=== PATIENT | female | born 1935 | race Caucasian/White ===

== ENCOUNTER 2021-11-26 17:29 | Inpatient (IN) | payer MEDICARE, SELFPAY ==
--- NOTE | ~2021-11-26 | CT_ITS ---
EXAMINATION: CT ABDOMEN AND PELVIS WITH CONTRAST CLINICAL INFORMATION: Right upper quadrant and right lower quadrant tenderness. Fever. Biliary disease. Appy. COMPARISON: 01/22/2020 TECHNIQUE: Multidetector volumetric images were obtained from the superior aspect of the liver through the pubic symphysis following administration 85 mL of Omnipaque 350 intravenous contrast. Sagittal and coronal reformatted images were obtained on the technologist's workstation. Oral contrast: No This CT examination was performed using dose optimization techniques as appropriate, variously including the following: *Automated exposure control *Adjustment of mA and/or kV according to patient size (this includes techniques or standardized protocols for targeted exams where dose is matched to indication/reason for exam; i.e. extremities or head) *Use of iterative reconstruction technique DLP: 1050 mGy-cm FINDINGS: LUNG BASES: The visualized lung bases are unremarkable. LIVER, GALLBLADDER, AND BILIARY TREE: Irregular hepatic contour suggests cirrhosis. No focal lesion seen. Status post cholecystectomy. No biliary ductal dilatation. PANCREAS: Pancreatic atrophy. SPLEEN: Unremarkable. ADRENAL GLANDS: Diffuse thickening of the left adrenal gland. Normal right adrenal gland. KIDNEYS AND URETERS: Bilateral renal cysts; no imaging follow-up recommended. No hydronephrosis or calculi. No solid renal mass. BLADDER: Bladder is collapsed with irregular wall thickening likely due to underdistention. GASTROINTESTINAL TRACT: Moderate sized hiatal hernia. The majority of the stomach is in the chest. Small bowel is nondilated. The appendix is not seen but there are no right lower quadrant inflammatory changes to suggest appendicitis. Diffuse diverticulosis greatest in the sigmoid colon with a large diverticulum of the anterior aspect of the proximal sigmoid colon. There are areas of wall thickening suggesting muscular hypertrophy but no pericolonic fluid or fat stranding. ABDOMINAL WALL: Tiny fat-containing umbilical hernia. LYMPH NODES: Normal. VASCULAR: Normal caliber aorta. Moderate calcified atherosclerotic changes. PELVIC VISCERA: Uterus not seen, presumably surgically absent. No adnexal mass. OSSEOUS STRUCTURES: Multilevel degenerative changes. Hemangiomas in L1 and T11. CT/CT abdomen pelvis w con IMPRESSION: No acute CT findings. Status post cholecystectomy. No biliary ductal dilatation. The appendix is not seen but there are no right lower quadrant inflammatory changes to suggest appendicitis. Fleischner guidelines were followed.
--- NOTE | ~2021-11-26 | CT_ITS ---
EXAMINATION: CT ANGIOGRAM OF THE CHEST WITH AND WITHOUT CONTRAST (CT PULMONARY ANGIOGRAM FOR PE) CLINICAL INFORMATION: Shortness of breath, hypoxic. COMPARISON: Chest radiograph dated from 11/30/2021. TECHNIQUE: Prior to contrast administration, noncontrast localization images were obtained. Subsequently, multidetector volumetric imaging was performed from the thoracic inlet to below the diaphragms following the administration of 71 mL Omnipaque 350 intravenous contrast. No contrast reaction reported Sagittal, coronal, and MIP oblique sagittal reformatted images were obtained on the CT workstation, uploaded to PACS, and reviewed. This CT examination was performed using dose optimization techniques as appropriate, variously including the following: *Automated exposure control *Adjustment of mA and/or kV according to patient size (this includes techniques or standardized protocols for targeted exams where dose is matched to indication/reason for exam; i.e. extremities or head) *Use of iterative reconstruction technique Total exam dose-length product 341 mGy-cm FINDINGS: QUALITY OF STUDY/CONTRAST BOLUS: Suboptimal. PULMONARY ARTERIES: The attenuation achieved within the pulmonary arteries is decreased when compared to the attenuation of the aorta and its branches which makes essentially evaluation of segmental and subsegmental pulmonary emboli nondiagnostic. Similarly, evaluation of small central pulmonary emboli is limited. However, accounting for limitations, no gross central emboli are identified. THORACIC AORTA: Atherosclerotic disease. No aneurysm or dissection. LUNG: Large hiatal hernia with compressive atelectasis of the right greater than left lung bases. Low lung volumes with streaky opacities dependently and very mild mosaic attenuation bilaterally favoring to represent subsegmental atelectasis and some degree of minimal air trapping. Early paraseptal emphysematous changes with biapical pleural thickening/scarring, for instance measuring up to 1 cm on image 61 of series 7. Evaluation of pulmonary nodules is limited by motion. However, accounting for these limitations, several subcentimeter pulmonary nodules are identified. For instance (series 7): 0.2 cm right apical nodule, image 48. 0.3 cm right apical nodule, image 55. 0.3 cm anterior right upper lobe pulmonary nodule, image 110. 0.4 cm left upper lobe pulmonary nodule versus septal thickening, image 81. 0.2 cm left upper lobe pulmonary nodules, image 88. 0.5 cm pulmonary nodule posteriorly in the left upper lobe, image 100. The central airways are patent. PLEURA: No pleural effusion or pneumothorax. MEDIASTINUM: Normal heart size without pericardial effusion. Coronary calcifications. No pathologically enlarged mediastinal calcified lymph nodes. No evidence of septal bowing or right heart strain. Normal appearance of the thyroid gland. CHEST WALL/AXILLA: No axillary or internal mammary lymphadenopathy. OSSEOUS STRUCTURES: Thoracic spondylosis with multiple vertebral hemangiomas. No acute or suspicious osseous abnormalities. UPPER ABDOMEN: Nodular contour of the liver suggesting cirrhosis. Cholecystectomy. Partially visualized water density cysts in the right kidney. No reflux of contrast into the hepatic veins to suggest elevated right heart pressures. CT/CT angio chest PE protocol IMPRESSION: This examination is nondiagnostic for assessment of segmental and subsegmental pulmonary emboli as above. Similarly, evaluation of small central emboli is limited. No large central emboli are identified. If indicated, consider repeat examination. Large hiatal hernia. Emphysematous changes with multiple subcentimeter pulmonary nodules, the largest in the left upper lobe measuring up to 0.5 cm. If there is no known prior history of cancer, these could be follow-up following Fleischner's Society recommendations (see below). Cirrhotic liver morphology. VTE: indeterminate 2017 Fleischner Society Recommendations for Lung Nodule(s): Follow-Up based on size (average of long- and short-axis diameters). Use most suspicious nodule for followup. Multiple Solid lung nodules < 6 mm: Follow up management based on most suspicious nodule. In a low-risk patient, no routine follow-up imaging is recommended. In a high-risk patient, a non-contrast Chest CT at 12 months is optional. If performed and the nodule is stable at 12 months, no further follow-up is recommended. These guidelines do not apply to patients younger than 35 years, immunocompromised patients, and patients with cancer. F/u in patients with significant comorbidities as clinically warranted. For lung cancer screening, adhere to Lung-RADS guidelines. Reference: Radiology. 2017 [place]; 284(1):228-243
--- NOTE | ~2021-11-26 | CT_ITS ---
CT head/brain wo con CLINICAL INFORMATION: Reason for Exam fall in the ED COMPARISON: No prior CT scan available for comparison. TECHNIQUE: Department standard protocol. This CT examination was performed using dose optimization techniques as appropriate, variously including the following: *Automated exposure control *Adjustment of mA and/or kV according to patient size (this includes techniques or standardized protocols for targeted exams where dose is matched to indication/reason for exam; i.e. extremities or head) *Use of iterative reconstruction technique DLP: 1233 mGy-cm FINDINGS: CEREBRAL HEMISPHERES: There is no evidence of intra-axial or extra-axial mass, hemorrhage or acute infarct. BRAIN PARENCHYMA: Normal fuentes-white matter differentiation. SUBDURAL SPACE: No bleed. BASAL GANGLIA AND PINEAL GLAND: Unremarkable VENTRICLES: Symmetric and normal in size. CEREBELLUM AND BRAINSTEM: No space-occupying mass, hemorrhage or acute infarct. CEREBELLOPONTINE ANGLES: No lesion found. ORBITS: No intraorbital mass. VESSELS: Bilaterally dense MCA's, this is likely vascular, SKULL BASE: Unremarkable INCLUDED SINUSES AT SKULL BASE: Clear SKULL AND SKIN: No fracture or bone lesion found. CT/CT head/brain wo con IMPRESSION: No CT evidence of intracranial bleed. No skull fracture.
--- NOTE | ~2021-11-26 | XR_ITS ---
EXAMINATION: XR CHEST CLINICAL INFORMATION: Covid positive. Decreasing oxygen levels. COMPARISON: Previous chest x-ray most recent October 2021 TECHNIQUE: Frontal view of the chest was obtained. FINDINGS: The cardiac silhouette does not appear enlarged. There is a density that projects over the heart is stable and probably represents an esophageal hernia. Hilar and mediastinal contours are otherwise unremarkable. The lungs are clear. There is no pleural effusion or pneumothorax. Visualized bony structures are unremarkable. XR/XR chest 1V IMPRESSION: No evidence for acute disease in the chest.
--- NOTE | ~2021-11-26 | CT_ITS ---
EXAMINATION: CT CERVICAL SPINE WITHOUT CONTRAST CLINICAL INFORMATION: Fall COMPARISON: None TECHNIQUE: CT cervical spine Department's standard protocol noncontrast study. This CT examination was performed using dose optimization techniques as appropriate, variously including the following: *Automated exposure control *Adjustment of mA and/or kV according to patient size (this includes techniques or standardized protocols for targeted exams where dose is matched to indication/reason for exam; i.e. extremities or head) *Use of iterative reconstruction technique DLP: 484 mGy-cm FINDINGS: 7 cervical vertebrae identified maintaining a proper height and alignments. Visualized structures at skull base are intact. Linear density left lung apex probably a scar. Paravertebral soft tissues unremarkable. 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 Spinal levels: C2-C3: Bilateral mild facet joints arthropathy. No fracture. C3-C4: Bilateral facet joints arthropathy. No fracture. C4-C5: Degenerative disc disease, facet joints arthropathy, no fracture, no central or foraminal stenosis. C5-C6: Degenerative disc disease, mild facet joints arthropathy, no osseous a stenosis of central canal or neural foramen. No fracture. C6-C7: Degenerative disc disease and facet joints arthropathy, no osseous a stenosis of central canal or foramen. No fracture. C7-T1: Degenerative disc disease. No fracture. CT/CT cervical spine wo con IMPRESSION: No evidence of acute fracture. Degenerative disc disease and facet joints arthropathy at all levels. Early advanced arthritis left TMJ. Fleischner guidelines were followed.
--- NOTE | ~2021-11-26 | XR_ITS ---
EXAMINATION: XR CHEST CLINICAL INFORMATION: Fever, weakness, rule out pneumonia COMPARISON: 01/09/2019 TECHNIQUE: Frontal view of the chest was obtained. FINDINGS: Moderate-sized hiatal hernia. Calcified aortic arch. Normal heart size. There is coarse interstitial prominence, new/increased from prior studies. No focal consolidation or mass. No pleural effusion or pneumothorax. XR/XR chest 1V IMPRESSION: No focal consolidation to suggest pneumonia. Coarse interstitial prominence, new/increased from prior studies. This could reflect bronchitis or less likely interstitial pneumonitis. The appearance is not strongly suggestive of viral COVID pneumonitis.
--- NOTE | ~2021-11-26 | XR_ITS ---
EXAMINATION: XR HIP, BILATERAL , AP pelvis CLINICAL INFORMATION: Fall COMPARISON: None available at the time of this dictation. TECHNIQUE: Frontal and lateral views of the hip acquired. , AP pelvis FINDINGS: There is no evidence of acute fracture or dislocation. There are mild degenerative arthritic changes of the hip evident by sclerotic changes of the acetabular roof and narrowing of the joint space. Mild degenerative changes of the symphysis pubis. Mild degenerative changes of the SI joints. Adjacent pubic rami are intact. Surrounding soft tissues are unremarkable. XR/XR hip BI w PEL1V IMPRESSION: Mild degenerative arthritis. Note: Normal radiograph does not entirely exclude the possibility of hip fracture or bone contusions. If there is high clinical suspicion or if patient symptoms persist for longer period, then MRI might be utilized for further investigation.
[2021-11-26 17:54] VITALS: BP 126/90; BP 146/72; PULSE 81; PULSE 86; RESP 22; TEMP 38.8; O2SAT 94; O2SAT 96; BMI 31.3
--- NOTE | 2021-11-26 18:05 | ECG_ITS ---
Test Reason : WEAKNESS Blood Pressure : / mmHG Vent. Rate : 081 BPM Atrial Rate : 081 BPM P-R Int : 176 ms QRS Dur : 102 ms QT Int : 422 ms P-R-T Axes : 058 -02 069 degrees QTc Int : 490 ms Normal sinus rhythm Low voltage QRS Prolonged QT Abnormal ECG When compared with ECG of 16-JUL-2019 12:15, No significant change was found Referred By: Dave Arvizu Electronically Signed By:Surendra Sanches
--- NOTE | 2021-11-26 18:08 | ED.WEAKNESS ---
HPI - Weakness General Chief complaint: Weakness <Dave Arvizu MD - Last Filed: 11/26/21 18:55> Stated complaint: WEAKNESS <Dave Arvizu MD - Last Filed: 11/26/21 18:55> Time Seen by Provider: 11/26/21 17:44 <Dave Arvizu MD - Last Filed: 11/26/21 18:55> Source: family (Elena Hurtado, granddaughter, ) <Dave Arvizu MD - Last Filed: 11/26/21 18:55> Mode of arrival: EMS <Dave Arvizu MD - Last Filed: 11/26/21 18:55> Limitations: language barrier (Guyanese speaking, foundry worker general used) and altered mental status (Dementia) <Dave Arvizu MD - Last Filed: 11/26/21 18:55> History of Present Illness HPI Narrative: 86-year-old female who was sent to the emergency department for evaluation of weakness. Patient has dementia and information was obtained from her granddaughter, Elena. Elena's states that the patient had a normal day yesterday, she is able to walk any eat in interact normally. The patient lives with her son. Apparently, the patient woke up 2-3 times in the middle the night which was unusual for her. This morning the patient was very weak and was unable to get out of bed. The patient's granddaughter son had to help her get out of bed and older not been ordered to get her dressed which is unusual. The patient complained of dizziness. She had no appetite and did not want to eat or drink. The patient continued to be weak throughout the day and the granddaughter was concerned that the patient was getting dehydrated therefore she called an ambulance and had the patient brought to the emergency department for evaluation. On presentation the patient was found to have a fever 101.8? F. The patient received the Moderna COVID-19 vaccine x2 shots, she has not had her booster shot. <Dave Arvizu MD - Last Filed: 11/26/21 18:55> Related Data Home medications: Home Medications Medication Instructions Recorded Confirmed amlodipine 5 mg tablet 1 tab PO DAILY 11/27/21 11/27/21 ascorbic acid (vitamin C) 500 mg 1 tab PO BID 11/27/21 11/27/21 tablet (Vitamin C) aspirin 81 mg tablet,delayed 1 tab PO DAILY 11/27/21 11/27/21 release atorvastatin 20 mg tablet 1 tab PO DAILY 11/27/21 11/27/21 calcium carbonate 600 mg-vitamin 1 tab PO BID 11/27/21 11/27/21 D3 5 mcg (200 unit) tablet (Calcium 600 + D(3)) cetirizine 5 mg tablet 1 tab PO DAILY 11/27/21 11/27/21 donepezil 10 mg tablet 1 tab PO DAILY 11/27/21 11/27/21 ferrous sulfate 325 mg (65 mg 1 tab PO BID 11/27/21 11/27/21 iron) tablet,delayed release fluoxetine 40 mg capsule 1 cap PO BEDTIME 11/27/21 11/27/21 fluticasone propionate 50 1 spray INTRANASAL DAILY 11/27/21 11/27/21 mcg/actuation nasal spray,suspension furosemide 20 mg tablet 1 tab PO DAILY 11/27/21 11/27/21 haloperidol lactate 2 mg/mL oral 1 mg PO QPM 11/27/21 11/29/21 concentrate lisinopril 20 mg tablet 1 tab PO DAILY 11/27/21 11/27/21 memantine 10 mg tablet 1 tab PO BID 11/27/21 11/27/21 mirabegron 50 mg tablet,extended 1 tab PO DAILY 11/27/21 11/27/21 release 24 hr (Myrbetriq) mirtazapine 15 mg tablet 1 tab PO BEDTIME 11/27/21 11/27/21 montelukast 10 mg tablet 1 tab PO DAILY 11/27/21 11/27/21 omeprazole 40 mg capsule,delayed 1 cap PO DAILY 11/27/21 11/27/21 release trazodone 50 mg tablet 1 tab PO BEDTIME 11/27/21 11/27/21 <Dave Arvizu MD - Last Filed: 11/26/21 18:55> Allergies/Adverse reactions: Allergies Allergy/AdvReac Type Severity Reaction Status Date / Time ceftazidime [Ceftazidime] Allergy Mild UNKNOWN Unverified 08/13/20 15:10 benzocaine [Benzocaine] Allergy Unknown UNKNOWN Unverified 08/13/20 15:10 butamben [From Cetacaine] Allergy Unknown UNKNOWN Unverified 08/13/20 15:10 metoclopramide [From Reglan] Allergy Unknown UNKNOWN Unverified 08/13/20 15:10 morphine [Morphine] Allergy Unknown SWELLING Unverified 08/13/20 15:10 tetracaine [From Cetacaine] Allergy Unknown UNKNOWN Unverified 08/13/20 15:10 <Dave Arvizu MD - Last Filed: 11/26/21 18:55> Review of Systems Review of Systems: Yes Unobtainable due to mental status (Dementia) <Dave Arvizu MD - Last Filed: 11/26/21 18:55> [facility] Past Medical History [facility] Narrative: Past medical history: Hypertension, kidney disease, dementia, non alcoholic cirrhosis of the liver, stroke 10 years prior and TIAs. Surgical history hernia repair. Social history: The patient lives with her son. Patient is a former smoker and stop smoking 20 years prior. The patient does not drink alcohol. Patient does not use drugs. <Dave Arvizu MD - Last Filed: 11/26/21 18:55> Social History Social History: Social History Alcohol intake: unknown Patient Tobacco Use Status: Tobacco use Unknown Use of substances other than those prescribed or required for medical reasons: Unknown Advance Directives: No Advance Directives Information Provided: No <Dave Arvizu MD - Last Filed: 11/26/21 18:55> Physical Exam Vital Signs: Vital Signs: Last Vital Signs Temp 98.6 F 12/01/21 20:38 Pulse 69 12/02/21 00:07 Resp 16 12/02/21 00:07 BP 123/57 L 12/02/21 00:07 Pulse Ox 97 12/02/21 00:07 BMI result Body Mass Index 31.3 <Dave Arvizu MD - Last Filed: 11/26/21 18:55> Vital Signs: Last Vital Signs Temp 98.6 F 12/01/21 20:38 Pulse 69 12/02/21 00:07 Resp 16 12/02/21 00:07 BP 123/57 L 12/02/21 00:07 Pulse Ox 97 12/02/21 00:07 BMI result Body Mass Index 31.3 <Fly Cummins MD - Last Filed: 11/26/21 22:18> Vital Signs: Last Vital Signs Temp 98.6 F 12/01/21 20:38 Pulse 69 12/02/21 00:07 Resp 16 12/02/21 00:07 BP 123/57 L 12/02/21 00:07 Pulse Ox 97 12/02/21 00:07 BMI result Body Mass Index 31.3 <JOJO Alcazar - Last Filed: 11/27/21 09:44> Vital Signs: Last Vital Signs Temp 98.6 F 12/01/21 20:38 Pulse 69 12/02/21 00:07 Resp 12/02/21 00:07 BP 123/57 L 12/02/21 00:07 Pulse Ox 97 12/02/21 00:07 BMI result Body Mass Index 31.3 <Kamron Thrasher MD - Last Filed: 11/27/21 15:09> Vital Signs: Last Vital Signs Temp 98.6 F 12/01/21 20:38 Pulse 69 12/02/21 00:07 Resp 12/02/21 00:07 BP 123/57 L 12/02/21 00:07 Pulse Ox 97 12/02/21 00:07 BMI result Body Mass Index 31.3 <Yinka Weiss MD - Last Filed: 11/29/21 08:56> Vital Signs: Last Vital Signs Temp 98.6 F 12/01/21 20:38 Pulse 69 12/02/21 00:07 Resp 12/02/21 00:07 BP 123/57 L 12/02/21 00:07 Pulse Ox 97 12/02/21 00:07 BMI result Body Mass Index 31.3 <Linh Simpson DO - Last Filed: 11/30/21 14:37> Vital Signs: Last Vital Signs Temp 98.6 F 12/01/21 20:38 Pulse 69 12/02/21 00:07 Resp 16 12/02/21 00:07 BP 123/57 L 12/02/21 00:07 Pulse Ox 97 12/02/21 00:07 BMI result Body Mass Index 31.3 <JOJO Hester - Last Filed: 12/01/21 19:02> Vital Signs: Last Vital Signs Temp 98.6 F 12/01/21 20:38 Pulse 69 12/02/21 00:07 Resp 16 12/02/21 00:07 BP 123/57 L 12/02/21 00:07 Pulse Ox 97 12/02/21 00:07 BMI result Body Mass Index 31.3 <JOJO March - Last Filed: 12/02/21 00:44> Const: General: cooperative and no acute distress <Dave Arvizu MD - Last Filed: 11/26/21 18:55> Orientation/consciousness: oriented to person and oriented to place <Dave Arvizu MD - Last Filed: 11/26/21 18:55> Limitations: no limitations <Dave Arvizu MD - Last Filed: 11/26/21 18:55> HENMT: Head: Yes normal to inspection, Yes normocephalic and Yes atraumatic <Dave Arvizu MD - Last Filed: 11/26/21 18:55> Ears: external ears normal <Dave Arvizu MD - Last Filed: 11/26/21 18:55> General nose exam: Normal external nose present <Dave Arvizu MD - Last Filed: 11/26/21 18:55> Face and sinus: Yes normal facial exam <Dave Arvizu MD - Last Filed: 11/26/21 18:55> Mouth: Normal oral and palatal mucosa present <Dave Arvizu MD - Last Filed: 11/26/21 18:55> Throat: Yes posterior oropharynx normal <Dave Arvizu MD - Last Filed: 11/26/21 18:55> Eyes: General: appearance normal, both eyes and all related structures <Dave Arvizu MD - Last Filed: 11/26/21 18:55> Pupils: Equal, round and reactive pupils present <Dave Arvizu MD - Last Filed: 11/26/21 18:55> Neck: Neck: Yes normal visual inspection, Yes no lymphadenopathy, Yes trachea midline and Yes supple <Dave Arvizu MD - Last Filed: 11/26/21 18:55> Chest: Chest palpation & inspection: normal inspection of the chest and normal palpation of entire chest wall <Dave Arvizu MD - Last Filed: 11/26/21 18:55> Resp: Effort & Inspection: normal respiratory effort and able to speak in complete sentences <Dave Arvizu MD - Last Filed: 11/26/21 18:55> Auscultation: wheezes (At bases) <Dave Arvizu MD - Last Filed: 11/26/21 18:55> Cardio: Rate: regular rate <Dave Arvizu MD - Last Filed: 11/26/21 18:55> Rhythm: regular rhythm <MD Christie Gaytan Last Filed: 11/26/21 18:55> Heart sounds: S1 normal heart sound present, S2 normal heart sound present and no murmurs <MD Christie Gaytan Last Filed: 11/26/21 18:55> GI: Inspection: Yes normal to inspection <MD Christie Gaytan Last Filed: 11/26/21 18:55> Palpation (GI): Soft to palpation, Tenderness to palpation present (GI) in the RLQ (Moderate), in the RUQ (Moderate) and suprapubicly (Mild) and no guarding <Dave Arvizu MD - Last Filed: 11/26/21 18:55> Auscultation: normal bowel sounds <MD Christie Gaytan Last Filed: 11/26/21 18:55> : General: Yes no CVA tenderness <Dave Arvizu MD - Last Filed: 11/26/21 18:55> Back/Spine/Pelvis: Back: no CVA tenderness <MD Christie Gaytan Last Filed: 11/26/21 18:55> Skin: General skin exam: no rashes or lesions noted <MD Christie Gaytan Last Filed: 11/26/21 18:55> Neuro: General: oriented to person and oriented to place <MD Christie Gaytan Last Filed: 11/26/21 18:55> Cranial nerves: Yes CN's II-XII intact bilaterally and Yes Equal, round and reactive pupils present <Dave Arvizu MD - Last Filed: 11/26/21 18:55> Cognition (Neuro): normal cognition <Dave Arvizu MD - Last Filed: 11/26/21 18:55> Motor exam (neuro): 5/5 motor strength present throughout <Dave Arvizu MD - Last Filed: 11/26/21 18:55> Extrem: General: Yes normal to inspection <Dave Arvizu MD - Last Filed: 11/26/21 18:55> Psych: Appearance: grossly normal <Dave Arvizu MD - Last Filed: 11/26/21 18:55> Speech and movement: Normal speech and movement present <Dave Arvizu MD - Last Filed: 11/26/21 18:55> Affect: normal affect <Dave Arvizu MD - Last Filed: 11/26/21 18:55> Attitude: cooperative <Dave Arvizu MD - Last Filed: 11/26/21 18:55> Thought process: Normal thought process present <Dave Arvizu MD - Last Filed: 11/26/21 18:55> Thought content: Normal thought content present <Dave Arvizu MD - Last Filed: 11/26/21 18:55> Course Course Course Narrative: 86-year-old female sent to emergency department by her family for evaluation of weakness which is unusual for the patient. According to the family the patient got up multiple times during the night and this morning was unable to get out of bed secondary to weakness. This persisted throughout the day and the family was concerned about dehydration and sent the patient to the emergency department by ambulance. On presentation the patient did have a fever of 101.8 with an elevated respiratory rate of 22. Her examination did reveal right upper quadrant right lower quadrant and suprapubic tenderness. I ordered a laboratory evaluation includes CBC, CMP, lipase, lactate, blood cultures x2, PT/INR, PTT, urinalysis. Given her tenderness is CT scan of the abdomen pelvis with IV contrast was also ordered. I was concerned the patient may have an intra-abdominal infection therefore she was ordered to get Zosyn 3.375 mg IV. 0652: Laboratory evaluation: Platelet count was low 126,000, this is chronic. Bicarb was elevated at 30, BUN was elevated 19 with a creatinine of 1.37 with a creatinine clearance of 33.5. Glucose was elevated at 143. AST and ALT will elevated 137 and 108, troponin was elevated 30.3. Lipase was normal. Urinalysis revealed trace blood. Microscopic is pending. COVID-19/influenza/RSV is pending. The patient does have nonalcoholic cirrhosis of the liver with no recent LFTs in our record. However given her right upper quadrant tenderness I am concerned that she may have acute cholangitis verses biliary disease as the cause of severe abdominal pain. CT scan of the abdomen pelvis is pending. At the end of my shift, the patient's care was turned over to my colleague, Dr. Ray. <Dave Arvizu MD - Last Filed: 11/26/21 18:55> 86-year-old female sent to emergency department by her family for evaluation of weakness which is unusual for the patient. According to the family the patient got up multiple times during the night and this morning was unable to get out of bed secondary to weakness. This persisted throughout the day and the family was concerned about dehydration and sent the patient to the emergency department by ambulance. On presentation the patient did have a fever of 101.8 with an elevated respiratory rate of 22. Her examination did reveal right upper quadrant right lower quadrant and suprapubic tenderness. I ordered a laboratory evaluation includes CBC, CMP, lipase, lactate, blood cultures x2, PT/INR, PTT, urinalysis. Given her tenderness is CT scan of the abdomen pelvis with IV contrast was also ordered. I was concerned the patient may have an intra-abdominal infection therefore she was ordered to get Zosyn 3.375 mg IV. 0652: Laboratory evaluation: Platelet count was low 126,000, this is chronic. Bicarb was elevated at 30, BUN was elevated 19 with a creatinine of 1.37 with a creatinine clearance of 33.5. Glucose was elevated at 143. AST and ALT will elevated 137 and 108, troponin was elevated 30.3. Lipase was normal. Urinalysis revealed trace blood. Microscopic is pending. COVID-19/influenza/RSV is pending. The patient does have nonalcoholic cirrhosis of the liver with no recent LFTs in our record. However given her right upper quadrant tenderness I am concerned that she may have acute cholangitis verses biliary disease as the cause of severe abdominal pain. CT scan of the abdomen pelvis is pending. At the end of my shift, the patient's care was turned over to my colleague, Dr. Ray. 11/30/21 1259pm observation ended as the patient is being placed for COVID + but today she became more hypoxic 88% on RA, at this time states they cannot place her due to new O2 requirements, IV steroids ordered, from what I can gather she is vaccinted x 2, symptoms started 11/25 came here weak with fever 11/26 <Linh Simpson DO - Last Filed: 11/30/21 14:37> Reevaluation(s) Reevaluation #1: Physician observation continues. Patient is COVID positive. She lives alone and does not have any help from her family. She needs case management. Labs, urine, COVID test positive On exam, lungs clear to auscultation bilaterally, vital signs are stable, patient is not tachycardic or hypoxic. Patient, cooperative, awaiting Case Management for disposition, case management to re-evaluate this morning <JOJO Alcazar - Last Filed: 11/27/21 09:44> Time: 09:41 <JOJO Alcazar - Last Filed: 11/27/21 09:44> Reevaluation #2: I was called to room 12 were the patient fell of the bed because the patient was found face down on the floor unclear mechanism of fall, patient is complaining of pelvic pain, small laceration under right eye ball. Patient was GCS of 15. Will obtain CT head/C-spine/pelvic/bilateral hip x-ray. <Kamron Thrasher MD - Last Filed: 11/27/21 15:09> Time: 13:37 <Kamron Thrasher MD - Last Filed: 11/27/21 15:09> Time: 08:43 <Yinka Weiss MD - Last Filed: 11/29/21 08:56> Additional Reevaluation(s): Pt is currently stable was signed out by Dr nichole overnight ,the pt is waiting for placement to [place] for multiple falls <Yinka Weiss MD - Last Filed: 11/29/21 08:56> Consultations Consultation #1: Nov 29 2021,pt is under physician OBS status,remain stable clinically eating breakfast this am in no distress waiting for rn case mgr <Yinka Weiss MD - Last Filed: 11/29/21 08:56> Consultation #3: 86-year-old female who was sent to the emergency department by her family for evaluation of weakness which began today. According to the family the patient had a normal day yesterday, she is able to eat, drink and walk without any difficulty. She was awake several times during the pharmacy intake technician which is unusual for her when she woke up this morning she was too weak to get out of bed. The patient's symptoms did not improve and she remained weak throughout the day, the granddaughter was concerned that the patient was getting dehydrated and had the patient transported to the emergency department for evaluation. On presentation, the patient had an elevated respiratory rate of 22 and a elevated temperature of a 101.8? F. O2 saturation was 94% on room air. Physical examination did reveal right upper quadrant right lower quadrant tenderness as well as suprapubic tenderness. Concerned the patient may have an infectious process as the cause of her weakness, differential includes but is not limited to COVID-19 infection, biliary infection, appendicitis, urinary tract infection, pneumonia. I did order a CBC, CMP, lipase, PT/INR, PTT, urinalysis, chest x-ray, CT scan of the abdomen pelvis with IV contrast, normal saline x1 L. blood cultures x2 will be treated the patient will be given Zosyn 3.375 mg IV . 1820: At the end of my shift the patient's workup is pending, the patient's care was turned over to my colleague, Dr. Ray. <Dave Arvizu MD - Last Filed: 11/26/21 18:55> Additional Consultation(s): Nov. Dimer elevated CTA ordered, limited they recommend a repeat scan. Will hydrate patient and rescan in the AM to r/o PE/ other etiologies to explain previous hypoxia. Patient requiring 2L known covid + as of 11/26/2021. Comunicated this w/ brandon URIBE. <JOJO Hester - Last Filed: 12/01/21 19:02> Nov. Dimer elevated CTA ordered, limited they recommend a repeat scan. Will hydrate patient and rescan in the AM to r/o PE/ other etiologies to explain previous hypoxia. Patient requiring 2L known covid + as of 11/26/2021. Comunicated this w/ brandon URIBE. December 02 2021; case discussed with Dr. Abrams hospitalist who agrees patient should be admitted for COVID hypoxia. He does not recommend repeat Chest CTA. He will start patient on Lovenox. <JOJO March - Last Filed: 12/02/21 00:44> MDM - Weakness MDM Narrative Medical decision making narrative: Patient lives alone came here for increased weakness for last 2 days with fever no shortness of breath no nausea no vomiting patient not eating well and able to function because of weakness. Lab workup showed COVID-19 positive all the patient was vaccinated saturating 94% at room air. Case discussed with patient family unable to help her out because she lives alone. CT abdomen negative chest x-ray negative, Will get case management involved for placement <Fly Cummins MD - Last Filed: 11/26/21 22:18> Lab Data Attestation: I reviewed the patient's lab results. <Fly Cummins MD - Last Filed: 11/26/21 22:18> Result diagrams: : 12/01/21 11:39 12/01/21 11:39 <Dave Arvizu MD - Last Filed: 11/26/21 18:55> Labs: Lab Results 11/26/21 11/26/21 11/26/21 Range/Units 18:17 18:17 18:17 WBC 5.6 (4.8-10.8) X10*3/uL RBC 4.33 (4.20-5.50) X10*6/uL Hgb 12.8 (12.0-16.0) g/dl Hct 39.4 (37.0-47.0) % MCV 91.0 (80.0-98.0) fL MCH 29.6 (27.0-33.0) pg MCHC 32.5 (31.0-35.0) g/dl RDW 14.6 (11.0-16.0) % Plt Count 126 L (160-400) X10*3/uL MPV 10.9 (9.4-12.3) fL Immature Gran % (Auto) 0.5 H (0.0-0.4) % Neut % (Auto) 80.3 H (45-73) % Lymph % (Auto) 6.6 L (20-40) % Dick[place] % (Auto) 12.0 H (2-11) % Eos % (Auto) 0.4 (0-4) % Baso % (Auto) 0.2 (0-2) % Lymph # (Auto) 0.4 L (1.2-4.9) X10*3/uL [place]enson # (Auto) 0.7 (0.1-1.2) X10*3/uL Eos # (Auto) 0.0 (0.0-0.4) X10*3/uL Baso # (Auto) 0.0 (0.0-0.2) X10*3/uL Abs Immat Gran (auto) 0.03 (0.00-0.03) X10*3/uL Absolute Neuts (auto) 4.5 (2.0-8.3) x10*3/uL Absolute Nucleated RBC 0.000 (0.0-0.012) X10*3/uL Nucleated RBC % (auto) 0.0 (0.0-0.2) /100WBC PT (9.9-13.0) SEC INR (0.9-1.1) APTT (24.1-38.0) SEC D-Dimer High Sensitivty NG/ML Sodium 143 (135-145) mmol/L Potassium 3.7 (3.3-5.1) mmol/L Chloride 106 (96-108) mmol/L Carbon Dioxide 30 H (22-29) mmol/L Anion Gap 11 L (12-20) BUN 19 H (9-16) mg/dL Creatinine 1.37 (0.5-1.4) mg/dL Estim Creat Clear Calc 33.5 Estimated GFR 37 POC Glucose (60-115) mg/dL Random Glucose 143 H (60-115) mg/dL Lactic Acid (0.5-2.0) mmol/L Calcium 10.0 (8.4-10.2) mg/dL Ferritin (10-250) ng/mL Total Bilirubin 0.7 (0.0-1.0) mg/dL AST 137 H (5-31) U/L ALT 108 H (0-31) U/L Alkaline Phosphatase 121 H (39-117) U/L Lactate Dehydrogenase (122-220) U/L Troponin I High Sens (<3.5-17.0) ng/L B-Natriuretic Peptide Total Protein 7.6 (6.5-8.0) g/dL Albumin 4.1 (3.5-5.0) g/dL Lipase 38 (8-78) U/L Urine Color Urine Appearance Urine pH (5.0-8.0) Ur Specific [place] (1.005-1.025) Urine Protein (NEG-TRACE) MG/DL Urine Glucose (UA) (NEG) MG/DL Urine Ketones (NEG) MG/DL Urine Blood (NEG) Urine Nitrite (NEG) Ur Leukocyte Esterase (NEG) Urine RBC (0) /HPF Urine WBC (0-4) /HPF Ur Squamous Epith Cells /LPF Ur Renal Epithelial Cell /LPF Urine Bacteria /LPF Urine Mucus /LPF Influenza Type A (PCR) NEGATIVE (Negative) Influenza Type B (PCR) NEGATIVE (Negative) RSV RNA Qual (PCR) NEGATIVE (Negative) SARS-CoV-2 RNA (RT-PCR) POSITIVE A (Negative) 11/26/21 11/26/21 11/26/21 Range/Units 18:17 18:17 18:17 WBC (4.8-10.8) X10*3/uL RBC (4.20-5.50) X10*6/uL Hgb (12.0-16.0) g/dl Hct (37.0-47.0) % MCV (80.0-98.0) fL MCH (27.0-33.0) pg MCHC (31.0-35.0) g/dl RDW (11.0-16.0) % Plt Count (160-400) X10*3/uL MPV (9.4-12.3) fL Immature Gran % (Auto) (0.0-0.4) % Neut % (Auto) (45-73) % Lymph % (Auto) (20-40) % Dickenson % (Auto) (2-11) % Eos % (Auto) (0-4) % Baso % (Auto) (0-2) % Lymph # (Auto) (1.2-4.9) X10*3/uL [place] # (Auto) (0.1-1.2) X10*3/uL Eos # (Auto) (0.0-0.4) X10*3/uL Baso # (Auto) (0.0-0.2) X10*3/uL Abs Immat Gran (auto) (0.00-0.03) X10*3/uL Absolute Neuts (auto) (2.0-8.3) x10*3/uL Absolute Nucleated RBC (0.0-0.012) X10*3/uL Nucleated RBC % (auto) (0.0-0.2) /100WBC PT 11.9 (9.9-13.0) SEC INR 1.0 (0.9-1.1) APTT 30.3 (24.1-38.0) SEC D-Dimer High Sensitivty NG/ML Sodium (135-145) mmol/L Potassium (3.3-5.1) mmol/L Chloride (96-108) mmol/L Carbon Dioxide (22-29) mmol/L Anion Gap (12-20) BUN (9-16) mg/dL Creatinine (0.5-1.4) mg/dL Estim Creat Clear Calc Estimated GFR POC Glucose (60-115) mg/dL Random Glucose (60-115) mg/dL Lactic Acid (0.5-2.0) mmol/L Calcium (8.4-10.2) mg/dL Ferritin (10-250) ng/mL Total Bilirubin (0.0-1.0) mg/dL AST (5-31) U/L ALT (0-31) U/L Alkaline Phosphatase (39-117) U/L Lactate Dehydrogenase (122-220) U/L Troponin I High Sens 30.3 H (<3.5-17.0) ng/L B-Natriuretic Peptide Cancelled 69 Total Protein (6.5-8.0) g/dL Albumin (3.5-5.0) g/dL Lipase (8-78) U/L Urine Color Urine Appearance Urine pH (5.0-8.0) Ur Specific [place] (1.005-1.025) Urine Protein (NEG-TRACE) MG/DL Urine Glucose (UA) (NEG) MG/DL Urine Ketones (NEG) MG/DL Urine Blood (NEG) Urine Nitrite (NEG) Ur Leukocyte Esterase (NEG) Urine RBC (0) /HPF Urine WBC (0-4) /HPF Ur Squamous Epith Cells /LPF Ur Renal Epithelial Cell /LPF Urine Bacteria /LPF Urine Mucus /LPF Influenza Type A (PCR) (Negative) Influenza Type B (PCR) (Negative) RSV RNA Qual (PCR) (Negative) SARS-CoV-2 RNA (RT-PCR) (Negative) 11/26/21 11/26/21 11/27/21 Range/Units 18:18 18:43 13:36 WBC (4.8-10.8) X10*3/uL RBC (4.20-5.50) X10*6/uL Hgb (12.0-16.0) g/dl Hct (37.0-47.0) % MCV (80.0-98.0) fL MCH (27.0-33.0) pg MCHC (31.0-35.0) g/dl RDW (11.0-16.0) % Plt Count (160-400) X10*3/uL MPV (9.4-12.3) fL Immature Gran % (Auto) (0.0-0.4) % Neut % (Auto) (45-73) % Lymph % (Auto) (20-40) % Dickenson % (Auto) (2-11) % Eos % (Auto) (0-4) % Baso % (Auto) (0-2) % Lymph # (Auto) (1.2-4.9) X10*3/uL [place] # (Auto) (0.1-1.2) X10*3/uL Eos # (Auto) (0.0-0.4) X10*3/uL Baso # (Auto) (0.0-0.2) X10*3/uL Abs Immat Gran (auto) (0.00-0.03) X10*3/uL Absolute Neuts (auto) (2.0-8.3) x10*3/uL Absolute Nucleated RBC (0.0-0.012) X10*3/uL Nucleated RBC % (auto) (0.0-0.2) /100WBC PT (9.9-13.0) SEC INR (0.9-1.1) APTT (24.1-38.0) SEC D-Dimer High Sensitivty NG/ML Sodium (135-145) mmol/L Potassium (3.3-5.1) mmol/L Chloride (96-108) mmol/L Carbon Dioxide (22-29) mmol/L Anion Gap (12-20) BUN (9-16) mg/dL Creatinine (0.5-1.4) mg/dL Estim Creat Clear Calc Estimated GFR POC Glucose 134 H (60-115) mg/dL Random Glucose (60-115) mg/dL Lactic Acid 1.0 (0.5-2.0) mmol/L Calcium (8.4-10.2) mg/dL Ferritin (10-250) ng/mL Total Bilirubin (0.0-1.0) mg/dL AST (5-31) U/L ALT (0-31) U/L Alkaline Phosphatase (39-117) U/L Lactate Dehydrogenase (122-220) U/L Troponin I High Sens (<3.5-17.0) ng/L B-Natriuretic Peptide Total Protein (6.5-8.0) g/dL Albumin (3.5-5.0) g/dL Lipase (8-78) U/L Urine Color YELLOW Urine Appearance CLEAR Urine pH 6.0 (5.0-8.0) Ur Specific [place] 1.020 (1.005-1.025) Urine Protein NEG (NEG-TRACE) MG/DL Urine Glucose (UA) NEG (NEG) MG/DL Urine Ketones NEG (NEG) MG/DL Urine Blood TRACE (NEG) Urine Nitrite NEG (NEG) Ur Leukocyte Esterase NEG (NEG) Urine RBC 0-2 (0) /HPF Urine WBC 0 (0-4) /HPF Ur Squamous Epith Cells 2+ /LPF Ur Renal Epithelial Cell TRACE /LPF Urine Bacteria TRACE /LPF Urine Mucus 1+ /LPF Influenza Type A (PCR) (Negative) Influenza Type B (PCR) (Negative) RSV RNA Qual (PCR) (Negative) SARS-CoV-2 RNA (RT-PCR) (Negative) 11/30/21 11/30/21 12/01/21 Range/Units 13:37 13:37 11:39 WBC 4.6 L 5.5 (4.8-10.8) X10*3/uL RBC 4.52 4.43 (4.20-5.50) X10*6/uL Hgb 13.0 12.9 (12.0-16.0) g/dl Hct 40.7 40.6 (37.0-47.0) % MCV 90.0 91.6 (80.0-98.0) fL MCH 28.8 29.1 (27.0-33.0) pg MCHC 31.9 31.8 (31.0-35.0) g/dl RDW 14.5 14.3 (11.0-16.0) % Plt Count 139 L 137 L (160-400) X10*3/uL MPV 10.5 10.9 (9.4-12.3) fL Immature Gran % (Auto) 0.2 0.5 H (0.0-0.4) % Neut % (Auto) 61.8 78.5 H (45-73) % Lymph % (Auto) 22.4 13.7 L (20-40) % [place] % (Auto) 10.3 7.1 (2-11) % Eos % (Auto) 5.1 H 0.2 (0-4) % Baso % (Auto) 0.2 0.0 (0-2) % Lymph # (Auto) 1.0 L 0.8 L (1.2-4.9) X10*3/uL [place] # (Auto) 0.5 0.4 (0.1-1.2) X10*3/uL Eos # (Auto) 0.2 0.0 (0.0-0.4) X10*3/uL Baso # (Auto) 0.0 0.0 (0.0-0.2) X10*3/uL Abs Immat Gran (auto) 0.01 0.03 (0.00-0.03) X10*3/uL Absolute Neuts (auto) 2.8 4.3 (2.0-8.3) x10*3/uL Absolute Nucleated RBC 0.000 0.000 (0.0-0.012) X10*3/uL Nucleated RBC % (auto) 0.0 0.0 (0.0-0.2) /100WBC PT (9.9-13.0) SEC INR (0.9-1.1) APTT (24.1-38.0) SEC D-Dimer High Sensitivty NG/ML Sodium 142 (135-145) mmol/L Potassium 3.7 (3.3-5.1) mmol/L Chloride 108 (96-108) mmol/L Carbon Dioxide 28 (22-29) mmol/L Anion Gap 10 L (12-20) BUN 27 H (9-16) mg/dL Creatinine 1.18 (0.5-1.4) mg/dL Estim Creat Clear Calc 38.9 Estimated GFR 44 POC Glucose (60-115) mg/dL Random Glucose 116 H (60-115) mg/dL Lactic Acid (0.5-2.0) mmol/L Calcium 10.1 (8.4-10.2) mg/dL Ferritin 152 (10-250) ng/mL Total Bilirubin (0.0-1.0) mg/dL AST (5-31) U/L ALT (0-31) U/L Alkaline Phosphatase (39-117) U/L Lactate Dehydrogenase 199 (122-220) U/L Troponin I High Sens (<3.5-17.0) ng/L B-Natriuretic Peptide Total Protein (6.5-8.0) g/dL Albumin (3.5-5.0) g/dL Lipase (8-78) U/L Urine Color Urine Appearance Urine pH (5.0-8.0) Ur Specific [place] (1.005-1.025) Urine Protein (NEG-TRACE) MG/DL Urine Glucose (UA) (NEG) MG/DL Urine Ketones (NEG) MG/DL Urine Blood (NEG) Urine Nitrite (NEG) Ur Leukocyte Esterase (NEG) Urine RBC (0) /HPF Urine WBC (0-4) /HPF Ur Squamous Epith Cells /LPF Ur Renal Epithelial Cell /LPF Urine Bacteria /LPF Urine Mucus /LPF Influenza Type A (PCR) (Negative) Influenza Type B (PCR) (Negative) RSV RNA Qual (PCR) (Negative) SARS-CoV-2 RNA (RT-PCR) (Negative) 01/05/22 01/05/22 Range/Units 11:39 11:39 WBC (4.8-10.8) X10*3/uL RBC (4.20-5.50) X10*6/uL Hgb (12.0-16.0) g/dl Hct (37.0-47.0) % MCV (80.0-98.0) fL MCH (27.0-33.0) pg MCHC (31.0-35.0) g/dl RDW (11.0-16.0) % Plt Count (160-400) X10*3/uL MPV (9.4-12.3) fL Immature Gran % (Auto) (0.0-0.4) % Neut % (Auto) (45-73) % Lymph % (Auto) (20-40) % [place] % (Auto) (2-11) % Eos % (Auto) (0-4) % Baso % (Auto) (0-2) % Lymph # (Auto) (1.2-4.9) X10*3/uL [place] # (Auto) (0.1-1.2) X10*3/uL Eos # (Auto) (0.0-0.4) X10*3/uL Baso # (Auto) (0.0-0.2) X10*3/uL Abs Immat Gran (auto) (0.00-0.03) X10*3/uL Absolute Neuts (auto) (2.0-8.3) x10*3/uL Absolute Nucleated RBC (0.0-0.012) X10*3/uL Nucleated RBC % (auto) (0.0-0.2) /100WBC PT 11.4 (9.9-13.0) SEC INR 1.0 (0.9-1.1) APTT (24.1-38.0) SEC D-Dimer High Sensitivty 601 NG/ML Sodium 147 H (135-145) mmol/L Potassium 3.8 (3.3-5.1) mmol/L Chloride 108 (96-108) mmol/L Carbon Dioxide 31 H (22-29) mmol/L Anion Gap 12 (12-20) BUN 32 H (9-16) mg/dL Creatinine 1.19 (0.5-1.4) mg/dL Estim Creat Clear Calc 38.6 Estimated GFR 43 POC Glucose (60-115) mg/dL Random Glucose 133 H (60-115) mg/dL Lactic Acid (0.5-2.0) mmol/L Calcium 10.5 H (8.4-10.2) mg/dL Ferritin (10-250) ng/mL Total Bilirubin (0.0-1.0) mg/dL AST (5-31) U/L ALT (0-31) U/L Alkaline Phosphatase (39-117) U/L Lactate Dehydrogenase (122-220) U/L Troponin I High Sens (<3.5-17.0) ng/L B-Natriuretic Peptide Total Protein (6.5-8.0) g/dL Albumin (3.5-5.0) g/dL Lipase (8-78) U/L Urine Color Urine Appearance Urine pH (5.0-8.0) Ur Specific [place] (1.005-1.025) Urine Protein (NEG-TRACE) MG/DL Urine Glucose (UA) (NEG) MG/DL Urine Ketones (NEG) MG/DL Urine Blood (NEG) Urine Nitrite (NEG) Ur Leukocyte Esterase (NEG) Urine RBC (0) /HPF Urine WBC (0-4) /HPF Ur Squamous Epith Cells /LPF Ur Renal Epithelial Cell /LPF Urine Bacteria /LPF Urine Mucus /LPF Influenza Type A (PCR) (Negative) Influenza Type B (PCR) (Negative) RSV RNA Qual (PCR) (Negative) SARS-CoV-2 RNA (RT-PCR) (Negative) <Dave Arvizu MD - Last Filed: 11/26/21 18:55> Lab Results 11/26/21 11/26/21 11/26/21 Range/Units 18:17 18:17 18:17 WBC 5.6 (4.8-10.8) X10*3/uL RBC 4.33 (4.20-5.50) X10*6/uL Hgb 12.8 (12.0-16.0) g/dl Hct 39.4 (37.0-47.0) % MCV 91.0 (80.0-98.0) fL MCH 29.6 (27.0-33.0) pg MCHC 32.5 (31.0-35.0) g/dl RDW 14.6 (11.0-16.0) % Plt Count 126 L (160-400) X10*3/uL MPV 10.9 (9.4-12.3) fL Immature Gran % (Auto) 0.5 H (0.0-0.4) % Neut % (Auto) 80.3 H (45-73) % Lymph % (Auto) 6.6 L (20-40) % [place] % (Auto) 12.0 H (2-11) % Eos % (Auto) 0.4 (0-4) % Baso % (Auto) 0.2 (0-2) % Lymph # (Auto) 0.4 L (1.2-4.9) X10*3/uL [place] # (Auto) 0.7 (0.1-1.2) X10*3/uL Eos # (Auto) 0.0 (0.0-0.4) X10*3/uL Baso # (Auto) 0.0 (0.0-0.2) X10*3/uL Abs Immat Gran (auto) 0.03 (0.00-0.03) X10*3/uL Absolute Neuts (auto) 4.5 (2.0-8.3) x10*3/uL Absolute Nucleated RBC 0.000 (0.0-0.012) X10*3/uL Nucleated RBC % (auto) 0.0 (0.0-0.2) /100WBC PT (9.9-13.0) SEC INR (0.9-1.1) APTT (24.1-38.0) SEC D-Dimer High Sensitivty NG/ML Sodium 143 (135-145) mmol/L Potassium 3.7 (3.3-5.1) mmol/L Chloride 106 (96-108) mmol/L Carbon Dioxide 30 H (22-29) mmol/L Anion Gap 11 L (12-20) BUN 19 H (9-16) mg/dL Creatinine 1.37 (0.5-1.4) mg/dL Estim Creat Clear Calc 33.5 Estimated GFR 37 POC Glucose (60-115) mg/dL Random Glucose 143 H (60-115) mg/dL Lactic Acid (0.5-2.0) mmol/L Calcium 10.0 (8.4-10.2) mg/dL Ferritin (10-250) ng/mL Total Bilirubin 0.7 (0.0-1.0) mg/dL AST 137 H (5-31) U/L ALT 108 H (0-31) U/L Alkaline Phosphatase 121 H (39-117) U/L Lactate Dehydrogenase (122-220) U/L Troponin I High Sens (<3.5-17.0) ng/L B-Natriuretic Peptide Total Protein 7.6 (6.5-8.0) g/dL Albumin 4.1 (3.5-5.0) g/dL Lipase 38 (8-78) U/L Urine Color Urine Appearance Urine pH (5.0-8.0) Ur Specific [place] (1.005-1.025) Urine Protein (NEG-TRACE) MG/DL Urine Glucose (UA) (NEG) MG/DL Urine Ketones (NEG) MG/DL Urine Blood (NEG) Urine Nitrite (NEG) Ur Leukocyte Esterase (NEG) Urine RBC (0) /HPF Urine WBC (0-4) /HPF Ur Squamous Epith Cells /LPF Ur Renal Epithelial Cell /LPF Urine Bacteria /LPF Urine Mucus /LPF Influenza Type A (PCR) NEGATIVE (Negative) Influenza Type B (PCR) NEGATIVE (Negative) RSV RNA Qual (PCR) NEGATIVE (Negative) SARS-CoV-2 RNA (RT-PCR) POSITIVE A (Negative) 11/26/21 11/26/21 11/26/21 Range/Units 18:17 18:17 18:17 WBC (4.8-10.8) X10*3/uL RBC (4.20-5.50) X10*6/uL Hgb (12.0-16.0) g/dl Hct (37.0-47.0) % MCV (80.0-98.0) fL MCH (27.0-33.0) pg MCHC (31.0-35.0) g/dl RDW (11.0-16.0) % Plt Count (160-400) X10*3/uL MPV (9.4-12.3) fL Immature Gran % (Auto) (0.0-0.4) % Neut % (Auto) (45-73) % Lymph % (Auto) (20-40) % [place] % (Auto) (2-11) % Eos % (Auto) (0-4) % Baso % (Auto) (0-2) % Lymph # (Auto) (1.2-4.9) X10*3/uL [place] # (Auto) (0.1-1.2) X10*3/uL Eos # (Auto) (0.0-0.4) X10*3/uL Baso # (Auto) (0.0-0.2) X10*3/uL Abs Immat Gran (auto) (0.00-0.03) X10*3/uL Absolute Neuts (auto) (2.0-8.3) x10*3/uL Absolute Nucleated RBC (0.0-0.012) X10*3/uL Nucleated RBC % (auto) (0.0-0.2) /100WBC PT 11.9 (9.9-13.0) SEC INR 1.0 (0.9-1.1) APTT 30.3 (24.1-38.0) SEC D-Dimer High Sensitivty NG/ML Sodium (135-145) mmol/L Potassium (3.3-5.1) mmol/L Chloride (96-108) mmol/L Carbon Dioxide (22-29) mmol/L Anion Gap (12-20) BUN (9-16) mg/dL Creatinine (0.5-1.4) mg/dL Estim Creat Clear Calc Estimated GFR POC Glucose (60-115) mg/dL Random Glucose (60-115) mg/dL Lactic Acid (0.5-2.0) mmol/L Calcium (8.4-10.2) mg/dL Ferritin (10-250) ng/mL Total Bilirubin (0.0-1.0) mg/dL AST (5-31) U/L ALT (0-31) U/L Alkaline Phosphatase (39-117) U/L Lactate Dehydrogenase (122-220) U/L Troponin I High Sens 30.3 H (<3.5-17.0) ng/L B-Natriuretic Peptide Cancelled 69 Total Protein (6.5-8.0) g/dL Albumin (3.5-5.0) g/dL Lipase (8-78) U/L Urine Color Urine Appearance Urine pH (5.0-8.0) Ur Specific [place] (1.005-1.025) Urine Protein (NEG-TRACE) MG/DL Urine Glucose (UA) (NEG) MG/DL Urine Ketones (NEG) MG/DL Urine Blood (NEG) Urine Nitrite (NEG) Ur Leukocyte Esterase (NEG) Urine RBC (0) /HPF Urine WBC (0-4) /HPF Ur Squamous Epith Cells /LPF Ur Renal Epithelial Cell /LPF Urine Bacteria /LPF Urine Mucus /LPF Influenza Type A (PCR) (Negative) Influenza Type B (PCR) (Negative) RSV RNA Qual (PCR) (Negative) SARS-CoV-2 RNA (RT-PCR) (Negative) 11/26/21 11/26/21 11/27/21 Range/Units 18:18 18:43 13:36 WBC (4.8-10.8) X10*3/uL RBC (4.20-5.50) X10*6/uL Hgb (12.0-16.0) g/dl Hct (37.0-47.0) % MCV (80.0-98.0) fL MCH (27.0-33.0) pg MCHC (31.0-35.0) g/dl RDW (11.0-16.0) % Plt Count (160-400) X10*3/uL MPV (9.4-12.3) fL Immature Gran % (Auto) (0.0-0.4) % Neut % (Auto) (45-73) % Lymph % (Auto) (20-40) % [place] % (Auto) (2-11) % Eos % (Auto) (0-4) % Baso % (Auto) (0-2) % Lymph # (Auto) (1.2-4.9) X10*3/uL [place] # (Auto) (0.1-1.2) X10*3/uL Eos # (Auto) (0.0-0.4) X10*3/uL Baso # (Auto) (0.0-0.2) X10*3/uL Abs Immat Gran (auto) (0.00-0.03) X10*3/uL Absolute Neuts (auto) (2.0-8.3) x10*3/uL Absolute Nucleated RBC (0.0-0.012) X10*3/uL Nucleated RBC % (auto) (0.0-0.2) /100WBC PT (9.9-13.0) SEC INR (0.9-1.1) APTT (24.1-38.0) SEC D-Dimer High Sensitivty NG/ML Sodium (135-145) mmol/L Potassium (3.3-5.1) mmol/L Chloride (96-108) mmol/L Carbon Dioxide (22-29) mmol/L Anion Gap (12-20) BUN (9-16) mg/dL Creatinine (0.5-1.4) mg/dL Estim Creat Clear Calc Estimated GFR POC Glucose 134 H (60-115) mg/dL Random Glucose (60-115) mg/dL Lactic Acid 1.0 (0.5-2.0) mmol/L Calcium (8.4-10.2) mg/dL Ferritin (10-250) ng/mL Total Bilirubin (0.0-1.0) mg/dL AST (5-31) U/L ALT (0-31) U/L Alkaline Phosphatase (39-117) U/L Lactate Dehydrogenase (122-220) U/L Troponin I High Sens (<3.5-17.0) ng/L B-Natriuretic Peptide Total Protein (6.5-8.0) g/dL Albumin (3.5-5.0) g/dL Lipase (8-78) U/L Urine Color YELLOW Urine Appearance CLEAR Urine pH 6.0 (5.0-8.0) Ur Specific [place] 1.020 (1.005-1.025) Urine Protein NEG (NEG-TRACE) MG/DL Urine Glucose (UA) NEG (NEG) MG/DL Urine Ketones NEG (NEG) MG/DL Urine Blood TRACE (NEG) Urine Nitrite NEG (NEG) Ur Leukocyte Esterase NEG (NEG) Urine RBC 0-2 (0) /HPF Urine WBC 0 (0-4) /HPF Ur Squamous Epith Cells 2+ /LPF Ur Renal Epithelial Cell TRACE /LPF Urine Bacteria TRACE /LPF Urine Mucus 1+ /LPF Influenza Type A (PCR) (Negative) Influenza Type B (PCR) (Negative) RSV RNA Qual (PCR) (Negative) SARS-CoV-2 RNA (RT-PCR) (Negative) 11/30/21 11/30/21 12/01/21 Range/Units 13:37 13:37 11:39 WBC 4.6 L 5.5 (4.8-10.8) X10*3/uL RBC 4.52 4.43 (4.20-5.50) X10*6/uL Hgb 13.0 12.9 (12.0-16.0) g/dl Hct 40.7 40.6 (37.0-47.0) % MCV 90.0 91.6 (80.0-98.0) fL MCH 28.8 29.1 (27.0-33.0) pg MCHC 31.9 31.8 (31.0-35.0) g/dl RDW 14.5 14.3 (11.0-16.0) % Plt Count 139 L 137 L (160-400) X10*3/uL MPV 10.5 10.9 (9.4-12.3) fL Immature Gran % (Auto) 0.2 0.5 H (0.0-0.4) % Neut % (Auto) 61.8 78.5 H (45-73) % Lymph % (Auto) 22.4 13.7 L (20-40) % [place] % (Auto) 10.3 7.1 (2-11) % Eos % (Auto) 5.1 H 0.2 (0-4) % Baso % (Auto) 0.2 0.0 (0-2) % Lymph # (Auto) 1.0 L 0.8 L (1.2-4.9) X10*3/uL [place] # (Auto) 0.5 0.4 (0.1-1.2) X10*3/uL Eos # (Auto) 0.2 0.0 (0.0-0.4) X10*3/uL Baso # (Auto) 0.0 0.0 (0.0-0.2) X10*3/uL Abs Immat Gran (auto) 0.01 0.03 (0.00-0.03) X10*3/uL Absolute Neuts (auto) 2.8 4.3 (2.0-8.3) x10*3/uL Absolute Nucleated RBC 0.000 0.000 (0.0-0.012) X10*3/uL Nucleated RBC % (auto) 0.0 0.0 (0.0-0.2) /100WBC PT (9.9-13.0) SEC INR (0.9-1.1) APTT (24.1-38.0) SEC D-Dimer High Sensitivty NG/ML Sodium 142 (135-145) mmol/L Potassium 3.7 (3.3-5.1) mmol/L Chloride 108 (96-108) mmol/L Carbon Dioxide 28 (22-29) mmol/L Anion Gap 10 L (12-20) BUN 27 H (9-16) mg/dL Creatinine 1.18 (0.5-1.4) mg/dL Estim Creat Clear Calc 38.9 Estimated GFR 44 POC Glucose (60-115) mg/dL Random Glucose 116 H (60-115) mg/dL Lactic Acid (0.5-2.0) mmol/L Calcium 10.1 (8.4-10.2) mg/dL Ferritin 152 (10-250) ng/mL Total Bilirubin (0.0-1.0) mg/dL AST (5-31) U/L ALT (0-31) U/L Alkaline Phosphatase (39-117) U/L Lactate Dehydrogenase 199 (122-220) U/L Troponin I High Sens (<3.5-17.0) ng/L B-Natriuretic Peptide Total Protein (6.5-8.0) g/dL Albumin (3.5-5.0) g/dL Lipase (8-78) U/L Urine Color Urine Appearance Urine pH (5.0-8.0) Ur Specific [place] (1.005-1.025) Urine Protein (NEG-TRACE) MG/DL Urine Glucose (UA) (NEG) MG/DL Urine Ketones (NEG) MG/DL Urine Blood (NEG) Urine Nitrite (NEG) Ur Leukocyte Esterase (NEG) Urine RBC (0) /HPF Urine WBC (0-4) /HPF Ur Squamous Epith Cells /LPF Ur Renal Epithelial Cell /LPF Urine Bacteria /LPF Urine Mucus /LPF Influenza Type A (PCR) (Negative) Influenza Type B (PCR) (Negative) RSV RNA Qual (PCR) (Negative) SARS-CoV-2 RNA (RT-PCR) (Negative) 12/01/21 12/01/21 Range/Units 11:39 11:39 WBC (4.8-10.8) X10*3/uL RBC (4.20-5.50) X10*6/uL Hgb (12.0-16.0) g/dl Hct (37.0-47.0) % MCV (80.0-98.0) fL MCH (27.0-33.0) pg MCHC (31.0-35.0) g/dl RDW (11.0-16.0) % Plt Count (160-400) X10*3/uL MPV (9.4-12.3) fL Immature Gran % (Auto) (0.0-0.4) % Neut % (Auto) (45-73) % Lymph % (Auto) (20-40) % [place] % (Auto) (2-11) % Eos % (Auto) (0-4) % Baso % (Auto) (0-2) % Lymph # (Auto) (1.2-4.9) X10*3/uL [place] # (Auto) (0.1-1.2) X10*3/uL Eos # (Auto) (0.0-0.4) X10*3/uL Baso # (Auto) (0.0-0.2) X10*3/uL Abs Immat Gran (auto) (0.00-0.03) X10*3/uL Absolute Neuts (auto) (2.0-8.3) x10*3/uL Absolute Nucleated RBC (0.0-0.012) X10*3/uL Nucleated RBC % (auto) (0.0-0.2) /100WBC PT 11.4 (9.9-13.0) SEC INR 1.0 (0.9-1.1) APTT (24.1-38.0) SEC D-Dimer High Sensitivty 601 NG/ML Sodium 147 H (135-145) mmol/L Potassium 3.8 (3.3-5.1) mmol/L Chloride 108 (96-108) mmol/L Carbon Dioxide 31 H (22-29) mmol/L Anion Gap 12 (12-20) BUN 32 H (9-16) mg/dL Creatinine 1.19 (0.5-1.4) mg/dL Estim Creat Clear Calc 38.6 Estimated GFR 43 POC Glucose (60-115) mg/dL Random Glucose 133 H (60-115) mg/dL Lactic Acid (0.5-2.0) mmol/L Calcium 10.5 H (8.4-10.2) mg/dL Ferritin (10-250) ng/mL Total Bilirubin (0.0-1.0) mg/dL AST (5-31) U/L ALT (0-31) U/L Alkaline Phosphatase (39-117) U/L Lactate Dehydrogenase (122-220) U/L Troponin I High Sens (<3.5-17.0) ng/L B-Natriuretic Peptide Total Protein (6.5-8.0) g/dL Albumin (3.5-5.0) g/dL Lipase (8-78) U/L Urine Color Urine Appearance Urine pH (5.0-8.0) Ur Specific [place] (1.005-1.025) Urine Protein (NEG-TRACE) MG/DL Urine Glucose (UA) (NEG) MG/DL Urine Ketones (NEG) MG/DL Urine Blood (NEG) Urine Nitrite (NEG) Ur Leukocyte Esterase (NEG) Urine RBC (0) /HPF Urine WBC (0-4) /HPF Ur Squamous Epith Cells /LPF Ur Renal Epithelial Cell /LPF Urine Bacteria /LPF Urine Mucus /LPF Influenza Type A (PCR) (Negative) Influenza Type B (PCR) (Negative) RSV RNA Qual (PCR) (Negative) SARS-CoV-2 RNA (RT-PCR) (Negative) <Fly Cummins MD - Last Filed: 11/26/21 22:18> Lab Results 11/26/21 11/26/21 11/26/21 Range/Units 18:17 18:17 18:17 WBC 5.6 (4.8-10.8) X10*3/uL RBC 4.33 (4.20-5.50) X10*6/uL Hgb 12.8 (12.0-16.0) g/dl Hct 39.4 (37.0-47.0) % MCV 91.0 (80.0-98.0) fL MCH 29.6 (27.0-33.0) pg MCHC 32.5 (31.0-35.0) g/dl RDW 14.6 (11.0-16.0) % Plt Count 126 L (160-400) X10*3/uL MPV 10.9 (9.4-12.3) fL Immature Gran % (Auto) 0.5 H (0.0-0.4) % Neut % (Auto) 80.3 H (45-73) % Lymph % (Auto) 6.6 L (20-40) % [place] % (Auto) 12.0 H (2-11) % Eos % (Auto) 0.4 (0-4) % Baso % (Auto) 0.2 (0-2) % Lymph # (Auto) 0.4 L (1.2-4.9) X10*3/uL [place] # (Auto) 0.7 (0.1-1.2) X10*3/uL Eos # (Auto) 0.0 (0.0-0.4) X10*3/uL Baso # (Auto) 0.0 (0.0-0.2) X10*3/uL Abs Immat Gran (auto) 0.03 (0.00-0.03) X10*3/uL Absolute Neuts (auto) 4.5 (2.0-8.3) x10*3/uL Absolute Nucleated RBC 0.000 (0.0-0.012) X10*3/uL Nucleated RBC % (auto) 0.0 (0.0-0.2) /100WBC PT (9.9-13.0) SEC INR (0.9-1.1) APTT (24.1-38.0) SEC D-Dimer High Sensitivty NG/ML Sodium 143 (135-145) mmol/L Potassium 3.7 (3.3-5.1) mmol/L Chloride 106 (96-108) mmol/L Carbon Dioxide 30 H (22-29) mmol/L Anion Gap 11 L (12-20) BUN 19 H (9-16) mg/dL Creatinine 1.37 (0.5-1.4) mg/dL Estim Creat Clear Calc 33.5 Estimated GFR 37 POC Glucose (60-115) mg/dL Random Glucose 143 H (60-115) mg/dL Lactic Acid (0.5-2.0) mmol/L Calcium 10.0 (8.4-10.2) mg/dL Ferritin (10-250) ng/mL Total Bilirubin 0.7 (0.0-1.0) mg/dL AST 137 H (5-31) U/L ALT 108 H (0-31) U/L Alkaline Phosphatase 121 H (39-117) U/L Lactate Dehydrogenase (122-220) U/L Troponin I High Sens (<3.5-17.0) ng/L B-Natriuretic Peptide Total Protein 7.6 (6.5-8.0) g/dL Albumin 4.1 (3.5-5.0) g/dL Lipase 38 (8-78) U/L Urine Color Urine Appearance Urine pH (5.0-8.0) Ur Specific [place] (1.005-1.025) Urine Protein (NEG-TRACE) MG/DL Urine Glucose (UA) (NEG) MG/DL Urine Ketones (NEG) MG/DL Urine Blood (NEG) Urine Nitrite (NEG) Ur Leukocyte Esterase (NEG) Urine RBC (0) /HPF Urine WBC (0-4) /HPF Ur Squamous Epith Cells /LPF Ur Renal Epithelial Cell /LPF Urine Bacteria /LPF Urine Mucus /LPF Influenza Type A (PCR) NEGATIVE (Negative) Influenza Type B (PCR) NEGATIVE (Negative) RSV RNA Qual (PCR) NEGATIVE (Negative) SARS-CoV-2 RNA (RT-PCR) POSITIVE A (Negative) 11/26/21 11/26/21 11/26/21 Range/Units 18:17 18:17 18:17 WBC (4.8-10.8) X10*3/uL RBC (4.20-5.50) X10*6/uL Hgb (12.0-16.0) g/dl Hct (37.0-47.0) % MCV (80.0-98.0) fL MCH (27.0-33.0) pg MCHC (31.0-35.0) g/dl RDW (11.0-16.0) % Plt Count (160-400) X10*3/uL MPV (9.4-12.3) fL Immature Gran % (Auto) (0.0-0.4) % Neut % (Auto) (45-73) % Lymph % (Auto) (20-40) % [place] % (Auto) (2-11) % Eos % (Auto) (0-4) % Baso % (Auto) (0-2) % Lymph # (Auto) (1.2-4.9) X10*3/uL [place] # (Auto) (0.1-1.2) X10*3/uL Eos # (Auto) (0.0-0.4) X10*3/uL Baso # (Auto) (0.0-0.2) X10*3/uL Abs Immat Gran (auto) (0.00-0.03) X10*3/uL Absolute Neuts (auto) (2.0-8.3) x10*3/uL Absolute Nucleated RBC (0.0-0.012) X10*3/uL Nucleated RBC % (auto) (0.0-0.2) /100WBC PT 11.9 (9.9-13.0) SEC INR 1.0 (0.9-1.1) APTT 30.3 (24.1-38.0) SEC D-Dimer High Sensitivty NG/ML Sodium (135-145) mmol/L Potassium (3.3-5.1) mmol/L Chloride (96-108) mmol/L Carbon Dioxide (22-29) mmol/L Anion Gap (12-20) BUN (9-16) mg/dL Creatinine (0.5-1.4) mg/dL Estim Creat Clear Calc Estimated GFR POC Glucose (60-115) mg/dL Random Glucose (60-115) mg/dL Lactic Acid (0.5-2.0) mmol/L Calcium (8.4-10.2) mg/dL Ferritin (10-250) ng/mL Total Bilirubin (0.0-1.0) mg/dL AST (5-31) U/L ALT (0-31) U/L Alkaline Phosphatase (39-117) U/L Lactate Dehydrogenase (122-220) U/L Troponin I High Sens 30.3 H (<3.5-17.0) ng/L B-Natriuretic Peptide Cancelled 69 Total Protein (6.5-8.0) g/dL Albumin (3.5-5.0) g/dL Lipase (8-78) U/L Urine Color Urine Appearance Urine pH (5.0-8.0) Ur Specific [place] (1.005-1.025) Urine Protein (NEG-TRACE) MG/DL Urine Glucose (UA) (NEG) MG/DL Urine Ketones (NEG) MG/DL Urine Blood (NEG) Urine Nitrite (NEG) Ur Leukocyte Esterase (NEG) Urine RBC (0) /HPF Urine WBC (0-4) /HPF Ur Squamous Epith Cells /LPF Ur Renal Epithelial Cell /LPF Urine Bacteria /LPF Urine Mucus /LPF Influenza Type A (PCR) (Negative) Influenza Type B (PCR) (Negative) RSV RNA Qual (PCR) (Negative) SARS-CoV-2 RNA (RT-PCR) (Negative) 11/26/21 11/26/21 11/27/21 Range/Units 18:18 18:43 13:36 WBC (4.8-10.8) X10*3/uL RBC (4.20-5.50) X10*6/uL Hgb (12.0-16.0) g/dl Hct (37.0-47.0) % MCV (80.0-98.0) fL MCH (27.0-33.0) pg MCHC (31.0-35.0) g/dl RDW (11.0-16.0) % Plt Count (160-400) X10*3/uL MPV (9.4-12.3) fL Immature Gran % (Auto) (0.0-0.4) % Neut % (Auto) (45-73) % Lymph % (Auto) (20-40) % [place] % (Auto) (2-11) % Eos % (Auto) (0-4) % Baso % (Auto) (0-2) % Lymph # (Auto) (1.2-4.9) X10*3/uL [place] # (Auto) (0.1-1.2) X10*3/uL Eos # (Auto) (0.0-0.4) X10*3/uL Baso # (Auto) (0.0-0.2) X10*3/uL Abs Immat Gran (auto) (0.00-0.03) X10*3/uL Absolute Neuts (auto) (2.0-8.3) x10*3/uL Absolute Nucleated RBC (0.0-0.012) X10*3/uL Nucleated RBC % (auto) (0.0-0.2) /100WBC PT (9.9-13.0) SEC INR (0.9-1.1) APTT (24.1-38.0) SEC D-Dimer High Sensitivty NG/ML Sodium (135-145) mmol/L Potassium (3.3-5.1) mmol/L Chloride (96-108) mmol/L Carbon Dioxide (22-29) mmol/L Anion Gap (12-20) BUN (9-16) mg/dL Creatinine (0.5-1.4) mg/dL Estim Creat Clear Calc Estimated GFR POC Glucose 134 H (60-115) mg/dL Random Glucose (60-115) mg/dL Lactic Acid 1.0 (0.5-2.0) mmol/L Calcium (8.4-10.2) mg/dL Ferritin (10-250) ng/mL Total Bilirubin (0.0-1.0) mg/dL AST (5-31) U/L ALT (0-31) U/L Alkaline Phosphatase (39-117) U/L Lactate Dehydrogenase (122-220) U/L Troponin I High Sens (<3.5-17.0) ng/L B-Natriuretic Peptide Total Protein (6.5-8.0) g/dL Albumin (3.5-5.0) g/dL Lipase (8-78) U/L Urine Color YELLOW Urine Appearance CLEAR Urine pH 6.0 (5.0-8.0) Ur Specific [place] 1.020 (1.005-1.025) Urine Protein NEG (NEG-TRACE) MG/DL Urine Glucose (UA) NEG (NEG) MG/DL Urine Ketones NEG (NEG) MG/DL Urine Blood TRACE (NEG) Urine Nitrite NEG (NEG) Ur Leukocyte Esterase NEG (NEG) Urine RBC 0-2 (0) /HPF Urine WBC 0 (0-4) /HPF Ur Squamous Epith Cells 2+ /LPF Ur Renal Epithelial Cell TRACE /LPF Urine Bacteria TRACE /LPF Urine Mucus 1+ /LPF Influenza Type A (PCR) (Negative) Influenza Type B (PCR) (Negative) RSV RNA Qual (PCR) (Negative) SARS-CoV-2 RNA (RT-PCR) (Negative) 11/30/21 11/30/21 12/01/21 Range/Units 13:37 13:37 11:39 WBC 4.6 L 5.5 (4.8-10.8) X10*3/uL RBC 4.52 4.43 (4.20-5.50) X10*6/uL Hgb 13.0 12.9 (12.0-16.0) g/dl Hct 40.7 40.6 (37.0-47.0) % MCV 90.0 91.6 (80.0-98.0) fL MCH 28.8 29.1 (27.0-33.0) pg MCHC 31.9 31.8 (31.0-35.0) g/dl RDW 14.5 14.3 (11.0-16.0) % Plt Count 139 L 137 L (160-400) X10*3/uL MPV 10.5 10.9 (9.4-12.3) fL Immature Gran % (Auto) 0.2 0.5 H (0.0-0.4) % Neut % (Auto) 61.8 78.5 H (45-73) % Lymph % (Auto) 22.4 13.7 L (20-40) % [place] % (Auto) 10.3 7.1 (2-11) % Eos % (Auto) 5.1 H 0.2 (0-4) % Baso % (Auto) 0.2 0.0 (0-2) % Lymph # (Auto) 1.0 L 0.8 L (1.2-4.9) X10*3/uL [place] # (Auto) 0.5 0.4 (0.1-1.2) X10*3/uL Eos # (Auto) 0.2 0.0 (0.0-0.4) X10*3/uL Baso # (Auto) 0.0 0.0 (0.0-0.2) X10*3/uL Abs Immat Gran (auto) 0.01 0.03 (0.00-0.03) X10*3/uL Absolute Neuts (auto) 2.8 4.3 (2.0-8.3) x10*3/uL Absolute Nucleated RBC 0.000 0.000 (0.0-0.012) X10*3/uL Nucleated RBC % (auto) 0.0 0.0 (0.0-0.2) /100WBC PT (9.9-13.0) SEC INR (0.9-1.1) APTT (24.1-38.0) SEC D-Dimer High Sensitivty NG/ML Sodium 142 (135-145) mmol/L Potassium 3.7 (3.3-5.1) mmol/L Chloride 108 (96-108) mmol/L Carbon Dioxide 28 (22-29) mmol/L Anion Gap 10 L (12-20) BUN 27 H (9-16) mg/dL Creatinine 1.18 (0.5-1.4) mg/dL Estim Creat Clear Calc 38.9 Estimated GFR 44 POC Glucose (60-115) mg/dL Random Glucose 116 H (60-115) mg/dL Lactic Acid (0.5-2.0) mmol/L Calcium 10.1 (8.4-10.2) mg/dL Ferritin 152 (10-250) ng/mL Total Bilirubin (0.0-1.0) mg/dL AST (5-31) U/L ALT (0-31) U/L Alkaline Phosphatase (39-117) U/L Lactate Dehydrogenase 199 (122-220) U/L Troponin I High Sens (<3.5-17.0) ng/L B-Natriuretic Peptide Total Protein (6.5-8.0) g/dL Albumin (3.5-5.0) g/dL Lipase (8-78) U/L Urine Color Urine Appearance Urine pH (5.0-8.0) Ur Specific [place] (1.005-1.025) Urine Protein (NEG-TRACE) MG/DL Urine Glucose (UA) (NEG) MG/DL Urine Ketones (NEG) MG/DL Urine Blood (NEG) Urine Nitrite (NEG) Ur Leukocyte Esterase (NEG) Urine RBC (0) /HPF Urine WBC (0-4) /HPF Ur Squamous Epith Cells /LPF Ur Renal Epithelial Cell /LPF Urine Bacteria /LPF Urine Mucus /LPF Influenza Type A (PCR) (Negative) Influenza Type B (PCR) (Negative) RSV RNA Qual (PCR) (Negative) SARS-CoV-2 RNA (RT-PCR) (Negative) 12/01/21 12/01/21 Range/Units 11:39 11:39 WBC (4.8-10.8) X10*3/uL RBC (4.20-5.50) X10*6/uL Hgb (12.0-16.0) g/dl Hct (37.0-47.0) % MCV (80.0-98.0) fL MCH (27.0-33.0) pg MCHC (31.0-35.0) g/dl RDW (11.0-16.0) % Plt Count (160-400) X10*3/uL MPV (9.4-12.3) fL Immature Gran % (Auto) (0.0-0.4) % Neut % (Auto) (45-73) % Lymph % (Auto) (20-40) % [place]enson % (Auto) (2-11) % Eos % (Auto) (0-4) % Baso % (Auto) (0-2) % Lymph # (Auto) (1.2-4.9) X10*3/uL [place] # (Auto) (0.1-1.2) X10*3/uL Eos # (Auto) (0.0-0.4) X10*3/uL Baso # (Auto) (0.0-0.2) X10*3/uL Abs Immat Gran (auto) (0.00-0.03) X10*3/uL Absolute Neuts (auto) (2.0-8.3) x10*3/uL Absolute Nucleated RBC (0.0-0.012) X10*3/uL Nucleated RBC % (auto) (0.0-0.2) /100WBC PT 11.4 (9.9-13.0) SEC INR 1.0 (0.9-1.1) APTT (24.1-38.0) SEC D-Dimer High Sensitivty 601 NG/ML Sodium 147 H (135-145) mmol/L Potassium 3.8 (3.3-5.1) mmol/L Chloride 108 (96-108) mmol/L Carbon Dioxide 31 H (22-29) mmol/L Anion Gap 12 (12-20) BUN 32 H (9-16) mg/dL Creatinine 1.19 (0.5-1.4) mg/dL Estim Creat Clear Calc 38.6 Estimated GFR 43 POC Glucose (60-115) mg/dL Random Glucose 133 H (60-115) mg/dL Lactic Acid (0.5-2.0) mmol/L Calcium 10.5 H (8.4-10.2) mg/dL Ferritin (10-250) ng/mL Total Bilirubin (0.0-1.0) mg/dL AST (5-31) U/L ALT (0-31) U/L Alkaline Phosphatase (39-117) U/L Lactate Dehydrogenase (122-220) U/L Troponin I High Sens (<3.5-17.0) ng/L B-Natriuretic Peptide Total Protein (6.5-8.0) g/dL Albumin (3.5-5.0) g/dL Lipase (8-78) U/L Urine Color Urine Appearance Urine pH (5.0-8.0) Ur Specific [place] (1.005-1.025) Urine Protein (NEG-TRACE) MG/DL Urine Glucose (UA) (NEG) MG/DL Urine Ketones (NEG) MG/DL Urine Blood (NEG) Urine Nitrite (NEG) Ur Leukocyte Esterase (NEG) Urine RBC (0) /HPF Urine WBC (0-4) /HPF Ur Squamous Epith Cells /LPF Ur Renal Epithelial Cell /LPF Urine Bacteria /LPF Urine Mucus /LPF Influenza Type A (PCR) (Negative) Influenza Type B (PCR) (Negative) RSV RNA Qual (PCR) (Negative) SARS-CoV-2 RNA (RT-PCR) (Negative) <JOJO Alcazar - Last Filed: 11/27/21 09:44> Lab Results 11/26/21 11/26/21 11/26/21 Range/Units 18:17 18:17 18:17 WBC 5.6 (4.8-10.8) X10*3/uL RBC 4.33 (4.20-5.50) X10*6/uL Hgb 12.8 (12.0-16.0) g/dl Hct 39.4 (37.0-47.0) % MCV 91.0 (80.0-98.0) fL MCH 29.6 (27.0-33.0) pg MCHC 32.5 (31.0-35.0) g/dl RDW 14.6 (11.0-16.0) % Plt Count 126 L (160-400) X10*3/uL MPV 10.9 (9.4-12.3) fL Immature Gran % (Auto) 0.5 H (0.0-0.4) % Neut % (Auto) 80.3 H (45-73) % Lymph % (Auto) 6.6 L (20-40) % Dickenson % (Auto) 12.0 H (2-11) % Eos % (Auto) 0.4 (0-4) % Baso % (Auto) 0.2 (0-2) % Lymph # (Auto) 0.4 L (1.2-4.9) X10*3/uL [place] # (Auto) 0.7 (0.1-1.2) X10*3/uL Eos # (Auto) 0.0 (0.0-0.4) X10*3/uL Baso # (Auto) 0.0 (0.0-0.2) X10*3/uL Abs Immat Gran (auto) 0.03 (0.00-0.03) X10*3/uL Absolute Neuts (auto) 4.5 (2.0-8.3) x10*3/uL Absolute Nucleated RBC 0.000 (0.0-0.012) X10*3/uL Nucleated RBC % (auto) 0.0 (0.0-0.2) /100WBC PT (9.9-13.0) SEC INR (0.9-1.1) APTT (24.1-38.0) SEC D-Dimer High Sensitivty NG/ML Sodium 143 (135-145) mmol/L Potassium 3.7 (3.3-5.1) mmol/L Chloride 106 (96-108) mmol/L Carbon Dioxide 30 H (22-29) mmol/L Anion Gap 11 L (12-20) BUN 19 H (9-16) mg/dL Creatinine 1.37 (0.5-1.4) mg/dL Estim Creat Clear Calc 33.5 Estimated GFR 37 POC Glucose (60-115) mg/dL Random Glucose 143 H (60-115) mg/dL Lactic Acid (0.5-2.0) mmol/L Calcium 10.0 (8.4-10.2) mg/dL Ferritin (10-250) ng/mL Total Bilirubin 0.7 (0.0-1.0) mg/dL AST 137 H (5-31) U/L ALT 108 H (0-31) U/L Alkaline Phosphatase 121 H (39-117) U/L Lactate Dehydrogenase (122-220) U/L Troponin I High Sens (<3.5-17.0) ng/L B-Natriuretic Peptide Total Protein 7.6 (6.5-8.0) g/dL Albumin 4.1 (3.5-5.0) g/dL Lipase 38 (8-78) U/L Urine Color Urine Appearance Urine pH (5.0-8.0) Ur Specific [place] (1.005-1.025) Urine Protein (NEG-TRACE) MG/DL Urine Glucose (UA) (NEG) MG/DL Urine Ketones (NEG) MG/DL Urine Blood (NEG) Urine Nitrite (NEG) Ur Leukocyte Esterase (NEG) Urine RBC (0) /HPF Urine WBC (0-4) /HPF Ur Squamous Epith Cells /LPF Ur Renal Epithelial Cell /LPF Urine Bacteria /LPF Urine Mucus /LPF Influenza Type A (PCR) NEGATIVE (Negative) Influenza Type B (PCR) NEGATIVE (Negative) RSV RNA Qual (PCR) NEGATIVE (Negative) SARS-CoV-2 RNA (RT-PCR) POSITIVE A (Negative) 11/26/21 11/26/21 11/26/21 Range/Units 18:17 18:17 18:17 WBC (4.8-10.8) X10*3/uL RBC (4.20-5.50) X10*6/uL Hgb (12.0-16.0) g/dl Hct (37.0-47.0) % MCV (80.0-98.0) fL MCH (27.0-33.0) pg MCHC (31.0-35.0) g/dl RDW (11.0-16.0) % Plt Count (160-400) X10*3/uL MPV (9.4-12.3) fL Immature Gran % (Auto) (0.0-0.4) % Neut % (Auto) (45-73) % Lymph % (Auto) (20-40) % [place] % (Auto) (2-11) % Eos % (Auto) (0-4) % Baso % (Auto) (0-2) % Lymph # (Auto) (1.2-4.9) X10*3/uL [place] # (Auto) (0.1-1.2) X10*3/uL Eos # (Auto) (0.0-0.4) X10*3/uL Baso # (Auto) (0.0-0.2) X10*3/uL Abs Immat Gran (auto) (0.00-0.03) X10*3/uL Absolute Neuts (auto) (2.0-8.3) x10*3/uL Absolute Nucleated RBC (0.0-0.012) X10*3/uL Nucleated RBC % (auto) (0.0-0.2) /100WBC PT 11.9 (9.9-13.0) SEC INR 1.0 (0.9-1.1) APTT 30.3 (24.1-38.0) SEC D-Dimer High Sensitivty NG/ML Sodium (135-145) mmol/L Potassium (3.3-5.1) mmol/L Chloride (96-108) mmol/L Carbon Dioxide (22-29) mmol/L Anion Gap (12-20) BUN (9-16) mg/dL Creatinine (0.5-1.4) mg/dL Estim Creat Clear Calc Estimated GFR POC Glucose (60-115) mg/dL Random Glucose (60-115) mg/dL Lactic Acid (0.5-2.0) mmol/L Calcium (8.4-10.2) mg/dL Ferritin (10-250) ng/mL Total Bilirubin (0.0-1.0) mg/dL AST (5-31) U/L ALT (0-31) U/L Alkaline Phosphatase (39-117) U/L Lactate Dehydrogenase (122-220) U/L Troponin I High Sens 30.3 H (<3.5-17.0) ng/L B-Natriuretic Peptide Cancelled 69 Total Protein (6.5-8.0) g/dL Albumin (3.5-5.0) g/dL Lipase (8-78) U/L Urine Color Urine Appearance Urine pH (5.0-8.0) Ur Specific [place] (1.005-1.025) Urine Protein (NEG-TRACE) MG/DL Urine Glucose (UA) (NEG) MG/DL Urine Ketones (NEG) MG/DL Urine Blood (NEG) Urine Nitrite (NEG) Ur Leukocyte Esterase (NEG) Urine RBC (0) /HPF Urine WBC (0-4) /HPF Ur Squamous Epith Cells /LPF Ur Renal Epithelial Cell /LPF Urine Bacteria /LPF Urine Mucus /LPF Influenza Type A (PCR) (Negative) Influenza Type B (PCR) (Negative) RSV RNA Qual (PCR) (Negative) SARS-CoV-2 RNA (RT-PCR) (Negative) 11/26/21 11/26/21 11/27/21 Range/Units 18:18 18:43 13:36 WBC (4.8-10.8) X10*3/uL RBC (4.20-5.50) X10*6/uL Hgb (12.0-16.0) g/dl Hct (37.0-47.0) % MCV (80.0-98.0) fL MCH (27.0-33.0) pg MCHC (31.0-35.0) g/dl RDW (11.0-16.0) % Plt Count (160-400) X10*3/uL MPV (9.4-12.3) fL Immature Gran % (Auto) (0.0-0.4) % Neut % (Auto) (45-73) % Lymph % (Auto) (20-40) % [place] % (Auto) (2-11) % Eos % (Auto) (0-4) % Baso % (Auto) (0-2) % Lymph # (Auto) (1.2-4.9) X10*3/uL [place] # (Auto) (0.1-1.2) X10*3/uL Eos # (Auto) (0.0-0.4) X10*3/uL Baso # (Auto) (0.0-0.2) X10*3/uL Abs Immat Gran (auto) (0.00-0.03) X10*3/uL Absolute Neuts (auto) (2.0-8.3) x10*3/uL Absolute Nucleated RBC (0.0-0.012) X10*3/uL Nucleated RBC % (auto) (0.0-0.2) /100WBC PT (9.9-13.0) SEC INR (0.9-1.1) APTT (24.1-38.0) SEC D-Dimer High Sensitivty NG/ML Sodium (135-145) mmol/L Potassium (3.3-5.1) mmol/L Chloride (96-108) mmol/L Carbon Dioxide (22-29) mmol/L Anion Gap (12-20) BUN (9-16) mg/dL Creatinine (0.5-1.4) mg/dL Estim Creat Clear Calc Estimated GFR POC Glucose 134 H (60-115) mg/dL Random Glucose (60-115) mg/dL Lactic Acid 1.0 (0.5-2.0) mmol/L Calcium (8.4-10.2) mg/dL Ferritin (10-250) ng/mL Total Bilirubin (0.0-1.0) mg/dL AST (5-31) U/L ALT (0-31) U/L Alkaline Phosphatase (39-117) U/L Lactate Dehydrogenase (122-220) U/L Troponin I High Sens (<3.5-17.0) ng/L B-Natriuretic Peptide Total Protein (6.5-8.0) g/dL Albumin (3.5-5.0) g/dL Lipase (8-78) U/L Urine Color YELLOW Urine Appearance CLEAR Urine pH 6.0 (5.0-8.0) Ur Specific [place] 1.020 (1.005-1.025) Urine Protein NEG (NEG-TRACE) MG/DL Urine Glucose (UA) NEG (NEG) MG/DL Urine Ketones NEG (NEG) MG/DL Urine Blood TRACE (NEG) Urine Nitrite NEG (NEG) Ur Leukocyte Esterase NEG (NEG) Urine RBC 0-2 (0) /HPF Urine WBC 0 (0-4) /HPF Ur Squamous Epith Cells 2+ /LPF Ur Renal Epithelial Cell TRACE /LPF Urine Bacteria TRACE /LPF Urine Mucus 1+ /LPF Influenza Type A (PCR) (Negative) Influenza Type B (PCR) (Negative) RSV RNA Qual (PCR) (Negative) SARS-CoV-2 RNA (RT-PCR) (Negative) 11/30/21 11/30/21 12/01/21 Range/Units 13:37 13:37 11:39 WBC 4.6 L 5.5 (4.8-10.8) X10*3/uL RBC 4.52 4.43 (4.20-5.50) X10*6/uL Hgb 13.0 12.9 (12.0-16.0) g/dl Hct 40.7 40.6 (37.0-47.0) % MCV 90.0 91.6 (80.0-98.0) fL MCH 28.8 29.1 (27.0-33.0) pg MCHC 31.9 31.8 (31.0-35.0) g/dl RDW 14.5 14.3 (11.0-16.0) % Plt Count 139 L 137 L (160-400) X10*3/uL MPV 10.5 10.9 (9.4-12.3) fL Immature Gran % (Auto) 0.2 0.5 H (0.0-0.4) % Neut % (Auto) 61.8 78.5 H (45-73) % Lymph % (Auto) 22.4 13.7 L (20-40) % [place] % (Auto) 10.3 7.1 (2-11) % Eos % (Auto) 5.1 H 0.2 (0-4) % Baso % (Auto) 0.2 0.0 (0-2) % Lymph # (Auto) 1.0 L 0.8 L (1.2-4.9) X10*3/uL [place] # (Auto) 0.5 0.4 (0.1-1.2) X10*3/uL Eos # (Auto) 0.2 0.0 (0.0-0.4) X10*3/uL Baso # (Auto) 0.0 0.0 (0.0-0.2) X10*3/uL Abs Immat Gran (auto) 0.01 0.03 (0.00-0.03) X10*3/uL Absolute Neuts (auto) 2.8 4.3 (2.0-8.3) x10*3/uL Absolute Nucleated RBC 0.000 0.000 (0.0-0.012) X10*3/uL Nucleated RBC % (auto) 0.0 0.0 (0.0-0.2) /100WBC PT (9.9-13.0) SEC INR (0.9-1.1) APTT (24.1-38.0) SEC D-Dimer High Sensitivty NG/ML Sodium 142 (135-145) mmol/L Potassium 3.7 (3.3-5.1) mmol/L Chloride 108 (96-108) mmol/L Carbon Dioxide 28 (22-29) mmol/L Anion Gap 10 L (12-20) BUN 27 H (9-16) mg/dL Creatinine 1.18 (0.5-1.4) mg/dL Estim Creat Clear Calc 38.9 Estimated GFR 44 POC Glucose (60-115) mg/dL Random Glucose 116 H (60-115) mg/dL Lactic Acid (0.5-2.0) mmol/L Calcium 10.1 (8.4-10.2) mg/dL Ferritin 152 (10-250) ng/mL Total Bilirubin (0.0-1.0) mg/dL AST (5-31) U/L ALT (0-31) U/L Alkaline Phosphatase (39-117) U/L Lactate Dehydrogenase 199 (122-220) U/L Troponin I High Sens (<3.5-17.0) ng/L B-Natriuretic Peptide Total Protein (6.5-8.0) g/dL Albumin (3.5-5.0) g/dL Lipase (8-78) U/L Urine Color Urine Appearance Urine pH (5.0-8.0) Ur Specific [place] (1.005-1.025) Urine Protein (NEG-TRACE) MG/DL Urine Glucose (UA) (NEG) MG/DL Urine Ketones (NEG) MG/DL Urine Blood (NEG) Urine Nitrite (NEG) Ur Leukocyte Esterase (NEG) Urine RBC (0) /HPF Urine WBC (0-4) /HPF Ur Squamous Epith Cells /LPF Ur Renal Epithelial Cell /LPF Urine Bacteria /LPF Urine Mucus /LPF Influenza Type A (PCR) (Negative) Influenza Type B (PCR) (Negative) RSV RNA Qual (PCR) (Negative) SARS-CoV-2 RNA (RT-PCR) (Negative) 12/01/21 12/01/21 Range/Units 11:39 11:39 WBC (4.8-10.8) X10*3/uL RBC (4.20-5.50) X10*6/uL Hgb (12.0-16.0) g/dl Hct (37.0-47.0) % MCV (80.0-98.0) fL MCH (27.0-33.0) pg MCHC (31.0-35.0) g/dl RDW (11.0-16.0) % Plt Count (160-400) X10*3/uL MPV (9.4-12.3) fL Immature Gran % (Auto) (0.0-0.4) % Neut % (Auto) (45-73) % Lymph % (Auto) (20-40) % [place] % (Auto) (2-11) % Eos % (Auto) (0-4) % Baso % (Auto) (0-2) % Lymph # (Auto) (1.2-4.9) X10*3/uL [place] # (Auto) (0.1-1.2) X10*3/uL Eos # (Auto) (0.0-0.4) X10*3/uL Baso # (Auto) (0.0-0.2) X10*3/uL Abs Immat Gran (auto) (0.00-0.03) X10*3/uL Absolute Neuts (auto) (2.0-8.3) x10*3/uL Absolute Nucleated RBC (0.0-0.012) X10*3/uL Nucleated RBC % (auto) (0.0-0.2) /100WBC PT 11.4 (9.9-13.0) SEC INR 1.0 (0.9-1.1) APTT (24.1-38.0) SEC D-Dimer High Sensitivty 601 NG/ML Sodium 147 H (135-145) mmol/L Potassium 3.8 (3.3-5.1) mmol/L Chloride 108 (96-108) mmol/L Carbon Dioxide 31 H (22-29) mmol/L Anion Gap 12 (12-20) BUN 32 H (9-16) mg/dL Creatinine 1.19 (0.5-1.4) mg/dL Estim Creat Clear Calc 38.6 Estimated GFR 43 POC Glucose (60-115) mg/dL Random Glucose 133 H (60-115) mg/dL Lactic Acid (0.5-2.0) mmol/L Calcium 10.5 H (8.4-10.2) mg/dL Ferritin (10-250) ng/mL Total Bilirubin (0.0-1.0) mg/dL AST (5-31) U/L ALT (0-31) U/L Alkaline Phosphatase (39-117) U/L Lactate Dehydrogenase (122-220) U/L Troponin I High Sens (<3.5-17.0) ng/L B-Natriuretic Peptide Total Protein (6.5-8.0) g/dL Albumin (3.5-5.0) g/dL Lipase (8-78) U/L Urine Color Urine Appearance Urine pH (5.0-8.0) Ur Specific [place] (1.005-1.025) Urine Protein (NEG-TRACE) MG/DL Urine Glucose (UA) (NEG) MG/DL Urine Ketones (NEG) MG/DL Urine Blood (NEG) Urine Nitrite (NEG) Ur Leukocyte Esterase (NEG) Urine RBC (0) /HPF Urine WBC (0-4) /HPF Ur Squamous Epith Cells /LPF Ur Renal Epithelial Cell /LPF Urine Bacteria /LPF Urine Mucus /LPF Influenza Type A (PCR) (Negative) Influenza Type B (PCR) (Negative) RSV RNA Qual (PCR) (Negative) SARS-CoV-2 RNA (RT-PCR) (Negative) <Kamron Thrasher MD - Last Filed: 11/27/21 15:09> Lab Results 11/26/21 11/26/21 11/26/21 Range/Units 18:17 18:17 18:17 WBC 5.6 (4.8-10.8) X10*3/uL RBC 4.33 (4.20-5.50) X10*6/uL Hgb 12.8 (12.0-16.0) g/dl Hct 39.4 (37.0-47.0) % MCV 91.0 (80.0-98.0) fL MCH 29.6 (27.0-33.0) pg MCHC 32.5 (31.0-35.0) g/dl RDW 14.6 (11.0-16.0) % Plt Count 126 L (160-400) X10*3/uL MPV 10.9 (9.4-12.3) fL Immature Gran % (Auto) 0.5 H (0.0-0.4) % Neut % (Auto) 80.3 H (45-73) % Lymph % (Auto) 6.6 L (20-40) % [place] % (Auto) 12.0 H (2-11) % Eos % (Auto) 0.4 (0-4) % Baso % (Auto) 0.2 (0-2) % Lymph # (Auto) 0.4 L (1.2-4.9) X10*3/uL [place] # (Auto) 0.7 (0.1-1.2) X10*3/uL Eos # (Auto) 0.0 (0.0-0.4) X10*3/uL Baso # (Auto) 0.0 (0.0-0.2) X10*3/uL Abs Immat Gran (auto) 0.03 (0.00-0.03) X10*3/uL Absolute Neuts (auto) 4.5 (2.0-8.3) x10*3/uL Absolute Nucleated RBC 0.000 (0.0-0.012) X10*3/uL Nucleated RBC % (auto) 0.0 (0.0-0.2) /100WBC PT (9.9-13.0) SEC INR (0.9-1.1) APTT (24.1-38.0) SEC D-Dimer High Sensitivty NG/ML Sodium 143 (135-145) mmol/L Potassium 3.7 (3.3-5.1) mmol/L Chloride 106 (96-108) mmol/L Carbon Dioxide 30 H (22-29) mmol/L Anion Gap 11 L (12-20) BUN 19 H (9-16) mg/dL Creatinine 1.37 (0.5-1.4) mg/dL Estim Creat Clear Calc 33.5 Estimated GFR 37 POC Glucose (60-115) mg/dL Random Glucose 143 H (60-115) mg/dL Lactic Acid (0.5-2.0) mmol/L Calcium 10.0 (8.4-10.2) mg/dL Ferritin (10-250) ng/mL Total Bilirubin 0.7 (0.0-1.0) mg/dL AST 137 H (5-31) U/L ALT 108 H (0-31) U/L Alkaline Phosphatase 121 H (39-117) U/L Lactate Dehydrogenase (122-220) U/L Troponin I High Sens (<3.5-17.0) ng/L B-Natriuretic Peptide Total Protein 7.6 (6.5-8.0) g/dL Albumin 4.1 (3.5-5.0) g/dL Lipase 38 (8-78) U/L Urine Color Urine Appearance Urine pH (5.0-8.0) Ur Specific [place] (1.005-1.025) Urine Protein (NEG-TRACE) MG/DL Urine Glucose (UA) (NEG) MG/DL Urine Ketones (NEG) MG/DL Urine Blood (NEG) Urine Nitrite (NEG) Ur Leukocyte Esterase (NEG) Urine RBC (0) /HPF Urine WBC (0-4) /HPF Ur Squamous Epith Cells /LPF Ur Renal Epithelial Cell /LPF Urine Bacteria /LPF Urine Mucus /LPF Influenza Type A (PCR) NEGATIVE (Negative) Influenza Type B (PCR) NEGATIVE (Negative) RSV RNA Qual (PCR) NEGATIVE (Negative) SARS-CoV-2 RNA (RT-PCR) POSITIVE A (Negative) 11/26/21 11/26/21 11/26/21 Range/Units 18:17 18:17 18:17 WBC (4.8-10.8) X10*3/uL RBC (4.20-5.50) X10*6/uL Hgb (12.0-16.0) g/dl Hct (37.0-47.0) % MCV (80.0-98.0) fL MCH (27.0-33.0) pg MCHC (31.0-35.0) g/dl RDW (11.0-16.0) % Plt Count (160-400) X10*3/uL MPV (9.4-12.3) fL Immature Gran % (Auto) (0.0-0.4) % Neut % (Auto) (45-73) % Lymph % (Auto) (20-40) % [place] % (Auto) (2-11) % Eos % (Auto) (0-4) % Baso % (Auto) (0-2) % Lymph # (Auto) (1.2-4.9) X10*3/uL [place] # (Auto) (0.1-1.2) X10*3/uL Eos # (Auto) (0.0-0.4) X10*3/uL Baso # (Auto) (0.0-0.2) X10*3/uL Abs Immat Gran (auto) (0.00-0.03) X10*3/uL Absolute Neuts (auto) (2.0-8.3) x10*3/uL Absolute Nucleated RBC (0.0-0.012) X10*3/uL Nucleated RBC % (auto) (0.0-0.2) /100WBC PT 11.9 (9.9-13.0) SEC INR 1.0 (0.9-1.1) APTT 30.3 (24.1-38.0) SEC D-Dimer High Sensitivty NG/ML Sodium (135-145) mmol/L Potassium (3.3-5.1) mmol/L Chloride (96-108) mmol/L Carbon Dioxide (22-29) mmol/L Anion Gap (12-20) BUN (9-16) mg/dL Creatinine (0.5-1.4) mg/dL Estim Creat Clear Calc Estimated GFR POC Glucose (60-115) mg/dL Random Glucose (60-115) mg/dL Lactic Acid (0.5-2.0) mmol/L Calcium (8.4-10.2) mg/dL Ferritin (10-250) ng/mL Total Bilirubin (0.0-1.0) mg/dL AST (5-31) U/L ALT (0-31) U/L Alkaline Phosphatase (39-117) U/L Lactate Dehydrogenase (122-220) U/L Troponin I High Sens 30.3 H (<3.5-17.0) ng/L B-Natriuretic Peptide Cancelled 69 Total Protein (6.5-8.0) g/dL Albumin (3.5-5.0) g/dL Lipase (8-78) U/L Urine Color Urine Appearance Urine pH (5.0-8.0) Ur Specific [place] (1.005-1.025) Urine Protein (NEG-TRACE) MG/DL Urine Glucose (UA) (NEG) MG/DL Urine Ketones (NEG) MG/DL Urine Blood (NEG) Urine Nitrite (NEG) Ur Leukocyte Esterase (NEG) Urine RBC (0) /HPF Urine WBC (0-4) /HPF Ur Squamous Epith Cells /LPF Ur Renal Epithelial Cell /LPF Urine Bacteria /LPF Urine Mucus /LPF Influenza Type A (PCR) (Negative) Influenza Type B (PCR) (Negative) RSV RNA Qual (PCR) (Negative) SARS-CoV-2 RNA (RT-PCR) (Negative) 11/26/21 11/26/21 11/27/21 Range/Units 18:18 18:43 13:36 WBC (4.8-10.8) X10*3/uL RBC (4.20-5.50) X10*6/uL Hgb (12.0-16.0) g/dl Hct (37.0-47.0) % MCV (80.0-98.0) fL MCH (27.0-33.0) pg MCHC (31.0-35.0) g/dl RDW (11.0-16.0) % Plt Count (160-400) X10*3/uL MPV (9.4-12.3) fL Immature Gran % (Auto) (0.0-0.4) % Neut % (Auto) (45-73) % Lymph % (Auto) (20-40) % [place] % (Auto) (2-11) % Eos % (Auto) (0-4) % Baso % (Auto) (0-2) % Lymph # (Auto) (1.2-4.9) X10*3/uL [place] # (Auto) (0.1-1.2) X10*3/uL Eos # (Auto) (0.0-0.4) X10*3/uL Baso # (Auto) (0.0-0.2) X10*3/uL Abs Immat Gran (auto) (0.00-0.03) X10*3/uL Absolute Neuts (auto) (2.0-8.3) x10*3/uL Absolute Nucleated RBC (0.0-0.012) X10*3/uL Nucleated RBC % (auto) (0.0-0.2) /100WBC PT (9.9-13.0) SEC INR (0.9-1.1) APTT (24.1-38.0) SEC D-Dimer High Sensitivty NG/ML Sodium (135-145) mmol/L Potassium (3.3-5.1) mmol/L Chloride (96-108) mmol/L Carbon Dioxide (22-29) mmol/L Anion Gap (12-20) BUN (9-16) mg/dL Creatinine (0.5-1.4) mg/dL Estim Creat Clear Calc Estimated GFR POC Glucose 134 H (60-115) mg/dL Random Glucose (60-115) mg/dL Lactic Acid 1.0 (0.5-2.0) mmol/L Calcium (8.4-10.2) mg/dL Ferritin (10-250) ng/mL Total Bilirubin (0.0-1.0) mg/dL AST (5-31) U/L ALT (0-31) U/L Alkaline Phosphatase (39-117) U/L Lactate Dehydrogenase (122-220) U/L Troponin I High Sens (<3.5-17.0) ng/L B-Natriuretic Peptide Total Protein (6.5-8.0) g/dL Albumin (3.5-5.0) g/dL Lipase (8-78) U/L Urine Color YELLOW Urine Appearance CLEAR Urine pH 6.0 (5.0-8.0) Ur Specific [place] 1.020 (1.005-1.025) Urine Protein NEG (NEG-TRACE) MG/DL Urine Glucose (UA) NEG (NEG) MG/DL Urine Ketones NEG (NEG) MG/DL Urine Blood TRACE (NEG) Urine Nitrite NEG (NEG) Ur Leukocyte Esterase NEG (NEG) Urine RBC 0-2 (0) /HPF Urine WBC 0 (0-4) /HPF Ur Squamous Epith Cells 2+ /LPF Ur Renal Epithelial Cell TRACE /LPF Urine Bacteria TRACE /LPF Urine Mucus 1+ /LPF Influenza Type A (PCR) (Negative) Influenza Type B (PCR) (Negative) RSV RNA Qual (PCR) (Negative) SARS-CoV-2 RNA (RT-PCR) (Negative) 11/30/21 11/30/21 12/01/21 Range/Units 13:37 13:37 11:39 WBC 4.6 L 5.5 (4.8-10.8) X10*3/uL RBC 4.52 4.43 (4.20-5.50) X10*6/uL Hgb 13.0 12.9 (12.0-16.0) g/dl Hct 40.7 40.6 (37.0-47.0) % MCV 90.0 91.6 (80.0-98.0) fL MCH 28.8 29.1 (27.0-33.0) pg MCHC 31.9 31.8 (31.0-35.0) g/dl RDW 14.5 14.3 (11.0-16.0) % Plt Count 139 L 137 L (160-400) X10*3/uL MPV 10.5 10.9 (9.4-12.3) fL Immature Gran % (Auto) 0.2 0.5 H (0.0-0.4) % Neut % (Auto) 61.8 78.5 H (45-73) % Lymph % (Auto) 22.4 13.7 L (20-40) % [place] % (Auto) 10.3 7.1 (2-11) % Eos % (Auto) 5.1 H 0.2 (0-4) % Baso % (Auto) 0.2 0.0 (0-2) % Lymph # (Auto) 1.0 L 0.8 L (1.2-4.9) X10*3/uL [place] # (Auto) 0.5 0.4 (0.1-1.2) X10*3/uL Eos # (Auto) 0.2 0.0 (0.0-0.4) X10*3/uL Baso # (Auto) 0.0 0.0 (0.0-0.2) X10*3/uL Abs Immat Gran (auto) 0.01 0.03 (0.00-0.03) X10*3/uL Absolute Neuts (auto) 2.8 4.3 (2.0-8.3) x10*3/uL Absolute Nucleated RBC 0.000 0.000 (0.0-0.012) X10*3/uL Nucleated RBC % (auto) 0.0 0.0 (0.0-0.2) /100WBC PT (9.9-13.0) SEC INR (0.9-1.1) APTT (24.1-38.0) SEC D-Dimer High Sensitivty NG/ML Sodium 142 (135-145) mmol/L Potassium 3.7 (3.3-5.1) mmol/L Chloride 108 (96-108) mmol/L Carbon Dioxide 28 (22-29) mmol/L Anion Gap 10 L (12-20) BUN 27 H (9-16) mg/dL Creatinine 1.18 (0.5-1.4) mg/dL Estim Creat Clear Calc 38.9 Estimated GFR 44 POC Glucose (60-115) mg/dL Random Glucose 116 H (60-115) mg/dL Lactic Acid (0.5-2.0) mmol/L Calcium 10.1 (8.4-10.2) mg/dL Ferritin 152 (10-250) ng/mL Total Bilirubin (0.0-1.0) mg/dL AST (5-31) U/L ALT (0-31) U/L Alkaline Phosphatase (39-117) U/L Lactate Dehydrogenase 199 (122-220) U/L Troponin I High Sens (<3.5-17.0) ng/L B-Natriuretic Peptide Total Protein (6.5-8.0) g/dL Albumin (3.5-5.0) g/dL Lipase (8-78) U/L Urine Color Urine Appearance Urine pH (5.0-8.0) Ur Specific [place] (1.005-1.025) Urine Protein (NEG-TRACE) MG/DL Urine Glucose (UA) (NEG) MG/DL Urine Ketones (NEG) MG/DL Urine Blood (NEG) Urine Nitrite (NEG) Ur Leukocyte Esterase (NEG) Urine RBC (0) /HPF Urine WBC (0-4) /HPF Ur Squamous Epith Cells /LPF Ur Renal Epithelial Cell /LPF Urine Bacteria /LPF Urine Mucus /LPF Influenza Type A (PCR) (Negative) Influenza Type B (PCR) (Negative) RSV RNA Qual (PCR) (Negative) SARS-CoV-2 RNA (RT-PCR) (Negative) 12/01/21 12/01/21 Range/Units 11:39 11:39 WBC (4.8-10.8) X10*3/uL RBC (4.20-5.50) X10*6/uL Hgb (12.0-16.0) g/dl Hct (37.0-47.0) % MCV (80.0-98.0) fL MCH (27.0-33.0) pg MCHC (31.0-35.0) g/dl RDW (11.0-16.0) % Plt Count (160-400) X10*3/uL MPV (9.4-12.3) fL Immature Gran % (Auto) (0.0-0.4) % Neut % (Auto) (45-73) % Lymph % (Auto) (20-40) % [place] % (Auto) (2-11) % Eos % (Auto) (0-4) % Baso % (Auto) (0-2) % Lymph # (Auto) (1.2-4.9) X10*3/uL [place] # (Auto) (0.1-1.2) X10*3/uL Eos # (Auto) (0.0-0.4) X10*3/uL Baso # (Auto) (0.0-0.2) X10*3/uL Abs Immat Gran (auto) (0.00-0.03) X10*3/uL Absolute Neuts (auto) (2.0-8.3) x10*3/uL Absolute Nucleated RBC (0.0-0.012) X10*3/uL Nucleated RBC % (auto) (0.0-0.2) /100WBC PT 11.4 (9.9-13.0) SEC INR 1.0 (0.9-1.1) APTT (24.1-38.0) SEC D-Dimer High Sensitivty 601 NG/ML Sodium 147 H (135-145) mmol/L Potassium 3.8 (3.3-5.1) mmol/L Chloride 108 (96-108) mmol/L Carbon Dioxide 31 H (22-29) mmol/L Anion Gap 12 (12-20) BUN 32 H (9-16) mg/dL Creatinine 1.19 (0.5-1.4) mg/dL Estim Creat Clear Calc 38.6 Estimated GFR 43 POC Glucose (60-115) mg/dL Random Glucose 133 H (60-115) mg/dL Lactic Acid (0.5-2.0) mmol/L Calcium 10.5 H (8.4-10.2) mg/dL Ferritin (10-250) ng/mL Total Bilirubin (0.0-1.0) mg/dL AST (5-31) U/L ALT (0-31) U/L Alkaline Phosphatase (39-117) U/L Lactate Dehydrogenase (122-220) U/L Troponin I High Sens (<3.5-17.0) ng/L B-Natriuretic Peptide Total Protein (6.5-8.0) g/dL Albumin (3.5-5.0) g/dL Lipase (8-78) U/L Urine Color Urine Appearance Urine pH (5.0-8.0) Ur Specific [place] (1.005-1.025) Urine Protein (NEG-TRACE) MG/DL Urine Glucose (UA) (NEG) MG/DL Urine Ketones (NEG) MG/DL Urine Blood (NEG) Urine Nitrite (NEG) Ur Leukocyte Esterase (NEG) Urine RBC (0) /HPF Urine WBC (0-4) /HPF Ur Squamous Epith Cells /LPF Ur Renal Epithelial Cell /LPF Urine Bacteria /LPF Urine Mucus /LPF Influenza Type A (PCR) (Negative) Influenza Type B (PCR) (Negative) RSV RNA Qual (PCR) (Negative) SARS-CoV-2 RNA (RT-PCR) (Negative) <Yinka Weiss MD - Last Filed: 11/29/21 08:56> Lab Results 11/26/21 11/26/21 11/26/21 Range/Units 18:17 18:17 18:17 WBC 5.6 (4.8-10.8) X10*3/uL RBC 4.33 (4.20-5.50) X10*6/uL Hgb 12.8 (12.0-16.0) g/dl Hct 39.4 (37.0-47.0) % MCV 91.0 (80.0-98.0) fL MCH 29.6 (27.0-33.0) pg MCHC 32.5 (31.0-35.0) g/dl RDW 14.6 (11.0-16.0) % Plt Count 126 L (160-400) X10*3/uL MPV 10.9 (9.4-12.3) fL Immature Gran % (Auto) 0.5 H (0.0-0.4) % Neut % (Auto) 80.3 H (45-73) % Lymph % (Auto) 6.6 L (20-40) % [place] % (Auto) 12.0 H (2-11) % Eos % (Auto) 0.4 (0-4) % Baso % (Auto) 0.2 (0-2) % Lymph # (Auto) 0.4 L (1.2-4.9) X10*3/uL [place] # (Auto) 0.7 (0.1-1.2) X10*3/uL Eos # (Auto) 0.0 (0.0-0.4) X10*3/uL Baso # (Auto) 0.0 (0.0-0.2) X10*3/uL Abs Immat Gran (auto) 0.03 (0.00-0.03) X10*3/uL Absolute Neuts (auto) 4.5 (2.0-8.3) x10*3/uL Absolute Nucleated RBC 0.000 (0.0-0.012) X10*3/uL Nucleated RBC % (auto) 0.0 (0.0-0.2) /100WBC PT (9.9-13.0) SEC INR (0.9-1.1) APTT (24.1-38.0) SEC D-Dimer High Sensitivty NG/ML Sodium 143 (135-145) mmol/L Potassium 3.7 (3.3-5.1) mmol/L Chloride 106 (96-108) mmol/L Carbon Dioxide 30 H (22-29) mmol/L Anion Gap 11 L (12-20) BUN 19 H (9-16) mg/dL Creatinine 1.37 (0.5-1.4) mg/dL Estim Creat Clear Calc 33.5 Estimated GFR 37 POC Glucose (60-115) mg/dL Random Glucose 143 H (60-115) mg/dL Lactic Acid (0.5-2.0) mmol/L Calcium 10.0 (8.4-10.2) mg/dL Ferritin (10-250) ng/mL Total Bilirubin 0.7 (0.0-1.0) mg/dL AST 137 H (5-31) U/L ALT 108 H (0-31) U/L Alkaline Phosphatase 121 H (39-117) U/L Lactate Dehydrogenase (122-220) U/L Troponin I High Sens (<3.5-17.0) ng/L B-Natriuretic Peptide Total Protein 7.6 (6.5-8.0) g/dL Albumin 4.1 (3.5-5.0) g/dL Lipase 38 (8-78) U/L Urine Color Urine Appearance Urine pH (5.0-8.0) Ur Specific [place] (1.005-1.025) Urine Protein (NEG-TRACE) MG/DL Urine Glucose (UA) (NEG) MG/DL Urine Ketones (NEG) MG/DL Urine Blood (NEG) Urine Nitrite (NEG) Ur Leukocyte Esterase (NEG) Urine RBC (0) /HPF Urine WBC (0-4) /HPF Ur Squamous Epith Cells /LPF Ur Renal Epithelial Cell /LPF Urine Bacteria /LPF Urine Mucus /LPF Influenza Type A (PCR) NEGATIVE (Negative) Influenza Type B (PCR) NEGATIVE (Negative) RSV RNA Qual (PCR) NEGATIVE (Negative) SARS-CoV-2 RNA (RT-PCR) POSITIVE A (Negative) 11/26/21 11/26/21 11/26/21 Range/Units 18:17 18:17 18:17 WBC (4.8-10.8) X10*3/uL RBC (4.20-5.50) X10*6/uL Hgb (12.0-16.0) g/dl Hct (37.0-47.0) % MCV (80.0-98.0) fL MCH (27.0-33.0) pg MCHC (31.0-35.0) g/dl RDW (11.0-16.0) % Plt Count (160-400) X10*3/uL MPV (9.4-12.3) fL Immature Gran % (Auto) (0.0-0.4) % Neut % (Auto) (45-73) % Lymph % (Auto) (20-40) % Dickenson % (Auto) (2-11) % Eos % (Auto) (0-4) % Baso % (Auto) (0-2) % Lymph # (Auto) (1.2-4.9) X10*3/uL [place] # (Auto) (0.1-1.2) X10*3/uL Eos # (Auto) (0.0-0.4) X10*3/uL Baso # (Auto) (0.0-0.2) X10*3/uL Abs Immat Gran (auto) (0.00-0.03) X10*3/uL Absolute Neuts (auto) (2.0-8.3) x10*3/uL Absolute Nucleated RBC (0.0-0.012) X10*3/uL Nucleated RBC % (auto) (0.0-0.2) /100WBC PT 11.9 (9.9-13.0) SEC INR 1.0 (0.9-1.1) APTT 30.3 (24.1-38.0) SEC D-Dimer High Sensitivty NG/ML Sodium (135-145) mmol/L Potassium (3.3-5.1) mmol/L Chloride (96-108) mmol/L Carbon Dioxide (22-29) mmol/L Anion Gap (12-20) BUN (9-16) mg/dL Creatinine (0.5-1.4) mg/dL Estim Creat Clear Calc Estimated GFR POC Glucose (60-115) mg/dL Random Glucose (60-115) mg/dL Lactic Acid (0.5-2.0) mmol/L Calcium (8.4-10.2) mg/dL Ferritin (10-250) ng/mL Total Bilirubin (0.0-1.0) mg/dL AST (5-31) U/L ALT (0-31) U/L Alkaline Phosphatase (39-117) U/L Lactate Dehydrogenase (122-220) U/L Troponin I High Sens 30.3 H (<3.5-17.0) ng/L B-Natriuretic Peptide Cancelled 69 Total Protein (6.5-8.0) g/dL Albumin (3.5-5.0) g/dL Lipase (8-78) U/L Urine Color Urine Appearance Urine pH (5.0-8.0) Ur Specific [place] (1.005-1.025) Urine Protein (NEG-TRACE) MG/DL Urine Glucose (UA) (NEG) MG/DL Urine Ketones (NEG) MG/DL Urine Blood (NEG) Urine Nitrite (NEG) Ur Leukocyte Esterase (NEG) Urine RBC (0) /HPF Urine WBC (0-4) /HPF Ur Squamous Epith Cells /LPF Ur Renal Epithelial Cell /LPF Urine Bacteria /LPF Urine Mucus /LPF Influenza Type A (PCR) (Negative) Influenza Type B (PCR) (Negative) RSV RNA Qual (PCR) (Negative) SARS-CoV-2 RNA (RT-PCR) (Negative) 11/26/21 11/26/21 11/27/21 Range/Units 18:18 18:43 13:36 WBC (4.8-10.8) X10*3/uL RBC (4.20-5.50) X10*6/uL Hgb (12.0-16.0) g/dl Hct (37.0-47.0) % MCV (80.0-98.0) fL MCH (27.0-33.0) pg MCHC (31.0-35.0) g/dl RDW (11.0-16.0) % Plt Count (160-400) X10*3/uL MPV (9.4-12.3) fL Immature Gran % (Auto) (0.0-0.4) % Neut % (Auto) (45-73) % Lymph % (Auto) (20-40) % [place]enson % (Auto) (2-11) % Eos % (Auto) (0-4) % Baso % (Auto) (0-2) % Lymph # (Auto) (1.2-4.9) X10*3/uL [place] # (Auto) (0.1-1.2) X10*3/uL Eos # (Auto) (0.0-0.4) X10*3/uL Baso # (Auto) (0.0-0.2) X10*3/uL Abs Immat Gran (auto) (0.00-0.03) X10*3/uL Absolute Neuts (auto) (2.0-8.3) x10*3/uL Absolute Nucleated RBC (0.0-0.012) X10*3/uL Nucleated RBC % (auto) (0.0-0.2) /100WBC PT (9.9-13.0) SEC INR (0.9-1.1) APTT (24.1-38.0) SEC D-Dimer High Sensitivty NG/ML Sodium (135-145) mmol/L Potassium (3.3-5.1) mmol/L Chloride (96-108) mmol/L Carbon Dioxide (22-29) mmol/L Anion Gap (12-20) BUN (9-16) mg/dL Creatinine (0.5-1.4) mg/dL Estim Creat Clear Calc Estimated GFR POC Glucose 134 H (60-115) mg/dL Random Glucose (60-115) mg/dL Lactic Acid 1.0 (0.5-2.0) mmol/L Calcium (8.4-10.2) mg/dL Ferritin (10-250) ng/mL Total Bilirubin (0.0-1.0) mg/dL AST (5-31) U/L ALT (0-31) U/L Alkaline Phosphatase (39-117) U/L Lactate Dehydrogenase (122-220) U/L Troponin I High Sens (<3.5-17.0) ng/L B-Natriuretic Peptide Total Protein (6.5-8.0) g/dL Albumin (3.5-5.0) g/dL Lipase (8-78) U/L Urine Color YELLOW Urine Appearance CLEAR Urine pH 6.0 (5.0-8.0) Ur Specific [place] 1.020 (1.005-1.025) Urine Protein NEG (NEG-TRACE) MG/DL Urine Glucose (UA) NEG (NEG) MG/DL Urine Ketones NEG (NEG) MG/DL Urine Blood TRACE (NEG) Urine Nitrite NEG (NEG) Ur Leukocyte Esterase NEG (NEG) Urine RBC 0-2 (0) /HPF Urine WBC 0 (0-4) /HPF Ur Squamous Epith Cells 2+ /LPF Ur Renal Epithelial Cell TRACE /LPF Urine Bacteria TRACE /LPF Urine Mucus 1+ /LPF Influenza Type A (PCR) (Negative) Influenza Type B (PCR) (Negative) RSV RNA Qual (PCR) (Negative) SARS-CoV-2 RNA (RT-PCR) (Negative) 11/30/21 11/30/21 12/01/21 Range/Units 13:37 13:37 11:39 WBC 4.6 L 5.5 (4.8-10.8) X10*3/uL RBC 4.52 4.43 (4.20-5.50) X10*6/uL Hgb 13.0 12.9 (12.0-16.0) g/dl Hct 40.7 40.6 (37.0-47.0) % MCV 90.0 91.6 (80.0-98.0) fL MCH 28.8 29.1 (27.0-33.0) pg MCHC 31.9 31.8 (31.0-35.0) g/dl RDW 14.5 14.3 (11.0-16.0) % Plt Count 139 L 137 L (160-400) X10*3/uL MPV 10.5 10.9 (9.4-12.3) fL Immature Gran % (Auto) 0.2 0.5 H (0.0-0.4) % Neut % (Auto) 61.8 78.5 H (45-73) % Lymph % (Auto) 22.4 13.7 L (20-40) % [place] % (Auto) 10.3 7.1 (2-11) % Eos % (Auto) 5.1 H 0.2 (0-4) % Baso % (Auto) 0.2 0.0 (0-2) % Lymph # (Auto) 1.0 L 0.8 L (1.2-4.9) X10*3/uL [place] # (Auto) 0.5 0.4 (0.1-1.2) X10*3/uL Eos # (Auto) 0.2 0.0 (0.0-0.4) X10*3/uL Baso # (Auto) 0.0 0.0 (0.0-0.2) X10*3/uL Abs Immat Gran (auto) 0.01 0.03 (0.00-0.03) X10*3/uL Absolute Neuts (auto) 2.8 4.3 (2.0-8.3) x10*3/uL Absolute Nucleated RBC 0.000 0.000 (0.0-0.012) X10*3/uL Nucleated RBC % (auto) 0.0 0.0 (0.0-0.2) /100WBC PT (9.9-13.0) SEC INR (0.9-1.1) APTT (24.1-38.0) SEC D-Dimer High Sensitivty NG/ML Sodium 142 (135-145) mmol/L Potassium 3.7 (3.3-5.1) mmol/L Chloride 108 (96-108) mmol/L Carbon Dioxide 28 (22-29) mmol/L Anion Gap 10 L (12-20) BUN 27 H (9-16) mg/dL Creatinine 1.18 (0.5-1.4) mg/dL Estim Creat Clear Calc 38.9 Estimated GFR 44 POC Glucose (60-115) mg/dL Random Glucose 116 H (60-115) mg/dL Lactic Acid (0.5-2.0) mmol/L Calcium 10.1 (8.4-10.2) mg/dL Ferritin 152 (10-250) ng/mL Total Bilirubin (0.0-1.0) mg/dL AST (5-31) U/L ALT (0-31) U/L Alkaline Phosphatase (39-117) U/L Lactate Dehydrogenase 199 (122-220) U/L Troponin I High Sens (<3.5-17.0) ng/L B-Natriuretic Peptide Total Protein (6.5-8.0) g/dL Albumin (3.5-5.0) g/dL Lipase (8-78) U/L Urine Color Urine Appearance Urine pH (5.0-8.0) Ur Specific [place] (1.005-1.025) Urine Protein (NEG-TRACE) MG/DL Urine Glucose (UA) (NEG) MG/DL Urine Ketones (NEG) MG/DL Urine Blood (NEG) Urine Nitrite (NEG) Ur Leukocyte Esterase (NEG) Urine RBC (0) /HPF Urine WBC (0-4) /HPF Ur Squamous Epith Cells /LPF Ur Renal Epithelial Cell /LPF Urine Bacteria /LPF Urine Mucus /LPF Influenza Type A (PCR) (Negative) Influenza Type B (PCR) (Negative) RSV RNA Qual (PCR) (Negative) SARS-CoV-2 RNA (RT-PCR) (Negative) 12/01/21 12/01/21 Range/Units 11:39 11:39 WBC (4.8-10.8) X10*3/uL RBC (4.20-5.50) X10*6/uL Hgb (12.0-16.0) g/dl Hct (37.0-47.0) % MCV (80.0-98.0) fL MCH (27.0-33.0) pg MCHC (31.0-35.0) g/dl RDW (11.0-16.0) % Plt Count (160-400) X10*3/uL MPV (9.4-12.3) fL Immature Gran % (Auto) (0.0-0.4) % Neut % (Auto) (45-73) % Lymph % (Auto) (20-40) % [place] % (Auto) (2-11) % Eos % (Auto) (0-4) % Baso % (Auto) (0-2) % Lymph # (Auto) (1.2-4.9) X10*3/uL [place] # (Auto) (0.1-1.2) X10*3/uL Eos # (Auto) (0.0-0.4) X10*3/uL Baso # (Auto) (0.0-0.2) X10*3/uL Abs Immat Gran (auto) (0.00-0.03) X10*3/uL Absolute Neuts (auto) (2.0-8.3) x10*3/uL Absolute Nucleated RBC (0.0-0.012) X10*3/uL Nucleated RBC % (auto) (0.0-0.2) /100WBC PT 11.4 (9.9-13.0) SEC INR 1.0 (0.9-1.1) APTT (24.1-38.0) SEC D-Dimer High Sensitivty 601 NG/ML Sodium 147 H (135-145) mmol/L Potassium 3.8 (3.3-5.1) mmol/L Chloride 108 (96-108) mmol/L Carbon Dioxide 31 H (22-29) mmol/L Anion Gap 12 (12-20) BUN 32 H (9-16) mg/dL Creatinine 1.19 (0.5-1.4) mg/dL Estim Creat Clear Calc 38.6 Estimated GFR 43 POC Glucose (60-115) mg/dL Random Glucose 133 H (60-115) mg/dL Lactic Acid (0.5-2.0) mmol/L Calcium 10.5 H (8.4-10.2) mg/dL Ferritin (10-250) ng/mL Total Bilirubin (0.0-1.0) mg/dL AST (5-31) U/L ALT (0-31) U/L Alkaline Phosphatase (39-117) U/L Lactate Dehydrogenase (122-220) U/L Troponin I High Sens (<3.5-17.0) ng/L B-Natriuretic Peptide Total Protein (6.5-8.0) g/dL Albumin (3.5-5.0) g/dL Lipase (8-78) U/L Urine Color Urine Appearance Urine pH (5.0-8.0) Ur Specific [place] (1.005-1.025) Urine Protein (NEG-TRACE) MG/DL Urine Glucose (UA) (NEG) MG/DL Urine Ketones (NEG) MG/DL Urine Blood (NEG) Urine Nitrite (NEG) Ur Leukocyte Esterase (NEG) Urine RBC (0) /HPF Urine WBC (0-4) /HPF Ur Squamous Epith Cells /LPF Ur Renal Epithelial Cell /LPF Urine Bacteria /LPF Urine Mucus /LPF Influenza Type A (PCR) (Negative) Influenza Type B (PCR) (Negative) RSV RNA Qual (PCR) (Negative) SARS-CoV-2 RNA (RT-PCR) (Negative) <DO Christie Weber Filed: 11/30/21 14:37> Lab Results 11/26/21 11/26/21 11/26/21 Range/Units 18:17 18:17 18:17 WBC 5.6 (4.8-10.8) X10*3/uL RBC 4.33 (4.20-5.50) X10*6/uL Hgb 12.8 (12.0-16.0) g/dl Hct 39.4 (37.0-47.0) % MCV 91.0 (80.0-98.0) fL MCH 29.6 (27.0-33.0) pg MCHC 32.5 (31.0-35.0) g/dl RDW 14.6 (11.0-16.0) % Plt Count 126 L (160-400) X10*3/uL MPV 10.9 (9.4-12.3) fL Immature Gran % (Auto) 0.5 H (0.0-0.4) % Neut % (Auto) 80.3 H (45-73) % Lymph % (Auto) 6.6 L (20-40) % [place] % (Auto) 12.0 H (2-11) % Eos % (Auto) 0.4 (0-4) % Baso % (Auto) 0.2 (0-2) % Lymph # (Auto) 0.4 L (1.2-4.9) X10*3/uL [place] # (Auto) 0.7 (0.1-1.2) X10*3/uL Eos # (Auto) 0.0 (0.0-0.4) X10*3/uL Baso # (Auto) 0.0 (0.0-0.2) X10*3/uL Abs Immat Gran (auto) 0.03 (0.00-0.03) X10*3/uL Absolute Neuts (auto) 4.5 (2.0-8.3) x10*3/uL Absolute Nucleated RBC 0.000 (0.0-0.012) X10*3/uL Nucleated RBC % (auto) 0.0 (0.0-0.2) /100WBC PT (9.9-13.0) SEC INR (0.9-1.1) APTT (24.1-38.0) SEC D-Dimer High Sensitivty NG/ML Sodium 143 (135-145) mmol/L Potassium 3.7 (3.3-5.1) mmol/L Chloride 106 (96-108) mmol/L Carbon Dioxide 30 H (22-29) mmol/L Anion Gap 11 L (12-20) BUN 19 H (9-16) mg/dL Creatinine 1.37 (0.5-1.4) mg/dL Estim Creat Clear Calc 33.5 Estimated GFR 37 POC Glucose (60-115) mg/dL Random Glucose 143 H (60-115) mg/dL Lactic Acid (0.5-2.0) mmol/L Calcium 10.0 (8.4-10.2) mg/dL Ferritin (10-250) ng/mL Total Bilirubin 0.7 (0.0-1.0) mg/dL AST 137 H (5-31) U/L ALT 108 H (0-31) U/L Alkaline Phosphatase 121 H (39-117) U/L Lactate Dehydrogenase (122-220) U/L Troponin I High Sens (<3.5-17.0) ng/L B-Natriuretic Peptide Total Protein 7.6 (6.5-8.0) g/dL Albumin 4.1 (3.5-5.0) g/dL Lipase 38 (8-78) U/L Urine Color Urine Appearance Urine pH (5.0-8.0) Ur Specific [place] (1.005-1.025) Urine Protein (NEG-TRACE) MG/DL Urine Glucose (UA) (NEG) MG/DL Urine Ketones (NEG) MG/DL Urine Blood (NEG) Urine Nitrite (NEG) Ur Leukocyte Esterase (NEG) Urine RBC (0) /HPF Urine WBC (0-4) /HPF Ur Squamous Epith Cells /LPF Ur Renal Epithelial Cell /LPF Urine Bacteria /LPF Urine Mucus /LPF Influenza Type A (PCR) NEGATIVE (Negative) Influenza Type B (PCR) NEGATIVE (Negative) RSV RNA Qual (PCR) NEGATIVE (Negative) SARS-CoV-2 RNA (RT-PCR) POSITIVE A (Negative) 11/26/21 11/26/21 11/26/21 Range/Units 18:17 18:17 18:17 WBC (4.8-10.8) X10*3/uL RBC (4.20-5.50) X10*6/uL Hgb (12.0-16.0) g/dl Hct (37.0-47.0) % MCV (80.0-98.0) fL MCH (27.0-33.0) pg MCHC (31.0-35.0) g/dl RDW (11.0-16.0) % Plt Count (160-400) X10*3/uL MPV (9.4-12.3) fL Immature Gran % (Auto) (0.0-0.4) % Neut % (Auto) (45-73) % Lymph % (Auto) (20-40) % [place] % (Auto) (2-11) % Eos % (Auto) (0-4) % Baso % (Auto) (0-2) % Lymph # (Auto) (1.2-4.9) X10*3/uL [place] # (Auto) (0.1-1.2) X10*3/uL Eos # (Auto) (0.0-0.4) X10*3/uL Baso # (Auto) (0.0-0.2) X10*3/uL Abs Immat Gran (auto) (0.00-0.03) X10*3/uL Absolute Neuts (auto) (2.0-8.3) x10*3/uL Absolute Nucleated RBC (0.0-0.012) X10*3/uL Nucleated RBC % (auto) (0.0-0.2) /100WBC PT 11.9 (9.9-13.0) SEC INR 1.0 (0.9-1.1) APTT 30.3 (24.1-38.0) SEC D-Dimer High Sensitivty NG/ML Sodium (135-145) mmol/L Potassium (3.3-5.1) mmol/L Chloride (96-108) mmol/L Carbon Dioxide (22-29) mmol/L Anion Gap (12-20) BUN (9-16) mg/dL Creatinine (0.5-1.4) mg/dL Estim Creat Clear Calc Estimated GFR POC Glucose (60-115) mg/dL Random Glucose (60-115) mg/dL Lactic Acid (0.5-2.0) mmol/L Calcium (8.4-10.2) mg/dL Ferritin (10-250) ng/mL Total Bilirubin (0.0-1.0) mg/dL AST (5-31) U/L ALT (0-31) U/L Alkaline Phosphatase (39-117) U/L Lactate Dehydrogenase (122-220) U/L Troponin I High Sens 30.3 H (<3.5-17.0) ng/L B-Natriuretic Peptide Cancelled 69 Total Protein (6.5-8.0) g/dL Albumin (3.5-5.0) g/dL Lipase (8-78) U/L Urine Color Urine Appearance Urine pH (5.0-8.0) Ur Specific [place] (1.005-1.025) Urine Protein (NEG-TRACE) MG/DL Urine Glucose (UA) (NEG) MG/DL Urine Ketones (NEG) MG/DL Urine Blood (NEG) Urine Nitrite (NEG) Ur Leukocyte Esterase (NEG) Urine RBC (0) /HPF Urine WBC (0-4) /HPF Ur Squamous Epith Cells /LPF Ur Renal Epithelial Cell /LPF Urine Bacteria /LPF Urine Mucus /LPF Influenza Type A (PCR) (Negative) Influenza Type B (PCR) (Negative) RSV RNA Qual (PCR) (Negative) SARS-CoV-2 RNA (RT-PCR) (Negative) 11/26/21 11/26/21 11/27/21 Range/Units 18:18 18:43 13:36 WBC (4.8-10.8) X10*3/uL RBC (4.20-5.50) X10*6/uL Hgb (12.0-16.0) g/dl Hct (37.0-47.0) % MCV (80.0-98.0) fL MCH (27.0-33.0) pg MCHC (31.0-35.0) g/dl RDW (11.0-16.0) % Plt Count (160-400) X10*3/uL MPV (9.4-12.3) fL Immature Gran % (Auto) (0.0-0.4) % Neut % (Auto) (45-73) % Lymph % (Auto) (20-40) % [place] % (Auto) (2-11) % Eos % (Auto) (0-4) % Baso % (Auto) (0-2) % Lymph # (Auto) (1.2-4.9) X10*3/uL [place] # (Auto) (0.1-1.2) X10*3/uL Eos # (Auto) (0.0-0.4) X10*3/uL Baso # (Auto) (0.0-0.2) X10*3/uL Abs Immat Gran (auto) (0.00-0.03) X10*3/uL Absolute Neuts (auto) (2.0-8.3) x10*3/uL Absolute Nucleated RBC (0.0-0.012) X10*3/uL Nucleated RBC % (auto) (0.0-0.2) /100WBC PT (9.9-13.0) SEC INR (0.9-1.1) APTT (24.1-38.0) SEC D-Dimer High Sensitivty NG/ML Sodium (135-145) mmol/L Potassium (3.3-5.1) mmol/L Chloride (96-108) mmol/L Carbon Dioxide (22-29) mmol/L Anion Gap (12-20) BUN (9-16) mg/dL Creatinine (0.5-1.4) mg/dL Estim Creat Clear Calc Estimated GFR POC Glucose 134 H (60-115) mg/dL Random Glucose (60-115) mg/dL Lactic Acid 1.0 (0.5-2.0) mmol/L Calcium (8.4-10.2) mg/dL Ferritin (10-250) ng/mL Total Bilirubin (0.0-1.0) mg/dL AST (5-31) U/L ALT (0-31) U/L Alkaline Phosphatase (39-117) U/L Lactate Dehydrogenase (122-220) U/L Troponin I High Sens (<3.5-17.0) ng/L B-Natriuretic Peptide Total Protein (6.5-8.0) g/dL Albumin (3.5-5.0) g/dL Lipase (8-78) U/L Urine Color YELLOW Urine Appearance CLEAR Urine pH 6.0 (5.0-8.0) Ur Specific [place] 1.020 (1.005-1.025) Urine Protein NEG (NEG-TRACE) MG/DL Urine Glucose (UA) NEG (NEG) MG/DL Urine Ketones NEG (NEG) MG/DL Urine Blood TRACE (NEG) Urine Nitrite NEG (NEG) Ur Leukocyte Esterase NEG (NEG) Urine RBC 0-2 (0) /HPF Urine WBC 0 (0-4) /HPF Ur Squamous Epith Cells 2+ /LPF Ur Renal Epithelial Cell TRACE /LPF Urine Bacteria TRACE /LPF Urine Mucus 1+ /LPF Influenza Type A (PCR) (Negative) Influenza Type B (PCR) (Negative) RSV RNA Qual (PCR) (Negative) SARS-CoV-2 RNA (RT-PCR) (Negative) 11/30/21 11/30/21 12/01/21 Range/Units 13:37 13:37 11:39 WBC 4.6 L 5.5 (4.8-10.8) X10*3/uL RBC 4.52 4.43 (4.20-5.50) X10*6/uL Hgb 13.0 12.9 (12.0-16.0) g/dl Hct 40.7 40.6 (37.0-47.0) % MCV 90.0 91.6 (80.0-98.0) fL MCH 28.8 29.1 (27.0-33.0) pg MCHC 31.9 31.8 (31.0-35.0) g/dl RDW 14.5 14.3 (11.0-16.0) % Plt Count 139 L 137 L (160-400) X10*3/uL MPV 10.5 10.9 (9.4-12.3) fL Immature Gran % (Auto) 0.2 0.5 H (0.0-0.4) % Neut % (Auto) 61.8 78.5 H (45-73) % Lymph % (Auto) 22.4 13.7 L (20-40) % [place] % (Auto) 10.3 7.1 (2-11) % Eos % (Auto) 5.1 H 0.2 (0-4) % Baso % (Auto) 0.2 0.0 (0-2) % Lymph # (Auto) 1.0 L 0.8 L (1.2-4.9) X10*3/uL [place] # (Auto) 0.5 0.4 (0.1-1.2) X10*3/uL Eos # (Auto) 0.2 0.0 (0.0-0.4) X10*3/uL Baso # (Auto) 0.0 0.0 (0.0-0.2) X10*3/uL Abs Immat Gran (auto) 0.01 0.03 (0.00-0.03) X10*3/uL Absolute Neuts (auto) 2.8 4.3 (2.0-8.3) x10*3/uL Absolute Nucleated RBC 0.000 0.000 (0.0-0.012) X10*3/uL Nucleated RBC % (auto) 0.0 0.0 (0.0-0.2) /100WBC PT (9.9-13.0) SEC INR (0.9-1.1) APTT (24.1-38.0) SEC D-Dimer High Sensitivty NG/ML Sodium 142 (135-145) mmol/L Potassium 3.7 (3.3-5.1) mmol/L Chloride 108 (96-108) mmol/L Carbon Dioxide 28 (22-29) mmol/L Anion Gap 10 L (12-20) BUN 27 H (9-16) mg/dL Creatinine 1.18 (0.5-1.4) mg/dL Estim Creat Clear Calc 38.9 Estimated GFR 44 POC Glucose (60-115) mg/dL Random Glucose 116 H (60-115) mg/dL Lactic Acid (0.5-2.0) mmol/L Calcium 10.1 (8.4-10.2) mg/dL Ferritin 152 (10-250) ng/mL Total Bilirubin (0.0-1.0) mg/dL AST (5-31) U/L ALT (0-31) U/L Alkaline Phosphatase (39-117) U/L Lactate Dehydrogenase 199 (122-220) U/L Troponin I High Sens (<3.5-17.0) ng/L B-Natriuretic Peptide Total Protein (6.5-8.0) g/dL Albumin (3.5-5.0) g/dL Lipase (8-78) U/L Urine Color Urine Appearance Urine pH (5.0-8.0) Ur Specific [place] (1.005-1.025) Urine Protein (NEG-TRACE) MG/DL Urine Glucose (UA) (NEG) MG/DL Urine Ketones (NEG) MG/DL Urine Blood (NEG) Urine Nitrite (NEG) Ur Leukocyte Esterase (NEG) Urine RBC (0) /HPF Urine WBC (0-4) /HPF Ur Squamous Epith Cells /LPF Ur Renal Epithelial Cell /LPF Urine Bacteria /LPF Urine Mucus /LPF Influenza Type A (PCR) (Negative) Influenza Type B (PCR) (Negative) RSV RNA Qual (PCR) (Negative) SARS-CoV-2 RNA (RT-PCR) (Negative) 12/01/21 12/01/21 Range/Units 11:39 11:39 WBC (4.8-10.8) X10*3/uL RBC (4.20-5.50) X10*6/uL Hgb (12.0-16.0) g/dl Hct (37.0-47.0) % MCV (80.0-98.0) fL MCH (27.0-33.0) pg MCHC (31.0-35.0) g/dl RDW (11.0-16.0) % Plt Count (160-400) X10*3/uL MPV (9.4-12.3) fL Immature Gran % (Auto) (0.0-0.4) % Neut % (Auto) (45-73) % Lymph % (Auto) (20-40) % [place] % (Auto) (2-11) % Eos % (Auto) (0-4) % Baso % (Auto) (0-2) % Lymph # (Auto) (1.2-4.9) X10*3/uL [place] # (Auto) (0.1-1.2) X10*3/uL Eos # (Auto) (0.0-0.4) X10*3/uL Baso # (Auto) (0.0-0.2) X10*3/uL Abs Immat Gran (auto) (0.00-0.03) X10*3/uL Absolute Neuts (auto) (2.0-8.3) x10*3/uL Absolute Nucleated RBC (0.0-0.012) X10*3/uL Nucleated RBC % (auto) (0.0-0.2) /100WBC PT 11.4 (9.9-13.0) SEC INR 1.0 (0.9-1.1) APTT (24.1-38.0) SEC D-Dimer High Sensitivty 601 NG/ML Sodium 147 H (135-145) mmol/L Potassium 3.8 (3.3-5.1) mmol/L Chloride 108 (96-108) mmol/L Carbon Dioxide 31 H (22-29) mmol/L Anion Gap 12 (12-20) BUN 32 H (9-16) mg/dL Creatinine 1.19 (0.5-1.4) mg/dL Estim Creat Clear Calc 38.6 Estimated GFR 43 POC Glucose (60-115) mg/dL Random Glucose 133 H (60-115) mg/dL Lactic Acid (0.5-2.0) mmol/L Calcium 10.5 H (8.4-10.2) mg/dL Ferritin (10-250) ng/mL Total Bilirubin (0.0-1.0) mg/dL AST (5-31) U/L ALT (0-31) U/L Alkaline Phosphatase (39-117) U/L Lactate Dehydrogenase (122-220) U/L Troponin I High Sens (<3.5-17.0) ng/L B-Natriuretic Peptide Total Protein (6.5-8.0) g/dL Albumin (3.5-5.0) g/dL Lipase (8-78) U/L Urine Color Urine Appearance Urine pH (5.0-8.0) Ur Specific [place] (1.005-1.025) Urine Protein (NEG-TRACE) MG/DL Urine Glucose (UA) (NEG) MG/DL Urine Ketones (NEG) MG/DL Urine Blood (NEG) Urine Nitrite (NEG) Ur Leukocyte Esterase (NEG) Urine RBC (0) /HPF Urine WBC (0-4) /HPF Ur Squamous Epith Cells /LPF Ur Renal Epithelial Cell /LPF Urine Bacteria /LPF Urine Mucus /LPF Influenza Type A (PCR) (Negative) Influenza Type B (PCR) (Negative) RSV RNA Qual (PCR) (Negative) SARS-CoV-2 RNA (RT-PCR) (Negative) <JOJO Hester - Last Filed: 12/01/21 19:02> Lab Results 11/26/21 11/26/21 11/26/21 Range/Units 18:17 18:17 18:17 WBC 5.6 (4.8-10.8) X10*3/uL RBC 4.33 (4.20-5.50) X10*6/uL Hgb 12.8 (12.0-16.0) g/dl Hct 39.4 (37.0-47.0) % MCV 91.0 (80.0-98.0) fL MCH 29.6 (27.0-33.0) pg MCHC 32.5 (31.0-35.0) g/dl RDW 14.6 (11.0-16.0) % Plt Count 126 L (160-400) X10*3/uL MPV 10.9 (9.4-12.3) fL Immature Gran % (Auto) 0.5 H (0.0-0.4) % Neut % (Auto) 80.3 H (45-73) % Lymph % (Auto) 6.6 L (20-40) % [place] % (Auto) 12.0 H (2-11) % Eos % (Auto) 0.4 (0-4) % Baso % (Auto) 0.2 (0-2) % Lymph # (Auto) 0.4 L (1.2-4.9) X10*3/uL [place] # (Auto) 0.7 (0.1-1.2) X10*3/uL Eos # (Auto) 0.0 (0.0-0.4) X10*3/uL Baso # (Auto) 0.0 (0.0-0.2) X10*3/uL Abs Immat Gran (auto) 0.03 (0.00-0.03) X10*3/uL Absolute Neuts (auto) 4.5 (2.0-8.3) x10*3/uL Absolute Nucleated RBC 0.000 (0.0-0.012) X10*3/uL Nucleated RBC % (auto) 0.0 (0.0-0.2) /100WBC PT (9.9-13.0) SEC INR (0.9-1.1) APTT (24.1-38.0) SEC D-Dimer High Sensitivty NG/ML Sodium 143 (135-145) mmol/L Potassium 3.7 (3.3-5.1) mmol/L Chloride 106 (96-108) mmol/L Carbon Dioxide 30 H (22-29) mmol/L Anion Gap 11 L (12-20) BUN 19 H (9-16) mg/dL Creatinine 1.37 (0.5-1.4) mg/dL Estim Creat Clear Calc 33.5 Estimated GFR 37 POC Glucose (60-115) mg/dL Random Glucose 143 H (60-115) mg/dL Lactic Acid (0.5-2.0) mmol/L Calcium 10.0 (8.4-10.2) mg/dL Ferritin (10-250) ng/mL Total Bilirubin 0.7 (0.0-1.0) mg/dL AST 137 H (5-31) U/L ALT 108 H (0-31) U/L Alkaline Phosphatase 121 H (39-117) U/L Lactate Dehydrogenase (122-220) U/L Troponin I High Sens (<3.5-17.0) ng/L B-Natriuretic Peptide Total Protein 7.6 (6.5-8.0) g/dL Albumin 4.1 (3.5-5.0) g/dL Lipase 38 (8-78) U/L Urine Color Urine Appearance Urine pH (5.0-8.0) Ur Specific [place] (1.005-1.025) Urine Protein (NEG-TRACE) MG/DL Urine Glucose (UA) (NEG) MG/DL Urine Ketones (NEG) MG/DL Urine Blood (NEG) Urine Nitrite (NEG) Ur Leukocyte Esterase (NEG) Urine RBC (0) /HPF Urine WBC (0-4) /HPF Ur Squamous Epith Cells /LPF Ur Renal Epithelial Cell /LPF Urine Bacteria /LPF Urine Mucus /LPF Influenza Type A (PCR) NEGATIVE (Negative) Influenza Type B (PCR) NEGATIVE (Negative) RSV RNA Qual (PCR) NEGATIVE (Negative) SARS-CoV-2 RNA (RT-PCR) POSITIVE A (Negative) 11/26/21 11/26/21 11/26/21 Range/Units 18:17 18:17 18:17 WBC (4.8-10.8) X10*3/uL RBC (4.20-5.50) X10*6/uL Hgb (12.0-16.0) g/dl Hct (37.0-47.0) % MCV (80.0-98.0) fL MCH (27.0-33.0) pg MCHC (31.0-35.0) g/dl RDW (11.0-16.0) % Plt Count (160-400) X10*3/uL MPV (9.4-12.3) fL Immature Gran % (Auto) (0.0-0.4) % Neut % (Auto) (45-73) % Lymph % (Auto) (20-40) % [place] % (Auto) (2-11) % Eos % (Auto) (0-4) % Baso % (Auto) (0-2) % Lymph # (Auto) (1.2-4.9) X10*3/uL [place] # (Auto) (0.1-1.2) X10*3/uL Eos # (Auto) (0.0-0.4) X10*3/uL Baso # (Auto) (0.0-0.2) X10*3/uL Abs Immat Gran (auto) (0.00-0.03) X10*3/uL Absolute Neuts (auto) (2.0-8.3) x10*3/uL Absolute Nucleated RBC (0.0-0.012) X10*3/uL Nucleated RBC % (auto) (0.0-0.2) /100WBC PT 11.9 (9.9-13.0) SEC INR 1.0 (0.9-1.1) APTT 30.3 (24.1-38.0) SEC D-Dimer High Sensitivty NG/ML Sodium (135-145) mmol/L Potassium (3.3-5.1) mmol/L Chloride (96-108) mmol/L Carbon Dioxide (22-29) mmol/L Anion Gap (12-20) BUN (9-16) mg/dL Creatinine (0.5-1.4) mg/dL Estim Creat Clear Calc Estimated GFR POC Glucose (60-115) mg/dL Random Glucose (60-115) mg/dL Lactic Acid (0.5-2.0) mmol/L Calcium (8.4-10.2) mg/dL Ferritin (10-250) ng/mL Total Bilirubin (0.0-1.0) mg/dL AST (5-31) U/L ALT (0-31) U/L Alkaline Phosphatase (39-117) U/L Lactate Dehydrogenase (122-220) U/L Troponin I High Sens 30.3 H (<3.5-17.0) ng/L B-Natriuretic Peptide Cancelled 69 Total Protein (6.5-8.0) g/dL Albumin (3.5-5.0) g/dL Lipase (8-78) U/L Urine Color Urine Appearance Urine pH (5.0-8.0) Ur Specific [place] (1.005-1.025) Urine Protein (NEG-TRACE) MG/DL Urine Glucose (UA) (NEG) MG/DL Urine Ketones (NEG) MG/DL Urine Blood (NEG) Urine Nitrite (NEG) Ur Leukocyte Esterase (NEG) Urine RBC (0) /HPF Urine WBC (0-4) /HPF Ur Squamous Epith Cells /LPF Ur Renal Epithelial Cell /LPF Urine Bacteria /LPF Urine Mucus /LPF Influenza Type A (PCR) (Negative) Influenza Type B (PCR) (Negative) RSV RNA Qual (PCR) (Negative) SARS-CoV-2 RNA (RT-PCR) (Negative) 11/26/21 11/26/21 11/27/21 Range/Units 18:18 18:43 13:36 WBC (4.8-10.8) X10*3/uL RBC (4.20-5.50) X10*6/uL Hgb (12.0-16.0) g/dl Hct (37.0-47.0) % MCV (80.0-98.0) fL MCH (27.0-33.0) pg MCHC (31.0-35.0) g/dl RDW (11.0-16.0) % Plt Count (160-400) X10*3/uL MPV (9.4-12.3) fL Immature Gran % (Auto) (0.0-0.4) % Neut % (Auto) (45-73) % Lymph % (Auto) (20-40) % [place] % (Auto) (2-11) % Eos % (Auto) (0-4) % Baso % (Auto) (0-2) % Lymph # (Auto) (1.2-4.9) X10*3/uL [place] # (Auto) (0.1-1.2) X10*3/uL Eos # (Auto) (0.0-0.4) X10*3/uL Baso # (Auto) (0.0-0.2) X10*3/uL Abs Immat Gran (auto) (0.00-0.03) X10*3/uL Absolute Neuts (auto) (2.0-8.3) x10*3/uL Absolute Nucleated RBC (0.0-0.012) X10*3/uL Nucleated RBC % (auto) (0.0-0.2) /100WBC PT (9.9-13.0) SEC INR (0.9-1.1) APTT (24.1-38.0) SEC D-Dimer High Sensitivty NG/ML Sodium (135-145) mmol/L Potassium (3.3-5.1) mmol/L Chloride (96-108) mmol/L Carbon Dioxide (22-29) mmol/L Anion Gap (12-20) BUN (9-16) mg/dL Creatinine (0.5-1.4) mg/dL Estim Creat Clear Calc Estimated GFR POC Glucose 134 H (60-115) mg/dL Random Glucose (60-115) mg/dL Lactic Acid 1.0 (0.5-2.0) mmol/L Calcium (8.4-10.2) mg/dL Ferritin (10-250) ng/mL Total Bilirubin (0.0-1.0) mg/dL AST (5-31) U/L ALT (0-31) U/L Alkaline Phosphatase (39-117) U/L Lactate Dehydrogenase (122-220) U/L Troponin I High Sens (<3.5-17.0) ng/L B-Natriuretic Peptide Total Protein (6.5-8.0) g/dL Albumin (3.5-5.0) g/dL Lipase (8-78) U/L Urine Color YELLOW Urine Appearance CLEAR Urine pH 6.0 (5.0-8.0) Ur Specific [place] 1.020 (1.005-1.025) Urine Protein NEG (NEG-TRACE) MG/DL Urine Glucose (UA) NEG (NEG) MG/DL Urine Ketones NEG (NEG) MG/DL Urine Blood TRACE (NEG) Urine Nitrite NEG (NEG) Ur Leukocyte Esterase NEG (NEG) Urine RBC 0-2 (0) /HPF Urine WBC 0 (0-4) /HPF Ur Squamous Epith Cells 2+ /LPF Ur Renal Epithelial Cell TRACE /LPF Urine Bacteria TRACE /LPF Urine Mucus 1+ /LPF Influenza Type A (PCR) (Negative) Influenza Type B (PCR) (Negative) RSV RNA Qual (PCR) (Negative) SARS-CoV-2 RNA (RT-PCR) (Negative) 11/30/21 11/30/21 12/01/21 Range/Units 13:37 13:37 11:39 WBC 4.6 L 5.5 (4.8-10.8) X10*3/uL RBC 4.52 4.43 (4.20-5.50) X10*6/uL Hgb 13.0 12.9 (12.0-16.0) g/dl Hct 40.7 40.6 (37.0-47.0) % MCV 90.0 91.6 (80.0-98.0) fL MCH 28.8 29.1 (27.0-33.0) pg MCHC 31.9 31.8 (31.0-35.0) g/dl RDW 14.5 14.3 (11.0-16.0) % Plt Count 139 L 137 L (160-400) X10*3/uL MPV 10.5 10.9 (9.4-12.3) fL Immature Gran % (Auto) 0.2 0.5 H (0.0-0.4) % Neut % (Auto) 61.8 78.5 H (45-73) % Lymph % (Auto) 22.4 13.7 L (20-40) % Dickenson % (Auto) 10.3 7.1 (2-11) % Eos % (Auto) 5.1 H 0.2 (0-4) % Baso % (Auto) 0.2 0.0 (0-2) % Lymph # (Auto) 1.0 L 0.8 L (1.2-4.9) X10*3/uL Dickenson # (Auto) 0.5 0.4 (0.1-1.2) X10*3/uL Eos # (Auto) 0.2 0.0 (0.0-0.4) X10*3/uL Baso # (Auto) 0.0 0.0 (0.0-0.2) X10*3/uL Abs Immat Gran (auto) 0.01 0.03 (0.00-0.03) X10*3/uL Absolute Neuts (auto) 2.8 4.3 (2.0-8.3) x10*3/uL Absolute Nucleated RBC 0.000 0.000 (0.0-0.012) X10*3/uL Nucleated RBC % (auto) 0.0 0.0 (0.0-0.2) /100WBC PT (9.9-13.0) SEC INR (0.9-1.1) APTT (24.1-38.0) SEC D-Dimer High Sensitivty NG/ML Sodium 142 (135-145) mmol/L Potassium 3.7 (3.3-5.1) mmol/L Chloride 108 (96-108) mmol/L Carbon Dioxide 28 (22-29) mmol/L Anion Gap 10 L (12-20) BUN 27 H (9-16) mg/dL Creatinine 1.18 (0.5-1.4) mg/dL Estim Creat Clear Calc 38.9 Estimated GFR 44 POC Glucose (60-115) mg/dL Random Glucose 116 H (60-115) mg/dL Lactic Acid (0.5-2.0) mmol/L Calcium 10.1 (8.4-10.2) mg/dL Ferritin 152 (10-250) ng/mL Total Bilirubin (0.0-1.0) mg/dL AST (5-31) U/L ALT (0-31) U/L Alkaline Phosphatase (39-117) U/L Lactate Dehydrogenase 199 (122-220) U/L Troponin I High Sens (<3.5-17.0) ng/L B-Natriuretic Peptide Total Protein (6.5-8.0) g/dL Albumin (3.5-5.0) g/dL Lipase (8-78) U/L Urine Color Urine Appearance Urine pH (5.0-8.0) Ur Specific [place] (1.005-1.025) Urine Protein (NEG-TRACE) MG/DL Urine Glucose (UA) (NEG) MG/DL Urine Ketones (NEG) MG/DL Urine Blood (NEG) Urine Nitrite (NEG) Ur Leukocyte Esterase (NEG) Urine RBC (0) /HPF Urine WBC (0-4) /HPF Ur Squamous Epith Cells /LPF Ur Renal Epithelial Cell /LPF Urine Bacteria /LPF Urine Mucus /LPF Influenza Type A (PCR) (Negative) Influenza Type B (PCR) (Negative) RSV RNA Qual (PCR) (Negative) SARS-CoV-2 RNA (RT-PCR) (Negative) 12/01/21 12/01/21 Range/Units 11:39 11:39 WBC (4.8-10.8) X10*3/uL RBC (4.20-5.50) X10*6/uL Hgb (12.0-16.0) g/dl Hct (37.0-47.0) % MCV (80.0-98.0) fL MCH (27.0-33.0) pg MCHC (31.0-35.0) g/dl RDW (11.0-16.0) % Plt Count (160-400) X10*3/uL MPV (9.4-12.3) fL Immature Gran % (Auto) (0.0-0.4) % Neut % (Auto) (45-73) % Lymph % (Auto) (20-40) % Dickenson % (Auto) (2-11) % Eos % (Auto) (0-4) % Baso % (Auto) (0-2) % Lymph # (Auto) (1.2-4.9) X10*3/uL Dickenson # (Auto) (0.1-1.2) X10*3/uL Eos # (Auto) (0.0-0.4) X10*3/uL Baso # (Auto) (0.0-0.2) X10*3/uL Abs Immat Gran (auto) (0.00-0.03) X10*3/uL Absolute Neuts (auto) (2.0-8.3) x10*3/uL Absolute Nucleated RBC (0.0-0.012) X10*3/uL Nucleated RBC % (auto) (0.0-0.2) /100WBC PT 11.4 (9.9-13.0) SEC INR 1.0 (0.9-1.1) APTT (24.1-38.0) SEC D-Dimer High Sensitivty 601 NG/ML Sodium 147 H (135-145) mmol/L Potassium 3.8 (3.3-5.1) mmol/L Chloride 108 (96-108) mmol/L Carbon Dioxide 31 H (22-29) mmol/L Anion Gap 12 (12-20) BUN 32 H (9-16) mg/dL Creatinine 1.19 (0.5-1.4) mg/dL Estim Creat Clear Calc 38.6 Estimated GFR 43 POC Glucose (60-115) mg/dL Random Glucose 133 H (60-115) mg/dL Lactic Acid (0.5-2.0) mmol/L Calcium 10.5 H (8.4-10.2) mg/dL Ferritin (10-250) ng/mL Total Bilirubin (0.0-1.0) mg/dL AST (5-31) U/L ALT (0-31) U/L Alkaline Phosphatase (39-117) U/L Lactate Dehydrogenase (122-220) U/L Troponin I High Sens (<3.5-17.0) ng/L B-Natriuretic Peptide Total Protein (6.5-8.0) g/dL Albumin (3.5-5.0) g/dL Lipase (8-78) U/L Urine Color Urine Appearance Urine pH (5.0-8.0) Ur Specific [place] (1.005-1.025) Urine Protein (NEG-TRACE) MG/DL Urine Glucose (UA) (NEG) MG/DL Urine Ketones (NEG) MG/DL Urine Blood (NEG) Urine Nitrite (NEG) Ur Leukocyte Esterase (NEG) Urine RBC (0) /HPF Urine WBC (0-4) /HPF Ur Squamous Epith Cells /LPF Ur Renal Epithelial Cell /LPF Urine Bacteria /LPF Urine Mucus /LPF Influenza Type A (PCR) (Negative) Influenza Type B (PCR) (Negative) RSV RNA Qual (PCR) (Negative) SARS-CoV-2 RNA (RT-PCR) (Negative) <JOJO March - Last Filed: 12/02/21 00:44> Discharge Plan Discharge Clinical Impression: Weakness, COVID-19, Hypoxia <Dave Arvizu MD - Last Filed: 11/26/21 18:55> Patient Disposition: Admitted As Inpatient <Dave Arvizu MD - Last Filed: 11/26/21 18:55>
[2021-11-26 18:27] LABS: MANUAL DIFF FLAG NO
[2021-11-26] MEDS: 0.9 % Sodium Chloride 1,000 ML 999 ML IV (18:29)
[2021-11-26 18:30] LABS: Prothrombin Time 11.9 SEC (9.9-13.0)
[2021-11-26] MEDS: Acetaminophen 325 MG TABLET 975 MG PO (18:30)
[2021-11-26 18:31] LABS: Basophils Percent Auto 0.2 % (0-2); Eosinophils Percent Auto 0.4 % (0-4); Hematocrit 39.4 % (37.0-47.0); Hemoglobin 12.8 g/dl (12.0-16.0); Imm Gran Abs Auto 0.03 X10*3/uL (0.00-0.03); Imm Gran Pct Auto 0.5 % (0.0-0.4); Lymphocytes Absolute Auto 0.4 X10*3/uL (1.2-4.9); Lymphocytes Percent Auto 6.6 % (20-40); Mean Corpuscular HGB Conc 32.5 g/dl (31.0-35.0); Mean Corpuscular Hemoglobin 29.6 pg (27.0-33.0); Mean Platelet Volume 10.9 fL (9.4-12.3); Monocytes Absolute Auto 0.7 X10*3/uL (0.1-1.2); Neutrophils Absolute Auto 4.5 x10*3/uL (2.0-8.3); Neutrophils Percent Auto 80.3 % (45-73); Platelet Count 126 X10*3/uL (160-400); Red Blood Count 4.33 X10*6/uL (4.20-5.50); Red Cell Distribution Width 14.6 % (11.0-16.0); White Blood Count 5.6 X10*3/uL (4.8-10.8)
[2021-11-26 18:32] LABS: Partial Thromboplastin Time 30.3 SEC (24.1-38.0)
[2021-11-26] MEDS: Piperacillin Sodium/Tazobactam 3.375 GM in 0.9 % Sodium Chloride 50 ML IV (18:39)
[2021-11-26 18:42] LABS: Alanine Aminotransferase 108 U/L (0-31); Albumin Level 4.1 g/dL (3.5-5.0); Alkaline Phosphatase 121 U/L (39-117); Anion Gap 11 (12-20); Aspartate Amino Transferase 137 U/L (5-31); Bilirubin Total 0.7 mg/dL (0.0-1.0); Blood Urea Nitrogen 19 mg/dL (9-16); Carbon Dioxide 30 mmol/L (22-29); Chloride 106 mmol/L (96-108); Creatinine Clr Calc Pharmacy 33.5; Estimated Glomerular Filt Rate 37; Glucose Random 143 mg/dL (60-115); Lipase 38 U/L (8-78); Potassium 3.7 mmol/L (3.3-5.1); Sodium 143 mmol/L (135-145); Total Protein 7.6 g/dL (6.5-8.0)
[2021-11-26 18:45] LABS: B Type Natriuretic Peptide 69 pg/mL (<100); Troponin-I High Sensitivity 30.3 ng/L (<3.5-17.0)
[2021-11-26 18:49] LABS: Appearance Urine CLEAR; Color Urine YELLOW; Glucose Urine UA NEG (NEG); Leukocyte Esterase Urine NEG (NEG); Nitrite Urine NEG (NEG); UACC Culture Trigger NO; Urine Blood TRACE (NEG); Urine Ketones NEG (NEG); Urine Protein NEG (NEG-TRACE)
[2021-11-26 18:56] LABS: Bacteria Urine TRACE /LPF; Mucus Urine 1+ /LPF; RBC Urine 0-2 /HPF (0); Renal Epithelial Cells Urine TRACE /LPF; Squamous Epithelial Cell Urine 2+ /LPF; WBC Urine 0 /HPF (0-4)
[2021-11-26 19:02] LABS: Influenza A PCR NEGATIVE (Negative); Influenza B PCR NEGATIVE (Negative); Resp Syncy Virus RNA Qual PCR NEGATIVE (Negative); SARS COV2 PCR INHOUSE POSITIVE (Negative)
[2021-11-26] MEDS: iohexoL 350 MG/ML 100 ML INFUS..BTL IV (19:31)
--- NOTE | 2021-11-26 20:00 | PC.NURSE ---
ASSUMED CARE OF PT. PT RESTING IN STRETCHER, COVID + PT HAS MASK ON. PT AWAITING FOR PENDING ORDERS. PT ALERT, RESPIRATIONS EASY, N/L. SKIN W/D. WILL CONTINUE TO MONITOR PT.
[2021-11-26 23:40] VITALS: BP 161/58; PULSE 85; RESP 18; TEMP 37.7; O2SAT 92
[2021-11-27 03:31] VITALS: PULSE 76; RESP 16; O2SAT 96
--- NOTE | 2021-11-27 04:18 | PC.NURSE ---
no chg in pt's condition, pt sleeping, wakes to voice, VS obtained. pt awaiting for case mgt. will continue to monitor pt.
--- NOTE | 2021-11-27 05:32 | PC.NURSE ---
pt resting in stretcher, wakes to voice, respirations easy, n/l. skin w/d.
--- NOTE | 2021-11-27 09:37 | MHC.CM.PN ---
Addendum entered by Isabel Dennis 11/27/21 15:38: SNF referrals updated to 50 mile radius: barriers to placement will be pt's + COVID status, [facility] payor status, and dementia (but has HCP) Addendum entered by Isabel Dennis 11/27/21 11:05: Received copies of HCP, POA and MOLST: uploaded to [employer] and copies in chart. Will update STR referrals. Addendum entered by Isabel Dennis 11/27/21 10:29: Received callback from Elena who states she is the pt's HCP and POA. POA form found in EMR from previous visit but not the HCP. CM office fax number given to Elena so that she may send the HCP to assist with placement. Elena states pt resides alone, has 30+ hours/week of compensated [employer] care and is able to ambulate without assistive devices. Elena states that her uncle, pt's son, assists with pt care and transportation as well. PCP is Dr. Andrews. Discussed STR referrals based on payor, [facility] and COVID + facilities. Elena aware that pt may need to transfer out of geographical area d/t above. Elena states there is no one able to care for pt at home d/t her + findings. CM to wait for HCP fax and will extend STR search to 50 miles. Original Note: Received consult for assessment of d/c needs: pt with dementia and unable to participate in assessment. Call placed to pt's alecrElena at [phone]. This number has a pre recorded anti spam VM that does not allow a message to be left. Call placed to alternative number: a man answered who would not identify himself but stated he was not a relative of pt. He states Elena is at work and to call the [phone] number to which this CM states was done. Gentleman states there are no other numbers to reach Elena. Requested he contact her and have her call [facility] ED CM. Pt is COVID +, unknown HCP/guardian status and per EMR, pt will need placement. CM will initiate referrals within the [facility] network but with a + COVID status and ? unknown HCP, this may be a challenge. CM to await callback from Elena and/or attempt to contact her later today.
[2021-11-27 11:36] VITALS: BP 149/84; PULSE 105; RESP 20; TEMP 37.2; O2SAT 94
--- NOTE | 2021-11-27 12:39 | PHA.MEDREC ---
Pharmacy Consult ? Medication Reconciliation Rn completed med rec. pharmacy reviewed..
[2021-11-27] MEDS: Aspirin Enteric Coated 81 MG TABLET.DR PO (12:51)
[2021-11-27] MEDS: Furosemide 20 MG TABLET PO (12:51)
[2021-11-27] MEDS: Donepezil HCl 10 MG TABLET PO (12:51)
[2021-11-27] MEDS: amLODIPine Besylate 5 MG TABLET PO (12:51)
[2021-11-27] MEDS: Atorvastatin Calcium 20 MG TABLET PO (12:52)
[2021-11-27 13:35] VITALS: BP 172/67; PULSE 99; RESP 22; O2SAT 97
[2021-11-27 13:39] LABS: Glucose, Whole Blood 134 mg/dL (60-115)
--- NOTE | 2021-11-27 13:41 | PC.NURSE ---
Addendum entered by Wily Mondragon 11/27/21 13:43: holding other due po meds at this time while awaiting imaging. Original Note: per phlebotomy, pt calling for help. multiple staff responding to pt found face down on r side of stretcher, pt appears to have tried to get up and fell. denies loc. appears to have small lac below r eye, bleeding controlled. provider aware, pt being prepared for ct scan and xray att.
--- NOTE | 2021-11-27 13:59 | PC.NURSE ---
cleaned of incontinent bm and urine.
[2021-11-27] MEDS: Montelukast Sodium 10 MG TABLET PO (14:59)
[2021-11-27 15:00] VITALS: BP 172/69
[2021-11-27] MEDS: Omeprazole 40 MG CAPSULE.DR PO (15:00)
[2021-11-27] MEDS: Memantine HCl 10 MG TABLET PO (15:00)
[2021-11-27] MEDS: lisinopriL 20 MG TABLET PO (15:00)
--- NOTE | 2021-11-27 19:34 | PC.NURSE ---
pt awake, pt in NAD, respirations easy, n/l. skin w/d/p. pt awaiting for further orders.
[2021-11-27 20:56] VITALS: BP 167/82; PULSE 84; RESP 18; TEMP 37.1; O2SAT 91
[2021-11-28] VITALS (9 sets, daily range): BP systolic 106–148; BP diastolic 53–96; PULSE 73–95; RESP 16–18; TEMP 36.8–37.5; O2SAT 90–98
[2021-11-28] MEDS: Calcium + Vitamin D 250 MG TABLET 500 MG PO ×3 (00:05→21:06)
[2021-11-28] MEDS: Ascorbic Acid 500 MG TABLET PO ×3 (00:06→21:07)
[2021-11-28] MEDS: Mirtazapine 15 MG TABLET PO ×2 (00:06→21:07)
[2021-11-28] MEDS: FLUoxetine HCl 20 MG CAPSULE 40 MG PO ×2 (00:06→21:06)
[2021-11-28] MEDS: traZODone HCL 50 MG TABLET PO ×2 (00:06→21:06)
[2021-11-28] MEDS: Ferrous Sulfate 324 MG TABLET.DR PO ×3 (00:06→21:07)
[2021-11-28] MEDS: Memantine HCl 10 MG TABLET PO ×3 (00:06→21:07)
--- NOTE | 2021-11-28 03:37 | PC.NURSE ---
LAB CALLED AND INFORMED MD THAT BC THAT WHERE DRAWN ON 11/26 ARE +. BC X 2 REDRAWN TO LAB.
[2021-11-28] MEDS: Furosemide 20 MG TABLET PO (08:35)
[2021-11-28] MEDS: amLODIPine Besylate 5 MG TABLET PO (08:35)
[2021-11-28] MEDS: Donepezil HCl 10 MG TABLET PO (08:35)
[2021-11-28] MEDS: Loratadine 10 MG TABLET PO (08:36)
[2021-11-28] MEDS: Aspirin Enteric Coated 81 MG TABLET.DR PO (08:36)
[2021-11-28] MEDS: Montelukast Sodium 10 MG TABLET PO (08:36)
[2021-11-28] MEDS: Atorvastatin Calcium 20 MG TABLET PO (08:36)
[2021-11-28] MEDS: Omeprazole 40 MG CAPSULE.DR PO (08:36)
[2021-11-28] MEDS: lisinopriL 20 MG TABLET PO (08:36)
[2021-11-29] VITALS (8 sets, daily range): BP systolic 99–141; BP diastolic 50–85; PULSE 77–93; RESP 14–20; TEMP 36.6; O2SAT 95–97
[2021-11-29] MEDS: Loratadine 10 MG TABLET PO (08:23)
[2021-11-29] MEDS: Omeprazole 40 MG CAPSULE.DR PO (08:23)
[2021-11-29] MEDS: Ferrous Sulfate 324 MG TABLET.DR PO ×2 (08:23→21:29)
[2021-11-29] MEDS: Ascorbic Acid 500 MG TABLET PO ×2 (08:23→21:29)
[2021-11-29] MEDS: Montelukast Sodium 10 MG TABLET PO (08:23)
[2021-11-29] MEDS: Calcium + Vitamin D 250 MG TABLET 500 MG PO ×2 (08:23→21:28)
[2021-11-29] MEDS: Atorvastatin Calcium 20 MG TABLET PO (08:23)
[2021-11-29] MEDS: lisinopriL 20 MG TABLET PO (08:24)
[2021-11-29] MEDS: Furosemide 20 MG TABLET PO (08:24)
[2021-11-29] MEDS: Donepezil HCl 10 MG TABLET PO (08:24)
[2021-11-29] MEDS: Aspirin Enteric Coated 81 MG TABLET.DR PO (08:24)
[2021-11-29] MEDS: Memantine HCl 10 MG TABLET PO ×2 (08:24→21:29)
[2021-11-29] MEDS: amLODIPine Besylate 5 MG TABLET PO (08:24)
[2021-11-29] MEDS: Mirabegron 50 MG TAB.ER.24H PO (09:02)
--- NOTE | 2021-11-29 09:20 | MHC.CM.ED ---
Addendum entered by Elsie Ribera 11/29/21 09:56: Received telephone call from patient's granddaughter/HCP, Elena. Verbal updated provided regarding bedsearch. Elena would not want patient to be out in the [place] area because she would not be able to get there if there was an emergency. T/W verbalized understanding and encouraged Elena to see what bed offers can be made. Original Note: Patient remains in ER. PT eval ordered and pending. Patient positive for Covid on 11/26. Clinical updates sent via [employer] to all facilities still following patient: [facility], [facility], [place], [place], [facility], [facility], [facility], [facility], [place] and [facility]. Continue to monitor for d/c needs.
[2021-11-29] MEDS: FLUoxetine HCl 20 MG CAPSULE 40 MG PO (21:28)
[2021-11-29] MEDS: traZODone HCL 50 MG TABLET PO (21:28)
[2021-11-29] MEDS: Mirtazapine 15 MG TABLET PO (21:28)
--- NOTE | 2021-11-29 22:37 | PC.NURSE ---
cleaned patient up, put new purewick. gave warm blanket.
[2021-11-30] VITALS (9 sets, daily range): BP systolic 106–159; BP diastolic 54–136; PULSE 80–92; RESP 14–18; TEMP 36.1–37.6; O2SAT 88–97
[2021-11-30] MEDS: Loratadine 10 MG TABLET PO (09:17)
[2021-11-30] MEDS: lisinopriL 20 MG TABLET PO (09:17)
[2021-11-30] MEDS: Atorvastatin Calcium 20 MG TABLET PO (09:17)
[2021-11-30] MEDS: Donepezil HCl 10 MG TABLET PO (09:17)
[2021-11-30] MEDS: Calcium + Vitamin D 250 MG TABLET 500 MG PO ×2 (09:17→22:17)
[2021-11-30] MEDS: amLODIPine Besylate 5 MG TABLET PO (09:17)
[2021-11-30] MEDS: Ferrous Sulfate 324 MG TABLET.DR PO ×2 (09:17→22:17)
[2021-11-30] MEDS: Furosemide 20 MG TABLET PO (09:18)
[2021-11-30] MEDS: Ascorbic Acid 500 MG TABLET PO ×2 (09:18→22:17)
[2021-11-30] MEDS: Montelukast Sodium 10 MG TABLET PO (09:18)
[2021-11-30] MEDS: Omeprazole 40 MG CAPSULE.DR PO (09:18)
[2021-11-30] MEDS: Memantine HCl 10 MG TABLET PO ×2 (09:18→22:17)
[2021-11-30] MEDS: Aspirin Enteric Coated 81 MG TABLET.DR PO (09:18)
--- NOTE | 2021-11-30 09:59 | MHC.CM.ED ---
Patient remains in ER. Currently on oxygen. Patient is not on oxygen at baseline. FACUNDO Cope will attempt to check O2 sat on room air. Continue to monitor for d/c needs.
--- NOTE | 2021-11-30 11:25 | MHC.CM.ED ---
No bed offers available locally. [facility] does have positive Covid beds. Spoke with patient's granddaughter/HCP, Elizabeth via telephone at [phone]. Elizabeth's uncle is now positive for Covid and is unable to help care for patient. Patient and family agreeable to [facility]. Referral made via [employer]. Continue to monitor for d/c needs.
[2021-11-30] MEDS: Fluticasone Propionate Nasal 16 GM SPRAY 1 SPRAY NOSTRIL-B (11:28)
[2021-11-30] MEDS: Mirabegron 50 MG TAB.ER.24H PO (11:28)
--- NOTE | 2021-11-30 11:42 | PC.NURSE ---
patient medicated per order, pt turned/positioned, O2 remains off at this time, patients O2 sat 93% on room air, personal care performed, will continue to monitor.
--- NOTE | 2021-11-30 12:04 | PC.NURSE ---
after a period of time on room air, patients O2 sat decreased to 88% on room air, pt was in semi-fowlers position and O2 probe was placed properly. will notify provider
--- NOTE | 2021-11-30 12:37 | PC.NURSE ---
per provider request, pt was removed from O2, currently patient is 93 on room air.
--- NOTE | 2021-11-30 13:04 | MHC.CM.ED ---
Received notificaiton from Dr Simpson and FACUNDO Kitchen that patiaaron'ts O2 sat dropped to 88% on Room Air. Patient was placed on 2LNC. Patient will be admitted to the hospital. Patient's granddaughter/HCP, Elizabeth made aware via telephone at [phone]. Elizabeth requesting patient be bathed and have help brushing her teeth. T/W spoke with FACUNDO Kitchen. Patient was bathed and had oral care this morning by ROSEANN Joseph. Continue to monitor for d/c needs.
[2021-11-30] MEDS: dexAMETHasone sod phosphate 4 MG/ML VIAL 6 MG IVPUSH (13:09)
[2021-11-30 13:42] LABS: MANUAL DIFF FLAG NO
[2021-11-30 13:45] LABS: Basophils Percent Auto 0.2 % (0-2); Eosinophils Absolute Auto 0.2 X10*3/uL (0.0-0.4); Eosinophils Percent Auto 5.1 % (0-4); Hematocrit 40.7 % (37.0-47.0); Imm Gran Abs Auto 0.01 X10*3/uL (0.00-0.03); Imm Gran Pct Auto 0.2 % (0.0-0.4); Lymphocytes Percent Auto 22.4 % (20-40); Mean Corpuscular HGB Conc 31.9 g/dl (31.0-35.0); Mean Corpuscular Hemoglobin 28.8 pg (27.0-33.0); Mean Platelet Volume 10.5 fL (9.4-12.3); Monocytes Absolute Auto 0.5 X10*3/uL (0.1-1.2); Monocytes Percent Auto 10.3 % (2-11); Neutrophils Absolute Auto 2.8 x10*3/uL (2.0-8.3); Neutrophils Percent Auto 61.8 % (45-73); Platelet Count 139 X10*3/uL (160-400); Red Blood Count 4.52 X10*6/uL (4.20-5.50); Red Cell Distribution Width 14.5 % (11.0-16.0); White Blood Count 4.6 X10*3/uL (4.8-10.8)
[2021-11-30 14:02] LABS: Anion Gap 10 (12-20); Blood Urea Nitrogen 27 mg/dL (9-16); Calcium 10.1 mg/dL (8.4-10.2); Carbon Dioxide 28 mmol/L (22-29); Chloride 108 mmol/L (96-108); Creatinine Clr Calc Pharmacy 38.9; Estimated Glomerular Filt Rate 44; Glucose Random 116 mg/dL (60-115); Lactate Dehydrogenase 199 U/L (122-220); Potassium 3.7 mmol/L (3.3-5.1); Sodium 142 mmol/L (135-145)
[2021-11-30 14:23] LABS: Ferritin 152 ng/mL (10-250)
--- NOTE | 2021-11-30 14:43 | MHC.CM.ED ---
Received notification from Dr Albright that patient would be not admitted because she is only requiring 2LNC of oxygen. [facility] follow to see if they can offer a bed tomorrow, 11/30. Continue to monitor for d/c needs.
--- NOTE | 2021-11-30 17:31 | PC.NURSE ---
patient currently sleeping, no c/o pain or discomfort, will continue to monitor.
--- NOTE | 2021-11-30 18:33 | PC.NURSE ---
patient sleeping, woke to verbal stimulus, pt bed changed/katarina care performed, pt turned/position to comfort, call oliver within reach, will continue to monitor.
--- NOTE | 2021-11-30 21:27 | PC.NURSE ---
patient currently sleeping, pure wick intact, covid precautions in place, will continue to monitor
[2021-11-30] MEDS: Mirtazapine 15 MG TABLET PO (22:16)
[2021-11-30] MEDS: FLUoxetine HCl 20 MG CAPSULE 40 MG PO (22:16)
[2021-11-30] MEDS: traZODone HCL 50 MG TABLET PO (22:17)
[2021-12-01] VITALS (7 sets, daily range): BP systolic 105–129; BP diastolic 45–66; PULSE 68–84; RESP 13–18; TEMP 36.4–37; O2SAT 95–100
[2021-12-01] MEDS: Mirabegron 50 MG TAB.ER.24H PO (09:48)
[2021-12-01] MEDS: Calcium + Vitamin D 250 MG TABLET 500 MG PO ×2 (09:48→22:12)
[2021-12-01] MEDS: Loratadine 10 MG TABLET PO (09:48)
[2021-12-01] MEDS: Ferrous Sulfate 324 MG TABLET.DR PO ×2 (09:48→22:13)
[2021-12-01] MEDS: Aspirin Enteric Coated 81 MG TABLET.DR PO (09:49)
[2021-12-01] MEDS: Memantine HCl 10 MG TABLET PO ×2 (09:49→22:14)
[2021-12-01] MEDS: Ascorbic Acid 500 MG TABLET PO ×2 (09:49→22:12)
[2021-12-01] MEDS: dexAMETHasone 6 MG TABLET PO (09:49)
[2021-12-01] MEDS: Furosemide 20 MG TABLET PO (09:49)
[2021-12-01] MEDS: lisinopriL 20 MG TABLET PO (09:49)
[2021-12-01] MEDS: Donepezil HCl 10 MG TABLET PO (09:50)
[2021-12-01] MEDS: Omeprazole 40 MG CAPSULE.DR PO (09:50)
[2021-12-01] MEDS: Atorvastatin Calcium 20 MG TABLET PO (09:50)
[2021-12-01] MEDS: Montelukast Sodium 10 MG TABLET PO (09:50)
[2021-12-01] MEDS: amLODIPine Besylate 5 MG TABLET PO (09:50)
[2021-12-01] MEDS: Fluticasone Propionate Nasal 16 GM SPRAY 1 SPRAY NOSTRIL-B (09:59)
--- NOTE | 2021-12-01 10:07 | PC.NURSE ---
pt is currently resting in the stretcher with her eyes shut, respirations even and unlabored, skin appropriate for ethnicity, pt denies pain, periwick in place and draining well about 300ml of urine in the canister pt took all her morning mediations without any difficulties
[2021-12-01 11:49] LABS: MANUAL DIFF FLAG NO
[2021-12-01 11:58] LABS: Eosinophils Percent Auto 0.2 % (0-4); Hematocrit 40.6 % (37.0-47.0); Hemoglobin 12.9 g/dl (12.0-16.0); Imm Gran Abs Auto 0.03 X10*3/uL (0.00-0.03); Imm Gran Pct Auto 0.5 % (0.0-0.4); Lymphocytes Absolute Auto 0.8 X10*3/uL (1.2-4.9); Lymphocytes Percent Auto 13.7 % (20-40); Mean Corpuscular HGB Conc 31.8 g/dl (31.0-35.0); Mean Corpuscular Hemoglobin 29.1 pg (27.0-33.0); Mean Corpuscular Volume 91.6 fL (80.0-98.0); Mean Platelet Volume 10.9 fL (9.4-12.3); Monocytes Absolute Auto 0.4 X10*3/uL (0.1-1.2); Monocytes Percent Auto 7.1 % (2-11); Neutrophils Absolute Auto 4.3 x10*3/uL (2.0-8.3); Neutrophils Percent Auto 78.5 % (45-73); Platelet Count 137 X10*3/uL (160-400); Red Blood Count 4.43 X10*6/uL (4.20-5.50); Red Cell Distribution Width 14.3 % (11.0-16.0); White Blood Count 5.5 X10*3/uL (4.8-10.8)
[2021-12-01 11:59] LABS: D Dimer High Sensitivity 601 NG/ML
[2021-12-01 12:16] LABS: Anion Gap 12 (12-20); Blood Urea Nitrogen 32 mg/dL (9-16); Calcium 10.5 mg/dL (8.4-10.2); Carbon Dioxide 31 mmol/L (22-29); Chloride 108 mmol/L (96-108); Creatinine Clr Calc Pharmacy 38.6; Estimated Glomerular Filt Rate 43; Glucose Random 133 mg/dL (60-115); Potassium 3.8 mmol/L (3.3-5.1); Sodium 147 mmol/L (135-145)
--- NOTE | 2021-12-01 15:04 | MHC.CM.ED ---
Patient remains in ER. Labs ordered and drawn. D dimer elevated. Chest CT ordered and pending. Continue to monitor for d/c needs.
[2021-12-01] MEDS: iohexoL 350 MG/ML 100 ML INFUS..BTL IV (15:57)
[2021-12-01 20:38] LABS: Prothrombin Time 11.4 SEC (9.9-13.0)
--- NOTE | 2021-12-01 21:31 | PC.NURSE ---
[address] IV fluids not started due to pt not having IV Provider (JOJO March) notified
[2021-12-01] MEDS: FLUoxetine HCl 20 MG CAPSULE 40 MG PO (22:11)
[2021-12-01] MEDS: traZODone HCL 50 MG TABLET PO (22:14)
[2021-12-01] MEDS: Mirtazapine 15 MG TABLET PO (22:14)
--- NOTE | 2021-12-01 23:02 | PM.IMHP ---
History of Present Illness Date of Service: 12/01/21 Chief Complaint: generalized weakness 86-year-old female with a past medical history of hypertension, dementia, CKD, nonalcoholic liver cirrhosis, history of TIA/ CVA; presented to the hospital on 11/26/2021 with a chief complaint of generalized weakness/ fever at home. Patient initial workup was the noted to be positive for COVID-19 but not hypoxic; patient being placed in the ER and was pending placement with the case management in a rehab; On 11/30/2020 patient was noted to be hypoxic to 88% on room air; CT angio of the chest was done which showed no evidence of central pulmonary embolism; patient was placed on supplemental oxygen and decided to admit to the hospital for further evaluation. patient is presently lying in the bed; denies any complaints; I spoke to the patient's family Elena denies any chest pain palpitations lightheadedness or dizziness. Denies any GI symptoms. Review of all other systems is negative except mentioned above ER course: Per ER team patient was initially stable with COVID positive; plan to discharge to a rehab; and later noted to have hypoxic to 88% on room air; placed on supplemental oxygen; not in respiratory distress; CT angio showed no evidence of central pulmonary embolism; given Decadron. Admitted to the hospital for further management. PMFSH Pertinent family history: reviewed Social History Alcohol intake: unknown Patient Tobacco Use Status: Tobacco use Unknown Use of substances other than those prescribed or required for medical reasons: Unknown Advance Directives: No Advance Directives Information Provided: No Meds Allergies Allergy/AdvReac Type Severity Reaction Status Date / Time ceftazidime [Ceftazidime] Allergy Mild UNKNOWN Unverified 08/13/20 15:10 benzocaine [Benzocaine] Allergy Unknown UNKNOWN Unverified 08/13/20 15:10 butamben [From Cetacaine] Allergy Unknown UNKNOWN Unverified 08/13/20 15:10 metoclopramide [From Reglan] Allergy Unknown UNKNOWN Unverified 08/13/20 15:10 morphine [Morphine] Allergy Unknown SWELLING Unverified 08/13/20 15:10 tetracaine [From Cetacaine] Allergy Unknown UNKNOWN Unverified 08/13/20 15:10 Active Medications: Current Medications Amlodipine Besylate (Amlodipine Besylate 5 Mg Tablet) 5 mg PO DAILY [facility]; Protocol Last Admin: 12/01/21 09:50 Dose: 5 mg Documented by: Ascorbic Acid (Ascorbic Acid 500 Mg Tablet) 500 mg PO BID [facility] Last Admin: 12/01/21 22:12 Dose: 500 mg Documented by: Aspirin (Aspirin Enteric Coated 81 Mg Tablet.) 81 mg PO DAILY [facility] Last Admin: 12/01/21 09:49 Dose: 81 mg Documented by: Atorvastatin Calcium (Atorvastatin Calcium 20 Mg Tablet) 20 mg PO DAILY [facility] Last Admin: 12/01/21 09:50 Dose: 20 mg Documented by: Calcium Carbonate/Cholecalciferol (Calcium + Vitamin D 250 Mg Tablet) 500 mg PO BID [facility] Last Admin: 12/01/21 22:12 Dose: 500 mg Documented by: Dexamethasone (Dexamethasone 6 Mg Tablet) 6 mg PO DAILY [facility] Stop: 12/06/21 09:01 Last Admin: 12/01/21 09:49 Dose: 6 mg Documented by: Donepezil HCl (Donepezil Hcl 10 Mg Tablet) 10 mg PO DAILY [facility] Last Admin: 12/01/21 09:50 Dose: 10 mg Documented by: Ferrous Sulfate (Ferrous Sulfate 324 Mg Tablet.) 324 mg PO BID [facility] Last Admin: 12/01/21 22:13 Dose: 324 mg Documented by: Fluoxetine HCl (Fluoxetine Hcl 20 Mg Capsule) 40 mg PO BEDTIME [facility] Last Admin: 12/01/21 22:11 Dose: 40 mg Documented by: Fluticasone Propionate (Fluticasone Propionate Nasal 16 Gm [place]) 1 spray NOSTRIL-B DAILY [facility] Last Admin: 12/01/21 09:59 Dose: 1 spray Documented by: Furosemide (Furosemide 20 Mg Tablet) 20 mg PO DAILY [facility]; Protocol Last Admin: 12/01/21 09:49 Dose: 20 mg Documented by: Lisinopril (Lisinopril 20 Mg Tablet) 20 mg PO DAILY [facility]; Protocol Last Admin: 12/01/21 09:49 Dose: 20 mg Documented by: Loratadine (Loratadine 10 Mg Tablet) 10 mg PO DAILY [facility] Last Admin: 12/01/21 09:48 Dose: 10 mg Documented by: Memantine (Memantine Hcl 10 Mg Tablet) 10 mg PO BID [facility] Last Admin: 12/01/21 22:14 Dose: 10 mg Documented by: Mirabegron (Mirabegron 50 Mg Tab.Er.24h) 50 mg PO DAILY [facility] Last Admin: 12/01/21 09:48 Dose: 50 mg Documented by: Mirtazapine (Mirtazapine 15 Mg Tablet) 15 mg PO BEDTIME [facility] Last Admin: 12/01/21 22:14 Dose: 15 mg Documented by: Montelukast Sodium (Montelukast Sodium 10 Mg Tablet) 10 mg PO DAILY [facility] Last Admin: 12/01/21 09:50 Dose: 10 mg Documented by: Omeprazole (Omeprazole 40 Mg Capsule.Dr) 40 mg PO DAILY [facility] Last Admin: 12/01/21 09:50 Dose: 40 mg Documented by: Trazodone HCl (Trazodone Hcl 50 Mg Tablet) 50 mg PO BEDTIME [facility] Last Admin: 12/01/21 22:14 Dose: 50 mg Documented by: Home Medications Medication Instructions Recorded Confirmed Last Taken Type amlodipine 5 mg tablet 1 tab PO DAILY 11/27/21 11/27/21 Unknown History ascorbic acid (vitamin C) 500 mg 1 tab PO BID 11/27/21 11/27/21 Unknown History tablet (Vitamin C) aspirin 81 mg tablet,delayed 1 tab PO DAILY 11/27/21 11/27/21 Unknown History release atorvastatin 20 mg tablet 1 tab PO DAILY 11/27/21 11/27/21 Unknown History calcium carbonate 600 mg-vitamin 1 tab PO BID 11/27/21 11/27/21 Unknown History D3 5 mcg (200 unit) tablet (Calcium 600 + D(3)) cetirizine 5 mg tablet 1 tab PO DAILY 11/27/21 11/27/21 Unknown History donepezil 10 mg tablet 1 tab PO DAILY 11/27/21 11/27/21 Unknown History ferrous sulfate 325 mg (65 mg 1 tab PO BID 11/27/21 11/27/21 Unknown History iron) tablet,delayed release fluoxetine 40 mg capsule 1 cap PO BEDTIME 11/27/21 11/27/21 Unknown History fluticasone propionate 50 1 spray INTRANASAL DAILY 11/27/21 11/27/21 Unknown History mcg/actuation nasal spray,suspension furosemide 20 mg tablet 1 tab PO DAILY 11/27/21 11/27/21 Unknown History haloperidol lactate 2 mg/mL oral 1 mg PO QPM 11/27/21 11/29/21 Unknown History concentrate lisinopril 20 mg tablet 1 tab PO DAILY 11/27/21 11/27/21 Unknown History memantine 10 mg tablet 1 tab PO BID 11/27/21 11/27/21 Unknown History mirabegron 50 mg tablet,extended 1 tab PO DAILY 11/27/21 11/27/21 Unknown History release 24 hr (Myrbetriq) mirtazapine 15 mg tablet 1 tab PO BEDTIME 11/27/21 11/27/21 Unknown History montelukast 10 mg tablet 1 tab PO DAILY 11/27/21 11/27/21 Unknown History omeprazole 40 mg capsule,delayed 1 cap PO DAILY 11/27/21 11/27/21 Unknown History release trazodone 50 mg tablet 1 tab PO BEDTIME 11/27/21 11/27/21 Unknown History Physical Exam Vital Signs and Narrative: Vital Signs: Last Vital Signs Temp 98.6 F 12/01/21 20:38 Pulse 82 12/01/21 20:38 Resp 16 12/01/21 20:38 BP 128/57 L 12/01/21 20:38 Pulse Ox 96 12/01/21 20:38 BMI result Body Mass Index 31.3 Gen: Appears be in no acute distress . On supplemental oxygen. Speaks in full sentences. HEENT: NCAT, Moist mucosa. Pulmonary: coarse breath sounds, fair air entry CVS: Normal S1-S2 Abdomen: BS+, Soft, Nontender Extremities: Warm well perfused Neuro: Alert and awake. Results Labs CBC and Chem 7: 12/01/21 11:39 12/01/21 11:39 Labs: Laboratory Results - last 24 hr 12/01/21 12/01/21 12/01/21 11:39 11:39 11:39 MCV 91.6 MCH 29.1 MCHC 31.8 RDW 14.3 Plt Count 137 L MPV 10.9 Immature Gran % (Auto) 0.5 H Neut % (Auto) 78.5 H Lymph % (Auto) 13.7 L [place] % (Auto) 7.1 Eos % (Auto) 0.2 Baso % (Auto) 0.0 Lymph # (Auto) 0.8 L [place] # (Auto) 0.4 Eos # (Auto) 0.0 Baso # (Auto) 0.0 Abs Immat Gran (auto) 0.03 Absolute Neuts (auto) 4.3 Absolute Nucleated RBC 0.000 Nucleated RBC % (auto) 0.0 PT 11.4 INR 1.0 D-Dimer High Sensitivty 601 Anion Gap 12 Estim Creat Clear Calc 38.6 Estimated GFR 43 Random Glucose 133 H Calcium 10.5 H Imaging Radiologist's Impressions: Impressions Chest CTA 12/01/21 16:13 IMPRESSION: This examination is nondiagnostic for assessment of segmental and subsegmental pulmonary emboli as above. Similarly, evaluation of small central emboli is limited. No large central emboli are identified. If indicated, consider repeat examination. Large hiatal hernia. Emphysematous changes with multiple subcentimeter pulmonary nodules, the largest in the left upper lobe measuring up to 0.5 cm. If there is no known prior history of cancer, these could be follow-up following Fleischner's Society recommendations (see below). Cirrhotic liver morphology. VTE: indeterminate 2017 Fleischner Society Recommendations for Lung Nodule(s): Follow-Up based on size (average of long- and short-axis diameters). Use most suspicious nodule for followup. Multiple Solid lung nodules < 6 mm: Follow up management based on most suspicious nodule. In a low-risk patient, no routine follow-up imaging is recommended. In a high-risk patient, a non-contrast Chest CT at 12 months is optional. If performed and the nodule is stable at 12 months, no further follow-up is recommended. These guidelines do not apply to patients younger than 35 years, immunocompromised patients, and patients with cancer. F/u in patients with significant comorbidities as clinically warranted. For lung cancer screening, adhere to Lung-RADS guidelines. Reference: Radiology. 2017 May; 284(1):228-243 Assessment and Plan (1) COVID-19: Status: Acute (2) Weakness: Status: Acute 86-year-old female with a past medical history of hypertension, dementia, CKD, nonalcoholic liver cirrhosis, history of TIA/ CVA; presented to the hospital on 11/26/2021 with a chief complaint of generalized weakness/ fever Noted to have COVID-19 positive. Hypoxia: In the setting of COVID-19 infection. On supplemental oxygen. Currently not in distress. Will continue to monitor. COVID 19 infection: Will give the patient on Decadron 6 mg Id consult for further recommendations. Patient tested positive on 11/26/2021. Reportedly patient received 2 doses of motor nerve action in the past. hypertension: Continue home amlodipine, lisinopril hyperlipidemia: Continue home statin Dementia: Continue home memantine and donepezil for all other chronic conditions, continue home medications including Mirabegron, metatarsal pin, Floxin, trazodone DVT prophylaxis: Lovenox Code status: DNR/DNI Quality Stroke Does the patient have a stroke diagnosis?: No VTE Prior VTE?: No VTE Risk Level:: Medical - moderate - high VTE Device Contraindication: Treatment Not Indicated VTE Drug Contraindication: N/A - Med Ordered
--- NOTE | 2021-12-01 23:48 | PC.NURSE ---
provider at bedside to attempt US IV
[2021-12-02] VITALS (9 sets, daily range): BP systolic 120–141; BP diastolic 44–70; PULSE 62–89; RESP 14–20; TEMP 36–37.1; O2SAT 94–98
[2021-12-02] MEDS: 0.9 % Sodium Chloride 1,000 ML 999 ML IV (00:09)
[2021-12-02] MEDS: Enoxaparin Sodium 40 MG/0.4 ML SYRINGE SUBCUT ×2 (00:12→21:26)
--- NOTE | 2021-12-02 06:40 | PC.NURSE ---
IV infiltrated IV removed by this RN. provider called to bedside to assess infiltrated IV site. Per provider pt arm to be wrapped with warm compresses and elevated. warm wipes applied to pt arm and wrapped in warm blanket. elevated arm on pillows.
[2021-12-02] MEDS: 0.9 % Sodium Chloride Flush 3 ML SYRINGE IVFLUSH ×2 (07:27→21:26)
--- NOTE | 2021-12-02 07:27 | PC.NURSE ---
new IV placed by tania RN to left lower arm. patient tolerated well.
[2021-12-02 07:36] LABS: MANUAL DIFF FLAG NO
[2021-12-02 07:39] LABS: Hematocrit 39.2 % (37.0-47.0); Hemoglobin 12.5 g/dl (12.0-16.0); Imm Gran Abs Auto 0.03 X10*3/uL (0.00-0.03); Imm Gran Pct Auto 0.4 % (0.0-0.4); Lymphocytes Absolute Auto 0.8 X10*3/uL (1.2-4.9); Lymphocytes Percent Auto 9.7 % (20-40); Mean Corpuscular HGB Conc 31.9 g/dl (31.0-35.0); Mean Corpuscular Hemoglobin 28.9 pg (27.0-33.0); Mean Corpuscular Volume 90.7 fL (80.0-98.0); Mean Platelet Volume 11.1 fL (9.4-12.3); Monocytes Absolute Auto 0.5 X10*3/uL (0.1-1.2); Monocytes Percent Auto 6.6 % (2-11); Neutrophils Absolute Auto 6.6 x10*3/uL (2.0-8.3); Neutrophils Percent Auto 83.3 % (45-73); Platelet Count 142 X10*3/uL (160-400); Red Blood Count 4.32 X10*6/uL (4.20-5.50); Red Cell Distribution Width 14.4 % (11.0-16.0); White Blood Count 7.9 X10*3/uL (4.8-10.8)
[2021-12-02 07:50] LABS: Anion Gap 10 (12-20); Blood Urea Nitrogen 35 mg/dL (9-16); Calcium 10.2 mg/dL (8.4-10.2); Carbon Dioxide 27 mmol/L (22-29); Chloride 111 mmol/L (96-108); Creatinine Clr Calc Pharmacy 42.9; Estimated Glomerular Filt Rate 49; Glucose Random 138 mg/dL (60-115); Potassium 4.1 mmol/L (3.3-5.1); Sodium 144 mmol/L (135-145)
[2021-12-02] MEDS: Aspirin Enteric Coated 81 MG TABLET.DR PO (08:40)
[2021-12-02] MEDS: Furosemide 20 MG TABLET PO (08:40)
[2021-12-02] MEDS: Calcium + Vitamin D 250 MG TABLET 500 MG PO ×2 (08:40→21:25)
[2021-12-02] MEDS: lisinopriL 20 MG TABLET PO (08:40)
[2021-12-02] MEDS: Memantine HCl 10 MG TABLET PO ×2 (08:40→21:25)
[2021-12-02] MEDS: Ascorbic Acid 500 MG TABLET PO ×2 (08:40→21:25)
[2021-12-02] MEDS: Atorvastatin Calcium 20 MG TABLET PO (08:40)
[2021-12-02] MEDS: Mirabegron 50 MG TAB.ER.24H PO (08:40)
[2021-12-02] MEDS: Loratadine 10 MG TABLET PO (08:41)
[2021-12-02] MEDS: dexAMETHasone 6 MG TABLET PO (08:41)
[2021-12-02] MEDS: Montelukast Sodium 10 MG TABLET PO (08:41)
[2021-12-02] MEDS: amLODIPine Besylate 5 MG TABLET PO (08:41)
[2021-12-02] MEDS: Ferrous Sulfate 324 MG TABLET.DR PO ×2 (08:41→21:26)
[2021-12-02] MEDS: Donepezil HCl 10 MG TABLET PO (08:41)
[2021-12-02] MEDS: Omeprazole 40 MG CAPSULE.DR PO (08:41)
[2021-12-02] MEDS: Fluticasone Propionate Nasal 16 GM SPRAY 1 SPRAY NOSTRIL-B (08:42)
[2021-12-02 12:25] LABS: Alanine Aminotransferase 41 U/L (0-31); Aspartate Amino Transferase 28 U/L (5-31)
--- NOTE | 2021-12-02 13:49 | MHC.CM.PN ---
PT is recommending STR and multiple SNF referrals have been made and updated. CM will follow.
[2021-12-02] MEDS: Remdesivir 200 MG in 0.9 % Sodium Chloride 210 ML 105 MG IV (15:07)
--- NOTE | 2021-12-02 16:15 | P.PNIM_ITS ---
Subjective Subjective Date of Service: 12/02/21 Interval History: History obtained via practice lead patient admitted to [facility] due to COVID-19 infection and hypoxia, this a.m. patient feels tired and not feeling well, denies cough, no fevers no chills. Review of Systems Review of Systems: Yes all other systems are reviewed and are negative Physical Exam Vital Signs: Vital Signs: Last Vital Signs Temp 97.8 F 12/02/21 15:49 Pulse 69 12/02/21 15:49 Resp 18 12/02/21 15:49 BP 122/64 12/02/21 15:49 Pulse Ox 96 12/02/21 15:49 BMI result Body Mass Index 31.3 Gen: Awake alert, no acute distress,speaks in full sentences. HEENT:? Moist mucosa. Neck no JVD Pulmonary: ?No acute distress, clear to auscultation, diminished breath sounds, CVS:? Normal S1-S2 Abdomen: BS+, Soft, Nontender Extremities:?no edema Neuro:? Alert and awake. Psych appropriate affect ? Objective Data Active Medications Amlodipine Besylate (Amlodipine Besylate 5 Mg Tablet) 5 mg PO DAILY [facility]; Protocol Last Admin: 12/02/21 08:41 Dose: 5 mg Documented by: IZA Ascorbic Acid (Ascorbic Acid 500 Mg Tablet) 500 mg PO BID ON [facility] Last Admin: 12/02/21 08:40 Dose: 500 mg Documented by: IZA Aspirin (Aspirin Enteric Coated 81 Mg Tablet.) 81 mg PO DAILY ON [facility] Last Admin: 12/02/21 08:40 Dose: 81 mg Documented by: IZA Atorvastatin Calcium (Atorvastatin Calcium 20 Mg Tablet) 20 mg PO DAILY [facility] Last Admin: 12/02/21 08:40 Dose: 20 mg Documented by: IZA Calcium Carbonate/Cholecalciferol (Calcium + Vitamin D 250 Mg Tablet) 500 mg PO BID [facility] Last Admin: 12/02/21 08:40 Dose: 500 mg Documented by: IZA Dexamethasone (Dexamethasone 6 Mg Tablet) 6 mg PO DAILY [facility] Stop: 12/06/21 09:01 Last Admin: 12/02/21 08:41 Dose: 6 mg Documented by: IZA Dexamethasone (Dexamethasone 6 Mg Tablet) 6 mg PO DAILY [facility] Last Admin: 12/02/21 08:41 Dose: Not Given Documented by: IZA Non-Admin Reason: Previously Administered Donepezil HCl (Donepezil Hcl 10 Mg Tablet) 10 mg PO DAILY [facility] Last Admin: 12/02/21 08:41 Dose: 10 mg Documented by: IZA Enoxaparin Sodium (Enoxaparin Sodium 40 Mg/0.4 Ml Syringe) 40 mg SUBCUT Q24H ON [facility] Last Admin: 12/02/21 00:12 Dose: 40 mg Documented by: SCOTTY Ferrous Sulfate (Ferrous Sulfate 324 Mg Tablet.Dr) 324 mg PO BID [facility] Last Admin: 12/02/21 08:41 Dose: 324 mg Documented by: IZA Fluoxetine HCl (Fluoxetine Hcl 20 Mg Capsule) 40 mg PO BEDTIME [facility] Last Admin: 12/01/21 22:11 Dose: 40 mg Documented by: SCOTTY Fluticasone Propionate (Fluticasone Propionate Nasal 16 Gm [place]) 1 spray NOSTRIL-B DAILY [facility] Last Admin: 12/02/21 08:42 Dose: 1 spray Documented by: IZA Furosemide (Furosemide 20 Mg Tablet) 20 mg PO DAILY [facility]; Protocol Last Admin: 12/02/21 08:40 Dose: 20 mg Documented by: IZA Remdesivir 200 mg/ Sodium (Chloride) 210 mls @ 105 mls/hr IV ONCE ONE Stop: 12/02/21 16:59 Last Admin: 12/02/21 15:07 Dose: 105 mls/hr Documented by: GALDINO Remdesivir 100 mg/ Sodium (Chloride) 230 mls @ 115 mls/hr IV Q24H ON [facility] Stop: 12/06/21 16:59 Lisinopril (Lisinopril 20 Mg Tablet) 20 mg PO DAILY [facility]; Protocol Last Admin: 12/02/21 08:40 Dose: 20 mg Documented by: IZA Loratadine (Loratadine 10 Mg Tablet) 10 mg PO DAILY [facility] Last Admin: 12/02/21 08:41 Dose: 10 mg Documented by: IZA Melatonin (Melatonin 3 Mg Tablet) 6 mg PO BEDTIME PRN PRN Reason: Insomnia Memantine (Memantine Hcl 10 Mg Tablet) 10 mg PO BID [facility] Last Admin: 12/02/21 08:40 Dose: 10 mg Documented by: IZA Mirabegron (Mirabegron 50 Mg Tab.Er.24h) 50 mg PO DAILY [facility] Last Admin: 12/02/21 08:40 Dose: 50 mg Documented by: IZA Mirtazapine (Mirtazapine 15 Mg Tablet) 15 mg PO BEDTIME [facility] Last Admin: 12/01/21 22:14 Dose: 15 mg Documented by: SCOTTY Montelukast Sodium (Montelukast Sodium 10 Mg Tablet) 10 mg PO DAILY [facility] Last Admin: 12/02/21 08:41 Dose: 10 mg Documented by: IZA Omeprazole (Omeprazole 40 Mg Capsule.Dr) 40 mg PO DAILY [facility] Last Admin: 12/02/21 08:41 Dose: 40 mg Documented by: IZA Senna (Sennosides 8.6 Mg Tablet) 17.2 mg PO BEDTIME PRN PRN Reason: Constipation Sodium Chloride (0.9 % Sodium Chloride Flush 3 Ml Syringe) 3 ml IVFLUSH QSHIFT ON [facility] Last Admin: 12/02/21 15:14 Dose: Not Given Documented by: GALDINO Non-Admin Reason: IV Running Trazodone HCl (Trazodone Hcl 50 Mg Tablet) 50 mg PO BEDTIME ON [facility] Last Admin: 12/01/21 22:14 Dose: 50 mg Documented by: SCOTTY Labs CBC & Chem 7: 12/02/21 07:13 12/02/21 07:13 Labs: Laboratory Results - last 24 hr 12/01/21 12/02/21 12/02/21 11:39 07:13 07:13 MCV 90.7 MCH 28.9 MCHC 31.9 RDW 14.4 Plt Count 142 L MPV 11.1 Immature Gran % (Auto) 0.4 Neut % (Auto) 83.3 H Lymph % (Auto) 9.7 L [place] % (Auto) 6.6 Eos % (Auto) 0.0 Baso % (Auto) 0.0 Lymph # (Auto) 0.8 L [place] # (Auto) 0.5 Eos # (Auto) 0.0 Baso # (Auto) 0.0 Abs Immat Gran (auto) 0.03 Absolute Neuts (auto) 6.6 Absolute Nucleated RBC 0.000 Nucleated RBC % (auto) 0.0 PT 11.4 INR 1.0 Anion Gap 10 L Estim Creat Clear Calc 42.9 Estimated GFR 49 Random Glucose 138 H Calcium 10.2 AST 28 D ALT 41 H Microbiology Microbiology Results: Microbiology 12/01/21 11:47 Blood Culture - Preliminary Blood - Venous No growth after 24 hours. 12/01/21 11:39 Blood Culture - Preliminary Blood - Venous No growth after 24 hours. 11/26/21 18:43 Blood Culture - Final Blood - Venous No growth after 5 days. Assessment and Plan (1) Weakness: Status: Acute (2) COVID-19: Status: Acute Assessment and Plan: 86-year-old female with a past medical history of hypertension, dementia, CKD, nonalcoholic liver cirrhosis, history of TIA/ CVA; presented to the hospital on 11/26/2021 with a chief complaint of generalized weakness/ fever ? Noted to have COVID-19 positive.? Acute hypoxic respiratory failure In the setting of COVID-19 infection. Continue oxygen and wean as tolerated.? COVID 19 infection: Tested positive on 11/26/21, mild hypoxia, continue iv Decadron 6 mg day 01/06 D-dimer 601,ldh 199 CTA chest suboptimal study showed no PE CBC and electrolytes are stable Patient does not qualify for remdesivir await ID input Hypertension BP stable continue amlodipine and lisinopril Hyperlipidemia: Continue home statin Dementia: Continue home memantine and donepezil For all other chronic conditions, continue home medications including Mirabegron, metatarsal pin, Floxin, trazodone DVT prophylaxis:? Lovenox Code status:? DNR/DNI Disposition patient seen by Physical therapy and they recommend short-term rehab, patient has [employer] WORK[employer] service at home that is her son but he also has COVID so there is no one to take care of her at home Says neonatal social worker is looking for rehab bed Quality Stroke Does the patient have a stroke diagnosis?: No VTE Prior VTE?: No VTE Risk Level:: Medical - moderate - high VTE Device Contraindication: Treatment Not Indicated VTE Drug Contraindication: N/A - Med Ordered
[2021-12-02] MEDS: traZODone HCL 50 MG TABLET PO (21:25)
[2021-12-02] MEDS: FLUoxetine HCl 20 MG CAPSULE 40 MG PO (21:25)
[2021-12-02] MEDS: Mirtazapine 15 MG TABLET PO (21:25)
[2021-12-03 03:37] VITALS: BP 152/64; PULSE 66; RESP 17; TEMP 36.5; O2SAT 99
[2021-12-03 08:00] VITALS: BP 143/64; PULSE 68; RESP 16; TEMP 35.8; O2SAT 96
[2021-12-03] MEDS: Mirabegron 50 MG TAB.ER.24H PO (08:57)
[2021-12-03] MEDS: Aspirin Enteric Coated 81 MG TABLET.DR PO (08:57)
[2021-12-03] MEDS: Atorvastatin Calcium 20 MG TABLET PO (08:57)
[2021-12-03] MEDS: Memantine HCl 10 MG TABLET PO ×2 (08:57→21:07)
[2021-12-03] MEDS: 0.9 % Sodium Chloride Flush 3 ML SYRINGE IVFLUSH ×3 (08:57→21:07)
[2021-12-03] MEDS: Ascorbic Acid 500 MG TABLET PO ×2 (08:57→21:07)
[2021-12-03] MEDS: Furosemide 20 MG TABLET PO (08:57)
[2021-12-03] MEDS: Loratadine 10 MG TABLET PO (08:57)
[2021-12-03] MEDS: Calcium + Vitamin D 250 MG TABLET 500 MG PO ×2 (08:58→21:07)
[2021-12-03] MEDS: Omeprazole 40 MG CAPSULE.DR PO (08:58)
[2021-12-03] MEDS: dexAMETHasone 6 MG TABLET PO (08:58)
[2021-12-03] MEDS: Donepezil HCl 10 MG TABLET PO (08:58)
[2021-12-03] MEDS: Montelukast Sodium 10 MG TABLET PO (08:58)
[2021-12-03] MEDS: amLODIPine Besylate 5 MG TABLET PO (08:58)
[2021-12-03] MEDS: lisinopriL 20 MG TABLET PO (08:58)
[2021-12-03] MEDS: Ferrous Sulfate 324 MG TABLET.DR PO ×2 (08:58→21:07)
[2021-12-03 11:32] VITALS: BP 152/75; PULSE 63; RESP 20; TEMP 36.1; O2SAT 99
--- NOTE | 2021-12-03 13:19 | MHC.CM.PN ---
Broad SNF search is ongoing. All SNF referrals have been updated.Patient is Covid (+) which appears to be the barrier to dc. CM will follow.
--- NOTE | 2021-12-03 13:37 | HO.PM.IMPN ---
Subjective Subjective Date of Service: 12/03/21 Interval History: Georgian-speaking female, complaining of tiredness, denies shortness of breath denies chest pain, no nausea, no vomiting, tolerating diet taking medications. Review of Systems Review of Systems: Yes all other systems are reviewed and are negative Physical Exam Vital Signs: Vital Signs: Last Vital Signs Temp 97.0 F 12/03/21 11:32 Pulse 63 12/03/21 11:32 Resp 20 12/03/21 11:32 BP 152/75 H 12/03/21 11:32 Pulse Ox 99 12/03/21 11:32 BMI result Body Mass Index 31.3 Gen:? Awake, alert, no acute distress, resting comfortably. HEENT:? Moist mucosa. Neck no JVD Pulmonary: ?No acute distress, clear to auscultation, diminished breath sounds, CVS:? Normal S1-S2 Abdomen: BS+, Soft, Nontender Extremities:?no edema Neuro:? Alert and awake. Psych appropriate affect ? Objective Data Active Medications Amlodipine Besylate (Amlodipine Besylate 5 Mg Tablet) 5 mg PO DAILY [facility]; Protocol Last Admin: 12/03/21 08:58 Dose: 5 mg Documented by: MORGAN Ascorbic Acid (Ascorbic Acid 500 Mg Tablet) 500 mg PO BID [facility] Last Admin: 12/03/21 08:57 Dose: 500 mg Documented by: MORGAN Aspirin (Aspirin Enteric Coated 81 Mg Tablet.) 81 mg PO DAILY [facility] Last Admin: 12/03/21 08:57 Dose: 81 mg Documented by: MORGAN Atorvastatin Calcium (Atorvastatin Calcium 20 Mg Tablet) 20 mg PO DAILY [facility] Last Admin: 12/03/21 08:57 Dose: 20 mg Documented by: MORGAN Calcium Carbonate/Cholecalciferol (Calcium + Vitamin D 250 Mg Tablet) 500 mg PO BID [facility] Last Admin: 12/03/21 08:58 Dose: 500 mg Documented by: MORGAN Dexamethasone (Dexamethasone 6 Mg Tablet) 6 mg PO DAILY [facility] Stop: 12/06/21 09:01 Last Admin: 12/03/21 08:58 Dose: 6 mg Documented by: MORGAN Dexamethasone (Dexamethasone 6 Mg Tablet) 6 mg PO DAILY [facility] Last Admin: 12/03/21 10:24 Dose: Not Given Documented by: MORGAN Non-Admin Reason: duplicate order Donepezil HCl (Donepezil Hcl 10 Mg Tablet) 10 mg PO DAILY [facility] Last Admin: 12/03/21 08:58 Dose: 10 mg Documented by: MORGAN Enoxaparin Sodium (Enoxaparin Sodium 40 Mg/0.4 Ml Syringe) 40 mg SUBCUT Q24H [facility] Last Admin: 12/02/21 21:26 Dose: 40 mg Documented by: YARA Ferrous Sulfate (Ferrous Sulfate 324 Mg Tablet.Dr) 324 mg PO BID [facility] Last Admin: 12/03/21 08:58 Dose: 324 mg Documented by: MORGAN Fluoxetine HCl (Fluoxetine Hcl 20 Mg Capsule) 40 mg PO BEDTIME [facility] Last Admin: 12/02/21 21:25 Dose: 40 mg Documented by: YARA Fluticasone Propionate (Fluticasone Propionate Nasal 16 Gm [place]) 1 spray NOSTRIL-B DAILY [facility] Last Admin: 12/02/21 08:42 Dose: 1 spray Documented by: IZA Furosemide (Furosemide 20 Mg Tablet) 20 mg PO DAILY [facility]; Protocol Last Admin: 12/03/21 08:57 Dose: 20 mg Documented by: MORGAN Remdesivir 100 mg/ Sodium (Chloride) 230 mls @ 115 mls/hr IV Q24H [facility] Stop: 12/06/21 16:59 Lisinopril (Lisinopril 20 Mg Tablet) 20 mg PO DAILY [facility]; Protocol Last Admin: 12/03/21 08:58 Dose: 20 mg Documented by: MORGAN Loratadine (Loratadine 10 Mg Tablet) 10 mg PO DAILY [facility] Last Admin: 12/03/21 08:57 Dose: 10 mg Documented by: MORGAN Melatonin (Melatonin 3 Mg Tablet) 6 mg PO BEDTIME PRN PRN Reason: Insomnia Memantine (Memantine Hcl 10 Mg Tablet) 10 mg PO BID [facility] Last Admin: 12/03/21 08:57 Dose: 10 mg Documented by: MORGAN Mirabegron (Mirabegron 50 Mg Tab.Er.24h) 50 mg PO DAILY [facility] Last Admin: 12/03/21 08:57 Dose: 50 mg Documented by: MORGAN Mirtazapine (Mirtazapine 15 Mg Tablet) 15 mg PO BEDTIME [facility] Last Admin: 12/02/21 21:25 Dose: 15 mg Documented by: YARA Montelukast Sodium (Montelukast Sodium 10 Mg Tablet) 10 mg PO DAILY [facility] Last Admin: 12/03/21 08:58 Dose: 10 mg Documented by: MORGAN Omeprazole (Omeprazole 40 Mg Capsule.Dr) 40 mg PO DAILY [facility] Last Admin: 12/03/21 08:58 Dose: 40 mg Documented by: MORGAN Senna (Sennosides 8.6 Mg Tablet) 17.2 mg PO BEDTIME PRN PRN Reason: Constipation Sodium Chloride (0.9 % Sodium Chloride Flush 3 Ml Syringe) 3 ml IVFLUSH QSHIFT [facility] Last Admin: 12/03/21 08:57 Dose: 3 ml Documented by: MORGAN Trazodone HCl (Trazodone Hcl 50 Mg Tablet) 50 mg PO BEDTIME [facility] Last Admin: 12/02/21 21:25 Dose: 50 mg Documented by: YARA Labs CBC & Chem 7: 12/02/21 07:13 12/02/21 07:13 Microbiology Microbiology Results: Microbiology 11/28/21 03:33 Blood Culture - Final Blood - Venous No growth after 5 days. 11/28/21 03:33 Blood Culture - Final Blood - Venous No growth after 5 days. 12/01/21 11:47 Blood Culture - Preliminary Blood - Venous No growth after 24 hours. 12/01/21 11:39 Blood Culture - Preliminary Blood - Venous No growth after 24 hours. Assessment and Plan (1) Weakness: Status: Acute (2) COVID-19: Status: Acute (3) Acute respiratory failure with hypoxia: Status: Acute Assessment and Plan: 86-year-old female with a past medical history of hypertension, dementia, CKD, nonalcoholic liver cirrhosis, history of TIA/ CVA; presented to the hospital on 11/26/2021 with a chief complaint of generalized weakness/ fever ? Noted to have COVID-19 positive.? Acute hypoxic respiratory failure In the setting of COVID-19 infection. Continue oxygen and wean as tolerated.? COVID 19 infection: Clinically stable on 2 L nasal cannula finger oximetry 99% Tested positive on 11/26/21, mild hypoxia, continue? iv?Decadron 6 mg day 02/03 D-dimer 601,ldh 199 CTA chest suboptimal study showed no PE CBC and electrolytes are stable Seen by ID and she ordered Remdesivir Hypertension BP stable continue amlodipine and lisinopril Hyperlipidemia: Continue home statin Dementia: Continue home memantine and donepezil For all other chronic conditions, continue home medications including Mirabegron, metatarsal pin, Floxin, trazodone DVT prophylaxis:? Lovenox Code status:? DNR/DNI Disposition patient seen by Physical therapy and they recommend short-term rehab, patient has MECHANISM ASSEMBLER service at home that is her son but he also has COVID so there is no one to take care of her at home mental health social worker is looking for rehab bed Quality Stroke Does the patient have a stroke diagnosis?: No VTE Prior VTE?: No VTE Risk Level:: Medical - moderate - high VTE Device Contraindication: Treatment Not Indicated VTE Drug Contraindication: N/A - Med Ordered
[2021-12-03] MEDS: Remdesivir 100 MG in 0.9 % Sodium Chloride 230 ML 115 MG IV (14:44)
[2021-12-03 15:34] VITALS: BP 140/60; PULSE 66; RESP 15; TEMP 36.2; O2SAT 97
--- NOTE | 2021-12-03 15:36 | MHC.CM.PN ---
Per MD, Patient may be medically cleared for dc tomorrow(Started on IV Decadron). Patient has been accepted at [address], pending [facility] auth (humberto has requested that auth be initiated). HUMBERTO spoke with Granddaughter/HCP/Elena @ [phone], who is aware of and in agreement with this plan (she just asks that she be notified of the final dc details). CM will follow.
[2021-12-03 19:14] VITALS: BP 132/66; PULSE 70; RESP 18; TEMP 36.6; O2SAT 98
[2021-12-03] MEDS: FLUoxetine HCl 20 MG CAPSULE 40 MG PO (21:06)
[2021-12-03] MEDS: Mirtazapine 15 MG TABLET PO (21:07)
[2021-12-03] MEDS: traZODone HCL 50 MG TABLET PO (21:07)
[2021-12-03] MEDS: Enoxaparin Sodium 40 MG/0.4 ML SYRINGE SUBCUT (21:57)
[2021-12-03 23:31] VITALS: BP 131/69; PULSE 65; RESP 18; TEMP 35.8; O2SAT 95
[2021-12-04 03:40] VITALS: BP 157/95; PULSE 56; RESP 18; TEMP 36.9; O2SAT 95
[2021-12-04] MEDS: Ferrous Sulfate 324 MG TABLET.DR PO ×2 (07:55→20:42)
[2021-12-04] MEDS: dexAMETHasone 6 MG TABLET PO (07:56)
[2021-12-04] MEDS: Omeprazole 40 MG CAPSULE.DR PO (07:56)
[2021-12-04] MEDS: Atorvastatin Calcium 20 MG TABLET PO (07:56)
[2021-12-04] MEDS: Aspirin Enteric Coated 81 MG TABLET.DR PO (07:56)
[2021-12-04] MEDS: amLODIPine Besylate 5 MG TABLET PO (07:56)
[2021-12-04] MEDS: Mirabegron 50 MG TAB.ER.24H PO (07:56)
[2021-12-04] MEDS: Ascorbic Acid 500 MG TABLET PO ×2 (07:56→20:42)
[2021-12-04] MEDS: Memantine HCl 10 MG TABLET PO ×2 (07:57→20:42)
[2021-12-04] MEDS: Donepezil HCl 10 MG TABLET PO (07:57)
[2021-12-04] MEDS: lisinopriL 20 MG TABLET PO (07:57)
[2021-12-04] MEDS: Montelukast Sodium 10 MG TABLET PO (07:57)
[2021-12-04] MEDS: Furosemide 20 MG TABLET PO (07:57)
[2021-12-04] MEDS: Loratadine 10 MG TABLET PO (07:57)
[2021-12-04] MEDS: Calcium + Vitamin D 250 MG TABLET 500 MG PO ×2 (07:58→20:41)
[2021-12-04] MEDS: 0.9 % Sodium Chloride Flush 3 ML SYRINGE IVFLUSH ×3 (07:58→20:42)
[2021-12-04 08:00] VITALS: BP 148/69; PULSE 80; RESP 18; TEMP 36.5; O2SAT 98
[2021-12-04 11:37] VITALS: BP 132/61; PULSE 76; RESP 18; TEMP 36.6; O2SAT 98
--- NOTE | 2021-12-04 13:45 | MHC.CM.PN ---
Addendum entered by Jessica Bennett 12/04/21 15:30: CM RECEIVED A CALL FROM DEON, SNF LIAISON, WHO REPORTED THEY STILL DO NOT HAVE THE INSURANCE AUTHORIZATION. SHE ASSURED THIS VOLTAGE INSPECTOR THEY WOULD CALL ONCE IT WAS OBTAINED Original Note: PT IS CLEARED TO DC. PER NOTES, PT/FAMILY HAS ACCEPTED A BED AT [facility] PER NOTES, SNF WAS PLANNING TO SUBMIT FOR INSURANCE AUTH YESTERDAY WITH A PLAN TO DC TODAY CM ATTEMPTED TO REACH SNF LIAISON VIA [employer] HOWEVER THERE WAS NO RESPONSE. CM ATTEMPTED TO REACH THEM VIA THE NUMBER LISTED IN [employer] [phone] HOWEVER THIS CALL WENT TO A THAT OFFERED ANOTHER PHONE NUMBER [phone]. CM TRIED THIS NUMBER AND REACHED A LIAISON WHO REPORTED SHE WAS COVERING ALL OF THEIR FACILITIES IN [place] TODAY SO MAY BE A LITTLE BEHIND HOWEVER SHE DID NOT SEE THAT AUTH HAD COME THROUGH YET. SHE REPORTED SHE WOULD REACH OUT AGAIN AND CALL T/W BACK ONCE AUTH WAS OBTAINED.
--- NOTE | 2021-12-04 14:45 | P.PNIM_ITS ---
Subjective Subjective Date of Service: 12/04/21 Interval History: Indonesian-speaking female, feeling better this morning offers no acute complaints no issues overnight, tolerating diet and taking all medications. Review of Systems Review of Systems: Yes all other systems are reviewed and are negative Physical Exam Vital Signs: Vital Signs: Last Vital Signs Temp 97.8 F 12/04/21 11:37 Pulse 76 12/04/21 11:37 Resp 18 12/04/21 11:37 BP 132/61 12/04/21 11:37 Pulse Ox 98 12/04/21 11:37 BMI result Body Mass Index 31.3 Gen:? Awake, alert, no acute distress, resting comfortably. HEENT:? Moist mucosa. Neck no JVD Pulmonary: ?No acute distress, clear to auscultation, diminished breath sounds, CVS:? Normal S1-S2 Abdomen: BS+, Soft, Nontender Extremities:?no edema Neuro:? Alert and awake, clear speech Psych appropriate affect Objective Data Active Medications Amlodipine Besylate (Amlodipine Besylate 5 Mg Tablet) 5 mg PO DAILY [facility]; Protocol Last Admin: 12/04/21 07:56 Dose: 5 mg Documented by: MEL Ascorbic Acid (Ascorbic Acid 500 Mg Tablet) 500 mg PO BID [facility] Last Admin: 12/04/21 07:56 Dose: 500 mg Documented by: MEL Aspirin (Aspirin Enteric Coated 81 Mg Tablet.) 81 mg PO DAILY [facility] Last Admin: 12/04/21 07:56 Dose: 81 mg Documented by: MEL Atorvastatin Calcium (Atorvastatin Calcium 20 Mg Tablet) 20 mg PO DAILY [facility] Last Admin: 12/04/21 07:56 Dose: 20 mg Documented by: MEL Calcium Carbonate/Cholecalciferol (Calcium + Vitamin D 250 Mg Tablet) 500 mg PO BID [facility] Last Admin: 12/04/21 07:58 Dose: 500 mg Documented by: MEL Dexamethasone (Dexamethasone 6 Mg Tablet) 6 mg PO DAILY [facility] Stop: 12/06/21 09:01 Last Admin: 12/04/21 07:56 Dose: 6 mg Documented by: MEL Donepezil HCl (Donepezil Hcl 10 Mg Tablet) 10 mg PO DAILY [facility] Last Admin: 12/04/21 07:57 Dose: 10 mg Documented by: MEL Enoxaparin Sodium (Enoxaparin Sodium 40 Mg/0.4 Ml Syringe) 40 mg SUBCUT Q24H [facility] Last Admin: 12/03/21 21:57 Dose: 40 mg Documented by: GASTON Ferrous Sulfate (Ferrous Sulfate 324 Mg Tablet.Dr) 324 mg PO BID [facility] Last Admin: 12/04/21 07:55 Dose: 324 mg Documented by: MEL Fluoxetine HCl (Fluoxetine Hcl 20 Mg Capsule) 40 mg PO BEDTIME [facility] Last Admin: 12/03/21 21:06 Dose: 40 mg Documented by: GASTON Fluticasone Propionate (Fluticasone Propionate Nasal 16 Gm [place]) 1 spray NOSTRIL-B DAILY [facility] Last Admin: 12/04/21 10:32 Dose: Not Given Documented by: MEL Non-Admin Reason: N/A Furosemide (Furosemide 20 Mg Tablet) 20 mg PO DAILY [facility]; Protocol Last Admin: 12/04/21 07:57 Dose: 20 mg Documented by: MEL Remdesivir 100 mg/ Sodium (Chloride) 230 mls @ 115 mls/hr IV Q24H [facility] Stop: 12/06/21 16:59 Last Infusion: 12/03/21 17:22 Dose: 0 mls/hr Documented by: ALPA Lisinopril (Lisinopril 20 Mg Tablet) 20 mg PO DAILY [facility]; Protocol Last Admin: 12/04/21 07:57 Dose: 20 mg Documented by: MEL Loratadine (Loratadine 10 Mg Tablet) 10 mg PO DAILY [facility] Last Admin: 12/04/21 07:57 Dose: 10 mg Documented by: MEL Melatonin (Melatonin 3 Mg Tablet) 6 mg PO BEDTIME PRN PRN Reason: Insomnia Memantine (Memantine Hcl 10 Mg Tablet) 10 mg PO BID [facility] Last Admin: 12/04/21 07:57 Dose: 10 mg Documented by: MEL Mirabegron (Mirabegron 50 Mg Tab.Er.24h) 50 mg PO DAILY [facility] Last Admin: 12/04/21 07:56 Dose: 50 mg Documented by: MEL Mirtazapine (Mirtazapine 15 Mg Tablet) 15 mg PO BEDTIME [facility] Last Admin: 12/03/21 21:07 Dose: 15 mg Documented by: GASTON Montelukast Sodium (Montelukast Sodium 10 Mg Tablet) 10 mg PO DAILY [facility] Last Admin: 12/04/21 07:57 Dose: 10 mg Documented by: MEL Omeprazole (Omeprazole 40 Mg Capsule.Dr) 40 mg PO DAILY [facility] Last Admin: 12/04/21 07:56 Dose: 40 mg Documented by: MEL Senna (Sennosides 8.6 Mg Tablet) 17.2 mg PO BEDTIME PRN PRN Reason: Constipation Sodium Chloride (0.9 % Sodium Chloride Flush 3 Ml Syringe) 3 ml IVFLUSH QSHIFT [facility] Last Admin: 12/04/21 07:58 Dose: 3 ml Documented by: MEL Trazodone HCl (Trazodone Hcl 50 Mg Tablet) 50 mg PO BEDTIME [facility] Last Admin: 12/03/21 21:07 Dose: 50 mg Documented by: GASTON Labs CBC & Chem 7: 12/02/21 07:13 12/02/21 07:13 Microbiology Microbiology Results: Microbiology 12/01/21 11:47 Blood Culture - Preliminary Blood - Venous No growth after 48 hours. 12/01/21 11:39 Blood Culture - Preliminary Blood - Venous No growth after 48 hours. Assessment and Plan (1) Acute respiratory failure with hypoxia: Status: Acute (2) Weakness: Status: Acute (3) COVID-19: Status: Acute Assessment and Plan: 86-year-old female with a past medical history of hypertension, dementia, CKD, nonalcoholic liver cirrhosis, history of TIA/ CVA; presented to the hospital on 11/26/2021 with a chief complaint of generalized weakness/ fever Noted to have COVID-19 positive.? Acute hypoxic respiratory failure In the setting of COVID-19 infection. Continue oxygen remains on 2 L of oxygen with stable finger oximetry COVID 19 infection: Clinically stable on 2 L nasal cannula finger oximetry 99% Tested positive on 11/26/21, mild hypoxia, continue? iv?Decadron 6 mg day 03/06 D-dimer 601,ldh 199 CTA chest suboptimal study showed no PE CBC and electrolytes are stable Seen by ID and on Remdesivir day 2 Hypertension BP stable continue amlodipine and lisinopril Hyperlipidemia: Continue home statin Dementia: Continue home memantine and donepezil For all other chronic conditions, continue home medications including Mirabegron, metatarsal pin, Floxin, trazodone DVT prophylaxis:? Lovenox Code status:? DNR/DNI Disposition patient seen by Physical therapy and they recommend short-term rehab, patient has PRESCRIPTION BENEFIT SPECIALIST service at home that is her son but he also has COVID so there is no one to take care of her at home social work manager is looking for rehab bed Quality Stroke Does the patient have a stroke diagnosis?: No VTE Prior VTE?: No VTE Risk Level:: Medical - moderate - high VTE Device Contraindication: Treatment Not Indicated VTE Drug Contraindication: N/A - Med Ordered
[2021-12-04] MEDS: Remdesivir 100 MG in 0.9 % Sodium Chloride 230 ML 115 MG IV (15:05)
[2021-12-04 15:13] VITALS: BP 136/59; PULSE 80; RESP 20; TEMP 36.1; O2SAT 97
[2021-12-04 19:16] VITALS: BP 138/70; PULSE 66; RESP 20; TEMP 36.1; O2SAT 99
[2021-12-04] MEDS: FLUoxetine HCl 20 MG CAPSULE 40 MG PO (20:41)
[2021-12-04] MEDS: Mirtazapine 15 MG TABLET PO (20:42)
[2021-12-04] MEDS: traZODone HCL 50 MG TABLET PO (20:42)
[2021-12-04] MEDS: Enoxaparin Sodium 40 MG/0.4 ML SYRINGE SUBCUT (21:20)
[2021-12-04 23:42] VITALS: BP 120/60; PULSE 86; RESP 20; TEMP 36.7; O2SAT 97
[2021-12-05] VITALS (8 sets, daily range): BP systolic 131–164; BP diastolic 64–75; PULSE 61–76; RESP 16–20; TEMP 36.1–36.7; O2SAT 93–98
[2021-12-05] MEDS: Atorvastatin Calcium 20 MG TABLET PO (08:45)
[2021-12-05] MEDS: Calcium + Vitamin D 250 MG TABLET 500 MG PO ×2 (08:46→21:53)
[2021-12-05] MEDS: Loratadine 10 MG TABLET PO (08:46)
[2021-12-05] MEDS: amLODIPine Besylate 5 MG TABLET PO (08:46)
[2021-12-05] MEDS: Ferrous Sulfate 324 MG TABLET.DR PO ×2 (08:46→21:53)
[2021-12-05] MEDS: Ascorbic Acid 500 MG TABLET PO ×2 (08:46→21:53)
[2021-12-05] MEDS: Donepezil HCl 10 MG TABLET PO (08:46)
[2021-12-05] MEDS: Furosemide 20 MG TABLET PO (08:46)
[2021-12-05] MEDS: lisinopriL 20 MG TABLET PO (08:46)
[2021-12-05] MEDS: Memantine HCl 10 MG TABLET PO ×2 (08:46→21:53)
[2021-12-05] MEDS: Aspirin Enteric Coated 81 MG TABLET.DR PO (08:47)
[2021-12-05] MEDS: 0.9 % Sodium Chloride Flush 3 ML SYRINGE IVFLUSH ×2 (08:47→12:49)
[2021-12-05] MEDS: Omeprazole 40 MG CAPSULE.DR PO (08:47)
[2021-12-05] MEDS: Mirabegron 50 MG TAB.ER.24H PO (08:47)
[2021-12-05] MEDS: dexAMETHasone 6 MG TABLET PO (08:47)
[2021-12-05] MEDS: Montelukast Sodium 10 MG TABLET PO (08:47)
--- NOTE | 2021-12-05 11:53 | HO.PM.IMPN ---
Subjective Subjective Date of Service: 12/05/21 Interval History: Chinese-speaking 86-year-old female admitted due to hypoxia related to COVID-19 infection patient offers no acute complaints, tolerating diet, no nausea no vomiting oxygenation stable 97% on 1 L No overnight fevers noted. Review of Systems Review of Systems: Yes all other systems are reviewed and are negative Physical Exam Vital Signs: Vital Signs: Last Vital Signs Temp 97.8 F 12/05/21 11:26 Pulse 70 12/05/21 11:26 Resp 16 12/05/21 11:26 BP 131/73 12/05/21 11:26 Pulse Ox 97 12/05/21 11:26 BMI result Body Mass Index 31.3 Gen:? Awake, alert, no acute distress, resting comfortably. HEENT:? Moist mucosa. Neck no JVD Pulmonary: ?No acute distress, clear to auscultation, diminished breath sounds CVS:? Normal S1-S2 Abdomen: BS+, Soft, Nontender Extremities:?no edema Neuro:? Alert and awake, clear speech Psych appropriate affect Objective Data Active Medications Amlodipine Besylate (Amlodipine Besylate 5 Mg Tablet) 5 mg PO DAILY [facility]; Protocol Last Admin: 12/05/21 08:46 Dose: 5 mg Documented by: CHRISTELLE Ascorbic Acid (Ascorbic Acid 500 Mg Tablet) 500 mg PO BID [facility] Last Admin: 12/05/21 08:46 Dose: 500 mg Documented by: CHRISTELLE Aspirin (Aspirin Enteric Coated 81 Mg Tablet.) 81 mg PO DAILY [facility] Last Admin: 12/05/21 08:47 Dose: 81 mg Documented by: CHRISTELLE Atorvastatin Calcium (Atorvastatin Calcium 20 Mg Tablet) 20 mg PO DAILY [facility] Last Admin: 12/05/21 08:45 Dose: 20 mg Documented by: CHRISTELLE Calcium Carbonate/Cholecalciferol (Calcium + Vitamin D 250 Mg Tablet) 500 mg PO BID [facility] Last Admin: 12/05/21 08:46 Dose: 500 mg Documented by: CHRISTELLE Dexamethasone (Dexamethasone 6 Mg Tablet) 6 mg PO DAILY [facility] Stop: 12/06/21 09:01 Last Admin: 12/05/21 08:47 Dose: 6 mg Documented by: CHRISTELLE Donepezil HCl (Donepezil Hcl 10 Mg Tablet) 10 mg PO DAILY [facility] Last Admin: 12/05/21 08:46 Dose: 10 mg Documented by: CHRISTELLE Enoxaparin Sodium (Enoxaparin Sodium 40 Mg/0.4 Ml Syringe) 40 mg SUBCUT Q24H [facility] Last Admin: 12/04/21 21:20 Dose: 40 mg Documented by: GASTON Ferrous Sulfate (Ferrous Sulfate 324 Mg Tablet.) 324 mg PO BID [facility] Last Admin: 12/05/21 08:46 Dose: 324 mg Documented by: CHRISTELLE Fluoxetine HCl (Fluoxetine Hcl 20 Mg Capsule) 40 mg PO BEDTIME [facility] Last Admin: 12/04/21 20:41 Dose: 40 mg Documented by: GASTON Fluticasone Propionate (Fluticasone Propionate Nasal 16 Gm [place]) 1 spray NOSTRIL-B DAILY [facility] Last Admin: 12/05/21 08:48 Dose: Not Given Documented by: CHRISTELLE Non-Admin Reason: Med Not Available Furosemide (Furosemide 20 Mg Tablet) 20 mg PO DAILY [facility]; Protocol Last Admin: 12/05/21 08:46 Dose: 20 mg Documented by: CHRISTELLE Remdesivir 100 mg/ Sodium (Chloride) 230 mls @ 115 mls/hr IV Q24H [facility] Stop: 12/06/21 16:59 Last Infusion: 12/04/21 18:05 Dose: 0 mls/hr Documented by: MEL Lisinopril (Lisinopril 20 Mg Tablet) 20 mg PO DAILY [facility]; Protocol Last Admin: 12/05/21 08:46 Dose: 20 mg Documented by: CHRISTELLE Loratadine (Loratadine 10 Mg Tablet) 10 mg PO DAILY [facility] Last Admin: 12/05/21 08:46 Dose: 10 mg Documented by: CHRISTELLE Melatonin (Melatonin 3 Mg Tablet) 6 mg PO BEDTIME PRN PRN Reason: Insomnia Memantine (Memantine Hcl 10 Mg Tablet) 10 mg PO BID [facility] Last Admin: 12/05/21 08:46 Dose: 10 mg Documented by: CHRISTELLE Mirabegron (Mirabegron 50 Mg Tab.Er.24h) 50 mg PO DAILY [facility] Last Admin: 12/05/21 08:47 Dose: 50 mg Documented by: CHRISTELLE Mirtazapine (Mirtazapine 15 Mg Tablet) 15 mg PO BEDTIME [facility] Last Admin: 12/04/21 20:42 Dose: 15 mg Documented by: GASTON Montelukast Sodium (Montelukast Sodium 10 Mg Tablet) 10 mg PO DAILY [facility] Last Admin: 12/05/21 08:47 Dose: 10 mg Documented by: CHRISTELLE Omeprazole (Omeprazole 40 Mg Capsule.) 40 mg PO DAILY [facility] Last Admin: 12/05/21 08:47 Dose: 40 mg Documented by: CHRISTELLE Senna (Sennosides 8.6 Mg Tablet) 17.2 mg PO BEDTIME PRN PRN Reason: Constipation Sodium Chloride (0.9 % Sodium Chloride Flush 3 Ml Syringe) 3 ml IVFLUSH QSHIFT [facility] Last Admin: 12/05/21 08:47 Dose: 3 ml Documented by: CHRISTELLE Trazodone HCl (Trazodone Hcl 50 Mg Tablet) 50 mg PO BEDTIME [facility] Last Admin: 12/04/21 20:42 Dose: 50 mg Documented by: GASTON Labs CBC & Chem 7: 12/02/21 07:13 12/02/21 07:13 Assessment and Plan (1) Acute respiratory failure with hypoxia: Status: Acute (2) Weakness: Status: Acute (3) COVID-19: Status: Acute Assessment and Plan: 86-year-old female with a past medical history of hypertension, dementia, CKD, nonalcoholic liver cirrhosis, history of TIA/ CVA; presented to the hospital on 11/26/2021 with a chief complaint of generalized weakness/ fever Noted to have COVID-19 positive.? Acute hypoxic respiratory failure In the setting of COVID-19 infection. Continue oxygen, finger oximetry 97% on 1 L, wean oxygen as tolerated Tested positive on 11/26/21, continue? iv?Decadron 6 mg day 04/05, on remdesivir day 3 D-dimer 601,ldh 199 CTA chest suboptimal study showed no PE CBC and electrolytes 12/02 are stable Patient lives alone at home with 30+ hours of OYSTER FLOATER care by son, ambulate without assistive device. Encourage out of bed to chair and ambulation Hypertension BP stable continue amlodipine and lisinopril Hyperlipidemia: Continue home statin Dementia: Continue home memantine and donepezil For all other chronic conditions, continue home medications including Mirabegron, mirtazepine, Prozac, and trazodone DVT prophylaxis:? Lovenox Code status:? DNR/DNI Disposition patient seen by Physical therapy and they recommend short-term rehab, patient has OYSTER FLOATER service at home that is her son but he also has COVID so there is no one to take care of her at home director of social media marketing looking for rehab bed Quality Stroke Does the patient have a stroke diagnosis?: No VTE Prior VTE?: No VTE Risk Level:: Medical - moderate - high VTE Device Contraindication: Treatment Not Indicated VTE Drug Contraindication: N/A - Med Ordered
[2021-12-05] MEDS: Remdesivir 100 MG in 0.9 % Sodium Chloride 230 ML 115 MG IV (14:24)
--- NOTE | 2021-12-05 21:31 | P.CNID_ITS ---
History of Present Illness Data of Consult Service Date: 12/03/21 Requesting physician: Selene Albright Primary Care Provider: Unknown Physician HPI Reason for consult: COVID with hypoxia She presents from home with weakness She was hypoxic 11/26 to 88% She has dementia and cant voice complaints Review of Systems Verdana 4l Review of Systems: Yes Unobtainable due to mental status Verdana 4d PMFSH Family History Family history: reviewed and not pertinent Social History Social History Household Members: Children Housing: Apartment Do you presently have visiting nurse or other home services: No Alcohol intake: unknown Patient Tobacco Use Status: Tobacco use Unknown Meds Allergies Allergy/AdvReac Type Severity Reaction Status Date / Time ceftazidime [Ceftazidime] Allergy Mild UNKNOWN Verified 12/02/21 15:04 benzocaine [Benzocaine] Allergy Unknown UNKNOWN Verified 12/02/21 15:04 butamben [From Cetacaine] Allergy Unknown UNKNOWN Verified 12/02/21 15:04 metoclopramide [From Allergy Unknown UNKNOWN Verified 12/02/21 15:04 Reglan] morphine [Morphine] Allergy Unknown SWELLING Verified 12/02/21 15:04 tetracaine [From Allergy Unknown UNKNOWN Verified 12/02/21 15:04 Cetacaine] Active Medications: Current Medications Amlodipine Besylate (Amlodipine Besylate 5 Mg Tablet) 5 mg PO DAILY [facility]; Protocol Last Admin: 12/05/21 08:46 Dose: 5 mg Documented by: Ascorbic Acid (Ascorbic Acid 500 Mg Tablet) 500 mg PO BID [facility] Last Admin: 12/05/21 08:46 Dose: 500 mg Documented by: Aspirin (Aspirin Enteric Coated 81 Mg Tablet.) 81 mg PO DAILY [facility] Last Admin: 12/05/21 08:47 Dose: 81 mg Documented by: Atorvastatin Calcium (Atorvastatin Calcium 20 Mg Tablet) 20 mg PO DAILY [facility] Last Admin: 12/05/21 08:45 Dose: 20 mg Documented by: Calcium Carbonate/Cholecalciferol (Calcium + Vitamin D 250 Mg Tablet) 500 mg PO BID [facility] Last Admin: 12/05/21 08:46 Dose: 500 mg Documented by: Dexamethasone (Dexamethasone 6 Mg Tablet) 6 mg PO DAILY [facility] Stop: 12/06/21 09:01 Last Admin: 12/05/21 08:47 Dose: 6 mg Documented by: Donepezil HCl (Donepezil Hcl 10 Mg Tablet) 10 mg PO DAILY [facility] Last Admin: 12/05/21 08:46 Dose: 10 mg Documented by: Enoxaparin Sodium (Enoxaparin Sodium 40 Mg/0.4 Ml Syringe) 40 mg SUBCUT Q24H [facility] Last Admin: 12/04/21 21:20 Dose: 40 mg Documented by: Ferrous Sulfate (Ferrous Sulfate 324 Mg Tablet.Dr) 324 mg PO BID [facility] Last Admin: 12/05/21 08:46 Dose: 324 mg Documented by: Fluoxetine HCl (Fluoxetine Hcl 20 Mg Capsule) 40 mg PO BEDTIME [facility] Last Admin: 12/04/21 20:41 Dose: 40 mg Documented by: Fluticasone Propionate (Fluticasone Propionate Nasal 16 Gm [place]) 1 spray NOSTRIL-B DAILY [facility] Last Admin: 12/05/21 08:48 Dose: Not Given Documented by: Furosemide (Furosemide 20 Mg Tablet) 20 mg PO DAILY [facility]; Protocol Last Admin: 12/05/21 08:46 Dose: 20 mg Documented by: Remdesivir 100 mg/ Sodium (Chloride) 230 mls @ 115 mls/hr IV Q24H [facility] Stop: 12/06/21 16:59 Last Infusion: 12/05/21 16:35 Dose: Infused Documented by: Lisinopril (Lisinopril 20 Mg Tablet) 20 mg PO DAILY [facility]; Protocol Last Admin: 12/05/21 08:46 Dose: 20 mg Documented by: Loratadine (Loratadine 10 Mg Tablet) 10 mg PO DAILY [facility] Last Admin: 12/05/21 08:46 Dose: 10 mg Documented by: Melatonin (Melatonin 3 Mg Tablet) 6 mg PO BEDTIME PRN PRN Reason: Insomnia Memantine (Memantine Hcl 10 Mg Tablet) 10 mg PO BID [facility] Last Admin: 12/05/21 08:46 Dose: 10 mg Documented by: Mirabegron (Mirabegron 50 Mg Tab.Er.24h) 50 mg PO DAILY [facility] Last Admin: 12/05/21 08:47 Dose: 50 mg Documented by: Mirtazapine (Mirtazapine 15 Mg Tablet) 15 mg PO BEDTIME [facility] Last Admin: 12/04/21 20:42 Dose: 15 mg Documented by: Montelukast Sodium (Montelukast Sodium 10 Mg Tablet) 10 mg PO DAILY [facility] Last Admin: 12/05/21 08:47 Dose: 10 mg Documented by: Omeprazole (Omeprazole 40 Mg Capsule.) 40 mg PO DAILY [facility] Last Admin: 12/05/21 08:47 Dose: 40 mg Documented by: Senna (Sennosides 8.6 Mg Tablet) 17.2 mg PO BEDTIME PRN PRN Reason: Constipation Sodium Chloride (0.9 % Sodium Chloride Flush 3 Ml Syringe) 3 ml IVFLUSH QSHIFT [facility] Last Admin: 12/05/21 12:49 Dose: 3 ml Documented by: Trazodone HCl (Trazodone Hcl 50 Mg Tablet) 50 mg PO BEDTIME [facility] Last Admin: 12/04/21 20:42 Dose: 50 mg Documented by: Home Medications Medication Instructions Recorded Confirmed Last Taken Type amlodipine 5 mg 1 tab PO DAILY 11/27/21 11/27/21 Unknown History tablet ascorbic acid 1 tab PO BID 11/27/21 11/27/21 Unknown History (vitamin C) 500 mg tablet (Vitamin C) aspirin 81 mg 1 tab PO DAILY 11/27/21 11/27/21 Unknown History tablet,delayed release atorvastatin 20 1 tab PO DAILY 11/27/21 11/27/21 Unknown History mg tablet calcium carbonate 1 tab PO BID 11/27/21 11/27/21 Unknown History 600 mg-vitamin D3 5 mcg (200 unit) tablet (Calcium 600 + D(3)) cetirizine 5 mg 1 tab PO DAILY 11/27/21 11/27/21 Unknown History tablet donepezil 10 mg 1 tab PO DAILY 11/27/21 11/27/21 Unknown History tablet ferrous sulfate 1 tab PO BID 11/27/21 11/27/21 Unknown History 325 mg (65 mg iron) tablet,delayed release fluoxetine 40 mg 1 cap PO BEDTIME 11/27/21 11/27/21 Unknown History capsule fluticasone 1 spray 11/27/21 11/27/21 Unknown History propionate 50 INTRANASAL DAILY mcg/actuation nasal spray,suspension furosemide 20 mg 1 tab PO DAILY 11/27/21 11/27/21 Unknown History tablet lisinopril 20 mg 1 tab PO DAILY 11/27/21 11/27/21 Unknown History tablet memantine 10 mg 1 tab PO BID 11/27/21 11/27/21 Unknown History tablet mirabegron 50 mg 1 tab PO DAILY 11/27/21 11/27/21 Unknown History tablet,extended release 24 hr (Myrbetriq) mirtazapine 15 mg 1 tab PO BEDTIME 11/27/21 11/27/21 Unknown History tablet montelukast 10 mg 1 tab PO DAILY 11/27/21 11/27/21 Unknown History tablet omeprazole 40 mg 1 cap PO DAILY 11/27/21 11/27/21 Unknown History capsule,delayed release trazodone 50 mg 1 tab PO BEDTIME 11/27/21 11/27/21 Unknown History tablet Physical Exam Verdana 4l Vital Signs: Verdana 4d Verdana 4d Vital Signs: Verdana 4d Verdana 4Bd Last Vital Signs Verdana 4d Catcher Helper New 4d Catcher Helper New 4d Temp 98.0 F 12/05/21 19:19 Catcher Helper New 4d Pulse 75 12/05/21 19:19 Catcher Helper New 4d Resp 20 12/05/21 19:19 BP 164/75 H 12/05/21 19:19 Pulse Ox 95 12/05/21 19:19 BMI result Body Mass Index 31.3 Const: General: cooperative Eyes: Pupils: Equal, round and reactive pupils present Resp: Effort & Inspection: normal respiratory effort Cardio: Rate: regular rate Rhythm: regular rhythm GI: Palpation (GI): nontender Skin: General skin exam: no rashes or lesions noted Neuro: Cranial nerves: Yes Equal, round and reactive pupils present Results Labs CBC & Chem 7: 12/02/21 07:13 12/02/21 07:13 Microbiology Microbiology Results: Microbiology 12/01/21 11:47 Blood - Venous Blood Culture - Preliminary No growth after 48 hours. 12/01/21 11:39 Blood - Venous Blood Culture - Preliminary No growth after 48 hours. 11/28/21 03:33 Blood - Venous Blood Culture - Final No growth after 5 days. 11/28/21 03:33 Blood - Venous Blood Culture - Final No growth after 5 days. 11/26/21 18:43 Blood - Venous Blood Culture - Final No growth after 5 days. 11/26/21 18:43 Blood - Venous Blood Culture - Final Anaerococcus prevotii Assessment and Plan (1) Acute respiratory failure with hypoxia: Status: Resolved She has hypoxia and is recent infection within a week She has dementia and extreme of age (2) COVID-19: Status: Acute Plan Would give Remdesivir Steroids as needed Oxygen as needed
--- NOTE | 2021-12-05 21:31 | W.PM.IDCN ---
History of Present Illness Data of Consult Service Date: 12/03/21 Requesting physician: Selene Albright Primary Care Provider: Unknown Physician HPI Reason for consult: COVID with hypoxia She presents from home with weakness She was hypoxic 11/26 to 88% She has dementia and cant voice complaints Review of Systems Review of Systems: Yes Unobtainable due to mental status PMFSH Family History Family history: reviewed and not pertinent Social History Social History Household Members: Children Housing: Apartment Do you presently have visiting nurse or other home services: No Alcohol intake: unknown Patient Tobacco Use Status: Tobacco use Unknown Meds Allergies Allergy/AdvReac Type Severity Reaction Status Date / Time ceftazidime [Ceftazidime] Allergy Mild UNKNOWN Verified 12/02/21 15:04 benzocaine [Benzocaine] Allergy Unknown UNKNOWN Verified 12/02/21 15:04 butamben [From Cetacaine] Allergy Unknown UNKNOWN Verified 12/02/21 15:04 metoclopramide [From Reglan] Allergy Unknown UNKNOWN Verified 12/02/21 15:04 morphine [Morphine] Allergy Unknown SWELLING Verified 12/02/21 15:04 tetracaine [From Cetacaine] Allergy Unknown UNKNOWN Verified 12/02/21 15:04 Active Medications: Current Medications Amlodipine Besylate (Amlodipine Besylate 5 Mg Tablet) 5 mg PO DAILY [facility]; Protocol Last Admin: 12/05/21 08:46 Dose: 5 mg Documented by: Ascorbic Acid (Ascorbic Acid 500 Mg Tablet) 500 mg PO BID [facility] Last Admin: 12/05/21 08:46 Dose: 500 mg Documented by: Aspirin (Aspirin Enteric Coated 81 Mg Tablet.) 81 mg PO DAILY [facility] Last Admin: 12/05/21 08:47 Dose: 81 mg Documented by: Atorvastatin Calcium (Atorvastatin Calcium 20 Mg Tablet) 20 mg PO DAILY [facility] Last Admin: 12/05/21 08:45 Dose: 20 mg Documented by: Calcium Carbonate/Cholecalciferol (Calcium + Vitamin D 250 Mg Tablet) 500 mg PO BID [facility] Last Admin: 12/05/21 08:46 Dose: 500 mg Documented by: Dexamethasone (Dexamethasone 6 Mg Tablet) 6 mg PO DAILY [facility] Stop: 12/06/21 09:01 Last Admin: 12/05/21 08:47 Dose: 6 mg Documented by: Donepezil HCl (Donepezil Hcl 10 Mg Tablet) 10 mg PO DAILY [facility] Last Admin: 12/05/21 08:46 Dose: 10 mg Documented by: Enoxaparin Sodium (Enoxaparin Sodium 40 Mg/0.4 Ml Syringe) 40 mg SUBCUT Q24H [facility] Last Admin: 12/04/21 21:20 Dose: 40 mg Documented by: Ferrous Sulfate (Ferrous Sulfate 324 Mg Tablet.Dr) 324 mg PO BID [facility] Last Admin: 12/05/21 08:46 Dose: 324 mg Documented by: Fluoxetine HCl (Fluoxetine Hcl 20 Mg Capsule) 40 mg PO BEDTIME [facility] Last Admin: 12/04/21 20:41 Dose: 40 mg Documented by: Fluticasone Propionate (Fluticasone Propionate Nasal 16 Gm [place]) 1 spray NOSTRIL-B DAILY [facility] Last Admin: 12/05/21 08:48 Dose: Not Given Documented by: Furosemide (Furosemide 20 Mg Tablet) 20 mg PO DAILY [facility]; Protocol Last Admin: 12/05/21 08:46 Dose: 20 mg Documented by: Remdesivir 100 mg/ Sodium (Chloride) 230 mls @ 115 mls/hr IV Q24H [facility] Stop: 12/06/21 16:59 Last Infusion: 12/05/21 16:35 Dose: Infused Documented by: Lisinopril (Lisinopril 20 Mg Tablet) 20 mg PO DAILY [facility]; Protocol Last Admin: 12/05/21 08:46 Dose: 20 mg Documented by: Loratadine (Loratadine 10 Mg Tablet) 10 mg PO DAILY [facility] Last Admin: 12/05/21 08:46 Dose: 10 mg Documented by: Melatonin (Melatonin 3 Mg Tablet) 6 mg PO BEDTIME PRN PRN Reason: Insomnia Memantine (Memantine Hcl 10 Mg Tablet) 10 mg PO BID [facility] Last Admin: 12/05/21 08:46 Dose: 10 mg Documented by: Mirabegron (Mirabegron 50 Mg Tab.Er.24h) 50 mg PO DAILY [facility] Last Admin: 12/05/21 08:47 Dose: 50 mg Documented by: Mirtazapine (Mirtazapine 15 Mg Tablet) 15 mg PO BEDTIME [facility] Last Admin: 12/04/21 20:42 Dose: 15 mg Documented by: Montelukast Sodium (Montelukast Sodium 10 Mg Tablet) 10 mg PO DAILY [facility] Last Admin: 12/05/21 08:47 Dose: 10 mg Documented by: Omeprazole (Omeprazole 40 Mg Capsule.Dr) 40 mg PO DAILY [facility] Last Admin: 12/05/21 08:47 Dose: 40 mg Documented by: Senna (Sennosides 8.6 Mg Tablet) 17.2 mg PO BEDTIME PRN PRN Reason: Constipation Sodium Chloride (0.9 % Sodium Chloride Flush 3 Ml Syringe) 3 ml IVFLUSH QSHIFT [facility] Last Admin: 12/05/21 12:49 Dose: 3 ml Documented by: Trazodone HCl (Trazodone Hcl 50 Mg Tablet) 50 mg PO BEDTIME [facility] Last Admin: 12/04/21 20:42 Dose: 50 mg Documented by: Home Medications Medication Instructions Recorded Confirmed Last Taken Type amlodipine 5 mg tablet 1 tab PO DAILY 11/27/21 11/27/21 Unknown History ascorbic acid (vitamin C) 500 mg 1 tab PO BID 11/27/21 11/27/21 Unknown History tablet (Vitamin C) aspirin 81 mg tablet,delayed 1 tab PO DAILY 11/27/21 11/27/21 Unknown History release atorvastatin 20 mg tablet 1 tab PO DAILY 11/27/21 11/27/21 Unknown History calcium carbonate 600 mg-vitamin 1 tab PO BID 11/27/21 11/27/21 Unknown History D3 5 mcg (200 unit) tablet (Calcium 600 + D(3)) cetirizine 5 mg tablet 1 tab PO DAILY 11/27/21 11/27/21 Unknown History donepezil 10 mg tablet 1 tab PO DAILY 11/27/21 11/27/21 Unknown History ferrous sulfate 325 mg (65 mg 1 tab PO BID 11/27/21 11/27/21 Unknown History iron) tablet,delayed release fluoxetine 40 mg capsule 1 cap PO BEDTIME 11/27/21 11/27/21 Unknown History fluticasone propionate 50 1 spray INTRANASAL DAILY 11/27/21 11/27/21 Unknown History mcg/actuation nasal spray,suspension furosemide 20 mg tablet 1 tab PO DAILY 11/27/21 11/27/21 Unknown History lisinopril 20 mg tablet 1 tab PO DAILY 11/27/21 11/27/21 Unknown History memantine 10 mg tablet 1 tab PO BID 11/27/21 11/27/21 Unknown History mirabegron 50 mg tablet,extended 1 tab PO DAILY 11/27/21 11/27/21 Unknown History release 24 hr (Myrbetriq) mirtazapine 15 mg tablet 1 tab PO BEDTIME 11/27/21 11/27/21 Unknown History montelukast 10 mg tablet 1 tab PO DAILY 11/27/21 11/27/21 Unknown History omeprazole 40 mg capsule,delayed 1 cap PO DAILY 11/27/21 11/27/21 Unknown History release trazodone 50 mg tablet 1 tab PO BEDTIME 11/27/21 11/27/21 Unknown History Physical Exam Vital Signs: Vital Signs: Last Vital Signs Temp 98.0 F 12/05/21 19:19 Pulse 75 12/05/21 19:19 Resp 20 12/05/21 19:19 BP 164/75 H 12/05/21 19:19 Pulse Ox 95 12/05/21 19:19 BMI result Body Mass Index 31.3 Const: General: cooperative Eyes: Pupils: Equal, round and reactive pupils present Resp: Effort & Inspection: normal respiratory effort Cardio: Rate: regular rate Rhythm: regular rhythm GI: Palpation (GI): nontender Skin: General skin exam: no rashes or lesions noted Neuro: Cranial nerves: Yes Equal, round and reactive pupils present Results Labs CBC & Chem 7: 12/02/21 07:13 12/02/21 07:13 Microbiology Microbiology Results: Microbiology 12/01/21 11:47 Blood - Venous Blood Culture - Preliminary No growth after 48 hours. 12/01/21 11:39 Blood - Venous Blood Culture - Preliminary No growth after 48 hours. 11/28/21 03:33 Blood - Venous Blood Culture - Final No growth after 5 days. 11/28/21 03:33 Blood - Venous Blood Culture - Final No growth after 5 days. 11/26/21 18:43 Blood - Venous Blood Culture - Final No growth after 5 days. 11/26/21 18:43 Blood - Venous Blood Culture - Final Anaerococcus prevotii Assessment and Plan (1) Acute respiratory failure with hypoxia: Status: Resolved She has hypoxia and is recent infection within a week She has dementia and extreme of age (2) COVID-19: Status: Acute Plan Would give Remdesivir Steroids as needed Oxygen as needed
[2021-12-05] MEDS: Mirtazapine 15 MG TABLET PO (21:52)
[2021-12-05] MEDS: FLUoxetine HCl 20 MG CAPSULE 40 MG PO (21:52)
[2021-12-05] MEDS: traZODone HCL 50 MG TABLET PO (21:53)
[2021-12-05] MEDS: Enoxaparin Sodium 40 MG/0.4 ML SYRINGE SUBCUT (22:28)
[2021-12-06] MEDS: 0.9 % Sodium Chloride Flush 3 ML SYRINGE IVFLUSH ×2 (01:15→09:34)
[2021-12-06 04:00] VITALS: BP 135/67; PULSE 73; RESP 18; TEMP 36.6; O2SAT 95
[2021-12-06 07:58] VITALS: BP 140/68; PULSE 66; RESP 16; TEMP 36.1; O2SAT 96
[2021-12-06] MEDS: Memantine HCl 10 MG TABLET PO (09:34)
[2021-12-06] MEDS: Atorvastatin Calcium 20 MG TABLET PO (09:34)
[2021-12-06] MEDS: Montelukast Sodium 10 MG TABLET PO (09:34)
[2021-12-06] MEDS: Furosemide 20 MG TABLET PO (09:34)
[2021-12-06] MEDS: Aspirin Enteric Coated 81 MG TABLET.DR PO (09:34)
[2021-12-06] MEDS: Omeprazole 40 MG CAPSULE.DR PO (09:34)
[2021-12-06] MEDS: Ferrous Sulfate 324 MG TABLET.DR PO (09:34)
[2021-12-06] MEDS: Calcium + Vitamin D 250 MG TABLET 500 MG PO (09:34)
[2021-12-06] MEDS: dexAMETHasone 6 MG TABLET PO (09:34)
[2021-12-06] MEDS: Ascorbic Acid 500 MG TABLET PO (09:34)
[2021-12-06] MEDS: amLODIPine Besylate 5 MG TABLET PO (09:34)
[2021-12-06] MEDS: Loratadine 10 MG TABLET PO (09:34)
[2021-12-06] MEDS: Donepezil HCl 10 MG TABLET PO (09:34)
[2021-12-06] MEDS: Mirabegron 50 MG TAB.ER.24H PO (09:34)
[2021-12-06] MEDS: lisinopriL 20 MG TABLET PO (09:34)
--- NOTE | 2021-12-06 11:34 | MHC.CM.PN ---
Patient will be medically cleared for dc today to [facility]. Patient will dc to [facility] today at 1PM, via [facility]. Patient/Granddaughter/HCP/Elena @ [phone] are aware of and in agreement with the dc plan. Patient is Covid (+): CM addressed IMM with Elena and original will be mailed certified letter to her and a copy has been placed on the chart.
[2021-12-06 11:45] VITALS: BP 147/85; PULSE 70; RESP 20; TEMP 35.9; O2SAT 95
--- NOTE | 2021-12-06 11:48 | PM.DS ---
DS: Providers Provider Date of Service: 12/06/21 Date of admission: 12/01/21 23:00 Primary care physician: Unknown Physician Consults: 12/01/21 22:59 Consult to Infectious Diseases Routine Consulting Provider: Anita Tan Reason for consultation: COVID positive DS: Diagnosis Discharge Diagnosis (1) Acute respiratory failure with hypoxia: Status: Acute (2) COVID-19: Status: Acute DS: Summary Hospital Course Hospital Course: Chief Complaint:? generalized weakness ?86-year-old female with a past medical history of hypertension, dementia, CKD, nonalcoholic liver cirrhosis, history of TIA/ CVA; presented to the hospital on 11/26/2021 with a chief complaint of generalized weakness/ fever at home.? Patient initial workup was the noted to be positive for COVID-19 but not hypoxic; patient being placed in the ER and was pending placement with the case management in a rehab; On 11/30/2020 patient was noted to be hypoxic to 88% on room air; CT angio of the chest was done which showed no evidence of central pulmonary embolism; patient was placed on supplemental oxygen and decided to admit to the hospital for further evaluation.? ?patient is presently lying in the bed; denies any complaints; ?I spoke to the patient's family Elena ?denies any chest pain palpitations lightheadedness or dizziness.? Denies any GI symptoms.? Review of all other systems is negative except mentioned above ER course: Per ER team patient was initially stable with COVID positive; plan to discharge to a rehab; and later noted to have hypoxic to 88% on room air; placed on supplemental oxygen; not in respiratory distress; CT angio showed no evidence of central pulmonary embolism; given Decadron.? Admitted to the hospital for further management. Hospital course 86-year-old female with a past medical history of hypertension, dementia, CKD, nonalcoholic liver cirrhosis, history of TIA/ CVA; presented to the hospital on 11/26/2021 with a chief complaint of generalized weakness/ fever Noted to have COVID-19 positive, while in the ER waiting for rehab bed patient noted to have hypoxia and diagnosed to have Acute hypoxic respiratory failure In the setting of COVID-19 infection, patient admitted to isolation unit treated with IV Decadron and IV remdesivir patient finished course of remdesivir her oxygenation is improved currently finger oximetry 95% on room air, patient have low COVID markers, CTA chest was a suboptimal study but showed no PE her CBC and electrolytes are stable patient is now being discharged to rehab facility due to generalized weakness , patient lives at home with [employer] services Hypertension blood pressure remains stable continue home medication amlodipine and lisinopril. In regard to Dementia: Continue home medications memantine and donepezil In regard to all other chronic medical issues she has been continued on all home medication except patient did not receive Haldol at bedtime. Time Spent with Patient Time attestation: Total time spent providing and/or coordinating discharge services: Discharge coordination time: Greater than 30 minutes Quality: Stroke Does the patient have a stroke diagnosis?: No Physical Exam Vital Signs: Vital Signs: Last Vital Signs Temp 96.7 F L 12/06/21 11:45 Pulse 70 12/06/21 11:45 Resp 20 12/06/21 11:45 BP 147/85 H 12/06/21 11:45 Pulse Ox 95 12/06/21 11:45 BMI result Body Mass Index 31.3 Gen:? Awake, alert, no acute distress, resting comfortably. HEENT:? Moist mucosa. Neck no JVD Pulmonary: ?No acute distress, clear to auscultation, diminished breath sounds CVS:? Normal S1-S2 Abdomen: BS+, Soft, Nontender Extremities:?no edema Neuro:? Alert and awake, clear speech Psych appropriate affect DS: Data Data Completed and Pending Labs on day of discharge: Preliminary micro results at discharge 12/01/21 11:47 Blood Culture - Preliminary Blood - Venous No growth after 48 hours. 12/01/21 11:39 Blood Culture - Preliminary Blood - Venous No growth after 48 hours. Discharge Plan Discharge Patient Disposition: Xfer SNF Discharge Diagnosis: Acute hypoxic respiratory failure due to COVID-19 Referrals: [facility] [Other] - 1 Week Physician,Unknown J [Primary Care Provider] - 1 Week Discharge Medications: Continued fluoxetine 40 mg capsule 1 cap PO BEDTIME RF: 0 atorvastatin 20 mg tablet 1 tab PO DAILY RF: 0 trazodone 50 mg tablet 1 tab PO BEDTIME RF: 0 cetirizine 5 mg tablet 1 tab PO DAILY RF: 0 donepezil 10 mg tablet 1 tab PO DAILY RF: 0 lisinopril 20 mg tablet 1 tab PO DAILY RF: 0 amlodipine 5 mg tablet 1 tab PO DAILY RF: 0 calcium carbonate-vitamin D3 [Calcium 600 + D(3)] 600 mg-5 mcg (200 unit) tablet 1 tab PO BID RF: 0 omeprazole 40 mg capsule,delayed release(DR/EC) 1 cap PO DAILY RF: 0 aspirin 81 mg tablet,delayed release (DR/EC) 1 tab PO DAILY RF: 0 ascorbic acid (vitamin C) [Vitamin C] 500 mg tablet 1 tab PO BID RF: 0 montelukast 10 mg tablet 1 tab PO DAILY RF: 0 furosemide 20 mg tablet 1 tab PO DAILY RF: 0 mirtazapine 15 mg tablet 1 tab PO BEDTIME RF: 0 ferrous sulfate 325 mg (65 mg iron) tablet,delayed release (DR/EC) 1 tab PO BID RF: 0 fluticasone propionate 50 mcg/actuation spray,suspension 1 spray intranasal DAILY RF: 0 memantine 10 mg tablet 1 tab PO BID RF: 0 Myrbetriq 50 mg tablet extended release 24 hr 1 tab PO DAILY RF: 0 Discontinued haloperidol lactate 2 mg/mL concentrate 1 mg PO QPM RF: 0 Discharge Orders: Discharge Order (Routine); Ordered 12/06/21 Ordered By: Selene Albright Diet: low fat, low cholesterol Activity on Discharge: As tolerated Stand Alone Forms: Patient Portal Discharge page Care Plan Goals: COVID-19 infection with hypoxia patient received Decadron for 6 days as well as remdesivir, oxygenation is stable at room air Health Concerns: Dementia, hypertension, hyperlipidemia, mood disorder continue all home medications as before was on Haldol 1 mg at bedtime patient did not receive this medication while in hospital. Plan of Treatment: Outpatient follow-up with PCP in 7-10 days Assessment: See discharge summary
== END 2021-12-06 14:33 | disposition skilled nursing facility (03) | DRG 177 ==
LOC: HO.ED 11-30 13:00 → HO.EDOVER 12-01 23:35 → HO.IMC 12-02 08:46
PROVIDERS: Emergency Medicine; Emergency Medicine Emergency Medical Services; Internal Medicine; Physician Assistant; Admitting Provider Hospitalist; Emergency Provider Internal Medicine; PCP Family Medicine; Visit Provider Hospitalist
DX: U07.1 COVID-19 (principal); J96.01 Acute respiratory failure with hypoxia; I12.9 Hypertensive chronic kidney disease with stage 1 through stage 4 chronic kidney disease, or unspecified chronic kidney disease; F03.90 Unspecified dementia, unspecified severity, without behavioral disturbance, psychotic disturbance, mood disturbance, and anxiety; E78.5 Hyperlipidemia, unspecified; K74.69 Other cirrhosis of liver; N18.9 Chronic kidney disease, unspecified; Z86.73 Personal history of transient ischemic attack (TIA), and cerebral infarction without residual deficits; Z79.82 Long term (current) use of aspirin; Z79.51 Long term (current) use of inhaled steroids; Z79.899 Other long term (current) drug therapy; Z66 Do not resuscitate
CPT/HCPCS: 0241U; 36415; 70450; 71045; 71275; 72125; 73521; 74177; 80048; 80053; 81001; 82728; 82947; 83605; 83615; 83690; 83880; 84450; 84460; 84484; 85025; 85379; 85610; 85730; 87040; 87076; 87205; 93005; 96361; 96374; 96375; 97162; 97530; 99285; J1100; J1650; J2543; J3490; J8540; Q9967

== ENCOUNTER 2022-09-13 18:31 | Observation (INO) | payer OTHER, SELFPAY ==
[2022-09-13 18:45] VITALS: BP 134/77; BP 147/70; PULSE 70; PULSE 78; RESP 18; TEMP 37.2; O2SAT 96; O2SAT 97; BMI 34.8
--- NOTE | 2022-09-13 18:50 | ED.GENADULT ---
HPI - General Adult General Chief complaint: Allergic Reaction Stated complaint: allergic reaction Time Seen by Provider: 09/13/22 18:38 Source: patient, family and EMS Mode of arrival: EMS Limitations: no limitations History of Present Illness HPI narrative: Patient comes emergency room complaining of an allergic reaction to unknown substance. According to the patient her daughter, the patient has had recurrent hives in the face, head, neck, chest and forearms. Patient has been evaluated at the [facility], patient was prescribed hydrocortisone. Patient denies chest pain or shortness of breath, no oropharyngeal swelling. The hives have been present for approximately 1 month now, sometimes they get better sometimes they worsen. The reason they came today is because the patient is having periorbital edema. Related Data Home Medications Medication Instructions Recorded Confirmed amlodipine 5 mg tablet 1 tab PO DAILY 11/27/21 11/27/21 ascorbic acid (vitamin C) 500 mg 1 tab PO BID 11/27/21 11/27/21 tablet (Vitamin C) aspirin 81 mg tablet,delayed 1 tab PO DAILY 11/27/21 11/27/21 release atorvastatin 20 mg tablet 1 tab PO DAILY 11/27/21 11/27/21 calcium carbonate 600 mg-vitamin 1 tab PO BID 11/27/21 11/27/21 D3 5 mcg (200 unit) tablet (Calcium 600 + D(3)) cetirizine 5 mg tablet 1 tab PO DAILY 11/27/21 11/27/21 donepezil 10 mg tablet 1 tab PO DAILY 11/27/21 11/27/21 ferrous sulfate 325 mg (65 mg 1 tab PO BID 11/27/21 11/27/21 iron) tablet,delayed release fluoxetine 40 mg capsule 1 cap PO BEDTIME 11/27/21 11/27/21 fluticasone propionate 50 1 spray intranasal DAILY 11/27/21 11/27/21 mcg/actuation nasal spray,suspension furosemide 20 mg tablet 1 tab PO DAILY 11/27/21 11/27/21 lisinopril 20 mg tablet 1 tab PO DAILY 11/27/21 11/27/21 memantine 10 mg tablet 1 tab PO BID 11/27/21 11/27/21 mirabegron 50 mg tablet,extended 1 tab PO DAILY 11/27/21 11/27/21 release 24 hr (Myrbetriq) mirtazapine 15 mg tablet 1 tab PO BEDTIME 11/27/21 11/27/21 montelukast 10 mg tablet 1 tab PO DAILY 11/27/21 11/27/21 omeprazole 40 mg capsule,delayed 1 cap PO DAILY 11/27/21 11/27/21 release trazodone 50 mg tablet 1 tab PO BEDTIME 11/27/21 11/27/21 Allergies Allergy/AdvReac Type Severity Reaction Status Date / Time ceftazidime [Ceftazidime] Allergy Mild UNKNOWN Verified 12/02/21 15:04 benzocaine [Benzocaine] Allergy Unknown UNKNOWN Verified 12/02/21 15:04 butamben [From Cetacaine] Allergy Unknown UNKNOWN Verified 12/02/21 15:04 metoclopramide [From Reglan] Allergy Unknown UNKNOWN Verified 12/02/21 15:04 morphine [Morphine] Allergy Unknown SWELLING Verified 12/02/21 15:04 tetracaine [From Cetacaine] Allergy Unknown UNKNOWN Verified 12/02/21 15:04 Review of Systems Review of Systems: Constitutional : No Weight loss, No Fever, No Chills, No Night Sweats, No Fatigue, No Malaise ENT/Mouth : No Hearing loss, No Ear Pain, No Nasal Congestion, No Sinus Pain, No Hoarseness, No sore throat, No Rhinorrhea, No Swallowing Difficulty Eyes: No Eye Pain, No Swelling, No Redness, No Foreign Body, No Discharge, No Vision Changes Cardiovascular : No Chest Pain, No SOB, No Dyspnea on Exertion, No Orthopnea, No Edema, No Palpitations Respiratory : No Cough, No Sputum, No Wheezing, No Smoke Exposure, No Dyspnea Gastrointestinal : No Nausea, No Vomiting, No Diarrhea, No Constipation, No abdominal Pain, No Hematochezia, No Melena Genitourinary : no irregular bleeding, No Dysuria, No Urinary Frequency, No Hematuria, No Urinary Incontinence, No Urgency, No Flank Pain, No Urinary Flow Changes, No Hesitancy Musculoskeletal : No joint pain, No Myalgias, No Joint Swelling Skin : Complaining of hives in the chest forearms head back neck Neuro : No Weakness, No Numbness, No Paresthesias, No Loss of Consciousness, No Dizziness, No Headache Psych : No Anxiety/Panic, No Depression, No SI/HI/AH/VH, No Social Issues, Heme/Lymph: No Bruising, No Bleeding,No Lymphadenopathy Endocrine : No Polyuria, No Polydipsia, No Temperature Intolerance [facility] Past Medical History Medical History CKD (chronic kidney disease) CVA (cerebral vascular accident) Dementia Hypertension Non-alcoholic micronodular cirrhosis of liver Social History Social History Household Members: Children Housing: Apartment Do you presently have visiting nurse or other home services: No Alcohol intake: unknown Patient Tobacco Use Status: Tobacco use Unknown Smoked in Last 30 Days: No Use of substances other than those prescribed or required for medical reasons: No Advance Directives: No Physical Exam ED Vital Signs: Vital Signs - 24 hr 09/13/22 18:45 09/13/22 20:50 09/13/22 21:35 Temperature 98.9 F 98.4 F Pulse Rate 78 73 88 Respiratory Rate 18 17 20 Blood Pressure 147/70 H 132/64 Pulse Oximetry 96 93 Oxygen Delivery Method Room Air Room Air 09/13/22 22:10 Temperature Pulse Rate 85 Respiratory Rate 21 H Blood Pressure 129/63 Pulse Oximetry 92 Oxygen Delivery Method Room Air BMI result Body Mass Index 34.8 Const Other: Appearance: Alert. Oriented X3. No acute distress. Eyes: Pupils equal, round and reactive to light. Bilateral cataract ENT: Pharynx normal. Neck: Normal inspection. Neck supple. No lymph nodes noted. No crepitus CVS: Normal heart rate and rhythm. Pulses normal. Normal S1 and S2 Respiratory: No respiratory distress. Breath sounds normal. No Wheezing. No rales Abdomen: Soft and nontender. No rigidity. No distention. Skin: Skin warm and dry. Patient has hives in the forehead, periorbital edema, hives in the head, back of neck, forearms. Also on the chest be shaved matching the shirt outlined Extremities: No lower extremity edema. No Lacerations. No Rash Neuro: Oriented X 3. No motor deficit. No sensory deficit. Moving all extremities. No slurred speech. CN 2 through 12 grossly intact Psych: calm, cooperative, normal affect Course Course Course Narrative: I discussed with the patient's daughter who is at bedside that patient is likely allergic to something that is in the house. Patient has had this rash intermittently for approximately 1 month. Patient's rash is only in exposed areas, areas that are covered with clothes are not affected. Patient receiving IV Solu-Medrol, cortisone, Pepcid Patient received a 2nd dose of the above-mentioned medications since there was no significant improvement. However, patient started wheezing. Patient was given a albuterol treatment. Given that the patient has been treated for a month with topical steroids and the wheezing reaction that the patient had after getting the above-mentioned medications, I suspect that the patient has an allergic reaction to steroids. Patient is to wheezing, no airway compromise, oxygen saturation 99% on room air, breathing effortlessly, speaking in full sentences Patient being admitted Medical Decision Making Lab Data Result diagrams: 09/13/22 22:07 09/13/22 22:07 Labs: Lab Results 09/13/22 09/13/22 09/13/22 Range/Units 22:07 22:07 22:07 WBC 9.4 (4.8-10.8) X10*3/uL RBC 4.55 (4.20-5.50) X10*6/uL Hgb 13.7 (12.0-16.0) g/dl Hct 42.3 (37.0-47.0) % MCV 93.0 (80.0-98.0) fL MCH 30.1 (27.0-33.0) pg MCHC 32.4 (31.0-35.0) g/dl RDW 14.4 (11.0-16.0) % Plt Count 129 L (160-400) X10*3/uL MPV 10.9 (9.4-12.3) fL Immature Gran % (Auto) 0.3 (0.0-0.4) % Neut % (Auto) 80.5 H (45-73) % Lymph % (Auto) 9.2 L (20-40) % [place] % (Auto) 1.5 L (2-11) % Eos % (Auto) 8.1 H (0-4) % Baso % (Auto) 0.4 (0-2) % Lymph # (Auto) 0.9 L (1.2-4.9) X10*3/uL [place] # (Auto) 0.1 (0.1-1.2) X10*3/uL Eos # (Auto) 0.8 H (0.0-0.4) X10*3/uL Baso # (Auto) 0.0 (0.0-0.2) X10*3/uL Abs Immat Gran (auto) 0.03 (0.00-0.03) X10*3/uL Absolute Neuts (auto) 7.6 (2.0-8.3) x10*3/uL Absolute Nucleated RBC 0.000 (0.0-0.012) X10*3/uL Nucleated RBC % (auto) 0.0 (0.0-0.2) /100WBC Smear Tech's Comments VERIFIED Sodium 146 H (135-145) mmol/L Potassium 3.9 (3.3-5.1) mmol/L Chloride 109 H (96-108) mmol/L Carbon Dioxide 23 (22-29) mmol/L Anion Gap 18 (12-20) BUN 21 H (9-16) mg/dL Creatinine 1.39 (0.5-1.4) mg/dL Estim Creat Clear Calc 33.1 Estimated GFR 36 Random Glucose 183 H (60-115) mg/dL Calcium 9.5 D (8.4-10.2) mg/dL Total Bilirubin 0.6 (0.0-1.0) mg/dL Direct Bilirubin 0.2 (0.0-0.5) mg/dL AST 21 (5-31) U/L ALT 19 (0-31) U/L Alkaline Phosphatase 85 D (39-117) U/L Total Protein 7.0 (6.5-8.0) g/dL Albumin 4.0 (3.5-5.0) g/dL COVID-19 (SHEELA) Negative (Negative) COVID-19 Clin Com See Note Critical Care Time Critical Care Time Critical Care Time: Yes Total Critical Care Time: 30 Attestation: I have personally provided critical care time. Time includes review of lab data, radiology results, discussion with consultants, and monitoring for potential decompensation. Intervention performed as documented. Discharge Plan Discharge Clinical Impression: Allergic reaction Patient Disposition: Admitted As Inpatient Prescriptions: No Action fluoxetine 40 mg capsule 1 cap PO BEDTIME atorvastatin 20 mg tablet 1 tab PO DAILY trazodone 50 mg tablet 1 tab PO BEDTIME cetirizine 5 mg tablet 1 tab PO DAILY donepezil 10 mg tablet 1 tab PO DAILY lisinopril 20 mg tablet 1 tab PO DAILY amlodipine 5 mg tablet 1 tab PO DAILY calcium carbonate-vitamin D3 [Calcium 600 + D(3)] 600 mg-5 mcg (200 unit) tablet 1 tab PO BID omeprazole 40 mg capsule,delayed release(DR/EC) 1 cap PO DAILY aspirin 81 mg tablet,delayed release (DR/EC) 1 tab PO DAILY ascorbic acid (vitamin C) [Vitamin C] 500 mg tablet 1 tab PO BID montelukast 10 mg tablet 1 tab PO DAILY furosemide 20 mg tablet 1 tab PO DAILY mirtazapine 15 mg tablet 1 tab PO BEDTIME ferrous sulfate 325 mg (65 mg iron) tablet,delayed release (DR/EC) 1 tab PO BID fluticasone propionate 50 mcg/actuation spray,suspension 1 spray intranasal DAILY memantine 10 mg tablet 1 tab PO BID Myrbetriq 50 mg tablet extended release 24 hr 1 tab PO DAILY
[2022-09-13] MEDS: diphenhydrAMINE HCL 50 MG/ML VIAL IVPUSH (18:55)
[2022-09-13] MEDS: Famotidine/PF 20 MG/2 ML VIAL IVPUSH ×2 (18:55→21:04)
[2022-09-13] MEDS: methylPREDNISolone Sod Succ 125 MG/2 ML VIAL IVPUSH ×2 (18:55→21:04)
[2022-09-13 20:50] VITALS: BP 132/64; PULSE 73; RESP 17; TEMP 36.9; O2SAT 93
[2022-09-13] MEDS: diphenhydrAMINE HCL 50 MG/ML VIAL 25 MG IVPUSH (21:04)
[2022-09-13] MEDS: Albuterol Sulfate (0.083%) 2.5 MG/3 ML VIAL.NEB 5 MG INHALE (21:34)
[2022-09-13 21:35] VITALS: PULSE 88; RESP 20; O2SAT 94
[2022-09-13 22:10] VITALS: BP 129/63; PULSE 85; RESP 21; O2SAT 92
[2022-09-13 22:14] LABS: Hemoglobin 13.7 g/dl (12.0-16.0); Imm Gran Abs Auto 0.03 X10*3/uL (0.00-0.03); Imm Gran Pct Auto 0.3 % (0.0-0.4); MANUAL DIFF FLAG SCAN; PLT CLUMP 1; SCAN SMEAR FLAG 1
[2022-09-13 22:16] LABS: Basophils Percent Auto 0.4 % (0-2); Eosinophils Absolute Auto 0.8 X10*3/uL (0.0-0.4); Eosinophils Percent Auto 8.1 % (0-4); Hematocrit 42.3 % (37.0-47.0); Lymphocytes Absolute Auto 0.9 X10*3/uL (1.2-4.9); Lymphocytes Percent Auto 9.2 % (20-40); Mean Corpuscular HGB Conc 32.4 g/dl (31.0-35.0); Mean Corpuscular Hemoglobin 30.1 pg (27.0-33.0); Mean Platelet Volume 10.9 fL (9.4-12.3); Monocytes Absolute Auto 0.1 X10*3/uL (0.1-1.2); Monocytes Percent Auto 1.5 % (2-11); Neutrophils Absolute Auto 7.6 x10*3/uL (2.0-8.3); Neutrophils Percent Auto 80.5 % (45-73); Red Blood Count 4.55 X10*6/uL (4.20-5.50); Red Cell Distribution Width 14.4 % (11.0-16.0)
[2022-09-13 22:22] LABS: White Blood Count 9.4 X10*3/uL (4.8-10.8)
[2022-09-13 22:23] LABS: Platelet Count 129 X10*3/uL (160-400)
[2022-09-13 22:30] LABS: Alanine Aminotransferase 19 U/L (0-31); Alkaline Phosphatase 85 U/L (39-117); Anion Gap 18 (12-20); Aspartate Amino Transferase 21 U/L (5-31); Bilirubin Direct 0.2 mg/dL (0.0-0.5); Bilirubin Total 0.6 mg/dL (0.0-1.0); Blood Urea Nitrogen 21 mg/dL (9-16); Calcium 9.5 mg/dL (8.4-10.2); Carbon Dioxide 23 mmol/L (22-29); Chloride 109 mmol/L (96-108); Creatinine Clr Calc Pharmacy 33.1; Estimated Glomerular Filt Rate 36; Glucose Random 183 mg/dL (60-115); Potassium 3.9 mmol/L (3.3-5.1); Sodium 146 mmol/L (135-145)
[2022-09-13 22:45] LABS: SLIDE REVIEW VERIFIED
[2022-09-13 22:49] LABS: COVID-19 Test Negative (Negative)
[2022-09-14] VITALS (8 sets, daily range): BP systolic 121–148; BP diastolic 52–79; PULSE 69–105; RESP 16–21; TEMP 36.1–36.8; O2SAT 93–98
--- NOTE | 2022-09-14 00:51 | P.HPHOSP_ITS ---
History of Present Illness Date of Service: 09/14/22 Chief Complaint: hives 87-year-old female with past medical history of CKD, CVA, history of dementia, hypertension, cirrhosis of the liver, presents to the hospital brought in by her granddaughter who is her healthcare proxy for evaluation of hives, as well as s welling around her eyes. Granddaughter appears agitated, I had to bring in an supervisor fruit grading as patient does not speak [place] Irish, only Anguillan. History is obtained with the help of a metal control coordinator. It appears that for the past 3 weeks to 1 month patient has had hives and significant itchiness around her chest area scalp face as well as arms bilaterally. According to the granddaughter she had a trial of prednisone which improved her symptoms, once prednisone was stopped, she was given topical hydrocortisone which did not help, she then woke up with swelling around her eyes, itchiness in her face scalp and chest therefore brought into the hospital. While in the ED patient received a cocktail of Benadryl, Pepcid, as well as Solu-Medrol, and immediately after that she started complaining of shortness of breath and significant wheezing, patient was given breathing treatment which improved her breathing but she continued to have wheezing therefore was decided patient should be admitted for evaluation and monitoring overnight. On arrival to the ED patient hemodynamically stable with no significant abnormal vitals Labs overall unremarkable with no significant findings Review of Systems Review of Systems: Yes all other systems are reviewed and are negative [facility] Medical History (Updated 09/14/22 @ 06:14 by Radha Arzola MD) CKD (chronic kidney disease) CVA (cerebral vascular accident) Dementia Hypertension Non-alcoholic micronodular cirrhosis of liver Pertinent family history: Patient does not know Surgical History (Updated 09/14/22 @ 06:04 by Radha Arzola MD) No pertinent past surgical history Social History Household Members: Children Housing: Apartment Do you presently have visiting nurse or other home services: No Alcohol intake: unknown Patient Tobacco Use Status: Tobacco use Unknown Smoked in Last 30 Days: No Use of substances other than those prescribed or required for medical reasons: No Advance Directives: No Meds Allergies Allergy/AdvReac Type Severity Reaction Status Date / Time ceftazidime [Ceftazidime] Allergy Mild UNKNOWN Verified 12/02/21 15:04 benzocaine [Benzocaine] Allergy Unknown UNKNOWN Verified 12/02/21 15:04 butamben [From Cetacaine] Allergy Unknown UNKNOWN Verified 12/02/21 15:04 metoclopramide [From Reglan] Allergy Unknown UNKNOWN Verified 12/02/21 15:04 morphine [Morphine] Allergy Unknown SWELLING Verified 12/02/21 15:04 tetracaine [From Cetacaine] Allergy Unknown UNKNOWN Verified 12/02/21 15:04 Home Medications Medication Instructions Recorded Confirmed Last Taken Type amlodipine 5 mg tablet 1 tab PO DAILY 11/27/21 11/27/21 Unknown History ascorbic acid (vitamin C) 500 mg 1 tab PO BID 11/27/21 11/27/21 Unknown History tablet (Vitamin C) aspirin 81 mg tablet,delayed 1 tab PO DAILY 11/27/21 11/27/21 Unknown History release atorvastatin 20 mg tablet 1 tab PO DAILY 11/27/21 11/27/21 Unknown History calcium carbonate 600 mg-vitamin 1 tab PO BID 11/27/21 11/27/21 Unknown History D3 5 mcg (200 unit) tablet (Calcium 600 + D(3)) cetirizine 5 mg tablet 1 tab PO DAILY 11/27/21 11/27/21 Unknown History donepezil 10 mg tablet 1 tab PO DAILY 11/27/21 11/27/21 Unknown History ferrous sulfate 325 mg (65 mg 1 tab PO BID 11/27/21 11/27/21 Unknown History iron) tablet,delayed release fluoxetine 40 mg capsule 1 cap PO BEDTIME 11/27/21 11/27/21 Unknown History fluticasone propionate 50 1 spray intranasal DAILY 11/27/21 11/27/21 Unknown History mcg/actuation nasal spray,suspension furosemide 20 mg tablet 1 tab PO DAILY 11/27/21 11/27/21 Unknown History lisinopril 20 mg tablet 1 tab PO DAILY 11/27/21 11/27/21 Unknown History memantine 10 mg tablet 1 tab PO BID 11/27/21 11/27/21 Unknown History mirabegron 50 mg tablet,extended 1 tab PO DAILY 11/27/21 11/27/21 Unknown History release 24 hr (Myrbetriq) mirtazapine 15 mg tablet 1 tab PO BEDTIME 11/27/21 11/27/21 Unknown History montelukast 10 mg tablet 1 tab PO DAILY 11/27/21 11/27/21 Unknown History omeprazole 40 mg capsule,delayed 1 cap PO DAILY 11/27/21 11/27/21 Unknown History release trazodone 50 mg tablet 1 tab PO BEDTIME 11/27/21 11/27/21 Unknown History Physical Exam Vital Signs and Narrative: Vital Signs: Last Vital Signs Temp 98.4 F 09/13/22 20:50 Pulse 85 09/13/22 22:10 Resp 21 H 09/13/22 22:10 BP 129/63 09/13/22 22:10 Pulse Ox 92 09/13/22 22:10 O2 Del Method 09/13/22 22:10 BMI result Body Mass Index 34.8 Const: Other: Patient is awake, alert, oriented to self place but not time or situation General: cooperative and no acute distress Eyes: Other: Periorbital edema bilaterally Pupils: Equal, round and reactive pupils present Resp: Effort & Inspection: normal respiratory effort Auscultation: clear to auscultation bilaterally Cardio: Rate: regular rate Rhythm: regular rhythm GI: Palpation (GI): Soft to palpation Auscultation: normal bowel sounds Skin: Other: Hives on the chest, in the scalp, minimal on the arms General skin exam: no rashes or lesions noted Neuro: Cranial nerves: Yes Equal, round and reactive pupils present Cognition (Neuro): normal cognition Extrem: General: Yes normal to inspection and Yes no pedal edema Results Labs CBC and Chem 7: 09/13/22 22:07 09/13/22 22:07 Labs: Laboratory Results - last 24 hr 09/13/22 09/13/22 09/13/22 22:07 22:07 22:07 MCV 93.0 MCH 30.1 MCHC 32.4 RDW 14.4 Plt Count 129 L MPV 10.9 Immature Gran % (Auto) 0.3 Neut % (Auto) 80.5 H Lymph % (Auto) 9.2 L [place] % (Auto) 1.5 L Eos % (Auto) 8.1 H Baso % (Auto) 0.4 Lymph # (Auto) 0.9 L [place] # (Auto) 0.1 Eos # (Auto) 0.8 H Baso # (Auto) 0.0 Abs Immat Gran (auto) 0.03 Absolute Neuts (auto) 7.6 Absolute Nucleated RBC 0.000 Nucleated RBC % (auto) 0.0 Smear Tech's Comments VERIFIED Anion Gap 18 Estim Creat Clear Calc 33.1 Estimated GFR 36 Random Glucose 183 H Calcium 9.5 D Total Bilirubin 0.6 Direct Bilirubin 0.2 AST 21 ALT 19 Alkaline Phosphatase 85 D Total Protein 7.0 Albumin 4.0 COVID-19 ([facility]HEELA) Negative COVID-19 Clin Com See Note Assessment and Plan (1) Hives: Status: Acute (2) Allergic dermatitis: Status: Acute (3) Periorbital edema: Status: Acute Plan 87-year-old female who presents to the hospital with his acute on chronic cause for the past 3 weeks with per orbital edema # allergic dermatitis - continue Benadryl p.r.n., prednisone - patient appears to have had a bad reaction to IV Solu-Medrol with difficulty breathing and wheezing, avoid IV form of steroids - according to granddaughter responded well to prednisone and past - continue prednisone - monitor - I discussed with granddaughter the patient will need an allergy carbonizer tester for evaluation # dyspnea/wheezing - post IV Solu-Medrol- no difficulty breathing prior to this, no difficulty swallowing, no evidence of respiratory compromise - did not have same reaction to prednisone p.o. - p.r.n. DuoNeb - monitor # periorbital edema - appears to be associated with the hives - no change in vision, no visual compromise - p.r.n. Benadryl, prednisone - patient will require allergy immunology Outpatient DVT prophylaxis: Heparin subQ Quality Stroke Does the patient have a stroke diagnosis?: No VTE Prior VTE?: No VTE Risk Level:: Medical - moderate - high VTE Device Contraindication: Treatment Not Indicated VTE Drug Contraindication: N/A - Med Ordered
--- NOTE | 2022-09-14 01:23 | PC.NURSE ---
Notified provider pt was still having rash and wheezing after medication administration. Provider into assess pt. Breathing treatment given and pt did have some improvement. Granddaughter was at the bedside for most of the evening. Pt is sleeping at this time with no sign distress. Notified RN Maricruz who is assuming care.
--- NOTE | 2022-09-14 03:46 | PC.NURSE ---
Pt. with increasing periorbital swelling noted - Elo Arzola MD notified. When spoke to , she stated to give pt. PRN Rigol re: swelling. Will administer and continue to monitor pt.
[2022-09-14] MEDS: diphenhydrAMINE HCL 25 MG TABLET 12.5 MG PO (03:50)
--- NOTE | 2022-09-14 03:53 | PC.NURSE ---
also wrote for 40mg Prednisone PO. Per provider, give PRN Benadryl, then give the Prednisone appx. 15 minutes later
--- NOTE | 2022-09-14 03:54 | PC.NURSE ---
Pt. medicated with PRN Benadryl per [facility]
[2022-09-14] MEDS: predniSONE 20 MG TABLET 40 MG PO (04:33)
--- NOTE | 2022-09-14 05:21 | PC.NURSE ---
PT GIVEN PAVEL CARE AND PULL UP CHANGED. PT DOES NOT WANT PUREWICK REAPPLIED. WARM BLANKET GIVEN AND CALL [facility]ACED WITHING REACH
[2022-09-14 07:06] LABS: Basophils Percent Auto 0.1 % (0-2); Eosinophils Percent Auto 0.5 % (0-4); Hematocrit 38.6 % (37.0-47.0); Hemoglobin 12.4 g/dl (12.0-16.0); Imm Gran Abs Auto 0.03 X10*3/uL (0.00-0.03); Imm Gran Pct Auto 0.4 % (0.0-0.4); Lymphocytes Absolute Auto 0.5 X10*3/uL (1.2-4.9); Lymphocytes Percent Auto 5.9 % (20-40); MANUAL DIFF FLAG SCAN; Mean Corpuscular HGB Conc 32.1 g/dl (31.0-35.0); Mean Corpuscular Hemoglobin 29.5 pg (27.0-33.0); Mean Corpuscular Volume 91.9 fL (80.0-98.0); Mean Platelet Volume 11.3 fL (9.4-12.3); Monocytes Absolute Auto 0.1 X10*3/uL (0.1-1.2); Monocytes Percent Auto 0.8 % (2-11); Neutrophils Absolute Auto 7.3 x10*3/uL (2.0-8.3); Neutrophils Percent Auto 92.3 % (45-73); Platelet Count 113 X10*3/uL (160-400); Red Cell Distribution Width 14.3 % (11.0-16.0); SCAN SMEAR FLAG 1; White Blood Count 7.9 X10*3/uL (4.8-10.8)
[2022-09-14 07:44] LABS: Anion Gap 19 (12-20); Blood Urea Nitrogen 26 mg/dL (9-16); Calcium 8.8 mg/dL (8.4-10.2); Carbon Dioxide 20 mmol/L (22-29); Chloride 106 mmol/L (96-108); Creatinine Clr Calc Pharmacy 27.5; Estimated Glomerular Filt Rate 29; Glucose Random 472 mg/dL (60-115); Potassium 4.4 mmol/L (3.3-5.1); Sodium 141 mmol/L (135-145)
[2022-09-14 07:56] LABS: SLIDE REVIEW VERIFIED
[2022-09-14] MEDS: Heparin Sodium,Porcine 5,000 UNIT/ML VIAL 5000 UNIT SUBCUT ×2 (09:14→21:03)
[2022-09-14] MEDS: 0.9 % Sodium Chloride Flush 3 ML SYRINGE IVFLUSH ×3 (09:15→23:49)
[2022-09-14] MEDS: Albuterol/Iprat 2.5/0.5MG 3 ML AMPUL.NEB INHALE ×2 (09:26→14:16)
[2022-09-14] MEDS: predniSONE 20 MG TABLET PO (09:58)
--- NOTE | 2022-09-14 10:02 | PHA.MEDREC ---
Pharmacy Consult ? Medication Reconciliation Pharmacy has completed the medication reconciliation. Confirmed medications with patient's grand daughter Elena. Megan Pelaez, JavyD
[2022-09-14] MEDS: Omeprazole 40 MG CAPSULE.DR PO (11:30)
[2022-09-14] MEDS: lisinopriL 20 MG TABLET PO (11:30)
[2022-09-14] MEDS: Montelukast Sodium 10 MG TABLET PO (11:30)
[2022-09-14] MEDS: Mirabegron 50 MG TAB.ER.24H PO (11:30)
[2022-09-14] MEDS: amLODIPine Besylate 5 MG TABLET PO (11:30)
[2022-09-14 13:50] LABS: Anion Gap 17 (12-20); Blood Urea Nitrogen 27 mg/dL (9-16); Calcium 9.2 mg/dL (8.4-10.2); Carbon Dioxide 20 mmol/L (22-29); Chloride 106 mmol/L (96-108); Creatinine Clr Calc Pharmacy 29.8; Estimated Glomerular Filt Rate 32; Glucose Random 344 mg/dL (60-115); Potassium 4.1 mmol/L (3.3-5.1); Sodium 139 mmol/L (135-145)
--- NOTE | 2022-09-14 14:41 | PM.EVENT ---
Event Note Date of Service: 09/14/22 Event Note: Patient feeling better already this morning Continue prednisone and p.r.n. Benadryl DuoNeb nebulizer Monitor creatinine and glucose level as both were high To repeat blood work tomorrow morning
[2022-09-14] MEDS: Memantine HCl 10 MG TABLET PO (21:03)
[2022-09-14] MEDS: FLUoxetine HCl 20 MG CAPSULE 40 MG PO (21:03)
[2022-09-14] MEDS: traZODone HCL 50 MG TABLET PO (21:03)
[2022-09-14] MEDS: Mirtazapine 15 MG TABLET PO (21:03)
[2022-09-14] MEDS: Ascorbic Acid 500 MG TABLET PO (21:03)
[2022-09-15 01:16] VITALS: BP 137/50; PULSE 89; O2SAT 94
[2022-09-15] MEDS: diphenhydrAMINE HCL 25 MG TABLET 12.5 MG PO (02:00)
[2022-09-15] MEDS: Omeprazole 40 MG CAPSULE.DR PO (05:53)
[2022-09-15 06:25] LABS: Hematocrit 36.7 % (37.0-47.0); Mean Corpuscular HGB Conc 32.7 g/dl (31.0-35.0); Mean Corpuscular Hemoglobin 30.4 pg (27.0-33.0); Mean Corpuscular Volume 92.9 fL (80.0-98.0); Mean Platelet Volume 10.9 fL (9.4-12.3); Platelet Count 129 X10*3/uL (160-400); Red Blood Count 3.95 X10*6/uL (4.20-5.50); Red Cell Distribution Width 14.6 % (11.0-16.0)
[2022-09-15 06:40] LABS: Anion Gap 17 (12-20); Blood Urea Nitrogen 30 mg/dL (9-16); Calcium 9.4 mg/dL (8.4-10.2); Carbon Dioxide 22 mmol/L (22-29); Chloride 109 mmol/L (96-108); Creatinine Clr Calc Pharmacy 34.3; Estimated Glomerular Filt Rate 38; Glucose Random 263 mg/dL (60-115); Potassium 4.2 mmol/L (3.3-5.1); Sodium 144 mmol/L (135-145)
[2022-09-15 06:45] VITALS: BP 148/73; PULSE 91; RESP 16; TEMP 36.2; O2SAT 94
--- NOTE | 2022-09-15 07:18 | PC.NURSE ---
up to chair with assistance- chair alarm in place. pt set up for breakfast at this time no distress noted.
[2022-09-15] MEDS: Heparin Sodium,Porcine 5,000 UNIT/ML VIAL 5000 UNIT SUBCUT (08:26)
[2022-09-15] MEDS: Mirabegron 50 MG TAB.ER.24H PO (08:27)
[2022-09-15] MEDS: Ascorbic Acid 500 MG TABLET PO (08:27)
[2022-09-15] MEDS: amLODIPine Besylate 5 MG TABLET PO (08:27)
[2022-09-15] MEDS: Donepezil HCl 10 MG TABLET PO (08:27)
[2022-09-15] MEDS: Furosemide 20 MG TABLET PO (08:27)
[2022-09-15] MEDS: Atorvastatin Calcium 20 MG TABLET PO (08:27)
[2022-09-15] MEDS: predniSONE 20 MG TABLET PO (08:27)
[2022-09-15] MEDS: Montelukast Sodium 10 MG TABLET PO (08:27)
[2022-09-15] MEDS: lisinopriL 20 MG TABLET PO (08:27)
[2022-09-15] MEDS: Memantine HCl 10 MG TABLET PO (08:27)
[2022-09-15] MEDS: Aspirin Enteric Coated 81 MG TABLET.DR PO (08:27)
[2022-09-15] MEDS: 0.9 % Sodium Chloride Flush 3 ML SYRINGE IVFLUSH (08:28)
[2022-09-15 08:59] VITALS: BP 143/73; PULSE 73; RESP 12; TEMP 36.3; O2SAT 94
--- NOTE | 2022-09-15 11:24 | P.DS_ITS ---
DS: Providers Provider Date of Service: 09/15/22 Date of admission: 09/14/22 02:02 Primary care physician: Myah Singh MD DS: Diagnosis Discharge Diagnosis (1) Hives: Status: Acute (2) Allergic dermatitis: Status: Acute (3) Periorbital edema: Status: Acute DS: Summary Hospital Course Hospital Course: Admission note HPI 87-year-old female with past medical history of CKD, CVA, history of dementia, hypertension, cirrhosis of the liver, presents to the hospital brought in by her granddaughter who is her healthcare proxy for evaluation of hives, as well as swelling around her eyes.? Granddaughter appears agitated, I had to bring in an science interpreter as patient does not speak Australian, only Turkmen.? History is obtained with the help of a science interpreter. It appears that for the past 3 weeks to 1 month patient has had hives and significant itchiness around her chest area scalp face as well as arms bilaterally.? According to the granddaughter she had a trial of prednisone which improved her symptoms, once prednisone was stopped, she was given topical hydrocortisone which did not help, she then woke up with swelling around her eyes, itchiness in her face scalp and chest therefore brought into the hospital.? While in the ED patient received a cocktail of Benadryl, Pepcid, as well as Solu-Medrol, and immediately after that she started complaining of shortness of breath and significant wheezing, patient was given breathing treatment which improved her breathing but she continued to have wheezing therefore was decided patient should be admitted for evaluation and monitoring overnight. Hospital course The patient was admitted for evaluation of worsening skin rash, periorbital edema and wheezing with associated dyspnea. Believed all to be a part of allergic reaction/dermatitis. Treated with IV steroids, DuoNeb nebulizers and Benadryl with good response as a wheezes resolved and the patient was breathing comfortably on room. Periorbital edema improved. The rash subsided but did not go away completely as the patient still reporting some itchiness. There is a plan to follow-up with creative art director as outpatient arranged by her PCP. Developed hyperglycemia with usage of steroids with no reported history of diabetes. Kidney function noticed to be higher than her baseline. Improved during the hospital stay back to her baseline around 1.3. will need to be evaluated by a creative art director for further workup and treatment. Continue prednisone tapering dose as prescribed Start famotidine daily Albuterol inhaler as needed for wheezing Time Spent with Patient Time attestation: Total time spent providing and/or coordinating discharge services: Discharge coordination time: Less than 30 minutes Quality: Safe Use of Opioids Does Pt have an Active Cancer Diagnosis on the Problem List?: No Quality: Stroke Does the patient have a stroke diagnosis?: No Physical Exam Vital Signs: Vital Signs: Last Vital Signs Temp 97.3 F 09/15/22 08:59 Pulse 73 09/15/22 08:59 Resp 12 09/15/22 08:59 BP 143/73 H 09/15/22 08:59 Pulse Ox 94 09/15/22 08:59 O2 Del Method 09/15/22 08:59 O2 Flow Rate 2 09/15/22 06:45 BMI result Body Mass Index 34.8 Const: Other: Constitutional : Alert, oriented, not in distress Neck : Normal inspection, Supple Cardiovascular : RRR, no JVP, no lower extremity edema Respiratory : fair bilateral air entry, no crackles, wheezes or rhonchi Gastrointestinal: soft, lax, Normal bowel sounds, Non tender Skin : Warm, Dry, scattered hives, urticarial rash on upper chest wall, scalp and less prominent in upper extremities bilaterally with no scaling or drainage noted. Neurological : Alert & oriented to self and place, No focal deficit DS: Data Data Completed and Pending Completed studies during hospitalization [Text1]: Procedures Introduction of Remdesivir Anti-infective into Peripheral Vein, Percutaneous Approach, [employer] 5 (12/01/21) Labs on day of discharge: Laboratory Results - last 24 hr 09/14/22 09/15/22 09/15/22 12:52 06:17 06:17 WBC 11.0 H RBC 3.95 L Hgb 12.0 Hct 36.7 L MCV 92.9 MCH 30.4 MCHC 32.7 RDW 14.6 Plt Count 129 L MPV 10.9 Absolute Nucleated RBC 0.000 Nucleated RBC % (auto) 0.0 Sodium 139 144 Potassium 4.1 4.2 Chloride 106 109 H Carbon Dioxide 20 L 22 Anion Gap 17 17 BUN 27 H 30 H Creatinine 1.54 H 1.34 Estim Creat Clear Calc 29.8 34.3 Estimated GFR 32 38 Random Glucose 344 H 263 H Calcium 9.2 9.4 Discharge Plan Discharge Patient Disposition: Home, Self-Care Discharge Diagnosis: Allergic reaction, hives, wheezing Referrals: Myah Singh MD [Primary Care Provider] - 1 Week Discharge Medications: New albuterol sulfate 90 mcg/actuation HFA aerosol inhaler 2 puff inhalation Q6H PRN (Reason: shortness of breath or wheezing) Qty: 6.7 2RF prednisone 10 mg tablet See Taper PO DAILY Qty: 33 0RF Taper: Prednisone 30 mg daily for 5 Days and 0 Hour 20 mg daily for 5 Days and 0 Hour 10 mg daily for 5 Days and 0 Hour 5 mg daily for 5 Days and 0 Hour famotidine 40 mg tablet 40 mg PO DAILY Qty: 30 1RF Continued fluoxetine 40 mg capsule 1 cap PO BEDTIME atorvastatin 20 mg tablet 1 tab PO DAILY trazodone 50 mg tablet 1 tab PO BEDTIME cetirizine 5 mg tablet 1 tab PO DAILY donepezil 10 mg tablet 1 tab PO DAILY lisinopril 20 mg tablet 1 tab PO DAILY amlodipine 5 mg tablet 1 tab PO DAILY calcium carbonate-vitamin D3 [Calcium 600 + D(3)] 600 mg-5 mcg (200 unit) tablet 1 tab PO BID omeprazole 40 mg capsule,delayed release(DR/EC) 1 cap PO DAILY aspirin 81 mg tablet,delayed release (DR/EC) 1 tab PO DAILY ascorbic acid (vitamin C) [Vitamin C] 500 mg tablet 1 tab PO BID montelukast 10 mg tablet 1 tab PO DAILY furosemide 20 mg tablet 1 tab PO DAILY mirtazapine 15 mg tablet 1 tab PO BEDTIME ferrous sulfate 325 mg (65 mg iron) tablet,delayed release (DR/EC) 1 tab PO BID fluticasone propionate 50 mcg/actuation spray,suspension 1 spray intranasal DAILY PRN (Reason: Allergy Symptoms) memantine 10 mg tablet 1 tab PO BID Myrbetriq 50 mg tablet extended release 24 hr 1 tab PO DAILY hydrocortisone 1 % lotion 1 appl topical DAILY hydrocortisone 1 % cream 1 appl topical DAILY Discharge Orders: Discharge Order (Routine); Ordered 09/15/22 Ordered By: Wei Dennis Diet: Advance to usual diet Activity on Discharge: As tolerated Stand Alone Forms: Patient Portal Discharge page Care Plan Goals: Read below Health Concerns: Read below Plan of Treatment: Read below Assessment: You were admitted to the hospital for evaluation of difficulty breathing and skin rash. Treated as allergic reaction with IV steroids, nebulizer and Benadryl with fair response over the course of hospital stay as the itching and rash decreased. You will need to be evaluated by a creative art director for further workup and treatment. Continue prednisone tapering dose as prescribed Start famotidine daily Albuterol inhaler as needed for wheezing
== END 2022-09-15 12:16 | disposition home or self-care (01) ==
LOC: HO.ED 09-14 00:16 → HO.EDOVER 09-14 02:17
PROVIDERS: Admitting Provider Internal Medicine; Emergency Provider Emergency Medicine; PCP Family Medicine; Visit Provider Student in an Organized Health Care Education/Training Program
DX: L23.9 Allergic contact dermatitis, unspecified cause (principal); L50.9 Urticaria, unspecified; R60.0 Localized edema; R06.2 Wheezing; Z20.822 Contact with and (suspected) exposure to COVID-19; I12.9 Hypertensive chronic kidney disease with stage 1 through stage 4 chronic kidney disease, or unspecified chronic kidney disease; N18.9 Chronic kidney disease, unspecified; F03.90 Unspecified dementia, unspecified severity, without behavioral disturbance, psychotic disturbance, mood disturbance, and anxiety; Z79.82 Long term (current) use of aspirin; Z79.02 Long term (current) use of antithrombotics/antiplatelets; Z79.899 Other long term (current) drug therapy
CPT/HCPCS: 36415; 80048; 80076; 85025; 85027; 87635; 94640; 96372; 96374; 96375; 96376; 99218; 99285; J1200; J2930; Q0163

== ENCOUNTER → 2022-10-14 10:10 | Outpatient (REF) | payer OTHER, SELFPAY ==
--- NOTE | 2022-10-14 10:13 | CA_ITS ---
Transthoracic Echocardiogram Patient (Last, First, Middle): Sienna Mendez H Gender: Female Date of : 1935 Age: 87 Procedure Date: 10/14/2022 Procedure Type: Transthoracic Echocardiogram Location: OP Height: 160.02 cm Weight: 90.72 kg BSA: 1.93 m2 Heart Rate: bpm BP: 115 / 64 mmHg Manager Line: TO Referring MD: Myah Singh MD Medical Social Worker: Juan Carlos Melara MD Symptoms: R01.1 CA MURMUR Study Quality: Technically Difficult ECG Rhythm: Sinus Conclusions: - 1. Technically limited study as patient would not stay stable 2. On multiple different views LV systolic function appears to be normal with LVEF of 60 65% with impaired relaxation filling pattern 3. At least moderate aortic stenosis Findings Procedure Information The quality of the study was technically difficult. Left Ventricle Normal left ventricular size, thickness, and systolic function. The visually estimated ejection fraction is between 60-65%. Spectral Doppler is indicative of an impaired relaxation filling pattern. Right Ventricle The right ventricle was not well visualized. Atria The left atrium is normal in size. Interatrial shunt cannot be excluded. The right atrium was not well visualized. Aortic Valve The aortic valve was not well visualized. There is mild calcification of the aortic valve. There is moderate aortic valve stenosis. The peak aortic gradient is 33 mmHg.The mean gradient is 16 mmHg. There is mild aortic valve regurgitation. Mitral Valve The mitral valve was not well visualized. There is trace mitral valve regurgitation. There is no mitral valve stenosis. Pulmonic Valve The pulmonic valve was not well visualized. Tricuspid Valve The tricuspid valve was not well visualized. Great Vessels The aorta was not well visualized. The pulmonary artery was not well visualized. Venous The inferior vena cava is normal in size. Pericardium/Pleural The pericardium was not well visualized. Prior Study Comparison Changes noted compared to prior study dated: 12/21/2017. Aortic stenosis is noted on this study Measurements 2D Linear Measurements IVSd: 1.14 0.6-0.9/0.6-1.0 cm LVIDd: 3.71 3.9-5.3/4.2-5.9 cm LVIDd Index: 1.92 2.4-3.2/2.2-3.1 cm/m2 LVIDs: 2.49 2.0-3.6 cm LVPWd: 0.90 0.7-1.1 cm LV Mass: 144.50 67-162/88-224 g LV Mass Index: 74.87 43-95/49-115 g/m2 LVOT Diam: 2.00 3.0+(-)1.3 cm 2D Systolic Function EF 4C: 65.00 >55% EF 2C: 62.60 >55% EF BiP: 63.40 >55% Mitral Valve MV VTI: 0.33 MV Pk Antonio: 1.10 MV Mn Antonio: 0.60 MV Pk Grad: 5.00 MV Mn Grad: 2.00 MV Pk E: 0.81 MV PK A: 0.83 MV Decel Time: 260.00 E/A: 1.00 E'Lateral: 5.11 E'Medial: 3.48 E/E' Med: 23.10 E/E' Lat: 15.80 PHT: 76.00 MVA PHT: 2.89 MVA Continuity: 1.95 Decel [place]: 3.09 Aortic Valve AoV Pk Antonio: 2.89 AoV Mn Antonio: 1.83 AoV VTI: 0.53 AoV Pk Grad: 33.00 Aov Mn Grad: 16.00 MANASA Cont.VTI: 1.21 LVOT LVOT Pk Antonio: 0.95 LVOT Mn Antonio: 0.65 LVOT VTI: 0.20 LVOT Pk Grad: 4.00 LVOT Mn Grad: 2.00 LVOT Diam: 2.00 LVOT Area: 3.14 Diastolic Function MV Pk E: 0.81 MV Pk A: 0.83 E/A: 1.00 E'Medial: 3.48 E/E' Med: 23.10 E' Laterial: 5.11 E/E' Lat: 15.80 Right Ventricle TVS' Antonio: 10.30 Great Vessels Aorta Sinus of Valsalva: 3.54 2.0-3.5 cm Ao Asc: 2.70 2.1-3.4 cm Updated in Other Vendor System with Status of Final Juan Carlos Melara MD electronically signed on 10/15/2022 1:32:54 PM with status of Final
== END ==
LOC: HO.CARD 10:10
PROVIDERS: PCP Family Medicine; Visit Provider Family Medicine
DX: R01.1 Cardiac murmur, unspecified (principal)
CPT/HCPCS: 93306

== ENCOUNTER 2022-10-25 08:02 | Outpatient (REF) | payer OTHER, SELFPAY ==
--- NOTE | ~2022-10-25 | US_ITS ---
EXAMINATION: US ABDOMEN COMPLETE CLINICAL INFORMATION: Fatty liver. COMPARISON: CT abdomen pelvis 09/26/2021. TECHNIQUE: Real-time imaging of the abdominal viscera. FINDINGS: Limited examination secondary to patient body habitus and motion. PANCREAS: Normal. ABDOMINAL AORTA: The proximal, mid, and distal segments are normal in caliber. INFERIOR VENA CAVA: Visualized portions are normal. LIVER: Heterogeneous liver parenchyma with a nodular contour. No focal hepatic lesion. There is no intrahepatic biliary duct dilatation seen. GALLBLADDER: Surgically absent. COMMON BILE DUCT: Normal in caliber measuring 0.5 cm in diameter. RIGHT KIDNEY: Nonobstructive 2.7 cm upper pole calculus. No hydronephrosis or focal parenchymal lesions. The kidney measures 9.2 cm in maximum dimension. LEFT KIDNEY: Simple cysts for which no imaging follow-up is recommended largest measuring 4 cm in the lower pole. No hydronephrosis or renal calculi. The kidney measures 9.9 cm in maximum dimension. SPLEEN: Small splenule noted measuring 1 cm, also visualized on prior CT chest from 12/01/2021. The spleen measures 8.8 cm in maximum dimension. FREE FLUID: None. US/US abdomen complete IMPRESSION: 1. Limited examination secondary to patient body habitus and motion. 2. Heterogeneous liver parenchyma with a nodular contour suggesting cirrhosis. 3. Nonobstructive 2.7 cm calculus in the upper pole of the right kidney. 4. Simple left renal cysts for which no imaging follow-up is recommended.
== END 2022-10-25 08:03 | disposition home or self-care (01) ==
LOC: HO.US 08:02
PROVIDERS: Visit Provider Family Medicine
DX: K76.0 Fatty (change of) liver, not elsewhere classified (principal)
CPT/HCPCS: 76700

== ENCOUNTER → 2023-01-23 14:49 | Outpatient (BNVA) | payer OTHER, SELFPAY | PROVIDERS: PCP Family Medicine; Referring Provider Family Medicine; Visit Provider Internal Medicine | DX: I35.0 Nonrheumatic aortic (valve) stenosis (principal); F03.90 Unspecified dementia, unspecified severity, without behavioral disturbance, psychotic disturbance, mood disturbance, and anxiety | CPT/HCPCS: 99202 ==

== ENCOUNTER → 2023-05-24 14:30 | Outpatient (BNVA) | payer OTHER, SELFPAY | PROVIDERS: PCP Family Medicine; Visit Provider Nurse Practitioner Family | DX: G47.33 Obstructive sleep apnea (adult) (pediatric) (principal); G47.19 Other hypersomnia | CPT/HCPCS: 99202 ==

== ENCOUNTER → 2023-06-18 19:30 | Outpatient (REF) | payer OTHER, SELFPAY | LOC: HO.SL 19:30 | PROVIDERS: PCP Family Medicine; Visit Provider Nurse Practitioner Family | DX: F03.90 Unspecified dementia, unspecified severity, without behavioral disturbance, psychotic disturbance, mood disturbance, and anxiety (principal); G47.19 Other hypersomnia; G47.33 Obstructive sleep apnea (adult) (pediatric); I10 Essential (primary) hypertension; I35.0 Nonrheumatic aortic (valve) stenosis; Z86.73 Personal history of transient ischemic attack (TIA), and cerebral infarction without residual deficits | CPT/HCPCS: 95810 ==

== ENCOUNTER → 2023-06-18 23:38 | Outpatient (BNV) | payer OTHER, SELFPAY | PROVIDERS: PCP Family Medicine; Visit Provider Psychiatry & Neurology Neurology | DX: G47.33 Obstructive sleep apnea (adult) (pediatric) (principal) | CPT/HCPCS: 95810 ==

== ENCOUNTER → 2023-07-10 15:35 | Outpatient (REF) | payer OTHER, SELFPAY ==
--- NOTE | 2023-07-10 15:39 | CA_ITS ---
Transthoracic Echocardiogram Patient (Last, First, Middle): Sienna Mendez H Gender: Female Date of : 1935 Age: 88 Procedure Date: 07/10/2023 Procedure Type: Transthoracic Echocardiogram Location: OP Height: 157.48 cm Weight: 86.18 kg BSA: 1.87 m2 Heart Rate: bpm BP: 118 / 56 mmHg Online Marketing Manager: Referring MD: Richardson Garcia MD Supervisor Photoengraving: Juan Carlos Melara MD Symptoms: I35.0 - Nonrheumatic aortic (valve) stenosis Study Quality: Fair ECG Rhythm: Sinus Conclusions: - 1. Normal LV ejection fraction 55-60% with mild LVH with impaired relaxation filling pattern and elevated filling pressures 2. Mildly dilated left atrium 3. Moderate aortic stenosis 4. Normal RV systolic pressure 5. No pericardial effusion Findings Left Ventricle Normal left ventricular size and systolic function. There is mildly increased left ventricular wall thickness. The visually estimated ejection fraction is between 55-60%. Spectral Doppler is indicative of an impaired relaxation filling pattern. Elevated filling pressures. E/E prime ratio is >15, consistent with elevated filling pressures. Right Ventricle Normal right ventricular cavity size and systolic function. Atria The left atrium is mildly dilated. There is lipomatous hypertrophy of the interatrial septum. There is no evidence of interatrial shunt. The right atrium is normal in size. Aortic Valve The aortic valve was not well visualized. There is mild calcification of the aortic valve. There is moderate aortic valve stenosis. The peak aortic gradient is 31 mmHg.The mean gradient is 14 mmHg. The aortic valve area is 1.15 cm2. There is mild aortic valve regurgitation. Mitral Valve There is mild anterior mitral leaflet thickening. There is mild mitral annular calcification. There is trace mitral valve regurgitation. There is no mitral valve stenosis. Pulmonic Valve The pulmonic valve was not well visualized. Tricuspid Valve Likely normal tricuspid valve structure and function. There is trace tricuspid valve regurgitation. The right ventricular systolic pressure is normal. The right ventricular systolic pressure is 18 mmHg. Normal right atrial pressure. Great Vessels The pulmonary artery was not well visualized. There is no dilatation of the ascending aorta measuring 3.20 cm. Venous The inferior vena cava is normal in size and collapses greater than 50% with inspiration. Pericardium/Pleural There is no evidence of pericardial effusion. Measurements 2D Linear Measurements IVSd: 1.36 0.6-0.9/0.6-1.0 cm LVIDd: 3.82 3.9-5.3/4.2-5.9 cm LVIDd Index: 2.04 2.4-3.2/2.2-3.1 cm/m2 LVIDs: 2.83 2.0-3.6 cm LVPWd: 1.31 0.7-1.1 cm Ao Root: 3.30 2.1-3.5 cm LA Diam: 2.20 2.7-3.8/3.0-4.0 cm LAIDs Index: 1.18 1.5-2.3 cm/m2 LV Mass: 226.32 67-162/88-224 g LV Mass Index: 121.03 43-95/49-115 g/m2 LVOT Diam: 2.00 3.0+(-)1.3 cm Mitral Valve MV Pk E: 0.79 MV PK A: 0.90 MV Decel Time: 230.00 E/A: 0.90 E'Lateral: 4.35 E'Medial: 4.46 E/E' Med: 17.80 E/E' Lat: 18.20 PHT: 67.00 MVA PHT: 3.28 Decel [place]: 3.44 Aortic Valve AoV Pk Antonio: 2.77 AoV Mn Antonio: 1.71 AoV VTI: 0.63 AoV Pk Grad: 31.00 Aov Mn Grad: 14.00 MANASA Cont.VTI: 1.15 LVOT LVOT Pk Antonio: 0.90 LVOT Mn Antonio: 0.60 LVOT VTI: 0.23 LVOT Pk Grad: 3.00 LVOT Mn Grad: 2.00 LVOT Diam: 2.00 LVOT Area: 3.14 Diastolic Function MV Pk E: 0.79 MV Pk A: 0.90 E/A: 0.90 E'Medial: 4.46 E/E' Med: 17.80 E' Laterial: 4.35 E/E' Lat: 18.20 Right Ventricle TAPSE (mm): 17.00 TVS' Antonio: 9.00 Tricuspid Valve TR Pk Antonio: 1.96 TR Pk Grad: 15.00 RA Press: 3.00 RVSP: 18.00 Great Vessels Aorta Ao Root-2D: 3.30 2.0-3.7 cm Ao Asc: 3.20 2.1-3.4 cm Pulmonary Valve PV Pk Antonio: 0.94 Peak PV Grad: 4.00 Updated in Other Vendor System with Status of Final Juan Carlos Melara MD electronically signed on 07/11/2023 12:41:01 PM with status of Final
== END ==
LOC: HO.CARD 15:35
PROVIDERS: PCP Family Medicine; Visit Provider Internal Medicine
DX: I35.0 Nonrheumatic aortic (valve) stenosis (principal)
CPT/HCPCS: 93306

== ENCOUNTER → 2023-07-10 15:39 | Outpatient (BNV) | payer OTHER, SELFPAY | PROVIDERS: PCP Family Medicine; Visit Provider Internal Medicine Cardiovascular Disease | DX: I35.0 Nonrheumatic aortic (valve) stenosis (principal) | CPT/HCPCS: 93306 ==

== ENCOUNTER 2023-07-27 10:17 | Outpatient (AMB) | payer OTHER, SELFPAY ==
--- NOTE | 2023-07-27 10:19 | MHC.OFFVIS ---
Intake Vital Signs 07/27/23 10:21 Height 5 ft 3 in BMI Reason not done Patient refused/unable BP 116/56 L Blood Pressure Location Rt brachial Position Sitting Pulse 81 Intake Visit Reasons: 6 month f/u after echo Intake Note: 6 month follow up Research Biologist Required: No Accompanied by: granddaughter Allergies ceftazidime [Ceftazidime] Allergy (Mild, Verified 07/27/23 10:23) UNKNOWN benzocaine [Benzocaine] Allergy (Unknown, Verified 07/27/23 10:23) UNKNOWN butamben [From Cetacaine] Allergy (Unknown, Verified 07/27/23 10:23) UNKNOWN metoclopramide [From Reglan] Allergy (Unknown, Verified 07/27/23 10:23) UNKNOWN morphine [Morphine] Allergy (Unknown, Verified 07/27/23 10:23) SWELLING tetracaine [From Cetacaine] Allergy (Unknown, Verified 07/27/23 10:23) UNKNOWN Medication List - Last Reconciled 07/27/23 by Richardson Garcia MD albuterol sulfate 90 mcg/actuation 2 puffs inhalation Q6H PRN albuterol sulfate 90 mcg/actuation (Ventolin HFA) 2 puffs inhalation Q4-6H PRN amlodipine 5 mg PO DAILY ascorbic acid (vitamin C) (Vitamin C) 1 tab PO BID aspirin 81 mg PO DAILY atorvastatin 20 mg PO DAILY calcium carbonate-vitamin D3 600 mg-5 mcg (200 unit) (Calcium 600 + D(3)) 1 tab PO BID cetirizine 5 mg PO DAILY clotrimazole-betamethasone 1-0.05 % 1 appl topical BID docusate sodium 100 mg PO BID donepezil 10 mg PO DAILY empagliflozin (Jardiance) 10 mg PO DAILY ferrous sulfate 1 tab PO BID fluoxetine 40 mg PO BEDTIME fluticasone propionate 50 mcg/actuation 1 spray intranasal DAILY PRN furosemide 20 mg PO DAILY haloperidol lactate 1 mg PO DAILY hydrocortisone 1% 1 appl topical DAILY hydrocortisone 1% 1 appl topical DAILY lisinopril 20 mg PO DAILY memantine 10 mg PO BID mirabegron ER (Myrbetriq) 50 mg PO DAILY mirtazapine 1 tab PO BEDTIME montelukast 10 mg PO DAILY omeprazole 40 mg PO DAILY trazodone 50 mg PO BEDTIME HPI HPI Comments History of Present Illness Details Sienna returns for follow-up. In the past, she has been seen regarding aortic stenosis. Patient herself has no clear symptoms and does not say much. She also has dementia. Patient is accompanied by her PCP as well as granddaughter who is actually helping with translation. She signed the appropriate form. Multiple prior comorbidities including cirrhosis, chronic kidney disease, strokes among others. Not much of activity at baseline. She is sitting in a wheelchair. [facility] Medical History (Updated 05/24/23 @ 15:27 by Lux Lee CNP) Allergic dermatitis Cirrhosis of liver CKD (chronic kidney disease) CVA (cerebral vascular accident) Dementia Diabetes Hives Hypertension Non-alcoholic micronodular cirrhosis of liver DONAVAN (obstructive sleep apnea) Surgical History Hx of cholecystectomy No pertinent past surgical history Family History Father No problems noted. Mother No problems noted. Social History Household Members: Children Housing: Apartment Do you presently have visiting nurse or other home services: No Alcohol intake: current Alcohol intake frequency: does not drink Patient Tobacco Use Status: Former Tobacco user Review of Systems Const Denies weakness ENT Denies dizziness Card Denies chest pain, Denies chest pain with activity, Denies syncope, Denies rapid heart rate, Denies pedal edema, Denies edema, Denies leg edema, Denies lightheadedness, Denies palpitations, Denies dyspnea, Denies dyspnea on exertion and Denies orthopnea Resp Denies cough, Denies dyspnea and Denies dyspnea on exertion GI Denies hematochezia and Denies change in stool character Musc Denies abnormal gait, Denies muscle cramps, Denies muscle weakness, Denies numbness, Denies radiating pain into limb and Denies tingling Neuro Denies abnormal gait, Denies dizziness, Denies syncope, Denies numbness, Denies tingling and Denies weakness Endo Denies palpitations Physical Exam Vital Signs: Last Vital Signs Pulse 81 07/27/23 10:21 BP 116/56 L 07/27/23 10:21 Const General: comfortable and no acute distress Orientation/consciousness: patient oriented x3 HEENT Other: Unremarkable Head: Yes normal to inspection Neck Neck: Yes normal visual inspection Chest Chest palpation & inspection: normal inspection of the chest Resp Other: Few basal crackles Cardio Palpation: normal PMI Heart sounds: S1 normal heart sound present, S2 normal heart sound present, no gallops, Murmur heart sound present systolic III/ and at the right sternal border and no rubs GI Palpation (GI): Soft to palpation Back/Spine/Pelvis Other: unremarkable Skin General skin exam: no rashes or lesions noted Neuro General: patient oriented x3 Extrem General: Yes normal to inspection Psych Mental Status: mental status grossly normal Assessment & Plan Assessment & Plan (1) Non-rheumatic aortic stenosis: Code(s): I35.0 - Nonrheumatic aortic (valve) stenosis (2) Dementia: Code(s): F03.90 - Unspecified dementia, unspecified severity, without behavioral disturbance, psychotic disturbance, mood disturbance, and anxiety Plan In the most recent echocardiogram, peak gradient across aortic valve was 31 mm Hg with a mean of 14 mm Hg. Calculated valve area of 1.1 sq cm. There is mild aortic regurgitation. LVEF is preserved at 55-60%. Based on this, aortic stenosis does not appear hemodynamically significant at this time. Overall, she has significant comorbidities including dementia, cirrhosis among others. Hence, even if the aortic stenosis progressed to severe, she would not be a candidate for any invasive treatments. Discussed with granddaughter who came for appointment. DUMP TRUCK DRIVER was also present. We will recheck in a year. Otherwise, advised granddaughter to call us with ongoing concerns. Coding Level of Care Code Est Pt Level 4 (31654) Diagnoses Non-rheumatic aortic stenosis I35.0 Dementia F03.90
[2023-07-27 10:21] VITALS: BP 116/56; PULSE 81
== END 2023-07-27 10:39 | disposition home or self-care (01) ==
PROVIDERS: PCP Family Medicine; Referring Provider Family Medicine; Visit Provider Internal Medicine
DX: I35.0 Nonrheumatic aortic (valve) stenosis (principal); F03.90 Unspecified dementia, unspecified severity, without behavioral disturbance, psychotic disturbance, mood disturbance, and anxiety
CPT/HCPCS: 99214

== ENCOUNTER → 2023-07-27 10:17 | Outpatient (BNVA) | payer OTHER, SELFPAY | PROVIDERS: PCP Family Medicine; Referring Provider Family Medicine; Visit Provider Internal Medicine | DX: I35.0 Nonrheumatic aortic (valve) stenosis (principal); F03.90 Unspecified dementia, unspecified severity, without behavioral disturbance, psychotic disturbance, mood disturbance, and anxiety | CPT/HCPCS: 99212 ==

== ENCOUNTER 2023-09-27 14:58 | Outpatient (AMB) | payer OTHER, SELFPAY ==
--- NOTE | 2023-09-27 15:15 | A.OFFVIS_ITS ---
Intake Vital Signs 09/27/23 15:19 Height 5 ft 3 in Weight 182 lb BMI 32.2 BP 110/72 Blood Pressure Location Rt brachial Position Sitting Pulse 68 Pulse Source Pulse Oximeter Pulse Oximetry (%) 96 Oxygen Delivery Method Room Air Intake Visit Reasons: 4m f/up DONAVAN - conf with grand-dtr Intake Note: Patient presents for DONAVAN. Patient states she just got her cpap machine they gave her a nasal part does better with the full face. Allergies ceftazidime [Ceftazidime] Allergy (Mild, Verified 09/27/23 15:20) UNKNOWN benzocaine [Benzocaine] Allergy (Unknown, Verified 09/27/23 15:20) UNKNOWN butamben [From Cetacaine] Allergy (Unknown, Verified 09/27/23 15:20) UNKNOWN metoclopramide [From Reglan] Allergy (Unknown, Verified 09/27/23 15:20) UNKNOWN morphine [Morphine] Allergy (Unknown, Verified 09/27/23 15:20) SWELLING tetracaine [From Cetacaine] Allergy (Unknown, Verified 09/27/23 15:20) UNKNOWN HPI HPI Comments History of Present Illness Details 88 y/o female patient presents for follo w up of sleep study. Pt underwent for split night sleep study. The baseline portion of the study was significant for a severe degree of sleep apnea. AHI was 35/hr and oxygen don was 85%. REM sleep was not recorded at baseline which may underestimated the severity of her sleep apnea. Pt underwent titration study and her breathing and oxygenation was stablixed at CPAP [id number]. Pt started CPAP at [id number] about a week ago. The CPAP compliance and therapy response reviewed. The usage days 5 days and the average usage hours 2 hrs 20 min. The AHI was 15.6/hr, and the apnea index was central 0.1 and obstructive 10.8. Pt reports she does not sleep well with the mask, it is uncomfortable. [facility] Medical History (Updated 10/22/23 @ 17:46 by Lux Lee CNP) Cirrhosis of liver DONAVAN (obstructive sleep apnea) Diabetes Allergic dermatitis Hives CVA (cerebral vascular accident) Non-alcoholic micronodular cirrhosis of liver CKD (chronic kidney disease) Dementia Hypertension Surgical History Hx of cholecystectomy No pertinent past surgical history Family History Father No problems noted. Mother No problems noted. Household Members: Children Housing: Apartment Do you presently have visiting nurse or other home services: No Alcohol intake: current Alcohol intake frequency: does not drink Patient Tobacco Use Status: Former Tobacco user Review of Systems Const All systems reviewed & are unremarkable except as noted in HPI and below ENT Reports Normal hearing present Neuro Reports Normal hearing present Physical Exam Vital Signs: Last Vital Signs Pulse 68 09/27/23 15:19 BP 110/72 09/27/23 15:19 Pulse Ox 96 09/27/23 15:19 Oxygen Delivery Method Room Air 09/27/23 15:19 BMI result Body Mass Index 32.2 Const General: cooperative and tired appearing Nutritional Appearance: obese Orientation/consciousness: oriented to person Limitations: wheelchair Neck Neck: Yes full ROM and Yes supple Resp Effort & Inspection: normal respiratory effort and able to speak in complete sentences Neuro General: oriented to person and Unable to assess gait Cranial nerves: Yes Bilaterally intact EOM present, Yes Normal facial strength present, Yes Symmetric palate elevation present, Yes Normal hearing present, Yes Ability to bilaterally rotate head present and Yes Ability to bilaterally elevate shoulders present Cognition (Neuro): normal cognition Gait exam (Neuro): Unable to assess gait Motor exam (neuro): 5/5 motor strength present throughout, Pronator motor function not present and no tremor noted Psych Appearance: grossly normal Affect: normal affect Attitude: cooperative Assessment & Plan Assessment & Plan (1) DONAVAN on CPAP: Comment: Severe degree of sleep apnea. The AHI was 35/hr, oxygen don was 85%. REM was not recorded. Code(s): G47.33 - Obstructive sleep apnea (adult) (pediatric) Plan Advised patient to try to use CPAP while she is resting. Stressed compliance, use CPAP nightly and more than 4 hrs. Will consider to change the pressure at the next visit. Coding Level of Care Code Est Pt Level 3 (05371) Diagnoses DONAVAN on CPAP G47.33
[2023-09-27 15:19] VITALS: BP 110/72; PULSE 68; O2SAT 96; BMI 32.2
== END 2023-09-27 15:40 | disposition home or self-care (01) ==
PROVIDERS: PCP Family Medicine; Visit Provider Nurse Practitioner Family
DX: G47.33 Obstructive sleep apnea (adult) (pediatric) (principal)
CPT/HCPCS: 99213

== ENCOUNTER → 2023-09-27 14:58 | Outpatient (BNVA) | payer OTHER, SELFPAY | PROVIDERS: PCP Family Medicine; Visit Provider Nurse Practitioner Family | DX: G47.33 Obstructive sleep apnea (adult) (pediatric) (principal) | CPT/HCPCS: 99212 ==

== ENCOUNTER 2024-01-22 12:10 | Outpatient (REF) | payer OTHER, SELFPAY ==
[2024-01-22 13:17] LABS: MANUAL DIFF FLAG NO
[2024-01-22 13:21] LABS: Basophils Percent Auto 0.5 % (0-2); Eosinophils Absolute Auto 0.7 X10*3/uL (0.0-0.4); Eosinophils Percent Auto 8.2 % (0-4); Hematocrit 49.1 % (37.0-47.0); Hemoglobin 16.1 g/dl (12.0-16.0); Imm Gran Abs Auto 0.03 X10*3/uL (0.00-0.03); Imm Gran Pct Auto 0.4 % (0.0-0.4); Lymphocytes Absolute Auto 1.1 X10*3/uL (1.2-4.9); Lymphocytes Percent Auto 12.9 % (20-40); Mean Corpuscular HGB Conc 32.8 g/dl (31.0-35.0); Mean Corpuscular Volume 91.6 fL (80.0-98.0); Mean Platelet Volume 11.4 fL (9.4-12.3); Monocytes Absolute Auto 0.5 X10*3/uL (0.1-1.2); Monocytes Percent Auto 6.2 % (2-11); Neutrophils Absolute Auto 5.9 x10*3/uL (2.0-8.3); Neutrophils Percent Auto 71.8 % (45-73); Platelet Count 149 X10*3/uL (160-400); Red Blood Count 5.36 X10*6/uL (4.20-5.50); White Blood Count 8.2 X10*3/uL (4.8-10.8)
[2024-01-22 13:34] LABS: Prothrombin Time 11.7 SEC (11.1-13.3)
[2024-01-22 13:41] LABS: Alanine Aminotransferase 24 U/L (0-31); Albumin Level 3.8 g/dL (3.5-5.0); Alkaline Phosphatase 84 U/L (39-117); Anion Gap 13 (12-20); Aspartate Amino Transferase 24 U/L (5-31); Bilirubin Total 0.4 mg/dL (0.0-1.0); Blood Urea Nitrogen 22 mg/dL (9-16); Calcium 10.4 mg/dL (8.4-10.2); Carbon Dioxide 25 mmol/L (22-29); Chloride 110 mmol/L (96-108); Cholesterol 109 mg/dL (<200); Estimated Glomerular Filt Rate 44; Glucose Random 148 mg/dL (60-115); HDL Cholesterol 42 mg/dL (>40); LDL Cholesterol Calculated 41 mg/dL (<100); Potassium 3.3 mmol/L (3.3-5.1); Sodium 145 mmol/L (135-145); Total Protein 7.7 g/dL (6.5-8.0); Triglycerides 130 mg/dL (<150)
[2024-01-22 13:56] LABS: TSH reflex Free T4 1.16 uIU/mL (0.32-4.0)
[2024-01-22 14:02] LABS: Folate 10.6 ng/mL (> or = 4.0); Vitamin B12 314 pg/mL (200-900)
[2024-01-22 14:12] LABS: Reflex LDLD? No
[2024-01-23 08:11] LABS: Hepatitis A Antibody IgG REACTIVE (Nonreactive); ~Hepatitis A Antibody IgG 11.45 S/CO (0.00-0.99)
[2024-01-23 08:16] LABS: HBS Num1 87.33 mIU/mL (0-7.99); ~Hepatitis B Surface Antibody REACTIVE (Nonreactive)
== END 2024-01-22 12:11 | disposition home or self-care (01) ==
LOC: HO.HHCL 12:10
PROVIDERS: Visit Provider Family Medicine
DX: K74.60 Unspecified cirrhosis of liver (principal); I12.9 Hypertensive chronic kidney disease with stage 1 through stage 4 chronic kidney disease, or unspecified chronic kidney disease; E11.22 Type 2 diabetes mellitus with diabetic chronic kidney disease; N18.30 Chronic kidney disease, stage 3 unspecified; E78.5 Hyperlipidemia, unspecified
CPT/HCPCS: 36415; 80053; 80061; 82607; 82746; 84443; 85025; 85610; 86706; 86708

== ENCOUNTER 2024-01-24 11:03 | Outpatient (REF) | payer OTHER, SELFPAY ==
[2024-01-24 14:31] LABS: Creatinine Urine 182.06 mg/dL; Microalbum/Creatinine Ratio Ur 7.6 ug/mg cr (<30)
== END 2024-01-24 11:04 | disposition home or self-care (01) ==
LOC: HO.HHCL 11:03
PROVIDERS: Visit Provider Family Medicine
DX: E11.22 Type 2 diabetes mellitus with diabetic chronic kidney disease (principal); N18.30 Chronic kidney disease, stage 3 unspecified
CPT/HCPCS: 82043; 82570

== ENCOUNTER 2024-01-30 15:18 | Outpatient (AMB) | payer OTHER, SELFPAY ==
--- NOTE | 2024-01-30 15:34 | MHC.OFFVIS ---
Intake Vital Signs 01/30/24 15:47 Height 5 ft 3 in BP 112/70 Blood Pressure Location Rt brachial Position Sitting Pulse 80 Pulse Source Pulse Oximeter Pulse Oximetry (%) 94 Oxygen Delivery Method Room Air Intake Visit Reasons: Follow up - CONF w/address Intake Note: Patient presents for f/u. Mask is to big for her Allergies ceftazidime [Ceftazidime] Allergy (Mild, Verified 01/30/24 15:41) UNKNOWN benzocaine [Benzocaine] Allergy (Unknown, Verified 01/30/24 15:41) UNKNOWN butamben [From Cetacaine] Allergy (Unknown, Verified 01/30/24 15:41) UNKNOWN metoclopramide [From Reglan] Allergy (Unknown, Verified 01/30/24 15:41) UNKNOWN morphine [Morphine] Allergy (Unknown, Verified 01/30/24 15:41) SWELLING tetracaine [From Cetacaine] Allergy (Unknown, Verified 01/30/24 15:41) UNKNOWN HPI HPI Comments History of Present Illness Details 88 y/o female patient presents for follow up of DONAVAN on CPAP. Pt's daughter reports that patient tried new CPAP mask, full face mask, but it was off in the morning, and has difficulty put it back on. However, the compliance reports shows patient did not use it at all. Pt underwent for split night sleep study. The baseline portion of the study was significant for a severe degree of sleep apnea. AHI was 35/hr and oxygen don was 85%. REM sleep was not recorded at baseline which may underestimated the severity of her sleep apnea. Pt underwent titration study and her breathing and oxygenation was stablixed at CPAP [id number]. Pt started CPAP at [id number] about a week ago. The CPAP compliance and therapy response reviewed. The usage days 5 days and the average usage hours 2 hrs 20 min. The AHI was 15.6/hr, and the apnea index was central 0.1 and obstructive 10.8. [facility], [facility] Medical History (Updated 10/22/23 @ 17:46 by Lux Lee CNP) Cirrhosis of liver DONAVAN (obstructive sleep apnea) Diabetes Allergic dermatitis Hives CVA (cerebral vascular accident) Non-alcoholic micronodular cirrhosis of liver CKD (chronic kidney disease) Dementia Hypertension Surgical History Hx of cholecystectomy No pertinent past surgical history Family History Father No problems noted. Mother No problems noted. Social History Housing: Apartment Do you presently have visiting nurse or other home services: No Alcohol intake: current Alcohol intake frequency: does not drink Patient Tobacco Use Status: Former Tobacco user Review of Systems Const All systems reviewed & are unremarkable except as noted in HPI and below ENT Reports Normal hearing present Neuro Reports Normal hearing present Physical Exam Vital Signs: Last Vital Signs Pulse 80 01/30/24 15:47 BP 112/70 01/30/24 15:47 Pulse Ox 94 01/30/24 15:47 Oxygen Delivery Method Room Air 01/30/24 15:47 Const General: cooperative and tired appearing Nutritional Appearance: obese Orientation/consciousness: oriented to person Limitations: wheelchair Neck Neck: Yes full ROM and Yes supple Resp Effort & Inspection: normal respiratory effort and able to speak in complete sentences Neuro General: oriented to person and Unable to assess gait Cranial nerves: Yes Bilaterally intact EOM present, Yes Normal facial strength present, Yes Symmetric palate elevation present, Yes Normal hearing present, Yes Ability to bilaterally rotate head present and Yes Ability to bilaterally elevate shoulders present Cognition (Neuro): normal cognition Gait exam (Neuro): Unable to assess gait Motor exam (neuro): 5/5 motor strength present throughout, Pronator motor function not present and no tremor noted Psych Appearance: grossly normal Affect: normal affect Attitude: cooperative Assessment & Plan Assessment & Plan (1) DONAVAN on CPAP: Comment: Severe degree of sleep apnea. The AHI was 35/hr, oxygen don was 85%. REM was not recorded. Code(s): G47.33 - Obstructive sleep apnea (adult) (pediatric) Plan Advised patient to try CPAP while she is resting to get used to it. Practice how to use the mask. Stressed compliance, use CPAP nightly and mroe than 4hrs. Discussed regarding Inspire, and declined the further evaluation for Inspire at this time. Pt's daughter will ask patient's [employer] to put on CPAP at night and monitor. Coding Level of Care Code Est Pt Level 3 (31584) Diagnoses DONAVAN on CPAP G47.33
[2024-01-30 15:47] VITALS: BP 112/70; PULSE 80; O2SAT 94
== END 2024-01-30 16:07 | disposition home or self-care (01) ==
PROVIDERS: PCP Family Medicine; Visit Provider Nurse Practitioner Family
DX: G47.33 Obstructive sleep apnea (adult) (pediatric) (principal)
CPT/HCPCS: 99213

== ENCOUNTER → 2024-01-30 15:18 | Outpatient (BNVA) | payer OTHER, SELFPAY | PROVIDERS: PCP Family Medicine; Visit Provider Nurse Practitioner Family | DX: G47.33 Obstructive sleep apnea (adult) (pediatric) (principal) | CPT/HCPCS: 99212 ==

== ENCOUNTER 2024-07-09 16:39 | Observation (INO) | payer OTHER, SELFPAY ==
--- NOTE | ~2024-07-09 | CT_ITS ---
EXAMINATION: CT HEAD WITHOUT CONTRAST CT CERVICAL SPINE WITHOUT CONTRAST CLINICAL INFORMATION: Fall with head injury and neck injury COMPARISON: 11/27/2021 TECHNIQUE: Contiguous axial imaging was performed from the skull base to vertex without intravenous administration of contrast. In addition, helical noncontrast CT imaging was acquired through the cervical spine and source images were reviewed along with axial reconstructions and sagittal and coronal MPRs. All CT exams at this location are performed using dose optimization techniques as appropriate to a performed exam including at least one of the following: * Automated exposure control * Adjustment of the mA and/or kV according to patient size (this includes techniques or standardized protocols for targeted exams where dose is matched to indication / reason for exam; i/e/ extremities or head) * Use of iterative reconstructive technique DLP: 1233 mGy-cm FINDINGS: HEAD: No intracranial mass, hemorrhage, or midline shift is visualized. Periventricular and subcortical white matter changes seen consistent chronic microvascular ischemic disease. Generalized atrophy is seen. Ventricles are prominent in size due to underlying atrophy. No extra-axial collections are identified. The paranasal sinuses are well aerated. Osseous structures are intact. There is a metallic hyperdensity within the superficial soft tissues in the right supraorbital region. This is seen on the prior CT scan from 11/27/2021 CERVICAL SPINE: There is no evidence of acute cervical spine fracture. Vertebral body height and alignment is well maintained. No pre- or paravertebral soft tissue abnormality is identified. Chronic degenerative disc disease again seen at C3/C4, C6/C7 and C7/T1. Mild posterior facet joint arthropathy seen in the cervical spine bilaterally. Chronic fibrotic changes seen in the bilateral lung apices. CT/CT cervical spine wo IV con IMPRESSION: 1. No acute intracranial pathology. Chronic microvascular ischemic changes and atrophy. 2. No CT evidence of acute cervical spine fracture or traumatic subluxation. Chronic degenerative changes as described above.
--- NOTE | ~2024-07-09 | XR_ITS ---
EXAMINATION: XR CHEST CLINICAL INFORMATION: Weakness COMPARISON: 11/30/2021 and selected images from priors TECHNIQUE: AP C view of the chest was obtained. FINDINGS: A retrocardiac mass is increased in size from the prior study. A large gastric hernia is documented on 12/01/[address] On limited portable radiography suspect patchy consolidation at the left base. This could represent aspiration pneumonia. Lung volumes are otherwise preserved. No effusion or pneumothorax. Limited views of the upper abdomen with nonobstructive gas pattern. Degenerative changes in the shoulders and spine XR/XR chest 1V IMPRESSION: 1. A large gastric hernia has increased in size over the last 2 years. 2. Patchy consolidation at the left base suspicious for aspiration pneumonia.
--- NOTE | ~2024-07-09 | XR_ITS ---
EXAMINATION: XR HIP, LEFT CLINICAL INFORMATION: Fall, left hip pain COMPARISON: None available. TECHNIQUE: Two views of the left hip. FINDINGS: No fracture. Alignment is anatomic. Hip joint space is maintained. Soft tissues are unremarkable. XR/XR hip LT w [id number] IMPRESSION: No acute process
--- NOTE | ~2024-07-09 | CT_ITS ---
EXAMINATION: CT ABDOMEN AND PELVIS WITHOUT CONTRAST CLINICAL INFORMATION: Abdominal pain. COMPARISON: Abdominal ultrasound 10/25/2022 CT abdomen/pelvis 11/26/2021 TECHNIQUE: Multidetector volumetric imaging was performed from the superior aspect of the liver through the pubic symphysis. Sagittal and coronal reformatted images were obtained on the technologist's workstation. This CT examination was performed using dose optimization techniques as appropriate, variously including the following: *Automated exposure control *Adjustment of mA and/or kV according to patient size (this includes techniques or standardized protocols for targeted exams where dose is matched to indication/reason for exam; i.e. extremities or head) *Use of iterative reconstruction technique DLP: 591 mGy-cm FINDINGS: LUNG BASES: Large hiatal hernia. LIVER, GALLBLADDER, AND BILIARY TREE: The noncontrast liver is nodular in contour. No biliary ductal dilatation is present. The gallbladder is surgically absent. PANCREAS: Unremarkable. SPLEEN: Unremarkable. ADRENAL GLANDS: Unremarkable. KIDNEYS AND URETERS: The kidneys are symmetric in size. Bilateral renal cysts for which no further imaging follow-up is needed. Hyperdense medullary pyramids. No calculi seen. No hydronephrosis. No perinephric stranding. BLADDER: Unremarkable. 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 No small bowel obstruction. ABDOMINAL WALL: No significant hernia is appreciated. LYMPH NODES: No bulky lymphadenopathy. VASCULAR: Normal caliber abdominal aorta. PELVIC VISCERA: Uterus is surgically absent. OSSEOUS STRUCTURES: No destructive bone lesions. CT/CT abdomen pelvis wo IV con IMPRESSION: Nodular surface contour of the liver most likely representing chronic liver disease. Hyperdense medullary pyramids can be seen in the setting of medullary nephrocalcinosis/medullary sponge kidney.
--- NOTE | ~2024-07-09 | XR_ITS ---
EXAMINATION: XR FOREARM, LEFT CLINICAL INFORMATION: Fall, pain and swelling COMPARISON: None available. TECHNIQUE: AP and lateral views of the left forearm were obtained. FINDINGS: Focal soft tissue swelling consistent with hematoma seen over the lateral and dorsal aspect of the distal forearm extending to the wrist. Osseous structures are intact without acute fracture or dislocation. XR/XR forearm LT 2V IMPRESSION: Soft tissue swelling. No acute osseous process.
[2024-07-09 16:46] VITALS: BP 108/56; BP 154/71; PULSE 85; PULSE 88; RESP 20; TEMP 37.3; O2SAT 96; O2SAT 98; BMI 35.4
[2024-07-09 16:55] VITALS: BP 154/71; BP 157/71; PULSE 84; PULSE 86; RESP 20; TEMP 37.3; O2SAT 97
--- NOTE | 2024-07-09 17:20 | ECG_ITS ---
Test Reason : CP Blood Pressure : / mmHG Vent. Rate : 079 BPM Atrial Rate : 079 BPM P-R Int : 168 ms QRS Dur : 134 ms QT Int : 428 ms P-R-T Axes : 056 -16 020 degrees QTc Int : 490 ms Normal sinus rhythm Right bundle branch block Abnormal ECG When compared with ECG of 26-NOV-2021 19:14, Right bundle branch block is now Present Referred By: Srinath Abernathy Electronically Signed By:WARREN BUTCHER
--- NOTE | 2024-07-09 18:24 | ED.GENADULT ---
HPI - General Adult General Chief complaint: Fall Stated complaint: WEAKNESS, 2 FALLS TODAY Time Seen by Provider: 07/09/24 16:52 Source: patient, RN notes reviewed, old records reviewed and irrigator overhead Mode of arrival: EMS Limitations: language barrier and other (Poor historian) History of Present Illness ED Provider: Michela HPI narrative: 89-year-old female with past medical history significant for dementia, chronic kidney disease, history of CVA, hypertension presents for evaluation after a fall today. Patient reports that she had actually 2 falls today. She denies injuring herself in any way. Per EMS, the family stated that she has had increased urination and urinary incontinence which is new for her She denies any chest pain, shortness of breath Denies any fevers, chills, cough The patient is a fairly poor historian Related Data Home Medications ?Medication ?Instructions ?Recorded ?Confirmed ascorbic acid (vitamin C) 500 mg 1 tab PO BID 11/27/21 07/27/23 tablet (Vitamin C) calcium carbonate 600 mg-vitamin 1 tab PO BID 11/27/21 07/27/23 D3 5 mcg (200 unit) tablet (Calcium 600 + D(3)) ferrous sulfate 325 mg (65 mg 1 tab PO BID 11/27/21 07/27/23 iron) tablet,delayed release fluticasone propionate 50 1 spray intranasal DAILY PRN 11/27/21 07/27/23 mcg/actuation nasal Allergy Symptoms spray,suspension mirtazapine 15 mg tablet 1 tab PO BEDTIME 11/27/21 07/27/23 hydrocortisone 1 % lotion 1 appl topical DAILY APPLY TO SCALP 09/14/22 07/27/23 hydrocortisone 1 % topical cream 1 appl topical DAILY RASH ON NECK 09/14/22 07/27/23 albuterol sulfate 90 mcg/actuation 2 puff inhalation Q4-6H PRN 01/23/23 07/27/23 aerosol inhaler (Ventolin HFA) amlodipine 5 mg tablet 5 mg PO DAILY 01/23/23 07/27/23 aspirin 81 mg tablet,delayed 81 mg PO DAILY 01/23/23 07/27/23 release cetirizine 5 mg tablet 5 mg PO DAILY 01/23/23 07/27/23 clotrimazole-betamethasone 1 1 appl topical BID 01/23/23 07/27/23 %-0.05 % topical cream donepezil 10 mg tablet 10 mg PO DAILY 01/23/23 07/27/23 empagliflozin 10 mg tablet 10 mg PO DAILY 01/23/23 07/27/23 (Jardiance) fluoxetine 40 mg capsule 40 mg PO BEDTIME 01/23/23 07/27/23 furosemide 20 mg tablet 20 mg PO DAILY 01/23/23 07/27/23 haloperidol lactate 2 mg/mL oral 1 mg PO DAILY 01/23/23 07/27/23 concentrate lisinopril 20 mg tablet 20 mg PO DAILY 01/23/23 07/27/23 memantine 10 mg tablet 10 mg PO BID 01/23/23 07/27/23 mirabegron 50 mg tablet,extended 50 mg PO DAILY 01/23/23 07/27/23 release 24 hr (Myrbetriq) montelukast 10 mg tablet 10 mg PO DAILY 01/23/23 07/27/23 omeprazole 40 mg capsule,delayed 40 mg PO DAILY 01/23/23 07/27/23 release trazodone 50 mg tablet 50 mg PO BEDTIME 01/23/23 07/27/23 docusate sodium 100 mg capsule 100 mg PO BID 05/24/23 07/27/23 atorvastatin 20 mg tablet 20 mg PO DAILY 07/27/23 07/27/23 empagliflozin 10 mg tablet 10 mg PO DAILY 09/27/23 (Jardiance) mirabegron 50 mg tablet,extended 50 mg PO DAILY 07/10/24 07/10/24 release 24 hr (Myrbetriq) Previous Rx's ?Medication ?Instructions ?Recorded albuterol sulfate 90 mcg/actuation 2 puff inhalation Q6H PRN 09/15/22 aerosol inhaler shortness of breath or wheezing #6.7 grams Allergies Allergy/AdvReac Type Severity Reaction Status Date / Time ceftazidime [Ceftazidime] Allergy Mild UNKNOWN Verified 07/09/24 16:54 benzocaine [Benzocaine] Allergy Unknown UNKNOWN Verified 07/09/24 16:54 butamben [From Cetacaine] Allergy Unknown UNKNOWN Verified 07/09/24 16:54 metoclopramide [From Reglan] Allergy Unknown UNKNOWN Verified 07/09/24 16:54 morphine [Morphine] Allergy Unknown SWELLING Verified 07/09/24 16:54 tetracaine [From Cetacaine] Allergy Unknown UNKNOWN Verified 07/09/24 16:54 Review of Systems Constitutional: Constitutional: Denies body ache(s), Denies chills, Denies fever(s), Reports frequent falls and Denies headache(s) Eyes: Eyes: Denies blurry vision ENT: Denies headache(s) and Denies sore throat Cardiovascular: Cardiovascular: Denies chest pain and Denies dyspnea Respiratory: Respiratory: Denies cough and Denies dyspnea Gastrointestinal: Gastrointestinal: Denies abdominal pain, Denies nausea and Denies vomiting Genitourinary: Comments: urinary frequency Musculoskeletal: Musculoskeletal: Denies back pain Integumentary/Breasts: Skin/Breast: Denies rash Neurologic: Reports frequent falls and Denies headache(s) Psychiatric: Psychiatric: Denies anxiety [facility] Past Medical History Medical History (Updated 07/10/24 @ 08:05 by Lyndsey Simpson DO) Cirrhosis of liver DONAVAN (obstructive sleep apnea) Diabetes Allergic dermatitis Hives CVA (cerebral vascular accident) Non-alcoholic micronodular cirrhosis of liver CKD (chronic kidney disease) Dementia Hypertension Surgical History Hx of cholecystectomy No pertinent past surgical history Family History Family History Father No problems noted. Mother No problems noted. Social History Social History Housing: Apartment Do you presently have visiting nurse or other home services: No Alcohol intake: current Alcohol intake frequency: does not drink Patient Tobacco Use Status: Former Tobacco user Smoked in Last 30 Days: No Use of substances other than those prescribed or required for medical reasons: No Advance Directives: Yes Advance Directives on File: Yes Advance Directives Date on File: 12/07/21 Do you have a plan to hurt others: No Plan Physical Exam ED Vital Signs: Vital Signs - 24 hr 07/09/24 16:46 07/09/24 16:55 07/09/24 16:55 Temperature 99.1 F 99.1 F 99.1 F Pulse Rate 85 84 86 Respiratory Rate 20 20 20 Blood Pressure 154/71 H 154/71 H 157/71 H Pulse Oximetry 96 97 97 Oxygen Delivery Method Nasal Cannula Nasal Cannula Oxygen Flow Rate 2 07/09/24 19:42 07/09/24 22:00 07/10/24 04:40 Temperature 99.1 F 99.0 F 99.1 F Pulse Rate 81 82 82 Respiratory Rate 19 18 18 Blood Pressure 162/71 H 168/85 H 154/78 H Pulse Oximetry 93 92 94 Oxygen Delivery Method Room Air Room Air Room Air Oxygen Flow Rate 07/10/24 07:15 Temperature 100.5 F H Pulse Rate 92 Respiratory Rate 16 Blood Pressure 157/76 H Pulse Oximetry 92 Oxygen Delivery Method Room Air Oxygen Flow Rate BMI result Body Mass Index 35.4 Const General: comfortable, no acute distress, alert and awake Nutritional Appearance: well nourished Orientation/consciousness: patient oriented x3 HENMT Head: Yes normocephalic and Yes atraumatic Throat: Yes posterior oropharynx normal Eyes Eyelids: Yes eyelids normal Conjunctivae: conjunctivae normal Sclerae: sclerae normal Corneas: corneas normal Pupils: Equal, round and reactive pupils present EOM: EOMs intact bilaterally Neck Neck: Yes full ROM Resp Effort & Inspection: normal respiratory effort, able to speak in complete sentences, no audible wheezes and not labored Auscultation: clear to auscultation bilaterally Cardio Rate: regular rate Rhythm: regular rhythm GI Inspection: No distended Palpation (GI): Soft to palpation, not firm, nontender, no guarding and not rigid Skin General skin exam: elasticity normal Neuro General: patient oriented x3 Cranial nerves: Yes Equal, round and reactive pupils present and Yes Bilaterally intact EOM present Extrem Other: Patient is able to move all extremities quite well. She does have moderate edema with ecchymosis to the dorsal surface of the left forearm. This area is nontender to palpation. She is able to flex and extend at the left wrist, open and close all fingers of the left hand. Patient has some tenderness palpation of the left hip. There is no shortening of the left lower extremity or rotation. Course Reevaluation(s) Reevaluation #1: Patient's urinalysis is grossly infected in this was a straight catheter. Again, her clinical presentation is significant for UTI. Her chest x-ray does show concern for aspiration pneumonia. The patient is on room air is not hypoxic, she has no leukocytosis, she is not coughing or complaining of shortness of breath. I feel this is less likely, however she will require antibiotics for her UTI. She has an allergy to ceftazidime and therefore we will treat with Levaquin which will cover respiratory and urinary liza. Time: 21:22 Reevaluation #2: Discussed potential admission with for the patient due to acute delirium, increased weakness in the setting you have urinary tract infection. The patient is not septic, is able to climb p.o., so the hospitalist team did not feel the patient met admission criteria at this time. The patient is too weak to go home given the multiple falls today, patient will being physical therapy and case management consult for the morning. Physician observation starts now Time: 23:16 Reevaluation #3: 724am 07/10/24 + UTI + and aspiration pneumonia L side had fever this AM will obtain repeat labs, blood cultures, lactic acid and give tylenol start on empiric ceftriaxone/flagyl has unknown reaction to ceftaz - SANJEEV was given levofloxacin at midnight but still having fevers, no prior cultures, avoid levofloxacin in elderly given risk of delerium also levofloxacin will not cover aspiration at this time. at this time given age and recurrent fever in setting of infection and she has dual infection will admit for further work up and management - hospitalist to admit observation ended at 810am. SANJEEV Medications Administered Discontinued Medications Generic Name Dose Route Start Last Admin Trade Name Yannickq PRN Reason Stop Dose Admin Acetaminophen 975 mg 07/10/24 07:23 07/10/24 07:44 Acetaminophen 325 Mg Tablet PO 07/10/24 07:24 975 mg ONCE ONE Administration Haloperidol Lactate 1 mg 07/10/24 02:05 07/10/24 03:29 Haloperidol Lactate Oral Conc 10 Mg/5 Ml Oral.Conc PO 07/10/24 02:06 1 mg ONCE ONE Administration Levofloxacin 750 mg in 150 mls @ 100 mls/hr 07/09/24 21:21 07/10/24 00:40 Levaquin IV 07/09/24 22:50 Infused ONCE ONE Infusion Ceftriaxone Sodium 1 gm/ 50 mls @ 100 mls/hr 07/10/24 07:23 07/10/24 07:45 Sodium Chloride IV 07/10/24 07:52 100 mls/hr ONCE ONE Administration Medical Decision Making Medical Decision Making MDM Narrative: 89-year-old female presents for evaluation of apparently 2 falls today. She denies injuring herself in any way but appears to have a deformity of the left distal forearm in his tender to palpation of the left hip. She is able to move all of her extremities. Plan for medical workup including EKG, labs, urinalysis given the frequent urination and new incontinence. Plan for a CT scan of the brain and C-spine given the 2 falls today. Plan for x-rays of the chest, left forearm and left hip given exam findings. Patient's vital signs are currently stable Differential Diagnosis Differential Diagnoses: The differential diagnosis associated with the presentation includes Mechanical fall Syncope Weakness UTI Left wrist fracture Hip fracture Contusion Lab Data MDM Lab Attestation statement: I reviewed the patient's lab results. No leukocytosis. No significant anemia. Platelet count just below normal at 116 K. This is consistent with her baseline. Patient's chloride level is slightly elevated at 111, CO2 level of 20. BUN is elevated 26 which is consistent with her baseline. Creatinine within normal limits at 1.29. The patient is a known diabetic, her glucose is 140. She has a mild elevation of an AST and ALT unclear etiology at this time. Her troponin is elevated to 53, she denies chest pain, EKG is not acutely ischemic. She does have a history of elevated troponin, will repeat a 3 hour tiffani 07/10/24 07:38 07/10/24 07:38 Labs: Lab Results 07/09/24 07/09/24 07/09/24 Range/Units 18:07 19:23 19:39 WBC 9.5 (4.8-10.8) X10*3/uL RBC 4.44 (4.20-5.50) X10*6/uL Hgb 13.7 (12.0-16.0) g/dl Hct 41.2 (37.0-47.0) % MCV 92.8 (80.0-98.0) fL MCH 30.9 (27.0-33.0) pg MCHC 33.3 (31.0-35.0) g/dl RDW 14.2 (11.0-16.0) % Plt Count 116 L (160-400) X10*3/uL MPV 10.8 (9.4-12.3) fL Immature Gran % (Auto) 0.6 H (0.0-0.4) % Neut % (Auto) 81.8 H (45-73) % Lymph % (Auto) 8.0 L (20-40) % [place] % (Auto) 9.0 (2-11) % Eos % (Auto) 0.4 (0-4) % Baso % (Auto) 0.2 (0-2) % Lymph # (Auto) 0.8 L (1.2-4.9) X10*3/uL [place] # (Auto) 0.9 (0.1-1.2) X10*3/uL Eos # (Auto) 0.0 (0.0-0.4) X10*3/uL Baso # (Auto) 0.0 (0.0-0.2) X10*3/uL Abs Immat Gran (auto) 0.06 H (0.00-0.03) X10*3/uL Absolute Neuts (auto) 7.8 (2.0-8.3) x10*3/uL Absolute Nucleated RBC 0.000 (0.0-0.012) X10*3/uL Nucleated RBC % (auto) 0.0 (0.0-0.2) /100WBC PT 11.9 (11.1-13.3) SEC INR 1.0 (0.9-1.1) APTT 25.9 L (26.0-36.8) SEC Sodium 143 (135-145) mmol/L Potassium 3.8 (3.3-5.1) mmol/L Chloride 111 H (96-108) mmol/L Carbon Dioxide 20 L (22-29) mmol/L Anion Gap 16 (12-20) BUN 26 H (9-16) mg/dL Creatinine 1.29 (0.5-1.4) mg/dL Estim Creat Clear Calc 32.2 Estimated GFR 39 POC Glucose (60-115) mg/dL Random Glucose 140 H (60-115) mg/dL Lactic Acid (0.5-2.0) mmol/L Calcium 10.2 (8.4-10.2) mg/dL Magnesium 2.1 (1.6-2.6) mg/dL Total Bilirubin 0.6 (0.0-1.0) mg/dL AST 48 H (5-31) U/L ALT 36 H (0-31) U/L Alkaline Phosphatase 78 (39-117) U/L Troponin I High Sens 53.0 H* (<3.5-17.0) ng/L B-Natriuretic Peptide 71 (<100) pg/mL Total Protein 7.7 (6.5-8.0) g/dL Albumin 3.9 (3.5-5.0) g/dL Lipase 26 (8-78) U/L Urine Color Yellow Urine Appearance Cloudy Urine pH 5.5 (5.0-9.0) Ur Specific [place] >= 1.030 H (1.005-1.025) Urine Protein 30 (1+) H (Neg-Trace) mg/dL Urine Glucose (UA) >=1000 H (Negative) mg/dL Urine Ketones Trace (Negative) mg/dL Urine Blood Small (1+) H (Negative) Urine Nitrite Positive H (Negative) Ur Leukocyte Esterase Negative (Negative) Urine RBC 3-5 H (0-2) /HPF Urine WBC 11-20 H (0-5) /HPF Ur Squamous Epith Cells 6-10 (0-2) /HPF Urine Bacteria 4+ (None Seen) Hyaline Casts 0-2 (0-2) /LPF Influenza Type A (PCR) NEGATIVE (Negative) Influenza Type B (PCR) NEGATIVE (Negative) RSV RNA Qual (PCR) NEGATIVE (Negative) SARS-CoV-2 RNA (RT-PCR) NEGATIVE (Negative) 07/09/24 07/10/24 07/10/24 Range/Units 21:05 07:26 07:31 WBC (4.8-10.8) X10*3/uL RBC (4.20-5.50) X10*6/uL Hgb (12.0-16.0) g/dl Hct (37.0-47.0) % MCV (80.0-98.0) fL MCH (27.0-33.0) pg MCHC (31.0-35.0) g/dl RDW (11.0-16.0) % Plt Count (160-400) X10*3/uL MPV (9.4-12.3) fL Immature Gran % (Auto) (0.0-0.4) % Neut % (Auto) (45-73) % Lymph % (Auto) (20-40) % [place] % (Auto) (2-11) % Eos % (Auto) (0-4) % Baso % (Auto) (0-2) % Lymph # (Auto) (1.2-4.9) X10*3/uL [place] # (Auto) (0.1-1.2) X10*3/uL Eos # (Auto) (0.0-0.4) X10*3/uL Baso # (Auto) (0.0-0.2) X10*3/uL Abs Immat Gran (auto) (0.00-0.03) X10*3/uL Absolute Neuts (auto) (2.0-8.3) x10*3/uL Absolute Nucleated RBC (0.0-0.012) X10*3/uL Nucleated RBC % (auto) (0.0-0.2) /100WBC PT (11.1-13.3) SEC INR (0.9-1.1) APTT (26.0-36.8) SEC Sodium (135-145) mmol/L Potassium (3.3-5.1) mmol/L Chloride (96-108) mmol/L Carbon Dioxide (22-29) mmol/L Anion Gap (12-20) BUN (9-16) mg/dL Creatinine (0.5-1.4) mg/dL Estim Creat Clear Calc Estimated GFR POC Glucose 113 (60-115) mg/dL Random Glucose (60-115) mg/dL Lactic Acid 0.9 (0.5-2.0) mmol/L Calcium (8.4-10.2) mg/dL Magnesium (1.6-2.6) mg/dL Total Bilirubin (0.0-1.0) mg/dL AST (5-31) U/L ALT (0-31) U/L Alkaline Phosphatase (39-117) U/L Troponin I High Sens 63.0 H* (<3.5-17.0) ng/L B-Natriuretic Peptide (<100) pg/mL Total Protein (6.5-8.0) g/dL Albumin (3.5-5.0) g/dL Lipase (8-78) U/L Urine Color Urine Appearance Urine pH (5.0-9.0) Ur Specific [place] (1.005-1.025) Urine Protein (Neg-Trace) mg/dL Urine Glucose (UA) (Negative) mg/dL Urine Ketones (Negative) mg/dL Urine Blood (Negative) Urine Nitrite (Negative) Ur Leukocyte Esterase (Negative) Urine RBC (0-2) /HPF Urine WBC (0-5) /HPF Ur Squamous Epith Cells (0-2) /HPF Urine Bacteria (None Seen) Hyaline Casts (0-2) /LPF Influenza Type A (PCR) (Negative) Influenza Type B (PCR) (Negative) RSV RNA Qual (PCR) (Negative) SARS-CoV-2 RNA (RT-PCR) (Negative) 07/10/24 Range/Units 07:38 WBC 7.3 (4.8-10.8) X10*3/uL RBC 4.55 (4.20-5.50) X10*6/uL Hgb 13.8 (12.0-16.0) g/dl Hct 42.1 (37.0-47.0) % MCV 92.5 (80.0-98.0) fL MCH 30.3 (27.0-33.0) pg MCHC 32.8 (31.0-35.0) g/dl RDW 14.2 (11.0-16.0) % Plt Count 123 L (160-400) X10*3/uL MPV 10.5 (9.4-12.3) fL Immature Gran % (Auto) 0.5 H (0.0-0.4) % Neut % (Auto) 78.0 H (45-73) % Lymph % (Auto) 9.6 L (20-40) % [place] % (Auto) 9.9 (2-11) % Eos % (Auto) 1.6 (0-4) % Baso % (Auto) 0.4 (0-2) % Lymph # (Auto) 0.7 L (1.2-4.9) X10*3/uL [place] # (Auto) 0.7 (0.1-1.2) X10*3/uL Eos # (Auto) 0.1 (0.0-0.4) X10*3/uL Baso # (Auto) 0.0 (0.0-0.2) X10*3/uL Abs Immat Gran (auto) 0.04 H (0.00-0.03) X10*3/uL Absolute Neuts (auto) 5.7 (2.0-8.3) x10*3/uL Absolute Nucleated RBC 0.000 (0.0-0.012) X10*3/uL Nucleated RBC % (auto) 0.0 (0.0-0.2) /100WBC PT (11.1-13.3) SEC INR (0.9-1.1) APTT (26.0-36.8) SEC Sodium 143 (135-145) mmol/L Potassium 3.9 (3.3-5.1) mmol/L Chloride 110 H (96-108) mmol/L Carbon Dioxide 25 (22-29) mmol/L Anion Gap 12 (12-20) BUN 21 H (9-16) mg/dL Creatinine 1.23 (0.5-1.4) mg/dL Estim Creat Clear Calc 33.7 Estimated GFR 41 POC Glucose (60-115) mg/dL Random Glucose 121 H (60-115) mg/dL Lactic Acid (0.5-2.0) mmol/L Calcium 10.2 (8.4-10.2) mg/dL Magnesium (1.6-2.6) mg/dL Total Bilirubin (0.0-1.0) mg/dL AST (5-31) U/L ALT (0-31) U/L Alkaline Phosphatase (39-117) U/L Troponin I High Sens (<3.5-17.0) ng/L B-Natriuretic Peptide (<100) pg/mL Total Protein (6.5-8.0) g/dL Albumin (3.5-5.0) g/dL Lipase (8-78) U/L Urine Color Urine Appearance Urine pH (5.0-9.0) Ur Specific [place] (1.005-1.025) Urine Protein (Neg-Trace) mg/dL Urine Glucose (UA) (Negative) mg/dL Urine Ketones (Negative) mg/dL Urine Blood (Negative) Urine Nitrite (Negative) Ur Leukocyte Esterase (Negative) Urine RBC (0-2) /HPF Urine WBC (0-5) /HPF Ur Squamous Epith Cells (0-2) /HPF Urine Bacteria (None Seen) Hyaline Casts (0-2) /LPF Influenza Type A (PCR) (Negative) Influenza Type B (PCR) (Negative) RSV RNA Qual (PCR) (Negative) SARS-CoV-2 RNA (RT-PCR) (Negative) Discharge Plan Discharge Clinical Impression: Weakness, Falls frequently Urinary tract infection Qualifiers: Urinary tract infection type: acute cystitis Hematuria presence: without hematuria Qualified Code(s): N30.00 - Acute cystitis without hematuria Aspiration pneumonia Qualifiers: Aspiration pneumonia type: unspecified Laterality: left Lung location: lower lobe of lung Qualified Code(s): J69.0 - Pneumonitis due to inhalation of food and vomit Patient Disposition: Still a Patient Instructions: Urinary Tract Infection in Women (ED) Prescriptions: No Action calcium carbonate-vitamin D3 [Calcium 600 + D(3)] 600 mg-5 mcg (200 unit) tablet 1 tab PO BID ascorbic acid (vitamin C) [Vitamin C] 500 mg tablet 1 tab PO BID mirtazapine 15 mg tablet 1 tab PO BEDTIME ferrous sulfate 325 mg (65 mg iron) tablet,delayed release (DR/EC) 1 tab PO BID fluticasone propionate 50 mcg/actuation spray,suspension 1 spray intranasal DAILY PRN (Reason: Allergy Symptoms) furosemide 20 mg tablet 20 mg PO DAILY fluoxetine 40 mg capsule 40 mg PO BEDTIME donepezil 10 mg tablet 10 mg PO DAILY memantine 10 mg tablet 10 mg PO BID Myrbetriq 50 mg tablet extended release 24 hr 50 mg PO DAILY montelukast 10 mg tablet 10 mg PO DAILY trazodone 50 mg tablet 50 mg PO BEDTIME lisinopril 20 mg tablet 20 mg PO DAILY amlodipine 5 mg tablet 5 mg PO DAILY aspirin 81 mg tablet,delayed release (DR/EC) 81 mg PO DAILY cetirizine 5 mg tablet 5 mg PO DAILY omeprazole 40 mg capsule,delayed release(DR/EC) 40 mg PO DAILY hydrocortisone 1 % lotion 1 appl topical DAILY hydrocortisone 1 % cream 1 appl topical DAILY albuterol sulfate 90 mcg/actuation HFA aerosol inhaler 2 puff inhalation Q6H PRN (Reason: shortness of breath or wheezing) Qty: 6.7 2RF mirabegron [Myrbetriq] 50 mg tablet extended release 24 hr 50 mg PO DAILY docusate sodium 100 mg capsule 100 mg PO BID albuterol sulfate [Ventolin HFA] 90 mcg/actuation HFA aerosol inhaler 2 puff inhalation Q4-6H PRN Jardiance 10 mg tablet 10 mg PO DAILY clotrimazole-betamethasone 1-0.05 % cream 1 appl topical BID haloperidol lactate 2 mg/mL concentrate 1 mg PO DAILY atorvastatin 20 mg tablet 20 mg PO DAILY Jardiance 10 mg tablet 10 mg PO DAILY Print Language: Grenadian
[2024-07-09 18:42] LABS: Alanine Aminotransferase 36 U/L (0-31); Albumin Level 3.9 g/dL (3.5-5.0); Alkaline Phosphatase 78 U/L (39-117); Anion Gap 16 (12-20); Aspartate Amino Transferase 48 U/L (5-31); Bilirubin Total 0.6 mg/dL (0.0-1.0); Blood Urea Nitrogen 26 mg/dL (9-16); Calcium 10.2 mg/dL (8.4-10.2); Carbon Dioxide 20 mmol/L (22-29); Chloride 111 mmol/L (96-108); Creatinine Clr Calc Pharmacy 32.2; Estimated Glomerular Filt Rate 39; Glucose Random 140 mg/dL (60-115); Lipase 26 U/L (8-78); Magnesium 2.1 mg/dL (1.6-2.6); Potassium 3.8 mmol/L (3.3-5.1); Sodium 143 mmol/L (135-145); Total Protein 7.7 g/dL (6.5-8.0)
[2024-07-09 19:04] LABS: Influenza A PCR NEGATIVE (Negative); Influenza B PCR NEGATIVE (Negative); Resp Syncy Virus RNA Qual PCR NEGATIVE (Negative); SARS COV2 PCR INHOUSE NEGATIVE (Negative)
[2024-07-09 19:31] LABS: Appearance Urine Cloudy; Color Urine Yellow; Glucose Urine UA >=1000 mg/dL (Negative); Leukocyte Esterase Urine Negative (Negative); Nitrite Urine Positive (Negative); PH 5.5 (5.0-9.0); Specific Gravity - Urine >= 1.030 (1.005-1.025); UMIC TRIGGER UACC YES; Urine Blood Small (1+) (Negative); Urine Ketones Trace mg/dL (Negative); Urine Protein 30 (1+) mg/dL (Neg-Trace)
[2024-07-09 19:42] VITALS: BP 162/71; PULSE 81; RESP 19; TEMP 37.3; O2SAT 93
[2024-07-09 19:42] LABS: Bacteria Urine 4+ (None Seen); Hyaline Casts Urine 0-2 /LPF (0-2); UACC Culture Trigger YES
[2024-07-09 19:44] LABS: MANUAL DIFF FLAG NO
[2024-07-09 19:51] LABS: Prothrombin Time 11.9 SEC (11.1-13.3)
[2024-07-09 19:54] LABS: Partial Thromboplastin Time 25.9 SEC (26.0-36.8)
[2024-07-09 19:58] LABS: Basophils Percent Auto 0.2 % (0-2); Eosinophils Percent Auto 0.4 % (0-4); Hematocrit 41.2 % (37.0-47.0); Hemoglobin 13.7 g/dl (12.0-16.0); Imm Gran Abs Auto 0.06 X10*3/uL (0.00-0.03); Imm Gran Pct Auto 0.6 % (0.0-0.4); Lymphocytes Absolute Auto 0.8 X10*3/uL (1.2-4.9); Mean Corpuscular HGB Conc 33.3 g/dl (31.0-35.0); Mean Corpuscular Hemoglobin 30.9 pg (27.0-33.0); Mean Corpuscular Volume 92.8 fL (80.0-98.0); Mean Platelet Volume 10.8 fL (9.4-12.3); Monocytes Absolute Auto 0.9 X10*3/uL (0.1-1.2); Neutrophils Absolute Auto 7.8 x10*3/uL (2.0-8.3); Neutrophils Percent Auto 81.8 % (45-73); Platelet Count 116 X10*3/uL (160-400); Red Blood Count 4.44 X10*6/uL (4.20-5.50); Red Cell Distribution Width 14.2 % (11.0-16.0); White Blood Count 9.5 X10*3/uL (4.8-10.8)
[2024-07-09 20:14] LABS: B Type Natriuretic Peptide 71 pg/mL (<100)
[2024-07-09 22:00] VITALS: BP 168/85; PULSE 82; RESP 18; TEMP 37.2; O2SAT 92
[2024-07-09] MEDS: levoFLOXacin/D5W 750 MG/150 ML PIGGYBACK 100 MG IV (22:00)
[2024-07-10] MEDS: Haloperidol Lactate Oral Conc 10 MG/5 ML ORAL.CONC PO (03:29)
[2024-07-10 04:40] VITALS: BP 154/78; PULSE 82; RESP 18; TEMP 37.3; O2SAT 94
[2024-07-10 07:15] VITALS: BP 157/76; PULSE 92; RESP 16; TEMP 38.1; O2SAT 92
--- NOTE | 2024-07-10 07:19 | PC.NURSE ---
pt incontinent of urine. bedding/new pads placed. pt noted to be hot to the touch. rectal temp obtained/displaying 100.5. provider notified/aware.
[2024-07-10 07:44] LABS: MANUAL DIFF FLAG NO
[2024-07-10] MEDS: Acetaminophen 325 MG TABLET 975 MG PO (07:44)
[2024-07-10 07:45] LABS: Lactic Acid 0.9 mmol/L (0.5-2.0)
[2024-07-10] MEDS: cefTRIAXone sodium 1 GM in 0.9 % Sodium Chloride 50 ML IV (07:45)
--- NOTE | 2024-07-10 07:45 | PC.NURSE ---
labs obtained/sent to lab. medication administered per provider order. effectiveness pending.
[2024-07-10 07:46] LABS: Glucose, Whole Blood 113 mg/dL (60-115)
[2024-07-10 07:51] LABS: Basophils Percent Auto 0.4 % (0-2); Eosinophils Absolute Auto 0.1 X10*3/uL (0.0-0.4); Eosinophils Percent Auto 1.6 % (0-4); Hematocrit 42.1 % (37.0-47.0); Hemoglobin 13.8 g/dl (12.0-16.0); Imm Gran Abs Auto 0.04 X10*3/uL (0.00-0.03); Imm Gran Pct Auto 0.5 % (0.0-0.4); Lymphocytes Absolute Auto 0.7 X10*3/uL (1.2-4.9); Lymphocytes Percent Auto 9.6 % (20-40); Mean Corpuscular HGB Conc 32.8 g/dl (31.0-35.0); Mean Corpuscular Hemoglobin 30.3 pg (27.0-33.0); Mean Corpuscular Volume 92.5 fL (80.0-98.0); Mean Platelet Volume 10.5 fL (9.4-12.3); Monocytes Absolute Auto 0.7 X10*3/uL (0.1-1.2); Monocytes Percent Auto 9.9 % (2-11); Neutrophils Absolute Auto 5.7 x10*3/uL (2.0-8.3); Platelet Count 123 X10*3/uL (160-400); Red Blood Count 4.55 X10*6/uL (4.20-5.50); Red Cell Distribution Width 14.2 % (11.0-16.0); White Blood Count 7.3 X10*3/uL (4.8-10.8)
[2024-07-10 08:06] LABS: Anion Gap 12 (12-20); Blood Urea Nitrogen 21 mg/dL (9-16); Calcium 10.2 mg/dL (8.4-10.2); Carbon Dioxide 25 mmol/L (22-29); Chloride 110 mmol/L (96-108); Creatinine Clr Calc Pharmacy 33.7; Estimated Glomerular Filt Rate 41; Glucose Random 121 mg/dL (60-115); Potassium 3.9 mmol/L (3.3-5.1); Sodium 143 mmol/L (135-145)
[2024-07-10] MEDS: metroNIDAZOLE/NS 500 MG/100 ML PIGGYBACK 100 MG IV (08:33)
[2024-07-10 08:51] VITALS: BP 143/64; PULSE 81; RESP 16; TEMP 37.6; O2SAT 92
--- NOTE | 2024-07-10 09:25 | PM.IMHP ---
History of Present Illness Date of Service: 07/10/24 Chief Complaint: falls 89F PMH CKD III, history of CVA, vascular/alzheimers dementia, severe , cirrhosis, htn presented with fall. patient is poor historian, but aware she is in hospital and reports she fell today. reports she tripped, and was not lightheaded and did not pass out. denies trauma, but is reporting some abd pain. family reporting urinary incontinance and frequency. in ED cxr with possible aspiration. ua positive. no sepsis, but low grade rectal temp of 100.5. Review of Systems Review of Systems: Yes all other systems are reviewed and are negative [facility] Medical History Cirrhosis of liver DONAVAN (obstructive sleep apnea) Diabetes Allergic dermatitis Hives CVA (cerebral vascular accident) Non-alcoholic micronodular cirrhosis of liver CKD (chronic kidney disease) Dementia Hypertension Family History Father No problems noted. Mother No problems noted. Surgical History Hx of cholecystectomy No pertinent past surgical history Social History Housing: Apartment Do you presently have visiting nurse or other home services: No Alcohol intake: current Alcohol intake frequency: does not drink Patient Tobacco Use Status: Former Tobacco user Smoked in Last 30 Days: No Use of substances other than those prescribed or required for medical reasons: No Advance Directives: Yes Advance Directives on File: Yes Advance Directives Date on File: 12/07/21 Do you have a plan to hurt others: No Plan Nutrition Risks: No Nutritional Risk Meds Allergies Allergy/AdvReac Type Severity Reaction Status Date / Time ceftazidime [Ceftazidime] Allergy Mild UNKNOWN Verified 07/09/24 16:54 benzocaine [Benzocaine] Allergy Unknown UNKNOWN Verified 07/09/24 16:54 butamben [From Cetacaine] Allergy Unknown UNKNOWN Verified 07/09/24 16:54 metoclopramide [From Reglan] Allergy Unknown UNKNOWN Verified 07/09/24 16:54 morphine [Morphine] Allergy Unknown SWELLING Verified 07/09/24 16:54 tetracaine [From Cetacaine] Allergy Unknown UNKNOWN Verified 07/09/24 16:54 Home Medications ?Medication ?Instructions ?Recorded ?Confirmed ?Last Taken ?Type ascorbic acid (vitamin C) 500 mg 1 tab PO BID 11/27/21 07/10/24 Unknown History tablet (Vitamin C) calcium carbonate 600 mg-vitamin 1 tab PO BID 11/27/21 07/10/24 Unknown History D3 5 mcg (200 unit) tablet (Calcium 600 + D(3)) ferrous sulfate 325 mg (65 mg 1 tab PO BID 11/27/21 07/10/24 Unknown History iron) tablet,delayed release mirtazapine 15 mg tablet 1 tab PO BEDTIME 11/27/21 07/10/24 Unknown History amlodipine 5 mg tablet 5 mg PO DAILY 01/23/23 07/10/24 Unknown History aspirin 81 mg tablet,delayed 81 mg PO DAILY 01/23/23 07/10/24 Unknown History release cetirizine 5 mg tablet 5 mg PO DAILY 01/23/23 07/10/24 Unknown History donepezil 10 mg tablet 10 mg PO DAILY 01/23/23 07/10/24 Unknown History empagliflozin 10 mg tablet 10 mg PO DAILY 01/23/23 07/10/24 Unknown History (Jardiance) fluoxetine 40 mg capsule 40 mg PO BEDTIME 01/23/23 07/10/24 Unknown History lisinopril 20 mg tablet 20 mg PO DAILY 01/23/23 07/10/24 Unknown History memantine 10 mg tablet 10 mg PO BID 01/23/23 07/10/24 Unknown History montelukast 10 mg tablet 10 mg PO DAILY 01/23/23 07/10/24 Unknown History omeprazole 40 mg capsule,delayed 40 mg PO DAILY 01/23/23 07/10/24 Unknown History release docusate sodium 100 mg capsule 100 mg PO BID 05/24/23 07/10/24 Unknown History atorvastatin 20 mg tablet 20 mg PO DAILY 07/27/23 07/10/24 Unknown History mirabegron 50 mg tablet,extended 50 mg PO DAILY 07/10/24 07/10/24 Unknown History release 24 hr (Myrbetriq) Physical Exam Vital Signs and Narrative: Vital Signs: Last Vital Signs Temp 99.7 F 07/10/24 08:51 Pulse 81 07/10/24 08:51 Resp 16 07/10/24 08:51 BP 143/64 H 07/10/24 08:51 Pulse Ox 92 07/10/24 08:51 O2 Del Method Room Air 07/10/24 08:51 O2 Flow Rate 2 07/09/24 16:55 BMI result Body Mass Index 35.4 General: AO X 3, no acute distress, frail appearing Resp: CTA bilateral, no accessory muscles used CVS: S1,S2,RRR, murmur GI: soft, tender, non distended Neuro: motor grossly intact, alert Psych: appropriate affect, imapired insight Results Labs 07/10/24 07:38 07/10/24 07:38 Labs: Laboratory Results - last 24 hr 07/09/24 07/09/24 07/09/24 18:07 19:23 19:39 MCV 92.8 MCH 30.9 MCHC 33.3 RDW 14.2 Plt Count 116 L MPV 10.8 Immature Gran % (Auto) 0.6 H Neut % (Auto) 81.8 H Lymph % (Auto) 8.0 L Kershaw % (Auto) 9.0 Eos % (Auto) 0.4 Baso % (Auto) 0.2 Lymph # (Auto) 0.8 L [place] # (Auto) 0.9 Eos # (Auto) 0.0 Baso # (Auto) 0.0 Abs Immat Gran (auto) 0.06 H Absolute Neuts (auto) 7.8 Absolute Nucleated RBC 0.000 Nucleated RBC % (auto) 0.0 PT 11.9 INR 1.0 APTT 25.9 L Anion Gap 16 Estim Creat Clear Calc 32.2 Estimated GFR 39 POC Glucose Random Glucose 140 H Lactic Acid Calcium 10.2 Magnesium 2.1 Total Bilirubin 0.6 AST 48 H ALT 36 H Alkaline Phosphatase 78 Troponin I High Sens 53.0 H* B-Natriuretic Peptide 71 Total Protein 7.7 Albumin 3.9 Lipase 26 Urine Color Yellow Urine Appearance Cloudy Urine pH 5.5 Ur Specific [place] >= 1.030 H Urine Protein 30 (1+) H Urine Glucose (UA) >=1000 H Urine Ketones Trace Urine Blood Small (1+) H Urine Nitrite Positive H Ur Leukocyte Esterase Negative Urine RBC 3-5 H Urine WBC 11-20 H Ur Squamous Epith Cells 6-10 Urine Bacteria 4+ Hyaline Casts 0-2 Influenza Type A (PCR) NEGATIVE Influenza Type B (PCR) NEGATIVE RSV RNA Qual (PCR) NEGATIVE SARS-CoV-2 RNA (RT-PCR) NEGATIVE 07/09/24 07/10/24 07/10/24 21:05 07:26 07:31 MCV MCH MCHC RDW Plt Count MPV Immature Gran % (Auto) Neut % (Auto) Lymph % (Auto) K[place]haw % (Auto) Eos % (Auto) Baso % (Auto) Lymph # (Auto) [place]haw # (Auto) Eos # (Auto) Baso # (Auto) Abs Immat Gran (auto) Absolute Neuts (auto) Absolute Nucleated RBC Nucleated RBC % (auto) PT INR APTT Anion Gap Estim Creat Clear Calc Estimated GFR POC Glucose 113 Random Glucose Lactic Acid 0.9 Calcium Magnesium Total Bilirubin AST ALT Alkaline Phosphatase Troponin I High Sens 63.0 H* B-Natriuretic Peptide Total Protein Albumin Lipase Urine Color Urine Appearance Urine pH Ur Specific [place] Urine Protein Urine Glucose (UA) Urine Ketones Urine Blood Urine Nitrite Ur Leukocyte Esterase Urine RBC Urine WBC Ur Squamous Epith Cells Urine Bacteria Hyaline Casts Influenza Type A (PCR) Influenza Type B (PCR) RSV RNA Qual (PCR) SARS-CoV-2 RNA (RT-PCR) 07/10/24 07:38 MCV 92.5 MCH 30.3 MCHC 32.8 RDW 14.2 Plt Count 123 L MPV 10.5 Immature Gran % (Auto) 0.5 H Neut % (Auto) 78.0 H Lymph % (Auto) 9.6 L K[place] % (Auto) 9.9 Eos % (Auto) 1.6 Baso % (Auto) 0.4 Lymph # (Auto) 0.7 L [place] # (Auto) 0.7 Eos # (Auto) 0.1 Baso # (Auto) 0.0 Abs Immat Gran (auto) 0.04 H Absolute Neuts (auto) 5.7 Absolute Nucleated RBC 0.000 Nucleated RBC % (auto) 0.0 PT INR APTT Anion Gap 12 Estim Creat Clear Calc 33.7 Estimated GFR 41 POC Glucose Random Glucose 121 H Lactic Acid Calcium 10.2 Magnesium Total Bilirubin AST ALT Alkaline Phosphatase Troponin I High Sens B-Natriuretic Peptide Total Protein Albumin Lipase Urine Color Urine Appearance Urine pH Ur Specific [place] Urine Protein Urine Glucose (UA) Urine Ketones Urine Blood Urine Nitrite Ur Leukocyte Esterase Urine RBC Urine WBC Ur Squamous Epith Cells Urine Bacteria Hyaline Casts Influenza Type A (PCR) Influenza Type B (PCR) RSV RNA Qual (PCR) SARS-CoV-2 RNA (RT-PCR) Imaging Radiologist's Impressions: Impressions Chest X-Ray 07/09/24 17:30 IMPRESSION: 1. A large gastric hernia has increased in size over the last 2 years. 2. Patchy consolidation at the left base suspicious for aspiration pneumonia. Forearm X-Ray 07/09/24 17:30 IMPRESSION: Soft tissue swelling. No acute osseous process. Hip/Pelvis X-Ray 07/09/24 17:30 IMPRESSION: No acute process Cervical Spine CT 07/09/24 17:59 IMPRESSION: 1. No acute intracranial pathology. Chronic microvascular ischemic changes and atrophy. 2. No CT evidence of acute cervical spine fracture or traumatic subluxation. Chronic degenerative changes as described above. Head CT 07/09/24 17:59 IMPRESSION: 1. No acute intracranial pathology. Chronic microvascular ischemic changes and atrophy. 2. No CT evidence of acute cervical spine fracture or traumatic subluxation. Chronic degenerative changes as described above. 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
--- NOTE | 2024-07-10 09:54 | PC.NURSE ---
pt incontinent of urine. pericare performed. pt to CT at this time. pt waiting on bed assignment. plan of care ongoing.
[2024-07-10] MEDS: Heparin Sodium,Porcine 5,000 UNIT/ML VIAL 5000 UNIT SUBCUT ×2 (10:07→20:32)
--- NOTE | 2024-07-10 10:13 | PC.NURSE ---
pt being assessed by speech therapist. swallow evaluation being completed at this time.
--- NOTE | 2024-07-10 10:31 | PC.NURSE ---
swallow evaluation completed by speech therapist. per speech therapist, Recommend CHOPPED solids (NDD3)/NECTAR THICK liquids, pills CRUSHED in PUREE when possible, 1:1 supervision, assist with tray set up and throughout meal as needed. tech as well as oncoming nurse notified/aware.
--- NOTE | 2024-07-10 11:01 | MHC.SL.SWA ---
Speech Pathologist Impression: Risk of aspiration, oropharyngeal dysphagia Risk of Aspiration Due to: Neurological Condition History of Pneumonia Reduced Cognition Dysphasia Diet Status: Start NDD3/NTL Liquid Consistency and Strategies for Safe Swallow: Liquid Intake Recommendation: Goss Thick Liquid Intake Strategies: Small Sips No Straws Solid Food Consistency: Dietary Recommendations: Chopped/Advanced (NDD3) Additional Modifications to Solid Foods: Patient admitted for aspiration pneumonia and UTI, CXR w/ L-base patchy consolidation. Unknown whether patient has prior hx dysphagia or CLINICAL SUPPORT ASSOCIATE services. Patient denied having trouble swallowing when interviewed by CLINICAL SUPPORT ASSOCIATE. Bedside swallow exam in the ED revealed mild oropharyngeal dysphagia, marked by prolonged mastication, minimal pocketing, multiple swallow attempts, at times appearing effortful. Wet gurgly upper respiratory noise with intake of thin liquid followed by persistent throat clearing. Patient attempts to feed herself, but is very slow bringing utensils to her mouth. Recommend start on CHOPPED/ADVANCED solids (NDD3) and NECTAR THICK liquids, pills CRUSHED in PUREE when possible. Patient will need 1:1 supervision, assist with tray set up and throughout meal as needed. Oral Medication Intake: Crushed with Puree Please contact the pharmacy regarding appropriate crushable or liquid drug formulations that are available whenever modified delivery is recommended. Compensatory Strategies and Precautions to be Taken for Safe Swallow: Sitting Upright (90 deg) No Straw Small Bites and Sips Alternate Liquids/Solids Rate of Ingestion Change Oral Check Avoid Specific Foods Supervision While Eating and Drinking for Safe Swallow: Total Supervision (1:1) Foods to Avoid: Hard, tough to chew solids; sticky or chewy foods; mixed consistencies Swallowing Recommended Treatments: Compens. Strategy Educat. Recommendation for Speech: Inpatient Speech Therapy Comment: CLINICAL SUPPORT ASSOCIATE will continue to follow to monitor tolerance of modified diet, re-assess for potential upgrade/ needs for feeding Frequency/Duration: Date Range for Service Req: Timeline to reassess: Technology Sales Consultant Clinican/Clinical Fellow: No Supervisory Statement: I have reviewed and agree with the student/clinical fellow's documentation: N/A Speech Language Pathologist: Cristel Gaviria M.A., [facility]-CLINICAL SUPPORT ASSOCIATE
--- NOTE | 2024-07-10 11:03 | PHA.MEDREC ---
Addendum entered by Elliot Castrejon RPh 07/10/24 11:38: Med rec was reviewed by [facility]. Original Note: Pharmacy Consult ? Medication Reconciliation Pharmacy has completed the medication reconciliation. Completed Med Rec with list from [facility] and pharmacy claims. Got a list faxed over from [facility] only to realize it only had what pt was taking for medications but no directions at all. I compared what they had in pharmacy claims and the medications and dates all matched what was on the list provided.
[2024-07-10 11:44] VITALS: BP 144/73; PULSE 74; RESP 16; TEMP 37.1; O2SAT 92
[2024-07-10 13:47] LABS: Glucose, Whole Blood 104 mg/dL (60-115)
--- NOTE | 2024-07-10 13:49 | PC.NURSE ---
Patient to go to overflow, RN to RN phone report given to Maricruz, transport made aware, will bring over when available.
[2024-07-10 14:37] VITALS: BP 129/57; PULSE 79; RESP 22; TEMP 36.6; O2SAT 93
--- NOTE | 2024-07-10 14:43 | MHC.EDTECH ---
pt was washed up with complete bed change
[2024-07-10] MEDS: 0.9 % Sodium Chloride Flush 3 ML SYRINGE IVFLUSH (16:09)
[2024-07-10 16:56] LABS: Glucose, Whole Blood 88 mg/dL (60-115)
[2024-07-10] MEDS: Acetaminophen 325 MG TABLET 650 MG PO (17:18)
--- NOTE | 2024-07-10 18:46 | PC.NURSE ---
Patient medicated for pain as per JAN . No other complaints at this time.
[2024-07-10 20:15] LABS: Glucose, Whole Blood 88 mg/dL (60-115)
[2024-07-10] MEDS: Mirtazapine 15 MG TABLET PO (20:24)
[2024-07-10] MEDS: FLUoxetine HCl 20 MG CAPSULE 40 MG PO (20:25)
[2024-07-10] MEDS: Memantine HCl 10 MG TABLET PO (20:25)
[2024-07-10] MEDS: Ascorbic Acid 500 MG TABLET PO (20:25)
[2024-07-10 21:27] VITALS: BP 144/66; PULSE 77; RESP 18; TEMP 36.8; O2SAT 98
--- NOTE | 2024-07-11 02:39 | PC.NURSE ---
Patient resting comfortably, eyes closed, resp. even, no apparent distress. no complaints at this time.
[2024-07-11 06:00] VITALS: BP 145/71; PULSE 89; RESP 16; TEMP 36.7; O2SAT 91
[2024-07-11] MEDS: Omeprazole 40 MG CAPSULE.DR PO (06:08)
[2024-07-11 06:10] LABS: Hematocrit 41.8 % (37.0-47.0); Hemoglobin 13.8 g/dl (12.0-16.0); Mean Corpuscular Hemoglobin 30.3 pg (27.0-33.0); Mean Corpuscular Volume 91.7 fL (80.0-98.0); Mean Platelet Volume 10.4 fL (9.4-12.3); Platelet Count 133 X10*3/uL (160-400); Red Blood Count 4.56 X10*6/uL (4.20-5.50); Red Cell Distribution Width 14.2 % (11.0-16.0); White Blood Count 5.5 X10*3/uL (4.8-10.8)
[2024-07-11 06:23] LABS: Anion Gap 11 (12-20); Blood Urea Nitrogen 20 mg/dL (9-16); Calcium 9.3 mg/dL (8.4-10.2); Carbon Dioxide 23 mmol/L (22-29); Chloride 112 mmol/L (96-108); Creatinine Clr Calc Pharmacy 41.1; Estimated Glomerular Filt Rate 52; Glucose Fasting 100 mg/dL (60-99); Magnesium 1.9 mg/dL (1.6-2.6); Sodium 142 mmol/L (135-145)
[2024-07-11 07:42] LABS: Glucose, Whole Blood 91 mg/dL (60-115)
[2024-07-11] MEDS: cefTRIAXone sodium 1 GM in 0.9 % Sodium Chloride 50 ML IV (09:36)
[2024-07-11 09:37] VITALS: BP 121/72
[2024-07-11] MEDS: Empagliflozin 10 MG TABLET PO (09:37)
[2024-07-11] MEDS: Aspirin Enteric Coated 81 MG TABLET.DR PO (09:37)
[2024-07-11] MEDS: Mirabegron 50 MG TAB.ER.24H PO (09:37)
[2024-07-11] MEDS: Memantine HCl 10 MG TABLET PO ×2 (09:37→21:05)
[2024-07-11] MEDS: Ascorbic Acid 500 MG TABLET PO ×2 (09:37→21:04)
[2024-07-11] MEDS: Donepezil HCl 10 MG TABLET PO (09:37)
[2024-07-11] MEDS: Loratadine 10 MG TABLET PO (09:37)
[2024-07-11] MEDS: amLODIPine Besylate 5 MG TABLET PO (09:37)
[2024-07-11] MEDS: Heparin Sodium,Porcine 5,000 UNIT/ML VIAL 5000 UNIT SUBCUT ×2 (09:37→21:04)
[2024-07-11] MEDS: lisinopriL 20 MG TABLET PO (09:37)
[2024-07-11] MEDS: Atorvastatin Calcium 20 MG TABLET PO (09:37)
[2024-07-11] MEDS: 0.9 % Sodium Chloride Flush 3 ML SYRINGE IVFLUSH ×2 (09:37→16:39)
--- NOTE | 2024-07-11 10:41 | MHC.CM.PN ---
Patient has Dementia;CM spoke with HCP/Granddaughter/Elena @ [phone] and addressed MATSON with her (original will be mailed to Elena and a copy will be placed on the chart). Patient lives alone in an apartment, uses a walker and receives 6 hours/day of [employer] hours. PT is recommending STR and first choice is [facility]; CM has initiated and will follow for dc planning. PCP is Dr. Myah mccoy.
--- NOTE | 2024-07-11 11:14 | PC.NURSE ---
This RN resumed care of patient at 0700, she has worked with speech/ this morning has been able to take pills whole with no issues. Call oliver within reach at this time.
--- NOTE | 2024-07-11 11:46 | MHC.CM.PN ---
[facility] does not have any bed availability and Family does not want [facility]; hoping for bed offer from [facility] and CM will continue to follow.
[2024-07-11 11:52] LABS: Glucose, Whole Blood 146 mg/dL (60-115)
--- NOTE | 2024-07-11 11:52 | P.PNIM_ITS ---
Subjective Subjective Date of Service: 07/11/24 Interval History: feeling better Physical Exam 2 Vital Signs: Vital Signs: Last Vital Signs Temp 98.0 F 07/11/24 06:00 Pulse 89 07/11/24 06:00 Resp 16 07/11/24 06:00 BP 121/72 07/11/24 09:37 Pulse Ox 91 L 07/11/24 06:00 O2 Del Method Room Air 07/11/24 06:00 O2 Flow Rate 2 07/09/24 16:55 BMI result Body Mass Index 35.4 General: AO X 3, no acute distress Resp: CTA bilateral, no accessory muscles used CVS: S1,S2,RRR GI: soft, non tender, non distended Neuro: motor grossly intact, alert Psych: appropriate affect, appropriate insight Objective Data Active Medications Acetaminophen (Acetaminophen 325 Mg Tablet) 650 mg PO Q6H PRN PRN Reason: Pain, Mild (Pain Scale 1-3), fever or headache Last Admin: 07/10/24 17:18 Dose: 650 mg Documented By: AUTUMN Amlodipine Besylate (Amlodipine Besylate 5 Mg Tablet) 5 mg PO DAILY [facility]; Protocol Last Admin: 07/11/24 09:37 Dose: 5 mg Documented By: DINESH Ascorbic Acid (Ascorbic Acid 500 Mg Tablet) 500 mg PO BID [facility] Last Admin: 07/11/24 09:37 Dose: 500 mg Documented By: DINESH Aspirin (Aspirin Enteric Coated 81 Mg Tablet.) 81 mg PO DAILY [facility] Last Admin: 07/11/24 09:37 Dose: 81 mg Documented By: DINESH Atorvastatin Calcium (Atorvastatin Calcium 20 Mg Tablet) 20 mg PO DAILY [facility] Last Admin: 07/11/24 09:37 Dose: 20 mg Documented By: DINESH Calcium Carbonate (Calcium Carbonate 750 Mg Tab.Chew) 750 mg PO Q4H PRN PRN Reason: Heartburn Donepezil HCl (Donepezil Hcl 10 Mg Tablet) 10 mg PO DAILY [facility] Last Admin: 07/11/24 09:37 Dose: 10 mg Documented By: DINESH Empagliflozin (Empagliflozin 10 Mg Tablet) 10 mg PO DAILY [facility] Last Admin: 07/11/24 09:37 Dose: 10 mg Documented By: DINESH Fluoxetine HCl (Fluoxetine Hcl 20 Mg Capsule) 40 mg PO BEDTIME [facility] Last Admin: 07/10/24 20:25 Dose: 40 mg Documented By: MICHAEL Heparin Sodium (Porcine) (Heparin Sodium,Porcine 5,000 Unit/Ml Vial) 5,000 unit SUBCUT Q12H [facility] Last Admin: 07/11/24 09:37 Dose: 5,000 unit Documented By: DINESH Ceftriaxone Sodium 1 gm/ (Sodium Chloride) 50 mls @ 100 mls/hr IV Q24H [facility] Last Infusion: 07/11/24 10:28 Dose: Infused Documented By: DINESH Lisinopril (Lisinopril 20 Mg Tablet) 20 mg PO DAILY [facility]; Protocol Last Admin: 07/11/24 09:37 Dose: 20 mg Documented By: DINESH Loratadine (Loratadine 10 Mg Tablet) 10 mg PO DAILY [facility] Last Admin: 07/11/24 09:37 Dose: 10 mg Documented By: DINESH Magnesium Hydroxide (Milk Of Magnesia 30 Ml Oral.Susp) 30 ml PO DAILY PRN PRN Reason: Constipation Melatonin (Melatonin 3 Mg Tablet) 6 mg PO BEDTIME PRN PRN Reason: Insomnia Memantine (Memantine Hcl 10 Mg Tablet) 10 mg PO BID [facility] Last Admin: 07/11/24 09:37 Dose: 10 mg Documented By: DINESH Mirabegron (Mirabegron 50 Mg Tab.Er.24h) 50 mg PO DAILY [facility] Last Admin: 07/11/24 09:37 Dose: 50 mg Documented By: DINESH Mirtazapine (Mirtazapine 15 Mg Tablet) 15 mg PO BEDTIME [facility] Last Admin: 07/10/24 20:24 Dose: 15 mg Documented By: MICHAEL Montelukast Sodium (Montelukast Sodium 10 Mg Tablet) 10 mg PO BEDTIME [facility] Omeprazole (Omeprazole 40 Mg Capsule.Dr) 40 mg PO DAILY@0630 [facility] Last Admin: 07/11/24 06:08 Dose: 40 mg Documented By: OUMAR Sodium Chloride (0.9 % Sodium Chloride Flush 3 Ml Syringe) 3 ml IVFLUSH QSHIFT [facility] Last Admin: 07/11/24 09:37 Dose: 3 ml Documented By: DINESH Labs 07/11/24 05:59 07/11/24 05:59 Labs: Laboratory Results - last 24 hr 07/10/24 07/10/24 07/10/24 13:38 16:50 20:06 MCV MCH MCHC RDW Plt Count MPV Absolute Nucleated RBC Nucleated RBC % (auto) Anion Gap Estim Creat Clear Calc Estimated GFR POC Glucose 104 88 88 Fasting Glucose Calcium Magnesium 07/11/24 07/11/24 05:59 07:26 MCV 91.7 MCH 30.3 MCHC 33.0 RDW 14.2 Plt Count 133 L MPV 10.4 Absolute Nucleated RBC 0.000 Nucleated RBC % (auto) 0.0 Anion Gap 11 L Estim Creat Clear Calc 41.1 Estimated GFR 52 POC Glucose 91 Fasting Glucose 100 H Calcium 9.3 D Magnesium 1.9 Microbiology Microbiology Results: Microbiology 07/10/24 07:38 Blood Culture - Preliminary Blood - Venous No growth after 24 hours. 07/10/24 07:31 Blood Culture - Preliminary Blood - Venous No growth after 24 hours. 07/09/24 19:43 Urine Culture - Final Urine Catheterized - Chance Catheter Escherichia coli Assessment and Plan (1) Urinary tract infection: Status: Acute Plan 89F PMH CKD III, history of CVA, vascular/alzheimers dementia, severe , cirrhosis, htn presented with fall, found to have aspiration and uti falls likely due to weakness from UTI rocephin, culture with sensitive ecoli pt recomemdning str troponinemia flat, doubt acs, no chest pain, likely strain from above ?aspiratoin retail office manager appreciated ndd3, nectar thick abd pain resolved history of cva asa, statin htn amldopine cirrhosis appears compensated ckd 3 stable severe as stable alzheimers and vascular dementia stable dvt prophylaxis - hep sq dnr/dni - molst reviewed reason for continued hospitalization:safe dispo Quality Stroke Does the patient have a stroke diagnosis?: No VTE Prior VTE?: No VTE Risk Level:: Medical - moderate - high VTE Device Contraindication: Treatment Not Indicated VTE Drug Contraindication: N/A - Med Ordered
--- NOTE | 2024-07-11 12:25 | MHC.CM.PN ---
[facility] does not have a bed. Additional referrals have been made to [facility] and [facility]; CM awaits responses.
--- NOTE | 2024-07-11 12:31 | MHC.CM.PN ---
[facility] has no beds available.
--- NOTE | 2024-07-11 15:04 | MHC.CM.PN ---
[facility] has offered Patient a bed and patient/family has accepted it. SNF will initiate auth with [facility] today. CM will follow.
--- NOTE | 2024-07-11 15:23 | MHC.SL.SWA ---
Speech Pathologist Impression: Risk of Aspiration Due to: Neurological Condition History of Pneumonia Reduced Cognition Dysphasia Diet Status: Recommend UPGRADE liquids to Thin, continue on Chopped/Advanced (NDD3) pills whole in puree. Liquid Consistency and Strategies for Safe Swallow: Liquid Intake Recommendation: Thin Liquid Intake Strategies: Small Sips No Straws Solid Food Consistency: Dietary Recommendations: Chopped/Advanced (NDD3) Additional Modifications to Solid Foods: Patient requires assistance with setting up tray, orientation to foods and liquids and utensils on tray, as well as covering chest with towel to catch spills. Patient may require/benefit from full supervision during meals to be cues to take smaller bites, sips. Oral Medication Intake: Whole with Puree Please contact the pharmacy regarding appropriate crushable or liquid drug formulations that are available whenever modified delivery is recommended. Compensatory Strategies and Precautions to be Taken for Safe Swallow: Sitting Upright (90 deg) No Straw Liquids from Cup Alternate Liquids/Solids Rate of Ingestion Change Supervision While Eating and Drinking for Safe Swallow: Intermittent Supervision Foods to Avoid: Hard, tough to chew solids; sticky or chewy foods; mixed consistencies Swallowing Recommended Treatments: Compens. Strategy Educat. Recommendation for Speech: Inpatient Speech Therapy Comment: Patient seen at breakfast this morning in the ED Overflow area. RN reported that she had patient's breakfast tray, RN assisted [employer]TAIN [employer] with repositioning patient so that she was seated comfortably upright in bed for meal. [employer] then assisted patient with meal of chopped pancakes, scrambled eggs, sliced bananas. Patient with some general orientation and assistance was able to feed self, occasionally noted to take too large bites, but otherwise, producing timely phases of swallow with no clinical signs of aspiration on this chopped diet. No liquids came with the tray, patient asked for milk [employer] retrieved a milk and a nectar thick cup of cranberry juice for liquid trials. Patient given cup with milk, with patient taking appropriate small sips from cup, producing a timely swallow, no coughing change in vocal quality while consuming full cup of milk. Patient was offered NT cranberry juice, patient took a sip, the grimaced saying she did not like it. Patient noted to speak both Sinhala and Hungarian during this session, and was communicated with in both languages. Recommend UPGRADE liquids to Thin (by cup sip only, no straws), continue on Chopped/Advanced (NDD3) pills whole in puree. [employer] made diet adjustment in alfredo, RN aware. Frequency/Duration: Date Range for Service Req: Timeline to reassess: Lead Php Developer Clinican/Clinical Fellow: No Supervisory Statement: I have reviewed and agree with the student/clinical fellow's documentation: N/A Speech Language Pathologist: Cristel Gaviria M.A., CCC-[employer]
[2024-07-11 16:37] VITALS: BP 168/78; PULSE 86; RESP 18; TEMP 36.2; O2SAT 92
[2024-07-11 16:44] VITALS: BMI 35.4
[2024-07-11 16:45] LABS: Glucose, Whole Blood 101 mg/dL (60-115)
[2024-07-11 19:27] VITALS: BP 133/60; PULSE 88; RESP 20; TEMP 36.2; O2SAT 92
[2024-07-11 20:00] LABS: Glucose, Whole Blood 141 mg/dL (60-115)
[2024-07-11] MEDS: FLUoxetine HCl 20 MG CAPSULE 40 MG PO (21:04)
[2024-07-11] MEDS: Montelukast Sodium 10 MG TABLET PO (21:04)
[2024-07-11] MEDS: Mirtazapine 15 MG TABLET PO (21:04)
[2024-07-11 23:45] VITALS: BP 114/56; PULSE 84; RESP 16; TEMP 36.2; O2SAT 94
[2024-07-12] MEDS: 0.9 % Sodium Chloride Flush 3 ML SYRINGE IVFLUSH ×2 (01:44→08:37)
[2024-07-12 03:12] VITALS: BP 137/63; PULSE 76; RESP 16; TEMP 36.4; O2SAT 94
[2024-07-12] MEDS: Omeprazole 40 MG CAPSULE.DR PO (06:26)
--- NOTE | 2024-07-12 06:37 | PC.NURSE ---
This pattern chart writer assumed care of this patient at 23:00. Please see shift assessments and tasks for full details. Handoff report given.
[2024-07-12 07:10] VITALS: BP 140/63; PULSE 70; RESP 16; TEMP 36.1; O2SAT 96
[2024-07-12 07:23] LABS: Glucose, Whole Blood 108 mg/dL (60-115)
[2024-07-12] MEDS: Heparin Sodium,Porcine 5,000 UNIT/ML VIAL 5000 UNIT SUBCUT (08:31)
[2024-07-12 08:33] VITALS: BP 153/71
[2024-07-12] MEDS: lisinopriL 20 MG TABLET PO (08:33)
[2024-07-12] MEDS: Mirabegron 50 MG TAB.ER.24H PO (08:35)
[2024-07-12] MEDS: Memantine HCl 10 MG TABLET PO (08:35)
[2024-07-12] MEDS: Empagliflozin 10 MG TABLET PO (08:35)
[2024-07-12] MEDS: Atorvastatin Calcium 20 MG TABLET PO (08:36)
[2024-07-12] MEDS: Donepezil HCl 10 MG TABLET PO (08:36)
[2024-07-12] MEDS: Ascorbic Acid 500 MG TABLET PO (08:36)
[2024-07-12] MEDS: Loratadine 10 MG TABLET PO (08:36)
[2024-07-12] MEDS: Aspirin Enteric Coated 81 MG TABLET.DR PO (08:36)
[2024-07-12] MEDS: amLODIPine Besylate 5 MG TABLET PO (08:36)
[2024-07-12] MEDS: cefTRIAXone sodium 1 GM in 0.9 % Sodium Chloride 50 ML IV (08:42)
[2024-07-12 11:18] LABS: Glucose, Whole Blood 133 mg/dL (60-115)
--- NOTE | 2024-07-12 11:22 | P.PNIM_ITS ---
Subjective Subjective Date of Service: 07/12/24 Interval History: feeling better Physical Exam 2 Vital Signs: Vital Signs: Last Vital Signs Temp 96.9 F 07/12/24 07:10 Pulse 70 07/12/24 07:10 Resp 16 07/12/24 07:10 BP 153/71 H 07/12/24 08:33 Pulse Ox 96 07/12/24 07:10 O2 Del Method Room Air 07/12/24 07:10 O2 Flow Rate 2 07/09/24 16:55 BMI result Body Mass Index 35.4 General: AO X 3, no acute distress Resp: CTA bilateral, no accessory muscles used CVS: S1,S2,RRR GI: soft, non tender, non distended Neuro: motor grossly intact, alert Psych: appropriate affect, appropriate insight Objective Data Active Medications Acetaminophen (Acetaminophen 325 Mg Tablet) 650 mg PO Q6H PRN PRN Reason: Pain, Mild (Pain Scale 1-3), fever or headache Last Admin: 07/10/24 17:18 Dose: 650 mg Documented By: AUTUMN Amlodipine Besylate (Amlodipine Besylate 5 Mg Tablet) 5 mg PO DAILY [facility]; Protocol Last Admin: 07/12/24 08:36 Dose: 5 mg Documented By: ALPA Ascorbic Acid (Ascorbic Acid 500 Mg Tablet) 500 mg PO BID [facility] Last Admin: 07/12/24 08:36 Dose: 500 mg Documented By: ALPA Aspirin (Aspirin Enteric Coated 81 Mg Tablet.) 81 mg PO DAILY [facility] Last Admin: 07/12/24 08:36 Dose: 81 mg Documented By: ALPA Atorvastatin Calcium (Atorvastatin Calcium 20 Mg Tablet) 20 mg PO DAILY [facility] Last Admin: 07/12/24 08:36 Dose: 20 mg Documented By: ALPA Calcium Carbonate (Calcium Carbonate 750 Mg Tab.Chew) 750 mg PO Q4H PRN PRN Reason: Heartburn Donepezil HCl (Donepezil Hcl 10 Mg Tablet) 10 mg PO DAILY [facility] Last Admin: 07/12/24 08:36 Dose: 10 mg Documented By: ALPA Empagliflozin (Empagliflozin 10 Mg Tablet) 10 mg PO DAILY [facility] Last Admin: 07/12/24 08:35 Dose: 10 mg Documented By: ALPA Fluoxetine HCl (Fluoxetine Hcl 20 Mg Capsule) 40 mg PO BEDTIME [facility] Last Admin: 07/11/24 21:04 Dose: 40 mg Documented By: DAVE Heparin Sodium (Porcine) (Heparin Sodium,Porcine 5,000 Unit/Ml Vial) 5,000 unit SUBCUT Q12H [facility] Last Admin: 07/12/24 08:31 Dose: 5,000 unit Documented By: ALPA Ceftriaxone Sodium 1 gm/ (Sodium Chloride) 50 mls @ 100 mls/hr IV Q24H [facility] Last Infusion: 07/12/24 09:26 Dose: Infused Documented By: LAPA Lisinopril (Lisinopril 20 Mg Tablet) 20 mg PO DAILY [facility]; Protocol Last Admin: 07/12/24 08:33 Dose: 20 mg Documented By: ALPA Loratadine (Loratadine 10 Mg Tablet) 10 mg PO DAILY [facility] Last Admin: 07/12/24 08:36 Dose: 10 mg Documented By: ALPA Magnesium Hydroxide (Milk Of Magnesia 30 Ml Oral.Susp) 30 ml PO DAILY PRN PRN Reason: Constipation Melatonin (Melatonin 3 Mg Tablet) 6 mg PO BEDTIME PRN PRN Reason: Insomnia Memantine (Memantine Hcl 10 Mg Tablet) 10 mg PO BID [facility] Last Admin: 07/12/24 08:35 Dose: 10 mg Documented By: ALPA Mirabegron (Mirabegron 50 Mg Tab.Er.24h) 50 mg PO DAILY [facility] Last Admin: 07/12/24 08:35 Dose: 50 mg Documented By: ALPA Mirtazapine (Mirtazapine 15 Mg Tablet) 15 mg PO BEDTIME [facility] Last Admin: 07/11/24 21:04 Dose: 15 mg Documented By: DAVE Montelukast Sodium (Montelukast Sodium 10 Mg Tablet) 10 mg PO BEDTIME [facility] Last Admin: 07/11/24 21:04 Dose: 10 mg Documented By: DAVE Omeprazole (Omeprazole 40 Mg Capsule.Dr) 40 mg PO DAILY@0630 [facility] Last Admin: 07/12/24 06:26 Dose: 40 mg Documented By: AMIE Sodium Chloride (0.9 % Sodium Chloride Flush 3 Ml Syringe) 3 ml IVFLUSH QSHIFT [facility] Last Admin: 07/12/24 08:37 Dose: 3 ml Documented By: ALPA Labs 07/11/24 05:59 07/11/24 05:59 Labs: Laboratory Results - last 24 hr 07/11/24 07/11/24 07/11/24 11:39 16:41 19:56 POC Glucose 146 H 101 141 H 07/12/24 07/12/24 07:13 11:10 POC Glucose 108 133 H Microbiology Microbiology Results: Microbiology 07/10/24 07:38 Blood Culture - Preliminary Blood - Venous No growth after 48 hours. 07/10/24 07:31 Blood Culture - Preliminary Blood - Venous No growth after 48 hours. 07/09/24 19:43 Urine Culture - Final Urine Catheterized - Chance Catheter Escherichia coli Assessment and Plan (1) Urinary tract infection: Status: Acute Plan 89F PMH CKD III, history of CVA, vascular/alzheimers dementia, severe , cirrhosis, htn presented with fall, found to have aspiration and uti falls likely due to weakness from UTI rocephin, culture with sensitive ecoli pt recomemdning str troponinemia flat, doubt acs, no chest pain, likely strain from above ?aspiratoin group director experience appreciated ndd3, nectar thick abd pain resolved history of cva asa, statin htn amldopine cirrhosis appears compensated ckd 3 stable severe as stable alzheimers and vascular dementia stable dvt prophylaxis - hep sq dnr/dni - molst reviewed reason for continued hospitalization:safe dispo Quality Stroke Does the patient have a stroke diagnosis?: No VTE Prior VTE?: No VTE Risk Level:: Medical - moderate - high VTE Device Contraindication: Treatment Not Indicated VTE Drug Contraindication: N/A - Med Ordered
--- NOTE | 2024-07-12 11:25 | PM.DS ---
DS: Providers Provider Date of Service: 07/12/24 Date of admission: 07/10/24 09:22 Date of discharge: 07/12/24 Primary care physician: Myah Singh MD DS: Diagnosis Discharge Diagnosis (1) Urinary tract infection: Status: Acute DS: Summary Hospital Course Hospital Course: from initial hpi: 89F PMH CKD III, history of CVA, vascular/alzheimers dementia, severe , cirrhosis, htn presented with fall. patient is poor historian, but aware she is in hospital and reports she fell today. reports she tripped, and was not lightheaded and did not pass out. denies trauma, but is reporting some abd pain. family reporting urinary incontinance and frequency. in ED cxr with possible aspiration. ua positive. no sepsis, but low grade rectal temp of 100.5. hospital course: Patient was admitted for falls likely due to weakness from urinary tract infection. Urine culture grew sensitive E coli patient was treated with ceftriaxone and will be discharged on 5 more days of cefuroxime. Was seen by physical therapy recommended short-term rehab. On admission patient had some mildly elevated troponin, likely strain from urinary tract infection and falls, no evidence of Acs. Patient was seen by speech therapy for possible aspiration. They recommended ndd3 solids, and thin liquids. For history of CVA was continue aspirin statin. For hypertension was continued on amlodipine. Her liver cirrhosis appears compensated. For CKD 3 she remained stable. For severe aortic stenosis remained stable. For Alzheimer's and vascular dementia she remained stable. Patient will be discharged long-term facility. Time Attestation Discharge Coordination Time (in mins): 34 Quality: Safe Use of Opioids Does Pt have an Active Cancer Diagnosis on the Problem List?: No Quality: Stroke Does the patient have a stroke diagnosis?: No Physical Exam Vital Signs: Vital Signs: Last Vital Signs Temp 96.9 F 07/12/24 07:10 Pulse 70 07/12/24 07:10 Resp 16 07/12/24 07:10 BP 153/71 H 07/12/24 08:33 Pulse Ox 96 07/12/24 07:10 O2 Del Method Room Air 07/12/24 07:10 O2 Flow Rate 2 07/09/24 16:55 BMI result Body Mass Index 35.4 General: AO X 3, no acute distress Resp: CTA bilateral, no accessory muscles used CVS: S1,S2,RRR GI: soft, non tender, non distended Neuro: motor grossly intact, alert Psych: appropriate affect, appropriate insight DS: Data Data Completed and Pending Completed studies during hospitalization [Text1]: Procedures Introduction of Remdesivir Anti-infective into Peripheral Vein, Percutaneous Approach, [employer] 5 (12/01/21) Labs on day of discharge: Laboratory Results - last 24 hr 07/11/24 07/11/24 07/11/24 11:39 16:41 19:56 POC Glucose 146 H 101 141 H 07/12/24 07/12/24 07:13 11:10 POC Glucose 108 133 H Preliminary micro results at discharge 07/10/24 07:38 Blood Culture - Preliminary Blood - Venous No growth after 48 hours. 07/10/24 07:31 Blood Culture - Preliminary Blood - Venous No growth after 48 hours. Discharge Plan Discharge Anticipated Discharge Date/Time: 07/12/24 11:23 Patient Disposition: [facility] Discharge Diagnosis: uti Referrals: Myah Singh MD [Primary Care Provider] - 1 Week Discharge Medications: New cefuroxime axetil 500 mg tablet 500 mg PO BID Qty: 10 0RF Continued calcium carbonate-vitamin D3 [Calcium 600 + D(3)] 600 mg-5 mcg (200 unit) tablet 1 tab PO BID ascorbic acid (vitamin C) [Vitamin C] 500 mg tablet 1 tab PO BID mirtazapine 15 mg tablet 1 tab PO BEDTIME ferrous sulfate 325 mg (65 mg iron) tablet,delayed release (DR/EC) 1 tab PO BID fluoxetine 40 mg capsule 40 mg PO BEDTIME donepezil 10 mg tablet 10 mg PO DAILY memantine 10 mg tablet 10 mg PO BID montelukast 10 mg tablet 10 mg PO DAILY lisinopril 20 mg tablet 20 mg PO DAILY amlodipine 5 mg tablet 5 mg PO DAILY aspirin 81 mg tablet,delayed release (DR/EC) 81 mg PO DAILY cetirizine 5 mg tablet 5 mg PO DAILY omeprazole 40 mg capsule,delayed release(DR/EC) 40 mg PO DAILY mirabegron [Myrbetriq] 50 mg tablet extended release 24 hr 50 mg PO DAILY docusate sodium 100 mg capsule 100 mg PO BID Jardiance 10 mg tablet 10 mg PO DAILY atorvastatin 20 mg tablet 20 mg PO DAILY Discharge Orders: Discharge Order (Routine); Ordered 07/12/24 Ordered By: Kvng Jesin Diet: ndd3 solids, thin liquid Activity on Discharge: As tolerated Stand Alone Forms: Patient Portal Discharge page Print Language: Mohawk Care Plan Goals: recovery Health Concerns: uti, aspiraiton Plan of Treatment: 5 more days ceftin Assessment: see above Patient Instructions: Urinary Tract Infection in Women (ED)
[2024-07-12 11:32] VITALS: BP 142/61; PULSE 80; RESP 16; TEMP 36.3; O2SAT 92
[2024-07-12 11:58] LABS: Glucose, Whole Blood 111 mg/dL (60-115)
--- NOTE | 2024-07-12 12:03 | MHC.CM.PN ---
IMM 07/12/24 via phone to HCP. She agrees with discharge. She stated that she will bring the pts CPAP to the facility. Patient is discharged today. She will transfer to [facility] for STR. She will transport via BLS. Transport is scheduled for 5pm continuous pickling line pickler.
--- NOTE | 2024-07-12 14:40 | MHC.SL.SWA ---
Speech Pathologist Impression: Risk of aspiration, oral phase dysphagia Risk of Aspiration Due to: Neurological Condition History of Pneumonia Reduced Cognition Dysphasia Diet Status: No change Liquid Consistency and Strategies for Safe Swallow: Liquid Intake Recommendation: Thin Liquid Intake Strategies: Small Sips Solid Food Consistency: Dietary Recommendations: Chopped/Advanced (NDD3) Oral Medication Intake: Whole with Puree Please contact the pharmacy regarding appropriate crushable or liquid drug formulations that are available whenever modified delivery is recommended. Compensatory Strategies and Precautions to be Taken for Safe Swallow: Sitting Upright (90 deg) Small Bites and Sips Alternate Liquids/Solids Rate of Ingestion Change Avoid Specific Foods Supervision While Eating and Drinking for Safe Swallow: Total Supervision (1:1) Foods to Avoid: Hard, tough to chew solids; sticky or chewy foods; mixed consistencies Swallowing Recommended Treatments: Compens. Strategy Educat. Recommendation for Speech: Inpatient Speech Therapy Comment: LINE TENDER will continue to follow to monitor tolerance of modified diet, re-assess for potential upgrade/ needs for feeding Frequency/Duration: Date Range for Service Req: Timeline to reassess: Guest Services Associate Clinican/Clinical Fellow: No Supervisory Statement: I have reviewed and agree with the student/clinical fellow's documentation: N/A Speech Language Pathologist: Cristel Gaviria M.A., CCC-LINE TENDER
== END 2024-07-12 14:47 | disposition skilled nursing facility (03) ==
LOC: HO.ED 07-10 08:11 → HO.EDOVER 07-10 09:31 → HO.S3 07-11 15:19
PROVIDERS: Emergency Medicine; Physician Assistant; Admitting Provider Internal Medicine; Emergency Provider Emergency Medicine; PCP Family Medicine; Visit Provider Internal Medicine
DX: N30.00 Acute cystitis without hematuria (principal); S09.90XA Unspecified injury of head, initial encounter; W19.XXXA Unspecified fall, initial encounter; Y93.9 Activity, unspecified; Y92.9 Unspecified place or not applicable; Y99.9 Unspecified external cause status; K74.60 Unspecified cirrhosis of liver; I45.10 Unspecified right bundle-branch block; R53.1 Weakness; R50.9 Fever, unspecified; R60.0 Localized edema; M79.632 Pain in left forearm; M25.552 Pain in left hip; M54.2 Cervicalgia; I12.9 Hypertensive chronic kidney disease with stage 1 through stage 4 chronic kidney disease, or unspecified chronic kidney disease; N18.30 Chronic kidney disease, stage 3 unspecified; E78.5 Hyperlipidemia, unspecified; Z86.73 Personal history of transient ischemic attack (TIA), and cerebral infarction without residual deficits; Z79.899 Other long term (current) drug therapy
CPT/HCPCS: 0241U; 36415; 70450; 71045; 72125; 73090; 73502; 74176; 80048; 80053; 81001; 82947; 83605; 83690; 83735; 83880; 84484; 85025; 85027; 85610; 85730; 87040; 87086; 87088; 87186; 92526; 92610; 93005; 96365; 96366; 96375; 96376; 97162; 99221; 99285; J0696; J1644; J1836; J1956

== ENCOUNTER → 2024-07-09 17:20 | Outpatient (BNV) | payer OTHER, SELFPAY | PROVIDERS: Admitting Provider Internal Medicine; Emergency Provider Emergency Medicine; PCP Family Medicine; Visit Provider Internal Medicine | DX: R94.31 Abnormal electrocardiogram [ECG] [EKG] (principal) | CPT/HCPCS: 93010 ==

== ENCOUNTER → 2024-07-10 09:22 | Outpatient (BNV) | payer OTHER, SELFPAY | PROVIDERS: Admitting Provider Internal Medicine; Emergency Provider Emergency Medicine; PCP Family Medicine; Visit Provider Internal Medicine | DX: N30.00 Acute cystitis without hematuria (principal) | CPT/HCPCS: 99223; 99232; 99239 ==

== ENCOUNTER 2024-10-02 10:10 | Emergency (ER) | payer OTHER, SELFPAY ==
[2024-10-02 10:18] VITALS: BP 135/51; BP 146/70; PULSE 69; PULSE 75; RESP 18; TEMP 37.1; O2SAT 92; O2SAT 93; BMI 27.8
[2024-10-02 11:02] LABS: MANUAL DIFF FLAG NO
[2024-10-02 11:09] LABS: Basophils Percent Auto 0.6 % (0-2); Eosinophils Absolute Auto 0.4 X10*3/uL (0.0-0.4); Eosinophils Percent Auto 6.9 % (0-4); Hematocrit 42.9 % (37.0-47.0); Hemoglobin 13.8 g/dl (12.0-16.0); Imm Gran Abs Auto 0.01 X10*3/uL (0.00-0.03); Imm Gran Pct Auto 0.2 % (0.0-0.4); Lymphocytes Absolute Auto 0.8 X10*3/uL (1.2-4.9); Lymphocytes Percent Auto 14.7 % (20-40); Mean Corpuscular HGB Conc 32.2 g/dl (31.0-35.0); Mean Corpuscular Hemoglobin 29.2 pg (27.0-33.0); Mean Corpuscular Volume 90.9 fL (80.0-98.0); Mean Platelet Volume 10.8 fL (9.4-12.3); Monocytes Absolute Auto 0.3 X10*3/uL (0.1-1.2); Monocytes Percent Auto 5.9 % (2-11); Neutrophils Absolute Auto 3.7 x10*3/uL (2.0-8.3); Neutrophils Percent Auto 71.7 % (45-73); Platelet Count 141 X10*3/uL (160-400); Red Blood Count 4.72 X10*6/uL (4.20-5.50); Red Cell Distribution Width 14.7 % (11.0-16.0); White Blood Count 5.1 X10*3/uL (4.8-10.8)
[2024-10-02 11:18] LABS: Alanine Aminotransferase 22 U/L (0-31); Albumin Level 3.4 g/dL (3.5-5.0); Alkaline Phosphatase 82 U/L (39-117); Anion Gap 14 (12-20); Aspartate Amino Transferase 25 U/L (5-31); Bilirubin Total 0.4 mg/dL (0.0-1.0); Blood Urea Nitrogen 15 mg/dL (9-16); Calcium 10.2 mg/dL (8.4-10.2); Carbon Dioxide 26 mmol/L (22-29); Chloride 108 mmol/L (96-108); Creatinine Clr Calc Pharmacy 36.9; Estimated Glomerular Filt Rate 46; Glucose Random 145 mg/dL (60-115); Potassium 4.1 mmol/L (3.3-5.1); Sodium 144 mmol/L (135-145); Total Protein 6.7 g/dL (6.5-8.0)
[2024-10-02 11:40] LABS: Influenza A PCR NEGATIVE (Negative); Influenza B PCR NEGATIVE (Negative); Resp Syncy Virus RNA Qual PCR NEGATIVE (Negative); SARS COV2 PCR INHOUSE NEGATIVE (Negative)
--- NOTE | 2024-10-02 11:54 | PC.NURSE ---
Pt up oob to commode with steady gait.
[2024-10-02 11:57] VITALS: BP 162/59; PULSE 72; RESP 16; TEMP 36.7; O2SAT 95
[2024-10-02 14:13] VITALS: BP 101/45; PULSE 65; RESP 16; TEMP 36.8; O2SAT 93
--- NOTE | 2024-10-02 14:16 | MHC.EDTECH ---
pt cleaned, bed changed, and repositioned
[2024-10-02 14:38] LABS: Appearance Urine Clear; Color Urine Yellow; Glucose Urine UA Negative (Negative); Leukocyte Esterase Urine Trace (Negative); Nitrite Urine Positive (Negative); PH 6.5 (5.0-9.0); Specific Gravity - Urine 1.015 (1.005-1.025); UMIC TRIGGER UACC YES; Urine Blood Negative (Negative); Urine Ketones Negative (Negative); Urine Protein Negative (Neg-Trace)
[2024-10-02 14:41] LABS: Bacteria Urine 4+ (None Seen); Hyaline Casts Urine 0-2 /LPF (0-2); RBC Urine 0-2 /HPF (0-2); Squamous Epithelial Cell Urine 0-2 /HPF (0-2); UACC Culture Trigger YES; WBC Urine 0-5 /HPF (0-5)
--- NOTE | 2024-10-02 14:54 | ED_ITS ---
HPI - General Adult General Chief complaint: General Medical Stated complaint: WEAKNESS X 2 DAYS,?UTI,HX DEMENTIA PER EMS Time Seen by Provider: 10/02/24 14:53 Source: patient and family Mode of arrival: EMS Limitations: language barrier and other (Dementia) History of Present Illness HPI narrative: This is an 89-year-old woman with a past medical history of dementia, CKD, history of CVA, hypertension who presents for evaluation weakness and concern for urinary tract infection. 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 Patient reports that her whole body hurts. She states that this is always the case. She states no fevers or chills. She reports lower abdominal discomfort for the last few days. She states no vomiting. She states no chest pain or dyspnea. She states no trauma or falls. She states no dysuria or urinary frequency/urgency. She states no flank pain. Related Data Home Medications ?Medication ?Instructions ?Recorded ?Confirmed ascorbic acid (vitamin C) 500 mg 1 tab PO BID 11/27/21 07/10/24 tablet (Vitamin C) calcium carbonate 600 mg-vitamin 1 tab PO BID 11/27/21 07/10/24 D3 5 mcg (200 unit) tablet (Calcium 600 + D(3)) ferrous sulfate 325 mg (65 mg 1 tab PO BID 11/27/21 07/10/24 iron) tablet,delayed release mirtazapine 15 mg tablet 1 tab PO BEDTIME 11/27/21 07/10/24 amlodipine 5 mg tablet 5 mg PO DAILY 01/23/23 07/10/24 aspirin 81 mg tablet,delayed 81 mg PO DAILY 01/23/23 07/10/24 release cetirizine 5 mg tablet 5 mg PO DAILY 01/23/23 07/10/24 donepezil 10 mg tablet 10 mg PO DAILY 01/23/23 07/10/24 empagliflozin 10 mg tablet 10 mg PO DAILY 01/23/23 07/10/24 (Jardiance) fluoxetine 40 mg capsule 40 mg PO BEDTIME 01/23/23 07/10/24 lisinopril 20 mg tablet 20 mg PO DAILY 01/23/23 07/10/24 memantine 10 mg tablet 10 mg PO BID 01/23/23 07/10/24 montelukast 10 mg tablet 10 mg PO DAILY 01/23/23 07/10/24 omeprazole 40 mg capsule,delayed 40 mg PO DAILY 01/23/23 07/10/24 release docusate sodium 100 mg capsule 100 mg PO BID 05/24/23 07/10/24 atorvastatin 20 mg tablet 20 mg PO DAILY 07/27/23 07/10/24 mirabegron 50 mg tablet,extended 50 mg PO DAILY 07/10/24 07/10/24 release 24 hr (Myrbetriq) Previous Rx's ?Medication ?Instructions ?Recorded cefuroxime axetil 500 mg tablet 500 mg PO BID #10 tabs 07/12/24 nitrofurantoin 100 mg PO BID 5 days #10 caps 10/02/24 monohydrate/macrocrystals 100 mg capsule (Macrobid) Allergies Allergy/AdvReac Type Severity Reaction Status Date / Time ceftazidime [Ceftazidime] Allergy Mild UNKNOWN Verified 10/02/24 10:20 benzocaine [Benzocaine] Allergy Unknown UNKNOWN Verified 10/02/24 10:20 butamben [From Cetacaine] Allergy Unknown UNKNOWN Verified 10/02/24 10:20 metoclopramide [From Reglan] Allergy Unknown UNKNOWN Verified 10/02/24 10:20 morphine [Morphine] Allergy Unknown SWELLING Verified 10/02/24 10:20 tetracaine [From Cetacaine] Allergy Unknown UNKNOWN Verified 10/02/24 10:20 Review of Systems 2 Review of Systems: ROS as per HPI [facility] Past Medical History Medical History Cirrhosis of liver DONAVAN (obstructive sleep apnea) Diabetes Allergic dermatitis Hives CVA (cerebral vascular accident) Non-alcoholic micronodular cirrhosis of liver CKD (chronic kidney disease) Dementia Hypertension Surgical History Hx of cholecystectomy No pertinent past surgical history Family History Family History Father No problems noted. Mother No problems noted. Social History Social History Housing: Apartment Do you presently have visiting nurse or other home services: No Alcohol intake: current Alcohol intake frequency: does not drink Patient Tobacco Use Status: Former Tobacco user Smoked in Last 30 Days: No Second Hand Smoke Exposure: No Use of substances other than those prescribed or required for medical reasons: No Advance Directives: Yes Advance Directives on File: Yes Advance Directives Date on File: 12/07/21 Do you have a plan to hurt others: No Plan service: No Physical Exam ED Vital Signs: Vital Signs - 24 hr 10/02/24 10:18 10/02/24 11:57 10/02/24 14:13 Temperature 98.7 F 98.1 F 98.3 F Pulse Rate 69 72 65 Respiratory Rate 18 16 16 Blood Pressure 135/51 L 162/59 H 101/45 L Pulse Oximetry 92 95 93 Oxygen Delivery Method Room Air Room Air Room Air BMI result Body Mass Index 27.8 Gen: NAD, AOx3 HEENT: NCAT, EOMI, normal conjunctiva CV: RRR Pulm: CTAB, no increased work of breathing GI: Soft, ND, no rebound, guarding or rigidity, + mild suprapubic tenderness to palpation, no bilateral CVAT Neuro: Grossly non focal Medications Administered Discontinued Medications Generic Name Dose Route Start Last Admin Trade Name Freq PRN Reason Stop Dose Admin Nitrofurantoin Macrocrystals 100 mg 10/02/24 15:00 10/02/24 15:06 Nitrofurantoin Monohyd/M-Cryst 100 Mg Capsule PO 10/02/24 15:01 100 mg ONCE ONE Administration Medical Decision Making Medical Decision Making MDM Narrative: Differential diagnosis includes, but is not limited to urinary tract infection, acute kidney injury, electrolyte abnormality, viral syndrome. Patient is afebrile and hemodynamically stable on room air. Exam is notable for suprapubic tenderness to palpation. I reviewed urinalysis as below and given history and exam as above this is most consistent with cystitis. I reviewed urine cultures as below and for this reason patient is provided nitrofurantoin here in the emergency room. Given lack of systemic symptoms, flank pain or costovertebral angle tenderness to palpation have very low clinical suspicion for pyelonephritis and suspect this is appropriate antibiotic based on previous urine cultures. I discussed patient's case with the patient's permission with her granddaughter, Elena, why called at the listed preferred phone number [phone] who states that patient is still having physical therapy as an outpatient at her home and feels comfortable taking the patient home at this time to continue with oral antibiotics for treatment of her urinary tract infection. Elena stated that she would provide Sienna a ride home. She requests that the prescription be sent to the [facility] on [address] in [place], [place]. On re-examination, patient is well-appearing and in no acute distress. There is no indication for further emergent evaluation in this otherwise well-appearing patient as above. ?Patient is provided written and verbal instructions, educational materials, recommendations for outpatient follow-up, prescription for nitrofurantoin, strict return precautions and teach back is performed. ?Patient states understanding and agreement with plan of care. ?Patient is discharged home in stable and improved condition. Review of the medical record demonstrates urine cultures from July 09, 2024, which grew Escherichia coli sensitive to nitrofurantoin and for this reason nitrofurantoin is provided for treatment of urinary tract infection. Admission/Observation Consideration of admission/observation: Escalation of care including admission/observation considered Lab Data MDM Lab Attestation statement: I reviewed the patient's lab results. I reviewed and interpreted the patient's labs including CBC, metabolic panel, urinalysis and viral testing. CBC is notable for chronic thrombocytopenia with platelet count of 141 (previous 133, metabolic panel is unremarkable. Urinalysis with positive nitrite, trace leukocyte esterase, 0-2 squamous epithelial cells and 4+ bacteria (which is consistent with urinary tract infection). Patient tests negative for COVID-19, influenza and RSV. 10/02/24 10:58 10/02/24 10:58 Labs: Lab Results 10/02/24 10/02/24 Range/Units 10:58 14:31 WBC 5.1 (4.8-10.8) X10*3/uL RBC 4.72 (4.20-5.50) X10*6/uL Hgb 13.8 (12.0-16.0) g/dl Hct 42.9 (37.0-47.0) % MCV 90.9 (80.0-98.0) fL MCH 29.2 (27.0-33.0) pg MCHC 32.2 (31.0-35.0) g/dl RDW 14.7 (11.0-16.0) % Plt Count 141 L (160-400) X10*3/uL MPV 10.8 (9.4-12.3) fL Immature Gran % (Auto) 0.2 (0.0-0.4) % Neut % (Auto) 71.7 (45-73) % Lymph % (Auto) 14.7 L (20-40) % Granite % (Auto) 5.9 (2-11) % Eos % (Auto) 6.9 H (0-4) % Baso % (Auto) 0.6 (0-2) % Lymph # (Auto) 0.8 L (1.2-4.9) X10*3/uL Granite # (Auto) 0.3 (0.1-1.2) X10*3/uL Eos # (Auto) 0.4 (0.0-0.4) X10*3/uL Baso # (Auto) 0.0 (0.0-0.2) X10*3/uL Abs Immat Gran (auto) 0.01 (0.00-0.03) X10*3/uL Absolute Neuts (auto) 3.7 (2.0-8.3) x10*3/uL Absolute Nucleated RBC 0.000 (0.0-0.012) X10*3/uL Nucleated RBC % (auto) 0.0 (0.0-0.2) /100WBC Sodium 144 (135-145) mmol/L Potassium 4.1 (3.3-5.1) mmol/L Chloride 108 (96-108) mmol/L Carbon Dioxide 26 (22-29) mmol/L Anion Gap 14 (12-20) BUN 15 (9-16) mg/dL Creatinine 1.11 (0.5-1.4) mg/dL Estim Creat Clear Calc 36.9 Estimated GFR 46 Random Glucose 145 H (60-115) mg/dL Calcium 10.2 D (8.4-10.2) mg/dL Magnesium 2.0 (1.6-2.6) mg/dL Total Bilirubin 0.4 (0.0-1.0) mg/dL AST 25 (5-31) U/L ALT 22 (0-31) U/L Alkaline Phosphatase 82 (39-117) U/L Total Protein 6.7 (6.5-8.0) g/dL Albumin 3.4 L (3.5-5.0) g/dL Urine Color Yellow Urine Appearance Clear Urine pH 6.5 (5.0-9.0) Ur Specific [place] 1.015 (1.005-1.025) Urine Protein Negative (Neg-Trace) mg/dL Urine Glucose (UA) Negative (Negative) mg/dL Urine Ketones Negative (Negative) mg/dL Urine Blood Negative (Negative) Urine Nitrite Positive H (Negative) Ur Leukocyte Esterase Trace H (Negative) Urine RBC 0-2 (0-2) /HPF Urine WBC 0-5 (0-5) /HPF Ur Squamous Epith Cells 0-2 (0-2) /HPF Urine Bacteria 4+ (None Seen) Hyaline Casts 0-2 (0-2) /LPF Influenza Type A (PCR) NEGATIVE (Negative) Influenza Type B (PCR) NEGATIVE (Negative) RSV RNA Qual (PCR) NEGATIVE (Negative) SARS-CoV-2 RNA (RT-PCR) NEGATIVE (Negative) Independent Historian Clinical information obtained from an independent historian. History obtained from or confirmed by: Other (Elena provides additional history) Discharge Plan Discharge Clinical Impression: Urinary tract infection Patient Disposition: Home, Self-Care Instructions: Urinary Tract Infection in Women (DC) Additional Instructions: You were seen and evaluated in the emergency room. Your vital signs were normal and you did not have fever. You are found to have a urinary tract infection. I reviewed your urine cultures from June of 2024 to confirm the you are being prescribed the right medication based on your previous urine cultures sensitivities. You were given your 1st dose of antibiotics here in the emergency room. The prescription for additional antibiotics has been sent to the [facility] on [facility] in [place], [place]. Please take as directed and until completed. Please follow-up with your primary care doctor to review your current medications as they may be increasing her risk of developing urinary tract infections. Return to the emergency room with any new concerns or symptoms including, but not limited to fever, severe pain, nausea/vomiting or inability to eat/drink. Prescriptions: New nitrofurantoin monohyd/m-cryst [Macrobid] 100 mg capsule 100 mg PO BID 5 Days Qty: 10 0RF Rx Instructions: must administer with a meal/food No Action calcium carbonate-vitamin D3 [Calcium 600 + D(3)] 600 mg-5 mcg (200 unit) tablet 1 tab PO BID ascorbic acid (vitamin C) [Vitamin C] 500 mg tablet 1 tab PO BID mirtazapine 15 mg tablet 1 tab PO BEDTIME ferrous sulfate 325 mg (65 mg iron) tablet,delayed release (DR/EC) 1 tab PO BID fluoxetine 40 mg capsule 40 mg PO BEDTIME donepezil 10 mg tablet 10 mg PO DAILY memantine 10 mg tablet 10 mg PO BID montelukast 10 mg tablet 10 mg PO DAILY lisinopril 20 mg tablet 20 mg PO DAILY amlodipine 5 mg tablet 5 mg PO DAILY aspirin 81 mg tablet,delayed release (DR/EC) 81 mg PO DAILY cetirizine 5 mg tablet 5 mg PO DAILY omeprazole 40 mg capsule,delayed release(DR/EC) 40 mg PO DAILY mirabegron [Myrbetriq] 50 mg tablet extended release 24 hr 50 mg PO DAILY cefuroxime axetil 500 mg tablet 500 mg PO BID Qty: 10 0RF docusate sodium 100 mg capsule 100 mg PO BID Jardiance 10 mg tablet 10 mg PO DAILY atorvastatin 20 mg tablet 20 mg PO DAILY Print Language: Danish
[2024-10-02] MEDS: Nitrofurantoin Monohyd/M-Cryst 100 MG CAPSULE PO (15:06)
[2024-10-02 16:27] VITALS: BP 101/45; PULSE 65; RESP 18; TEMP 36.8; O2SAT 93
== END 2024-10-02 16:28 | disposition home or self-care (01) ==
PROVIDERS: Physician Assistant Medical; Emergency Provider Emergency Medicine; PCP Family Medicine
DX: N39.0 Urinary tract infection, site not specified (principal); R53.1 Weakness; Z03.818 Encounter for observation for suspected exposure to other biological agents ruled out; E11.9 Type 2 diabetes mellitus without complications; I10 Essential (primary) hypertension; Z86.73 Personal history of transient ischemic attack (TIA), and cerebral infarction without residual deficits; Z79.82 Long term (current) use of aspirin; Z79.899 Other long term (current) drug therapy; Z79.02 Long term (current) use of antithrombotics/antiplatelets; R29.6 Repeated falls
CPT/HCPCS: 0241U; 80053; 81001; 83735; 85025; 87086; 99283; 99284

== ENCOUNTER 2024-11-21 13:42 | Observation (INO) | payer OTHER, SELFPAY ==
--- NOTE | ~2024-11-21 | CT_ITS ---
EXAMINATION: CT ABDOMEN AND PELVIS WITH CONTRAST CLINICAL INFORMATION: Diffuse abdominal pain. COMPARISON: CT abdomen and pelvis 07/10/2024. TECHNIQUE: Multidetector volumetric images were obtained from the superior aspect of the liver through the pubic symphysis following administration 85 mL of Omnipaque 350 intravenous contrast. Sagittal and coronal reformatted images were obtained on the technologist's workstation. Oral contrast: No This CT examination was performed using dose optimization techniques as appropriate, variously including the following: *Automated exposure control *Adjustment of mA and/or kV according to patient size (this includes techniques or standardized protocols for targeted exams where dose is matched to indication/reason for exam; i.e. extremities or head) *Use of iterative reconstruction technique DLP: 1047 mGy-cm FINDINGS: LUNG BASES: There is mild emphysematous changes of lungs without acute process. There is moderate to large hiatal hernia. The heart size is normal. No pericardial or pleural effusion seen. LIVER, GALLBLADDER, AND BILIARY TREE: Right hepatic lobe is normal size with mild nodular contour but normal attenuation. The left lobe is mildly enlarged measuring 13 cm in craniocaudad length no focal lesion seen. No intrahepatic ductal dilatation. The gallbladder has been surgically removed. PANCREAS: Unremarkable. SPLEEN: Unremarkable. ADRENAL GLANDS: Unremarkable. KIDNEYS AND URETERS: The kidneys are normal in size, shape, and attenuation. No hydronephrosis, hydroureter, or calculi seen. No perinephric stranding. There are bilateral simple renal cysts. BLADDER: Unremarkable. GASTROINTESTINAL TRACT: There is moderate to large stool seen throughout the colon especially in the sigmoid region. Few scattered colonic diverticulosis most predominantly in the sigmoid region. No evidence of diverticulitis. No free air or free fluid. The small bowel loops are normal caliber. Appendix is not seen. Almost entire stomach is intrathoracic. ABDOMINAL WALL: No significant hernia is appreciated. LYMPH NODES: Normal. VASCULAR: Unremarkable. PELVIC VISCERA: Unremarkable. OSSEOUS STRUCTURES: No aggressive lytic or sclerotic process seen. CT/CT abdomen pelvis w IV con IMPRESSION: Diffuse colonic diverticulosis and moderate constipation. No evidence of diverticulitis or obstruction. Bilateral simple renal cysts. Mild left hepatomegaly measuring 13 cm. Fleischner guidelines were followed. Electronically signed by: Vidal Moreno MD 11/21/2024 08:45 PM [facility]
--- NOTE | ~2024-11-21 | XR_ITS ---
EXAMINATION: XR CHEST CLINICAL INFORMATION: Weakness COMPARISON: Chest radiograph 07/09/2024 CT abdomen pelvis 07/10/2024 TECHNIQUE: 2 views of the chest were obtained. FINDINGS: Large hiatal hernia is again noted. There is mild cardiac enlargement. No gross CHF. No infiltrates, effusions or lung masses. There is been some improvement in the previously seen patchy consolidation at the left lung base in June thought to represent aspiration pneumonia. XR/XR chest 2V IMPRESSION: No acute intrathoracic disease. Large hiatal hernia. Electronically signed by: Selvin Herrera MD 11/21/2024 03:23 PM [facility]
--- NOTE | 2024-11-21 13:44 | ED.GENADULT ---
HPI - General Adult General Chief complaint: General Medical Stated complaint: Weakness, Hx UTIs Time Seen by Provider: 11/21/24 13:44 Source: patient, EMS, RN notes reviewed and nurse midwife Mode of arrival: EMS Limitations: language barrier and altered mental status History of Present Illness ED Provider: Rosetta HPI narrative: Patient is an 89-year-old female with history of DM, CVA, HTN, dementia, CKD, cirrhosis, DONAVAN presenting to the emergency department with complaint of generalized body aches, recently too weak to ambulate. Patient unable to report history/symptoms due to dementia. Reports similar symptoms in the past with UTIs. MD complaint: weakness Onset (ago): unknown Related Data Home Medications ?Medication ?Instructions ?Recorded ?Confirmed ascorbic acid (vitamin C) 500 mg 1 tab PO BID 11/27/21 07/10/24 tablet (Vitamin C) calcium 600 mg (as 1 tab PO BID 11/27/21 07/10/24 carbonate)-vitamin D3 5 mcg (200 unit) tablet (Calcium 600 + D(3)) ferrous sulfate 325 mg (65 mg 1 tab PO BID 11/27/21 07/10/24 iron) tablet,delayed release mirtazapine 15 mg tablet 1 tab PO BEDTIME 11/27/21 07/10/24 amlodipine 5 mg tablet 5 mg PO DAILY 01/23/23 07/10/24 aspirin 81 mg tablet,delayed 81 mg PO DAILY 01/23/23 07/10/24 release cetirizine 5 mg tablet 5 mg PO DAILY 01/23/23 07/10/24 donepezil 10 mg tablet 10 mg PO DAILY 01/23/23 07/10/24 empagliflozin 10 mg tablet 10 mg PO DAILY 01/23/23 07/10/24 (Jardiance) fluoxetine 40 mg capsule 40 mg PO BEDTIME 01/23/23 07/10/24 lisinopril 20 mg tablet 20 mg PO DAILY 01/23/23 07/10/24 memantine 10 mg tablet 10 mg PO BID 01/23/23 07/10/24 montelukast 10 mg tablet 10 mg PO DAILY 01/23/23 07/10/24 omeprazole 40 mg capsule,delayed 40 mg PO DAILY 01/23/23 07/10/24 release docusate sodium 100 mg capsule 100 mg PO BID 05/24/23 07/10/24 atorvastatin 20 mg tablet 20 mg PO DAILY 07/27/23 07/10/24 mirabegron 50 mg tablet,extended 50 mg PO DAILY 07/10/24 07/10/24 release 24 hr (Myrbetriq) Previous Rx's ?Medication ?Instructions ?Recorded cefuroxime axetil 500 mg tablet 500 mg PO BID #10 tabs 07/12/24 nitrofurantoin 100 mg PO BID 5 days #10 caps 10/02/24 monohydrate/macrocrystals 100 mg capsule (Macrobid) Allergies Allergy/AdvReac Type Severity Reaction Status Date / Time ceftazidime [Ceftazidime] Allergy Mild UNKNOWN Verified 11/21/24 13:54 benzocaine [Benzocaine] Allergy Unknown UNKNOWN Verified 11/21/24 13:54 butamben [From Cetacaine] Allergy Unknown UNKNOWN Verified 11/21/24 13:54 metoclopramide [From Reglan] Allergy Unknown UNKNOWN Verified 11/21/24 13:54 morphine [Morphine] Allergy Unknown SWELLING Verified 11/21/24 13:54 tetracaine [From Cetacaine] Allergy Unknown UNKNOWN Verified 11/21/24 13:54 Review of Systems Review of Systems: As per HPI Yes all other systems are reviewed and are negative Constitutional: Constitutional: Reports as per HPI Neurologic: Reports confusion Psychiatric: Psychiatric: Reports confusion [facility] Past Medical History Medical History Cirrhosis of liver DONAVAN (obstructive sleep apnea) Diabetes Allergic dermatitis Hives CVA (cerebral vascular accident) Non-alcoholic micronodular cirrhosis of liver CKD (chronic kidney disease) Dementia Hypertension Surgical History Hx of cholecystectomy No pertinent past surgical history Family History Family History Father No problems noted. Mother No problems noted. Social History Social History Housing: Apartment Do you presently have visiting nurse or other home services: No Alcohol intake: current Alcohol intake frequency: does not drink Patient Tobacco Use Status: Former Tobacco user Smoked in Last 30 Days: No Second Hand Smoke Exposure: No Use of substances other than those prescribed or required for medical reasons: No Advance Directives: Yes Advance Directives on File: Yes Advance Directives Date on File: 12/07/21 Do you have a plan to hurt others: No Plan service: No Physical Exam ED Vital Signs: Vital Signs - 24 hr 11/21/24 13:52 11/21/24 15:58 11/21/24 18:13 Temperature 98.0 F 99.1 F 99.9 F Pulse Rate 80 76 78 Respiratory Rate 18 18 16 Blood Pressure 156/64 H 147/69 H 160/63 H Pulse Oximetry 98 92 92 Oxygen Delivery Method Room Air Room Air Nasal Cannula Oxygen Flow Rate 1 11/21/24 19:40 Temperature 101.5 F H Pulse Rate 81 Respiratory Rate 20 Blood Pressure 161/66 H Pulse Oximetry 97 Oxygen Delivery Method Nasal Cannula Oxygen Flow Rate 2 BMI result Body Mass Index 24.2 Vital signs have been reviewed and appear to be correct. Blood pressure elevated. Heart rate normal. Respiratory rate normal. Temperature normal. Oxygen saturation normal. Const General: cooperative, healthy appearing, no acute distress and confusion Orientation/consciousness: oriented to person, oriented to place, oriented to time, patient oriented x3 and confusion HENMT Head: Yes normocephalic and Yes atraumatic Ears: external ears normal General nose exam: Normal external nose present Face and sinus: Yes face symmetric Mouth: oropharynx normal and moist mucous membranes Throat: Yes uvula midline Eyes Pupils: Equal, round and reactive pupils present Neck Neck: Yes normal visual inspection and Yes supple Resp Effort & Inspection: normal respiratory effort and able to speak in complete sentences Auscultation: clear to auscultation bilaterally Cardio Rate: regular rate Rhythm: regular rhythm Heart sounds: S1 normal heart sound present and S2 normal heart sound present GI Inspection: Yes normal to inspection Palpation (GI): Soft to palpation and Tenderness to palpation present (GI) (diffuse tenderness) Auscultation: normoactive bowel sounds General: Yes no CVA tenderness Back/Spine/Pelvis Back: no CVA tenderness Skin General skin exam: elasticity normal and turgor normal Neuro General: oriented to person, oriented to place, oriented to time, patient oriented x3, moves all extremities, no focal motor deficits, CN's II-XI intact bilaterally and confusion Cranial nerves: Yes Equal, round and reactive pupils present Cognition (Neuro): normal cognition Extrem General: Yes full ROM, Yes no pedal edema and Yes no calf tenderness Psych Mental Status: mental status grossly normal Course Reevaluation(s) Reevaluation #1: Notified by nursing that patient now febrile, Tylenol ordered. Patient also noted to have low O2 sat, placed on O2. Now meeting sepsis criteria, Ceftriaxone ordered. Time: 19:42 Medications Administered Discontinued Medications Generic Name Dose Route Start Last Admin Trade Name Thai PRN Reason Stop Dose Admin Acetaminophen 650 mg 11/21/24 19:38 11/21/24 20:16 Acetaminophen 325 Mg Tablet PO 11/21/24 19:39 650 mg ONCE ONE Administration Ceftriaxone Sodium 1 gm 11/21/24 19:49 11/21/24 20:12 Ceftriaxone Sodium 1 Gm Vial IVPUSH 11/21/24 19:50 1 gm ONCE ONE Administration Iohexol 100 ml 11/21/24 18:38 11/21/24 18:39 Iohexol 350 Mg/Ml 100 Ml Infus..Btl IV 11/21/24 18:39 85 ml ONCE ONE Administration Medical Decision Making Medical Decision Making [facility] Narrative: Patient is an 89-year-old female with history of DM, CVA, HTN, dementia, CKD, cirrhosis, DONAVAN presenting to the emergency department with complaint of generalized body aches, recently too weak to ambulate. On exam patient is awake, A+Ox3, VS WNL, afebrile, normal neurological exam without focal deficits, physical exam findings as above. Given reported symptoms and physical exam findings, initial differential includes but is not limited to viral illness, UTI, OMERO, electrolyte abnormality. Labs notable for no leukocytosis, no significant electrolyte abnormalities. Viral serology negative. X-ray chest notable for no evidence of pneumonia. CT A/P notable for moderate constipation. My interpretation is in agreement with the radiologist's interpretation. Admission for sepsis accepted by Dr. Dennis. Differential Diagnosis Differential Diagnoses: The differential diagnosis associated with the presentation includes As per [facility] Admission/Observation Consideration of admission/observation: Escalation of care including admission/observation considered Consult Healthcare Provider Management of the patient was discussed with: Hospitalist Lab Data [facility] Lab Attestation statement: I reviewed the patient's lab results. As per [facility] 11/21/24 15:23 11/21/24 15:23 Labs: Lab Results 11/21/24 11/21/24 11/21/24 Range/Units 15:23 20:05 20:12 WBC 8.0 (4.8-10.8) X10*3/uL RBC 4.91 (4.20-5.50) X10*6/uL Hgb 14.3 (12.0-16.0) g/dl Hct 44.9 (37.0-47.0) % MCV 91.4 (80.0-98.0) fL MCH 29.1 (27.0-33.0) pg MCHC 31.8 (31.0-35.0) g/dl RDW 14.9 (11.0-16.0) % Plt Count 134 L (160-400) X10*3/uL MPV 10.6 (9.4-12.3) fL Immature Gran % (Auto) 0.3 (0.0-0.4) % Neut % (Auto) 82.3 H (45-73) % Lymph % (Auto) 5.3 L (20-40) % [place] % (Auto) 8.6 (2-11) % Eos % (Auto) 3.1 (0-4) % Baso % (Auto) 0.4 (0-2) % Lymph # (Auto) 0.4 L (1.2-4.9) X10*3/uL [place] # (Auto) 0.7 (0.1-1.2) X10*3/uL Eos # (Auto) 0.3 (0.0-0.4) X10*3/uL Baso # (Auto) 0.0 (0.0-0.2) X10*3/uL Abs Immat Gran (auto) 0.02 (0.00-0.03) X10*3/uL Absolute Neuts (auto) 6.6 (2.0-8.3) x10*3/uL Absolute Nucleated RBC 0.000 (0.0-0.012) X10*3/uL Nucleated RBC % (auto) 0.0 (0.0-0.2) /100WBC Hold Blue Top SEE NOTE Sodium 142 (135-145) mmol/L Potassium 4.2 (3.3-5.1) mmol/L Chloride 106 (96-108) mmol/L Carbon Dioxide 28 (22-29) mmol/L Anion Gap 12 (12-20) BUN 17 H (9-16) mg/dL Creatinine 1.14 (0.5-1.4) mg/dL Estim Creat Clear Calc 31.9 Estimated GFR 45 Random Glucose 96 (60-115) mg/dL Lactic Acid 1.3 (0.5-2.0) mmol/L Calcium 10.2 (8.4-10.2) mg/dL Magnesium 2.0 (1.6-2.6) mg/dL Total Bilirubin 0.5 (0.0-1.0) mg/dL AST 35 H (5-31) U/L ALT 20 (0-31) U/L Alkaline Phosphatase 92 (39-117) U/L Troponin I High Sens 30.4 H D (<3.5-17.0) ng/L Total Protein 7.6 (6.5-8.0) g/dL Albumin 3.9 (3.5-5.0) g/dL Influenza Type A (PCR) NEGATIVE (Negative) Influenza Type B (PCR) NEGATIVE (Negative) RSV RNA Qual (PCR) NEGATIVE (Negative) SARS-CoV-2 RNA (RT-PCR) NEGATIVE (Negative) Independent Interpretation I performed an independent interpretation of an: Plain X-Ray Interpretation: No evidence of pneumonia on chest x-ray. CT A/P notable for moderate constipation. Radiology Impression Discussion of test interpretation with radiology: I have reviewed the radiologist's reading. Radiologist Impression: XR/XR chest 2V IMPRESSION: No acute intrathoracic disease. Large hiatal hernia. CT/CT abdomen pelvis w IV con IMPRESSION: Diffuse colonic diverticulosis and moderate constipation. No evidence of diverticulitis or obstruction. Bilateral simple renal cysts. Mild left hepatomegaly measuring 13 cm. External Record Review External record reviewed: Inpatient record, Office record and Outpatient record Prescription Management I considered prescription management with: Antibiotic Discharge Plan Discharge Prescriptions: No Action calcium carbonate-vitamin D3 [Calcium 600 + D(3)] 600 mg-5 mcg (200 unit) tablet 1 tab PO BID ascorbic acid (vitamin C) [Vitamin C] 500 mg tablet 1 tab PO BID mirtazapine 15 mg tablet 1 tab PO BEDTIME ferrous sulfate 325 mg (65 mg iron) tablet,delayed release (DR/EC) 1 tab PO BID fluoxetine 40 mg capsule 40 mg PO BEDTIME donepezil 10 mg tablet 10 mg PO DAILY memantine 10 mg tablet 10 mg PO BID montelukast 10 mg tablet 10 mg PO DAILY lisinopril 20 mg tablet 20 mg PO DAILY amlodipine 5 mg tablet 5 mg PO DAILY aspirin 81 mg tablet,delayed release (DR/EC) 81 mg PO DAILY cetirizine 5 mg tablet 5 mg PO DAILY omeprazole 40 mg capsule,delayed release(DR/EC) 40 mg PO DAILY nitrofurantoin monohyd/m-cryst [Macrobid] 100 mg capsule 100 mg PO BID 5 Days Qty: 10 0RF Rx Instructions: must administer with a meal/food mirabegron [Myrbetriq] 50 mg tablet extended release 24 hr 50 mg PO DAILY cefuroxime axetil 500 mg tablet 500 mg PO BID Qty: 10 0RF docusate sodium 100 mg capsule 100 mg PO BID Jardiance 10 mg tablet 10 mg PO DAILY atorvastatin 20 mg tablet 20 mg PO DAILY Print Language: Panamanian
[2024-11-21 13:52] VITALS: BP 128/86; BP 156/64; PULSE 80; PULSE 83; RESP 18; TEMP 36.7; O2SAT 95; O2SAT 98; BMI 24.2
[2024-11-21 15:28] LABS: MANUAL DIFF FLAG NO
[2024-11-21 15:47] LABS: Basophils Percent Auto 0.4 % (0-2); Eosinophils Absolute Auto 0.3 X10*3/uL (0.0-0.4); Eosinophils Percent Auto 3.1 % (0-4); Hematocrit 44.9 % (37.0-47.0); Hemoglobin 14.3 g/dl (12.0-16.0); Imm Gran Abs Auto 0.02 X10*3/uL (0.00-0.03); Imm Gran Pct Auto 0.3 % (0.0-0.4); Lymphocytes Absolute Auto 0.4 X10*3/uL (1.2-4.9); Lymphocytes Percent Auto 5.3 % (20-40); Mean Corpuscular HGB Conc 31.8 g/dl (31.0-35.0); Mean Corpuscular Hemoglobin 29.1 pg (27.0-33.0); Mean Corpuscular Volume 91.4 fL (80.0-98.0); Mean Platelet Volume 10.6 fL (9.4-12.3); Monocytes Absolute Auto 0.7 X10*3/uL (0.1-1.2); Monocytes Percent Auto 8.6 % (2-11); Neutrophils Absolute Auto 6.6 x10*3/uL (2.0-8.3); Neutrophils Percent Auto 82.3 % (45-73); Platelet Count 134 X10*3/uL (160-400); Red Blood Count 4.91 X10*6/uL (4.20-5.50); Red Cell Distribution Width 14.9 % (11.0-16.0)
[2024-11-21 15:54] LABS: Alanine Aminotransferase 20 U/L (0-31); Albumin Level 3.9 g/dL (3.5-5.0); Anion Gap 12 (12-20); Aspartate Amino Transferase 35 U/L (5-31); Bilirubin Total 0.5 mg/dL (0.0-1.0); Blood Urea Nitrogen 17 mg/dL (9-16); Calcium 10.2 mg/dL (8.4-10.2); Carbon Dioxide 28 mmol/L (22-29); Chloride 106 mmol/L (96-108); Creatinine Clr Calc Pharmacy 31.9; Estimated Glomerular Filt Rate 45; Glucose Random 96 mg/dL (60-115); Potassium 4.2 mmol/L (3.3-5.1); Sodium 142 mmol/L (135-145); Total Protein 7.6 g/dL (6.5-8.0)
[2024-11-21 15:58] VITALS: BP 147/69; PULSE 76; RESP 18; TEMP 37.3; O2SAT 92
[2024-11-21 16:17] LABS: Alkaline Phosphatase 92 U/L (39-117)
[2024-11-21 16:26] LABS: Influenza A PCR NEGATIVE (Negative); Influenza B PCR NEGATIVE (Negative); Resp Syncy Virus RNA Qual PCR NEGATIVE (Negative); SARS COV2 PCR INHOUSE NEGATIVE (Negative)
[2024-11-21 18:13] VITALS: BP 160/63; PULSE 78; RESP 16; TEMP 37.7; O2SAT 92
[2024-11-21] MEDS: iohexoL 350 MG/ML 100 ML INFUS..BTL IV (18:39)
--- NOTE | 2024-11-21 19:33 | PC.NURSE ---
Pt desat while upright in bed to high 80s. SHAHZAD Rawls made aware, pt placed on 2L NC with good effect. O2 sat maintained 93-95%
[2024-11-21 19:40] VITALS: BP 161/66; PULSE 81; RESP 20; TEMP 38.6; O2SAT 97
--- NOTE | 2024-11-21 19:44 | PC.NURSE ---
assumed care of pt 1914. pt found to be 99.9F oral temp, agreeable for rectal temp. rectal temp 101.5F, vitals as documented. [facility] MAP EDITOR made aware. pt previously desat to 88% on RA, currently found to be 98% on 2L NC. per [facility] MAP EDITOR to check ambulatory o2. if pt unable to provide urine sample, to straight cath per MAP EDITOR.
--- NOTE | 2024-11-21 20:00 | PC.NURSE ---
pt is axox2 ?if baseline, per INSURANCE ADVISOR pt has hx dementia. reports 04/05 CP, INSURANCE ADVISOR made aware, trop/ekg ordered. 2nd iv established. pt medicated per jan. tolerated straight cath and sample sent to lab. pt appears comfortable, resp even and unlabored. skin wpd. call oliver within reach.
--- NOTE | 2024-11-21 20:07 | ECG_ITS ---
Test Reason : CHEST PAIN Blood Pressure : / mmHG Vent. Rate : 084 BPM Atrial Rate : 084 BPM P-R Int : 174 ms QRS Dur : 132 ms QT Int : 428 ms P-R-T Axes : 038 -31 012 degrees QTc Int : 505 ms Normal sinus rhythm Left axis deviation Right bundle branch block Abnormal ECG When compared with ECG of 09-JUL-2024 18:40, No significant change was found Referred By: [facility] Sargent Electronically Signed By:RENE LOMBARDO MD
[2024-11-21] MEDS: cefTRIAXone sodium 1 GM VIAL IVPUSH (20:12)
[2024-11-21] MEDS: Acetaminophen 325 MG TABLET 650 MG PO ×2 (20:16→23:08)
[2024-11-21 20:28] LABS: Lactic Acid 1.3 mmol/L (0.5-2.0)
[2024-11-21 20:48] LABS: Troponin-I High Sensitivity 30.4 ng/L (<3.5-17.0)
[2024-11-21 20:49] LABS: Appearance Urine Clear; Color Urine Yellow; Glucose Urine UA 100 mg/dL (Negative); Leukocyte Esterase Urine Negative (Negative); Nitrite Urine Negative (Negative); PH 6.5 (5.0-9.0); Specific Gravity - Urine >= 1.030 (1.005-1.025); UMIC TRIGGER UACC YES; Urine Blood Trace (Negative); Urine Ketones 15 mg/dL (Negative); Urine Protein Trace mg/dL (Neg-Trace)
[2024-11-21 21:14] LABS: Bacteria Urine 4+ (None Seen); Hyaline Casts Urine 0-2 /LPF (0-2); WBC Urine 0-5 /HPF (0-5)
--- NOTE | 2024-11-21 21:38 | P.HPHOSP_ITS ---
History of Present Illness Date of Service: 11/21/24 Attending physician on admission: Wei Dennis Chief Complaint: Genearlized weakness, uable to ambulate Pt is an 89-year-old Vietnamese-speaking female with a PMH significant for?HTN, hx of CVA, severe , cirrhosis, and vascular/Alzheimer's dementia who presents to the ED with generalized weakness, difficulty ambulating on her own, and overall generally feeling unwell. Patient is a poor historian and unable to provide many specifics about what brought her into the hospital today, or what she has been experiencing lately at home. Patient apparently lives by herself and it is unclear what help she receives. Vaguely reports feeling unbalanced but denies falling. Unclear when last fall at home was. Has also been experiencing lower abdominal pain, though time of onset unclear. Some nausea but no vomiting. No diarrhea. Denies shortness of breath, difficulty breathing, MACHADO, or cough. Chest pain/pressure, palpitations. ? In the ED pt was febrile up to 101.5 and hypertensive up to 161/66. Labs were grossly unremarkable and around baseline for patient. No leukocytosis. Stable H&H. No significant electrolyte abnormalities. Renal function baseline. Initial troponin 30.4 which is at baseline in lower than previous. Hepatic function baseline. UA negative for nitrites and leukocyte esterase, but showing 3-5 epithelial cells and 4+ bacteria. Likely colonized and/or contaminated. Tested negative for flu, COVID, RSV. Chest x-ray negative for acute intrathoracic disease. CT of abdomen/pelvis negative for acute abdomen. EKG demonstrated normal sinus rhythm with RBBB, similar to previous. Pt was treated with acetaminophen and ceftriaxone. Pt will be admitted to the hospital under observation for treatment and further evaluation of fever and hypoxia of unclear etiology. Review of Systems 2 Review of Systems: Negative except for that which is stated in the [facility] Medical History Cirrhosis of liver DONAVAN (obstructive sleep apnea) Diabetes Allergic dermatitis Hives CVA (cerebral vascular accident) Non-alcoholic micronodular cirrhosis of liver CKD (chronic kidney disease) Dementia Hypertension Family History Father No problems noted. Mother No problems noted. Surgical History Hx of cholecystectomy No pertinent past surgical history Social History Housing: Apartment Do you presently have visiting nurse or other home services: No Alcohol intake: current Alcohol intake frequency: does not drink Patient Tobacco Use Status: Former Tobacco user Smoked in Last 30 Days: No Second Hand Smoke Exposure: No Use of substances other than those prescribed or required for medical reasons: No Advance Directives: Yes Advance Directives on File: Yes Advance Directives Date on File: 12/07/21 Do you have a plan to hurt others: No Plan service: No Meds Allergies Allergy/AdvReac Type Severity Reaction Status Date / Time ceftazidime [Ceftazidime] Allergy Mild UNKNOWN Verified 11/21/24 13:54 benzocaine [Benzocaine] Allergy Unknown UNKNOWN Verified 11/21/24 13:54 butamben [From Cetacaine] Allergy Unknown UNKNOWN Verified 11/21/24 13:54 metoclopramide [From Reglan] Allergy Unknown UNKNOWN Verified 11/21/24 13:54 morphine [Morphine] Allergy Unknown SWELLING Verified 11/21/24 13:54 tetracaine [From Cetacaine] Allergy Unknown UNKNOWN Verified 11/21/24 13:54 Home Medications ?Medication ?Instructions ?Recorded ?Confirmed ?Last Taken ?Type ascorbic acid (vitamin C) 500 mg 1 tab PO BID 11/27/21 11/21/24 Unknown History tablet (Vitamin C) calcium 600 mg (as 1 tab PO BID 11/27/21 11/21/24 Unknown History carbonate)-vitamin D3 5 mcg (200 unit) tablet (Calcium 600 + D(3)) ferrous sulfate 325 mg (65 mg 1 tab PO BID 11/27/21 11/21/24 Unknown History iron) tablet,delayed release mirtazapine 15 mg tablet 1 tab PO BEDTIME 11/27/21 11/21/24 Unknown History amlodipine 5 mg tablet 5 mg PO DAILY 01/23/23 11/21/24 Unknown History aspirin 81 mg tablet,delayed 81 mg PO DAILY 01/23/23 11/21/24 Unknown History release cetirizine 5 mg tablet 5 mg PO DAILY 01/23/23 11/21/24 Unknown History donepezil 10 mg tablet 10 mg PO DAILY 01/23/23 11/21/24 Unknown History empagliflozin 10 mg tablet 10 mg PO DAILY 01/23/23 11/21/24 Unknown History (Jardiance) fluoxetine 40 mg capsule 40 mg PO BEDTIME 01/23/23 11/21/24 Unknown History lisinopril 20 mg tablet 20 mg PO DAILY 01/23/23 11/21/24 Unknown History memantine 10 mg tablet 10 mg PO BID 01/23/23 11/21/24 Unknown History montelukast 10 mg tablet 10 mg PO DAILY 01/23/23 11/21/24 Unknown History omeprazole 40 mg capsule,delayed 40 mg PO DAILY@0630 01/23/23 11/21/24 Unknown History release docusate sodium 100 mg capsule 100 mg PO BID 05/24/23 11/21/24 Unknown History atorvastatin 20 mg tablet 20 mg PO DAILY 07/27/23 11/21/24 Unknown History mirabegron 50 mg tablet,extended 50 mg PO DAILY 07/10/24 11/21/24 Unknown History release 24 hr (Myrbetriq) haloperidol lactate 2 mg/mL oral 0.5 mg PO DAILY 11/21/24 11/21/24 Unknown History concentrate trazodone 50 mg tablet 50 mg PO BEDTIME 11/21/24 11/21/24 Unknown History Physical Exam 2 Vital Signs and Narrative: Vital Signs: Last Vital Signs Temp 101.5 F H 11/21/24 19:40 Pulse 81 11/21/24 19:40 Resp 20 11/21/24 19:40 BP 161/66 H 11/21/24 19:40 Pulse Ox 97 11/21/24 19:40 O2 Del Method Nasal Cannula 11/21/24 19:40 O2 Flow Rate 2 11/21/24 19:40 BMI result Body Mass Index 24.2 General: AOx3, no acute distress Resp: CTA bilaterally CVS: S1, S2, RRR, +murmur radiating to neck GI: +BS, no distention, with left-sided tenderness Skin: Warm, dry Neuro: Cranial nerves II-XII grossly intact bilaterally. Motor grossly intact bilaterally. Generalized weakness Extremities: No edema Psych: Appropriate affect Results Labs 11/21/24 15:23 11/21/24 15:23 Labs: Laboratory Results - last 24 hr 11/21/24 11/21/24 11/21/24 15:23 20:05 20:12 MCV 91.4 MCH 29.1 MCHC 31.8 RDW 14.9 Plt Count 134 L MPV 10.6 Immature Gran % (Auto) 0.3 Neut % (Auto) 82.3 H Lymph % (Auto) 5.3 L [place] % (Auto) 8.6 Eos % (Auto) 3.1 Baso % (Auto) 0.4 Lymph # (Auto) 0.4 L [place] # (Auto) 0.7 Eos # (Auto) 0.3 Baso # (Auto) 0.0 Abs Immat Gran (auto) 0.02 Absolute Neuts (auto) 6.6 Absolute Nucleated RBC 0.000 Nucleated RBC % (auto) 0.0 Hold Blue Top SEE NOTE Anion Gap 12 Estim Creat Clear Calc 31.9 Estimated GFR 45 Random Glucose 96 Lactic Acid 1.3 Calcium 10.2 Magnesium 2.0 Total Bilirubin 0.5 AST 35 H ALT 20 Alkaline Phosphatase 92 Troponin I High Sens 30.4 H D Total Protein 7.6 Albumin 3.9 Urine Color Urine Appearance Urine pH Ur Specific [place] Urine Protein Urine Glucose (UA) Urine Ketones Urine Blood Urine Nitrite Ur Leukocyte Esterase Urine RBC Urine WBC Ur Squamous Epith Cells Urine Bacteria Hyaline Casts Influenza Type A (PCR) NEGATIVE Influenza Type B (PCR) NEGATIVE RSV RNA Qual (PCR) NEGATIVE SARS-CoV-2 RNA (RT-PCR) NEGATIVE 11/21/24 20:29 MCV MCH MCHC RDW Plt Count MPV Immature Gran % (Auto) Neut % (Auto) Lymph % (Auto) [place] % (Auto) Eos % (Auto) Baso % (Auto) Lymph # (Auto) [place] # (Auto) Eos # (Auto) Baso # (Auto) Abs Immat Gran (auto) Absolute Neuts (auto) Absolute Nucleated RBC Nucleated RBC % (auto) Hold Blue Top Anion Gap Estim Creat Clear Calc Estimated GFR Random Glucose Lactic Acid Calcium Magnesium Total Bilirubin AST ALT Alkaline Phosphatase Troponin I High Sens Total Protein Albumin Urine Color Yellow Urine Appearance Clear Urine pH 6.5 Ur Specific [place] >= 1.030 H Urine Protein Trace Urine Glucose (UA) 100 H Urine Ketones 15 Urine Blood Trace H Urine Nitrite Negative Ur Leukocyte Esterase Negative Urine RBC 3-5 H Urine WBC 0-5 Ur Squamous Epith Cells 3-5 Urine Bacteria 4+ Hyaline Casts 0-2 Influenza Type A (PCR) Influenza Type B (PCR) RSV RNA Qual (PCR) SARS-CoV-2 RNA (RT-PCR) Imaging Radiologist's Impressions: Impressions Chest X-Ray 11/21/24 13:44 IMPRESSION: No acute intrathoracic disease. Large hiatal hernia. Electronically signed by: Selvin Herrera MD 11/21/2024 03:23 PM EST RP Abdomen/Pelvis CT 11/21/24 18:34 IMPRESSION: Diffuse colonic diverticulosis and moderate constipation. No evidence of diverticulitis or obstruction. Bilateral simple renal cysts. Mild left hepatomegaly measuring 13 cm. Fleischner guidelines were followed. Electronically signed by: Vidal Moreno MD 11/21/2024 08:45 PM EST RP Assessment and Plan (1) Fever: Status: Acute (2) Generalized weakness: Status: Acute Plan Pt is an 89-year-old Vietnamese-speaking female with a PMH significant for?HTN, hx of CVA, severe , cirrhosis, and vascular/Alzheimer's dementia who presents to the ED with generalized weakness, difficulty ambulating on her own, and overall generally feeling unwell. Pt will be admitted to the hospital under observation for treatment and further evaluation of fever and hypoxia of unclear etiology. Hypoxia and fever of unclear etiology CXR negative, CT abdomen and pelvis negative for acute abdomen, UA showing bacteria but no nitrites or leukocyte esterase Does not meet SIRS criteria: Fever, but no tachycardia, tachypnea, or leukocytosis; lactic acid WNL at 1.3, no hypotension Patient empirically treated with ceftriaxone No clear infectious source, Will hold on additional antibiotics pending viral studies Check respiratory panel Follow urine culture Titrate supplemental O2 >92, wean as tolerated Generalized weakness PT evaluation Elevated troponin Troponin 30.4, reduced from previous of 63.0 on 07/09/2024 Patient with chronically elevated troponins EKG without significant ischemic changes, patient asymptomatic No indication for further treatment or workup at this time Abdominal pain Appears chronic, patient has complained multiple times about this in the past CT of abdomen negative for acute abdomen Symptomatic treatment Hx of CVA Continue aspirin, statin HTN Continue amlodipine Alzheimer's/vascular dementia Continue donepezil haloperidol, memantine DNR/DNI Attending:?Dr. Dennis DVT Prophylaxis: Lovenox Patient will be admitted to the hospital under observation for treatment and further evaluation of generalized weakness in the setting of fever hypoxia of unclear origin. Quality Stroke Does the patient have a stroke diagnosis?: No VTE Prior VTE?: No VTE Risk Level:: Medical - moderate - high VTE Device Contraindication: Treatment Not Indicated VTE Drug Contraindication: N/A - Med Ordered
--- NOTE | 2024-11-21 21:56 | PHA.MEDREC ---
Addendum entered by Elliot Castrejon RPh 11/22/24 09:56: Received med list (with directions) from [facility] ([phone]) and directions were double checked. Original Note: Pharmacy Consult ? Medication Reconciliation Pharmacy has completed the medication reconciliation. Med Rec complete via claim history. [facility] in the morning for directions.
[2024-11-21 22:10] VITALS: BP 132/61; PULSE 80; RESP 19; TEMP 38.4; O2SAT 96
[2024-11-21] MEDS: Lactated Ringers 1,000 ML 80 ML IVCONT (23:08)
[2024-11-21] MEDS: Enoxaparin Sodium 40 MG/0.4 ML SYRINGE SUBCUT (23:08)
--- NOTE | 2024-11-21 23:08 | PC.NURSE ---
pt remains febrile. given prn tylenol per MD Dennis, aware of last dose, ice packs placed on pt.
[2024-11-22] VITALS (8 sets, daily range): BP systolic 118–154; BP diastolic 56–68; PULSE 70–84; RESP 16–22; TEMP 36.2–37.8; O2SAT 92–97; BMI 27.9
[2024-11-22] MEDS: Memantine HCl 10 MG TABLET PO ×2 (10:27→22:05)
[2024-11-22] MEDS: Donepezil HCl 10 MG TABLET PO (10:27)
[2024-11-22] MEDS: Calcium + Vitamin D 250 MG TABLET 500 MG PO ×2 (10:27→22:04)
[2024-11-22] MEDS: Montelukast Sodium 10 MG TABLET PO (10:27)
[2024-11-22] MEDS: amLODIPine Besylate 5 MG TABLET PO (10:27)
[2024-11-22] MEDS: Loratadine 10 MG TABLET PO (10:27)
[2024-11-22] MEDS: Ascorbic Acid 500 MG TABLET PO ×2 (10:27→22:04)
[2024-11-22] MEDS: Docusate Sodium 100 MG CAPSULE PO ×2 (10:27→22:06)
[2024-11-22] MEDS: Ferrous Sulfate 324 MG TABLET.DR PO ×2 (10:27→22:04)
[2024-11-22] MEDS: Mirabegron 50 MG TAB.ER.24H PO (10:27)
[2024-11-22] MEDS: Aspirin Enteric Coated 81 MG TABLET.DR PO (10:27)
[2024-11-22] MEDS: Atorvastatin Calcium 20 MG TABLET PO (10:27)
[2024-11-22 11:37] LABS: Adenovirus PCR Not Detected (Not Detect.); Bordetella parapertussis PCR Not Detected (Not Detect.); Bordetella pertussis PCR Not Detected (Not Detect.); Chlamydia pneumoniae PCR Not Detected (Not Detect.); Coronavirus 229E PCR Not Detected (Not Detect.); Coronavirus HKU1 PCR Detected (Not Detect.); Coronavirus NL63 PCR Not Detected (Not Detect.); Coronavirus OC43 PCR Not Detected (Not Detect.); Human metapneumovirus PCR Not Detected (Not Detect.); Influenza A PCR Not Detected (Not Detect.); Influenza B PCR Not Detected (Not Detect.); Mycoplasma pneumoniae PCR Not Detected (Not Detect.); Parainfluenza 1 PCR Not Detected (Not Detect.); Parainfluenza 2 PCR Not Detected (Not Detect.); Parainfluenza 3 PCR Not Detected (Not Detect.); Parainfluenza 4 PCR Not Detected (Not Detect.); RSV PCR Not Detected (Not Detect.); Rhino/Enterovirus PCR Not Detected (Not Detect.)
[2024-11-22 11:46] LABS: SARS-CoV-2 PCR Not Detected (Not Detect.)
[2024-11-22] MEDS: Haloperidol Lactate Oral Conc 10 MG/5 ML ORAL.CONC PO (11:50)
--- NOTE | 2024-11-22 16:28 | HO.PM.IMPN ---
Subjective Subjective Date of Service: 11/23/24 Interval History: fevers doss HKU1 PCR positive Review of Systems seems no new c/o talks very limited talkin Physical Exam Vital Signs: Vital Signs: Last Vital Signs Temp 98.4 F 11/22/24 14:00 Pulse 84 11/22/24 14:00 Resp 16 11/22/24 14:00 BP 123/61 11/22/24 14:00 Pulse Ox 96 11/22/24 14:00 O2 Del Method Nasal Cannula 11/22/24 14:00 O2 Flow Rate 2 11/22/24 14:00 BMI result Body Mass Index 27.9 General: AOx3, no acute distress Resp: CTA bilaterally CVS: S1, S2, RRR, +murmur radiating to neck GI: +BS, no distention,nt,bs present. Skin: Warm, dry Neuro: Cranial nerves II-XII grossly intact bilaterally. Motor grossly intact bilaterally. Generalized weakness Extremities: No edema Psych: Appropriate affect Objective Data Active Medications Acetaminophen (Acetaminophen 325 Mg Tablet) 650 mg PO Q6H PRN PRN Reason: Pain, Mild 1-3,fever,headache Last Admin: 11/21/24 23:08 Dose: 650 mg Documented By: YOUSIF Amlodipine Besylate (Amlodipine Besylate 5 Mg Tablet) 5 mg PO DAILY [facility]; Protocol Last Admin: 11/22/24 10:27 Dose: 5 mg Documented By: AYE Ascorbic Acid (Ascorbic Acid 500 Mg Tablet) 500 mg PO BID [facility] Last Admin: 11/22/24 10:27 Dose: 500 mg Documented By: AYE Aspirin (Aspirin Enteric Coated 81 Mg Tablet.) 81 mg PO DAILY [facility] Last Admin: 11/22/24 10:27 Dose: 81 mg Documented By: AYE Atorvastatin Calcium (Atorvastatin Calcium 20 Mg Tablet) 20 mg PO DAILY [facility] Last Admin: 11/22/24 10:27 Dose: 20 mg Documented By: AYE Calcium Carbonate (Calcium Carbonate 750 Mg Tab.Chew) 750 mg PO Q4H PRN PRN Reason: Heartburn Calcium Carbonate/Cholecalciferol (Calcium + Vitamin D 250 Mg Tablet) 500 mg PO BID [facility] Last Admin: 11/22/24 10:27 Dose: 500 mg Documented By: AYE Docusate Sodium (Docusate Sodium 100 Mg Capsule) 100 mg PO BID [facility] Last Admin: 11/22/24 10:27 Dose: 100 mg Documented By: AYE Donepezil HCl (Donepezil Hcl 10 Mg Tablet) 10 mg PO DAILY [facility] Last Admin: 11/22/24 10:27 Dose: 10 mg Documented By: AYE Enoxaparin Sodium (Enoxaparin Sodium 40 Mg/0.4 Ml Syringe) 40 mg SUBCUT Q24H [facility] Last Admin: 11/21/24 23:08 Dose: 40 mg Documented By: YOUSIF Ferrous Sulfate (Ferrous Sulfate 324 Mg Tablet.) 324 mg PO BID [facility] Last Admin: 11/22/24 10: Dose: 324 mg Documented By: AYE Fluoxetine HCl (Fluoxetine Hcl 20 Mg Capsule) 40 mg PO BEDTIME [facility] Haloperidol Lactate (Haloperidol Lactate Oral Conc 10 Mg/5 Ml Oral.Conc) 1 mg PO DAILY [facility] Last Admin: 11/22/24 11:50 Dose: 1 mg Documented By: AYE Loratadine (Loratadine 10 Mg Tablet) 10 mg PO DAILY [facility] Last Admin: 11/22/24 10:27 Dose: 10 mg Documented By: AYE Magnesium Hydroxide (Milk Of Magnesia 30 Ml Oral.Susp) 30 ml PO DAILY PRN PRN Reason: Constipation Melatonin (Melatonin 3 Mg Tablet) 6 mg PO BEDTIME PRN PRN Reason: Insomnia Memantine (Memantine Hcl 10 Mg Tablet) 10 mg PO BID [facility] Last Admin: 11/22/24 10:27 Dose: 10 mg Documented By: AYE Mirabegron (Mirabegron 50 Mg Tab.Er.24h) 50 mg PO DAILY [facility] Last Admin: 11/22/24 10:27 Dose: 50 mg Documented By: AYE Mirtazapine (Mirtazapine 15 Mg Tablet) 15 mg PO BEDTIME [facility] Montelukast Sodium (Montelukast Sodium 10 Mg Tablet) 10 mg PO DAILY [facility] Last Admin: 11/22/24 10:27 Dose: 10 mg Documented By: AYE Omeprazole (Omeprazole 40 Mg Capsule.) 40 mg PO DAILY@0630 [facility] Ondansetron HCl (Ondansetron Hcl 4 Mg/2 Ml Vial) 4 mg IVPUSH Q8H PRN PRN Reason: Nausea and Vomiting Sodium Chloride (0.9 % Sodium Chloride Flush 3 Ml Syringe) 3 ml IVFLUSH QSHIFT [facility] Last Admin: 11/22/24 16:10 Dose: Not Given Documented By: AYE Non-Admin Reason: Previously Administered Trazodone HCl (Trazodone Hcl 50 Mg Tablet) 50 mg PO BEDTIME [facility] Labs 11/21/24 15:23 11/21/24 15:23 Labs: Laboratory Results - last 24 hr 11/21/24 11/21/24 11/21/24 20:05 20:12 20:29 Hold Blue Top SEE NOTE Lactic Acid 1.3 Troponin I High Sens 30.4 H D Urine Color Yellow Urine Appearance Clear Urine pH 6.5 Ur Specific [place] >= 1.030 H Urine Protein Trace Urine Glucose (UA) 100 H Urine Ketones 15 Urine Blood Trace H Urine Nitrite Negative Ur Leukocyte Esterase Negative Urine RBC 3-5 H Urine WBC 0-5 Ur Squamous Epith Cells 3-5 Urine Bacteria 4+ Hyaline Casts 0-2 Respiratory Panel Major Adenovirus (Rapid PCR) B.pert (TEM-PCR) B.parapertussis DNA PCR C. pneumoniae DNA (PCR) Coronavirus OC43 (PCR) Coronavirus HKU1 (PCR) Coronavirus 229E (PCR) Coronavirus NL63 (PCR) Human Metapneumovir PCR Influenza A (RT-PCR) Influenza B (RT-PCR) M. pneumoniae (PCR) Parainfluenza 1 (PCR) Parainfluenza 2 (PCR) Parainfluenza 3 (PCR) Parainfluenza 4 (PCR) RSV (PCR) Entero/Rhino (PCR) SARS-CoV-2 RNA (RT-PCR) 11/21/24 22:11 Hold Blue Top Lactic Acid Troponin I High Sens Urine Color Urine Appearance Urine pH Ur Specific [place] Urine Protein Urine Glucose (UA) Urine Ketones Urine Blood Urine Nitrite Ur Leukocyte Esterase Urine RBC Urine WBC Ur Squamous Epith Cells Urine Bacteria Hyaline Casts Respiratory Panel Major See Note Adenovirus (Rapid PCR) Not Detected B.pert (TEM-PCR) Not Detected B.parapertussis DNA PCR Not Detected C. pneumoniae DNA (PCR) Not Detected Coronavirus OC43 (PCR) Not Detected Coronavirus HKU1 (PCR) Detected A Coronavirus 229E (PCR) Not Detected Coronavirus NL63 (PCR) Not Detected Human Metapneumovir PCR Not Detected Influenza A (RT-PCR) Not Detected Influenza B (RT-PCR) Not Detected M. pneumoniae (PCR) Not Detected Parainfluenza 1 (PCR) Not Detected Parainfluenza 2 (PCR) Not Detected Parainfluenza 3 (PCR) Not Detected Parainfluenza 4 (PCR) Not Detected RSV (PCR) Not Detected Entero/Rhino (PCR) Not Detected SARS-CoV-2 RNA (RT-PCR) Not Detected Assessment and Plan (1) Generalized weakness: Status: Acute (2) Fever: Status: Acute Assessment and Plan: 89-year-old Occitan-speaking female with a PMH significant for?HTN, hx of CVA, severe , cirrhosis, and vascular/Alzheimer's dementia who presents to the ED with generalized weakness, difficulty ambulating on her own, and overall generally feeling unwell. Pt will be admitted to the hospital under observation for treatment and further evaluation of fever and hypoxia of unclear etiology. FUO: unclear ?hypoxia -vitals no reading below 90% CXR negative, CT abdomen and pelvis negative for acute abdomen, UA showing bacteria but no nitrites or leukocyte esterase Does not meet SIRS criteria: Fever, but no tachycardia, tachypnea, or leukocytosis; lactic acid WNL at 1.3. blood culture pending respiratory panel-positive for doss virus hku1. d/w staff -Titrate supplemental O2 >92, wean as tolerated Generalized weakness PT evaluation Elevated troponin Troponin 30.4, reduced from previous of 63.0 on 07/09/2024 Patient with chronically elevated troponins EKG without significant ischemic changes, patient asymptomatic Abdominal pain seems improving Appears chronic? CT of abdomen negative for acute abdomen Symptomatic treatment Hx of CVA Continue aspirin, statin HTN Continue amlodipine Alzheimer's/vascular dementia Continue donepezil haloperidol, memantine DNR/DNI DVT Prophylaxis: Lovenox ongoing admitted to the hospital under observation for treatment and further evaluation of generalized weakness in the setting of fevers /covid. Quality Stroke Does the patient have a stroke diagnosis?: No VTE Prior VTE?: No VTE Risk Level:: Medical - moderate - high VTE Device Contraindication: Treatment Not Indicated VTE Drug Contraindication: N/A - Med Ordered
[2024-11-22] MEDS: Acetaminophen 325 MG TABLET 650 MG PO (22:02)
[2024-11-22] MEDS: FLUoxetine HCl 20 MG CAPSULE 40 MG PO (22:03)
[2024-11-22] MEDS: traZODone HCL 50 MG TABLET PO (22:04)
[2024-11-22] MEDS: Enoxaparin Sodium 40 MG/0.4 ML SYRINGE SUBCUT (22:06)
[2024-11-22] MEDS: Mirtazapine 15 MG TABLET PO (22:06)
[2024-11-23] MEDS: 0.9 % Sodium Chloride Flush 3 ML SYRINGE IVFLUSH ×3 (01:34→14:13)
[2024-11-23 06:00] VITALS: BP 157/71; PULSE 68; RESP 18; TEMP 36.1; O2SAT 95
[2024-11-23] MEDS: Acetaminophen 325 MG TABLET 650 MG PO ×2 (06:26→20:19)
[2024-11-23] MEDS: Omeprazole 40 MG CAPSULE.DR PO (06:27)
[2024-11-23] MEDS: Docusate Sodium 100 MG CAPSULE PO ×2 (08:19→20:18)
[2024-11-23] MEDS: Donepezil HCl 10 MG TABLET PO (08:19)
[2024-11-23] MEDS: Loratadine 10 MG TABLET PO (08:19)
[2024-11-23] MEDS: Aspirin Enteric Coated 81 MG TABLET.DR PO (08:19)
[2024-11-23] MEDS: Ascorbic Acid 500 MG TABLET PO ×2 (08:19→20:17)
[2024-11-23] MEDS: Ferrous Sulfate 324 MG TABLET.DR PO ×2 (08:20→20:18)
[2024-11-23] MEDS: amLODIPine Besylate 5 MG TABLET PO (08:20)
[2024-11-23] MEDS: Mirabegron 50 MG TAB.ER.24H PO (08:20)
[2024-11-23] MEDS: Calcium + Vitamin D 250 MG TABLET 500 MG PO ×2 (08:20→20:17)
[2024-11-23] MEDS: Montelukast Sodium 10 MG TABLET PO (08:20)
[2024-11-23] MEDS: Atorvastatin Calcium 20 MG TABLET PO (08:20)
[2024-11-23] MEDS: Memantine HCl 10 MG TABLET PO ×2 (08:20→20:19)
[2024-11-23] MEDS: Haloperidol Lactate Oral Conc 10 MG/5 ML ORAL.CONC PO (08:21)
--- NOTE | 2024-11-23 12:19 | MHC.CM.PN ---
Addendum entered by Jessica Bennett 11/23/24 12:21: HCP/POA/MOLST ON FILE PCP: [facility] FIGUEREDO Original Note: CM SPOKE TO PTS GRAND DAUGHTER/HCP, ANA [phone] SHE REPORTS THE PT LIVES ALONE AND HER SON CHECKS ON HER REGULARLY PT HAS DAILY [employer] WELL PT USES A [employer] FOR DME PT AND FAMILY ARE AGREEABLE TO STR WHICH HAS BEEN RECOMMENDED THEY REPORT [place] WOULD BE PREFERABLE, HOWEVER THEY ARE ALSO AGREEABLE TO [facility] DCP PENDING BED OFFERS
--- NOTE | 2024-11-23 12:56 | P.DS_ITS ---
DS: Providers Provider Date of Service: 11/23/24 Date of admission: 11/21/24 22:05 Date of discharge: 11/23/24 Primary care physician: Myah Singh MD Consults: 11/23/24 00:29 Consult to Wound Care Routine Reason for consultation: redness to coccyx Attending physician on discharge: Lavinia Hauser Discharging clinician: Lavinia Hauser DS: Diagnosis Discharge Diagnosis (1) Generalized weakness: Status: Acute (2) Fever: Status: Acute DS: Summary Hospital Course Hospital Course: ACS-51-qgor-old Andorran-speaking female with a PMH significant for?HTN, hx of CVA, severe , cirrhosis, and vascular/Alzheimer's dementia who presents to the ED with generalized weakness, difficulty ambulating on her own, and overall generally feeling unwell. Patient is a poor historian and unable to provide many specifics about what brought her into the hospital today, or what she has been experiencing lately at home. Patient apparently lives by herself and it is unclear what help she receives. Vaguely reports feeling unbalanced but denies falling. Unclear when last fall at home was. Has also been experiencing lower abdominal pain, though time of onset unclear. Some nausea but no vomiting. No diarrhea. Denies shortness of breath, difficulty breathing, MACHADO, or cough. Chest pain/pressure, palpitations. ? In the ED pt was febrile up to 101.5 and hypertensive up to 161/66. Labs were grossly unremarkable and around baseline for patient. No leukocytosis. Stable H&H. No significant electrolyte abnormalities. Renal function baseline. Initial troponin 30.4 which is at baseline in lower than previous. Hepatic function baseline. UA negative for nitrites and leukocyte esterase, but showing 3-5 epithelial cells and 4+ bacteria. Likely colonized and/or contaminated. Tested negative for flu, COVID, RSV. Chest x-ray negative for acute intrathoracic disease. CT of abdomen/pelvis negative for acute abdomen. EKG demonstrated normal sinus rhythm with RBBB, similar to previous. Pt was treated with acetaminophen and ceftriaxone. Pt will be admitted to the hospital under observation for treatment and further evaluation of fever and hypoxia of unclear etiology. Hospital course: 89-year-old Andorran-speaking female with a PMH significant for?HTN, hx of CVA, severe , cirrhosis, and vascular/Alzheimer's dementia who presents to the ED with generalized weakness, difficulty ambulating on her own, and overall generally feeling unwell. Pt will be admitted to the hospital under observation for treatment and further evaluation of fever and questionable hypoxia : Patient workup CXR negative, CT abdomen and pelvis negative for acute abdomen, UA showing bacteria but no nitrites or leukocyte esterase. Respiratory viral panel-positive forcorona virus hku1. Blood culture negative at 24 hours. No new fever. Patient denies any urinary complaints or respiratory or abdominal pain currently. Discussed with the family she seems to be at her baseline, PT recommended rehab. plan: continue miralex 17 gm po daily. Above management discussed with the patient family in detail length they understand and in agreement with the above plan, time spent 40 minute. Time Attestation Total time managing care of this patient today: 40 mintues. Discharge Coordination Time (in mins): 40 min Quality: Safe Use of Opioids Does Pt have an Active Cancer Diagnosis on the Problem List?: No Quality: Stroke Does the patient have a stroke diagnosis?: No Physical Exam Vital Signs: Vital Signs: Last Vital Signs Temp 96.9 F 11/23/24 06:00 Pulse 68 11/23/24 06:00 Resp 18 11/23/24 06:00 BP 157/71 H 11/23/24 06:00 Pulse Ox 95 11/23/24 06:00 O2 Del Method Room Air 11/23/24 06:00 O2 Flow Rate 2 11/22/24 21:44 BMI result Body Mass Index 27.9 General: AOx3, no acute distress Resp: CTA bilaterally CVS: S1, S2, RRR, +murmur radiating to neck GI: +BS, no distention, with left-sided tenderness Skin: Warm, dry Neuro: Cranial nerves II-XII grossly intact bilaterally. Motor grossly intact bilaterally. Generalized weakness Extremities: No edema Psych: Appropriate affect DS: Data Data Completed and Pending Completed studies during hospitalization [Text1]: Procedures Introduction of Remdesivir Anti-infective into Peripheral Vein, Percutaneous Approach, [employer] 5 (12/01/21) Labs on day of discharge: Preliminary micro results at discharge 11/21/24 20:12 Blood Culture - Preliminary Blood - Venous No growth after 24 hours. 11/21/24 20:05 Blood Culture - Preliminary Blood - Venous No growth after 24 hours. Imaging Chest x-ray: Radiologist's impression: ITS Impressions Chest X-Ray 11/21/24 13:44 IMPRESSION: No acute intrathoracic disease. Large hiatal hernia. Electronically signed by: Selvin Herrera MD 11/21/2024 03:23 PM EST RP Abdomen/Pelvis CT 11/21/24 18:34 IMPRESSION: Diffuse colonic diverticulosis and moderate constipation. No evidence of diverticulitis or obstruction. Bilateral simple renal cysts. Mild left hepatomegaly measuring 13 cm. Fleischner guidelines were followed. Electronically signed by: Vidal Moreno MD 11/21/2024 08:45 PM EST RP Discharge Plan Discharge Anticipated Discharge Date/Time: 11/23/24 12:46 Patient Disposition: er [facility] Discharge Diagnosis: fever sec to viral sickness, constipation Referrals: Myah Singh MD [Primary Care Provider] - 1 Week Discharge Medications: New polyethylene glycol 3350 17 gram Powder In Packet 17 g PO DAILY Qty: 30 0RF Continued calcium carbonate-vitamin D3 [Calcium 600 + D(3)] 600 mg-5 mcg (200 unit) tablet 1 tab PO BID ascorbic acid (vitamin C) [Vitamin C] 500 mg tablet 1 tab PO BID mirtazapine 15 mg tablet 1 tab PO BEDTIME ferrous sulfate 325 mg (65 mg iron) tablet,delayed release (DR/EC) 1 tab PO BID fluoxetine 40 mg capsule 40 mg PO BEDTIME donepezil 10 mg tablet 10 mg PO DAILY memantine 10 mg tablet 10 mg PO BID montelukast 10 mg tablet 10 mg PO BEDTIME lisinopril 20 mg tablet 20 mg PO DAILY amlodipine 5 mg tablet 5 mg PO DAILY aspirin 81 mg tablet,delayed release (DR/EC) 81 mg PO DAILY cetirizine 5 mg tablet 5 mg PO DAILY omeprazole 40 mg capsule,delayed release(DR/EC) 40 mg PO DAILY@0630 mirabegron [Myrbetriq] 50 mg tablet extended release 24 hr 50 mg PO DAILY trazodone 50 mg tablet 50 mg PO BEDTIME haloperidol lactate 2 mg/mL concentrate 1 mg PO DAILY docusate sodium 100 mg capsule 100 mg PO BID Jardiance 10 mg tablet 10 mg PO DAILY atorvastatin 20 mg tablet 20 mg PO DAILY Discharge Orders: Discharge Order (Routine); Ordered 11/23/24 Ordered By: Lavinia Hauser Diet: Advance to usual diet Activity on Discharge: As tolerated Stand Alone Forms: Patient Portal Discharge page Print Language: Andorran Care Plan Goals: 89-year-old Andorran-speaking female with a PMH significant for?HTN, hx of CVA, severe , cirrhosis, and vascular/Alzheimer's dementia who presents to the ED with generalized weakness, difficulty ambulating on her own, and overall generally feeling unwell. Pt will be admitted to the hospital under observation for treatment and further evaluation of fever and questionable hypoxia : Patient workup CXR negative, CT abdomen and pelvis negative for acute abdomen, UA showing bacteria but no nitrites or leukocyte esterase. Respiratory viral panel-positive forcorona virus hku1. Blood culture negative at 24 hours. No new fever. Patient denies any urinary complaints or respiratory or abdominal pain currently. Discussed with the family she seems to be at her baseline, PT recommended rehab. Health Concerns: as above. Plan of Treatment: as above. Assessment: as above.
--- NOTE | 2024-11-23 13:54 | HO.PM.IMPN ---
Subjective Subjective Date of Service: 11/23/24 Interval History: constipation viral sickness Review of Systems no new fevers no cough no hypoxia Physical Exam Vital Signs: Vital Signs: Last Vital Signs Temp 96.9 F 11/23/24 06:00 Pulse 68 11/23/24 06:00 Resp 18 11/23/24 06:00 BP 157/71 H 11/23/24 06:00 Pulse Ox 95 11/23/24 06:00 O2 Del Method Room Air 11/23/24 06:00 O2 Flow Rate 2 11/22/24 21:44 BMI result Body Mass Index 27.9 General: AOx3, no acute distress Resp: CTA bilaterally CVS: S1, S2, rrr. GI: +BS, no distention, with left-sided tenderness Skin: Warm, dry Neuro: Generalized weakness, moves all ext Extremities: No edema Psych: Appropriate affect Objective Data Active Medications Acetaminophen (Acetaminophen 325 Mg Tablet) 650 mg PO Q6H PRN PRN Reason: Pain, Mild 1-3,fever,headache Last Admin: 11/23/24 06:26 Dose: 650 mg Documented By: MARY Amlodipine Besylate (Amlodipine Besylate 5 Mg Tablet) 5 mg PO DAILY [facility]; Protocol Last Admin: 11/23/24 08:20 Dose: 5 mg Documented By: SANGEETHA Ascorbic Acid (Ascorbic Acid 500 Mg Tablet) 500 mg PO BID [facility] Last Admin: 11/23/24 08:19 Dose: 500 mg Documented By: SANGEETHA Aspirin (Aspirin Enteric Coated 81 Mg Tablet.) 81 mg PO DAILY [facility] Last Admin: 11/23/24 08:19 Dose: 81 mg Documented By: SANGEETHA Atorvastatin Calcium (Atorvastatin Calcium 20 Mg Tablet) 20 mg PO DAILY [facility] Last Admin: 11/23/24 08:20 Dose: 20 mg Documented By: SANGEETHA Calcium Carbonate (Calcium Carbonate 750 Mg Tab.Chew) 750 mg PO Q4H PRN PRN Reason: Heartburn Calcium Carbonate/Cholecalciferol (Calcium + Vitamin D 250 Mg Tablet) 500 mg PO BID [facility] Last Admin: 11/23/24 08:20 Dose: 500 mg Documented By: SANGEETHA Docusate Sodium (Docusate Sodium 100 Mg Capsule) 100 mg PO BID [facility] Last Admin: 11/23/24 08:19 Dose: 100 mg Documented By: SANGEETHA Donepezil HCl (Donepezil Hcl 10 Mg Tablet) 10 mg PO DAILY [facility] Last Admin: 11/23/24 08:19 Dose: 10 mg Documented By: SANGEETHA Enoxaparin Sodium (Enoxaparin Sodium 40 Mg/0.4 Ml Syringe) 40 mg SUBCUT Q24H [facility] Last Admin: 11/22/24 22:06 Dose: 40 mg Documented By: MARY Ferrous Sulfate (Ferrous Sulfate 324 Mg Tablet.) 324 mg PO BID [facility] Last Admin: 11/23/24 08:20 Dose: 324 mg Documented By: SANGEETHA Fluoxetine HCl (Fluoxetine Hcl 20 Mg Capsule) 40 mg PO BEDTIME [facility] Last Admin: 11/22/24 22:03 Dose: 40 mg Documented By: MARY Haloperidol Lactate (Haloperidol Lactate Oral Conc 10 Mg/5 Ml Oral.Conc) 1 mg PO DAILY [facility] Last Admin: 11/23/24 08:21 Dose: 1 mg Documented By: SANGEETHA Loratadine (Loratadine 10 Mg Tablet) 10 mg PO DAILY [facility] Last Admin: 11/23/24 08:19 Dose: 10 mg Documented By: SANGEETHA Magnesium Hydroxide (Milk Of Magnesia 30 Ml Oral.Susp) 30 ml PO DAILY PRN PRN Reason: Constipation Melatonin (Melatonin 3 Mg Tablet) 6 mg PO BEDTIME PRN PRN Reason: Insomnia Memantine (Memantine Hcl 10 Mg Tablet) 10 mg PO BID [facility] Last Admin: 11/23/24 08:20 Dose: 10 mg Documented By: SANGEETHA Mirabegron (Mirabegron 50 Mg Tab.Er.24h) 50 mg PO DAILY [facility] Last Admin: 11/23/24 08:20 Dose: 50 mg Documented By: SANGEETHA Mirtazapine (Mirtazapine 15 Mg Tablet) 15 mg PO BEDTIME [facility] Last Admin: 11/22/24 22:06 Dose: 15 mg Documented By: MARY Montelukast Sodium (Montelukast Sodium 10 Mg Tablet) 10 mg PO DAILY [facility] Last Admin: 11/23/24 08:20 Dose: 10 mg Documented By: SANGEETHA Omeprazole (Omeprazole 40 Mg Capsule.) 40 mg PO DAILY@0630 [facility] Last Admin: 11/23/24 06:27 Dose: 40 mg Documented By: MARY Ondansetron HCl (Ondansetron Hcl 4 Mg/2 Ml Vial) 4 mg IVPUSH Q8H PRN PRN Reason: Nausea and Vomiting Polyethylene Glycol (Polyethylene Glycol 3350 17 Gm Powd.Pack) 17 gm PO DAILY [facility] Sodium Chloride (0.9 % Sodium Chloride Flush 3 Ml Syringe) 3 ml IVFLUSH QSHIFT [facility] Last Admin: 11/23/24 08:26 Dose: 3 ml Documented By: SANGEETHA Trazodone HCl (Trazodone Hcl 50 Mg Tablet) 50 mg PO BEDTIME [facility] Last Admin: 11/22/24 22:04 Dose: 50 mg Documented By: MARY Labs 11/21/24 15:23 11/21/24 15:23 Microbiology Microbiology Results: Microbiology 11/21/24 20:12 Blood Culture - Preliminary Blood - Venous No growth after 24 hours. 11/21/24 20:05 Blood Culture - Preliminary Blood - Venous No growth after 24 hours. Assessment and Plan (1) Generalized weakness: Status: Acute (2) Fever: Status: Acute Assessment and Plan: 89-year-old Tamaz[place]-speaking female with a PMH significant for?HTN, hx of CVA, severe , cirrhosis, and vascular/Alzheimer's dementia who presents to the ED with generalized weakness, difficulty ambulating on her own, and overall generally feeling unwell. Pt will be admitted to the hospital under observation for treatment and further evaluation of fever and hypoxia of unclear etiology. FUO: unclear ?hypoxia -vitals no reading below 90% CXR negative, CT abdomen and pelvis negative for acute abdomen, UA showing bacteria but no nitrites or leukocyte esterase Does not meet SIRS criteria: Fever, but no tachycardia, tachypnea, or leukocytosis; lactic acid WNL at 1.3. blood culture pending respiratory panel-positive for doss virus hku1. d/w staff -Titrate supplemental O2 >92, wean as tolerated Generalized weakness PT evaluation Elevated troponin Troponin 30.4, reduced from previous of 63.0 on 07/09/2024 Patient with chronically elevated troponins EKG without significant ischemic changes, patient asymptomatic Abdominal pain seems improving Appears chronic? CT of abdomen negative for acute abdomen Symptomatic treatment Hx of CVA Continue aspirin, statin HTN Continue amlodipine Alzheimer's/vascular dementia Continue donepezil haloperidol, memantine contipation - continue colace,added miralex DNR/DNI DVT Prophylaxis: Lovenox ongoing admitted to the hospital under observation for treatment and further evaluation of generalized weakness in the setting of fevers /covid. Quality Stroke Does the patient have a stroke diagnosis?: No VTE Prior VTE?: No VTE Risk Level:: Medical - moderate - high VTE Device Contraindication: Treatment Not Indicated VTE Drug Contraindication: N/A - Med Ordered
[2024-11-23 14:00] VITALS: BP 120/57; PULSE 78; RESP 16; TEMP 36.7; O2SAT 97
[2024-11-23] MEDS: polyethylene glycoL 3350 17 GM POWD.PACK PO (14:13)
[2024-11-23 15:21] VITALS: BP 122/60; PULSE 77; RESP 18; TEMP 36.6; O2SAT 94
[2024-11-23 19:59] VITALS: BP 144/66; PULSE 78; RESP 18; TEMP 36.4
[2024-11-23] MEDS: FLUoxetine HCl 20 MG CAPSULE 40 MG PO (20:17)
[2024-11-23] MEDS: Mirtazapine 15 MG TABLET PO (20:18)
[2024-11-23] MEDS: traZODone HCL 50 MG TABLET PO (20:18)
--- NOTE | 2024-11-23 22:18 | PC.NURSE ---
Addendum entered by Meenakshi José RN 11/24/24 04:57: New orders did not show any improvement in abd pain, Nicole at bedside to assess patient, new orders placed per JAN. Original Note: pt reporting 8/10 abdominal pain, with abd tender to palpation. Kathryn Noyola made aware, and placed new orders.
[2024-11-23] MEDS: traMADoL HCL 50 MG TABLET 25 MG PO (22:51)
[2024-11-23] MEDS: Enoxaparin Sodium 40 MG/0.4 ML SYRINGE SUBCUT (22:51)
[2024-11-24] MEDS: Dicyclomine HCl 10 MG CAPSULE PO (00:13)
[2024-11-24] MEDS: 0.9 % Sodium Chloride Flush 3 ML SYRINGE IVFLUSH ×4 (00:13→21:13)
[2024-11-24] MEDS: Melatonin 3 MG TABLET 6 MG PO (00:29)
--- NOTE | 2024-11-24 01:40 | PM.EVENT ---
Event Note Date of Service: 11/24/24 Event Note: pt unable to sleep due to abd pain, rating it an 8/10. reports it on the LUQ and LLQ. had 2+ BMs this afternoon after multiple constipation meds earlier today. PE: pt laying awake in bed, does not appear uncomfortable abd: soft, tender RUQ with light palpation, no reproducible pain when distracted. no pain on L side as she described and pointed to previously, BS active A/P: likely cramping from miralax and docusate given earlier. was given tramadol 25mg without effect. add 1 dose of dicyclomine 10mg for cramping. avoid opiates if possible due to constipation. Time Spent With Patient Time: Total time managing care of this patient today ____ minutes.
[2024-11-24 06:00] VITALS: BP 156/74; PULSE 87; RESP 18; TEMP 36.3; O2SAT 93
[2024-11-24] MEDS: Omeprazole 40 MG CAPSULE.DR PO (06:06)
[2024-11-24] MEDS: Montelukast Sodium 10 MG TABLET PO (08:51)
[2024-11-24] MEDS: Docusate Sodium 100 MG CAPSULE PO ×2 (08:51→21:09)
[2024-11-24] MEDS: Atorvastatin Calcium 20 MG TABLET PO (08:51)
[2024-11-24] MEDS: Memantine HCl 10 MG TABLET PO ×2 (08:51→21:09)
[2024-11-24] MEDS: Ascorbic Acid 500 MG TABLET PO ×2 (08:51→21:09)
[2024-11-24] MEDS: Calcium + Vitamin D 250 MG TABLET 500 MG PO ×2 (08:51→21:09)
[2024-11-24] MEDS: Ferrous Sulfate 324 MG TABLET.DR PO ×2 (08:51→21:09)
[2024-11-24] MEDS: Mirabegron 50 MG TAB.ER.24H PO (08:51)
[2024-11-24] MEDS: Donepezil HCl 10 MG TABLET PO (08:51)
[2024-11-24] MEDS: Loratadine 10 MG TABLET PO (08:51)
[2024-11-24] MEDS: Haloperidol Lactate Oral Conc 10 MG/5 ML ORAL.CONC PO (08:52)
[2024-11-24] MEDS: amLODIPine Besylate 5 MG TABLET PO (08:52)
[2024-11-24] MEDS: Aspirin Enteric Coated 81 MG TABLET.DR PO (08:52)
[2024-11-24] MEDS: polyethylene glycoL 3350 17 GM POWD.PACK PO (09:15)
[2024-11-24] MEDS: Acetaminophen 325 MG TABLET 650 MG PO (09:50)
--- NOTE | 2024-11-24 10:19 | MHC.CM.PN ---
PT AND GRANDDAUGHTER AGREEABLE TO STR REFERRALS SENT YESTERDAY [facility] WAS THE ONLY BED OFFER, HOWEVER PTS GRANDDAUGHTER DECLINED AND AGREED TO REFERRAL BEING EXPANDED SHE HAS NO ACCEPTED A BED OFFER FROM [facility] WILL SUBMIT FOR AUTH PT WILL DC TO [facility] TODAY VS TOMORROW PENDING [facility] AUTH BLS TRANSPORT
--- NOTE | 2024-11-24 12:19 | P.PNIM_ITS ---
Subjective Subjective Date of Service: 11/24/24 Interval History: says body pains -nonspecific. Review of Systems overnight events noted. no fevers Physical Exam 2 Vital Signs: Vital Signs: Last Vital Signs Temp 97.3 F 11/24/24 06:00 Pulse 87 11/24/24 06:00 Resp 18 11/24/24 06:00 BP 156/74 H 11/24/24 06:00 Pulse Ox 93 11/24/24 06:00 O2 Del Method Room Air 11/24/24 06:00 O2 Flow Rate 2 11/22/24 21:44 BMI result Body Mass Index 27.9 General: AOx3, no acute distress Resp: CTA bilaterally CVS: S1, S2, rrr. GI: +BS, no distention, with left-sided tenderness Skin: Warm, dry Neuro: Generalized weakness, moves all ext Extremities: No edema Psych: Appropriate affect Objective Data Active Medications Acetaminophen (Acetaminophen 325 Mg Tablet) 650 mg PO Q6H PRN PRN Reason: Pain, Mild 1-3,fever,headache Last Admin: 11/24/24 09:50 Dose: 650 mg Documented By: VESTA Amlodipine Besylate (Amlodipine Besylate 5 Mg Tablet) 5 mg PO DAILY [facility]; Protocol Last Admin: 11/24/24 08:52 Dose: 5 mg Documented By: VESTA Ascorbic Acid (Ascorbic Acid 500 Mg Tablet) 500 mg PO BID [facility] Last Admin: 11/24/24 08:51 Dose: 500 mg Documented By: VESTA Aspirin (Aspirin Enteric Coated 81 Mg Tablet.) 81 mg PO DAILY [facility] Last Admin: 11/24/24 08:52 Dose: 81 mg Documented By: VESTA Atorvastatin Calcium (Atorvastatin Calcium 20 Mg Tablet) 20 mg PO DAILY [facility] Last Admin: 11/24/24 08:51 Dose: 20 mg Documented By: VESTA Calcium Carbonate (Calcium Carbonate 750 Mg Tab.Chew) 750 mg PO Q4H PRN PRN Reason: Heartburn Calcium Carbonate/Cholecalciferol (Calcium + Vitamin D 250 Mg Tablet) 500 mg PO BID [facility] Last Admin: 11/24/24 08:51 Dose: 500 mg Documented By: VESTA Docusate Sodium (Docusate Sodium 100 Mg Capsule) 100 mg PO BID [facility] Last Admin: 11/24/24 08:51 Dose: 100 mg Documented By: VESTA Donepezil HCl (Donepezil Hcl 10 Mg Tablet) 10 mg PO DAILY [facility] Last Admin: 11/24/24 08:51 Dose: 10 mg Documented By: VESTA Enoxaparin Sodium (Enoxaparin Sodium 40 Mg/0.4 Ml Syringe) 40 mg SUBCUT Q24H [facility] Last Admin: 11/23/24 22:51 Dose: 40 mg Documented By: MARY Ferrous Sulfate (Ferrous Sulfate 324 Mg Tablet.) 324 mg PO BID [facility] Last Admin: 11/24/24 08:51 Dose: 324 mg Documented By: VESTA Fluoxetine HCl (Fluoxetine Hcl 20 Mg Capsule) 40 mg PO BEDTIME [facility] Last Admin: 11/23/24 20:17 Dose: 40 mg Documented By: MARY Haloperidol Lactate (Haloperidol Lactate Oral Conc 10 Mg/5 Ml Oral.Conc) 1 mg PO DAILY [facility] Last Admin: 11/24/24 08:52 Dose: 1 mg Documented By: VESTA Loratadine (Loratadine 10 Mg Tablet) 10 mg PO DAILY [facility] Last Admin: 11/24/24 08:51 Dose: 10 mg Documented By: VESTA Magnesium Hydroxide (Milk Of Magnesia 30 Ml Oral.Susp) 30 ml PO DAILY PRN PRN Reason: Constipation Melatonin (Melatonin 3 Mg Tablet) 6 mg PO BEDTIME PRN PRN Reason: Insomnia Last Admin: 11/24/24 00:29 Dose: 6 mg Documented By: MARY Memantine (Memantine Hcl 10 Mg Tablet) 10 mg PO BID [facility] Last Admin: 11/24/24 08:51 Dose: 10 mg Documented By: VESTA Mirabegron (Mirabegron 50 Mg Tab.Er.24h) 50 mg PO DAILY [facility] Last Admin: 11/24/24 08:51 Dose: 50 mg Documented By: VESTA Mirtazapine (Mirtazapine 15 Mg Tablet) 15 mg PO BEDTIME [facility] Last Admin: 11/23/24 20:18 Dose: 15 mg Documented By: MARY Montelukast Sodium (Montelukast Sodium 10 Mg Tablet) 10 mg PO DAILY [facility] Last Admin: 11/24/24 08:51 Dose: 10 mg Documented By: VESTA Omeprazole (Omeprazole 40 Mg Capsule.) 40 mg PO DAILY@0630 [facility] Last Admin: 12/29/24 06:06 Dose: 40 mg Documented By: MARY Ondansetron HCl (Ondansetron Hcl 4 Mg/2 Ml Vial) 4 mg IVPUSH Q8H PRN PRN Reason: Nausea and Vomiting Polyethylene Glycol (Polyethylene Glycol 3350 17 Gm Powd.Pack) 17 gm PO DAILY [facility] Last Admin: 11/24/24 09:15 Dose: 17 gm Documented By: VESTA Sodium Chloride (0.9 % Sodium Chloride Flush 3 Ml Syringe) 3 ml IVFLUSH QSHIFT [facility] Last Admin: 11/24/24 09:10 Dose: 3 ml Documented By: VESTA Trazodone HCl (Trazodone Hcl 50 Mg Tablet) 50 mg PO BEDTIME [facility] Last Admin: 11/23/24 20:18 Dose: 50 mg Documented By: MARY Labs 11/21/24 15:23 11/21/24 15:23 Microbiology Microbiology Results: Microbiology 11/21/24 20:12 Blood Culture - Preliminary Blood - Venous No growth after 48 hours. 11/21/24 20:05 Blood Culture - Preliminary Blood - Venous No growth after 48 hours. Assessment and Plan (1) Generalized weakness: Status: Acute (2) Fever: Status: Acute Assessment and Plan: 89-year-old Greenlandic-speaking female with a PMH significant for?HTN, hx of CVA, severe , cirrhosis, and vascular/Alzheimer's dementia who presents to the ED with generalized weakness, difficulty ambulating on her own, and overall generally feeling unwell. Pt will be admitted to the hospital under observation for treatment and further evaluation of fever and hypoxia of unclear etiology. FUO: no fevers no hypoxia CXR negative, CT abdomen and pelvis negative for acute abdomen, UA showing bacteria but no nitrites or leukocyte esterase Does not meet SIRS criteria: Fever, but no tachycardia, tachypnea, or leukocytosis; lactic acid WNL at 1.3. blood culture neg@48hrs respiratory panel-positive for doss virus hku1. d/w staff -Titrate supplemental O2 >92, wean as tolerated Generalized weakness PT evaluation Elevated troponin Troponin 30.4, reduced from previous of 63.0 on 07/09/2024 Patient with chronically elevated troponins EKG without significant ischemic changes, patient asymptomatic Abdominal pain seems improving Appears chronic? CT of abdomen negative for acute abdomen Symptomatic treatment Hx of CVA Continue aspirin, statin HTN Continue amlodipine Alzheimer's/vascular dementia Continue donepezil haloperidol, memantine contipation - continue colace,added miralex DNR/DNI DVT Prophylaxis: Lovenox ongoing admitted to the hospital under observation for treatment and further evaluation of generalized weakness in the setting of fevers /covid. Quality Stroke Does the patient have a stroke diagnosis?: No VTE Prior VTE?: No VTE Risk Level:: Medical - moderate - high VTE Device Contraindication: Treatment Not Indicated VTE Drug Contraindication: N/A - Med Ordered
[2024-11-24 14:00] VITALS: BP 105/58; PULSE 78; RESP 16; TEMP 36.1; O2SAT 91
[2024-11-24 19:37] VITALS: BP 117/59; PULSE 76; RESP 18; TEMP 36.5; O2SAT 90
[2024-11-24] MEDS: FLUoxetine HCl 20 MG CAPSULE 40 MG PO (21:09)
[2024-11-24] MEDS: traZODone HCL 50 MG TABLET PO (21:09)
[2024-11-24] MEDS: Mirtazapine 15 MG TABLET PO (21:09)
[2024-11-24] MEDS: Enoxaparin Sodium 40 MG/0.4 ML SYRINGE SUBCUT (21:24)
[2024-11-25 03:33] VITALS: BP 150/68; PULSE 66; RESP 16; TEMP 36.1; O2SAT 96
[2024-11-25] MEDS: Omeprazole 40 MG CAPSULE.DR PO (06:16)
[2024-11-25 07:50] VITALS: BP 170/71; PULSE 70; RESP 17; TEMP 36.2; O2SAT 97
[2024-11-25] MEDS: polyethylene glycoL 3350 17 GM POWD.PACK PO (08:01)
[2024-11-25] MEDS: Haloperidol Lactate Oral Conc 10 MG/5 ML ORAL.CONC PO (08:02)
[2024-11-25] MEDS: Memantine HCl 10 MG TABLET PO (08:03)
[2024-11-25] MEDS: Ferrous Sulfate 324 MG TABLET.DR PO (08:03)
[2024-11-25] MEDS: Aspirin Enteric Coated 81 MG TABLET.DR PO (08:03)
[2024-11-25] MEDS: Calcium + Vitamin D 250 MG TABLET 500 MG PO (08:03)
[2024-11-25] MEDS: Atorvastatin Calcium 20 MG TABLET PO (08:03)
[2024-11-25] MEDS: Mirabegron 50 MG TAB.ER.24H PO (08:03)
[2024-11-25] MEDS: Donepezil HCl 10 MG TABLET PO (08:03)
[2024-11-25] MEDS: Ascorbic Acid 500 MG TABLET PO (08:03)
[2024-11-25] MEDS: Docusate Sodium 100 MG CAPSULE PO (08:03)
[2024-11-25] MEDS: Loratadine 10 MG TABLET PO (08:03)
[2024-11-25] MEDS: amLODIPine Besylate 5 MG TABLET PO (08:03)
[2024-11-25] MEDS: Montelukast Sodium 10 MG TABLET PO (08:03)
[2024-11-25] MEDS: 0.9 % Sodium Chloride Flush 3 ML SYRINGE IVFLUSH (08:06)
--- NOTE | 2024-11-25 11:53 | P.PNIM_ITS ---
Subjective Subjective Date of Service: 11/25/24 Interval History: no new c/o Review of Systems comfortable resting in bed. Physical Exam 2 Vital Signs: Vital Signs: Last Vital Signs Temp 97.1 F 11/25/24 07:50 Pulse 70 11/25/24 07:50 Resp 17 11/25/24 07:50 BP 170/71 H 11/25/24 07:50 Pulse Ox 97 11/25/24 07:50 O2 Del Method Nasal Cannula 11/25/24 07:50 O2 Flow Rate 2 11/25/24 07:50 BMI result Body Mass Index 27.9 General: near her baseline , comfortable Resp: CTA bilaterally CVS: S1, S2, rrr. GI: +BS, no distention, with left-sided tenderness Skin: Warm, dry Neuro: Generalized weakness, moves all ext Extremities: No edema Psych: Appropriate affect Objective Data Active Medications Acetaminophen (Acetaminophen 325 Mg Tablet) 650 mg PO Q6H PRN PRN Reason: Pain, Mild 1-3,fever,headache Last Admin: 11/24/24 09:50 Dose: 650 mg Documented By: VESTA Amlodipine Besylate (Amlodipine Besylate 5 Mg Tablet) 5 mg PO DAILY [facility]; Protocol Last Admin: 11/25/24 08:03 Dose: 5 mg Documented By: JEANNETTE Ascorbic Acid (Ascorbic Acid 500 Mg Tablet) 500 mg PO BID [facility] Last Admin: 11/25/24 08:03 Dose: 500 mg Documented By: JEANNETTE Aspirin (Aspirin Enteric Coated 81 Mg Tablet.) 81 mg PO DAILY [facility] Last Admin: 11/25/24 08:03 Dose: 81 mg Documented By: JEANNETTE Atorvastatin Calcium (Atorvastatin Calcium 20 Mg Tablet) 20 mg PO DAILY [facility] Last Admin: 11/25/24 08:03 Dose: 20 mg Documented By: JEANNETTE Calcium Carbonate (Calcium Carbonate 750 Mg Tab.Chew) 750 mg PO Q4H PRN PRN Reason: Heartburn Calcium Carbonate/Cholecalciferol (Calcium + Vitamin D 250 Mg Tablet) 500 mg PO BID [facility] Last Admin: 11/25/24 08:03 Dose: 500 mg Documented By: JEANNETTE Docusate Sodium (Docusate Sodium 100 Mg Capsule) 100 mg PO BID [facility] Last Admin: 11/25/24 08:03 Dose: 100 mg Documented By: JEANNETTE Donepezil HCl (Donepezil Hcl 10 Mg Tablet) 10 mg PO DAILY [facility] Last Admin: 11/25/24 08:03 Dose: 10 mg Documented By: JEANNETTE Enoxaparin Sodium (Enoxaparin Sodium 40 Mg/0.4 Ml Syringe) 40 mg SUBCUT Q24H [facility] Last Admin: 11/24/24 21:24 Dose: 40 mg Documented By: KONSTANTIN Ferrous Sulfate (Ferrous Sulfate 324 Mg Tablet.) 324 mg PO BID [facility] Last Admin: 11/25/24 08:03 Dose: 324 mg Documented By: JEANNETTE Fluoxetine HCl (Fluoxetine Hcl 20 Mg Capsule) 40 mg PO BEDTIME [facility] Last Admin: 11/24/24 21:09 Dose: 40 mg Documented By: KONSTANTIN Haloperidol Lactate (Haloperidol Lactate Oral Conc 10 Mg/5 Ml Oral.Conc) 1 mg PO DAILY [facility] Last Admin: 11/25/24 08:02 Dose: 1 mg Documented By: JEANNETTE Loratadine (Loratadine 10 Mg Tablet) 10 mg PO DAILY [facility] Last Admin: 11/25/24 08:03 Dose: 10 mg Documented By: JEANNETTE Magnesium Hydroxide (Milk Of Magnesia 30 Ml Oral.Susp) 30 ml PO DAILY PRN PRN Reason: Constipation Melatonin (Melatonin 3 Mg Tablet) 6 mg PO BEDTIME PRN PRN Reason: Insomnia Last Admin: 11/24/24 00:29 Dose: 6 mg Documented By: MARY Memantine (Memantine Hcl 10 Mg Tablet) 10 mg PO BID [facility] Last Admin: 11/25/24 08:03 Dose: 10 mg Documented By: JEANNETTE Mirabegron (Mirabegron 50 Mg Tab.Er.24h) 50 mg PO DAILY [facility] Last Admin: 11/25/24 08:03 Dose: 50 mg Documented By: JEANNETTE Mirtazapine (Mirtazapine 15 Mg Tablet) 15 mg PO BEDTIME [facility] Last Admin: 11/24/24 21:09 Dose: 15 mg Documented By: KONSTANTIN Montelukast Sodium (Montelukast Sodium 10 Mg Tablet) 10 mg PO DAILY [facility] Last Admin: 11/25/24 08:03 Dose: 10 mg Documented By: JEANNETTE Omeprazole (Omeprazole 40 Mg Capsule.) 40 mg PO DAILY@0630 [facility] Last Admin: 11/25/24 06:16 Dose: 40 mg Documented By: KONSTANTIN Ondansetron HCl (Ondansetron Hcl 4 Mg/2 Ml Vial) 4 mg IVPUSH Q8H PRN PRN Reason: Nausea and Vomiting Polyethylene Glycol (Polyethylene Glycol 3350 17 Gm Powd.Pack) 17 gm PO DAILY [facility] Last Admin: 11/25/24 08:01 Dose: 17 gm Documented By: JEANNETTE Sodium Chloride (0.9 % Sodium Chloride Flush 3 Ml Syringe) 3 ml IVFLUSH QSHIFT [facility] Last Admin: 11/25/24 08:06 Dose: 3 ml Documented By: JEANNETTE Trazodone HCl (Trazodone Hcl 50 Mg Tablet) 50 mg PO BEDTIME [facility] Last Admin: 11/24/24 21:09 Dose: 50 mg Documented By: KONSTANTIN Labs 11/21/24 15:23 11/21/24 15:23 Assessment and Plan (1) Generalized weakness: Status: Acute (2) Fever: Status: Acute Assessment and Plan: 89-year-old [place] Citizen-speaking female with a PMH significant for?HTN, hx of CVA, severe , cirrhosis, and vascular/Alzheimer's dementia who presents to the ED with generalized weakness, difficulty ambulating on her own, and overall generally feeling unwell. Pt will be admitted to the hospital under observation for treatment and further evaluation of fever and hypoxia of unclear etiology. FUO: no fevers no hypoxia CXR negative, CT abdomen and pelvis negative for acute abdomen, UA showing bacteria but no nitrites or leukocyte esterase Does not meet SIRS criteria: Fever, but no tachycardia, tachypnea, or leukocytosis; lactic acid WNL at 1.3. blood culture neg@48hrs respiratory panel-positive for doss virus hku1. denies any abd or urinary c/o. d/w staff -Titrate supplemental O2 >92, wean as tolerated Generalized weakness PT -str. Elevated troponin Troponin 30.4, reduced from previous of 63.0 on 07/09/2024 Patient with chronically elevated troponins EKG without significant ischemic changes, patient asymptomatic Abdominal pain seems improving Appears chronic? CT of abdomen negative for acute abdomen Symptomatic treatment Hx of CVA Continue aspirin, statin HTN Continue amlodipine Alzheimer's/vascular dementia Continue donepezil haloperidol, memantine contipation - continue colace,added miralex DNR/DNI DVT Prophylaxis: Lovenox awaiting str. Quality Stroke Does the patient have a stroke diagnosis?: No VTE Prior VTE?: No VTE Risk Level:: Medical - moderate - high VTE Device Contraindication: Treatment Not Indicated VTE Drug Contraindication: N/A - Med Ordered
[2024-11-25 12:39] VITALS: BP 106/53; PULSE 78; RESP 17; TEMP 36.5; O2SAT 94
--- NOTE | 2024-11-25 12:48 | MHC.CM.PN ---
pt is hcp cassandra meyers notifoed of pts dc today to [facility]
--- NOTE | 2024-11-25 12:51 | MHC.CM.PN ---
[facility] thenevery[facility] day dry sterile dressing is not a skill so hey can not see pt .. made aware pt will be called
[2024-11-25 19:11] VITALS: BP 133/66; PULSE 78; RESP 18; TEMP 36.8; O2SAT 92
== END 2024-11-25 20:47 | disposition skilled nursing facility (03) ==
LOC: HO.ED 20:54 → HO.EDOVER 22:24 → HO.S3 23:41
PROVIDERS: Registered Nurse Emergency; Admitting Provider Student in an Organized Health Care Education/Training Program; Emergency Provider Emergency Medicine; PCP Family Medicine; Visit Provider Internal Medicine
DX: R50.9 Fever, unspecified (principal); R53.1 Weakness; I12.9 Hypertensive chronic kidney disease with stage 1 through stage 4 chronic kidney disease, or unspecified chronic kidney disease; E11.22 Type 2 diabetes mellitus with diabetic chronic kidney disease; N18.9 Chronic kidney disease, unspecified; N28.1 Cyst of kidney, acquired; R16.0 Hepatomegaly, not elsewhere classified; R07.9 Chest pain, unspecified; G30.9 Alzheimer's disease, unspecified; F02.80 Dementia in other diseases classified elsewhere, unspecified severity, without behavioral disturbance, psychotic disturbance, mood disturbance, and anxiety; F01.50 Vascular dementia, unspecified severity, without behavioral disturbance, psychotic disturbance, mood disturbance, and anxiety; R79.89 Other specified abnormal findings of blood chemistry; K59.00 Constipation, unspecified; R10.32 Left lower quadrant pain; R10.12 Left upper quadrant pain; Z79.84 Long term (current) use of oral hypoglycemic drugs; Z79.899 Other long term (current) drug therapy; Z86.73 Personal history of transient ischemic attack (TIA), and cerebral infarction without residual deficits; Z11.52 Encounter for screening for COVID-19; Z03.818 Encounter for observation for suspected exposure to other biological agents ruled out
CPT/HCPCS: 0241U; 36415; 71046; 74177; 80053; 81001; 81003; 83605; 83735; 84484; 85025; 87040; 87633; 93005; 96361; 96372; 96374; 97162; 99221; 99285; J0696; J1650; J7120; Q9967

== ENCOUNTER → 2024-11-21 14:51 | Outpatient (BNV) | payer OTHER, SELFPAY | PROVIDERS: Emergency Provider Emergency Medicine; Visit Provider Radiology Diagnostic Radiology | DX: R10.9 Unspecified abdominal pain (principal) | CPT/HCPCS: 74177 ==

== ENCOUNTER → 2024-11-21 20:07 | Outpatient (BNV) | payer OTHER, SELFPAY | PROVIDERS: Admitting Provider Student in an Organized Health Care Education/Training Program; Emergency Provider Emergency Medicine; Visit Provider Internal Medicine Cardiovascular Disease | DX: R94.31 Abnormal electrocardiogram [ECG] [EKG] (principal) | CPT/HCPCS: 93010 ==

== ENCOUNTER → 2024-11-21 22:05 | Outpatient (BNV) | payer OTHER, SELFPAY | PROVIDERS: Admitting Provider Student in an Organized Health Care Education/Training Program; Emergency Provider Emergency Medicine; Visit Provider Student in an Organized Health Care Education/Training Program | DX: R53.1 Weakness (principal); R50.9 Fever, unspecified | CPT/HCPCS: 99222; 99231; 99232; 99239; 99499 ==

== ENCOUNTER 2025-02-18 10:07 | Observation (INO) | payer OTHER, SELFPAY ==
--- NOTE | ~2025-02-18 | CT_ITS ---
CLINICAL HISTORY: abd pain CT abdomen and pelvis with contrast Comparison: CT/SR - CT ABDOMEN PELVIS W IV CON - 11/21/24 18:34 EST Findings: The visualized portions of the lungs are normal in appearance. Large hiatal hernia. The liver is normal in size without suspicious focal hepatic lesions. No intrahepatic or extrahepatic ductal dilatation is seen. The hepatic and portal veins are patent. Cholecystectomy. Pancreas, spleen and adrenals are normal in appearance. No suspicious focal lesion of the kidneys. There are bilateral renal cysts. No hydronephrosis or calculi. The abdominal aorta demonstrates no evidence of aneurysmal dilatation or dissection. Atherosclerosis calcification of the aorta. Colonic diverticulosis with bowel wall thickening of the sigmoid colon. There is moderate amount of fecal material within the colon. No evidence of bowel obstruction. Appendix is not visualized. Hysterectomy. No intraperitoneal free air or fluid is visualized. No pathologic lymphadenopathy is seen. There are no osseous or soft tissue abnormalities. IMPRESSION: Colonic diverticulosis with bowel wall thickening of the sigmoid colon concerning for acute diverticulitis. No evidence of bowel perforation or abscess. Correlation with colonoscopy findings as indicated. Additional findings as above. This document has been electronically signed by: Wilfredo Jordan MD on 02/18/2025 16:44:32
--- NOTE | ~2025-02-18 | XR_ITS ---
EXAMINATION: XR CHEST CLINICAL INFORMATION: cp COMPARISON: November 21, 2024. TECHNIQUE: Frontal view of the chest was obtained. FINDINGS: Pulmonary reticular pattern. No consolidation, pleural effusion or pneumothorax. Cardiomediastinal silhouette demonstrates a round masslike opacity overlapping the heart. Calcified plaque thoracic aorta. S-shaped curvature of the thoracic spine. Multilevel thoracic spondylosis no fully evaluated due to patient's body habitus. Degenerative changes in the shoulders. XR/XR chest 1V IMPRESSION: No acute airspace disease. Hiatal hernia, large volume. Electronically signed by: Esequiel Clark MD 02/18/2025 12:09 PM EDT
[2025-02-18 10:24] VITALS: BP 132/78; BP 147/66; PULSE 69; PULSE 74; RESP 20; TEMP 36.9; O2SAT 94; BMI 28.5
--- NOTE | 2025-02-18 11:34 | ECG_ITS ---
Test Reason : weakness Blood Pressure : */* mmHG Vent. Rate : 63 BPM Atrial Rate : 63 BPM P-R Int : 182 ms QRS Dur : 138 ms QT Int : 472 ms P-R-T Axes : 54 -17 16 degrees QTcB Int : 483 ms Normal sinus rhythm Right bundle branch block Abnormal ECG When compared with ECG of 21-Nov-2024 20:08, T wave inversion no longer evident in Anterior leads Referred By: Maribell Garcia Electronically Signed By: RENE LOMBARDO MD
--- NOTE | 2025-02-18 11:39 | ED_ITS ---
HPI - Weakness General Chief complaint: Weakness Stated complaint: INC WEAKNESS,?STROKE ALERT PER EMS Time Seen by Provider: 02/18/25 10:16 History of Present Illness HPI Narrative: 89-year-old [place]-speaking female with a PMH significant for?HTN, hx of CVA, severe , cirrhosis, and vascular/Alzheimer's dementia presents today with generalized malaise weakness. Nonspecific abdominal pain diffuse over the entire abdomen but worse on the right side. There is no chest pain is no diaphoresis. History of dementia. Patient is unable to give detailed history. She is from home. No fever detected. No coughing or congestion. Related Data Home Medications ?Medication ?Instructions ?Recorded ?Confirmed ascorbic acid (vitamin C) 500 mg 1 tab PO BID 11/27/21 11/21/24 tablet (Vitamin C) calcium 600 mg (as 1 tab PO BID 11/27/21 11/21/24 carbonate)-vitamin D3 5 mcg (200 unit) tablet (Calcium 600 + D(3)) ferrous sulfate 325 mg (65 mg 1 tab PO BID 11/27/21 11/21/24 iron) tablet,delayed release mirtazapine 15 mg tablet 1 tab PO BEDTIME 11/27/21 11/21/24 amlodipine 5 mg tablet 5 mg PO DAILY 01/23/23 11/21/24 aspirin 81 mg tablet,delayed 81 mg PO DAILY 01/23/23 11/21/24 release cetirizine 5 mg tablet 5 mg PO DAILY 01/23/23 11/21/24 donepezil 10 mg tablet 10 mg PO DAILY 01/23/23 11/21/24 empagliflozin 10 mg tablet 10 mg PO DAILY 01/23/23 11/21/24 (Jardiance) fluoxetine 40 mg capsule 40 mg PO BEDTIME 01/23/23 11/21/24 lisinopril 20 mg tablet 20 mg PO DAILY 01/23/23 11/21/24 memantine 10 mg tablet 10 mg PO BID 01/23/23 11/21/24 montelukast 10 mg tablet 10 mg PO BEDTIME 01/23/23 11/22/24 omeprazole 40 mg capsule,delayed 40 mg PO DAILY@0630 01/23/23 11/21/24 release docusate sodium 100 mg capsule 100 mg PO BID 05/24/23 11/21/24 atorvastatin 20 mg tablet 20 mg PO DAILY 07/27/23 11/21/24 mirabegron 50 mg tablet,extended 50 mg PO DAILY 07/10/24 11/21/24 release 24 hr (Myrbetriq) haloperidol lactate 2 mg/mL oral 1 mg PO DAILY 11/21/24 11/22/24 concentrate trazodone 50 mg tablet 50 mg PO BEDTIME 11/21/24 11/21/24 Previous Rx's ?Medication ?Instructions ?Recorded polyethylene glycol 3350 17 gram 17 g PO DAILY #30 ea 11/23/24 oral powder packet Allergies Allergy/AdvReac Type Severity Reaction Status Date / Time ceftazidime [Ceftazidime] Allergy Mild UNKNOWN Verified 02/18/25 10:30 benzocaine [Benzocaine] Allergy Unknown UNKNOWN Verified 02/18/25 10:30 butamben [From Cetacaine] Allergy Unknown UNKNOWN Verified 02/18/25 10:30 metoclopramide [From Reglan] Allergy Unknown UNKNOWN Verified 02/18/25 10:30 morphine [Morphine] Allergy Unknown SWELLING Verified 02/18/25 10:30 tetracaine [From Cetacaine] Allergy Unknown UNKNOWN Verified 02/18/25 10:30 Review of Systems 2 Review of Systems: Unable to answer detailed review of systems PMFSH Past Medical History Source: unable to obtain Medical History Sepsis Cirrhosis of liver DONAVAN (obstructive sleep apnea) Diabetes Allergic dermatitis Hives CVA (cerebral vascular accident) Non-alcoholic micronodular cirrhosis of liver CKD (chronic kidney disease) Dementia Hypertension Surgical History Hx of cholecystectomy No pertinent past surgical history Family History Family History Father No problems noted. Mother No problems noted. Social History Social History Housing: Apartment Do you presently have visiting nurse or other home services: No Alcohol intake: current Alcohol intake frequency: does not drink Patient Tobacco Use Status: Former Tobacco user Second Hand Smoke Exposure: No Advance Directives: Yes Advance Directives on File: Yes Advance Directives Date on File: 12/07/21 Do you have a plan to hurt others: No Plan service: No Physical Exam 2 Vital Signs: Vital Signs: Last Vital Signs Temp 98.6 F 02/18/25 15:15 Pulse 62 02/18/25 15:15 Resp 16 02/18/25 15:15 BP 161/73 H 02/18/25 15:15 Pulse Ox 93 02/18/25 15:15 O2 Del Method Room Air 02/18/25 15:15 BMI result Body Mass Index 28.5 Appearance: Alert. Oriented to self and place. No acute distress. Eyes: Pupils equal, round and reactive to light. ENT: Pharynx normal. Neck: Normal inspection. Neck supple. No lymph nodes noted. No crepitus CVS: Normal heart rate and rhythm. Pulses normal. Normal S1 and S2 Respiratory: No respiratory distress. Breath sounds normal. No Wheezing. No rales Abdomen: Soft mild right lower quadrant tenderness no rebound or guarding Skin: Skin warm and dry. Normal skin color. Normal skin turgor. Extremities: No lower extremity edema. Neurovascular intact to all extremities. No Lacerations. No Rash Neuro: Oriented to self and place. No motor deficit. No sensory deficit. Moving all extermities. No slurred speech Medications Administered Discontinued Medications Generic Name Dose Route Start Last Admin Trade Name Freq PRN Reason Stop Dose Admin Sodium Chloride 1,000 mls @ 999 mls/hr 02/18/25 11:45 02/18/25 15:31 Ns IV 02/18/25 12:45 Infused .Q1H1M ONEIL Infusion Medical Decision Making Medical Decision Making [facility] Narrative: Patient presented with generalized malaise weakness. Abdominal pain worse on the right side possibly. Will check patient's electrolytes and white count white count was 5.8 hemoglobin is 14.5 no signs of anemia patient's electrolytes showed some mild dehydration with BUN creatinine 20.97. IV fluids was given. LFTs are normal. Patient's urine showed a question UTI. There is 4+ bacteria but there is only 1+ leukocyte esterase. Previous culture reviewed given patient's slight change in mental status will treat presumptively with Macrobid. Nonspecific abdominal pain. CT scan of the abdomen was ordered. Patient's chest x-ray by my interpretation showed no acute infiltrate I reviewed radiology's reading. Patient's CT scan of the abdomen is still pending. There is a question UTI. Has a history of having bacteria in the urine. I reviewed patient's previous culture sensitive to Macrobid. If the CT scan is negative considered starting patient on Macrobid. Currently in stable condition. Differential Diagnosis Differential Diagnoses: The differential diagnosis associated with the presentation includes UTI, obstruction, diverticulitis, appendicitis Admission/Observation Consideration of admission/observation: Escalation of care including admission/observation considered Lab Data MDM Lab Attestation statement: I reviewed the patient's lab results. 02/18/25 11:47 02/18/25 14:20 Labs: Lab Results 02/18/25 02/18/25 02/18/25 Range/Units 11:47 14:20 15:27 WBC 5.8 (4.8-10.8) X10*3/uL RBC 4.86 (4.20-5.50) X10*6/uL Hgb 14.5 (12.0-16.0) g/dl Hct 44.0 (37.0-47.0) % MCV 90.5 (80.0-98.0) fL MCH 29.8 (27.0-33.0) pg MCHC 33.0 (31.0-35.0) g/dl RDW 14.6 (11.0-16.0) % Plt Count 135 L (160-400) X10*3/uL MPV 10.9 (9.4-12.3) fL Immature Gran % (Auto) 0.2 (0.0-0.4) % Neut % (Auto) 71.8 (45-73) % Lymph % (Auto) 15.6 L (20-40) % [place] % (Auto) 7.6 (2-11) % Eos % (Auto) 4.3 H (0-4) % Baso % (Auto) 0.5 (0-2) % Lymph # (Auto) 0.9 L (1.2-4.9) X10*3/uL [place] # (Auto) 0.4 (0.1-1.2) X10*3/uL Eos # (Auto) 0.3 (0.0-0.4) X10*3/uL Baso # (Auto) 0.0 (0.0-0.2) X10*3/uL Abs Immat Gran (auto) 0.01 (0.00-0.03) X10*3/uL Absolute Neuts (auto) 4.1 (2.0-8.3) x10*3/uL Absolute Nucleated RBC 0.000 (0.0-0.012) X10*3/uL Nucleated RBC % (auto) 0.0 (0.0-0.2) /100WBC Sodium 143 (135-145) mmol/L Potassium 4.2 (3.3-5.1) mmol/L Chloride 113 H (96-108) mmol/L Carbon Dioxide 28 (22-29) mmol/L Anion Gap 6 L (12-20) BUN 20 H (9-16) mg/dL Creatinine 0.97 (0.5-1.4) mg/dL Estim Creat Clear Calc 42.8 Estimated GFR 54 Random Glucose 90 (60-115) mg/dL Calcium 9.9 (8.4-10.2) mg/dL Total Bilirubin 0.3 (0.0-1.0) mg/dL Direct Bilirubin 0.1 (0.0-0.5) mg/dL AST 24 (5-31) U/L ALT 18 (0-31) U/L Alkaline Phosphatase 77 (39-117) U/L Total Protein 6.7 (6.5-8.0) g/dL Albumin 3.4 L (3.5-5.0) g/dL Lipase 31 (8-78) U/L Urine Color Yellow Urine Appearance Clear Urine pH 6.5 (5.0-9.0) Ur Specific [place] 1.020 (1.005-1.025) Urine Protein Negative (Neg-Trace) mg/dL Urine Glucose (UA) >=1000 H (Negative) mg/dL Urine Ketones Negative (Negative) mg/dL Urine Blood Negative (Negative) Urine Nitrite Negative (Negative) Ur Leukocyte Esterase Small (1+) H (Negative) Urine RBC 0-2 (0-2) /HPF Urine WBC 6-10 H (0-5) /HPF Ur Squamous Epith Cells 0-2 (0-2) /HPF Urine Bacteria 4+ (None Seen) Hyaline Casts 0-2 (0-2) /LPF Influenza Type A (PCR) NEGATIVE (Negative) Influenza Type B (PCR) NEGATIVE (Negative) RSV RNA Qual (PCR) NEGATIVE (Negative) SARS-CoV-2 RNA (RT-PCR) NEGATIVE (Negative) Independent Interpretation I performed an independent interpretation of an: EKG (Sinus heart rate of 70 [place] QRS QTC normal there is no change when compared to previous EKG there is T-wave inversion in V1) Radiology Impression Discussion of test interpretation with radiology: I have reviewed the radiologist's reading. (Chest x-ray was grossly negative) External Record Review External record reviewed: Inpatient record Chronic Conditions History of dementia, hypertension, diabetes, liver cirrhosis Social Determinants Patient?s care significantly limited by Social Determinants of Health including: Problems related to primary support group Discharge Plan Discharge Clinical Impression: Abdominal pain Prescriptions: No Action calcium carbonate-vitamin D3 [Calcium 600 + D(3)] 600 mg-5 mcg (200 unit) tablet 1 tab PO BID ascorbic acid (vitamin C) [Vitamin C] 500 mg tablet 1 tab PO BID mirtazapine 15 mg tablet 1 tab PO BEDTIME ferrous sulfate 325 mg (65 mg iron) tablet,delayed release (DR/EC) 1 tab PO BID fluoxetine 40 mg capsule 40 mg PO BEDTIME donepezil 10 mg tablet 10 mg PO DAILY memantine 10 mg tablet 10 mg PO BID montelukast 10 mg tablet 10 mg PO BEDTIME lisinopril 20 mg tablet 20 mg PO DAILY amlodipine 5 mg tablet 5 mg PO DAILY aspirin 81 mg tablet,delayed release (DR/EC) 81 mg PO DAILY cetirizine 5 mg tablet 5 mg PO DAILY omeprazole 40 mg capsule,delayed release(DR/EC) 40 mg PO DAILY@0630 mirabegron [Myrbetriq] 50 mg tablet extended release 24 hr 50 mg PO DAILY trazodone 50 mg tablet 50 mg PO BEDTIME haloperidol lactate 2 mg/mL concentrate 1 mg PO DAILY polyethylene glycol 3350 17 gram Powder In Packet 17 g PO DAILY Qty: 30 0RF docusate sodium 100 mg capsule 100 mg PO BID Jardiance 10 mg tablet 10 mg PO DAILY atorvastatin 20 mg tablet 20 mg PO DAILY Print Language: Kazakh
[2025-02-18] MEDS: 0.9 % Sodium Chloride 1,000 ML 999 ML IV (11:50)
[2025-02-18 11:57] LABS: MANUAL DIFF FLAG NO
[2025-02-18 12:02] LABS: Basophils Percent Auto 0.5 % (0-2); Eosinophils Absolute Auto 0.3 X10*3/uL (0.0-0.4); Eosinophils Percent Auto 4.3 % (0-4); Hemoglobin 14.5 g/dl (12.0-16.0); Imm Gran Abs Auto 0.01 X10*3/uL (0.00-0.03); Imm Gran Pct Auto 0.2 % (0.0-0.4); Lymphocytes Absolute Auto 0.9 X10*3/uL (1.2-4.9); Lymphocytes Percent Auto 15.6 % (20-40); Mean Corpuscular Hemoglobin 29.8 pg (27.0-33.0); Mean Corpuscular Volume 90.5 fL (80.0-98.0); Mean Platelet Volume 10.9 fL (9.4-12.3); Monocytes Absolute Auto 0.4 X10*3/uL (0.1-1.2); Monocytes Percent Auto 7.6 % (2-11); Neutrophils Absolute Auto 4.1 x10*3/uL (2.0-8.3); Neutrophils Percent Auto 71.8 % (45-73); Platelet Count 135 X10*3/uL (160-400); Red Blood Count 4.86 X10*6/uL (4.20-5.50); Red Cell Distribution Width 14.6 % (11.0-16.0); White Blood Count 5.8 X10*3/uL (4.8-10.8)
[2025-02-18 13:56] VITALS: BP 150/70; PULSE 63; RESP 16; TEMP 36.8; O2SAT 94
[2025-02-18 14:47] LABS: Alanine Aminotransferase 18 U/L (0-31); Albumin Level 3.4 g/dL (3.5-5.0); Alkaline Phosphatase 77 U/L (39-117); Anion Gap 6 (12-20); Aspartate Amino Transferase 24 U/L (5-31); Bilirubin Direct 0.1 mg/dL (0.0-0.5); Bilirubin Total 0.3 mg/dL (0.0-1.0); Blood Urea Nitrogen 20 mg/dL (9-16); Calcium 9.9 mg/dL (8.4-10.2); Carbon Dioxide 28 mmol/L (22-29); Chloride 113 mmol/L (96-108); Creatinine Clr Calc Pharmacy 42.8; Estimated Glomerular Filt Rate 54; Glucose Random 90 mg/dL (60-115); Lipase 31 U/L (8-78); Potassium 4.2 mmol/L (3.3-5.1); Sodium 143 mmol/L (135-145); Total Protein 6.7 g/dL (6.5-8.0)
[2025-02-18 15:12] LABS: Influenza A PCR NEGATIVE (Negative); Influenza B PCR NEGATIVE (Negative); Resp Syncy Virus RNA Qual PCR NEGATIVE (Negative); SARS COV2 PCR INHOUSE NEGATIVE (Negative)
[2025-02-18 15:15] VITALS: BP 161/73; PULSE 62; RESP 16; TEMP 37; O2SAT 93
[2025-02-18 15:37] LABS: Appearance Urine Clear; Color Urine Yellow; Glucose Urine UA >=1000 mg/dL (Negative); Leukocyte Esterase Urine Small (1+) (Negative); Nitrite Urine Negative (Negative); PH 6.5 (5.0-9.0); UMIC TRIGGER UACC YES; Urine Blood Negative (Negative); Urine Ketones Negative (Negative); Urine Protein Negative (Neg-Trace)
[2025-02-18 15:42] LABS: Bacteria Urine 4+ (None Seen); Hyaline Casts Urine 0-2 /LPF (0-2); RBC Urine 0-2 /HPF (0-2); Squamous Epithelial Cell Urine 0-2 /HPF (0-2); UACC Culture Trigger YES
--- NOTE | 2025-02-18 15:48 | PC.NURSE ---
Purewick placed for urine incontinence
[2025-02-18] MEDS: iohexoL 350 MG/ML 100 ML INFUS..BTL 85 ML IV (16:15)
--- NOTE | 2025-02-18 17:41 | PC.NURSE ---
This RN spoke to pts HCP, reported that pt is too weak at home, cannot get up and hasn't been eating. HCP thinks it would be best if pt stayed in hospital for further care. Per HCP, pt takes meds whole and eats regular diet.
[2025-02-18 17:54] VITALS: BP 177/59; PULSE 62; RESP 18; O2SAT 94
[2025-02-18] MEDS: Piperacillin Sodium/Tazobactam 3.375 GM in 0.9 % Sodium Chloride 50 ML IV (17:54)
[2025-02-18 18:11] LABS: Lactic Acid 0.9 mmol/L (0.5-2.0)
--- NOTE | 2025-02-18 19:03 | PC.NURSE ---
assumed care of patient at 1900. report received from Prisca LOREDO
[2025-02-18 19:05] VITALS: BP 169/65; PULSE 63; RESP 18; O2SAT 93
--- NOTE | 2025-02-18 19:40 | PC.NURSE ---
Pt given sandwich to eat by MD Mcgregor,. wants to po trial patient to see if she can tolerate po without nausea or vomiting.
--- NOTE | 2025-02-18 19:52 | PM.IMHP ---
History of Present Illness Date of Service: 02/18/25 Attending physician on admission: Contreras Mcgregor Chief Complaint: abd pain, weakness 89-year-old Nigerian-speaking female with a PMH significant for?HTN, hx of CVA, severe , cirrhosis, and vascular/Alzheimer's dementia who lives at home with her daughter/healthcare proxy presented to the ED earlier today accompanied by family due to reports of right lower quadrant abdominal pain radiating across the lower abdomen with associated generalized weakness and decreased appetite. Patient is seen at bedside with the assistance of aerial photograph interpreter. The patient is oriented to self and place but disoriented to time. She is able to localize pain to the right lower quadrant. Denies any nausea, vomiting, diarrhea. Per her daughter, patient has been incontinent of loose stool as well. No fevers, chills. No bad foods consumed, no one at home with similar symptoms. No recent travel. Last abx use 09/2024. In the ED, patient hypertensive, vital signs otherwise normal. There is no leukocytosis. Renal function electrolyte levels baseline, electrolyte levels normal except for chloride 113. Urinalysis significant for 1+ leukocytes, urinary sediment, 4+ bacteria and elevated glucose. Negative for COVID, flu, RSV. CXR negative for any acute cardiopulmonary abnormality but does show large hiatal hernia. CT abdomen/pelvis shows colonic diverticulosis with bowel wall thickening of the sigmoid colon concerning for acute diverticulitis but no evidence of bowel perforation or abscess. In the ED, given IV NS, zosyn. Review of Systems Review of Systems: Yes Unobtainable due to mental status [facility] Medical History Sepsis Cirrhosis of liver DONAVAN (obstructive sleep apnea) Diabetes Allergic dermatitis Hives CVA (cerebral vascular accident) Non-alcoholic micronodular cirrhosis of liver CKD (chronic kidney disease) Dementia Hypertension Family History Father No problems noted. Mother No problems noted. Surgical History Hx of cholecystectomy No pertinent past surgical history Social History Housing: Apartment Do you presently have visiting nurse or other home services: No Alcohol intake: current Alcohol intake frequency: does not drink Patient Tobacco Use Status: Former Tobacco user Second Hand Smoke Exposure: No Advance Directives: Yes Advance Directives on File: Yes Advance Directives Date on File: 12/07/21 Do you have a plan to hurt others: No Plan service: No Meds Allergies Allergy/AdvReac Type Severity Reaction Status Date / Time ceftazidime [Ceftazidime] Allergy Mild UNKNOWN Verified 02/18/25 10:30 benzocaine [Benzocaine] Allergy Unknown UNKNOWN Verified 02/18/25 10:30 butamben [From Cetacaine] Allergy Unknown UNKNOWN Verified 02/18/25 10:30 metoclopramide [From Reglan] Allergy Unknown UNKNOWN Verified 02/18/25 10:30 morphine [Morphine] Allergy Unknown SWELLING Verified 02/18/25 10:30 tetracaine [From Cetacaine] Allergy Unknown UNKNOWN Verified 02/18/25 10:30 Active Medications: Current Medications Acetaminophen (Acetaminophen 325 Mg Tablet) 650 mg PO Q6H PRN PRN Reason: Pain, Mild 1-3,fever,headache Calcium Carbonate (Calcium Carbonate 750 Mg Tab.Chew) 750 mg PO Q4H PRN PRN Reason: Heartburn Ceftriaxone Sodium (Ceftriaxone Sodium 1 Gm Vial) 1 gm IVPUSH Q24H ONEIL Enoxaparin Sodium (Enoxaparin Sodium 40 Mg/0.4 Ml Syringe) 40 mg SUBCUT Q24H ONEIL Metronidazole (Flagyl) 500 mg in 100 mls @ 100 mls/hr IV Q8H ONEIL Magnesium Hydroxide (Milk Of Magnesia 30 Ml Oral.Susp) 30 ml PO DAILY PRN PRN Reason: Constipation Melatonin (Melatonin 3 Mg Tablet) 6 mg PO BEDTIME PRN PRN Reason: Insomnia Sodium Chloride (0.9 % Sodium Chloride Flush 3 Ml Syringe) 3 ml IVFLUSH QSHIFT ONEIL Home Medications ?Medication ?Instructions ?Recorded ?Confirmed ?Last Taken ?Type ascorbic acid (vitamin C) 500 mg 1 tab PO BID 11/27/21 02/18/25 Unknown History tablet (Vitamin C) calcium 600 mg (as 1 tab PO BID 11/27/21 02/18/25 Unknown History carbonate)-vitamin D3 5 mcg (200 unit) tablet (Calcium 600 + D(3)) ferrous sulfate 325 mg (65 mg 1 tab PO Q OTHER DAY 11/27/21 02/18/25 02/17/25 History iron) tablet,delayed release mirtazapine 15 mg tablet 1 tab PO BEDTIME 11/27/21 02/18/25 Unknown History amlodipine 5 mg tablet 5 mg PO DAILY 01/23/23 02/18/25 Unknown History aspirin 81 mg tablet,delayed 81 mg PO DAILY 01/23/23 02/18/25 Unknown History release cetirizine 5 mg tablet 5 mg PO DAILY 01/23/23 02/18/25 Unknown History donepezil 10 mg tablet 10 mg PO DAILY 01/23/23 02/18/25 Unknown History empagliflozin 10 mg tablet 10 mg PO DAILY 01/23/23 02/18/25 Unknown History (Jardiance) fluoxetine 40 mg capsule 40 mg PO BEDTIME 01/23/23 02/18/25 Unknown History lisinopril 20 mg tablet 20 mg PO DAILY 01/23/23 02/18/25 Unknown History memantine 10 mg tablet 10 mg PO BID 01/23/23 02/18/25 Unknown History montelukast 10 mg tablet 10 mg PO BEDTIME 01/23/23 02/18/25 Unknown History omeprazole 40 mg capsule,delayed 40 mg PO DAILY@0630 01/23/23 02/18/25 Unknown History release docusate sodium 100 mg capsule 100 mg PO BID 05/24/23 02/18/25 Unknown History atorvastatin 20 mg tablet 20 mg PO DAILY 07/27/23 02/18/25 Unknown History mirabegron 50 mg tablet,extended 50 mg PO DAILY 07/10/24 02/18/25 Unknown History release 24 hr (Myrbetriq) haloperidol lactate 2 mg/mL oral 1 mg PO BEDTIME 11/21/24 02/18/25 02/17/25 History concentrate trazodone 50 mg tablet 50 mg PO BEDTIME 11/21/24 02/18/25 Unknown History erythromycin 5 mg/gram (0.5 %) eye 1 appl ophthalmic (eye) BEDTIME 02/18/25 02/18/25 Unknown History ointment ketotifen fumarate 0.025 % (0.035 1 drp ophthalmic (eye) DAILY 02/18/25 02/18/25 Unknown History %) eye drops polyethylene glycol 3350 17 gram 17 g PO DAILY PRN Constipation 02/18/25 02/18/25 Unknown History oral powder packet Physical Exam Vital Signs and Narrative: Vital Signs: Last Vital Signs Temp 98.6 F 02/18/25 15:15 Pulse 63 02/18/25 19:05 Resp 18 02/18/25 19:05 BP 169/65 H 02/18/25 19:05 Pulse Ox 93 02/18/25 19:05 O2 Del Method Room Air 02/18/25 19:05 BMI result Body Mass Index 28.5 Constitutional - Awake and Alert, No apparent distress Eyes - PERRLA, EOMI Cardiovascular - S1S2, RRR, No edema Respiratory - Normal lung expansion, Normal respiratory effort, No respiratory distress, CTA bilaterally Gastrointestinal - bilateral lower abd pain, greatest in RLQ with guarding but no rigidity. ND; +BS; No rebound Extremities - no calf tenderness bilaterally, no swelling Skin - Warm/Dry Neurological - Alert & oriented x3 Psychological - Appropriate affect Results Labs 02/18/25 11:47 02/18/25 14:20 Labs: Laboratory Results - last 24 hr 02/18/25 02/18/25 02/18/25 11:47 14:20 15:27 MCV 90.5 MCH 29.8 MCHC 33.0 RDW 14.6 Plt Count 135 L MPV 10.9 Immature Gran % (Auto) 0.2 Neut % (Auto) 71.8 Lymph % (Auto) 15.6 L [place] % (Auto) 7.6 Eos % (Auto) 4.3 H Baso % (Auto) 0.5 Lymph # (Auto) 0.9 L [place] # (Auto) 0.4 Eos # (Auto) 0.3 Baso # (Auto) 0.0 Abs Immat Gran (auto) 0.01 Absolute Neuts (auto) 4.1 Absolute Nucleated RBC 0.000 Nucleated RBC % (auto) 0.0 Anion Gap 6 L Estim Creat Clear Calc 42.8 Estimated GFR 54 Random Glucose 90 Lactic Acid Calcium 9.9 Total Bilirubin 0.3 Direct Bilirubin 0.1 AST 24 ALT 18 Alkaline Phosphatase 77 Total Protein 6.7 Albumin 3.4 L Lipase 31 Urine Color Yellow Urine Appearance Clear Urine pH 6.5 Ur Specific [place] 1.020 Urine Protein Negative Urine Glucose (UA) >=1000 H Urine Ketones Negative Urine Blood Negative Urine Nitrite Negative Ur Leukocyte Esterase Small (1+) H Urine RBC 0-2 Urine WBC 6-10 H Ur Squamous Epith Cells 0-2 Urine Bacteria 4+ Hyaline Casts 0-2 Influenza Type A (PCR) NEGATIVE Influenza Type B (PCR) NEGATIVE RSV RNA Qual (PCR) NEGATIVE SARS-CoV-2 RNA (RT-PCR) NEGATIVE 02/18/25 17:51 MCV MCH MCHC RDW Plt Count MPV Immature Gran % (Auto) Neut % (Auto) Lymph % (Auto) [place] % (Auto) Eos % (Auto) Baso % (Auto) Lymph # (Auto) [place] # (Auto) Eos # (Auto) Baso # (Auto) Abs Immat Gran (auto) Absolute Neuts (auto) Absolute Nucleated RBC Nucleated RBC % (auto) Anion Gap Estim Creat Clear Calc Estimated GFR Random Glucose Lactic Acid 0.9 Calcium Total Bilirubin Direct Bilirubin AST ALT Alkaline Phosphatase Total Protein Albumin Lipase Urine Color Urine Appearance Urine pH Ur Specific [place] Urine Protein Urine Glucose (UA) Urine Ketones Urine Blood Urine Nitrite Ur Leukocyte Esterase Urine RBC Urine WBC Ur Squamous Epith Cells Urine Bacteria Hyaline Casts Influenza Type A (PCR) Influenza Type B (PCR) RSV RNA Qual (PCR) SARS-CoV-2 RNA (RT-PCR) Imaging Radiologist's Impressions: Impressions Chest X-Ray 02/18/25 11:34 IMPRESSION: No acute airspace disease. Hiatal hernia, large volume. Electronically signed by: Esequiel Clark MD 02/18/2025 12:09 PM EDT RP Assessment and Plan (1) Acute diverticulitis: Status: Acute (2) Generalized weakness: Status: Acute Plan 89-year-old Nigerian-speaking female with a PMH significant for?HTN, hx of CVA, severe , cirrhosis, and vascular/Alzheimer's dementia who lives at home with her daughter/healthcare proxy to be observed for acute uncomplicated diverticulitis generalized weakness and decreased p.o. intake Acute uncomplicated diverticulitis CT abdomen pelvis shows colonic thickening of the sigmoid colon without any abscess or perforation No leukocytosis or fevers IV ceftriaxone and Flagyl (initiated 02/18) Clear liquid diet, advance as tolerated Check gi panel and cdiff pcr Weakness r/t above PT eval Asymptomatic bacteriuria UA with 1+ leukocytes, negative nitrites, urinary sediment, 4+ bacteria Ceftriaxone as above Follow cultures Unspecified dementia with behavioral disturbance Baseline mentation Continue home medications Hypertension Continue lisinopril, amlodipine History of CVA/HLD Continue ASA, statin Hepatic cirrhosis Compensated CKD stage 3 Renal function baseline DVT prophylaxis-Lovenox DNR/DNI HCP daughter, Elena [phone] Quality Stroke Does the patient have a stroke diagnosis?: No VTE Prior VTE?: No VTE Risk Level:: Medical - moderate - high VTE Device Contraindication: Treatment Not Indicated VTE Drug Contraindication: N/A - Med Ordered
--- NOTE | 2025-02-18 20:09 | PHA.MEDREC ---
Addendum entered by Carmen Vick [facility] 02/18/25 20:21: [facility] REVIEWED Original Note: Pharmacy Consult ? Medication Reconciliation Pharmacy has completed the medication reconciliation. Used claim history to confirm medications. Elena (granddaughter) confirmed she takes amlodipine and montelukast, ferrous sulfate is every other day last taken yesterday, haloperidol (0.5 mL) was taken at bedtime yesterday, ketotifen eye drops are both eyes in the morning and erythromycin ointment is in both eyes at bedtime. Elena said miralax was prn.
[2025-02-18] MEDS: metroNIDAZOLE/NS 500 MG/100 ML PIGGYBACK 100 MG IV (20:36)
[2025-02-18] MEDS: Enoxaparin Sodium 40 MG/0.4 ML SYRINGE SUBCUT (20:36)
[2025-02-18 20:38] VITALS: BP 163/66; PULSE 70; RESP 16; TEMP 36.4; O2SAT 94
--- NOTE | 2025-02-18 21:42 | PC.NURSE ---
pt PASS po trial without n/v however per family patient is too weak to go home and has had very poor appetite. will admit for obs per MD Mcgregor
[2025-02-18] MEDS: cefTRIAXone sodium 1 GM VIAL IVPUSH (22:17)
[2025-02-18] MEDS: Mirtazapine 15 MG TABLET PO (23:42)
[2025-02-18] MEDS: FLUoxetine HCl 20 MG CAPSULE 40 MG PO (23:42)
[2025-02-19] VITALS (10 sets, daily range): BP systolic 117–152; BP diastolic 61–70; PULSE 61–86; RESP 14–20; TEMP 36.3–37; O2SAT 92–94
[2025-02-19] MEDS: metroNIDAZOLE/NS 500 MG/100 ML PIGGYBACK 100 MG IV ×2 (05:04→12:01)
[2025-02-19] MEDS: Memantine HCl 10 MG TABLET PO ×2 (08:11→21:46)
[2025-02-19] MEDS: Omeprazole 40 MG CAPSULE.DR PO (08:11)
[2025-02-19] MEDS: Loratadine 10 MG TABLET PO (08:12)
[2025-02-19] MEDS: Aspirin Enteric Coated 81 MG TABLET.DR PO (08:12)
[2025-02-19] MEDS: Atorvastatin Calcium 20 MG TABLET PO (08:12)
[2025-02-19] MEDS: amLODIPine Besylate 5 MG TABLET PO (08:12)
[2025-02-19] MEDS: lisinopriL 20 MG TABLET PO (08:15)
[2025-02-19] MEDS: Docusate Sodium 100 MG CAPSULE PO ×2 (08:15→21:46)
[2025-02-19] MEDS: Donepezil HCl 10 MG TABLET PO (08:18)
--- NOTE | 2025-02-19 09:10 | MHC.CM.PN ---
Patient has Alzheimer's Dementia; CM spoke with Granddaughter/HCP/POA/Elena @ [phone] and addressed MATSON with her (Elena stated that she used to work here at [facility] [facility] [employer] and is aware of what OBSERVATION status means; she requested that MATSON NOT be mailed to her). Patient may benefit from a PT Eval to assist with disposition (home/resume 50 [employer] hours/week and a weekly Nurse visit VS STR); CM has initiated and will follow for dc planning. PCP is Dr. Myah Singh and Granddaughter will transport at dc if Patient is dc'd to home.
[2025-02-19] MEDS: Ketotifen Fumarate 0.025% Oph 5 ML DRPBTL 1 DROP EYE-BOTH (09:36)
[2025-02-19] MEDS: Mirabegron 50 MG TAB.ER.24H PO (09:36)
[2025-02-19] MEDS: Ascorbic Acid 500 MG TABLET PO ×2 (09:36→21:46)
[2025-02-19] MEDS: Calcium + Vitamin D 250 MG TABLET 500 MG PO ×2 (09:36→21:46)
[2025-02-19] MEDS: Ferrous Sulfate 324 MG TABLET.DR PO (09:36)
[2025-02-19] MEDS: 0.9 % Sodium Chloride Flush 3 ML SYRINGE IVFLUSH ×2 (09:36→16:23)
--- NOTE | 2025-02-19 10:20 | PC.NURSE ---
Pt OOB with PT and ambulating with walker to BR; pt had very large BM; pt ambulated steadily with walker; pt denies abdominal pain with palpation; admitting provider wants to let pt eat solid food at lunchtime and DC pt home if no complications
--- NOTE | 2025-02-19 13:30 | MHC.EDTECH ---
Pt refused lunch tray at this time. Pt agreed to keeping the tray at bedside incase she changes her mind. RN made aware.
--- NOTE | 2025-02-19 14:30 | MHC.CM.PN ---
Addendum entered by Thais Bradley 02/19/25 14:44: [facility] has accepted Patient and will initiate auth with [facility] today;CM spoke with Granddaughter/HCP/Elena @ listed # and she is in agreement with this plan.CM will follow. Original Note: PT is recommending STR; CM spoke with Granddaughter/HCP/Elena at listed # and she is in agreement with that plan. [facility] is first choice and [facility] is second choice; CM awaits response from them regarding a potential be offer (pending [employer] auth). CM will follow.
--- NOTE | 2025-02-19 14:35 | HO.PM.IMPN ---
Subjective Subjective Date of Service: 02/19/25 <JOJO Madrigal - Last Filed: 02/19/25 14:44> 02/20/25 <Ricardo Pena MD - Last Filed: 02/20/25 08:28> Interval History: Seen and examined this morning Interval history: Patient is seen with program developer at bedside. She is reporting improvement in lower abdominal pain but states it is still present. She had a large formed bowel movement yesterday. No ongoing diarrhea. No nausea or vomiting. Tolerating liquid diet. Has been afebrile, vitals stable. Patient unable to provide history/review of systems unless asked direct questions <JOJO Madrigal - Last Filed: 02/19/25 14:44> Physical Exam Vital Signs: Vital Signs: Last Vital Signs Temp 98.5 F 02/19/25 12:25 Pulse 86 02/19/25 12:25 Resp 16 02/19/25 12:25 BP 117/65 02/19/25 12:25 Pulse Ox 92 02/19/25 12:25 O2 Del Method Room Air 02/19/25 12:25 BMI result Body Mass Index 28.5 <JOJO Madrigal - Last Filed: 02/19/25 14:44> Constitutional - Awake and Alert, No apparent distress Cardiovascular - S1S2, RRR, No edema Respiratory - Normal lung expansion, Normal respiratory effort, No respiratory distress, CTA bilaterally Gastrointestinal - b/l lower quadrant abd pain without guarding or rebound. ND; +BS Extremities - no calf tenderness bilaterally, no swelling Skin - Warm/Dry Neurological - Alert, moving all extremities <JOJO Madrigal - Last Filed: 02/19/25 14:44> Objective Data Active Medications Acetaminophen (Acetaminophen 325 Mg Tablet) 650 mg PO Q6H PRN PRN Reason: Pain, Mild 1-3,fever,headache Amlodipine Besylate (Amlodipine Besylate 5 Mg Tablet) 5 mg PO DAILY [facility]; Protocol Last Admin: 02/19/25 08:12 Dose: 5 mg Documented By: DOMENICA Ascorbic Acid (Ascorbic Acid 500 Mg Tablet) 500 mg PO BID [facility] Last Admin: 02/19/25 09:36 Dose: 500 mg Documented By: DOMENICA Aspirin (Aspirin Enteric Coated 81 Mg Tablet.) 81 mg PO DAILY [facility] Last Admin: 02/19/25 08:12 Dose: 81 mg Documented By: DOMENICA Atorvastatin Calcium (Atorvastatin Calcium 20 Mg Tablet) 20 mg PO DAILY [facility] Last Admin: 02/19/25 08:12 Dose: 20 mg Documented By: DOMENICA Calcium Carbonate (Calcium Carbonate 750 Mg Tab.Chew) 750 mg PO Q4H PRN PRN Reason: Heartburn Calcium Carbonate/Cholecalciferol (Calcium + Vitamin D 250 Mg Tablet) 500 mg PO BID [facility] Last Admin: 02/19/25 09:36 Dose: 500 mg Documented By: DOMENICA Ceftriaxone Sodium (Ceftriaxone Sodium 1 Gm Vial) 1 gm IVPUSH Q24H [facility] Last Admin: 02/18/25 22:17 Dose: 1 gm Documented By: PARTHA Docusate Sodium (Docusate Sodium 100 Mg Capsule) 100 mg PO BID [facility] Last Admin: 02/19/25 08:15 Dose: 100 mg Documented By: DOMENICA Donepezil HCl (Donepezil Hcl 10 Mg Tablet) 10 mg PO DAILY [facility] Last Admin: 02/19/25 08:18 Dose: 10 mg Documented By: DOMENICA Enoxaparin Sodium (Enoxaparin Sodium 40 Mg/0.4 Ml Syringe) 40 mg SUBCUT Q24H [facility] Last Admin: 02/18/25 20:36 Dose: 40 mg Documented By: PARTHA Erythromycin (Erythromycin Base 0.5% Oph Oin 1 Gm Tube) 1 cm EYE-BOTH BEDTIME [facility] Ferrous Sulfate (Ferrous Sulfate 324 Mg Tablet.Dr) 1 mg PO Q2D [facility] Last Admin: 02/19/25 09:36 Dose: 1 mg Documented By: DOMENICA Fluoxetine HCl (Fluoxetine Hcl 20 Mg Capsule) 40 mg PO BEDTIME [facility] Last Admin: 02/18/25 23:42 Dose: 40 mg Documented By: PARTHA Haloperidol Lactate (Haloperidol Lactate Oral Conc 10 Mg/5 Ml Oral.Conc) 1 mg PO BEDTIME [facility] Last Admin: 02/18/25 23:42 Dose: Not Given Documented By: PARTHA Non-Admin Reason: Med Not Available Metronidazole (Flagyl) 500 mg in 100 mls @ 100 mls/hr IV Q8H [facility] Last Admin: 02/19/25 12:01 Dose: 100 mls/hr Documented By: MARI Ketotifen Fumarate (Ketotifen Fumarate 0.025% Oph 5 Ml Drpbtl) 1 drop EYE-BOTH DAILY [facility] Last Admin: 02/19/25 09:36 Dose: 1 drop Documented By: DOMENICA Lisinopril (Lisinopril 20 Mg Tablet) 20 mg PO DAILY [facility]; Protocol Last Admin: 02/19/25 08:15 Dose: 20 mg Documented By: DOMENICA Loratadine (Loratadine 10 Mg Tablet) 10 mg PO DAILY [facility] Last Admin: 02/19/25 08:12 Dose: 10 mg Documented By: DOMENICA Magnesium Hydroxide (Milk Of Magnesia 30 Ml Oral.Susp) 30 ml PO DAILY PRN PRN Reason: Constipation Melatonin (Melatonin 3 Mg Tablet) 6 mg PO BEDTIME PRN PRN Reason: Insomnia Memantine (Memantine Hcl 10 Mg Tablet) 10 mg PO BID [facility] Last Admin: 02/19/25 08:11 Dose: 10 mg Documented By: DOMENICA Mirabegron (Mirabegron 50 Mg Tab.Er.24h) 50 mg PO DAILY [facility] Last Admin: 02/19/25 09:36 Dose: 50 mg Documented By: DOMENICA Mirtazapine (Mirtazapine 15 Mg Tablet) 15 mg PO BEDTIME [facility] Last Admin: 02/18/25 23:42 Dose: 15 mg Documented By: PARTHA Montelukast Sodium (Montelukast Sodium 10 Mg Tablet) 10 mg PO BEDTIME [facility] Omeprazole (Omeprazole 40 Mg Capsule.Dr) 40 mg PO DAILY@0630 [facility] Last Admin: 02/19/25 08:11 Dose: 40 mg Documented By: DOMENICA Sodium Chloride (0.9 % Sodium Chloride Flush 3 Ml Syringe) 3 [facility] Last Admin: 02/19/25 09:36 Dose: 3 ml Documented By: DOMENICA Trazodone HCl (Trazodone Hcl 50 Mg Tablet) 50 mg PO BEDTIME [facility] <JOJO Madrigal - Last Filed: 02/19/25 14:44> Labs CBC & Chem 7: 02/18/25 11:47 02/18/25 14:20 <JOJO Madrigal - Last Filed: 02/19/25 14:44> Labs: Laboratory Results - last 24 hr 0302/18/25 02/18/25 14:20 15:27 17:51 Anion Gap 6 L Estim Creat Clear Calc 42.8 Estimated GFR 54 Random Glucose 90 Lactic Acid 0.9 Calcium 9.9 Total Bilirubin 0.3 Direct Bilirubin 0.1 AST 24 ALT 18 Alkaline Phosphatase 77 Total Protein 6.7 Albumin 3.4 L Lipase 31 Urine Color Yellow Urine Appearance Clear Urine pH 6.5 Ur Specific [place] 1.020 Urine Protein Negative Urine Glucose (UA) >=1000 H Urine Ketones Negative Urine Blood Negative Urine Nitrite Negative Ur Leukocyte Esterase Small (1+) H Urine RBC 0-2 Urine WBC 6-10 H Ur Squamous Epith Cells 0-2 Urine Bacteria 4+ Hyaline Casts 0-2 Influenza Type A (PCR) NEGATIVE Influenza Type B (PCR) NEGATIVE RSV RNA Qual (PCR) NEGATIVE SARS-CoV-2 RNA (RT-PCR) NEGATIVE <JOJO Madrigal - Last Filed: 02/19/25 14:44> Microbiology Microbiology Results: Microbiology 02/18/25 18:38 Urine Culture - Preliminary Urine clean catch - Clean Catch Midstream Gram negative telma <JOJO Madrigal - Last Filed: 02/19/25 14:44> Assessment and Plan (1) Acute diverticulitis: Status: Acute <JOJO Madrigal - Last Filed: 02/19/25 14:44> (2) Generalized weakness: Status: Acute <JOJO Madrigal - Last Filed: 02/19/25 14:44> Assessment and Plan: 89-year-old Greek-speaking female with a PMH significant for?HTN, hx of CVA, severe , cirrhosis, and vascular/Alzheimer's dementia who lives at home with her daughter/healthcare proxy to be observed for acute uncomplicated diverticulitis generalized weakness and decreased p.o. intake Acute uncomplicated diverticulitis CT abdomen pelvis shows colonic thickening of the sigmoid colon without any abscess or perforation No leukocytosis or fevers IV ceftriaxone and Flagyl (initiated 02/18). Change to Augmentin 875mg BID x 10d (02/19) Tolerated clears. Advance to low sodium diet (chopped per prior INVESTOR RELATIONS ANALYST eval) DC gi panel and cdiff pcr as stool now formed Weakness r/t above PT recommending STR Asymptomatic bacteriuria UA with 1+ leukocytes, negative nitrites, urinary sediment, 4+ bacteria UC with GNR Change to augmentin Unspecified dementia with behavioral disturbance Baseline mentation Continue home medications Hypertension Continue lisinopril, amlodipine History of CVA/HLD Continue ASA, statin Hepatic cirrhosis Compensated CKD stage 3 Renal function baseline DVT prophylaxis-Lovenox DNR/DNI HCP daughter, Elena [phone] PT recommending STR. Pending insurance authorization <JOJO Madrigal - Last Filed: 02/19/25 14:44> Quality Stroke Does the patient have a stroke diagnosis?: No <JOJO Madrigal - Last Filed: 02/19/25 14:44> VTE Prior VTE?: No <JOJO Madrigal - Last Filed: 02/19/25 14:44> VTE Risk Level:: Medical - moderate - high <JOJO Madrigal - Last Filed: 02/19/25 14:44> VTE Device Contraindication: Treatment Not Indicated <JOJO Madrigal - Last Filed: 02/19/25 14:44> VTE Drug Contraindication: N/A - Med Ordered <JOJO Madrigal - Last Filed: 02/19/25 14:44>
[2025-02-19] MEDS: Ondansetron ODT 4 MG TAB.RAPDIS TRANSLINGU (16:22)
[2025-02-19] MEDS: Amoxicillin/Potassium Clav 875 MG TABLET PO (18:53)
[2025-02-19] MEDS: Montelukast Sodium 10 MG TABLET PO (21:46)
[2025-02-19] MEDS: traZODone HCL 50 MG TABLET PO (21:46)
[2025-02-19] MEDS: FLUoxetine HCl 20 MG CAPSULE 40 MG PO (21:46)
[2025-02-19] MEDS: Erythromycin Base 0.5% Oph Oin 1 GM TUBE 1 CM EYE-BOTH (21:46)
[2025-02-19] MEDS: Mirtazapine 15 MG TABLET PO (21:46)
[2025-02-19] MEDS: Haloperidol Lactate Oral Conc 10 MG/5 ML ORAL.CONC PO (22:39)
[2025-02-19] MEDS: Enoxaparin Sodium 40 MG/0.4 ML SYRINGE SUBCUT (22:39)
[2025-02-20] VITALS (9 sets, daily range): BP systolic 102–130; BP diastolic 49–69; PULSE 72–97; RESP 14–18; TEMP 36.3–37.2; O2SAT 91–99
--- NOTE | 2025-02-20 01:29 | PC.NURSE ---
This Rn assumed care from FACUNDO Kumar at 23:00, this Rn took vitals, assessed pt pain level and repositioned pt for comfort.
--- NOTE | 2025-02-20 03:25 | PC.NURSE ---
pt is sleeping no sign of distress
[2025-02-20] MEDS: 0.9 % Sodium Chloride Flush 3 ML SYRINGE IVFLUSH ×4 (05:48→20:56)
[2025-02-20] MEDS: Amoxicillin/Potassium Clav 875 MG TABLET PO ×2 (05:48→18:19)
[2025-02-20] MEDS: Omeprazole 40 MG CAPSULE.DR PO (05:48)
[2025-02-20] MEDS: Memantine HCl 10 MG TABLET PO ×2 (09:04→20:54)
[2025-02-20] MEDS: Aspirin Enteric Coated 81 MG TABLET.DR PO (09:04)
[2025-02-20] MEDS: amLODIPine Besylate 5 MG TABLET PO (09:04)
[2025-02-20] MEDS: Donepezil HCl 10 MG TABLET PO (09:04)
[2025-02-20] MEDS: Loratadine 10 MG TABLET PO (09:05)
[2025-02-20] MEDS: Ascorbic Acid 500 MG TABLET PO ×2 (09:05→20:54)
[2025-02-20] MEDS: Mirabegron 50 MG TAB.ER.24H PO (09:05)
[2025-02-20] MEDS: lisinopriL 20 MG TABLET PO (09:05)
[2025-02-20] MEDS: Docusate Sodium 100 MG CAPSULE PO ×2 (09:05→20:55)
[2025-02-20] MEDS: Calcium + Vitamin D 250 MG TABLET 500 MG PO ×2 (09:05→20:54)
[2025-02-20] MEDS: Atorvastatin Calcium 20 MG TABLET PO (09:06)
[2025-02-20] MEDS: Ketotifen Fumarate 0.025% Oph 5 ML DRPBTL 1 DROP EYE-BOTH (09:09)
--- NOTE | 2025-02-20 15:12 | HO.PM.IMPN ---
Subjective Subjective Date of Service: 02/20/25 Interval History: seen and examined this morning, awake alert no overnight events Physical Exam Vital Signs: Vital Signs: Last Vital Signs Temp 98 F 02/20/25 08:00 Pulse 75 02/20/25 08:00 Resp 15 02/20/25 08:00 BP 122/68 02/20/25 09:04 Pulse Ox 91 L 02/20/25 11:40 O2 Del Method Nasal Cannula 02/20/25 11:40 O2 Flow Rate 1 02/20/25 11:40 BMI result Body Mass Index 28.5 Const: Other: Awake, alert in no acute distress Resp: Effort & Inspection: normal respiratory effort, able to speak in complete sentences, no respiratory distress and no use of accessory muscles GI: Inspection: No distended Palpation (GI): Soft to palpation Objective Data Active Medications Acetaminophen (Acetaminophen 325 Mg Tablet) 650 mg PO Q6H PRN PRN Reason: Pain, Mild 1-3,fever,headache Amlodipine Besylate (Amlodipine Besylate 5 Mg Tablet) 5 mg PO DAILY COUNT INCLUDES THE [facility]; Protocol Last Admin: 02/20/25 09:04 Dose: 5 mg Documented By: ALPA Amoxicillin/Clavulanate Potassium (Amoxicillin/Potassium Clav 875 Mg Tablet) 875 mg PO Q12H COUNT INCLUDES THE [facility] Stop: 02/24/25 06:01 Last Admin: 02/20/25 05:48 Dose: 875 mg Documented By: MARISOL Ascorbic Acid (Ascorbic Acid 500 Mg Tablet) 500 mg PO BID COUNT INCLUDES THE [facility] Last Admin: 02/20/25 09:05 Dose: 500 mg Documented By: ALPA Aspirin (Aspirin Enteric Coated 81 Mg Tablet.) 81 mg PO DAILY COUNT INCLUDES THE [facility] Last Admin: 02/20/25 09:04 Dose: 81 mg Documented By: ALPA Atorvastatin Calcium (Atorvastatin Calcium 20 Mg Tablet) 20 mg PO DAILY COUNT INCLUDES THE [facility] Last Admin: 02/20/25 09:06 Dose: 20 mg Documented By: ALPA Calcium Carbonate (Calcium Carbonate 750 Mg Tab.Chew) 750 mg PO Q4H PRN PRN Reason: Heartburn Calcium Carbonate/Cholecalciferol (Calcium + Vitamin D 250 Mg Tablet) 500 mg PO BID COUNT INCLUDES THE [facility] Last Admin: 02/20/25 09:05 Dose: 500 mg Documented By: ALPA Docusate Sodium (Docusate Sodium 100 Mg Capsule) 100 mg PO BID COUNT INCLUDES THE [facility] Last Admin: 02/20/25 09:05 Dose: 100 mg Documented By: ALPA Donepezil HCl (Donepezil Hcl 10 Mg Tablet) 10 mg PO DAILY COUNT INCLUDES THE [facility] Last Admin: 02/20/25 09:04 Dose: 10 mg Documented By: ALPA Enoxaparin Sodium (Enoxaparin Sodium 40 Mg/0.4 Ml Syringe) 40 mg SUBCUT Q24H COUNT INCLUDES THE [facility] Last Admin: 02/19/25 22:39 Dose: 40 mg Documented By: MARI Erythromycin (Erythromycin Base 0.5% Oph Oin 1 Gm Tube) 1 cm EYE-BOTH BEDTIME COUNT INCLUDES THE [facility] Last Admin: 02/19/25 21:46 Dose: 1 cm Documented By: MARI Ferrous Sulfate (Ferrous Sulfate 324 Mg Tablet.Dr) 1 mg PO Q2D COUNT INCLUDES THE [facility] Last Admin: 02/19/25 09:36 Dose: 1 mg Documented By: DOMENICA Fluoxetine HCl (Fluoxetine Hcl 20 Mg Capsule) 40 mg PO BEDTIME COUNT INCLUDES THE [facility] Last Admin: 02/19/25 21:46 Dose: 40 mg Documented By: MARI Haloperidol Lactate (Haloperidol Lactate Oral Conc 10 Mg/5 Ml Oral.Conc) 1 mg PO BEDTIME COUNT INCLUDES THE [facility] Last Admin: 02/19/25 22:39 Dose: 1 mg Documented By: MARI Ketotifen Fumarate (Ketotifen Fumarate 0.025% Oph 5 Ml Drpbtl) 1 drop EYE-BOTH DAILY COUNT INCLUDES THE [facility] Last Admin: 02/20/25 09:09 Dose: 1 drop Documented By: ALPA Lisinopril (Lisinopril 20 Mg Tablet) 20 mg PO DAILY COUNT INCLUDES THE [facility]; Protocol Last Admin: 02/20/25 09:05 Dose: 20 mg Documented By: ALPA Loratadine (Loratadine 10 Mg Tablet) 10 mg PO DAILY COUNT INCLUDES THE [facility] Last Admin: 02/20/25 09:05 Dose: 10 mg Documented By: ALPA Magnesium Hydroxide (Milk Of Magnesia 30 Ml Oral.Susp) 30 ml PO DAILY PRN PRN Reason: Constipation Melatonin (Melatonin 3 Mg Tablet) 6 mg PO BEDTIME PRN PRN Reason: Insomnia Memantine (Memantine Hcl 10 Mg Tablet) 10 mg PO BID COUNT INCLUDES THE [facility] Last Admin: 02/20/25 09:04 Dose: 10 mg Documented By: ALPA Mirabegron (Mirabegron 50 Mg Tab.Er.24h) 50 mg PO DAILY COUNT INCLUDES THE [facility] Last Admin: 02/20/25 09:05 Dose: 50 mg Documented By: ALPA Mirtazapine (Mirtazapine 15 Mg Tablet) 15 mg PO BEDTIME COUNT INCLUDES THE [facility] Last Admin: 02/19/25 21:46 Dose: 15 mg Documented By: MARI Montelukast Sodium (Montelukast Sodium 10 Mg Tablet) 10 mg PO BEDTIME COUNT INCLUDES THE [facility] Last Admin: 02/19/25 21:46 Dose: 10 mg Documented By: MARI Omeprazole (Omeprazole 40 Mg Capsule.Dr) 40 mg PO DAILY@0630 COUNT INCLUDES THE [facility] Last Admin: 02/20/25 05:48 Dose: 40 mg Documented By: MARISOL Ondansetron HCl (Ondansetron Odt 4 Mg Tab.Rapdis) 4 mg TRANSLINGU Q8H PRN PRN Reason: Nausea and Vomiting Last Admin: 02/19/25 16:22 Dose: 4 mg Documented By: MARI Sodium Chloride (0.9 % Sodium Chloride Flush 3 Ml Syringe) 3 ml IVFLUSH QSHIFT COUNT INCLUDES THE [facility] Last Admin: 02/20/25 09:06 Dose: 3 ml Documented By: ALPA Trazodone HCl (Trazodone Hcl 50 Mg Tablet) 50 mg PO BEDTIME COUNT INCLUDES THE [facility] Last Admin: 02/19/25 21:46 Dose: 50 mg Documented By: MARI Labs 02/18/25 11:47 02/18/25 14:20 Microbiology Microbiology Results: Microbiology 02/18/25 18:38 Urine Culture - Final Urine clean catch - Clean Catch Midstream Escherichia coli 02/18/25 17:51 Blood Culture - Preliminary Blood - Venous No growth after 24 hours. 02/18/25 17:51 Blood Culture - Preliminary Blood - Venous No growth after 24 hours. Assessment and Plan (1) Acute diverticulitis: Status: Acute Plan 89-year-old Iraqi-speaking female with a PMH significant for?HTN, hx of CVA, severe , cirrhosis, and vascular/Alzheimer's dementia who lives at home with her daughter/healthcare proxy to be observed for acute uncomplicated diverticulitis generalized weakness and decreased p.o. intake Acute uncomplicated diverticulitis CT abdomen pelvis shows colonic thickening of the sigmoid colon without any abscess or perforation No leukocytosis or fevers IV ceftriaxone and Flagyl (initiated 02/18). Change to Augmentin 875mg BID x 10d (02/19) Tolerated clears. Advance to low sodium diet (chopped per prior [employer] eval) DC gi panel and cdiff pcr as stool now formed Weakness r/t above PT recommending STR Asymptomatic bacteriuria UC with e.coli Changed to augmentin Unspecified dementia with behavioral disturbance Baseline mentation Continue home medications Hypertension Continue lisinopril, amlodipine History of CVA/HLD Continue ASA, statin Hepatic cirrhosis Compensated CKD stage 3 Renal function baseline DVT prophylaxis-Lovenox DNR/DNI HCP daughter, Elena [phone] PT recommending STR. Pending insurance authorization Quality Stroke Does the patient have a stroke diagnosis?: No VTE Prior VTE?: No VTE Risk Level:: Medical - moderate - high VTE Device Contraindication: Treatment Not Indicated VTE Drug Contraindication: N/A - Med Ordered
[2025-02-20] MEDS: Enoxaparin Sodium 40 MG/0.4 ML SYRINGE SUBCUT (20:53)
[2025-02-20] MEDS: FLUoxetine HCl 20 MG CAPSULE 40 MG PO (20:54)
[2025-02-20] MEDS: Mirtazapine 15 MG TABLET PO (20:55)
[2025-02-20] MEDS: Montelukast Sodium 10 MG TABLET PO (20:55)
[2025-02-20] MEDS: traZODone HCL 50 MG TABLET PO (20:55)
[2025-02-20] MEDS: Haloperidol Lactate Oral Conc 10 MG/5 ML ORAL.CONC PO (20:55)
[2025-02-20] MEDS: Erythromycin Base 0.5% Oph Oin 1 GM TUBE 1 CM EYE-BOTH (21:05)
[2025-02-21 03:30] VITALS: BP 126/58; PULSE 84; RESP 18; TEMP 36; O2SAT 93
[2025-02-21] MEDS: Omeprazole 40 MG CAPSULE.DR PO (06:09)
[2025-02-21] MEDS: Amoxicillin/Potassium Clav 875 MG TABLET PO (06:09)
[2025-02-21 07:08] VITALS: BP 144/67; PULSE 71; RESP 16; TEMP 36.3; O2SAT 95
[2025-02-21] MEDS: 0.9 % Sodium Chloride Flush 3 ML SYRINGE IVFLUSH (07:48)
[2025-02-21] MEDS: Docusate Sodium 100 MG CAPSULE PO (07:49)
[2025-02-21] MEDS: Ascorbic Acid 500 MG TABLET PO (07:49)
[2025-02-21] MEDS: Mirabegron 50 MG TAB.ER.24H PO (07:49)
[2025-02-21] MEDS: Donepezil HCl 10 MG TABLET PO (07:49)
[2025-02-21] MEDS: Aspirin Enteric Coated 81 MG TABLET.DR PO (07:49)
[2025-02-21] MEDS: Memantine HCl 10 MG TABLET PO (07:50)
[2025-02-21] MEDS: amLODIPine Besylate 5 MG TABLET PO (07:50)
[2025-02-21] MEDS: Loratadine 10 MG TABLET PO (07:50)
[2025-02-21] MEDS: Atorvastatin Calcium 20 MG TABLET PO (07:50)
[2025-02-21] MEDS: Calcium + Vitamin D 250 MG TABLET 500 MG PO (07:50)
[2025-02-21] MEDS: lisinopriL 20 MG TABLET PO (07:50)
[2025-02-21] MEDS: Ketotifen Fumarate 0.025% Oph 5 ML DRPBTL 1 DROP EYE-BOTH (08:22)
[2025-02-21] MEDS: Ferrous Sulfate 324 MG TABLET.DR PO (08:22)
[2025-02-21 09:50] VITALS: O2SAT 88
[2025-02-21 10:19] VITALS: O2SAT 95
--- NOTE | 2025-02-21 10:30 | PM.DS ---
DS: Providers Provider Date of Service: 02/21/25 Date of admission: 02/18/25 19:48 Date of discharge: 02/21/25 Primary care physician: Myah Singh MD Attending physician on discharge: Ricardo Pena Discharging clinician: Liliana Westfall DS: Diagnosis Discharge Diagnosis (1) Acute diverticulitis: Status: Acute DS: Summary Hospital Course Hospital Course: From H&P on the day of admission 89-year-old [place]-speaking female with a PMH significant for?HTN, hx of CVA, severe , cirrhosis, and vascular/Alzheimer's dementia who lives at home with her daughter/healthcare proxy presented to the ED earlier today accompanied by family due to reports of right lower quadrant abdominal pain radiating across the lower abdomen with associated generalized weakness and decreased appetite. Patient is seen at bedside with the assistance of vending machine filler. The patient is oriented to self and place but disoriented to time. She is able to localize pain to the right lower quadrant. Denies any nausea, vomiting, diarrhea. Per her daughter, patient has been incontinent of loose stool as well. No fevers, chills. No bad foods consumed, no one at home with similar symptoms. No recent travel. Last abx use 09/2024. In the ED, patient hypertensive, vital signs otherwise normal. There is no leukocytosis. Renal function electrolyte levels baseline, electrolyte levels normal except for chloride 113. Urinalysis significant for 1+ leukocytes, urinary sediment, 4+ bacteria and elevated glucose. Negative for COVID, flu, RSV. CXR negative for any acute cardiopulmonary abnormality but does show large hiatal hernia. CT abdomen/pelvis shows colonic diverticulosis with bowel wall thickening of the sigmoid colon concerning for acute diverticulitis but no evidence of bowel perforation or abscess. In the ED, given IV NS, zosyn. Acute uncomplicated diverticulitis CT abdomen pelvis shows colonic thickening of the sigmoid colon without any abscess or perforation. No leukocytosis or fevers. Initially treated with IV ceftriaxone and Flagyl (initiated 02/18). Changed to Augmentin 875mg BID x 10d (02/19). Had formed stool, tolerating diet (chopped per prior [employer] eval). For generalized weakness was evaluated by Physical therapy who recommended short-term rehab. She will be transferred to short-term rehab in stable condition. Continues to require 1 L supplemental oxygen, chest x-ray negative. Wean oxygen as tolerated. UTI, patient without symptoms, urine growing e.coli, on antibiotics for diverticulitis. Time Attestation Discharge Coordination Time (in mins): 36 Quality: Safe Use of Opioids Does Pt have an Active Cancer Diagnosis on the Problem List?: No Quality: Stroke Does the patient have a stroke diagnosis?: No Physical Exam Vital Signs: Vital Signs: Last Vital Signs Temp 97.4 F 02/21/25 07:08 Pulse 71 02/21/25 07:08 Resp 16 02/21/25 07:08 BP 144/67 H 02/21/25 07:08 Pulse Ox 95 02/21/25 10:19 O2 Del Method Nasal Cannula 02/21/25 10:19 O2 Flow Rate 1 02/21/25 10:19 BMI result Body Mass Index 28.5 Const: General: alert, awake and Physically active Nutritional Appearance: overweight Orientation/consciousness: oriented to person Resp: Effort & Inspection: normal respiratory effort, able to speak in complete sentences, no respiratory distress and no use of accessory muscles Cardio: Rate: regular rate GI: Inspection: No distended Palpation (GI): Soft to palpation Neuro: Other: grossly nonfocal General: oriented to person DS: Data Data Completed and Pending Completed studies during hospitalization [Text1]: Procedures Introduction of Remdesivir Anti-infective into Peripheral Vein, Percutaneous Approach, [employer] 5 (12/01/21) Labs on day of discharge: Preliminary micro results at discharge 02/18/25 17:51 Blood Culture - Preliminary Blood - Venous No growth after 48 hours. 02/18/25 17:51 Blood Culture - Preliminary Blood - Venous No growth after 48 hours. Discharge Plan Discharge Anticipated Discharge Date/Time: 02/21/25 10:35 Patient Disposition: Xfer SNF Discharge Diagnosis: Uncomplicated diverticulitis UTI Generalized weakness Referrals: Myah Singh MD [Primary Care Provider] - 1 Week Discharge Medications: New amoxicillin-pot clavulanate 875-125 mg Tablet 1 tab PO Q12H 7 Days Qty: 14 0RF Continued calcium carbonate-vitamin D3 [Calcium 600 + D(3)] 600 mg-5 mcg (200 unit) tablet 1 tab PO BID ascorbic acid (vitamin C) [Vitamin C] 500 mg tablet 1 tab PO BID mirtazapine 15 mg tablet 1 tab PO BEDTIME ferrous sulfate 325 mg (65 mg iron) tablet,delayed release (DR/EC) 1 tab PO Q OTHER DAY fluoxetine 40 mg capsule 40 mg PO BEDTIME donepezil 10 mg tablet 10 mg PO DAILY memantine 10 mg tablet 10 mg PO BID montelukast 10 mg tablet 10 mg PO BEDTIME lisinopril 20 mg tablet 20 mg PO DAILY amlodipine 5 mg tablet 5 mg PO DAILY aspirin 81 mg tablet,delayed release (DR/EC) 81 mg PO DAILY cetirizine 5 mg tablet 5 mg PO DAILY omeprazole 40 mg capsule,delayed release(DR/EC) 40 mg PO DAILY@0630 mirabegron [Myrbetriq] 50 mg tablet extended release 24 hr 50 mg PO DAILY trazodone 50 mg tablet 50 mg PO BEDTIME haloperidol lactate 2 mg/mL concentrate 1 mg PO BEDTIME ketotifen fumarate 0.025 % (0.035 %) drops 1 drp ophthalmic (eye) DAILY erythromycin 5 mg/gram (0.5 %) ointment 1 appl ophthalmic (eye) BEDTIME polyethylene glycol 3350 17 gram powder in packet 17 g PO DAILY PRN (Reason: Constipation) docusate sodium 100 mg capsule 100 mg PO BID Jardiance 10 mg tablet 10 mg PO DAILY atorvastatin 20 mg tablet 20 mg PO DAILY Discharge Orders: Discharge Order (Routine); Ordered 02/21/25 Ordered By: Liliana Westfall Activity on Discharge: As tolerated Stand Alone Forms: Patient Portal Discharge page Print Language: Moldovan Care Plan Goals: See below Health Concerns: Acute uncomplicated diverticulitis UTI Generalized weakness Plan of Treatment: Complete course of antibiotics as prescribed wean oxygen as tolerated Assessment: See discharge summary
--- NOTE | 2025-02-21 12:09 | MHC.CM.PN ---
Addendum entered by Sinai Nelson RN 02/21/25 12:12: Granddaughter/HCP Elena aware of dc. Original Note: Per MD rounds patient medically cleared for dc to STR @ [facility]. BLS transport scheduled for 1pm. Patient and RN aware.
[2025-02-21 13:07] VITALS: BP 142/69; PULSE 83; RESP 16; TEMP 36.9; O2SAT 94
== END 2025-02-21 13:53 | disposition skilled nursing facility (03) ==
LOC: HO.ED 18:54 → HO.EDOVER 19:54 → HO.IMC 02-19 08:45 → HO.EDOVER 02-19 09:43 → HO.S3 02-20 07:41
PROVIDERS: Internal Medicine; Admitting Provider Physician Assistant; Emergency Provider Emergency Medicine Emergency Medical Services; PCP Family Medicine; Visit Provider Physician Assistant Medical
DX: K57.32 Diverticulitis of large intestine without perforation or abscess without bleeding (principal); R53.1 Weakness; E11.22 Type 2 diabetes mellitus with diabetic chronic kidney disease; I12.9 Hypertensive chronic kidney disease with stage 1 through stage 4 chronic kidney disease, or unspecified chronic kidney disease; N18.30 Chronic kidney disease, stage 3 unspecified; F03.90 Unspecified dementia, unspecified severity, without behavioral disturbance, psychotic disturbance, mood disturbance, and anxiety; K74.60 Unspecified cirrhosis of liver; R29.6 Repeated falls; G47.33 Obstructive sleep apnea (adult) (pediatric); Z99.89 Dependence on other enabling machines and devices; Z86.73 Personal history of transient ischemic attack (TIA), and cerebral infarction without residual deficits; Z86.718 Personal history of other venous thrombosis and embolism; Z79.02 Long term (current) use of antithrombotics/antiplatelets; Z79.82 Long term (current) use of aspirin; Z79.899 Other long term (current) drug therapy; Z79.01 Long term (current) use of anticoagulants; Z03.818 Encounter for observation for suspected exposure to other biological agents ruled out
CPT/HCPCS: 0241U; 36415; 71045; 74177; 80048; 80076; 81001; 83605; 83690; 85025; 87040; 87086; 87088; 87186; 93005; 97162; 99221; 99285; J0696; J1650; J1836; J2543; Q9967

== ENCOUNTER → 2025-02-18 11:34 | Outpatient (BNV) | payer OTHER, SELFPAY | PROVIDERS: Emergency Provider Emergency Medicine Emergency Medical Services; Visit Provider Internal Medicine Cardiovascular Disease | DX: I45.10 Unspecified right bundle-branch block (principal) | CPT/HCPCS: 93010 ==

== ENCOUNTER → 2025-02-18 11:34 | Outpatient (BNV) | payer OTHER, SELFPAY | PROVIDERS: Emergency Provider Emergency Medicine Emergency Medical Services; Visit Provider Radiology Diagnostic Radiology | DX: K57.90 Diverticulosis of intestine, part unspecified, without perforation or abscess without bleeding (principal); R07.9 Chest pain, unspecified | CPT/HCPCS: 71045; 74177 ==

== ENCOUNTER → 2025-02-18 19:48 | Outpatient (BNV) | payer OTHER, SELFPAY | PROVIDERS: Admitting Provider Physician Assistant; Emergency Provider Emergency Medicine Emergency Medical Services; Visit Provider Physician Assistant | DX: K57.92 Diverticulitis of intestine, part unspecified, without perforation or abscess without bleeding (principal); R53.1 Weakness | CPT/HCPCS: 99223; 99232 ==

== ENCOUNTER 2025-03-25 08:32 | Emergency (ER) | payer OTHER, SELFPAY ==
--- NOTE | ~2025-03-25 | XR_ITS ---
EXAMINATION: XR HIP, RIGHT CLINICAL INFORMATION: pain, injury, fall COMPARISON: 11/27/2021. TECHNIQUE: AP pelvis, and Two views of the right hip. FINDINGS: Normal bone mineralization. No fracture or malalignment. Pelvis appears intact. Sacrum and sacral arches appear intact. SI joints appear intact. Hip joints appear intact. Proximal femurs appear intact. 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 No evidence of AVN. Soft tissues appear normal. XR/XR hip RT w [id number] IMPRESSION: No acute bony findings of the pelvis or right hip. Electronically signed by: J Carlos Walker MD 03/25/2025 09:48 AM EDT
--- NOTE | ~2025-03-25 | CT_ITS ---
EXAMINATION: CT CERVICAL SPINE WITHOUT CONTRAST CLINICAL INFORMATION: Fall, head strike. COMPARISON: None available. TECHNIQUE: 3 mm thin axial and reformatted 2 mm thin sagittal and coronal images of cervical spine were obtained. This CT examination was performed using dose optimization techniques as appropriate, variously including the following: *Automated exposure control *Adjustment of mA and/or kV according to patient size (this includes techniques or standardized protocols for targeted exams where dose is matched to indication/reason for exam; i.e. extremities or head) *Use of iterative reconstruction technique DLP: 1067 mGy/cm. FINDINGS: There is normal cervical lordosis. The vertebral heights, alignment and disc heights are normal. The craniovertebral junction and C1-C2 alignment is normal. No visible acute fracture, dislocation or subluxation seen. There is mild ventral spondylosis C7-T1 and C6/7 disc levels. There is no visible acute fracture, dislocation or subluxation seen. There is bilateral apical pleural thickening and parenchymal scarring. The airway is widely patent. Thyroid lobes are symmetrical and normal. CT/CT cervical spine wo IV con IMPRESSION: Mild DJD. No acute fracture, dislocation or subluxation in cervical spine. Fleischner guidelines were followed. Electronically signed by: Vidal Moreno MD 03/25/2025 09:59 AM EDT
--- NOTE | ~2025-03-25 | CT_ITS ---
EXAMINATION: CT HEAD WITHOUT CONTRAST CLINICAL INFORMATION: Fall, head strike. COMPARISON: None available. TECHNIQUE: Contiguous axial imaging was performed from the skull base to vertex without intravenous administration of contrast. This CT examination was performed using dose optimization techniques as appropriate, variously including the following: *Automated exposure control *Adjustment of mA and/or kV according to patient size (this includes techniques or standardized protocols for targeted exams where dose is matched to indication/reason for exam; i.e. extremities or head) *Use of iterative reconstruction technique Dose 1067 mGy/cm. FINDINGS: There is no acute intra-axial, extra-axial bleed, masses or midline shift. There is no acute infarction evolution. There is no edema. The parsons to white matter differentiation is maintained normal. The lateral ventricles are symmetrical in size and configuration but mildly enlarged. No abnormality seen in the posterior fossa. Bilateral optic globes and optic nerves are symmetrical. There is bilateral metallic breanna likely for tunnel detachment correction. Bone windows reveal no calvarial abnormality. There is no scalp soft tissue body. Bilateral paranasal sinuses and mastoid air cells are well-aerated. CT/CT head/brain wo IV con IMPRESSION: No acute intracranial process seen. Electronically signed by: Vidal Moreno MD 03/25/2025 09:54 AM EDT RP
--- NOTE | 2025-03-25 09:03 | ED_ITS ---
HPI - General Adult General Chief complaint: Fall Stated complaint: UNWIT FALL OOB PER STAFF,CUT TO BROW,+CCOLLAR,+ASA Time Seen by Provider: 03/25/25 09:01 Source: patient and EMS Mode of arrival: EMS Limitations: physical limitation (patient is demented at baseline) History of Present Illness ED Provider: Yudi Menezes PA-C HPI narrative: Patient is an 89 year old assigned female at with a history of diverticulitis, dementia, DONAVAN on CPAP, CVA, CKD, and HTN presenting to the emergency department today after an unwitnessed fall. [facility] staff states that the patient was found on the floor next to her bed. Patient is pleasantly confused - denies any complaints at this tme. Related Data Home Medications ?Medication ?Instructions ?Recorded ?Confirmed ascorbic acid (vitamin C) 500 mg 1 tab PO BID 11/27/21 02/18/25 tablet (Vitamin C) calcium 600 mg (as 1 tab PO BID 11/27/21 02/18/25 carbonate)-vitamin D3 5 mcg (200 unit) tablet (Calcium 600 + D(3)) ferrous sulfate 325 mg (65 mg 1 tab PO Q OTHER DAY 11/27/21 02/18/25 iron) tablet,delayed release mirtazapine 15 mg tablet 1 tab PO BEDTIME 11/27/21 02/18/25 amlodipine 5 mg tablet 5 mg PO DAILY 01/23/23 02/18/25 aspirin 81 mg tablet,delayed 81 mg PO DAILY 01/23/23 02/18/25 release cetirizine 5 mg tablet 5 mg PO DAILY 01/23/23 02/18/25 donepezil 10 mg tablet 10 mg PO DAILY 01/23/23 02/18/25 empagliflozin 10 mg tablet 10 mg PO DAILY 01/23/23 02/18/25 (Jardiance) fluoxetine 40 mg capsule 40 mg PO BEDTIME 01/23/23 02/18/25 lisinopril 20 mg tablet 20 mg PO DAILY 01/23/23 02/18/25 memantine 10 mg tablet 10 mg PO BID 01/23/23 02/18/25 montelukast 10 mg tablet 10 mg PO BEDTIME 01/23/23 02/18/25 omeprazole 40 mg capsule,delayed 40 mg PO DAILY@0630 01/23/23 02/18/25 release docusate sodium 100 mg capsule 100 mg PO BID 05/24/23 02/18/25 atorvastatin 20 mg tablet 20 mg PO DAILY 07/27/23 02/18/25 mirabegron 50 mg tablet,extended 50 mg PO DAILY 07/10/24 02/18/25 release 24 hr (Myrbetriq) haloperidol lactate 2 mg/mL oral 1 mg PO BEDTIME 11/21/24 02/18/25 concentrate trazodone 50 mg tablet 50 mg PO BEDTIME 11/21/24 02/18/25 erythromycin 5 mg/gram (0.5 %) eye 1 appl ophthalmic (eye) BEDTIME 02/18/25 02/18/25 ointment ketotifen fumarate 0.025 % (0.035 1 drp ophthalmic (eye) DAILY 02/18/25 02/18/25 %) eye drops polyethylene glycol 3350 17 gram 17 g PO DAILY PRN Constipation 02/18/25 02/18/25 oral powder packet Previous Rx's ?Medication ?Instructions ?Recorded amoxicillin 875 mg-potassium 1 tab PO Q12H 7 days #14 tabs 02/21/25 clavulanate 125 mg tablet Allergies Allergy/AdvReac Type Severity Reaction Status Date / Time ceftazidime [Ceftazidime] Allergy Mild UNKNOWN Verified 03/25/25 09:06 benzocaine [Benzocaine] Allergy Unknown UNKNOWN Verified 03/25/25 09:06 butamben [From Cetacaine] Allergy Unknown UNKNOWN Verified 03/25/25 09:06 metoclopramide [From Reglan] Allergy Unknown UNKNOWN Verified 03/25/25 09:06 morphine [Morphine] Allergy Unknown SWELLING Verified 03/25/25 09:06 tetracaine [From Cetacaine] Allergy Unknown UNKNOWN Verified 03/25/25 09:06 Review of Systems 2 Constitutional: Constitutional: Reports no additional constitutional complaints, Denies chills, Denies fever(s) and Denies night sweats Eyes: Eyes: Reports no additional eye complaints, Denies blurry vision, Denies change in vision, Denies diplopia, Denies eye discharge, Denies loss of vision and Denies eye pain ENT: Denies dizziness Cardiovascular: Cardiovascular: Reports no additional cardiovascular complaints, Denies chest pain, Denies lightheadedness, Denies Loss of Consciousness and Denies dyspnea Respiratory: Respiratory: Reports no additional respiratory complaints and Denies dyspnea Gastrointestinal: Gastrointestinal: Reports no additional gastrointestinal complaints, Denies abdominal pain, Denies melena, Denies hematochezia, Denies change in bowel habits and Denies change in stool character Genitourinary: Genitourinary: Denies hematuria, Denies urinary frequency, Denies dysuria, Denies urinary incontinence, Denies urinary hesitancy and Denies urinary urgency Musculoskeletal: Musculoskeletal: Reports no additional musculoskeletal complaints, Denies numbness and Denies tingling Neurologic: Reports confusion (per her baseline), Denies dizziness, Denies loss of vision, Denies numbness and Denies tingling Psychiatric: Psychiatric: Reports no additional psychiatric complaints and Reports confusion (per her baseline) Endocrine: Endocrine: Reports no additional endocrine complaints Hematologic/Lymphatic: Hematologic/Lymphatic: Reports no additional hematologic/lymphatic complaints Allergic/Immunologic: Allergic/Immunologic: Reports no additional allergic/immunologic complaints [facility] Past Medical History Attestation statement: The following information was validated with the patient. Source: old records reviewed and nursing notes reviewed Medical History Sepsis Cirrhosis of liver DONAVAN (obstructive sleep apnea) Diabetes Allergic dermatitis Hives CVA (cerebral vascular accident) Non-alcoholic micronodular cirrhosis of liver CKD (chronic kidney disease) Dementia Hypertension Surgical History Hx of cholecystectomy No pertinent past surgical history Family History Family History Father No problems noted. Mother No problems noted. Social History Social History Household Members: Unknown / Unable to assess Housing: Unknown / Unable to assess Do you presently have visiting nurse or other home services: No Alcohol intake: current Alcohol intake frequency: does not drink Patient Tobacco Use Status: Former Tobacco user Second Hand Smoke Exposure: No Advance Directives: Yes Advance Directives on File: Yes Advance Directives Date on File: 12/07/21 Do you have a plan to hurt others: No Plan service: No Physical Exam ED Vital Signs: Vital Signs - 24 hr 03/25/25 09:04 03/25/25 09:31 03/25/25 10:04 Temperature 98.1 F 98.1 F Pulse Rate 81 81 72 Respiratory Rate 16 16 16 Blood Pressure 125/65 125/65 149/64 H Pulse Oximetry 96 96 98 Oxygen Delivery Method Room Air Room Air BMI result Body Mass Index 30.5 Const General: confusion (per her baseline) Nutritional Appearance: well nourished Orientation/consciousness: oriented to person and confusion (per her baseline) HENMT Head: Yes normal to inspection and Yes atraumatic Ears: hearing grossly normal bilaterally and external ears normal General nose exam: Normal external nose present, no nasal discharge noted and no epistaxis Face and sinus: Yes normal facial exam, No abrasion and No laceration Mouth: Normal oral and palatal mucosa present, no drooling and no muffled voice Eyes Conjunctivae: conjunctivae normal Pupils: Equal, round and reactive pupils present EOM: EOMs intact bilaterally Eyes/upper lids images: 2 1. small abrasion - no active bleeding, no gaping. Neck Other: patient is in C-Collar Chest Chest palpation & inspection: normal inspection of the chest Resp Effort & Inspection: normal respiratory effort and able to speak in complete sentences GI Inspection: Yes normal to inspection Neuro General: oriented to person and confusion (per her baseline) Cranial nerves: Yes Equal, round and reactive pupils present Extrem Other: pain with palpation of the right hip General: Yes normal to inspection, Yes full ROM and Yes capillary refill normal Psych Appearance: grossly normal Mental Status: mental status grossly normal Affect: normal affect Attitude: cooperative Medical Decision Making Medical Decision Making MDM Narrative: Patient is an 89 year old assigned female at with a history of diverticulitis, dementia, DONAVAN on CPAP, CVA, CKD, and HTN presenting to the emergency department today after an unwitnessed fall. Patient's physical exam showed a pleasantly confused 89 year old with a small right lower eye lid abrasion and pain with palpation of the right hip. Patient's right hip and pelvis x-ray showed no acute process. Patient's CT head and c-spine showed no acute process. I explained my physical exam findings as well as all test results to the patient and the patient's HCP Elena. I answered all questions asked by the patient and the patient's HCP. Patient ambulated in the department without any issues / incident. I stressed the importance of the patient taking her medication as directed (either prescribed or as the over the counter packaging recommends). I stressed the importance of the patient following up with her primary care provider. I stressed the importance of the patient returning to the emergency department immediately if her symptoms were to worsen or if she were to develop any dizziness, shortness of breath, difficulty breathing, chest pain, blurry vision, loss of vision, nausea, vomiting, abdominal pain, fever, chills, back pain, or any other complaints. Patient and the patient's HCP verbalized agreement and understanding with this treatment plan and discharge. Differential Diagnosis Differential Diagnoses: The differential diagnosis associated with the presentation includes Fall Contusion Abrasion Admission/Observation Consideration of admission/observation: Escalation of care including admission/observation considered Patient would have been admitted to the hospital had her work up had any findings where hospital admission was appropriate and her clinical presentation warranted hospital admission. Independent Interpretation I performed an independent interpretation of an: Plain X-Ray and CT Scan Interpretation: My interpretation is in agreement with the radiologist's impression of these imaging studies. L EXAMINATION: XR HIP, RIGHT CLINICAL INFORMATION: pain, injury, fall COMPARISON: 11/27/2021. TECHNIQUE: AP pelvis, and Two views of the right hip. FINDINGS: Normal bone mineralization. No fracture or malalignment. Pelvis appears intact. Sacrum and sacral arches appear intact. SI joints appear intact. Hip joints appear intact. Proximal femurs appear intact. 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 No evidence of AVN. Soft tissues appear normal. XR/XR hip RT w [id number] IMPRESSION: No acute bony findings of the pelvis or right hip. Electronically signed by: J Carlos Walker MD 03/25/2025 09:48 AM EDT Dictated By: J Carlos Walker MD Signed By: Electronically signed by J Carlos Walker MD 03/25/25 0948 Report Number: [id number]: Total DLP = 374.00 mGy-cm EXAMINATION: CT CERVICAL SPINE WITHOUT CONTRAST CLINICAL INFORMATION: Fall, head strike. COMPARISON: None available. TECHNIQUE: 3 mm thin axial and reformatted 2 mm thin sagittal and coronal images of cervical spine were obtained. This CT examination was performed using dose optimization techniques as appropriate, variously including the following: *Automated exposure control *Adjustment of mA and/or kV according to patient size (this includes techniques or standardized protocols for targeted exams where dose is matched to indication/reason for exam; i.e. extremities or head) *Use of iterative reconstruction technique DLP: 1067 mGy/cm. FINDINGS: There is normal cervical lordosis. The vertebral heights, alignment and disc heights are normal. The craniovertebral junction and C1-C2 alignment is normal. No visible acute fracture, dislocation or subluxation seen. There is mild ventral spondylosis C7-T1 and C6/7 disc levels. There is no visible acute fracture, dislocation or subluxation seen. There is bilateral apical pleural thickening and parenchymal scarring. The airway is widely patent. Thyroid lobes are symmetrical and normal. CT/CT cervical spine wo IV con IMPRESSION: Mild DJD. No acute fracture, dislocation or subluxation in cervical spine. Fleischner guidelines were followed. Electronically signed by: Vidal Moreno MD 03/25/2025 09:59 AM EDT RP Dictated By: Vidal Moreno MD Signed By: Electronically signed by Vidal Moreno MD 03/25/25 0959 Report Number: [id number]: Total DLP = 692.00 mGy-cm EXAMINATION: CT HEAD WITHOUT CONTRAST CLINICAL INFORMATION: Fall, head strike. COMPARISON: None available. TECHNIQUE: Contiguous axial imaging was performed from the skull base to vertex without intravenous administration of contrast. This CT examination was performed using dose optimization techniques as appropriate, variously including the following: *Automated exposure control *Adjustment of mA and/or kV according to patient size (this includes techniques or standardized protocols for targeted exams where dose is matched to indication/reason for exam; i.e. extremities or head) *Use of iterative reconstruction technique Dose 1067 mGy/cm. FINDINGS: There is no acute intra-axial, extra-axial bleed, masses or midline shift. There is no acute infarction evolution. There is no edema. The parsons to white matter differentiation is maintained normal. The lateral ventricles are symmetrical in size and configuration but mildly enlarged. No abnormality seen in the posterior fossa. Bilateral optic globes and optic nerves are symmetrical. There is bilateral metallic breanna likely for tunnel detachment correction. Bone windows reveal no calvarial abnormality. There is no scalp soft tissue body. Bilateral paranasal sinuses and mastoid air cells are well-aerated. CT/CT head/brain wo IV con IMPRESSION: No acute intracranial process seen. Electronically signed by: Vidal Moreno MD 03/25/2025 09:54 AM EDT RP Dictated By: Vidal Moreno MD Signed By: Electronically signed by Vidal Moreno MD 03/25/25 0954 Radiology Impression Discussion of test interpretation with radiology: I have reviewed the radiologist's reading. Independent Historian Clinical information obtained from an independent historian. History obtained from or confirmed by: EMS (EMS provided additional history and confirmed the history provided by the patient.) Discharge Plan Discharge Clinical Impression: Fall, Abrasion of eyelid Patient Disposition: [facility] Transfer Details: Back to [facility] Instructions: Fall Prevention for Older Adults (ED), Abrasion (ED) Additional Instructions: Follow up with your primary care provider. Return to the emergency department immediately if your symptoms worsen or if you develop any dizziness, shortness of breath, difficulty breathing, chest pain, blurry vision, loss of vision, nausea, vomiting, abdominal pain, fever, chills, back pain, or any other complaints. Divya?seguimiento?con watt m?dico de atenci?n primaria. Acuda inmediatamente al servicio de urgencias si martita s?ntomas empeoran o si presenta falta de aliento, dificultad para respirar, dolor tor?cico, mareos, aturdimiento, dolor de espalda, dolor abdominal, fiebre, escalofr?os o cualquier otro s?ntoma. Prescriptions: No Action calcium carbonate-vitamin D3 [Calcium 600 + D(3)] 600 mg-5 mcg (200 unit) tablet 1 tab PO BID ascorbic acid (vitamin C) [Vitamin C] 500 mg tablet 1 tab PO BID mirtazapine 15 mg tablet 1 tab PO BEDTIME ferrous sulfate 325 mg (65 mg iron) tablet,delayed release (DR/EC) 1 tab PO Q OTHER DAY fluoxetine 40 mg capsule 40 mg PO BEDTIME donepezil 10 mg tablet 10 mg PO DAILY memantine 10 mg tablet 10 mg PO BID montelukast 10 mg tablet 10 mg PO BEDTIME lisinopril 20 mg tablet 20 mg PO DAILY amlodipine 5 mg tablet 5 mg PO DAILY aspirin 81 mg tablet,delayed release (DR/EC) 81 mg PO DAILY cetirizine 5 mg tablet 5 mg PO DAILY omeprazole 40 mg capsule,delayed release(DR/EC) 40 mg PO DAILY@0630 mirabegron [Myrbetriq] 50 mg tablet extended release 24 hr 50 mg PO DAILY trazodone 50 mg tablet 50 mg PO BEDTIME haloperidol lactate 2 mg/mL concentrate 1 mg PO BEDTIME ketotifen fumarate 0.025 % (0.035 %) drops 1 drp ophthalmic (eye) DAILY erythromycin 5 mg/gram (0.5 %) ointment 1 appl ophthalmic (eye) BEDTIME polyethylene glycol 3350 17 gram powder in packet 17 g PO DAILY PRN (Reason: Constipation) amoxicillin-pot clavulanate 875-125 mg Tablet 1 tab PO Q12H 7 Days Qty: 14 0RF docusate sodium 100 mg capsule 100 mg PO BID Jardiance 10 mg tablet 10 mg PO DAILY atorvastatin 20 mg tablet 20 mg PO DAILY Referrals: Venus Mayberry MD [Primary Care Provider] - Print Language: French
[2025-03-25 09:04] VITALS: BP 125/65; BP 138/82; PULSE 115; PULSE 81; RESP 16; TEMP 36.7; O2SAT 96; O2SAT 97; BMI 30.5
[2025-03-25 09:31] VITALS: BP 125/65; PULSE 81; RESP 16; TEMP 36.7; O2SAT 96
--- OUTSIDE RECORDS SUMMARY | 2025-03-25 09:56 | XMS_ITS | Encounter Summary ---
Author Organization [email or web address] Address [address] [place] [address] Care Team Providers Care Wire Threader Name Role Phone Tony Arreola MD Primary Care Provider [phone] Encounter Details Date Type Department Care Team (Late st Contact Info) Description 12/21/2024 Lab Requisition [facility] - Main Lab [address] [place] [address] Tony Arreola MD [address] [place] [address] [address] [place], [phone] Weakness; Unspecified dementia, unspecified severity, without behavioral disturbance, psychotic disturbance, mood disturbance, and anxiety (CMS/HCC V24, CMS/HCC V28) Social History Tobacco Use Types Packs/Day Years Used Date Smoking Tobacco: Never Assessed Comments Unknown Sex and Gender Information Value Date Recorded Sex Assigned at Not on file Legal Sex Female 4:33 AM EST Gender Identity Not on file Sexual Orientation Not on file documented as of this encounter Plan of Treatment Not on file documented as of this encounter Procedures Procedure Name Priority Date/Time Associated Diagnosis Comments COMPLETE BLOOD COUNT Routine 12/23/2024 6:50 AM EST Weakness Unspecified dementia, unspecified severity, without behavioral disturbance, psychotic disturbance, mood disturbance, and anxiety (CMS/HCC) BASIC METABOLIC PANEL Routine 12/23/2024 6:50 AM EST Weakness Unspecified dementia, unspecified severity, without behavioral disturbance, psychotic disturbance, mood disturbance, and anxiety (CMS/HCC) documented in this encounter Results * (ABNORMAL) Basic metabolic panel (12/23/2024 6:50 AM EST) Sodium 144 133 - 145 mmol/L LAB CHEMISTRY METHOD 12/23/2024 12:53 PM [facility] Potassium 4.2 3.5 - 5.5 mmol/L LAB CHEMISTRY METHOD 12/23/2024 12:53 PM [facility] Chloride 111(H) 96 - 110 mmol/L LAB CHEMISTRY METHOD 12/23/2024 12:53 PM [facility] CO2 28 21 - 32 mmol/L LAB CHEMISTRY METHOD 12/23/2024 12:53 PM [facility] Anion Gap 5 3 - 11 LAB CHEMISTRY METHOD 12/23/2024 12:53 PM [facility] Glucose 84 70 - 100 mg/dL LAB CHEMISTRY METHOD 12/23/2024 12:53 PM [facility] BUN 22 5 - 25 mg/dL LAB CHEMISTRY METHOD 12/23/2024 12:53 PM [facility] Creatinine 1.25(H) 0.50 - 1.10 mg/dL LAB CHEMISTRY METHOD 12/23/2024 12:53 PM [facility] eGFR 42(L) >=60 mL/min/1. 73m2 LAB CHEMISTRY METHOD 12/23/2024 12:53 PM [facility] Comment:Calculation based on the??Chronic Kidney Disease Epidemiology Collaboration (CKD-EPI) equation refit??without adjustment for race. BUN/Creatinine Ratio 17.6 LAB CHEMISTRY METHOD 12/23/2024 12:53 PM [facility] Calcium 9.3 8.5 - 10.5 mg/dL LAB CHEMISTRY METHOD 12/23/2024 12:53 PM [facility] Blood Venous blood specimen / Unknown Venipuncture / Unknown 12/23/2024 6:50 AM EST 12/23/2024 10:55 AM EST us Tony Arreola MD LAB BLOOD ORDERABLES Final Resul t [facility] [address] [place] [address], [place] [phone] * (ABNORMAL) Complete blood count (12/23/2024 6:50 AM EST) [facility] WBC 6.0 4.8 - 10.8 K/mcL LAB HEMETOLOGY METHOD 12/23/2024 12:49 PM [facility] RBC 4.70 3.80 - 4.80 M/mcL LAB HEMETOLOGY METHOD 12/23/2024 12:49 PM [facility] Hemoglobin 13.4 11.5 - 16.0 g/dL LAB HEMETOLOGY METHOD 12/23/2024 12:49 PM [facility] Hematocrit 43.6 35.0 - 47.0 % LAB HEMETOLOGY METHOD 12/23/2024 12:49 PM [facility] MCV 93.6 79.0 - 98.0 FL LAB HEMETOLOGY METHOD 12/23/2024 12:49 PM [facility] MCH 28.8 27.0 - 32.0 pcg LAB HEMETOLOGY METHOD 12/23/2024 12:49 PM [facility] MCHC 30.7(L) 32.0 - 37.0 g/dL LAB HEMETOLOGY METHOD 12/23/2024 12:49 PM [facility] RDW 14.8 11.0 - 15.0 % LAB HEMETOLOGY METHOD 12/23/2024 12:49 PM [facility] Platelets 142 130 - 400 K/mcL LAB HEMETOLOGY METHOD 12/23/2024 12:49 PM [facility] MPV 12.0(H) 7.0 - 11.0 FL LAB HEMETOLOGY METHOD 12/23/2024 12:49 PM [facility] NRBC 0.0 <1.0 % LAB HEMETOLOGY METHOD 12/23/2024 12:49 PM [facility] NRBC Absolute 0.00 <0.10 K/mcL LAB HEMETOLOGY METHOD 12/23/2024 12:49 PM EST [facility] Blood Venous blood specimen / Unknown Venipuncture / Unknown 12/23/2024 6:50 AM EST 12/23/2024 10:55 AM EST us Tony Arreola MD LAB BLOOD ORDERABLES Final Resul t [facility] [address] [place] [address], documented in this encounter Visit Diagnoses Diagnosis Weakness Other malaise and fatigue Unspecified dementia, unspecified severity, without behavioral disturbance, psychotic disturbance, mood disturbance, and anxiety (CMS/HCC V24, CMS/HCC V28) documented in this encounter Care Teams Wire Threader Relationship Specialty Start Date End Date Tony Arreola MD [address] [place] [address], [phone] PCP - General Family Medicine 12/14/24 documented as of this encounter
--- OUTSIDE RECORDS SUMMARY | 2025-03-25 09:56 | XMS_ITS | Encounter Summary ---
Author Organization [facility] Address [address] [place] [address] Phone Care Team Providers Care Professor Of Anthropology Name Role Phone Unavailable Primary Care Provider Unavailabl e Reason for Visit * Reason Comments Med Refill Encounter Details Date Type Department Care Team ([facility] st Contact Info) Description 12/10/2021 Refill [facility] [address] [place] [phone] Chino Martinez MD [address] [facility] [address] [place] [phone] Social History Tobacco Use Types Packs/Day Years Used Date Smoking Tobacco: Former Alcohol Use Standard Drinks/Week Comments No 0 (1 standard drink = 0.6 oz pur e alcohol) Comments Unknown Sex and Gender Information Value Date Recorded Sex Assigned at Not on file Legal Sex Female 5:01 PM EST Gender Identity Not on file Sexual Orientation Not on file documented as of this encounter Miscellaneous Notes * Telephone Encounter - Chino Martinez MD - 12/11/2021 7:54 AM EST Needs f/u in 5-6 weeks with me 1. tell them I sent rx but no refils 2. They must see me or have a telehealth visit with me before I can renew it again 3. when u call them be sure to make the f/u appt at the same time u inform them th rx was sent by me documented in this encounter Plan of Treatment Not on file documented as of this encounter Visit Diagnoses Not on filedocumented in this encounter
--- OUTSIDE RECORDS SUMMARY | 2025-03-25 09:56 | XMS_ITS | Encounter Summary ---
Author Organization [facility] Address [address] [place] [address] Care Team Providers Care Information Tech Name Role Phone Tony Arreola MD Primary Care Provider Encounter Details Date Type Department Care Team (Late st Contact Info) Description 11/29/2024 Lab Requisition [facility] Lab [address] [place] [address] Tony Arreola MD [address] [facility] [address] [place], [phone] Weakness; Unspecified dementia, unspecified severity, without [...] Associated Diagnosis Comments COMPLETE BLOOD COUNT Routine 12/02/2024 7:21 AM EST Weakness Unspecified dementia, unspecified severity, without behavioral disturbance, psychotic disturbance, mood disturbance, and anxiety (CMS/HCC) BASIC METABOLIC PANEL Routine 12/02/2024 7:21 AM EST Weakness Unspecified dementia, unspecified severity, without behavioral disturbance, psychotic disturbance, mood disturbance, and anxiety (CMS/HCC) documented in this encounter Results * (ABNORMAL) Basic metabolic panel (12/02/2024 7:21 AM EST) Sodium 144 133 - 145 mmol/L LAB CHEMISTRY METHOD 12/02/2024 11:[address] [facility] Potassium 4.0 3.5 - 5.5 mmol/L LAB CHEMISTRY METHOD 12/02/2024 11:[address] [facility] Chloride 112(H) 96 - 110 mmol/L LAB CHEMISTRY METHOD 12/02/2024 11:[address] [facility] CO2 27 21 - 32 mmol/L LAB CHEMISTRY METHOD 12/02/2024 11:[address] [facility] Anion Gap 5 3 - 11 LAB CHEMISTRY METHOD 12/02/2024 11:[address] [facility] Glucose 80 70 - 100 mg/dL LAB CHEMISTRY METHOD 12/02/2024 11:[address] [facility] BUN 28(H) 5 - 25 mg/dL LAB CHEMISTRY METHOD 12/02/2024 11:[address] [facility] Creatinine 1.19(H) 0.50 - 1.10 mg/dL LAB CHEMISTRY METHOD 12/02/2024 11:[address] [facility] eGFR 44(L) >=60 mL/min/1. 73m2 LAB CHEMISTRY METHOD 12/02/2024 11:[address] [facility] Comment:Calculation based on the??Chronic Kidney Disease Epidemiology Collaboration (CKD-EPI) equation refit??without adjustment for race. BUN/Creatinine Ratio 23.5 LAB CHEMISTRY METHOD 12/02/2024 11:[address] [facility] Calcium 9.3 8.5 - 10.5 mg/dL LAB CHEMISTRY METHOD 12/02/2024 11:[address] [facility] Blood Venous blood specimen / Unknown Venipuncture / Unknown 12/02/2024 7:21 AM EST 12/02/2024 10:33 AM EST us Tony Arreola MD LAB BLOOD ORDERABLES Final Resul t [facility] [address] [place] [address], * (ABNORMAL) Complete blood count (12/02/2024 7:21 AM EST) [facility] WBC 6.8 4.8 - 10.8 K/mcL LAB HEMETOLOGY METHOD 12/02/2024 10:[address] [facility] RBC 4.40 3.80 - 4.80 M/mcL LAB HEMETOLOGY METHOD 12/02/2024 10:[address] [facility] Hemoglobin 12.9 11.5 - 16.0 g/dL LAB HEMETOLOGY METHOD 12/02/2024 10:[address] [facility] Hematocrit 41.3 35.0 - 47.0 % LAB HEMETOLOGY METHOD 12/02/2024 10:[address] [facility] MCV 93.9 79.0 - 98.0 FL LAB HEMETOLOGY METHOD 12/02/2024 10:[address] [facility] MCH 29.3 27.0 - 32.0 pcg LAB HEMETOLOGY METHOD 12/02/2024 10:[address] [facility] MCHC 31.2(L) 32.0 - 37.0 g/dL LAB HEMETOLOGY METHOD 12/02/2024 10:[address] [facility] RDW 14.5 11.0 - 15.0 % LAB HEMETOLOGY METHOD 12/02/2024 10:[address] [facility] Platelets 155 130 - 400 K/mcL LAB HEMETOLOGY METHOD 12/02/2024 10:[address] [facility] MPV 11.6(H) 7.0 - 11.0 FL LAB HEMETOLOGY METHOD 12/02/2024 10:[address] [facility] NRBC 0.0 <1.0 % LAB HEMETOLOGY METHOD 12/02/2024 10:[address] [facility] NRBC Absolute 0.00 <0.10 K/mcL LAB HEMETOLOGY METHOD 12/02/2024 10:57 AM EST [facility] Blood Venous blood specimen / Unknown Venipuncture / Unknown 12/02/2024 7:21 AM EST 12/02/2024 10:33 AM EST us Tony Arreola MD LAB BLOOD ORDERABLES Final Resul t [facility] [address] [place] [address], documented in this encounter Visit Diagnoses Diagnosis Weakness Other malaise and fatigue Unspecified dementia, unspecified severity, without behavioral disturbance, psychotic disturbance, mood disturbance, and anxiety (CMS/HCC V24, CMS/HCC V28) documented in this encounter Care Teams Information Tech Relationship Specialty Start Date End Date Tony Arreola MD [address] [place] [address], [phone] PCP - General Family Medicine 12/14/24 documented as of this encounter
--- OUTSIDE RECORDS SUMMARY | 2025-03-25 09:56 | XMS_ITS | Data Portability ---
Author Organization [facility] Card [facility], Main Office Address [address] [facility], [address] [place] [address] Care Team Providers Care Skeiner Name Role Phone [facility] OTHER Assessment No assessment recorded. Plan of Treatment Reminders Order Date Submit Date Provider Last Modified By Organization Details Last Modified Time Details Appointments None record ed. Lab None record ed. Referral None record ed. Procedures None record ed. Surgeries None record ed. Imaging None record ed. Medication Orders None record ed. Patient TargetsNo targets recorded. Patient InstructionsNo instructions recorded. Reason for Referral None Reported. Problems Name Problem SNOMED Code Status Onset Date Resolution Date Notes Provider Name and Address Organization Details Recorded Time Chronic kidney disease stage 3A 314245318 Active 2024 Tony Arreola MD [address] [facility], [address], [place], [address] , [facility] [employer] 5 08:58:43 Cirrhosis of liver 74335838 Active 2024 Tony Arreola MD [address] [facility], [address], [place], [address] , [facility] [employer] 5 08:58:50 Aortic valve stenosis 84129121 Active 2024 Tony Arreola MD [address] [facility], [address], [place], [address] , [employer] 5 08:59:06 Diabetes mellitus 64663373 Active 2024 Tony Arreola MD [address] [facility], [address], [place], [address] , [facility] [employer] 5 08:59:17 Type 2 diabetes mellitus 43368447 Active 2023 Not Available [facility] [employer] [facility] 5 10:33:31 Muscle weakness 33544931 Active 2023 Not Available [facility] 5 10:33:31 Difficult y walking 071831923 Active 2023 Not Available [facility] 5 10:33:32 Dyspnea 003304849 Active 2023 Not Available [facility] 5 10:33:32 Anxiety disorder 195736165 Active 2023 Not Available [facility] 5 10:33:33 Insomnia 711868637 Active 2023 Not Available [facility] 5 10:33:34 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 85985839213 9100 Active 2023 Not Available [facility] 5 10:33:34 Cerebrova scular disease 17162854 Active 2023 Not Available [facility] 5 10:33:35 Fall Active 2023 Not Available [facility] 5 10:33:36 Allergic contact dermatiti s 908837483 Active 2023 Not Available [facility] 5 10:33:37 Diaphragm atic hernia 05320761 Active 2023 Not Available [facility] 5 10:33:38 Constipat ion 07174767 Active 2023 Not Available [facility] 5 10:33:38 Coronavir us infection 768439994 Active 2023 Not Available [facility] 5 10:33:39 Dementia associate d with another disease 351623856 Active 2023 Not Available [facility] 5 10:33:39 Chronic kidney disease stage 3 647587243 Active 2023 Not Available [facility] 5 10:33:39 Delusiona l disorder 28544751 Active 2024 Not Available [facility] 5 12:34:52 Asthma 125203329 Active 2017 ISABELLEANGELITA LEÓN [address] [place] [address], [address], [place], [address] , [employer] 8 15:12:32 Dementia 14808000 Active 2017 ANGELITA VANG [address] [place] [address], [address], [place], [address] , [employer] [facility] 8 15:12:53 Depressiv e disorder 89567550 Active 2017 ANGELITA VANG [address] [place] [address], [address], [place], [address] , [employer] 8 15:13:06 Coronary arteriosc lerosis 31240130 Active 2017 history of NSTEMI ANGELITA VANG [address] [place] [address], [address], [place], [address] , [employer] 8 15:13:24 Hyperlipi demia 19078818 Active 2017 ANGELITA VANG [address] [place] [address], [address], [place], [address] , [employer] 8 15:14:00 Essential hypertens ion 42724019 Active 2017 ANGELITA VANG [address] [place] [address], [address], [place], [address] , [employer] [facility] 8 15:14:57 History of cerebrova scular accident 147337253 Active 2017 right sided weakness ANGELITA VANG [address] [facility], [address], [place], [address] , [employer] 8 15:15:19 Influenza 4020002 Active 2017 ANGELITA VANG [address] [facility], [address], [place], [address] , [employer] [facility] 8 16:02:49 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 Active 2017 ISABELLE ANGELITA SHAH [address] , [address], [place], [address] , [facility] 8 16:05:54 Osteoporo sis 54353487 Active 2017 KHLOE VANGP [address], [address], [place], [address] , [employer] [facility] 8 16:06:06 Gastroeso phageal reflux disease 592302029 Active 2017 ISABELLE ANGELITA SHAH [address] , [address], [place], [address] , [employer] [facility] 8 16:08:23 Asthenia 26476763 Active 2017 Thais Rocha MD [address] [facility], [address], [place], [address] , [employer] [facility] 8 13:54:57 Acute kidney injury 52531084 Active 2017 Thais Rocha MD [address] [facility], [address], [place], [address] , [employer] [facility] 8 14:30:45 Problem Notes None recorded. Medical Equipment None Reported. Allergies Allergen ID Allergen Name Allergen Category Reaction Reaction Severity Criticality Documentation Date Start Date Code Code System Note Provider Name and Address Organization Details Recorded Time 80941 Reglan medicatio n Not available Not available Not available 12/19/20242023 9230 RxNorm Not Available Not Available Not Available 9455 tetracain e medicatio n Not available Not available Not available 01/03/20182023 40616 RxNorm Not Available Not Available Not Available 9456 benzocain e medicatio n Not available Not available Not available 01/03/20182023 1399 RxNorm Not Available Not Available Not Available 9457 butamben medicatio n Not available Not available Not available 01/03/20182023 79695 RxNorm Not Available Not Available Not Available 9458 morphine medicatio n Not available Not available Not available 01/03/20182023 7052 RxNorm Not Available Not Available Not Available 9459 metoclopr amide Not available Not available Not available Not available 01/03/2018 6915 RxNorm Not Available Not Available Not Available 9460 ceftazidi me anhydrous medicatio n Not available Not available Not available 01/03/20182023 62800 84 RxNorm Not Available Not Available Not Available Medications Name Sig Start Date Stop Date Status Note LastModified by Organization Details LastModified Time fluoxetine 40 mg capsule Give 1 capsule by mouth at bedtime for depressio n 2024 active Not Available Not Available Not Avai l[employer] Miralax 17 gram/dose oral powder Give 1 packet by mouth one time a day for constipat ion 2023 active Not Available Not Available Not Avai lable atorvastati n 20 mg tablet Give 1 tablet by mouth in the evening for cholester ol 2024 active Not Available Not Available Not Avai lable donepezil 10 mg tablet Give 10 mg by mouth at bedtime for dementia 2024 active Not Available Not Available Not Avai lable Children's Aspirin 81 mg chewable tablet Give 1 tablet by mouth one time a day for blood thinner Monitor for bleeding, bruising, and black tarry stools 2024 active Not Available Not Available Not Avai lable amlodipine 5 mg tablet Give 0.5 tablet by mouth one time a day for hypertens ion TD = 2.5 mg hold for systolic less than 120 2024 active Not Available Not Available Not Avai lable Desyrel 50 mg tablet Give 1 tablet by mouth at bedtime for insomnia 2024 active Not Available Not Available Not Avai lable mirtazapine 15 mg tablet Give 1 tablet by mouth at bedtime for insomnia 2024 active Not Available Not Available Not Avai lable Prinivil 20 mg tablet Give 1 tablet by mouth one time a day for hypertens ion hold for systolic bp of less than 120 2023 active Not Available Not Available Not Avai lable Laxative (sennosides ) 8.6 mg tablet Give 1 tablet by mouth every 24 hours as needed for Constipat ion 2023 active Not Available Not Available Not Avai lable Oyster Shell Calcium-Vit chaudhry D3 600 mg-5 mcg (200 unit) tablet Give 1 tablet by mouth two times a day for Supplemen t Take with food. Separate by 2 hours from iron.Do not give within 4 hours of Levothyro xine. 2023 active Not Available Not Available Not Avai lable memantine 10 mg tablet Give 1 tablet by mouth two times a day for dementia May cause drowsines s. Avoid alcohol. 2023 active Not Available Not Available Not Avai lable erythromyci n with ethanol 2 % topical solution Apply to right eye topically three times a day for conjuncti vitis for 7 Days 12/31 completed Not Available Not Available Not Available sodium phosphates 19 gram-7 gram/197 mL enema Insert 1 unit rectally every 24 hours as needed for Constipat ion Use only if Bisacodyl Supposito ry is ineffecti ve 2023 active Not Available Not Available Not Avai lable mirabegron ER 50 mg tablet,exte nded release 24 hr Give 1 tablet by mouth one time a day for maitenenc e 2023 active Not Available Not Available Not Avai lable Jardiance 10 mg tablet Give 1 tablet by mouth one time a day for diabetes 2023 active Not Available Not Available Not Avai lable Acid Super[facility] (omeprazole ) 20 mg capsule,del ayed release Give 2 capsule by mouth one time a day for gerd 2023 active Not Available Not Available Not Avai lable aspirin 81 mg capsule Give 81 mg by mouth one time a day for blood thinner 2023 active Not Available Not Available Not Avai lable OneLAX Bisacodyl 10 mg rectal suppository Insert 1 supposito ry rectally every 24 hours as needed for constipat ion Use if Senna is Ineffecti ve 2023 active Not Available Not Available Not Avai lable Vitals Date Recorded Heart rate Respiratory rate Body temperature Oxygen saturation Oxygen saturation in Arterial blood by Pulse oximetry Systolic blood pressure Diastolic blood pressure Provider Name and Address Organization Details Last Updated DateTime 5 67 /min 14 /min 97.9 [degF] 96 % 96 % 102 mm[Hg] 49 mm[Hg] HAKEEM JOHNSON NP [address] [facility], [address], [place], [address], [place] [facility] [employer] 5 14:47:00 Date Recorded Body height Body mass index (BMI) Body weight Heart rate Respiratory rate Body temperature Oxygen saturation Oxygen saturation in Arterial blood by Pulse oximetry Systolic blood pressure Diastolic blood pressure Provider Name and Address Organization Details Last Updated DateTime 5 152.4 cm 32.9 kg/m2 11220.9 6 g 72 /min 20 /min 97.3 [degF] 95 % 95 % 114 mm[Hg] 63 mm[Hg] Thais Rocha MD [address] [facility], [address], [place], [address], [employer] 5 18:57:01 Date Recorded Systolic blood pressure Diastolic blood pressure Provider Name and Address Organization Details Last Updated DateTime 12/02/2024 122 mm[Hg] 57 mm[Hg] Tony Arreola MD [address] [facility], [address], [place], [address], [employer] 12/02/2024 08:50:04 Social History Question Answer Notes LastModified by Organizat ion Details LastModified Time Tobacco Smoking Status Former Smoker Thais Rocha MD [address] [facility], [address], [place], [address], [employer] 01/04/2018 14:12:51 Do You Have An Advance Directive? Yes DNR/DNI/DNV, Ok To Hosp, No Dialysis, No Art. Nutrition, Ok For Short Term Hydration Information not available 01/04/2018 What Is Your Level Of Alcohol Consumption? None Information not available 01/04/2018 How Much Tobacco Do You Chew? None Information not available 01/04/2018 What Is Your Code Status? DNR/DNI [email or web address] Information not available 12/02/2024 How Many Days In The Past Year Have You Had A Heavy Drinking Consumption (4+ Female, 5+ Male)? 0 Information not available 01/04/2018 Do You Have A Medical Power Of Experience Designer? Yes Information not available 01/04/2018 What Was The Date Of Your Most Recent Tobacco Screening? 01/04/2018 Information not available 06/19/2019 Do You Use Any Illicit Or Recreational Drugs? No Information not available 12/19/2024 Has Tobacco Cessation Counseling Been Provided? No N/a As Pt No Longer Smokes Information not available 12/19/2024 Do You Or Have You Ever Used Any Other Forms Of Tobacco Or Nicotine? No Information not available 12/19/2024 Sex: Unknown Functional Status None recorded. Mental Status None recorded. Family History Nothing Reported Notes:N/C Medical History No medical history recorded. Gynecological HistoryNo gynecological history recorded. Obstetrics History GPAL:G 0 P 0 0 0 0 Past Encounters Encounter ID Performer Location Encounter Start Date Encounter Closed Date Diagnosis/Indication Diagnosis SNOMED-CT Code Diagnosis ICD10 Code Diagnosis Note [id number] [facility] [address] [place] [address] [place] [address] 01/03/2018 15:00:09 01/12/2018 16:14:28 Influenza 2037566 J10.89 Flu A + in hospitalTa miflu was completedm onitor Essential hypertension 01248004 I10 lisinopril 20 mg qdlasix 20 mg qdnorvasc 5 mg qdmonitor b/p and labs Hyperlipidemia 14269988 E78.2 atorvastat in 20 mg qdmonitor labs Depressive disorder 3548 9007 F32.0 prozac 40 mg qdremeron 15 mg qdtrazodon e 50 mg qdhaldol 1 mg qdneg consult prnmonitor mood Dementia 30761624 F02.80 namenda 10 mg bidaricept 10 mg qdmonitor mood Coronary arteriosclerosis 66696055 I25.10 ASA 81 mg qdmonitor Osteoporosis 49495107 M8 1.0 calcium carbonate/ vit. D3 600/vit d bidmonitor labs Bladder mu scle dysfunction - overactive 949325398 N32.81 myrbetriq 50 mg qdincontin ent of urinemonit or History of cerebrovascular accident 086738013 Z86.73 right sided weaknessmo nitor Asthma 882408682 J45.20 zyrtec 10 mg qdmonitor resp status Gastroesop hageal reflux disease 529660383 K21.9 omeprazole 40 mg qdmonitor Asthenia 92483254 R53.1 PT/[place] eval [place] [id number] MD MICAELA Engle [address] [place] [address] [place] [address] 01/04/2018 13:51:14 01/12/2018 16:19:02 Asthenia 60455398 R53.1 Guerrero david after acute illness, needs PT/OT for strengthen ing and gait training. At baseline ambulates with walker. Anticipate less than 30 day stay and return home. Influenza 8041614 J10.89 Positive for influenza A in hospital, completed course of Tamiflu.Mo nitor Essential hypertension 69093135 I10 Stable on lisinopril 20 mg qd, lasix 20 mg qd and norvasc 5 mg qd.monitor BP and labs Hyperlipidemia 34458323 E78.2 Continue atorvastat in 20 mg qdmonitor chol with PCP. Depressive disorder 3548 9007 F32.0 Continue prozac 40 mg qd, remeron 15 mg qd, trazodone 50 mg qd and haldol 1 mg qd. Monitor mood and consider NEG consult Dementia 07617206 F02.80 Continue namenda 10 mg bid and aricept 10 mg qd. Expect continued decline. Provide supportive care. Coronary arteriosclerosis 01318127 I25.10 Continue ASA 81 mg qd and statin. F/U with Cardio prn Osteoporosis 22865337 M8 1.0 Continue calcium carbonate/ vit. D3 600/vit d bid Bladder mu scle dysfunction - overactive 400409568 N32.81 Continue myrbetriq 50 mg qdmonitor History of cerebrovascular accident 171159112 Z86.73 Residual right sided weakness. PT/OT as above. Follow for recurrence . Asthma 225514007 J45.20 Continue zyrtec 10 mg qdmonitor resp status Gastroesop hageal reflux disease 656437143 K21.9 No current sxs, continue omeprazole 40 mg qdmonitor Acute kidney injury 1466 9001 N17.8 Improved in hospital, not 100% nl. Will recheck today. May have baseline mild CRF. [id number] ANGELITA VANG [address] [facility] [place] [address] 01/08/2018 13:49:05 01/12/2018 16:24:28 Cough 82573975 R05 bilateral lungs with wheezes and rhonchi throughout cough noted but non productive had flu in hospitalPP D was planted and is 30 mmchest x-ray orderedduo nebs ordered qid x3 days and prnmonitor for worsening symptoms [id number] ANGELITA VANG MICHELLE [address] [place] [address] 01/10/2018 13:57:28 01/12/2018 16:27:43 Cough 25607703 R05 continues with cough but now has yellow sputumstat es she feels betterbila teral lungs are clear nowcontinu e to monitor [id number] MD MICAELA Mayo MICHELLE [address] [place] [address] 01/15/2018 10:39:11 01/15/2018 13:20:57 Acute low back pain 884304448 M54.5 x ray L-S spineproba ble mild left sacroillii tisPT OT eval and treattylen ol for paincontin ue to monitorcon isder SI brace [id number] ANGELITA VANG MICHELLE [address] [place] [address] 01/24/2018 13:45:00 01/25/2018 11:35:41 Dementia 91986436 F02.80 namenda 10 mg bidaricept 10 mg qdfollow up with PCP Hyperlipidemia 04265875 E78.2 atorvastat in 20 mg qdfollow up with PCP Essential hypertension 17907366 I10 lisinopril 20 mg qdlasix 20 mg qdnorvasc 5 mg qdfollow up with PCP Gastroesop hageal reflux disease 164326416 K21.9 omeprazole 40 mg qdfollow up with PCP Osteoporosis 80189038 M8 1.0 calcium carbonate/ vit. D3 600/vit d bidtylenol prn pain follow up with PCP Depressive disorder 3548 9007 F32.0 prozac 40 mg qdremeron 15 mg qdtrazodon e 50 mg qdhaldol 1 mg qdfollow up with PCP Asthma 486773134 J45.20 zyrtec 10 mg qdfollow up with PCP Coronary arteriosclerosis 46415310 I25.10 ASA 81 mg qdfollow up with PCP Bladder mu scle dysfunction - overactive 654366303 N32.81 myrbetriq 50 mg qdfollow up with PCP History of cerebrovascular accident 287577939 Z86.73 right sided weaknessfo llow up with PCP [id number] [place] [address] 12/02/2024 08:34:30 12/03/2024 11:00:58 Asthenia 94853833 R53.1 PT OT Eval and treatmonit or fall risk and need for increased support in community Essential hypertension 48817204 I10 lisinopril 20 mg qdnorvasc 5 mg qdmonitor bp and need to titrate Hyperlipidemia 97356669 E78.2 lipitor 20 mg qdcontinue d Depressive disorder 3548 9007 F32.0 prozac 40 mg qdremeron 15 mg qdmonitor moodsee above Dementia 22339882 F02.80 baseline dementiain voke HCP - granddaugh tercontinu e supportive caremonito r for behaviorsp sych eval prnaricept 10 mg qdnamenda 10 mg bidof note currently on haldol qd - will await psych rec Coronary arteriosclerosis 27998426 I25.10 lipitor 20 mg qdasa 81 mg qdmonitor forupdate cards with concerns Gastroesop hageal reflux disease 051596664 K21.9 omeprazole 40 mg qdmonitor for sx relief COVID-19 293833283 U07.1 limited informatio n will request dc summary appears dx with covid now completed treatment Diabetes mellitus 062676 09 E11.9 carrying dx added to PMHjardian ce 10 mg qdmonitor blood glucose prn Aortic valve stenosis 60 484333 I35.0 limited informatio n availabler equest notes from PCP Cirrhosis of liver 007 K74.69 limited informatio n availabler equest notes from PCP Chronic ki dney disease stage 3A 518946423 N18.31 monitor renal functionav oid nephrotoxi c meds as ablenephro consult prn [id number] [place] [address] 12/09/2024 14:46:28 12/11/2024 08:32:16 Asthenia 13939475 R53.1 PT OT Eval and treatmonit or fall risk and need for increased support in community Dementia 74804294 F02.80 baseline dementiain voke HCP - granddaugh tercontinu e supportive caremonito r for behaviorsp sych eval prnaricept 10 mg qdnamenda 10 mg bidof note currently on haldol qd - will await psych rec COVID-19 229048003 U07.1 limited informatio n appears dx with covid now completed treatmentm onitor for sequelae Essential hypertension 20795778 I10 BP soft the past week or so.CBC today stable, chem pendingMai ntain fluidsCurr ently on:lisinop ril 20 mg qdnorvasc 5 mg qd - reduce to 2.5 mg qdmonitor bp and need to titrate Hyperlipidemia 42474431 E78.2 Continue lipitor 20 mg qdConsider stopping, ? benefit vs, risk in frail elder Depressive disorder 3548 9007 F32.0 prozac 40 mg qdremeron 15 mg qdmonitor moodsee above Coronary arteriosclerosis 07750119 I25.10 Continue:l ipitor 20 mg qdasa 81 mg qdmeds for BP controlmon itor VS, CP statusupda te cards with concerns Gastroesop hageal reflux disease 476586542 K21.9 Continue omeprazole 40 mg qdmonitor for sx relief Diabetes mellitus 158071 09 E11.9 carrying dx added to PMHjardian ce 10 mg qdmonitor blood glucose - bid x 7 days, then re-eval.ch yovany A1C prn Aortic valve stenosis 60 085716 I35.0 limited informatio n availabler equest notes from PCP Cirrhosis of liver 007 K74.69 limited informatio n availabler equest notes from PCP Chronic ki dney disease stage 3A 576132452 N18.31 monitor renal functionav oid nephrotoxi c meds as ablenephro consult prn [id number] Thais Rocha MD [facility] [address] [place], [place] [address] 12/19/2024 18:31:17 12/20/2024 16:13:52 Diabetes mellitus 16385635 E11.9 With low sugars since here.Will change fingerstic ks to fasting on Mon & th and prn (compromis e with granddaugh ter from my preference of M/W/F).Con tinue Jardiance 10 [place]. [id number] [place] [address] 12/24/2024 09:08:15 12/31/2024 08:39:05 Diabetes mellitus 68764787 E11.9 With low sugars since here.[place] nue Jardiance 10 mg qd.monitor with VNAconside r decrease in jardiance if BS remains < 100 given age of 89 Asthenia 58061552 R53.1 continue PT OTworking on doing stairsfami ly very supportive VNA services in place per Dementia 07863968 F02.80 baseline dementiain voke HCP - granddaugh teraricept 10 mg qdnamenda 10 mg bidhaldol once daily COVID-19 807619627 U07.1 resolved Essential hypertension 23831522 I10 improved with reduced dose of amlodipine lisinopril 20 mg qdnorvasc 2.5 mg qdmonitor bp and consider decrease outptpermi ssive BP goals for frail elderly of < 160/ 90 Hyperlipidemia 56784101 E78.2 Continue lipitor 20 mg qdlipids yearly outpt Depressive disorder 3548 9007 F32.0 prozac 40 mg qdremeron 15 mg qdmonitor mood outpt Coronary arteriosclerosis 36823430 I25.10 Continue:l ipitor 20 mg qdasa 81 mg qdmeds for BP control Gastroesop hageal reflux disease 745830713 K21.9 Continue omeprazole 40 mg qdmonitor for sx relief outpt Aortic valve stenosis 60 858344 I35.0 limited informatio n availablen o CP or sob here Cirrhosis of liver 007 K74.69 limited informatio n available Chronic ki dney disease stage 3A 132550344 N18.31 monitor renal function, stable 12/23 labsavoid nephrotoxi c meds as ablenephro consult prn Conjunctivitis 0919693 H 10.9 erythro ophthalmic qid x 7 daysmonito r for improvemen [place] [id number] [place] [address] 12/27/2024 09:21:35 12/31/2024 09:41:18 Diabetes mellitus 90017675 E11.9 With low sugars since here.[place] nue Jardiance 10 mg qd.monitor with VNAconside r decrease in jardiance if BS remains < 100 given age of 89f/up with pcp Asthenia 87783774 R53.1 completed STR stayable to do stairshas [employer] 6 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 at homefamily very supportive VNA services in place per SWf/up with pcp Dementia 34283977 F02.80 baseline dementiain voke [facility] tercontinu e supportive care with [facility] 6 hr per day at homearicep t 10 mg qdnamenda 10 mg bidhaldol once dailyf/up with pcp COVID-19 430184957 U07.1 resolvedf/ up with pcp Essential hypertension 67772022 I10 improved with reduced dose of amlodipine lisinopril 20 mg qdnorvasc 2.5 mg qdmonitor bp and consider decrease outptpermi ssive BP goals for frail elderly of < 160/ 89f/up with pcp Hyperlipidemia 64595145 E78.2 Continue lipitor 20 mg qdlipids yearly outptf/up with pcp Depressive disorder 3548 9007 F32.0 prozac 40 mg qdremeron 15 mg qdmonitor mood outptf/up with pcp Coronary arteriosclerosis 76996383 I25.10 Continue:l ipitor 20 mg qdasa 81 mg qdmeds for BP controlf/u p with pcp Gastroesop hageal reflux disease 316807109 K21.9 Continue omeprazole 40 mg qdmonitor for sx relief outptf/up with pcp Aortic valve stenosis 60 600713 I35.0 limited informatio n availablen o CP or sob heref/up with pcp Cirrhosis of liver 007 K74.69 limited informatio n availablef /up with pcp Chronic ki dney disease stage 3A 178410744 N18.31 monitor renal function, stable 12/23 labsavoid nephrotoxi c meds as ablenephro consult prnf/up with pcp Conjunctivitis [id number] H 10.9 erythro ophthalmic qid x 7 daysmonito r at homef/up with pcp Health Concerns Section Related Observation LastModified by Organization Detai ls LastModified Time None Recorded Concern Status LastModified by Organization Details LastModified Time None Recorded Advance Directives Directive Y: DNR/DNI/DNV, ok to hosp, no dialysis, no art. nutrition, ok for short term hydration Payers Encounter Date Sequence Insurance Name Policy Number Policy Gonzalez Covered Member ID Gonzalez Member ID Guarantor Name 12/02/2024 1 [employer] - DOS ON OR AFTER 2023 - [place]/ADV ANTAGE - PPO) Sienna Mendez [id number] Elena Hurtado 12/02/2024 2 [place] [facility] Sienna Mendez [id number] Elena Hurtado 12/09/2024 1 [employer] - DOS ON OR AFTER 2023 [place]V [place] - [place]PO) Sienna Mendez [id number] Elena Hurtado 12/09/2024 2 [place] [facility] Sienna Mendez [id number] Elena Hurtado 12/19/2024 1 [employer] - DOS ON OR AFTER 2023 [place]V [place] - [place]PO) Sienna Mendez [id number] Elena Hurtado 12/19/2024 2 [place] [facility] Sienna [facility] [id number] Elena Hurtado 12/24/2024 1 [employer] - DOS ON OR AFTER 2023 [place] - [place]PO) Sienna Mendez [id number] Elena Hurtado 12/24/2024 2 [place] [facility] Sienna Mendez [id number] Elena Hurtado 12/27/2024 1 [employer] - DOS ON OR AFTER 2023 - [place]V [place] - [place]PO) Sienna Mendez [id number] Elena Hurtado 12/27/2024 2 [place] [facility] Sienna Mendez [id number] Elena Hurtado Notes Date Note Type Note Provider Name and Address Organization Details Recorded Time 12/02/2024 text/html Patient is an 89 yo female admit from hospital after presenting with increased weakness and global decline. Initial work up concerning for UTI started on rocephin then d/c after further results available. It appears patient tested positive for covid. Improved with supportive care however not felt safe to return home at that time PMH significant fordementiacrf stage 3cirrhosisASdmhtncad gerdhlddepressionhx CVA admit to facility for continued support and therapy eval and treat Tony Arreola MD [address] [facility], [address], [place], [address], [facility] [employer] 12/02/2024 09:20:00 12/09/2024 text/html Sienna is seen t wayne for an acute visit. She is an 89 yo female admit from hospital after presenting with increased weakness and global decline. Initial work up concerning for UTI started on rocephin then d/c after further results available. It appears patient tested positive for covid. Improved with supportive care however not felt safe to return home at that time. Upon exam, Sienna is resting in bed, awake, quiet, NAD. She denies any complaints this am.No issues reported by nsg. Case discussed with [employer], who reports she did not eat as well today compared to other days. No other concerns. VSS, BP on the soft side the past week.Labs stable, chem pending today.No BS documented PMH: dementia , crf stage 3, cirrhosis, , dm, htn, cad, gerd, hld, depression, hx CVA HAKEEM JOHNSON NP [address] [facility], [address], [place], [address], [facility] [employer] 12/09/2024 15:01:58 12/19/2024 text/html I am asked to se e this 89 yo khmer speaking woman arceliaight because her granddaughter is concerned that her fingers are getting sore from frequent fingersticks. She says she doesn't really even have diabetes, she's just borderline and at home the says to just check once a week or so.Since she has been here sugars have all but one been <150 (and mostly <100), with one being 308.I explain to granddaughter that she does actually have DM, but sugars are good because she is on empagliflozin. And that we usually like to check more frequently the 1st week someone is here.But I agree she doesn't need daily fingersticks.She denies other c/o (granddaughter translates). Her PMH includes HTN, depression, hx of CVA, CAD s/p NSTEMI, cirrhosis, asthma, HLD, CKD stage 3B, GERD, depression, and dementia. Thais Rocha MD [address] [facility], [address], [place], [address], [facility] [employer] 12/19/2024 19:10:59 12/24/2024 text/html Patient is an 89 yo female being seen today for routine rounding visit. She was an admit from hospital after presenting with increased weakness and global decline. Initial work up concerning for UTI started on rocephin then d/c after further results available. It appears patient tested positive for covid. Improved with supportive care however not felt safe to return home at that time Pt continue her STR stay working with therapy. She is getting close to discharge and wants to go home. Labs from 12/23 are unremarkable. Blood sugars on the lower end. Bp is controlled. Her eye is pink and itchy. Her PMH includes HTN, depression, hx of CVA, CAD s/p NSTEMI, cirrhosis, asthma, HLD, CKD stage 3B, GERD, depression, and dementia. MICHAEL RAMOS [address] [facility], [address], [place], [address], [facility] [employer] 12/29/2024 16:21:25 12/27/2024 text/html Patient is an 89 yo female being seen today for discharge summary visit. She was an admit from hospital after presenting with increased weakness and global decline. Initial work up concerning for UTI started on rocephin then d/c after further results available. It appears patient tested positive for covid. Improved with supportive care however not felt safe to return home at that time Pt completed her STR stay with therapy and is now felt safe to return home. Labs from 12/23 are unremarkable. Blood sugars on the lower end. Bp is controlled. She started erythro eye gtts for suspect pink eye. Pt has two supportive children and received 6 hrs per day of [employer] [employer] care. Seen today and she is medically clear for dc home with meds and services. Her PMH includes HTN, depression, hx of CVA, CAD s/p NSTEMI, cirrhosis, asthma, HLD, CKD stage 3B, GERD, depression, and dementia. ATIF RAMOSC [address] [place] [address], [address], [place], [address], [facility] 12/27/2024 09:38:55 OBGyn Episode No OBEpisode recorded.
--- OUTSIDE RECORDS SUMMARY | 2025-03-25 09:56 | XMS_ITS | Data Portability ---
Author Organization [facility], [place] [facility] Address [address] [place] [id number] Care Team Providers Care Willow Analyst Name Role Phone [facility] Referring Provider [phone] Assessment Encounter Date Assessment Date Assessment LastModified by Organization Details LastModified Time 09/10/2022 09/10/2022 87y F with CKD 3, HTN, dementia presenting for r/o UTI iso behavior changes (getting naked and getting into bed) for past 1-2 weeks. Only other focal hx or exam finding is RUQ tenderness. UA without signs of infection or dehydration. CMP WNL except mildly elevated cr c/w known CKD diagnosis. UA sent for culture. Recommend that PCP's office attempt to reach out to patient's family or help her schedule f/u in the office in the next 1-2 weeks. In meantime, if symptoms worsen or if she develops fever, vomiting, diarrhea to call us back or present to ER. [email or web address] Not available 09/10/2022 17:39:51 Plan of Treatment Reminders Order Date Submit Date Provider Last Modified By Organization Details Last Modified Time Details Appointments None recorded. Lab cmp, whole blood + waqar [facility], [address] [place] [address], [id number] 10:38:51 culture, urine [facility] (Centralized Electronic Ordering - All Locations), Patient Can Go To The Location Of Their Choice, [id number] 05:01:48 Referral None recorded. Procedures None recorded. Surgeries None recorded. Imaging None recorded. Medication Orders None recorded. Patient TargetsNo targets recorded. Patient InstructionsNo instructions recorded. Reason for Referral None Reported. Results Created Date Observation Date Name Description Value Unit Range Abnormal Flag Note LastModifiedBy Organization Detail LastModifiedTime Result Notes None recorded. Medical Equipment None Reported. Medications Name Sig Start Date Stop Date Status Note LastModified by Organization Details LastModified Time fluoxetine 40 mg capsule TAKE 1 CAPSULE BY MOUTH ONCE A DAY active Not Available Not Available No t Available atorvastatin 20 mg tablet TAKE 1 TABLET BY ORAL ROUTE EVERY BEDTIME active Not Available Not Available No t Available Vitamin C 500 mg tablet TAKE 1 BY ORAL ROUTE 2 TIMES EVERY DAY active Not Available Not Available No t Available trazodone 50 mg tablet TAKE 1 TABLET BY MOUTH AT BEDTIME active Not Available Not Available No t Available cetirizine 5 mg tablet TAKE 1 TABLET BY ORAL ROUTE EVERY DAY active Not Available Not Available No t Available hydrocortiso ne 1 % lotion active Not Available Not Available Not Available donepezil 10 mg tablet TAKE 1 TABLET BY MOUTH EVERY DAY AFTER MEALS active Not Available Not Available No t Available lisinopril 20 mg tablet TAKE 1 TABLET BY ORAL ROUTE EVERY DAY active Not Available Not Available No t Available prednisone 20 mg tablet TAKE 3 TABLET BY ORAL ROUTE EVERY DAY FOR 4 DAYS, THEN 2 TABS DAILY X 4 DAYS THEN 1 TABLET DAILY X 2 DAYS active Not Available Not Available No t Available amlodipine 5 mg tablet TAKE 1 TABLET BY ORAL ROUTE EVERY DAY active Not Available Not Available No t Available omeprazole 40 mg capsule,ashley yed release TAKE 1 CAPSULE (40MG) BY ORAL ROUTE EVERY DAY BEFORE A MEAL active Not Available Not Available No t Available aspirin 81 mg tablet,delay ed release TAKE 1 TABLET BY ORAL ROUTE EVERY DAY active Not Available Not Available No t Available hydrocortiso ne 1 % topical cream active Not Available Not Available Not Available docusate sodium 100 mg capsule TAKE 1 TABLET BY ORAL ROUTE 2 TIMES EVERY DAY active Not Available Not Available No t Available montelukast 10 mg tablet TAKE 1 TABLET BY ORAL ROUTE EVERY DAY IN THE EVENING active Not Available Not Available No t Available furosemide 20 mg tablet TAKE 1 TABLET BY MOUTH EVERY DAY active Not Available Not Available No t Available mirtazapine 15 mg tablet TAKE 1 TABLET BY MOUTH AT BEDTIME active Not Available Not Available No t Available ferrous sulfate 325 mg (65 mg iron) tablet,delay ed release TAKE 1 TABLET BY ORAL ROUTE 2 TIMES EVERY DAY active Not Available Not Available No t Available cefdinir 300 mg capsule active Not Available Not Available N ot Available fluticasone propionate 50 mcg/actuatio n nasal spray,suspen becky SPRAY 1 SPRAY BY INTRANASAL ROUTE EVERY DAY IN EACH NOSTRIL active Not Available Not Available No t Available haloperidol lactate 2 mg/mL oral concentrate TAKE 1/2 ML BY MOUTH ONCE A DAY active Not Available Not Available N ot Available memantine 10 mg tablet TAKE 1 TABLET BY MOUTH TWICE DAILY active Not Available Not Available No t Available Calcium 600 + D(3) 600 mg-5 mcg (200 unit) tablet TAKE 1 TABLET BY MOUTH TWICE DAILY active Not Available Not Available No t Available Myrbetriq 50 mg tablet,exten ded release TAKE 1 TABLET BY MOUTH EVERY DAY active Not Available Not Available No t Available Vitals Date Recorded Respiratory rate Oxygen saturation Oxygen saturation in Arterial blood by Pulse oximetry Body temperature Heart rate Body temperature Oxygen saturation Oxygen saturation in Arterial blood by Pulse oximetry Respiratory rate Heart rate Systolic blood pressure Diastolic blood pressure Systolic blood pressure Diastolic blood pressure Provider Name and Address Organization Details Last Updated DateTime 2 20 /min 94 % 94 % 98 [degF] 84 /min 98 [degF] 94 % 94 % 20 /min 84 /min 101 mm[Hg] 63 mm[Hg] 101 mm[Hg] 63 mm[Hg] Not Available [facility] - production 2 17:29:05 Social History None recorded. Functional Status None recorded. Mental Status None recorded. Family History Nothing Reported. Medical History No medical history recorded. Gynecological HistoryNo gynecological history recorded. Obstetrics History GPAL:G 0 P 0 0 0 0 Past Encounters Encounter ID Performer Location Encounter Start Date Encounter Closed Date Diagnosis/Indication Diagnosis SNOMED-CT Code Diagnosis ICD10 Code Diagnosis Note [id number] Kenia Hernandez MD [facility] [address] [place] [phone] 09/10/2022 16:51:17 09/12/2022 13:08:31 Right upper quadrant pain 965403730 R10.11 Health Concerns Section Related Observation LastModified by Organization Detai ls LastModified Time None Recorded Concern Status LastModified by Organization Details LastModified Time None Recorded Advance Directives Directive None Recorded Payers Encounter Date Sequence Insurance Name Policy Number Policy Gonzalez Covered Member ID Gonzalez Member ID Guarantor Name 09/10/2022 1 [facility] - DOS PRIOR TO 2023 - DUAL ELIGIBLE (MEDICARE REPLACEMENT/ADV ANTAGE - HMO) Sienna Mendez [id number] Sienna Mendez Notes Date Note Type Note Provider Name and Address Organization Details Recorded Time 09/10/2022 text/html HPI: Allergies: Morphine and Atenolol. PCP Dr. Singh requested U/A and Urine Culture to rule out UTI, [facility] nurse attempted to collect sample/Straight cath, unable to collect. Member is 196 lbs, has well controlled psych hx, very polite and has the support from her granddaughter Elena Hurtado, Bilingual and assists coordinate all visitsher number is [phone], member uses this number as her Primary contact. Member is an 87 yo female with old OR, osteoarthritis, thrombocytopenia and HTN hrt & CKD and Modereate Dementia. Pleasantly confused. Supportive family. This RNCP recommends Female Providers if possible. Can the results be faxed to [facility] at [phone] Singh if possible? ...................... ...................... ...................... ...................... ...................... ...................... ......... CRC Nursing Assessment: Comments: CRC RN did not require any additional information to process this visit. Spoke with daughter who agrees to visit for 09/10> would like to be seen early in the day if possible [facility] HPI:chronic kidney disease, dementia, HTN, CAD with acute on chronic progressive behavior changes. eating normally, voiding normally, drinking normally, no vomiting, no diarrhea, no fevers, cough. No one else has been sick at home. No changes the family can identify in terms of schedule. No reports of worse unsteadiness on her feet or falls.Granddaughter reports that PMH includes cirrhosis Kenia Hernandez MD [address] [facility], [place], [address], [employer] 09/10/2022 17:40:46 OBGyn Episode No OBEpisode recorded.
--- OUTSIDE RECORDS SUMMARY | 2025-03-25 09:56 | XMS_ITS | Clinical Summary ---
Author Organization [facility] Facility Address [address] [address] Care Team Providers Care Newspaper Inserter Name Role Phone Unavailable Primary Care Provider Unavailabl e Allergies Active Allergy Reactions Criticality Noted Date Comments Benzocaine 06/25/2014 Butamben 06/25/2014 Morphine Other reaction(s): unspecified Tetracaine 06/25/2014 Medications traZODone (DESYREL) 50 MG tablet TAKE 1 TABLET BY MOUTH ONCE A DAY, AT BEDTIME WITH FOOD WITH FOOD 02/02/2022 Active omeprazole (PriLOSEC) [address] capsule 11/09/2021 Activ e montelukast (SINGULAIR) 10 MG tablet 01/20/2022 Active memantine (NAMENDA) 10 MG tablet TAKE 1 TABLET ORALLY TWICE A DAY 30 DAYS 02/02/2022 Active lisinopril 20 MG tablet 11/09/2021 Active haloperidol (HALDOL) 2 MG/ML solution 12/10/2021 Acti ve Myrbetriq 50 MG tablet sustained-relea se 24 hour 01/20/2022 Active ferrous sulfate 325 (65 Fe) MG EC tablet TAKE 1 TABLET BY ORAL ROUTE 2 TIMES EVERY DAY 01/19/2022 Active docusate sodium (COLACE) 100 MG capsule TAKE 1 TABLET BY ORAL ROUTE 2 TIMES EVERY DAY 12/22/2021 Active Calcium Carb-Cholecalci ferol 600-200 MG-UNIT tablet 11/09/2021 Acti ve atorvastatin (LIPITOR) 20 MG tablet 11/09/2021 Active amLODIPine (NORVASC) 5 MG tablet TAKE 1 TABLET BY ORAL ROUTE EVERY DAY 01/19/2022 Active Aspirin Low Dose 81 MG EC tablet TAKE 1 TABLET BY ORAL ROUTE EVERY DAY 01/19/2022 Active cetirizine (ZyrTEC) 5 MG tablet Take 5 mg by mouth 1 (one) time each day 03/19/2022 Active FLUoxetine (PROzac) 40 MG capsule Take 40 mg by mouth 1 (one) time each day Active mirtazapine (REMERON) 15 MG tablet Take 15 mg by mouth every night Active donepezil (ARICEPT) 10 MG tablet Take 10 mg by mouth every night Active Ascorbic Acid (vitamin C) 100 MG tablet Take 100 mg by mouth 1 (one) time each day Active furosemide (LASIX) 20 MG tablet Take 1 tablet (20 mg total) by mouth 1 (one) time each day 30 tablet 4 12/21/2023 Active Active Problems Problem Noted Date Diagnosed Date Anemia 01/07/2023 Overview (01/23/2023): Last Assessment & Plan: - anemia of chronic disease (CKD, cirrhosis) - continue ferrous sulfate - check lab Aortic valve stenosis 01/07/2023 Overview (01/23/2023): Last Assessment & Plan: - Most recent TTE 10/14/22: There is mild calcification of the aortic valve. There is moderate aortic valve stenosis. The peak aortic gradient is 33 mmHg.The mean gradient is 16 mmHg. There is mild aortic valve regurgitation. -Pt has loud murmur consistent with aortic stenosis -NSTEMI in 2014 -Pt has an upcoming appt with her database designer History of cerebrovascular accident 01/07/2023 Overview (01/23/2023): Last Assessment & Plan: -around 2009 previous medical record -TIA in 2015 -Continue working on secondary prevention / risk factor management History of non-ST segment elevation myocardial i nfarction 01/07/2023 Overview (01/23/2023): Last Assessment & Plan: -Oct 2015 -Previously following with [facility]iology, upcoming appt -Continue risk factor mangement Obesity 01/07/2023 Overview (01/23/2023): Last Assessment & Plan: - DONAVAN, HTN, NAFLD, DM2 - Continue working on lifestyle modifications Mixed urinary incontinence 01/07/2023 Overview (01/23/2023): Last Assessment & Plan: - Pt has OAB, DM2, and dementia - Continue using briefs. Alzheimer's disease 01/07/2023 Overview (01/23/2023): Last Assessment & Plan: -Neurologist: Dr. Estevez -Evaluated with EEG slow wave in 2014 and normal in 2016 -Head CT showed atrophy of brain and microvascular disease -Continue donepezil -Continue memantine Type 2 diabetes mellitus 12/28/2022 Overview (01/23/2023): Last Assessment & Plan: - Dx 2021 - Hgb A1C 6.0% on 12/28/22 - Continue working on lifestyle modifications - Continue checking glucose: Freestyle Lite gluocemeter - Microalbumin test: - Lipid profile: - Diabetic eye exam: - Foot exam: Stage 3b chronic kidney disease 04/20/2022 Chronic kidney disease due to benign hypertensio n 04/20/2022 Renal osteodystrophy 04/20/2022 Chronic kidney disease stage 3 02/15/2022 Edema 02/15/2022 Hypertensive renal disease 02/15/2022 Asthma 09/27/2017 Overview (01/23/2023): Last Assessment & Plan: -Continue montelukast -Continue albuterol HFA prn Dyslipidemia 09/27/2017 Overview (01/23/2023): Last Assessment & Plan: -Last Lipid Profile: 12/28/21 TC 120'; TG 93; HDL 47; LDL -Continue atorvastatin 20 mg at bedtime -Continue working on lifestyle modifications -Monitor LFT as pt has cirrhosis Cirrhosis of liver 08/08/2016 Overview (01/23/2023): Last Assessment & Plan: -previously eavluated by GI, Dr. Jaffe. Last seen in 2015. Impression was due to fatty liver disease. Follow up prn. -Most recent US: 10/25/22 Heterogeneous liver parenchyma with a nodular contour suggesting cirrhosis; Nonobstructive 2.7 cm calculus in the upper pole of the right kidney; Simple left renal cysts for which no imaging follow-up is recommended. -Check lab today -Avoid hepatotoxic drugs. -Work on weight management Obstructive sleep apnea syndrome 08/08/2016 Overview (01/23/2023): Last Assessment & Plan: -05/19/16 Sleep study -Nasal mask of medium size with pressure 7 cm H2O was recommended. -Pt is feeling uncomfortable with current mask -Ordered a home sleep study in Sep 2022, will check its status -Advised to keep using CPAP Hiatal hernia 05/21/2015 Severe major depression with psychotic features 02/23/2015 Thrombocytopenia 03/27/2013 Osteopenia 01/07/2013 Anxiety 12/10/2012 Depressive disorder 12/10/2012 Overview (01/23/2023): Last Assessment & Plan: -psychiatrist: Dr. Diaz -Continue mirtazapine, trazodone, and fluoxetine as prescribed by psychiatrist Gastroesophageal reflux disease 12/10/2012 Overview (01/23/2023): Last Assessment & Plan: - continue famotidine and omeprazole Hypertension 12/10/2012 Overview (01/23/2023): Last Assessment & Plan: -Goal BP < 140/90 per JNC-8 and < 130/80 per ACC/AHA guideline (Treatment threshold ? 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 -Continue lisinopril 20 mg daily. -Continue amlodipine 5 mg daily. -Follow up in 3-6 mo, sooner if any problem arises Osteoarthritis 12/10/2012 Recurrent urinary tract infection 12/10/2012 Overview (01/23/2023): Last Assessment & Plan: - Followed by Dr. Vallecillo - Continue adequate hydration - Caution with SGLT-2 inhibitor Overactive bladder 12/10/2012 Overview (01/23/2023): Last Assessment & Plan: - in a setting of dementia, DM2, and SGLT-2 inhibitor use - Followed by Dr. Vallecillo, [facility] - Continue mirabegron as prescribed Unspecified dementia, unspec ified severity, without behavioral disturbance, psychotic disturbance, mood disturbance, and anxiety 12/10/2012 Overview (01/23/2023): Last Assessment & Plan: -multifactorial: Alzeheimer's; Hx CVA and TIA; hx COVID; depression / anxiety -following with Dr. Estevez, neurologist, last seen in Dec 2021, and psychiatrist Dr. Diaz -continue current medications prescribed by both neurologist and psychiatrist -work on risk factor management -safety -continue providing adequate home care support Immunizations Immunization Administration Dates Next Due Influenza Split 09/27/2013,12/10/2012 Influenza Split High Dose Pr eservative Free IM 12/09/2019,08/23/2018 Influenza, Quadrivalent, Pre servative Free 12/22/2016 Influenza, Quadrivalent, Wit h Preservative 09/27/2017,08/18/2015 Influenza, Unspecified 10/03/2022,2020,10/21/2014,08/22 Pfizer SARS-COV-2 10/03/2022 Pneumococcal Conjugate 13-Valent 02/23/2015 Pneumococcal Polysaccharide 10/04/2001 Shingrix 12/28/2021,09/22/2021 Td 12/29/2022 Tdap 12/10/2012 Zoster 02/23/2015 Family History Medical History Relation Comments Stroke Child daughter Dementia Mother Diabetes Sibling sister, brother Relation Status Comments Child Mother Sibling Social History Tobacco Use Types Packs/Day Years Used Date Smoking Tobacco: Former Alcohol Use Standard Drinks/Week Comments No 0 (1 standard drink = 0.6 oz pur e alcohol) Comments Unknown Sex and Gender Information Value Date Recorded Sex Assigned at Not on file Legal Sex Female 5:01 PM EST Gender Identity Not on file Sexual Orientation Not on file Last Filed Vital Signs Vital Sign Reading Time Taken Comments Blood Pressure 119/64 01/23/2023 4:28 PM EST Pulse 75 01/23/2023 4:28 PM EST Temperature - - Respiratory Rate - - Oxygen Saturation 96% 01/23/2023 4:28 PM EST Inhaled Oxygen Concentration - - Weight 87.4 kg (192 lb 9.6 oz) 01/23/2023 4:28 P M EST Height - - Body Mass Index - - Plan of Treatment Health Maintenance Due Date Last Done Comments Hepatitis B Vaccine (1 of 3 - Risk 3-dose series) 1996 Diabetes: Ophthalmology Exam 01/23/2023 Diabetes: Pedal Pulse Checked 01/23/2023 Diabetes: Sensory Foot Exam 01/23/2023 Diabetes: Visual Foot Exam 01/23/2023 Diabetes: Hemoglobin A1C 03/28/2023 12/29/2022 Influenza Vaccine (Season Ended) 2025 10/03/2022, 09/22/2021, 12/09/2019, Additional history exists Pneumococcal Vaccine: 50+ Years Completed 5, 10/04/2001 Pneumococcal Vaccine: Peds ( 0 to 5 Years) and At-Risk Patients (6 to 49 Years) Discontinued 02/23/2015, 10/04/2001 Insurance [facility] ([id number]) JOJO HICKEY [phone] [facility] ([id number])
--- OUTSIDE RECORDS SUMMARY | 2025-03-25 09:56 | XMS_ITS | Encounter Summary ---
Author Organization [employer] Address [address] [place] [address] Care Team Providers Care Tank Charger Name Role Phone Tony Arreola MD Primary Care Provider [phone] Encounter Details Date Type Department Care Team (Late st Contact Info) Description 02/24/2025 Lab Requisition [facility] - Main Lab [address] [facility] [place] [address] Venus Mayberry MD [address] [place], [place] [id number] Essential (primary) hypertension; Type 2 diabetes mellitus without complications (CMS/HCC V24, CMS/HCC V28) Social History Tobacco [...] Procedure Name Priority Date/Time Associated Diagnosis Comments VITAMIN D 25 HYDROXY Routine 02/24/2025 6:34 AM EDT Essential (primary) hypertension Type 2 diabetes mellitus without complications COMPLETE BLOOD COUNT Routine 02/24/2025 6:34 AM EDT Essential (primary) hypertension Type 2 diabetes mellitus without complications THYROID STIMULATING HORMONE Routine 02/24/2025 6:34 AM EDT Essential (primary) hypertension Type 2 diabetes mellitus without complications HEMOGLOBIN A1C Routine 02/24/2025 6:34 AM EDT Essential (primary) hypertension Type 2 diabetes mellitus without complications FOLATE Routine 02/24/2025 6:34 AM EDT Essential (primary) hypertension Type 2 diabetes mellitus without complications VITAMIN B12 Routine 02/24/2025 6:34 AM EDT Essential (primary) hypertension Type 2 diabetes mellitus without complications COMPREHENSIVE METABOLIC PANEL Routine 02/24/2025 6:34 AM EDT Essential (primary) hypertension Type 2 diabetes mellitus without complications documented in this encounter Results * Vitamin B12 (02/24/2025 6:34 AM EDT) [facility] Vitamin B-12 324 250 - 900 pcg/mL LAB CHEMISTRY METHOD 02/24/2025 12:24 PM EDT [facility] Blood Venous blood specimen / Unknown Venipuncture / Unknown 02/24/2025 6:34 AM EDT 02/24/2025 10:44 AM EDT us Venus Mayberry MD LAB BLOOD ORDERABLES Final Resul t Performing Organization Address City/[facility]/ZIP Co de Phone Number [facility] [address] [place] [address], [place] [phone] * Folate (02/24/2025 6:34 AM EDT) [facility] Folate 11.3 2.8 - 17.0 ng/ml LAB CHEMISTRY METHOD 02/24/2025 12:24 PM EDT [facility] Blood Venous blood specimen / Unknown Venipuncture / Unknown 02/24/2025 6:34 AM EDT 02/24/2025 10:44 AM EDT us Venus Mayberry MD LAB BLOOD ORDERABLES Final Resul t Performing Organization Address City/[facility]/ZIP Co de Phone Number [facility] [address] [place] [address], [place] [phone] * (ABNORMAL) Vitamin D 25 hydroxy (02/24/2025 6:34 AM EDT) Pathologist [facility] Vit D, 25-Hydroxy 29.9(L) 30.0 - 80.0 ng/mL LAB CHEMISTRY METHOD 02/24/2025 1:12 PM EDT [facility] Blood Venous blood specimen / Unknown Venipuncture / Unknown 02/24/2025 6:34 AM EDT 02/24/2025 10:44 AM EDT us Venus Mayberry MD LAB BLOOD ORDERABLES Final Resul t Performing Organization Address [facility] Co de Phone Number [facility] [address] [place] [address], * Thyroid stimulating hormone (02/24/2025 6:34 AM EDT) [facility] TSH 1.44 0.40 - 4.00 mcIU/mL LAB CHEMISTRY METHOD 02/24/2025 1:13 PM EDT [facility] Blood Venous blood specimen / Unknown Venipuncture / Unknown 02/24/2025 6:34 AM EDT 02/24/2025 10:44 AM EDT us Venus Myaberry MD LAB BLOOD ORDERABLES Final Resul t Performing Organization Address [facility] de Phone Number [facility] [address] [place] [address], [place] [phone] * Hemoglobin A1c (02/24/2025 6:34 AM EDT) [facility] Hemoglobin A1C 5.9 <6.5 % LAB CHEMISTRY METHOD 02/24/2025 9:29 PM EDT [facility] Mean Bld Glu Estim. 123 mg/dL LAB CHEMISTRY METHOD 02/24/2025 9:29 PM EDT [facility] Blood Venous blood specimen / Unknown Venipuncture / Unknown 02/24/2025 6:34 AM EDT 02/24/2025 10:44 AM EDT us Venus Mayberry MD LAB BLOOD ORDERABLES Final Resul t [facility] [address] [place] [address], [place] [phone] * (ABNORMAL) Comprehensive metabolic panel (02/24/2025 6:34 AM EDT) Sodium 142 133 - 145 mmol/L LAB CHEMISTRY METHOD 02/24/2025 12:24 PM EDT [facility] Potassium 4.1 3.5 - 5.5 mmol/L LAB CHEMISTRY METHOD 02/24/2025 12:24 PM [facility] Chloride 108 96 - 110 mmol/L LAB CHEMISTRY METHOD 02/24/2025 12:24 PM [facility] CO2 28 21 - 32 mmol/L LAB CHEMISTRY METHOD 02/24/2025 12:24 PM [facility] Anion Gap 6 3 - 11 LAB CHEMISTRY METHOD 02/24/2025 12:24 PM [facility] Glucose 91 70 - 100 mg/dL LAB CHEMISTRY METHOD 02/24/2025 12:24 PM [facility] BUN 30(H) 5 - 25 mg/dL LAB CHEMISTRY METHOD 02/24/2025 12:24 PM [facility] Creatinine 1.02 0.50 - 1.10 mg/dL LAB CHEMISTRY METHOD 02/24/2025 12:24 PM [facility] eGFR 53(L) >=60 mL/min/1. 73m2 LAB CHEMISTRY METHOD 02/24/2025 12:24 PM [facility] Comment:Calculation based on the??Chronic Kidney Disease Epidemiology Collaboration (CKD-EPI) equation refit??without adjustment for race. BUN/Creatinine Ratio 29.4 LAB CHEMISTRY METHOD 02/24/2025 12:24 PM T [facility] Calcium 10.5 8.5 - 10.5 mg/dL LAB CHEMISTRY METHOD 02/24/2025 12:24 PM EDT [facility] AST (SGOT) 31 10 - 42 unit/L LAB CHEMISTRY METHOD 02/24/2025 12:24 PM EDT [facility] ALT (SGPT) 36 10 - 60 unit/L LAB CHEMISTRY METHOD 02/24/2025 12:24 PM EDT [facility] Alkaline Phosphatase 82 42 - 121 unit/L LAB CHEMISTRY METHOD 02/24/2025 12:24 PM EDT [facility] Total Protein 6.8 6.0 - 8.0 g/dL LAB CHEMISTRY METHOD 02/24/2025 12:24 PM [facility] Albumin 3.1(L) 3.2 - 5.0 g/dL LAB CHEMISTRY METHOD 02/24/2025 12:24 PM EDT [facility] Total Bilirubin 0.4 0.0 - 1.4 mg/dL LAB CHEMISTRY METHOD 02/24/2025 12:24 PM T [facility] Blood Venous blood specimen / Unknown Venipuncture / Unknown 02/24/2025 6:34 AM EDT 02/24/2025 10:44 AM EDT us Venus Mayberry MD LAB BLOOD ORDERABLES Final Resul t [facility] [address] [place] [address], * (ABNORMAL) Complete blood count (02/24/2025 6:34 AM EDT) WBC 6.0 4.8 - 10.8 K/mcL LAB HEMETOLOGY METHOD 02/24/2025 1:12 PM EDT [facility] RBC 4.80 3.80 - 4.80 M/mcL LAB HEMETOLOGY METHOD 02/24/2025 1:12 PM EDT [facility] Hemoglobin 14.3 11.5 - 16.0 g/dL LAB HEMETOLOGY METHOD 02/24/2025 1:12 PM EDT [facility] Hematocrit 45.6 35.0 - 47.0 % LAB HEMETOLOGY METHOD 02/24/2025 1:12 PM EDT [facility] MCV 94.2 79.0 - 98.0 FL LAB HEMETOLOGY METHOD 02/24/2025 1:12 PM EDT [facility] MCH 29.5 27.0 - 32.0 pcg LAB HEMETOLOGY METHOD 02/24/2025 1:12 PM EDT [facility] MCHC 31.4(L) 32.0 - 37.0 g/dL LAB HEMETOLOGY METHOD [facility]25 [facility] RDW 14.7 11.0 - 15.0 % LAB HEMETOLOGY METHOD 02/24/2025 1:12 PM EDT [facility] Platelets 154 130 - 400 K/mcL LAB HEMETOLOGY METHOD 02/24/2025 1:12 PM EDT [facility] MPV 11.7(H) 7.0 - 11.0 FL LAB HEMETOLOGY METHOD 02/24/2025 [facility] NRBC 0.0 <1.0 % LAB HEMETOLOGY METHOD 02/24/2025 1:12 PM EDT [facility] NRBC Absolute 0.00 <0.10 K/mcL LAB HEMETOLOGY METHOD 02/24/2025 1:12 PM [facility] Blood Venous blood specimen / Unknown Venipuncture / Unknown 02/24/2025 6:34 AM EDT 02/24/2025 10:44 AM EDT Venus Mayberry MD LAB BLOOD ORDERABLES Final Resul t [facility] [address] [place] [address], documented in this encounter Visit Diagnoses Diagnosis Essential (primary) hypertension Unspecified essential hypertension Type 2 diabetes mellitus without complications (CMS/HCC V24, CMS/HCC V28) documented in this encounter Care Teams Tank Charger Relationship Specialty Start Date End Date Tony Arreola MD [address] [place] [address], [phone] PCP - General Family Medicine 12/14/24 documented as of this encounter
--- OUTSIDE RECORDS SUMMARY | 2025-03-25 09:56 | XMS_ITS | Encounter Summary ---
Author Organization [facility] Address [address] [place] [address] Care Team Providers Care Financial Systems Administrator Name Role Phone Tony Arreola MD Primary Care Provider [phone] Encounter Details Date Type Department Care Team (Late st Contact Info) Description 12/14/2024 Lab Requisition [facility] - Main Lab [address] [place] [address] Tony Arreola MD [address] [facility] [address] [place], [address] Weakness; Unspecified dementia, unspecified severity, without [...] Associated Diagnosis Comments COMPLETE BLOOD COUNT Routine 12/16/2024 7:20 AM EST Weakness Unspecified dementia, unspecified severity, without behavioral disturbance, psychotic disturbance, mood disturbance, and anxiety (CMS/HCC) BASIC METABOLIC PANEL Routine 12/16/2024 7:20 AM EST Weakness Unspecified dementia, unspecified severity, without behavioral disturbance, psychotic disturbance, mood disturbance, and anxiety (CMS/HCC) documented in this encounter Results * (ABNORMAL) Basic metabolic panel (12/16/2024 7:20 AM EST) Sodium 146(H) 133 - 145 mmol/L LAB CHEMISTRY METHOD 12/16/2024 1:55 PM [facility] Potassium 4.1 3.5 - 5.5 mmol/L LAB CHEMISTRY METHOD 12/16/2024 1:55 PM [facility] Chloride 113(H) 96 - 110 mmol/L LAB CHEMISTRY METHOD 12/16/2024 1:55 PM [facility] CO2 28 21 - 32 mmol/L LAB CHEMISTRY METHOD 12/16/2024 1:55 PM [facility] Anion Gap 5 3 - 11 LAB CHEMISTRY METHOD 12/16/2024 1:55 PM [facility] Glucose 88 70 - 100 mg/dL LAB CHEMISTRY METHOD 12/16/2024 1:55 PM [facility] BUN 25 5 - 25 mg/dL LAB CHEMISTRY METHOD 12/16/2024 1:55 PM [facility] Creatinine 1.26(H) 0.50 - 1.10 mg/dL LAB CHEMISTRY METHOD 12/16/2024 1:55 PM [facility] eGFR 41(L) >=60 mL/min/1. 73m2 LAB CHEMISTRY METHOD 12/16/2024 1:55 PM [facility] Comment:Calculation based on the??Chronic Kidney Disease Epidemiology Collaboration (CKD-EPI) equation refit??without adjustment for race. BUN/Creatinine Ratio 19.8 LAB CHEMISTRY METHOD 12/16/2024 1:55 PM [facility] Calcium 9.3 8.5 - 10.5 mg/dL LAB CHEMISTRY METHOD 12/16/2024 1:55 PM [facility] Blood Venous blood specimen / Unknown Venipuncture / Unknown 12/16/2024 7:20 AM EST 12/16/2024 11:32 AM EST us Tony Arreola MD LAB BLOOD ORDERABLES Final Resul t [facility] [address] [place] [address], [place] [phone] * (ABNORMAL) Complete blood count (12/16/2024 7:20 AM EST) [facility] WBC 5.4 4.8 - 10.8 K/mcL LAB HEMETOLOGY METHOD 12/16/2024 12:51 PM [facility] RBC 4.60 3.80 - 4.80 M/mcL LAB HEMETOLOGY METHOD 12/16/2024 12:51 PM EST [facility] Hemoglobin 13.4 11.5 - 16.0 g/dL LAB HEMETOLOGY METHOD 12/16/2024 12:51 PM [facility] Hematocrit 43.8 35.0 - 47.0 % LAB HEMETOLOGY METHOD 12/16/2024 12:51 PM [facility] MCV 95.8 79.0 - 98.0 FL LAB HEMETOLOGY METHOD 12/16/2024 12:51 PM [facility] MCH 29.3 27.0 - 32.0 pcg LAB HEMETOLOGY METHOD 12/16/2024 12:51 PM [facility] MCHC 30.6(L) 32.0 - 37.0 g/dL LAB HEMETOLOGY METHOD 12/16/2024 12:51 PM [facility] RDW 14.9 11.0 - 15.0 % LAB HEMETOLOGY METHOD 12/16/2024 12:51 PM [facility] Platelets 135 130 - 400 K/mcL LAB HEMETOLOGY METHOD 12/16/2024 12:51 PM [facility] MPV 12.3(H) 7.0 - 11.0 FL LAB HEMETOLOGY METHOD 12/16/2024 12:51 PM [facility] NRBC 0.0 <1.0 % LAB HEMETOLOGY METHOD 12/16/2024 12:51 PM [facility] NRBC Absolute 0.00 <0.10 K/mcL LAB HEMETOLOGY METHOD 12/16/2024 12:51 PM EST [facility] Blood Venous blood specimen / Unknown Venipuncture / Unknown 12/16/2024 7:20 AM EST 12/16/2024 11:32 AM EST us Tony Arreola MD LAB BLOOD ORDERABLES Final Resul t [facility] [address] [place] [address], documented in this encounter Visit Diagnoses Diagnosis Weakness Other malaise and fatigue Unspecified dementia, unspecified severity, without behavioral disturbance, psychotic disturbance, mood disturbance, and anxiety (CMS/HCC V24, CMS/HCC V28) documented in this encounter Care Teams Financial Systems Administrator Relationship Specialty Start Date End Date Tony Arreola MD [address] [place] [address], [phone] PCP - General Family Medicine 12/14/24 documented as of this encounter
--- OUTSIDE RECORDS SUMMARY | 2025-03-25 09:56 | XMS_ITS | Encounter Summary ---
Author Organization [facility] Address [address] [place] [address] Care Team Providers Care Automobile Assembly Supervisor Name Role Phone Tony Arreola MD Primary Care Provider [phone] Encounter Details Date Type Department Care Team (Late st Contact Info) Description 12/06/2024 Lab Requisition [facility] - Main Lab [address] [place] [address] Tony Arreola MD 38 [facility] [address] [place], [address] Weakness; Unspecified dementia, unspecified severity, without [...] Associated Diagnosis Comments COMPLETE BLOOD COUNT Routine 12/09/2024 7:13 AM EST Weakness Unspecified dementia, unspecified severity, without behavioral disturbance, psychotic disturbance, mood disturbance, and anxiety (CMS/HCC) BASIC METABOLIC PANEL Routine 12/09/2024 7:13 AM EST Weakness Unspecified dementia, unspecified severity, without behavioral disturbance, psychotic disturbance, mood disturbance, and anxiety (CMS/HCC) documented in this encounter Results * (ABNORMAL) Basic metabolic panel (12/09/2024 7:13 AM EST) Sodium 145 133 - 145 mmol/L LAB CHEMISTRY METHOD 12/09/2024 3:01 PM [facility] Potassium 4.3 3.5 - 5.5 mmol/L LAB CHEMISTRY METHOD 12/09/2024 3:01 PM [facility] Chloride 110 96 - 110 mmol/L LAB CHEMISTRY METHOD 12/09/2024 3:01 PM [facility] CO2 28 21 - 32 mmol/L LAB CHEMISTRY METHOD 12/09/2024 3:01 PM [facility] Anion Gap 7 3 - 11 LAB CHEMISTRY METHOD 12/09/2024 3:01 PM [facility] Glucose 74 70 - 100 mg/dL LAB CHEMISTRY METHOD 12/09/2024 3:01 PM [facility] BUN 20 5 - 25 mg/dL LAB CHEMISTRY METHOD 12/09/2024 3:01 PM [facility] Creatinine 1.21(H) 0.50 - 1.10 mg/dL LAB CHEMISTRY METHOD 12/09/2024 3:01 PM [facility] eGFR 43(L) >=60 mL/min/1. 73m2 LAB CHEMISTRY METHOD 12/09/2024 3:01 PM [facility] Comment:Calculation based on the??Chronic Kidney Disease Epidemiology Collaboration (CKD-EPI) equation refit??without adjustment for race. BUN/Creatinine Ratio 16.5 LAB CHEMISTRY METHOD 12/09/2024 3:01 PM [facility] Calcium 9.4 8.5 - 10.5 mg/dL LAB CHEMISTRY METHOD 12/09/2024 3:01 PM [facility] Blood Venous blood specimen / Unknown Venipuncture / Unknown 12/09/2024 7:13 AM EST 12/09/2024 11:17 AM EST us Tony Arreola MD LAB BLOOD ORDERABLES Final Resul t [facility] [address] [place] [address], * (ABNORMAL) Complete blood count (12/09/2024 7:13 AM EST) [facility] WBC 6.9 4.8 - 10.8 K/mcL LAB HEMETOLOGY METHOD 12/09/2024 12:37 PM [facility] RBC 4.60 3.80 - 4.80 M/mcL LAB HEMETOLOGY METHOD 12/09/2024 12:37 PM [facility] Hemoglobin 13.3 11.5 - 16.0 g/dL LAB HEMETOLOGY METHOD 12/09/2024 12:37 PM [facility] Hematocrit 43.5 35.0 - 47.0 % LAB HEMETOLOGY METHOD 12/09/2024 12:37 PM [facility] MCV 94.8 79.0 - 98.0 FL LAB HEMETOLOGY METHOD 12/09/2024 12:37 PM [facility] MCH 29.0 27.0 - 32.0 pcg LAB HEMETOLOGY METHOD 12/09/2024 12:37 PM [facility] MCHC 30.6(L) 32.0 - 37.0 g/dL LAB HEMETOLOGY METHOD 12/09/2024 12:37 PM [facility] RDW 14.6 11.0 - 15.0 % LAB HEMETOLOGY METHOD 12/09/2024 12:37 PM [facility] Platelets 160 130 - 400 K/mcL LAB HEMETOLOGY METHOD 12/09/2024 12:37 PM [facility] MPV 12.2(H) 7.0 - 11.0 FL LAB HEMETOLOGY METHOD 12/09/2024 12:37 PM [facility] NRBC 0.0 <1.0 % LAB HEMETOLOGY METHOD 12/09/2024 12:37 PM [facility] NRBC Absolute 0.00 <0.10 K/mcL LAB HEMETOLOGY METHOD 12/09/2024 12:37 PM EST [facility] Blood Venous blood specimen / Unknown Venipuncture / Unknown 12/09/2024 7:13 AM EST 12/09/2024 11:17 AM EST Tony Arreola MD LAB BLOOD ORDERABLES Final Resul t [facility] [address] [place] [address], documented in this encounter Visit Diagnoses Diagnosis Weakness Other malaise and fatigue Unspecified dementia, unspecified severity, without behavioral disturbance, psychotic disturbance, mood disturbance, and anxiety (CMS/HCC V24, CMS/HCC V28) documented in this encounter Care Teams Automobile Assembly Supervisor Relationship Specialty Start Date End Date Tony Arreola MD [address] [place] [address], [phone] PCP - General Family Medicine 12/14/24 documented as of this encounter
--- OUTSIDE RECORDS SUMMARY | 2025-03-25 09:56 | XMS_ITS | Clinical Summary ---
Author Organization 299 [facility] Address [address] [place] [address] Phone Care Team Providers Care Butadiene Converter Utility Operator Name Role Phone Tony Arreola MD Primary Care Provider [phone] Encounters Date Type Department Care Team Description 02/24/2025 Lab Requisition [facility] Lab [address] [place] [address] Venus Mayberry MD Essential (primary) hypertension; Type 2 diabetes mellitus without complications ([facility] V24, [facility] V28) 12/28/2024 Lab Requisition [facility] Lab [address] [place] [address] Tony Arreola MD Weakness; Unspecified dementia, unspecified severity, without behavioral disturbance, psychotic disturbance, mood disturbance, and anxiety ([facility] V24, [facility] V28) from Last 3 Months Social History Tobacco Use Types Packs/Day Years Used Date Smoking Tobacco: Never Assessed Comments Unknown Sex and Gender Information Value Date Recorded Sex Assigned at Not on file Legal Sex Female 4:33 AM EST Gender Identity Not on file Sexual Orientation Not on file Plan of Treatment Health Maintenance Due Date Last Done Comments Diabetes: Annual Foot Exam 1945 Diabetes: Annual Retina Eye Exam 1945 Hepatitis A Vaccines (1 of 2 - Risk 2-dose series) 1955 Hepatitis B Vaccines (1 of 3 - Risk 3-dose series) 1996 RSV Immunization Adult Patients (1 - 1-dose 75+ series) 2011 Zoster Vaccines (2 of 3) 02/22/2022 022, 09/22/2021, 02/23/2015 COVID-19 Vaccine ( season) 2024 01/22/2024, 10/03/2022 Cholesterol Screening (Lipid Panel) 12/04/2024 Depression Screening 12/04/2024 05/08/2023 Falls Risk Assessment 12/04/2024 Medicare Annual Wellness Visit 12/04/2024 Osteoporosis Screening (Bone Density Screening) 12/04/2024 Social Influencers of Health Screening 12/04/2024 Influenza Vaccine (Season Ended) 2025 09/11/2023, 10/03/2022, 09/22/2021, Additional history exists Diabetes: Blood Sugar Control Test (HGBA1C) 08/26/2025 02/24/2025, 09/11/2023 Hypertension/CHF/CAD Annual BMP Blood Test 02/24/2026 02/24/2025, 12/23/2024, 12/16/2024, Additional history exists DTaP,Tdap,and Td Vaccines (3 - Td or Tdap) 12/29/2032 12/29/2022, 12/10/2012 Pneumococcal Vaccine: 50+ Years Completed 02/23/2015, 10/04/2001 HIB Vaccines Aged Out No longer eligi ble based on patient's age to complete this topic HPV Vaccines Aged Out No longer eligi ble based on patient's age to complete this topic IPV Vaccines Aged Out No longer eligi ble based on patient's age to complete this topic MMR Vaccines Aged Out No longer eligi ble based on patient's age to complete this topic Meningococcal ACWY Vaccine Aged Out N o longer eligible based on patient's age to complete this topic Meningococcal B Vaccine Aged Out No l onger eligible based on patient's age to complete this topic RSV Immunization Patients Under 20 months Aged Out No longer eligible based on patient's age to complete this topic Varicella Vaccines Aged Out No longer eligible based on patient's age to complete this topic Procedures Procedure Name Priority Date/Time Associated Diagnosis Comments VITAMIN B12 Routine 02/24/2025 6:34 AM EDT Essential (primary) hypertension Type 2 diabetes mellitus without complications FOLATE Routine 02/24/2025 6:34 AM EDT Essential (primary) hypertension Type 2 diabetes mellitus without complications VITAMIN D 25 HYDROXY Routine 02/24/2025 6:34 [...] hypertension Type 2 diabetes mellitus without complications from Last 3 Months Results * (ABNORMAL) Vitamin D 25 hydroxy (02/24/2025 6:34 AM EDT) Vit D, 25-Hydroxy 29.9(L) 30.0 - 80.0 ng/mL LAB CHEMISTRY METHOD 02/24/2025 1:12 PM EDT [facility] Blood Venous blood specimen / Unknown Venipuncture / Unknown 02/24/2025 6:34 AM EDT 02/24/2025 10:44 AM EDT us Venus Mayberry MD LAB BLOOD ORDERABLES Final Resul t [facility] [address] [place] [address], * (ABNORMAL) Complete blood count (02/24/2025 6:34 AM EDT) WBC 6.0 4.8 - 10.8 K/[facility] LAB HEMETOLOGY METHOD 02/24/2025 1:12 PM EDT [facility] RBC 4.80 3.80 - 4.80 M/mcL LAB HEMETOLOGY METHOD 02/24/2025 1:12 PM EDT [facility] Hemoglobin 14.3 11.5 - 16.0 g/dL LAB HEMETOLOGY METHOD 02/24/2025 1:12 PM EDT [facility] Hematocrit 45.6 35.0 - 47.0 % LAB HEMETOLOGY METHOD 02/24/2025 1:12 PM EDT [facility] MCV 94.2 79.0 - 98.0 FL LAB HEMETOLOGY METHOD 02/24/2025 1:12 PM EDT [facility] MCH 29.5 27.0 - 32.0 pcg LAB HEMETOLOGY METHOD 02/24/2025 1:12 PM EDT [facility] MCHC 31.4(L) 32.0 - 37.0 g/dL LAB HEMETOLOGY METHOD 02/24[facility]25 [facility] RDW 14.7 11.0 - 15.0 % LAB HEMETOLOGY METHOD 02/24/2025 1:12 PM EDT [facility] Platelets 154 130 - 400 K/mcL LAB HEMETOLOGY METHOD 02/24/2025 1:12 PM EDT [facility] MPV 11.7(H) 7.0 - 11.0 FL LAB HEMETOLOGY METHOD 02/24/2025 1:12 PM [facility] NRBC 0.0 <1.0 % LAB HEMETOLOGY METHOD 02/24/2025 1:12 PM T [facility] NRBC Absolute 0.00 <0.10 K/mcL LAB HEMETOLOGY METHOD 02/24/2025 1:12 PM [facility] Blood Venous blood specimen / Unknown Venipuncture / Unknown 02/24/2025 6:34 AM EDT 02/24/2025 10:44 AM EDT Venus Mayberry MD LAB BLOOD ORDERABLES Final Resul t [facility] [address] [place] [address], * Thyroid stimulating hormone (02/24/2025 6:34 AM EDT) TSH 1.44 0.40 - 4.00 mcIU/mL LAB CHEMISTRY METHOD 02/24/2025 1:13 PM EDT [facility] Blood Venous blood specimen / Unknown Venipuncture / Unknown 02/24/2025 6:34 AM EDT 02/24/2025 10:44 AM EDT us Venus Mayberry MD LAB BLOOD ORDERABLES Final Resul t Performing Organization Address [facility]/ZIP Co de Phone Number [facility] [address] [place] [address], * Hemoglobin A1c (02/24/2025 6:34 AM EDT) Pathologist [facility] Hemoglobin A1C 5.9 <6.5 % LAB CHEMISTRY METHOD 02/24/2025 9:29 PM EDT [facility] Mean Bld Glu Estim. 123 mg/dL LAB CHEMISTRY METHOD 02/24/2025 9:29 PM EDT [facility] Blood Venous blood specimen / Unknown Venipuncture / Unknown 02/24/2025 6:34 AM EDT 02/24/2025 10:44 AM EDT us Venus Mayberry MD LAB BLOOD ORDERABLES Final Resul t Performing Organization Address City/[facility]/ZIP Co de Phone Number [facility] [address] [place] [address], [place] [phone] * Folate (02/24/2025 6:34 AM EDT) Folate 11.3 2.8 - 17.0 ng/ml LAB CHEMISTRY METHOD 02/24/2025 12:24 PM EDT [facility] Blood Venous blood specimen / Unknown Venipuncture / Unknown 02/24/2025 6:34 AM EDT 02/24/2025 10:44 AM EDT us Venus Mayberry MD LAB BLOOD ORDERABLES Final Resul t [facility] [address] [place] [address], [place] [phone] * Vitamin B12 (02/24/2025 6:34 AM EDT) Pathologist [facility] Vitamin B-12 324 250 - 900 pcg/mL LAB CHEMISTRY METHOD 02/24/2025 12:24 PM EDT [facility] Blood Venous blood specimen / Unknown Venipuncture / Unknown 02/24/2025 6:34 AM EDT 02/24/2025 10:44 AM EDT us Venus Mayberry MD LAB BLOOD ORDERABLES Final Resul t Performing Organization Address City/[facility]/ZIP Co de Phone Number [facility] [address] [place] [address], [place] [phone] * (ABNORMAL) Comprehensive metabolic panel (02/24/2025 6:34 AM EDT) Pathologist [facility] Sodium 142 133 - 145 mmol/L LAB CHEMISTRY METHOD 02/24/2025 12:24 PM EDT [facility] Potassium 4.1 3.5 - 5.5 mmol/L LAB CHEMISTRY METHOD 02/24/2025 12:24 PM EDT [facility] Chloride 108 96 - 110 mmol/L LAB CHEMISTRY METHOD 02/24/2025 12:24 PM EDT [facility] CO2 28 21 - 32 mmol/L LAB CHEMISTRY METHOD 02/24/2025 12:24 PM EDT [facility] Anion Gap 6 3 - 11 LAB CHEMISTRY METHOD 02/24/2025 12:24 PM [facility] Glucose 91 70 - 100 mg/dL LAB CHEMISTRY METHOD 02/24/2025 12:24 PM [facility] BUN 30(H) 5 - 25 mg/dL LAB CHEMISTRY METHOD 02/24/2025 12:24 PM [facility] Creatinine 1.02 0.50 - 1.10 mg/dL LAB CHEMISTRY METHOD 02/24/2025 12:24 PM [facility] eGFR 53(L) >=60 mL/min/1. 73m2 LAB CHEMISTRY METHOD 02/24/2025 12:24 PM [facility] Comment:Calculation based on the??Chronic Kidney Disease Epidemiology Collaboration (CKD-EPI) equation refit??without adjustment for race. BUN/Creatinine Ratio 29.4 LAB CHEMISTRY METHOD 02/24/2025 12:24 PM [facility] Calcium 10.5 8.5 - 10.5 mg/dL LAB CHEMISTRY METHOD 02/24/2025 12:24 PM [facility] AST (SGOT) 31 10 - 42 unit/L LAB CHEMISTRY METHOD 02/24/2025 12:24 PM [facility] ALT (SGPT) 36 10 - 60 unit/L LAB CHEMISTRY METHOD 02/24/2025 12:24 PM [facility] Alkaline Phosphatase 82 42 - 121 unit/L LAB CHEMISTRY METHOD 02/24/2025 12:24 PM [facility] Total Protein 6.8 6.0 - 8.0 g/dL LAB CHEMISTRY METHOD 02/24/2025 12:24 PM [facility] Albumin 3.1(L) 3.2 - 5.0 g/dL LAB CHEMISTRY METHOD 02/24/2025 12:24 PM [facility] Total Bilirubin 0.4 0.0 - 1.4 mg/dL LAB CHEMISTRY METHOD 02/24/2025 12:24 PM EDT [facility] Blood Venous blood specimen / Unknown Venipuncture / Unknown 02/24/2025 6:34 AM EDT 02/24/2025 10:44 AM EDT us Venus Mayberry MD LAB BLOOD ORDERABLES Final Resul t [facility] [address] [place] [address], from Last 3 Months Insurance [facility] Member Subscriber Plan / Payer (Ef fective 2019-Present) Name:Sienna Mendez Relation to Subscriber:Self Name:Sienna Mendez Payer ID:[id number] Group ID:[id number] Type:Not on file Address: [facility] [place] [phone] Care Teams Butadiene Converter Utility Operator Relationship Specialty Start Date End Date Tony Arreola MD [address] [place] [address] [address] [place], [phone] PCP - General Family Medicine 12/14/24
--- OUTSIDE RECORDS SUMMARY | 2025-03-25 09:56 | XMS_ITS | Encounter Summary ---
Author Organization [facility] Address [address] [place] [address] Care Team Providers Care Composition Siding Worker Name Role Phone Tony Arreola MD Primary Care Provider [phone] Encounter Details Date Type Department Care Team (Late st Contact Info) Description 12/28/2024 Lab Requisition [facility] - Main Lab [address] [facility] [place] [address] Tony Arreola MD [address] [facility] [address] [place], [address] Weakness; Unspecified dementia, unspecified severity, without [...] documented as of this encounter Visit Diagnoses Diagnosis Weakness Other malaise and fatigue Unspecified dementia, unspecified severity, without behavioral disturbance, psychotic disturbance, mood disturbance, and anxiety (CMS/HCC V24, CMS/HCC V28) documented in this encounter Care Teams Composition Siding Worker Relationship Specialty Start Date End Date Tony Arreola MD 38 [facility] [address] [place], [address] PCP - General Family Medicine 12/14/24 documented as of this encounter
[2025-03-25 10:04] VITALS: BP 149/64; PULSE 72; RESP 16; O2SAT 98
[2025-03-25 11:53] VITALS: BP 119/50; PULSE 86; RESP 16; TEMP 36.2; O2SAT 94
[2025-03-25 12:28] VITALS: BP 119/50; PULSE 86; RESP 16; TEMP 36.2; O2SAT 94
--- NOTE | 2025-03-25 12:29 | PC.NURSE ---
Pt cleared for d/c back to [facility]. Call placed to facility and spoke with FACUNDO Leahy. RN to RN report completed. Tosin given opportunity for questions and all questions answered to satisfaction. Pt awaiting EMS transport.
--- NOTE | 2025-03-25 14:14 | PC.NURSE ---
[facility] arrives to transport Pt. RN report given and all questions answered to satisfaction. Care of Pt relinquished to [facility].
== END 2025-03-25 14:43 | disposition skilled nursing facility (03) ==
PROVIDERS: Emergency Provider Emergency Medicine; PCP Family Medicine Geriatric Medicine
DX: S00.211A Abrasion of right eyelid and periocular area, initial encounter (principal); S09.90XA Unspecified injury of head, initial encounter; W19.XXXA Unspecified fall, initial encounter; Y93.9 Activity, unspecified; Y92.9 Unspecified place or not applicable; Y99.9 Unspecified external cause status; M25.551 Pain in right hip
CPT/HCPCS: 70450; 72125; 73502; 99284

== ENCOUNTER → 2025-03-25 09:01 | Outpatient (BNV) | payer OTHER, SELFPAY | PROVIDERS: PCP Family Medicine Geriatric Medicine; Visit Provider Radiology Diagnostic Radiology | DX: S09.90XA Unspecified injury of head, initial encounter (principal); M25.551 Pain in right hip; W19.XXXA Unspecified fall, initial encounter | CPT/HCPCS: 70450; 72125; 73502 ==

== ENCOUNTER 2025-08-06 09:46 | Emergency (ER) | payer OTHER, SELFPAY ==
[2025-08-06] VITALS (10 sets, daily range): BP systolic 101–164; BP diastolic 50–78; PULSE 63–87; RESP 10–18; TEMP 36.2–36.8; O2SAT 92–98; BMI 31.4
--- NOTE | ~2025-08-06 | XR_ITS ---
CLINICAL HISTORY: post reduction 2 view right wrist Comparison: CR - XR WRIST RT MIN 3V - 08/06/25 20:24 EDT Findings: Overlying cast obscures bony detail. Mildly improved alignment of distal radius fracture, now in near anatomic alignment. No focal soft tissue abnormality. IMPRESSION: 1. Interval placement of overlying cast with distal radius fracture in near anatomic alignment. This document has been electronically signed by: Marilee Ortiz MD on 08/07/2025 00:48:05
--- NOTE | ~2025-08-06 | XR_ITS ---
CLINICAL HISTORY: trauma,pain 4 view right wrist Comparison: None provided Findings: Bones are demineralized. There is mildly displaced fracture of the distal radius with intra-articular extension. Ulna appears intact. Scaphoid appears unremarkable. IMPRESSION: 1. Intra-articular fracture of the distal radius. This document has been electronically signed by: Marilee Ortiz MD on 08/06/2025 21:08:38
--- NOTE | ~2025-08-06 | CT_ITS ---
CLINICAL HISTORY: fall CT head without contrast Comparison: CT/SR - CT HEAD/BRAIN WO IV CON - 03/25/25 09:19 EDT Findings: BRAIN: No acute infarct, hemorrhage, or mass effect. Scattered periventricular/deep white matter hypodensities, nonspecific, however may represent chronic microvascular ischemic disease. CSF SPACES: No hydrocephalus or effacement of basal cisterns. SKULL: No calvarial fracture. SINUSES: No significant mucosal thickening or effusion on limited views. ORBITS: Bilateral lens replacements. OTHER: Negative. IMPRESSION: 1. No acute intracranial findings. This document has been electronically signed by: Marilee Ortiz MD on 08/06/2025 21:01:15
--- NOTE | ~2025-08-06 | CT_ITS ---
CLINICAL HISTORY: fall CT cervical spine without contrast Comparison: CT/SR - CT CERVICAL SPINE WO IV CON - 03/25/25 09:19 EDT Findings: Normal vertebral body alignment. Multilevel degenerative endplate changes of the cervical spine. High-grade spinal stenosis. No acute fractures or dislocations. Severe degenerative changes of the left temporomandibular joint. No acute findings on limited view of the intracranial contents. No cervical fluid collections or masses. Scarring at the lung apices. IMPRESSION: No acute traumatic abnormality in the cervical spine. This document has been electronically signed by: Marilee Ortiz MD on 08/06/2025 20:50:27
--- NOTE | ~2025-08-06 | XR_ITS ---
CLINICAL HISTORY: trauma,pain 4 view right hand Comparison: None provided Findings: Intra-articular fracture of the distal radius. Bones are demineralized. Mild degenerative changes of the interphalangeal joints. IMPRESSION: 1. Intra-articular fracture of the distal radius. This document has been electronically signed by: Marilee Ortiz MD on 08/06/2025 21:09:13
--- NOTE | ~2025-08-06 | CT_ITS ---
EXAMINATION: CT ABDOMEN AND PELVIS WITHOUT CONTRAST CLINICAL INFORMATION: Back pain COMPARISON: February 18, 2025 TECHNIQUE: Multidetector volumetric imaging was performed from the superior aspect of the liver through the pubic symphysis. Sagittal and coronal reformatted images were obtained on the technologist's workstation. This CT examination was performed using dose optimization techniques as appropriate, variously including the following: *Automated exposure control *Adjustment of mA and/or kV according to patient size (this includes techniques or standardized protocols for targeted exams where dose is matched to indication/reason for exam; i.e. extremities or head) *Use of iterative reconstruction technique DLP: 594 mGY*cm FINDINGS: LUNG BASES: There is a 3 x 6 mm solid pulmonary nodule in the posterior basal right lower lobe contacting pleura. It is stable since at least July 10, 2024 LIVER, GALLBLADDER, AND BILIARY TREE: The liver is normal in size, shape, and attenuation. No focal hepatic lesion or biliary ductal dilatation is present. Gallbladder surgically absent. There are clips in the gallbladder fossa. There is no biliary duct dilation. PANCREAS: Unremarkable. SPLEEN: Unremarkable. ADRENAL GLANDS: Unremarkable. KIDNEYS AND URETERS: Exophytic bilateral simple renal cysts are again noted. There are no stones. There is mild renal cortical thinning. BLADDER: Unremarkable. GASTROINTESTINAL TRACT: Innumerable large pseudodiverticula are present in the descending and sigmoid colon. There is no bowel wall thickening or fat stranding. There is a large sliding hiatal hernia involving the gastric fundus and a portion of the stomach body. It appears stable. The appendix is not clearly identified but there is a small outpouching along the medial margin of the cecum. ABDOMINAL WALL: No significant hernia is appreciated. LYMPH NODES: Normal. VASCULAR: Multifocal vascular calcifications are present PELVIC VISCERA: Unremarkable. OSSEOUS STRUCTURES: Mild degenerative changes are present in the lower thoracic spine and facets of the lower lumbar spine. Acetabular roof osteophytes are also present CT/CT abdomen pelvis wo IV con IMPRESSION: There is a large sliding hiatal hernia involving the upper half of the stomach. Diverticulosis without acute inflammation. Degenerative changes in the spine and hip joints. 3 x 6 mm right lower lobe solid pulmonary nodule is stable for one year and requires no further follow-up by Fleischner Society recommendation. Electronically signed by: Schuyler Saenz MD 08/06/2025 02:40 PM EDT RP
--- NOTE | ~2025-08-06 | CT_ITS ---
CLINICAL HISTORY: fall CT chest without contrast Comparison: None provided Findings: Examination is limited by motion artifact. NECK BASE: Limited views of the thyroid are unremarkable. LUNGS/PLEURA: No focal consolidation. Scattered subcentimeter micro nodules, for example measuring 3 mm in the right upper lobe. There are some areas of mosaic attenuation in the right upper lobe which may represent air trapping. PULM VASCULAR: Poorly evaluated without IV contrast. MEDIASTINUM: No masses or lymphadenopathy. CARDIAC: No pericardial effusion. No cardiomegaly. Mild coronary artery calcification. AORTA: No aneurysm. CHEST WALL: No masses or axillary lymphadenopathy. LIMITED ABDOMEN: See concurrent CT abdomen pelvis. BONES: No acute fracture. IMPRESSION: 1. No acute traumatic abnormality in the chest. Incidental findings above. This document has been electronically signed by: Marilee Ortiz MD on 08/06/2025 21:16:33
--- NOTE | ~2025-08-06 | XR_ITS ---
EXAMINATION: XR CHEST CLINICAL INFORMATION: chest pain COMPARISON: February 18, 2025 x-ray and CT on December 01, 2021 TECHNIQUE: Frontal view of the chest was obtained. FINDINGS: Trachea and upper mediastinum intermediate right of midline, chronic and mildly increased. There is a moderately large dome-shaped mass projecting in the retrocardiac region consistent with a large hiatal hernia. Lungs demonstrate coarse markings are grossly clear. XR/XR chest 1V IMPRESSION: No acute disease. Large hiatal hernia. Deviation of the trachea and upper mediastinum, right of midline, appears slightly increased. Electronically signed by: Schuyler Saenz MD 08/06/2025 12:25 PM EDT RP
--- NOTE | ~2025-08-06 | CT_ITS ---
CLINICAL HISTORY: fall CT abdomen and pelvis without contrast Comparison: CT/UT/SR - CT ABDOMEN PELVIS WO IV CON - 08/06/25 13:19 EDT Findings: LIMITED CHEST: Bronchiectasis and scarring at the lung bases. LIVER: No focal liver lesion. BILIARY: Cholecystectomy. PANCREAS: No mass or ductal dilatation. SPLEEN: No splenomegaly. KIDNEYS: No hydronephrosis or radiopaque stone. Bilateral renal cysts. ADRENALS: No nodule. VASCULAR: No aneurysm. RETROPERITONEUM: No lymphadenopathy or mass. BOWEL/MESENTERY: Large hiatal hernia. Colonic diverticulosis. ABDOMINAL WALL: No mass or significant abnormality. URINARY BLADDER: No focal wall thickening. PELVIC NODES: No pelvic lymphadenopathy. PELVIC ORGANS: Normal for age. BONES: No acute fracture. OTHER: Negative. IMPRESSION: 1. No acute traumatic abnormality. 2. Colonic diverticulosis without CT evidence of acute diverticulitis. 3. Large hiatal hernia, not significantly changed compared to prior exams. This document has been electronically signed by: Marilee Ortiz MD on 08/06/2025 20:59:07
--- NOTE | 2025-08-06 11:07 | ED.GENADULT ---
HPI - General Adult General Chief complaint: General Medical Stated complaint: LOW BACK PAIN, BLE WEAK,?UTI PER EMS Time Seen by Provider: 08/06/25 11:00 Source: EMS History of Present Illness HPI narrative: This is 89 years old female patient with a history of dementia, history of CVA, aortic stenosis, cirrhosis sent by the family because weakness in the legs. The patient has a history of dementia she is unable to give any history at this time family is not available at bedside. Onset (ago): day(s) (1) Radiation: non-radiation Severity: moderate Quality: burning Relieving factors: none Exacerbating factors: none Related Data Home Medications ?Medication ?Instructions ?Recorded ?Confirmed ascorbic acid (vitamin C) 500 mg 500 mg PO BID 11/27/21 08/07/25 tablet (Vitamin C) calcium 600 mg (as 1 tab PO BID 11/27/21 08/07/25 carbonate)-vitamin D3 5 mcg (200 unit) tablet (Calcium 600 + D(3)) ferrous sulfate 325 mg (65 mg 1 tab PO Q OTHER DAY 11/27/21 08/07/25 iron) tablet,delayed release mirtazapine 15 mg tablet 1 tab PO BEDTIME 11/27/21 08/07/25 amlodipine 5 mg tablet 5 mg PO DAILY 01/23/23 08/07/25 aspirin 81 mg tablet,delayed 81 mg PO DAILY 01/23/23 08/07/25 release cetirizine 5 mg tablet 5 mg PO DAILY 01/23/23 08/07/25 donepezil 10 mg tablet 10 mg PO DAILY 01/23/23 08/07/25 fluoxetine 40 mg capsule 40 mg PO BEDTIME 01/23/23 08/07/25 lisinopril 20 mg tablet 20 mg PO DAILY 01/23/23 08/07/25 memantine 10 mg tablet 10 mg PO BID 01/23/23 08/07/25 montelukast 10 mg tablet 10 mg PO BEDTIME 01/23/23 08/07/25 omeprazole 40 mg capsule,delayed 40 mg PO DAILY@0630 01/23/23 08/07/25 release docusate sodium 100 mg capsule 100 mg PO BID 05/24/23 08/07/25 atorvastatin 20 mg tablet 20 mg PO DAILY 07/27/23 08/07/25 mirabegron 50 mg tablet,extended 50 mg PO DAILY 07/10/24 08/07/25 release 24 hr (Myrbetriq) haloperidol lactate 2 mg/mL oral 1 mg PO BEDTIME 11/21/24 08/07/25 concentrate trazodone 50 mg tablet 50 mg PO BEDTIME 11/21/24 08/07/25 Previous Rx's ?Medication ?Instructions ?Recorded sulfamethoxazole 800 1 tab PO BID 5 days #10 tabs 08/06/25 mg-trimethoprim 160 mg tablet (Bactrim DS) walker #1 ea 08/13/25 Allergies Allergy/AdvReac Type Severity Reaction Status Date / Time ceftazidime (Ceftazidime) Allergy Mild UNKNOWN Verified 08/13/25 08:54 benzocaine (Benzocaine) Allergy Unknown UNKNOWN Verified 08/13/25 08:54 butamben (From Cetacaine) Allergy Unknown UNKNOWN Verified 08/13/25 08:54 metoclopramide (From Reglan) Allergy Unknown UNKNOWN Verified 08/13/25 08:54 morphine (Morphine) Allergy Unknown SWELLING Verified 08/13/25 08:54 tetracaine (From Cetacaine) Allergy Unknown UNKNOWN Verified 08/13/25 08:54 Review of Systems Review of Systems: Yes Unobtainable due to mental condition (dementia) [facility] Past Medical History Attestation statement: The following information was validated with the patient. Medical History (Updated 08/13/25 @ 08:50 by Santos Aparicio) Sepsis Cirrhosis of liver DONAVAN (obstructive sleep apnea) Diabetes Allergic dermatitis Hives CVA (cerebral vascular accident) Non-alcoholic micronodular cirrhosis of liver CKD (chronic kidney disease) Dementia Hypertension Surgical History Hx of cholecystectomy No pertinent past surgical history Family History Family History Father No problems noted. Mother No problems noted. Social History Social History Household Members: Unknown / Unable to assess Housing: Unknown / Unable to assess Do you presently have visiting nurse or other home services: No Alcohol intake: current Alcohol intake frequency: does not drink Patient Tobacco Use Status: Former Tobacco user Second Hand Smoke Exposure: No Advance Directives Date on File: 12/07/21 service: No Physical Exam ED Exam Exam: No acute distress comfortable in the stretcher in stable vital signs Vital Signs: Vital Signs - 24 hr 08/07/25 10:33 08/07/25 14:14 08/07/25 18:52 Temperature 99.4 F 100.0 F 99.9 F Pulse Rate 77 83 93 Respiratory Rate 12 14 16 Blood Pressure 155/71 H 132/63 138/71 Pulse Oximetry 93 92 93 Oxygen Delivery Method Room Air Room Air Room Air Oxygen Flow Rate 08/07/25 21:26 08/07/25 23:22 08/07/25 23:30 Temperature 101.6 F H 98.3 F 100.9 F H Pulse Rate 96 85 Respiratory Rate 14 16 Blood Pressure 134/72 137/70 Pulse Oximetry 96 96 Oxygen Delivery Method Room Air Room Air Oxygen Flow Rate 08/08/25 00:05 08/08/25 01:05 08/08/25 03:34 Temperature 100.8 F H 99.9 F 99.5 F Pulse Rate 82 Respiratory Rate 18 Blood Pressure 141/72 H Pulse Oximetry 89 L Oxygen Delivery Method Room Air Oxygen Flow Rate 08/08/25 03:35 08/08/25 06:00 08/08/25 07:24 Temperature 99.5 F 99.7 F Pulse Rate 84 87 Respiratory Rate 14 12 Blood Pressure 128/71 145/73 H Pulse Oximetry 94 92 96 Oxygen Delivery Method Nasal Cannula Nasal Cannula Room Air Oxygen Flow Rate 2 2 BMI result Body Mass Index 31.4 Const General: cooperative Nutritional Appearance: well nourished [facility] Head: Yes normal to inspection Ears: hearing grossly normal bilaterally General nose exam: Normal external nose present Face and sinus: Yes normal facial exam Neck Neck: Yes normal visual inspection and Yes full ROM Chest Chest palpation & inspection: normal inspection of the chest Resp Effort & Inspection: normal respiratory effort Auscultation: clear to auscultation bilaterally Cardio Jugular venous distension: no JVD Rate: regular rate Rhythm: regular rhythm GI Inspection: Yes normal to inspection Percussion: Yes normal to percussion Skin General skin exam: no rashes or lesions noted Lesions: no lesions Rashes: no rashes Neuro Other: No focal deficit Course Reevaluation(s) Reevaluation #1: Patient remained stable workup completed the looks like she has a urinary tract infection she has a an allergy to cephalosporin, we will prescribe Bactrim she grew in the past E coli which was sensitive to Bactrim. I discussed the case with the granddaughter who is the [employer] she is here to crop picker the grandmother Time: 15:27 Reevaluation #2: Granddaughter is here now stating that the grandmother can not go home she lives in second floor and shes is weak will get pt and lining caser consult Time: 15:28 Reevaluation #3: Apparently, the patient has suffered an unwitnessed fall while in overflow. Staff reported the patient is in the commode and then ended up on the ground. The patient reports that she was in the bed and tried to get to the commode at ended up on the ground. A rapid response was called, a CT scan of the brain, cervical spine an abdominal pelvis was ordered by the hospitalist provider who evaluated her 1st. The patient was brought back to the emergency department in room 14. When I examined her she did have some bruising and edema to the right hand and wrist, x-rays were ordered. She appears at her mental baseline. It was also brought to my attention with the patient's code status was entered other focal with the patient has an active most form with DNR/DNI and her last several visits she was NSAID has a DNR/DNI. This was changed to reflect the patient's wishes. Time: 20:17 Additional Reevaluation(s): 11:41 PM 08/06/2025 (Michela URIBE): The patient is wrist x-ray shows a but minimally displaced and angulated distal radius fracture. Plan to use finger traps to realign the bones appropriately. A 0.25% Marcaine hematoma block was performed 927 pm on July of the, the patient just developed a fever, giving Tylenol, she has a known urinary tract infection that she has been treated for. 08/08 JOJO McKristabbPatient will be discharged to [facility] therefore physician observation ended. Medications Administered Discontinued Medications Generic Name Dose Route Start Last Admin Trade Name Freq PRN Reason Stop Dose Admin Acetaminophen 975 mg 08/07/25 21:27 08/07/25 21:46 Acetaminophen 325 Mg Tablet PO 08/07/25 21:28 975 mg ONCE ONE Administration Amlodipine Besylate 5 mg 08/08/25 09:00 08/08/25 09:07 Amlodipine Besylate 5 Mg Tablet PO 5 mg DAILY ONEIL Administration Protocol Ascorbic Acid 500 mg 08/08/25 09:00 08/08/25 09:07 Ascorbic Acid 500 Mg Tablet PO 500 mg BID ONEIL Administration Aspirin 81 mg 08/08/25 09:00 08/08/25 09:08 Aspirin Enteric Coated 81 Mg Tablet. PO 81 mg DAILY ONEIL Administration Atorvastatin Calcium 20 mg 08/08/25 09:00 08/08/25 09:08 Atorvastatin Calcium 20 Mg Tablet PO 20 mg DAILY ONEIL Administration Bupivacaine HCl 10 ml 08/06/25 23:05 08/06/25 23:36 Bupivacaine Mpf 0.25 % 10 Ml Vial INFILTRATI 08/06/25 23:06 10 ml ONCE ONE Administration Calcium Carbonate/Cholecalciferol 500 mg 08/08/25 09:15 08/08/25 09:56 Calcium + Vitamin D 250 Mg Tablet PO 500 mg BID ONEIL Administration Docusate Sodium 100 mg 08/08/25 09:00 08/08/25 09:08 Docusate Sodium 100 Mg Capsule PO 100 mg BID ONEIL Administration Donepezil HCl 10 mg 08/08/25 09:00 08/08/25 09:29 Donepezil Hcl 10 Mg Tablet PO 10 mg DAILY ONEIL Administration Ferrous Sulfate 324 mg 08/08/25 09:15 08/08/25 09:56 Ferrous Sulfate 324 Mg Tablet. PO 324 mg Q48H ONEIL Administration Sodium Chloride 1,000 mls @ 999 mls/hr 08/06/25 11:15 08/06/25 12:17 Ns IVCONT 08/06/25 12:15 Infused .Q1H1M ONEIL Infusion Sodium Chloride 1,000 mls @ 200 mls/hr 08/06/25 12:15 08/06/25 19:52 Sodium Chloride 0.45 % IVCONT Not Given .Q5H ONEIL Lisinopril 20 mg 08/08/25 09:00 08/08/25 09:07 Lisinopril 20 Mg Tablet PO 20 mg DAILY ONEIL Administration Protocol Loratadine 10 mg 08/08/25 09:15 08/08/25 09:56 Loratadine 10 Mg Tablet PO 10 mg DAILY ONEIL Administration Memantine 10 mg 08/08/25 09:00 08/08/25 09:29 Memantine Hcl 10 Mg Tablet PO 10 mg BID ONEIL Administration Mirabegron 50 mg 08/08/25 09:00 08/08/25 09:56 Mirabegron 50 Mg Tab.Er.24h PO 50 mg DAILY ONEIL Administration Trimethoprim/Sulfamethoxazole 1 tab 08/06/25 14:38 08/06/25 15:25 Sulfamethox/Trimeth 800/160 Tablet PO 08/06/25 14:39 1 tab ONCE ONE Administration Trimethoprim/Sulfamethoxazole 1 tab 08/06/25 21:00 08/08/25 09:29 Sulfamethox/Trimeth 800/160 Tablet PO 08/10/25 21:01 1 tab BID ONEIL Administration Procedures Orthopedic Fracture Reduction Fracture #1: Time Out Performed: Yes Side: right Fracture Reduction Location: radius Analgesia: hematoma block Technique: direct manipulation and finger traps Post Reduction X-rays Demonstrate: anatomical reduction Post-reduction neuro exam: intact Post-reduction vascular exam: intact Splint Applied: Yes Patient Tolerated Procedure: well Medical Decision Making Medical Decision Making MDM Narrative: Patient is here because of weakness we will check labs UA Differential Diagnosis Differential Diagnoses: The differential diagnosis associated with the presentation includes Urinary tract infection/electrolytes and normality Admission/Observation Consideration of admission/observation: Escalation of care including admission/observation considered Lab Data 08/06/25 11:22 08/06/25 11:22 Labs: Lab Results 08/06/25 08/06/25 08/06/25 Range/Units 11:22 12:57 19:40 WBC 5.7 (4.8-10.8) X10*3/uL RBC 4.73 (4.20-5.50) X10*6/uL Hgb 13.8 (12.0-16.0) g/dl Hct 41.9 (37.0-47.0) % MCV 88.6 (80.0-98.0) fL MCH 29.2 (27.0-33.0) pg MCHC 32.9 (31.0-35.0) g/dl RDW 15.4 (11.0-16.0) % Plt Count 116 L (160-400) X10*3/uL MPV 11.7 (9.4-12.3) fL Immature Gran % (Auto) 0.4 (0.0-0.4) % Neut % (Auto) 71.9 (45-73) % Lymph % (Auto) 15.6 L (20-40) % Allen % (Auto) 6.8 (2-11) % Eos % (Auto) 4.9 H (0-4) % Baso % (Auto) 0.4 (0-2) % Lymph # (Auto) 0.9 L (1.2-4.9) X10*3/uL Allen # (Auto) 0.4 (0.1-1.2) X10*3/uL Eos # (Auto) 0.3 (0.0-0.4) X10*3/uL Baso # (Auto) 0.0 (0.0-0.2) X10*3/uL Abs Immat Gran (auto) 0.02 (0.00-0.03) X10*3/uL Absolute Neuts (auto) 4.1 (2.0-8.3) x10*3/uL Absolute Nucleated RBC 0.000 (0.0-0.012) X10*3/uL Nucleated RBC % (auto) 0.0 (0.0-0.2) /100WBC Smear Tech's Comments VERIFIED Sodium 146 H (135-145) mmol/L Potassium 4.5 (3.3-5.1) mmol/L Chloride 112 H (96-108) mmol/L Carbon Dioxide 27 (22-29) mmol/L Anion Gap 12 (12-20) BUN 25 H (9-16) mg/dL Creatinine 1.24 (0.5-1.4) mg/dL Estim Creat Clear Calc 32.0 Estimated GFR 41 POC Glucose 146 H (60-115) mg/dL Random Glucose 100 (60-115) mg/dL Calcium 9.9 (8.4-10.2) mg/dL Total Bilirubin 0.2 (0.0-1.0) mg/dL AST 59 H (5-31) U/L ALT 20 (0-31) U/L Alkaline Phosphatase 95 (39-117) U/L Troponin I High Sens 12.6 D (<3.5-17.0) ng/L Total Protein 7.3 (6.5-8.0) g/dL Albumin 3.8 (3.5-5.0) g/dL Urine Color Yellow Urine Appearance Cloudy Urine pH 5.5 (5.0-9.0) Ur Specific [place] 1.025 (1.005-1.025) Urine Protein Negative (Neg-Trace) mg/dL Urine Glucose (UA) Negative (Negative) mg/dL Urine Ketones Negative (Negative) mg/dL Urine Blood Negative (Negative) Urine Nitrite Positive H (Negative) Ur Leukocyte Esterase Small (1+) H (Negative) Urine RBC 0-2 (0-2) /HPF Urine WBC 11-20 H (0-5) /HPF Ur Squamous Epith Cells 11-20 (0-2) /HPF Urine Bacteria 4+ (None Seen) Hyaline Casts 3-5 (0-2) /LPF Influenza Type A (PCR) (Negative) Influenza Type B (PCR) (Negative) RSV RNA Qual (PCR) (Negative) SARS-CoV-2 RNA (RT-PCR) (Negative) 08/07/25 08/07/25 08/07/25 Range/Units 06:26 08:48 12:20 WBC (4.8-10.8) X10*3/uL RBC (4.20-5.50) X10*6/uL Hgb (12.0-16.0) g/dl Hct (37.0-47.0) % MCV (80.0-98.0) fL MCH (27.0-33.0) pg MCHC (31.0-35.0) g/dl RDW (11.0-16.0) % Plt Count (160-400) X10*3/uL MPV (9.4-12.3) fL Immature Gran % (Auto) (0.0-0.4) % Neut % (Auto) (45-73) % Lymph % (Auto) (20-40) % Allen % (Auto) (2-11) % Eos % (Auto) (0-4) % Baso % (Auto) (0-2) % Lymph # (Auto) (1.2-4.9) X10*3/uL Allen # (Auto) (0.1-1.2) X10*3/uL Eos # (Auto) (0.0-0.4) X10*3/uL Baso # (Auto) (0.0-0.2) X10*3/uL Abs Immat Gran (auto) (0.00-0.03) X10*3/uL Absolute Neuts (auto) (2.0-8.3) x10*3/uL Absolute Nucleated RBC (0.0-0.012) X10*3/uL Nucleated RBC % (auto) (0.0-0.2) /100WBC Smear Tech's Comments Sodium (135-145) mmol/L Potassium (3.3-5.1) mmol/L Chloride (96-108) mmol/L Carbon Dioxide (22-29) mmol/L Anion Gap (12-20) BUN (9-16) mg/dL Creatinine (0.5-1.4) mg/dL Estim Creat Clear Calc Estimated GFR POC Glucose 113 90 (60-115) mg/dL Random Glucose (60-115) mg/dL Calcium (8.4-10.2) mg/dL Total Bilirubin (0.0-1.0) mg/dL AST (5-31) U/L ALT (0-31) U/L Alkaline Phosphatase (39-117) U/L Troponin I High Sens (<3.5-17.0) ng/L Total Protein (6.5-8.0) g/dL Albumin (3.5-5.0) g/dL Urine Color Urine Appearance Urine pH (5.0-9.0) Ur Specific [place] (1.005-1.025) Urine Protein (Neg-Trace) mg/dL Urine Glucose (UA) (Negative) mg/dL Urine Ketones (Negative) mg/dL Urine Blood (Negative) Urine Nitrite (Negative) Ur Leukocyte Esterase (Negative) Urine RBC (0-2) /HPF Urine WBC (0-5) /HPF Ur Squamous Epith Cells (0-2) /HPF Urine Bacteria (None Seen) Hyaline Casts (0-2) /LPF Influenza Type A (PCR) NEGATIVE (Negative) Influenza Type B (PCR) NEGATIVE (Negative) RSV RNA Qual (PCR) NEGATIVE (Negative) SARS-CoV-2 RNA (RT-PCR) NEGATIVE (Negative) Discharge Plan Discharge Clinical Impression: Acute UTI, Weakness, Closed fracture of right wrist, E-coli UTI, Noncompliance with CPAP treatment, DONAVAN on CPAP Patient Disposition: Xfer Inpatient Rehab Fac Transfer Details: TO: [facility] Instructions: Acute Urinary Retention in Women (ED) Additional Instructions: Take your medications as prescribed. If you were prescribed antibiotics today, it is important that you take your medication to their entirety, do not skip any doses, do not finish them early. Follow-up with your primary care provider this week. Return to the emergency department with new or worsening symptoms. Such as fevers, chills, chest pain, shortness of breath, nausea, vomiting, dizziness, headache, vision changes, lethargy In case of emergency call 911 Prescriptions: New sulfamethoxazole-trimethoprim [Bactrim DS] 800-160 mg tablet 1 tab PO BID 5 Days Qty: 10 0RF No Action calcium carbonate-vitamin D3 [Calcium 600 + D(3)] 600 mg-5 mcg (200 unit) tablet 1 tab PO BID ascorbic acid (vitamin C) [Vitamin C] 500 mg tablet 500 mg PO BID mirtazapine 15 mg tablet 1 tab PO BEDTIME ferrous sulfate 325 mg (65 mg iron) tablet,delayed release (DR/EC) 1 tab PO Q OTHER DAY fluoxetine 40 mg capsule 40 mg PO BEDTIME donepezil 10 mg tablet 10 mg PO DAILY memantine 10 mg tablet 10 mg PO BID montelukast 10 mg tablet 10 mg PO BEDTIME lisinopril 20 mg tablet 20 mg PO DAILY amlodipine 5 mg tablet 5 mg PO DAILY aspirin 81 mg tablet,delayed release (DR/EC) 81 mg PO DAILY cetirizine 5 mg tablet 5 mg PO DAILY omeprazole 40 mg capsule,delayed release(DR/EC) 40 mg PO DAILY@0630 mirabegron [Myrbetriq] 50 mg tablet extended release 24 hr 50 mg PO DAILY trazodone 50 mg tablet 50 mg PO BEDTIME haloperidol lactate 2 mg/mL concentrate 1 mg PO BEDTIME docusate sodium 100 mg capsule 100 mg PO BID atorvastatin 20 mg tablet 20 mg PO DAILY (DME) walker [facility] See Rx Instructions .MEDSUPPLY Qty: 1 0RF Rx Instructions: Forearm bearing walker Referrals: [facility] [Provider Group] Referral Note: radius fracture right [facility] [Outside] Myah Singh MD [Primary Care Provider, Internal Medicine] Interventions: ED Discharge Assessment Last Done: 08/08/25 10:52 Discharge Date/Time: 08/08/25 10:54 Print Language: Cymro
[2025-08-06 11:35] LABS: Hematocrit 41.9 % (37.0-47.0); Hemoglobin 13.8 g/dl (12.0-16.0); Imm Gran Abs Auto 0.02 X10*3/uL (0.00-0.03); Imm Gran Pct Auto 0.4 % (0.0-0.4); Lymphocytes Absolute Auto 0.9 X10*3/uL (1.2-4.9); MANUAL DIFF FLAG SCAN; Mean Corpuscular HGB Conc 32.9 g/dl (31.0-35.0); Mean Corpuscular Hemoglobin 29.2 pg (27.0-33.0); Mean Corpuscular Volume 88.6 fL (80.0-98.0); NRBC Abs Auto 0.000 X10*3/uL (0.0-0.012); NRBC Pct Auto 0.0 /100WBC (0.0-0.2); PLT CLUMP 1; Red Blood Count 4.73 X10*6/uL (4.20-5.50); SCAN SMEAR FLAG 1
[2025-08-06 11:47] LABS: Alanine Aminotransferase 20 U/L (0-31); Albumin Level 3.8 g/dL (3.5-5.0); Alkaline Phosphatase 95 U/L (39-117); Anion Gap 12 (12-20); Aspartate Amino Transferase 59 U/L (5-31); Blood Urea Nitrogen 25 mg/dL (9-16); Calcium 9.9 mg/dL (8.4-10.2); Carbon Dioxide 27 mmol/L (22-29); Chloride 112 mmol/L (96-108); Creatinine Clr Calc Pharmacy 32.0; Estimated Glomerular Filt Rate 41; Potassium 4.5 mmol/L (3.3-5.1); Sodium 146 mmol/L (135-145); Total Protein 7.3 g/dL (6.5-8.0)
[2025-08-06 11:50] LABS: Troponin-I High Sensitivity 12.6 ng/L (<3.5-17.0)
--- NOTE | 2025-08-06 11:50 | PC.NURSE ---
89 F presents to ED feeling tired, increased SOB. Pt sts chronic cough and some SOB at baseline, sts has gotten worse weeks ago. A+Ox1 to self, confused about location and where she is. Pt normally ambulates with a walker, lives at home with son.
[2025-08-06 12:15] LABS: White Blood Count 5.7 X10*3/uL (4.8-10.8)
[2025-08-06 12:16] LABS: Platelet Count 116 X10*3/uL (160-400)
--- OUTSIDE RECORDS SUMMARY | 2025-08-06 12:51 | XMS_ITS | Patient Health Record ---
Author Organization [facility] Address [address] [place] [address] Care Team Providers Care Sound Technician Name Role Phone Samantha GARCIA, Myah Primary Care Provider Cali Bailey [phone] Allergies Allergen (clinical drug ingredient) Drug/Non Drug Allergy documented on EMR Reaction Allergy Type Onset Date Status morphine Morphine Sulfate Unknown Drug Allergy Active benzocaine / butamben / tetracaine Cetacaine Unknown Drug Allergy Active Reason For Referral No Information Medications Medication SIG (Take, Route, Frequency, Duration) Notes Start Date End Date Status Amlodipine & Diet Manage Prod Active Oyst-Izaiah Active Aspir-81 Active VESIcare Active Fluoxetine & Diet Manage Prod Active Norvasc Active oxyBUTYnin Active lipitor Active MiraLax 1 1 capful in 8 ounces of water Orally QD-BID for 30 days 08/30/2013 Active Lisinopril 20 MG 1 tablet Orally Once a day for 90 days 09/15/2015 Active Omeprazole 40 MG 1 capsule Orally Onc e a day for 30 Active traZODone HCl Active Enalapril Maleate Ac tive Problems Problem Type SNOMED Code ICD Code Onset Dates Problem Status W/U Status Risk Notes Problem 737275150 Gastroesophageal reflux disease without esophagitis (K21.9) Active confirmed Problem 031461555 Elevated liver enzymes (R74.8) Active confirmed Problem 24993067 Constipation, unspecified constipation type (K59.00) Active confirmed Plan Of Treatment Pending Test Test Name Order Date LIVER PROFILE 04/06/2016 Insurance Providers Payer Name Payer Address Payer Phone Subscriber Number Group Number Insured Name Patient Relationship to Insured Coverage Start Date Coverage End Date [facility] [address] [place] [address] [id number] ZITA PAPPAS Self - patient is the insured MEDICARE OF [facility] [address] [address] [id number] ZITA PAPPAS Self - patient is the insured Medical (General) History Medical History History ICD Code GERD--UPPER ENDOSCOPY & COLO NOSCOPY IN 2007--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
--- OUTSIDE RECORDS SUMMARY | 2025-08-06 12:51 | XMS_ITS | Clinical Summary ---
Author Organization [employer] Address [address] [place] [address] Care Team Providers Care Marketing Sales Consultant Name Role Phone Myah Singh MD Primary Care Provider [phone] Allergies Active Allergy Reactions Criticality Noted Date Comments Benzocaine 06/25/2014 Butamben 06/25/2014 Ceftazidime 01/03/2018 Metoclopramide 01/03/2018 Morphine Other reaction(s): unspecified Tetracaine 06/25/2014 Medications Ventolin HFA 108 (90 Base) MCG/ACT inhaler INHALE 2 PUFFS EVERY 6 HOURS NEEDED FOR SHORTNESS OF BREATH OR WHEEZING 09/16/20 Active Blood Glucose Monitoring Suppl (FreeStyle Lite) w/Device kit TEST 1 TIMES BY INTRADERMAL ROUTE EVERY MORNING AND NEEDED 09/21/20 Active donepezil (Aricept) 10 MG tablet TAKE 1 TABLET BY MOUTH EVERY DAY AFTER MEALS 11/08/20 Active famotidine (Pepcid) 40 MG tablet Take 40 mg by mouth in the morning. 09/15/20 Active FLUoxetine (PROzac) 40 MG capsule Take 40 mg by mouth in the morning. 09/12/20 Active furosemide (Lasix) 20 MG tablet 11/07/20 Active hydrocortisone 1 % lotion 09/06/20 Active memantine (Namenda) 10 MG tablet Take 10 mg by mouth 2 times daily. 11/07/20 Active Myrbetriq 50 MG 24 hr tablet 10/21/20 Active mirtazapine (Remeron) 15 MG tablet Take 15 mg by mouth at bedtime. 06/23/20 Active traZODone (Desyrel) 50 MG tablet 11/14/20 22 Active fluticasone (Flonase) 50 MCG/ACT nasal spray INSTILL 1 SPRAY INTO EACH NOSTRIL EVERY MORNING 16 g 1 12/18/19 24 Active omeprazole (PriLOSEC) [address] capsuleIndicati ons:Gastroesoph ageal reflux disease, unspecified whether esophagitis present TAKE 1 CAPSULE (40MG) BY ORAL ROUTE EVERY DAY BEFORE A MEAL 30 capsule 11 01/06/20 25 Active atorvastatin (Lipitor) 20 MG tabletIndicatio ns:Dyslipidemia TAKE 1 TABLET BY MOUTH AT BEDTIME 30 tablet 10 01/07/20 25 Active ferrous sulfate 325 (65 Fe) MG EC tablet TAKE 1 TABLET BY ORAL ROUTE EVERY OTHER DAY 90 tablet 3 01/14/20 25 Active erythromycin (Romycin) 5 MG/GM ophthalmic ointment Apply to both eyes at bedtime. Apply Amount per Dose: 0.5 inch (~1 cm) per dose. 3.5 g 01/17/20 25 Active Ketotifen Fumarate 0.035 % solution Administer 1 drop into affected eye(s) 2 times daily. 10 mL 1 01/17/20 25 Active docusate sodium (Colace) 100 MG capsule TAKE 1 TABLET BY ORAL ROUTE 2 TIMES EVERY DAY 60 capsule 9 03/11/20 25 Active haloperidol (Haldol) 2 MG/ML solution Take 1 mg by mouth Once per day. 12/10/19 22 Active Alcohol Swabs (Ultra-Care Alcohol Prep Pads) 70 % pads USE DIRECTED TO CLEAN ARE PRIOR TO FINGER STICK 100 each 4 04/02/20 25 Active Calcium + Vitamin D3 600-5 MG-MCG tablet TAKE 1 TABLET BY MOUTH 2 TIMES DAILY. 60 tablet 04/08/20 25 Active Ascorbic Acid (vitamin C) 500 MG tablet TAKE 1 BY ORAL ROUTE 2 TIMES EVERY DAY 60 tablet 11 04/08/20 25 Active Lancets (Safety Lancet 30G/Pressure Act) miscIndications :Type 2 diabetes mellitus with other specified complication, without long-term current use of insulin ([facility]) INJECT 1 BY INTO MACHINE ROUTE EVERY DAY 100 each 10 04/29/20 25 Active cetirizine (ZyrTEC) 5 MG tablet TAKE 1 TABLET (5 MG) BY MOUTH IN THE MORNING. 30 tablet 2 05/06/20 25 Active lisinopril 20 MG tabletIndicatio ns:Primary hypertension TAKE 1 TABLET (20 MG) BY MOUTH ONCE PER DAY. 90 tablet 1 05/29/20 25 Active amLODIPine (Norvasc) 5 MG tablet TAKE 1 TABLET BY MOUTH EVERY DAY 30 tablet 3 07/22/20 25 Active montelukast (Singulair) 10 MG tabletIndicatio ns:Allergic rhinitis, unspecified seasonality, unspecified trigger TAKE 1 TABLET BY ORAL ROUTE EVERY DAY IN THE EVENING 30 tablet 3 07/22/20 25 Active aspirin (Aspirin Low Dose) 81 MG EC tablet TAKE 1 TABLET BY MOUTH IN THE MORNING. 30 tablet 3 07/22/20 25 Active FREESTYLE LITE test stripIndication s:Type 2 diabetes mellitus with stage 3 chronic kidney disease, without long-term current use of insulin, unspecified whether stage 3a or 3b CKD (CMS/HCC) TEST BLOOD SUGAR DAILY AND NEEDED 100 each 10 08/05/20 25 Active glucose blood (FREESTYLE LITE) test stripIndication s:Type 2 diabetes mellitus with stage 3 chronic kidney disease, without long-term current use of insulin, unspecified whether stage 3a or 3b CKD (CMS/HCC) TEST BLOOD SUGAR DAILY AND NEEDED 100 each 07/23/20 24 2024 Discontinued amLODIPine (Norvasc) 5 MG tablet TAKE 1 TABLET BY MOUTH EVERY DAY 30 tablet 3 08/13/20 24 2024 Discontinued montelukast (Singulair) 10 MG tabletIndicatio ns:Allergic rhinitis, unspecified seasonality, unspecified trigger TAKE 1 TABLET BY ORAL ROUTE EVERY DAY IN THE EVENING 90 tablet 09/03/20 24 2024 Discontinued Aspirin Low Dose 81 MG EC tablet TAKE 1 TABLET (81 MG) BY MOUTH IN THE MORNING. 30 tablet 3 10/10/20 24 2024 Discontinued(R eorder (will not trigger notification to Pharmacy)) Active Problems Problem Noted Date Diagnosed Date Conjunctivitis of both eyes 01/14/2025 Assessment & Plan (01/14/2025 10:00 AM EST): - Pt had dry eyes. Possible allergic reaction. Pt had also been scratching her eyes. - Advised to avoid irritation. Pt will try different eye drops - Recommended to contact optimologists for treatment options History of CVA (cerebrovascular accident) 2022 Assessment & Plan (01/17/2025 6:10 AM EST): -around 2009 previous medical record -TIA in 2014 -Continue working on secondary prevention / risk factor management Assessment & Plan (02/04/2024 1:13 PM EDT): -around 2009 previous medical record -TIA in 2014 -Continue working on secondary prevention / risk factor management Assessment & Plan (09/10/2023 4:33 PM EDT): -around 2009 previous medical record -TIA in 2014 -Continue working on secondary prevention / risk factor management Assessment & Plan (01/07/2023 4:35 PM EST): -around 2009 previous medical record -TIA in 2014 -Continue working on secondary prevention / risk factor management History of non-ST elevation myocardial infarctio n (NSTEMI) 01/07/2023 Assessment & Plan (09/10/2023 4:34 PM EDT): -Oct 2015 -[place] [facility] appt -Continue risk factor mangement Assessment & Plan (01/07/2023 4:34 PM EST): -Oct 2015 -Previously [place] [facility] [place] app[place] -Continue risk factor mangement Obesity 01/07/2023 Assessment & Plan (01/17/2025 6:09 AM EST): - DONAVAN, HTN, NAFLD, DM2 - Continue working on lifestyle modifications Assessment & Plan (01/07/2023 4:47 PM EST): - DONAVAN, HTN, NAFLD, DM2 - Continue working on lifestyle modifications Alzheimer disease 01/07/2023 Assessment & Plan (01/14/2025 10:01 AM EST): -Neurologist: Dr. Estevez -Evaluated with EEG slow wave in 2014 and normal in 2016 -Head CT showed atrophy of brain and microvascular disease -Continue donepezil -Continue memantine Assessment & Plan (02/04/2024 1:07 PM EDT): -Neurologist: Dr. Estevez -Evaluated with EEG slow wave in 2014 and normal in 2015 -Head CT showed atrophy of brain and microvascular disease -Continue donepezil -Continue memantine Assessment & Plan (09/10/2023 4:30 PM EDT): -Neurologist: Dr. Estevez -Evaluated with EEG slow wave in 2014 and normal in 2016 -Head CT showed atrophy of brain and microvascular disease -Continue donepezil -Continue memantine Assessment & Plan (05/08/2023 11:08 AM EDT): -Neurologist: Dr. Estevez -Evaluated with EEG slow wave in 2014 and normal in 2015 -Head CT showed atrophy of brain and microvascular disease -Continue donepezil -Continue memantine Assessment & Plan (01/07/2023 5:09 PM EST): -Neurologist: Dr. Estevez -Evaluated with EEG slow wave in 2014 and normal in 2015 -Head CT showed atrophy of brain and microvascular disease -Continue donepezil -Continue memantine Mixed stress and urge urinary incontinence 01/07 Assessment & Plan (01/14/2025 10:03 AM EST): - Pt has OAB, DM2, and dementia - She is on diuretics and SGLT-2 inhibitor. - Followed by urologist, last seen in Nov 2023 - Continue mirabegron - Continue using briefs. Assessment & Plan (02/04/2024 1:09 PM EDT): - Pt has OAB, DM2, and dementia - She is on diuretics and SGLT-2 inhibitor. - Followed by urologist, last seen in Nov 2023 - Continue mirabegron - Continue using briefs. Assessment & Plan (09/10/2023 4:32 PM EDT): - Pt has OAB, DM2, and dementia - Continue using briefs. Assessment & Plan (05/08/2023 11:08 AM EDT): - Pt has OAB, DM2, and dementia - Continue using briefs. Assessment & Plan (01/07/2023 5:13 PM EST): - Pt has OAB, DM2, and dementia - Continue using briefs. Aortic stenosis 01/07/2023 Assessment & Plan (01/17/2025 6:02 AM EST): -Pt has loud murmur consistent with aortic stenosis -NSTEMI in 2014 -Most recent TTE on 07/10/23 showed LVEF 55-60%, mild LVH, mildly dilated LA, and moderate aortic stenosis -mildly calcified aortic valve, the peak aortic gradient 31 mmHg; the mean gradient 14 mmHg; the aortic valve area 1.15 cm2. Mild aortic valve regurgitation. 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 [facility] [place], since she is not a candidate for invasive procedure, plan is to continue medical management and follow up in 1 year -Use ACEI and CCB with caution. Assessment & Plan (02/04/2024 1:08 PM EDT): -Pt has loud murmur consistent with aortic stenosis -NSTEMI in 2014 -Most recent TTE on 07/10/23 showed LVEF 55-60%, mild LVH, mildly dilated LA, and moderate aortic stenosis -mildly calcified aortic valve, the peak aortic gradient 31 mmHg; the mean gradient 14 mmHg; the aortic valve area 1.15 cm2. Mild aortic valve regurgitation. 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 Garcia [place] [facility] [place], since she is not a candidate for invasive procedure, plan is to continue medical management and follow up in 1 year Assessment & Plan (09/10/2023 4:57 PM EDT): -Pt has loud murmur consistent with aortic stenosis -NSTEMI in 2014 -Most recent TTE on 07/10/23 showed LVEF 55-60%, mild LVH, mildly dilated LA, and moderate aortic stenosis -mildly calcified aortic valve, the peak aortic gradient 31 mmHg; the mean gradient 14 mmHg; the aortic valve area 1.15 cm2. Mild aortic valve regurgitation. 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 Garcia [place] [facility] [place], since she is not a candidate for invasive procedure, plan is to continue medical management and follow up in 1 year Assessment & Plan (05/08/2023 11:08 AM EDT): - Most recent TTE 10/14/22: There is mild calcification of the aortic valve. There is moderate aortic valve stenosis. The peak aortic gradient is 33 mmHg.The mean gradient is 16 mmHg. There is mild aortic valve regurgitation. -Pt has loud murmur consistent with aortic stenosis -NSTEMI in 2014 -Pt has an upcoming appt with her property insurance claims examiner Assessment & Plan (01/07/2023 5:17 PM EST): - Most recent TTE 10/14/22: There is mild calcification of the aortic valve. There is moderate aortic valve stenosis. The peak aortic gradient is 33 mmHg.The mean gradient is 16 mmHg. There is mild aortic valve regurgitation. -Pt has loud murmur consistent with aortic stenosis -NSTEMI in 2014 -Pt has an upcoming appt with her property insurance claims examiner Anemia 01/07/2023 Assessment & Plan (01/07/2023 5:24 PM EST): - anemia of chronic disease (CKD, cirrhosis) - continue ferrous sulfate - check lab Diabetes mellitus, type 2 12/28/2022 Overview (04/07/2025): Frequent utis from jardiance Assessment & Plan (05/06/2025 11:29 AM EDT): Blood sugars are in range (90-110)without jardance, pt grandaughter and STATISTICAL ENGINEER deny any swelling, sob, orthopnea edema or elevated bps. Pt does not like glucose finger sticks, so reasonable to reduce them to once weekly considering excellent glucose control at this time, Monitor for any fluid overload, monitor renal function Assessment & Plan (04/07/2025 1:41 PM EDT): Stop jardiance due to frequent UTIs requiring rehab Gdauighter estimates 5 utis in last year Monitor sugars three times weekly Call for sugars above 200 Schedule telephone visit in 3 weeks to determine if t2dm oral medications are needed Consider alternatives to jardiance for hyperglycemia Assessment & Plan (01/14/2025 10:03 AM EST): - Dx 2021 - Hgb A1C 6.2% on 09/11/23, 6.0% on 12/28/22 - Continue working on lifestyle modifications - Continue checking glucose: Freestyle Lite gluocemeter - Microalbumin test: difficulty giving urine due to OAB - Lipid profile: 12/29/22 TC 103; TG 89; HDL 43; LDL 43 - Diabetic eye exam: - Foot exam: 05/08/23 Assessment & Plan (02/04/2024 1:13 PM EDT): - Dx 2021 - Hgb A1C 6.2% on 09/11/23, 6.0% on 12/28/22 - Continue working on lifestyle modifications - Continue checking glucose: Freestyle Lite gluocemeter - Microalbumin test: difficulty giving urine due to OAB - Lipid profile: 12/29/22 TC 103; TG 89; HDL 43; LDL 43 - Diabetic eye exam: - Foot exam: 05/08/23 Assessment & Plan (09/12/2023 1:55 PM EDT): - Dx 2021 - Hgb A1C 6.2% on 09/11/23, 6.0% on 12/28/22 - Continue working on lifestyle modifications - Continue checking glucose: Freestyle Lite gluocemeter - Microalbumin test: difficulty giving urine due to OAB - Lipid profile: 12/29/22 TC 103; TG 89; HDL 43; LDL 43 - Diabetic eye exam: - Foot exam: 05/08/23 Assessment & Plan (05/08/2023 11:07 AM EDT): - Dx 2021 - Hgb A1C 6.0% on 12/28/22 - Continue working on lifestyle modifications - Continue checking glucose: Freestyle Lite gluocemeter - Microalbumin test: - Lipid profile: 12/29/22 TC 103; TG 89; HDL 43; LDL 43 - Diabetic eye exam: - Foot exam: 05/08/23 Assessment & Plan (01/07/2023 5:06 PM EST): - Dx 2021 - Hgb A1C 6.0% on 12/28/22 - Continue working on lifestyle modifications - Continue checking glucose: Freestyle Lite gluocemeter - Microalbumin test: - Lipid profile: - Diabetic eye exam: - Foot exam: Asthma 09/27/2017 Assessment & Plan (01/07/2023 5:24 PM EST): -Continue montelukast -Continue albuterol HFA prn Dyslipidemia 09/27/2017 Assessment & Plan (01/17/2025 6:10 AM EST): -Last Lipid Profile: 12/29/22 TC 108; TG 89; HDL 43; LDL 43 -Continue atorvastatin 20 mg at bedtime -Continue working on lifestyle modifications -Monitor LFT as pt has cirrhosis Assessment & Plan (09/10/2023 4:34 PM EDT): -Last Lipid Profile: 12/29/22 TC 108; TG 89; HDL 43; LDL 43 -Continue atorvastatin 20 mg at bedtime -Continue working on lifestyle modifications -Monitor LFT as pt has cirrhosis Assessment & Plan (05/15/2023 6:18 PM EDT): -Last Lipid Profile: 12/29/22 TC 108; TG 89; HDL 43; LDL 43 -Continue atorvastatin 20 mg at bedtime -Continue working on lifestyle modifications -Monitor LFT as pt has cirrhosis Assessment & Plan (01/07/2023 5:04 PM EST): -Last Lipid Profile: 12/28/21 TC 120'; TG 93; HDL 47; LDL -Continue atorvastatin 20 mg at bedtime -Continue working on lifestyle modifications -Monitor LFT as pt has cirrhosis Cirrhosis of liver 08/08/2016 Assessment & Plan (01/17/2025 6:07 AM EST): -previously eavluated by Dr. Ld KING. Last seen in 2015. Impression was due to fatty liver disease. Follow up prn. -Most recent US: 10/25/22 Heterogeneous liver parenchyma with a nodular contour suggesting cirrhosis; Nonobstructive 2.7 cm calculus in the upper pole of the right kidney; Simple left renal cysts for which no imaging follow-up is recommended. -Most recent abd imaging was CT in Jun 2024 which showed chronic liver disease / cirrhosis. -Avoid hepatotoxic drugs. -Work on weight management Assessment & Plan (02/04/2024 1:08 PM EDT): -previously eavluated by Dr. Ld KING. Last seen in 2015. Impression was due to fatty liver disease. Follow up prn. -Most recent US: 10/25/22 Heterogeneous liver parenchyma with a nodular contour suggesting cirrhosis; Nonobstructive 2.7 cm calculus in the upper pole of the right kidney; Simple left renal cysts for which no imaging follow-up is recommended. -Avoid hepatotoxic drugs. -Work on weight management Assessment & Plan (09/10/2023 4:32 PM EDT): -previously eavluated by Dr. Ld KING. Last seen in 2015. Impression was due to fatty liver disease. Follow up prn. -Most recent US: 10/25/22 Heterogeneous liver parenchyma with a nodular contour suggesting cirrhosis; Nonobstructive 2.7 cm calculus in the upper pole of the right kidney; Simple left renal cysts for which no imaging follow-up is recommended. -Avoid hepatotoxic drugs. -Work on weight management Assessment & Plan (05/08/2023 11:02 AM EDT): -previously eavluated by Dr. Ld KING. Last seen in 2015. Impression was due to fatty liver disease. Follow up prn. -Most recent US: 10/25/22 Heterogeneous liver parenchyma with a nodular contour suggesting cirrhosis; Nonobstructive 2.7 cm calculus in the upper pole of the right kidney; Simple left renal cysts for which no imaging follow-up is recommended. -Check lab today -Avoid hepatotoxic drugs. -Work on weight management Assessment & Plan (01/07/2023 4:46 PM EST): -previously eavluated by Dr. Ld KING. Last seen in 2015. Impression was due [...] weight management Obstructive sleep apnea syndrome 08/08/2016 Assessment & Plan (01/17/2025 5:56 AM EST): -[place] [facility] [place], last seen in January 2024. -05/19/16 Sleep study; Nasal mask of medium size with pressure 7 cm H2O was recommended. -07/03/23 Sleep study showed severe DONAVAN. Recommended CPAP with pressure 10 cm H2O -Recommended to improve adherence and follow up with sleep medicine clinic Assessment & Plan (02/04/2024 1:07 PM EDT): -05/19/16 Sleep study; Nasal mask of medium size with pressure 7 cm H2O was recommended. -Evaluated by sleep medicine clinic provider in April 2023 and scheduled for in- lab sleep study -07/03/23 Sleep study showed severe DONAVAN. Recommended CPAP with pressure 10 cm H2O -Recommended to follow up with sleep medicine clinic Assessment & Plan (09/12/2023 1:52 PM EDT): -05/19/16 Sleep study; Nasal mask of medium size with pressure 7 cm H2O was recommended. -Evaluated by sleep medicine clinic provider in April 2023 and scheduled for in- lab sleep study -07/03/23 Sleep study showed severe DONAVAN. Recommended CPAP with pressure 10 cm H2O -Recommended to follow up with sleep medicine clinic Assessment & Plan (05/08/2023 11:03 AM EDT): -05/19/16 Sleep study -Nasal mask of medium size with pressure 7 cm H2O was recommended. -Pt is feeling uncomfortable with current mask -Ordered a home sleep study in Sep 2022, will check its status -Advised to keep using CPAP Assessment & Plan (01/07/2023 4:56 PM EST): -05/19/16 Sleep study -Nasal mask of medium size with pressure 7 cm H2O was recommended. 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 Thrombocytopenia 03/27/2013 Assessment & Plan (01/17/2025 6:10 AM EST): - in a setting of cirrhosis, compensated - monitor periodically Osteopenia 01/07/2013 Anxiety 12/10/2012 Dementia 12/10/2012 Assessment & Plan (01/17/2025 5:58 AM EST): -multifactorial: Alzeheimer's; Hx CVA and TIA; hx COVID; depression / anxiety -following with Dr. Estevez, neurologist, last seen in Dec 2021, and psychiatrist Dr. Diaz -continue current medications prescribed by both neurologist and psychiatrist -it seems like patient was seeing psychiatrist while staying in the group home -work on risk factor management -reviewed safety -continue providing adequate home care support Assessment & Plan (02/04/2024 1:07 PM EDT): -multifactorial: Alzeheimer's; Hx CVA and TIA; hx COVID; depression / anxiety -following with Dr. Estevez, neurologist, last seen in Dec 2021, and psychiatrist Dr. Diaz -continue current medications prescribed by both neurologist and psychiatrist -work on risk factor management -reviewed safety -continue providing adequate home care support Assessment & Plan (09/10/2023 4:30 PM EDT): -multifactorial: Alzeheimer's; Hx CVA and TIA; hx COVID; depression / anxiety -following with Dr. Estevez, neurologist, last seen in Dec 2021, and psychiatrist Dr. Diaz -continue current medications prescribed by both neurologist and psychiatrist -work on risk factor management -reviewed safety -continue providing adequate home care support Assessment & Plan (05/08/2023 11:03 AM EDT): -multifactorial: Alzeheimer's; Hx CVA and TIA; hx COVID; depression / anxiety -following with Dr. Estevez, neurologist, last seen in Dec 2021, and psychiatrist Dr. Diaz -continue current medications prescribed by both neurologist and psychiatrist -work on risk factor management -safety -continue providing adequate home care support Assessment & Plan (01/07/2023 5:12 PM EST): -multifactorial: Alzeheimer's; Hx CVA and TIA; hx COVID; depression / anxiety -following with Dr. Estevez, neurologist, last seen in Dec 2021, and psychiatrist Dr. Diaz -continue current medications prescribed by both neurologist and psychiatrist -work on risk factor management -safety -continue providing adequate home care support Depressive disorder 12/10/2012 Assessment & Plan (01/07/2023 5:06 PM EST): -psychiatrist: Dr. Diaz -Continue mirtazapine, trazodone, and fluoxetine as prescribed by psychiatrist Gastroesophageal reflux disease 12/10/2012 Assessment & Plan (01/07/2023 5:06 PM EST): - continue famotidine and omeprazole Hypertension 12/10/2012 Assessment & Plan (01/17/2025 6:02 AM EST): -Goal BP < 140/90 per JNC-8 and < 130/80 per ACC/AHA guideline (Treatment threshold >= 130/80 ) -BP at goal -ASCVD Risk: CKD, age, NSTEMI, Hx CVA/TIA, DM2 -Field Interviewer: [place] [facility] [place] a new appt on 01/23/23 (Grade II-III/Vl systolic murmur) -10/14/22 TTE Normal LV function with EF 60-65%, moderate aortic stenosis -Continue working on lifestyle modifications. -Continue lisinopril 20 mg daily. (Caution with ) -Continue amlodipine 5 mg daily. (Caution with ) -Follow up in 3-6 mo, sooner if any problem arises Assessment & Plan (02/04/2024 1:08 PM EDT): -Goal BP < 140/90 per JNC-8 and < 130/80 per ACC/AHA guideline (Treatment threshold >= 130/80 ) -BP at goal -ASCVD Risk: CKD, age, NSTEMI, Hx CVA/TIA, DM2 -Field Interviewer: [place] [facility] [place] a new appt on 01/23/23 (Grade II-III/Vl systolic murmur) -10/14/22 TTE Normal LV function with EF 60-65%, moderate aortic stenosis -Continue working on lifestyle modifications. -Continue lisinopril 20 mg daily. -Continue amlodipine 5 mg daily. -Follow up in 3-6 mo, sooner if any problem arises Assessment & Plan (09/10/2023 4:31 PM EDT): -Goal BP < 140/90 per JNC-8 and < 130/80 per ACC/AHA guideline (Treatment threshold >= 130/80 ) -BP at goal -ASCVD Risk: CKD, age, NSTEMI, Hx CVA/TIA, DM2 -Field Interviewer: [place] [facility] [place] pt has a new appt on 01/23/23 (Grade II-III/Vl systolic murmur) -10/14/22 TTE Normal LV function with EF 60-65%, moderate aortic stenosis -Continue working on lifestyle modifications. -Continue lisinopril 20 mg daily. -Continue amlodipine 5 mg daily. -Follow up in 3-6 mo, sooner if any problem arises Assessment & Plan (05/08/2023 11:03 AM EDT): -Goal BP < 140/90 per JNC-8 and < 130/80 per ACC/AHA guideline (Treatment threshold >= 130/80 ) -BP at goal -ASCVD Risk: CKD, age, NSTEMI, Hx CVA/TIA, DM2 -Field Interviewer: [place] [facility] [place] has a new appt on 01/23/23 (Grade II-III/Vl systolic murmur) -10/14/22 TTE Normal LV function with EF 60-65%, moderate aortic stenosis -Continue working on lifestyle modifications. -Continue lisinopril 20 mg daily. -Continue amlodipine 5 mg daily. -Follow up in 3-6 mo, sooner if any problem arises Assessment & Plan (01/07/2023 5:19 PM EST): -Goal BP < 140/90 per JNC-8 and < 130/80 per ACC/AHA guideline (Treatment threshold >= 130/80 ) -BP at goal -ASCVD Risk: CKD, age, NSTEMI, Hx CVA/TIA, DM2 -Field Interviewer: [place] [facility] [place] a [place]t on 01/23/23 (Grade II-III/Vl systolic murmur) -10/14/22 TTE Normal LV function with EF 60-65%, moderate aortic stenosis -Continue working on lifestyle modifications. -Continue lisinopril 20 mg daily. -Continue amlodipine 5 mg daily. -Follow up in 3-6 mo, sooner if any problem arises Kidney stone 12/10/2012 Assessment & Plan (05/08/2023 11:03 AM EDT): - Urologist: Dr. Vallecillo - Recommended to reschedule appt. - Adequate hydration. Assessment & Plan (01/07/2023 4:48 PM EST): - Urologist: Dr. Vallecillo - Recommended to reschedule appt. - Adequate hydration. Osteoarthritis 12/10/2012 Overactive bladder 12/10/2012 Assessment & Plan (01/14/2025 9:55 AM EST): - in a setting of dementia, DM2, and SGLT-2 inhibitor use - Followed by [facility], last seen in Jun 2024 - Treatment Hx: Tried oxybutynin, which was discontinued due to anticholinergic effect. Gemtesa was prohibitory expensive - Continue mirabegron as prescribed, advised to have drug holiday from mirabegron, resume when pt's symptoms worsen Assessment & Plan (02/04/2024 1:12 PM EDT): - in a setting of dementia, DM2, and SGLT-2 inhibitor use - Followed by [facility], last seen in November 2023 - Treatment Hx: Tried oxybutynin, which was discontinued due to anticholinergic effect. Gemtesa was not approved - Continue mirabegron as prescribed, advised to have drug holiday from mirabegron, resume when pt's symptoms worsen Assessment & Plan (09/10/2023 4:55 PM EDT): - in a setting of dementia, DM2, and SGLT-2 inhibitor use - Followed by [facility], last seen on 05/31/23. - Continue mirabegron as prescribed, advised to have drug holiday from mirabegron, resume when pt's symptoms worsen Assessment & Plan (05/08/2023 11:04 AM EDT): - in a setting of dementia, DM2, and SGLT-2 inhibitor use - Followed by Dr. Vallecillo, [facility] - Continue mirabegron as prescribed Assessment & Plan (01/07/2023 4:51 PM EST): - in a setting of dementia, DM2, and SGLT-2 inhibitor use - Followed by Dr. Vallecillo, [facility] - Continue mirabegron as prescribed Recurrent urinary tract infection 12/10/2012 Assessment & Plan (01/14/2025 9:55 AM EST): - Followed by Dr. Vallecillo, last seen in Jun 2024 - most recent UTI in Oct 2024 - Continue adequate hydration - Caution with SGLT-2 inhibitor Assessment & Plan (05/08/2023 11:04 AM EDT): - Followed by Dr. Vallecillo - Continue adequate hydration - Caution with SGLT-2 inhibitor Assessment & Plan (01/07/2023 4:52 PM EST): - Followed by Dr. Vallecillo - Continue adequate hydration - Caution with SGLT-2 inhibitor Stage 3 chronic kidney disease 12/10/2012 Assessment & Plan (05/06/2025 11:30 AM EDT): Monitor as jardiance was discontinued to due frequent complicated utis requiring rehab stays which contribute to deconditioning, Assessment & Plan (01/17/2025 6:08 AM EST): -Desizing Machine Back Tender: Dr. Martinez -Avoid nephrotoxic drugs and use renal dosing. -Recheck renal function today -On Jardiance, at low-dose, 10mg daily. Caution with UTI Assessment & Plan (02/04/2024 1:13 PM EDT): -Desizing Machine Back Tender: Dr. Martinez -Baseline: 09/26/22 BUN 29; SCr 1.2, eGFR 43, AST 12, ALT 19, AP 91 -Avoid nephrotoxic drugs and use renal dosing. -Recheck renal function today -On Jardiance, at low-dose, 10mg daily. Assessment & Plan (09/10/2023 4:32 PM EDT): -Desizing Machine Back Tender: Dr. Martinez, last seen in 2017 or 2018. Per caregiver, pt was discharged due to stability -Baseline: 09/26/22 BUN 29; SCr 1.2, eGFR 43, AST 12, ALT 19, AP 91 -Avoid nephrotoxic drugs and use renal dosing. -Recheck renal function today -On Jardiance, at low-dose, 10mg daily. Assessment & Plan (05/08/2023 11:04 AM EDT): -Desizing Machine Back Tender: Dr. Martinez, last seen in 2016 or 2018. Per caregiver, pt was discharged due to stability -Baseline: 09/26/22 BUN 29; SCr 1.2, eGFR 43, AST 12, ALT 19, AP 91 -Avoid nephrotoxic drugs and use renal dosing. -Recheck renal function today -On Jardiance, at low-dose, 10mg daily. Assessment & Plan (01/07/2023 4:54 PM EST): -Desizing Machine Back Tender: Dr. Martinez, last seen in 2017 or 2018. Per caregiver, pt was discharged due to stability -Baseline: 09/26/22 BUN 29; SCr 1.2, eGFR 43, AST 12, ALT 19, AP 91 -Avoid nephrotoxic drugs and use renal dosing. -Recheck renal function today -On Jardiance, at low-dose, 10mg daily. 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) 07/21/2025 Refill [facility] [address] [place] [address] Liliana Sears MD 07/21/2025 Refill [facility] [address] [place] [address] Myah Singh MD Allergic rhinitis, unspecified seasonality, unspecified trigger 07/10/2025 Telephone [facility] [address] [place] [address] Myah Singh MD Durable Medical Equipment (DME: Multiple Items) 05/28/2025 Refill [facility] [address] [place] [address] Myah Singh MD Primary hypertension 05/07/2025 Telephone [facility] [address] [place] [address] Tabitha Collazo MA may recall 05/06/2025 11:30 AM EDT Telemedicine [facility] [address] [place] [address] Lizzette Antonio NP Stage 3 chronic kidney disease, unspecified whether stage 3a or 3b CKD ([facility]/HCC) (Primary Dx); Type 2 diabetes mellitus with stage 3 chronic kidney disease, without long-term current use of insulin, unspecified whether stage 3a or 3b CKD ([facility]) 05/06/2025 Travel 05/06/2025 Refill [facility] [address] [place], [place] [phone] Myah Singh MD from Last 3 Months Immunizations Immunization Administration Dates Next Due Influenza High-dose Quadriva lent Preservative Free 09/11/2023,10/03/2022,09/22/2021 Influenza injectable quadriv alent IIV4 with preservative 09/27/2017,08/18/2015 Influenza injectable quadriv alent preservative free 12/22/2016 Influenza, High Dose Seasona l, Preservative Free 12/09/2019,08/23/2018 Influenza, IIV3, injectable 10/21/2014, 1 Influenza, Split (incl. meghan fied surface antigen) 09/27/2013,12/10/2012 Influenza, Unspecified 10/03/2022,2020,10/21/2014,08/22 Pfizer Covid-19 Vaccine 12+ 01/22/2024, 2 Pfizer Covid-19 Vaccine 12+ Bivalent 10/03/2022 Pneumococcal Conjugate PCV 13 02/23/2015 Pneumococcal Polysaccharide PPSV23 10/04/2001 TD (adult), 2 Lf tetanus tox oid, preservative free, adsorbed 12/29/2022 Tdap 12/10/2012 Zoster, Recombinant 12/28/2021,09/22/2021 Zoster, live 12/28/2021,09/22/2021,02/23/2015 Social History Tobacco Use Types Packs/Day Years Used Date Smoking Tobacco: Former Cigarettes Smokeless Tobacco: Former Tobacco Cessation:Counseling Given: Not Answered Depression Answer Date Recorded Patient Health Questionnaire-9 Score 0 05/08/2023 Housing Stability Answer Date Recorded What is your housing situation today? I have maryan bell 09/10/[address] you li ve. Do you have problems with any of the following? None of the above 09/10/2023 Food Insecurity Answer Date Recorded Within the past 12 months, y ou worried that your food would run out before you got money to buy more: Never True 09/10/2023 Within the past 12 months,th e food you bought just didn't last and you didn't have enough money to get more: Never True Transportation Answer Date Recorded In the past 12 months, has l ack of transportation kept you from medical appts, meetings, work or from getting things needed for daily living? No 09/10/2023 Utilities Answer Date Recorded In the past 12 months, has t he electric, gas, oil or water company threatened to shut off services in your home? No 09/10/2023 Depression Answer Date Recorded Patient Health Questionnaire-2 Score 0 05/08/2023 Comments Unknown Sex and Gender Information Value Date Recorded Sex Assigned at Female 09/26/2022 10:14 AM EDT Legal Sex Female 10:14 AM EDT Gender Identity Female 09/26/2022 10:14 AM EDT Sexual Orientation Straight 09/26/2022 10 :14 AM EDT Last Filed Vital Signs Vital Sign Reading Time Taken Comments Blood Pressure 129/68 01/14/2025 9:52 AM EST Pulse 64 01/14/2025 9:52 AM EST Temperature 36.8 C (98.3 F) 01/22/2024 11:40 AM EST Respiratory Rate 20 01/22/2024 11:40 AM EST Oxygen Saturation 96% 09/11/2023 10:17 AM EDT Inhaled Oxygen Concentration - - Weight 82.1 kg (181 lb) 01/22/2024 11:40 AM EST Height 152.4 cm (5') 01/22/2024 11:40 AM EST Body Mass Index 35.35 01/22/2024 11:40 AM EST Plan of Treatment Health Maintenance Due Date Last Done Comments Diabetes: Foot Exam 1945 Eye Exam 1946 Alcohol/Substance Use Screening 1948 Hepatitis A Vaccines (1 of 2 - Risk 2-dose series) 1955 Hepatitis B Vaccines (1 of 3 - Risk 3-dose series) 1996 RSV Patients and Patients Aged 60 years or older (1 - 1-dose 75+ series) 2011 Depression Screening 05/08/2024 05/08/2023, 05/08/20 SDOH Screening 05/08/2024 05/08/2023 Lipid Panel 01/22/2025 01/22/2024, 12/2022, 12/28/2021 COVID-19 Vaccine ( season) 2025 01/22/2024, 10/03/2022, 10/03/2022, Additional history exists Influenza Vaccine (#1) 2025 5, 09/11/2023, 10/03/2022, Additional history exists Diabetes: Hemoglobin A1C 08/26/2025 025, 09/11/2023, 12/29/2022, Additional history exists Tobacco Screening 01/17/2026 01/17/2025 DTaP/Tdap/Td Vaccines (3 - Td or Tdap) 12/29/2032 12/29/2022, 12/10/2012 Pneumococcal Vaccine: 50+ Years Completed 02/23/2015, 10/04/2001 Zoster Vaccines Completed 12/28/2021, 11/2021, 09/22/2021, Additional history exists HIB Vaccines Aged Out No longer eligi [...] patient's age to complete this topic Meningococcal Vaccine Aged Out No judy sharon eligible based on patient's age to complete this topic RSV under 20 months Aged Out No longe r eligible based on patient's age to complete this topic Rotavirus Vaccines Aged Out No longer eligible based on patient's age to complete this topic Procedures Procedure Name Priority Date/Time Associated Diagnosis Comments LIPID PANEL WITH REFLEX TO DIRECT LDL Routine 01/22/2024 12:20 PM EST Type 2 diabetes mellitus with stage 3 chronic kidney disease, without long-term current use of insulin, unspecified whether stage 3a or 3b CKD (CMS/HCC) Dyslipidemia POCT GLYCOSYLATED HEMOGLOBIN (HGB A1C) Routine 09/11/2023 10:29 AM EDT Type 2 diabetes mellitus with stage 3 chronic kidney disease, without long-term current use of insulin, unspecified whether stage 3a or 3b CKD (CMS/HCC) from Last 3 Months or Most Recently Relevant to Health Maintenance Results * Lipid Panel with Reflex to Direct LDL (01/22/2024 12:20 PM EST) Triglycerides 130 <150 mg/dL [facility] Comment:Desirable Triglyceri de: less than 150 mg/dLBorderline High Triglyceride 150-199 mg/dLHigh Triglyceride: 200-499 mg/dLVery High Triglyceride: greater than or equal to 5OO mg/dL Cholesterol 109 <200 mg/dL [facility] Comment:Desirable Cholestero l: less than 200 mg/dLBorderline High Cholesterol: 200-239 mg/dLHigh Cholesterol: greater than 239 mg/dL LDL Cholesterol Calculated 41 <100 mg/dL [facility] Comment:Desirable LDL: less than 100 mg/dLNear Optimal/Above Optimal LDL: 110- 129 mg/dLBorderline High LDL: 130-159 mg/dLHigh LDL: 160-189 mg/dLVery High LDL: greater than or equal to 190 mg/dL HDL Cholesterol 42 >40 mg/dL [facility] Comment:Desirable HDL: great er than 40 mg/dL Note: This HDL assay may give artificially low results in patients with liver disease. Blood 01/22/2024 12:2 0 PM EST 01/22/2024 1:11 PM EST us Myah Singh MD LAB BLOOD ORDERABLES Final Resul t [facility] [address] [place] [address] [phone] * (ABNORMAL) POCT glycosylated hemoglobin (Hgb A1c) (09/11/2023 10:29 AM EDT) Hemoglobin A1C 6.2(A) 4.0 - 6.0 % QC Media Lot # [id number] Lot# Expiration Date [id number] Blood Capillary blood specimen / Unknown 09/11/2023 10:29 AM EDT Myah Singh MD POINT OF CARE TEST ENTER/EDIT OR DERABLES Final Result from Last 3 Months or Most Recently Relevant to Health Maintenance Insurance [facility] ALF OPTIONS (O D-SNP) [employer] [id number] Care Teams Marketing Sales Consultant Relationship Specialty Start Date End Date Myah Singh MD [address] [place] [address] PCP - General Family Medicine 11/08/12
--- OUTSIDE RECORDS SUMMARY | 2025-08-06 12:51 | XMS_ITS | Encounter Summary ---
Author Organization [facility] Address [address] [facility] [address] [place] [address] Phone Care Team Providers Care Assistant Community Manager Name Role Phone Unavailable Primary Care Provider Unavailabl e Reason for Visit * Reason Comments Med Refill Encounter Details Date Type Department Care Team ([facility] st Contact Info) Description 12/10/2021 Refill [facility] [address] [facility] [address] [place] [phone] Chino Martinez MD [address] [facility] [address] [place] [phone] Social History Tobacco Use Types Packs/Day Years [...]
--- OUTSIDE RECORDS SUMMARY | 2025-08-06 12:51 | XMS_ITS | Encounter Summary ---
Author Organization [employer] Address [address] [place] [address] 7t [place] [address] Care Team Providers Care Person Investigator Name Role Phone Myah Singh MD Primary Care Provider [phone] Reason for Visit * Reason Comments Med Refill Encounter Details Date Type Department Care Team (Late st Contact Info) Description 08/04/2025 Refill [facility] MEDICINE [address] [place] [address] Myah Singh MD [address] [place], [place] [phone] Type 2 diabetes mellitus with stage 3 chronic kidney disease, without long-term current use of insulin, unspecified whether stage 3a or 3b CKD (CMS/HCC) Social History Tobacco Use Types Packs/Day Years Used Date Smoking Tobacco: Former Cigarettes Smokeless Tobacco: Former Depression Answer Date Recorded Patient Health Questionnaire-9 [...] Orientation Straight 09/26/2022 10 :14 AM EDT documented as of this encounter Plan of Treatment Not on file documented as of this encounter Visit Diagnoses Diagnosis Type 2 diabetes mellitus with stage 3 chronic kidney disease, without long-term current use of insulin, unspecified whether stage 3a or 3b CKD (CMS/HCC) documented in this encounter Additional Health Concerns Assessment Noted Time PHQ-9 Depression Total Score: 0 05/08/20 23 10:25 AM EDT documented as of this encounter Care Teams Person Investigator Relationship Specialty Start Date End Date Myah Singh MD [address] [place] [id number] PCP - General Family Medicine 11/08/12 documented as of this encounter
--- OUTSIDE RECORDS SUMMARY | 2025-08-06 12:51 | XMS_ITS | Encounter Summary ---
Author Organization [email or web address] Address [address] [facility] 7t [place] [address] Care Team Providers Care Sales Representative Metals Name Role Phone Myah Singh MD Primary Care Provider Reason for Visit * Reason Comments Med Refill Encounter Details Date Type Department Care Team (Late st Contact Info) Description 05/22/[address] [facility] [address] [place], [place] [phone] Myah Singh MD [address] [place], [place] [phone] Social History Tobacco Use Types Packs/Day Years [...] Diagnoses Not on filedocumented in this encounter Additional Health Concerns Assessment Noted Time PHQ-9 Depression Total Score: 0 05/08/20 23 10:25 AM EDT documented as of this encounter Care Teams Sales Representative Metals Relationship Specialty Start Date End Date Myah Singh MD [address] [place] [address] PCP - General Family Medicine 11/08/12 [facility] 12/31/24 07/29/25 documented as of this encounter
--- OUTSIDE RECORDS SUMMARY | 2025-08-06 12:51 | XMS_ITS | Encounter Summary ---
Author Organization [employer] Address [address] [facility] 7t [place] [address] Care Team Providers Care Grade School Teacher Name Role Phone Myah Singh MD Primary Care Provider [phone] Encounter Details Date Type Department Care Team (Late st Contact Info) Description 01/30/2023 Telephone [facility] MEDICINE [address] [place], [place] [phone] Myah Singh MD [address] [place], [place] [phone] Social History Tobacco Use Types Packs/Day Years [...] Diagnoses Not on filedocumented in this encounter Care Teams Grade School Teacher Relationship Specialty Start Date End Date Myah Singh MD [address] [place], [place] [phone] PCP - General Family Medicine 11/08/12 [facility] 12/31/24 07/29/25 documented as of this encounter
--- OUTSIDE RECORDS SUMMARY | 2025-08-06 12:51 | XMS_ITS | Encounter Summary ---
Author Organization [employer] Address [address] [facility] 7t [place] [address] Care Team Providers Care Lipcoat Sprayer Name Role Phone Myah Singh MD Primary Care Provider [phone] Reason for Visit * Reason Comments Med Refill Encounter Details Date Type Department Care Team (Late st Contact Info) Description 11/29/2023 Refill [facility] [address] [place], [place] [phone] Myah Singh MD [address] [place], [place] [phone] Vitamin D deficiency Social History Tobacco Use Types Packs/Day Years [...] as of this encounter Visit Diagnoses Diagnosis Vitamin D deficiency documented in this encounter Additional Health Concerns Assessment Noted Time PHQ-9 Depression Total Score: 0 05/08/20 23 10:25 AM EDT documented as of this encounter Care Teams Lipcoat Sprayer Relationship Specialty Start Date End Date Myah Singh MD [address] [place] [phone] PCP - General Family Medicine 11/08/12 [facility] 12/31/24 07/29/25 documented as of this encounter
--- OUTSIDE RECORDS SUMMARY | 2025-08-06 12:51 | XMS_ITS | Encounter Summary ---
Author Organization [employer] Address [address] [place] [address] 7t [place] [address] Care Team Providers Care Doughnut Icer Name Role Phone Myah Singh MD Primary Care Provider [phone] Reason for Visit * Reason Onset Date Comments Durable Medical Equipment 01/30/2023 Encounter Details Date Type Department Care Team (Late st Contact Info) Description 01/30/2023 Telephone [facility] MEDICINE [address] [place], [place] [phone] Myah Singh MD [address] [place], [place] [phone] Durable Medical Equipment Social History Tobacco Use Types Packs/Day Years Used Date Smoking Tobacco: Never Assessed Comments Unknown Sex and Gender Information Value Date Recorded Sex Assigned at Female 09/26/2022 10:14 AM EDT Legal Sex Female 10:14 AM EDT Gender Identity Female 09/26/2022 10:14 AM EDT Sexual Orientation Straight 09/26/2022 10 :14 AM EDT documented as of this encounter Miscellaneous Notes * Telephone Encounter - Cristel Hood - 01/31/2023 9:10 AM EST Called [employer] to follow up on status no answer LVM to call me or CHACE Beltran also patient [employer] can call them as they are the vendor for more information [phone] * Telephone Encounter - Uriahdenise Rodriguez Sanam - 01/30/2023 10:00 AM EST Tc from pt [employer] Jonathan stating that for the last two months pt Large Pull ups and Wipes have not been deliver Please contact jonathan at [phone] documented in this encounter Plan of Treatment Not on file documented as of this encounter Visit Diagnoses Not on filedocumented in this encounter Care Teams Doughnut Icer Relationship Specialty Start Date End Date Myah Singh MD [address] [place] [id number] PCP - General Family Medicine 11/08/12 [facility] 12/31/24 07/29/25 documented as of this encounter
--- OUTSIDE RECORDS SUMMARY | 2025-08-06 12:51 | XMS_ITS | Encounter Summary ---
Author Organization [employer] Address [address] [facility] 7t [place] [address] Care Team Providers Care Data Operations Manager Name Role Phone Myah Singh MD Primary Care Provider [phone] Reason for Visit * Reason Comments Med Refill Encounter Details Date Type Department Care Team (Late st Contact Info) Description 10/22/2024 Refill [facility] MEDICINE [address] [place], [place] [phone] Myah Singh MD [address] [place], [place] [phone] Allergic rhinitis, unspecified seasonality, unspecified trigger Social History Tobacco Use Types Packs/Day Years [...] as of this encounter Visit Diagnoses Diagnosis Allergic rhinitis, unspecified seasonality, unspecified trigger documented in this encounter Additional Health Concerns Assessment Noted Time PHQ-9 Depression Total Score: 0 05/08/20 23 10:25 AM EDT documented as of this encounter Care Teams Data Operations Manager Relationship Specialty Start Date End Date Myah Singh MD [address] [place] [address] PCP - General Family Medicine 11/08/12 [facility] 12/31/24 07/29/25 documented as of this encounter
--- OUTSIDE RECORDS SUMMARY | 2025-08-06 12:51 | XMS_ITS | Clinical Summary ---
Author Organization [facility] Address [address] [address] Care Team Providers Care Tongsman Name Role Phone Unavailable Primary Care Provider [...] -Pt has an upcoming appt with her classification officer History of cerebrovascular accident 01/07/2023 Overview (01/23/2023): Last Assessment & Plan: -around 2009 previous medical record -TIA in 2015 -Continue working on secondary prevention / risk factor management History of non-ST segment elevation myocardial i nfarction 01/07/2023 Overview (01/23/2023): Last Assessment & Plan: -Oct 2015 -Previously following with [facility], upcoming appt -Continue risk factor mangement [...] Risk: CKD, age, NSTEMI, Hx CVA/TIA, DM2 -Drosophere Operator: Previously [facility], pt has a new appt on 01/23/23 [...] Followed by Dr. Vallecillo, [facility] - Continue mirabegron as prescribed Unspecified [...] Diabetes: Hemoglobin A1C 03/28/2023 12/29/2022 Influenza Vaccine (#1) 2025 2, 09/22/2021, 12/09/2019, Additional history exists Pneumococcal Vaccine: 50+ Years Completed 5, 10/04/2001 Pneumococcal Vaccine: Peds ( 0 to 5 Years) and At-Risk Patients (6 to 49 Years) Discontinued 02/23/2015, 10/04/2001 Insurance [facility] ([id number]) [employer] [phone] [facility] ([id number])
--- OUTSIDE RECORDS SUMMARY | 2025-08-06 12:51 | XMS_ITS | Encounter Summary ---
Author Organization [employer] Address [address] [facility] 7t [place] [address] Care Team Providers Care Oracle Identity Management Consultant Name Role Phone Myah Singh MD Primary Care Provider [phone] Encounter Details Date Type Department Care Team ([facility] st Contact Info) Description 03/26/2025 Telephone [facility] MEDICINE [address] [place], [place] [phone] Myah Singh MD [address] [place], [place] [phone] Social History Tobacco Use Types Packs/Day Years [...] documented as of this encounter Care Teams Oracle Identity Management Consultant Relationship Specialty Start Date End Date Myah Singh MD [address] [place] [phone] PCP - General Family Medicine 11/08/12 [facility] 12/31/24 07/29/25 documented as of this encounter
[2025-08-06 13:04] LABS: Appearance Urine Cloudy; Glucose Urine UA Negative (Negative); PH 5.5 (5.0-9.0); Specific Gravity - Urine 1.025 (1.005-1.025); UMIC TRIGGER UACC YES
[2025-08-06 13:16] LABS: UACC Culture Trigger YES
--- NOTE | 2025-08-06 13:31 | MHC.EDTECH ---
patient is incontinent of urine clean pantient and place patient on a purewick nurse aware
--- NOTE | 2025-08-06 14:49 | PC.NURSE ---
Spoke to HCP/grand daughter and provided update. Granddaughter sts she will come in to pick the patient up.
[2025-08-06] MEDS: Sulfamethox/Trimeth 800/160 TABLET 1 TAB PO ×2 (15:25→21:23)
--- NOTE | 2025-08-06 15:30 | PC.NURSE ---
Attempted to ambulate patient with walker. Pt was not able to take a step, had trouble standing. Provider notified.
--- NOTE | 2025-08-06 16:47 | PC.NURSE ---
report called to natalio Monzon RN.
--- NOTE | 2025-08-06 18:26 | MHC.CM.ED ---
Addendum entered by Debbi Church 08/06/25 18:44: 18 referrals placed. Awaiting bed offers. Original Note: CM met with patient and granddaughter/HCP. Interview conducted with granddaughter. Pt has dementia and is a poor historian. Patient lives alone on the second floor. 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 2 hours in am, 2 hours in afternoon and 2 hours at night. 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 Family also provides help. Pt uses a walker. Active with [facility]. HCP/POA on file. Elena Hurtado ([phone]). [facility] on file-DNR/DNI. Pt has a UTI. Pt with difficulty ambulating. PT pending for the morning. Granddaughter requesting [facility] as first choice. Pt has [employer] insurance. Will place local referrals. PCP is Dr. Rossi. Address and insurance verified. Contact card given to granddaughter. CM will follow for safe discharge planning.
--- NOTE | 2025-08-06 19:44 | PM.EVENT ---
Event Note Date of Service: 08/06/25 Event Note: Fall: Patient had a unwitnessed fall. Patient reported that she felt dizzy and fell onto the floor. RN mentioned that she probably can until 4 from her commode. Patient was found on the floor with head onto the floor. Patient reports she hit her head. Denies any headache. Denies any neck pain. Denies any back pain. Denies any hip pains. Exam benign. Will obtain CT head, CT C-spine, CT abdomen pelvis Fall precautions Time Spent With Patient Time: Total time managing care of this patient today ____ minutes.
[2025-08-06 19:47] LABS: Glucose, Whole Blood 146 mg/dL (60-115)
--- NOTE | 2025-08-06 20:12 | PC.NURSE ---
pt brought over from overflow to CT immediately. pt brought into ed 14. engineering project manager at bedside. per pt, pt states she got dizzy when standing up to get out of bed to the commode and fell. per staff, pt hit head. pt reports right wrist pain and lower abdominal pain. pt a&ox1 at this time and it at baseline. vss. JOJO Cosme aware. pt right wrist noted to be swollen at this time. nsr on tele 77bpm
--- NOTE | 2025-08-06 21:25 | PC.NURSE ---
pt medicated per mar, tolerated whole with water
--- NOTE | 2025-08-06 22:33 | PC.NURSE ---
VMT form filed and faxed to camera room. camera placed on pt. pt placed into hospital bed and bed alarm in place. pt had episode of vomiting when assisting in bed change. purewick placed. JOJO Aguiar made aware
--- NOTE | 2025-08-06 22:33 | MHC.EDTECH ---
Patient put on a hospital bed. Patient also vomited a very small amount. Nurse aware and witnessed it when we put her on the bed
--- NOTE | 2025-08-06 22:37 | PC.NURSE ---
Pt arrived to overflow from main ED at approx 1705. She was settled in bed with purewick in place, IV fluids infusing and bed alarm on. She was oriented to self, She reported a little pain to LLQ abdomin to palpation. Pt SOARES and cooperative with care. She was instructed on use of call oliver. During change of shift a noise was heard from room and pt found on floor with commode tipped over. MANAGER AGENCY called and site interpreter called. Pt endorsed hitting her head. She denied pain anywhere on body both before and during palpation of all limbs, spine, and head except the previous pain noted to LLQ abdomen. Team to bedside and oncoming FACUNDO Villanueva assumed care of patient.
[2025-08-06] MEDS: BUPivacaine MPF 0.25 % 10 ML VIAL INFILTRATI (23:36)
--- NOTE | 2025-08-06 23:45 | PC.NURSE ---
providers at bedside with pt, pt wrist casted at this time, pt tolerated well and offers no complaints at this time.
[2025-08-07] VITALS (8 sets, daily range): BP systolic 123–155; BP diastolic 59–72; PULSE 72–96; RESP 12–20; TEMP 36.8–38.7; O2SAT 92–99
--- NOTE | 2025-08-07 00:07 | PC.NURSE ---
At approx 1930 during shift report from dayshift RN a noise was heard from pts room. Pt found on the floor with the bedside commode tipped over and stool on the floor. Pt had a large brown formed BM. POULTRY FARMER EGG and advice clerk called. Vital signs obtained, WNL. at bedside. Pt endorses she had a head strike. Denies any pain at this time. Denies pain during palpation of extremities. No visible injury. Pt was assisted to stretcher by staff. Pt transported to main ED post fall. Imaging pending.
--- NOTE | 2025-08-07 02:34 | PC.NURSE ---
pt resting in stretcher, bed alarm in place, offers no complaints at this time. camera 1:1
--- NOTE | 2025-08-07 06:07 | PC.NURSE ---
pt assisted with repositioning in bed, pt offers no complaints at this time, pillow placed under right wrist for comfort. vss. bed alar, on and camera in place
[2025-08-07 06:30] LABS: Glucose, Whole Blood 113 mg/dL (60-115)
[2025-08-07] MEDS: Sulfamethox/Trimeth 800/160 TABLET 1 TAB PO ×2 (08:42→22:09)
--- NOTE | 2025-08-07 08:45 | PC.NURSE ---
Pt resting comfortably on hospital bed. ate most of breakfast. medicated per order. camera in place for safety.
[2025-08-07 09:34] LABS: Resp Syncy Virus RNA Qual PCR NEGATIVE (Negative); SARS COV2 PCR INHOUSE NEGATIVE (Negative)
--- NOTE | 2025-08-07 10:04 | MHC.CM.ED ---
Patient remains in ER. Physical therapy eval completed. Short term rehab is recommended. [facility] is [facility]st choice. Waiting to hear if they are able to offer a bed. Continue to monitor for d/c needs.
--- NOTE | 2025-08-07 11:40 | PC.NURSE ---
Pt's bed alarm found to be non-functional. Mower Sharpener aware, biomed contacted, and transport contacted for new hospital bed. Pt transferred to hospital bed w/functioning bed alarm, repositioned for comfort. Care ongoing.
--- NOTE | 2025-08-07 13:46 | MHC.CM.ED ---
Addendum entered by Elsie Encarnacion 08/07/25 14:08: Received notification from [facility] that they have a bed available. Elena aware and accepts bed. Original Note: Patient remains in ER. Physical therapy eval completed. Short term rehab is recommended. [facility] does not have a female bed. Are able to offer a bed at their sister facility, [facility]. Spoke with patient's granddaughter, Elena, via telephone. Discussed multiple bed offers. Elena accepts bed at [facility] because patient has been there before. [facility] will not have a bed before Monday. Elena prefers to wait for Monday. [facility] aware and will obtain insurance auth Monday. Continue to monitor for d/c needs.
--- NOTE | 2025-08-07 14:55 | PHA.MEDREC ---
Addendum entered by Kandice Tamez RPh 08/07/25 15:20: Reviewed by [facility]. Jardiance was stopped by . Original Note: Pharmacy Consult ? Medication Reconciliation Pharmacy has completed the medication reconciliation. Spoke with pt granddaughter this Am over the phone and she was not very helpful or pleasant with the pt medications and told us to call pt pharmacy ([facility]). I got list and utilized med list; called and spoke with granddaughter and visiting nurse over the phone and they were able to help confirm the pr last took her Iron tablet yesterday (Pt takes it Q48H), the pt takes Haloperidol for her agitation and the nurse and granddaughter states that medication cannot be substituted; pt dosent react well to it.
[2025-08-07 16:36] LABS: Glucose, Whole Blood 90 mg/dL (60-115)
--- NOTE | 2025-08-07 18:22 | MHC.CM.ED ---
Addendum entered by Debbi Church 08/07/25 20:19: Daughter, Sienna aware of insurance auth and discharge to [facility] 08/08 at 10am. Original Note: Insurance auth obtained by [facility]. Pt will discharge 08/08 at 10am via BLS. Med [facility]/paperwork completed and with community cultural development officer. Provider aware
--- NOTE | 2025-08-07 19:25 | PC.NURSE ---
assumed care of pt. pt respirations even and unlabored. pt in hospital bed.
--- NOTE | 2025-08-07 21:54 | PC.NURSE ---
pt medicated per JAN for fever, awaiting Bactrim
--- NOTE | 2025-08-07 22:10 | PC.NURSE ---
pharmacy delivered Bactrim, pt medicated per mar
--- NOTE | 2025-08-07 23:35 | MHC.EDTECH ---
This tech took over care of pt at 2300, rounded and introduced self to patient, vitals taken, rectal temp taken and is 100.9, RN Ansley at bedside with t/w, continuous rectal probe placed at this time, pt tolerated well, patient was repositioned to comfort,patient has a pure wick in place done by previous shift,draining well,canister emptied 700MLS of dark yellow urine,pillows placed under feet and under right arm, bed alarm set at second level due to being a high risk for falls,camera in place for safety, call oliver in reach.
[2025-08-08] VITALS (8 sets, daily range): BP systolic 128–159; BP diastolic 68–77; PULSE 82–87; RESP 12–18; TEMP 37.1–38.2; O2SAT 89–96
--- NOTE | 2025-08-08 02:05 | MHC.EDTECH ---
Rounds completed, patient is sleeping,resp.rate WNL, patient appears comfortable,bed alarm on and camera in place for safety.
--- NOTE | 2025-08-08 08:56 | PC.NURSE ---
Pt resting quietly in bed. Breakfast given to pt. Fed with assistance. Pt NSR on monitor. 2LNC satting 98%. NAD. Pt denies pain. OCL splint on RUE. +TEST AND BALANCE ENGINEER. Pt to be discharged to SNF this am.
[2025-08-08] MEDS: Aspirin Enteric Coated 81 MG TABLET.DR PO (09:08)
[2025-08-08] MEDS: Sulfamethox/Trimeth 800/160 TABLET 1 TAB PO (09:29)
[2025-08-08] MEDS: Mirabegron 50 MG TAB.ER.24H PO (09:56)
[2025-08-08] MEDS: Ferrous Sulfate 324 MG TABLET.DR PO (09:56)
[2025-08-08] MEDS: Calcium + Vitamin D 250 MG TABLET 500 MG PO (09:56)
== END 2025-08-08 10:54 ==
PROVIDERS: Registered Nurse Emergency; Emergency Provider Emergency Medicine; PCP Family Medicine
DX: N39.0 Urinary tract infection, site not specified (principal); G47.33 Obstructive sleep apnea (adult) (pediatric); R53.1 Weakness; S62.101A Fracture of unspecified carpal bone, right wrist, initial encounter for closed fracture; X58.XXXA Exposure to other specified factors, initial encounter; Y93.89 Activity, other specified; Y92.9 Unspecified place or not applicable; Y99.9 Unspecified external cause status; F03.90 Unspecified dementia, unspecified severity, without behavioral disturbance, psychotic disturbance, mood disturbance, and anxiety; E11.22 Type 2 diabetes mellitus with diabetic chronic kidney disease; I12.9 Hypertensive chronic kidney disease with stage 1 through stage 4 chronic kidney disease, or unspecified chronic kidney disease; N18.9 Chronic kidney disease, unspecified; Z99.89 Dependence on other enabling machines and devices; Z91.199 Patient's noncompliance with other medical treatment and regimen due to unspecified reason; Z79.899 Other long term (current) drug therapy; Z03.818 Encounter for observation for suspected exposure to other biological agents ruled out
CPT/HCPCS: 36415; 70450; 71045; 71250; 72125; 73100; 73110; 73130; 74176; 80053; 81001; 82947; 84484; 85025; 87086; 87088; 87186; 87637; 97162; 99285; J0665

== ENCOUNTER → 2025-08-06 11:04 | Outpatient (BNV) | payer OTHER, SELFPAY | PROVIDERS: Emergency Provider Emergency Medicine; Visit Provider Radiology Diagnostic Radiology | DX: K57.30 Diverticulosis of large intestine without perforation or abscess without bleeding (principal); K44.9 Diaphragmatic hernia without obstruction or gangrene; S52.513A Displaced fracture of unspecified radial styloid process, initial encounter for closed fracture; Z03.89 Encounter for observation for other suspected diseases and conditions ruled out; W19.XXXA Unspecified fall, initial encounter | CPT/HCPCS: 70450; 71045; 71250; 72125; 73110; 73130; 74176 ==

== ENCOUNTER → 2025-08-07 00:07 | Outpatient (BNV) | payer OTHER, SELFPAY | PROVIDERS: Emergency Provider Emergency Medicine; Visit Provider Student in an Organized Health Care Education/Training Program | DX: S52.571G Other intraarticular fracture of lower end of right radius, subsequent encounter for closed fracture with delayed healing (principal) | CPT/HCPCS: 73100 ==

== ENCOUNTER 2025-08-11 05:46 | Outpatient (REF) | payer OTHER, SELFPAY ==
[2025-08-11 05:49] LABS: MANUAL DIFF FLAG NO
--- OUTSIDE RECORDS SUMMARY | 2025-08-11 05:53 | XMS_ITS | Clinical Summary ---
Author Organization [facility] Facility Address [address] [address] Care Team Providers Care Home Theater Installer Name Role Phone Unavailable Primary Care Provider [...] -Pt has an upcoming appt with her tenter History of cerebrovascular accident 01/07/2023 Overview (01/23/2023): Last Assessment & Plan: -around 2009 previous medical record -TIA in 2015 -Continue working on secondary prevention / risk factor management History of non-ST segment elevation myocardial i nfarction 01/07/2023 Overview (01/23/2023): Last Assessment & Plan: -Oct 2015 -Previously following with [facility], upcoming appt -Continue risk factor mangement [...] Risk: CKD, age, NSTEMI, Hx CVA/TIA, DM2 -Computer Graphic Artist: Previously [facility], pt has a new appt on 01/23/23 [...] Followed by Dr. Vallecillo, [facility] - Continue mirabegron as prescribed Unspecified [...] to 49 Years) Discontinued 02/23/2015, 10/04/2001 Insurance [facility] ([id number]) JOJO HICKEY [phone] [facility] ([id number])
--- OUTSIDE RECORDS SUMMARY | 2025-08-11 05:54 | XMS_ITS | Encounter Summary ---
Author Organization [facility] Address [address] [facility] [address] [place] [address] Phone Care Team Providers Care Dental Front Office Assistant Name Role Phone Unavailable Primary Care Provider Unavailabl e Reason for Visit * Reason Comments Med Refill Encounter Details Date Type Department Care Team ([facility] st Contact Info) Description 12/10/2021 Refill [facility] [address] [facility] [address] [place] [phone] Chino Martinez MD [address] [place] [phone] Social History Tobacco Use Types Packs/Day Years [...]
--- OUTSIDE RECORDS SUMMARY | 2025-08-11 05:54 | XMS_ITS | Encounter Summary ---
Author Organization [facility] Address [address] [place] [address] Care Team Providers Care Crop Specialist Name Role Phone Tony Arreola MD Primary Care Provider [phone] Encounter Details Date Type Department Care Team (Late st Contact Info) Description 11/29/[address] [facility] Main Lab [address] [place] [address] Tony Arreola MD [address] [facility] [address] [place], [phone] Weakness; Unspecified dementia, unspecified severity, without [...] mmol/L LAB CHEMISTRY METHOD 12/02/2024 11:14 AM [facility] Potassium 4.0 3.5 - 5.5 mmol/L LAB CHEMISTRY METHOD 12/02/2024 11:14 AM [facility] Chloride 112(H) 96 - 110 mmol/L LAB CHEMISTRY METHOD 12/02/2024 11:14 AM [facility] CO2 27 21 - 32 mmol/L LAB CHEMISTRY METHOD 12/02/2024 11:14 AM [facility] Anion Gap 5 3 - 11 LAB CHEMISTRY METHOD 12/02/2024 11:14 AM [facility] Glucose 80 70 - 100 mg/dL LAB CHEMISTRY METHOD 12/02/2024 11:14 AM [facility] BUN 28(H) 5 - 25 mg/dL LAB CHEMISTRY METHOD 12/02/2024 11:14 AM [facility] Creatinine 1.19(H) 0.50 - 1.10 mg/dL LAB CHEMISTRY METHOD 12/02/2024 11:14 AM [facility] eGFR 44(L) >=60 mL/min/1. 73m2 LAB CHEMISTRY METHOD 12/02/2024 11:14 AM [facility] Comment:Calculation based on the Chronic Kidney Disease Epidemiology Collaboration (CKD-EPI) equation refit without adjustment for race. BUN/Creatinine Ratio 23.5 LAB CHEMISTRY METHOD 12/02/2024 11:14 AM [facility] Calcium 9.3 8.5 - 10.5 mg/dL LAB CHEMISTRY METHOD 12/02/2024 11:14 AM [facility] Blood Venous blood specimen / Unknown Venipuncture / Unknown 12/02/2024 7:21 AM EST 12/02/2024 10:33 AM EST us Tony Arreola MD LAB BLOOD ORDERABLES Final Resul t [facility] [address] [place] [address], * (ABNORMAL) Complete blood count (12/02/2024 7:21 AM EST) [facility] WBC 6.8 4.8 - 10.8 K/mcL LAB HEMETOLOGY METHOD 12/02/2024 10:57 AM [facility] RBC 4.40 3.80 - 4.80 M/mcL LAB HEMETOLOGY METHOD 12/02/2024 10:57 AM [facility] Hemoglobin 12.9 11.5 - 16.0 g/dL LAB HEMETOLOGY METHOD 12/02/2024 10:57 AM [facility] Hematocrit 41.3 35.0 - 47.0 % LAB HEMETOLOGY METHOD 12/02/2024 10:57 AM [facility] MCV 93.9 79.0 - 98.0 FL LAB HEMETOLOGY METHOD 12/02/2024 10:57 AM [facility] MCH 29.3 27.0 - 32.0 pcg LAB HEMETOLOGY METHOD 12/02/2024 10:57 AM [facility] MCHC 31.2(L) 32.0 - 37.0 g/dL LAB HEMETOLOGY METHOD 12/02/2024 10:57 AM [facility] RDW 14.5 11.0 - 15.0 % LAB HEMETOLOGY METHOD 12/02/2024 10:57 AM [facility] Platelets 155 130 - 400 K/mcL LAB HEMETOLOGY METHOD 12/02/2024 10:57 AM [facility] MPV 11.6(H) 7.0 - 11.0 FL LAB HEMETOLOGY METHOD 12/02/2024 10:57 AM [facility] NRBC 0.0 <1.0 % LAB HEMETOLOGY METHOD 12/02/2024 10:57 AM [facility] NRBC Absolute 0.00 <0.10 K/mcL LAB HEMETOLOGY METHOD 12/02/2024 10:57 AM EST [facility] Blood Venous blood specimen / Unknown Venipuncture / Unknown 12/02/2024 7:21 AM EST 12/02/2024 10:33 AM EST us Tony Arreola MD LAB BLOOD ORDERABLES Final Resul t [facility] ([facility] [address] [place] [address], documented in this encounter Visit Diagnoses Diagnosis Weakness Other malaise and fatigue Unspecified dementia, unspecified severity, without behavioral disturbance, psychotic disturbance, mood disturbance, and anxiety (CMS/HCC V24, CMS/HCC V28) documented in this encounter Care Teams Crop Specialist Relationship Specialty Start Date End Date Tony Arreola MD [address] [place] [address] [address] [place], [phone] PCP - General Family Medicine 12/14/24 documented as of this encounter
--- OUTSIDE RECORDS SUMMARY | 2025-08-11 05:54 | XMS_ITS | Encounter Summary ---
Author Organization [employer] Address [address] [facility] [address] [place] [address] Care Team Providers Care Services Engineer Name Role Phone Myah Singh MD Primary Care Provider [phone] Encounter Details Date Type Department Care Team (Late st Contact Info) Description 01/30/2023 Telephone [facility] MEDICINE [address] [place], [place] [phone] Myah Singh MD [address] [place], [place] [phone] Social History Tobacco Use Types Packs/Day Years [...] on filedocumented in this encounter Care Teams Services Engineer Relationship Specialty Start Date End Date Myah Singh MD [address] [place], [place] [phone] PCP - General Family Medicine 11/08/12 [facility] 12/31/24 07/29/25 documented as of this encounter
--- OUTSIDE RECORDS SUMMARY | 2025-08-11 05:54 | XMS_ITS | Clinical Summary ---
Author Organization [address] [facility] Address [address] [place] [address] Phone Care Team Providers Care Accounts Supervisor Name Role Phone Tony Arreola MD Primary Care Provider [phone] Social History Tobacco Use Types Packs/Day Years [...] (2 of 3) 02/22/2022 022, 09/22/2021, 02/23/2015 Depression Screening 11/27/2024 Cholesterol Screening (Lipid Panel) 12/04/2024 Falls Risk Assessment 12/04/2024 Medicare Annual Wellness Visit 12/04/2024 Osteoporosis Screening (Bone Density Screening) 12/04/2024 Social Influencers of Health Screening 12/04/2024 COVID-19 Vaccine ( season) 2025 01/22/2024, 10/03/2022 Influenza Vaccine (#1) 2025 , 10/03/2022, 09/22/2021, Additional history exists Diabetes: Blood [...] Procedure Name Priority Date/Time Associated Diagnosis Comments COMPREHENSIVE METABOLIC PANEL Routine 02/24/2025 6:34 AM EDT Essential (primary) hypertension Type 2 diabetes mellitus without complications HEMOGLOBIN A1C Routine 02/24/2025 6:34 AM EDT Essential (primary) hypertension Type 2 diabetes mellitus without complications from Last 3 Months or Most Recently Relevant to Health Maintenance Results * Hemoglobin A1c (02/24/2025 6:34 AM EDT) Hemoglobin A1C 5.9 <6.5 % LAB CHEMISTRY [...] t [facility] [address] [place] [address], * (ABNORMAL) Comprehensive metabolic panel (02/24/2025 6:34 AM EDT) Sodium 142 133 - 145 mmol/L LAB CHEMISTRY METHOD 02/24/2025 12:24 PM EDT [facility] Potassium 4.1 3.5 - 5.5 mmol/L LAB CHEMISTRY METHOD 02/24/2025 12:24 PM [facility] Chloride 108 96 - 110 mmol/L LAB CHEMISTRY METHOD 02/24/2025 12:24 PM [facility] CO2 28 21 - 32 mmol/L LAB CHEMISTRY METHOD 02/24/2025 12:24 PM [facility] Anion Gap 6 3 - 11 LAB CHEMISTRY METHOD 02/24/2025 12:24 PM [facility] Glucose 91 70 - 100 mg/dL LAB CHEMISTRY METHOD 02/24/2025 12:24 PM [facility] BUN 30(H) 5 - 25 mg/dL LAB CHEMISTRY METHOD 02/24/2025 12:24 PM [facility] Creatinine 1.02 0.50 - 1.10 mg/dL LAB CHEMISTRY METHOD [facility]25 [facility] eGFR 53(L) >=60 mL/min/1. 73m2 LAB CHEMISTRY METHOD 02/24/2025 12:24 PM [facility] Comment:Calculation based on the Chronic Kidney Disease Epidemiology Collaboration (CKD-EPI) equation refit without adjustment for race. BUN/Creatinine Ratio 29.4 LAB CHEMISTRY METHOD 02/24/2025 12:24 PM [facility] Calcium 10.5 8.5 - 10.5 mg/dL LAB CHEMISTRY METHOD 02/24/2025 12:24 PM [facility] AST (SGOT) 31 10 - [...] PM EDT [facility] Albumin 3.1(L) 3.2 - 5.0 g/dL [...] t [facility] [address] [place] [address], from Last 3 Months or Most Recently Relevant to Health Maintenance Insurance [facility] MEDICARE Member Subscriber Plan / Payer (Ef fective 2019-Present) Name:Sienna Mendez Relation to Subscriber:Self Name:Sienna Mendez Payer ID:[id number] Group ID:[id number] Type:Not on file Address: [address] [place] [id number] Care Teams Accounts Supervisor Relationship Specialty Start Date End Date Tony Arreola MD [address] [place] [address] [address] [place], [phone] PCP - General Family Medicine 12/14/24
--- OUTSIDE RECORDS SUMMARY | 2025-08-11 05:54 | XMS_ITS | Encounter Summary ---
Author Organization [employer] Address [address] [facility] 7t [place] [address] Care Team Providers Care Enrolled Agent Name Role Phone Myah Singh MD Primary Care Provider [phone] Encounter Details Date Type Department Care Team ([facility] st Contact Info) Description 03/26/2025 Telephone [facility] MEDICINE [address] [place], [place] [phone] Myah Singh MD [address] [place], [place] [phone] Social History Tobacco Use Types Packs/Day Years [...] documented as of this encounter Care Teams Enrolled Agent Relationship Specialty Start Date End Date Myah Singh MD [address] [place] [address] PCP - General Family Medicine 11/08/12 [facility] 12/31/24 07/29/25 documented as of this encounter
--- OUTSIDE RECORDS SUMMARY | 2025-08-11 05:54 | XMS_ITS | Encounter Summary ---
Author Organization [facility] Address [address] [place] [address] Care Team Providers Care Operations Plant Attendant Name Role Phone Tony Arreola MD Primary Care Provider [phone] Encounter Details Date Type Department Care Team (Late st Contact Info) Description 02/24/2025 Lab Requisition [facility] - Main Lab [address] [facility] [place] [address] Venus Mayberry MD [address] [place], [place] [phone] Essential (primary) hypertension; Type 2 diabetes mellitus [...] * Vitamin B12 (02/24/2025 6:34 AM EDT) [facility] Vitamin B-12 324 250 - 900 pcg/mL LAB CHEMISTRY METHOD 02/24/2025 12:24 PM EDT [facility] Blood Venous blood specimen / Unknown Venipuncture / Unknown 02/24/2025 6:34 AM EDT 02/24/2025 10:44 AM EDT us Venus Mayberry MD LAB BLOOD ORDERABLES Final Resul t Performing Organization Address City/[facility]/ZIP Co de Phone Number [facility] [address] [place] [address], [place] [phone] * Folate (02/24/2025 6:34 AM EDT) [facility] Folate 11.3 2.8 - 17.0 ng/ml LAB CHEMISTRY METHOD 02/24/2025 12:24 PM EDT [facility] Blood Venous blood specimen / Unknown Venipuncture / Unknown 02/24/2025 6:34 AM EDT 02/24/2025 10:44 AM EDT us Venus Mayberry MD LAB BLOOD ORDERABLES Final Resul t Performing Organization Address City/[facility]/ZIP Co de Phone Number [facility] [address] [place] [address], [place] [phone] * (ABNORMAL) Vitamin D 25 hydroxy (02/24/2025 6:34 AM EDT) Pathologist [facility] [place] Vit D, 25-Hydroxy 29.9(L) 30.0 - 80.0 ng/mL LAB CHEMISTRY METHOD 02/24/2025 1:12 PM EDT [facility] Blood Venous blood specimen / Unknown Venipuncture / Unknown 02/24/2025 6:34 AM EDT 02/24/2025 10:44 AM EDT us Venus Mayberry MD LAB BLOOD ORDERABLES Final Resul t Performing Organization Address [facility] Co de Phone Number [facility] [address] [place] [address], * Thyroid stimulating hormone (02/24/2025 6:34 AM EDT) [facility] TSH 1.44 0.40 - 4.00 mcIU/mL LAB CHEMISTRY METHOD 02/24/2025 1:13 PM EDT [facility] Blood Venous blood specimen / Unknown Venipuncture / Unknown 02/24/2025 6:34 AM EDT 02/24/2025 10:44 AM EDT us Venus Mayberry MD LAB BLOOD ORDERABLES Final Resul t Performing Organization Address [facility] de Phone Number [facility] [address] [place] [address], [place] [phone] * Hemoglobin A1c (02/24/2025 6:34 AM EDT) [facility] Hemoglobin A1C 5.9 <6.5 % LAB CHEMISTRY METHOD 02/24/2025 9:29 PM EDT [facility] Mean Bld Glu Estim. 123 mg/dL LAB CHEMISTRY METHOD 02/24/2025 9:29 PM EDT [facility] Blood Venous blood specimen / Unknown Venipuncture / Unknown 02/24/2025 6:34 AM EDT 02/24/2025 10:44 AM EDT us Venus Mayberry MD LAB BLOOD ORDERABLES Final Resul t [facility] [address] [place] [address], [place] [phone] * (ABNORMAL) Comprehensive metabolic panel (02/24/2025 6:34 AM EDT) Sodium 142 133 - 145 mmol/L LAB CHEMISTRY METHOD 02/24/2025 12:24 PM EDT [facility] Potassium 4.1 3.5 - 5.5 mmol/L LAB CHEMISTRY METHOD 02/24/2025 12:24 PM [facility] Chloride 108 96 - 110 mmol/L LAB CHEMISTRY METHOD 02/24/2025 12:24 PM [facility] CO2 28 21 - 32 mmol/L LAB CHEMISTRY METHOD 02/24/2025 12:24 PM [facility] Anion Gap 6 3 - 11 LAB CHEMISTRY METHOD 02/24/2025 12:24 PM [facility] Glucose 91 70 - 100 mg/dL LAB CHEMISTRY METHOD 02/24/2025 12:24 PM [facility] BUN 30(H) 5 - 25 mg/dL LAB CHEMISTRY METHOD 02/24/2025 12:24 PM [facility] Creatinine 1.02 0.50 - 1.10 mg/dL LAB CHEMISTRY METHOD 02/24/2025 12:24 PM [facility] eGFR 53(L) >=60 mL/min/1. 73m2 LAB CHEMISTRY METHOD 02/24/2025 12:24 PM [facility] Comment:Calculation based on the Chronic Kidney Disease Epidemiology Collaboration (CKD-EPI) equation refit without adjustment for race. BUN/Creatinine Ratio 29.4 LAB CHEMISTRY METHOD 02/24/2025 12:24 PM [facility] Calcium 10.5 8.5 - 10.5 mg/dL LAB CHEMISTRY METHOD 02/24/2025 12:24 PM EDT [facility] AST (SGOT) 31 10 - 42 unit/L LAB CHEMISTRY METHOD 02/24/2025 12:24 PM EDT [facility] ALT (SGPT) 36 10 - 60 unit/L LAB CHEMISTRY METHOD 02/24/2025 12:24 PM EDT [facility] Alkaline Phosphatase 82 42 - 121 unit/L LAB CHEMISTRY METHOD 02/24/2025 12:24 PM EDT [facility] Total Protein 6.8 6.0 - 8.0 g/dL LAB CHEMISTRY METHOD 02/24/2025 12:[facility] Albumin 3.1(L) 3.2 - 5.0 g/dL LAB CHEMISTRY METHOD 02/24/2025 12:24 PM EDT [facility] Total Bilirubin 0.4 0.0 - 1.4 mg/dL LAB CHEMISTRY METHOD 02/24/2025 12:24 PM EDT [facility] Blood Venous blood specimen / Unknown Venipuncture / Unknown 02/24/2025 6:34 AM EDT 02/24/2025 10:44 AM EDT us Venus Mayberry MD LAB BLOOD ORDERABLES Final Resul t [facility] [address] [place] [address], * (ABNORMAL) Complete blood count (02/24/2025 6:34 AM EDT) WBC 6.0 4.8 - 10.8 K/mcL LAB HEMETOLOGY METHOD 02/24/2025 1:12 PM EDT [facility] RBC 4.80 3.80 - 4.80 M/mcL LAB HEMETOLOGY METHOD 02/24/2025 1:12 PM [facility] Hemoglobin 14.3 11.5 - 16.0 g/dL LAB HEMETOLOGY METHOD 02/24/2025 1:12 PM [facility] Hematocrit 45.6 35.0 - 47.0 % LAB HEMETOLOGY METHOD 02/24/2025 1:12 PM [facility] MCV 94.2 79.0 - 98.0 FL LAB HEMETOLOGY METHOD 02/24/2025 1:12 PM [facility] MCH 29.5 27.0 - 32.0 pcg LAB HEMETOLOGY METHOD 02/24/2025 1:12 PM [facility] MCHC 31.4(L) 32.0 - 37.0 g/dL LAB HEMETOLOGY METHOD 02/24/2025 1:12 PM [facility] RDW 14.7 11.0 - 15.0 % LAB HEMETOLOGY METHOD 02/24/2025 1:12 PM [facility] Platelets 154 130 - 400 K/mcL LAB HEMETOLOGY METHOD 02/24/2025 1:12 PM [facility] MPV 11.7(H) 7.0 - 11.0 FL LAB HEMETOLOGY METHOD 02/24/2025 1:12 PM [facility] NRBC 0.0 <1.0 % LAB HEMETOLOGY METHOD 02/24/2025 1:12 PM [facility] NRBC Absolute 0.00 <0.10 K/mcL LAB HEMETOLOGY METHOD 02/24/2025 1:12 PM [facility] Blood Venous blood specimen / Unknown Venipuncture / Unknown 02/24/2025 6:34 AM EDT 02/24/2025 10:44 AM EDT Venus Mayberry MD LAB BLOOD ORDERABLES Final Resul t [facility] [address] [place] [address], documented in this encounter Visit Diagnoses Diagnosis Essential (primary) hypertension Unspecified essential hypertension Type 2 diabetes mellitus without complications (CMS/HCC V24, CMS/HCC V28) documented in this encounter Care Teams Operations Plant Attendant Relationship Specialty Start Date End Date Tony Arreola MD [address] [place] [address], [phone] PCP - General Family Medicine 12/14/24 documented as of this encounter
--- OUTSIDE RECORDS SUMMARY | 2025-08-11 05:54 | XMS_ITS | Encounter Summary ---
Author Organization [facility] Address [address] [place] [address] Care Team Providers Care Rn Interventional Name Role Phone Tony Arreola MD Primary Care Provider [phone] Encounter Details Date Type Department Care Team (Late st Contact Info) Description 12/06/[address] [facility] - Main Lab [address] [place] [address] Tony Arreola MD [address] [facility] [address] [place], [phone] Weakness; Unspecified dementia, unspecified severity, without [...] mmol/L LAB CHEMISTRY METHOD 12/09/2024 3:01 PM [facility] Potassium 4.3 3.5 - 5.5 mmol/L LAB CHEMISTRY METHOD 12/09/2024 3:01 PM [facility] Chloride 110 96 - 110 mmol/L LAB CHEMISTRY METHOD 12/09/2024 3:01 PM [facility] CO2 28 21 - 32 mmol/L LAB CHEMISTRY METHOD 12/09/2024 3:01 PM [facility] Anion Gap 7 3 - 11 LAB CHEMISTRY METHOD 12/09/2024 3:01 PM [facility] Glucose 74 70 - 100 mg/dL LAB CHEMISTRY METHOD 12/09/2024 3:01 PM [facility] BUN 20 5 - 25 mg/dL LAB CHEMISTRY METHOD 12/09/2024 3:01 PM [facility] Creatinine 1.21(H) 0.50 - 1.10 mg/dL LAB CHEMISTRY METHOD 12/09/2024 3:01 PM [facility] eGFR 43(L) >=60 mL/min/1. 73m2 LAB CHEMISTRY METHOD 12/09/2024 3:01 PM [facility] Comment:Calculation based on the Chronic Kidney Disease Epidemiology Collaboration (CKD-EPI) equation refit without adjustment for race. BUN/Creatinine Ratio 16.5 LAB CHEMISTRY METHOD 12/09/2024 3:01 PM [facility] Calcium 9.4 8.5 - 10.5 mg/dL LAB CHEMISTRY METHOD 12/09/2024 3:01 PM [facility] Blood Venous blood specimen / Unknown Venipuncture / Unknown 12/09/2024 7:13 AM EST 12/09/2024 11:17 AM EST us Tony Arreola MD LAB BLOOD ORDERABLES Final Resul t [facility] [address] [place] [address], [place] [phone] * (ABNORMAL) Complete blood count (12/09/2024 7:13 AM EST) [facility] Signature WBC 6.9 4.8 - 10.8 K/mcL LAB HEMETOLOGY METHOD 12/09/2024 12:37 PM [facility] RBC 4.60 3.80 - 4.80 M/mcL LAB HEMETOLOGY METHOD 12/09/2024 12:37 PM [facility] Hemoglobin 13.3 11.5 - 16.0 g/dL LAB HEMETOLOGY METHOD 12/09/2024 12:37 PM [facility] Hematocrit 43.5 35.0 - 47.0 % LAB HEMETOLOGY METHOD 12/09/2024 12:37 PM [facility] MCV 94.8 79.0 - 98.0 FL LAB HEMETOLOGY METHOD 12/09/2024 12:37 PM [facility] MCH 29.0 27.0 - 32.0 pcg LAB HEMETOLOGY METHOD 12/09/2024 12:37 PM [facility] MCHC 30.6(L) 32.0 - 37.0 g/dL LAB HEMETOLOGY METHOD 12/09/2024 12:37 PM [facility] RDW 14.6 11.0 - 15.0 % LAB HEMETOLOGY METHOD 12/09/2024 12:37 PM [facility] Platelets 160 130 - 400 K/mcL LAB HEMETOLOGY METHOD 12/09/2024 12:37 PM [facility] MPV 12.2(H) 7.0 - 11.0 FL LAB HEMETOLOGY METHOD 12/09/2024 12:37 PM [facility] NRBC 0.0 <1.0 % LAB HEMETOLOGY METHOD 12/09/2024 12:37 PM [facility] NRBC Absolute 0.00 <0.10 K/mcL LAB HEMETOLOGY METHOD 12/09/2024 12:37 PM EST [facility] Blood Venous blood specimen / Unknown Venipuncture / Unknown 12/09/2024 7:13 AM EST 12/09/2024 11:17 AM EST us Tony Arreola MD LAB BLOOD ORDERABLES Final Resul t [facility] [address] [place] [address], documented in this encounter Visit Diagnoses Diagnosis Weakness Other malaise and fatigue Unspecified dementia, unspecified severity, without behavioral disturbance, psychotic disturbance, mood disturbance, and anxiety (CMS/HCC V24, CMS/HCC V28) documented in this encounter Care Teams Rn Interventional Relationship Specialty Start Date End Date Tony Arreola MD [address] [place] [address], [phone] PCP - General Family Medicine 12/14/24 documented as of this encounter
--- OUTSIDE RECORDS SUMMARY | 2025-08-11 05:54 | XMS_ITS | Encounter Summary ---
Author Organization [employer] Address [address] [place] [address] Care Team Providers Care Carbonizer Name Role Phone Tony Arreola MD Primary Care Provider Encounter Details Date Type Department Care Team (Late st Contact Info) Description 12/28/2024 Lab Requisition [facility] - Main Lab [address] [facility] [place] [address] Tony Arreola MD 38 [facility] [address] [place], [phone] Weakness; Unspecified dementia, unspecified severity, without [...] V28) documented in this encounter Care Teams Carbonizer Relationship Specialty Start Date End Date Tony Arreola MD [address] [facility] [address] [place], [phone] PCP - General Family Medicine 12/14/24 documented as of this encounter
--- OUTSIDE RECORDS SUMMARY | 2025-08-11 05:54 | XMS_ITS | Encounter Summary ---
Author Organization [employer] Address [address] [facility] 7t [place] [address] Care Team Providers Care Woods Overseer Name Role Phone Myah Singh MD Primary Care Provider [phone] Reason for Visit * Reason Comments Med Refill Encounter Details Date Type Department Care Team (Late st Contact Info) Description 11/29/2023 Refill [facility] PEDS [address] [place], [place] [phone] Myah Singh MD [address] [place], [place] [phone] Vitamin D deficiency Social History Tobacco Use [...] documented as of this encounter Care Teams Woods Overseer Relationship Specialty Start Date End Date Myah Singh MD [address] [place] [address] PCP - General Family Medicine 11/08/12 [facility] [address] 12/31/24 07/29/25 documented as of this encounter
--- OUTSIDE RECORDS SUMMARY | 2025-08-11 05:54 | XMS_ITS | Patient Health Record ---
Author Organization [facility] Address [address] [place] [address] Care Team Providers Care Jewelry Store Manager Name Role Phone Samantha GARCIA, Myah Primary Care Provider Cali Bailey [phone] Allergies Allergen (clinical drug ingredient) Drug/Non Drug [...] Problem Status W/U Status Risk Notes Problem 423407292 Gastroesophageal reflux disease without esophagitis (K21.9) Active confirmed Problem [id number] Elevated liver enzymes (R74.8) Active confirmed Problem 24170573 Constipation, unspecified constipation type (K59.00) Active confirmed Plan Of Treatment Pending Test Test Name Order Date LIVER PROFILE 04/06/2016 Insurance Providers Payer Name Payer Address Payer Phone Subscriber Number Group Number Insured Name Patient Relationship to Insured Coverage Start Date Coverage End Date [facility] [address] [place] [address] [id number] ZITA PAPPAS Self - patient is the insured MEDICARE OF [facility] [place] [address] [place] [address] [id number] ZITA PAPPAS Self - patient is the insured Medical (General) History Medical History History ICD Code GERD--UPPER ENDOSCOPY & COLO NOSCOPY IN 2007--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
--- OUTSIDE RECORDS SUMMARY | 2025-08-11 05:54 | XMS_ITS | Encounter Summary ---
Author Organization [employer] Address [address] [facility] 7t [place] [address] Care Team Providers Care Service Administrator Name Role Phone Myah Singh MD Primary Care Provider [phone] Reason for Visit * Reason Comments Med Refill Encounter Details Date Type Department Care Team (Late st Contact Info) Description 08/09/2025 Refill [facility] MEDICINE [address] [place], [place] [phone] Myah Singh MD [address] [place], [place] [phone] Social History Tobacco Use Types Packs/Day Years [...] documented as of this encounter Care Teams Service Administrator Relationship Specialty Start Date End Date Myah Singh MD [address] [place] [address] PCP - General Family Medicine 11/08/12 documented as of this encounter
--- OUTSIDE RECORDS SUMMARY | 2025-08-11 05:54 | XMS_ITS | Encounter Summary ---
Author Organization [facility] Address [address] [place] [address] Care Team Providers Care Supervisor Inspection Room Name Role Phone Tony Arreola MD Primary Care Provider [phone] Encounter Details Date Type Department Care Team (Late st Contact Info) Description 12/14/2024 Lab Requisition [facility] - Main Lab [address] [place] [address] Tony Arreola MD 38 [facility] [address] [place], [phone] Weakness; Unspecified dementia, unspecified severity, without [...] mmol/L LAB CHEMISTRY METHOD 12/16/2024 1:55 PM [facility] Potassium 4.1 3.5 - 5.5 mmol/L LAB CHEMISTRY METHOD 12/16/2024 1:55 PM [facility] Chloride 113(H) 96 - 110 mmol/L LAB CHEMISTRY METHOD 12/16/2024 1:55 PM [facility] CO2 28 21 - 32 mmol/L LAB CHEMISTRY METHOD 12/16/2024 1:55 PM [facility] Anion Gap 5 3 - 11 LAB CHEMISTRY METHOD 12/16/2024 1:55 PM [facility] Glucose 88 70 - 100 mg/dL LAB CHEMISTRY METHOD 12/16/2024 1:55 PM [facility] BUN 25 5 - 25 mg/dL LAB CHEMISTRY METHOD 12/16/2024 1:55 PM [facility] Creatinine 1.26(H) 0.50 - 1.10 mg/dL LAB CHEMISTRY METHOD 12/16/2024 1:55 PM [facility] eGFR 41(L) >=60 mL/min/1. 73m2 LAB CHEMISTRY METHOD 12/16/2024 1:55 PM [facility] Comment:Calculation based on the Chronic Kidney Disease Epidemiology Collaboration (CKD-EPI) equation refit without adjustment for race. BUN/Creatinine Ratio 19.8 LAB CHEMISTRY METHOD 12/16/2024 1:55 PM [facility] Calcium 9.3 8.5 - 10.5 mg/dL LAB CHEMISTRY METHOD 12/16/2024 1:55 PM [facility] Blood Venous blood specimen / Unknown Venipuncture / Unknown 12/16/2024 7:20 AM EST 12/16/2024 11:32 AM EST us Tony Arreola MD LAB BLOOD ORDERABLES Final Resul t [facility] [address] [place] [address], [place] [phone] * (ABNORMAL) Complete blood count (12/16/2024 7:20 AM EST) [facility] WBC 5.4 4.8 - 10.8 K/mcL LAB HEMETOLOGY METHOD 12/16/2024 12:51 PM [facility] RBC 4.60 3.80 - 4.80 M/mcL LAB HEMETOLOGY METHOD 12/16/2024 12:51 PM [facility] Hemoglobin 13.4 11.5 - 16.0 g/dL LAB HEMETOLOGY METHOD 12/16/2024 12:51 PM [facility] Hematocrit 43.8 35.0 - 47.0 % LAB HEMETOLOGY METHOD 12/16/2024 12:51 PM [facility] MCV 95.8 79.0 - 98.0 FL LAB HEMETOLOGY METHOD 12/16/2024 12:51 PM [facility] MCH 29.3 27.0 - 32.0 pcg LAB HEMETOLOGY METHOD 12/16/2024 12:51 PM [facility] MCHC 30.6(L) 32.0 - 37.0 g/dL LAB HEMETOLOGY METHOD 12/16/2024 12:51 PM [facility] RDW 14.9 11.0 - 15.0 % LAB HEMETOLOGY METHOD 12/16/2024 12:51 PM [facility] Platelets 135 130 - 400 K/mcL LAB HEMETOLOGY METHOD 12/16/2024 12:51 PM [facility] MPV 12.3(H) 7.0 - 11.0 FL LAB HEMETOLOGY METHOD 12/16/2024 12:51 PM [facility] NRBC 0.0 <1.0 % LAB HEMETOLOGY METHOD 12/16/2024 12:51 PM [facility] NRBC Absolute 0.00 <0.10 K/mcL LAB HEMETOLOGY METHOD 12/16/2024 12:51 PM EST [facility] Blood Venous blood specimen / Unknown Venipuncture / Unknown 12/16/2024 7:20 AM EST 12/16/2024 11:32 AM EST us Tony Arreola MD LAB BLOOD ORDERABLES Final Resul t [facility] ([facility] [address] [place] [address], documented in this encounter Visit Diagnoses Diagnosis Weakness Other malaise and fatigue Unspecified dementia, unspecified severity, without behavioral disturbance, psychotic disturbance, mood disturbance, and anxiety (CMS/HCC V24, CMS/HCC V28) documented in this encounter Care Teams Supervisor Inspection Room Relationship Specialty Start Date End Date Tony Arreola MD [address] [place] [address] [address] [place], [phone] PCP - General Family Medicine 12/14/24 documented as of this encounter
--- OUTSIDE RECORDS SUMMARY | 2025-08-11 05:54 | XMS_ITS | Clinical Summary ---
Author Organization [employer] Address [address] [facility] 7t [place] [address] Care Team Providers Care Buckle Strap Puncher Name Role Phone Myah Singh MD Primary Care Provider [phone] Allergies Active Allergy Reactions Criticality Noted Date Comments Benzocaine 06/25/2014 Butamben 06/25/2014 Ceftazidime 01/03/2018 Metoclopramide 01/03/2018 Morphine Other reaction(s): unspecified Tetracaine 06/25/2014 Medications Ventolin HFA 108 (90 Base) MCG/ACT inhaler INHALE 2 PUFFS EVERY 6 HOURS NEEDED FOR SHORTNESS OF BREATH OR WHEEZING 09/16/20 22 Active Blood Glucose Monitoring Suppl (FreeStyle Lite) [...] complication, without long-term current use of insulin ([facility]) INJECT 1 BY INTO MACHINE ROUTE EVERY [...] PM EDT): -Oct 2015 -Previously following with [facility], upcoming appt -Continue risk factor mangement Assessment & Plan (01/07/2023 4:34 PM EST): -Oct 2015 -Previously following with [facility], upcoming appt -Continue risk factor mangement [...] cm2. Mild aortic valve regurgitation. -Seen by research test engine evaluator, Dr. Garcia in [facility], on 07/27/23, since she is not a [...] cm2. Mild aortic valve regurgitation. -Seen by research test engine evaluator, Dr. Garcia in [facility], on 07/27/23, since she is not a [...] cm2. Mild aortic valve regurgitation. -Seen by research test engine evaluator, Dr. Garcia in [facility], on 07/27/23, since she is not a [...] -Pt has an upcoming appt with her research test engine evaluator Assessment & Plan (01/07/2023 5:17 PM EST): - Most recent TTE 10/14/22: There is mild calcification of the aortic valve. There is moderate aortic valve stenosis. The peak aortic gradient is 33 mmHg.The mean gradient is 16 mmHg. There is mild aortic valve regurgitation. -Pt has loud murmur consistent with aortic stenosis -NSTEMI in 2014 -Pt has an upcoming appt with her research test engine evaluator Anemia 01/07/2023 Assessment & Plan (01/07/2023 5:24 PM EST): - anemia of chronic disease (CKD, cirrhosis) - continue ferrous sulfate - check lab Diabetes mellitus, type 2 12/28/2022 Overview (04/07/2025): Frequent utis from jardiance Assessment & Plan (05/06/2025 11:29 AM EDT): Blood sugars are in range (90-110)without jardance, pt grandaughter and NATIONAL EXPANSION RECRUITER deny any swelling, sob, orthopnea edema or [...] Plan (01/17/2025 5:56 AM EST): -Following with [facility], last seen in January [...] was seeing psychiatrist [facility] -work on risk factor management -reviewed safety [...] Risk: CKD, age, NSTEMI, Hx CVA/TIA, DM2 -Fruit Or Nut Farm Worker: Previously [facility] pt has a new appt on 01/23/23 [...] Risk: CKD, age, NSTEMI, Hx CVA/TIA, DM2 -Fruit Or Nut Farm Worker: Previously [facility] pt has a new appt on 01/23/23 [...] Risk: CKD, age, NSTEMI, Hx CVA/TIA, DM2 -Fruit Or Nut Farm Worker: Previously [facility], pt has a new appt on 01/23/23 [...] Risk: CKD, age, NSTEMI, Hx CVA/TIA, DM2 -Fruit Or Nut Farm Worker: Previously [facility], pt has a new appt on 01/23/23 [...] Risk: CKD, age, NSTEMI, Hx CVA/TIA, DM2 -Fruit Or Nut Farm Worker: Previously [facility], pt has a new appt on 01/23/23 [...] use - Followed by [facility], last seen in Jun 2024 - Treatment Hx: Tried oxybutynin, which was discontinued due to anticholinergic effect. Gemtesa was prohibitory expensive - Continue mirabegron as prescribed, advised to have drug holiday from mirabegron, resume when pt's symptoms worsen Assessment & Plan (02/04/2024 1:12 PM EDT): - in a setting of dementia, DM2, and SGLT-2 inhibitor use - Followed by [facility], last seen in November 2023 - Treatment Hx: Tried oxybutynin, which was discontinued due to anticholinergic effect. Gemtesa was not approved - Continue mirabegron as prescribed, advised to have drug holiday from mirabegron, resume when pt's symptoms worsen Assessment & Plan (09/10/2023 4:55 PM EDT): - in a setting of dementia, DM2, and SGLT-2 inhibitor use - Followed by [facility], last seen on 05/31/23. - Continue mirabegron as prescribed, advised to have drug holiday from mirabegron, resume when pt's symptoms worsen Assessment & Plan (05/08/2023 11:04 AM EDT): - in a setting of dementia, DM2, and SGLT-2 inhibitor use - Followed by Dr. Vallecillo, [facility] - Continue mirabegron as prescribed Assessment & Plan (01/07/2023 4:51 PM EST): - in a setting of dementia, DM2, and SGLT-2 inhibitor use - Followed by Dr. Vallecillo, [facility] - Continue mirabegron as prescribed Recurrent urinary [...] Assessment & Plan (01/17/2025 6:08 AM EST): -Team Otr Truck Driver: Dr. Martinez -Avoid nephrotoxic drugs and use renal dosing. -Recheck renal function today -On Jardiance, at low-dose, 10mg daily. Caution with UTI Assessment & Plan (02/04/2024 1:13 PM EDT): -Team Otr Truck Driver: Dr. Martinez -Baseline: 09/26/22 BUN 29; SCr 1.2, eGFR 43, AST 12, ALT 19, AP 91 -Avoid nephrotoxic drugs and use renal dosing. -Recheck renal function today -On Jardiance, at low-dose, 10mg daily. Assessment & Plan (09/10/2023 4:32 PM EDT): -Team Otr Truck Driver: Dr. Martinez, last seen in 2017 or 2018. Per caregiver, pt was discharged due to stability -Baseline: 09/26/22 BUN 29; SCr 1.2, eGFR 43, AST 12, ALT 19, AP 91 -Avoid nephrotoxic drugs and use renal dosing. -Recheck renal function today -On Jardiance, at low-dose, 10mg daily. Assessment & Plan (05/08/2023 11:04 AM EDT): -Team Otr Truck Driver: Dr. Martinez, last seen in 2016 or 2018. Per caregiver, pt was discharged due to stability -Baseline: 09/26/22 BUN 29; SCr 1.2, eGFR 43, AST 12, ALT 19, AP 91 -Avoid nephrotoxic drugs and use renal dosing. -Recheck renal function today -On Jardiance, at low-dose, 10mg daily. Assessment & Plan (01/07/2023 4:54 PM EST): -Team Otr Truck Driver: Dr. Martinez, last seen in 2017 or [...] Encounters Date Type Department Care Team Description 08/09/2025 Refill [facility] [address] [place] [address] Myah Singh MD 08/07/2025 Orders Only GENERIC EXTERNAL DATA DEPARTMENT Provider, Generic External Data 08/04/2025 Refill [facility] [address] [place] [address] Myah Singh MD Type 2 diabetes mellitus with stage 3 chronic kidney disease, without long-term current use of insulin, unspecified whether stage 3a or 3b CKD ([facility]) 07/21/2025 Refill [facility] [address] [place] [address] Liliana Sears MD 07/21/2025 Refill [facility] [address] [place] [address] Myah Singh MD Allergic rhinitis, unspecified seasonality, unspecified trigger 07/10/2025 Telephone [facility] [address] [place] [address] Myah Singh MD Durable Medical Equipment (DME: Multiple Items) 05/28/2025 Refill [facility] [address] [place] [address] Myah Singh MD Primary hypertension from Last 3 Months Immunizations Immunization Administration [...] series) 2011 Depression Screening 05/08/2024 05/08/2023, 05/08/20 23 SDOH Screening 05/08/2024 05/08/2023 Lipid Panel 01/22/2025 01/22/2024, 02/12/2022, 12/28/2021 COVID-19 Vaccine ( season) 2025 01/22/2024, [...] Procedure Name Priority Date/Time Associated Diagnosis Comments GLUCOSE, WHOLE BLOOD Routine 08/07/2025 12:20 PM EDT SARS COV2/INFLUENZA A/B AND RSV RNA QL NAAT Routine 08/07/2025 8:48 AM EDT LIPID PANEL WITH REFLEX TO DIRECT LDL Routine 01/22/2024 12:20 PM EST Type 2 diabetes mellitus with stage 3 chronic kidney disease, without long-term current use of insulin, unspecified whether stage 3a or 3b CKD ([facility]) Dyslipidemia POCT GLYCOSYLATED HEMOGLOBIN (HGB A1C) Routine 09/11/2023 10:29 AM EDT Type 2 diabetes mellitus with stage 3 chronic kidney disease, without long-term current use of insulin, unspecified whether stage 3a or 3b CKD (CMS/HCC) from Last 3 Months or Most Recently Relevant to Health Maintenance Results * Glucose, Whole Blood (08/07/2025 12:20 PM EDT) Glucose, Whole Blood 90 60 - 115 mg/dL [facility] Comment:METER #: [id number] 08/07/2025 12:2 0 PM EDT 08/07/2025 4:35 PM EDT Generic External Data Provider LAB BLOOD ORDERAB LES Final Result Performing Organization Address [facility]/ZIP Co de Phone Number [facility] [address] [place] [phone] * SARS-CoV-2 RNA, Influenza A/B, and RSV RNA, Ql NAAT (08/07/2025 8:48 AM EDT) Pathologist [facility] Influenza A PCR NEGATIVE Negative [facility] Influenza B PCR NEGATIVE Negative [facility] Resp Syncy Virus RNA Qual PCR NEGATIVE Negative [facility] SARS COV2 PCR NEGATIVE Negative [facility] Comment:All test results mus t be correlated with clinical findings.Negative results do not preclude SARS-CoV2, influenza Avirus, influenza B virus and/or RSV infectionand should not be used as the sole basis for treatment orother patient management decisions. Negative results must becombined with clinical observations, patient history, andepidemiological information.This test has not been evaluated for monitoring treatment ofinfection.This test has been authorized by the FDA under an EmergencyUse Authorization (EUA) for use by authorized laboratories.Testing performed on the [employer] GeneXpert utilizingreal-time RT-PCR.All SARS CoV2 and positive influenza A/B results arereported to [facility]. 08/07/2025 8:48 AM EDT 08/07/2025 8:51 AM EDT Generic External Data Provider LAB MICROBIOLOGY - GENERAL ORDERABLES Final Result Performing Organization Address City/[facility]/ZIP Co de Phone Number [facility] [address] [place] [phone] * Lipid Panel with Reflex to Direct LDL (01/22/2024 12:20 PM EST) Triglycerides 130 <150 mg/dL [facility] Comment:Desirable Triglyceri de: less than 150 mg/dLBorderline High Triglyceride 150-199 mg/dLHigh Triglyceride: 200-499 mg/dLVery High Triglyceride: greater than or equal to 5OO mg/dL Cholesterol 109 <200 mg/dL [facility] Comment:Desirable Cholestero l: less than 200 mg/dLBorderline High Cholesterol: 200-239 mg/dLHigh Cholesterol: greater than 239 mg/dL LDL Cholesterol Calculated 41 <100 mg/dL [facility] Comment:Desirable LDL: less than 100 mg/dLNear Optimal/Above Optimal LDL: 110- 129 mg/dLBorderline High LDL: 130-159 mg/dLHigh LDL: 160-189 mg/dLVery High LDL: greater than or equal to 190 mg/dL HDL Cholesterol 42 >40 mg/dL [facility] Comment:Desirable HDL: great er than 40 mg/dL Note: This HDL assay may give artificially low results in patients with liver disease. Blood 01/22/2024 12:2 0 PM EST 01/22/2024 1:11 PM EST us Myah Singh MD LAB BLOOD ORDERABLES Final Resul t [facility] [address] [place] [phone] * (ABNORMAL) POCT glycosylated hemoglobin (Hgb A1c) (09/11/2023 10:29 AM EDT) Hemoglobin A1C 6.2(A) 4.0 - 6.0 % QC Media Lot # [id number] Lot# Expiration Date Blood Capillary blood specimen / Unknown 09/11/2023 10:29 AM EDT us Myah Singh MD POINT OF CARE TEST ENTER/EDIT OR DERABLES Final Result from Last 3 Months or Most Recently Relevant to Health Maintenance Insurance [facility] LONGTERM OPTIONS (O D-SNP) [employer] [id number] Care Teams Buckle Strap Puncher Relationship Specialty Start Date End Date Myah Singh MD [address] [place] [address] [place] [address] PCP - General Family Medicine 11/08/12
--- OUTSIDE RECORDS SUMMARY | 2025-08-11 05:54 | XMS_ITS | Encounter Summary ---
Author Organization [employer] Address [address] [place] [address] Care Team Providers Care Pet Caretaker Name Role Phone Tony Arreola MD Primary Care Provider [phone] Encounter Details Date Type Department Care Team (Late st Contact Info) Description 12/21/2024 Lab Requisition [facility] - Main Lab [address] [place] [address] Tony Arreola MD [address] [facility] [address] [place], [phone] Weakness; Unspecified dementia, unspecified severity, without [...] mmol/L LAB CHEMISTRY METHOD 12/23/2024 12:53 PM [facility] Potassium 4.2 3.5 - 5.5 mmol/L LAB CHEMISTRY METHOD 12/23/2024 12:53 PM [facility] Chloride 111(H) 96 - 110 mmol/L LAB CHEMISTRY METHOD 12/23/2024 12:53 PM [facility] CO2 28 21 - 32 mmol/L LAB CHEMISTRY METHOD 12/23/2024 12:53 PM [facility] Anion Gap 5 3 - 11 LAB CHEMISTRY METHOD 12/23/2024 12:53 PM [facility] Glucose 84 70 - 100 mg/dL LAB CHEMISTRY METHOD 12/23/2024 12:53 PM [facility] BUN 22 5 - 25 mg/dL LAB CHEMISTRY METHOD 12/23/2024 12:53 PM [facility] Creatinine 1.25(H) 0.50 - 1.10 mg/dL LAB CHEMISTRY METHOD 12/23/2024 12:53 PM [facility] eGFR 42(L) >=60 mL/min/1. 73m2 LAB CHEMISTRY METHOD 12/23/2024 12:53 PM [facility] Comment:Calculation based on the Chronic Kidney Disease Epidemiology Collaboration (CKD-EPI) equation refit without adjustment for race. BUN/Creatinine Ratio 17.6 LAB CHEMISTRY METHOD 12/23/2024 12:53 PM [facility] Calcium 9.3 8.5 - 10.5 mg/dL LAB CHEMISTRY METHOD 12/23/2024 12:53 PM [facility] Blood Venous blood specimen / Unknown Venipuncture / Unknown 12/23/2024 6:50 AM EST 12/23/2024 10:55 AM EST us Tony Arreola MD LAB BLOOD ORDERABLES Final Resul t [facility] [address] [place] [address], * (ABNORMAL) Complete blood count (12/23/2024 6:50 AM EST) [facility] WBC 6.0 4.8 - 10.8 K/mcL LAB HEMETOLOGY METHOD 12/23/2024 12:49 PM [facility] RBC 4.70 3.80 - 4.80 M/mcL LAB HEMETOLOGY METHOD 12/23/2024 12:49 PM [facility] Hemoglobin 13.4 11.5 - 16.0 g/dL LAB HEMETOLOGY METHOD 12/23/2024 12:49 PM [facility] Hematocrit 43.6 35.0 - 47.0 % LAB HEMETOLOGY METHOD 12/23/2024 12:49 PM [facility] MCV 93.6 79.0 - 98.0 FL LAB HEMETOLOGY METHOD 12/23/2024 12:49 PM [facility] MCH 28.8 27.0 - 32.0 pcg LAB HEMETOLOGY METHOD 12/23/2024 12:49 PM [facility] MCHC 30.7(L) 32.0 - 37.0 g/dL LAB HEMETOLOGY METHOD 12/23/2024 12:49 PM [facility] RDW 14.8 11.0 - 15.0 % LAB HEMETOLOGY METHOD 12/23/2024 12:49 PM [facility] Platelets 142 130 - 400 K/mcL LAB HEMETOLOGY METHOD 12/23/2024 12:49 PM [facility] MPV 12.0(H) 7.0 - 11.0 FL LAB HEMETOLOGY METHOD 12/23/2024 12:49 PM [facility] NRBC 0.0 <1.0 % LAB HEMETOLOGY METHOD 12/23/2024 12:49 PM [facility] NRBC Absolute 0.00 <0.10 K/mcL LAB HEMETOLOGY METHOD 12/23/2024 12:49 PM EST [facility] Blood Venous blood specimen / Unknown Venipuncture / Unknown 12/23/2024 6:50 AM EST 12/23/2024 10:55 AM EST Tony Arreola MD LAB BLOOD ORDERABLES Final Resul t [facility] [address] [place] [address], documented in this encounter Visit Diagnoses Diagnosis Weakness Other malaise and fatigue Unspecified dementia, unspecified severity, without behavioral disturbance, psychotic disturbance, mood disturbance, and anxiety (CMS/HCC V24, CMS/HCC V28) documented in this encounter Care Teams Pet Caretaker Relationship Specialty Start Date End Date Tony Arreola MD [address] [place] [address], [phone] PCP - General Family Medicine 12/14/24 documented as of this encounter
--- OUTSIDE RECORDS SUMMARY | 2025-08-11 05:54 | XMS_ITS | Encounter Summary ---
Author Organization [employer] Address [address] [place] [address] [address] [place] [address] Care Team Providers Care Global Chief Creative Officer Name Role Phone Myah Singh MD Primary Care Provider [phone] Reason for Visit * Reason Onset Date Comments Durable Medical Equipment 01/30/2023 Encounter Details Date Type Department Care Team (Late st Contact Info) Description 01/30/[address] [facility] MEDICINE [address] [place], [place] [phone] Myah Singh MD [address] [place], [place] [phone] Durable Medical Equipment Social History Tobacco Use [...] call me or CHACE Beltran also patient EDUCATION PROGRAM ASSOCIATE can call them as they are the vendor for more information [phone] * Telephone Encounter - Uriahchadshy Rodriguezmahad Marion - 01/30/2023 10:00 AM EST Tc from pt EDUCATION PROGRAM ASSOCIATE Jonathan stating that for the last two months pt Large Pull ups and Wipes have not been deliver Please contact jonathan at [phone] documented in this encounter Plan of Treatment Not on file documented as of this encounter Visit Diagnoses Not on filedocumented in this encounter Care Teams Global Chief Creative Officer Relationship Specialty Start Date End Date Myah Singh MD [address] [place] [phone] PCP - General Family Medicine 11/08/12 [facility] 12/31/24 07/29/25 documented as of this encounter
--- OUTSIDE RECORDS SUMMARY | 2025-08-11 05:54 | XMS_ITS | Encounter Summary ---
Author Organization [employer] Address [address] [facility] [address]t [place] [address] Care Team Providers Care Tabulating Clerk Name Role Phone Myah Singh MD Primary Care Provider [phone] Reason for Visit * Reason Comments Med Refill Encounter Details Date Type Department Care Team (Late st Contact Info) Description 10/22/2024 Refill [facility] [address] [place], [place] [phone] Myah Singh MD [address] [place], [place] [phone] Allergic rhinitis, unspecified seasonality, unspecified trigger Social [...] documented as of this encounter Care Teams Tabulating Clerk Relationship Specialty Start Date End Date Myah Singh MD [address] [place] [address] PCP - General Family Medicine 11/08/12 [facility] 12/31/24 07/29/25 documented as of this encounter
--- OUTSIDE RECORDS SUMMARY | 2025-08-11 05:54 | XMS_ITS | Encounter Summary ---
Author Organization [employer] Address [address] [facility] [address]t [place] [address] Care Team Providers Care Roller Embosser Name Role Phone Myah Singh MD Primary Care Provider [phone] Reason for Visit * Reason Comments Med Refill Encounter Details Date Type Department Care Team (Late st Contact Info) Description 05/22/2024 Refill [facility] [address] [place], [place] [phone] Myah Singh MD [address] [place], [place] [phone] Social History Tobacco Use Types Packs/Day Years [...] documented as of this encounter Care Teams Roller Embosser Relationship Specialty Start Date End Date Myah Singh MD [address] [place] [address] PCP - General Family Medicine 11/08/12 [facility] 12/31/24 07/29/25 documented as of this encounter
--- OUTSIDE RECORDS SUMMARY | 2025-08-11 05:54 | XMS_ITS | Encounter Summary ---
Author Organization [employer] Address [address] [facility] [address]t [place] [address] Care Team Providers Care Cuff Slitter Name Role Phone Myah Singh MD Primary Care Provider [phone] Encounter Details Date Type Department Care Team (Late st Contact Info) Description 08/07/2025 Orders Only GENERIC EXTERNAL DATA DEPARTMENT Provider, Generic External Data Social History Tobacco Use Types Packs/Day Years Used Date Smoking Tobacco: Former Cigarettes Smokeless Tobacco: Former Depression Answer Date Recorded Patient Health Questionnaire-9 Score 0 05/08/2023 Housing Stability Answer Date Recorded What is your housing situation today? I have maryansyl bell 09/10/[address] you [...] QL NAAT Routine 08/07/2025 8:48 AM EDT documented in this encounter Results * Glucose, Whole Blood (08/07/2025 12:20 PM EDT) Glucose, Whole Blood 90 60 - 115 mg/dL [facility] Comment:METER #: [id number] 08/07/2025 12:2 0 PM EDT 08/07/2025 4:35 PM EDT us Generic External Data Provider LAB BLOOD ORDERAB LES Final Result [facility] [address] [place] [address] [phone] * SARS-CoV-2 RNA, Influenza A/B, and RSV RNA, Ql NAAT (08/07/2025 8:48 AM EDT) Influenza A PCR NEGATIVE Negative [facility] Influenza B PCR NEGATIVE Negative [facility] Resp Syncy Virus RNA Qual PCR NEGATIVE Negative [facility] SARS COV2 PCR NEGATIVE Negative [facility] Comment:All test results mus t [...] use by authorized laboratories.Testing performed on the [email or web address] GeneXpert utilizingreal-time RT-PCR.All SARS CoV2 and positive influenza A/B results arereported to [facility]. 08/07/2025 8:48 AM EDT 08/07/2025 8:51 AM EDT us Generic External Data Provider LAB MICROBIOLOGY - GENERAL ORDERABLES Final Result [facility] [address] [place] [phone] documented in this encounter Visit Diagnoses Not on filedocumented in this encounter Additional Health Concerns Assessment Noted Time PHQ-9 Depression Total Score: 0 05/08/20 23 10:25 AM EDT documented as of this encounter Care Teams Cuff Slitter Relationship Specialty Start Date End Date Myah Singh MD [address] [place] [address] PCP - General Family Medicine 11/08/12 documented as of this encounter
[2025-08-11 06:25] LABS: Hematocrit 38.4 % (37.0-47.0); Hemoglobin 12.4 g/dl (12.0-16.0); Imm Gran Abs Auto 0.02 X10*3/uL (0.00-0.03); Imm Gran Pct Auto 0.3 % (0.0-0.4); Lymphocytes Absolute Auto 1.1 X10*3/uL (1.2-4.9); Mean Corpuscular HGB Conc 32.3 g/dl (31.0-35.0); Mean Corpuscular Hemoglobin 28.8 pg (27.0-33.0); Mean Corpuscular Volume 89.3 fL (80.0-98.0); NRBC Abs Auto 0.000 X10*3/uL (0.0-0.012); NRBC Pct Auto 0.0 /100WBC (0.0-0.2); Platelet Count 133 X10*3/uL (160-400); Red Blood Count 4.30 X10*6/uL (4.20-5.50); White Blood Count 6.5 X10*3/uL (4.8-10.8)
[2025-08-11 06:30] LABS: Hemoglobin A1C 136.2708 umol/L; Total Hemoglobin (HGBA1C) 3230.3967 umol/L
[2025-08-11 06:53] LABS: Alanine Aminotransferase 26 U/L (0-31); Albumin Level 3.2 g/dL (3.5-5.0); Alkaline Phosphatase 73 U/L (39-117); Anion Gap 11 (12-20); Aspartate Amino Transferase 27 U/L (5-31); Blood Urea Nitrogen 42 mg/dL (9-16); Calcium 9.3 mg/dL (8.4-10.2); Carbon Dioxide 20 mmol/L (22-29); Chloride 114 mmol/L (96-108); Estimated Glomerular Filt Rate 27; Potassium 4.2 mmol/L (3.3-5.1); Sodium 141 mmol/L (135-145); Total Protein 6.3 g/dL (6.5-8.0)
== END 2025-08-11 05:47 | disposition home or self-care (01) ==
LOC: HO.MMNH2L 05:46
PROVIDERS: Visit Provider Student in an Organized Health Care Education/Training Program
DX: I10 Essential (primary) hypertension (principal); K21.9 Gastro-esophageal reflux disease without esophagitis; F32.A Depression, unspecified; Z13.1 Encounter for screening for diabetes mellitus
CPT/HCPCS: 36415; 80053; 83036; 85025

== ENCOUNTER 2025-08-12 10:53 | Outpatient (REF) | payer OTHER, SELFPAY ==
--- NOTE | ~2025-08-12 | XR_ITS ---
EXAMINATION: XR WRIST, RIGHT CLINICAL INFORMATION: M25.531 - Pain in right wrist COMPARISON: 08/07/2025, 08/06/2025. TECHNIQUE: PA, lateral, and oblique views of the right wrist. FINDINGS: Casting material overlies the right wrist, obscuring fine bony detail. There is osteopenia. Redemonstration of comminuted intra-articular fracture of the distal radius, essentially in anatomic alignment. No significant articular step off present. Fracture line still well defined without gross healing evident. No additional fracture or suspicious bone lesion. Normal carpal alignment. There is persistent circumferential soft tissue swelling. XR/XR wrist RT min 3V IMPRESSION: Minimally displaced intra-articular comminuted distal radial fracture in gross anatomical alignment. No significant interval change from 08/07/2025. Electronically signed by: J Carlos Walker MD 08/13/2025 08:49 AM EDT
== END 2025-08-12 10:54 | disposition home or self-care (01) ==
LOC: HO.HOSX 10:53
PROVIDERS: Visit Provider Orthopaedic Surgery
DX: M25.531 Pain in right wrist (principal)
CPT/HCPCS: 73110

== ENCOUNTER 2025-08-13 08:14 | Outpatient (AMB) | payer OTHER, SELFPAY ==
--- NOTE | 2025-08-13 08:35 | MHC.OFFVIS ---
Intake Visit Reasons: ER FU-Closed fracture of right wrist Intake Note: Sienna 89 yr old right hand dominant female presents today with her grand daughter Elena who is also her proxy, for a ED follow up visit. Elena states patient was seen in ED for a UTI on 08/06/25, and at discharge patient was not stable to walk, ED advise to have patient stay over night for observation. Elena was called later on that night and was informed patient had fallen out of bed and injured her hand. Hx of dementia and alzheimer's . Patient presents today in a stretcher and her hand in sugar tong splint. Patient mention she has numbness in her hand. Allergies ceftazidime (Ceftazidime) Allergy (Mild, Verified 08/13/25 08:54) UNKNOWN benzocaine (Benzocaine) Allergy (Unknown, Verified 08/13/25 08:54) UNKNOWN butamben (From Cetacaine) Allergy (Unknown, Verified 08/13/25 08:54) UNKNOWN metoclopramide (From Reglan) Allergy (Unknown, Verified 08/13/25 08:54) UNKNOWN morphine (Morphine) Allergy (Unknown, Verified 08/13/25 08:54) SWELLING tetracaine (From Cetacaine) Allergy (Unknown, Verified 08/13/25 08:54) UNKNOWN HPI HPI ER FU-Closed fracture of right wrist: Details: Sienna is an 89 year old right hand dominant Diabetic Tamazight speaking woman, here with her granddaughter, for a right distal radius fracture. She reportedly fell while in the ED for a UTI, DOI: 08/06/25. This was reduced in the ED. She has Dementia & her granddaughter is here as her medical proxy. She presents in a stretcher today. She has swelling & numbness to the tips of her fingers, along with bruising, since her fall. She is in a Sugar-tong splint. Her granddaughter says when she is not in a sling, she often forgets and tries to use her arm for activities, including standing up or dressing herself. She currently resides in [facility] [facility] [place]. She has Dementia, Alzheimer's, Hx of falls, aortic stenosis, Hx of CVA, & Diabetes. [facility] Medical History (Updated 08/13/25 @ 08:50 by Santos Lubanszky) Sepsis Cirrhosis of liver DONAVAN (obstructive sleep apnea) Diabetes Allergic dermatitis Hives CVA (cerebral vascular accident) Non-alcoholic micronodular cirrhosis of liver CKD (chronic kidney disease) Dementia Hypertension Surgical History Hx of cholecystectomy No pertinent past surgical history Family History Father No problems noted. Mother No problems noted. Social History Household Members: Unknown / Unable to assess Housing: Unknown / Unable to assess Do you presently have visiting nurse or other home services: No Alcohol intake: current Alcohol intake frequency: does not drink Patient Tobacco Use Status: Former Tobacco user Second Hand Smoke Exposure: No Advance Directives Date on File: 12/07/21 service: No Review of Systems Const All systems reviewed & are unremarkable except as noted in HPI and below Physical Exam Const General: cooperative, healthy appearing and no acute distress Orientation/consciousness: patient oriented x3 HEENT Head: Yes normocephalic and Yes atraumatic Eyes EOM: EOMs intact bilaterally Resp Effort & Inspection: normal respiratory effort and able to speak in complete sentences Cardio Jugular venous distension: no JVD Skin General skin exam: turgor normal Rashes: no rashes Neuro General: patient oriented x3 Extrem Other: Evaluation of Right Upper Extremity: The patient is alert, oriented, and in no acute distress She is seen today in a Sugar-tong splint, and on a stretcher Neuro: Decreased sensation tot he fingertips fo the right hand, compared to her left Vascular: Cap refill brisk ROM: Not assessed today General: No Erythema or evidence of infection. Swelling & ecchymosis to the tips of her fingers Radiographs: 3 views of the right wrist were taken and viewed by me today in clinic. They show a comminuted intra-articular distal radius fracture with some loss of inclination. Lateral view today is somewhat suboptimal but appears similar to post reduction radiographs. Radiographs from 08/07/25, lateral view shows a reduction to ~5 degrees apex volar angulation. Psych Appearance: grossly normal Affect: normal affect Attitude: cooperative Office Procedures AMB Fracture Care Details: Fracture code 89715 Fracture Billing Code: Fracture Billing Code Assessment & Plan Assessment & Plan (1) Fracture of right distal radius: Code(s): S52.501A - Unspecified fracture of the lower end of right radius, initial encounter for closed fracture Category: Medical (2) Numbness of right hand: Code(s): R20.0 - Anesthesia of skin Category: Medical (3) Diabetes: Code(s): E11.9 - Type 2 diabetes mellitus without complications Category: Medical (4) Dementia: Code(s): F03.90 - Unspecified dementia, unspecified severity, without behavioral disturbance, psychotic disturbance, mood disturbance, and anxiety Category: Medical (5) Falls frequently: Code(s): R29.6 - Repeated falls Category: Medical Plan Assessment & Plan: 1. Right distal radius fracture, From a fall, DOI: 08/06/25 Reduced in ED: 08/06/25 3. Right hand numbness Possible carpal tunnel syndrome, no NCS completed I educated her & her granddaughter about this condition I discussed operative and non-operative treatment options. She may benefit from a carpal tunnel release at a later date We will manage this conservatively, and she is in agreement She was placed in a gently molded short arm cast, to be worn for the next 4 weeks I discussed activity modifications. They should take care to help her elevate her right upper extremity for the next week or so. They also need to help her remember not to push off or bear weight through her hand or wrist. She will perform gentle finger ROM exercises at home Uzair ordered a forearm bearing walker to accommodate her fracture. I also ordered PT to teach her to weight-bear using this new walker for ambulation. Our nurse here is going to work on seeing if [facility] has a PT program or will she need to have [facility] come in for PT appointments. Ideally she will start to be able to get up and ambulate using this forearm bearing walker. Again numerous reminders need to be made so that she does not push off or weight bear through her right hand or wrist. She will follow up in 4 weeks, with X-rays, 3V R wrist, OOP Please note that greater than 30 minutes was spent with this patient going over the history, evaluating the patient and radiographs, formulating possible treatment options, discussing them with the patient, and documenting the visit. Scribed for Shahida Madsen MD by Santos Aparicio medical reception specialist, on 08/13/25 at 8:40 AM, EST. Orders: Orders PT Evaluation and Treatment Today Shahida Madsen MD E11.9 - Type 2 diabetes mellitus without complications, F03.90 - Unspecified dementia, unspecified severity, without behavioral disturbance, psychotic disturbance, mood disturbance, and anxiety, R20.0 - Anesthesia of skin, S52.501A - Unspecified fracture of the lower end of right radius, initial encounter for closed fracture XR wrist RT min 3V Today Shahida Madsen MD M25.531 - Pain in right wrist Medications: New walker Forearm bearing walker 1 ea 0RF JOJO Reynoso Coding Level of Care Code New Pt Level 4 (28254) Diagnoses Fracture of right distal radius S52.501A Numbness of right hand R20.0 Diabetes E11.9 Dementia F03.90 Falls frequently R29.6 CPT Codes Fracture Care - Fracture Billing Code: Fracture Billing Code ([id number])
--- OUTSIDE RECORDS SUMMARY | 2025-08-13 09:08 | XMS_ITS | Clinical Summary ---
Author Organization [employer] Address [address] [facility] [address] [place] [address] Care Team Providers Care Baster Hand Name Role Phone Myah Singh MD Primary Care Provider [phone] Allergies Active Allergy Reactions Criticality Noted Date [...] complication, without long-term current use of insulin ([facility]) INJECT 1 BY INTO MACHINE ROUTE EVERY DAY 100 each 10 04/29/20 25 Active lisinopril 20 MG tabletIndicatio ns:Primary [...] unspecified whether stage 3a or 3b CKD ([facility]) TEST BLOOD SUGAR DAILY AND NEEDED 100 each 10 08/05/20 25 Active cetirizine (ZyrTEC) 5 MG tablet TAKE 1 TABLET (5 MG) BY MOUTH IN THE MORNING. 30 tablet 1 08/11/20 25 Active glucose blood (FREESTYLE LITE) test stripIndication s:Type 2 diabetes mellitus with stage 3 chronic kidney disease, without long-term current use of insulin, unspecified whether stage 3a or 3b CKD ([facility]) TEST BLOOD SUGAR DAILY AND NEEDED 100 each 11 07/23/20 24 2024 Discontinued amLODIPine (Norvasc) 5 [...] eorder (will not trigger notification to Pharmacy)) cetirizine (ZyrTEC) 5 MG tablet TAKE 1 TABLET (5 MG) BY MOUTH IN THE MORNING. 30 tablet 2 05/06/20 25 2024 Discontinued Active Problems Problem Noted Date Diagnosed Date [...] PM EDT): -Oct 2015 -Previously following with [facility] Cardiology, upcoming appt -Continue risk factor mangement Assessment & Plan (01/07/2023 4:34 PM EST): -Oct 2015 -Previously following with [facility] Cardiology, upcoming appt -Continue risk factor mangement [...] Estevez -Evaluated with EEG slow wave in 2015 and normal in 2016 -Head CT showed atrophy of brain and microvascular disease -Continue donepezil -Continue memantine Assessment & Plan (02/04/2024 1:07 PM EDT): -Neurologist: Dr. Estevez -Evaluated with EEG slow wave in 2015 and normal in 2016 -Head CT showed [...] cm2. Mild aortic valve regurgitation. -Seen by manager transfusion, Dr. Garcia in [facility], on 07/27/23, since she is not a [...] cm2. Mild aortic valve regurgitation. -Seen by manager transfusion, Dr. Garcia in [facility], on 07/27/23, since she is not a candidate for invasive procedure, plan is to continue medical management and follow up in 1 year Assessment & Plan (09/10/2023 4:57 PM EDT): -Pt has loud murmur consistent with aortic stenosis -NSTEMI in 2015 -Most recent TTE on 07/10/23 showed LVEF 55-60%, mild LVH, mildly dilated LA, and moderate aortic stenosis -mildly calcified aortic valve, the peak aortic gradient 31 mmHg; the mean gradient 14 mmHg; the aortic valve area 1.15 cm2. Mild aortic valve regurgitation. -Seen by manager transfusion, Dr. Garcia in [facility], on 07/27/23, since she is not a [...] -Pt has an upcoming appt with her manager transfusion Assessment & Plan (01/07/2023 5:17 PM EST): - Most recent TTE 10/14/22: There is mild calcification of the aortic valve. There is moderate aortic valve stenosis. The peak aortic gradient is 33 mmHg.The mean gradient is 16 mmHg. There is mild aortic valve regurgitation. -Pt has loud murmur consistent with aortic stenosis -NSTEMI in 2014 -Pt has an upcoming appt with her manager transfusion Anemia 01/07/2023 Assessment & Plan (01/07/2023 5:24 PM EST): - anemia of chronic disease (CKD, cirrhosis) - continue ferrous sulfate - check lab Diabetes mellitus, type 2 12/28/2022 Overview (04/07/2025): Frequent utis from jardiance Assessment & Plan (05/06/2025 11:29 AM EDT): Blood sugars are in range (90-110)without jardance, pt grandaughter and LEADITE WORKER deny any swelling, sob, orthopnea edema or elevated bps. Pt does not like glucose finger sticks, so reasonable to reduce them to once weekly considering excellent glucose control at this time, Monitor for any fluid overload, monitor renal function Assessment & Plan (04/07/2025 1:41 PM EDT): Stop jardiance due to frequent UTIs requiring rehab Gdausharon estimates 5 utis in last year Monitor [...] Plan (01/17/2025 5:56 AM EST): -Following with [facility] Sleep medicine clinic, last seen in January [...] was seeing psychiatrist while staying in the senior living -work on risk factor management -reviewed safety [...] Risk: CKD, age, NSTEMI, Hx CVA/TIA, DM2 -Manager Freelance[facility] (Grade [...] Risk: CKD, age, NSTEMI, Hx CVA/TIA, DM2 -Manager Freelance: [facility]23 (Grade [...] Risk: CKD, age, NSTEMI, Hx CVA/TIA, DM2 -Manager Freelance: Previously [facility] pt has a new appt on 01/23/23 [...] Risk: CKD, age, NSTEMI, Hx CVA/TIA, DM2 -Manager Freelance: Previously [facility], pt has a new appt on 01/23/23 [...] Risk: CKD, age, NSTEMI, Hx CVA/TIA, DM2 -Manager Freelance: Previously [facility] pt has a new appt on 01/23/23 [...] by [facility], last seen in Jun 2024 - Treatment [...] by [facility], last seen in November 2023 - Treatment [...] by [facility], last seen on 05/31/23. - Continue mirabegron as prescribed, advised to have drug holiday from mirabegron, resume when pt's symptoms worsen Assessment & Plan (05/08/2023 11:04 AM EDT): - in a setting of dementia, DM2, and SGLT-2 inhibitor use - Followed by Dr. Vallecillo, [facility] - Continue mirabegron as prescribed Assessment & Plan (01/07/2023 4:51 PM EST): - in a setting of dementia, DM2, and SGLT-2 inhibitor use - Followed by Dr. Vallecillo, [facility] - Continue mirabegron as prescribed Recurrent urinary [...] Assessment & Plan (01/17/2025 6:08 AM EST): -Executive Housekeeper: Dr. Martinez -Avoid nephrotoxic drugs and use renal dosing. -Recheck renal function today -On Jardiance, at low-dose, 10mg daily. Caution with UTI Assessment & Plan (02/04/2024 1:13 PM EDT): -Executive Housekeeper: Dr. Martinez -Baseline: 09/26/22 BUN 29; SCr 1.2, eGFR 43, AST 12, ALT 19, AP 91 -Avoid nephrotoxic drugs and use renal dosing. -Recheck renal function today -On Jardiance, at low-dose, 10mg daily. Assessment & Plan (09/10/2023 4:32 PM EDT): -Executive Housekeeper: Dr. Martinez, last seen in 2017 or 2018. Per caregiver, pt was discharged due to stability -Baseline: 09/26/22 BUN 29; SCr 1.2, eGFR 43, AST 12, ALT 19, AP 91 -Avoid nephrotoxic drugs and use renal dosing. -Recheck renal function today -On Jardiance, at low-dose, 10mg daily. Assessment & Plan (05/08/2023 11:04 AM EDT): -Executive Housekeeper: Dr. Martinez, last seen in 2017 or 2018. Per caregiver, pt was discharged due to stability -Baseline: 09/26/22 BUN 29; SCr 1.2, eGFR 43, AST 12, ALT 19, AP 91 -Avoid nephrotoxic drugs and use renal dosing. -Recheck renal function today -On Jardiance, at low-dose, 10mg daily. Assessment & Plan (01/07/2023 4:54 PM EST): -Executive Housekeeper: Dr. Martinez, last seen in 2017 or [...] Type Department Care Team Description 08/09/2025 Refill [facility] [address] [place] [address] Myah Singh MD 08/07/2025 Orders Only GENERIC EXTERNAL DATA DEPARTMENT Provider, Generic External Data 08/04/2025 Refill [facility] [address] [place] [address] Myah Singh MD Type 2 diabetes mellitus with stage 3 chronic kidney disease, without long-term current use of insulin, unspecified whether stage 3a or 3b CKD ([facility]) 07/21/2025 Refill [facility] [address] [place] [address] Liliana Sears MD 07/21/2025 Refill [facility] [address] [place] [address] Myah Singh MD Allergic rhinitis, unspecified seasonality, unspecified trigger 07/10/2025 Telephone [facility] [address] [place] [address] Myah Singh MD Durable Medical Equipment (DME: Multiple Items) 05/28/2025 Refill [facility] [address] [place] [address] Myah Singh MD Primary hypertension from Last [...] Screening 05/08/2024 05/08/2023 Lipid Panel 01/22/2025 01/22/2024, 0212/2022, 12/28/2021 COVID-19 Vaccine ( season) 2025 01/22/2024, [...] unspecified whether stage 3a or 3b CKD ([facility]) Dyslipidemia POCT GLYCOSYLATED HEMOGLOBIN (HGB A1C) Routine 09/11/2023 10:29 AM EDT Type 2 diabetes mellitus with stage 3 chronic kidney disease, without long-term current use of insulin, unspecified whether stage 3a or 3b CKD ([facility]) from Last 3 Months or Most Recently Relevant to Health Maintenance Results * Glucose, Whole Blood (08/07/2025 12:20 PM EDT) Glucose, Whole Blood 90 60 - 115 mg/dL [facility] Comment:METER #: [id number] 08/07/2025 12:2 0 PM EDT 08/07/2025 4:35 PM EDT us Generic External Data Provider LAB BLOOD ORDERAB LES Final Result [facility] [address] [place] [phone] * SARS-CoV-2 RNA, Influenza A/B, and RSV RNA, Ql NAAT (08/07/2025 8:48 AM EDT) Influenza A PCR NEGATIVE Negative [facility] Influenza B PCR NEGATIVE Negative [facility] Resp Syncy Virus RNA Qual PCR NEGATIVE Negative [facility] SARS COV2 PCR NEGATIVE Negative [facility] Comment:All test results mus t be [...] use by authorized laboratories.Testing performed on the [employer] GeneXpert utilizingreal-time RT-PCR.All SARS CoV2 and positive influenza A/B results arereported to [facility]. 08/07/2025 8:48 AM EDT 08/07/2025 8:51 AM EDT us Generic External Data Provider LAB MICROBIOLOGY - GENERAL ORDERABLES Final Result Performing Organization Address [facility] Co de Phone Number [facility] [address] [place] [phone] * Lipid Panel with Reflex to Direct LDL (01/22/2024 12:20 PM EST) Triglycerides 130 <150 mg/dL [facility] Comment:Desirable Triglyceri de: less than 150 mg/dLBorderline High Triglyceride 150-199 mg/dLHigh Triglyceride: 200-499 mg/dLVery High Triglyceride: greater than or equal to 5OO mg/dL Cholesterol 109 <200 mg/dL [facility] Comment:Desirable Cholestero l: less than 200 mg/dLBorderline High Cholesterol: 200-239 mg/dLHigh Cholesterol: greater than 239 mg/dL LDL Cholesterol Calculated 41 <100 mg/dL [facility] Comment:Desirable LDL: less than 100 mg/dLNear Optimal/Above Optimal LDL: 110- 129 mg/dLBorderline High LDL: 130-159 mg/dLHigh LDL: 160-189 mg/dLVery High LDL: greater than or equal to 190 mg/dL HDL Cholesterol 42 >40 mg/dL [facility] Comment:Desirable HDL: great er than 40 mg/dL Note: This HDL assay may give artificially low results in patients with liver disease. Blood 01/22/2024 12:2 0 PM EST 01/22/2024 1:11 PM EST Myah Singh MD LAB BLOOD ORDERABLES Final Resul t Performing Organization Address City/[facility]/ZIP Co de Phone Number [facility] [address] [place] [phone] * (ABNORMAL) POCT glycosylated hemoglobin (Hgb A1c) (09/11/2023 10:29 AM EDT) Hemoglobin A1C 6.2(A) 4.0 - 6.0 % QC Media Lot # [id number] Lot# Expiration Date Blood Capillary blood specimen / Unknown 09/11/2023 10:29 AM EDT Myah Singh MD POINT OF CARE TEST ENTER/EDIT OR DERABLES Final Result from Last 3 Months or Most Recently Relevant to Health Maintenance Insurance [facility] C[employer] HOME OPTIONS (O D-SNP) Care Teams Baster Hand Relationship Specialty Start Date End Date Myah Singh MD [address] [place] [address] PCP - General Family Medicine 11/08/12
--- OUTSIDE RECORDS SUMMARY | 2025-08-13 09:08 | XMS_ITS | Encounter Summary ---
Author Organization [employer] Address [address] [facility] [address] [place] [address] Care Team Providers Care Marble Machine Tender Name Role Phone Myah Singh MD Primary Care Provider [phone] Reason for Visit * Reason Comments Med Refill Encounter Details Date Type Department Care Team (Late st Contact Info) Description 08/09/2025 Refill [facility] [address] [place], [place] [phone] Myah Singh MD [address] [place], [place] [phone] Social History Tobacco Use Types Packs/Day Years [...] documented as of this encounter Care Teams Marble Machine Tender Relationship Specialty Start Date End Date Myah Singh MD [address] [place] [address] PCP - General Family Medicine 11/08/12 documented as of this encounter
--- OUTSIDE RECORDS SUMMARY | 2025-08-13 09:08 | XMS_ITS | Clinical Summary ---
Author Organization [address] [facility] Address [address] [place] [address] Phone Care Team Providers Care Supply Planner Name Role Phone Tony Arreola MD Primary Care Provider [phone] Social History Tobacco Use Types Packs/Day Years [...] LAB CHEMISTRY METHOD 02/24/2025 9:29 PM EDT [facility] Mean Bld Glu Estim. 123 mg/dL LAB CHEMISTRY METHOD 02/24/2025 9:29 PM EDT [facility] Blood Venous blood specimen / Unknown Venipuncture / Unknown 02/24/2025 6:34 AM EDT 02/24/2025 10:44 AM EDT Veuns Mayberry MD LAB BLOOD ORDERABLES Final Resul t [facility] [address] [place] [address], * (ABNORMAL) Comprehensive metabolic panel (02/24/2025 6:34 AM EDT) Sodium 142 133 - 145 mmol/L LAB CHEMISTRY METHOD 02/24/2025 12:24 PM EDT [facility] Potassium 4.1 3.5 - 5.5 mmol/L LAB CHEMISTRY METHOD 02/24/2025 12:24 PM [facility] Chloride 108 96 - 110 mmol/L LAB CHEMISTRY METHOD 02/24/2025 12:24 PM [facility] CO2 28 21 - 32 mmol/L LAB CHEMISTRY METHOD 02/24/2025 12:24 PM [facility] Anion Gap 6 3 - 11 LAB CHEMISTRY METHOD 02/24/2025 12:24 PM [facility] Glucose 91 70 - 100 mg/dL LAB CHEMISTRY METHOD 02/24/2025 12:24 PM [facility] BUN 30(H) 5 - 25 mg/dL LAB CHEMISTRY METHOD 02/24/2025 12:24 PM [facility] Creatinine 1.02 0.50 - 1.10 mg/dL LAB CHEMISTRY METHOD 02/24[facility]2025 12:[facility] eGFR 53(L) >=60 mL/min/1. 73m2 LAB CHEMISTRY METHOD 02/24/2025 12:24 PM [facility] Comment:Calculation based on the Chronic Kidney Disease Epidemiology Collaboration (CKD-EPI) equation refit without adjustment for race. BUN/Creatinine Ratio 29.4 LAB CHEMISTRY METHOD 02/24/2025 12:24 PM [facility] Calcium 10.5 8.5 - 10.5 mg/dL LAB CHEMISTRY METHOD 02/24/2025 12:24 PM [facility] AST (SGOT) 31 10 - 42 unit/L LAB CHEMISTRY METHOD 02/24/2025 12:24 PM EDT [facility] ALT (SGPT) 36 10 - 60 unit/L LAB CHEMISTRY METHOD 02/24/2025 12:24 PM EDT [facility] Alkaline Phosphatase 82 42 - 121 unit/L LAB CHEMISTRY METHOD 02/24/2025 12:24 PM EDT [facility] Total Protein 6.8 6.0 - 8.0 g/dL LAB CHEMISTRY METHOD 02/24/2025 12:24 PM EDT [facility] Albumin 3.1(L) 3.2 - 5.0 g/dL LAB CHEMISTRY METHOD 02/24/2025 12:24 PM EDT [facility] Total Bilirubin 0.4 0.0 - 1.4 mg/dL LAB CHEMISTRY METHOD 02/24/2025 12:24 PM EDT [facility] Blood Venous blood specimen / Unknown Venipuncture / Unknown 02/24/2025 6:34 AM EDT 02/24/2025 10:44 AM EDT Venus Mayberry MD LAB BLOOD ORDERABLES Final Resul t [facility] [address] [place] [address], from Last 3 Months or Most Recently Relevant to Health Maintenance Insurance [facility] MEDICARE Member Subscriber Plan / Payer (Ef fective 2019-Present) Name:Sienna Mendez Relation to Subscriber:Self Name:Sienna Mendez Payer ID:[id number] Group ID:[id number] Type:Not on file Address: [address] [place] [id number] Care Teams Supply Planner Relationship Specialty Start Date End Date Tony Arreola MD [address] [place] [address] [phone] [phone] PCP - General Family Medicine 12/14/24
--- OUTSIDE RECORDS SUMMARY | 2025-08-13 09:08 | XMS_ITS | Clinical Summary ---
Author Organization [facility] Facility Address [address] [address] Care Team Providers Care Reexaminer Name Role Phone Unavailable Primary Care Provider [...] -Pt has an upcoming appt with her catalogue and special products manager History of cerebrovascular accident 01/07/2023 Overview (01/23/2023): Last Assessment & Plan: -around 2009 previous medical record -TIA in 2015 -Continue working on secondary prevention / risk factor management History of non-ST segment elevation myocardial i nfarction 01/07/2023 Overview (01/23/2023): Last Assessment & Plan: -Oct 2015 -Previously following with [facility], upcoming appt -Continue risk factor mangement [...] Risk: CKD, age, NSTEMI, Hx CVA/TIA, DM2 -Clerk Checker: Previously [facility], pt has a new appt on 01/23/23 [...] to 50 Years) Discontinued 02/23/2015, 10/04/2001 Insurance [facility] ([id number]) JOJO HICKEY [id number] [facility] ([id number])
--- OUTSIDE RECORDS SUMMARY | 2025-08-13 09:08 | XMS_ITS | Patient Health Record ---
Author Organization [facility] Address [address] [place] [address] Care Team Providers Care Certified Pharmacy Tech Name Role Phone Samantha GARCIA, Myah Primary Care Provider Cali Bailey [phone] Allergies Allergen (clinical drug ingredient) Drug/Non Drug [...] Problem Status W/U Status Risk Notes Problem [id number] Gastroesophageal reflux disease without esophagitis (K21.9) Active confirmed Problem 995801457 Elevated liver enzymes (R74.8) Active confirmed Problem [id number] Constipation, unspecified constipation type (K59.00) Active confirmed Plan Of Treatment Pending Test Test Name Order Date LIVER PROFILE 04/06/2016 Insurance Providers Payer Name Payer Address Payer Phone Subscriber Number Group Number Insured Name Patient Relationship to Insured Coverage Start Date Coverage End Date [facility] [address] [place] [address] [id number] ZITA PAPPAS Self - patient is the insured MEDICARE OF [facility] [address] [place] [address] [id number] ZITA PAPPAS Self - patient is the insured Medical (General) History Medical History History ICD Code GERD--UPPER ENDOSCOPY & COLO NOSCOPY IN 2007--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
--- OUTSIDE RECORDS SUMMARY | 2025-08-13 09:08 | XMS_ITS | Encounter Summary ---
Author Organization [employer] Address [address] [place] [address] Care Team Providers Care Upfitter Name Role Phone Tony Arreola MD Primary Care Provider [phone] Encounter Details Date Type Department Care Team (Late st Contact Info) Description 12/28/2024 Lab Requisition [facility] - Main Lab [address] [facility] [place] [address] Tony Arreola MD [address] [facility] [address] [place], [address] Weakness; Unspecified dementia, unspecified severity, without [...] V28) documented in this encounter Care Teams Upfitter Relationship Specialty Start Date End Date Tony Arreola MD 38 [facility] [address] [place], [address] PCP - General Family Medicine 12/14/24 documented as of this encounter
--- OUTSIDE RECORDS SUMMARY | 2025-08-13 09:08 | XMS_ITS | Encounter Summary ---
Author Organization [facility] Address [address] [facility] [address] [place] [address] Phone Care Team Providers Care Family Medicine Physician Assistant Name Role Phone Unavailable Primary Care Provider Unavailabl e Reason for Visit * Reason Comments Med Refill Encounter Details Date Type Department Care Team ([facility] st Contact Info) Description 12/10/2021 Refill [facility] [address] [facility] [address] [place] [phone] Chino Martinez MD [address] [facility] [address] [place] [phone] Social History Tobacco Use Types Packs/Day Years [...]
--- OUTSIDE RECORDS SUMMARY | 2025-08-13 09:09 | XMS_ITS | Encounter Summary ---
Author Organization [facility] Address [address] [place] [address] Care Team Providers Care Act English Tutor Name Role Phone Tony Arreola MD Primary Care Provider [phone] Encounter Details Date Type Department Care Team (Late st Contact Info) Description 11/29/2024 Lab Requisition [facility] - Main Lab [address] [place] [address] Tony Arreola MD 38 [facility] [address] [place], [address] Weakness; Unspecified dementia, unspecified severity, without [...] mmol/L LAB CHEMISTRY METHOD 12/02/2024 11:14 AM [facility] Potassium 4.0 3.5 - 5.5 mmol/L LAB CHEMISTRY METHOD 12/02/2024 11:14 AM [facility] Chloride 112(H) 96 - 110 mmol/L LAB CHEMISTRY METHOD 12/02/2024 11:14 AM [facility] CO2 27 21 - 32 mmol/L LAB CHEMISTRY METHOD 12/02/2024 11:14 AM [facility] Anion Gap 5 3 - 11 LAB CHEMISTRY METHOD 12/02/2024 11:14 AM [facility] Glucose 80 70 - 100 mg/dL LAB CHEMISTRY METHOD 12/02/2024 11:14 AM [facility] BUN 28(H) 5 - 25 mg/dL LAB CHEMISTRY METHOD 12/02/2024 11:14 AM [facility] Creatinine 1.19(H) 0.50 - 1.10 mg/dL LAB CHEMISTRY METHOD 12/02/2024 11:14 AM [facility] eGFR 44(L) >=60 mL/min/1. 73m2 LAB CHEMISTRY METHOD 12/02/2024 11:14 AM [facility] Comment:Calculation based on the Chronic Kidney Disease Epidemiology Collaboration (CKD-EPI) equation refit without adjustment for race. BUN/Creatinine Ratio 23.5 LAB CHEMISTRY METHOD 12/02/2024 11:14 AM [facility] Calcium 9.3 8.5 - 10.5 mg/dL LAB CHEMISTRY METHOD 12/02/2024 11:14 AM [facility] Blood Venous blood specimen / Unknown Venipuncture / Unknown 12/02/2024 7:21 AM EST 12/02/2024 10:33 AM EST us Tony Arreola MD LAB BLOOD ORDERABLES Final Resul t [facility] [address] [place] [address], * (ABNORMAL) Complete blood count (12/02/2024 7:21 AM EST) [facility] WBC 6.8 4.8 - 10.8 K/mcL LAB HEMETOLOGY METHOD 12/02/2024 10:57 AM [facility] RBC 4.40 3.80 - 4.80 M/mcL LAB HEMETOLOGY METHOD 12/02/2024 10:57 AM [facility] Hemoglobin 12.9 11.5 - 16.0 g/dL LAB HEMETOLOGY METHOD 12/02/2024 10:57 AM [facility] Hematocrit 41.3 35.0 - 47.0 % LAB HEMETOLOGY METHOD 12/02/2024 10:57 AM [facility] MCV 93.9 79.0 - 98.0 FL LAB HEMETOLOGY METHOD 12/02/2024 10:57 AM [facility] MCH 29.3 27.0 - 32.0 pcg LAB HEMETOLOGY METHOD 12/02/2024 10:57 AM [facility] MCHC 31.2(L) 32.0 - 37.0 g/dL LAB HEMETOLOGY METHOD 12/02/2024 10:57 AM [facility] RDW 14.5 11.0 - 15.0 % LAB HEMETOLOGY METHOD 12/02/2024 10:57 AM [facility] Platelets 155 130 - 400 K/mcL LAB HEMETOLOGY METHOD 12/02/2024 10:57 AM [facility] MPV 11.6(H) 7.0 - 11.0 FL LAB HEMETOLOGY METHOD 12/02/2024 10:57 AM [facility] NRBC 0.0 <1.0 % LAB HEMETOLOGY METHOD 12/02/2024 10:57 AM [facility] NRBC Absolute 0.00 <0.10 K/mcL LAB HEMETOLOGY METHOD 12/02/2024 10:57 AM EST [facility] Blood Venous blood specimen / Unknown Venipuncture / Unknown 12/02/2024 7:21 AM EST 12/02/2024 10:33 AM EST us Tony Arreola MD LAB BLOOD ORDERABLES Final Resul t [facility] ([facility] [address] [place] [address], documented in this encounter Visit Diagnoses Diagnosis Weakness Other malaise and fatigue Unspecified dementia, unspecified severity, without behavioral disturbance, psychotic disturbance, mood disturbance, and anxiety (CMS/HCC V24, CMS/HCC V28) documented in this encounter Care Teams Act English Tutor Relationship Specialty Start Date End Date Tony Arreola MD [address] [place] [address] [address] [place], [phone] PCP - General Family Medicine 12/14/24 documented as of this encounter
--- OUTSIDE RECORDS SUMMARY | 2025-08-13 09:09 | XMS_ITS | Encounter Summary ---
Author Organization [employer] Address [address] [place] [address] [address] [place] [address] Care Team Providers Care Manager Order Name Role Phone Myah Singh MD Primary Care Provider [phone] Reason for Visit * Reason Onset Date Comments Durable Medical Equipment 01/30/2023 Encounter Details Date Type Department Care Team (Late st Contact Info) Description 01/30/2023 Telephone [facility] [address] [place], [place] [phone] Myah Singh MD [address] [place], [place] [phone] Durable Medical Equipment Social History Tobacco Use [...] call me or CHACE Beltran also patient MEDICAL TECHNOLOGIST PRN can call them as they are the vendor for more information [phone] * Telephone Encounter - Uriahrociorashel Rodriguezmahad Marion - 01/30/2023 10:00 AM EST Tc from pt MEDICAL TECHNOLOGIST PRN Jonathan stating that for the last two months pt Large Pull ups and Wipes have not been deliver Please contact jonathan at [phone] documented in this encounter Plan of Treatment Not on file documented as of this encounter Visit Diagnoses Not on filedocumented in this encounter Care Teams Manager Order Relationship Specialty Start Date End Date Myah Singh MD [address] [place] [address] PCP - General Family Medicine 11/08/12 [facility] 12/31/24 07/29/25 documented as of this encounter
--- OUTSIDE RECORDS SUMMARY | 2025-08-13 09:09 | XMS_ITS | Encounter Summary ---
Author Organization [employer] Address [address] [facility] 7t [place] [address] Care Team Providers Care Account Supervisor Name Role Phone Myah Singh MD Primary Care Provider [phone] Encounter Details Date Type Department Care Team ([facility] st Contact Info) Description 03/26/2025 Telephone [facility] [address] [place], [place] [phone] Myah Singh MD [address] [place], [place] [phone] Social History Tobacco Use Types Packs/Day Years [...] documented as of this encounter Care Teams Account Supervisor Relationship Specialty Start Date End Date Myah Singh MD [address] [place] [address] PCP - General Family Medicine 11/08/12 [facility] 12/31/24 07/29/25 documented as of this encounter
--- OUTSIDE RECORDS SUMMARY | 2025-08-13 09:09 | XMS_ITS | Encounter Summary ---
Author Organization [facility] Address [address] [place] [address] Care Team Providers Care Field Artillery Senior Sergeant Name Role Phone Tony Arreola MD Primary Care Provider [phone] Encounter Details Date Type Department Care Team (Late st Contact Info) Description 12/14/2024 Lab Requisition [facility] - Main Lab [address] [place] [address] Tony Arreola MD 38 [facility] [address] [place], [address] Weakness; Unspecified dementia, unspecified severity, without [...] mmol/L LAB CHEMISTRY METHOD 12/16/2024 1:55 PM [facility] Potassium 4.1 3.5 - 5.5 mmol/L LAB CHEMISTRY METHOD 12/16/2024 1:55 PM [facility] Chloride 113(H) 96 - 110 mmol/L LAB CHEMISTRY METHOD 12/16/2024 1:55 PM [facility] CO2 28 21 - 32 mmol/L LAB CHEMISTRY METHOD 12/16/2024 1:55 PM [facility] Anion Gap 5 3 - 11 LAB CHEMISTRY METHOD 12/16/2024 1:55 PM [facility] Glucose 88 70 - 100 mg/dL LAB CHEMISTRY METHOD 12/16/2024 1:55 PM [facility] BUN 25 5 - 25 mg/dL LAB CHEMISTRY METHOD 12/16/2024 1:55 PM [facility] Creatinine 1.26(H) 0.50 - 1.10 mg/dL LAB CHEMISTRY METHOD 12/16/2024 1:55 PM [facility] eGFR 41(L) >=60 mL/min/1. 73m2 LAB CHEMISTRY METHOD 12/16/2024 1:55 PM [facility] Comment:Calculation based on the Chronic Kidney Disease Epidemiology Collaboration (CKD-EPI) equation refit without adjustment for race. BUN/Creatinine Ratio 19.8 LAB CHEMISTRY METHOD 12/16/2024 1:55 PM [facility] Calcium 9.3 8.5 - 10.5 mg/dL LAB CHEMISTRY METHOD 12/16/2024 1:55 PM [facility] Blood Venous blood specimen / Unknown Venipuncture / Unknown 12/16/2024 7:20 AM EST 12/16/2024 11:32 AM EST us Tony Arreola MD LAB BLOOD ORDERABLES Final Resul t [facility] [address] [place] [address], [place] [phone] * (ABNORMAL) Complete blood count (12/16/2024 7:20 AM EST) [facility] WBC 5.4 4.8 - 10.8 K/mcL LAB HEMETOLOGY METHOD 12/16/2024 12:51 PM [facility] RBC 4.60 3.80 - 4.80 M/mcL LAB HEMETOLOGY METHOD 12/16/2024 12:51 PM [facility] Hemoglobin 13.4 11.5 - 16.0 g/dL LAB HEMETOLOGY METHOD 12/16/2024 12:51 PM [facility] Hematocrit 43.8 35.0 - 47.0 % LAB HEMETOLOGY METHOD 12/16/2024 12:51 PM [facility] MCV 95.8 79.0 - 98.0 FL LAB HEMETOLOGY METHOD 12/16/2024 12:51 PM [facility] MCH 29.3 27.0 - 32.0 pcg LAB HEMETOLOGY METHOD 12/16/2024 12:51 PM [facility] MCHC 30.6(L) 32.0 - 37.0 g/dL LAB HEMETOLOGY METHOD 12/16/2024 12:51 PM [facility] RDW 14.9 11.0 - 15.0 % LAB HEMETOLOGY METHOD 12/16/2024 12:51 PM [facility] Platelets 135 130 - 400 K/mcL LAB HEMETOLOGY METHOD 12/16/2024 12:51 PM [facility] MPV 12.3(H) 7.0 - 11.0 FL LAB HEMETOLOGY METHOD 12/16/2024 12:51 PM [facility] NRBC 0.0 <1.0 % LAB HEMETOLOGY METHOD 12/16/2024 12:51 PM [facility] NRBC Absolute 0.00 <0.10 K/mcL LAB HEMETOLOGY METHOD 12/16/2024 12:51 PM EST [facility] Blood Venous blood specimen / Unknown Venipuncture / Unknown 12/16/2024 7:20 AM EST 12/16/2024 11:32 AM EST us Tony Arreola MD LAB BLOOD ORDERABLES Final Resul t [facility] ([facility]) [facility] [address] [place] [address], documented in this encounter Visit Diagnoses Diagnosis Weakness Other malaise and fatigue Unspecified dementia, unspecified severity, without behavioral disturbance, psychotic disturbance, mood disturbance, and anxiety (CMS/HCC V24, CMS/HCC V28) documented in this encounter Care Teams Field Artillery Senior Sergeant Relationship Specialty Start Date End Date Tony Arreola MD [address] [place] [address] [address] [place], [phone] PCP - General Family Medicine 12/14/24 documented as of this encounter
--- OUTSIDE RECORDS SUMMARY | 2025-08-13 09:09 | XMS_ITS | Encounter Summary ---
Author Organization [id number] Address [address] [place] [address] Care Team Providers Care Portable Power Tool Repairer Name Role Phone Tony Arreola MD Primary Care Provider [phone] Encounter Details Date Type Department Care Team (Late st Contact Info) Description 02/24/[address] [facility] - Main Lab [address] [facility] [place] [address] Venus Mayberry MD [address] [place], [place] [phone] Essential (primary) hypertension; Type 2 diabetes mellitus [...] * Vitamin B12 (02/24/2025 6:34 AM EDT) [facility] Vitamin B-12 324 250 - 900 pcg/mL LAB CHEMISTRY METHOD 02/24/2025 12:24 PM EDT [facility] Blood Venous blood specimen / Unknown Venipuncture / Unknown 02/24/2025 6:34 AM EDT 02/24/2025 10:44 AM EDT us Venus Mayberry MD LAB BLOOD ORDERABLES Final Resul t Performing Organization Address City/[facility]/ZIP Co de Phone Number [facility] [address] [place] [address], [place] [phone] * Folate (02/24/2025 6:34 AM EDT) [facility] Folate 11.3 2.8 - 17.0 ng/ml LAB CHEMISTRY METHOD 02/24/2025 12:24 PM EDT [facility] Blood Venous blood specimen / Unknown Venipuncture / Unknown 02/24/2025 6:34 AM EDT 02/24/2025 10:44 AM EDT us Venus Mayberry MD LAB BLOOD ORDERABLES Final Resul t Performing Organization Address City/[facility]/ZIP Co de Phone Number [facility] [address] [place] [address], [place] [phone] * (ABNORMAL) Vitamin D 25 hydroxy (02/24/2025 6:34 AM EDT) Pathologist [facility] Vit D, 25-Hydroxy 29.9(L) 30.0 - 80.0 ng/mL LAB CHEMISTRY METHOD 02/24/2025 1:12 PM EDT [facility] Blood Venous blood specimen / Unknown Venipuncture / Unknown 02/24/2025 6:34 AM EDT 02/24/2025 10:44 AM EDT us Venus Mayberry MD LAB BLOOD ORDERABLES Final Resul t Performing Organization Address [facility] Co de Phone Number [facility] [address] [place] [address], * Thyroid stimulating hormone (02/24/2025 6:34 AM EDT) [facility] TSH 1.44 0.40 - 4.00 mcIU/mL LAB CHEMISTRY METHOD 02/24/2025 1:13 PM EDT [facility] Blood Venous blood specimen / Unknown Venipuncture / Unknown 02/24/2025 6:34 AM EDT 02/24/2025 10:44 AM EDT us Venus Mayberry MD LAB BLOOD ORDERABLES Final Resul t Performing Organization Address [facility] de Phone Number [facility] [address] [place] [address], [place] [phone] * Hemoglobin A1c (02/24/2025 6:34 AM EDT) [facility] Hemoglobin A1C 5.9 <6.5 % LAB CHEMISTRY METHOD 02/24/2025 9:29 PM EDT [facility] Mean Bld Glu Estim. 123 mg/dL LAB CHEMISTRY METHOD 02/24/2025 9:29 PM EDT [facility] Blood Venous blood specimen / Unknown Venipuncture / Unknown 02/24/2025 6:34 AM EDT 02/24/2025 10:44 AM EDT us Venus Mayberry MD LAB BLOOD ORDERABLES Final Resul t [facility] [address] [place] [address], [place] [phone] * (ABNORMAL) Comprehensive metabolic panel (02/24/2025 6:34 AM EDT) Sodium 142 133 - 145 mmol/L LAB CHEMISTRY METHOD 02/24/2025 12:24 PM EDT [facility] Potassium 4.1 3.5 - 5.5 mmol/L LAB CHEMISTRY METHOD 02/24/2025 12:24 PM [facility] Chloride 108 96 - 110 mmol/L LAB CHEMISTRY METHOD 02/24/2025 12:24 PM [facility] CO2 28 21 - 32 mmol/L LAB CHEMISTRY METHOD 02/24/2025 12:24 PM [facility] Anion Gap 6 3 - 11 LAB CHEMISTRY METHOD 02/24/2025 12:24 PM [facility] Glucose 91 70 - 100 mg/dL LAB CHEMISTRY METHOD 02/24/2025 12:24 PM [facility] BUN 30(H) 5 - 25 mg/dL LAB CHEMISTRY METHOD 02/24/2025 12:24 PM [facility] Creatinine 1.02 0.50 - 1.10 mg/dL LAB CHEMISTRY METHOD 02/24/2025 12:24 PM [facility] eGFR 53(L) >=60 mL/min/1. 73m2 LAB CHEMISTRY METHOD 02/24/2025 12:24 PM [facility] Comment:Calculation based on the Chronic Kidney Disease Epidemiology Collaboration (CKD-EPI) equation refit without adjustment for race. BUN/Creatinine Ratio 29.4 LAB CHEMISTRY METHOD 02/24/2025 12:24 PM [facility] Calcium 10.5 8.5 - 10.5 mg/dL LAB CHEMISTRY METHOD 02/24/2025 12:24 PM EDT [facility] AST (SGOT) 31 10 - 42 unit/L LAB CHEMISTRY METHOD 02/24/2025 12:24 PM EDT [facility] ALT (SGPT) 36 10 - 60 unit/L LAB CHEMISTRY METHOD 02/24/2025 12:24 PM EDT [facility] Alkaline Phosphatase 82 42 - 121 unit/L LAB CHEMISTRY METHOD 02/24/2025 12:24 PM EDT [facility] Total Protein 6.8 6.0 - 8.0 g/dL LAB CHEMISTRY METHOD [facility]25 [facility] Albumin 3.1(L) 3.2 - 5.0 g/dL LAB CHEMISTRY METHOD 02/24/2025 12:24 PM EDT [facility] Total Bilirubin 0.4 0.0 - 1.4 mg/dL LAB CHEMISTRY METHOD 02/24/2025 12:24 PM EDT [facility] Blood Venous blood specimen / Unknown Venipuncture / Unknown 02/24/2025 6:34 AM EDT 02/24/2025 10:44 AM EDT us Venus Mayberry MD LAB BLOOD ORDERABLES Final Resul t [facility] [address] [place] [address], * (ABNORMAL) Complete blood count (02/24/2025 6:34 AM EDT) WBC 6.0 4.8 - 10.8 K/mcL LAB HEMETOLOGY METHOD 02/24/2025 1:12 PM EDT [facility] RBC 4.80 3.80 - 4.80 M/mcL LAB HEMETOLOGY METHOD 02/24/2025 1:12 PM [facility] Hemoglobin 14.3 11.5 - 16.0 g/dL LAB HEMETOLOGY METHOD 02/24/2025 1:12 PM [facility] Hematocrit 45.6 35.0 - 47.0 % LAB HEMETOLOGY METHOD 02/24/2025 1:12 PM [facility] MCV 94.2 79.0 - 98.0 FL LAB HEMETOLOGY METHOD 02/24/2025 1:12 PM [facility] MCH 29.5 27.0 - 32.0 pcg LAB HEMETOLOGY METHOD 02/24/2025 1:12 PM [facility] MCHC 31.4(L) 32.0 - 37.0 g/dL LAB HEMETOLOGY METHOD 02/24/2025 1:12 PM [facility] RDW 14.7 11.0 - 15.0 % LAB HEMETOLOGY METHOD 02/24/2025 1:12 PM [facility] Platelets 154 130 - 400 K/mcL LAB HEMETOLOGY METHOD 02/24/2025 1:12 PM [facility] MPV 11.7(H) 7.0 - 11.0 FL LAB HEMETOLOGY METHOD 02/24/2025 1:12 PM [facility] NRBC 0.0 <1.0 % LAB HEMETOLOGY METHOD 02/24/2025 1:12 PM [facility] NRBC Absolute 0.00 <0.10 K/mcL LAB HEMETOLOGY METHOD 02/24/2025 1:12 PM [facility] Blood Venous blood specimen / Unknown Venipuncture / Unknown 02/24/2025 6:34 AM EDT 02/24/2025 10:44 AM EDT Venus Mayberry MD LAB BLOOD ORDERABLES Final Resul t [facility] [address] [place] [address], documented in this encounter Visit Diagnoses Diagnosis Essential (primary) hypertension Unspecified essential hypertension Type 2 diabetes mellitus without complications (CMS/HCC V24, CMS/HCC V28) documented in this encounter Care Teams Portable Power Tool Repairer Relationship Specialty Start Date End Date Tony Arreola MD [address] [place] [address], [phone] PCP - General Family Medicine 12/14/24 documented as of this encounter"
--- OUTSIDE RECORDS SUMMARY | 2025-08-13 09:09 | XMS_ITS | Encounter Summary ---
Author Organization [employer] Address [address] [facility] 7t [place] [address] Care Team Providers Care Pediatric Nephrologist Name Role Phone Myah Singh MD Primary Care Provider [phone] Reason for Visit * Reason Comments Med Refill Encounter Details Date Type Department Care Team (Late st Contact Info) Description 05/22/2024 Refill [facility]S [address] [place], [place] [phone] Myah Singh MD [address] [place], [place] [phone] Social History Tobacco Use Types Packs/Day Years [...] documented as of this encounter Care Teams Pediatric Nephrologist Relationship Specialty Start Date End Date Myah Singh MD [address] [place] [address] PCP - General Family Medicine 11/08/12 [facility] 12/31/24 07/29/25 documented as of this encounter
--- OUTSIDE RECORDS SUMMARY | 2025-08-13 09:09 | XMS_ITS | Encounter Summary ---
Author Organization [employer] Address [address] [facility] 7t [place] [address] Care Team Providers Care Buggyman Name Role Phone Myah Singh MD Primary Care Provider Reason for Visit * Reason Comments Med Refill Encounter Details Date Type Department Care Team (Late st Contact Info) Description 11/29/2023 Refill [facility] PEDS [address] [place], [place] [phone] Myah Singh MD [address] [place], [place] [phone] Vitamin D deficiency Social History Tobacco Use [...] documented as of this encounter Care Teams Buggyman Relationship Specialty Start Date End Date Myah Singh MD [address] [place] [phone] PCP - General Family Medicine 11/08/12 [facility] 12/31/24 07/29/25 documented as of this encounter
--- OUTSIDE RECORDS SUMMARY | 2025-08-13 09:09 | XMS_ITS | Encounter Summary ---
Author Organization [employer] Address [address] [facility] 7t [place] [address] Care Team Providers Care Drying Room Attendant Name Role Phone Myah Singh MD Primary Care Provider [phone] Reason for Visit * Reason Comments Med Refill Encounter Details Date Type Department Care Team (Late st Contact Info) Description 10/22/2024 Refill [facility] MED[facility]INE [address] [place], [place] [phone] Myah Singh MD [address] [place], [place] [phone] Allergic rhinitis, unspecified seasonality, unspecified trigger Social [...] documented as of this encounter Care Teams Drying Room Attendant Relationship Specialty Start Date End Date Myah Singh MD [address] [place] [address] PCP - General Family Medicine 11/08/12 [facility] 12/31/24 07/29/25 documented as of this encounter
--- OUTSIDE RECORDS SUMMARY | 2025-08-13 09:09 | XMS_ITS | Encounter Summary ---
Author Organization [employer] Address [address] [place] [address] Care Team Providers Care Special Systems Technician Name Role Phone Tony Arreola MD Primary Care Provider [phone] Encounter Details Date Type Department Care Team (Late st Contact Info) Description 12/21/2024 Lab Requisition [facility] - Main Lab [address] [place] [address] Tony Arreola MD 38 [facility] [address] [place], [address] Weakness; Unspecified dementia, unspecified severity, without [...] mmol/L LAB CHEMISTRY METHOD 12/23/2024 12:53 PM [facility] Potassium 4.2 3.5 - 5.5 mmol/L LAB CHEMISTRY METHOD 12/23/2024 12:53 PM [facility] Chloride 111(H) 96 - 110 mmol/L LAB CHEMISTRY METHOD 12/23/2024 12:53 PM [facility] CO2 28 21 - 32 mmol/L LAB CHEMISTRY METHOD 12/23/2024 12:53 PM [facility] Anion Gap 5 3 - 11 LAB CHEMISTRY METHOD 12/23/2024 12:53 PM [facility] Glucose 84 70 - 100 mg/dL LAB CHEMISTRY METHOD 12/23/2024 12:53 PM [facility] BUN 22 5 - 25 mg/dL LAB CHEMISTRY METHOD 12/23/2024 12:53 PM [facility] Creatinine 1.25(H) 0.50 - 1.10 mg/dL LAB CHEMISTRY METHOD 12/23/2024 12:53 PM [facility] eGFR 42(L) >=60 mL/min/1. 73m2 LAB CHEMISTRY METHOD 12/23/2024 12:53 PM [facility] Comment:Calculation based on the Chronic Kidney Disease Epidemiology Collaboration (CKD-EPI) equation refit without adjustment for race. BUN/Creatinine Ratio 17.6 LAB CHEMISTRY METHOD 12/23/2024 12:53 PM [facility] Calcium 9.3 8.5 - 10.5 mg/dL LAB CHEMISTRY METHOD 12/23/2024 12:53 PM [facility] Blood Venous blood specimen / Unknown Venipuncture / Unknown 12/23/2024 6:50 AM EST 12/23/2024 10:55 AM EST us Tony Arreola MD LAB BLOOD ORDERABLES Final Resul t [facility] [address] [place] [address], * (ABNORMAL) Complete blood count (12/23/2024 6:50 AM EST) [facility] WBC 6.0 4.8 - 10.8 K/mcL LAB HEMETOLOGY METHOD 12/23/2024 12:49 PM [facility] RBC 4.70 3.80 - 4.80 M/mcL LAB HEMETOLOGY METHOD 12/23/2024 12:49 PM [facility] Hemoglobin 13.4 11.5 - 16.0 g/dL LAB HEMETOLOGY METHOD 12/23/2024 12:49 PM [facility] Hematocrit 43.6 35.0 - 47.0 % LAB HEMETOLOGY METHOD 12/23/2024 12:49 PM [facility] MCV 93.6 79.0 - 98.0 FL LAB HEMETOLOGY METHOD 12/23/2024 12:49 PM [facility] MCH 28.8 27.0 - 32.0 pcg LAB HEMETOLOGY METHOD 12/23/2024 12:49 PM [facility] MCHC 30.7(L) 32.0 - 37.0 g/dL LAB HEMETOLOGY METHOD 12/23/2024 12:49 PM [facility] RDW 14.8 11.0 - 15.0 % LAB HEMETOLOGY METHOD 12/23/2024 12:49 PM [facility] Platelets 142 130 - 400 K/mcL LAB HEMETOLOGY METHOD 12/23/2024 12:49 PM [facility] MPV 12.0(H) 7.0 - 11.0 FL LAB HEMETOLOGY METHOD 12/23/2024 12:49 PM [facility] NRBC 0.0 <1.0 % LAB HEMETOLOGY METHOD 12/23/2024 12:49 PM [facility] NRBC Absolute 0.00 <0.10 K/mcL LAB HEMETOLOGY METHOD 12/23/2024 12:49 PM EST [facility] Blood Venous blood specimen / Unknown Venipuncture / Unknown 12/23/2024 6:50 AM EST 12/23/2024 10:55 AM EST Tony Arreola MD LAB BLOOD ORDERABLES Final Resul t [facility] [address] [place] [address], documented in this encounter Visit Diagnoses Diagnosis Weakness Other malaise and fatigue Unspecified dementia, unspecified severity, without behavioral disturbance, psychotic disturbance, mood disturbance, and anxiety (CMS/HCC V24, CMS/HCC V28) documented in this encounter Care Teams Special Systems Technician Relationship Specialty Start Date End Date Tony Arreola MD [address] [place] [address], [phone] PCP - General Family Medicine 12/14/24 documented as of this encounter
--- OUTSIDE RECORDS SUMMARY | 2025-08-13 09:09 | XMS_ITS | Encounter Summary ---
Author Organization [employer] Address [address] [facility] 7t [place] [address] Care Team Providers Care Template Storage Clerk Name Role Phone Myah Singh MD Primary Care Provider [phone] Encounter Details Date Type Department Care Team (Late st Contact Info) Description 01/30/2023 Telephone [facility]INE [address] [place], [place] [phone] Myah Singh MD [address] [place], [place] [phone] Social History Tobacco Use Types Packs/Day Years [...] on filedocumented in this encounter Care Teams Template Storage Clerk Relationship Specialty Start Date End Date Myah Singh MD [address] [place], [place] [phone] PCP - General Family Medicine 11/08/12 [facility] 12/31/24 07/29/25 documented as of this encounter
--- OUTSIDE RECORDS SUMMARY | 2025-08-13 09:09 | XMS_ITS | Encounter Summary ---
Author Organization [facility] Address [address] [place] [address] Care Team Providers Care Steel Barrel Reamer Name Role Phone Tony Arreola MD Primary Care Provider [phone] Encounter Details Date Type Department Care Team (Late st Contact Info) Description 12/06/2024 Lab Requisition [facility] - Main Lab [address] [place] [address] Tony Arreola MD 38 [facility] [address] [place], [address] Weakness; Unspecified dementia, unspecified severity, without [...] mmol/L LAB CHEMISTRY METHOD 12/09/2024 3:01 PM [facility] Potassium 4.3 3.5 - 5.5 mmol/L LAB CHEMISTRY METHOD 12/09/2024 3:01 PM [facility] Chloride 110 96 - 110 mmol/L LAB CHEMISTRY METHOD 12/09/2024 3:01 PM [facility] CO2 28 21 - 32 mmol/L LAB CHEMISTRY METHOD 12/09/2024 3:01 PM [facility] Anion Gap 7 3 - 11 LAB CHEMISTRY METHOD 12/09/2024 3:01 PM [facility] Glucose 74 70 - 100 mg/dL LAB CHEMISTRY METHOD 12/09/2024 3:01 PM [facility] BUN 20 5 - 25 mg/dL LAB CHEMISTRY METHOD 12/09/2024 3:01 PM [facility] Creatinine 1.21(H) 0.50 - 1.10 mg/dL LAB CHEMISTRY METHOD 12/09/2024 3:01 PM [facility] eGFR 43(L) >=60 mL/min/1. 73m2 LAB CHEMISTRY METHOD 12/09/2024 3:01 PM [facility] Comment:Calculation based on the Chronic Kidney Disease Epidemiology Collaboration (CKD-EPI) equation refit without adjustment for race. BUN/Creatinine Ratio 16.5 LAB CHEMISTRY METHOD 12/09/2024 3:01 PM [facility] Calcium 9.4 8.5 - 10.5 mg/dL LAB CHEMISTRY METHOD 12/09/2024 3:01 PM [facility] Blood Venous blood specimen / Unknown Venipuncture / Unknown 12/09/2024 7:13 AM EST 12/09/2024 11:17 AM EST us Tony Arreola MD LAB BLOOD ORDERABLES Final Resul t [facility] [address] [place] [address], [place] [phone] * (ABNORMAL) Complete blood count (12/09/2024 7:13 AM EST) [facility] Signature WBC 6.9 4.8 - 10.8 K/mcL LAB HEMETOLOGY METHOD 12/09/2024 12:37 PM [facility] RBC 4.60 3.80 - 4.80 M/mcL LAB HEMETOLOGY METHOD 12/09/2024 12:37 PM [facility] Hemoglobin 13.3 11.5 - 16.0 g/dL LAB HEMETOLOGY METHOD 12/09/2024 12:37 PM [facility] Hematocrit 43.5 35.0 - 47.0 % LAB HEMETOLOGY METHOD 12/09/2024 12:37 PM [facility] MCV 94.8 79.0 - 98.0 FL LAB HEMETOLOGY METHOD 12/09/2024 12:37 PM [facility] MCH 29.0 27.0 - 32.0 pcg LAB HEMETOLOGY METHOD 12/09/2024 12:37 PM [facility] MCHC 30.6(L) 32.0 - 37.0 g/dL LAB HEMETOLOGY METHOD 12/09/2024 12:37 PM [facility] RDW 14.6 11.0 - 15.0 % LAB HEMETOLOGY METHOD 12/09/2024 12:37 PM [facility] Platelets 160 130 - 400 K/mcL LAB HEMETOLOGY METHOD 12/09/2024 12:37 PM [facility] MPV 12.2(H) 7.0 - 11.0 FL LAB HEMETOLOGY METHOD 12/09/2024 12:37 PM [facility] NRBC 0.0 <1.0 % LAB HEMETOLOGY METHOD 12/09/2024 12:37 PM [facility] NRBC Absolute 0.00 <0.10 K/mcL LAB HEMETOLOGY METHOD 12/09/2024 12:37 PM EST [facility] Blood Venous blood specimen / Unknown Venipuncture / Unknown 12/09/2024 7:13 AM EST 12/09/2024 11:17 AM EST us Tony Arreola MD LAB BLOOD ORDERABLES Final Resul t [facility] [address] [place] [address], documented in this encounter Visit Diagnoses Diagnosis Weakness Other malaise and fatigue Unspecified dementia, unspecified severity, without behavioral disturbance, psychotic disturbance, mood disturbance, and anxiety (CMS/HCC V24, CMS/HCC V28) documented in this encounter Care Teams Steel Barrel Reamer Relationship Specialty Start Date End Date Tony Arreola MD [address] [place] [address], [phone] PCP - General Family Medicine 12/14/24 documented as of this encounter
== END 2025-08-13 09:28 | disposition home or self-care (01) ==
LOC: HO.HOS 08:15
PROVIDERS: PCP Family Medicine; Visit Provider Orthopaedic Surgery
DX: S52.501A Unspecified fracture of the lower end of right radius, initial encounter for closed fracture (principal); R20.0 Anesthesia of skin; E11.9 Type 2 diabetes mellitus without complications; F03.90 Unspecified dementia, unspecified severity, without behavioral disturbance, psychotic disturbance, mood disturbance, and anxiety; R29.6 Repeated falls
CPT/HCPCS: 25600; 99204

== ENCOUNTER → 2025-08-13 08:14 | Outpatient (BNVA) | payer OTHER, SELFPAY | PROVIDERS: PCP Family Medicine; Visit Provider Orthopaedic Surgery | DX: S52.501A Unspecified fracture of the lower end of right radius, initial encounter for closed fracture (principal); R20.0 Anesthesia of skin; R29.6 Repeated falls; E11.9 Type 2 diabetes mellitus without complications; F03.90 Unspecified dementia, unspecified severity, without behavioral disturbance, psychotic disturbance, mood disturbance, and anxiety | CPT/HCPCS: 25600; 99202 ==

== ENCOUNTER → 2025-08-13 08:17 | Outpatient (BNV) | payer OTHER, SELFPAY | PROVIDERS: Visit Provider Radiology Diagnostic Radiology | DX: S52.571A Other intraarticular fracture of lower end of right radius, initial encounter for closed fracture (principal) | CPT/HCPCS: 73110 ==

== ENCOUNTER 2025-08-19 04:58 | Outpatient (REF) | payer OTHER, SELFPAY ==
--- OUTSIDE RECORDS SUMMARY | 2025-08-19 05:01 | XMS_ITS | Encounter Summary ---
Author Organization [employer] Address 75 [facility] 7t [place] [address] Care Team Providers Care Maintenance Job Titles Name Role Phone Myah Singh MD Primary Care Provider [phone] Encounter Details Date Type Department Care Team (Late st Contact Info) Description 01/30/2023 Telephone [facility] MEDICINE [address] [place], [place] [phone] Myah Singh MD [address] [place], [place] [phone] Social History Tobacco Use Types Packs/Day Years [...] on filedocumented in this encounter Care Teams Maintenance Job Titles Relationship Specialty Start Date End Date Myah Singh MD [address] [place], [place] [phone] PCP - General Family Medicine 11/08/12 [facility] 12/31/24 07/29/25 documented as of this encounter
--- OUTSIDE RECORDS SUMMARY | 2025-08-19 05:01 | XMS_ITS | Encounter Summary ---
Author Organization [employer] Address [address] [facility] 7t [place] [address] Care Team Providers Care Electrical Repairer Name Role Phone Myah Singh MD Primary Care Provider [phone] Reason for Visit * Reason Comments Med Refill Encounter Details Date Type Department Care Team (Late st Contact Info) Description 05/22/2024 Refill [facility] MED & PEDS [address] [place], [place] [phone] Myah Singh MD [address] [place], [place] [phone] Social History Tobacco Use Types Packs/Day Years [...] documented as of this encounter Care Teams Electrical Repairer Relationship Specialty Start Date End Date Myah Singh MD [address] [place] [address] PCP - General Family Medicine 11/08/[address] [facility] 12/31/24 07/29/25 documented as of this encounter
--- OUTSIDE RECORDS SUMMARY | 2025-08-19 05:01 | XMS_ITS | Encounter Summary ---
Author Organization [employer] Address [address] [place] [address] Care Team Providers Care Cash Applications Associate Name Role Phone Tony Arreola MD Primary Care Provider [phone] Encounter Details Date Type Department Care Team (Late st Contact Info) Description 12/21/2024 Lab Requisition [facility] - Main Lab [address] [place] [address] Tony Arreola MD 38 [facility] [address] [place], [address] Weakness; Unspecified dementia, unspecified severity, without [...] mmol/L LAB CHEMISTRY METHOD 12/23/2024 12:53 PM [facility] Potassium 4.2 3.5 - 5.5 mmol/L LAB CHEMISTRY METHOD 12/23/2024 12:53 PM [facility] Chloride 111(H) 96 - 110 mmol/L LAB CHEMISTRY METHOD 12/23/2024 12:53 PM [facility] CO2 28 21 - 32 mmol/L LAB CHEMISTRY METHOD 12/23/2024 12:53 PM [facility] Anion Gap 5 3 - 11 LAB CHEMISTRY METHOD 12/23/2024 12:53 PM [facility] Glucose 84 70 - 100 mg/dL LAB CHEMISTRY METHOD 12/23/2024 12:53 PM [facility] BUN 22 5 - 25 mg/dL LAB CHEMISTRY METHOD 12/23/2024 12:53 PM [facility] Creatinine 1.25(H) 0.50 - 1.10 mg/dL LAB CHEMISTRY METHOD 12/23/2024 12:53 PM [facility] eGFR 42(L) >=60 mL/min/1. 73m2 LAB CHEMISTRY METHOD 12/23/2024 12:53 PM [facility] Comment:Calculation based on the Chronic Kidney Disease Epidemiology Collaboration (CKD-EPI) equation refit without adjustment for race. BUN/Creatinine Ratio 17.6 LAB CHEMISTRY METHOD 12/23/2024 12:53 PM [facility] Calcium 9.3 8.5 - 10.5 mg/dL LAB CHEMISTRY METHOD 12/23/2024 12:53 PM [facility] Blood Venous blood specimen / Unknown Venipuncture / Unknown 12/23/2024 6:50 AM EST 12/23/2024 10:55 AM EST us Tony Arreola MD LAB BLOOD ORDERABLES Final Resul t [facility] [address] [place] [address], * (ABNORMAL) Complete blood count (12/23/2024 6:50 AM EST) [facility] WBC 6.0 4.8 - 10.8 K/mcL LAB HEMETOLOGY METHOD 12/23/2024 12:49 PM [facility] RBC 4.70 3.80 - 4.80 M/mcL LAB HEMETOLOGY METHOD 12/23/2024 12:49 PM [facility] Hemoglobin 13.4 11.5 - 16.0 g/dL LAB HEMETOLOGY METHOD 12/23/2024 12:49 PM [facility] Hematocrit 43.6 35.0 - 47.0 % LAB HEMETOLOGY METHOD 12/23/2024 12:49 PM [facility] MCV 93.6 79.0 - 98.0 FL LAB HEMETOLOGY METHOD 12/23/2024 12:49 PM [facility] MCH 28.8 27.0 - 32.0 pcg LAB HEMETOLOGY METHOD 12/23/2024 12:49 PM [facility] MCHC 30.7(L) 32.0 - 37.0 g/dL LAB HEMETOLOGY METHOD 12/23/2024 12:49 PM [facility] RDW 14.8 11.0 - 15.0 % LAB HEMETOLOGY METHOD 12/23/2024 12:49 PM [facility] Platelets 142 130 - 400 K/mcL LAB HEMETOLOGY METHOD 12/23/2024 12:49 PM [facility] MPV 12.0(H) 7.0 - 11.0 FL LAB HEMETOLOGY METHOD 12/23/2024 12:49 PM [facility] NRBC 0.0 <1.0 % LAB HEMETOLOGY METHOD 12/23/2024 12:49 PM [facility] NRBC Absolute 0.00 <0.10 K/mcL LAB HEMETOLOGY METHOD 12/23/2024 12:49 PM EST [facility] Blood Venous blood specimen / Unknown Venipuncture / Unknown 12/23/2024 6:50 AM EST 12/23/2024 10:55 AM EST Tony Arreola MD LAB BLOOD ORDERABLES Final Resul t [facility] [address] [place] [address], documented in this encounter Visit Diagnoses Diagnosis Weakness Other malaise and fatigue Unspecified dementia, unspecified severity, without behavioral disturbance, psychotic disturbance, mood disturbance, and anxiety (CMS/HCC V24, CMS/HCC V28) documented in this encounter Care Teams Cash Applications Associate Relationship Specialty Start Date End Date Tony Arreola MD [address] [place] [address], [phone] PCP - General Family Medicine 12/14/24 documented as of this encounter
--- OUTSIDE RECORDS SUMMARY | 2025-08-19 05:01 | XMS_ITS | Encounter Summary ---
Author Organization [employer] Address [address] [place] [address] Care Team Providers Care County Demonstrator Name Role Phone Tony Arreola MD Primary Care Provider Encounter Details Date Type Department Care Team (Late st Contact Info) Description 02/24/2025 Lab Requisition [facility] - Main Lab [address] [facility] [place] [address] Venus Mayberry MD [address] [place], [place] [phone] Essential (primary) hypertension; Type 2 diabetes mellitus [...] * Vitamin B12 (02/24/2025 6:34 AM EDT) [facility] Vitamin B-12 324 250 - 900 pcg/mL LAB CHEMISTRY METHOD 02/24/2025 12:24 PM EDT [facility] Blood Venous blood specimen / Unknown Venipuncture / Unknown 02/24/2025 6:34 AM EDT 02/24/2025 10:44 AM EDT us Venus Mayberry MD LAB BLOOD ORDERABLES Final Resul t Performing Organization Address City/[facility]/ZIP Co de Phone Number [facility] [address] [place] [address], [place] [phone] * Folate (02/24/2025 6:34 AM EDT) [facility] Folate 11.3 2.8 - 17.0 ng/ml LAB CHEMISTRY METHOD 02/24/2025 12:24 PM EDT [facility] Blood Venous blood specimen / Unknown Venipuncture / Unknown 02/24/2025 6:34 AM EDT 02/24/2025 10:44 AM EDT us Venus Mayberry MD LAB BLOOD ORDERABLES Final Resul t Performing Organization Address City/[facility]/ZIP Co de Phone Number [facility] [address] [place] [address], [place] [phone] * (ABNORMAL) Vitamin D 25 hydroxy (02/24/2025 6:34 AM EDT) Pathologist [facility] Vit D, 25-Hydroxy 29.9(L) 30.0 - 80.0 ng/mL LAB CHEMISTRY METHOD 02/24/2025 1:12 PM EDT [facility] Blood Venous blood specimen / Unknown Venipuncture / Unknown 02/24/2025 6:34 AM EDT 02/24/2025 10:44 AM EDT us Venus Mayberry MD LAB BLOOD ORDERABLES Final Resul t Performing Organization Address [facility] Co de Phone Number [facility] [address] [place] [address], * Thyroid stimulating hormone (02/24/2025 6:34 AM EDT) [facility] TSH 1.44 0.40 - 4.00 mcIU/mL LAB CHEMISTRY METHOD 02/24/2025 1:13 PM EDT [facility] Blood Venous blood specimen / Unknown Venipuncture / Unknown 02/24/2025 6:34 AM EDT 02/24/2025 10:44 AM EDT us Venus Mayberry MD LAB BLOOD ORDERABLES Final Resul t Performing Organization Address [facility] de Phone Number [facility] [address] [place] [address], [place] [phone] * Hemoglobin A1c (02/24/2025 6:34 AM EDT) [facility] Hemoglobin A1C 5.9 <6.5 % LAB CHEMISTRY METHOD 02/24/2025 9:29 PM EDT [facility] Mean Bld Glu Estim. 123 mg/dL LAB CHEMISTRY METHOD 02/24/2025 9:29 PM EDT [facility] Blood Venous blood specimen / Unknown Venipuncture / Unknown 02/24/2025 6:34 AM EDT 02/24/2025 10:44 AM EDT us Venus Mayberry MD LAB BLOOD ORDERABLES Final Resul t [facility] [address] [place] [address], [place] [phone] * (ABNORMAL) Comprehensive metabolic panel (02/24/2025 6:34 AM EDT) Sodium 142 133 - 145 mmol/L LAB CHEMISTRY METHOD 02/24/2025 12:24 PM EDT [facility] Potassium 4.1 3.5 - 5.5 [...] 12:24 PM [facility] eGFR 53(L) >=60 mL/min/1. 73m2 LAB CHEMISTRY METHOD 02/24/2025 12:24 PM [facility] Comment:Calculation based on the Chronic Kidney Disease Epidemiology Collaboration (CKD-EPI) equation refit without adjustment for race. BUN/Creatinine Ratio 29.4 LAB CHEMISTRY METHOD 02/24/2025 12:24 PM [facility] Calcium 10.5 8.5 - 10.5 mg/dL LAB CHEMISTRY METHOD 02/24/2025 12:24 PM EDT [facility] AST (SGOT) 31 10 - 42 unit/L LAB CHEMISTRY METHOD 02/24/2025 12:24 PM EDT [facility] ALT (SGPT) 36 10 - 60 unit/L LAB CHEMISTRY METHOD 02/24/2025 12:24 PM EDT [facility] Alkaline Phosphatase 82 42 - 121 unit/L LAB CHEMISTRY METHOD 02/24/2025 12:24 PM EDT [facility] Total Protein 6.8 6.0 - 8.0 g/dL LAB CHEMISTRY METHOD [facility]25 [facility] Albumin 3.1(L) 3.2 - 5.0 g/dL LAB CHEMISTRY METHOD 02/24/2025 12:24 PM EDT [facility] Total Bilirubin 0.4 0.0 - 1.4 mg/dL LAB CHEMISTRY METHOD 02/24/2025 12:24 PM EDT [facility] Blood Venous blood specimen / Unknown Venipuncture / Unknown 02/24/2025 6:34 AM EDT 02/24/2025 10:44 AM EDT us Venus Mayberry MD LAB BLOOD ORDERABLES Final Resul t [facility] [address] [place] [address], * (ABNORMAL) Complete blood count (02/24/2025 6:34 AM EDT) WBC 6.0 4.8 - 10.8 K/mcL LAB HEMETOLOGY METHOD 02/24/2025 1:12 PM EDT [facility] RBC 4.80 3.80 - 4.80 M/mcL LAB HEMETOLOGY METHOD 02/24/2025 1:12 PM [facility] Hemoglobin 14.3 11.5 - 16.0 g/dL LAB HEMETOLOGY METHOD 02/24/2025 1:12 PM [facility] Hematocrit 45.6 35.0 - 47.0 % LAB HEMETOLOGY METHOD 02/24/2025 1:12 PM [facility] MCV 94.2 79.0 - 98.0 FL LAB HEMETOLOGY METHOD 02/24/2025 1:12 PM [facility] MCH 29.5 27.0 - 32.0 pcg LAB HEMETOLOGY METHOD 02/24/2025 1:12 PM [facility] MCHC 31.4(L) 32.0 - 37.0 g/dL LAB HEMETOLOGY METHOD 02/24/2025 1:12 PM [facility] RDW 14.7 11.0 - 15.0 % LAB HEMETOLOGY METHOD 02/24/2025 1:12 PM [facility] Platelets 154 130 - 400 K/mcL LAB HEMETOLOGY METHOD 02/24/2025 1:12 PM [facility] MPV 11.7(H) 7.0 - 11.0 FL LAB HEMETOLOGY METHOD 02/24/2025 1:12 PM [facility] NRBC 0.0 <1.0 % LAB HEMETOLOGY METHOD 02/24/2025 1:12 PM [facility] NRBC Absolute 0.00 <0.10 K/mcL LAB HEMETOLOGY METHOD 02/24/2025 1:12 PM [facility] Blood Venous blood specimen / Unknown Venipuncture / Unknown 02/24/2025 6:34 AM EDT 02/24/2025 10:44 AM EDT Venus Mayberry MD LAB BLOOD ORDERABLES Final [facility]ul [facility] [address] [place] [address], documented in this encounter Visit Diagnoses Diagnosis Essential (primary) hypertension Unspecified essential hypertension Type 2 diabetes mellitus without complications (CMS/HCC V24, CMS/HCC V28) documented in this encounter Care Teams County Demonstrator Relationship Specialty Start Date End Date Tony Arreola MD [address] [place] [address], [phone] PCP - General Family Medicine 12/14/24 documented as of this encounter
--- OUTSIDE RECORDS SUMMARY | 2025-08-19 05:01 | XMS_ITS | Clinical Summary ---
Author Organization [facility] Facility Address [address] [address] Care Team Providers Care Technical Services Librarian Name Role Phone Unavailable Primary Care Provider [...] -Pt has an upcoming appt with her plastic manager History of cerebrovascular accident 01/07/2023 Overview (01/23/2023): Last Assessment & Plan: -around 2009 previous medical record -TIA in 2015 -Continue working on secondary prevention / risk factor management History of non-ST segment elevation myocardial i nfarction 01/07/2023 Overview (01/23/2023): Last Assessment & Plan: -Oct 2015 -Previously following with [facility] Cardiology, upcoming appt -Continue [...] Risk: CKD, age, NSTEMI, Hx CVA/TIA, DM2 -Marketing Senior Recruiter: Previously [facility], pt has a new [...] to 50 Years) Discontinued 02/23/2015, 10/04/2001 Insurance [facility] ([id number]) JOJO HICKEY [id number] [facility] ([id number])
--- OUTSIDE RECORDS SUMMARY | 2025-08-19 05:01 | XMS_ITS | Encounter Summary ---
Author Organization [employer] Address [address] [facility] 7t [place] [address] Care Team Providers Care Home Appliances Mechanic Name Role Phone Myah Singh MD Primary Care Provider [phone] Reason for Visit * Reason Comments Med Refill Encounter Details Date Type Department Care Team (Late st Contact Info) Description 10/22/2024 Refill [facility] MED[facility]INE [address] [place], [place] [phone] Myah Singh MD [address] [place], [place] [phone] Allergic rhinitis, unspecified seasonality, unspecified trigger Social [...] documented as of this encounter Care Teams Home Appliances Mechanic Relationship Specialty Start Date End Date Myah Singh MD [address] [place] [address] PCP - General Family Medicine 11/08/12 [facility] 12/31/24 07/29/25 documented as of this encounter
--- OUTSIDE RECORDS SUMMARY | 2025-08-19 05:01 | XMS_ITS | Encounter Summary ---
Author Organization [facility] Address [address] [place] [address] Care Team Providers Care Oracle Ebs Developer Name Role Phone Tony Arreola MD Primary Care Provider [phone] Encounter Details Date Type Department Care Team (Late st Contact Info) Description 12/06/2024 Lab Requisition [facility] - Main Lab [address] [place] [address] Tony Arreola MD 38 [facility] [address] [place], [address] Weakness; Unspecified dementia, unspecified severity, without [...] mmol/L LAB CHEMISTRY METHOD 12/09/2024 3:01 PM [facility] Potassium 4.3 3.5 - 5.5 mmol/L LAB CHEMISTRY METHOD 12/09/2024 3:01 PM [facility] Chloride 110 96 - 110 mmol/L LAB CHEMISTRY METHOD 12/09/2024 3:01 PM [facility] CO2 28 21 - 32 mmol/L LAB CHEMISTRY METHOD 12/09/2024 3:01 PM [facility] Anion Gap 7 3 - 11 LAB CHEMISTRY METHOD 12/09/2024 3:01 PM [facility] Glucose 74 70 - 100 mg/dL LAB CHEMISTRY METHOD 12/09/2024 3:01 PM [facility] BUN 20 5 - 25 mg/dL LAB CHEMISTRY METHOD 12/09/2024 3:01 PM [facility] Creatinine 1.21(H) 0.50 - 1.10 mg/dL LAB CHEMISTRY METHOD 12/09/2024 3:01 PM [facility] eGFR 43(L) >=60 mL/min/1. 73m2 LAB CHEMISTRY METHOD 12/09/2024 3:01 PM [facility] Comment:Calculation based on the Chronic Kidney Disease Epidemiology Collaboration (CKD-EPI) equation refit without adjustment for race. BUN/Creatinine Ratio 16.5 LAB CHEMISTRY METHOD 12/09/2024 3:01 PM [facility] Calcium 9.4 8.5 - 10.5 mg/dL LAB CHEMISTRY METHOD 12/09/2024 3:01 PM [facility] Blood Venous blood specimen / Unknown Venipuncture / Unknown 12/09/2024 7:13 AM EST 12/09/2024 11:17 AM EST us Tony Arreola MD LAB BLOOD ORDERABLES Final Resul t [facility] [address] [place] [address], [place] [phone] * (ABNORMAL) Complete blood count (12/09/2024 7:13 AM EST) [facility] Signature WBC 6.9 4.8 - 10.8 K/mcL LAB HEMETOLOGY METHOD 12/09/2024 12:37 PM [facility] RBC 4.60 3.80 - 4.80 M/mcL LAB HEMETOLOGY METHOD 12/09/2024 12:37 PM [facility] Hemoglobin 13.3 11.5 - 16.0 g/dL LAB HEMETOLOGY METHOD 12/09/2024 12:37 PM [facility] Hematocrit 43.5 35.0 - 47.0 % LAB HEMETOLOGY METHOD 12/09/2024 12:37 PM [facility] MCV 94.8 79.0 - 98.0 FL LAB HEMETOLOGY METHOD 12/09/2024 12:37 PM [facility] MCH 29.0 27.0 - 32.0 pcg LAB HEMETOLOGY METHOD 12/09/2024 12:37 PM [facility] MCHC 30.6(L) 32.0 - 37.0 g/dL LAB HEMETOLOGY METHOD 12/09/2024 12:37 PM [facility] RDW 14.6 11.0 - 15.0 % LAB HEMETOLOGY METHOD 12/09/2024 12:37 PM [facility] Platelets 160 130 - 400 K/mcL LAB HEMETOLOGY METHOD 12/09/2024 12:37 PM [facility] MPV 12.2(H) 7.0 - 11.0 FL LAB HEMETOLOGY METHOD 12/09/2024 12:37 PM [facility] NRBC 0.0 <1.0 % LAB HEMETOLOGY METHOD 12/09/2024 12:37 PM [facility] NRBC Absolute 0.00 <0.10 K/mcL LAB HEMETOLOGY METHOD 12/09/2024 12:37 PM EST [facility] Blood Venous blood specimen / Unknown Venipuncture / Unknown 12/09/2024 7:13 AM EST 12/09/2024 11:17 AM EST us Tony Arreola MD LAB BLOOD ORDERABLES Final Resul t [facility] [address] [place] [address], documented in this encounter Visit Diagnoses Diagnosis Weakness Other malaise and fatigue Unspecified dementia, unspecified severity, without behavioral disturbance, psychotic disturbance, mood disturbance, and anxiety (CMS/HCC V24, CMS/HCC V28) documented in this encounter Care Teams Oracle Ebs Developer Relationship Specialty Start Date End Date Tony Arreola MD [address] [place] [address], [phone] PCP - General Family Medicine 12/14/24 documented as of this encounter
--- OUTSIDE RECORDS SUMMARY | 2025-08-19 05:01 | XMS_ITS | Patient Health Record ---
Author Organization [facility] Address [address] [place] [address] Care Team Providers Care Associate Account Manager Name Role Phone Samantha GARCIA, Myah Primary Care Provider Cali Bailey [phone] Allergies Allergen (clinical drug ingredient) Drug/Non Drug [...] Problem Status W/U Status Risk Notes Problem [id number] Gastroesophageal reflux disease without esophagitis (K21.9) Active confirmed Problem 851799983 Elevated liver enzymes (R74.8) Active confirmed Problem [id number] Constipation, unspecified constipation type (K59.00) Active confirmed Plan Of Treatment Pending Test Test Name Order Date LIVER PROFILE 04/06/2016 Insurance Providers Payer Name Payer Address Payer Phone Subscriber Number Group Number Insured Name Patient Relationship to Insured Coverage Start Date Coverage End Date [facility] [address] [place] [address] [id number] ZITA PAPPAS Self - patient is the insured MEDICARE OF [facility] [address] [place] [address] [id number] ZITA PAPPAS Self - patient is the insured Medical (General) History Medical History History ICD Code GERD--UPPER ENDOSCOPY & COLO NOSCOPY IN 2007--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
--- OUTSIDE RECORDS SUMMARY | 2025-08-19 05:01 | XMS_ITS | Encounter Summary ---
Author Organization [employer] Address [address] [place] [address] Care Team Providers Care Jai Alai Player Name Role Phone Tony Arreola MD Primary Care Provider [phone] Encounter Details Date Type Department Care Team (Late st Contact Info) Description 12/28/2024 Lab Requisition [facility] - Main Lab [address] [facility] [place] [address] Tony Arreola MD 38 [facility] [address] [place], [phone] Weakness; Unspecified dementia, unspecified severity, without [...] V28) documented in this encounter Care Teams Jai Alai Player Relationship Specialty Start Date End Date Tony Arreola MD 38 [facility] [address] [place], [phone] PCP - General Family Medicine 12/14/24 documented as of this encounter
--- OUTSIDE RECORDS SUMMARY | 2025-08-19 05:01 | XMS_ITS | Encounter Summary ---
Author Organization [employer] Address [address] [facility] [address] [place] [address] Care Team Providers Care Lap Layer Name Role Phone Myah Singh MD Primary Care Provider [phone] Encounter Details Date Type Department Care Team ([facility] st Contact Info) Description 03/26/2025 Telephone [facility] MEDICINE [address] [place], [place] [phone] Myah Singh MD [address] [place], [place] [phone] Social History Tobacco Use Types Packs/Day Years [...] documented as of this encounter Care Teams Lap Layer Relationship Specialty Start Date End Date Myah Singh MD [address] [place] [address] PCP - General Family Medicine 11/08/12 [facility] 12/31/24 07/29/25 documented as of this encounter
--- OUTSIDE RECORDS SUMMARY | 2025-08-19 05:01 | XMS_ITS | Clinical Summary ---
Author Organization [employer] Address [address] [facility] 7t [place] [address] Care Team Providers Care Plane Captain Name Role Phone Myah Singh MD Primary Care Provider Allergies Active Allergy Reactions Criticality Noted Date [...] BY MOUTH EVERY DAY AFTER MEALS 11/08/20 22 Active famotidine (Pepcid) 40 MG tablet Take 40 mg by mouth in the morning. 09/15/20 Active FLUoxetine (PROzac) 40 MG capsule Take 40 mg by mouth in the morning. 09/12/20 22 Active furosemide (Lasix) 20 MG tablet 11/07/20 22 Active hydrocortisone 1 % lotion 09/06/20 Active [...] complication, without long-term current use of insulin ([facility]) INJECT 1 BY INTO MACHINE [...] unspecified whether stage 3a or 3b CKD ([facility]) TEST BLOOD SUGAR DAILY AND NEEDED 100 each 10 08/05/20 25 Active cetirizine (ZyrTEC) 5 MG tablet TAKE 1 TABLET (5 MG) BY MOUTH IN THE MORNING. 30 tablet 1 08/11/20 25 Active glucose blood (FREESTYLE LITE) test stripIndication s:Type 2 diabetes mellitus with stage 3 chronic kidney disease, without long-term current use of insulin, unspecified whether stage 3a or 3b CKD ([facility]) TEST BLOOD SUGAR DAILY AND NEEDED 100 [...] PM EDT): -Oct 2015 -Previously following with [facility] [place], upcoming appt -Continue risk factor mangement Assessment & Plan (01/07/2023 4:34 PM EST): -Oct 2015 -Previously following with [facility], upcoming appt -Continue risk factor mangement [...] cm2. Mild aortic valve regurgitation. -Seen by printed circuit board pcb draftsman, Dr. Garcia in [facility], on 07/27/23, since she is not a [...] cm2. Mild aortic valve regurgitation. -Seen by printed circuit board pcb draftsman, Dr. Garcia in [facility], on 07/27/23, since she is not a [...] cm2. Mild aortic valve regurgitation. -Seen by printed circuit board pcb draftsman, Dr. Garcia in [facility], on 07/27/23, since she is not a [...] -Pt has an upcoming appt with her printed circuit board pcb draftsman Assessment & Plan (01/07/2023 5:17 PM EST): - Most recent TTE 10/14/22: There is mild calcification of the aortic valve. There is moderate aortic valve stenosis. The peak aortic gradient is 33 mmHg.The mean gradient is 16 mmHg. There is mild aortic valve regurgitation. -Pt has loud murmur consistent with aortic stenosis -NSTEMI in 2014 -Pt has an upcoming appt with her printed circuit board pcb draftsman Anemia 01/07/2023 Assessment & Plan (01/07/2023 5:24 PM EST): - anemia of chronic disease (CKD, cirrhosis) - continue ferrous sulfate - check lab Diabetes mellitus, type 2 12/28/2022 Overview (04/07/2025): Frequent utis from jardiance Assessment & Plan (05/06/2025 11:29 AM EDT): Blood sugars are in range (90-110)without jardance, pt grandaughter and APARTMENT LEASING SPECIALIST deny any swelling, sob, orthopnea edema or [...] Plan (01/17/2025 5:56 AM EST): -Following with [facility] [place] [facility], last seen in January [...] was seeing psychiatrist while staying in the [facility] -work on risk factor management -reviewed safety [...] Risk: CKD, age, NSTEMI, Hx CVA/TIA, DM2 -Mat Cutter: [facility] on 01/23[facility]23 (Grade [...] Risk: CKD, age, NSTEMI, Hx CVA/TIA, DM2 -Mat Cutter: [facility] 01[facility]23[facility]23 (Grade [...] Risk: CKD, age, NSTEMI, Hx CVA/TIA, DM2 -Mat Cutter: Previously [facility] pt has a new appt on 01/23/23 [...] Risk: CKD, age, NSTEMI, Hx CVA/TIA, DM2 -Mat Cutter: Previously [facility], pt has a new appt on 01/23/23 [...] Risk: CKD, age, NSTEMI, Hx CVA/TIA, DM2 -Mat Cutter: Previously [facility] pt has a new appt on 01/23/23 [...] [facility], last seen in Jun 2024 [...] [facility], last seen in November 2023 [...] [facility], last seen on 05/31/23. - Continue mirabegron as prescribed, advised to have drug holiday from mirabegron, resume when pt's symptoms worsen Assessment & Plan (05/08/2023 11:04 AM EDT): - in a setting of dementia, DM2, and SGLT-2 inhibitor use - Followed by Dr. Vallecillo, [facility] - Continue mirabegron as prescribed Assessment & Plan (01/07/2023 4:51 PM EST): - in a setting of dementia, DM2, and SGLT-2 inhibitor use - Followed by Dr. Vallecillo, [facility] - Continue mirabegron as prescribed [...] Assessment & Plan (01/17/2025 6:08 AM EST): -Tempering Oven Operator: Dr. Martinez -Avoid nephrotoxic drugs and use renal dosing. -Recheck renal function today -On Jardiance, at low-dose, 10mg daily. Caution with UTI Assessment & Plan (02/04/2024 1:13 PM EDT): -Tempering Oven Operator: Dr. Martinez -Baseline: 09/26/22 BUN 29; SCr 1.2, eGFR 43, AST 12, ALT 19, AP 91 -Avoid nephrotoxic drugs and use renal dosing. -Recheck renal function today -On Jardiance, at low-dose, 10mg daily. Assessment & Plan (09/10/2023 4:32 PM EDT): -Tempering Oven Operator: Dr. Martinez, last seen in 2017 or 2018. Per caregiver, pt was discharged due to stability -Baseline: 09/26/22 BUN 29; SCr 1.2, eGFR 43, AST 12, ALT 19, AP 91 -Avoid nephrotoxic drugs and use renal dosing. -Recheck renal function today -On Jardiance, at low-dose, 10mg daily. Assessment & Plan (05/08/2023 11:04 AM EDT): -Tempering Oven Operator: Dr. Martinez, last seen in 2017 or 2018. Per caregiver, pt was discharged due to stability -Baseline: 09/26/22 BUN 29; SCr 1.2, eGFR 43, AST 12, ALT 19, AP 91 -Avoid nephrotoxic drugs and use renal dosing. -Recheck renal function today -On Jardiance, at low-dose, 10mg daily. Assessment & Plan (01/07/2023 4:54 PM EST): -Tempering Oven Operator: Dr. Martinez, last seen in 2017 or [...] Type Department Care Team Description 08/09/2025 Refill [facility] MEDICINE [address] [place] [address] Myah Singh MD 08/07/2025 Orders Only GENERIC EXTERNAL DATA DEPARTMENT Provider, Generic External Data 08/04/2025 Refill [facility] MEDICINE [address] [place] [address] Myah Singh MD Type 2 diabetes mellitus with stage 3 chronic kidney disease, without long-term current use of insulin, unspecified whether stage 3a or 3b CKD ([facility]) 07/21/2025 Refill [facility] [address] [place] [address] Liliana Sears MD 07/21/2025 Refill [facility] [address] [place] [address] Myah Singh MD Allergic rhinitis, unspecified seasonality, unspecified trigger 07/10/2025 Telephone [facility] MEDICINE [address] [place] [address] Myah Singh MD Durable Medical Equipment (DME: Multiple Items) 05/28/2025 Refill [facility] [address] [place] [address] Myah Singh MD Primary hypertension from Last [...] unspecified whether stage 3a or 3b CKD ([facility]) Dyslipidemia POCT GLYCOSYLATED HEMOGLOBIN (HGB A1C) Routine 09/11/2023 10:29 AM EDT Type 2 diabetes mellitus with stage 3 chronic kidney disease, without long-term current use of insulin, unspecified whether stage 3a or 3b CKD ([facility]) from Last 3 Months or Most Recently Relevant to Health Maintenance Results * Glucose, Whole Blood (08/07/2025 12:20 PM EDT) Glucose, Whole Blood 90 60 - 115 mg/dL [facility] Comment:METER #: [id number] 8 08/07/2025 12:2 0 PM EDT 08/07/2025 4:35 PM EDT us Generic External Data Provider LAB BLOOD ORDERAB LES Final Result [facility] [address] [place] [phone] * SARS-CoV-2 RNA, Influenza A/B, and RSV RNA, Ql NAAT (08/07/2025 8:48 AM EDT) Influenza A PCR NEGATIVE Negative [facility] Influenza B PCR NEGATIVE Negative [facility] Resp Syncy Virus RNA Qual PCR NEGATIVE Negative [facility] SARS COV2 PCR NEGATIVE Negative [facility] Comment:All test results mus t [...] use by authorized laboratories.Testing performed on the [employer] GeneXpert utilizingreal-time RT-PCR.All SARS CoV2 and positive influenza A/B results arereported to [facility]. 08/07/2025 8:48 AM EDT 08/07/2025 8:51 AM EDT us Generic External Data Provider LAB MICROBIOLOGY - GENERAL ORDERABLES Final Result Performing Organization Address [facility] Co de Phone Number [facility] [address] [place] [phone] * Lipid Panel with Reflex to Direct LDL (01/22/2024 12:20 PM EST) Triglycerides 130 <150 mg/dL [facility] Comment:Desirable Triglyceri de: less than 150 mg/dLBorderline High Triglyceride 150-199 mg/dLHigh Triglyceride: 200-499 mg/dLVery High Triglyceride: greater than or equal to 5OO mg/dL Cholesterol 109 <200 mg/dL [facility] Comment:Desirable Cholestero l: less than 200 mg/dLBorderline High Cholesterol: 200-239 mg/dLHigh Cholesterol: greater than 239 mg/dL LDL Cholesterol Calculated 41 <100 mg/dL [facility] Comment:Desirable LDL: less than 100 mg/dLNear Optimal/Above Optimal LDL: 110- 129 mg/dLBorderline High LDL: 130-159 mg/dLHigh LDL: 160-189 mg/dLVery High LDL: greater than or equal to 190 mg/dL HDL Cholesterol 42 >40 mg/dL [facility] Comment:Desirable HDL: great er than 40 mg/dL Note: This HDL assay may give artificially low results in patients with liver disease. Blood 01/22/2024 12:2 0 PM EST 01/22/2024 1:11 PM EST Myah Singh MD LAB BLOOD ORDERABLES Final Resul t Performing Organization Address City/[facility]/ZIP Co de Phone Number [facility] [address] [place] [phone] * (ABNORMAL) POCT glycosylated hemoglobin (Hgb A1c) (09/11/2023 10:29 AM EDT) Hemoglobin A1C 6.2(A) 4.0 - 6.0 % QC Media Lot # [id number] Lot# Expiration Date Blood Capillary blood specimen / Unknown 09/11/2023 10:29 AM EDT Myah Singh MD POINT OF CARE TEST ENTER/EDIT OR DERABLES Final Result from Last 3 Months or Most Recently Relevant to Health Maintenance Insurance [facility] ASSISTED OPTIONS (O D-SNP) Care Teams Plane Captain Relationship Specialty Start Date End Date Myah Singh MD [address] [place] [address] PCP - General Family Medicine 11/08/12
--- OUTSIDE RECORDS SUMMARY | 2025-08-19 05:01 | XMS_ITS | Encounter Summary ---
Author Organization [employer] Address [address] [facility] 7t [place] [address] Care Team Providers Care Chief Information Security Officer Name Role Phone Myah Singh MD Primary Care Provider [phone] Reason for Visit * Reason Comments Med Refill Encounter Details Date Type Department Care Team (Late st Contact Info) Description 11/29/2023 Refill [facility]S [address] [place], [place] [phone] Myah Singh MD [address] [place], [place] [phone] Vitamin D deficiency Social History Tobacco Use [...] documented as of this encounter Care Teams Chief Information Security Officer Relationship Specialty Start Date End Date Myah Singh MD [address] [place] [address] PCP - General Family Medicine 11/08/12 [facility] 12/31/24 07/29/25 documented as of this encounter
--- OUTSIDE RECORDS SUMMARY | 2025-08-19 05:01 | XMS_ITS | Encounter Summary ---
Author Organization [facility] Address [address] [facility] [address] [place] [address] Phone Care Team Providers Care Distribution Center Associate Name Role Phone Unavailable Primary Care Provider Unavailabl e Reason for Visit * Reason Comments Med Refill Encounter Details Date Type Department Care Team ([facility] st Contact Info) Description 12/10/2021 Refill [facility] [address] [facility] [address] [place] [phone] Chino Martinez MD [address] [facility] [address] [place] [phone] Social History Tobacco Use Types Packs/Day Years [...]
--- OUTSIDE RECORDS SUMMARY | 2025-08-19 05:01 | XMS_ITS | Encounter Summary ---
Author Organization [facility] Address [address] [place] [address] Care Team Providers Care Apartment Leasing Specialist Name Role Phone Tony Arreola MD Primary Care Provider [phone] Encounter Details Date Type Department Care Team (Late st Contact Info) Description 11/29/2024 Lab Requisition [facility] - Main Lab [address] [place] [address] Tony Arreola MD 38 [facility] [address] [place], [phone] Weakness; Unspecified dementia, unspecified severity, without [...] [facility] Comment:Calculation based on the Chronic [...] Resul t [facility] [address] [place] [address], * (ABNORMAL) Complete blood count (12/02/2024 7:21 AM EST) [facility] WBC 6.8 4.8 - 10.8 K/mcL LAB [...] LAB HEMETOLOGY METHOD 12/02/2024 10:57 AM EST [facility] Blood Venous blood specimen / Unknown Venipuncture / Unknown 12/02/2024 7:21 AM EST 12/02/2024 10:33 AM EST us Tony Arreola MD LAB BLOOD ORDERABLES Final Resul t [facility] [address] [place] [address], documented in this encounter Visit Diagnoses Diagnosis Weakness Other malaise and fatigue Unspecified dementia, unspecified severity, without behavioral disturbance, psychotic disturbance, mood disturbance, and anxiety (CMS/HCC V24, CMS/HCC V28) documented in this encounter Care Teams Apartment Leasing Specialist Relationship Specialty Start Date End Date Tony Arreola MD [address] [place] [address] [address] [place], [phone] PCP - General Family Medicine 12/14/24 documented as of this encounter
--- OUTSIDE RECORDS SUMMARY | 2025-08-19 05:01 | XMS_ITS | Encounter Summary ---
Author Organization [employer] Address [address] [place] [address] [address] [place] [address] Care Team Providers Care It Security Engineer Name Role Phone Myah Singh MD Primary Care Provider [phone] Reason for Visit * Reason Onset Date Comments Durable Medical Equipment 01/30/2023 Encounter Details Date Type Department Care Team ([facility] st Contact Info) Description 01/30/2023 Telephone [facility] [address] [place], [place] [phone] Myah Singh MD [address] [place], [place] [phone] Durable Medical Equipment Social History Tobacco Use [...] call me or CHACE Beltran also patient BELL TIER can call them as they are the vendor for more information [phone] * Telephone Encounter - Uriahchadshy Rodriguezmahad Marion - 01/30/2023 10:00 AM EST Tc from pt BELL TIER Jonathan stating that for the last two months pt Large Pull ups and Wipes have not been deliver Please contact jonathan at [phone] documented in this encounter Plan of Treatment Not on file documented as of this encounter Visit Diagnoses Not on filedocumented in this encounter Care Teams It Security Engineer Relationship Specialty Start Date End Date Myah Singh MD [address] [place] [phone] PCP - General Family Medicine 11/08/12 [facility] 12/31/24 07/29/25 documented as of this encounter
--- OUTSIDE RECORDS SUMMARY | 2025-08-19 05:01 | XMS_ITS | Encounter Summary ---
Author Organization [facility] Address [address] [place] [address] Care Team Providers Care Sales Enablement Lead Name Role Phone Tony Arreola MD Primary Care Provider [phone] Encounter Details Date Type Department Care Team (Late st Contact Info) Description 12/14/2024 Lab Requisition [facility] - Main Lab [address] [place] [address] Tony Arreola MD 38 [facility] [address] [place], [phone] Weakness; Unspecified dementia, unspecified severity, without [...] mmol/L LAB CHEMISTRY METHOD 12/16/2024 1:55 PM [facility] Potassium 4.1 3.5 - 5.5 mmol/L LAB CHEMISTRY METHOD 12/16/2024 1:55 PM [facility] Chloride 113(H) 96 - 110 mmol/L LAB CHEMISTRY METHOD 12/16/2024 1:55 PM [facility] CO2 28 21 - 32 mmol/L LAB CHEMISTRY METHOD 12/16/2024 1:55 PM [facility] Anion Gap 5 3 - 11 LAB CHEMISTRY METHOD 12/16/2024 1:55 PM [facility] Glucose 88 70 - 100 mg/dL LAB CHEMISTRY METHOD 12/16/2024 1:55 PM [facility] BUN 25 5 - 25 mg/dL LAB CHEMISTRY METHOD 12/16/2024 1:55 PM [facility] Creatinine 1.26(H) 0.50 - 1.10 mg/dL LAB CHEMISTRY METHOD 12/16/2024 1:55 PM [facility] eGFR 41(L) >=60 mL/min/1. 73m2 LAB CHEMISTRY METHOD 12/16/2024 1:55 PM [facility] Comment:Calculation based on the Chronic Kidney Disease Epidemiology Collaboration (CKD-EPI) equation refit without adjustment for race. BUN/Creatinine Ratio 19.8 LAB CHEMISTRY METHOD 12/16/2024 1:55 PM [facility] Calcium 9.3 8.5 - 10.5 mg/dL LAB CHEMISTRY METHOD 12/16/2024 1:55 PM [facility] Blood Venous blood specimen / Unknown Venipuncture / Unknown 12/16/2024 7:20 AM EST 12/16/2024 11:32 AM EST us Tony Arreola MD LAB BLOOD ORDERABLES Final Resul t [facility] [address] [place] [address], [place] [phone] * (ABNORMAL) Complete blood count (12/16/2024 7:20 AM EST) [facility] WBC 5.4 4.8 - 10.8 K/mcL LAB HEMETOLOGY METHOD 12/16/2024 12:51 PM [facility] RBC 4.60 3.80 - 4.80 M/mcL LAB HEMETOLOGY METHOD 12/16/2024 12:51 PM [facility] Hemoglobin 13.4 11.5 - 16.0 g/dL LAB HEMETOLOGY METHOD 12/16/2024 12:51 PM [facility] Hematocrit 43.8 35.0 - 47.0 % LAB HEMETOLOGY METHOD 12/16/2024 12:51 PM [facility] MCV 95.8 79.0 - 98.0 FL LAB HEMETOLOGY METHOD 12/16/2024 12:51 PM [facility] MCH 29.3 27.0 - 32.0 pcg LAB HEMETOLOGY METHOD 12/16/2024 12:51 PM [facility] MCHC 30.6(L) 32.0 - 37.0 g/dL LAB HEMETOLOGY METHOD 12/16/2024 12:51 PM [facility] RDW 14.9 11.0 - 15.0 % LAB HEMETOLOGY METHOD 12/16/2024 12:51 PM [facility] Platelets 135 130 - 400 K/mcL LAB HEMETOLOGY METHOD 12/16/2024 12:51 PM [facility] MPV 12.3(H) 7.0 - 11.0 FL LAB HEMETOLOGY METHOD 12/16/2024 12:51 PM [facility] NRBC 0.0 <1.0 % LAB HEMETOLOGY METHOD 12/16/2024 12:51 PM [facility] NRBC Absolute 0.00 <0.10 K/mcL LAB HEMETOLOGY METHOD 12/16/2024 12:51 PM EST [facility] Blood Venous blood specimen / Unknown Venipuncture / Unknown 12/16/2024 7:20 AM EST 12/16/2024 11:32 AM EST us Tony Arreola MD LAB BLOOD ORDERABLES Final Resul t [facility] [address] [place] [address], documented in this encounter Visit Diagnoses Diagnosis Weakness Other malaise and fatigue Unspecified dementia, unspecified severity, without behavioral disturbance, psychotic disturbance, mood disturbance, and anxiety (CMS/HCC V24, CMS/HCC V28) documented in this encounter Care Teams Sales Enablement Lead Relationship Specialty Start Date End Date Tony Arreola MD [address] [place] [address] [address] [place], [phone] PCP - General Family Medicine 12/14/24 documented as of this encounter
--- OUTSIDE RECORDS SUMMARY | 2025-08-19 05:01 | XMS_ITS | Clinical Summary ---
Author Organization 299 [facility] Address [address] [place] [address] Phone Care Team Providers Care House Officer Name Role Phone Tony Arreola MD Primary Care Provider [phone] Social History Tobacco Use Types Packs/Day Years [...] Resul t [facility] [address] [place] [address], * (ABNORMAL) Comprehensive metabolic panel (02/24/2025 6:34 AM EDT) Sodium 142 133 - 145 mmol/L LAB CHEMISTRY METHOD 02/24/2025 12:24 PM EDT [facility] Potassium 4.1 3.5 - 5.5 mmol/L LAB CHEMISTRY METHOD 02/24/2025 12:24 PM [facility] Chloride 108 96 - 110 mmol/L LAB CHEMISTRY METHOD 02/24/2025 12:24 PM [facility] CO2 28 21 - 32 mmol/L LAB CHEMISTRY METHOD 02/24/2025 12:24 PM [facility] Anion Gap 6 3 - 11 LAB CHEMISTRY METHOD 02/24/2025 12:24 PM [facility] Glucose 91 70 - 100 mg/dL LAB CHEMISTRY METHOD 02/24/2025 12:24 PM [facility] BUN 30(H) 5 - 25 mg/dL LAB CHEMISTRY METHOD 02/24/2025 12:24 PM [facility] Creatinine 1.02 0.50 - 1.10 mg/dL LAB CHEMISTRY METHOD 02/24/2025 12:[facility] eGFR 53(L) >=60 mL/min/1. 73m2 LAB CHEMISTRY METHOD 02/24/2025 12:24 PM [facility] Comment:Calculation based on the Chronic Kidney Disease Epidemiology Collaboration (CKD-EPI) equation refit without adjustment for race. BUN/Creatinine Ratio 29.4 LAB CHEMISTRY METHOD 02/24/2025 12:24 PM [facility] Calcium 10.5 8.5 - 10.5 mg/dL LAB CHEMISTRY METHOD 02/24/2025 12:24 PM [facility] AST (SGOT) 31 10 - [...] Resul t [facility] [address] [place] [address], from Last 3 Months or Most Recently Relevant to Health Maintenance Insurance [facility] MEDICARE Member Subscriber Plan / Payer (Ef fective 2019-Present) Name:Sienna Mendez Relation to Subscriber:Self Name:Sienna Mendez Payer ID:[id number] Group ID:[id number] Type:Not on file Address: [address] [place] [id number] Care Teams House Officer Relationship Specialty Start Date End Date Tony Arreola MD [address] [place] [address] [address] [place], [phone] PCP - General Family Medicine 12/14/24
[2025-08-19 05:14] LABS: Hematocrit 39.0 % (37.0-47.0); Hemoglobin 12.6 g/dl (12.0-16.0); Mean Corpuscular Volume 89.9 fL (80.0-98.0); Platelet Count 122 X10*3/uL (160-400); Red Blood Count 4.34 X10*6/uL (4.20-5.50)
== END 2025-08-19 04:59 | disposition home or self-care (01) ==
LOC: HO.MMNH2L 04:58
PROVIDERS: Visit Provider Student in an Organized Health Care Education/Training Program
DX: G30.9 Alzheimer's disease, unspecified (principal); F02.80 Dementia in other diseases classified elsewhere, unspecified severity, without behavioral disturbance, psychotic disturbance, mood disturbance, and anxiety; I67.89 Other cerebrovascular disease; G47.33 Obstructive sleep apnea (adult) (pediatric); B99.9 Unspecified infectious disease; Z99.89 Dependence on other enabling machines and devices; Z79.82 Long term (current) use of aspirin; Z79.899 Other long term (current) drug therapy
CPT/HCPCS: 36415; 85025; 99202

== ENCOUNTER → 2025-08-19 14:18 | Outpatient (AMB) | payer OTHER, SELFPAY ==
--- NOTE | 2025-08-19 14:40 | A.OFFVIS_ITS ---
Intake Visit Reasons: Follow Up AD Allergies ceftazidime (Ceftazidime) Allergy (Mild, Verified 08/13/25 08:54) UNKNOWN benzocaine (Benzocaine) Allergy (Unknown, Verified 08/13/25 08:54) UNKNOWN butamben (From Cetacaine) Allergy (Unknown, Verified 08/13/25 08:54) UNKNOWN metoclopramide (From Reglan) Allergy (Unknown, Verified 08/13/25 08:54) UNKNOWN morphine (Morphine) Allergy (Unknown, Verified 08/13/25 08:54) SWELLING tetracaine (From Cetacaine) Allergy (Unknown, Verified 08/13/25 08:54) UNKNOWN Medication List - Last Reconciled 08/19/25 by Darien Estevez MD amlodipine 5 mg PO DAILY ascorbic acid (vitamin C) (Vitamin C) 500 mg PO BID aspirin 81 mg PO DAILY atorvastatin 20 mg PO DAILY calcium carbonate-vitamin D3 600 mg-5 mcg (200 unit) (Calcium 600 + D(3)) 1 tab PO BID cetirizine 5 mg PO DAILY docusate sodium 100 mg PO BID donepezil 10 mg PO DAILY ferrous sulfate 1 tab PO Q OTHER DAY fluoxetine 40 mg PO BEDTIME haloperidol lactate 1 mg PO BEDTIME lisinopril 20 mg PO DAILY memantine 10 mg PO BID mirabegron ER (Myrbetriq) 50 mg PO DAILY mirtazapine 1 tab PO BEDTIME montelukast 10 mg PO BEDTIME omeprazole 40 mg PO DAILY@0630 sulfamethoxazole-trimethoprim 800-160 mg (Bactrim DS) 1 tab PO BID 5 days trazodone 50 mg PO BEDTIME walker Forearm bearing walker HPI Comments Details: ?89 yr female with AD that has not changed significantly. She has been worsening since UTI last week and became very weak. In the [facility] [place] she fell and fractured her wrist. She is at [facility]. Has a cast for a month. She is forgetful, with no significant change in the last 6 months per daughter. She needs help assistance with bathing and dressing. Can put on her Depends herself. Recognizes caregivers and family . Walks with walker. She can still express her needs. Prefers to sleep and resists walking. Has no bladder control and bowel incontinence at times. She has been noted to have progressive short- term memory loss for about 8 years. She has a TOOL INSPECTOR that helps her. She may of had a minor stroke in October of 2015. At that time a CAT scan of the head showed no acute findings. She has mild diffuse atrophy as well has white matter microvascular changes. EEG on 11/25/15, showed mild diffuse slowing. [facility] Medical History (Updated 08/19/25 @ 14:44 by Darien Estevez MD) Sepsis Cirrhosis of liver DONAVAN (obstructive sleep apnea) Diabetes Allergic dermatitis Hives CVA (cerebral vascular accident) Non-alcoholic micronodular cirrhosis of liver CKD (chronic kidney disease) Dementia Hypertension Surgical History Hx of cholecystectomy No pertinent past surgical history Family History Father No problems noted. Mother No problems noted. Social History Household Members: Unknown / Unable to assess Housing: Unknown / Unable to assess Do you presently have visiting nurse or other home services: No Alcohol intake: current Alcohol intake frequency: does not drink Patient Tobacco Use Status: Former Tobacco user Second Hand Smoke Exposure: No Advance Directives Date on File: 12/07/21 service: No Review of Systems Const Details: Sleep:? Difficulty getting to sleep?denies.? Difficulty maintaining sleep?denies? .? Urge to move legs?denies.? Teeth grinding?denies.? Shouting or Kicking during sleep?denies.? Abnormal behavior during sleep?denies.? Excessive sleep?denies.? Snoring?admits.? Daytime sleepiness?denies.? ?? General/Constitutional:? Change in appetite?denies.? Chills?denies.? Fatigue?denies.? Fever?denies .? Weight gain?denies.? Weight loss?denies.? ?? Ophthalmologic:? Blurred vision?denies.? Diminished visual acuity?denies.? ?? ENT:? Stuffiness?denies.? Decreased hearing?denies.? Dry mouth?denies.? Ear pain?denies.? Nosebleed?denies.? Ringing in the ears?denies.? Sinus pain?denies .? Sore throat?denies.? Swollen glands?denies.? ?? Endocrine:? Cold intolerance?denies.? Excessive thirst?denies.? Frequent urination? denies.? Heat intolerance?denies.? ?? Respiratory:? Shortness of breath?admits.? Chest pain?denies.? Cough?denies.? ?? Breast:? Breast lump?denies.? Nipple discharge?denies.? ?? Cardiovascular:? Chest pain at rest?denies.? Chest pain with exertion?denies.? Claudication?denies.? Dizziness?denies.? Fluid accumulation in the legs?denies.? Irregular heartbeat?denies.? Palpitations?denies.? ?? Gastrointestinal:? Abdominal pain?denies.? Constipation?admits.? Diarrhea?denies.? Difficulty swallowing?denies.? Heartburn?denies.? Nausea?denies.? Rectal bleeding?denies.? ?? Hematology:? Easy bruising?denies.? Prolonged bleeding?denies.? ?? Genitourinary:? Frequent urination?denies.? Urgency?admits.? Incontinence?admits.? Erectile Dysfunction?denies.? ?? Musculoskeletal:? Neck pain?denies.? Back pain?denies.? Muscle aches?denies.? Painful joints?denies.? Sciatica?denies.? Weakness?denies.? ?? Podiatric:? Difficulty walking?denies.? Foot numbness?denies.? ?? Neurologic:? Difficulty swallowing?denies.? Balance difficulty?denies.? Coordination? normal.? Difficulty speaking?denies.? Dizziness?admits.? Fainting?denies.? Gait abnormality?admits.? Headache?admits.? Loss of strength?denies.? Loss of use of extremity?denies.? Low back pain?denies.? Memory loss?admits.? Seizures?denies.? Tics?denies.? Tingling/Numbness?denies.? Transient loss of vision?denies.? Tremor?denies.? ?? Psychiatric:? Anxiety?denies.? Auditory/visual hallucinations?denies.? Delusions?denies .? Depressed mood?admits.? Stressors?denies.? Substance abuse?denies.? Suicidal thoughts?denies.? ?? Physical Exam Neuro Other: Neurological: ? Abnormal neurological findings:?[facility] . She is in a wheelchair but is able to walk with a walker. Mild proximal hip flexor weakness in both lower extremities.? Mental Status:?alert and oriented X 2,?.? Cranial Nerves:?Pupils are equal, round and reactive to light. Fundoscopy shows normal disc bilaterally. External occular muscles are intact. Visual motley are full, no ptosis. Face is symmetrical, no facial weakness or droop. Facial sensations are normal. Tongue protrudes in midline. Palate elevates symmetrically. Shoulder shrugging is normal..? Motor Examination:?Normal muscle tone, bulk and strength,?No atrophy or fasciculations,?No drift of the extended upper extremities,?Deep tendon reflexes are 2+?,?Plantars are flexor?.? Straight Leg Raising:?90 degrees.? Sensory Exam:?Normal light touch, temperature, pinprick, vibration and joint-position sensations?,?Rhomberg sign is absent.? Coordination:?no ataxia,?no titubation,?fateiu-oq-yoyw, hxky-qmim-yhvi test and rapid alternating movements were normal.? Gait Exam:?Walks with a walker. Otherwise she is in a wheelchair.? Cerebellar Signs:?Ltsdtq-tm-gkrb and nmdg-uy-tllr is normal,?no dysdiadochokinesia?.? Extrapyramidal System:?No tremor, rigidity with normal facial expressions,?No bradykinesia, no bradyphrenia. Normal arm swing and posture. No propulsion or retropulsion.? Speech:?Normal,?no dysphasia or dysarthria..? Mini Mental Status Exam: ? Level of Consciousness:?Alert.? Orientation:?Knows correct city, and correct location.? Registration:?Able to register 3 objects.? Attention:?unable.? Recall:?Able to recall 2 out of 3 objects.? Language:?Normal spontaneous speech, fluency, repetition,naming, comprehension, reading and writing.? Total Score:?22/30.? General Examination: ? GENERAL APPEARANCE:?normal,?in no acute distress.? HEAD:?normocephalic,?atraumatic.? EYES:?sclera non-icteric,?conjunctiva clear.? EARS:?auditory canal clear,?tympanic membrane intact, clear.? NOSE:?no lesions.? ORAL CAVITY:?gums normal,?mucosa moist,?no lesions.? THROAT:?clear.? NECK/THYROID:?no cervical lymphadenopathy,?thyroid normal,?neck supple, full range of motion,?no carotid bruit.? SKIN:?no rashes,?no significant birthmarks.? HEART:?S1, S2 normal,?no murmurs.? LUNGS:?clear anteriorly and posteriorly.? CHEST:?no gross rib deformity,?clear to auscultation.? BACK:?normal exam of spine.? EXTREMITIES:?no edema.? PERIPHERAL PULSES:?normal.? PSYCH:?as above.? Assessment & Plan Assessment & Plan (1) Alzheimer's dementia: Code(s): G30.9 - Alzheimer's disease, unspecified; F02.80 - Dementia in other diseases classified elsewhere, unspecified severity, without behavioral disturbance, psychotic disturbance, mood disturbance, and anxiety Category: Medical (2) Cerebral microvascular disease: Code(s): I67.89 - Other cerebrovascular disease Category: Medical (3) DONAVAN on CPAP: Comment: Severe degree of sleep apnea. The AHI was 35/hr, oxygen don was 85%. REM was not recorded. Code(s): G47.33 - Obstructive sleep apnea (adult) (pediatric) Category: Medical Plan Continue current medications Medications: New memantine 10 mg PO BID 60 tabs 8RF Changed From haloperidol lactate 1 mg PO BEDTIME To haloperidol lactate 1 mg (0.5 mL) PO BEDTIME 15 mL 5RF 30 days From donepezil 10 mg PO DAILY To donepezil 10 mg PO DAILY 30 tabs 8RF 30 days Coding Level of Care Code Tele New Pt Level 4 (86753) Diagnoses Alzheimer's dementia G30.9; F02.80 Cerebral microvascular disease I67.89 DONAVAN on CPAP G47.33
--- OUTSIDE RECORDS SUMMARY | 2025-08-19 17:33 | XMS_ITS | Clinical Summary ---
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 Vallecillo, [facility] - Continue mirabegron as prescribed Unspecified dementia, [...] to 50 Years) Discontinued 02/23/2015, 10/04/2001 Insurance [facility] ([id number]) [place] [phone] [facility] ([id number])
--- OUTSIDE RECORDS SUMMARY | 2025-08-19 17:33 | XMS_ITS | Encounter Summary ---
Author Organization [facility] Address [address] [place] [address] Care Team Providers Care Social Media Senior Associate Name Role Phone Tony Arreola MD Primary Care Provider Encounter Details Date Type Department Care Team (Late st Contact Info) Description 12/14/2024 Lab Requisition [facility] - Main Lab [address] [place] [address] Tony Arreola MD 38 [facility] [address] [place], [phone] Weakness; Unspecified dementia, unspecified severity, without [...] mmol/L LAB CHEMISTRY METHOD 12/16/2024 1:55 PM [facility] Potassium 4.1 3.5 - 5.5 mmol/L LAB CHEMISTRY METHOD 12/16/2024 1:55 PM [facility] Chloride 113(H) 96 - 110 mmol/L LAB CHEMISTRY METHOD 12/16/2024 1:55 PM [facility] CO2 28 21 - 32 mmol/L LAB CHEMISTRY METHOD 12/16/2024 1:55 PM [facility] Anion Gap 5 3 - 11 LAB CHEMISTRY METHOD 12/16/2024 1:55 PM [facility] Glucose 88 70 - 100 mg/dL LAB CHEMISTRY METHOD 12/16/2024 1:55 PM [facility] BUN 25 5 - 25 mg/dL LAB CHEMISTRY METHOD 12/16/2024 1:55 PM [facility] Creatinine 1.26(H) 0.50 - 1.10 mg/dL LAB CHEMISTRY METHOD 12/16/2024 1:55 PM [facility] eGFR 41(L) >=60 mL/min/1. 73m2 LAB CHEMISTRY METHOD 12/16/2024 1:55 PM [facility] Comment:Calculation based on the Chronic Kidney Disease Epidemiology Collaboration (CKD-EPI) equation refit without adjustment for race. BUN/Creatinine Ratio 19.8 LAB CHEMISTRY METHOD 12/16/2024 1:55 PM [facility] Calcium 9.3 8.5 - 10.5 mg/dL LAB CHEMISTRY METHOD 12/16/2024 1:55 PM [facility] Blood Venous blood specimen / Unknown Venipuncture / Unknown 12/16/2024 7:20 AM EST 12/16/2024 11:32 AM EST us Tony Arreola MD LAB BLOOD ORDERABLES Final Resul t [facility] [address] [place] [address], [place] [phone] * (ABNORMAL) Complete blood count (12/16/2024 7:20 AM EST) [facility] WBC 5.4 4.8 - 10.8 K/mcL LAB HEMETOLOGY METHOD 12/16/2024 12:51 PM [facility] RBC 4.60 3.80 - 4.80 M/mcL LAB HEMETOLOGY METHOD 12/16/2024 12:51 PM [facility] Hemoglobin 13.4 11.5 - 16.0 g/dL LAB HEMETOLOGY METHOD 12/16/2024 12:51 PM [facility] Hematocrit 43.8 35.0 - 47.0 % LAB HEMETOLOGY METHOD 12/16/2024 12:51 PM [facility] MCV 95.8 79.0 - 98.0 FL LAB HEMETOLOGY METHOD 12/16/2024 12:51 PM [facility] MCH 29.3 27.0 - 32.0 pcg LAB HEMETOLOGY METHOD 12/16/2024 12:51 PM [facility] MCHC 30.6(L) 32.0 - 37.0 g/dL LAB HEMETOLOGY METHOD 12/16/2024 12:51 PM [facility] RDW 14.9 11.0 - 15.0 % LAB HEMETOLOGY METHOD 12/16/2024 12:51 PM [facility] Platelets 135 130 - 400 K/mcL LAB HEMETOLOGY METHOD 12/16/2024 12:51 PM [facility] MPV 12.3(H) 7.0 - 11.0 FL LAB HEMETOLOGY METHOD 12/16/2024 12:51 PM [facility] NRBC 0.0 <1.0 % LAB HEMETOLOGY METHOD 12/16/2024 12:51 PM [facility] NRBC Absolute 0.00 <0.10 K/mcL LAB HEMETOLOGY METHOD 12/16/2024 12:51 PM EST [facility] Blood Venous blood specimen / Unknown Venipuncture / Unknown 12/16/2024 7:20 AM EST 12/16/2024 11:32 AM EST us Tony Arreola MD LAB BLOOD ORDERABLES Final Resul t [facility]) [facility] [address] [place] [address], documented in this encounter Visit Diagnoses Diagnosis Weakness Other malaise and fatigue Unspecified dementia, unspecified severity, without behavioral disturbance, psychotic disturbance, mood disturbance, and anxiety (CMS/HCC V24, CMS/HCC V28) documented in this encounter Care Teams Social Media Senior Associate Relationship Specialty Start Date End Date Tony Arreola MD [address] [place] [address] [address] [place], [phone] PCP - General Family Medicine 12/14/24 documented as of this encounter
--- OUTSIDE RECORDS SUMMARY | 2025-08-19 17:33 | XMS_ITS | Encounter Summary ---
Author Organization [facility] Address [address] [place] [address] Care Team Providers Care Tour Director Name Role Phone Tony Arreola MD Primary Care Provider [phone] Encounter Details Date Type Department Care Team (Late st Contact Info) Description 12/28/2024 Lab Requisition [facility] - Main Lab [address] [facility] [place] [address] Tony Arreola MD 38 [facility] [address] [place] [employer], [phone] Weakness; Unspecified dementia, unspecified severity, without [...] V28) documented in this encounter Care Teams Tour Director Relationship Specialty Start Date End Date Tony Arreola MD 38 [facility] [address] [place], [phone] PCP - General Family Medicine 12/14/24 documented as of this encounter
--- OUTSIDE RECORDS SUMMARY | 2025-08-19 17:33 | XMS_ITS | Encounter Summary ---
Author Organization [employer] Address [address] [place] [address] [address] [place] [address] Care Team Providers Care Soap Inspector Name Role Phone Myah Singh MD Primary Care Provider [phone] Reason for Visit * Reason Onset Date Comments Durable Medical Equipment 01/30/2023 Encounter Details Date Type Department Care Team ([facility] st Contact Info) Description 01/30/2023 Telephone [facility] [address] [place], [place] [phone] Myah Singh MD [address] [place], [place] [phone] Durable Medical Equipment Social History Tobacco Use [...] call me or CHACE Beltran also patient TEST DEVELOPMENT ENGINEER can call them as they are the vendor for more information [phone] * Telephone Encounter - Uriahchadshy Rodriguezmahad Marion - 01/30/2023 10:00 AM EST Tc from pt TEST DEVELOPMENT ENGINEER Jonathan stating that for the last two months pt Large Pull ups and Wipes have not been deliver Please contact jonathan at [phone] documented in this encounter Plan of Treatment Not on file documented as of this encounter Visit Diagnoses Not on filedocumented in this encounter Care Teams Soap Inspector Relationship Specialty Start Date End Date Myah Singh MD [address] [place] [id number] PCP - General Family Medicine 11/08/12 [facility] 12/31/24 07/29/25 documented as of this encounter
--- OUTSIDE RECORDS SUMMARY | 2025-08-19 17:33 | XMS_ITS | Encounter Summary ---
Author Organization [facility] Address [address] [place] [address] Care Team Providers Care Repairer Art Objects Name Role Phone Tony Arreola MD Primary Care Provider [phone] Encounter Details Date Type Department Care Team (Late st Contact Info) Description 11/29/2024 Lab Requisition [facility] - Main Lab [address] [place] [address] Tony Arreola MD 38 [facility] [address] [place], [phone] Weakness; Unspecified dementia, unspecified severity, without [...] mmol/L LAB CHEMISTRY METHOD 12/02/2024 11:14 AM [facility] Potassium 4.0 3.5 - 5.5 mmol/L LAB CHEMISTRY METHOD 12/02/2024 11:14 AM [facility] Chloride 112(H) 96 - 110 mmol/L LAB CHEMISTRY METHOD 12/02/2024 11:14 AM [facility] CO2 27 21 - 32 mmol/L LAB CHEMISTRY METHOD 12/02/2024 11:14 AM [facility] Anion Gap 5 3 - 11 LAB CHEMISTRY METHOD 12/02/2024 11:14 AM [facility] Glucose 80 70 - 100 mg/dL LAB CHEMISTRY METHOD 12/02/2024 11:14 AM [facility] BUN 28(H) 5 - 25 mg/dL LAB CHEMISTRY METHOD 12/02/2024 11:14 AM [facility] Creatinine 1.19(H) 0.50 - 1.10 mg/dL LAB CHEMISTRY METHOD 12/02/2024 11:14 AM [facility] eGFR 44(L) >=60 mL/min/1. 73m2 LAB CHEMISTRY METHOD 12/02/2024 11:14 AM [facility] Comment:Calculation based on the Chronic Kidney Disease Epidemiology Collaboration (CKD-EPI) equation refit without adjustment for race. BUN/Creatinine Ratio 23.5 LAB CHEMISTRY METHOD 12/02/2024 11:14 AM [facility] Calcium 9.3 8.5 - 10.5 mg/dL LAB CHEMISTRY METHOD 12/02/2024 11:14 AM [facility] Blood Venous blood specimen / Unknown Venipuncture / Unknown 12/02/2024 7:21 AM EST 12/02/2024 10:33 AM EST us Tony Arreola MD LAB BLOOD ORDERABLES Final Resul t [facility] [address] [place] [address], * (ABNORMAL) Complete blood count (12/02/2024 7:21 AM EST) [facility] WBC 6.8 4.8 - 10.8 K/mcL LAB HEMETOLOGY METHOD 12/02/2024 10:57 AM [facility] RBC 4.40 3.80 - 4.80 M/mcL LAB HEMETOLOGY METHOD 12/02/2024 10:57 AM [facility] Hemoglobin 12.9 11.5 - 16.0 g/dL LAB HEMETOLOGY METHOD 12/02/2024 10:57 AM [facility] Hematocrit 41.3 35.0 - 47.0 % LAB HEMETOLOGY METHOD 12/02/2024 10:57 AM [facility] MCV 93.9 79.0 - 98.0 FL LAB HEMETOLOGY METHOD 12/02/2024 10:57 AM [facility] MCH 29.3 27.0 - 32.0 pcg LAB HEMETOLOGY METHOD 12/02/2024 10:57 AM [facility] MCHC 31.2(L) 32.0 - 37.0 g/dL LAB HEMETOLOGY METHOD 12/02/2024 10:57 AM [facility] RDW 14.5 11.0 - 15.0 % LAB HEMETOLOGY METHOD 12/02/2024 10:57 AM [facility] Platelets 155 130 - 400 K/mcL LAB HEMETOLOGY METHOD 12/02/2024 10:57 AM [facility] MPV 11.6(H) 7.0 - 11.0 FL LAB HEMETOLOGY METHOD 12/02/2024 10:57 AM [facility] NRBC 0.0 <1.0 % LAB HEMETOLOGY METHOD 12/02/2024 10:57 AM [facility] NRBC Absolute 0.00 <0.10 K/mcL LAB HEMETOLOGY METHOD 12/02/2024 10:57 AM EST [facility] Blood Venous blood specimen / Unknown Venipuncture / Unknown 12/02/2024 7:21 AM EST 12/02/2024 10:33 AM EST us Tony Arreola MD LAB BLOOD ORDERABLES Final Resul t [facility] [address] [place] [address], documented in this encounter Visit Diagnoses Diagnosis Weakness Other malaise and fatigue Unspecified dementia, unspecified severity, without behavioral disturbance, psychotic disturbance, mood disturbance, and anxiety (CMS/HCC V24, CMS/HCC V28) documented in this encounter Care Teams Repairer Art Objects Relationship Specialty Start Date End Date Tony Arreola MD [address] [place] [address] [address] [place], [phone] PCP - General Family Medicine 12/14/24 documented as of this encounter
--- OUTSIDE RECORDS SUMMARY | 2025-08-19 17:33 | XMS_ITS | Encounter Summary ---
Author Organization [facility] Address [address] [facility] [address] [place] [address] Phone Care Team Providers Care Seal Extrusion Operator Name Role Phone Unavailable Primary Care Provider Unavailabl e Reason for Visit * Reason Comments Med Refill Encounter Details Date Type Department Care Team ([facility] st Contact Info) Description 12/10/2021 Refill [facility] [address] [facility] [address] [place] [phone] Chino Martinez MD [address] [facility] [address] [place] [phone] Social History Tobacco Use Types Packs/Day Years [...]
--- OUTSIDE RECORDS SUMMARY | 2025-08-19 17:33 | XMS_ITS | Encounter Summary ---
Author Organization [employer] Address [address] [facility] 7t [place] [address] Care Team Providers Care Frame Feeder Name Role Phone Myah Singh MD Primary Care Provider [phone] Encounter Details Date Type Department Care Team (Late st Contact Info) Description 01/30/2023 Telephone [facility] [address] [place], [place] [phone] Myah Singh MD [address] [place], [place] [phone] Social History Tobacco Use Types Packs/Day Years [...] on filedocumented in this encounter Care Teams Frame Feeder Relationship Specialty Start Date End Date Myah Singh MD [address] [place], [place] [phone] PCP - General Family Medicine 11/08/12 [facility] 12/31/24 07/29/25 documented as of this encounter
--- OUTSIDE RECORDS SUMMARY | 2025-08-19 17:33 | XMS_ITS | Clinical Summary ---
Author Organization [address] [facility] Address [address] [place] [address] Phone Care Team Providers Care Back Tender Insulation Board Name Role Phone Tony Arreola MD Primary Care Provider [phone] Social History Tobacco Use Types Packs/Day Years [...] LAB CHEMISTRY METHOD 02/24/2025 9:29 PM EDT [facility] Mean Bld Glu Estim. 123 mg/dL LAB CHEMISTRY METHOD 02/24/2025 9:29 PM EDT [facility] Blood Venous blood specimen / Unknown Venipuncture / Unknown 02/24/2025 6:34 AM EDT 02/24/2025 10:44 AM EDT Venus Mayberry MD LAB BLOOD ORDERABLES Final Resul t [facility] [address] [place] [address], * (ABNORMAL) Comprehensive metabolic panel (02/24/2025 6:34 AM EDT) Sodium 142 133 - 145 mmol/L LAB CHEMISTRY METHOD 02/24/2025 12:24 PM EDT [facility] Potassium 4.1 3.5 - 5.5 [...] mg/dL LAB CHEMISTRY METHOD [facility] e[facility] 53(L) >=60 mL/min/1. 73m2 LAB CHEMISTRY METHOD 02/24/2025 12:24 PM [facility] Comment:Calculation based on the Chronic Kidney Disease Epidemiology Collaboration (CKD-EPI) equation refit without adjustment for race. BUN/Creatinine Ratio 29.4 LAB CHEMISTRY METHOD 02/24/2025 12:24 PM [facility] Calcium 10.5 8.5 - 10.5 mg/dL LAB CHEMISTRY METHOD 02/24/2025 12:24 PM [facility] AST (SGOT) 31 10 - 42 unit/L LAB CHEMISTRY METHOD 02/24/2025 12:24 PM EDT [facility] ALT (SGPT) 36 10 - 60 unit/L LAB CHEMISTRY METHOD 02/24/2025 12:24 PM EDT [facility] Alkaline Phosphatase 82 42 - 121 unit/L LAB CHEMISTRY METHOD 02/24/2025 12:24 PM EDT [facility] Total Protein 6.8 6.0 - 8.0 g/dL LAB CHEMISTRY METHOD 02/24/2025 12:24 PM EDT [facility] Albumin 3.1(L) 3.2 - 5.0 g/dL LAB CHEMISTRY METHOD 02/24/2025 12:24 PM EDT [facility] Total Bilirubin 0.4 0.0 - 1.4 mg/dL LAB CHEMISTRY METHOD 02/24/2025 12:24 PM EDT [facility] Blood Venous blood specimen / Unknown Venipuncture / Unknown 02/24/2025 6:34 AM EDT 02/24/2025 10:44 AM EDT Venus Mayberry MD LAB BLOOD ORDERABLES Final Resul t [facility] [address] [place] [address], from Last 3 Months or Most Recently Relevant to Health Maintenance Insurance [facility] MEDIC[facility] Member Subscriber Plan / Payer (Ef fective 2019-Present) Name:Sienna Mendez Relation to Subscriber:Self Name:Sienna Mendez Payer ID:[id number] Group ID:[id number] Type:Not on file Address: [address] [place] [id number] Care Teams Back Tender Insulation Board Relationship Specialty Start Date End Date Tony Arreola MD [address] [place] [address] [address] [place], [phone] PCP - General Family Medicine 12/14/24
--- OUTSIDE RECORDS SUMMARY | 2025-08-19 17:33 | XMS_ITS | Encounter Summary ---
Author Organization [employer] Address [address] [place] [address] Care Team Providers Care Blood And Plasma Laboratory Assistant Name Role Phone Tony Arreola MD Primary Care Provider [phone] Encounter Details Date Type Department Care Team (Late st Contact Info) Description 12/21/2024 Lab Requisition [facility] - Main Lab [address] [place] [address] Tony Arreola MD 38 [facility] [address] [place], [phone] Weakness; Unspecified dementia, unspecified severity, without [...] mmol/L LAB CHEMISTRY METHOD 12/23/2024 12:[address] [facility] Potassium 4.2 3.5 - 5.5 mmol/L LAB CHEMISTRY METHOD 12/23/2024 12:[address] [facility] Chloride 111(H) 96 - 110 mmol/L LAB CHEMISTRY METHOD 12/23/2024 12:[address] [facility] CO2 28 21 - 32 mmol/L LAB CHEMISTRY METHOD 12/23/2024 12:[address] [facility] Anion Gap 5 3 - 11 LAB CHEMISTRY METHOD 12/23/2024 12:[address] [facility] Glucose 84 70 - 100 mg/dL LAB CHEMISTRY METHOD 12/23/2024 12:[address] [facility] BUN 22 5 - 25 mg/dL LAB CHEMISTRY METHOD 12/23/2024 12:[address] [facility] Creatinine 1.25(H) 0.50 - 1.10 mg/dL LAB CHEMISTRY METHOD 12/23/2024 12:[address] [facility] eGFR 42(L) >=60 mL/min/1. 73m2 LAB CHEMISTRY METHOD 12/23/2024 12:[address] [facility] Comment:Calculation based on the Chronic Kidney Disease Epidemiology Collaboration (CKD-EPI) equation refit without adjustment for race. BUN/Creatinine Ratio 17.6 LAB CHEMISTRY METHOD 12/23/2024 12:[address] [facility] Calcium 9.3 8.5 - 10.5 mg/dL LAB CHEMISTRY METHOD 12/23/2024 12:[address] [facility] Blood Venous blood specimen / Unknown Venipuncture / Unknown 12/23/2024 6:50 AM EST 12/23/2024 10:55 AM EST us Tony Arreola MD LAB BLOOD ORDERABLES Final Resul t [facility] [address] [place] [address], * (ABNORMAL) Complete blood count (12/23/2024 6:50 AM EST) [facility] WBC 6.0 4.8 - 10.8 K/mcL LAB HEMETOLOGY METHOD 12/23/2024 12:[address] [facility] RBC 4.70 3.80 - 4.80 M/mcL LAB HEMETOLOGY METHOD 12/23/2024 12:[address] [facility] Hemoglobin 13.4 11.5 - 16.0 g/dL LAB HEMETOLOGY METHOD 12/23/2024 12:[address] [facility] Hematocrit 43.6 35.0 - 47.0 % LAB HEMETOLOGY METHOD 12/23/2024 12:[address] [facility] MCV 93.6 79.0 - 98.0 FL LAB HEMETOLOGY METHOD 12/23/2024 12:[address] [facility] MCH 28.8 27.0 - 32.0 pcg LAB HEMETOLOGY METHOD 12/23/2024 12:[address] [facility] MCHC 30.7(L) 32.0 - 37.0 g/dL LAB HEMETOLOGY METHOD 12/23/2024 12:[address] [facility] RDW 14.8 11.0 - 15.0 % LAB HEMETOLOGY METHOD 12/23/2024 12:[address] [facility] Platelets 142 130 - 400 K/mcL LAB HEMETOLOGY METHOD 12/23/2024 12:[address] [facility] MPV 12.0(H) 7.0 - 11.0 FL LAB HEMETOLOGY METHOD 12/23/2024 12:[address] [facility] NRBC 0.0 <1.0 % LAB HEMETOLOGY METHOD 12/23/2024 12:[address] [facility] NRBC Absolute 0.00 <0.10 K/mcL LAB HEMETOLOGY METHOD 12/23/2024 12:49 PM EST [facility] Blood Venous blood specimen / Unknown Venipuncture / Unknown 12/23/2024 6:50 AM EST 12/23/2024 10:55 AM EST Tony Arreola MD LAB BLOOD ORDERABLES Final Resul t [facility] [address] [place] [address], documented in this encounter Visit Diagnoses Diagnosis Weakness Other malaise and fatigue Unspecified dementia, unspecified severity, without behavioral disturbance, psychotic disturbance, mood disturbance, and anxiety (CMS/HCC V24, CMS/HCC V28) documented in this encounter Care Teams Blood And Plasma Laboratory Assistant Relationship Specialty Start Date End Date Tony Arreola MD [address] [place] [address], [phone] PCP - General Family Medicine 12/14/24 documented as of this encounter
--- OUTSIDE RECORDS SUMMARY | 2025-08-19 17:33 | XMS_ITS | Clinical Summary ---
Author Organization [employer] Address [address] [facility] 7[address] [place] [address] Care Team Providers Care Certified Personal Chef Name Role Phone Myah Singh MD Primary Care Provider [phone] Allergies Active Allergy Reactions Criticality Noted Date [...] complication, without long-term current use of insulin ([facility]) INJECT 1 BY INTO MACHINE ROUTE EVERY [...] unspecified whether stage 3a or 3b CKD ([facility]) TEST BLOOD SUGAR DAILY AND NEEDED 100 each 10 08/05/20 25 Active cetirizine (ZyrTEC) 5 MG tablet TAKE 1 TABLET (5 MG) BY MOUTH IN THE MORNING. 30 tablet 1 08/11/20 25 Active glucose blood (FREESTYLE LITE) test stripIndication s:Type 2 diabetes mellitus with stage 3 chronic kidney disease, without long-term current use of insulin, unspecified whether stage 3a or 3b CKD ([facility]) TEST BLOOD SUGAR DAILY AND NEEDED 100 [...] PM EDT): -Oct 2015 -Previously following with [facility] Cardiology, upcoming appt -Continue risk factor mangement Assessment & Plan (01/07/2023 4:34 PM EST): -Oct 2015 -Previously following with [facility] Cardiology, upcoming appt -Continue risk factor mangement [...] cm2. Mild aortic valve regurgitation. -Seen by terrazzo tile maker, Dr. Garcia in [facility], on 07/27/23, since she is not a [...] cm2. Mild aortic valve regurgitation. -Seen by terrazzo tile maker, Dr. Garcia in [facility], on 07/27/23, since she is not a [...] cm2. Mild aortic valve regurgitation. -Seen by terrazzo tile maker, Dr. Garcia in [facility], on 07/27/23, since she is not a [...] -Pt has an upcoming appt with her terrazzo tile maker Assessment & Plan (01/07/2023 5:17 PM EST): - Most recent TTE 10/14/22: There is mild calcification of the aortic valve. There is moderate aortic valve stenosis. The peak aortic gradient is 33 mmHg.The mean gradient is 16 mmHg. There is mild aortic valve regurgitation. -Pt has loud murmur consistent with aortic stenosis -NSTEMI in 2014 -Pt has an upcoming appt with her terrazzo tile maker Anemia 01/07/2023 Assessment & Plan (01/07/2023 5:24 PM EST): - anemia of chronic disease (CKD, cirrhosis) - continue ferrous sulfate - check lab Diabetes mellitus, type 2 12/28/2022 Overview (04/07/2025): Frequent utis from jardiance Assessment & Plan (05/06/2025 11:29 AM EDT): Blood sugars are in range (90-110)without jardance, pt grandaughter and PROPOSAL CONSULTANT deny any swelling, sob, orthopnea edema or [...] Plan (01/17/2025 5:56 AM EST): -Following with [facility] Sleep medicine clinic, last seen in January [...] was seeing psychiatrist while staying in the skilled nursing -work on risk factor management -reviewed safety [...] Risk: CKD, age, NSTEMI, Hx CVA/TIA, DM2 -Process Chemist: [facility] on 01/23/23 (Grade [...] Risk: CKD, age, NSTEMI, Hx CVA/TIA, DM2 -Process Chemist: [facility] on 01/23/23 (Grade [...] Risk: CKD, age, NSTEMI, Hx CVA/TIA, DM2 -Process Chemist: Previously [facility] pt has a new appt on 01/23/23 [...] Risk: CKD, age, NSTEMI, Hx CVA/TIA, DM2 -Process Chemist: Previously [facility], pt has a new appt on 01/23/23 [...] Risk: CKD, age, NSTEMI, Hx CVA/TIA, DM2 -Process Chemist: Previously [facility] pt has a new appt on 01/23/23 [...] use - Followed by [facility], last seen in Jun 2024 - Treatment Hx: Tried oxybutynin, which was discontinued due to anticholinergic effect. Gemtesa was prohibitory expensive - Continue mirabegron as prescribed, advised to have drug holiday from mirabegron, resume when pt's symptoms worsen Assessment & Plan (02/04/2024 1:12 PM EDT): - in a setting of dementia, DM2, and SGLT-2 inhibitor use - Followed by [facility], last seen in November 2023 - Treatment Hx: Tried oxybutynin, which was discontinued due to anticholinergic effect. Gemtesa was not approved - Continue mirabegron as prescribed, advised to have drug holiday from mirabegron, resume when pt's symptoms worsen Assessment & Plan (09/10/2023 4:55 PM EDT): - in a setting of dementia, DM2, and SGLT-2 inhibitor use - Followed by [facility], last seen on 05/31/23. - Continue mirabegron as prescribed, advised to have drug holiday from mirabegron, resume when pt's symptoms worsen Assessment & Plan (05/08/2023 11:04 AM EDT): - in a setting of dementia, DM2, and SGLT-2 inhibitor use - Followed by Dr. Vallecillo, [facility] - Continue mirabegron as prescribed Assessment & Plan (01/07/2023 4:51 PM EST): - in a setting of dementia, DM2, and SGLT-2 inhibitor use - Followed by Dr. Vallecillo, [facility] - Continue mirabegron as prescribed Recurrent [...] Assessment & Plan (01/17/2025 6:08 AM EST): -Swaging Machine Operator: Dr. Martinez -Avoid nephrotoxic drugs and use renal dosing. -Recheck renal function today -On Jardiance, at low-dose, 10mg daily. Caution with UTI Assessment & Plan (02/04/2024 1:13 PM EDT): -Swaging Machine Operator: Dr. Martinez -Baseline: 09/26/22 BUN 29; SCr 1.2, eGFR 43, AST 12, ALT 19, AP 91 -Avoid nephrotoxic drugs and use renal dosing. -Recheck renal function today -On Jardiance, at low-dose, 10mg daily. Assessment & Plan (09/10/2023 4:32 PM EDT): -Swaging Machine Operator: Dr. Martinez, last seen in 2017 or 2018. Per caregiver, pt was discharged due to stability -Baseline: 09/26/22 BUN 29; SCr 1.2, eGFR 43, AST 12, ALT 19, AP 91 -Avoid nephrotoxic drugs and use renal dosing. -Recheck renal function today -On Jardiance, at low-dose, 10mg daily. Assessment & Plan (05/08/2023 11:04 AM EDT): -Swaging Machine Operator: Dr. Martinez, last seen in 2017 or 2018. Per caregiver, pt was discharged due to stability -Baseline: 09/26/22 BUN 29; SCr 1.2, eGFR 43, AST 12, ALT 19, AP 91 -Avoid nephrotoxic drugs and use renal dosing. -Recheck renal function today -On Jardiance, at low-dose, 10mg daily. Assessment & Plan (01/07/2023 4:54 PM EST): -Swaging Machine Operator: Dr. Martinez, last seen in 2017 [...] Type Department Care Team Description 08/09/2025 Refill [facility] [address] [place] [address] Myah Singh MD 08/07/2025 Orders Only GENERIC EXTERNAL DATA DEPARTMENT Provider, Generic External Data 08/04/2025 Refill [facility] [address] [place] [address] Myah Singh MD Type 2 diabetes mellitus with stage 3 chronic kidney disease, without long-term current use of insulin, unspecified whether stage 3a or 3b CKD ([facility]) 07/21/2025 Refill [facility] [address] [place] [address] Liliana Sears MD 07/21/2025 Refill [facility] [address] [place] [address] Myah Singh MD Allergic rhinitis, unspecified seasonality, unspecified trigger 07/10/2025 Telephone [facility] [address] [place] [address] Myah Singh MD Durable Medical Equipment (DME: Multiple Items) 05/28/2025 Refill [facility] [address] [place] [address] Myah Singh MD Primary hypertension from Last [...] unspecified whether stage 3a or 3b CKD ([facility]) Dyslipidemia POCT GLYCOSYLATED HEMOGLOBIN (HGB A1C) Routine 09/11/2023 10:29 AM EDT Type 2 diabetes mellitus with stage 3 chronic kidney disease, without long-term current use of insulin, unspecified whether stage 3a or 3b CKD ([facility]) from Last 3 Months or Most Recently Relevant to Health Maintenance Results * Glucose, Whole Blood (08/07/2025 12:20 PM EDT) Glucose, Whole Blood 90 60 - 115 mg/dL [facility] Comment:METER #: [id number] 08/07/2025 12:2 0 PM EDT 08/07/2025 4:35 PM EDT us Generic External Data Provider LAB BLOOD ORDERAB LES Final Result [facility] [address] [place] [phone] * SARS-CoV-2 RNA, Influenza A/B, and RSV RNA, Ql NAAT (08/07/2025 8:48 AM EDT) Influenza A PCR NEGATIVE Negative [facility] Influenza B PCR NEGATIVE Negative [facility] Resp Syncy Virus RNA Qual PCR NEGATIVE Negative [facility] SARS COV2 PCR NEGATIVE Negative [facility] Comment:All test results mus t [...] use by authorized laboratories.Testing performed on the [employer] GeneXpert utilizingreal-time RT-PCR.All SARS CoV2 and positive influenza A/B results arereported to [facility]. 08/07/2025 8:48 AM EDT 08/07/2025 8:51 AM EDT us Generic External Data Provider LAB MICROBIOLOGY - GENERAL ORDERABLES Final Result Performing Organization Address [facility] Co de Phone Number [facility] [address] [place] [phone] * Lipid Panel with Reflex to Direct LDL (01/22/2024 12:20 PM EST) Triglycerides 130 <150 mg/dL [facility] Comment:Desirable Triglyceri de: less than 150 mg/dLBorderline High Triglyceride 150-199 mg/dLHigh Triglyceride: 200-499 mg/dLVery High Triglyceride: greater than or equal to 5OO mg/dL Cholesterol 109 <200 mg/dL [facility] Comment:Desirable Cholestero l: less than 200 mg/dLBorderline High Cholesterol: 200-239 mg/dLHigh Cholesterol: greater than 239 mg/dL LDL Cholesterol Calculated 41 <100 mg/dL [facility] Comment:Desirable LDL: less than 100 mg/dLNear Optimal/Above Optimal LDL: 110- 129 mg/dLBorderline High LDL: 130-159 mg/dLHigh LDL: 160-189 mg/dLVery High LDL: greater than or equal to 190 mg/dL HDL Cholesterol 42 >40 mg/dL [facility] Comment:Desirable HDL: great er than 40 mg/dL Note: This HDL assay may give artificially low results in patients with liver disease. Blood 01/22/2024 12:2 0 PM EST 01/22/2024 1:11 PM EST Myah Singh MD LAB BLOOD ORDERABLES Final Resul t Performing Organization Address City/[facility]/ZIP Co de Phone Number [facility] [address] [place] [phone] * (ABNORMAL) POCT glycosylated hemoglobin (Hgb A1c) (09/11/2023 10:29 AM EDT) Hemoglobin A1C 6.2(A) 4.0 - 6.0 % QC Media Lot # [id number] Lot# Expiration Date Blood Capillary blood specimen / Unknown 09/11/2023 10:29 AM EDT Myah Singh MD POINT OF CARE TEST ENTER/EDIT OR DERABLES Final Result from Last 3 Months or Most Recently Relevant to Health Maintenance Insurance [facility] [employer] LONG TERM OPTIONS (O D-SNP) Care Teams Certified Personal Chef Relationship Specialty Start Date End Date Myah Singh MD [address] [place] [address] PCP - General Family Medicine 11/08/12
--- OUTSIDE RECORDS SUMMARY | 2025-08-19 17:33 | XMS_ITS | Encounter Summary ---
Author Organization [facility] Address [address] [place] [address] Care Team Providers Care Sumo Wrestler Name Role Phone Tony Arreola MD Primary Care Provider [phone] Encounter Details Date Type Department Care Team (Late st Contact Info) Description 12/06/2024 Lab Requisition [facility] - Main Lab [address] [place] [address] Tony Arreola MD [address] [facility] [address] [place], [phone] Weakness; Unspecified dementia, unspecified severity, without [...] mmol/L LAB CHEMISTRY METHOD 12/09/2024 3:01 PM [facility] Potassium 4.3 3.5 - 5.5 mmol/L LAB CHEMISTRY METHOD 12/09/2024 3:01 PM [facility] Chloride 110 96 - 110 mmol/L LAB CHEMISTRY METHOD 12/09/2024 3:01 PM [facility] CO2 28 21 - 32 mmol/L LAB CHEMISTRY METHOD 12/09/2024 3:01 PM [facility] Anion Gap 7 3 - 11 LAB CHEMISTRY METHOD 12/09/2024 3:01 PM [facility] Glucose 74 70 - 100 mg/dL LAB CHEMISTRY METHOD 12/09/2024 3:01 PM [facility] BUN 20 5 - 25 mg/dL LAB CHEMISTRY METHOD 12/09/2024 3:01 PM [facility] Creatinine 1.21(H) 0.50 - 1.10 mg/dL LAB CHEMISTRY METHOD 12/09/2024 3:01 PM [facility] eGFR 43(L) >=60 mL/min/1. 73m2 LAB CHEMISTRY METHOD 12/09/2024 3:01 PM [facility] Comment:Calculation based on the Chronic Kidney Disease Epidemiology Collaboration (CKD-EPI) equation refit without adjustment for race. BUN/Creatinine Ratio 16.5 LAB CHEMISTRY METHOD 12/09/2024 3:01 PM [facility] Calcium 9.4 8.5 - 10.5 mg/dL LAB CHEMISTRY METHOD 12/09/2024 3:01 PM [facility] Blood Venous blood specimen / Unknown Venipuncture / Unknown 12/09/2024 7:13 AM EST 12/09/2024 11:17 AM EST us Tony Arreola MD LAB BLOOD ORDERABLES Final Resul t [facility] [address] [place] [address], [place] [phone] * (ABNORMAL) Complete blood count (12/09/2024 7:13 AM EST) [facility] Signature WBC 6.9 4.8 - 10.8 K/mcL LAB HEMETOLOGY METHOD 12/09/2024 12:37 PM [facility] RBC 4.60 3.80 - 4.80 M/mcL LAB HEMETOLOGY METHOD 12/09/2024 12:37 PM [facility] Hemoglobin 13.3 11.5 - 16.0 g/dL LAB HEMETOLOGY METHOD 12/09/2024 12:37 PM [facility] Hematocrit 43.5 35.0 - 47.0 % LAB HEMETOLOGY METHOD 12/09/2024 12:37 PM [facility] MCV 94.8 79.0 - 98.0 FL LAB HEMETOLOGY METHOD 12/09/2024 12:37 PM [facility] MCH 29.0 27.0 - 32.0 pcg LAB HEMETOLOGY METHOD 12/09/2024 12:37 PM [facility] MCHC 30.6(L) 32.0 - 37.0 g/dL LAB HEMETOLOGY METHOD 12/09/2024 12:37 PM [facility] RDW 14.6 11.0 - 15.0 % LAB HEMETOLOGY METHOD 12/09/2024 12:37 PM [facility] Platelets 160 130 - 400 K/mcL LAB HEMETOLOGY METHOD 12/09/2024 12:37 PM [facility] MPV 12.2(H) 7.0 - 11.0 FL LAB HEMETOLOGY METHOD 12/09/2024 12:37 PM [facility] NRBC 0.0 <1.0 % LAB HEMETOLOGY METHOD 12/09/2024 12:37 PM [facility] NRBC Absolute 0.00 <0.10 K/mcL LAB HEMETOLOGY METHOD 12/09/2024 12:37 PM EST [facility] Blood Venous blood specimen / Unknown Venipuncture / Unknown 12/09/2024 7:13 AM EST 12/09/2024 11:17 AM EST us Tony Arreola MD LAB BLOOD ORDERABLES Final Resul t [facility] [address] [place] [address], documented in this encounter Visit Diagnoses Diagnosis Weakness Other malaise and fatigue Unspecified dementia, unspecified severity, without behavioral disturbance, psychotic disturbance, mood disturbance, and anxiety (CMS/HCC V24, CMS/HCC V28) documented in this encounter Care Teams Sumo Wrestler Relationship Specialty Start Date End Date Tony Arreola MD [address] [place] [address], [phone] PCP - General Family Medicine 12/14/24 documented as of this encounter
--- OUTSIDE RECORDS SUMMARY | 2025-08-19 17:33 | XMS_ITS | Encounter Summary ---
Author Organization [employer] Address [address] [facility] [address] [place] [address] Care Team Providers Care Carriage Rider Name Role Phone Myah Singh MD Primary Care Provider [phone] Reason for Visit * Reason Comments Med Refill Encounter Details Date Type Department Care Team (Late st Contact Info) Description 11/29/2023 Refill [facility] [address] [place], [place] [phone] Myah Singh MD [address] [place], [place] [phone] Vitamin D deficiency Social History Tobacco Use [...] documented as of this encounter Care Teams Carriage Rider Relationship Specialty Start Date End Date Myah Singh MD [address] [place] [phone] PCP - General Family Medicine 11/08/12 [facility] 12/31/24 07/29/25 documented as of this encounter
--- OUTSIDE RECORDS SUMMARY | 2025-08-19 17:34 | XMS_ITS | Encounter Summary ---
Author Organization [employer] Address [address] [facility] [address] [place] [address] Care Team Providers Care Rework Machine Operator Name Role Phone Myah Singh MD Primary Care Provider [phone] Reason for Visit * Reason Comments Med Refill Encounter Details Date Type Department Care Team (Late st Contact Info) Description 10/22/2024 Refill [facility] MEDICINE [address] [place], [place] [phone] Myah Singh MD [address] [place], [place] [phone] Allergic rhinitis, unspecified seasonality, unspecified trigger Social [...] documented as of this encounter Care Teams Rework Machine Operator Relationship Specialty Start Date End Date Myah Singh MD [address] [place] [address] PCP - General Family Medicine 11/08/12 [facility] 12/31/24 07/29/25 documented as of this encounter
--- OUTSIDE RECORDS SUMMARY | 2025-08-19 17:34 | XMS_ITS | Encounter Summary ---
Author Organization [employer] Address [address] [facility] [address] [place] [address] Care Team Providers Care Table Tender Sludge Name Role Phone Myah Singh MD Primary Care Provider [phone] Reason for Visit * Reason Comments Med Refill Encounter Details Date Type Department Care Team (Late st Contact Info) Description 05/22/2024 Refill [facility] PEDS [address] [place], [place] [phone] Myah Singh MD [address] [place], [place] [phone] Social History Tobacco Use Types Packs/Day Years [...] documented as of this encounter Care Teams Table Tender Sludge Relationship Specialty Start Date End Date Myah Singh MD [address] [place] [address] PCP - General Family Medicine 11/08/12 [facility] 12/31/24 07/29/25 documented as of this encounter
--- OUTSIDE RECORDS SUMMARY | 2025-08-19 17:34 | XMS_ITS | Encounter Summary ---
Author Organization [employer] Address [address] [facility] 7[address] [place] [address] Care Team Providers Care Cant Gang Sawyer Name Role Phone Myah Singh MD Primary Care Provider Encounter Details Date Type Department Care Team ([facility] st Contact Info) Description 03/26/2025 Telephone [facility] MEDICINE [address] [place], [place] [phone] Myah Singh MD [address] [place], [place] [phone] Social History Tobacco Use Types Packs/Day Years [...] documented as of this encounter Care Teams Cant Gang Sawyer Relationship Specialty Start Date End Date Myah Singh MD [address] [place] [phone] PCP - General Family Medicine 11/08/12 [facility] 12/31/24 07/29/25 documented as of this encounter
--- OUTSIDE RECORDS SUMMARY | 2025-08-19 17:34 | XMS_ITS | Encounter Summary ---
Author Organization [employer] Address [address] [place] [address] Care Team Providers Care Tubing Machine Tender Name Role Phone Tony Arreola MD Primary Care Provider [phone] Encounter Details Date Type Department Care Team (Late st Contact Info) Description 02/24/2025 Lab Requisition [facility] - Main Lab [address] [facility] [place] [address] Venus Mayberry MD [address] [place], [place] [id number] Essential (primary) hypertension; Type 2 diabetes mellitus [...] * Vitamin B12 (02/24/2025 6:34 AM EDT) [facility] Vitamin B-12 324 250 - 900 pcg/mL LAB CHEMISTRY METHOD 02/24/2025 12:24 PM EDT [facility] Blood Venous blood specimen / Unknown Venipuncture / Unknown 02/24/2025 6:34 AM EDT 02/24/2025 10:44 AM EDT us Venus Mayberry MD LAB BLOOD ORDERABLES Final Resul t Performing Organization Address City/[facility]/ZIP Co de Phone Number [facility] [address] [place] [address], [place] [phone] * Folate (02/24/2025 6:34 AM EDT) [facility] Folate 11.3 2.8 - 17.0 ng/ml LAB CHEMISTRY METHOD 02/24/2025 12:24 PM EDT [facility] Blood Venous blood specimen / Unknown Venipuncture / Unknown 02/24/2025 6:34 AM EDT 02/24/2025 10:44 AM EDT us Venus Mayberry MD LAB BLOOD ORDERABLES Final Resul t Performing Organization Address City/[facility]/ZIP Co de Phone Number [facility] [address] [place] [address], [place] [phone] * (ABNORMAL) Vitamin D 25 hydroxy (02/24/2025 6:34 AM EDT) Pathologist [facility] Vit D, 25-Hydroxy 29.9(L) 30.0 - 80.0 ng/mL LAB CHEMISTRY METHOD 02/24/2025 1:12 PM EDT [facility] Blood Venous blood specimen / Unknown Venipuncture / Unknown 02/24/2025 6:34 AM EDT 02/24/2025 10:44 AM EDT us Venus Mayberry MD LAB BLOOD ORDERABLES Final Resul t Performing Organization Address [facility] Co de Phone Number [facility] [address] [place] [address], * Thyroid stimulating hormone (02/24/2025 6:34 AM EDT) [facility] TSH 1.44 0.40 - 4.00 mcIU/mL LAB CHEMISTRY METHOD 02/24/2025 1:13 PM EDT [facility] Blood Venous blood specimen / Unknown Venipuncture / Unknown 02/24/2025 6:34 AM EDT 02/24/2025 10:44 AM EDT us Venus Mayberry MD LAB BLOOD ORDERABLES Final Resul t Performing Organization Address [facility] de Phone Number [facility] [address] [place] [address], [place] [phone] * Hemoglobin A1c (02/24/2025 6:34 AM EDT) [facility] Hemoglobin A1C 5.9 <6.5 % [...] t [facility] [address] [place] [address], [place] [phone] * (ABNORMAL) Comprehensive metabolic panel (02/24/2025 6:34 [...] [facility] Comment:Calculation based on the Chronic Kidney Disease Epidemiology Collaboration (CKD-EPI) equation refit without adjustment for race. BUN/Creatinine Ratio 29.4 LAB CHEMISTRY METHOD 02/24/2025 12:24 PM [facility] Calcium 10.5 8.5 - 10.5 mg/dL LAB CHEMISTRY METHOD 02/24/2025 12:24 PM EDT [facility] AST (SGOT) 31 10 - [...] g/dL LAB CHEMISTRY METHOD 02/24/2025 12:[facility] Albumin 3.1(L) 3.2 - 5.0 [...] t [facility] [address] [place] [address], * (ABNORMAL) Complete blood count (02/24/2025 6:34 AM EDT) WBC 6.0 4.8 - 10.8 K/mcL LAB HEMETOLOGY METHOD 02/24/2025 1:12 PM EDT [facility] RBC 4.80 3.80 - 4.80 M/mcL LAB HEMETOLOGY METHOD 02/24/2025 1:12 PM [facility] Hemoglobin 14.3 11.5 - 16.0 g/dL LAB HEMETOLOGY METHOD 02/24/2025 1:12 PM [facility] Hematocrit 45.6 35.0 - 47.0 % LAB HEMETOLOGY METHOD 02/24/2025 1:12 PM [facility] MCV 94.2 79.0 - 98.0 FL LAB HEMETOLOGY METHOD 02/24/2025 1:12 PM [facility] MCH 29.5 27.0 - 32.0 pcg LAB HEMETOLOGY METHOD 02/24/2025 1:12 PM [facility] MCHC 31.4(L) 32.0 - 37.0 g/dL LAB HEMETOLOGY METHOD 02/24/2025 1:12 PM [facility] RDW 14.7 11.0 - 15.0 % LAB HEMETOLOGY METHOD 02/24/2025 1:12 PM [facility] Platelets 154 130 - 400 K/mcL LAB HEMETOLOGY METHOD 02/24/2025 1:12 PM [facility] MPV 11.7(H) 7.0 - 11.0 FL LAB HEMETOLOGY METHOD 02/24/2025 1:12 PM [facility] NRBC 0.0 <1.0 % LAB HEMETOLOGY METHOD 02/24/2025 1:12 PM [facility] NRBC Absolute 0.00 <0.10 K/mcL LAB HEMETOLOGY METHOD 02/24/2025 1:12 PM [facility] Blood Venous blood specimen / Unknown Venipuncture / Unknown 02/24/2025 6:34 AM EDT 02/24/2025 10:44 AM EDT Venus Mayberry MD LAB BLOOD ORDERABLES Final Resul t [facility] [address] [place] [address], documented in this encounter Visit Diagnoses Diagnosis Essential (primary) hypertension Unspecified essential hypertension Type 2 diabetes mellitus without complications (CMS/HCC V24, CMS/HCC V28) documented in this encounter Care Teams Tubing Machine Tender Relationship Specialty Start Date End Date Tony Arreola MD [address] [place] [address], [phone] PCP - General Family Medicine 12/14/24 documented as of this encounter
== END ==
LOC: HO.HSM 14:19
PROVIDERS: PCP Family Medicine Geriatric Medicine; Visit Provider Psychiatry & Neurology Neurology
DX: G30.9 Alzheimer's disease, unspecified (principal); F02.80 Dementia in other diseases classified elsewhere, unspecified severity, without behavioral disturbance, psychotic disturbance, mood disturbance, and anxiety; I67.89 Other cerebrovascular disease; G47.33 Obstructive sleep apnea (adult) (pediatric)
CPT/HCPCS: 99204

== ENCOUNTER 2025-08-30 13:28 | Outpatient (REF) | payer OTHER, SELFPAY ==
--- OUTSIDE RECORDS SUMMARY | 2025-08-30 13:31 | XMS_ITS | Clinical Summary ---
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 History of cerebrovascular accident 01/07/2023 Overview (01/23/2023): Last Assessment & Plan: -around 2009 previous medical record -TIA in 2015 -Continue working on secondary prevention / risk factor management History of non-ST segment elevation myocardial i nfarction 01/07/2023 Overview (01/23/2023): Last Assessment & Plan: -Oct 2015 -Previously following with [facility] Cardiology, upcoming appt -Continue risk factor mangement [...] Risk: CKD, age, NSTEMI, Hx CVA/TIA, DM2 -Guest Service Team Leader: Previously [facility], pt has a new appt on 01/23/23 [...] to 50 Years) Discontinued 02/23/2015, 10/04/2001 Insurance [facility] ([id number]) [place] [id number] [facility] ([id number])
--- OUTSIDE RECORDS SUMMARY | 2025-08-30 13:32 | XMS_ITS | Clinical Summary ---
Author Organization [address] [facility] Address [address] [place] [address] Phone Care Team Providers Care Flooring Helper Name Role Phone Tony Arreola MD Primary Care Provider [phone] Social History Tobacco Use Types Packs/Day Years [...] LAB CHEMISTRY METHOD 02/24/2025 9:[address] [facility] Mean Bld Glu Estim. 123 mg/dL LAB CHEMISTRY METHOD 02/24/2025 9:[address] [facility] Blood Venous blood specimen / Unknown Venipuncture / Unknown 02/24/2025 6:34 AM EDT 02/24/2025 10:44 AM EDT Venus Mayberry MD LAB BLOOD ORDERABLES Final Resul t [facility] [address] [place] [address], * (ABNORMAL) Comprehensive metabolic panel (02/24/2025 6:34 AM EDT) Sodium 142 133 - 145 mmol/L LAB CHEMISTRY METHOD 02/24/2025 12:[address] [facility] Potassium 4.1 3.5 - 5.5 mmol/L LAB CHEMISTRY METHOD 02/24/2025 12:24 PM [facility] Chloride 108 96 - 110 mmol/L LAB CHEMISTRY METHOD 02/24/2025 12:24 PM [facility] CO2 28 21 - 32 mmol/L LAB CHEMISTRY METHOD 02/24/2025 12:24 PM [facility] Anion Gap 6 3 - 11 LAB CHEMISTRY METHOD 02/24/2025 12:24 PM [facility] Glucose 91 70 - 100 mg/dL LAB CHEMISTRY METHOD 02/24/2025 12:24 PM [facility] BUN 30(H) 5 - 25 mg/dL LAB CHEMISTRY METHOD 02/24/2025 12:24 PM [facility] Creatinine 1.02 0.50 - 1.10 mg/dL LAB CHEMISTRY METHOD 02/24/2025 12:[facility] eGFR 53(L) >=60 mL/min/1. 73m2 LAB CHEMISTRY METHOD 02/24/2025 12:24 PM [facility] Comment:Calculation based on the Chronic Kidney Disease Epidemiology Collaboration (CKD-EPI) equation refit without adjustment for race. BUN/Creatinine Ratio 29.4 LAB CHEMISTRY METHOD 02/24/2025 12:24 PM [facility] Calcium 10.5 8.5 - 10.5 mg/dL LAB CHEMISTRY METHOD 02/24/2025 12:24 PM [facility] AST (SGOT) 31 10 - 42 unit/L LAB CHEMISTRY METHOD 02/24/2025 12:[address] [facility] ALT (SGPT) 36 10 - 60 unit/L LAB CHEMISTRY METHOD 02/24/2025 12:[address] [facility] Alkaline Phosphatase 82 42 - 121 unit/L LAB CHEMISTRY METHOD 02/24/2025 12:[address] [facility] Total Protein 6.8 6.0 - 8.0 g/dL LAB CHEMISTRY METHOD 02/24/2025 12:[address] [facility] Albumin 3.1(L) 3.2 - 5.0 g/dL LAB CHEMISTRY METHOD 02/24/2025 12:[address] [facility] Total Bilirubin 0.4 0.0 - 1.4 mg/dL LAB CHEMISTRY METHOD 02/24/2025 12:[address] [facility] Blood Venous blood specimen / Unknown Venipuncture / Unknown 02/24/2025 6:34 AM EDT 02/24/2025 10:44 AM EDT Venus Mayberry MD LAB BLOOD ORDERABLES Final Resul t [facility] [address] [place] [address], from Last 3 Months or Most Recently Relevant to Health Maintenance Insurance [facility] MEDICARE Member Subscriber Plan / Payer (Ef fective 2019-Present) Name:Sienna Mendez Relation to Subscriber:Self Name:Sienna Mendez Payer ID:[id number] Group ID:[id number] Type:Not on file Address: [address] [place] [id number] Care Teams Flooring Helper Relationship Specialty Start Date End Date Tony Arreola MD [address] [place] [address] [address] [place], [phone] PCP - General Family Medicine 12/14/24
--- OUTSIDE RECORDS SUMMARY | 2025-08-30 13:32 | XMS_ITS | Encounter Summary ---
Author Organization [employer] Address [address] [facility] [address] [place] [address] Care Team Providers Care Civil Preparedness Coordinator Name Role Phone Myah Singh MD Primary Care Provider [phone] Reason for Visit * Reason Comments Med Refill Encounter Details Date Type Department Care Team (Late st Contact Info) Description 05/22/2024 Refill [facility] [address] [place], [place] [phone] Myah Singh MD [address] [place], [place] [phone] Social History Tobacco Use Types Packs/Day Years [...] documented as of this encounter Care Teams Civil Preparedness Coordinator Relationship Specialty Start Date End Date Myah Singh MD [address] [place] [address] PCP - General Family Medicine 11/08/12 [facility] 12/31/24 07/29/25 documented as of this encounter
--- OUTSIDE RECORDS SUMMARY | 2025-08-30 13:32 | XMS_ITS | Encounter Summary ---
Author Organization [employer] Address [address] [place] [address] Care Team Providers Care Outsole Flexer Name Role Phone Tony Arreola MD Primary Care Provider [phone] Encounter Details Date Type Department Care Team (Late st Contact Info) Description 02/24/2025 Lab Requisition [facility] - Main Lab [address] [facility] [place] [address] Venus Mayberry MD [address] [place], [place] [phone] Essential (primary) hypertension; Type 2 diabetes mellitus [...] * Vitamin B12 (02/24/2025 6:34 AM EDT) [facility] Vitamin B-12 324 250 - 900 pcg/mL LAB CHEMISTRY METHOD 02/24/2025 12:24 PM EDT [facility] Blood Venous blood specimen / Unknown Venipuncture / Unknown 02/24/2025 6:34 AM EDT 02/24/2025 10:44 AM EDT us Venus Mayberry MD LAB BLOOD ORDERABLES Final Resul t Performing Organization Address City/[facility]/ZIP Co de Phone Number [facility] [address] [place] [address], [place] [phone] * Folate (02/24/2025 6:34 AM EDT) [facility] Folate 11.3 2.8 - 17.0 ng/ml LAB CHEMISTRY METHOD 02/24/2025 12:24 PM EDT [facility] Blood Venous blood specimen / Unknown Venipuncture / Unknown 02/24/2025 6:34 AM EDT 02/24/2025 10:44 AM EDT us Venus Mayberry MD LAB BLOOD ORDERABLES Final Resul t Performing Organization Address City/[facility]/ZIP Co de Phone Number [facility] [address] [place] [address], [place] [phone] * (ABNORMAL) Vitamin D 25 hydroxy (02/24/2025 6:34 AM EDT) Pathologist [facility] Vit D, 25-Hydroxy 29.9(L) 30.0 - 80.0 ng/mL LAB CHEMISTRY METHOD 02/24/2025 1:12 PM EDT [facility] Blood Venous blood specimen / Unknown Venipuncture / Unknown 02/24/2025 6:34 AM EDT 02/24/2025 10:44 AM EDT us Venus Mayberry MD LAB BLOOD ORDERABLES Final Resul t Performing Organization Address [facility] Co de Phone Number [facility] [address] [place] [address], * Thyroid stimulating hormone (02/24/2025 6:34 AM EDT) [facility] TSH 1.44 0.40 - 4.00 mcIU/mL LAB CHEMISTRY METHOD 02/24/2025 1:13 PM EDT [facility] Blood Venous blood specimen / Unknown Venipuncture / Unknown 02/24/2025 6:34 AM EDT 02/24/2025 10:44 AM EDT us Venus Mayberry MD LAB BLOOD ORDERABLES Final Resul t Performing Organization Address [facility] de Phone Number [facility] [address] [place] [address], [place] [phone] * Hemoglobin A1c (02/24/2025 6:34 AM EDT) [facility] Hemoglobin A1C 5.9 <6.5 % LAB CHEMISTRY METHOD 02/24/2025 9:29 PM EDT [facility] Mean Bld Glu Estim. 123 mg/dL LAB CHEMISTRY METHOD 02/24/2025 9:29 PM EDT [facility] Blood Venous blood specimen / Unknown Venipuncture / Unknown 02/24/2025 6:34 AM EDT 02/24/2025 10:44 AM EDT us Venus aMyberry MD LAB BLOOD ORDERABLES Final Resul t [facility] [address] [place] [address], [place] [phone] * (ABNORMAL) Comprehensive metabolic panel (02/24/2025 6:34 AM EDT) Sodium 142 133 - 145 mmol/L LAB CHEMISTRY METHOD 02/24/2025 12:24 PM EDT [facility] Potassium 4.1 3.5 - 5.5 mmol/L LAB CHEMISTRY METHOD 02/24/2025 12:24 PM [facility] Chloride 108 96 - 110 mmol/L LAB CHEMISTRY METHOD 02/24/2025 12:24 PM [facility] CO2 28 21 - 32 mmol/L LAB CHEMISTRY METHOD 02/24/2025 12:24 PM [facility] Anion Gap 6 3 - 11 LAB CHEMISTRY METHOD 02/24/2025 12:24 PM [facility] Glucose 91 70 - 100 mg/dL LAB CHEMISTRY METHOD 02/24/2025 12:24 PM [facility] BUN 30(H) 5 - 25 mg/dL LAB CHEMISTRY METHOD 02/24/2025 12:24 PM [facility] Creatinine 1.02 0.50 - 1.10 mg/dL LAB CHEMISTRY METHOD 02/24/2025 12:24 PM [facility] eGFR 53(L) >=60 mL/min/1. 73m2 LAB CHEMISTRY METHOD 02/24/2025 12:24 PM [facility] Comment:Calculation based on the Chronic Kidney Disease Epidemiology Collaboration (CKD-EPI) equation refit without adjustment for race. BUN/Creatinine Ratio 29.4 LAB CHEMISTRY METHOD 02/24/2025 12:24 PM [facility] Calcium 10.5 8.5 - 10.5 mg/dL LAB CHEMISTRY METHOD 02/24/2025 12:24 PM EDT [facility] AST (SGOT) 31 10 - 42 unit/L LAB CHEMISTRY METHOD 02/24/2025 12:24 PM EDT [facility] ALT (SGPT) 36 10 - 60 unit/L LAB CHEMISTRY METHOD 02/24/2025 12:24 PM EDT [facility] Alkaline Phosphatase 82 42 - 121 unit/L LAB CHEMISTRY METHOD 02/24/2025 12:24 PM EDT [facility] Total Protein 6.8 6.0 - 8.0 g/dL LAB CHEMISTRY METHOD 02/24/2025 12:[facility] Albumin 3.1(L) 3.2 - 5.0 g/dL LAB CHEMISTRY METHOD 02/24/2025 12:24 PM EDT [facility] Total Bilirubin 0.4 0.0 - 1.4 mg/dL LAB CHEMISTRY METHOD 02/24/2025 12:24 PM EDT [facility] Blood Venous blood specimen / Unknown Venipuncture / Unknown 02/24/2025 6:34 AM EDT 02/24/2025 10:44 AM EDT us Venus Mayberry MD LAB BLOOD ORDERABLES Final Resul t [facility] [address] [place] [address], * (ABNORMAL) Complete blood count (02/24/2025 6:34 AM EDT) WBC 6.0 4.8 - 10.8 K/mcL LAB HEMETOLOGY METHOD 02/24/2025 1:12 PM EDT [facility] RBC 4.80 3.80 - 4.80 M/mcL LAB HEMETOLOGY METHOD 02/24/2025 1:12 PM [facility] Hemoglobin 14.3 11.5 - 16.0 g/dL LAB HEMETOLOGY METHOD 02/24/2025 1:12 PM [facility] Hematocrit 45.6 35.0 - 47.0 % LAB HEMETOLOGY METHOD 02/24/2025 1:12 PM [facility] MCV 94.2 79.0 - 98.0 FL LAB HEMETOLOGY METHOD 02/24/2025 1:12 PM [facility] MCH 29.5 27.0 - 32.0 pcg LAB HEMETOLOGY METHOD 02/24/2025 1:12 PM [facility] MCHC 31.4(L) 32.0 - 37.0 g/dL LAB HEMETOLOGY METHOD 02/24/2025 1:12 PM [facility] RDW 14.7 11.0 - 15.0 % LAB HEMETOLOGY METHOD 02/24/2025 1:12 PM [facility] Platelets 154 130 - 400 K/mcL LAB HEMETOLOGY METHOD 02/24/2025 1:12 PM [facility] MPV 11.7(H) 7.0 - 11.0 FL LAB HEMETOLOGY METHOD 02/24/2025 1:12 PM [facility] NRBC 0.0 <1.0 % LAB HEMETOLOGY METHOD 02/24/2025 1:12 PM [facility] NRBC Absolute 0.00 <0.10 K/mcL LAB HEMETOLOGY METHOD 02/24/2025 1:12 PM [facility] Blood Venous blood specimen / Unknown Venipuncture / Unknown 02/24/2025 6:34 AM EDT 02/24/2025 10:44 AM EDT Venus Mayberry MD LAB BLOOD ORDERABLES Final Resul t [facility] [address] [place] [address], documented in this encounter Visit Diagnoses Diagnosis Essential (primary) hypertension Unspecified essential hypertension Type 2 diabetes mellitus without complications (CMS/HCC V24, CMS/HCC V28) documented in this encounter Care Teams Outsole Flexer Relationship Specialty Start Date End Date Tony Arreola MD [address] [place] [address], [phone] PCP - General Family Medicine 12/14/24 documented as of this encounter
--- OUTSIDE RECORDS SUMMARY | 2025-08-30 13:32 | XMS_ITS | Data Portability ---
Author Organization [facility], Main Office Address [address] [place] [address] Care Team Providers Care Bagman/Woman Name Role Phone [facility] OTHER Assessment No assessment recorded. Plan of [...] Name and Address Organization Details Recorded Time Asthma [id number] Active 2017 ANGELITA VANG [address], [address], [place], [address] , [facility] [employer] [employer] [facility] 8 15:12:32 Dementia 68591757 Active 2017 ANGELITA VAGN [address], [address], [place], [address] , [facility] [employer] [facility] [employer] 8 15:12:53 Depressiv e disorder 05646719 Active 2017 ANGELITA VANG [address], [address], [place], [address] , [facility] [employer] [facility] [employer] 8 15:13:06 Coronary arteriosc lerosis 74531271 Active 2017 history of NSTEMI ANGELITA VANG [address], [address], [place], [address] , [facility] [employer] [facility] [employer] [facility] 8 15:13:24 Hyperlipi demia 32984492 Active 2017 ANGELITA VANG [address], [address], [place], [address] , [facility] 8 15:14:00 Essential hypertens ion 14673133 Active 2017 ANGELITA VANG [address], [address], [place], [address] , [facility] 8 15:14:57 History of cerebrova scular accident 587867490 Active 2017 right sided weakness ANGELITA VANG [address], [address], [place], [address] , [facility] 8 15:15:19 Influenza 6323742 Active 2017 ANGELITA VANG 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, [address], [place], [address] , [facility] 8 16:05:54 Osteoporo sis 42609746 Active 2017 ANGELITA VANG [address], [address], [place], [address] , [facility] 8 16:06:06 Gastroeso phageal reflux disease 823785829 Active 2017 ISABELLE ALYSSA [facility] [employer] [address] [place] [address], [address], [place], [address] , [facility] 8 16:08:23 Asthenia 52541066 Active 2017 Thais Rocha MD [address] [place] [address], [facility] [address], [place], [address] , [facility] 8 13:54:57 Acute kidney injury 96291833 Active 2017 Thais Rocha MD [address] [place] [address], [address], [place], [address] , [facility] 8 14:30:45 Type 2 diabetes mellitus 38464903 Active 2023 Not Available [facility] 5 10:33:31 Muscle weakness 65129683 Active 2023 Not Available [facility] 5 10:33:31 Difficult y walking 381539250 Active 2023 Not Available [facility] 5 10:33:32 Dyspnea 245477279 Active 2023 Not Available [facility] 5 10:33:32 Anxiety disorder 257794407 Active 2023 Not Available [facility] 5 10:33:33 Insomnia 350585788 Active 2023 Not Available [facility] 5 10:33:34 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 97429083061 9100 Active 2023 Not Available [facility] 5 10:33:34 Cerebrova scular disease 40272353 Active 2023 Not Available [facility] 5 10:33:35 Fall Active 2023 Not Available [facility] 5 10:33:36 Allergic contact dermatiti s 442774965 Active 2023 Not Available [facility] 5 10:33:37 Diaphragm atic hernia 83375954 Active 2023 Not Available [facility] 5 10:33:38 Constipat ion 73161110 Active 2023 Not Available [facility] 5 10:33:38 Coronavir us infection 305409773 Active 2023 Not Available [facility] 5 10:33:39 Dementia associate d with another disease 569224181 Active 2023 Not Available [facility] 5 10:33:39 Chronic kidney disease stage 3 933705753 Active 2023 Not Available [facility] 5 10:33:39 Chronic kidney disease stage 3A 087284947 Active 2024 Tony Arreola MD [address], [address], [place], [address] , [facility] 5 08:58:43 Cirrhosis of liver 54581346 Active 2024 Tony Arreola MD [address], [address], [place], [address] , [facility] 5 08:58:50 Aortic valve stenosis 03615766 Active 2024 Tony Arreola MD [address], [address], [place], [address] , [facility] 5 08:59:06 Diabetes mellitus 43215806 Active 2024 Tony Arreola MD [address], [address], [place], [address] , [facility] 5 08:59:17 Delusiona l disorder 47531075 Active 2024 Not Available [facility] 5 12:34:52 Problem Notes None recorded. Medical Equipment None Reported. Allergies Allergen ID Allergen Name Allergen Category Reaction Reaction Severity Criticality Documentation Date Start Date Code Code System Note Provider Name and Address Organization Details Recorded Time 80772 Reglan medicatio n Not available Not available Not available 12/19/20242023 9230 RxNorm Not Available [facility] 5 10:33:44 9455 tetracain e medicatio n Not available Not available Not available 01/03/20182023 36273 RxNorm Not Available [facility] 5 10:33:44 9456 benzocain e medicatio n Not available Not available Not available 01/03/20182023 1399 RxNorm Not Available [facility] 5 10:33:44 9457 butamben medicatio n Not available Not available Not available 01/03/20182023 33491 RxNorm Not Available [facility] 5 10:33:44 9458 morphine medicatio n Not available Not available Not available 01/03/20182023 7052 RxNorm Not Available [facility] 5 10:33:44 9459 metoclopr amide Not available Not available Not available Not available 01/03/2018 6915 RxNorm ISABELLE SHAH, [facility] [employer] [address], [address], [place], [address], [facility] 8 15:01:21 9460 ceftazidi me anhydrous medicatio n Not available Not available Not available 01/03/20182023 16749 84 RxNorm Not Available [facility] 5 10:33:44 Medications Name Sig Start Date Stop Date [...] Available Not Available Not Avai lable Acid Coordinator Of [employer] (omeprazole ) 20 mg capsule,del ayed release [...] Available Not Avai lable Vitals Date Recorded Systolic And Diastolic Provider Name and Address Organization Details Last Updated DateTime 12/02/2024 122/57 mm[Hg] Tony Arreola MD [address], [address], [place], [address], [facility] 12/02/2024 08:50:04 Date Recorded Heart rate Respiratory rate Body temperature Oxygen saturation Oxygen saturation in Arterial blood by Pulse oximetry Systolic And Diastolic Provider Name and Address Organization Details Last Updated DateTime 5 67 /min 14 /min 97.9 [degF] 96 % 96 % 102/49 mm[Hg] HAKEEM JOHNSON NP [address], [address], [place], [address], [facility] 5 14:47:00 Date Recorded Body height Body mass index (BMI) Body weight Heart rate Respiratory rate Body temperature Oxygen saturation Oxygen saturation in Arterial blood by Pulse oximetry Systolic And Diastolic Provider Name and Address Organization Details Last Updated DateTime 5 152.4 cm 32.9 kg/m2 58767.9 6 g 72 /min 20 /min 97.3 [degF] 95 % 95 % 114/63 mm[Hg] Thais Rocha MD [address], [address], [place], [address], [facility] 5 18:57:01 Social History Question Answer Notes LastModified by Organizat ion Details LastModified Time Tobacco Smoking Status Former Smoker Thais Rocha MD [address], [address], [place], [address], [facility] 01/04/2018 14:12:51 Do You Have An Advance Directive? Yes DNR/DNI/DNV, Ok To Hosp, No Dialysis, No Art. Nutrition, Ok For Short Term Hydration Information not available 01/04/2018 How Much Tobacco Do You Chew? None Information not available 01/04/2018 What Is Your Code Status? DNR/DNI [email or web address] Information not available 12/02/2024 How Many Days In The Past Year Have You Had A Heavy Drinking Consumption (4+ Female, 5+ Male)? 0 Information not available 01/04/2018 Do You Have A Medical Power Of Pleater? Yes Information not available 01/04/2018 What Was The Date Of Your Most Recent Tobacco Screening? 01/04/2018 Information not available 06/19/2019 Has Tobacco Cessation Counseling Been Provided? No N/a As Pt No Longer Smokes Information not available 12/19/2024 Sex: Unknown Functional Status Question Answer Note LastModified by Organizat ion Details LastModified Time Do you use any illicit or recreational drugs? No Information not available 12/19/2024 Do you or have you ever used any other forms of tobacco or nicotine? No Information not available 12/19/2024 What is your level of alcohol consumption? None Information not available 01/04/2018 Mental Status None recorded. Family History Nothing Reported Notes:N/C Medical History No medical history recorded. Gynecological HistoryNo gynecological history recorded. Obstetrics History GPAL:G 0 P 0 0 0 0 Past Encounters Encounter ID Performer Location Encounter Start Date Encounter Closed Date Diagnosis/Indication Diagnosis SNOMED-CT Code Diagnosis ICD10 Code Diagnosis IMO Codes Diagnosis Note [id number] ANGELITA VANG [address] [facility] [address] 01/03/2018 15:00:09 01/12/2018 16:14:28 Influenza 6529398 J10.89 Flu A + in hospitalTa miflu was completedm onitor Essential hypertension 43566575 I10 lisinopril 20 mg qdlasix 20 mg qdnorvasc 5 mg qdmonitor b/p and labs Hyperlipidemia 37466376 E78.2 atorvastat in 20 mg qdmonitor labs Depressive disorder 3548 9007 F32.0 prozac 40 mg qdremeron 15 mg qdtrazodon e 50 mg qdhaldol 1 mg qdneg consult prnmonitor mood Dementia 38005681 F02.80 namenda 10 mg bidaricept 10 mg qdmonitor mood Coronary arteriosclerosis 10027498 I25.10 ASA 81 mg qdmonitor Osteoporosis 00056252 M8 1.0 calcium carbonate/ vit. D3 600/vit d bidmonitor labs Bladder mu scle dysfunction - overactive 901168278 N32.81 myrbetriq 50 mg qdincontin ent of urinemonit or History of cerebrovascular accident 466104818 Z86.73 right sided weaknessmo nitor Asthma 005641592 J45.20 zyrtec 10 mg qdmonitor resp status Gastroesop hageal reflux disease 184009814 K21.9 omeprazole 40 mg qdmonitor Asthenia 42731691 R53.1 PT/OT eval and treatambul ate [facility] [address] Thais [facility]ocha MD [facility] [address] [place] [address] rd [place] [address] 01/04/2018 13:51:14 01/12/2018 16:19:02 Asthenia 86057566 R53.1 Deconditio david after acute illness, needs PT/OT for strengthen ing and gait training. At baseline ambulates with walker. Anticipate less than 30 day stay and return home. Influenza 2247072 J10.89 Positive for influenza A in hospital, completed course of Tamiflu.Mo nitor Essential hypertension 36231149 I10 Stable on lisinopril 20 mg qd, lasix 20 mg qd and norvasc 5 mg qd.monitor BP and labs Hyperlipidemia 30215873 E78.2 Continue atorvastat in 20 mg qdmonitor chol with PCP. Depressive disorder 3548 9007 F32.0 Continue prozac 40 mg qd, remeron 15 mg qd, trazodone 50 mg qd and haldol 1 mg qd. Monitor mood and consider NEG consult Dementia 69238851 F02.80 Continue namenda 10 mg bid and aricept 10 mg qd. Expect continued decline. Provide supportive care. Coronary arteriosclerosis 70983941 I25.10 Continue ASA 81 mg qd and statin. F/U with Cardio prn Osteoporosis 96236080 M8 1.0 Continue calcium carbonate/ vit. D3 600/vit d bid Bladder mu scle dysfunction - overactive 099793713 N32.81 Continue myrbetriq 50 mg qdmonitor History of cerebrovascular accident 181862303 Z86.73 Residual right sided weakness. PT/OT as above. Follow for recurrence . Asthma 225537008 J45.20 Continue zyrtec 10 mg qdmonitor resp status Gastroesop hageal reflux disease 300195351 K21.9 No current sxs, continue omeprazole 40 mg qdmonitor Acute kidney injury 1466 9001 N17.8 Improved in hospital, not 100% nl. Will recheck today. May have baseline mild CRF. [id number] ANGELITA VANG MICHELLE [address] [place] [address] [place] [address] 01/08/2018 13:49:05 01/12/2018 16:24:28 Cough 11665551 R05 bilateral lungs with wheezes and rhonchi throughout cough noted but non productive had flu in hospitalPP D was planted and is 30 mmchest x-ray orderedduo nebs ordered qid x3 days and prnmonitor for worsening symptoms [id number] ANGELITA VANG MICAELA MICHELLE [address] [place] [address] 01/10/2018 13:57:28 01/12/2018 16:27:43 Cough 74750816 R05 continues with cough but now has yellow sputumstat es she feels betterbila teral lungs are clear nowcontinu e to monitor [id number] Tony Arreola MD [address] [address] 01/15/2018 10:39:11 01/15/2018 13:20:57 Acute low back pain 149614714 M54.5 x ray L-S spineproba ble mild left sacroillii tisPT OT eval and treattylen ol for paincontin ue to monitorcon isder SI brace [id number] ANGELITA VANG [address] [address] 01/24/2018 13:45:00 01/25/2018 11:35:41 Dementia 40994370 F02.80 namenda 10 mg bidaricept 10 mg qdfollow up with PCP Hyperlipidemia 64463389 E78.2 atorvastat in 20 mg qdfollow up with PCP Essential hypertension 79734236 I10 lisinopril 20 mg qdlasix 20 mg qdnorvasc 5 mg qdfollow up with PCP Gastroesop hageal reflux disease 931537583 K21.9 omeprazole 40 mg qdfollow up with PCP Osteoporosis 62745597 M8 1.0 calcium carbonate/ vit. D3 600/vit d bidtylenol prn pain follow up with PCP Depressive disorder 3548 9007 F32.0 prozac 40 mg qdremeron 15 mg qdtrazodon e 50 mg qdhaldol 1 mg qdfollow up with PCP Asthma 433527840 J45.20 zyrtec 10 mg qdfollow up with PCP Coronary arteriosclerosis 56972519 I25.10 ASA 81 mg qdfollow up with PCP Bladder mu scle dysfunction - overactive 712227155 N32.81 myrbetriq 50 mg qdfollow up with PCP History of cerebrovascular accident 464026794 Z86.73 right sided weaknessfo llow up with PCP [id number] Tony Arreola MD [facility] [address] [place], [place] [address] 12/02/2024 08:34:30 12/03/2024 11:00:58 Asthenia 85381406 R53.1 PT OT Eval and treatmonit or fall risk and need for increased support in community Essential hypertension 15006334 I10 lisinopril 20 mg qdnorvasc 5 mg qdmonitor bp and need to titrate Hyperlipidemia 49175312 E78.2 lipitor 20 mg qdcontinue d Depressive disorder 3548 9007 F32.0 prozac 40 mg qdremeron 15 mg qdmonitor moodsee above Dementia 36785111 F02.80 baseline dementiain voke [facility] - granddaugh tercontinu e supportive caremonito r for behaviorsp sych eval prnaricept 10 mg qdnamenda 10 mg bidof note currently on haldol qd - will await psych rec Coronary arteriosclerosis 63908140 I25.10 lipitor 20 mg qdasa 81 mg qdmonitor forupdate cards with concerns Gastroesop hageal reflux disease 797934351 K21.9 omeprazole 40 mg qdmonitor for sx relief COVID-19 733081188 U07.1 limited informatio n will request dc summary appears dx with covid now completed treatment Diabetes mellitus 563356 09 E11.9 carrying dx added to PMHjardian ce 10 mg qdmonitor blood glucose prn Aortic valve stenosis 60 570862 I35.0 limited informatio n availabler equest notes from PCP Cirrhosis of liver K74.69 limited informatio n availabler equest notes from PCP Chronic ki dney disease stage 3A 356271798 N18.31 monitor renal functionav oid nephrotoxi c meds as ablenephro consult prn [id number] HAKEEM JOHNSON NP [facility] [address] [place] [address] 12/09/2024 14:46:28 12/11/2024 08:32:16 Asthenia 97497051 R53.1 PT OT Eval and treatmonit or fall risk and need for increased support in community Dementia 96656466 F02.80 baseline dementiain voke HCP - granddaugh tercontinu e supportive caremonito r for behaviorsp sych eval prnaricept 10 mg qdnamenda 10 mg bidof note currently on haldol qd - will await psych rec COVID-19 190694752 U07.1 limited informatio n appears dx with covid now completed treatmentm onitor for sequelae Essential hypertension 81043699 I10 BP soft the past week or so.CBC today stable, chem pendingMai ntain fluidsCurr ently on:lisinop ril 20 mg qdnorvasc 5 mg qd - reduce to 2.5 mg qdmonitor bp and need to titrate Hyperlipidemia 01196302 E78.2 Continue lipitor 20 mg qdConsider stopping, ? benefit vs, risk in frail elder Depressive disorder 1328 9007 F32.0 prozac 40 mg qdremeron 15 mg qdmonitor moodsee above Coronary arteriosclerosis 73729719 I25.10 Continue:l ipitor 20 mg qdasa 81 mg qdmeds for BP controlmon itor VS, CP statusupda te cards with concerns Gastroesop hageal reflux disease 036404167 K21.9 Continue omeprazole 40 mg qdmonitor for sx relief Diabetes mellitus 036444 09 E11.9 carrying dx added to PMHjardian ce 10 mg qdmonitor blood glucose - bid x 7 days, then re-eval.ch yovany A1C prn Aortic valve stenosis 60 337044 I35.0 limited informatio n availabler equest notes from PCP Cirrhosis of liver K74.69 limited informatio n availabler equest notes from PCP Chronic ki dney disease stage 3A 884563383 N18.31 monitor renal functionav oid nephrotoxi c meds as ablenephro consult prn [id number] MD RICARDA Engle [address] [place] [address] 12/19/2024 18:31:17 12/20/2024 16:13:52 Diabetes mellitus 69471439 E11.9 With low sugars since here.Will change fingerstic ks to fasting on Mon & and prn (compromis e with granddaugh ter from my preference of M/W/F).Con tinue Jardiance 10 mg qd. [id number] FLO LEE, SHAHZAD-C RICARDA [address] [place] [address] 12/24/2024 09:08:15 12/31/2024 08:39:05 Diabetes mellitus 69477092 E11.9 With low sugars since here.[place] nue Jardiance 10 mg qd.monitor with VNAconside r decrease in jardiance if BS remains < 100 given age of 89 Asthenia 18433232 R53.1 continue PT OTworking on doing stairsfami ly very supportive VNA services in place per Dementia 03713010 F02.80 baseline dementiain voke HCP - granddabreanna teraricept 10 mg qdnamenda 10 mg bidhaldol once daily COVID-19 898979656 U07.1 resolved Essential hypertension 62590366 I10 improved with reduced dose of amlodipine lisinopril 20 mg qdnorvasc 2.5 mg qdmonitor bp and consider decrease outptpermi ssive BP goals for frail elderly of < 160/ 90 Hyperlipidemia 86096265 E78.2 Continue lipitor 20 mg qdlipids yearly outpt Depressive disorder 4528 9007 F32.0 prozac 40 mg qdremeron 15 mg qdmonitor mood outpt Coronary arteriosclerosis 59682969 I25.10 Continue:l ipitor 20 mg qdasa 81 mg qdmeds for BP control Gastroesop hageal reflux disease 273659553 K21.9 Continue omeprazole 40 mg qdmonitor for sx relief outpt Aortic valve stenosis 60 235219 I35.0 limited informatio n availablen o CP or sob here Cirrhosis of liver 33102 007 K74.69 limited informatio n available Chronic ki dney disease stage 3A 435169643 N18.31 monitor renal function, stable 12/23 labsavoid nephrotoxi c meds as ablenephro consult prn Conjunctivitis 8343487 H 10.9 erythro ophthalmic qid x 7 daysmonito r for improvemen t [id number] MICHAEL RAMOS [facility] [address] [place] [address] 12/27/2024 09:21:35 12/31/2024 09:41:18 Diabetes mellitus 47121456 E11.9 With low sugars since here.[place] nue Jardiance 10 mg qd.monitor with VNAconside r decrease in jardiance if BS remains < 100 given age of 89f/up with pcp Asthenia 81886769 R53.1 completed STR 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 very supportive VNA services in place per SWf/up with pcp Dementia 23209620 F02.80 baseline dementiain [facility] e supportive care with [employer] 6 hr per day at homearicep t 10 mg qdnamenda 10 mg bidhaldol once dailyf/up with pcp COVID-19 333140439 U07.1 resolvedf/ up with pcp Essential hypertension 69616726 I10 improved with reduced dose of amlodipine lisinopril 20 mg qdnorvasc 2.5 mg qdmonitor bp and consider decrease outptpermi ssive BP goals for frail elderly of < 160/ 89f/up with pcp Hyperlipidemia 55889181 E78.2 Continue lipitor 20 mg qdlipids yearly outptf/up with pcp Depressive disorder 4003 9007 F32.0 prozac 40 mg qdremeron 15 mg qdmonitor mood outptf/up with pcp Coronary arteriosclerosis 50998985 I25.10 Continue:l ipitor 20 mg qdasa 81 mg qdmeds for BP controlf/u p with pcp Gastroesop hageal reflux disease 259518368 K21.9 Continue omeprazole 40 mg qdmonitor for sx relief outptf/up with pcp Aortic valve stenosis 60 245946 I35.0 limited informatio n availablen o CP or sob heref/up with pcp Cirrhosis of liver 007 K74.69 limited informatio n availablef /up with pcp Chronic ki dney disease stage 3A 851795469 N18.31 monitor renal function, stable 12/23 labsavoid nephrotoxi c meds as ablenephro consult prnf/up with pcp Conjunctivitis 9698499 H 10.9 erythro ophthalmic qid x 7 daysmonito r at homef/up with pcp Health Concerns Section Related Observation LastModified by Organization Detai ls LastModified Time None Recorded Concern Status LastModified by Organization Details LastModified Time None Recorded Advance Directives Directive Y: DNR/DNI/DNV, ok to hosp, no dialysis, no art. nutrition, ok for short term hydration Payers Insurance Date Sequence Insurance Name Policy Number Policy Gonzalez Covered Member ID Gonzalez Member ID Guarantor Name 12/31/2024 1 [facility] - DOS ON OR AFTER 2023 - MEDICARE [place]VANTAGE [place]MEDICARE REPLACEMENT/ADV ANTAGE - PPO) Sienna Mendez [id number] Elena Hurtado 12/02/2024 1 [facility] - DOS PRIOR TO 2023 - DUAL ELIGIBLE (MEDICARE REPLACEMENT/ADV ANTAGE - HMO) Sienna Mendez [id number] Elena Hurtado 12/31/2024 2 [place] [facility] Sienna Andrea [id number] Elena Hurtado Notes Date Note Type Note [...] therapy eval and treat Tony Arreola MD [address] [place] [address], [address], [place], [address], [facility] 12/02/2024 09:20:00 12/09/2024 text/html Sienna is seen today for an acute visit. She is an [...] issues reported by nsg. Case discussed with [employer], who reports she did not eat as well today compared to other days. No other concerns. VSS, BP on the soft side the past week.Labs stable, chem pending today.No BS documented PMH: dementia , crf stage 3, cirrhosis, , dm, htn, cad, gerd, hld, depression, hx CVA HAKEEM JOHNSON NP [address] [facility], [facility] [address], [place], [address], [facility] 12/09/2024 15:01:58 12/19/2024 text/html I am asked to see this 89 yo albanian speaking woman rayshawn because her granddaughter is concerned that her fingers are getting sore from frequent fingersticks. She says she doesn't really even have diabetes, she's just borderline and at home the dr. says to just check once a week [...] and dementia. Thais Rocha MD [address] [facility], [address], [place], [address], [facility] 12/19/2024 19:10:59 12/24/2024 text/html Patient is an [...] 3B, GERD, depression, and dementia. ATIF RAMOSC [address], [address], [place], [address], [facility] 12/29/2024 16:21:25 12/27/2024 text/html Patient is an [...] and received 6 hrs per day of [employer] care. Seen today and she is medically clear for dc home with meds and services. Her PMH includes HTN, depression, hx of CVA, CAD s/p NSTEMI, cirrhosis, asthma, HLD, CKD stage 3B, GERD, depression, and dementia. ATIF RAMOSC [address], [address], [place], [address], [facility] 12/27/2024 09:38:55 OBGyn Episode No OBEpisode recorded.
--- OUTSIDE RECORDS SUMMARY | 2025-08-30 13:32 | XMS_ITS | Encounter Summary ---
Author Organization [employer] Address [address] [place] [address] Care Team Providers Care Stenocaptioner Name Role Phone Tony Arreola MD Primary Care Provider [phone] Encounter Details Date Type Department Care Team (Late st Contact Info) Description 12/14/2024 Lab Requisition [facility] - Main Lab [address] [place] [address] Tony Arreola MD 38 [facility] [address] [place], [address] Weakness; Unspecified dementia, unspecified severity, without [...] mmol/L LAB CHEMISTRY METHOD 12/16/2024 1:55 PM [facility] Potassium 4.1 3.5 - 5.5 mmol/L LAB CHEMISTRY METHOD 12/16/2024 1:55 PM [facility] Chloride 113(H) 96 - 110 mmol/L LAB CHEMISTRY METHOD 12/16/2024 1:55 PM [facility] CO2 28 21 - 32 mmol/L LAB CHEMISTRY METHOD 12/16/2024 1:55 PM [facility] Anion Gap 5 3 - 11 LAB CHEMISTRY METHOD 12/16/2024 1:55 PM [facility] Glucose 88 70 - 100 mg/dL LAB CHEMISTRY METHOD 12/16/2024 1:55 PM [facility] BUN 25 5 - 25 mg/dL LAB CHEMISTRY METHOD 12/16/2024 1:55 PM [facility] Creatinine 1.26(H) 0.50 - 1.10 mg/dL LAB CHEMISTRY METHOD 12/16/2024 1:55 PM [facility] eGFR 41(L) >=60 mL/min/1. 73m2 LAB CHEMISTRY METHOD 12/16/2024 1:55 PM [facility] Comment:Calculation based on the Chronic Kidney Disease Epidemiology Collaboration (CKD-EPI) equation refit without adjustment for race. BUN/Creatinine Ratio 19.8 LAB CHEMISTRY METHOD 12/16/2024 1:55 PM [facility] Calcium 9.3 8.5 - 10.5 mg/dL LAB CHEMISTRY METHOD 12/16/2024 1:55 PM [facility] Blood Venous blood specimen / Unknown Venipuncture / Unknown 12/16/2024 7:20 AM EST 12/16/2024 11:32 AM EST us Tony Arreola MD LAB BLOOD ORDERABLES Final Resul t [facility] [address] [place] [address], [place] [phone] * (ABNORMAL) Complete blood count (12/16/2024 7:20 AM EST) [facility] WBC 5.4 4.8 - 10.8 K/mcL LAB HEMETOLOGY METHOD 12/16/2024 12:51 PM [facility] RBC 4.60 3.80 - 4.80 M/mcL LAB HEMETOLOGY METHOD 12/16/2024 12:51 PM [facility] Hemoglobin 13.4 11.5 - 16.0 g/dL LAB HEMETOLOGY METHOD 12/16/2024 12:51 PM [facility] Hematocrit 43.8 35.0 - 47.0 % LAB HEMETOLOGY METHOD 12/16/2024 12:51 PM [facility] MCV 95.8 79.0 - 98.0 FL LAB HEMETOLOGY METHOD 12/16/2024 12:51 PM [facility] MCH 29.3 27.0 - 32.0 pcg LAB HEMETOLOGY METHOD 12/16/2024 12:51 PM [facility] MCHC 30.6(L) 32.0 - 37.0 g/dL LAB HEMETOLOGY METHOD 12/16/2024 12:51 PM [facility] RDW 14.9 11.0 - 15.0 % LAB HEMETOLOGY METHOD 12/16/2024 12:51 PM [facility] Platelets 135 130 - 400 K/mcL LAB HEMETOLOGY METHOD 12/16/2024 12:51 PM [facility] MPV 12.3(H) 7.0 - 11.0 FL LAB HEMETOLOGY METHOD 12/16/2024 12:51 PM [facility] NRBC 0.0 <1.0 % LAB HEMETOLOGY METHOD 12/16/2024 12:51 PM [facility] NRBC Absolute 0.00 <0.10 K/mcL LAB HEMETOLOGY METHOD 12/16/2024 12:51 PM EST [facility] Blood Venous blood specimen / Unknown Venipuncture / Unknown 12/16/2024 7:20 AM EST 12/16/2024 11:32 AM EST us Tony Arreola MD LAB BLOOD ORDERABLES Final Resul t [facility] ([facility]) [facility] [address] [place] [address], documented in this encounter Visit Diagnoses Diagnosis Weakness Other malaise and fatigue Unspecified dementia, unspecified severity, without behavioral disturbance, psychotic disturbance, mood disturbance, and anxiety (CMS/HCC V24, CMS/HCC V28) documented in this encounter Care Teams Stenocaptioner Relationship Specialty Start Date End Date Tony Arreola MD [address] [place] [address] [address] [place], [phone] PCP - General Family Medicine 12/14/24 documented as of this encounter
--- OUTSIDE RECORDS SUMMARY | 2025-08-30 13:32 | XMS_ITS | Encounter Summary ---
Author Organization [employer] Address [address] [place] [address] 7[address] [place] [address] Care Team Providers Care Color Checker Roving Or Yarn Name Role Phone Myah Singh MD Primary Care Provider [phone] Reason for Visit * Reason Onset Date Comments Durable Medical Equipment 01/30/2023 Encounter Details Date Type Department Care Team (Late st Contact Info) Description 01/30/2023 Telephone [facility] [address] [place], [place] [phone] Myah Singh MD [address] [place], [place] [phone] Durable Medical Equipment Social History Tobacco Use [...] call me or CHACE Beltran also patient FIELD SALES CONSULTANT can call them as they are the vendor for more information [phone] * Telephone Encounter - Uriahrociorashel Rodriguezmahad Marion - 01/30/2023 10:00 AM EST Tc from pt FIELD SALES CONSULTANT Jonathan stating that for the last two months pt Large Pull ups and Wipes have not been deliver Please contact jonathan at [phone] documented in this encounter Plan of Treatment Not on file documented as of this encounter Visit Diagnoses Not on filedocumented in this encounter Care Teams Color Checker Roving Or Yarn Relationship Specialty Start Date End Date Myah Singh MD [address] [place] [phone] PCP - General Family Medicine 11/08/12 [facility] 12/31/24 07/29/25 documented as of this encounter
--- OUTSIDE RECORDS SUMMARY | 2025-08-30 13:32 | XMS_ITS | Patient Health Record ---
Author Organization [facility] Address [address] [place] [address] Care Team Providers Care Shafting Worker Name Role Phone Samantha GARCIA, Myah Primary Care Provider Cali Bailey [phone] Allergies Allergen (clinical drug ingredient) Drug/Non Drug Allergy documented on EMR Reaction Allergy Type Onset Date Status Morphine Sulfate Unknown Drug Allergy Active benzocaine [...] Problem Status W/U Status Risk Notes Problem 450466368 Gastroesophageal reflux disease without esophagitis (K21.9) Active confirmed Problem 534662907 Elevated liver enzymes (R74.8) Active confirmed Problem [id number] Constipation, unspecified constipation type (K59.00) Active confirmed Plan Of Treatment Pending Test Test Name Order Date LIVER PROFILE 04/06/2016 Insurance Providers Payer Name Payer Address Payer Phone Subscriber Number Group Number Insured Name Patient Relationship to Insured Coverage Start Date Coverage End Date [facility] [address] [place] [address] [id number] ZITA PAPPAS Self - patient is the insured [place]ICARE OF [place] [address] [place] [address] [phone] [id number] ZITA PAPPAS Self - patient is the insured Medical (General) History Medical History History ICD Code GERD--UPPER ENDOSCOPY & COLO NOSCOPY IN 2007--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
--- OUTSIDE RECORDS SUMMARY | 2025-08-30 13:32 | XMS_ITS | Encounter Summary ---
Author Organization [employer] Address [address] [facility] 7t [place] [address] Care Team Providers Care Pharmacy Technician Per Diem Name Role Phone Myah Singh MD Primary Care Provider [phone] Reason for Visit * Reason Comments Med Refill Encounter Details Date Type Department Care Team (Late st Contact Info) Description 11/29/2023 Refill [facility] [address] [place], [place] [phone] Myah Singh MD [address] [place], [place] [phone] Vitamin D deficiency Social History Tobacco Use [...] documented as of this encounter Care Teams Pharmacy Technician Per Diem Relationship Specialty Start Date End Date Myah Singh MD [address] [place] [phone] PCP - General Family Medicine 11/08/12 [facility] 12/31/24 07/29/25 documented as of this encounter
--- OUTSIDE RECORDS SUMMARY | 2025-08-30 13:32 | XMS_ITS | Clinical Summary ---
Author Organization [employer] Address [address] [facility] 7t [place] [address] Care Team Providers Care Cosmetics Machine Operator Name Role Phone Myah Singh MD Primary Care Provider [phone] Allergies Active Allergy Reactions Criticality Noted Date [...] ROUTE 2 TIMES EVERY DAY 60 tablet 04/08/20 25 Active Lancets (Safety Lancet 30G/Pressure Act) miscIndications :Type 2 diabetes mellitus with other specified complication, without long-term current use of insulin (HCC) INJECT 1 BY INTO MACHINE ROUTE EVERY [...] unspecified whether stage 3a or 3b CKD (HCC) TEST BLOOD SUGAR DAILY AND NEEDED 100 each 10 08/05/20 25 Active cetirizine (ZyrTEC) 5 MG tablet TAKE 1 TABLET (5 MG) BY MOUTH IN THE MORNING. 30 tablet 1 08/11/20 25 Active glucose blood (FREESTYLE LITE) test stripIndication s:Type 2 diabetes mellitus with stage 3 chronic kidney disease, without long-term current use of insulin, unspecified whether stage 3a or 3b CKD (HCC) TEST BLOOD SUGAR DAILY AND NEEDED 100 each 11 07/23/20 24 025 Discontinued cetirizine (ZyrTEC) 5 MG tablet TAKE 1 TABLET (5 MG) BY MOUTH IN THE MORNING. 30 tablet 2 05/06/20 25 025 Discontinued Active Problems Problem Noted Date Diagnosed [...] PM EDT): -Oct 2015 -Previously following with [facility] Cardiology, upcoming appt -Continue risk factor mangement Assessment & Plan (01/07/2023 4:34 PM EST): -Oct 2015 -Previously following with [facility] Cardiology, upcoming appt -Continue risk factor [...] cm2. Mild aortic valve regurgitation. -Seen by senior web designer, Dr. Garcia in [facility], on 07/27/23, since she is not [...] cm2. Mild aortic valve regurgitation. -Seen by senior web designer, Dr. Garcia in [facility], on 07/27/23, since she is not [...] cm2. Mild aortic valve regurgitation. -Seen by senior web designer, Dr. Garcia in [facility], on 07/27/23, since she is not [...] -Pt has an upcoming appt with her senior web designer Assessment & Plan (01/07/2023 5:17 PM EST): - Most recent TTE 10/14/22: There is mild calcification of the aortic valve. There is moderate aortic valve stenosis. The peak aortic gradient is 33 mmHg.The mean gradient is 16 mmHg. There is mild aortic valve regurgitation. -Pt has loud murmur consistent with aortic stenosis -NSTEMI in 2014 -Pt has an upcoming appt with her senior web designer Anemia 01/07/2023 Assessment & Plan (01/07/2023 5:24 PM EST): - anemia of chronic disease (CKD, cirrhosis) - continue ferrous sulfate - check lab Diabetes mellitus, type 2 12/28/2022 Overview (04/07/2025): Frequent utis from jardiance Assessment & Plan (05/06/2025 11:29 AM EDT): Blood sugars are in range (90-110)without jardance, pt grandaughter and TELEPHONE MAINTENANCE MECHANIC deny any swelling, sob, orthopnea edema or [...] Dx 2021 - Hgb A1C 6.0% on 2/1/23 - Continue working on lifestyle modifications - [...] as pt has cirrhosis Cirrhosis of liver (CMS/HCC) 08/08/2016 Assessment & Plan (01/17/2025 6:07 AM [...] Plan (01/17/2025 5:56 AM EST): -Following with [facility] Sleep medicine clinic, last seen in [...] 05/21/2015 Severe major depression with psychotic features ([facility]/HCC) 02/23/2015 Assessment & Plan (01/17/2025 6:11 AM EST): - continue fluoxetine, trazodone, and mirtazapine as prescribed by psychiatrist. Thrombocytopenia 03/27/2013 Assessment & Plan (01/17/2025 6:10 AM EST): - in a setting of cirrhosis, compensated - monitor periodically Osteopenia 01/07/2013 Anxiety 12/10/2012 Dementia ([facility]) 12/10/2012 Assessment & Plan (01/17/2025 5:58 AM [...] Risk: CKD, age, NSTEMI, Hx CVA/TIA, DM2 -Shaker Tender: Previously [facility], pt has a new appt on [...] Risk: CKD, age, NSTEMI, Hx CVA/TIA, DM2 -Shaker Tender: Previously [facility] pt has a new appt on [...] Risk: CKD, age, NSTEMI, Hx CVA/TIA, DM2 -Shaker Tender: Previously [facility] pt has a new appt on [...] Risk: CKD, age, NSTEMI, Hx CVA/TIA, DM2 -Shaker Tender: Previously [facility] pt has a new appt on [...] Risk: CKD, age, NSTEMI, Hx CVA/TIA, DM2 -Shaker Tender: Previously [facility], pt has a new appt on [...] use - Followed by [facility], last seen in Jun 2024 [...] use - Followed by [facility], last seen in November 2023 [...] use - Followed by [facility], last seen on 05/31/23. - Continue mirabegron as prescribed, advised to have drug holiday from mirabegron, resume when pt's symptoms worsen Assessment & Plan (05/08/2023 11:04 AM EDT): - in a setting of dementia, DM2, and SGLT-2 inhibitor use - Followed by Dr. Vallecillo, [facility] - Continue mirabegron as prescribed Assessment & Plan (01/07/2023 4:51 PM EST): - in a setting of dementia, DM2, and SGLT-2 inhibitor use - Followed by Dr. Vallecillo, [facility] - Continue mirabegron as prescribed [...] SGLT-2 inhibitor Stage 3 chronic kidney disease ([facility]) 013 Assessment & Plan (05/06/2025 11:30 AM EDT): Monitor as jardiance was discontinued to due frequent complicated utis requiring rehab stays which contribute to deconditioning, Assessment & Plan (01/17/2025 6:08 AM EST): -Social Work Instructor: Dr. Martinez -Avoid nephrotoxic drugs and use renal dosing. -Recheck renal function today -On Jardiance, at low-dose, 10mg daily. Caution with UTI Assessment & Plan (02/04/2024 1:13 PM EDT): -Social Work Instructor: Dr. Martinez -Baseline: 09/26/22 BUN 29; SCr 1.2, eGFR 43, AST 12, ALT 19, AP 91 -Avoid nephrotoxic drugs and use renal dosing. -Recheck renal function today -On Jardiance, at low-dose, 10mg daily. Assessment & Plan (09/10/2023 4:32 PM EDT): -Social Work Instructor: Dr. Martinez, last seen in 2017 or 2018. Per caregiver, pt was discharged due to stability -Baseline: 09/26/22 BUN 29; SCr 1.2, eGFR 43, AST 12, ALT 19, AP 91 -Avoid nephrotoxic drugs and use renal dosing. -Recheck renal function today -On Jardiance, at low-dose, 10mg daily. Assessment & Plan (05/08/2023 11:04 AM EDT): -Social Work Instructor: Dr. Martinez, last seen in 2017 or 2018. Per caregiver, pt was discharged due to stability -Baseline: 09/26/22 BUN 29; SCr 1.2, eGFR 43, AST 12, ALT 19, AP 91 -Avoid nephrotoxic drugs and use renal dosing. -Recheck renal function today -On Jardiance, at low-dose, 10mg daily. Assessment & Plan (01/07/2023 4:54 PM EST): -Social Work Instructor: Dr. Martinez, last seen in 2016 or 2017. Per caregiver, pt was discharged due to [...] Type Department Care Team Description 08/09/2025 Refill [facility] [address] [place] [address] Myah Singh MD 08/07/2025 Orders Only GENERIC EXTERNAL DATA DEPARTMENT Provider, Generic External Data 08/04/2025 Refill [facility] [address] [place] [address] Myah Singh MD Type 2 diabetes mellitus with stage 3 chronic kidney disease, without long-term current use of insulin, unspecified whether stage 3a or 3b CKD ([facility]) 07/21/2025 Refill [facility] [address] [place] [address] Liliana Sears MD 07/21/2025 Refill [facility] [address] [place] [address] Myah Singh MD Allergic rhinitis, unspecified seasonality, unspecified trigger 07/10/2025 Telephone [facility] [address] [place] [address] Myah Singh MD Durable Medical Equipment (DME: Multiple Items) from Last 3 Months Immunizations Immunization Administration Dates Next Due Influenza High-dose Quadriva lent Preservative Free 09/11/2023,10/03/2022,09/22/2021 Influenza injectable quadriv alent IIV4 with preservative 09/27/2017,08/18/2015 Influenza injectable quadriv alent preservative free 12/22/2016 Influenza, High Dose Seasona l, Preservative Free 12/09/2019,08/23/2018 Influenza, IIV3, injectable 10/21/2014, 1 Influenza, Split (incl. meghan fied surface antigen) 09/27/2013,12/10/2012 Influenza, Unspecified 10/03/2022,2020,10/21/2014,08/22 Pfizer Covid-19 Vaccine 12+ 01/22/2024, Pfizer Covid-19 Vaccine 12+ Bivalent 10/03/2022 Pneumococcal [...] Additional history exists Influenza Vaccine (#1) 2025 , 09/11/2023, 10/03/2022, Additional history exists Diabetes: Hemoglobin [...] unspecified whether stage 3a or 3b CKD ([facility]/HCC) Dyslipidemia POCT GLYCOSYLATED HEMOGLOBIN (HGB A1C) Routine 09/11/2023 10:29 AM EDT Type 2 diabetes mellitus with stage 3 chronic kidney disease, without long-term current use of insulin, unspecified whether stage 3a or 3b CKD (CMS/HCC) from Last 3 Months or Most Recently Relevant to Health Maintenance Results * Glucose, Whole Blood (08/07/2025 12:20 PM EDT) Glucose, Whole Blood 90 60 - 115 mg/dL [facility] Comment:METER #: [id number] 08/07/2025 12:2 0 PM EDT 08/07/2025 4:35 PM EDT Generic External Data Provider LAB BLOOD ORDERAB LES Final Result Performing Organization Address [facility] Co de Phone Number [facility] [address] [place] [phone] * SARS-CoV-2 RNA, Influenza A/B, and RSV RNA, Ql NAAT (08/07/2025 8:48 AM EDT) Influenza A PCR NEGATIVE Negative [facility] Influenza B PCR NEGATIVE Negative [facility] Resp Syncy Virus RNA Qual PCR NEGATIVE Negative [facility] SARS COV2 PCR NEGATIVE Negative [facility] Comment:All test results mus t be [...] use by authorized laboratories.Testing performed on the [employer] GeneXpert utilizingreal-time RT-PCR.All SARS CoV2 and positive influenza A/B results arereported to [facility]. 08/07/2025 8:48 AM EDT 08/07/2025 8:51 AM EDT Generic External Data Provider LAB MICROBIOLOGY - GENERAL ORDERABLES Final Result Performing Organization Address City/[facility]/ZIP Co de Phone Number [facility] [address] [place] [phone] * Lipid Panel with Reflex to Direct LDL (01/22/2024 12:20 PM EST) Triglycerides 130 <150 mg/dL [facility] Comment:Desirable Triglyceri de: less than 150 mg/dLBorderline High Triglyceride 150-199 mg/dLHigh Triglyceride: 200-499 mg/dLVery High Triglyceride: greater than or equal to 5OO mg/dL Cholesterol 109 <200 mg/dL [facility] Comment:Desirable Cholestero l: less than 200 mg/dLBorderline High Cholesterol: 200-239 mg/dLHigh Cholesterol: greater than 239 mg/dL LDL Cholesterol Calculated 41 <100 mg/dL [facility] Comment:Desirable LDL: less than 100 mg/dLNear Optimal/Above Optimal LDL: 110- 129 mg/dLBorderline High LDL: 130-159 mg/dLHigh LDL: 160-189 mg/dLVery High LDL: greater than or equal to 190 mg/dL HDL Cholesterol 42 >40 mg/dL [facility] Comment:Desirable HDL: great er than 40 mg/dL Note: This HDL assay may give artificially low results in patients with liver disease. Blood 01/22/2024 12:2 0 PM EST 01/22/2024 1:11 PM EST Myah Singh MD LAB BLOOD ORDERABLES Final Resul t Performing Organization Address City/State/[facility] Co de Phone Number [facility] [address] [place] [phone] * (ABNORMAL) POCT glycosylated hemoglobin (Hgb A1c) (09/11/2023 10:29 AM EDT) Hemoglobin A1C 6.2(A) 4.0 - 6.0 % QC Media Lot # [id number] Lot# Expiration Date Blood Capillary blood specimen / Unknown 09/11/2023 10:29 AM EDT Myah Singh MD POINT OF CARE TEST ENTER/EDIT OR DERABLES Final Result from Last 3 Months or Most Recently Relevant to Health Maintenance Insurance [facility] SKILLED NURSING OPTIONS (O D-SNP) [employer] [id number] Care Teams Cosmetics Machine Operator Relationship Specialty Start Date End Date Myah Singh MD [address] [place] [address] [employer] [id number] PCP - General Family Medicine 11/08/12
--- OUTSIDE RECORDS SUMMARY | 2025-08-30 13:32 | XMS_ITS | Encounter Summary ---
Author Organization [employer] Address [address] [place] [address] Care Team Providers Care Barbed Wire Machine Operator Name Role Phone Tony Arreola MD Primary Care Provider [phone] Encounter Details Date Type Department Care Team (Late st Contact Info) Description 12/06/2024 Lab Requisition [facility] - Main Lab [address] [place] [address] Tony Arreola MD 38 [facility] [address] [place], [address] Weakness; Unspecified dementia, unspecified severity, without [...] mmol/L LAB CHEMISTRY METHOD 12/09/2024 3:[address] [facility] Potassium 4.3 3.5 - 5.5 mmol/L LAB CHEMISTRY METHOD 12/09/2024 3:[address] [facility] Chloride 110 96 - 110 mmol/L LAB CHEMISTRY METHOD 12/09/2024 3:[address] [facility] CO2 28 21 - 32 mmol/L LAB CHEMISTRY METHOD 12/09/2024 3:[address] [facility] Anion Gap 7 3 - 11 LAB CHEMISTRY METHOD 12/09/2024 3:[address] [facility] Glucose 74 70 - 100 mg/dL LAB CHEMISTRY METHOD 12/09/2024 3:[address] [facility] BUN 20 5 - 25 mg/dL LAB CHEMISTRY METHOD 12/09/2024 3:[address] [facility] Creatinine 1.21(H) 0.50 - 1.10 mg/dL LAB CHEMISTRY METHOD 12/09/2024 3:[address] [facility] eGFR 43(L) >=60 mL/min/1. 73m2 LAB CHEMISTRY METHOD 12/09/2024 3:[address] [facility] Comment:Calculation based on the Chronic Kidney Disease Epidemiology Collaboration (CKD-EPI) equation refit without adjustment for race. BUN/Creatinine Ratio 16.5 LAB CHEMISTRY METHOD 12/09/2024 3:[address] [facility] Calcium 9.4 8.5 - 10.5 mg/dL LAB CHEMISTRY METHOD 12/09/2024 3:[address] [facility] Blood Venous blood specimen / Unknown Venipuncture / Unknown 12/09/2024 7:13 AM EST 12/09/2024 11:17 AM EST us Tony Arreola MD LAB BLOOD ORDERABLES Final Resul t [facility] [address] [place] [address], [place] [phone] * (ABNORMAL) Complete blood count (12/09/2024 7:13 AM EST) [facility] WBC 6.9 4.8 - 10.8 K/mcL LAB HEMETOLOGY METHOD 12/09/2024 12:[address] [facility] RBC 4.60 3.80 - 4.80 M/mcL LAB HEMETOLOGY METHOD 12/09/2024 12:[address] [facility] Hemoglobin 13.3 11.5 - 16.0 g/dL LAB HEMETOLOGY METHOD 12/09/2024 12:[address] [facility] Hematocrit 43.5 35.0 - 47.0 % LAB HEMETOLOGY METHOD 12/09/2024 12:[address] [facility] MCV 94.8 79.0 - 98.0 FL LAB HEMETOLOGY METHOD 12/09/2024 12:[address] [facility] MCH 29.0 27.0 - 32.0 pcg LAB HEMETOLOGY METHOD 12/09/2024 12:[address] [facility] MCHC 30.6(L) 32.0 - 37.0 g/dL LAB HEMETOLOGY METHOD 12/09/2024 12:[address] [facility] RDW 14.6 11.0 - 15.0 % LAB HEMETOLOGY METHOD 12/09/2024 12:[address] [facility] Platelets 160 130 - 400 K/mcL LAB HEMETOLOGY METHOD 12/09/2024 12:[address] [facility] MPV 12.2(H) 7.0 - 11.0 FL LAB HEMETOLOGY METHOD 12/09/2024 12:[address] [facility] NRBC 0.0 <1.0 % LAB HEMETOLOGY METHOD 12/09/2024 12:[address] [facility] NRBC Absolute 0.00 <0.10 K/mcL LAB HEMETOLOGY METHOD 12/09/2024 12:37 PM EST [facility] Blood Venous blood specimen / Unknown Venipuncture / Unknown 12/09/2024 7:13 AM EST 12/09/2024 11:17 AM EST us Tony Arreola MD LAB BLOOD ORDERABLES Final Resul t [facility] [address] [place] [address], documented in this encounter Visit Diagnoses Diagnosis Weakness Other malaise and fatigue Unspecified dementia, unspecified severity, without behavioral disturbance, psychotic disturbance, mood disturbance, and anxiety (CMS/HCC V24, CMS/HCC V28) documented in this encounter Care Teams Barbed Wire Machine Operator Relationship Specialty Start Date End Date Tony Arreola MD [address] [place] [address], [phone] PCP - General Family Medicine 12/14/24 documented as of this encounter
--- OUTSIDE RECORDS SUMMARY | 2025-08-30 13:32 | XMS_ITS | Encounter Summary ---
Author Organization [employer] Address [address] [facility] 7[address] [place] [address] Care Team Providers Care Structural Steel Worker Helper Name Role Phone Myah Singh MD Primary Care Provider [phone] Encounter Details Date Type Department Care Team (Late st Contact Info) Description 01/30/2023 Telephone [facility] MEDICINE [address] [place], [place] [phone] Myah Singh MD [address] [place], [place] [phone] Social History Tobacco Use Types Packs/Day Years [...] on filedocumented in this encounter Care Teams Structural Steel Worker Helper Relationship Specialty Start Date End Date Myah Singh MD [address] [place], [place] [phone] PCP - General Family Medicine 11/08/12 [facility] 12/31/24 07/29/25 documented as of this encounter
--- OUTSIDE RECORDS SUMMARY | 2025-08-30 13:32 | XMS_ITS | Encounter Summary ---
Author Organization [employer] Address [address] [place] [address] Care Team Providers Care Hem Marker Name Role Phone Tony Arreola MD Primary Care Provider [phone] Encounter Details Date Type Department Care Team (Late st Contact Info) Description 12/28/2024 Lab Requisition [facility] - Main Lab [address] [facility] [place] [address] Tony Arreola MD 38 [facility] [address] [place], [phone] Weakness; Unspecified dementia, unspecified severity, without [...] V28) documented in this encounter Care Teams Hem Marker Relationship Specialty Start Date End Date Tony Arreola MD 38 [facility] [address] [place], [phone] PCP - General Family Medicine 12/14/24 documented as of this encounter
--- OUTSIDE RECORDS SUMMARY | 2025-08-30 13:32 | XMS_ITS | Encounter Summary ---
Author Organization [facility] Address [address] [facility] [address] [place] [address] Phone Care Team Providers Care Resource Center Teacher Name Role Phone Unavailable Primary Care Provider Unavailabl e Reason for Visit * Reason Comments Med Refill Encounter Details Date Type Department Care Team ([facility] st Contact Info) Description 12/10/2021 Refill [facility] [address] [facility] [address] [place] [phone] Chino Martinez MD [address] [facility] 204 [place] [phone] Social History Tobacco Use Types Packs/Day Years [...]
--- OUTSIDE RECORDS SUMMARY | 2025-08-30 13:32 | XMS_ITS | Encounter Summary ---
Author Organization [employer] Address [address] [facility] 7t [place] [address] Care Team Providers Care Renovation Plant Supervisor Name Role Phone Myah Singh MD Primary Care Provider [phone] Reason for Visit * Reason Comments Med Refill Encounter Details Date Type Department Care Team (Late st Contact Info) Description 10/22/2024 Refill [facility] MEDICINE [address] [place], [place] [phone] Myah Singh MD [address] [place], [place] [phone] Allergic rhinitis, unspecified seasonality, unspecified trigger Social [...] documented as of this encounter Care Teams Renovation Plant Supervisor Relationship Specialty Start Date End Date Myah Singh MD [address] [place] [address] PCP - General Family Medicine 11/08/12 [facility] 12/31/24 07/29/25 documented as of this encounter
--- OUTSIDE RECORDS SUMMARY | 2025-08-30 13:32 | XMS_ITS | Encounter Summary ---
Author Organization [employer] Address [address] [place] [address] Care Team Providers Care Office Sweeper Name Role Phone Tony Arreola MD Primary Care Provider [phone] Encounter Details Date Type Department Care Team (Late st Contact Info) Description 12/21/2024 Lab Requisition [facility] - Main Lab [address] [place] [address] Tony Arreola MD [address] [place] [address] [address] [place], [address] Weakness; Unspecified dementia, unspecified severity, without [...] mmol/L LAB CHEMISTRY METHOD 12/23/2024 12:53 PM [facility] Potassium 4.2 3.5 - 5.5 mmol/L LAB CHEMISTRY METHOD 12/23/2024 12:53 PM [facility] Chloride 111(H) 96 - 110 mmol/L LAB CHEMISTRY METHOD 12/23/2024 12:53 PM [facility] CO2 28 21 - 32 mmol/L LAB CHEMISTRY METHOD 12/23/2024 12:53 PM [facility] Anion Gap 5 3 - 11 LAB CHEMISTRY METHOD 12/23/2024 12:53 PM [facility] Glucose 84 70 - 100 mg/dL LAB CHEMISTRY METHOD 12/23/2024 12:53 PM [facility] BUN 22 5 - 25 mg/dL LAB CHEMISTRY METHOD 12/23/2024 12:53 PM [facility] Creatinine 1.25(H) 0.50 - 1.10 mg/dL LAB CHEMISTRY METHOD 12/23/2024 12:53 PM [facility] eGFR 42(L) >=60 mL/min/1. 73m2 LAB CHEMISTRY METHOD 12/23/2024 12:53 PM [facility] Comment:Calculation based on the Chronic Kidney Disease Epidemiology Collaboration (CKD-EPI) equation refit without adjustment for race. BUN/Creatinine Ratio 17.6 LAB CHEMISTRY METHOD 12/23/2024 12:53 PM [facility] Calcium 9.3 8.5 - 10.5 mg/dL LAB CHEMISTRY METHOD 12/23/2024 12:53 PM [facility] Blood Venous blood specimen / Unknown Venipuncture / Unknown 12/23/2024 6:50 AM EST 12/23/2024 10:55 AM EST us Tnoy Arreola MD LAB BLOOD ORDERABLES Final Resul t [facility] [address] [place] [address], * (ABNORMAL) Complete blood count (12/23/2024 6:50 AM EST) [facility] WBC 6.0 4.8 - 10.8 K/mcL LAB HEMETOLOGY METHOD 12/23/2024 12:49 PM [facility] RBC 4.70 3.80 - 4.80 M/mcL LAB HEMETOLOGY METHOD 12/23/2024 12:49 PM [facility] Hemoglobin 13.4 11.5 - 16.0 g/dL LAB HEMETOLOGY METHOD 12/23/2024 12:49 PM [facility] Hematocrit 43.6 35.0 - 47.0 % LAB HEMETOLOGY METHOD 12/23/2024 12:49 PM [facility] MCV 93.6 79.0 - 98.0 FL LAB HEMETOLOGY METHOD 12/23/2024 12:49 PM [facility] MCH 28.8 27.0 - 32.0 pcg LAB HEMETOLOGY METHOD 12/23/2024 12:49 PM [facility] MCHC 30.7(L) 32.0 - 37.0 g/dL LAB HEMETOLOGY METHOD 12/23/2024 12:49 PM [facility] RDW 14.8 11.0 - 15.0 % LAB HEMETOLOGY METHOD 12/23/2024 12:49 PM [facility] Platelets 142 130 - 400 K/mcL LAB HEMETOLOGY METHOD 12/23/2024 12:49 PM [facility] MPV 12.0(H) 7.0 - 11.0 FL LAB HEMETOLOGY METHOD 12/23/2024 12:49 PM [facility] NRBC 0.0 <1.0 % LAB HEMETOLOGY METHOD 12/23/2024 12:49 PM [facility] NRBC Absolute 0.00 <0.10 K/mcL LAB HEMETOLOGY METHOD 12/23/2024 12:49 PM EST [facility] Blood Venous blood specimen / Unknown Venipuncture / Unknown 12/23/2024 6:50 AM EST 12/23/2024 10:55 AM EST Tony Arreola MD LAB BLOOD ORDERABLES Final Resul t [facility] [address] [place] [address], documented in this encounter Visit Diagnoses Diagnosis Weakness Other malaise and fatigue Unspecified dementia, unspecified severity, without behavioral disturbance, psychotic disturbance, mood disturbance, and anxiety (CMS/HCC V24, CMS/HCC V28) documented in this encounter Care Teams Office Sweeper Relationship Specialty Start Date End Date Tony Arreola MD [address] [place] [address], [phone] PCP - General Family Medicine 12/14/24 documented as of this encounter
--- OUTSIDE RECORDS SUMMARY | 2025-08-30 13:32 | XMS_ITS | Encounter Summary ---
Author Organization [employer] Address [address] [place] [address] Care Team Providers Care Operational Meteorologist Name Role Phone Tony Arreola MD Primary Care Provider [phone] Encounter Details Date Type Department Care Team (Late st Contact Info) Description 11/29/2024 Lab Requisition [facility] - Main Lab [address] [place] [address] Tony Arreola MD 38 [facility] [address] [place], [address] Weakness; Unspecified dementia, unspecified severity, without [...] MD LAB BLOOD ORDERABLES Final Resul t [facility] [address] [place] [address], * (ABNORMAL) Complete blood count (12/02/2024 7:21 AM EST) [facility] WBC 6.8 4.8 - 10.8 K/mcL [...] LAB HEMETOLOGY METHOD 12/02/2024 10:57 AM EST [facility] Blood Venous blood specimen / Unknown Venipuncture / Unknown 12/02/2024 7:21 AM EST 12/02/2024 10:33 AM EST us Tony Arreola MD LAB BLOOD ORDERABLES Final Resul t [facility] [address] [place] [address], documented in this encounter Visit Diagnoses Diagnosis Weakness Other malaise and fatigue Unspecified dementia, unspecified severity, without behavioral disturbance, psychotic disturbance, mood disturbance, and anxiety (CMS/HCC V24, CMS/HCC V28) documented in this encounter Care Teams Operational Meteorologist Relationship Specialty Start Date End Date Tony Arreola MD [address] [place] [address] [address] [place], [phone] PCP - General Family Medicine 12/14/24 documented as of this encounter
--- OUTSIDE RECORDS SUMMARY | 2025-08-30 13:32 | XMS_ITS | Encounter Summary ---
Author Organization [employer] Address [address] [facility] 7t [place] [address] Care Team Providers Care Architectural Representative Name Role Phone Myah Singh MD Primary Care Provider [phone] Encounter Details Date Type Department Care Team ([facility] st Contact Info) Description 03/26/2025 Telephone [facility] MEDICINE [address] [place], [place] [phone] Myah Singh MD [address] [place], [place] [phone] Social History Tobacco Use Types Packs/Day Years [...] documented as of this encounter Care Teams Architectural Representative Relationship Specialty Start Date End Date Myah Singh MD [address] [place] [phone] PCP - General Family Medicine 11/08/12 [facility] 12/31/24 07/29/25 documented as of this encounter
[2025-08-30 13:57] LABS: Alanine Aminotransferase 10 U/L (0-31); Albumin Level 3.5 g/dL (3.5-5.0); Alkaline Phosphatase 113 U/L (39-117); Anion Gap 10 (12-20); Aspartate Amino Transferase 22 U/L (5-31); Blood Urea Nitrogen 20 mg/dL (9-16); Calcium 9.7 mg/dL (8.4-10.2); Carbon Dioxide 28 mmol/L (22-29); Chloride 109 mmol/L (96-108); Estimated Glomerular Filt Rate 47; Potassium 3.7 mmol/L (3.3-5.1); Sodium 143 mmol/L (135-145); Total Protein 6.7 g/dL (6.5-8.0)
== END 2025-08-30 13:29 | disposition home or self-care (01) ==
LOC: HO.MMNH2L 13:28
PROVIDERS: Visit Provider Family Medicine
DX: Z13.89 Encounter for screening for other disorder (principal)
CPT/HCPCS: 36415; 80053

== ENCOUNTER 2025-09-09 08:29 | Outpatient (REF) | payer OTHER, SELFPAY ==
--- NOTE | ~2025-09-09 | XR_ITS ---
EXAMINATION: XR WRIST, RIGHT CLINICAL INFORMATION: M25.531 - Pain in right wrist COMPARISON: 08/13/2025 TECHNIQUE: PA, lateral, and oblique views of the right wrist. FINDINGS: Splint has been removed. Fracture line is more apparent on the current study probably related to removal of the splint. There is a fracture transversely across the distal radius into the distal radioulnar joint, and also extending into the distal radial articular surface. XR/XR wrist RT min 3V IMPRESSION: Fracture line is more apparent on the current x-ray after removal of overlying fiberglass splint. Electronically signed by: Schuyler Saenz MD 09/09/2025 12:55 PM EDT RP
== END 2025-09-09 08:30 | disposition home or self-care (01) ==
LOC: HO.HOSX 08:29
PROVIDERS: Visit Provider Orthopaedic Surgery
DX: S52.571D Other intraarticular fracture of lower end of right radius, subsequent encounter for closed fracture with routine healing (principal); W06.XXXD Fall from bed, subsequent encounter; R20.0 Anesthesia of skin; E11.9 Type 2 diabetes mellitus without complications; R29.6 Repeated falls; G30.9 Alzheimer's disease, unspecified; F02.80 Dementia in other diseases classified elsewhere, unspecified severity, without behavioral disturbance, psychotic disturbance, mood disturbance, and anxiety
CPT/HCPCS: 73110; 99212

== ENCOUNTER 2025-09-09 11:06 | Outpatient (AMB) | payer OTHER, SELFPAY ==
--- NOTE | 2025-09-09 11:28 | A.OFFVIS_ITS ---
Intake Visit Reasons: FU-Closed fracture of right wrist Intake Note: Sienna 89 yr old right hand dominant female presents today with her grand daughter Elena who is also her proxy, for a follow up visit for her right distal radius fracture. On 08/06 while in the ED patient had fallen out of bed and injured her hand. At her last visit with Dr. Madsen, patient was placed in a short arm cast, advise to use new walker for ambulation with forearm support. Today cast was removed and xrays updated in office. Patient presented in a wheel chair alone with no coat. It appears her cast was not properly on, as he cast was pulled up covering her fingers. Her skin looks macerated upon removal of cast, inside material was damp. Patient reports that her hand is bothersome. Currently resides at [facility]. Machine Joint Cutter Services: Machine Joint Cutter Offered & Declined Accompanied by: Grand Child Allergies ceftazidime (Ceftazidime) Allergy (Mild, Verified 09/09/25 11:39) UNKNOWN benzocaine (Benzocaine) Allergy (Unknown, Verified 09/09/25 11:39) UNKNOWN butamben (From Cetacaine) Allergy (Unknown, Verified 09/09/25 11:39) UNKNOWN metoclopramide (From Reglan) Allergy (Unknown, Verified 09/09/25 11:39) UNKNOWN morphine (Morphine) Allergy (Unknown, Verified 09/09/25 11:39) SWELLING tetracaine (From Cetacaine) Allergy (Unknown, Verified 09/09/25 11:39) UNKNOWN HPI HPI FU-Closed fracture of right wrist: Details: Sienna is an 89 year old right hand dominant Diabetic Uzbek speaking woman, here with her granddaughter, for a right distal radius fracture. She reportedly fell while in the ED for a UTI, DOI: 08/06/25. This was reduced in the ED. She has Dementia & her granddaughter is here as her medical proxy. She says she has some discomfort in her right wrist. Her granddaughter says her ordered forearm bearing walker was not approved by her insurance plan, and she is not able to walk without assistance. She currently resides in [facility], a correction facility. Of note, she presented today with a very wet cast, wet padding underneath, and her skin underneath was macerated. Her cast had shifted distally by ~3 inches. It is unclear when this occurred. Her granddaughter last saw her on 09/03/25 and says her cast appeared unmoved & dry at the time. She was also brought in late for her appointment, in a wheelchair. She was without a jacket on this cool morning, and was left in the waiting room without her granddaughter initially. We retrieved a blanket from the ED for her to use. She has Dementia, Alzheimer's, Hx of falls, aortic stenosis, Hx of CVA, & Diabetes. [facility] Medical History (Updated 08/19/25 @ 14:44 by Darien Estevez MD) Sepsis Cirrhosis of liver DONAVAN (obstructive sleep apnea) Diabetes Allergic dermatitis Hives CVA (cerebral vascular accident) Non-alcoholic micronodular cirrhosis of liver CKD (chronic kidney disease) Dementia Hypertension Surgical History Hx of cholecystectomy No pertinent past surgical history Family History Father No problems noted. Mother No problems noted. Social History Household Members: Unknown / Unable to assess Housing: Unknown / Unable to assess Do you presently have visiting nurse or other home services: No Alcohol intake: current Alcohol intake frequency: does not drink Patient Tobacco Use Status: Former Tobacco user Second Hand Smoke Exposure: No Advance Directives Date on File: 12/07/21 service: No Physical Exam Extrem Other: Evaluation of Right Upper Extremity: The patient is alert, oriented, and in no acute distress Of note, she presented today with a very wet cast, wet padding underneath, and her skin underneath was macerated. Her cast had shifted distally by ~3 inches, with the distal edge out at the DIP joint level and no longer at the mid-palmar crease. It is unclear when this occurred. Her daughter last saw her on 09/03/25 and says her cast appeared unmoved & dry at the time. Neuro: Decreased sensation to the fingertips of the right hand, compared to her left Vascular: Cap refill brisk ROM: Not assessed today General: No Erythema or evidence of infection. Swelling and ecchymosis have resolved. Very mild tenderness over the fracture site Radiographs: 3 views of the right wrist were taken and viewed by me today in clinic. They show a comminuted intra-articular distal radius fracture with some loss of inclination and some evidence of interval bony healing. She has some increased displacement compared to prior radiographs Radiographs from 08/07/25, lateral view shows a reduction to ~5 degrees apex volar angulation. Assessment & Plan Assessment & Plan (1) Fracture of right distal radius: Code(s): S52.501A - Unspecified fracture of the lower end of right radius, initial encounter for closed fracture Category: Medical (2) Numbness of right hand: Code(s): R20.0 - Anesthesia of skin Category: Medical (3) Diabetes: Code(s): E11.9 - Type 2 diabetes mellitus without complications Category: Medical (4) Dementia: Code(s): F03.90 - Unspecified dementia, unspecified severity, without behavioral disturbance, psychotic disturbance, mood disturbance, and anxiety Category: Medical (5) Falls frequently: Code(s): R29.6 - Repeated falls Category: Medical Plan Assessment & Plan: 1. Right distal radius fracture, From a fall, DOI: 08/06/25 Reduced in ED: 08/06/25 3. Right hand numbness Possible carpal tunnel syndrome, no NCS completed I educated her & her granddaughter about this condition. Her granddaughter is very unhappy today and says she is seriously considering removing the patient from her current facility, either to a different facility or to her home. Of note, she presented today with a very wet cast, wet padding underneath, and her skin underneath was macerated. Her cast had shifted distally by ~3 inches. It is unclear when this occurred. Her daughter last saw her on 09/03/25 and says her cast appeared unmoved & dry at the time. She was also brought in late for her appointment, in a wheelchair. She was without a jacket and was left in the waiting room without her granddaughter initially. I discussed operative and non-operative treatment options. She may benefit from a carpal tunnel release at a later date We will manage this conservatively, and she is in agreement She was fitted for a velcro wrist splint, to be worn like a cast except for bathing, for the next 4 weeks. I discussed activity modifications, she is to lift nothing heavier than a cellphone for the next 4 weeks. She also needs help to remember not to push off or bear weight through her hand or wrist. She is able to use this had for very lightweight activities such as feeding herself or brushing her teeth She will perform gentle finger ROM exercises at home, while in her splint Her previously ordered forearm bearing walker was evidently not approved by her insurance plan, and it is unclear if she has been able to do any PT at all while at [facility]. Again numerous reminders need to be made so that she does not push off or weight bear through her right hand or wrist. Blanka, who is substituting for Bhavna our staff mine warfare officer, is going to look into the forearm bearing walker and see what can do to help it get approved. She will follow up in 4 weeks, with X-rays, 3V R wrist, OOP Scribed for Shahida Madsen MD by Santos Aparicio, medical insurance claims processor, on 09/09/25 at 11:40 AM, EST. Orders: Orders 2 XR wrist RT min 3V Today M25.531 - Pain in right wrist Coding Level of Care Code Global (36448) Diagnoses Fracture of right distal radius S52.501A Numbness of right hand R20.0 Diabetes E11.9 Dementia F03.90 Falls frequently R29.6
--- OUTSIDE RECORDS SUMMARY | 2025-09-09 13:25 | XMS_ITS | Encounter Summary ---
Author Organization [employer] Address [address] [place] [address] Care Team Providers Care Entrepreneurial Finance Professor Name Role Phone Tony Arreola MD Primary Care Provider [phone] Encounter Details Date Type Department Care Team (Late st Contact Info) Description 12/21/2024 Lab Requisition [facility] - Main Lab [address] [place] [address] Tony Arreola MD 38 [facility] [address] [place], [phone] Weakness; Unspecified dementia, unspecified severity, without [...] [facility] [address] [place] [address], * (ABNORMAL) Complete blood count (12/23/2024 6:50 AM EST) [facility] WBC 6.0 4.8 - 10.8 [...] LAB HEMETOLOGY METHOD 12/23/2024 12:49 PM EST [facility] Blood Venous blood specimen / Unknown Venipuncture / Unknown 12/23/2024 6:50 AM EST 12/23/2024 10:55 AM EST Tony Arreola MD LAB BLOOD ORDERABLES Final Resul t [facility] [address] [place] [address], documented in this encounter Visit Diagnoses Diagnosis Weakness Other malaise and fatigue Unspecified dementia, unspecified severity, without behavioral disturbance, psychotic disturbance, mood disturbance, and anxiety (CMS/HCC V24, CMS/HCC V28) documented in this encounter Care Teams Entrepreneurial Finance Professor Relationship Specialty Start Date End Date Tony Arreola MD [address] [place] [address], [phone] PCP - General Family Medicine 12/14/24 documented as of this encounter
--- OUTSIDE RECORDS SUMMARY | 2025-09-09 13:25 | XMS_ITS | Encounter Summary ---
Author Organization [employer] Address [address] [place] [address] Care Team Providers Care Nurse Tech Name Role Phone Tony Arreola MD Primary Care Provider [phone] Encounter Details Date Type Department Care Team (Late st Contact Info) Description 12/06/2024 Lab Requisition [facility] - Main Lab [address] [place] [address] Tony Arreola MD 38 [facility] [address] [place], [phone] Weakness; Unspecified dementia, unspecified severity, without [...] mmol/L LAB CHEMISTRY METHOD 12/09/2024 3:01 PM [facility] Potassium 4.3 3.5 - 5.5 mmol/L LAB CHEMISTRY METHOD 12/09/2024 3:01 PM [facility] Chloride 110 96 - 110 mmol/L LAB CHEMISTRY METHOD 12/09/2024 3:01 PM [facility] CO2 28 21 - 32 mmol/L LAB CHEMISTRY METHOD 12/09/2024 3:01 PM [facility] Anion Gap 7 3 - 11 LAB CHEMISTRY METHOD 12/09/2024 3:01 PM [facility] Glucose 74 70 - 100 mg/dL LAB CHEMISTRY METHOD 12/09/2024 3:01 PM [facility] BUN 20 5 - 25 mg/dL LAB CHEMISTRY METHOD 12/09/2024 3:01 PM [facility] Creatinine 1.21(H) 0.50 - 1.10 mg/dL LAB CHEMISTRY METHOD 12/09/2024 3:01 PM [facility] eGFR 43(L) >=60 mL/min/1. 73m2 LAB CHEMISTRY METHOD 12/09/2024 3:01 PM [facility] Comment:Calculation based on the Chronic Kidney Disease Epidemiology Collaboration (CKD-EPI) equation refit without adjustment for race. BUN/Creatinine Ratio 16.5 LAB CHEMISTRY METHOD 12/09/2024 3:01 PM [facility] Calcium 9.4 8.5 - 10.5 mg/dL LAB CHEMISTRY METHOD 12/09/2024 3:01 PM [facility] Blood Venous blood specimen / Unknown Venipuncture / Unknown 12/09/2024 7:13 AM EST 12/09/2024 11:17 AM EST us Tony Arreola MD LAB BLOOD ORDERABLES Final Resul t [facility] [address] [place] [address], [place] [phone] * (ABNORMAL) Complete blood count (12/09/2024 7:13 AM EST) [facility] Signature WBC 6.9 4.8 - 10.8 K/mcL LAB HEMETOLOGY METHOD 12/09/2024 12:37 PM [facility] RBC 4.60 3.80 - 4.80 M/mcL LAB HEMETOLOGY METHOD 12/09/2024 12:37 PM [facility] Hemoglobin 13.3 11.5 - 16.0 g/dL LAB HEMETOLOGY METHOD 12/09/2024 12:37 PM [facility] Hematocrit 43.5 35.0 - 47.0 % LAB HEMETOLOGY METHOD 12/09/2024 12:37 PM [facility] MCV 94.8 79.0 - 98.0 FL LAB HEMETOLOGY METHOD 12/09/2024 12:37 PM [facility] MCH 29.0 27.0 - 32.0 pcg LAB HEMETOLOGY METHOD 12/09/2024 12:37 PM [facility] MCHC 30.6(L) 32.0 - 37.0 g/dL LAB HEMETOLOGY METHOD 12/09/2024 12:37 PM [facility] RDW 14.6 11.0 - 15.0 % LAB HEMETOLOGY METHOD 12/09/2024 12:37 PM [facility] Platelets 160 130 - 400 K/mcL LAB HEMETOLOGY METHOD 12/09/2024 12:37 PM [facility] MPV 12.2(H) 7.0 - 11.0 FL LAB HEMETOLOGY METHOD 12/09/2024 12:37 PM [facility] NRBC 0.0 <1.0 % LAB HEMETOLOGY METHOD 12/09/2024 12:37 PM [facility] NRBC Absolute 0.00 <0.10 K/mcL LAB HEMETOLOGY METHOD 12/09/2024 12:37 PM EST [facility] Blood Venous blood specimen / Unknown Venipuncture / Unknown 12/09/2024 7:13 AM EST 12/09/2024 11:17 AM EST us Tony Arreola MD LAB BLOOD ORDERABLES Final Resul t [facility] [address] [place] [address], documented in this encounter Visit Diagnoses Diagnosis Weakness Other malaise and fatigue Unspecified dementia, unspecified severity, without behavioral disturbance, psychotic disturbance, mood disturbance, and anxiety (CMS/HCC V24, CMS/HCC V28) documented in this encounter Care Teams Nurse Tech Relationship Specialty Start Date End Date Tony Arreola MD [address] [place] [address], [phone] PCP - General Family Medicine 12/14/24 documented as of this encounter
--- OUTSIDE RECORDS SUMMARY | 2025-09-09 13:25 | XMS_ITS | Encounter Summary ---
Author Organization [employer] Address [address] [place] [address] [address] [place] [address] Care Team Providers Care Sponge Buffer Name Role Phone Myah Singh MD Primary Care Provider [phone] Reason for Visit * Reason Onset Date Comments Durable Medical Equipment 01/30/2023 Encounter Details Date Type Department Care Team (Late st Contact Info) Description 01/30/2023 Telephone [facility] [address] [place], [place] [phone] Myah Singh MD [address] [place], [place] [phone] Durable Medical Equipment Social History Tobacco Use [...] call me or CHACE Beltran also patient LOAD CHECKER can call them as they are the vendor for more information [phone] * Telephone Encounter - Uriahrociorashel Rodriguezmahad Marion - 01/30/2023 10:00 AM EST Tc from pt LOAD CHECKER Jonathan stating that for the last two months pt Large Pull ups and Wipes have not been deliver Please contact jonathan at [phone] documented in this encounter Plan of Treatment Not on file documented as of this encounter Visit Diagnoses Not on filedocumented in this encounter Care Teams Sponge Buffer Relationship Specialty Start Date End Date Myah Singh MD [address] [place] [address] PCP - General Family Medicine 11/08/12 [facility] 12/31/24 07/29/25 documented as of this encounter
--- OUTSIDE RECORDS SUMMARY | 2025-09-09 13:25 | XMS_ITS | Clinical Summary ---
Author Organization [employer] Address [address] [facility] 7t [place] [address] Care Team Providers Care Information Services Manager Name Role Phone Myah Singh MD Primary Care Provider [phone] Allergies Active Allergy Reactions Criticality Noted Date [...] unspecified whether stage 3a or 3b CKD ([facility]) TEST BLOOD SUGAR DAILY AND NEEDED 100 each 10 08/05/20 25 Active cetirizine (ZyrTEC) 5 MG tablet TAKE 1 TABLET (5 MG) BY MOUTH IN THE MORNING. 30 tablet 1 08/11/20 25 Active cetirizine (ZyrTEC) 5 MG tablet [...] 2009 previous medical record -TIA in 2014 - working on secondary prevention / risk factor management Assessment & Plan (01/07/2023 4:35 PM EST): -around 2009 previous medical record -TIA in 2015 -Continue working on secondary prevention / risk factor management History of non-ST elevation myocardial infarctio n (NSTEMI) 01/07/2023 Assessment & Plan (09/10/2023 4:34 PM EDT): -Oct 2015 -Previously following with [facility] Cardiology, upcoming appt -Continue risk factor mangement Assessment & Plan (01/07/2023 4:34 PM EST): -Oct 2015 -Previously following with [facility] Cardiology, upcoming appt -Continue risk [...] cm2. Mild aortic valve regurgitation. -Seen by high pressure cleaner, Dr. Garcia in [facility], on 07/27/23, since she is [...] cm2. Mild aortic valve regurgitation. -Seen by high pressure cleaner, Dr. Garcia in [facility], on 07/27/23, since she is [...] cm2. Mild aortic valve regurgitation. -Seen by high pressure cleaner, Dr. Garcia in [facility], on 07/27/23, since she is [...] consistent with aortic stenosis -NSTEMI in 2015 -Pt has an upcoming appt with her high pressure cleaner Assessment & Plan (01/07/2023 5:17 PM EST): - Most recent TTE 10/14/22: There is mild calcification of the aortic valve. There is moderate aortic valve stenosis. The peak aortic gradient is 33 mmHg.The mean gradient is 16 mmHg. There is mild aortic valve regurgitation. -Pt has loud murmur consistent with aortic stenosis -NSTEMI in 2014 -Pt has an upcoming appt with her high pressure cleaner Anemia 01/07/2023 Assessment & Plan (01/07/2023 5:24 PM EST): - anemia of chronic disease (CKD, cirrhosis) - continue ferrous sulfate - check lab Diabetes mellitus, type 2 12/28/2022 Overview (04/07/2025): Frequent utis from jardiance Assessment & Plan (05/06/2025 11:29 AM EDT): Blood sugars are in range (90-110)without jardance, pt grandaughter and BINDER COVERSTITCH deny any swelling, sob, orthopnea edema or [...] Plan (01/17/2025 5:56 AM EST): -Following with [facility] Sleep medicine clinic, last seen [...] 05/21/2015 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 Thrombocytopenia 03/27/2013 Assessment & Plan (01/17/2025 6:10 AM EST): - in a setting of cirrhosis, compensated - monitor periodically Osteopenia 01/07/2013 Anxiety 12/10/2012 Dementia ([facility]/HCC) 12/10/2012 Assessment & Plan (01/17/2025 5:58 AM EST): -multifactorial: Alzeheimer's; Hx CVA and TIA; hx COVID; depression / anxiety -following with Dr. Estevez, neurologist, last seen in Dec 2021, and psychiatrist Dr. Diaz -continue current medications prescribed by both neurologist and psychiatrist -it seems like patient was seeing psychiatrist while staying in the [facility] -work on risk factor management -reviewed safety [...] Risk: CKD, age, NSTEMI, Hx CVA/TIA, DM2 -Repairer Recreational Vehicle: Previously [facility], pt has a new appt [...] Risk: CKD, age, NSTEMI, Hx CVA/TIA, DM2 -Repairer Recreational Vehicle: [facility] [...] Risk: CKD, age, NSTEMI, Hx CVA/TIA, DM2 -Repairer Recreational Vehicle: [facility] on [...] Risk: CKD, age, NSTEMI, Hx CVA/TIA, DM2 -Repairer Recreational Vehicle: Previously [facility] pt has a new appt [...] Risk: CKD, age, NSTEMI, Hx CVA/TIA, DM2 -Repairer Recreational Vehicle: Previously [facility], pt has a new appt [...] - Followed by [facility], last seen in Jun 2024 - [...] - Followed by [facility], last seen in November 2023 - [...] - Followed by [facility], last seen on 05/31/23. - Continue mirabegron as prescribed, advised to have drug holiday from mirabegron, resume when pt's symptoms worsen Assessment & Plan (05/08/2023 11:04 AM EDT): - in a setting of dementia, DM2, and SGLT-2 inhibitor use - Followed by Dr. Vallecillo, [facility] - Continue mirabegron as prescribed Assessment & Plan (01/07/2023 4:51 PM EST): - in a setting of dementia, DM2, and SGLT-2 inhibitor use - Followed by Dr. Vallecillo, [facility] - Continue mirabegron as prescribed Recurrent [...] SGLT-2 inhibitor Stage 3 chronic kidney disease (CMS/HCC) 013 Assessment & Plan (05/06/2025 11:30 AM EDT): Monitor as jardiance was discontinued to due frequent complicated utis requiring rehab stays which contribute to deconditioning, Assessment & Plan (01/17/2025 6:08 AM EST): -Joinery Patternmaker: Dr. Martinez -Avoid nephrotoxic drugs and use renal dosing. -Recheck renal function today -On Jardiance, at low-dose, 10mg daily. Caution with UTI Assessment & Plan (02/04/2024 1:13 PM EDT): -Joinery Patternmaker: Dr. Martinez -Baseline: 09/26/22 BUN 29; SCr 1.2, eGFR 43, AST 12, ALT 19, AP 91 -Avoid nephrotoxic drugs and use renal dosing. -Recheck renal function today -On Jardiance, at low-dose, 10mg daily. Assessment & Plan (09/10/2023 4:32 PM EDT): -Joinery Patternmaker: Dr. Martinez, last seen in 2016 or 2018. Per caregiver, pt was discharged due to stability -Baseline: 09/26/22 BUN 29; SCr 1.2, eGFR 43, AST 12, ALT 19, AP 91 -Avoid nephrotoxic drugs and use renal dosing. -Recheck renal function today -On Jardiance, at low-dose, 10mg daily. Assessment & Plan (05/08/2023 11:04 AM EDT): -Joinery Patternmaker: Dr. Martinez, last seen in 2017 or 2018. Per caregiver, pt was discharged due to stability -Baseline: 09/26/22 BUN 29; SCr 1.2, eGFR 43, AST 12, ALT 19, AP 91 -Avoid nephrotoxic drugs and use renal dosing. -Recheck renal function today -On Jardiance, at low-dose, 10mg daily. Assessment & Plan (01/07/2023 4:54 PM EST): -Joinery Patternmaker: Dr. Martinez, last seen in 2017 or [...] Type Department Care Team Description 08/09/2025 Refill [facility] [address] [place] [address] Myah Singh MD 08/07/2025 Orders Only GENERIC EXTERNAL DATA DEPARTMENT Provider, Generic External Data 08/04/2025 Refill [facility] [address] [place] [address] Myah Singh MD Type 2 diabetes mellitus with stage 3 chronic kidney disease, without long-term current use of insulin, unspecified whether stage 3a or 3b CKD ([facility]) 07/21/2025 Refill [facility] [address] [place], [place] [phone] Liliana Sears MD 07/21/2025 Refill [facility] [address] [place], [place] [phone] Myah Singh MD Allergic rhinitis, unspecified seasonality, unspecified trigger 07/10/2025 Telephone [facility] [address] [place], [place] [phone] Myah Singh MD Durable Medical Equipment (DME: [...] Screening 05/08/2024 05/08/2023 Lipid Panel 01/22/2025 01/22/2024, 020 12/2022, 12/28/2021 COVID-19 Vaccine ( season) 2025 01/22/2024, 10/03/2022, 10/03/2022, Additional history exists Influenza Vaccine (#1) 2025 , 09/11/2023, 10/03/2022, Additional history exists Diabetes: Hemoglobin A1C 08/26/2025 025, 09/11/2023, 12/29/2022, Additional history exists Tobacco Screening 01/17/2026 01/17/2025 DTaP/Tdap/Td Vaccines (3 - Td or Tdap) 12/29/2032 12/29/2022, 12/10/2012 Pneumococcal Vaccine: 50+ Years Completed 02/23/2015, 10/04/2001 Zoster Vaccines Completed 12/28/2021, 02/0 11/2021, 09/22/2021, Additional history exists HIB Vaccines [...] unspecified whether stage 3a or 3b CKD ([facility]/HCC) Dyslipidemia POCT GLYCOSYLATED HEMOGLOBIN (HGB A1C) Routine 09/11/2023 10:29 AM EDT Type 2 diabetes mellitus with stage 3 chronic kidney disease, without long-term current use of insulin, unspecified whether stage 3a or 3b CKD ([facility]/HCC) from Last 3 Months or Most Recently Relevant to Health Maintenance Results * Glucose, Whole Blood (08/07/2025 12:20 PM EDT) Glucose, Whole Blood 90 60 - 115 mg/dL [facility] Comment:METER #: [id number] 08/07/2025 12:2 0 PM EDT 08/07/2025 4:35 PM EDT us Generic External Data Provider LAB BLOOD ORDERAB LES Final Result [facility] [address] [place] [phone] * SARS-CoV-2 RNA, Influenza A/B, and RSV RNA, Ql NAAT (08/07/2025 8:48 AM EDT) Influenza A PCR NEGATIVE Negative [facility] Influenza B PCR NEGATIVE Negative [facility] Resp Syncy Virus RNA Qual PCR NEGATIVE Negative [facility] SARS COV2 PCR NEGATIVE Negative [facility] Comment:All test results mus t be [...] use by authorized laboratories.Testing performed on the [employer] GeneXpert utilizingreal-time RT-PCR.All SARS CoV2 and positive influenza A/B results arereported to [facility]. 08/07/2025 8:48 AM EDT 08/07/2025 8:51 AM EDT us Generic External Data Provider LAB MICROBIOLOGY - GENERAL ORDERABLES Final Result [facility] [address] [place] [phone] * Lipid Panel with Reflex to Direct LDL (01/22/2024 12:20 PM EST) Triglycerides 130 <150 mg/dL [facility] Comment:Desirable Triglyceri de: less than [...] 190 mg/dL HDL Cholesterol 42 >40 mg/dL [facility] Comment:Desirable HDL: great er than 40 mg/dL Note: This HDL assay may give artificially low results in patients with liver disease. Blood 01/22/2024 12:2 0 PM EST 01/22/2024 1:11 PM EST Myah Singh MD LAB BLOOD ORDERABLES Final Resul t [facility] [address] [place] [phone] * (ABNORMAL) POCT glycosylated hemoglobin (Hgb A1c) (09/11/2023 10:29 AM EDT) Hemoglobin A1C 6.2(A) 4.0 - 6.0 % QC Media Lot # [id number] Lot# Expiration Date Blood Capillary blood specimen / Unknown 09/11/2023 10:29 AM EDT Myah Singh MD POINT OF CARE TEST ENTER/EDIT OR DERABLES Final Result from Last 3 Months or Most Recently Relevant to Health Maintenance Insurance [facility] [employer] (HMO D-SNP) [place] [id number] Care Teams Information Services Manager Relationship Specialty Start Date End Date Myah Singh MD [address] [place] [address] [place] [address] PCP - General Family Medicine 11/08/12
--- OUTSIDE RECORDS SUMMARY | 2025-09-09 13:25 | XMS_ITS | Encounter Summary ---
Author Organization [email or web address] Address [address] [place] [address] Care Team Providers Care Merchandise Collector Name Role Phone Tony Arreola MD Primary Care Provider [phone] Encounter Details Date Type Department Care Team (Late st Contact Info) Description 12/14/2024 Lab Requisition [facility] - Main Lab [address] [place] [address] Tony Arreola MD 38 [facility] [address] [place], [address] Weakness; Unspecified dementia, unspecified severity, without [...] t [facility] [address] [place] [address], [place] [phone] * (ABNORMAL) Complete blood count (12/16/2024 7:20 AM EST) [facility] WBC 5.4 4.8 - 10.8 K/mcL LAB HEMETOLOGY METHOD 12/16/2024 12:51 PM [facility] RBC 4.60 3.80 - 4.80 M/mcL LAB HEMETOLOGY METHOD 12/16/2024 12:51 PM [facility] Hemoglobin 13.4 11.5 [...] LAB HEMETOLOGY METHOD 12/16/2024 12:51 PM EST [facility] Blood Venous blood specimen / Unknown Venipuncture / Unknown 12/16/2024 7:20 AM EST 12/16/2024 11:32 AM EST us Tony Arreola MD LAB BLOOD ORDERABLES Final Resul t [facility] [address] [place] [address], documented in this encounter Visit Diagnoses Diagnosis Weakness Other malaise and fatigue Unspecified dementia, unspecified severity, without behavioral disturbance, psychotic disturbance, mood disturbance, and anxiety (CMS/HCC V24, CMS/HCC V28) documented in this encounter Care Teams Merchandise Collector Relationship Specialty Start Date End Date Tony Arreola MD [address] [place] [address] [address] [place], [phone] PCP - General Family Medicine 12/14/24 documented as of this encounter
--- OUTSIDE RECORDS SUMMARY | 2025-09-09 13:25 | XMS_ITS | Encounter Summary ---
Author Organization [email or web address] Address [address] [place] [address] Care Team Providers Care Pulverizer Feeder Name Role Phone Tony Arreola MD Primary Care Provider [phone] Encounter Details Date Type Department Care Team (Late st Contact Info) Description 12/28/[address] [facility] - Main Lab [address] [facility] [place] [address] Tony Arreola MD 38 [facility] [address] [place], [phone] Weakness; Unspecified dementia, unspecified severity, without [...] V28) documented in this encounter Care Teams Pulverizer Feeder Relationship Specialty Start Date End Date Tony Arreola MD 38 [facility] [address] [place], [phone] PCP - General Family Medicine 12/14/24 documented as of this encounter
--- OUTSIDE RECORDS SUMMARY | 2025-09-09 13:25 | XMS_ITS | Encounter Summary ---
Author Organization [employer] Address [address] [facility] 7t [place] [address] Care Team Providers Care Training Program Manager Name Role Phone Myah Singh MD Primary Care Provider [phone] Encounter Details Date Type Department Care Team (Late st Contact Info) Description 01/30/2023 Telephone [facility] [address] [place], [place] [phone] Myah Singh MD [address] [place], [place] [phone] Social History Tobacco Use Types Packs/Day Years [...] on filedocumented in this encounter Care Teams Training Program Manager Relationship Specialty Start Date End Date Myah Singh MD [address] [place], [place] [phone] PCP - General Family Medicine 11/08/12 [facility] 12/31/24 07/29/25 documented as of this encounter
--- OUTSIDE RECORDS SUMMARY | 2025-09-09 13:25 | XMS_ITS | Patient Health Record ---
Author Organization [facility] Address [address] [place] [address] Care Team Providers Care Export Coordinator Name Role Phone Samantha GARCIA, Myah Primary Care Provider Cali Bailey [phone] Allergies Allergen (clinical drug ingredient) Drug/Non Drug [...] capful in 8 ounces of water Orally QD-BID; Duration: 30 days 08/30/2013 Active Lisinopril 20 MG 1 tablet Orally Once a day; Duration: 90 days 09/15/2015 Active Omeprazole 40 MG 1 capsule Orally Onc e a day; Duration: 30 Active traZODone HCl Active Enalapril Maleate Ac tive Problems Problem Type SNOMED Code ICD Code Onset Dates Problem Status W/U Status Risk Notes Problem Gastroesophageal reflux disease without esophagitis (206336630) Gastroesophageal reflux disease without esophagitis (K21.9) Active confirmed Problem Elevated liver enzymes level (855454406) Elevated liver enzymes (R74.8) Active confirmed Problem Constipation (28542077) Constipation, unspecified constipation type (K59.00) Active confirmed Plan Of Treatment Pending Test Test Name Order Date LIVER PROFILE 04/06/2016 Insurance Providers Payer Name Payer Address Payer Phone Subscriber Number Group Number Insured Name Patient Relationship to Insured Coverage Start Date Coverage End Date [facility] [address] [place] [address] [id number] ZITA PAPPAS Self - patient is the insured MEDICARE OF [place] [address] [place] [address] [id number] ZITA PAPPAS Self - patient is the insured Medical (General) History Medical History History ICD Code GERD--UPPER ENDOSCOPY & COLO NOSCOPY IN 2007--Large HH with tiny area of Polanco's esophagus, no dysplasia; normal colonoscopy DEPRESSION HYPERTENSION HISTORY OF STROKE Kidney stones Denies SC,DM,lung disease,renal disease minor stroke and heart attack [...]
--- OUTSIDE RECORDS SUMMARY | 2025-09-09 13:25 | XMS_ITS | Clinical Summary ---
Author Organization [address] [facility] Address [address] [place] [address] Phone Care Team Providers Care Hand Miter Operator Name Role Phone Tony Arreola MD Primary Care Provider [phone] Social History Tobacco Use Types Packs/Day Years [...] Resul t [facility] [address] [place] [address], * (ABNORMAL) Comprehensive metabolic panel (02/24/2025 6:34 [...] mg/dL LAB CHEMISTRY METHOD [facility]/24[facility] eGFR 53(L) >=60 mL/min/1. [...] Resul t [facility] [address] [place] [address], from Last 3 Months or Most Recently Relevant to Health Maintenance Insurance [facility] MEDICARE Member Subscriber Plan / Payer (Ef fective 2019-Present) Name:Sienna Mendez Relation to Subscriber:Self Name:Sienna Mendez Payer ID:[id number] Group ID:[id number] Type:Not on file Address: [address] [place] [id number] Care Teams Hand Miter Operator Relationship Specialty Start Date End Date Tony Arreola MD [address] [place] [address] [address] [place], [phone] PCP - General Family Medicine 12/14/24
--- OUTSIDE RECORDS SUMMARY | 2025-09-09 13:26 | XMS_ITS | Encounter Summary ---
Author Organization [employer] Address 75 [facility] 7t [place] [address] Care Team Providers Care Frog Farmer Name Role Phone Myah Singh MD Primary Care Provider [phone] Reason for Visit * Reason Comments Med Refill Encounter Details Date Type Department Care Team (Late st Contact Info) Description 10/22/2024 Refill [facility] MEDICINE [address] [place], [place] [phone] Myah Singh MD 230 [place], [place] [phone] Allergic rhinitis, unspecified seasonality, unspecified trigger Social [...] documented as of this encounter Care Teams Frog Farmer Relationship Specialty Start Date End Date Myah Singh MD 230 [place] [address] PCP - General Family Medicine 11/08/12 [facility] 12/31/24 07/29/25 documented as of this encounter
--- OUTSIDE RECORDS SUMMARY | 2025-09-09 13:26 | XMS_ITS | Encounter Summary ---
Author Organization [employer] Address 75 [facility] 7t [place] [address] Care Team Providers Care Wooden Box Maker Name Role Phone Myah Singh MD Primary Care Provider [phone] Reason for Visit * Reason Comments Med Refill Encounter Details Date Type Department Care Team (Late st Contact Info) Description 05/22/2024 Refill [facility] CHC MED & PEDS [address] [place], [place] [phone] Myah Singh MD [address] [place], [place] [phone] Social History Tobacco Use Types Packs/Day Years [...] documented as of this encounter Care Teams Wooden Box Maker Relationship Specialty Start Date End Date Myah Singh MD 230 [place] [address] PCP - General Family Medicine 11/08/12 [facility] 12/31/24 07/29/25 documented as of this encounter
--- OUTSIDE RECORDS SUMMARY | 2025-09-09 13:26 | XMS_ITS | Encounter Summary ---
Author Organization [employer] Address 75 [facility] 7t [place] [address] Care Team Providers Care Construction Mgr Name Role Phone Myah Singh MD Primary Care Provider [phone] Reason for Visit * Reason Comments Med Refill Encounter Details Date Type Department Care Team (Late st Contact Info) Description 11/29/2023 Refill [facility] CHC MED & PEDS [address] [place], [place] [phone] Myah Singh MD [address] [place], [place] [phone] Vitamin D deficiency Social History Tobacco Use [...] documented as of this encounter Care Teams Construction Mgr Relationship Specialty Start Date End Date Myah Singh MD [address] [place] [address] PCP - General Family Medicine 11/08/12 [facility] 12/31/24 07/29/25 documented as of this encounter
--- OUTSIDE RECORDS SUMMARY | 2025-09-09 13:26 | XMS_ITS | Encounter Summary ---
Author Organization [employer] Address 75 [facility] 7t [place] [address] Care Team Providers Care Wool Batting Worker Name Role Phone Myah Singh MD Primary Care Provider [phone] Encounter Details Date Type Department Care Team ([facility] st Contact Info) Description 03/26/2025 Telephone [facility] MEDICINE 230 [place], [place] [phone] Myah Singh MD 230 [place], [place] [phone] Social History Tobacco Use Types Packs/Day Years [...] documented as of this encounter Care Teams Wool Batting Worker Relationship Specialty Start Date End Date Myah Singh MD [address] [place] [address] PCP - General Family Medicine 11/08/12 [facility] 12/31/24 07/29/25 documented as of this encounter
--- OUTSIDE RECORDS SUMMARY | 2025-09-09 13:26 | XMS_ITS | Encounter Summary ---
Author Organization [employer] Address [address] [place] [address] Care Team Providers Care Insurance Salesman Name Role Phone Tony Arreola MD Primary Care Provider [phone] Encounter Details Date Type Department Care Team (Late st Contact Info) Description 11/29/[address] [facility] - Main Lab [address] [place] [address] Tony Arreola MD 38 [facility] [address] [place], [address] Weakness; Unspecified dementia, unspecified severity, without [...] Resul t [facility] [address] [place] [address], * (ABNORMAL) Complete blood count (12/02/2024 7:21 AM EST) [facility] WBC 6.8 4.8 - 10.8 K/mcL [...] LAB HEMETOLOGY METHOD 12/02/2024 10:57 AM EST [facility] Blood Venous blood specimen / Unknown Venipuncture / Unknown 12/02/2024 7:21 AM EST 12/02/2024 10:33 AM EST us Tony Arreola MD LAB BLOOD ORDERABLES Final Resul t [facility] ([facility]) [facility] [address] [place] [address], documented in this encounter Visit Diagnoses Diagnosis Weakness Other malaise and fatigue Unspecified dementia, unspecified severity, without behavioral disturbance, psychotic disturbance, mood disturbance, and anxiety (CMS/HCC V24, CMS/HCC V28) documented in this encounter Care Teams Insurance Salesman Relationship Specialty Start Date End Date Tony Arreola MD [address] [place] [address] [address] [place], [phone] PCP - General Family Medicine 12/14/24 documented as of this encounter
--- OUTSIDE RECORDS SUMMARY | 2025-09-09 13:26 | XMS_ITS | Encounter Summary ---
Author Organization [employer] Address [address] [place] [address] Care Team Providers Care Train Controller Name Role Phone Tony Arreola MD Primary Care Provider [phone] Encounter Details Date Type Department Care Team (Late st Contact Info) Description 02/24/2025 Lab Requisition [facility] - Main Lab 299 [facility] [place] [address] Venus Mayberry MD [address] [place], [place] [address] Essential (primary) hypertension; Type 2 diabetes mellitus [...] * Vitamin B12 (02/24/2025 6:34 AM EDT) [facility] Vitamin B-12 324 250 - 900 pcg/mL LAB CHEMISTRY METHOD 02/24/2025 12:24 PM EDT [facility] Blood Venous blood specimen / Unknown Venipuncture / Unknown 02/24/2025 6:34 AM EDT 02/24/2025 10:44 AM EDT us Venus Mayberry MD LAB BLOOD ORDERABLES Final Resul t Performing Organization Address City/[facility]/ZIP Co de Phone Number [facility] [address] [place] [address], [place] [phone] * Folate (02/24/2025 6:34 AM EDT) [facility] Folate 11.3 2.8 - 17.0 ng/ml LAB CHEMISTRY METHOD 02/24/2025 12:24 PM EDT [facility] Blood Venous blood specimen / Unknown Venipuncture / Unknown 02/24/2025 6:34 AM EDT 02/24/2025 10:44 AM EDT us Venus Mayberry MD LAB BLOOD ORDERABLES Final Resul t Performing Organization Address City/[facility]/ZIP Co de Phone Number [facility] [address] [place] [address], [place] [phone] * (ABNORMAL) Vitamin D 25 hydroxy (02/24/2025 6:34 AM EDT) Pathologist [facility] Vit D, 25-Hydroxy 29.9(L) 30.0 - 80.0 ng/mL LAB CHEMISTRY METHOD 02/24/2025 1:12 PM EDT [facility] Blood Venous blood specimen / Unknown Venipuncture / Unknown 02/24/2025 6:34 AM EDT 02/24/2025 10:44 AM EDT us Venus Mayberry MD LAB BLOOD ORDERABLES Final Resul t Performing Organization Address [facility] Co de Phone Number [facility] [address] [place] [address], * Thyroid stimulating hormone (02/24/2025 6:34 AM EDT) [facility] TSH 1.44 0.40 - 4.00 mcIU/mL LAB CHEMISTRY METHOD 02/24/2025 1:13 PM EDT [facility] Blood Venous blood specimen / Unknown Venipuncture / Unknown 02/24/2025 6:34 AM EDT 02/24/2025 10:44 AM EDT us Venus Mayberry MD LAB BLOOD ORDERABLES Final Resul t Performing Organization Address [facility] de Phone Number [facility] [address] [place] [address], [place] [phone] * Hemoglobin A1c (02/24/2025 6:34 AM EDT) [facility] Hemoglobin A1C 5.9 <6.5 % LAB CHEMISTRY METHOD 02/24/2025 9:29 PM EDT [facility] Mean Bld Glu Estim. 123 mg/dL LAB CHEMISTRY METHOD 02/24/2025 9:29 PM EDT [facility] Blood Venous blood specimen / Unknown Venipuncture / Unknown 02/24/2025 6:34 AM EDT 02/24/2025 10:44 AM EDT us Venus Mayberry MD LAB BLOOD ORDERABLES Final Resul t [facility] [address] [place] [address], [place] [phone] * (ABNORMAL) Comprehensive metabolic panel (02/24/2025 6:34 AM EDT) Sodium 142 133 - 145 mmol/L LAB CHEMISTRY METHOD 02/24/2025 12:24 PM EDT [facility] Potassium 4.1 3.5 - 5.5 mmol/L LAB CHEMISTRY METHOD 02/24/2025 12:24 PM [facility] Chloride 108 96 - 110 mmol/L LAB CHEMISTRY METHOD 02/24/2025 12:24 PM [facility] CO2 28 21 - 32 mmol/L LAB CHEMISTRY METHOD 02/24/2025 12:24 PM [facility] Anion Gap 6 3 - 11 LAB CHEMISTRY METHOD 02/24/2025 12:24 PM [facility] Glucose 91 70 - 100 mg/dL LAB CHEMISTRY METHOD 02/24/2025 12:24 PM [facility] BUN 30(H) 5 - 25 mg/dL LAB CHEMISTRY METHOD 02/24/2025 12:24 PM [facility] Creatinine 1.02 0.50 - 1.10 mg/dL LAB CHEMISTRY METHOD 02/24/2025 12:24 PM [facility] eGFR 53(L) >=60 mL/min/1. 73m2 LAB CHEMISTRY METHOD 02/24/2025 12:24 PM [facility] Comment:Calculation based on the Chronic Kidney Disease Epidemiology Collaboration (CKD-EPI) equation refit without adjustment for race. BUN/Creatinine Ratio 29.4 LAB CHEMISTRY METHOD 02/24/2025 12:24 PM [facility] Calcium 10.5 8.5 - 10.5 mg/dL LAB CHEMISTRY METHOD 02/24/2025 12:24 PM EDT [facility] AST (SGOT) 31 10 - 42 unit/L LAB CHEMISTRY METHOD 02/24/2025 12:24 PM EDT [facility] ALT (SGPT) 36 10 - 60 unit/L LAB CHEMISTRY METHOD 02/24/2025 12:24 PM EDT [facility] Alkaline Phosphatase 82 42 - 121 unit/L LAB CHEMISTRY METHOD 02/24/2025 12:24 PM EDT [facility] Total Protein 6.8 6.0 - 8.0 g/dL LAB CHE[facility]STRY [facility] Albumin 3.1(L) 3.2 - 5.0 g/dL LAB CHEMISTRY METHOD 02/24/2025 12:24 PM EDT [facility] Total Bilirubin 0.4 0.0 - 1.4 mg/dL LAB CHEMISTRY METHOD 02/24/2025 12:24 PM EDT [facility] Blood Venous blood specimen / Unknown Venipuncture / Unknown 02/24/2025 6:34 AM EDT 02/24/2025 10:44 AM EDT us Venus Mayberry MD LAB BLOOD ORDERABLES Final Resul t [facility] [address] [place] [address], * (ABNORMAL) Complete blood count (02/24/2025 6:34 AM EDT) WBC 6.0 4.8 - 10.8 K/mcL LAB HEMETOLOGY METHOD 02/24/2025 1:12 PM EDT [facility] RBC 4.80 3.80 - 4.80 M/mcL LAB HEMETOLOGY METHOD 02/24/2025 1:12 PM [facility] Hemoglobin 14.3 11.5 - 16.0 g/dL LAB HEMETOLOGY METHOD 02/24/2025 1:12 PM [facility] Hematocrit 45.6 35.0 - 47.0 % LAB HEMETOLOGY METHOD 02/24/2025 1:12 PM [facility] MCV 94.2 79.0 - 98.0 FL LAB HEMETOLOGY METHOD 02/24/2025 1:12 PM [facility] MCH 29.5 27.0 - 32.0 pcg LAB HEMETOLOGY METHOD 02/24/2025 1:12 PM [facility] MCHC 31.4(L) 32.0 - 37.0 g/dL LAB HEMETOLOGY METHOD 02/24/2025 1:12 PM [facility] RDW 14.7 11.0 - 15.0 % LAB HEMETOLOGY METHOD 02/24/2025 1:12 PM [facility] Platelets 154 130 - 400 K/mcL LAB HEMETOLOGY METHOD 02/24/2025 1:12 PM [facility] MPV 11.7(H) 7.0 - 11.0 FL LAB HEMETOLOGY METHOD 02/24/2025 1:12 PM [facility] NRBC 0.0 <1.0 % LAB HEMETOLOGY METHOD 02/24/2025 1:12 PM [facility] NRBC Absolute 0.00 <0.10 K/mcL LAB HEMETOLOGY METHOD 02/24/2025 1:12 PM [facility] Blood Venous blood specimen / Unknown Venipuncture / Unknown 02/24/2025 6:34 AM EDT 02/24/2025 10:44 AM EDT Venus Mayberry MD LAB BLOOD ORDERABLES Final [facility]ul t [facility] [address] [place] [address], documented in this encounter Visit Diagnoses Diagnosis Essential (primary) hypertension Unspecified essential hypertension Type 2 diabetes mellitus without complications (CMS/HCC V24, CMS/HCC V28) documented in this encounter Care Teams Train Controller Relationship Specialty Start Date End Date Tony Arreola MD [address] [place] [address], [phone] PCP - General Family Medicine 12/14/24 documented as of this encounter
== END 2025-09-09 12:08 | disposition home or self-care (01) ==
LOC: HO.HOS 11:06
PROVIDERS: Visit Provider Orthopaedic Surgery
DX: S52.501A Unspecified fracture of the lower end of right radius, initial encounter for closed fracture (principal); R20.0 Anesthesia of skin; E11.9 Type 2 diabetes mellitus without complications; F03.90 Unspecified dementia, unspecified severity, without behavioral disturbance, psychotic disturbance, mood disturbance, and anxiety; R29.6 Repeated falls
CPT/HCPCS: 99024

== ENCOUNTER → 2025-09-09 11:07 | Outpatient (BNV) | payer OTHER, SELFPAY | PROVIDERS: Visit Provider Radiology Diagnostic Radiology | DX: S52.321A Displaced transverse fracture of shaft of right radius, initial encounter for closed fracture (principal) | CPT/HCPCS: 73110 ==

== ENCOUNTER 2025-09-10 07:16 | Outpatient (REF) | payer OTHER, SELFPAY ==
--- OUTSIDE RECORDS SUMMARY | 2025-09-10 07:21 | XMS_ITS | Encounter Summary ---
Author Organization [employer] Address [address] [place] [address] 7t [place] [address] Care Team Providers Care Patient Assessment Coordinator Name Role Phone Myah Singh MD Primary Care Provider [phone] Reason for Visit * Reason Onset Date Comments Durable Medical Equipment 01/30/2023 Encounter Details Date Type Department Care Team (Late st Contact Info) Description 01/30/2023 Telephone [facility] MEDICINE [address] [place], [place] [phone] Myah Singh MD [address] [place], [place] [phone] Durable Medical Equipment Social History Tobacco Use [...] call me or CHACE Beltran also patient [employer]LECT[employer]SEM[employer] can call them as they are the vendor for more information [phone] * Telephone Encounter - Uriahrociorashel Rodriguezmahad Marion - 01/30/2023 10:00 AM EST 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
--- OUTSIDE RECORDS SUMMARY | 2025-09-10 07:21 | XMS_ITS | Encounter Summary ---
Author Organization [employer] Address 75 [facility] 7t [place] [address] Care Team Providers Care Fire Sprinkler Designer Name Role Phone Myah Singh MD Primary Care Provider [phone] Encounter Details Date Type Department Care Team (Late st Contact Info) Description 01/30/2023 Telephone [facility] MEDICINE [address] [place], [place] [phone] Myah Singh MD [address] [place], [place] [phone] Social History Tobacco Use Types Packs/Day Years [...] on filedocumented in this encounter Care Teams Fire Sprinkler Designer Relationship Specialty Start Date End Date Myah Singh MD [address] [place], [place] [phone] PCP - General Family Medicine 11/08/12 [facility] 12/31/24 07/29/25 documented as of this encounter
--- OUTSIDE RECORDS SUMMARY | 2025-09-10 07:21 | XMS_ITS | Encounter Summary ---
Author Organization [employer] Address [address] [place] [address] Care Team Providers Care Wire Turning Machine Operator Name Role Phone Tony Arreola MD Primary Care Provider [phone] Encounter Details Date Type Department Care Team (Late st Contact Info) Description 12/14/2024 Lab Requisition [facility] - Main Lab [address] [place] [address] Tony Arreola MD 38 [facility] [address] [place], [address] Weakness; Unspecified dementia, unspecified severity, without [...] mmol/L LAB CHEMISTRY METHOD 12/16/2024 1:55 PM [facility] Potassium 4.1 3.5 - 5.5 mmol/L LAB CHEMISTRY METHOD 12/16/2024 1:55 PM [facility] Chloride 113(H) 96 - 110 mmol/L LAB CHEMISTRY METHOD 12/16/2024 1:55 PM [facility] CO2 28 21 - 32 mmol/L LAB CHEMISTRY METHOD 12/16/2024 1:55 PM [facility] Anion Gap 5 3 - 11 LAB CHEMISTRY METHOD 12/16/2024 1:55 PM [facility] Glucose 88 70 - 100 mg/dL LAB CHEMISTRY METHOD 12/16/2024 1:55 PM [facility] BUN 25 5 - 25 mg/dL LAB CHEMISTRY METHOD 12/16/2024 1:55 PM [facility] Creatinine 1.26(H) 0.50 - 1.10 mg/dL LAB CHEMISTRY METHOD 12/16/2024 1:55 PM [facility] eGFR 41(L) >=60 mL/min/1. 73m2 LAB CHEMISTRY METHOD 12/16/2024 1:55 PM [facility] Comment:Calculation based on the Chronic Kidney Disease Epidemiology Collaboration (CKD-EPI) equation refit without adjustment for race. BUN/Creatinine Ratio 19.8 LAB CHEMISTRY METHOD 12/16/2024 1:55 PM [facility] Calcium 9.3 8.5 - 10.5 mg/dL LAB CHEMISTRY METHOD 12/16/2024 1:55 PM [facility] Blood Venous blood specimen / Unknown Venipuncture / Unknown 12/16/2024 7:20 AM EST 12/16/2024 11:32 AM EST us Tony Arreola MD LAB BLOOD ORDERABLES Final Resul t [facility] [address] [place] [address], [place] [phone] * (ABNORMAL) Complete blood count (12/16/2024 7:20 AM EST) [facility] WBC 5.4 4.8 - 10.8 K/mcL LAB HEMETOLOGY METHOD 12/16/2024 12:51 PM [facility] RBC 4.60 3.80 - 4.80 M/mcL LAB HEMETOLOGY METHOD 12/16/2024 12:51 PM [facility] Hemoglobin 13.4 11.5 - 16.0 g/dL LAB HEMETOLOGY METHOD 12/16/2024 12:51 PM [facility] Hematocrit 43.8 35.0 - 47.0 % LAB HEMETOLOGY METHOD 12/16/2024 12:51 PM [facility] MCV 95.8 79.0 - 98.0 FL LAB HEMETOLOGY METHOD 12/16/2024 12:51 PM [facility] MCH 29.3 27.0 - 32.0 pcg LAB HEMETOLOGY METHOD 12/16/2024 12:51 PM [facility] MCHC 30.6(L) 32.0 - 37.0 g/dL LAB HEMETOLOGY METHOD 12/16/2024 12:51 PM [facility] RDW 14.9 11.0 - 15.0 % LAB HEMETOLOGY METHOD 12/16/2024 12:51 PM [facility] Platelets 135 130 - 400 K/mcL LAB HEMETOLOGY METHOD 12/16/2024 12:51 PM [facility] MPV 12.3(H) 7.0 - 11.0 FL LAB HEMETOLOGY METHOD 12/16/2024 12:51 PM [facility] NRBC 0.0 <1.0 % LAB HEMETOLOGY METHOD 12/16/2024 12:51 PM [facility] NRBC Absolute 0.00 <0.10 K/mcL LAB HEMETOLOGY METHOD 12/16/2024 12:51 PM EST [facility] Blood Venous blood specimen / Unknown Venipuncture / Unknown 12/16/2024 7:20 AM EST 12/16/2024 11:32 AM EST us Tony Arreola MD LAB BLOOD ORDERABLES Final Resul t [facility] ([facility] [address] [place] [address], documented in this encounter Visit Diagnoses Diagnosis Weakness Other malaise and fatigue Unspecified dementia, unspecified severity, without behavioral disturbance, psychotic disturbance, mood disturbance, and anxiety (CMS/HCC V24, CMS/HCC V28) documented in this encounter Care Teams Wire Turning Machine Operator Relationship Specialty Start Date End Date Tony Arreola MD [address] [place] [address] [address] [place], [phone] PCP - General Family Medicine 12/14/24 documented as of this encounter
--- OUTSIDE RECORDS SUMMARY | 2025-09-10 07:21 | XMS_ITS | Clinical Summary ---
Author Organization [employer] Address [address] [place] [address] 7[address] [place] [address] Care Team Providers Care Therapy Director Name Role Phone Myah Singh MD Primary Care Provider [phone] Allergies Active Allergy Reactions Criticality Noted Date Comments Benzocaine 06/25/2014 Butamben 06/25/2014 Ceftazidime 01/03/2018 Metoclopramide 01/03/2018 Morphine Other reaction(s): unspecified Tetracaine 06/25/2014 Medications Ventolin HFA 108 (90 Base) MCG/ACT inhaler INHALE 2 PUFFS EVERY 6 HOURS NEEDED FOR SHORTNESS OF BREATH OR WHEEZING 2 Active Blood Glucose Monitoring Suppl (FreeStyle Lite) w/Device kit TEST 1 TIMES BY INTRADERMAL ROUTE EVERY MORNING AND NEEDED 2 Active donepezil (Aricept) 10 MG tablet TAKE 1 TABLET BY MOUTH EVERY DAY AFTER MEALS 2 Active famotidine (Pepcid) 40 MG tablet Take 40 mg by mouth in the morning. 2 Active FLUoxetine (PROzac) 40 MG capsule Take 40 mg by mouth in the morning. 2 Active furosemide (Lasix) 20 MG tablet 2 Active hydrocortisone 1 % lotion 2 Active memantine (Namenda) 10 MG tablet Take 10 mg by mouth 2 times daily. 2 Active Myrbetriq 50 MG 24 hr tablet 2 Active mirtazapine (Remeron) 15 MG tablet Take 15 mg by mouth at bedtime. 2 Active traZODone (Desyrel) 50 MG tablet 2 Active fluticasone (Flonase) 50 MCG/ACT nasal spray INSTILL 1 SPRAY INTO EACH NOSTRIL EVERY MORNING 16 g 1 4 Active omeprazole (PriLOSEC) [address] capsuleIndicatio ns:Gastroesophag eal reflux disease, unspecified whether esophagitis present TAKE 1 CAPSULE (40MG) BY ORAL ROUTE EVERY DAY BEFORE A MEAL 30 capsule 11 5 Active atorvastatin (Lipitor) 20 MG tabletIndication s:Dyslipidemia TAKE 1 TABLET BY MOUTH AT BEDTIME 30 tablet 10 5 Active ferrous sulfate 325 (65 Fe) MG EC tablet TAKE 1 TABLET BY ORAL ROUTE EVERY OTHER DAY 90 tablet 3 5 Active erythromycin (Romycin) 5 MG/GM ophthalmic ointment Apply to both eyes at bedtime. Apply Amount per Dose: 0.5 inch (~1 cm) per dose. 3.5 g 5 Active Ketotifen Fumarate 0.035 % solution Administer 1 drop into affected eye(s) 2 times daily. 10 mL 1 5 Active docusate sodium (Colace) 100 MG capsule TAKE 1 TABLET BY ORAL ROUTE 2 TIMES EVERY DAY 60 capsule 9 5 Active haloperidol (Haldol) 2 MG/ML solution Take 1 mg by mouth Once per day. 2 Active Alcohol Swabs (Ultra-Care Alcohol Prep Pads) 70 % pads USE DIRECTED TO CLEAN ARE PRIOR TO FINGER STICK 100 each 4 5 Active Calcium + Vitamin D3 600-5 MG-MCG tablet TAKE 1 TABLET BY MOUTH 2 TIMES DAILY. 60 tablet 11 5 Active Ascorbic Acid (vitamin C) 500 MG tablet TAKE 1 BY ORAL ROUTE 2 TIMES EVERY DAY 60 tablet 11 5 Active Lancets (Safety Lancet 30G/Pressure Act) miscIndications: Type 2 diabetes mellitus with other specified complication, without long-term current use of insulin (HCC) INJECT 1 BY INTO MACHINE ROUTE EVERY DAY 100 each 10 5 Active lisinopril 20 MG tabletIndication s:Primary hypertension TAKE 1 TABLET (20 MG) BY MOUTH ONCE PER DAY. 90 tablet 1 5 Active amLODIPine (Norvasc) 5 MG tablet TAKE 1 TABLET BY MOUTH EVERY DAY 30 tablet 3 5 Active montelukast (Singulair) 10 MG tabletIndication s:Allergic rhinitis, unspecified seasonality, unspecified trigger TAKE 1 TABLET BY ORAL ROUTE EVERY DAY IN THE EVENING 30 tablet 3 5 Active aspirin (Aspirin Low Dose) 81 MG EC tablet TAKE 1 TABLET BY MOUTH IN THE MORNING. 30 tablet 3 5 Active FREESTYLE LITE test stripIndications :Type 2 diabetes mellitus with stage 3 chronic kidney disease, without long-term current use of insulin, unspecified whether stage 3a or 3b CKD (HCC) TEST BLOOD SUGAR DAILY AND NEEDED 100 each 10 5 Active cetirizine (ZyrTEC) 5 MG tablet TAKE 1 TABLET (5 MG) BY MOUTH IN THE MORNING. 30 tablet 1 5 Active Active Problems Problem Noted Date Diagnosed [...] PM EDT): -Oct 2015 -Previously following with [facility] Cardiology, upcoming appt -Continue risk factor mangement Assessment & Plan (01/07/2023 4:34 PM EST): -Oct 2015 -Previously following with [facility] Cardiology, upcoming appt -Continue risk factor mangement [...] cm2. Mild aortic valve regurgitation. -Seen by talent rep, Dr. Garcia in [facility], on 07/27/23, since she is not a [...] cm2. Mild aortic valve regurgitation. -Seen by talent rep, Dr. Garcia in [facility], on 07/27/23, since she is not a [...] cm2. Mild aortic valve regurgitation. -Seen by talent rep, Dr. Garcia in [facility], on 07/27/23, since she is not a [...] -Pt has an upcoming appt with her talent rep Assessment & Plan (01/07/2023 5:17 PM EST): - Most recent TTE 10/14/22: There is mild calcification of the aortic valve. There is moderate aortic valve stenosis. The peak aortic gradient is 33 mmHg.The mean gradient is 16 mmHg. There is mild aortic valve regurgitation. -Pt has loud murmur consistent with aortic stenosis -NSTEMI in 2015 -Pt has an upcoming appt with her talent rep Anemia 01/07/2023 Assessment & Plan (01/07/2023 5:24 PM EST): - anemia of chronic disease (CKD, cirrhosis) - continue ferrous sulfate - check lab Diabetes mellitus, type 2 12/28/2022 Overview (04/07/2025): Frequent utis from jardiance Assessment & Plan (05/06/2025 11:29 AM EDT): Blood sugars are in range (90-110)without jardance, pt grandaughter and HEAD MIXER deny any swelling, sob, orthopnea edema or [...] Plan (01/17/2025 5:56 AM EST): -Following with [facility] Sleep medicine clinic, last seen in January [...] monitor periodically Osteopenia 01/07/2013 Anxiety 12/10/2012 Dementia ([facility]/HCC) 12/10/2012 Assessment & Plan (01/17/2025 5:58 AM EST): -multifactorial: Alzeheimer's; Hx CVA and TIA; hx COVID; depression / anxiety -following with Dr. Estevez, neurologist, last seen in Dec 2021, and psychiatrist Dr. Diaz -continue current medications prescribed by both neurologist and psychiatrist -it seems like patient was seeing psychiatrist while staying in the shelter -work on risk factor management -reviewed safety [...] Risk: CKD, age, NSTEMI, Hx CVA/TIA, DM2 -Stock Preparation Supervisor: Previously [facility] pt has a new appt on 01/23/23 [...] Risk: CKD, age, NSTEMI, Hx CVA/TIA, DM2 -Stock Preparation Supervisor: Previously [facility] pt has a new appt on 01/23/23 [...] Risk: CKD, age, NSTEMI, Hx CVA/TIA, DM2 -Stock Preparation Supervisor: [facility] has a new appt on 01/23/23 (Grade [...] Risk: CKD, age, NSTEMI, Hx CVA/TIA, DM2 -Stock Preparation Supervisor: Previously [facility] pt has a new appt on 01/23/23 [...] Risk: CKD, age, NSTEMI, Hx CVA/TIA, DM2 -Stock Preparation Supervisor: Previously [facility], pt has a new appt on 01/23/23 [...] Assessment & Plan (01/17/2025 6:08 AM EST): -Poultry Hatchery Man: Dr. Martinez -Avoid nephrotoxic drugs and use renal dosing. -Recheck renal function today -On Jardiance, at low-dose, 10mg daily. Caution with UTI Assessment & Plan (02/04/2024 1:13 PM EDT): -Poultry Hatchery Man: Dr. Martinez -Baseline: 09/26/22 BUN 29; SCr 1.2, eGFR 43, AST 12, ALT 19, AP 91 -Avoid nephrotoxic drugs and use renal dosing. -Recheck renal function today -On Jardiance, at low-dose, 10mg daily. Assessment & Plan (09/10/2023 4:32 PM EDT): -Poultry Hatchery Man: Dr. Martinez, last seen in 2016 or 2017. Per caregiver, pt was discharged due to stability -Baseline: 09/26/22 BUN 29; SCr 1.2, eGFR 43, AST 12, ALT 19, AP 91 -Avoid nephrotoxic drugs and use renal dosing. -Recheck renal function today -On Jardiance, at low-dose, 10mg daily. Assessment & Plan (05/08/2023 11:04 AM EDT): -Poultry Hatchery Man: Dr. Martinez, last seen in 2016 or 2017. Per caregiver, pt was discharged due to stability -Baseline: 09/26/22 BUN 29; SCr 1.2, eGFR 43, AST 12, ALT 19, AP 91 -Avoid nephrotoxic drugs and use renal dosing. -Recheck renal function today -On Jardiance, at low-dose, 10mg daily. Assessment & Plan (01/07/2023 4:54 PM EST): -Poultry Hatchery Man: Dr. Martinez, last seen in 2017 or [...] Type Department Care Team Description 08/09/2025 Refill [facility] MEDICINE [address] [place] [address] Myah Singh MD 08/07/2025 Orders Only GENERIC EXTERNAL DATA DEPARTMENT Provider, Generic External Data 08/04/2025 Refill [facility] MEDICINE [address] [place] [address] Myah Singh MD Type 2 diabetes mellitus with stage 3 chronic kidney disease, without long-term current use of insulin, unspecified whether stage 3a or 3b CKD ([facility]) 07/21/2025 Refill [facility] MEDICINE [address] [place], [place] [phone] Liliana Seras MD 07/21/2025 Refill [facility] MEDICINE [address] [place], [place] [phone] Myah Singh MD Allergic rhinitis, unspecified seasonality, unspecified trigger 07/10/2025 Telephone [facility] MEDICINE [address] [place], [place] [phone] Myah Singh MD Durable Medical Equipment (DME: [...] your housing situation today? I have maryan arabella 09/10/[address] you li [...] Additional history exists Diabetes: Hemoglobin A1C 08/26/2025 03 025, 09/11/2023, 12/29/2022, Additional history exists Tobacco [...] Whole Blood 90 60 - 115 mg/dL [facility] Comment:METER #: [id number] 08/07/2025 12:2 0 PM EDT 08/07/2025 4:35 PM EDT us Generic External Data Provider LAB BLOOD ORDERAB LES Final Result [facility] [address] [place] [phone] * SARS-CoV-2 RNA, Influenza A/B, and RSV RNA, Ql NAAT (08/07/2025 8:48 AM EDT) Pathologist [facility] Influenza A PCR NEGATIVE Negative [facility] Influenza B PCR NEGATIVE Negative [facility] Resp Syncy Virus RNA Qual PCR NEGATIVE Negative [facility] SARS COV2 PCR NEGATIVE Negative [facility] Comment:All test results mus t [...] use by authorized laboratories.Testing performed on the [employer] GeneXpert utilizingreal-time RT-PCR.All SARS CoV2 and positive influenza A/B results arereported to [facility]. 08/07/2025 8:48 AM EDT 08/07/2025 8:51 AM EDT Generic External Data Provider LAB MICROBIOLOGY - GENERAL ORDERABLES Final Result [facility] [address] [place] [address] [phone] * Lipid Panel with Reflex to Direct LDL (01/22/2024 12:20 PM EST) Triglycerides 130 <150 mg/dL [facility] Comment:Desirable Triglyceri de: less than 150 mg/dLBorderline High Triglyceride 150-199 mg/dLHigh Triglyceride: 200-499 mg/dLVery High Triglyceride: greater than or equal to 5OO mg/dL Cholesterol 109 <200 mg/dL [facility] Comment:Desirable Cholestero l: less than 200 mg/dLBorderline High Cholesterol: 200-239 mg/dLHigh Cholesterol: greater than 239 mg/dL LDL Cholesterol Calculated 41 <100 mg/dL [facility] Comment:Desirable LDL: less than 100 mg/dLNear Optimal/Above Optimal LDL: 110- 129 mg/dLBorderline High LDL: 130-159 mg/dLHigh LDL: 160-189 mg/dLVery High LDL: greater than or equal to 190 mg/dL HDL Cholesterol 42 >40 mg/dL [facility] Comment:Desirable HDL: great er than 40 mg/dL Note: This HDL assay may give artificially low results in patients with liver disease. Blood 01/22/2024 12:2 0 PM EST 01/22/2024 1:11 PM EST Myah Singh MD LAB BLOOD ORDERABLES Final Resul t [facility] [address] [place] [address] [phone] * (ABNORMAL) POCT glycosylated hemoglobin (Hgb A1c) (09/11/2023 10:29 AM EDT) Hemoglobin A1C 6.2(A) 4.0 - 6.0 % QC Media Lot # [id number] Lot# Expiration Date Blood Capillary blood specimen / Unknown 09/11/2023 10:29 AM EDT Myah Singh MD POINT OF CARE TEST ENTER/EDIT OR DERABLES Final Result from Last 3 Months or Most Recently Relevant to Health Maintenance Insurance [facility] CARE HOME OPTIONS (O D-SNP) [employer] [id number] Care Teams Therapy Director Relationship Specialty Start Date End Date Myah Singh MD [address] [place] [address] [place] [address] PCP - General Family Medicine 11/08/12
--- OUTSIDE RECORDS SUMMARY | 2025-09-10 07:21 | XMS_ITS | Encounter Summary ---
Author Organization [employer] Address [address] [place] [address] Care Team Providers Care Solar Consultant Name Role Phone Tony Arreola MD Primary Care Provider [phone] Encounter Details Date Type Department Care Team (Late st Contact Info) Description 12/28/2024 Lab Requisition [facility] - Main Lab [address] [facility] [place] [address] Tony Arreola MD [address] [facility] [address] [place], [phone] Weakness; Unspecified [...] V28) documented in this encounter Care Teams Solar Consultant Relationship Specialty Start Date End Date Tony Arreola MD [address] [facility] [address] [place], [phone] PCP - General Family Medicine 12/14/24 documented as of this encounter
--- OUTSIDE RECORDS SUMMARY | 2025-09-10 07:21 | XMS_ITS | Data Portability ---
Author Organization [facility], [facility] Address [address] [place] [phone] Care Team Providers Care Supervisor Assembly Stock Name Role Phone [facility] Referring Provider Assessment Encounter Date Assessment Date Assessment LastModified [...] recorded. Lab cmp, whole blood + waqar [facility], [address] [place] [address], [place], [phone] 10:38:51 culture, urine REDDING [facility] (Centralized Electronic Ordering - All Locations), Patient Can Go To The Location Of Their Choice, [address] 05:01:48 Referral None recorded. Procedures None recorded. [...] Pulse oximetry Respiratory rate Heart rate Systolic And Diastolic Systolic And Diastolic Provider Name and Address Organization Details Last Updated DateTime 2 20 /min 94 % 94 % 98 [degF] 84 /min 98 [degF] 94 % 94 % 20 /min 84 /min 101/63 mm[Hg] 101/63 mm[Hg] Not Available [facility] - production 2 [...] ICD10 Code Diagnosis IMO Codes Diagnosis Note 4625 Kenia Hernandez MD Main - [facility] [address] [place] [phone] 09/10/2022 16:51:17 09/12/2022 13:08:31 Right upper quadrant pain 014485991 R10.11 Health Concerns Section Related Observation LastModified by Organization Detai ls LastModified Time None Recorded Concern Status LastModified by Organization Details LastModified Time None Recorded Advance Directives Directive None Recorded Payers Insurance Date Sequence Insurance Name Policy Number Policy Gonzalez Covered Member ID Gonzalez Member ID Guarantor Name 01/21/2024 1 [facility] - DOS PRIOR TO 2023 - DUAL ELIGIBLE (MEDICARE REPLACEMENT/ADV ANTAGE - HMO) Sienna Mendez [id number] Sienna Mendez 01/21/2024 1 [facility] - DOS ON OR AFTER 2023 - DUAL ELIGIBLE - CARE HOME OPTIONS AND ONE CARE (MEDICARE REPLACEMENT/ADV ANTAGE - HMO) Sienna Mendez [id number] Sienna Mendez Notes Date Note Type Note [...] and assists coordinate all visitsher number is [phone], member uses this number as her Primary contact. 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 Pleasantly confused. Supportive family. This RNCP recommends Female Providers if possible. Can the results be faxed to [facility] at [phone] Sinhg if possible? ...................... ...................... ...................... ...................... ...................... ...................... ......... CRC Nursing Assessment: Comments: CRC RN did not require any additional information to process this visit. Spoke with daughter who agrees to visit for 09/10> would like to be seen early in the day if possible [facility] HPI:chronic kidney disease, dementia, HTN, CAD with acute on chronic progressive behavior changes. eating normally, voiding normally, drinking normally, no vomiting, no diarrhea, no fevers, cough. No one else has been sick at home. No changes the family can identify in terms of schedule. No reports of worse unsteadiness on her feet or falls.Granddaughter reports that PMH includes cirrhosis Kenia Tilhou, MD [address] [facility],[address], [place], [address], [employer] 09/10/2022 17:40:46 OBGyn Episode No OBEpisode recorded.
--- OUTSIDE RECORDS SUMMARY | 2025-09-10 07:21 | XMS_ITS | Patient Health Record ---
Author Organization [facility] Address [address] [place] [address] Care Team Providers Care Perforator Operator Oil Well Name Role Phone Samantha GARCIA, Myah Primary Care Provider Cali Bailey [phone] Allergies Allergen (clinical drug ingredient) Drug/Non Drug [...] Notes Problem Gastroesophageal reflux disease without esophagitis (784131783) Gastroesophageal reflux disease without esophagitis (K21.9) Active confirmed Problem Elevated liver enzymes level (020110380) Elevated liver enzymes (R74.8) Active confirmed Problem Constipation (48423010) Constipation, unspecified constipation type (K59.00) Active confirmed Plan Of Treatment Pending Test Test Name Order Date LIVER PROFILE 04/06/2016 Insurance Providers Payer Name Payer Address Payer Phone Subscriber Number Group Number Insured Name Patient Relationship to Insured Coverage Start Date Coverage End Date [facility] [address] [place] [address] [id number] ZITA PAPPAS Self - patient is the insured MEDICARE OF [place] [address] [place] [address] [phone] [id number] ZITA PAPPAS Self - patient is the insured Medical (General) History Medical History History ICD Code GERD--UPPER ENDOSCOPY & COLO NOSCOPY IN 2007--Large HH with tiny area of Polanco's esophagus, no dysplasia; normal colonoscopy DEPRESSION HYPERTENSION HISTORY OF STROKE Kidney stones Denies CA,DM,lung disease,renal disease minor stroke and heart attack [...]
--- OUTSIDE RECORDS SUMMARY | 2025-09-10 07:21 | XMS_ITS | Clinical Summary ---
Author Organization [facility] Address [address] [address] Care Team Providers Care Spray Gun Repairer Name Role Phone Unavailable Primary Care Provider [...] -Pt has an upcoming appt with her dance master History of cerebrovascular accident 01/07/2023 Overview (01/23/2023): Last Assessment & Plan: -around 2009 previous medical record -TIA in 2015 -Continue working on secondary prevention / risk factor management History of non-ST segment elevation myocardial i nfarction 01/07/2023 Overview (01/23/2023): Last Assessment & Plan: -Oct 2015 -Previously following with [facility], upcoming appt -Continue risk factor mangement [...] Risk: CKD, age, NSTEMI, Hx CVA/TIA, DM2 -Shake Packer: Previously [facility], pt has a new appt on 01/23/23 [...] Followed by Dr. Vallecillo, [facility] - Continue mirabegron as prescribed Unspecified [...] to 49 Years) Discontinued 02/23/2015, 10/04/2001 Insurance [facility] ([id number]) [employer] [id number] [facility] ([id number])
--- OUTSIDE RECORDS SUMMARY | 2025-09-10 07:21 | XMS_ITS | Encounter Summary ---
Author Organization [facility] Address [address] [facility] [address] [place] [address] Phone Care Team Providers Care Welcome Desk Agent Name Role Phone Unavailable Primary Care Provider Unavailabl e Reason for Visit * Reason Comments Med Refill Encounter Details Date Type Department Care Team ([facility] st Contact Info) Description 12/10/2021 Refill [facility] [address] [facility] [address] [place] [phone] Chino Martinez MD [address] [facility] [address] [place] [phone] Social History Tobacco Use Types Packs/Day Years [...]
--- OUTSIDE RECORDS SUMMARY | 2025-09-10 07:21 | XMS_ITS | Encounter Summary ---
Author Organization [employer] Address [address] [place] [address] Care Team Providers Care Vat Cleaner Name Role Phone Tony Arreola MD Primary Care Provider [phone] Encounter Details Date Type Department Care Team (Late st Contact Info) Description 12/06/2024 Lab Requisition [facility] - Main Lab [address] [place] [address] Tony Arreola MD [address] [facility] [address] [place], [phone] Weakness; Unspecified dementia, unspecified severity, without [...] Resul t [facility] [address] [place] [address], [place] [phone] * (ABNORMAL) Complete blood count (12/09/2024 7:13 AM EST) [facility] Signature WBC 6.9 4.8 - 10.8 [...] Resul t [facility] [address] [place] [address], documented in this encounter Visit Diagnoses Diagnosis Weakness Other malaise and fatigue Unspecified dementia, unspecified severity, without behavioral disturbance, psychotic disturbance, mood disturbance, and anxiety (CMS/HCC V24, CMS/HCC V28) documented in this encounter Care Teams Vat Cleaner Relationship Specialty Start Date End Date Tony Arreola MD [address] [place] [address], [phone] PCP - General Family Medicine 12/14/24 documented as of this encounter
--- OUTSIDE RECORDS SUMMARY | 2025-09-10 07:21 | XMS_ITS | Encounter Summary ---
Author Organization [employer] Address [address] [place] [address] Care Team Providers Care Electrical Continuity Inspector Name Role Phone Tony Arreola MD Primary Care Provider [phone] Encounter Details Date Type Department Care Team (Late st Contact Info) Description 12/21/2024 Lab Requisition [facility] - Main Lab [address] [place] [address] Tony Arreola MD [address] [place] [address] [address] [place], [address] Weakness; Unspecified dementia, unspecified severity, without [...] mmol/L LAB CHEMISTRY METHOD 12/23/2024 12:53 PM [facility] Potassium 4.2 3.5 - 5.5 mmol/L LAB CHEMISTRY METHOD 12/23/2024 12:53 PM [facility] Chloride 111(H) 96 - 110 mmol/L LAB CHEMISTRY METHOD 12/23/2024 12:53 PM [facility] CO2 28 21 - 32 mmol/L LAB CHEMISTRY METHOD 12/23/2024 12:53 PM [facility] Anion Gap 5 3 - 11 LAB CHEMISTRY METHOD 12/23/2024 12:53 PM [facility] Glucose 84 70 - 100 mg/dL LAB CHEMISTRY METHOD 12/23/2024 12:53 PM [facility] BUN 22 5 - 25 mg/dL LAB CHEMISTRY METHOD 12/23/2024 12:53 PM [facility] Creatinine 1.25(H) 0.50 - 1.10 mg/dL LAB CHEMISTRY METHOD 12/23/2024 12:53 PM [facility] eGFR 42(L) >=60 mL/min/1. 73m2 LAB CHEMISTRY METHOD 12/23/2024 12:53 PM [facility] Comment:Calculation based on the Chronic Kidney Disease Epidemiology Collaboration (CKD-EPI) equation refit without adjustment for race. BUN/Creatinine Ratio 17.6 LAB CHEMISTRY METHOD 12/23/2024 12:53 PM [facility] Calcium 9.3 8.5 - 10.5 mg/dL LAB CHEMISTRY METHOD 12/23/2024 12:53 PM [facility] Blood Venous blood specimen / Unknown Venipuncture / Unknown 12/23/2024 6:50 AM EST 12/23/2024 10:55 AM EST us Tony Arreola MD LAB BLOOD ORDERABLES Final Resul t [facility] [address] [place] [address], * (ABNORMAL) Complete blood count (12/23/2024 6:50 AM EST) [facility] WBC 6.0 4.8 - 10.8 K/mcL LAB HEMETOLOGY METHOD 12/23/2024 12:49 PM [facility] RBC 4.70 3.80 - 4.80 M/mcL LAB HEMETOLOGY METHOD 12/23/2024 12:49 PM [facility] Hemoglobin 13.4 11.5 - 16.0 g/dL LAB HEMETOLOGY METHOD 12/23/2024 12:49 PM [facility] Hematocrit 43.6 35.0 - 47.0 % LAB HEMETOLOGY METHOD 12/23/2024 12:49 PM [facility] MCV 93.6 79.0 - 98.0 FL LAB HEMETOLOGY METHOD 12/23/2024 12:49 PM [facility] MCH 28.8 27.0 - 32.0 pcg LAB HEMETOLOGY METHOD 12/23/2024 12:49 PM [facility] MCHC 30.7(L) 32.0 - 37.0 g/dL LAB HEMETOLOGY METHOD 12/23/2024 12:49 PM [facility] RDW 14.8 11.0 - 15.0 % LAB HEMETOLOGY METHOD 12/23/2024 12:49 PM [facility] Platelets 142 130 - 400 K/mcL LAB HEMETOLOGY METHOD 12/23/2024 12:49 PM [facility] MPV 12.0(H) 7.0 - 11.0 FL LAB HEMETOLOGY METHOD 12/23/2024 12:49 PM [facility] NRBC 0.0 <1.0 % LAB HEMETOLOGY METHOD 12/23/2024 12:49 PM [facility] NRBC Absolute 0.00 <0.10 K/mcL LAB HEMETOLOGY METHOD 12/23/2024 12:49 PM EST [facility] Blood Venous blood specimen / Unknown Venipuncture / Unknown 12/23/2024 6:50 AM EST 12/23/2024 10:55 AM EST Tony Arreola MD LAB BLOOD ORDERABLES Final Resul t [facility] [address] [place] [address], documented in this encounter Visit Diagnoses Diagnosis Weakness Other malaise and fatigue Unspecified dementia, unspecified severity, without behavioral disturbance, psychotic disturbance, mood disturbance, and anxiety (CMS/HCC V24, CMS/HCC V28) documented in this encounter Care Teams Electrical Continuity Inspector Relationship Specialty Start Date End Date Tony Arreola MD [address] [place] [address], [phone] PCP - General Family Medicine 12/14/24 documented as of this encounter
--- OUTSIDE RECORDS SUMMARY | 2025-09-10 07:21 | XMS_ITS | Clinical Summary ---
Author Organization [address] [facility] Address [address] [place] [address] Phone Care Team Providers Care Sql Architect Name Role Phone Tony Arreola MD Primary Care Provider [phone] Social History Tobacco Use Types Packs/Day Years [...] t [facility] [address] [place] [address], * (ABNORMAL) Comprehensive metabolic panel (02/24/2025 6:34 AM EDT) Sodium 142 133 - 145 mmol/L LAB CHEMISTRY METHOD 02/24/2025 12:24 PM EDT [facility] Potassium 4.1 3.5 - 5.5 mmol/L LAB CHEMISTRY METHOD 02/24/2025 12:24 PM [facility] Chloride 108 96 - 110 mmol/L LAB CHEMISTRY METHOD 02/24/2025 12:24 PM [facility] CO2 28 21 - 32 mmol/L LAB CHEMISTRY METHOD 02/24/2025 12:24 PM [facility] Anion Gap 6 3 - 11 LAB CHEMISTRY METHOD 02/24/2025 12:24 PM [facility] Glucose 91 70 - 100 mg/dL LAB CHEMISTRY METHOD 02/24/2025 12:24 PM [facility] BUN 30(H) 5 - 25 mg/dL LAB CHEMISTRY METHOD 02/24/2025 12:24 PM [facility] Creatinine 1.02 0.50 - 1.10 mg/dL LAB CHEMISTRY METHOD [facility] eGFR 53(L) >=60 mL/min/1. 73m2 LAB CHEMISTRY METHOD 02/24/2025 12:24 PM [facility] Comment:Calculation based on the Chronic Kidney Disease Epidemiology Collaboration (CKD-EPI) equation refit without adjustment for race. BUN/Creatinine Ratio 29.4 LAB CHEMISTRY METHOD 02/24/2025 12:24 PM [facility] Calcium 10.5 8.5 - 10.5 mg/dL LAB CHEMISTRY METHOD 02/24/2025 12:24 PM [facility] AST (SGOT) 31 10 - [...] t [facility] [address] [place] [address], from Last 3 Months or Most Recently Relevant to Health Maintenance Insurance [facility] Member Subscriber Plan / Payer (Ef fective 2019-Present) Name:Sienna Mendez Relation to Subscriber:Self Name:Sienna Mendez Payer ID:[id number] Group ID:[id number] Type:Not on file Address: [address] [place] [id number] Care Teams Sql Architect Relationship Specialty Start Date End Date Tony Arreola MD [address] [place] [address] [address] [place], [phone] PCP - General Family Medicine 12/14/24
--- OUTSIDE RECORDS SUMMARY | 2025-09-10 07:22 | XMS_ITS | Encounter Summary ---
Author Organization [employer] Address [address] [place] [address] Care Team Providers Care Early Years Teacher Name Role Phone Tony Arreola MD Primary Care Provider [phone] Encounter Details Date Type Department Care Team (Late st Contact Info) Description 11/29/2024 Lab Requisition [facility] - Main Lab [address] [place] [address] Tony Arreola MD [address] [facility] [address] [place], [address] Weakness; Unspecified dementia, unspecified severity, without [...] EST 12/02/2024 10:33 AM EST us Tony Arroela MD LAB BLOOD ORDERABLES Final Resul t [facility] [address] [place] [address], * (ABNORMAL) Complete blood count (12/02/2024 7:21 AM EST) [facility] WBC 6.8 4.8 - 10.8 K/mcL [...] LAB HEMETOLOGY METHOD 12/02/2024 10:[address] [facility] Blood Venous blood specimen / Unknown Venipuncture / Unknown 12/02/2024 7:21 AM EST 12/02/2024 10:33 AM EST us Tony Arreola MD LAB BLOOD ORDERABLES Final Resul t [facility] [address] [place] [address], documented in this encounter Visit Diagnoses Diagnosis Weakness Other malaise and fatigue Unspecified dementia, unspecified severity, without behavioral disturbance, psychotic disturbance, mood disturbance, and anxiety (CMS/HCC V24, CMS/HCC V28) documented in this encounter Care Teams Early Years Teacher Relationship Specialty Start Date End Date Tony Arreola MD [address] [place] [address] [address] [place], [phone] PCP - General Family Medicine 12/14/24 documented as of this encounter
--- OUTSIDE RECORDS SUMMARY | 2025-09-10 07:22 | XMS_ITS | Encounter Summary ---
Author Organization [employer] Address [address] [facility] 7t [place] [address] Care Team Providers Care Chain Person Name Role Phone Myah Singh MD Primary Care Provider [phone] Encounter Details Date Type Department Care Team ([facility] st Contact Info) Description 03/26/2025 Telephone [facility] [address] [place], [place] [phone] Myah Singh MD [address] [place], [place] [phone] Social History Tobacco Use Types Packs/Day Years [...] documented as of this encounter Care Teams Chain Person Relationship Specialty Start Date End Date Myah Singh MD [address] [place] [address] PCP - General Family Medicine 11/08/12 [facility] 12/31/24 07/29/25 documented as of this encounter
--- OUTSIDE RECORDS SUMMARY | 2025-09-10 07:22 | XMS_ITS | Encounter Summary ---
Author Organization [employer] Address [address] [facility] [address] [place] [address] Care Team Providers Care Head Men'S Golf Coach Name Role Phone Myah Singh MD Primary Care Provider [phone] Reason for Visit * Reason Comments Med Refill Encounter Details Date Type Department Care Team (Late st Contact Info) Description 10/22/2024 Refill [facility] [address] [place], [place] [phone] Myah Singh MD [address] [place], [place] [phone] Allergic rhinitis, unspecified seasonality, unspecified trigger Social [...] documented as of this encounter Care Teams Head Men'S Golf Coach Relationship Specialty Start Date End Date Myah Singh MD [address] [place] [address] PCP - General Family Medicine 11/08/12 [facility] 12/31/24 07/29/25 documented as of this encounter
--- OUTSIDE RECORDS SUMMARY | 2025-09-10 07:22 | XMS_ITS | Encounter Summary ---
Author Organization [employer] Address [address] [facility] 7[address] [place] [address] Care Team Providers Care Associate Account Director Name Role Phone Myah Singh MD Primary Care Provider [phone] Reason for Visit * Reason Comments Med Refill Encounter Details Date Type Department Care Team (Late st Contact Info) Description 11/29/2023 Refill [facility] [address] [place], [place] [phone] Myah Singh MD [address] [place], [place] [phone] Vitamin D deficiency Social History Tobacco Use [...] documented as of this encounter Care Teams Associate Account Director Relationship Specialty Start Date End Date Myah Singh MD [address] [place] [address] PCP - General Family Medicine 11/08/12 [facility] 12/31/24 07/29/25 documented as of this encounter
--- OUTSIDE RECORDS SUMMARY | 2025-09-10 07:22 | XMS_ITS | Data Portability ---
Author Organization [facility], Main Office Address [address] [facility], [address] [place] [address] Care Team Providers Care Patient Registration Clerk Name Role Phone [facility] OTHER Assessment No assessment recorded. Plan [...] and Address Organization Details Recorded Time Asthma [id number] Active 2017 ANGELITA VANG [address] [facility], [address], [place], [address] , [facility] 8 15:12:32 Dementia 92632676 Active 2017 ANGELITA VANG [address] [facility], [address], [place], [address] , [facility] 8 15:12:53 Depressiv e disorder 07501947 Active 2017 ANGELITA VANG [address] [facility], [address], [place], [address] , [facility] 8 15:13:06 Coronary arteriosc lerosis 77917484 Active 2017 history of NSTEMI ANGELITA VANG [address] [facility], [address], [place], [address] , [facility] 8 15:13:24 Hyperlipi demia 37091025 Active 2017 ANGELITA VANG [address] [facility], [address], [place], [address] , [facility] 8 15:14:00 Essential hypertens ion 33809597 Active 2017 ANGELITA VANG [address] [facility], [address], [place], [address] , [facility] 8 15:14:57 History of cerebrova scular accident 215620856 Active 2017 right sided weakness ANGELITA VANG [address] [facility], [address], [place], [address] , [facility] 8 15:15:19 Influenza 9201333 Active 2017 ANGELITA VANG [address] [facility], [address], [place], [address] , [facility] 8 16:02:49 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 Active 2017 ANGELITA VANG [address] [facility], [address], [place], [address] , [facility] 8 16:05:54 Osteoporo sis 34730655 Active 2017 ANGELITA VANG [address] [facility], [address], [place], [address] , [facility] 8 16:06:06 Gastroeso phageal reflux disease 698840839 Active 2017 ISABELLE ALYSSA FLIGHT OPERATIONS INSPECTOR [address] [place] [address], [address], [place], [address] , [facility] 8 16:08:23 Asthenia 98602518 Active 2017 Thais Rocha MD [address] [place] [address], [facility] [address], [place], [address] , [facility] 8 13:54:57 Acute kidney injury 47060686 Active 2017 Thais Rocha MD [address] [place] [address], [address], [place], [address] , [facility] 8 14:30:45 Type 2 diabetes mellitus 35794035 Active 2023 Not Available [facility] 5 10:33:31 Muscle weakness 12781735 Active 2023 Not Available [facility] 5 10:33:31 Difficult y walking 795924437 Active 2023 Not Available [facility] 5 10:33:32 Dyspnea 208325829 Active 2023 Not Available [facility] 5 10:33:32 Anxiety disorder 606189492 Active 2023 Not Available [facility] 5 10:33:33 Insomnia 740329035 Active 2023 Not Available [facility] 5 10:33:34 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 08362268529 9100 Active 2023 Not Available [facility] 5 10:33:34 Cerebrova scular disease 63007025 Active 2023 Not Available [facility] 5 10:33:35 Fall Active 2023 Not Available [facility] 5 10:33:36 Allergic contact dermatiti s 253908645 Active 2023 Not Available [facility] 5 10:33:37 Diaphragm atic hernia 41543594 Active 2023 Not Available [facility] 5 10:33:38 Constipat ion 62149376 Active 2023 Not Available [facility] 5 10:33:38 Coronavir us infection 356562124 Active 2023 Not Available [facility] 5 10:33:39 Dementia associate d with another disease 440979381 Active 2023 Not Available [facility] 5 10:33:39 Chronic kidney disease stage 3 834948024 Active 2023 Not Available [facility] 5 10:33:39 Chronic kidney disease stage 3A 856624013 Active 2024 Tony Arreola MD [address] [facility], [address], [place], [address] , [facility] 5 08:58:43 Cirrhosis of liver 27913022 Active 2024 Tony Arreola MD [address] [facility], [address], [place], [address] , [facility] 5 08:58:50 Aortic valve stenosis 94501478 Active 2024 Tony Arreola MD [address] [facility], [address], [place], [address] , [facility] 5 08:59:06 Diabetes mellitus 63059280 Active 2024 Tony Arreola MD [address] [facility], [address], [place], [address] , [facility] 5 08:59:17 Delusiona l disorder 43229579 Active 2024 Not Available [facility] 5 12:34:52 Problem Notes None recorded. Medical Equipment None Reported. Allergies Allergen ID Allergen Name Allergen Category Reaction Reaction Severity Criticality Documentation Date Start Date Code Code System Note Provider Name and Address Organization Details Recorded Time 60355 Reglan medicatio n Not available Not available Not available 12/19/20242023 9230 RxNorm Not Available [facility] 5 10:33:44 9455 tetracain e medicatio n Not available Not available Not available 01/03/20182023 40647 RxNorm Not Available [facility] 5 10:33:44 9456 benzocain e medicatio n Not available Not available Not available 01/03/20182023 1399 RxNorm Not Available [facility] 5 10:33:44 9457 butamben medicatio n Not available Not available Not available 01/03/20182023 56452 RxNorm Not Available [facility] 5 10:33:44 9458 morphine medicatio n Not available Not available Not available 01/03/20182023 7052 RxNorm Not Available [facility] 5 10:33:44 9459 metoclopr amide Not available Not available Not available Not available 01/03/2018 6915 RxNorm ISABELLE SHAH, FLIGHT OPERATIONS INSPECTOR [address] [facility], [address], [place], [address], [facility] 8 15:01:21 9460 ceftazidi me anhydrous medicatio n Not available Not available Not available 01/03/20182023 15745 84 RxNorm Not Available [facility] [...] Available Not Available Not Avai lable Acid Vice President [employer] (omeprazole ) 20 mg capsule,del ayed release [...] 12/02/2024 122/57 mm[Hg] Tony Arreola MD [address] [facility], [address], [place], [address], [facility] 12/02/2024 08:50:04 Date Recorded Heart rate Respiratory rate Body temperature Oxygen saturation Oxygen saturation in Arterial blood by Pulse oximetry Systolic And Diastolic Provider Name and Address Organization Details Last Updated DateTime 5 67 /min 14 /min 97.9 [degF] 96 % 96 % 102/49 mm[Hg] HAKEEM JOHNSON NP [address] [facility], [address], [place], [address], [facility] 5 14:47:00 Date Recorded Body height Body mass index (BMI) Body weight Heart rate Respiratory rate Body temperature Oxygen saturation Oxygen saturation in Arterial blood by Pulse oximetry Systolic And Diastolic Provider Name and Address Organization Details Last Updated DateTime 5 152.4 cm 32.9 kg/m2 97670.9 6 g 72 /min 20 /min 97.3 [degF] 95 % 95 % 114/63 mm[Hg] Thais Rocha MD [address] [facility], [address], [place], [address], [facility] 5 18:57:01 Social History Question Answer Notes LastModified by Organizat ion Details LastModified Time Tobacco Smoking Status Former Smoker Thais Rocha MD [address] [facility], [address], [place], [address], [facility] 01/04/2018 14:12:51 Do You Have An [...] Do You Have A Medical Power Of Player Development Manager? Yes Information not available 01/04/2018 What Was [...] ICD10 Code Diagnosis IMO Codes Diagnosis Note [id number] ANGELITA VANG [address] [facility] [place] [address] 01/03/2018 15:00:09 01/12/2018 16:14:28 Influenza 5533236 J10.89 Flu A + in hospitalTa miflu was completedm onitor Essential hypertension 14229831 I10 lisinopril 20 mg qdlasix 20 mg qdnorvasc 5 mg qdmonitor b/p and labs Hyperlipidemia 59567044 E78.2 atorvastat in 20 mg qdmonitor labs Depressive disorder 3548 9007 F32.0 prozac 40 mg qdremeron 15 mg qdtrazodon e 50 mg qdhaldol 1 mg qdneg consult prnmonitor mood Dementia 67450389 F02.80 namenda 10 mg bidaricept 10 mg qdmonitor mood Coronary arteriosclerosis 33023591 I25.10 ASA 81 mg qdmonitor Osteoporosis 23503236 M8 1.0 calcium carbonate/ vit. D3 600/vit d bidmonitor labs Bladder mu scle dysfunction - overactive 883700560 N32.81 myrbetriq 50 mg qdincontin ent of urinemonit or History of cerebrovascular accident 191210941 Z86.73 right sided weaknessmo nitor Asthma 107087237 J45.20 zyrtec 10 mg qdmonitor resp status Gastroesop hageal reflux disease 381706230 K21.9 omeprazole 40 mg qdmonitor Asthenia 76631742 R53.1 PT/OT eval and [facility]ambul ate [facility] [address] [facility] [address] [place] [address] rd [place] [address] 01/04/2018 13:51:14 01/12/2018 16:19:02 Asthenia 13475961 R53.1 Deconditio david after acute illness, needs PT/OT for strengthen ing and gait training. At baseline ambulates with walker. Anticipate less than 30 day stay and return home. Influenza 1169005 J10.89 Positive for influenza A in hospital, completed course of Tamiflu.Mo nitor Essential hypertension 19338780 I10 Stable on lisinopril 20 mg qd, lasix 20 mg qd and norvasc 5 mg qd.monitor BP and labs Hyperlipidemia 74103510 E78.2 Continue atorvastat in 20 mg qdmonitor chol with PCP. Depressive disorder 3548 9007 F32.0 Continue prozac 40 mg qd, remeron 15 mg qd, trazodone 50 mg qd and haldol 1 mg qd. Monitor mood and consider NEG consult Dementia 49763043 F02.80 Continue namenda 10 mg bid and aricept 10 mg qd. Expect continued decline. Provide supportive care. Coronary arteriosclerosis 78731025 I25.10 Continue ASA 81 mg qd and statin. F/U with Cardio prn Osteoporosis 39908155 M8 1.0 Continue calcium carbonate/ vit. D3 600/vit d bid Bladder mu scle dysfunction - overactive 922380639 N32.81 Continue myrbetriq 50 mg qdmonitor History of cerebrovascular accident 156876797 Z86.73 Residual right sided weakness. PT/OT as above. Follow for recurrence . Asthma 012532210 J45.20 Continue zyrtec 10 mg qdmonitor resp status Gastroesop hageal reflux disease 616169103 K21.9 No current sxs, continue omeprazole 40 mg qdmonitor Acute kidney injury 1466 9001 N17.8 Improved in hospital, not 100% nl. Will recheck today. May have baseline mild CRF. 48509 ANGELITA VANG MICHELLE [address] [place] [address] [place] [address] 01/08/2018 13:49:05 01/12/2018 16:24:28 Cough 62161430 R05 bilateral lungs with wheezes and rhonchi throughout cough noted but non productive had flu in hospitalPP D was planted and is 30 mmchest x-ray orderedduo nebs ordered qid x3 days and prnmonitor for worsening symptoms 06219 ANGELITA VANG MICAELA MICHELLE [address] [place] [address] 01/10/2018 13:57:28 01/12/2018 16:27:43 Cough 53937289 R05 continues with cough but now has yellow sputumstat es she feels betterbila teral lungs are clear nowcontinu e to monitor [address] Tony Arreola MD [address] [address] 01/15/2018 10:39:11 01/15/2018 13:20:57 Acute low back pain 675056308 M54.5 x ray L-S spineproba ble mild left sacroillii tisPT OT eval and treattylen ol for paincontin ue to monitorcon isder SI brace 24068 ANGELITA VANG [address] [address] 01/24/2018 13:45:00 01/25/2018 11:35:41 Dementia 46981242 F02.80 namenda 10 mg bidaricept 10 mg qdfollow up with PCP Hyperlipidemia 87120398 E78.2 atorvastat in 20 mg qdfollow up with PCP Essential hypertension 55912882 I10 lisinopril 20 mg qdlasix 20 mg qdnorvasc 5 mg qdfollow up with PCP Gastroesop hageal reflux disease 224511165 K21.9 omeprazole 40 mg qdfollow up with PCP Osteoporosis 65229625 M8 1.0 calcium carbonate/ vit. D3 600/vit d bidtylenol prn pain follow up with PCP Depressive disorder 3548 9007 F32.0 prozac 40 mg qdremeron 15 mg qdtrazodon e 50 mg qdhaldol 1 mg qdfollow up with PCP Asthma 346649913 J45.20 zyrtec 10 mg qdfollow up with PCP Coronary arteriosclerosis 07713870 I25.10 ASA 81 mg qdfollow up with PCP Bladder mu scle dysfunction - overactive 633639434 N32.81 myrbetriq 50 mg qdfollow up with PCP History of cerebrovascular accident 726571312 Z86.73 right sided weaknessfo llow up with PCP [id number] Tony Arreola MD [facility] [address] [place], [place] [address] 12/02/2024 08:34:30 12/03/2024 11:00:58 Asthenia 20455441 R53.1 PT OT Eval and treatmonit or fall risk and need for increased support in community Essential hypertension 07674290 I10 lisinopril 20 mg qdnorvasc 5 mg qdmonitor bp and need to titrate Hyperlipidemia 43338545 E78.2 lipitor 20 mg qdcontinue d Depressive disorder 3548 9007 F32.0 prozac 40 mg qdremeron 15 mg qdmonitor moodsee above Dementia 32995514 F02.80 baseline dementiain voke [facility] - granddaugh tercontinu e supportive caremonito r for behaviorsp sych eval prnaricept 10 mg qdnamenda 10 mg bidof note currently on haldol qd - will await psych rec Coronary arteriosclerosis 02068343 I25.10 lipitor 20 mg qdasa 81 mg qdmonitor forupdate cards with concerns Gastroesop hageal reflux disease 762954741 K21.9 omeprazole 40 mg qdmonitor for sx relief COVID-19 041306335 U07.1 limited informatio n will request dc summary appears dx with covid now completed treatment Diabetes mellitus 692437 09 E11.9 carrying dx added to PMHjardian ce 10 mg qdmonitor blood glucose prn Aortic valve stenosis 60 385184 I35.0 limited informatio n availabler equest notes from PCP Cirrhosis of liver K74.69 limited informatio n availabler equest notes from PCP Chronic ki dney disease stage 3A 796405313 N18.31 monitor renal functionav oid nephrotoxi c meds as ablenephro consult prn 110335 HAKEEM JOHNSON NP [facility] [address] [place] [address] 12/09/2024 14:46:28 12/11/2024 08:32:16 Asthenia 59834047 R53.1 PT OT Eval and treatmonit or fall risk and need for increased support in community Dementia 50504795 F02.80 baseline dementiain voke HCP - granddaugh tercontinu e supportive caremonito r for behaviorsp sych eval prnaricept 10 mg qdnamenda 10 mg bidof note currently on haldol qd - will await psych rec COVID-19 279959058 U07.1 limited informatio n appears dx with covid now completed treatmentm onitor for sequelae Essential hypertension 23308392 I10 BP soft the past week or so.CBC today stable, chem pendingMai ntain fluidsCurr ently on:lisinop ril 20 mg qdnorvasc 5 mg qd - reduce to 2.5 mg qdmonitor bp and need to titrate Hyperlipidemia 78846855 E78.2 Continue lipitor 20 mg qdConsider stopping, ? benefit vs, risk in frail elder Depressive disorder 7648 9007 F32.0 prozac 40 mg qdremeron 15 mg qdmonitor moodsee above Coronary arteriosclerosis 96284171 I25.10 Continue:l ipitor 20 mg qdasa 81 mg qdmeds for BP controlmon itor VS, CP statusupda te cards with concerns Gastroesop hageal reflux disease 989316126 K21.9 Continue omeprazole 40 mg qdmonitor for sx relief Diabetes mellitus 464016 09 E11.9 carrying dx added to PMHjardian ce 10 mg qdmonitor blood glucose - bid x 7 days, then re-eval.ch yovany A1C prn Aortic valve stenosis 60 368573 I35.0 limited informatio n availabler equest notes from PCP Cirrhosis of liver K74.69 limited informatio n availabler equest notes from PCP Chronic ki dney disease stage 3A 619405341 N18.31 monitor renal functionav oid nephrotoxi c meds as ablenephro consult prn [id number] MD RICARDA Engle [address] [place] [address] 12/19/2024 18:31:17 12/20/2024 16:13:52 Diabetes mellitus 19459663 E11.9 With low sugars since here.Will change fingerstic ks to fasting on Mon & and prn (compromis e with granddaugh ter from my preference of M/W/F).Con tinue Jardiance 10 mg qd. [id number] FLO LEE, SHAHZAD-C RICARDA [address] [place] [address] 12/24/2024 09:08:15 12/31/2024 08:39:05 Diabetes mellitus 72645725 E11.9 With low sugars since here.[place] nue Jardiance 10 mg qd.monitor with VNAconside r decrease in jardiance if BS remains < 100 given age of 89 Asthenia 19158753 R53.1 continue PT OTworking on doing stairsfami ly very supportive VNA services in place per Dementia 88547311 F02.80 baseline dementiain voke HCP - granddabreanna teraricept 10 mg qdnamenda 10 mg bidhaldol once daily COVID-19 473660748 U07.1 resolved Essential hypertension 74231453 I10 improved with reduced dose of amlodipine lisinopril 20 mg qdnorvasc 2.5 mg qdmonitor bp and consider decrease outptpermi ssive BP goals for frail elderly of < 160/ 90 Hyperlipidemia 92795061 E78.2 Continue lipitor 20 mg qdlipids yearly outpt Depressive disorder 8438 9007 F32.0 prozac 40 mg qdremeron 15 mg qdmonitor mood outpt Coronary arteriosclerosis 11812378 I25.10 Continue:l ipitor 20 mg qdasa 81 mg qdmeds for BP control Gastroesop hageal reflux disease 219548141 K21.9 Continue omeprazole 40 mg qdmonitor for sx relief outpt Aortic valve stenosis 60 731803 I35.0 limited informatio n availablen o CP or sob here Cirrhosis of liver 17790 007 K74.69 limited informatio n available Chronic ki dney disease stage 3A 514747594 N18.31 monitor renal function, stable 12/23 labsavoid nephrotoxi c meds as ablenephro consult prn Conjunctivitis 3872903 H 10.9 erythro ophthalmic qid x 7 daysmonito r for improvemen t [id number] MICHAEL RAMOS [facility] [address] [place] [address] 12/27/2024 09:21:35 12/31/2024 09:41:18 Diabetes mellitus 65713720 E11.9 With low sugars since here.[place] nue Jardiance 10 mg qd.monitor with VNAconside r decrease in jardiance if BS remains < 100 given age of 89f/up with pcp Asthenia 78127763 R53.1 completed STR stayable to do stairshas LITHOGRAPHER APPRENTICE 6 hr/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 at homefamily very supportive VNA services in place per SWf/up with pcp Dementia 96639095 F02.80 baseline dementiain [facility] e supportive care with INTERACTIVE MEDIA MARKETING STRATEGIST 6 hr per day at homearicep t 10 mg qdnamenda 10 mg bidhaldol once dailyf/up with pcp COVID-19 140870741 U07.1 resolvedf/ up with pcp Essential hypertension 06242410 I10 improved with reduced dose of amlodipine lisinopril 20 mg qdnorvasc 2.5 mg qdmonitor bp and consider decrease outptpermi ssive BP goals for frail elderly of < 160/ 89f/up with pcp Hyperlipidemia 26124726 E78.2 Continue lipitor 20 mg qdlipids yearly outptf/up with pcp Depressive disorder 0368 9007 F32.0 prozac 40 mg qdremeron 15 mg qdmonitor mood outptf/up with pcp Coronary arteriosclerosis 60134808 I25.10 Continue:l ipitor 20 mg qdasa 81 mg qdmeds for BP controlf/u p with pcp Gastroesop hageal reflux disease 857941404 K21.9 Continue omeprazole 40 mg qdmonitor for sx relief outptf/up with pcp Aortic valve stenosis 60 238609 I35.0 limited informatio n availablen o CP or sob heref/up with pcp Cirrhosis of liver 007 K74.69 limited informatio n availablef /up with pcp Chronic ki dney disease stage 3A 669031244 N18.31 monitor renal function, stable 12/23 labsavoid nephrotoxi c meds as ablenephro consult prnf/up with pcp Conjunctivitis 8849821 H 10.9 erythro ophthalmic qid x 7 [...] Gonzalez Member ID Guarantor Name 12/31/2024 1 [facility] - DOS ON OR AFTER 2023 - MEDICARE ADVANTAGE [place] (MEDICARE REPLACEMENT/ADV ANTAGE - PPO) Sienna Mendez [id number] Elena Hurtado 12/02/2024 1 [facility] - DOS PRIOR TO 2023 - DUAL ELIGIBLE (MEDICARE REPLACEMENT/ADV ANTAGE - HMO) Sienna Mendez [id number] Elena Hurtado 12/31/2024 2 [place] [facility] Sinena Andrea [id number] Elena Hurtado Notes Date Note Type Note [...] therapy eval and treat Tony Arreola MD [address] [place] [address], [address], [place], [address], [facility] 12/02/2024 09:20:00 12/09/2024 text/html Sienna is seen [...] issues reported by nsg. Case discussed with LITHOGRAPHER APPRENTICE, who reports she did not eat as well today compared to other days. No other concerns. VSS, BP on the soft side the past week.Labs stable, chem pending today.No BS documented PMH: dementia , crf stage 3, cirrhosis, , dm, htn, cad, gerd, hld, depression, hx CVA HAKEEM JOHNSON NP [address] [facility], [facility] [address], [place], [address], [facility] 12/09/2024 15:01:58 12/19/2024 text/html I am asked to see this 89 yo sri lankan speaking woman rayshawn because her granddaughter is [...] depression, and dementia. Thais Rocha MD [address] [facility], [address], [place], [address], [facility] 12/19/2024 19:10:59 12/24/2024 text/html Patient is an [...] GERD, depression, and dementia. ATIF RAMOSC [address] [facility], [address], [place], [address], [facility] 12/29/2024 16:21:25 12/27/2024 text/html Patient is an [...] and received 6 hrs per day of LITHOGRAPHER APPRENTICE care. Seen today and she is medically clear for dc home with meds and services. Her PMH includes HTN, depression, hx of CVA, CAD s/p NSTEMI, cirrhosis, asthma, HLD, CKD stage 3B, GERD, depression, and dementia. ATIF RAMOSC [address] [facility], [address], [place], [address], [facility] 12/27/2024 09:38:55 OBGyn Episode No OBEpisode recorded.
--- OUTSIDE RECORDS SUMMARY | 2025-09-10 07:22 | XMS_ITS | Encounter Summary ---
Author Organization [employer] Address [address] [place] [address] Care Team Providers Care Cloth Bleaching Range Operator Chief Name Role Phone Tony Arreola MD Primary Care Provider [phone] Encounter Details Date Type Department Care Team (Late st Contact Info) Description 02/24/2025 Lab Requisition [facility] - Main Lab [address] [facility] [place] [address] Venus Mayberry MD [address] [place], [place] [phone] Essential (primary) hypertension; Type 2 diabetes mellitus [...] * Vitamin B12 (02/24/2025 6:34 AM EDT) [facility] Vitamin B-12 324 250 - 900 pcg/mL LAB CHEMISTRY METHOD 02/24/2025 12:24 PM EDT [facility] Blood Venous blood specimen / Unknown Venipuncture / Unknown 02/24/2025 6:34 AM EDT 02/24/2025 10:44 AM EDT us Venus Mayberry MD LAB BLOOD ORDERABLES Final Resul t Performing Organization Address City/[facility]/ZIP Co de Phone Number [facility] [address] [place] [address], [place] [phone] * Folate (02/24/2025 6:34 AM EDT) [facility] Folate 11.3 2.8 - 17.0 ng/ml LAB CHEMISTRY METHOD 02/24/2025 12:24 PM EDT [facility] Blood Venous blood specimen / Unknown Venipuncture / Unknown 02/24/2025 6:34 AM EDT 02/24/2025 10:44 AM EDT us Venus Mayberry MD LAB BLOOD ORDERABLES Final Resul t Performing Organization Address City/[facility]/ZIP Co de Phone Number [facility] [address] [place] [address], [place] [phone] * (ABNORMAL) Vitamin D 25 hydroxy (02/24/2025 [...] ORDERABLES Final Resul t Performing Organization Address [facility] Co de Phone Number [facility] [address] [place] [address], * Thyroid stimulating hormone (02/24/2025 6:34 AM EDT) [facility] TSH 1.44 0.40 - 4.00 mcIU/mL LAB CHEMISTRY METHOD 02/24/2025 1:13 PM EDT [facility] Blood Venous blood specimen / Unknown Venipuncture / Unknown 02/24/2025 6:34 AM EDT 02/24/2025 10:44 AM EDT us Venus Mayberry MD LAB BLOOD ORDERABLES Final Resul t Performing Organization Address [facility] de Phone Number [facility] [address] [place] [address], [place] [phone] * Hemoglobin A1c (02/24/2025 6:34 AM EDT) [facility] Hemoglobin A1C 5.9 <6.5 % LAB CHEMISTRY [...] [facility] [address] [place] [address], [place] [phone] * (ABNORMAL) Comprehensive metabolic panel (02/24/2025 6:34 AM EDT) Sodium 142 133 - 145 mmol/L LAB CHEMISTRY METHOD 02/24/2025 12:24 PM EDT [facility] Potassium 4.1 3.5 - 5.5 mmol/L LAB CHEMISTRY METHOD 02/24/2025 12:24 PM [facility] Chloride 108 96 - 110 mmol/L LAB CHEMISTRY METHOD 02/24/2025 12:24 PM [facility] CO2 28 21 - 32 mmol/L LAB CHEMISTRY METHOD 02/24/2025 12:24 PM [facility] Anion Gap 6 3 - 11 LAB CHEMISTRY METHOD 02/24/2025 12:24 PM [facility] Glucose 91 70 - 100 mg/dL LAB CHEMISTRY METHOD 02/24/2025 12:24 PM [facility] BUN 30(H) 5 - 25 mg/dL LAB CHEMISTRY METHOD 02/24/2025 12:24 PM [facility] Creatinine 1.02 0.50 - 1.10 mg/dL LAB CHEMISTRY METHOD 02/24/2025 12:24 PM [facility] eGFR 53(L) >=60 mL/min/1. 73m2 LAB CHEMISTRY METHOD 02/24/2025 12:24 PM [facility] Comment:Calculation based on the Chronic Kidney Disease Epidemiology Collaboration (CKD-EPI) equation refit without adjustment for race. BUN/Creatinine Ratio 29.4 LAB CHEMISTRY METHOD 02/24/2025 12:24 PM [facility] Calcium 10.5 8.5 - 10.5 mg/dL LAB CHEMISTRY METHOD 02/24/2025 12:24 PM EDT [facility] AST (SGOT) 31 10 - 42 unit/L LAB CHEMISTRY METHOD 02/24/2025 12:24 PM EDT [facility] ALT (SGPT) 36 10 - 60 unit/L LAB CHEMISTRY METHOD 02/24/2025 12:24 PM EDT [facility] Alkaline Phosphatase 82 42 - 121 unit/L LAB CHEMISTRY METHOD 02/24/2025 12:24 PM EDT [facility] Total Protein 6.8 6.0 - 8.0 g/dL LAB CHEMISTRY METHOD 02/24/2025 12:24 [facility] Albumin 3.1(L) 3.2 - 5.0 g/dL LAB CHEMISTRY METHOD 02/24/2025 12:24 PM EDT [facility] Total Bilirubin 0.4 0.0 - 1.4 mg/dL LAB CHEMISTRY METHOD 02/24/2025 12:24 PM EDT [facility] Blood Venous blood specimen / Unknown Venipuncture / Unknown 02/24/2025 6:34 AM EDT 02/24/2025 10:44 AM EDT us Venus Mayberry MD LAB BLOOD ORDERABLES Final Resul t [facility] [address] [place] [address], * (ABNORMAL) Complete blood count (02/24/2025 6:34 AM EDT) WBC 6.0 4.8 - 10.8 K/mcL LAB HEMETOLOGY METHOD 02/24/2025 1:12 PM EDT [facility] RBC 4.80 3.80 - 4.80 M/mcL LAB HEMETOLOGY METHOD 02/24/2025 1:12 PM [facility] Hemoglobin 14.3 11.5 - 16.0 g/dL LAB HEMETOLOGY METHOD 02/24/2025 1:12 PM [facility] Hematocrit 45.6 35.0 - 47.0 % LAB HEMETOLOGY METHOD 02/24/2025 1:12 PM [facility] MCV 94.2 79.0 - 98.0 FL LAB HEMETOLOGY METHOD 02/24/2025 1:12 PM [facility] MCH 29.5 27.0 - 32.0 pcg LAB HEMETOLOGY METHOD 02/24/2025 1:12 PM [facility] MCHC 31.4(L) 32.0 - 37.0 g/dL LAB HEMETOLOGY METHOD 02/24/2025 1:12 PM [facility] RDW 14.7 11.0 - 15.0 % LAB HEMETOLOGY METHOD 02/24/2025 1:12 PM [facility] Platelets 154 130 - 400 K/mcL LAB HEMETOLOGY METHOD 02/24/2025 1:12 PM [facility] MPV 11.7(H) 7.0 - 11.0 FL LAB HEMETOLOGY METHOD 02/24/2025 1:12 PM [facility] NRBC 0.0 <1.0 % LAB HEMETOLOGY METHOD 02/24/2025 1:12 PM [facility] NRBC Absolute 0.00 <0.10 K/mcL LAB HEMETOLOGY METHOD 02/24/2025 1:12 PM [facility] Blood Venous blood specimen / Unknown Venipuncture / Unknown 02/24/2025 6:34 AM EDT 02/24/2025 10:44 AM EDT Venus Mayberry MD LAB BLOOD ORDERABLES Final Resul t [facility] ([facility] [address] [place] [address], documented in this encounter Visit Diagnoses Diagnosis Essential (primary) hypertension Unspecified essential hypertension Type 2 diabetes mellitus without complications (CMS/HCC V24, CMS/HCC V28) documented in this encounter Care Teams Cloth Bleaching Range Operator Chief Relationship Specialty Start Date End Date Tony Arreola MD [address] [place] [address], [phone] PCP - General Family Medicine 12/14/24 documented as of this encounter
--- OUTSIDE RECORDS SUMMARY | 2025-09-10 07:22 | XMS_ITS | Encounter Summary ---
Author Organization [employer] Address [address] [facility] 7[address] [place] [address] Care Team Providers Care Underbaster Name Role Phone Myah Singh MD Primary Care Provider Reason for Visit * Reason Comments Med Refill Encounter Details Date Type Department Care Team (Late st Contact Info) Description 05/22/2024 Refill [facility] [address] [place], [place] [phone] Myah Singh MD [address] [place], [place] [phone] Social History Tobacco Use Types Packs/Day Years [...] documented as of this encounter Care Teams Underbaster Relationship Specialty Start Date End Date Myah Singh MD [address] [place] [address] PCP - General Family Medicine 11/08/12 [facility] 12/31/24 07/29/25 documented as of this encounter
[2025-09-10 12:25] LABS: MANUAL DIFF FLAG NO
[2025-09-10 12:32] LABS: Hematocrit 38.9 % (37.0-47.0); Hemoglobin 12.6 g/dl (12.0-16.0); Imm Gran Abs Auto 0.01 X10*3/uL (0.00-0.03); Imm Gran Pct Auto 0.2 % (0.0-0.4); Lymphocytes Absolute Auto 0.9 X10*3/uL (1.2-4.9); Mean Corpuscular HGB Conc 32.4 g/dl (31.0-35.0); Mean Corpuscular Hemoglobin 29.2 pg (27.0-33.0); Mean Corpuscular Volume 90.0 fL (80.0-98.0); NRBC Abs Auto 0.000 X10*3/uL (0.0-0.012); NRBC Pct Auto 0.0 /100WBC (0.0-0.2); Platelet Count 135 X10*3/uL (160-400); Red Blood Count 4.32 X10*6/uL (4.20-5.50); White Blood Count 5.3 X10*3/uL (4.8-10.8)
[2025-09-10 12:41] LABS: Anion Gap 11 (12-20); Blood Urea Nitrogen 20 mg/dL (9-16); Calcium 9.3 mg/dL (8.4-10.2); Carbon Dioxide 26 mmol/L (22-29); Chloride 113 mmol/L (96-108); Estimated Glomerular Filt Rate 51; Potassium 3.7 mmol/L (3.3-5.1); Sodium 146 mmol/L (135-145)
== END 2025-09-10 07:17 | disposition home or self-care (01) ==
LOC: HO.MMNH2L 07:16
PROVIDERS: Visit Provider Student in an Organized Health Care Education/Training Program
DX: E11.22 Type 2 diabetes mellitus with diabetic chronic kidney disease (principal); N18.9 Chronic kidney disease, unspecified
CPT/HCPCS: 36415; 80048; 85025

== ENCOUNTER 2025-09-12 05:37 | Outpatient (REF) | payer OTHER, SELFPAY ==
--- OUTSIDE RECORDS SUMMARY | 2025-09-12 05:40 | XMS_ITS | Clinical Summary ---
Author Organization [facility] Address [address] [address] Care Team Providers Care Compliance Nurse Name Role Phone Unavailable Primary Care Provider [...] -Pt has an upcoming appt with her dairy farmer History of cerebrovascular accident 01/07/2023 Overview (01/23/2023): Last Assessment & Plan: -around 2009 previous medical record -TIA in 2015 -Continue working on secondary prevention / risk factor management History of non-ST segment elevation myocardial i nfarction 01/07/2023 Overview (01/23/2023): Last Assessment & Plan: -Oct 2015 -Previously following with [facility] Cardiology, upcoming appt -Continue risk factor mangement [...] Risk: CKD, age, NSTEMI, Hx CVA/TIA, DM2 -Male Infertility Specialist: Previously [facility], pt has a new appt on 01/23/23 [...] to 50 Years) Discontinued 02/23/2015, 10/04/2001 Insurance [facility] ([id number]) [place] [id number] [facility] ([id number])
[2025-09-12 05:41] LABS: MANUAL DIFF FLAG NO
--- OUTSIDE RECORDS SUMMARY | 2025-09-12 05:41 | XMS_ITS | Clinical Summary ---
Author Organization [employer] Address [address] [place] [address] 7[address] [place] [address] Care Team Providers Care Residential Real Estate Sales Manager Name Role Phone Myah Singh MD Primary Care Provider [phone] Allergies Active Allergy Reactions Criticality Noted Date [...] PM EDT): -Oct 2015 -Previously following with [facility] Cardiology, upcoming appt -Continue risk factor mangement Assessment & Plan (01/07/2023 4:34 PM EST): -Oct 2015 -Previously following with [facility] Cardiology, upcoming appt -Continue risk factor mangement [...] cm2. Mild aortic valve regurgitation. -Seen by palaeontologist, Dr. Garcia in [facility], on 07/27/23, since she is not a [...] cm2. Mild aortic valve regurgitation. -Seen by palaeontologist, Dr. Garcia in [facility], on 07/27/23, since she is not a [...] cm2. Mild aortic valve regurgitation. -Seen by palaeontologist, Dr. Garcia in [facility], on 07/27/23, since she is not a [...] -Pt has an upcoming appt with her palaeontologist Assessment & Plan (01/07/2023 5:17 PM EST): - Most recent TTE 10/14/22: There is mild calcification of the aortic valve. There is moderate aortic valve stenosis. The peak aortic gradient is 33 mmHg.The mean gradient is 16 mmHg. There is mild aortic valve regurgitation. -Pt has loud murmur consistent with aortic stenosis -NSTEMI in 2015 -Pt has an upcoming appt with her palaeontologist Anemia 01/07/2023 Assessment & Plan (01/07/2023 5:24 PM EST): - anemia of chronic disease (CKD, cirrhosis) - continue ferrous sulfate - check lab Diabetes mellitus, type 2 12/28/2022 Overview (04/07/2025): Frequent utis from jardiance Assessment & Plan (05/06/2025 11:29 AM EDT): Blood sugars are in range (90-110)without jardance, pt grandaughter and METAL MODEL BUILDER deny any swelling, sob, orthopnea edema or [...] Plan (01/17/2025 5:56 AM EST): -Following with [facility] Sleep medicine clinic, last seen in January [...] periodically Osteopenia 01/07/2013 Anxiety 12/10/2012 Dementia ([facility]/HCC) 12/10/2012 Assessment & Plan (01/17/2025 5:58 AM EST): -multifactorial: Alzeheimer's; Hx CVA and TIA; hx COVID; depression / anxiety -following with Dr. Estevez, neurologist, last seen in Dec 2021, and psychiatrist Dr. Diaz -continue current medications prescribed by both neurologist and psychiatrist -it seems like patient was seeing psychiatrist while staying in the assisted -work on risk factor management -reviewed safety [...] Risk: CKD, age, NSTEMI, Hx CVA/TIA, DM2 -Director Of Science: Previously [facility] pt has a new appt on 01/23/23 [...] Risk: CKD, age, NSTEMI, Hx CVA/TIA, DM2 -Director Of Science: Previously [facility] pt has a new appt on 01/23/23 [...] Risk: CKD, age, NSTEMI, Hx CVA/TIA, DM2 -Director Of Science: [facility] has a new appt on 01/23/23 (Grade [...] Risk: CKD, age, NSTEMI, Hx CVA/TIA, DM2 -Director Of Science: Previously [facility] pt has a new appt on 01/23/23 [...] Risk: CKD, age, NSTEMI, Hx CVA/TIA, DM2 -Director Of Science: Previously [facility], pt has a new appt on 01/23/23 [...] - Followed by [facility], last seen in Jun 2024 - [...] - Followed by [facility], last seen in November 2023 - [...] - Followed by [facility], last seen on 05/31/23. - Continue mirabegron as prescribed, advised to have drug holiday from mirabegron, resume when pt's symptoms worsen Assessment & Plan (05/08/2023 11:04 AM EDT): - in a setting of dementia, DM2, and SGLT-2 inhibitor use - Followed by Dr. Vallecillo, [facility] - Continue mirabegron as prescribed Assessment & Plan (01/07/2023 4:51 PM EST): - in a setting of dementia, DM2, and SGLT-2 inhibitor use - Followed by Dr. Vallecillo, [facility] - Continue mirabegron as prescribed Recurrent [...] Assessment & Plan (01/17/2025 6:08 AM EST): -Environmental Intern: Dr. Martinez -Avoid nephrotoxic drugs and use renal dosing. -Recheck renal function today -On Jardiance, at low-dose, 10mg daily. Caution with UTI Assessment & Plan (02/04/2024 1:13 PM EDT): -Environmental Intern: Dr. Martinez -Baseline: 09/26/22 BUN 29; SCr 1.2, eGFR 43, AST 12, ALT 19, AP 91 -Avoid nephrotoxic drugs and use renal dosing. -Recheck renal function today -On Jardiance, at low-dose, 10mg daily. Assessment & Plan (09/10/2023 4:32 PM EDT): -Environmental Intern: Dr. Martinez, last seen in 2016 or 2017. Per caregiver, pt was discharged due to stability -Baseline: 09/26/22 BUN 29; SCr 1.2, eGFR 43, AST 12, ALT 19, AP 91 -Avoid nephrotoxic drugs and use renal dosing. -Recheck renal function today -On Jardiance, at low-dose, 10mg daily. Assessment & Plan (05/08/2023 11:04 AM EDT): -Environmental Intern: Dr. Martinez, last seen in 2016 or 2017. Per caregiver, pt was discharged due to stability -Baseline: 09/26/22 BUN 29; SCr 1.2, eGFR 43, AST 12, ALT 19, AP 91 -Avoid nephrotoxic drugs and use renal dosing. -Recheck renal function today -On Jardiance, at low-dose, 10mg daily. Assessment & Plan (01/07/2023 4:54 PM EST): -Environmental Intern: Dr. Martinze, last seen in 2017 or 2018. Per [...] Type Department Care Team Description 08/09/2025 Refill [facility] [address] [place] [address] Myah Singh MD 08/07/2025 Orders Only GENERIC EXTERNAL DATA DEPARTMENT Provider, Generic External Data 08/04/2025 Refill [facility] [address] [place] [address] Myah Singh MD Type 2 diabetes mellitus with stage 3 chronic kidney disease, without long-term current use of insulin, unspecified whether stage 3a or 3b CKD ([facility]) 07/21/2025 Refill [facility] [address] [place], [place] [phone] Liliana Sears MD 07/21/2025 Refill [facility] [address] [place], [place] [phone] Myah Singh MD Allergic rhinitis, unspecified seasonality, unspecified trigger 07/10/2025 Telephone [facility] [address] [place], [place] [phone] Myah Singh MD Durable Medical Equipment (DME: [...] Whole Blood 90 60 - 115 mg/dL [facility] Comment:METER #: [id number] 08/07/2025 12:2 0 PM EDT 08/07/2025 4:35 PM EDT us Generic External Data Provider LAB BLOOD ORDERAB LES Final Result [facility] [address] [place] [phone] * SARS-CoV-2 RNA, Influenza A/B, and RSV RNA, Ql NAAT (08/07/2025 8:48 AM EDT) Pathologist [facility] Influenza A PCR NEGATIVE Negative [facility] Influenza B PCR NEGATIVE Negative [facility] Resp Syncy Virus RNA Qual PCR NEGATIVE Negative [facility] SARS COV2 PCR NEGATIVE Negative [facility] Comment:All test results mus t be [...] use by authorized laboratories.Testing performed on the [employer] GeneXpert utilizingreal-time RT-PCR.All SARS CoV2 and positive influenza A/B results arereported to [facility]. 08/07/2025 8:48 AM EDT 08/07/2025 8:51 AM EDT Generic External Data Provider LAB MICROBIOLOGY - GENERAL ORDERABLES Final Result [facility] [address] [place] [address] [phone] * Lipid Panel with Reflex to Direct LDL (01/22/2024 12:20 PM EST) Triglycerides 130 <150 mg/dL [facility] Comment:Desirable Triglyceri de: less than 150 mg/dLBorderline High Triglyceride 150-199 mg/dLHigh Triglyceride: 200-499 mg/dLVery High Triglyceride: greater than or equal to 5OO mg/dL Cholesterol 109 <200 mg/dL [facility] Comment:Desirable Cholestero l: less than 200 mg/dLBorderline High Cholesterol: 200-239 mg/dLHigh Cholesterol: greater than 239 mg/dL LDL Cholesterol Calculated 41 <100 mg/dL [facility] Comment:Desirable LDL: less than 100 mg/dLNear Optimal/Above Optimal LDL: 110- 129 mg/dLBorderline High LDL: 130-159 mg/dLHigh LDL: 160-189 mg/dLVery High LDL: greater than or equal to 190 mg/dL HDL Cholesterol 42 >40 mg/dL [facility] Comment:Desirable HDL: great er than 40 mg/dL Note: This HDL assay may give artificially low results in patients with liver disease. Blood 01/22/2024 12:2 0 PM EST 01/22/2024 1:11 PM EST Myah Singh MD LAB BLOOD ORDERABLES Final Resul t [facility] [address] [place] [address] [phone] * (ABNORMAL) POCT glycosylated hemoglobin (Hgb A1c) (09/11/2023 10:29 AM EDT) Hemoglobin A1C 6.2(A) 4.0 - 6.0 % QC Media Lot # [id number] Lot# Expiration Date Blood Capillary blood specimen / Unknown 09/11/2023 10:29 AM EDT Myah Singh MD POINT OF CARE TEST ENTER/EDIT OR DERABLES Final Result from Last 3 Months or Most Recently Relevant to Health Maintenance Insurance [facility] [employer] (O D-SNP) [place] [id number] Care Teams Residential Real Estate Sales Manager Relationship Specialty Start Date End Date Myah Singh MD [address] [place] [address] [place] [address] PCP - General Family Medicine 11/08/12
--- OUTSIDE RECORDS SUMMARY | 2025-09-12 05:42 | XMS_ITS | Patient Health Record ---
Author Organization [facility] Address [address] [place] [address] Care Team Providers Care Public Transit Bus Driver Name Role Phone Samantha GARCIA, Myah Primary Care Provider Cali Bailey [phone] Allergies Allergen (clinical drug ingredient) Drug/Non Drug [...] Notes Problem Gastroesophageal reflux disease without esophagitis (179466942) Gastroesophageal reflux disease without esophagitis (K21.9) Active confirmed Problem Elevated liver enzymes level (139581366) Elevated liver enzymes (R74.8) Active confirmed Problem Constipation (19641508) Constipation, unspecified constipation type (K59.00) Active confirmed Plan Of Treatment Pending Test Test Name Order Date LIVER PROFILE 04/06/2016 Insurance Providers Payer Name Payer Address Payer Phone Subscriber Number Group Number Insured Name Patient Relationship to Insured Coverage Start Date Coverage End Date [facility] [address] [place] [address] [id number] ZITA PAPPAS Self - patient is the insured MEDICARE OF [place] [address] [place] [address] [phone] [id number] ZITA PAPPAS Self - patient is the insured Medical (General) History Medical History History ICD Code GERD--UPPER ENDOSCOPY & COLO NOSCOPY IN 2007--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
--- OUTSIDE RECORDS SUMMARY | 2025-09-12 05:42 | XMS_ITS | Clinical Summary ---
Author Organization [address] [facility] Address [address] [place] [address] Phone Care Team Providers Care Mechanical Test Technician Name Role Phone Tony Arreola MD Primary Care Provider [phone] Social History Tobacco Use Types Packs/Day Years [...] Resul t [facility] [address] [place] [address], * (ABNORMAL) Comprehensive metabolic panel (02/24/2025 6:34 AM EDT) Sodium 142 133 - 145 mmol/L LAB CHEMISTRY METHOD 02/24/2025 12:[address] [facility] Potassium 4.1 3.5 - 5.5 mmol/L LAB CHEMISTRY METHOD 02/24/2025 12:24 PM [facility] Chloride 108 96 - 110 mmol/L LAB CHEMISTRY METHOD 02/24/2025 12:24 PM [facility] CO2 28 21 - 32 mmol/L LAB CHEMISTRY METHOD 02/24/2025 12:24 PM [facility] Anion Gap 6 3 - 11 LAB CHEMISTRY METHOD 02/24/2025 12:24 PM [facility] Glucose 91 70 - 100 mg/dL LAB CHEMISTRY METHOD 02/24/2025 12:24 PM [facility] BUN 30(H) 5 - 25 mg/dL LAB CHEMISTRY METHOD 02/24/2025 12:24 PM [facility] Creatinine 1.02 0.50 - 1.10 mg/dL LAB CHE[facility]STRY [facility] 53(L) >=60 mL/min/1. 73m2 LAB CHEMISTRY METHOD 02/24/2025 12:24 PM [facility] Comment:Calculation based on the Chronic Kidney Disease Epidemiology Collaboration (CKD-EPI) equation refit without adjustment for race. BUN/Creatinine Ratio 29.4 LAB CHEMISTRY METHOD 02/24/2025 12:24 PM [facility] Calcium 10.5 8.5 - 10.5 mg/dL LAB CHEMISTRY METHOD 02/24/2025 12:24 PM [facility] AST (SGOT) 31 10 - [...] Resul t [facility] [address] [place] [address], from Last 3 Months or Most Recently Relevant to Health Maintenance Insurance [facility] [place] MEDICARE Member Subscriber Plan / Payer (Ef fective 2019-Present) Name:Sienna Mendez Relation to Subscriber:Self Name:Sienna Mendez Payer ID:[id number] Group ID:[id number] Type:Not on file Address: [address] [place] [id number] Care Teams Mechanical Test Technician Relationship Specialty Start Date End Date Tony Arreola MD [address] [place] [address] [address], [phone] PCP - General Family Medicine 12/14/24
--- OUTSIDE RECORDS SUMMARY | 2025-09-12 05:42 | XMS_ITS | Encounter Summary ---
Author Organization [employer] Address [address] [place] [address] Care Team Providers Care Radio Despatcher Name Role Phone Tony Arreola MD Primary Care Provider [phone] Encounter Details Date Type Department Care Team (Late st Contact Info) Description 12/21/2024 Lab Requisition [facility] - Main Lab [address] [place] [address] Tony Arreola MD 38 [facility] [address] [place], [address] Weakness; Unspecified dementia, unspecified severity, without [...] mmol/L LAB CHEMISTRY METHOD 12/23/2024 12:53 PM [facility] Potassium 4.2 3.5 - 5.5 mmol/L LAB CHEMISTRY METHOD 12/23/2024 12:53 PM [facility] Chloride 111(H) 96 - 110 mmol/L LAB CHEMISTRY METHOD 12/23/2024 12:53 PM [facility] CO2 28 21 - 32 mmol/L LAB CHEMISTRY METHOD 12/23/2024 12:53 PM [facility] Anion Gap 5 3 - 11 LAB CHEMISTRY METHOD 12/23/2024 12:53 PM [facility] Glucose 84 70 - 100 mg/dL LAB CHEMISTRY METHOD 12/23/2024 12:53 PM [facility] BUN 22 5 - 25 mg/dL LAB CHEMISTRY METHOD 12/23/2024 12:53 PM [facility] Creatinine 1.25(H) 0.50 - 1.10 mg/dL LAB CHEMISTRY METHOD 12/23/2024 12:53 PM [facility] eGFR 42(L) >=60 mL/min/1. 73m2 LAB CHEMISTRY METHOD 12/23/2024 12:53 PM [facility] Comment:Calculation based on the Chronic Kidney Disease Epidemiology Collaboration (CKD-EPI) equation refit without adjustment for race. BUN/Creatinine Ratio 17.6 LAB CHEMISTRY METHOD 12/23/2024 12:53 PM [facility] Calcium 9.3 8.5 - 10.5 mg/dL LAB CHEMISTRY METHOD 12/23/2024 12:53 PM [facility] Blood Venous blood specimen / Unknown Venipuncture / Unknown 12/23/2024 6:50 AM EST 12/23/2024 10:55 AM EST us Tony Arreola MD LAB BLOOD ORDERABLES Final Resul t [facility] [address] [place] [address], * (ABNORMAL) Complete blood count (12/23/2024 6:50 AM EST) [facility] WBC 6.0 4.8 - 10.8 K/mcL LAB HEMETOLOGY METHOD 12/23/2024 12:49 PM [facility] RBC 4.70 3.80 - 4.80 M/mcL LAB HEMETOLOGY METHOD 12/23/2024 12:49 PM [facility] Hemoglobin 13.4 11.5 - 16.0 g/dL LAB HEMETOLOGY METHOD 12/23/2024 12:49 PM [facility] Hematocrit 43.6 35.0 - 47.0 % LAB HEMETOLOGY METHOD 12/23/2024 12:49 PM [facility] MCV 93.6 79.0 - 98.0 FL LAB HEMETOLOGY METHOD 12/23/2024 12:49 PM [facility] MCH 28.8 27.0 - 32.0 pcg LAB HEMETOLOGY METHOD 12/23/2024 12:49 PM [facility] MCHC 30.7(L) 32.0 - 37.0 g/dL LAB HEMETOLOGY METHOD 12/23/2024 12:49 PM [facility] RDW 14.8 11.0 - 15.0 % LAB HEMETOLOGY METHOD 12/23/2024 12:49 PM [facility] Platelets 142 130 - 400 K/mcL LAB HEMETOLOGY METHOD 12/23/2024 12:49 PM [facility] MPV 12.0(H) 7.0 - 11.0 FL LAB HEMETOLOGY METHOD 12/23/2024 12:49 PM [facility] NRBC 0.0 <1.0 % LAB HEMETOLOGY METHOD 12/23/2024 12:49 PM [facility] NRBC Absolute 0.00 <0.10 K/mcL LAB HEMETOLOGY METHOD 12/23/2024 12:[address] [facility] Blood Venous blood specimen / Unknown Venipuncture / Unknown 12/23/2024 6:50 AM EST 12/23/2024 10:55 AM EST Tony Arreola MD LAB BLOOD ORDERABLES Final Resul t [facility] [address] [place] [address], documented in this encounter Visit Diagnoses Diagnosis Weakness Other malaise and fatigue Unspecified dementia, unspecified severity, without behavioral disturbance, psychotic disturbance, mood disturbance, and anxiety (CMS/HCC V24, CMS/HCC V28) documented in this encounter Care Teams Radio Despatcher Relationship Specialty Start Date End Date Tony Arreola MD [address] [place] [address], [phone] PCP - General Family Medicine 12/14/24 documented as of this encounter
--- OUTSIDE RECORDS SUMMARY | 2025-09-12 05:42 | XMS_ITS | Encounter Summary ---
Author Organization [employer] Address [address] [place] [address] Care Team Providers Care Warp Doffer Name Role Phone Tony Arreola MD Primary Care Provider [phone] Encounter Details Date Type Department Care Team (Late st Contact Info) Description 12/28/2024 Lab Requisition [facility] - Main Lab 299 [facility] [place] [address] Tony Arreola MD 38 [facility] 204 [place], [address] Weakness; Unspecified dementia, unspecified [...] V28) documented in this encounter Care Teams Warp Doffer Relationship Specialty Start Date End Date Tony Arreola MD 38 [facility] [address] [place], [address] PCP - General Family Medicine 12/14/24 documented as of this encounter
--- OUTSIDE RECORDS SUMMARY | 2025-09-12 05:42 | XMS_ITS | Encounter Summary ---
Author Organization [facility] Address [address] [facility] [address] [place] [address] Phone Care Team Providers Care Diplomatic Courier Name Role Phone Unavailable Primary Care Provider Unavailabl e Reason for Visit * Reason Comments Med Refill Encounter Details Date Type Department Care Team ([facility] st Contact Info) Description 12/10/2021 Refill [facility] [address] [facility] [address] [place] [phone] Chino Martinez MD [address] [facility] [address] [place] [phone] Social History Tobacco Use Types Packs/Day Years [...]
--- OUTSIDE RECORDS SUMMARY | 2025-09-12 05:43 | XMS_ITS | Encounter Summary ---
Author Organization [employer] Address [address] [place] [address] Care Team Providers Care Group Fitness Assistant Department Head Name Role Phone Tony Arreola MD Primary Care Provider [phone] Encounter Details Date Type Department Care Team (Late st Contact Info) Description 11/29/2024 Lab Requisition [facility] - Main Lab [address] [place] [address] Tony Arreola MD 38 [facility] 204 [place], [address] Weakness; Unspecified dementia, unspecified severity, without [...] Resul t [facility] [address] [place] [address], * (ABNORMAL) Complete blood count (12/02/2024 7:21 AM EST) [facility] WBC 6.8 4.8 - 10.8 K/mcL [...] MD LAB BLOOD ORDERABLES Final Resul t [facility] [address] [place] [address], documented in this encounter Visit Diagnoses Diagnosis Weakness Other malaise and fatigue Unspecified dementia, unspecified severity, without behavioral disturbance, psychotic disturbance, mood disturbance, and anxiety (CMS/HCC V24, CMS/HCC V28) documented in this encounter Care Teams Group Fitness Assistant Department Head Relationship Specialty Start Date End Date Tony Arreola MD [address] [place] [address] 204 [place], [phone] PCP - General Family Medicine 12/14/24 documented as of this encounter
--- OUTSIDE RECORDS SUMMARY | 2025-09-12 05:43 | XMS_ITS | Encounter Summary ---
Author Organization [employer] Address [address] [place] [address] 7t [place] [address] Care Team Providers Care Carton Catcher Name Role Phone Myah Singh MD Primary Care Provider Reason for Visit * Reason Onset Date Comments Durable Medical Equipment 01/30/2023 Encounter Details Date Type Department Care Team (Late st Contact Info) Description 01/30/2023 Telephone [facility] MEDICINE [address] [place], [place] [phone] Myah Singh MD 230 [place], [place] [phone] Durable Medical Equipment Social History Tobacco Use [...] call me or CHACE Beltran also patient FAMILY AND DIVORCE LEGAL ASSISTANT can call them as they are the vendor for more information [phone] * Telephone Encounter - Uriahrociorashel Rodriguezmahad Marion - 01/30/2023 10:00 AM EST Tc from pt FAMILY AND DIVORCE LEGAL ASSISTANT Jonathan stating that for the last two months pt Large Pull ups and Wipes have not been deliver Please contact jonathan at [phone] documented in this encounter Plan of Treatment Not on file documented as of this encounter Visit Diagnoses Not on filedocumented in this encounter Care Teams Carton Catcher Relationship Specialty Start Date End Date Myah Singh MD [address] [place] [address] PCP - General Family Medicine 11/08/12 [facility] 12/31/24 07/29/25 documented as of this encounter
--- OUTSIDE RECORDS SUMMARY | 2025-09-12 05:43 | XMS_ITS | Encounter Summary ---
Author Organization [employer] Address [address] [place] [address] Care Team Providers Care Clay Shop Supervisor Name Role Phone Tony Arreola MD Primary Care Provider [phone] Encounter Details Date Type Department Care Team (Late st Contact Info) Description 12/06/2024 Lab Requisition [facility] - Main Lab [address] [place] [address] Tony Arreola MD 38 [facility] 204 [place], [address] Weakness; Unspecified dementia, unspecified severity, without [...] [facility] [address] [place] [address], [place] [phone] * (ABNORMAL) Complete blood count (12/09/2024 7:13 AM EST) [facility] Signature WBC 6.9 4.8 - [...] LAB HEMETOLOGY METHOD 12/09/2024 12:37 PM EST [facility] LAB Blood Venous blood specimen / Unknown Venipuncture / Unknown 12/09/2024 7:13 AM EST 12/09/2024 11:17 AM EST us Tony Arreola MD LAB BLOOD ORDERABLES Final Resul t [facility] LAB [address] [place] [address], documented in this encounter Visit Diagnoses Diagnosis Weakness Other malaise and fatigue Unspecified dementia, unspecified severity, without behavioral disturbance, psychotic disturbance, mood disturbance, and anxiety (CMS/HCC V24, CMS/HCC V28) documented in this encounter Care Teams Clay Shop Supervisor Relationship Specialty Start Date End Date Tony Arreola MD [address] [place] [address], [phone] PCP - General Family Medicine 12/14/24 documented as of this encounter
--- OUTSIDE RECORDS SUMMARY | 2025-09-12 05:43 | XMS_ITS | Encounter Summary ---
Author Organization [employer] Address [address] [facility] 7t [place] [address] Care Team Providers Care Pipeline Executive Name Role Phone Myah Singh MD Primary Care Provider [phone] Encounter Details Date Type Department Care Team (Late st Contact Info) Description 01/30/[address] [facility] MEDICINE [address] [place], [place] [phone] Myah Singh MD 230 [place], [place] [phone] Social History Tobacco Use Types Packs/Day Years [...] on filedocumented in this encounter Care Teams Pipeline Executive Relationship Specialty Start Date End Date Myah Singh MD [address] [place], [place] [phone] PCP - General Family Medicine 11/08/12 [facility] 12/31/24 07/29/25 documented as of this encounter
--- OUTSIDE RECORDS SUMMARY | 2025-09-12 05:43 | XMS_ITS | Encounter Summary ---
Author Organization [facility] Address [address] [place] [address] Care Team Providers Care Director Translational Name Role Phone Tony Arreola MD Primary Care Provider [phone] Encounter Details Date Type Department Care Team (Late st Contact Info) Description 12/14/[address] [facility] - Main Lab [address] [place] [address] Tony Arreola MD 38 [facility] [address] [place], [address] Weakness; Unspecified dementia, unspecified severity, without [...] LAB CHEMISTRY METHOD 12/16/2024 1:55 PM [facility] Potassium 4.1 3.5 - 5.5 mmol/L LAB CHEMISTRY METHOD 12/16/2024 1:55 PM [facility] Chloride 113(H) 96 - 110 mmol/L LAB CHEMISTRY METHOD 12/16/2024 1:55 PM [facility] CO2 28 21 - 32 mmol/L LAB CHEMISTRY METHOD 12/16/2024 1:55 PM [facility] Anion Gap 5 3 - 11 LAB CHEMISTRY METHOD 12/16/2024 1:55 PM [facility] Glucose 88 70 - 100 mg/dL LAB CHEMISTRY METHOD 12/16/2024 1:55 PM [facility] BUN 25 5 - 25 mg/dL LAB CHEMISTRY METHOD 12/16/2024 1:55 PM [facility] Creatinine 1.26(H) 0.50 - 1.10 mg/dL LAB CHEMISTRY METHOD 12/16/2024 1:55 PM [facility] eGFR 41(L) >=60 mL/min/1. 73m2 LAB CHEMISTRY METHOD 12/16/2024 1:55 PM [facility] LAB Comment:Calculation based on the Chronic Kidney Disease Epidemiology Collaboration (CKD-EPI) equation refit without adjustment for race. BUN/Creatinine Ratio 19.8 LAB CHEMISTRY METHOD 12/16/2024 1:55 PM [facility] Calcium 9.3 8.5 - 10.5 mg/dL LAB CHEMISTRY METHOD 12/16/2024 1:55 PM [facility] Blood Venous blood specimen / Unknown Venipuncture / Unknown 12/16/2024 7:20 AM EST 12/16/2024 11:32 AM EST us Tony Arreola MD LAB BLOOD ORDERABLES Final Resul t [facility] LAB [address] [place] [address], [place] [phone] * (ABNORMAL) Complete blood count (12/16/2024 7:20 AM EST) [facility] WBC 5.4 4.8 - 10.8 K/mcL LAB HEMETOLOGY METHOD 12/16/2024 12:51 PM [facility] RBC 4.60 3.80 - 4.80 M/mcL LAB HEMETOLOGY METHOD 12/16/2024 12:51 PM [facility] Hemoglobin 13.4 11.5 - 16.0 g/dL LAB HEMETOLOGY METHOD 12/16/2024 12:51 PM [facility] Hematocrit 43.8 35.0 - 47.0 % LAB HEMETOLOGY METHOD 12/16/2024 12:51 PM [facility] LAB MCV 95.8 79.0 - 98.0 FL LAB HEMETOLOGY METHOD 12/16/2024 12:51 PM [facility] MCH 29.3 27.0 - 32.0 pcg LAB HEMETOLOGY METHOD 12/16/2024 12:51 PM [facility] MCHC 30.6(L) 32.0 - 37.0 g/dL LAB HEMETOLOGY METHOD 12/16/2024 12:51 PM [facility] RDW 14.9 11.0 - 15.0 % LAB HEMETOLOGY METHOD 12/16/2024 12:51 PM [facility] Platelets 135 130 - 400 K/mcL LAB HEMETOLOGY METHOD 12/16/2024 12:51 PM [facility] MPV 12.3(H) 7.0 - 11.0 FL LAB HEMETOLOGY METHOD 12/16/2024 12:51 PM [facility] NRBC 0.0 <1.0 % LAB HEMETOLOGY METHOD 12/16/2024 12:51 PM [facility] NRBC Absolute 0.00 <0.10 K/mcL LAB HEMETOLOGY METHOD 12/16/2024 12:51 PM EST [facility] LAB Blood Venous blood specimen / Unknown Venipuncture / Unknown 12/16/2024 7:20 AM EST 12/16/2024 11:32 AM EST us Tony Arreola MD LAB BLOOD ORDERABLES Final Resul t [facility] LAB [address] [place] [address], documented in this encounter Visit Diagnoses Diagnosis Weakness Other malaise and fatigue Unspecified dementia, unspecified severity, without behavioral disturbance, psychotic disturbance, mood disturbance, and anxiety (CMS/HCC V24, CMS/HCC V28) documented in this encounter Care Teams Director Translational Relationship Specialty Start Date End Date Tony Arreola MD [address] [place] [address] [address] [place], [phone] PCP - General Family Medicine 12/14/24 documented as of this encounter
--- OUTSIDE RECORDS SUMMARY | 2025-09-12 05:44 | XMS_ITS | Encounter Summary ---
Author Organization [employer] Address [address] [place] [address] Care Team Providers Care Fire Management Specialist Name Role Phone Tony Arreola MD Primary Care Provider [phone] Encounter Details Date Type Department Care Team (Late st Contact Info) Description 02/24/2025 Lab Requisition [facility] - Main Lab 299 [facility] [place] [address] Venus Mayberry MD [address] [place], [place] [phone] Essential (primary) hypertension; Type 2 diabetes mellitus [...] * Vitamin B12 (02/24/2025 6:34 AM EDT) [facility] Vitamin B-12 324 250 - 900 pcg/mL LAB CHEMISTRY METHOD 02/24/2025 12:24 PM EDT [facility] Blood Venous blood specimen / Unknown Venipuncture / Unknown 02/24/2025 6:34 AM EDT 02/24/2025 10:44 AM EDT us Vneus Mayberry MD LAB BLOOD ORDERABLES Final Resul t Performing Organization Address City/[facility]/ZIP Co de Phone Number [facility] [address] [place] [address], [place] [phone] * Folate (02/24/2025 6:34 AM EDT) [facility] Folate 11.3 2.8 - 17.0 ng/ml LAB CHEMISTRY METHOD 02/24/2025 12:24 PM EDT [facility] Blood Venous blood specimen / Unknown Venipuncture / Unknown 02/24/2025 6:34 AM EDT 02/24/2025 10:44 AM EDT us Venus Mayberry MD LAB BLOOD ORDERABLES Final Resul t Performing Organization Address City/[facility]/ZIP Co de Phone Number [facility] [address] [place] [address], [place] [phone] * (ABNORMAL) Vitamin D 25 hydroxy (02/24/2025 6:34 AM EDT) Pathologist [facility] Vit D, 25-Hydroxy 29.9(L) 30.0 - 80.0 ng/mL LAB CHEMISTRY METHOD 02/24/2025 1:12 PM EDT [facility] Blood Venous blood specimen / Unknown Venipuncture / Unknown 02/24/2025 6:34 AM EDT 02/24/2025 10:44 AM EDT us Venus Mayberry MD LAB BLOOD ORDERABLES Final Resul t Performing Organization Address [facility] Co de Phone Number [facility] [address] [place] [address], * Thyroid stimulating hormone (02/24/2025 6:34 AM EDT) [facility] TSH 1.44 0.40 - 4.00 mcIU/mL LAB CHEMISTRY METHOD 02/24/2025 1:13 PM EDT [facility] Blood Venous blood specimen / Unknown Venipuncture / Unknown 02/24/2025 6:34 AM EDT 02/24/2025 10:44 AM EDT us Venus Mayberry MD LAB BLOOD ORDERABLES Final Resul t Performing Organization Address [facility] de Phone Number [facility] [address] [place] [address], [place] [phone] * Hemoglobin A1c (02/24/2025 6:34 AM EDT) [facility] Hemoglobin A1C 5.9 <6.5 % LAB CHEMISTRY [...] t [facility] [address] [place] [address], [place] [phone] * (ABNORMAL) Comprehensive metabolic panel (02/24/2025 6:34 [...] g/dL LAB CHEMISTRY METHOD [facility] Albumin 3.1(L) 3.2 - 5.0 [...] Resul t [facility] [address] [place] [address], * (ABNORMAL) Complete blood count (02/24/2025 6:34 [...] LAB BLOOD ORDERABLES Final Resul t [facility] LAB [address] [place] [address], documented in this encounter Visit Diagnoses Diagnosis Essential (primary) hypertension Unspecified essential hypertension Type 2 diabetes mellitus without complications (CMS/HCC V24, CMS/HCC V28) documented in this encounter Care Teams Fire Management Specialist Relationship Specialty Start Date End Date Tony Arreola MD [address] [place] [address], [phone] PCP - General Family Medicine 12/14/24 documented as of this encounter
--- OUTSIDE RECORDS SUMMARY | 2025-09-12 05:44 | XMS_ITS | Encounter Summary ---
Author Organization [employer] Address [address] [facility] 7t [place] [address] Care Team Providers Care Client Development Consultant Name Role Phone Myah Singh MD Primary Care Provider [phone] Reason for Visit * Reason Comments Med Refill Encounter Details Date Type Department Care Team (Late st Contact Info) Description 10/22/2024 Refill [facility] MEDICINE [address] [place], [place] [phone] Myah Singh MD 230 [place], [place] [phone] Allergic rhinitis, unspecified seasonality, unspecified trigger Social [...] documented as of this encounter Care Teams Client Development Consultant Relationship Specialty Start Date End Date Myah Singh MD [address] [place] [address] PCP - General Family Medicine 11/08/12 [facility] 12/31/24 07/29/25 documented as of this encounter
--- OUTSIDE RECORDS SUMMARY | 2025-09-12 05:44 | XMS_ITS | Encounter Summary ---
Author Organization [employer] Address [address] [facility] 7t [place] [address] Care Team Providers Care Compliance Vice President Name Role Phone Myah Singh MD Primary Care Provider Encounter Details Date Type Department Care Team ([facility] st Contact Info) Description 03/26/2025 Telephone [facility] MEDICINE [address] [place], [place] [phone] Myah Singh MD 230 [place], [place] [phone] Social History Tobacco Use Types Packs/Day Years [...] documented as of this encounter Care Teams Compliance Vice President Relationship Specialty Start Date End Date Myah Singh MD [address] [place] [address] PCP - General Family Medicine 11/08/12 [facility] 12/31/24 07/29/25 documented as of this encounter
--- OUTSIDE RECORDS SUMMARY | 2025-09-12 05:44 | XMS_ITS | Encounter Summary ---
Author Organization [employer] Address [address] [facility] 7t [place] [address] Care Team Providers Care Program Developer Name Role Phone Myah Singh MD Primary Care Provider [phone] Reason for Visit * Reason Comments Med Refill Encounter Details Date Type Department Care Team (Late st Contact Info) Description 05/22/[address] [facility] PEDS [address] [place], [place] [phone] Myah Singh MD [address] [place], [place] [phone] Social History Tobacco Use Types Packs/Day Years [...] documented as of this encounter Care Teams Program Developer Relationship Specialty Start Date End Date Myah Singh MD [address] [place] [address] PCP - General Family Medicine 11/08/12 [facility] 12/31/24 07/29/25 documented as of this encounter
--- OUTSIDE RECORDS SUMMARY | 2025-09-12 05:44 | XMS_ITS | Encounter Summary ---
Author Organization [employer] Address [address] [facility] 7t [place] [address] Care Team Providers Care Pulper Name Role Phone Myah Singh MD Primary Care Provider [phone] Reason for Visit * Reason Comments Med Refill Encounter Details Date Type Department Care Team (Late st Contact Info) Description 11/29/2023 Refill [facility]S [address] [place], [place] [phone] Myah Singh MD [address] [place], [place] [phone] Vitamin D deficiency Social History Tobacco Use [...] documented as of this encounter Care Teams Pulper Relationship Specialty Start Date End Date Myah Singh MD [address] [place] [address] PCP - General Family Medicine 11/08/12 [facility] 12/31/24 07/29/25 documented as of this encounter
[2025-09-12 06:09] LABS: Hematocrit 39.0 % (37.0-47.0); Hemoglobin 12.4 g/dl (12.0-16.0); Imm Gran Abs Auto 0.01 X10*3/uL (0.00-0.03); Imm Gran Pct Auto 0.2 % (0.0-0.4); Lymphocytes Absolute Auto 1.0 X10*3/uL (1.2-4.9); Mean Corpuscular HGB Conc 31.8 g/dl (31.0-35.0); Mean Corpuscular Hemoglobin 28.9 pg (27.0-33.0); Mean Corpuscular Volume 90.9 fL (80.0-98.0); NRBC Abs Auto 0.000 X10*3/uL (0.0-0.012); NRBC Pct Auto 0.0 /100WBC (0.0-0.2); Platelet Count 138 X10*3/uL (160-400); Red Blood Count 4.29 X10*6/uL (4.20-5.50); White Blood Count 5.5 X10*3/uL (4.8-10.8)
[2025-09-12 06:20] LABS: Anion Gap 13 (12-20); Blood Urea Nitrogen 15 mg/dL (9-16); Calcium 9.1 mg/dL (8.4-10.2); Carbon Dioxide 25 mmol/L (22-29); Chloride 110 mmol/L (96-108); Estimated Glomerular Filt Rate 55; Potassium 3.4 mmol/L (3.3-5.1); Sodium 145 mmol/L (135-145)
== END 2025-09-12 05:38 | disposition home or self-care (01) ==
LOC: HO.MMNH1L 05:37
PROVIDERS: Visit Provider Physician Assistant Medical
DX: G30.9 Alzheimer's disease, unspecified (principal); F02.80 Dementia in other diseases classified elsewhere, unspecified severity, without behavioral disturbance, psychotic disturbance, mood disturbance, and anxiety; S52.501D Unspecified fracture of the lower end of right radius, subsequent encounter for closed fracture with routine healing
CPT/HCPCS: 36415; 80048; 85025

== ENCOUNTER 2025-09-15 06:08 | Outpatient (REF) | payer OTHER, SELFPAY ==
[2025-09-15 06:11] LABS: MANUAL DIFF FLAG NO
--- OUTSIDE RECORDS SUMMARY | 2025-09-15 06:11 | XMS_ITS | Encounter Summary ---
Author Organization [employer] Address [address] [place] [address] Care Team Providers Care Horse Rider Name Role Phone Tony Arreola MD Primary Care Provider [phone] Encounter Details Date Type Department Care Team (Late st Contact Info) Description 12/28/2024 Lab Requisition [facility] - Main Lab 299 [facility] [place] [address] Tony Arreola MD 38 [facility] 204 [place], [address] Weakness; Unspecified dementia, unspecified severity, without [...] V28) documented in this encounter Care Teams Horse Rider Relationship Specialty Start Date End Date Tony Arreola MD 38 [facility] 204 [place], [address] PCP - General Family Medicine 12/14/24 documented as of this encounter
--- OUTSIDE RECORDS SUMMARY | 2025-09-15 06:11 | XMS_ITS | Patient Health Record ---
Author Organization [facility] Address [address] [place] [address] Care Team Providers Care Field Collector Name Role Phone Samantha GARCIA, Myah Primary Care Provider Cali Bailey [phone] Allergies Allergen (clinical drug ingredient) Drug/Non Drug [...] Notes Problem Gastroesophageal reflux disease without esophagitis (919391391) Gastroesophageal reflux disease without esophagitis (K21.9) Active confirmed Problem Elevated liver enzymes level (025505975) Elevated liver enzymes (R74.8) Active confirmed Problem Constipation (78854889) Constipation, unspecified constipation type (K59.00) Active confirmed Plan Of Treatment Pending Test Test Name Order Date LIVER PROFILE 04/06/2016 Insurance Providers Payer Name Payer Address Payer Phone Subscriber Number Group Number Insured Name Patient Relationship to Insured Coverage Start Date Coverage End Date [facility] [address] [place] [phone] [id number] ZITA PAPPAS Self - patient is the insured MEDICARE OF [place] [address] [place] [address] [phone] [id number] ZITA PAPPAS Self - patient is the insured Medical (General) History Medical History History ICD Code GERD--UPPER ENDOSCOPY & COLO NOSCOPY IN 2007--Large HH with tiny area of Polanco's esophagus, no dysplasia; normal colonoscopy DEPRESSION HYPERTENSION HISTORY OF STROKE Kidney stones Denies [place],DM,lung disease,renal disease minor stroke and heart attack [...]
--- OUTSIDE RECORDS SUMMARY | 2025-09-15 06:11 | XMS_ITS | Clinical Summary ---
Author Organization [facility] Address [address] [place] [address] Phone Care Team Providers Care Barber Instructor Name Role Phone Tony Arreola MD Primary Care Provider [phone] Social History Tobacco Use Types Packs/Day Years [...] [facility] [address] [place] [address], * (ABNORMAL) Comprehensive metabolic panel (02/24/2025 6:34 AM EDT) Sodium 142 133 - 145 mmol/L LAB CHEMISTRY METHOD 02/24/2025 12:24 PM EDT [facility] Potassium 4.1 3.5 - 5.5 mmol/L LAB CHEMISTRY METHOD 02/24/2025 12:24 PM [facility] Chloride 108 96 - 110 mmol/L LAB CHEMISTRY METHOD 02/24/2025 12:24 PM [facility] CO2 28 21 - 32 mmol/L LAB CHEMISTRY METHOD 02/24/2025 12:24 PM [facility] Anion Gap 6 3 - 11 LAB CHEMISTRY METHOD 02/24/2025 12:24 PM [facility] Glucose 91 70 - 100 mg/dL LAB CHEMISTRY METHOD 02/24/2025 12:24 PM [facility] BUN 30(H) 5 - 25 mg/dL LAB CHEMISTRY METHOD 02/24/2025 12:24 PM [facility] Creatinine 1.02 0.50 - 1.10 mg/dL LAB CHEMISTRY [facility] eGFR 53(L) >=60 mL/min/1. 73m2 [...] [facility] Albumin [...] [facility] [address] [place] [address], from Last 3 Months or Most Recently Relevant to Health Maintenance Insurance [facility] MEDICARE Member Subscriber Plan / Payer (Ef fective 2019-Present) Name:Sienna Mendez Relation to Subscriber:Self Name:Sienna Mendez Payer ID:[id number] Group ID:[id number] Type:Not on file Address: [address] [place] [id number] Care Teams Barber Instructor Relationship Specialty Start Date End Date Tony Arreola MD [address] [place] [address] [address] [place], [phone] PCP - General Family Medicine 12/14/24
--- OUTSIDE RECORDS SUMMARY | 2025-09-15 06:11 | XMS_ITS | Data Portability ---
Author Organization [facility], [facility] Address [address] [place] [address] Care Team Providers Care Manager Discovery Name Role Phone [facility] Referring [...] recorded. Lab cmp, whole blood + waqar [facility], [address] [place] [address], [place], [phone] 10:38:51 culture, urine [place] [facility] (Centralized Electronic Ordering - All Locations), Patient Can Go To The Location Of Their Choice, [address] 05:01:48 Referral None recorded. Procedures None recorded. [...] 4625 Kenia Hernandez MD Main - instED [address] [place] [phone] 09/10/2022 16:51:17 09/12/2022 13:08:31 Right upper quadrant pain [id number] R10.11 Health Concerns Section Related Observation LastModified by Organization Detai ls LastModified Time None Recorded Concern Status LastModified by Organization Details LastModified Time None Recorded Advance Directives Directive None Recorded Payers Insurance Date Sequence Insurance Name Policy Number Policy Gonzalez Covered Member ID Gonzalez Member ID Guarantor Name 01/21/2024 1 [facility] - DOS PRIOR TO 2023 - DUAL ELIGIBLE (MEDICARE REPLACEMENT/ADV ANTAGE - HMO) Sienna Mendez [id number] Sienna Mendez 01/21/2024 1 [facility] - DOS ON OR AFTER 2023 - DUAL ELIGIBLE - ALF OPTIONS AND ONE CARE (MEDICARE REPLACEMENT/ADV ANTAGE - HMO) Sienna Mendez [id number] Sienna Mendez Notes Date Note Type Note [...] and assists coordinate all visitsher number is [phone], member uses this number as her Primary contact. Member is an 87 yo female with old [place], osteoarthritis, thrombocytopenia and HTN hrt & CKD and Modereate Dementia. Pleasantly confused. Supportive family. This RNCP recommends Female Providers if possible. Can the results be faxed to [facility] at [phone] Singh if possible? ...................... ...................... ...................... ...................... ...................... ...................... ......... CRC Nursing Assessment: Comments: CRC RN did not require any additional information to process this visit. Spoke with daughter who agrees to visit for 09/10> would like to be seen early in the day if possible [facility] HPI:chronic kidney disease, dementia, HTN, CAD with acute on chronic progressive behavior changes. eating normally, voiding normally, drinking normally, no vomiting, no diarrhea, no fevers, cough. No one else has been sick at home. No changes the family can identify in terms of schedule. No reports of worse unsteadiness on her feet or falls.Granddaughter reports that PMH includes cirrhosis Kenia Tilhou, MD [address] [facility],[address], [place], [address], [employer] 09/10/2022 17:40:46 OBGyn Episode No OBEpisode recorded.
--- OUTSIDE RECORDS SUMMARY | 2025-09-15 06:11 | XMS_ITS | Encounter Summary ---
Author Organization [employer] Address [address] [place] [address] Care Team Providers Care Licensing Services Clerk Name Role Phone Tony Arreola MD Primary Care Provider [phone] Encounter Details Date Type Department Care Team (Late st Contact Info) Description 12/14/2024 Lab Requisition [facility] - Main Lab [address] [place] [address] Tony Arreola MD [address] [facility] [address] [place], [address] Weakness; Unspecified dementia, unspecified severity, without [...] mmol/L LAB CHEMISTRY METHOD 12/16/2024 1:55 PM [facility] Potassium 4.1 3.5 - 5.5 mmol/L LAB CHEMISTRY METHOD 12/16/2024 1:55 PM [facility] Chloride 113(H) 96 - 110 mmol/L LAB CHEMISTRY METHOD 12/16/2024 1:55 PM [facility] CO2 28 21 - 32 mmol/L LAB CHEMISTRY METHOD 12/16/2024 1:55 PM [facility] Anion Gap 5 3 - 11 LAB CHEMISTRY METHOD 12/16/2024 1:55 PM [facility] Glucose 88 70 - 100 mg/dL LAB CHEMISTRY METHOD 12/16/2024 1:55 PM [facility] BUN 25 5 - 25 mg/dL LAB CHEMISTRY METHOD 12/16/2024 1:55 PM [facility] Creatinine 1.26(H) 0.50 - 1.10 mg/dL LAB CHEMISTRY METHOD 12/16/2024 1:55 PM [facility] eGFR 41(L) >=60 mL/min/1. 73m2 LAB CHEMISTRY METHOD 12/16/2024 1:55 PM [facility] Comment:Calculation based on the Chronic Kidney Disease Epidemiology Collaboration (CKD-EPI) equation refit without adjustment for race. BUN/Creatinine Ratio 19.8 LAB CHEMISTRY METHOD 12/16/2024 1:55 PM [facility] Calcium 9.3 8.5 - 10.5 mg/dL LAB CHEMISTRY METHOD 12/16/2024 1:55 PM [facility] Blood Venous blood specimen / Unknown Venipuncture / Unknown 12/16/2024 7:20 AM EST 12/16/2024 11:32 AM EST us Tony Arreola MD LAB BLOOD ORDERABLES Final Resul t [facility] [address] [place] [address], [place] [phone] * (ABNORMAL) Complete blood count (12/16/2024 7:20 AM EST) [facility] WBC 5.4 4.8 - 10.8 K/mcL LAB HEMETOLOGY METHOD 12/16/2024 12:51 PM [facility] RBC 4.60 3.80 - 4.80 M/mcL LAB HEMETOLOGY METHOD 12/16/2024 12:51 PM [facility] Hemoglobin 13.4 11.5 - 16.0 g/dL LAB HEMETOLOGY METHOD 12/16/2024 12:51 PM [facility] Hematocrit 43.8 35.0 - 47.0 % LAB HEMETOLOGY METHOD 12/16/2024 12:51 PM [facility] MCV 95.8 79.0 - 98.0 FL LAB HEMETOLOGY METHOD 12/16/2024 12:51 PM [facility] MCH 29.3 27.0 - 32.0 pcg LAB HEMETOLOGY METHOD 12/16/2024 12:51 PM [facility] MCHC 30.6(L) 32.0 - 37.0 g/dL LAB HEMETOLOGY METHOD 12/16/2024 12:51 PM [facility] RDW 14.9 11.0 - 15.0 % LAB HEMETOLOGY METHOD 12/16/2024 12:51 PM [facility] Platelets 135 130 - 400 K/mcL LAB HEMETOLOGY METHOD 12/16/2024 12:51 PM [facility] MPV 12.3(H) 7.0 - 11.0 FL LAB HEMETOLOGY METHOD 12/16/2024 12:51 PM [facility] NRBC 0.0 <1.0 % LAB HEMETOLOGY METHOD 12/16/2024 12:51 PM [facility] NRBC Absolute 0.00 <0.10 K/mcL LAB HEMETOLOGY METHOD 12/16/2024 12:51 PM EST [facility] Blood Venous blood specimen / Unknown Venipuncture / Unknown 12/16/2024 7:20 AM EST 12/16/2024 11:32 AM EST us Tony Arreola MD LAB BLOOD ORDERABLES Final Resul t [facility] [address] [place] [address], documented in this encounter Visit Diagnoses Diagnosis Weakness Other malaise and fatigue Unspecified dementia, unspecified severity, without behavioral disturbance, psychotic disturbance, mood disturbance, and anxiety (CMS/HCC V24, CMS/HCC V28) documented in this encounter Care Teams Licensing Services Clerk Relationship Specialty Start Date End Date Tony Arreola MD [address] [place] [address] [address] [place], [phone] PCP - General Family Medicine 12/14/24 documented as of this encounter
--- OUTSIDE RECORDS SUMMARY | 2025-09-15 06:11 | XMS_ITS | Encounter Summary ---
Author Organization [employer] Address [address] [facility] 7[address] [place] [address] Care Team Providers Care Pesticide Applicator Name Role Phone Myah Singh MD Primary Care Provider Encounter Details Date Type Department Care Team (Late st Contact Info) Description 01/30/2023 Telephone [facility] [address] [place], [place] [phone] Myah Singh MD [address] [place], [place] [phone] Social History Tobacco Use Types Packs/Day Years [...] on filedocumented in this encounter Care Teams Pesticide Applicator Relationship Specialty Start Date End Date Myah Singh MD [address] [place], [place] [phone] PCP - General Family Medicine 11/08/12 [facility] 12/31/24 07/29/25 documented as of this encounter
--- OUTSIDE RECORDS SUMMARY | 2025-09-15 06:11 | XMS_ITS | Clinical Summary ---
Author Organization [facility] Address [address] [address] Care Team Providers Care Dials Inspector Name Role Phone Unavailable Primary Care Provider [...] -Pt has an upcoming appt with her sourcing associate History of cerebrovascular accident 01/07/2023 Overview (01/23/2023): Last Assessment & Plan: -around 2009 previous medical record -TIA in 2015 -Continue working on secondary prevention / risk factor management History of non-ST segment elevation myocardial i nfarction 01/07/2023 Overview (01/23/2023): Last Assessment & Plan: -Oct 2015 -Previously following with [facility] Cardiology, upcoming appt -Continue risk factor mangement [...] Risk: CKD, age, NSTEMI, Hx CVA/TIA, DM2 -Substation Technician: Previously [facility], pt has a new appt on 01/23/23 [...] Followed by Dr. Vallecillo, [facility] - Continue mirabegron as prescribed Unspecified [...] to 49 Years) Discontinued 02/23/2015, 10/04/2001 Insurance [facility] ([id number]) [place] [id number] [facility] ([id number])
--- OUTSIDE RECORDS SUMMARY | 2025-09-15 06:11 | XMS_ITS | Encounter Summary ---
Author Organization [employer] Address [address] [place] [address] Care Team Providers Care Dynamics Ax Technical Architect Name Role Phone Tony Arreola MD Primary Care Provider [phone] Encounter Details Date Type Department Care Team (Late st Contact Info) Description 12/06/2024 Lab Requisition [facility] - Main Lab [address] [place] [address] Tony Arreola MD [address] [facility] [address] [place], [phone] Weakness; Unspecified dementia, unspecified severity, without [...] mmol/L LAB CHEMISTRY METHOD 12/09/2024 3:01 PM [facility] Potassium 4.3 3.5 - 5.5 mmol/L LAB CHEMISTRY METHOD 12/09/2024 3:01 PM [facility] Chloride 110 96 - 110 mmol/L LAB CHEMISTRY METHOD 12/09/2024 3:01 PM [facility] CO2 28 21 - 32 mmol/L LAB CHEMISTRY METHOD 12/09/2024 3:01 PM [facility] Anion Gap 7 3 - 11 LAB CHEMISTRY METHOD 12/09/2024 3:01 PM [facility] Glucose 74 70 - 100 mg/dL LAB CHEMISTRY METHOD 12/09/2024 3:01 PM [facility] BUN 20 5 - 25 mg/dL LAB CHEMISTRY METHOD 12/09/2024 3:01 PM [facility] Creatinine 1.21(H) 0.50 - 1.10 mg/dL LAB CHEMISTRY METHOD 12/09/2024 3:01 PM [facility] eGFR 43(L) >=60 mL/min/1. 73m2 LAB CHEMISTRY METHOD 12/09/2024 3:01 PM [facility] Comment:Calculation based on the Chronic Kidney Disease Epidemiology Collaboration (CKD-EPI) equation refit without adjustment for race. BUN/Creatinine Ratio 16.5 LAB CHEMISTRY METHOD 12/09/2024 3:01 PM [facility] Calcium 9.4 8.5 - 10.5 mg/dL LAB CHEMISTRY METHOD 12/09/2024 3:01 PM [facility] Blood Venous blood specimen / Unknown Venipuncture / Unknown 12/09/2024 7:13 AM EST 12/09/2024 11:17 AM EST us Tony Arreola MD LAB BLOOD ORDERABLES Final Resul t [facility] [address] [place] [address], [place] [phone] * (ABNORMAL) Complete blood count (12/09/2024 7:13 AM EST) [facility] Signature WBC 6.9 4.8 - 10.8 K/mcL LAB HEMETOLOGY METHOD 12/09/2024 12:37 PM [facility] RBC 4.60 3.80 - 4.80 M/mcL LAB HEMETOLOGY METHOD 12/09/2024 12:37 PM [facility] Hemoglobin 13.3 11.5 - 16.0 g/dL LAB HEMETOLOGY METHOD 12/09/2024 12:37 PM [facility] Hematocrit 43.5 35.0 - 47.0 % LAB HEMETOLOGY METHOD 12/09/2024 12:37 PM [facility] MCV 94.8 79.0 - 98.0 FL LAB HEMETOLOGY METHOD 12/09/2024 12:37 PM [facility] MCH 29.0 27.0 - 32.0 pcg LAB HEMETOLOGY METHOD 12/09/2024 12:37 PM [facility] MCHC 30.6(L) 32.0 - 37.0 g/dL LAB HEMETOLOGY METHOD 12/09/2024 12:37 PM [facility] RDW 14.6 11.0 - 15.0 % LAB HEMETOLOGY METHOD 12/09/2024 12:37 PM [facility] Platelets 160 130 - 400 K/mcL LAB HEMETOLOGY METHOD 12/09/2024 12:37 PM [facility] MPV 12.2(H) 7.0 - 11.0 FL LAB HEMETOLOGY METHOD 12/09/2024 12:37 PM [facility] NRBC 0.0 <1.0 % LAB HEMETOLOGY METHOD 12/09/2024 12:37 PM [facility] NRBC Absolute 0.00 <0.10 K/mcL LAB HEMETOLOGY METHOD 12/09/2024 12:37 PM EST [facility] Blood Venous blood specimen / Unknown Venipuncture / Unknown 12/09/2024 7:13 AM EST 12/09/2024 11:17 AM EST us Tony Arreola MD LAB BLOOD ORDERABLES Final Resul t [facility] [address] [place] [address], documented in this encounter Visit Diagnoses Diagnosis Weakness Other malaise and fatigue Unspecified dementia, unspecified severity, without behavioral disturbance, psychotic disturbance, mood disturbance, and anxiety (CMS/HCC V24, CMS/HCC V28) documented in this encounter Care Teams Dynamics Ax Technical Architect Relationship Specialty Start Date End Date Tony Arreola MD [address] [place] [address], [phone] PCP - General Family Medicine 12/14/24 documented as of this encounter
--- OUTSIDE RECORDS SUMMARY | 2025-09-15 06:11 | XMS_ITS | Encounter Summary ---
Author Organization [employer] Address [address] [place] [address] 7[address] [place] [address] Care Team Providers Care Wet Char Conveyor Tender Name Role Phone Myah Singh MD Primary Care Provider [phone] Reason for Visit * Reason Onset Date Comments Durable Medical Equipment 01/30/2023 Encounter Details Date Type Department Care Team (Late st Contact Info) Description 01/30/2023 Telephone [facility] [address] [place], [place] [phone] Myah Singh MD [address] [place], [place] [phone] Durable Medical Equipment Social History Tobacco Use [...] call me or CHACE Beltran also patient JUNIOR NETWORK ENGINEER can call them as they are the vendor for more information [phone] * Telephone Encounter - Uriahchadshy Rodriguezmahad Marion - 01/30/2023 10:00 AM EST Tc from pt JUNIOR NETWORK ENGINEER Jonathan stating that for the last two months pt Large Pull ups and Wipes have not been deliver Please contact jonathan at [phone] documented in this encounter Plan of Treatment Not on file documented as of this encounter Visit Diagnoses Not on filedocumented in this encounter Care Teams Wet Char Conveyor Tender Relationship Specialty Start Date End Date Myah Singh MD [address] [place] [address] PCP - General Family Medicine 11/08/12 [facility] 12/31/24 07/29/25 documented as of this encounter
--- OUTSIDE RECORDS SUMMARY | 2025-09-15 06:11 | XMS_ITS | Encounter Summary ---
Author Organization [facility] Address [address] [facility] [address] [place] [address] Phone Care Team Providers Care Road Roller Operator Name Role Phone Unavailable Primary Care Provider Unavailabl e Reason for Visit * Reason Comments Med Refill Encounter Details Date Type Department Care Team ([facility] st Contact Info) Description 12/10/2021 Refill [facility] [address] [facility] [address] [place] [phone] Chino Martinez MD [address] [facility] [address] [place] [phone] Social History Tobacco Use Types Packs/Day Years [...]
--- OUTSIDE RECORDS SUMMARY | 2025-09-15 06:11 | XMS_ITS | Clinical Summary ---
Author Organization [employer] Address [address] [place] [address] 7t [place] [address] Care Team Providers Care Technical Support Engineer Name Role Phone Myah Singh MD Primary Care Provider [phone] Allergies Active Allergy Reactions Criticality Noted Date [...] PM EDT): -Oct 2015 -Previously following with [facility] [place], upcoming appt -Continue risk factor mangement Assessment & Plan (01/07/2023 4:34 PM EST): -Oct 2015 -Previously following with [facility] [place], upcoming appt -Continue risk factor mangement [...] cm2. Mild aortic valve regurgitation. -Seen by synthetic gem press operator, Dr. Garcia in [facility] [place], on 07/27/23, since she is not a [...] cm2. Mild aortic valve regurgitation. -Seen by synthetic gem press operator, Dr. Garcia in [facility] [place], on 07/27/23, since she is not a [...] cm2. Mild aortic valve regurgitation. -Seen by synthetic gem press operator, Dr. Garcia in [facility] [place], on 07/27/23, since she is not a [...] -Pt has an upcoming appt with her synthetic gem press operator Assessment & Plan (01/07/2023 5:17 PM EST): - Most recent TTE 10/14/22: There is mild calcification of the aortic valve. There is moderate aortic valve stenosis. The peak aortic gradient is 33 mmHg.The mean gradient is 16 mmHg. There is mild aortic valve regurgitation. -Pt has loud murmur consistent with aortic stenosis -NSTEMI in 2015 -Pt has an upcoming appt with her synthetic gem press operator Anemia 01/07/2023 Assessment & Plan (01/07/2023 5:24 PM EST): - anemia of chronic disease (CKD, cirrhosis) - continue ferrous sulfate - check lab Diabetes mellitus, type 2 12/28/2022 Overview (04/07/2025): Frequent utis from jardiance Assessment & Plan (05/06/2025 11:29 AM EDT): Blood sugars are in range (90-110)without jardance, pt grandaughter and STOPBOARD ASSEMBLER deny any swelling, sob, orthopnea edema or [...] Plan (01/17/2025 5:56 AM EST): -Following with [facility] [place] medicine clinic, last seen in January [...] monitor periodically Osteopenia 01/07/2013 Anxiety 12/10/2012 Dementia ([facility]/HCC) 12/10/2012 Assessment & Plan (01/17/2025 5:58 AM EST): -multifactorial: Alzeheimer's; Hx CVA and TIA; hx COVID; depression / anxiety -following with Dr. Estevez, neurologist, last seen in Dec 2021, and psychiatrist Dr. Diaz -continue current medications prescribed by both neurologist and psychiatrist -it seems like patient was seeing psychiatrist while staying in the [place] [facility] -work on risk factor management -reviewed safety [...] Risk: CKD, age, NSTEMI, Hx CVA/TIA, DM2 -Windows Software Developer: Previously [facility] [place] pt has a new appt on 01/23/23 [...] Risk: CKD, age, NSTEMI, Hx CVA/TIA, DM2 -Windows Software Developer: Previously [facility] [place] pt has a new appt on 01/23/23 [...] Risk: CKD, age, NSTEMI, Hx CVA/TIA, DM2 -Windows Software Developer: Previously [facility] [place] appt on 01/23/23 (Grade [...] Risk: CKD, age, NSTEMI, Hx CVA/TIA, DM2 -Windows Software Developer: Previously [facility] [place] pt has a new appt on 01/23/23 [...] Risk: CKD, age, NSTEMI, Hx CVA/TIA, DM2 -Windows Software Developer: Previously [facility] [place], pt has a new appt on 01/23/23 [...] use - Followed by [facility], last seen in Jun 2024 [...] use - Followed by [facility], last seen in November 2023 [...] use - Followed by [facility], last seen on 05/31/23. - Continue mirabegron as prescribed, advised to have drug holiday from mirabegron, resume when pt's symptoms worsen Assessment & Plan (05/08/2023 11:04 AM EDT): - in a setting of dementia, DM2, and SGLT-2 inhibitor use - Followed by Dr. Vallecillo, [facility] - Continue mirabegron as prescribed Assessment & Plan (01/07/2023 4:51 PM EST): - in a setting of dementia, DM2, and SGLT-2 inhibitor use - Followed by Dr. Vallecillo, [facility] - Continue mirabegron as prescribed [...] Assessment & Plan (01/17/2025 6:08 AM EST): -Storage Brine Worker: Dr. Martinez -Avoid nephrotoxic drugs and use renal dosing. -Recheck renal function today -On Jardiance, at low-dose, 10mg daily. Caution with UTI Assessment & Plan (02/04/2024 1:13 PM EDT): -Storage Brine Worker: Dr. Martinez -Baseline: 09/26/22 BUN 29; SCr 1.2, eGFR 43, AST 12, ALT 19, AP 91 -Avoid nephrotoxic drugs and use renal dosing. -Recheck renal function today -On Jardiance, at low-dose, 10mg daily. Assessment & Plan (09/10/2023 4:32 PM EDT): -Storage Brine Worker: Dr. Martinez, last seen in 2016 or 2017. Per caregiver, pt was discharged due to stability -Baseline: 09/26/22 BUN 29; SCr 1.2, eGFR 43, AST 12, ALT 19, AP 91 -Avoid nephrotoxic drugs and use renal dosing. -Recheck renal function today -On Jardiance, at low-dose, 10mg daily. Assessment & Plan (05/08/2023 11:04 AM EDT): -Storage Brine Worker: Dr. Martinez, last seen in 2016 or 2017. Per caregiver, pt was discharged due to stability -Baseline: 09/26/22 BUN 29; SCr 1.2, eGFR 43, AST 12, ALT 19, AP 91 -Avoid nephrotoxic drugs and use renal dosing. -Recheck renal function today -On Jardiance, at low-dose, 10mg daily. Assessment & Plan (01/07/2023 4:54 PM EST): -Storage Brine Worker: Dr. Martinez, last seen in 2017 or [...] Type Department Care Team Description 08/09/2025 Refill [facility] [address] [place] [address] Myah Singh MD 08/07/2025 Orders Only GENERIC EXTERNAL DATA DEPARTMENT Provider, Generic External Data 08/04/2025 Refill [facility] [address] [place] [address] Myah Singh MD Type 2 diabetes mellitus with stage 3 chronic kidney disease, without long-term current use of insulin, unspecified whether stage 3a or 3b CKD ([facility]) 07/21/2025 Refill [facility] [address] [place], [place] [phone] Liliana Sears MD 07/21/2025 Refill [facility] [address] [place], [place] [phone] Myah Singh MD Allergic rhinitis, unspecified seasonality, unspecified trigger 07/10/2025 Telephone [facility] [address] [place], [place] [phone] Myah Singh MD Durable Medical Equipment (DME: [...] Whole Blood 90 60 - 115 mg/dL [facility] Comment:METER #: [id number] 08/07/2025 12:2 0 PM EDT 08/07/2025 4:35 PM EDT us Generic External Data Provider LAB BLOOD ORDERAB LES Final Result [facility] [address] [place] [phone] * SARS-CoV-2 RNA, Influenza A/B, and RSV RNA, Ql NAAT (08/07/2025 8:48 AM EDT) Pathologist [facility] Influenza A PCR NEGATIVE Negative [facility] Influenza B PCR NEGATIVE Negative [facility] Resp Syncy Virus RNA Qual PCR NEGATIVE Negative [facility] SARS COV2 PCR NEGATIVE Negative [facility] Comment:All test results mus [...] use by authorized laboratories.Testing performed on the [employer] ([employer]) GeneXpert utilizingreal-time RT-PCR.All SARS CoV2 and positive influenza A/B results arereported to [facility]. 08/07/2025 8:48 AM EDT 08/07/2025 8:51 AM EDT Generic External Data Provider LAB MICROBIOLOGY - GENERAL ORDERABLES Final Result [facility] [address] [place] [address] [phone] * Lipid Panel with Reflex to Direct LDL (01/22/2024 12:20 PM EST) Triglycerides 130 <150 mg/dL [facility] Comment:Desirable Triglyceri de: less than 150 mg/dLBorderline High Triglyceride 150-199 mg/dLHigh Triglyceride: 200-499 mg/dLVery High Triglyceride: greater than or equal to 5OO mg/dL Cholesterol 109 <200 mg/dL [facility] Comment:Desirable Cholestero l: less than 200 mg/dLBorderline High Cholesterol: 200-239 mg/dLHigh Cholesterol: greater than 239 mg/dL LDL Cholesterol Calculated 41 <100 mg/dL [facility] Comment:Desirable LDL: less than 100 mg/dLNear Optimal/Above Optimal LDL: 110- 129 mg/dLBorderline High LDL: 130-159 mg/dLHigh LDL: 160-189 mg/dLVery High LDL: greater than or equal to 190 mg/dL HDL Cholesterol 42 >40 mg/dL [facility] Comment:Desirable HDL: great er than 40 mg/dL Note: This HDL assay may give artificially low results in patients with liver disease. Blood 01/22/2024 12:2 0 PM EST 01/22/2024 1:11 PM EST Myah Singh MD LAB BLOOD ORDERABLES Final Resul t [facility] [address] [place] [phone] * (ABNORMAL) POCT glycosylated hemoglobin (Hgb A1c) (09/11/2023 10:29 AM EDT) Hemoglobin A1C 6.2(A) 4.0 - 6.0 % QC Media Lot # [id number] Lot# Expiration Date Blood Capillary blood specimen / Unknown 09/11/2023 10:29 AM EDT Myah Singh MD POINT OF CARE TEST ENTER/EDIT OR DERABLES Final Result from Last 3 Months or Most Recently Relevant to Health Maintenance Insurance [facility] CARE HOME OPTIONS (O D-SNP) [employer] [id number] Care Teams Technical Support Engineer Relationship Specialty Start Date End Date Myah Singh MD [address] [place] [address] [place] [address] PCP - General Family Medicine 11/08/12
--- OUTSIDE RECORDS SUMMARY | 2025-09-15 06:11 | XMS_ITS | Encounter Summary ---
Author Organization [email or web address] Address [address] [place] [address] Care Team Providers Care Civil Engineering Intern Name Role Phone Tony Arreola MD Primary Care Provider [phone] Encounter Details Date Type Department Care Team (Late st Contact Info) Description 12/21/2024 Lab Requisition [facility] - Main Lab [address] [place] [address] Tony Arreola MD [address] [place] [address] [address] [place], [phone] Weakness; Unspecified dementia, unspecified severity, without [...] Resul t [facility] [address] [place] [address], * (ABNORMAL) Complete blood count (12/23/2024 6:50 AM EST) [facility] WBC 6.0 4.8 - 10.8 K/mcL [...] LAB HEMETOLOGY METHOD 12/23/2024 12:49 PM EST [facility] Blood Venous blood specimen / Unknown Venipuncture / Unknown 12/23/2024 6:50 AM EST 12/23/2024 10:55 AM EST Tony Arreola MD LAB BLOOD ORDERABLES Final Resul t [facility] [address] [place] [address], documented in this encounter Visit Diagnoses Diagnosis Weakness Other malaise and fatigue Unspecified dementia, unspecified severity, without behavioral disturbance, psychotic disturbance, mood disturbance, and anxiety (CMS/HCC V24, CMS/HCC V28) documented in this encounter Care Teams Civil Engineering Intern Relationship Specialty Start Date End Date Tony Arreola MD [address] [place] [address], [phone] PCP - General Family Medicine 12/14/24 documented as of this encounter
--- OUTSIDE RECORDS SUMMARY | 2025-09-15 06:11 | XMS_ITS | Encounter Summary ---
Author Organization [employer] Address [address] [place] [address] Care Team Providers Care Lace Paper Machine Operator Name Role Phone Tony Arreola MD Primary Care Provider [phone] Encounter Details Date Type Department Care Team (Late st Contact Info) Description 11/29/[address] [facility] - Main Lab [address] [place] [address] Tony Arreola MD [address] [facility] [address] [place], [phone] Weakness; Unspecified dementia, unspecified severity, without [...] mmol/L LAB CHEMISTRY METHOD 12/02/2024 11:14 AM [facility] Potassium 4.0 3.5 - 5.5 mmol/L LAB CHEMISTRY METHOD 12/02/2024 11:14 AM [facility] Chloride 112(H) 96 - 110 mmol/L LAB CHEMISTRY METHOD 12/02/2024 11:14 AM [facility] CO2 27 21 - 32 mmol/L LAB CHEMISTRY METHOD 12/02/2024 11:14 AM [facility] Anion Gap 5 3 - 11 LAB CHEMISTRY METHOD 12/02/2024 11:14 AM [facility] Glucose 80 70 - 100 mg/dL LAB CHEMISTRY METHOD 12/02/2024 11:14 AM [facility] BUN 28(H) 5 - 25 mg/dL LAB CHEMISTRY METHOD 12/02/2024 11:14 AM [facility] Creatinine 1.19(H) 0.50 - 1.10 mg/dL LAB CHEMISTRY METHOD 12/02/2024 11:14 AM [facility] eGFR 44(L) >=60 mL/min/1. 73m2 LAB CHEMISTRY METHOD 12/02/2024 11:14 AM [facility] Comment:Calculation based on the Chronic Kidney Disease Epidemiology Collaboration (CKD-EPI) equation refit without adjustment for race. BUN/Creatinine Ratio 23.5 LAB CHEMISTRY METHOD 12/02/2024 11:14 AM [facility] Calcium 9.3 8.5 - 10.5 mg/dL LAB CHEMISTRY METHOD 12/02/2024 11:14 AM [facility] Blood Venous blood specimen / Unknown Venipuncture / Unknown 12/02/2024 7:21 AM EST 12/02/2024 10:33 AM EST us Tony Arreola MD LAB BLOOD ORDERABLES Final Resul t [facility] [address] [place] [address], * (ABNORMAL) Complete blood count (12/02/2024 7:21 AM EST) [facility] WBC 6.8 4.8 - 10.8 K/mcL LAB HEMETOLOGY METHOD 12/02/2024 10:57 AM [facility] RBC 4.40 3.80 - 4.80 M/mcL LAB HEMETOLOGY METHOD 12/02/2024 10:57 AM [facility] Hemoglobin 12.9 11.5 - 16.0 g/dL LAB HEMETOLOGY METHOD 12/02/2024 10:57 AM [facility] Hematocrit 41.3 35.0 - 47.0 % LAB HEMETOLOGY METHOD 12/02/2024 10:57 AM [facility] MCV 93.9 79.0 - 98.0 FL LAB HEMETOLOGY METHOD 12/02/2024 10:57 AM [facility] MCH 29.3 27.0 - 32.0 pcg LAB HEMETOLOGY METHOD 12/02/2024 10:57 AM [facility] MCHC 31.2(L) 32.0 - 37.0 g/dL LAB HEMETOLOGY METHOD 12/02/2024 10:57 AM [facility] RDW 14.5 11.0 - 15.0 % LAB HEMETOLOGY METHOD 12/02/2024 10:57 AM [facility] Platelets 155 130 - 400 K/mcL LAB HEMETOLOGY METHOD 12/02/2024 10:57 AM [facility] MPV 11.6(H) 7.0 - 11.0 FL LAB HEMETOLOGY METHOD 12/02/2024 10:57 AM [facility] NRBC 0.0 <1.0 % LAB HEMETOLOGY METHOD 12/02/2024 10:57 AM [facility] NRBC Absolute 0.00 <0.10 K/mcL LAB HEMETOLOGY METHOD 12/02/2024 10:57 AM EST [facility] Blood Venous blood specimen / Unknown Venipuncture / Unknown 12/02/2024 7:21 AM EST 12/02/2024 10:33 AM EST us Tony Arreola MD LAB BLOOD ORDERABLES Final Resul t [facility] [address] [place] [address], documented in this encounter Visit Diagnoses Diagnosis Weakness Other malaise and fatigue Unspecified dementia, unspecified severity, without behavioral disturbance, psychotic disturbance, mood disturbance, and anxiety (CMS/HCC V24, CMS/HCC V28) documented in this encounter Care Teams Lace Paper Machine Operator Relationship Specialty Start Date End Date Tony Arreola MD [address] [place] [address] [address] [place], [phone] PCP - General Family Medicine 12/14/24 documented as of this encounter
--- OUTSIDE RECORDS SUMMARY | 2025-09-15 06:12 | XMS_ITS | Encounter Summary ---
Author Organization [employer] Address [address] [facility] [address] [place] [address] Care Team Providers Care Vocal Music Instructor Name Role Phone Myah Singh MD Primary Care Provider [phone] Encounter Details Date Type Department Care Team ([facility] st Contact Info) Description 03/26/2025 Telephone [facility] [address] [place], [place] [phone] Myah Singh MD [address] [place], [place] [phone] Social History Tobacco Use Types Packs/Day Years [...] documented as of this encounter Care Teams Vocal Music Instructor Relationship Specialty Start Date End Date Myah Singh MD [address] [place] [phone] PCP - General Family Medicine 11/08/12 [facility] 12/31/24 07/29/25 documented as of this encounter
--- OUTSIDE RECORDS SUMMARY | 2025-09-15 06:12 | XMS_ITS | Encounter Summary ---
Author Organization [employer] Address [address] [facility] [address] [place] [address] Care Team Providers Care Acquisition Analyst Name Role Phone Myah Singh MD Primary Care Provider Reason for Visit * Reason Comments Med Refill Encounter Details Date Type Department Care Team (Late st Contact Info) Description 11/29/2023 Refill [facility] [address] [place], [place] [phone] Myah Singh MD [address] [place], [place] [phone] Vitamin D deficiency Social History Tobacco Use [...] documented as of this encounter Care Teams Acquisition Analyst Relationship Specialty Start Date End Date Myah Singh MD [address] [place] [phone] PCP - General Family Medicine 11/08/12 [facility] 12/31/24 07/29/25 documented as of this encounter
--- OUTSIDE RECORDS SUMMARY | 2025-09-15 06:12 | XMS_ITS | Encounter Summary ---
Author Organization [employer] Address [address] [facility] [address] [place] [address] Care Team Providers Care Hand Ii Thermal Cutter Name Role Phone Myah Singh MD Primary Care Provider [phone] Reason for Visit * Reason Comments Med Refill Encounter Details Date Type Department Care Team (Late st Contact Info) Description 10/22/2024 Refill [facility] [address] [place], [place] [phone] Myah Singh MD [address] [place], [place] [phone] Allergic rhinitis, unspecified seasonality, unspecified trigger Social [...] documented as of this encounter Care Teams Hand Ii Thermal Cutter Relationship Specialty Start Date End Date Myah Singh MD [address] [place] [address] PCP - General Family Medicine 11/08/12 [facility] 12/31/24 07/29/25 documented as of this encounter
--- OUTSIDE RECORDS SUMMARY | 2025-09-15 06:12 | XMS_ITS | Encounter Summary ---
Author Organization [employer] Address [address] [place] [address] Care Team Providers Care Vp Compliance Name Role Phone Tony Arreola MD Primary Care Provider [phone] Encounter Details Date Type Department Care Team (Late st Contact Info) Description 02/24/2025 Lab Requisition [facility] - Main Lab [address] [facility] [place] [address] Venus Mayberry MD [address] [place], [place] [id number] Essential (primary) hypertension; Type 2 diabetes mellitus [...] * Vitamin B12 (02/24/2025 6:34 AM EDT) [facility] Vitamin B-12 324 250 - 900 pcg/mL LAB CHEMISTRY METHOD 02/24/2025 12:24 PM EDT [facility] Blood Venous blood specimen / Unknown Venipuncture / Unknown 02/24/2025 6:34 AM EDT 02/24/2025 10:44 AM EDT us Venus Mayberry MD LAB BLOOD ORDERABLES Final Resul t Performing Organization Address City/[facility]/ZIP Co de Phone Number [facility] [address] [place] [address], [place] [phone] * Folate (02/24/2025 6:34 AM EDT) [facility] Folate 11.3 2.8 - 17.0 ng/ml LAB CHEMISTRY METHOD 02/24/2025 12:24 PM EDT [facility] Blood Venous blood specimen / Unknown Venipuncture / Unknown 02/24/2025 6:34 AM EDT 02/24/2025 10:44 AM EDT us Venus Mayberry MD LAB BLOOD ORDERABLES Final Resul t Performing Organization Address City/[facility]/ZIP Co de Phone Number [facility] [address] [place] [address], [place] [phone] * (ABNORMAL) Vitamin D 25 hydroxy (02/24/2025 6:34 AM EDT) Pathologist [facility] Vit D, 25-Hydroxy 29.9(L) 30.0 - 80.0 ng/mL LAB CHEMISTRY METHOD 02/24/2025 1:12 PM EDT [facility] Blood Venous blood specimen / Unknown Venipuncture / Unknown 02/24/2025 6:34 AM EDT 02/24/2025 10:44 AM EDT us Venus Mayberry MD LAB BLOOD ORDERABLES Final Resul t Performing Organization Address [facility] Co de Phone Number [facility] [address] [place] [address], * Thyroid stimulating hormone (02/24/2025 6:34 AM EDT) [facility] TSH 1.44 0.40 - 4.00 mcIU/mL LAB CHEMISTRY METHOD 02/24/2025 1:13 PM EDT [facility] Blood Venous blood specimen / Unknown Venipuncture / Unknown 02/24/2025 6:34 AM EDT 02/24/2025 10:44 AM EDT us Venus Mayberry MD LAB BLOOD ORDERABLES Final Resul t Performing Organization Address [facility] de Phone Number [facility] [address] [place] [address], [place] [phone] * Hemoglobin A1c (02/24/2025 6:34 AM EDT) [facility] Hemoglobin A1C 5.9 <6.5 % LAB CHEMISTRY METHOD 02/24/2025 9:29 PM EDT [facility] Mean Bld Glu Estim. 123 mg/dL LAB CHEMISTRY METHOD 02/24/2025 9:29 PM EDT [facility] Blood Venous blood specimen / Unknown Venipuncture / Unknown 02/24/2025 6:34 AM EDT 02/24/2025 10:44 AM EDT us Venus Mayberry MD LAB BLOOD ORDERABLES Final Resul t [facility] [address] [place] [address], [place] [phone] * (ABNORMAL) Comprehensive metabolic panel (02/24/2025 6:34 AM EDT) Sodium 142 133 - 145 mmol/L LAB CHEMISTRY METHOD 02/24/2025 12:24 PM EDT [facility] Potassium 4.1 3.5 - 5.5 mmol/L LAB CHEMISTRY METHOD 02/24/2025 12:[address] [facility] Chloride 108 96 - 110 mmol/L LAB CHEMISTRY METHOD 02/24/2025 12:[address] [facility] CO2 28 21 - 32 mmol/L LAB CHEMISTRY METHOD 02/24/2025 12:[address] [facility] Anion Gap 6 3 - 11 LAB CHEMISTRY METHOD 02/24/2025 12:[address] [facility] Glucose 91 70 - 100 mg/dL LAB CHEMISTRY METHOD 02/24/2025 12:[address] [facility] BUN 30(H) 5 - 25 mg/dL LAB CHEMISTRY METHOD 02/24/2025 12:[address] [facility] Creatinine 1.02 0.50 - 1.10 mg/dL LAB CHEMISTRY METHOD 02/24/2025 12:[address] [facility] eGFR 53(L) >=60 mL/min/1. 73m2 LAB CHEMISTRY METHOD 02/24/2025 12:[address] [facility] Comment:Calculation based on the Chronic Kidney Disease Epidemiology Collaboration (CKD-EPI) equation refit without adjustment for race. BUN/Creatinine Ratio 29.4 LAB CHEMISTRY METHOD 02/24/2025 12:[address] [facility] Calcium 10.5 8.5 - 10.5 mg/dL LAB CHEMISTRY METHOD 02/24/2025 12:24 PM EDT [facility] AST (SGOT) 31 10 - 42 unit/L LAB CHEMISTRY METHOD 02/24/2025 12:24 PM EDT [facility] ALT (SGPT) 36 10 - 60 unit/L LAB CHEMISTRY METHOD 02/24/2025 12:24 PM EDT [facility] Alkaline Phosphatase 82 42 - 121 unit/L LAB CHEMISTRY METHOD 02/24/2025 12:24 PM EDT [facility] Total Protein 6.8 6.0 - 8.0 g/dL LAB CHEMISTRY METHOD [facility] Albumin 3.1(L) 3.2 - 5.0 g/dL LAB CHEMISTRY METHOD 02/24/2025 12:24 PM EDT [facility] Total Bilirubin 0.4 0.0 - 1.4 mg/dL LAB CHEMISTRY METHOD 02/24/2025 12:24 PM EDT [facility] Blood Venous blood specimen / Unknown Venipuncture / Unknown 02/24/2025 6:34 AM EDT 02/24/2025 10:44 AM EDT us Venus Mayberry MD LAB BLOOD ORDERABLES Final Resul t [facility] [address] [place] [address], * (ABNORMAL) Complete blood count (02/24/2025 6:34 AM EDT) WBC 6.0 4.8 - 10.8 K/mcL LAB HEMETOLOGY METHOD 02/24/2025 1:12 PM EDT [facility] RBC 4.80 3.80 - 4.80 M/mcL LAB HEMETOLOGY METHOD 02/24/2025 1:[address] [facility] Hemoglobin 14.3 11.5 - 16.0 g/dL LAB HEMETOLOGY METHOD 02/24/2025 1:[address] [facility] Hematocrit 45.6 35.0 - 47.0 % LAB HEMETOLOGY METHOD 02/24/2025 1:[address] [facility] MCV 94.2 79.0 - 98.0 FL LAB HEMETOLOGY METHOD 02/24/2025 1:[address] [facility] MCH 29.5 27.0 - 32.0 pcg LAB HEMETOLOGY METHOD 02/24/2025 1:[address] [facility] MCHC 31.4(L) 32.0 - 37.0 g/dL LAB HEMETOLOGY METHOD 02/24/2025 1:[address] [facility] RDW 14.7 11.0 - 15.0 % LAB HEMETOLOGY METHOD 02/24/2025 1:[address] [facility] Platelets 154 130 - 400 K/mcL LAB HEMETOLOGY METHOD 02/24/2025 1:[address] [facility] MPV 11.7(H) 7.0 - 11.0 FL LAB HEMETOLOGY METHOD 02/24/2025 1:[address] [facility] NRBC 0.0 <1.0 % LAB HEMETOLOGY METHOD 02/24/2025 1:[address] [facility] NRBC Absolute 0.00 <0.10 K/mcL LAB HEMETOLOGY METHOD 02/24/2025 1:[address] [facility] Blood Venous blood specimen / Unknown Venipuncture / Unknown 02/24/2025 6:34 AM EDT 02/24/2025 10:44 AM EDT Venus Mayberry MD LAB BLOOD ORDERABLES Final Resul t [facility] [address] [place] [address], documented in this encounter Visit Diagnoses Diagnosis Essential (primary) hypertension Unspecified essential hypertension Type 2 diabetes mellitus without complications (CMS/HCC V24, CMS/HCC V28) documented in this encounter Care Teams Vp Compliance Relationship Specialty Start Date End Date Tony Arreola MD [address] [place] [address], [phone] PCP - General Family Medicine 12/14/24 documented as of this encounter
--- OUTSIDE RECORDS SUMMARY | 2025-09-15 06:12 | XMS_ITS | Encounter Summary ---
Author Organization [employer] Address [address] [facility] [address] [place] [address] Care Team Providers Care Steam Plant Control Room Operator Name Role Phone Myah Singh MD Primary Care Provider [phone] Reason for Visit * Reason Comments Med Refill Encounter Details Date Type Department Care Team (Late st Contact Info) Description 05/22/2024 Refill [facility] [address] [place], [place] [phone] Myah Singh MD [address] [place], [place] [phone] Social History Tobacco Use Types Packs/Day Years [...] documented as of this encounter Care Teams [employer] Control Room Operator Relationship Specialty Start Date End Date Myah Singh MD [address] [place] [address] PCP - General Family Medicine 11/08/12 [facility] 12/31/24 07/29/25 documented as of this encounter
--- OUTSIDE RECORDS SUMMARY | 2025-09-15 06:12 | XMS_ITS | Data Portability ---
Author Organization [facility], Main Office Address [address] [facility], [address] [place] [address] Care Team Providers Care Floor Surfacer Name Role Phone [facility] ([facility] OTHER Assessment No assessment recorded. Plan [...] and Address Organization Details Recorded Time Asthma [id number] Active 2017 ANGELITA VANG [address] [facility], [address], [place], [address] , [facility] [employer] [facility] 8 15:12:32 Dementia 57573164 Active 2017 ANGELITA VANG [address] [facility], [address], [place], [address] , [facility] [employer] 8 15:12:53 Depressiv e disorder 47679478 Active 2017 ANGELITA VANG [address] [facility], [address], [place], [address] , [facility] [employer] 8 15:13:06 Coronary arteriosc lerosis 07800290 Active 2017 history of NSTEMI ANGELITA VANG [address] [facility], [address], [place], [address] , [facility] [employer] 8 15:13:24 Hyperlipi demia 81975841 Active 2017 ANGELITA VANG [address] [facility], [address], [place], [address] , [facility] 8 15:14:00 Essential hypertens ion 27901473 Active 2017 ANGELITA VANG [address] [facility], [address], [place], [address] , [facility] 8 15:14:57 History of cerebrova scular accident 540191364 Active 2017 right sided weakness ANGELITA VANG [address] [facility], [address], [place], [address] , [facility] 8 15:15:19 Influenza 2811768 Active 2017 ANGELITA VANG [address] [facility], [address], [place], [address] , [facility] 8 16:02:49 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 Active 2017 ANGELITA VANG [address] [facility], [address], [place], [address] , [facility] 8 16:05:54 Osteoporo sis 27160495 Active 2017 ANGELITA VANG [address] [facility], [address], [place], [address] , [facility] 8 16:06:06 Gastroeso phageal reflux disease 618355034 Active 2017 ISABELLE ALYSSA MARINE SPECIALIST [address] [place] [address], [address], [place], [address] , [facility] 8 16:08:23 Asthenia 38732836 Active 2017 Thais Rocha MD [address] [place] [address], [facility] [address], [place], [address] , [facility] 8 13:54:57 Acute kidney injury 67767734 Active 2017 Thais Rocha MD [address] [place] [address], [address], [place], [address] , [facility] 8 14:30:45 Type 2 diabetes mellitus 37515193 Active 2023 Not Available [facility] 5 10:33:31 Muscle weakness 21440098 Active 2023 Not Available [facility] 5 10:33:31 Difficult y walking 492548808 Active 2023 Not Available [facility] 5 10:33:32 Dyspnea 692115827 Active 2023 Not Available [facility] 5 10:33:32 Anxiety disorder 505333255 Active 2023 Not Available [facility] 5 10:33:33 Insomnia 935473623 Active 2023 Not Available [facility] 5 10:33:34 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 24453744475 9100 Active 2023 Not Available [facility] 5 10:33:34 Cerebrova scular disease 77651198 Active 2023 Not Available [facility] 5 10:33:35 Fall Active 2023 Not Available [facility] 5 10:33:36 Allergic contact dermatiti s 157603363 Active 2023 Not Available [facility] 5 10:33:37 Diaphragm atic hernia 41388131 Active 2023 Not Available [facility] 5 10:33:38 Constipat ion 62179354 Active 2023 Not Available [facility] 5 10:33:38 Coronavir us infection 468998334 Active 2023 Not Available [facility] 5 10:33:39 Dementia associate d with another disease 009699501 Active 2023 Not Available [facility] 5 10:33:39 Chronic kidney disease stage 3 201974764 Active 2023 Not Available [facility] 5 10:33:39 Chronic kidney disease stage 3A 696486375 Active 2024 Tony Arreola MD [address] [facility], [address], [place], [address] , [facility] 5 08:58:43 Cirrhosis of liver 09821483 Active 2024 Tony Arreola MD [address] [facility], [address], [place], [address] , [facility] 5 08:58:50 Aortic valve stenosis 67149200 Active 2024 Tony Arreola MD [address] [facility], [address], [place], [address] , [facility] [employer] 5 08:59:06 Diabetes mellitus 38771909 Active 2024 Tony Arreola MD [address] [facility], [address], [place], [address] , [facility] [employer] 5 08:59:17 Delusiona l disorder 47340391 Active 2024 Not Available [facility] 5 12:34:52 Problem Notes None recorded. Medical Equipment None Reported. Allergies Allergen ID Allergen Name Allergen Category Reaction Reaction Severity Criticality Documentation Date Start Date Code Code System Note Provider Name and Address Organization Details Recorded Time 21428 Reglan medicatio n Not available Not available Not available 12/19/20242023 9230 RxNorm Not Available [facility] 5 10:33:44 9455 tetracain e medicatio n Not available Not available Not available 01/03/20182023 18991 RxNorm Not Available [facility] 5 10:33:44 9456 benzocain e medicatio n Not available Not available Not available 01/03/20182023 1399 RxNorm Not Available [facility] 5 10:33:44 9457 butamben medicatio n Not available Not available Not available 01/03/20182023 23433 RxNorm Not Available [facility] 5 10:33:44 9458 morphine medicatio n Not available Not available Not available 01/03/20182023 7052 RxNorm Not Available [facility] 5 10:33:44 9459 metoclopr amide Not available Not available Not available Not available 01/03/2018 6915 RxNorm ISABELLE SHAH, MARINE SPECIALIST [address] [facility], [address], [place], [address], [facility] [employer] 8 15:01:21 9460 ceftazidi me anhydrous medicatio n Not available Not available Not available 01/03/20182023 16338 84 RxNorm Not Available [facility] [...] Available Not Available Not Avai lable Acid Armature Winder Repairer (omeprazole ) 20 mg capsule,del ayed release [...] 12/02/2024 122/57 mm[Hg] Tony Arreola MD [address] [facility], [address], [place], [address], [facility] 12/02/2024 08:50:04 Date Recorded Heart rate Respiratory rate Body temperature Oxygen saturation Oxygen saturation in Arterial blood by Pulse oximetry Systolic And Diastolic Provider Name and Address Organization Details Last Updated DateTime 5 67 /min 14 /min 97.9 [degF] 96 % 96 % 102/49 mm[Hg] HAKEEM JOHNSON NP [address] [facility], [address], [place], [address], [facility] 5 14:47:00 Date Recorded Body height Body mass index (BMI) Body weight Heart rate Respiratory rate Body temperature Oxygen saturation Oxygen saturation in Arterial blood by Pulse oximetry Systolic And Diastolic Provider Name and Address Organization Details Last Updated DateTime 5 152.4 cm 32.9 kg/m2 69890.9 6 g 72 /min 20 /min 97.3 [degF] 95 % 95 % 114/63 mm[Hg] Thais Rocha MD [address] [facility], [address], [place], [address], [facility] 5 18:57:01 Social History Question Answer Notes LastModified by Organizat ion Details LastModified Time Tobacco Smoking Status Former Smoker Thais Rocha MD [address] [facility], [address], [place], [address], [facility] 01/04/2018 14:12:51 Do You Have An [...] Do You Have A Medical Power Of Group Fitness Department Head? Yes Information not available 01/04/2018 What Was [...] ICD10 Code Diagnosis IMO Codes Diagnosis Note [id number] ANGELITA VANG [address] [place] [address] 01/03/2018 15:00:09 01/12/2018 16:14:28 Influenza 1598625 J10.89 Flu A + in hospitalTa miflu was completedm onitor Essential hypertension 30658053 I10 lisinopril 20 mg qdlasix 20 mg qdnorvasc 5 mg qdmonitor b/p and labs Hyperlipidemia 08277016 E78.2 atorvastat in 20 mg qdmonitor labs Depressive disorder 3548 9007 F32.0 prozac 40 mg qdremeron 15 mg qdtrazodon e 50 mg qdhaldol 1 mg qdneg consult prnmonitor mood Dementia 34128120 F02.80 namenda 10 mg bidaricept 10 mg qdmonitor mood Coronary arteriosclerosis 72116927 I25.10 ASA 81 mg qdmonitor Osteoporosis 24483403 M8 1.0 calcium carbonate/ vit. D3 600/vit d bidmonitor labs Bladder mu scle dysfunction - overactive 075724764 N32.81 myrbetriq 50 mg qdincontin ent of urinemonit or History of cerebrovascular accident 984457031 Z86.73 right sided weaknessmo nitor Asthma 408212986 J45.20 zyrtec 10 mg qdmonitor resp status Gastroesop hageal reflux disease 389573381 K21.9 omeprazole 40 mg qdmonitor Asthenia 90257244 R53.1 PT/OT [facility] and [facility]ul [facility] [address] [facility] [address] [place] [address] rd [place] [address] 01/04/2018 13:51:14 01/12/2018 16:19:02 Asthenia 92375459 R53.1 Deconditio david after acute illness, needs PT/OT for strengthen ing and gait training. At baseline ambulates with walker. Anticipate less than 30 day stay and return home. Influenza 3104466 J10.89 Positive for influenza A in hospital, completed course of Tamiflu.Mo nitor Essential hypertension 48269059 I10 Stable on lisinopril 20 mg qd, lasix 20 mg qd and norvasc 5 mg qd.monitor BP and labs Hyperlipidemia 64909074 E78.2 Continue atorvastat in 20 mg qdmonitor chol with PCP. Depressive disorder 3548 9007 F32.0 Continue prozac 40 mg qd, remeron 15 mg qd, trazodone 50 mg qd and haldol 1 mg qd. Monitor mood and consider NEG consult Dementia 79231100 F02.80 Continue namenda 10 mg bid and aricept 10 mg qd. Expect continued decline. Provide supportive care. Coronary arteriosclerosis 38511238 I25.10 Continue ASA 81 mg qd and statin. F/U with Cardio prn Osteoporosis 32681751 M8 1.0 Continue calcium carbonate/ vit. D3 600/vit d bid Bladder mu scle dysfunction - overactive 501465220 N32.81 Continue myrbetriq 50 mg qdmonitor History of cerebrovascular accident 991771316 Z86.73 Residual right sided weakness. PT/OT as above. Follow for recurrence . Asthma 024876850 J45.20 Continue zyrtec 10 mg qdmonitor resp status Gastroesop hageal reflux disease 655583793 K21.9 No current sxs, continue omeprazole 40 mg qdmonitor Acute kidney injury 1466 9001 N17.8 Improved in hospital, not 100% nl. Will recheck today. May have baseline mild CRF. [address]2877 ANGELITA VANG MICHELLE [address] [place] [address] [place] [address] 01/08/2018 13:49:05 01/12/2018 16:24:28 Cough 40456271 R05 bilateral lungs with wheezes and rhonchi throughout cough noted but non productive had flu in hospitalPP D was planted and is 30 mmchest x-ray orderedduo nebs ordered qid x3 days and prnmonitor for worsening symptoms 01573 ANGELITA VANG MICAELA MICHELLE [address] [place] [address] 01/10/2018 13:57:28 01/12/2018 16:27:43 Cough 93031319 R05 continues with cough but now has yellow sputumstat es she feels betterbila teral lungs are clear nowcontinu e to monitor [id number] Tony Arreola MD [address] [address] 01/15/2018 10:39:11 01/15/2018 13:20:57 Acute low back pain 931062842 M54.5 x ray L-S spineproba ble mild left sacroillii tisPT OT eval and treattylen ol for paincontin ue to monitorcon isder SI brace 85248 ANGELITA VANG [address] [address] 01/24/2018 13:45:00 01/25/2018 11:35:41 Dementia 05073632 F02.80 namenda 10 mg bidaricept 10 mg qdfollow up with PCP Hyperlipidemia 79985135 E78.2 atorvastat in 20 mg qdfollow up with PCP Essential hypertension 78043971 I10 lisinopril 20 mg qdlasix 20 mg qdnorvasc 5 mg qdfollow up with PCP Gastroesop hageal reflux disease 132509731 K21.9 omeprazole 40 mg qdfollow up with PCP Osteoporosis 24746690 M8 1.0 calcium carbonate/ vit. D3 600/vit d bidtylenol prn pain follow up with PCP Depressive disorder 3548 9007 F32.0 prozac 40 mg qdremeron 15 mg qdtrazodon e 50 mg qdhaldol 1 mg qdfollow up with PCP Asthma 322482774 J45.20 zyrtec 10 mg qdfollow up with PCP Coronary arteriosclerosis 81976715 I25.10 ASA 81 mg qdfollow up with PCP Bladder mu scle dysfunction - overactive 137116883 N32.81 myrbetriq 50 mg qdfollow up with PCP History of cerebrovascular accident 939383492 Z86.73 right sided weaknessfo llow up with PCP [id number] Tony Arreola MD [facility] [address] [place], [place] [address] 12/02/2024 08:34:30 12/03/2024 11:00:58 Asthenia 45427546 R53.1 PT OT Eval and treatmonit or fall risk and need for increased support in community Essential hypertension 66156077 I10 lisinopril 20 mg qdnorvasc 5 mg qdmonitor bp and need to titrate Hyperlipidemia 74642297 E78.2 lipitor 20 mg qdcontinue d Depressive disorder 3548 9007 F32.0 prozac 40 mg qdremeron 15 mg qdmonitor moodsee above Dementia 51827292 F02.80 baseline dementiain voke [facility] - granddaugh tercontinu e supportive caremonito r for behaviorsp sych eval prnaricept 10 mg qdnamenda 10 mg bidof note currently on haldol qd - will await psych rec Coronary arteriosclerosis 90240804 I25.10 lipitor 20 mg qdasa 81 mg qdmonitor forupdate cards with concerns Gastroesop hageal reflux disease 214330207 K21.9 omeprazole 40 mg qdmonitor for sx relief COVID-19 730880853 U07.1 limited informatio n will request dc summary appears dx with covid now completed treatment Diabetes mellitus 546429 09 E11.9 carrying dx added to PMHjardian ce 10 mg qdmonitor blood glucose prn Aortic valve stenosis 60 278807 I35.0 limited informatio n availabler equest notes from PCP Cirrhosis of liver K74.69 limited informatio n availabler equest notes from PCP Chronic ki dney disease stage 3A 244525006 N18.31 monitor renal functionav oid nephrotoxi c meds as ablenephro consult prn [id number] HAKEEM JOHNSON NP [facility] [address] [place] [address] 12/09/2024 14:46:28 12/11/2024 08:32:16 Asthenia 85232531 R53.1 PT OT Eval and treatmonit or fall risk and need for increased support in community Dementia 95976467 F02.80 baseline dementiain voke HCP - granddaugh tercontinu e supportive caremonito r for behaviorsp sych eval prnaricept 10 mg qdnamenda 10 mg bidof note currently on haldol qd - will await psych rec COVID-19 561344759 U07.1 limited informatio n appears dx with covid now completed treatmentm onitor for sequelae Essential hypertension 98615324 I10 BP soft the past week or so.CBC today stable, chem pendingMai ntain fluidsCurr ently on:lisinop ril 20 mg qdnorvasc 5 mg qd - reduce to 2.5 mg qdmonitor bp and need to titrate Hyperlipidemia 73210515 E78.2 Continue lipitor 20 mg qdConsider stopping, ? benefit vs, risk in frail elder Depressive disorder 8718 9007 F32.0 prozac 40 mg qdremeron 15 mg qdmonitor moodsee above Coronary arteriosclerosis 95150438 I25.10 Continue:l ipitor 20 mg qdasa 81 mg qdmeds for BP controlmon itor VS, CP statusupda te cards with concerns Gastroesop hageal reflux disease 553090967 K21.9 Continue omeprazole 40 mg qdmonitor for sx relief Diabetes mellitus 066726 09 E11.9 carrying dx added to PMHjardian ce 10 mg qdmonitor blood glucose - bid x 7 days, then re-eval.ch yovany A1C prn Aortic valve stenosis 60 377457 I35.0 limited informatio n availabler equest notes from PCP Cirrhosis of liver K74.69 limited informatio n availabler equest notes from PCP Chronic ki dney disease stage 3A 638901373 N18.31 monitor renal functionav oid nephrotoxi c meds as ablenephro consult prn [id number] MD RICARDA Engle [address] [place] [address] 12/19/2024 18:31:17 12/20/2024 16:13:52 Diabetes mellitus 98468892 E11.9 With low sugars since here.Will change fingerstic ks to fasting on Mon & and prn (compromis e with granddaugh ter from my preference of M/W/F).Con tinue Jardiance 10 mg qd. [id number] FLO LEE, SHAHZAD-C RICARDA [address] [place] [address] 12/24/2024 09:08:15 12/31/2024 08:39:05 Diabetes mellitus 88179145 E11.9 With low sugars since here.Myra nue Jardiance 10 mg qd.monitor with VNAconside r decrease in jardiance if BS remains < 100 given age of 89 Asthenia 05560770 R53.1 continue PT OTworking on doing stairsfami ly very supportive VNA services in place per Dementia 76957378 F02.80 baseline dementiain voke HCP - granddabreanna teraricept 10 mg qdnamenda 10 mg bidhaldol once daily COVID-19 933213295 U07.1 resolved Essential hypertension 54270369 I10 improved with reduced dose of amlodipine lisinopril 20 mg qdnorvasc 2.5 mg qdmonitor bp and consider decrease outptpermi ssive BP goals for frail elderly of < 160/ 90 Hyperlipidemia 61345947 E78.2 Continue lipitor 20 mg qdlipids yearly outpt Depressive disorder 5848 9007 F32.0 prozac 40 mg qdremeron 15 mg qdmonitor mood outpt Coronary arteriosclerosis 72187336 I25.10 Continue:l ipitor 20 mg qdasa 81 mg qdmeds for BP control Gastroesop hageal reflux disease 048336677 K21.9 Continue omeprazole 40 mg qdmonitor for sx relief outpt Aortic valve stenosis 60 803400 I35.0 limited informatio n availablen o CP or sob here Cirrhosis of liver 91720 007 K74.69 limited informatio n available Chronic ki dney disease stage 3A 502592181 N18.31 monitor renal function, stable 12/23 labsavoid nephrotoxi c meds as ablenephro consult prn Conjunctivitis 8785506 H 10.9 erythro ophthalmic qid x 7 daysmonito r for improvemen t [id number] MICHAEL RAMOS [facility] [address] [address] 12/27/2024 09:21:35 12/31/2024 09:41:18 Diabetes mellitus 27174075 E11.9 With low sugars since here.Myra nue Jardiance 10 mg qd.monitor with VNAconside r decrease in jardiance if BS remains < 100 given age of 89f/up with pcp Asthenia 23841579 R53.1 completed STR stayable to do stairshas MARKING CLERK 6 hr/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 at homefamily very supportive VNA services in place per SWf/up with pcp Dementia 06366452 F02.80 baseline dementiain [facility] e supportive care with ELECTROPLATING SALES REPRESENTATIVE 6 hr per day at homearicep t 10 mg qdnamenda 10 mg bidhaldol once dailyf/up with pcp COVID-19 104737028 U07.1 resolvedf/ up with pcp Essential hypertension 37270320 I10 improved with reduced dose of amlodipine lisinopril 20 mg qdnorvasc 2.5 mg qdmonitor bp and consider decrease outptpermi ssive BP goals for frail elderly of < 160/ 89f/up with pcp Hyperlipidemia 36182631 E78.2 Continue lipitor 20 mg qdlipids yearly outptf/up with pcp Depressive disorder 9893 9007 F32.0 prozac 40 mg qdremeron 15 mg qdmonitor mood outptf/up with pcp Coronary arteriosclerosis 31229475 I25.10 Continue:l ipitor 20 mg qdasa 81 mg qdmeds for BP controlf/u p with pcp Gastroesop hageal reflux disease 265689199 K21.9 Continue omeprazole 40 mg qdmonitor for sx relief outptf/up with pcp Aortic valve stenosis 60 871298 I35.0 limited informatio n availablen o CP or sob heref/up with pcp Cirrhosis of liver 007 K74.69 limited informatio n availablef /up with pcp Chronic ki dney disease stage 3A 036128357 N18.31 monitor renal function, stable 12/23 labsavoid nephrotoxi c meds as ablenephro consult prnf/up with pcp Conjunctivitis 2868180 H 10.9 erythro ophthalmic qid x 7 [...] Gonzalez Member ID Guarantor Name 12/31/2024 1 [facility] - DOS ON OR AFTER 2023 - MEDICARE ADVANTAGE [place] & [place] (MEDICARE REPLACEMENT/ADV ANTAGE - PPO) Sienna Mendez [id number] Elena Hurtado 12/02/2024 1 [facility] - DOS PRIOR TO 2023 - DUAL ELIGIBLE (MEDICARE REPLACEMENT/ADV ANTAGE - HMO) Sienna Mendez [id number] Elena Hurtado 12/31/2024 2 [place]: [facility] Sienna Andrea [id number] Elena Hurtado Notes Date Note Type Note [...] therapy eval and treat Tony Arreola MD [address] [place] [address], [address], [place], [address], [facility] [employer] [facility] 12/02/2024 09:20:00 12/09/2024 text/html Sienna is [...] issues reported by nsg. Case discussed with MARKING CLERK, who reports she did not eat as well today compared to other days. No other concerns. VSS, BP on the soft side the past week.Labs stable, chem pending today.No BS documented PMH: dementia , crf stage 3, cirrhosis, , dm, htn, cad, gerd, hld, depression, hx CVA HAKEEM JOHNSON NP [address] [facility], [facility] [address], [place], [address], [facility] 12/09/2024 15:01:58 12/19/2024 text/html I am asked to see this 89 yo japanese speaking woman rayshawn because her granddaughter is [...] depression, and dementia. Thais Rocha MD [address] [facility], [address], [place], [address], [facility] 12/19/2024 19:10:59 12/24/2024 text/html Patient is an [...] GERD, depression, and dementia. ATIF RAMOSC [address] [facility], [address], [place], [address], [facility] 12/29/2024 16:21:25 12/27/2024 text/html Patient is an [...] and received 6 hrs per day of MARKING CLERK care. Seen today and she is medically clear for dc home with meds and services. Her PMH includes HTN, depression, hx of CVA, CAD s/p NSTEMI, cirrhosis, asthma, HLD, CKD stage 3B, GERD, depression, and dementia. ATIF RAMOSC [address] [facility], [address], [place], [address], [facility] 12/27/2024 09:38:55 OBGyn Episode No OBEpisode recorded.
[2025-09-15 07:00] LABS: Hematocrit 40.5 % (37.0-47.0); Hemoglobin 12.7 g/dl (12.0-16.0); Imm Gran Abs Auto 0.01 X10*3/uL (0.00-0.03); Imm Gran Pct Auto 0.2 % (0.0-0.4); Lymphocytes Absolute Auto 1.1 X10*3/uL (1.2-4.9); Mean Corpuscular HGB Conc 31.4 g/dl (31.0-35.0); Mean Corpuscular Hemoglobin 29.2 pg (27.0-33.0); Mean Corpuscular Volume 93.1 fL (80.0-98.0); NRBC Abs Auto 0.000 X10*3/uL (0.0-0.012); NRBC Pct Auto 0.0 /100WBC (0.0-0.2); Platelet Count 144 X10*3/uL (160-400); Red Blood Count 4.35 X10*6/uL (4.20-5.50); White Blood Count 5.9 X10*3/uL (4.8-10.8)
[2025-09-15 07:14] LABS: Anion Gap 9 (12-20); Blood Urea Nitrogen 15 mg/dL (9-16); Calcium 9.2 mg/dL (8.4-10.2); Carbon Dioxide 27 mmol/L (22-29); Chloride 111 mmol/L (96-108); Estimated Glomerular Filt Rate 59; Potassium 3.4 mmol/L (3.3-5.1); Sodium 144 mmol/L (135-145)
== END 2025-09-15 06:09 | disposition home or self-care (01) ==
LOC: HO.MMNH1L 06:08
PROVIDERS: Visit Provider Physician Assistant Medical
DX: Z13.89 Encounter for screening for other disorder (principal)
CPT/HCPCS: 36415; 80048; 85025

== ENCOUNTER 2025-09-25 05:50 | Outpatient (REF) | payer OTHER, SELFPAY ==
[2025-09-25 05:52] LABS: MANUAL DIFF FLAG NO
--- OUTSIDE RECORDS SUMMARY | 2025-09-25 05:53 | XMS_ITS | Patient Health Record ---
Author Organization [facility] Address [address] [place] [address] Care Team Providers Care Moisture Meter Operator Name Role Phone Samantha GARCIA, Myah Primary Care Provider Cali Bailey [phone] Allergies Allergen (clinical drug ingredient) Drug/Non Drug [...] Notes Problem Gastroesophageal reflux disease without esophagitis (765979109) Gastroesophageal reflux disease without esophagitis (K21.9) Active confirmed Problem Elevated liver enzymes level (118497435) Elevated liver enzymes (R74.8) Active confirmed Problem Constipation (15231526) Constipation, unspecified constipation type (K59.00) Active confirmed Plan Of Treatment Pending Test Test Name Order Date LIVER PROFILE 04/06/2016 Insurance Providers Payer Name Payer Address Payer Phone Subscriber Number Group Number Insured Name Patient Relationship to Insured Coverage Start Date Coverage End Date [facility] [address] [place] [address] [id number] ZITA PAPPAS Self - patient is the insured MEDICARE OF [place] [address] [place] [address] [phone] [id number] ZITA PAPPAS Self - patient is the insured Medical (General) History Medical History History ICD Code GERD--UPPER ENDOSCOPY & COLO NOSCOPY IN 2007--Large HH with tiny area of Polanco's esophagus, no dysplasia; normal colonoscopy DEPRESSION HYPERTENSION HISTORY OF STROKE Kidney stones Denies [place],DM,lung disease,renal disease minor stroke and heart attack [...]
--- OUTSIDE RECORDS SUMMARY | 2025-09-25 05:53 | XMS_ITS | Encounter Summary ---
Author Organization [employer] Address [address] [facility] [address] [place] [address] Care Team Providers Care Television Picture Tube Rebuilder Name Role Phone Myah Singh MD Primary Care Provider [phone] Encounter Details Date Type Department Care Team (Late st Contact Info) Description 01/30/2023 Telephone [facility] [address], [place] [phone] Myah Singh MD [address] [place], [place] [phone] Social History Tobacco Use Types Packs/Day Years [...] on filedocumented in this encounter Care Teams Television Picture Tube Rebuilder Relationship Specialty Start Date End Date Myah Singh MD [address] [place], [place] [phone] PCP - General Family Medicine 11/08/12 [facility] 12/31/24 07/29/25 documented as of this encounter
--- OUTSIDE RECORDS SUMMARY | 2025-09-25 05:53 | XMS_ITS | Encounter Summary ---
Author Organization [facility] Address [address] [place] [address] Care Team Providers Care Missile Facilities Repairer Name Role Phone Tony Arreola MD Primary Care Provider [phone] Encounter Details Date Type Department Care Team (Late st Contact Info) Description 02/24/2025 Lab Requisition [facility] - Main Lab [address] [facility] [place] [address] Venus Mayberry MD [address] [place], [place] [phone] Essential (primary) hypertension; Type 2 diabetes mellitus [...] * Vitamin B12 (02/24/2025 6:34 AM EDT) [facility] Vitamin B-12 324 250 - 900 pcg/mL LAB CHEMISTRY METHOD 02/24/2025 12:24 PM EDT [facility] Blood Venous blood specimen / Unknown Venipuncture / Unknown 02/24/2025 6:34 AM EDT 02/24/2025 10:44 AM EDT us Venus Mayberry MD LAB BLOOD ORDERABLES Final Resul t Performing Organization Address City/[facility]/ZIP Co de Phone Number [facility] [address] [place] [address], [place] [phone] * Folate (02/24/2025 6:34 AM EDT) [facility] Folate 11.3 2.8 - 17.0 ng/ml LAB CHEMISTRY METHOD 02/24/2025 12:24 PM EDT [facility] Blood Venous blood specimen / Unknown Venipuncture / Unknown 02/24/2025 6:34 AM EDT 02/24/2025 10:44 AM EDT us Venus Mayberry MD LAB BLOOD ORDERABLES Final Resul t Performing Organization Address City/[facility]/ZIP Co de Phone Number [facility] [address] [place] [address], [place] [phone] * (ABNORMAL) Vitamin D 25 hydroxy (02/24/2025 6:34 AM EDT) Pathologist [facility] Vit D, 25-Hydroxy 29.9(L) 30.0 - 80.0 ng/mL LAB CHEMISTRY METHOD 02/24/2025 1:12 PM EDT [facility] Blood Venous blood specimen / Unknown Venipuncture / Unknown 02/24/2025 6:34 AM EDT 02/24/2025 10:44 AM EDT us Venus Mayberry MD LAB BLOOD ORDERABLES Final Resul t Performing Organization Address [facility] Co de Phone Number [facility] [address] [place] [address], * Thyroid stimulating hormone (02/24/2025 6:34 AM EDT) [facility] TSH 1.44 0.40 - 4.00 mcIU/mL LAB CHEMISTRY METHOD 02/24/2025 1:13 PM EDT [facility] Blood Venous blood specimen / Unknown Venipuncture / Unknown 02/24/2025 6:34 AM EDT 02/24/2025 10:44 AM EDT us Venus Mayberry MD LAB BLOOD ORDERABLES Final Resul t Performing Organization Address [facility] de Phone Number [facility] [address] [place] [address], [place] [phone] * Hemoglobin A1c (02/24/2025 6:34 AM EDT) [facility] Hemoglobin A1C 5.9 <6.5 % LAB CHEMISTRY METHOD 02/24/2025 9:29 PM EDT [facility] Mean Bld Glu Estim. 123 mg/dL LAB CHEMISTRY METHOD 02/24/2025 9:29 PM EDT [facility] Blood Venous blood specimen / Unknown Venipuncture / Unknown 02/24/2025 6:34 AM EDT 02/24/2025 10:44 AM EDT us Venus Mayberry MD LAB BLOOD ORDERABLES Final Resul t [facility] [address] [place] [address], [place] [phone] * (ABNORMAL) Comprehensive metabolic panel (02/24/2025 6:34 AM EDT) Sodium 142 133 - 145 mmol/L LAB CHEMISTRY METHOD 02/24/2025 12:24 PM EDT [facility] Potassium 4.1 3.5 - 5.5 mmol/L LAB CHEMISTRY METHOD 02/24/2025 12:[address] [facility] Chloride 108 96 - 110 mmol/L LAB CHEMISTRY METHOD 02/24/2025 12:[address] [facility] CO2 28 21 - 32 mmol/L LAB CHEMISTRY METHOD 02/24/2025 12:[address] [facility] Anion Gap 6 3 - 11 LAB CHEMISTRY METHOD 02/24/2025 12:[address] [facility] Glucose 91 70 - 100 mg/dL LAB CHEMISTRY METHOD 02/24/2025 12:[address] [facility] BUN 30(H) 5 - 25 mg/dL LAB CHEMISTRY METHOD 02/24/2025 12:[address] [facility] Creatinine 1.02 0.50 - 1.10 mg/dL LAB CHEMISTRY METHOD 02/24/2025 12:[address] [facility] eGFR 53(L) >=60 mL/min/1. 73m2 LAB CHEMISTRY METHOD 02/24/2025 12:[address] [facility] Comment:Calculation based on the Chronic Kidney Disease Epidemiology Collaboration (CKD-EPI) equation refit without adjustment for race. BUN/Creatinine Ratio 29.4 LAB CHEMISTRY METHOD 02/24/2025 12:[address] [facility] Calcium 10.5 8.5 - 10.5 mg/dL LAB CHEMISTRY METHOD 02/24/2025 12:24 PM EDT [facility] AST (SGOT) 31 10 - 42 unit/L LAB CHEMISTRY METHOD 02/24/2025 12:24 PM EDT [facility] ALT (SGPT) 36 10 - 60 unit/L LAB CHEMISTRY METHOD 02/24/2025 12:24 PM EDT [facility] Alkaline Phosphatase 82 42 - 121 unit/L LAB CHEMISTRY METHOD 02/24/2025 12:24 PM EDT [facility] Total Protein 6.8 6.0 - 8.0 g/dL LAB CHEMISTRY METHOD [facility] Albumin 3.1(L) 3.2 - 5.0 g/dL LAB CHEMISTRY METHOD 02/24/2025 12:24 PM EDT [facility] Total Bilirubin 0.4 0.0 - 1.4 mg/dL LAB CHEMISTRY METHOD 02/24/2025 12:24 PM EDT [facility] Blood Venous blood specimen / Unknown Venipuncture / Unknown 02/24/2025 6:34 AM EDT 02/24/2025 10:44 AM EDT us Venus Mayberry MD LAB BLOOD ORDERABLES Final Resul t [facility] [address] [place] [address], * (ABNORMAL) Complete blood count (02/24/2025 6:34 AM EDT) WBC 6.0 4.8 - 10.8 K/mcL LAB HEMETOLOGY METHOD 02/24/2025 1:12 PM EDT [facility] RBC 4.80 3.80 - 4.80 M/mcL LAB HEMETOLOGY METHOD 02/24/2025 1:[address] [facility] Hemoglobin 14.3 11.5 - 16.0 g/dL LAB HEMETOLOGY METHOD 02/24/2025 1:[address] [facility] Hematocrit 45.6 35.0 - 47.0 % LAB HEMETOLOGY METHOD 02/24/2025 1:[address] [facility] MCV 94.2 79.0 - 98.0 FL LAB HEMETOLOGY METHOD 02/24/2025 1:[address] [facility] MCH 29.5 27.0 - 32.0 pcg LAB HEMETOLOGY METHOD 02/24/2025 1:[address] [facility] MCHC 31.4(L) 32.0 - 37.0 g/dL LAB HEMETOLOGY METHOD 02/24/2025 1:[address] [facility] RDW 14.7 11.0 - 15.0 % LAB HEMETOLOGY METHOD 02/24/2025 1:[address] [facility] Platelets 154 130 - 400 K/mcL LAB HEMETOLOGY METHOD 02/24/2025 1:[address] [facility] MPV 11.7(H) 7.0 - 11.0 FL LAB HEMETOLOGY METHOD 02/24/2025 1:[address] [facility] NRBC 0.0 <1.0 % LAB HEMETOLOGY METHOD 02/24/2025 1:[address] [facility] NRBC Absolute 0.00 <0.10 K/mcL LAB HEMETOLOGY METHOD 02/24/2025 1:[address] [facility] Blood Venous blood specimen / Unknown Venipuncture / Unknown 02/24/2025 6:34 AM EDT 02/24/2025 10:44 AM EDT Venus Mayberry MD LAB BLOOD ORDERABLES Final Resul t [facility] [address] [place] [address], documented in this encounter Visit Diagnoses Diagnosis Essential (primary) hypertension Unspecified essential hypertension Type 2 diabetes mellitus without complications (CMS/HCC V24, CMS/HCC V28) documented in this encounter Care Teams Missile Facilities Repairer Relationship Specialty Start Date End Date Tony Arreola MD [address] [place] [address], [phone] PCP - General Family Medicine 12/14/24 documented as of this encounter
--- OUTSIDE RECORDS SUMMARY | 2025-09-25 05:53 | XMS_ITS | Encounter Summary ---
Author Organization [employer] Address [address] [place] [address] Care Team Providers Care In Home Sales Consultant Name Role Phone Tony Arreola MD Primary Care Provider [phone] Encounter Details Date Type Department Care Team (Late st Contact Info) Description 12/28/2024 Lab Requisition [facility] - Main Lab 299 [facility] [place] [address] Tony Arreola MD [address] [facility] [address] [place], [address] Weakness; Unspecified dementia, unspecified severity, without [...] V28) documented in this encounter Care Teams In Home Sales Consultant Relationship Specialty Start Date End Date Tony Arreola MD [address] [facility] [address] [place], [phone] PCP - General Family Medicine 12/14/24 documented as of this encounter
--- OUTSIDE RECORDS SUMMARY | 2025-09-25 05:53 | XMS_ITS | Clinical Summary ---
Author Organization [facility] Facility Address [address] [address] Care Team Providers Care Binder And Box Builder Name Role Phone Unavailable Primary Care Provider [...] -Pt has an upcoming appt with her wedding decorator History of cerebrovascular accident 01/07/2023 Overview (01/23/2023): Last Assessment & Plan: -around 2009 previous medical record -TIA in 2015 -Continue working on secondary prevention / risk factor management History of non-ST segment elevation myocardial i nfarction 01/07/2023 Overview (01/23/2023): Last Assessment & Plan: -Oct 2015 -Previously following with [facility] Cardiology, upcoming appt -Continue risk factor mangement [...] Risk: CKD, age, NSTEMI, Hx CVA/TIA, DM2 -Skull Splitter: Previously [facility], pt has a new appt on 01/23/23 [...] to 50 Years) Discontinued 02/23/2015, 10/04/2001 Insurance [facility] ([id number]) [place] [phone] [facility] ([id number])
--- OUTSIDE RECORDS SUMMARY | 2025-09-25 05:53 | XMS_ITS | Clinical Summary ---
Author Organization 299 [facility] Address [address] [place] [address] Phone Care Team Providers Care Clinical Laboratory Director Name Role Phone Tony Arreola MD Primary Care Provider Social History Tobacco Use Types Packs/Day Years [...] Resul t [facility] [address] [place] [address], * (ABNORMAL) Comprehensive metabolic panel (02/24/2025 6:34 [...] 02/24/2025 12:24 PM [facility] AST (SGOT) 31 [...] Resul t [facility] [address] [place] [address], from Last 3 Months or Most Recently Relevant to Health Maintenance Insurance [facility] MEDICARE Member Subscriber Plan / Payer (Ef fective 2019-Present) Name:Sienna Mendez Relation to Subscriber:Self Name:Sienna Mendez Payer ID:[id number] Group ID:[id number] Type:Not on file Address: [address] [place] [id number] Care Teams Clinical Laboratory Director Relationship Specialty Start Date End Date Tony Arreola MD [address] [place] [address] [address] [place], [phone] PCP - General Family Medicine 12/14/24
--- OUTSIDE RECORDS SUMMARY | 2025-09-25 05:53 | XMS_ITS | Encounter Summary ---
Author Organization [facility] Address [address] [facility] 200 [place] [address] Phone Care Team Providers Care Public Message Service Supervisor Name Role Phone Unavailable Primary Care Provider Unavailabl e Reason for Visit * Reason Comments Med Refill Encounter Details Date Type Department Care Team ([facility] st Contact Info) Description 12/10/2021 Refill [facility] [address] [facility] [address] [place] [phone] Chino Martinez MD [address] [facility] [address] [place] [phone] Social History Tobacco Use Types Packs/Day Years [...]
--- OUTSIDE RECORDS SUMMARY | 2025-09-25 05:53 | XMS_ITS | Encounter Summary ---
Author Organization [employer] Address [address] [employer] [address] [place] [address] Care Team Providers Care Blindmaker Name Role Phone Myah Singh MD Primary Care Provider [phone] Encounter Details Date Type Department Care Team ([facility] st Contact Info) Description 03/26/2025 Telephone [facility] [address] [place], [place] [phone] Myah Singh MD [address] [place], [place] [phone] Social History Tobacco Use Types Packs/Day Years [...] documented as of this encounter Care Teams Blindmaker Relationship Specialty Start Date End Date Myah Singh MD [address] [place] [address] PCP - General Family Medicine 11/08/12 [facility] 12/31/24 07/29/25 documented as of this encounter
--- OUTSIDE RECORDS SUMMARY | 2025-09-25 05:53 | XMS_ITS | Encounter Summary ---
Author Organization [employer] Address [address] [place] [address] 7[address] [place] [address] Care Team Providers Care Spray Painter Helper Name Role Phone Myah Singh MD Primary Care Provider [phone] Reason for Visit * Reason Onset Date Comments Durable Medical Equipment 01/30/2023 Encounter Details Date Type Department Care Team (Late st Contact Info) Description 01/30/[address] [facility] [address] [place], [place] [phone] Myah Singh MD [address] [place], [place] [phone] Durable Medical Equipment Social History Tobacco Use [...] call me or CHACE Beltran also patient [employer] can call them as they are the vendor for more information [phone] * Telephone Encounter - Uriahchadshy Rodriguezmahad Marion - 01/30/2023 10:00 AM EST Tc from pt HARNESS RACING HANDICAPPER Jonathan stating that for the last two months pt Large Pull ups and Wipes have not been deliver Please contact jonathan at [phone] documented in this encounter Plan of Treatment Not on file documented as of this encounter Visit Diagnoses Not on filedocumented in this encounter Care Teams Spray Painter Helper Relationship Specialty Start Date End Date Myah Singh MD [address] [place] [address] PCP - General Family Medicine 11/08/12 [facility] 12/31/24 07/29/25 documented as of this encounter
--- OUTSIDE RECORDS SUMMARY | 2025-09-25 05:53 | XMS_ITS | Data Portability ---
Author Organization [facility] Address [address] [place] [phone] Care Team Providers Care Obstetrics Nurse Practitioner Name Role Phone [facility] Referring [...] recorded. Lab cmp, whole blood + waqar [facility], [address] [place] [address], [place], [phone] 10:38:51 culture, urine [facility] (Centralized Electronic Ordering - All Locations), Patient Can Go To The Location Of Their Choice, [address] 05:01:48 Referral None recorded. Procedures None recorded. [...] 4625 Kenia Hernandez MD Main - instED [address] [place] [phone] 09/10/2022 16:51:17 09/12/2022 13:08:31 Right upper quadrant pain [id number] R10.11 Health Concerns Section Related Observation LastModified by Organization Detai ls LastModified Time None Recorded Concern Status LastModified by Organization Details LastModified Time None Recorded Advance Directives Directive None Recorded Payers Insurance Date Sequence Insurance Name Policy Number Policy Gonzalez Covered Member ID Gonzalez Member ID Guarantor Name 01/21/2024 1 [facility] - DOS PRIOR TO 2023 - DUAL ELIGIBLE (MEDICARE REPLACEMENT/ADV ANTAGE - HMO) Sienna Mendez [id number] Sienna Mendez 01/21/2024 1 [facility] - DOS ON OR AFTER 2023 - DUAL ELIGIBLE - HALF-WAY OPTIONS AND ONE CARE (MEDICARE REPLACEMENT/ADV ANTAGE - HMO) Sienna Mendez [id number] Sienna Mendez Notes Date Note Type Note [...] and assists coordinate all visitsher number is [phone], member uses this number as her Primary contact. Member is an 87 yo female with old [place], osteoarthritis, thrombocytopenia and HTN hrt & CKD and Modereate Dementia. Pleasantly confused. Supportive family. This RNCP recommends Female Providers if possible. Can the results be faxed to [facility] at [phone] Singh if possible? ...................... ...................... ...................... ...................... ...................... ...................... ......... CRC Nursing Assessment: Comments: CRC RN did not require any additional information to process this visit. Spoke with daughter who agrees to visit for 09/10> would like to be seen early in the day if possible [facility] HPI:chronic kidney disease, dementia, HTN, CAD with acute on chronic progressive behavior changes. eating normally, voiding normally, drinking normally, no vomiting, no diarrhea, no fevers, cough. No one else has been sick at home. No changes the family can identify in terms of schedule. No reports of worse unsteadiness on her feet or falls.Granddaughter reports that PMH includes cirrhosis Kenia Tilhou, MD [address] [facility],[address], [place], [phone], [employer] 09/10/2022 17:40:46 OBGyn Episode No OBEpisode recorded.
--- OUTSIDE RECORDS SUMMARY | 2025-09-25 05:53 | XMS_ITS | Encounter Summary ---
Author Organization [employer] Address [address] [place] [address] Care Team Providers Care Cash Surrender Calculator Name Role Phone Tony Arreola MD Primary Care Provider [phone] Encounter Details Date Type Department Care Team (Late st Contact Info) Description 12/06/2024 Lab Requisition [facility] - Main Lab [address] [place] [address] Tony Arreola MD [address] [facility] 204 [place], [phone] Weakness; Unspecified dementia, unspecified severity, without [...] [facility] Comment:Calculation based on the [...] EST 12/09/2024 11:17 AM EST us Tony Arreloa MD LAB BLOOD ORDERABLES Final Resul t [facility] [address] [place] [address], [place] [phone] * (ABNORMAL) Complete blood count (12/09/2024 7:13 AM EST) [facility] Signature WBC 6.9 4.8 - 10.8 [...] LAB HEMETOLOGY METHOD 12/09/2024 12:[address] [facility] Blood Venous blood specimen / Unknown Venipuncture / Unknown 12/09/2024 7:13 AM EST 12/09/2024 11:17 AM EST us Tony Arreola MD LAB BLOOD ORDERABLES Final Resul t [facility] [address] [place] [address], documented in this encounter Visit Diagnoses Diagnosis Weakness Other malaise and fatigue Unspecified dementia, unspecified severity, without behavioral disturbance, psychotic disturbance, mood disturbance, and anxiety (CMS/HCC V24, CMS/HCC V28) documented in this encounter Care Teams Cash Surrender Calculator Relationship Specialty Start Date End Date Tony Arreola MD [address] [place] [address], [phone] PCP - General Family Medicine 12/14/24 documented as of this encounter
--- OUTSIDE RECORDS SUMMARY | 2025-09-25 05:53 | XMS_ITS | Clinical Summary ---
Author Organization [employer] Address [address] [place] [address] [address] [place] [address] Care Team Providers Care Sole Molder Name Role Phone Myah Singh MD Primary Care Provider [phone] Allergies Active Allergy Reactions Criticality Noted Date [...] EDT): -Oct 2015 -Previously following with [facility] Cardiology, upcoming appt -Continue risk factor mangement Assessment & Plan (01/07/2023 4:34 PM EST): -Oct 2015 -Previously following with [facility] Cardiology, upcoming appt [...] cm2. Mild aortic valve regurgitation. -Seen by safety security officer, Dr. Garcia in [facility], on 07/27/23, since she [...] cm2. Mild aortic valve regurgitation. -Seen by safety security officer, Dr. Garcia in [facility], on 07/27/23, since she [...] cm2. Mild aortic valve regurgitation. -Seen by safety security officer, Dr. Garcia in [facility], on 07/27/23, since she [...] -Pt has an upcoming appt with her safety security officer Assessment & Plan (01/07/2023 5:17 PM EST): - Most recent TTE 10/14/22: There is mild calcification of the aortic valve. There is moderate aortic valve stenosis. The peak aortic gradient is 33 mmHg.The mean gradient is 16 mmHg. There is mild aortic valve regurgitation. -Pt has loud murmur consistent with aortic stenosis -NSTEMI in 2015 -Pt has an upcoming appt with her safety security officer Anemia 01/07/2023 Assessment & Plan (01/07/2023 5:24 PM EST): - anemia of chronic disease (CKD, cirrhosis) - continue ferrous sulfate - check lab Diabetes mellitus, type 2 12/28/2022 Overview (04/07/2025): Frequent utis from jardiance Assessment & Plan (05/06/2025 11:29 AM EDT): Blood sugars are in range (90-110)without jardance, pt grandaughter and POOLROOM/POOLHALL MANAGER deny any swelling, sob, orthopnea edema or [...] (01/17/2025 5:56 AM EST): -Following with [facility] Sleep medicine clinic, last [...] monitor periodically Osteopenia 01/07/2013 Anxiety 12/10/2012 Dementia ([facility]/HCC) 12/10/2012 Assessment & Plan (01/17/2025 5:58 AM EST): -multifactorial: Alzeheimer's; Hx CVA and TIA; hx COVID; depression / anxiety -following with Dr. Estevez, neurologist, last seen in Dec 2021, and psychiatrist Dr. Diaz -continue current medications prescribed by both neurologist and psychiatrist -it seems like patient was seeing psychiatrist [facility] -work on risk factor management -reviewed safety [...] Risk: CKD, age, NSTEMI, Hx CVA/TIA, DM2 -Dining Room Busser: Previously [facility] pt has a new [...] Risk: CKD, age, NSTEMI, Hx CVA/TIA, DM2 -Dining Room Busser: Previously [facility] pt has a new [...] Risk: CKD, age, NSTEMI, Hx CVA/TIA, DM2 -Dining Room Busser: [facility] [place] [facility] [place] [place] 01/23/23 (Grade [...] Risk: CKD, age, NSTEMI, Hx CVA/TIA, DM2 -Dining Room Busser: Previously [facility] pt has a new [...] Risk: CKD, age, NSTEMI, Hx CVA/TIA, DM2 -Dining Room Busser: Previously [facility], pt has a [...] Assessment & Plan (01/17/2025 6:08 AM EST): -Stamp Presser: Dr. Martinez -Avoid nephrotoxic drugs and use renal dosing. -Recheck renal function today -On Jardiance, at low-dose, 10mg daily. Caution with UTI Assessment & Plan (02/04/2024 1:13 PM EDT): -Stamp Presser: Dr. Martinez -Baseline: 09/26/22 BUN 29; SCr 1.2, eGFR 43, AST 12, ALT 19, AP 91 -Avoid nephrotoxic drugs and use renal dosing. -Recheck renal function today -On Jardiance, at low-dose, 10mg daily. Assessment & Plan (09/10/2023 4:32 PM EDT): -Stamp Presser: Dr. Martinez, last seen in 2016 or 2017. Per caregiver, pt was discharged due to stability -Baseline: 09/26/22 BUN 29; SCr 1.2, eGFR 43, AST 12, ALT 19, AP 91 -Avoid nephrotoxic drugs and use renal dosing. -Recheck renal function today -On Jardiance, at low-dose, 10mg daily. Assessment & Plan (05/08/2023 11:04 AM EDT): -Stamp Presser: Dr. Martinez, last seen in 2016 or 2017. Per caregiver, pt was discharged due to stability -Baseline: 09/26/22 BUN 29; SCr 1.2, eGFR 43, AST 12, ALT 19, AP 91 -Avoid nephrotoxic drugs and use renal dosing. -Recheck renal function today -On Jardiance, at low-dose, 10mg daily. Assessment & Plan (01/07/2023 4:54 PM EST): -Stamp Presser: Dr. Martinez, last seen in 2017 or [...] Type Department Care Team Description 08/09/2025 Refill [facility] MEDICINE [address] [place] [address] Myah Singh MD 08/07/2025 Orders Only GENERIC EXTERNAL DATA DEPARTMENT Provider, Generic External Data 08/04/2025 Refill [facility] MEDICINE [address] [place] [address] Myah Singh MD Type 2 diabetes mellitus with stage 3 chronic kidney disease, without long-term current use of insulin, unspecified whether stage 3a or 3b CKD ([facility]) 07/21/2025 Refill [facility] MEDICINE [address], [place] [phone] Liliana Sears MD 07/21/2025 Refill [facility] MEDICINE [address], [place] [phone] Myah Singh MD Allergic rhinitis, unspecified seasonality, unspecified trigger 07/10/2025 Telephone [facility] MEDICINE [address], [place] [phone] Myah Singh MD Durable Medical Equipment (DME: [...] Whole Blood 90 60 - 115 mg/dL [facility] Comment:METER #: [id number] 08/07/2025 12:2 0 PM EDT 08/07/2025 4:35 PM EDT us Generic External Data Provider LAB BLOOD ORDERAB LES Final Result [facility] [address] [place] [phone] * SARS-CoV-2 RNA, Influenza A/B, and RSV RNA, Ql NAAT (08/07/2025 8:48 AM EDT) Pathologist [facility] Influenza A PCR NEGATIVE Negative [facility] Influenza B PCR NEGATIVE Negative [facility] Resp Syncy Virus RNA Qual PCR NEGATIVE Negative [facility] SARS COV2 PCR NEGATIVE Negative [facility] Comment:All test results mus t [...] use by authorized laboratories.Testing performed on the [employer] GeneXpert utilizingreal-time RT-PCR.All SARS CoV2 and positive influenza A/B results arereported to [facility]. 08/07/2025 8:48 AM EDT 08/07/2025 8:51 AM EDT Generic External Data Provider LAB MICROBIOLOGY - GENERAL ORDERABLES Final Result [facility] [address] [place] [address] [phone] * Lipid Panel with Reflex to Direct LDL (01/22/2024 12:20 PM EST) Triglycerides 130 <150 mg/dL [facility] Comment:Desirable Triglyceri de: less than 150 mg/dLBorderline High Triglyceride 150-199 mg/dLHigh Triglyceride: 200-499 mg/dLVery High Triglyceride: greater than or equal to 5OO mg/dL Cholesterol 109 <200 mg/dL [facility] Comment:Desirable Cholestero l: less than 200 mg/dLBorderline High Cholesterol: 200-239 mg/dLHigh Cholesterol: greater than 239 mg/dL LDL Cholesterol Calculated 41 <100 mg/dL [facility] Comment:Desirable LDL: less than 100 mg/dLNear Optimal/Above Optimal LDL: 110- 129 mg/dLBorderline High LDL: 130-159 mg/dLHigh LDL: 160-189 mg/dLVery High LDL: greater than or equal to 190 mg/dL HDL Cholesterol 42 >40 mg/dL [facility] Comment:Desirable HDL: great er than 40 mg/dL Note: This HDL assay may give artificially low results in patients with liver disease. Blood 01/22/2024 12:2 0 PM EST 01/22/2024 1:11 PM EST Myah Singh MD LAB BLOOD ORDERABLES Final Resul t [facility] [address] [place] [phone] * (ABNORMAL) POCT glycosylated hemoglobin (Hgb A1c) (09/11/2023 10:29 AM EDT) Hemoglobin A1C 6.2(A) 4.0 - 6.0 % QC Media Lot # [id number] Lot# Expiration Date Blood Capillary blood specimen / Unknown 09/11/2023 10:29 AM EDT Myah Singh MD POINT OF CARE TEST ENTER/EDIT OR DERABLES Final Result from Last 3 Months or Most Recently Relevant to Health Maintenance Insurance [facility] [employer] OPTIONS (O D-SNP) [employer] [id number] Care Teams Sole Molder Relationship Specialty Start Date End Date Myah Singh MD [address] [place] [address] [place] [address] PCP - General Family Medicine 11/08/12
--- OUTSIDE RECORDS SUMMARY | 2025-09-25 05:53 | XMS_ITS | Encounter Summary ---
Author Organization [employer] Address [address] [place] [address] Care Team Providers Care Sewer Digger Name Role Phone Tony Arreola MD Primary Care Provider [phone] Encounter Details Date Type Department Care Team (Late st Contact Info) Description 11/29/2024 Lab Requisition [facility] - Main Lab [address] [place] [address] Tony Arreola MD [address] [facility] [address], [phone] Weakness; Unspecified dementia, unspecified severity, without [...] mmol/L LAB CHEMISTRY METHOD 12/02/2024 11:14 AM [facility] Potassium 4.0 3.5 - 5.5 mmol/L LAB CHEMISTRY METHOD 12/02/2024 11:14 AM [facility] Chloride 112(H) 96 - 110 mmol/L LAB CHEMISTRY METHOD 12/02/2024 11:14 AM [facility] CO2 27 21 - 32 mmol/L LAB CHEMISTRY METHOD 12/02/2024 11:14 AM [facility] Anion Gap 5 3 - 11 LAB CHEMISTRY METHOD 12/02/2024 11:14 AM [facility] Glucose 80 70 - 100 mg/dL LAB CHEMISTRY METHOD 12/02/2024 11:14 AM [facility] BUN 28(H) 5 - 25 mg/dL LAB CHEMISTRY METHOD 12/02/2024 11:14 AM [facility] Creatinine 1.19(H) 0.50 - 1.10 mg/dL LAB CHEMISTRY METHOD 12/02/2024 11:14 AM [facility] eGFR 44(L) >=60 mL/min/1. 73m2 LAB CHEMISTRY METHOD 12/02/2024 11:14 AM [facility] Comment:Calculation based on the Chronic Kidney Disease Epidemiology Collaboration (CKD-EPI) equation refit without adjustment for race. BUN/Creatinine Ratio 23.5 LAB CHEMISTRY METHOD 12/02/2024 11:14 AM [facility] Calcium 9.3 8.5 - 10.5 mg/dL LAB CHEMISTRY METHOD 12/02/2024 11:14 AM [facility] Blood Venous blood specimen / Unknown Venipuncture / Unknown 12/02/2024 7:21 AM EST 12/02/2024 10:33 AM EST us Tony Arreola MD LAB BLOOD ORDERABLES Final Resul t [facility] [address] [place] [address], * (ABNORMAL) Complete blood count (12/02/2024 7:21 AM EST) [facility] WBC 6.8 4.8 - 10.8 K/mcL LAB HEMETOLOGY METHOD 12/02/2024 10:57 AM [facility] RBC 4.40 3.80 - 4.80 M/mcL LAB HEMETOLOGY METHOD 12/02/2024 10:57 AM [facility] Hemoglobin 12.9 11.5 - 16.0 g/dL LAB HEMETOLOGY METHOD 12/02/2024 10:57 AM [facility] Hematocrit 41.3 35.0 - 47.0 % LAB HEMETOLOGY METHOD 12/02/2024 10:57 AM [facility] MCV 93.9 79.0 - 98.0 FL LAB HEMETOLOGY METHOD 12/02/2024 10:57 AM [facility] MCH 29.3 27.0 - 32.0 pcg LAB HEMETOLOGY METHOD 12/02/2024 10:57 AM [facility] MCHC 31.2(L) 32.0 - 37.0 g/dL LAB HEMETOLOGY METHOD 12/02/2024 10:57 AM [facility] RDW 14.5 11.0 - 15.0 % LAB HEMETOLOGY METHOD 12/02/2024 10:57 AM [facility] Platelets 155 130 - 400 K/mcL LAB HEMETOLOGY METHOD 12/02/2024 10:57 AM [facility] MPV 11.6(H) 7.0 - 11.0 FL LAB HEMETOLOGY METHOD 12/02/2024 10:57 AM [facility] NRBC 0.0 <1.0 % LAB HEMETOLOGY METHOD 12/02/2024 10:57 AM [facility] NRBC Absolute 0.00 <0.10 K/mcL LAB HEMETOLOGY METHOD 12/02/2024 10:57 AM EST [facility] Blood Venous blood specimen / Unknown Venipuncture / Unknown 12/02/2024 7:21 AM EST 12/02/2024 10:33 AM EST us Tony Arreola MD LAB BLOOD ORDERABLES Final Resul t [facility] [address] [place] [address], documented in this encounter Visit Diagnoses Diagnosis Weakness Other malaise and fatigue Unspecified dementia, unspecified severity, without behavioral disturbance, psychotic disturbance, mood disturbance, and anxiety (CMS/HCC V24, CMS/HCC V28) documented in this encounter Care Teams Sewer Digger Relationship Specialty Start Date End Date Tony Arreola MD [address] [place] [address] [address], [phone] PCP - General Family Medicine 12/14/24 documented as of this encounter
--- OUTSIDE RECORDS SUMMARY | 2025-09-25 05:53 | XMS_ITS | Encounter Summary ---
Author Organization [employer] Address [address] [place] [address] Care Team Providers Care Crib Clerk Name Role Phone Tony Arreola MD Primary Care Provider [phone] Encounter Details Date Type Department Care Team (Late st Contact Info) Description 12/21/2024 Lab Requisition [facility] - Main Lab [address] [place] [address] Tony Arreola MD [address] [place] [address] [address] [place], [phone] Weakness; Unspecified dementia, unspecified severity, without [...] Resul t [facility] [address] [place] [address], * (ABNORMAL) Complete blood count (12/23/2024 6:50 AM EST) [facility] WBC 6.0 4.8 - 10.8 K/mcL [...] LAB HEMETOLOGY METHOD 12/23/2024 12:49 PM EST [facility] Blood Venous blood specimen / Unknown Venipuncture / Unknown 12/23/2024 6:50 AM EST 12/23/2024 10:55 AM EST Tony Arreola MD LAB BLOOD ORDERABLES Final Resul t [facility] [address] [place] [address], documented in this encounter Visit Diagnoses Diagnosis Weakness Other malaise and fatigue Unspecified dementia, unspecified severity, without behavioral disturbance, psychotic disturbance, mood disturbance, and anxiety (CMS/HCC V24, CMS/HCC V28) documented in this encounter Care Teams Crib Clerk Relationship Specialty Start Date End Date Tony Arreola MD [address] [place] [address], [phone] PCP - General Family Medicine 12/14/24 documented as of this encounter
--- OUTSIDE RECORDS SUMMARY | 2025-09-25 05:53 | XMS_ITS | Data Portability ---
Author Organization [facility], Main Office Address [address], [address] [place] [address] Care Team Providers Care Sea Kayaking Guide Name Role Phone [facility]) OTHER Assessment No assessment recorded. Plan [...] and Address Organization Details Recorded Time Asthma 539369113 Active 2017 ANGELITA VANG [address] [facility], [address], [place], [address] , [facility] [employer] [facility] 8 15:12:32 Dementia 73541751 Active 2017 ANGELITA VANG [address] [facility], [address], [place], [address] , [facility] [employer] 8 15:12:53 Depressiv e disorder 26624497 Active 2017 ANGELITA VANG [address] [facility], [address], [place], [address] , [facility] [employer] 8 15:13:06 Coronary arteriosc lerosis 76615074 Active 2017 history of NSTEMI ANGELITA VANG [address] [facility], [address], [place], [address] , [facility] [employer] 8 15:13:24 Hyperlipi demia 38417149 Active 2017 ANGELITA VANG [address] [facility], [address], [place], [address] , [facility] 8 15:14:00 Essential hypertens ion 18784555 Active 2017 ANGELITA VANG [address] [facility], [address], [place], [address] , [facility] 8 15:14:57 History of cerebrova scular accident 921995970 Active 2017 right sided weakness ANGELITA VANG [address] [facility], [address], [place], [address] , [facility] 8 15:15:19 Influenza 0279976 Active 2017 ANGELITA VANG [address] [facility], [address], [place], [address] , [facility] 8 16:02:49 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 Active 2017 ANGELITA VANG [address] [facility], [address], [place], [address] , [facility] 8 16:05:54 Osteoporo sis 57448827 Active 2017 ANGELITA VANG [address] [facility], [address], [place], [address] , [facility] 8 16:06:06 Gastroeso phageal reflux disease 453090717 Active 2017 ISABELLE ALYSSA MARKET RELATIONSHIP MANAGER [address] [place] [address], [address], [place], [address] , [facility] 8 16:08:23 Asthenia 03290403 Active 2017 Thais Rocha MD [address] [place] [address], [facility] [address], [place], [address] , [facility] 8 13:54:57 Acute kidney injury 97340646 Active 2017 Thais Rocha MD [address] [place] [address], [address], [place], [address] , [facility] 8 14:30:45 Type 2 diabetes mellitus 32085848 Active 2023 Not Available [facility] 5 10:33:31 Muscle weakness 42286206 Active 2023 Not Available [facility] 5 10:33:31 Difficult y walking 458235060 Active 2023 Not Available [facility] 5 10:33:32 Dyspnea 848023989 Active 2023 Not Available [facility] 5 10:33:32 Anxiety disorder 178074230 Active 2023 Not Available [facility] 5 10:33:33 Insomnia 431584647 Active 2023 Not Available [facility] 5 10:33:34 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 18386358359 9100 Active 2023 Not Available [facility] 5 10:33:34 Cerebrova scular disease 11767363 Active 2023 Not Available [facility] 5 10:33:35 Fall Active 2023 Not Available [facility] 5 10:33:36 Allergic contact dermatiti s 932802523 Active 2023 Not Available [facility] 5 10:33:37 Diaphragm atic hernia 58597056 Active 2023 Not Available [facility] 5 10:33:38 Constipat ion 04625952 Active 2023 Not Available [facility] 5 10:33:38 Coronavir us infection 368762777 Active 2023 Not Available [facility] 5 10:33:39 Dementia associate d with another disease 441008670 Active 2023 Not Available [facility] 5 10:33:39 Chronic kidney disease stage 3 701739051 Active 2023 Not Available [facility] 5 10:33:39 Chronic kidney disease stage 3A 275715258 Active 2024 Tony Arreola MD [address] [facility], [address], [place], [address] , [facility] [employer] [facility] 5 08:58:43 Cirrhosis of liver 22279057 Active 2024 Tony Arreola MD [address] [facility] [facility], [address], [place], [address] , [facility] [employer] [facility] 5 08:58:50 Aortic valve stenosis 88322163 Active 2024 Tony Arreola MD [address] [facility] [facility], [address], [place], [address] , [facility] [employer] 5 08:59:06 Diabetes mellitus 47798911 Active 2024 Tony Arreola MD [address] [facility] [facility], [address], [place], [address] , [facility] [employer] 5 08:59:17 Delusiona l disorder 46837173 Active 2024 Not Available [facility] 5 12:34:52 Problem Notes None recorded. Medical Equipment None Reported. Allergies Allergen ID Allergen Name Allergen Category Reaction Reaction Severity Criticality Documentation Date Start Date Code Code System Note Provider Name and Address Organization Details Recorded Time 32066 Reglan medicatio n Not available Not available Not available 12/19/20242023 9230 RxNorm Not Available [facility] 5 10:33:44 9455 tetracain e medicatio n Not available Not available Not available 01/03/20182023 05564 RxNorm Not Available [facility] 5 10:33:44 9456 benzocain e medicatio n Not available Not available Not available 01/03/20182023 1399 RxNorm Not Available [facility] 5 10:33:44 9457 butamben medicatio n Not available Not available Not available 01/03/20182023 38722 RxNorm Not Available [facility] 5 10:33:44 9458 morphine medicatio n Not available Not available Not available 01/03/20182023 7052 RxNorm Not Available [facility] 5 10:33:44 9459 metoclopr amide Not available Not available Not available Not available 01/03/2018 6915 RxNorm ISABELLE SHAH, MARKET RELATIONSHIP MANAGER [address] [facility], [address], [place], [address], [facility] [employer] 8 15:01:21 9460 ceftazidi me anhydrous medicatio n Not available Not available Not available 01/03/20182023 20736 84 RxNorm Not Available [facility] [...] Available Not Available Not Avai lable Acid Area Development Consultant (omeprazole ) 20 mg capsule,del ayed release [...] 12/02/2024 122/57 mm[Hg] Tony Arreola MD [address] [facility], [address], [place], [address], [facility] 12/02/2024 08:50:04 Date Recorded Heart rate Respiratory rate Body temperature Oxygen saturation Oxygen saturation in Arterial blood by Pulse oximetry Systolic And Diastolic Provider Name and Address Organization Details Last Updated DateTime 5 67 /min 14 /min 97.9 [degF] 96 % 96 % 102/49 mm[Hg] HAKEEM JOHNSON NP [address] [facility], [address], [place], [address], [facility] 5 14:47:00 Date Recorded Body height Body mass index (BMI) Body weight Heart rate Respiratory rate Body temperature Oxygen saturation Oxygen saturation in Arterial blood by Pulse oximetry Systolic And Diastolic Provider Name and Address Organization Details Last Updated DateTime 5 152.4 cm 32.9 kg/m2 76581.9 6 g 72 /min 20 /min 97.3 [degF] 95 % 95 % 114/63 mm[Hg] Thais Rocha MD [address] [facility], [address], [place], [address], [facility] 5 18:57:01 Social History Question Answer Notes LastModified by Organizat ion Details LastModified Time Tobacco Smoking Status Former Smoker Thais Rocha MD [address] [facility], [address], [place], [address], [facility] 01/04/2018 14:12:51 Do You Have An [...] Do You Have A Medical Power Of Station Master? Yes Information not available 01/04/2018 What Was [...] ICD10 Code Diagnosis IMO Codes Diagnosis Note [id number] ANGELITA VANG [address] [place] [address] 01/03/2018 15:00:09 01/12/2018 16:14:28 Influenza 9671124 J10.89 Flu A + in hospitalTa miflu was completedm onitor Essential hypertension 86902656 I10 lisinopril 20 mg qdlasix 20 mg qdnorvasc 5 mg qdmonitor b/p and labs Hyperlipidemia 72401460 E78.2 atorvastat in 20 mg qdmonitor labs Depressive disorder 3548 9007 F32.0 prozac 40 mg qdremeron 15 mg qdtrazodon e 50 mg qdhaldol 1 mg qdneg consult prnmonitor mood Dementia 96328031 F02.80 namenda 10 mg bidaricept 10 mg qdmonitor mood Coronary arteriosclerosis 28030382 I25.10 ASA 81 mg qdmonitor Osteoporosis 73785604 M8 1.0 calcium carbonate/ vit. D3 600/vit d bidmonitor labs Bladder mu scle dysfunction - overactive 290837245 N32.81 myrbetriq 50 mg qdincontin ent of urinemonit or History of cerebrovascular accident 106382108 Z86.73 right sided weaknessmo nitor Asthma 821139617 J45.20 zyrtec 10 mg qdmonitor resp status Gastroesop hageal reflux disease 460341871 K21.9 omeprazole 40 mg qdmonitor Asthenia 23861482 R53.1 PT/OT eval and [facility]ambul [facility] [address] Thais Rocha MD [facility] [address] [place] [address] rd [place] [address] 01/04/2018 13:51:14 01/12/2018 16:19:02 Asthenia 31422758 R53.1 Deconditio david after acute illness, needs PT/OT for strengthen ing and gait training. At baseline ambulates with walker. Anticipate less than 30 day stay and return home. Influenza 9945985 J10.89 Positive for influenza A in hospital, completed course of Tamiflu.Mo nitor Essential hypertension 92164103 I10 Stable on lisinopril 20 mg qd, lasix 20 mg qd and norvasc 5 mg qd.monitor BP and labs Hyperlipidemia 04998150 E78.2 Continue atorvastat in 20 mg qdmonitor chol with PCP. Depressive disorder 3548 9007 F32.0 Continue prozac 40 mg qd, remeron 15 mg qd, trazodone 50 mg qd and haldol 1 mg qd. Monitor mood and consider NEG consult Dementia 44534932 F02.80 Continue namenda 10 mg bid and aricept 10 mg qd. Expect continued decline. Provide supportive care. Coronary arteriosclerosis 81227636 I25.10 Continue ASA 81 mg qd and statin. F/U with Cardio prn Osteoporosis 38211280 M8 1.0 Continue calcium carbonate/ vit. D3 600/vit d bid Bladder mu scle dysfunction - overactive 138366250 N32.81 Continue myrbetriq 50 mg qdmonitor History of cerebrovascular accident 141875619 Z86.73 Residual right sided weakness. PT/OT as above. Follow for recurrence . Asthma 516297508 J45.20 Continue zyrtec 10 mg qdmonitor resp status Gastroesop hageal reflux disease 895272363 K21.9 No current sxs, continue omeprazole 40 mg qdmonitor Acute kidney injury 1466 9001 N17.8 Improved in hospital, not 100% nl. Will recheck today. May have baseline mild CRF. 51504 ANGELITA VANG MICHELLE [address] [place] [address] [place] [address] 01/08/2018 13:49:05 01/12/2018 16:24:28 Cough 85567101 R05 bilateral lungs with wheezes and rhonchi throughout cough noted but non productive had flu in hospitalPP D was planted and is 30 mmchest x-ray orderedduo nebs ordered qid x3 days and prnmonitor for worsening symptoms 601[address] ANGELITA VANG MICAELA MICHELLE [address] [place] [address] 01/10/2018 13:57:28 01/12/2018 16:27:43 Cough 98256247 R05 continues with cough but now has yellow sputumstat es she feels betterbila teral lungs are clear nowcontinu e to monitor [id number] Tony Arreola MD [address] [address] 01/15/2018 10:39:11 01/15/2018 13:20:57 Acute low back pain 591941527 M54.5 x ray L-S spineproba ble mild left sacroillii tisPT OT eval and treattylen ol for paincontin ue to monitorcon isder SI brace 11985 ANGELITA VANG [address] [address] 01/24/2018 13:45:00 01/25/2018 11:35:41 Dementia 60489496 F02.80 namenda 10 mg bidaricept 10 mg qdfollow up with PCP Hyperlipidemia 33470782 E78.2 atorvastat in 20 mg qdfollow up with PCP Essential hypertension 81623826 I10 lisinopril 20 mg qdlasix 20 mg qdnorvasc 5 mg qdfollow up with PCP Gastroesop hageal reflux disease 247914615 K21.9 omeprazole 40 mg qdfollow up with PCP Osteoporosis 52766531 M8 1.0 calcium carbonate/ vit. D3 600/vit d bidtylenol prn pain follow up with PCP Depressive disorder 3548 9007 F32.0 prozac 40 mg qdremeron 15 mg qdtrazodon e 50 mg qdhaldol 1 mg qdfollow up with PCP Asthma 592941998 J45.20 zyrtec 10 mg qdfollow up with PCP Coronary arteriosclerosis 20933901 I25.10 ASA 81 mg qdfollow up with PCP Bladder mu scle dysfunction - overactive 745683609 N32.81 myrbetriq 50 mg qdfollow up with PCP History of cerebrovascular accident 399417663 Z86.73 right sided weaknessfo llow up with PCP [id number] Tony Arreola MD [facility] [address] [place], [place] [address] 12/02/2024 08:34:30 12/03/2024 11:00:58 Asthenia 13705486 R53.1 PT OT Eval and treatmonit or fall risk and need for increased support in community Essential hypertension 65820207 I10 lisinopril 20 mg qdnorvasc 5 mg qdmonitor bp and need to titrate Hyperlipidemia 72902835 E78.2 lipitor 20 mg qdcontinue d Depressive disorder 3548 9007 F32.0 prozac 40 mg qdremeron 15 mg qdmonitor moodsee above Dementia 77641547 F02.80 baseline dementiain voke [facility] - granddaugh tercontinu e supportive caremonito r for behaviorsp sych eval prnaricept 10 mg qdnamenda 10 mg bidof note currently on haldol qd - will await psych rec Coronary arteriosclerosis 15529830 I25.10 lipitor 20 mg qdasa 81 mg qdmonitor forupdate cards with concerns Gastroesop hageal reflux disease 711399869 K21.9 omeprazole 40 mg qdmonitor for sx relief COVID-19 764352622 U07.1 limited informatio n will request dc summary appears dx with covid now completed treatment Diabetes mellitus 962312 09 E11.9 carrying dx added to PMHjardian ce 10 mg qdmonitor blood glucose prn Aortic valve stenosis 60 463028 I35.0 limited informatio n availabler equest notes from PCP Cirrhosis of liver K74.69 limited informatio n availabler equest notes from PCP Chronic ki dney disease stage 3A 576637091 N18.31 monitor renal functionav oid nephrotoxi c meds as ablenephro consult prn [id number] HAKEEM JOHNSON NP [facility] [address] [place] [address] 12/09/2024 14:46:28 12/11/2024 08:32:16 Asthenia 74220131 R53.1 PT OT Eval and treatmonit or fall risk and need for increased support in community Dementia 20495241 F02.80 baseline dementiain voke HCP - granddaugh tercontinu e supportive caremonito r for behaviorsp sych eval prnaricept 10 mg qdnamenda 10 mg bidof note currently on haldol qd - will await psych rec COVID-19 730353392 U07.1 limited informatio n appears dx with covid now completed treatmentm onitor for sequelae Essential hypertension 72287687 I10 BP soft the past week or so.CBC today stable, chem pendingMai ntain fluidsCurr ently on:lisinop ril 20 mg qdnorvasc 5 mg qd - reduce to 2.5 mg qdmonitor bp and need to titrate Hyperlipidemia 28955114 E78.2 Continue lipitor 20 mg qdConsider stopping, ? benefit vs, risk in frail elder Depressive disorder 4958 9007 F32.0 prozac 40 mg qdremeron 15 mg qdmonitor moodsee above Coronary arteriosclerosis 47150035 I25.10 Continue:l ipitor 20 mg qdasa 81 mg qdmeds for BP controlmon itor VS, CP statusupda te cards with concerns Gastroesop hageal reflux disease 966409827 K21.9 Continue omeprazole 40 mg qdmonitor for sx relief Diabetes mellitus 863924 09 E11.9 carrying dx added to PMHjardian ce 10 mg qdmonitor blood glucose - bid x 7 days, then re-eval.ch yovany A1C prn Aortic valve stenosis 60 770053 I35.0 limited informatio n availabler equest notes from PCP Cirrhosis of liver K74.69 limited informatio n availabler equest notes from PCP Chronic ki dney disease stage 3A 747201860 N18.31 monitor renal functionav oid nephrotoxi c meds as ablenephro consult prn [id number] MD RICARDA Engle [address] [place] [address] 12/19/2024 18:31:17 12/20/2024 16:13:52 Diabetes mellitus 25895749 E11.9 With low sugars since here.Will change fingerstic ks to fasting on Mon & and prn (compromis e with granddaugh ter from my preference of M/W/F).Con tinue Jardiance 10 mg qd. [id number] FLO LEE, SHAHZAD-C RICARDA [address] [place] [address] 12/24/2024 09:08:15 12/31/2024 08:39:05 Diabetes mellitus 39457019 E11.9 With low sugars since here.[place] nue Jardiance 10 mg qd.monitor with VNAconside r decrease in jardiance if BS remains < 100 given age of 89 Asthenia 47856887 R53.1 continue PT OTworking on doing stairsfami ly very supportive VNA services in place per Dementia 12350716 F02.80 baseline dementiain voke HCP - granddabreanna teraricept 10 mg qdnamenda 10 mg bidhaldol once daily COVID-19 927905079 U07.1 resolved Essential hypertension 44903570 I10 improved with reduced dose of amlodipine lisinopril 20 mg qdnorvasc 2.5 mg qdmonitor bp and consider decrease outptpermi ssive BP goals for frail elderly of < 160/ 90 Hyperlipidemia 40276910 E78.2 Continue lipitor 20 mg qdlipids yearly outpt Depressive disorder 9148 9007 F32.0 prozac 40 mg qdremeron 15 mg qdmonitor mood outpt Coronary arteriosclerosis 27704514 I25.10 Continue:l ipitor 20 mg qdasa 81 mg qdmeds for BP control Gastroesop hageal reflux disease 751067681 K21.9 Continue omeprazole 40 mg qdmonitor for sx relief outpt Aortic valve stenosis 60 505950 I35.0 limited informatio n availablen o CP or sob here Cirrhosis of liver 70092 007 K74.69 limited informatio n available Chronic ki dney disease stage 3A 775370069 N18.31 monitor renal function, stable 12/23 labsavoid nephrotoxi c meds as ablenephro consult prn Conjunctivitis 2515651 H 10.9 erythro ophthalmic qid x 7 daysmonito r for improvemen t [id number] MICHAEL RAMOS [facility] [address] [address] 12/27/2024 09:21:35 12/31/2024 09:41:18 Diabetes mellitus 02197905 E11.9 With low sugars since here.[place] nue Jardiance 10 mg qd.monitor with VNAconside r decrease in jardiance if BS remains < 100 given age of 89f/up with pcp Asthenia 13706684 R53.1 completed STR stayable to do stairshas COMPUTER LAB AIDE 6 hr/day at homefamily very supportive VNA services in place per SWf/up with pcp Dementia 65857648 F02.80 baseline dementiain [facility] e supportive care with [employer] 6 hr per day at homearicep t 10 mg qdnamenda 10 mg bidhaldol once dailyf/up with pcp COVID-19 736030141 U07.1 resolvedf/ up with pcp Essential hypertension 84039576 I10 improved with reduced dose of amlodipine lisinopril 20 mg qdnorvasc 2.5 mg qdmonitor bp and consider decrease outptpermi ssive BP goals for frail elderly of < 160/ 89f/up with pcp Hyperlipidemia 02808987 E78.2 Continue lipitor 20 mg qdlipids yearly outptf/up with pcp Depressive disorder 2514 9007 F32.0 prozac 40 mg qdremeron 15 mg qdmonitor mood outptf/up with pcp Coronary arteriosclerosis 68232830 I25.10 Continue:l ipitor 20 mg qdasa 81 mg qdmeds for BP controlf/u p with pcp Gastroesop hageal reflux disease 039575228 K21.9 Continue omeprazole 40 mg qdmonitor for sx relief outptf/up with pcp Aortic valve stenosis 60 878858 I35.0 limited informatio n availablen o CP or sob heref/up with pcp Cirrhosis of liver 007 K74.69 limited informatio n availablef /up with pcp Chronic ki dney disease stage 3A 862022619 N18.31 monitor renal function, stable 12/23 labsavoid nephrotoxi c meds as ablenephro consult prnf/up with pcp Conjunctivitis 7449997 H 10.9 erythro ophthalmic qid x 7 [...] Gonzalez Member ID Guarantor Name 12/31/2024 1 [facility] - DOS ON OR AFTER 2023 - MEDICARE ADVANTAGE [place] & [place] (MEDICARE REPLACEMENT/ADV ANTAGE - PPO) Sienna Mendez [id number] Elena Hurtado 12/02/2024 1 [facility] - DOS PRIOR TO 2023 - DUAL ELIGIBLE (MEDICARE REPLACEMENT/ADV ANTAGE - HMO) Sienna Mendez [id number] Elena Hurtado 12/31/2024 2 [place] [facility] Sienna Andrea [id number] Elena Hurtado Notes Date Note Type Note [...] therapy eval and treat Tony Arreola MD [address] [place] [address], [address], [place], [address], [facility] [employer] [facility] 12/02/2024 09:20:00 12/09/2024 text/html Sienna is seen [...] issues reported by nsg. Case discussed with COMPUTER LAB AIDE, who reports she did not eat as well today compared to other days. No other concerns. VSS, BP on the soft side the past week.Labs stable, chem pending today.No BS documented PMH: dementia , crf stage 3, cirrhosis, , dm, htn, cad, gerd, hld, depression, hx CVA HAKEEM JOHNSON NP [address] [facility], [facility] [address], [place], [address], [employer] 12/09/2024 15:01:58 12/19/2024 text/html I am asked to see this 89 yo kittitian speaking woman rayshawn because her granddaughter is [...] depression, and dementia. Thais Rocha MD [address] [facility], [address], [place], [address], [employer] 12/19/2024 19:10:59 12/24/2024 text/html Patient is an [...] GERD, depression, and dementia. ATIF RAMOSC [address] [facility], [address], [place], [address], [employer] 12/29/2024 16:21:25 12/27/2024 text/html Patient is an [...] and received 6 hrs per day of COMPUTER LAB AIDE care. Seen today and she is medically clear for dc home with meds and services. Her PMH includes HTN, depression, hx of CVA, CAD s/p NSTEMI, cirrhosis, asthma, HLD, CKD stage 3B, GERD, depression, and dementia. ATIF RAMOSC [address] [facility], [address], [place], [address], [employer] [facility] 12/27/2024 09:38:55 OBGyn Episode No OBEpisode recorded.
--- OUTSIDE RECORDS SUMMARY | 2025-09-25 05:53 | XMS_ITS | Encounter Summary ---
Author Organization [employer] Address [address] [facility] [address] [place] [address] Care Team Providers Care Utility Repairer Name Role Phone Myah Singh MD Primary Care Provider [phone] Reason for Visit * Reason Comments Med Refill Encounter Details Date Type Department Care Team (Late st Contact Info) Description 05/22/2024 Refill [facility] [address] [place], [place] [phone] Myah Singh MD [address] [place], [place] [phone] Social History Tobacco Use Types Packs/Day Years [...] documented as of this encounter Care Teams Utility Repairer Relationship Specialty Start Date End Date Myah Singh MD [address] [place] [address] PCP - General Family Medicine 11/08/12 [facility] 12/31/24 07/29/25 documented as of this encounter
--- OUTSIDE RECORDS SUMMARY | 2025-09-25 05:53 | XMS_ITS | Encounter Summary ---
Author Organization [employer] Address [address] [facility] [address] [place] [address] Care Team Providers Care Peer Counselor Name Role Phone Myah Singh MD Primary Care Provider [phone] Reason for Visit * Reason Comments Med Refill Encounter Details Date Type Department Care Team (Late st Contact Info) Description 10/22/2024 Refill [facility] [address] [place], [place] [phone] Myah Singh MD [address] [place], [place] [phone] Allergic rhinitis, unspecified seasonality, unspecified trigger Social [...] documented as of this encounter Care Teams Peer Counselor Relationship Specialty Start Date End Date Myah Singh MD [address] [place] [address] PCP - General Family Medicine 11/08/12 [facility] 12/31/24 07/29/25 documented as of this encounter
--- OUTSIDE RECORDS SUMMARY | 2025-09-25 05:53 | XMS_ITS | Encounter Summary ---
Author Organization [employer] Address [address] [facility] [address] [place] [address] Care Team Providers Care Cost Accounting Clerk Name Role Phone Myah Singh MD Primary Care Provider [phone] Reason for Visit * Reason Comments Med Refill Encounter Details Date Type Department Care Team (Late st Contact Info) Description 11/29/2023 Refill [facility] [address] [place], [place] [phone] Myah Singh MD [address] [place], [place] [phone] Vitamin D deficiency Social History Tobacco Use [...] documented as of this encounter Care Teams Cost Accounting Clerk Relationship Specialty Start Date End Date Myah Singh MD [address] [place] [address] PCP - General Family Medicine 11/08/12 [facility] 12/31/24 07/29/25 documented as of this encounter
--- OUTSIDE RECORDS SUMMARY | 2025-09-25 05:53 | XMS_ITS | Encounter Summary ---
Author Organization [employer] Address [address] [place] [address] Care Team Providers Care It Consultant Name Role Phone Tony Arreola MD Primary Care Provider [phone] Encounter Details Date Type Department Care Team (Late st Contact Info) Description 12/14/2024 Lab Requisition [facility] - Main Lab [address] [place] [address] Tony Arreola MD 38 [facility] [address] [place], [phone] Weakness; Unspecified dementia, unspecified severity, without [...] mmol/L LAB CHEMISTRY METHOD 12/16/2024 1:55 PM [facility] Potassium 4.1 3.5 - 5.5 mmol/L LAB CHEMISTRY METHOD 12/16/2024 1:55 PM [facility] Chloride 113(H) 96 - 110 mmol/L LAB CHEMISTRY METHOD 12/16/2024 1:55 PM [facility] CO2 28 21 - 32 mmol/L LAB CHEMISTRY METHOD 12/16/2024 1:55 PM [facility] Anion Gap 5 3 - 11 LAB CHEMISTRY METHOD 12/16/2024 1:55 PM [facility] Glucose 88 70 - 100 mg/dL LAB CHEMISTRY METHOD 12/16/2024 1:55 PM [facility] BUN 25 5 - 25 mg/dL LAB CHEMISTRY METHOD 12/16/2024 1:55 PM [facility] Creatinine 1.26(H) 0.50 - 1.10 mg/dL LAB CHEMISTRY METHOD 12/16/2024 1:55 PM [facility] eGFR 41(L) >=60 mL/min/1. 73m2 LAB CHEMISTRY METHOD 12/16/2024 1:55 PM [facility] Comment:Calculation based on the Chronic Kidney Disease Epidemiology Collaboration (CKD-EPI) equation refit without adjustment for race. BUN/Creatinine Ratio 19.8 LAB CHEMISTRY METHOD 12/16/2024 1:55 PM [facility] Calcium 9.3 8.5 - 10.5 mg/dL LAB CHEMISTRY METHOD 12/16/2024 1:55 PM [facility] Blood Venous blood specimen / Unknown Venipuncture / Unknown 12/16/2024 7:20 AM EST 12/16/2024 11:32 AM EST us Tony Arreola MD LAB BLOOD ORDERABLES Final Resul t [facility] [address] [place] [address], [place] [phone] * (ABNORMAL) Complete blood count (12/16/2024 7:20 AM EST) [facility] WBC 5.4 4.8 - 10.8 K/mcL LAB HEMETOLOGY METHOD 12/16/2024 12:51 PM [facility] RBC 4.60 3.80 - 4.80 M/mcL LAB HEMETOLOGY METHOD 12/16/2024 12:51 PM [facility] Hemoglobin 13.4 11.5 - 16.0 g/dL LAB HEMETOLOGY METHOD 12/16/2024 12:51 PM [facility] Hematocrit 43.8 35.0 - 47.0 % LAB HEMETOLOGY METHOD 12/16/2024 12:51 PM [facility] MCV 95.8 79.0 - 98.0 FL LAB HEMETOLOGY METHOD 12/16/2024 12:51 PM [facility] MCH 29.3 27.0 - 32.0 pcg LAB HEMETOLOGY METHOD 12/16/2024 12:51 PM [facility] MCHC 30.6(L) 32.0 - 37.0 g/dL LAB HEMETOLOGY METHOD 12/16/2024 12:51 PM [facility] RDW 14.9 11.0 - 15.0 % LAB HEMETOLOGY METHOD 12/16/2024 12:51 PM [facility] Platelets 135 130 - 400 K/mcL LAB HEMETOLOGY METHOD 12/16/2024 12:51 PM [facility] MPV 12.3(H) 7.0 - 11.0 FL LAB HEMETOLOGY METHOD 12/16/2024 12:51 PM [facility] NRBC 0.0 <1.0 % LAB HEMETOLOGY METHOD 12/16/2024 12:51 PM [facility] NRBC Absolute 0.00 <0.10 K/mcL LAB HEMETOLOGY METHOD 12/16/2024 12:51 PM EST [facility] Blood Venous blood specimen / Unknown Venipuncture / Unknown 12/16/2024 7:20 AM EST 12/16/2024 11:32 AM EST us Tony Arreola MD LAB BLOOD ORDERABLES Final Resul t [facility] [address] [place] [address], documented in this encounter Visit Diagnoses Diagnosis Weakness Other malaise and fatigue Unspecified dementia, unspecified severity, without behavioral disturbance, psychotic disturbance, mood disturbance, and anxiety (CMS/HCC V24, CMS/HCC V28) documented in this encounter Care Teams It Consultant Relationship Specialty Start Date End Date Tony Arreola MD [address] [place] [address] [address] [place], [phone] PCP - General Family Medicine 12/14/24 documented as of this encounter
[2025-09-25 06:38] LABS: Anion Gap 11 (12-20); Blood Urea Nitrogen 17 mg/dL (9-16); Calcium 9.2 mg/dL (8.4-10.2); Carbon Dioxide 25 mmol/L (22-29); Chloride 113 mmol/L (96-108); Estimated Glomerular Filt Rate > 60; Potassium 4.1 mmol/L (3.3-5.1); Sodium 145 mmol/L (135-145)
[2025-09-25 06:45] LABS: Hematocrit 39.6 % (37.0-47.0); Hemoglobin 12.4 g/dl (12.0-16.0); Imm Gran Abs Auto 0.01 X10*3/uL (0.00-0.03); Imm Gran Pct Auto 0.2 % (0.0-0.4); Lymphocytes Absolute Auto 1.1 X10*3/uL (1.2-4.9); Mean Corpuscular HGB Conc 31.3 g/dl (31.0-35.0); Mean Corpuscular Hemoglobin 29.3 pg (27.0-33.0); Mean Corpuscular Volume 93.6 fL (80.0-98.0); NRBC Abs Auto 0.000 X10*3/uL (0.0-0.012); NRBC Pct Auto 0.0 /100WBC (0.0-0.2); Platelet Count 144 X10*3/uL (160-400); Red Blood Count 4.23 X10*6/uL (4.20-5.50); White Blood Count 4.8 X10*3/uL (4.8-10.8)
== END 2025-09-25 05:51 | disposition home or self-care (01) ==
LOC: HO.MMNH1L 05:50
PROVIDERS: Visit Provider Physician Assistant Medical
DX: Z13.89 Encounter for screening for other disorder (principal)
CPT/HCPCS: 36415; 80048; 85025

== ENCOUNTER 2025-10-07 13:18 | Outpatient (AMB) | payer OTHER, SELFPAY ==
--- NOTE | 2025-10-07 13:34 | A.OFFVIS_ITS ---
Intake Visit Reasons: F/u Closed fracture of right wrist Intake Note: Sienna is an 89 year old female who presents today in a wheel chair with her granddaughter for a follow up of right wrist fracture. At her last visit she was placed in a velcro wrist splint, to be worn like a cast except for bathing. Patient instructed to follow up in 4 weeks with a repeat x-rays. Today patient reports no pain or discomfort. She has no concerns today. Allergies ceftazidime (Ceftazidime) Allergy (Mild, Verified 10/07/25 14:14) UNKNOWN benzocaine (Benzocaine) Allergy (Unknown, Verified 10/07/25 14:14) UNKNOWN butamben (From Cetacaine) Allergy (Unknown, Verified 10/07/25 14:14) UNKNOWN metoclopramide (From Reglan) Allergy (Unknown, Verified 10/07/25 14:14) UNKNOWN morphine (Morphine) Allergy (Unknown, Verified 10/07/25 14:14) SWELLING tetracaine (From Cetacaine) Allergy (Unknown, Verified 10/07/25 14:14) UNKNOWN HPI HPI F/u Closed fracture of right wrist: Details: Sienna is an 89 year old right hand dominant Diabetic Nepali speaking woman, here with her granddaughter, for a right distal radius fracture. She reportedly fell while in the ED for a UTI, DOI: 08/06/25. This was reduced in the ED. She has Dementia & her granddaughter is here as her medical proxy. When asked, she complains of generalized pain in her right wrist today Her granddaughter says her ordered forearm bearing walker was not approved by her insurance plan, and she is not able to walk without assistance. She has been using a different single sided walker with her left hand at this time. She currently resides in [facility], a detention facility. Please see previous note from 09/09/25 for more information. She has Dementia, Alzheimer's, Hx of falls, aortic stenosis, Hx of CVA, & Diabetes. [facility] Medical History (Updated 08/19/25 @ 14:44 by Darien Estevez MD) Sepsis Cirrhosis of liver DONAVAN (obstructive sleep apnea) Diabetes Allergic dermatitis Hives CVA (cerebral vascular accident) Non-alcoholic micronodular cirrhosis of liver CKD (chronic kidney disease) Dementia Hypertension Surgical History Hx of cholecystectomy No pertinent past surgical history Family History Father No problems noted. Mother No problems noted. Social History Household Members: Unknown / Unable to assess Housing: Unknown / Unable to assess Do you presently have visiting nurse or other home services: No Alcohol intake: current Alcohol intake frequency: does not drink Patient Tobacco Use Status: Former Tobacco user Second Hand Smoke Exposure: No Advance Directives Date on File: 12/07/21 service: No Physical Exam Extrem Other: Evaluation of Right Upper Extremity: The patient is alert, oriented, and in no acute distress She is sitting comfortably and in no apparent pain. No Erythema or evidence of infection. Swelling and ecchymosis have resolved. Cap refill brisk She can bring her fingers close to a fist and then extend them without pain No tenderness about the wrist No tenderness over the distal radius, even with a firm squeeze Patient complaints of pain are generalized when asked, they do not appear to be reproducible on exam today Radiographs: 3 views of the right wrist were taken and viewed by me today in clinic. They show a comminuted intra-articular distal radius fracture with some loss of inclination and some evidence of interval bony healing. She has some evidence of interval bony healing and no change in fracture position compared to previous radiographs. Radiographs from 08/07/25, lateral view shows a reduction to ~5 degrees apex volar angulation. Assessment & Plan Assessment & Plan (1) Fracture of right distal radius: Code(s): S52.501A - Unspecified fracture of the lower end of right radius, initial encounter for closed fracture Category: Medical (2) Numbness of right hand: Code(s): R20.0 - Anesthesia of skin Category: Medical (3) Diabetes: Code(s): E11.9 - Type 2 diabetes mellitus without complications Category: Medical (4) Dementia: Code(s): F03.90 - Unspecified dementia, unspecified severity, without behavioral disturbance, psychotic disturbance, mood disturbance, and anxiety Category: Medical (5) Falls frequently: Code(s): R29.6 - Repeated falls Category: Medical Plan Assessment & Plan: 1. Right distal radius fracture, From a fall, DOI: 08/06/25 Reduced in ED: 08/06/25 3. Right hand numbness Possible carpal tunnel syndrome, no NCS completed I educated her & her granddaughter about this condition. I discussed operative and non-operative treatment options. She may benefit from a carpal tunnel release at a later date She appears to be healing well. She is still in the snf/rehab unit. She may remove her splint when at rest. She will wear her splint with PT for the next 2 weeks I noted that she may start using her right hand and wrist for PT and to use a walker. She may also use both hands now with PT to get to a standing position. She can work on gentle finger and wrist ROM exercises Her previously ordered forearm bearing walker was evidently not approved by her insurance plan, and it is unclear if she has been able to do any PT at all while at [facility]. She has been using a different model of single arm walker with her left side since her last appointment She will follow up prn Her daughter is happy with the current plan. Scribed for Shahida Madsen MD by Santos Aparicio, electromedical equipment repairer, on 10/07/25 at 2:30 PM, EST. Orders: Orders XR wrist RT min 3V Today M25.531 - Pain in right wrist Coding Level of Care Code Global (61980) Diagnoses Fracture of right distal radius S52.501A Numbness of right hand R20.0 Diabetes E11.9 Dementia F03.90 Falls frequently R29.6
--- OUTSIDE RECORDS SUMMARY | 2025-10-07 14:59 | XMS_ITS | Encounter Summary ---
Author Organization [employer] Address [address] [place] [address] Care Team Providers Care Gum Machine Operator Name Role Phone Tony Arreola MD Primary Care Provider [phone] Encounter Details Date Type Department Care Team (Late st Contact Info) Description 11/29/2024 Lab Requisition [facility] - Main Lab [address] [place] [address] Tony Arreola MD 38 [facility] [address] [place], [address] Weakness; Unspecified dementia, unspecified severity, without [...] mmol/L LAB CHEMISTRY METHOD 12/02/2024 11:14 AM [facility] Potassium 4.0 3.5 - 5.5 mmol/L LAB CHEMISTRY METHOD 12/02/2024 11:14 AM [facility] Chloride 112(H) 96 - 110 mmol/L LAB CHEMISTRY METHOD 12/02/2024 11:14 AM [facility] CO2 27 21 - 32 mmol/L LAB CHEMISTRY METHOD 12/02/2024 11:14 AM [facility] Anion Gap 5 3 - 11 LAB CHEMISTRY METHOD 12/02/2024 11:14 AM [facility] Glucose 80 70 - 100 mg/dL LAB CHEMISTRY METHOD 12/02/2024 11:14 AM [facility] BUN 28(H) 5 - 25 mg/dL LAB CHEMISTRY METHOD 12/02/2024 11:14 AM [facility] Creatinine 1.19(H) 0.50 - 1.10 mg/dL LAB CHEMISTRY METHOD 12/02/2024 11:14 AM [facility] eGFR 44(L) >=60 mL/min/1. 73m2 LAB CHEMISTRY METHOD 12/02/2024 11:14 AM [facility] Comment:Calculation based on the Chronic Kidney Disease Epidemiology Collaboration (CKD-EPI) equation refit without adjustment for race. BUN/Creatinine Ratio 23.5 LAB CHEMISTRY METHOD 12/02/2024 11:14 AM [facility] Calcium 9.3 8.5 - 10.5 mg/dL LAB CHEMISTRY METHOD 12/02/2024 11:14 AM [facility] Blood Venous blood specimen / Unknown Venipuncture / Unknown 12/02/2024 7:21 AM EST 12/02/2024 10:33 AM EST us Tony Arreola MD LAB BLOOD ORDERABLES Final Resul t [facility] [address] [place] [address], * (ABNORMAL) Complete blood count (12/02/2024 7:21 AM EST) [facility] WBC 6.8 4.8 - 10.8 K/mcL LAB HEMETOLOGY METHOD 12/02/2024 10:57 AM [facility] RBC 4.40 3.80 - 4.80 M/mcL LAB HEMETOLOGY METHOD 12/02/2024 10:57 AM [facility] Hemoglobin 12.9 11.5 - 16.0 g/dL LAB HEMETOLOGY METHOD 12/02/2024 10:57 AM [facility] Hematocrit 41.3 35.0 - 47.0 % LAB HEMETOLOGY METHOD 12/02/2024 10:57 AM [facility] MCV 93.9 79.0 - 98.0 FL LAB HEMETOLOGY METHOD 12/02/2024 10:57 AM [facility] MCH 29.3 27.0 - 32.0 pcg LAB HEMETOLOGY METHOD 12/02/2024 10:57 AM [facility] MCHC 31.2(L) 32.0 - 37.0 g/dL LAB HEMETOLOGY METHOD 12/02/2024 10:57 AM [facility] RDW 14.5 11.0 - 15.0 % LAB HEMETOLOGY METHOD 12/02/2024 10:57 AM [facility] Platelets 155 130 - 400 K/mcL LAB HEMETOLOGY METHOD 12/02/2024 10:57 AM [facility] MPV 11.6(H) 7.0 - 11.0 FL LAB HEMETOLOGY METHOD 12/02/2024 10:57 AM [facility] NRBC 0.0 <1.0 % LAB HEMETOLOGY METHOD 12/02/2024 10:57 AM [facility] NRBC Absolute 0.00 <0.10 K/mcL LAB HEMETOLOGY METHOD 12/02/2024 10:57 AM EST [facility] Blood Venous blood specimen / Unknown Venipuncture / Unknown 12/02/2024 7:21 AM EST 12/02/2024 10:33 AM EST us Tony Arreola MD LAB BLOOD ORDERABLES Final Resul t [facility] [address] [place] [address], documented in this encounter Visit Diagnoses Diagnosis Weakness Other malaise and fatigue Unspecified dementia, unspecified severity, without behavioral disturbance, psychotic disturbance, mood disturbance, and anxiety (CMS/HCC V24, CMS/HCC V28) documented in this encounter Care Teams Gum Machine Operator Relationship Specialty Start Date End Date Tony Arreola MD [address] [place] [address] [address] [place], [phone] PCP - General Family Medicine 12/14/24 documented as of this encounter
--- OUTSIDE RECORDS SUMMARY | 2025-10-07 14:59 | XMS_ITS | Encounter Summary ---
Author Organization [employer] Address [address] [facility] 7[address] [place] [address] Care Team Providers Care Still Operator Name Role Phone Myah Singh MD Primary Care Provider [phone] Reason for Visit * Reason Comments Med Refill Encounter Details Date Type Department Care Team (Late st Contact Info) Description 11/29/2023 Refill [facility] [address] [place], [place] [phone] Myah Singh MD [address] [place], [place] [phone] Vitamin D deficiency Social History Tobacco Use [...] documented as of this encounter Care Teams Still Operator Relationship Specialty Start Date End Date Myah Singh MD [address] [place] [address] PCP - General Family Medicine 11/08/12 [facility] 12/31/24 07/29/25 documented as of this encounter
--- OUTSIDE RECORDS SUMMARY | 2025-10-07 14:59 | XMS_ITS | Encounter Summary ---
Author Organization [employer] Address [address] [place] [address] Care Team Providers Care Pruner Name Role Phone Tony Arreola MD Primary Care Provider [phone] Encounter Details Date Type Department Care Team (Late st Contact Info) Description 12/21/2024 Lab Requisition [facility] - Main Lab [address] [place] [address] Tony Arreola MD 38 [facility] [address] [place], [phone] Weakness; Unspecified dementia, unspecified severity, without [...] mmol/L LAB CHEMISTRY METHOD 12/23/2024 12:53 PM [facility] Potassium 4.2 3.5 - 5.5 mmol/L LAB CHEMISTRY METHOD 12/23/2024 12:53 PM [facility] Chloride 111(H) 96 - 110 mmol/L LAB CHEMISTRY METHOD 12/23/2024 12:53 PM [facility] CO2 28 21 - 32 mmol/L LAB CHEMISTRY METHOD 12/23/2024 12:53 PM [facility] Anion Gap 5 3 - 11 LAB CHEMISTRY METHOD 12/23/2024 12:53 PM [facility] Glucose 84 70 - 100 mg/dL LAB CHEMISTRY METHOD 12/23/2024 12:53 PM [facility] BUN 22 5 - 25 mg/dL LAB CHEMISTRY METHOD 12/23/2024 12:53 PM [facility] Creatinine 1.25(H) 0.50 - 1.10 mg/dL LAB CHEMISTRY METHOD 12/23/2024 12:53 PM [facility] eGFR 42(L) >=60 mL/min/1. 73m2 LAB CHEMISTRY METHOD 12/23/2024 12:53 PM [facility] Comment:Calculation based on the Chronic Kidney Disease Epidemiology Collaboration (CKD-EPI) equation refit without adjustment for race. BUN/Creatinine Ratio 17.6 LAB CHEMISTRY METHOD 12/23/2024 12:53 PM [facility] Calcium 9.3 8.5 - 10.5 mg/dL LAB CHEMISTRY METHOD 12/23/2024 12:53 PM [facility] Blood Venous blood specimen / Unknown Venipuncture / Unknown 12/23/2024 6:50 AM EST 12/23/2024 10:55 AM EST us Tony Arreola MD LAB BLOOD ORDERABLES Final Resul t [facility] [address] [place] [address], * (ABNORMAL) Complete blood count (12/23/2024 6:50 AM EST) [facility] WBC 6.0 4.8 - 10.8 K/mcL LAB HEMETOLOGY METHOD 12/23/2024 12:49 PM [facility] RBC 4.70 3.80 - 4.80 M/mcL LAB HEMETOLOGY METHOD 12/23/2024 12:49 PM [facility] Hemoglobin 13.4 11.5 - 16.0 g/dL LAB HEMETOLOGY METHOD 12/23/2024 12:49 PM [facility] Hematocrit 43.6 35.0 - 47.0 % LAB HEMETOLOGY METHOD 12/23/2024 12:49 PM [facility] MCV 93.6 79.0 - 98.0 FL LAB HEMETOLOGY METHOD 12/23/2024 12:49 PM [facility] MCH 28.8 27.0 - 32.0 pcg LAB HEMETOLOGY METHOD 12/23/2024 12:49 PM [facility] MCHC 30.7(L) 32.0 - 37.0 g/dL LAB HEMETOLOGY METHOD 12/23/2024 12:49 PM [facility] RDW 14.8 11.0 - 15.0 % LAB HEMETOLOGY METHOD 12/23/2024 12:49 PM [facility] Platelets 142 130 - 400 K/mcL LAB HEMETOLOGY METHOD 12/23/2024 12:49 PM [facility] MPV 12.0(H) 7.0 - 11.0 FL LAB HEMETOLOGY METHOD 12/23/2024 12:49 PM [facility] NRBC 0.0 <1.0 % LAB HEMETOLOGY METHOD 12/23/2024 12:49 PM [facility] NRBC Absolute 0.00 <0.10 K/mcL LAB HEMETOLOGY METHOD 12/23/2024 12:49 PM EST [facility] [place] [facility] Blood Venous blood specimen / Unknown Venipuncture / Unknown 12/23/2024 6:50 AM EST 12/23/2024 10:55 AM EST Tony Arreola MD LAB BLOOD ORDERABLES Final Resul t [facility] [address] [place] [address], documented in this encounter Visit Diagnoses Diagnosis Weakness Other malaise and fatigue Unspecified dementia, unspecified severity, without behavioral disturbance, psychotic disturbance, mood disturbance, and anxiety (CMS/HCC V24, CMS/HCC V28) documented in this encounter Care Teams Pruner Relationship Specialty Start Date End Date Tony Arreola MD [address] [place] [address], [phone] PCP - General Family Medicine 12/14/24 documented as of this encounter
--- OUTSIDE RECORDS SUMMARY | 2025-10-07 14:59 | XMS_ITS | Encounter Summary ---
Author Organization [employer] Address [address] [place] [address] Care Team Providers Care Hydrator Operator Name Role Phone Tony Arreola MD Primary Care Provider Encounter Details Date Type Department Care Team (Late st Contact Info) Description 12/06/2024 Lab Requisition [facility] - Main Lab [address] [place] [address] Tony Arreola MD 38 [facility] [address] [place], [address] Weakness; Unspecified dementia, unspecified severity, without [...] MD LAB BLOOD ORDERABLES Final Resul t [facility] [address] [place] [address], [place] [phone] * (ABNORMAL) Complete blood count (12/09/2024 7:13 AM EST) [facility] Signature WBC 6.9 4.8 - 10.8 [...] LAB HEMETOLOGY METHOD 12/09/2024 12:37 PM EST [facility] Blood Venous blood specimen / Unknown Venipuncture / Unknown 12/09/2024 7:13 AM EST 12/09/2024 11:17 AM EST us Tony Arreola MD LAB BLOOD ORDERABLES Final Resul t [facility] [address] [place] [address], documented in this encounter Visit Diagnoses Diagnosis Weakness Other malaise and fatigue Unspecified dementia, unspecified severity, without behavioral disturbance, psychotic disturbance, mood disturbance, and anxiety (CMS/HCC V24, CMS/HCC V28) documented in this encounter Care Teams Hydrator Operator Relationship Specialty Start Date End Date Tony Arreola MD [address] [place] [address], [phone] PCP - General Family Medicine 12/14/24 documented as of this encounter
--- OUTSIDE RECORDS SUMMARY | 2025-10-07 14:59 | XMS_ITS | Encounter Summary ---
Author Organization [employer] Address [address] [place] [address] [address] [place] [address] Care Team Providers Care Fire Manager Name Role Phone Myah Singh MD Primary Care Provider [phone] Reason for Visit * Reason Onset Date Comments Durable Medical Equipment 01/30/2023 Encounter Details Date Type Department Care Team (Late st Contact Info) Description 01/30/2023 Telephone [facility] [address] [place], [place] [phone] Myah Singh MD [address] [place], [place] [phone] Durable Medical Equipment Social History Tobacco Use [...] call me or CHACE Beltran also patient PRODUCTION DISPATCHER can call them as they are the vendor for more information [phone] * Telephone Encounter - Uriahdenise Dhillonmahad [place] - 01/30/2023 10:00 AM EST Tc from pt PRODUCTION DISPATCHER Jonathan stating that for the last two months pt Large Pull ups and Wipes have not been deliver Please contact jonathan at [phone] documented in this encounter Plan of Treatment Not on file documented as of this encounter Visit Diagnoses Not on filedocumented in this encounter Care Teams Fire Manager Relationship Specialty Start Date End Date Myah Singh MD [address] [place] [address] PCP - General Family Medicine 11/08/12 [facility] 12/31/24 07/29/25 documented as of this encounter
--- OUTSIDE RECORDS SUMMARY | 2025-10-07 14:59 | XMS_ITS | Encounter Summary ---
Author Organization [employer] Address [address] [place] [address] Care Team Providers Care Coal Or Ore Controller Name Role Phone Tony Arreola MD Primary Care Provider Encounter Details Date Type Department Care Team (Late st Contact Info) Description 12/28/2024 Lab Requisition [facility] - Main Lab 299 [facility] [place] [address] Tony Arreola MD 38 [facility] [address] [place], [phone] Weakness; Unspecified dementia, unspecified severity, without [...] V28) documented in this encounter Care Teams Coal Or Ore Controller Relationship Specialty Start Date End Date Tony Arreola MD 38 [facility] [address] [place], [phone] PCP - General Family Medicine 12/14/24 documented as of this encounter
--- OUTSIDE RECORDS SUMMARY | 2025-10-07 14:59 | XMS_ITS | Patient Health Record ---
Author Organization [facility] Address [address] [place] [address] Care Team Providers Care Boston Cutter Name Role Phone Samantha GARCIA, Myah Primary Care Provider Cali Bailey [phone] Allergies Allergen (clinical drug ingredient) Drug/Non Drug [...] Notes Problem Gastroesophageal reflux disease without esophagitis (424016211) Gastroesophageal reflux disease without esophagitis (K21.9) Active confirmed Problem Elevated liver enzymes level ([id number]) Elevated liver enzymes (R74.8) Active confirmed Problem Constipation (99826846) Constipation, unspecified constipation type (K59.00) Active confirmed Plan Of Treatment Pending Test Test Name Order Date LIVER PROFILE 04/06/2016 Insurance Providers Payer Name Payer Address Payer Phone Subscriber Number Group Number Insured Name Patient Relationship to Insured Coverage Start Date Coverage End Date [facility] [address] [place] [address] [id number] ZITA PAPPAS Self - patient is the insured MEDICARE OF [place] [address] [place] [address] [id number] ZITA PAPPAS Self - patient is the insured Medical (General) History Medical History History ICD Code GERD--UPPER ENDOSCOPY & COLO NOSCOPY IN 2007--Large HH with tiny area of Polanco's esophagus, no dysplasia; normal colonoscopy DEPRESSION HYPERTENSION HISTORY OF STROKE Kidney stones Denies AL,DM,lung disease,renal disease minor stroke and heart attack [...]
--- OUTSIDE RECORDS SUMMARY | 2025-10-07 14:59 | XMS_ITS | Clinical Summary ---
Author Organization [employer] Address [address] [place] [address] 7t [place] [address] Care Team Providers Care Bundler Name Role Phone Myah Singh MD Primary Care Provider [phone] Allergies Active Allergy Reactions Criticality Noted Date [...] PM EDT): -Oct 2015 -Previously following with [facility] Cardiology, upcoming appt -Continue risk factor mangement Assessment & Plan (01/07/2023 4:34 PM EST): -Oct 2015 -Previously following with [facility] Cardiology, upcoming appt -Continue risk factor mangement [...] cm2. Mild aortic valve regurgitation. -Seen by admissions gate attendant, Dr. Garcia in [facility], on 07/27/23, since she is not a [...] cm2. Mild aortic valve regurgitation. -Seen by admissions gate attendant, Dr. Garcia in [facility], on 07/27/23, since she is not a [...] cm2. Mild aortic valve regurgitation. -Seen by admissions gate attendant, Dr. Garcia in [facility], on 07/27/23, since she is not a [...] -Pt has an upcoming appt with her admissions gate attendant Assessment & Plan (01/07/2023 5:17 PM EST): - Most recent TTE 10/14/22: There is mild calcification of the aortic valve. There is moderate aortic valve stenosis. The peak aortic gradient is 33 mmHg.The mean gradient is 16 mmHg. There is mild aortic valve regurgitation. -Pt has loud murmur consistent with aortic stenosis -NSTEMI in 2015 -Pt has an upcoming appt with her admissions gate attendant Anemia 01/07/2023 Assessment & Plan (01/07/2023 5:24 PM EST): - anemia of chronic disease (CKD, cirrhosis) - continue ferrous sulfate - check lab Diabetes mellitus, type 2 12/28/2022 Overview (04/07/2025): Frequent utis from jardiance Assessment & Plan (05/06/2025 11:29 AM EDT): Blood sugars are in range (90-110)without jardance, pt grandaughter and REGROOVER deny any swelling, sob, orthopnea edema or [...] Plan (01/17/2025 5:56 AM EST): -Following with [facility] Sleep medicine clinic, last seen in January [...] monitor periodically Osteopenia 01/07/2013 Anxiety 12/10/2012 Dementia ([facility]/HCC) 12/10/2012 Assessment & Plan (01/17/2025 5:58 AM EST): -multifactorial: Alzeheimer's; Hx CVA and TIA; hx COVID; depression / anxiety -following with Dr. Estevez, neurologist, last seen in Dec 2021, and psychiatrist Dr. Diaz -continue current medications prescribed by both neurologist and psychiatrist -it seems like patient was seeing psychiatrist while staying in the [facility] -work on risk factor management -reviewed safety [...] Risk: CKD, age, NSTEMI, Hx CVA/TIA, DM2 -Denier Control Operator: Previously [facility] pt has a new appt on 01/23/23 [...] Risk: CKD, age, NSTEMI, Hx CVA/TIA, DM2 -Denier Control Operator: Previously [facility] pt has a new appt on 01/23/23 [...] Risk: CKD, age, NSTEMI, Hx CVA/TIA, DM2 -Denier Control Operator: [facility] 01/23/23 (Grade [...] Risk: CKD, age, NSTEMI, Hx CVA/TIA, DM2 -Denier Control Operator: Previously [facility] pt has a new appt on 01/23/23 [...] Risk: CKD, age, NSTEMI, Hx CVA/TIA, DM2 -Denier Control Operator: Previously [facility], pt has a new appt on 01/23/23 [...] Assessment & Plan (01/17/2025 6:08 AM EST): -Fountain Worker: Dr. Martinez -Avoid nephrotoxic drugs and use renal dosing. -Recheck renal function today -On Jardiance, at low-dose, 10mg daily. Caution with UTI Assessment & Plan (02/04/2024 1:13 PM EDT): -Fountain Worker: Dr. Martinez -Baseline: 09/26/22 BUN 29; SCr 1.2, eGFR 43, AST 12, ALT 19, AP 91 -Avoid nephrotoxic drugs and use renal dosing. -Recheck renal function today -On Jardiance, at low-dose, 10mg daily. Assessment & Plan (09/10/2023 4:32 PM EDT): -Fountain Worker: Dr. Martinez, last seen in 2016 or 2017. Per caregiver, pt was discharged due to stability -Baseline: 09/26/22 BUN 29; SCr 1.2, eGFR 43, AST 12, ALT 19, AP 91 -Avoid nephrotoxic drugs and use renal dosing. -Recheck renal function today -On Jardiance, at low-dose, 10mg daily. Assessment & Plan (05/08/2023 11:04 AM EDT): -Fountain Worker: Dr. Martinez, last seen in 2016 or 2017. Per caregiver, pt was discharged due to stability -Baseline: 09/26/22 BUN 29; SCr 1.2, eGFR 43, AST 12, ALT 19, AP 91 -Avoid nephrotoxic drugs and use renal dosing. -Recheck renal function today -On Jardiance, at low-dose, 10mg daily. Assessment & Plan (01/07/2023 4:54 PM EST): -Fountain Worker: Dr. Martinez, last seen in 2017 [...] Type Department Care Team Description 08/09/2025 Refill [facility] [address] [place] [address] Myah Singh MD 08/07/2025 Orders Only GENERIC EXTERNAL DATA DEPARTMENT Provider, Generic External Data 08/04/2025 Refill [facility] [address] [place] [address] Myah Singh MD Type 2 diabetes mellitus with stage 3 chronic kidney disease, without long-term current use of insulin, unspecified whether stage 3a or 3b CKD ([facility]) 07/21/2025 Refill [facility] [address] [place], [place] [phone] Liliana Sears MD 07/21/2025 Refill [facility] [address] [place], [place] [phone] Myah Singh MD Allergic rhinitis, unspecified seasonality, unspecified trigger 07/10/2025 Telephone [facility] [address] [place], [place] [phone] Myah Singh MD Durable Medical Equipment (DME: [...] Whole Blood 90 60 - 115 mg/dL [facility] Comment:METER #: [id number] 08/07/2025 12:2 0 PM EDT 08/07/2025 4:35 PM EDT us Generic External Data Provider LAB BLOOD ORDERAB LES Final Result [facility] [address] [place] [phone] * SARS-CoV-2 RNA, Influenza A/B, and RSV RNA, Ql NAAT (08/07/2025 8:48 AM EDT) Pathologist [facility] Influenza A PCR NEGATIVE Negative [facility] Influenza B PCR NEGATIVE Negative [facility] Resp Syncy Virus RNA Qual PCR NEGATIVE Negative [facility] SARS COV2 PCR NEGATIVE Negative [facility] Comment:All test results mus t be [...] use by authorized laboratories.Testing performed on the [employer] GeneXpert utilizingreal-time RT-PCR.All SARS CoV2 and positive influenza A/B results arereported to [facility]. 08/07/2025 8:48 AM EDT 08/07/2025 8:51 AM EDT Generic External Data Provider LAB MICROBIOLOGY - GENERAL ORDERABLES Final Result [facility] [address] [place] [address] [phone] * Lipid Panel with Reflex to Direct LDL (01/22/2024 12:20 PM EST) Triglycerides 130 <150 mg/dL [facility] Comment:Desirable Triglyceri de: less than 150 mg/dLBorderline High Triglyceride 150-199 mg/dLHigh Triglyceride: 200-499 mg/dLVery High Triglyceride: greater than or equal to 5OO mg/dL Cholesterol 109 <200 mg/dL [facility] Comment:Desirable Cholestero l: less than 200 mg/dLBorderline High Cholesterol: 200-239 mg/dLHigh Cholesterol: greater than 239 mg/dL LDL Cholesterol Calculated 41 <100 mg/dL [facility] Comment:Desirable LDL: less than 100 [...] MD LAB BLOOD ORDERABLES Final Resul t [facility] [address] [place] [address] [phone] * (ABNORMAL) POCT glycosylated hemoglobin (Hgb A1c) (09/11/2023 10:29 AM EDT) Hemoglobin A1C 6.2(A) 4.0 - 6.0 % QC Media Lot # [id number] Lot# Expiration Date Blood Capillary blood specimen / Unknown 09/11/2023 10:29 AM EDT Myah Singh MD POINT OF CARE TEST ENTER/EDIT OR DERABLES Final Result from Last 3 Months or Most Recently Relevant to Health Maintenance Insurance [facility] LONG-TERM OPTIONS (O D-SNP) [place] [id number] Care Teams Bundler Relationship Specialty Start Date End Date Myah Singh MD [address] [place] [address] [place] [address] PCP - General Family Medicine 11/08/12
--- OUTSIDE RECORDS SUMMARY | 2025-10-07 14:59 | XMS_ITS | Encounter Summary ---
Author Organization [employer] Address [address] [place] [address] Care Team Providers Care Clean Up Worker Name Role Phone Tony Arreola MD Primary Care Provider [phone] Encounter Details Date Type Department Care Team (Late st Contact Info) Description 12/14/2024 Lab Requisition [facility] - Main Lab [address] [place] [address] Tony Arreola MD [address] [facility] [address] [place], [phone] Weakness; Unspecified dementia, unspecified severity, without [...] mmol/L LAB CHEMISTRY METHOD 12/16/2024 1:55 PM [facility] Potassium 4.1 3.5 - 5.5 mmol/L LAB CHEMISTRY METHOD 12/16/2024 1:55 PM [facility] Chloride 113(H) 96 - 110 mmol/L LAB CHEMISTRY METHOD 12/16/2024 1:55 PM [facility] CO2 28 21 - 32 mmol/L LAB CHEMISTRY METHOD 12/16/2024 1:55 PM [facility] Anion Gap 5 3 - 11 LAB CHEMISTRY METHOD 12/16/2024 1:55 PM [facility] Glucose 88 70 - 100 mg/dL LAB CHEMISTRY METHOD 12/16/2024 1:55 PM [facility] BUN 25 5 - 25 mg/dL LAB CHEMISTRY METHOD 12/16/2024 1:55 PM [facility] Creatinine 1.26(H) 0.50 - 1.10 mg/dL LAB CHEMISTRY METHOD 12/16/2024 1:55 PM [facility] eGFR 41(L) >=60 mL/min/1. 73m2 LAB CHEMISTRY METHOD 12/16/2024 1:55 PM [facility] Comment:Calculation based on the Chronic Kidney Disease Epidemiology Collaboration (CKD-EPI) equation refit without adjustment for race. BUN/Creatinine Ratio 19.8 LAB CHEMISTRY METHOD 12/16/2024 1:55 PM [facility] Calcium 9.3 8.5 - 10.5 mg/dL LAB CHEMISTRY METHOD 12/16/2024 1:55 PM [facility] Blood Venous blood specimen / Unknown Venipuncture / Unknown 12/16/2024 7:20 AM EST 12/16/2024 11:32 AM EST us Tony Arreola MD LAB BLOOD ORDERABLES Final Resul t [facility] [address] [place] [address], [place] [phone] * (ABNORMAL) Complete blood count (12/16/2024 7:20 AM EST) [facility] WBC 5.4 4.8 - 10.8 K/mcL LAB HEMETOLOGY METHOD 12/16/2024 12:51 PM [facility] RBC 4.60 3.80 - 4.80 M/mcL LAB HEMETOLOGY METHOD 12/16/2024 12:51 PM [facility] Hemoglobin 13.4 11.5 - 16.0 g/dL LAB HEMETOLOGY METHOD 12/16/2024 12:51 PM [facility] Hematocrit 43.8 35.0 - 47.0 % LAB HEMETOLOGY METHOD 12/16/2024 12:51 PM [facility] MCV 95.8 79.0 - 98.0 FL LAB HEMETOLOGY METHOD 12/16/2024 12:51 PM [facility] MCH 29.3 27.0 - 32.0 pcg LAB HEMETOLOGY METHOD 12/16/2024 12:51 PM [facility] MCHC 30.6(L) 32.0 - 37.0 g/dL LAB HEMETOLOGY METHOD 12/16/2024 12:51 PM [facility] RDW 14.9 11.0 - 15.0 % LAB HEMETOLOGY METHOD 12/16/2024 12:51 PM [facility] Platelets 135 130 - 400 K/mcL LAB HEMETOLOGY METHOD 12/16/2024 12:51 PM [facility] MPV 12.3(H) 7.0 - 11.0 FL LAB HEMETOLOGY METHOD 12/16/2024 12:51 PM [facility] NRBC 0.0 <1.0 % LAB HEMETOLOGY METHOD 12/16/2024 12:51 PM [facility] NRBC Absolute 0.00 <0.10 K/mcL LAB HEMETOLOGY METHOD 12/16/2024 12:51 PM EST [facility] Blood Venous blood specimen / Unknown Venipuncture / Unknown 12/16/2024 7:20 AM EST 12/16/2024 11:32 AM EST us Tony Arreola MD LAB BLOOD ORDERABLES Final Resul t [facility] [address] [place] [address], documented in this encounter Visit Diagnoses Diagnosis Weakness Other malaise and fatigue Unspecified dementia, unspecified severity, without behavioral disturbance, psychotic disturbance, mood disturbance, and anxiety (CMS/HCC V24, CMS/HCC V28) documented in this encounter Care Teams Clean Up Worker Relationship Specialty Start Date End Date Tony Arreola MD [address] [place] [address] [address] [place], [phone] PCP - General Family Medicine 12/14/24 documented as of this encounter
--- OUTSIDE RECORDS SUMMARY | 2025-10-07 14:59 | XMS_ITS | Clinical Summary ---
Author Organization [address] [facility] Address [address] [place] [address] Phone Care Team Providers Care Truck Packer Name Role Phone Tony Arreola MD Primary Care Provider [phone] Social History Tobacco Use Types Packs/Day Years [...] Resul t [facility] [address] [place] [address], * (ABNORMAL) Comprehensive metabolic panel (02/24/2025 6:34 AM EDT) Sodium 142 133 - 145 mmol/L LAB CHEMISTRY METHOD 02/24/2025 12:[address] [facility] Potassium 4.1 3.5 - 5.5 mmol/L LAB CHEMISTRY METHOD 02/24/2025 12:24 PM [facility] Chloride 108 96 - 110 mmol/L LAB CHEMISTRY METHOD 02/24/2025 12:24 PM [facility] CO2 28 21 - 32 mmol/L LAB CHEMISTRY METHOD 02/24/2025 12:24 PM [facility] Anion Gap 6 3 - 11 LAB CHEMISTRY METHOD 02/24/2025 12:24 PM [facility] Glucose 91 70 - 100 mg/dL LAB CHEMISTRY METHOD 02/24/2025 12:24 PM [facility] BUN 30(H) 5 - 25 mg/dL LAB CHEMISTRY METHOD 02/24/2025 12:24 PM [facility] Creatinine 1.02 0.50 - 1.10 mg/dL LAB CHEMISTRY METHOD [facility] eGFR 53(L) >=60 mL/min/1. 73m2 LAB CHEMISTRY METHOD 02/24/2025 12:24 PM [facility] Comment:Calculation based on the Chronic Kidney Disease Epidemiology Collaboration (CKD-EPI) equation refit without adjustment for race. BUN/Creatinine Ratio 29.4 LAB CHEMISTRY METHOD 02/24/2025 12:24 PM [facility] Calcium 10.5 8.5 - 10.5 mg/dL LAB CHEMISTRY METHOD 02/24/2025 12:24 PM [facility] AST (SGOT) 31 10 [...] Resul t [facility] [address] [place] [address], from Last 3 Months or Most Recently Relevant to Health Maintenance Insurance [facility] MEDICARE Member Subscriber Plan / Payer (Ef fective 2019-Present) Name:Sienna Mendez Relation to Subscriber:Self Name:Sienna Mendez Payer ID:[id number] Group ID:[id number] Type:Not on file Address: [address] [place] [id number] Care Teams Truck Packer Relationship Specialty Start Date End Date Tony Arreola MD [address] [place] [address] [address] [place], [phone] PCP - General Family Medicine 12/14/24
--- OUTSIDE RECORDS SUMMARY | 2025-10-07 14:59 | XMS_ITS | Encounter Summary ---
Author Organization [employer] Address [address] [facility] 7t [place] [address] Care Team Providers Care Story Teller Name Role Phone Myah Singh MD Primary Care Provider [phone] Encounter Details Date Type Department Care Team (Late st Contact Info) Description 01/30/2023 Telephone [facility] [address] [place], [place] [phone] Myah Singh MD [address] [place], [place] [phone] Social History Tobacco Use Types Packs/Day Years [...] on filedocumented in this encounter Care Teams Story Teller Relationship Specialty Start Date End Date Myah Singh MD [address] [place], [place] [phone] PCP - General Family Medicine 11/08/12 [facility] 12/31/24 07/29/25 documented as of this encounter
--- OUTSIDE RECORDS SUMMARY | 2025-10-07 15:00 | XMS_ITS | Encounter Summary ---
Author Organization [employer] Address [address] [facility] 7t [place] [address] Care Team Providers Care Balance Wheel Arm Burnisher Name Role Phone Myah Singh MD Primary Care Provider [phone] Encounter Details Date Type Department Care Team ([facility] st Contact Info) Description 03/26/2025 Telephone [facility] [address] [place], [place] [phone] Myah Singh MD [address] [place], [place] [phone] Social History Tobacco Use Types Packs/Day Years [...] documented as of this encounter Care Teams Balance Wheel Arm Burnisher Relationship Specialty Start Date End Date Myah Singh MD [address] [place] [phone] PCP - General Family Medicine 11/08/12 [facility] 12/31/24 07/29/25 documented as of this encounter
--- OUTSIDE RECORDS SUMMARY | 2025-10-07 15:00 | XMS_ITS | Encounter Summary ---
Author Organization [employer] Address [address] [place] [address] Care Team Providers Care Computator Name Role Phone Tony Arreola MD Primary Care Provider [phone] Encounter Details Date Type Department Care Team (Late st Contact Info) Description 02/24/2025 Lab Requisition [facility] - Main Lab [address] [facility] [place] [address] Venus Mayberry MD [address] [place], [place] [phone] Essential (primary) hypertension; Type 2 diabetes mellitus [...] * Vitamin B12 (02/24/2025 6:34 AM EDT) [facility] Vitamin B-12 324 250 - 900 pcg/mL LAB CHEMISTRY METHOD 02/24/2025 12:24 PM EDT [facility] Blood Venous blood specimen / Unknown Venipuncture / Unknown 02/24/2025 6:34 AM EDT 02/24/2025 10:44 AM EDT us Venus Mayberry MD LAB BLOOD ORDERABLES Final Resul t Performing Organization Address City/[facility]/ZIP Co de Phone Number [facility] [address] [place] [address], [place] [phone] * Folate (02/24/2025 6:34 AM EDT) [facility] Folate 11.3 2.8 - 17.0 ng/ml LAB CHEMISTRY METHOD 02/24/2025 12:24 PM EDT [facility] Blood Venous blood specimen / Unknown Venipuncture / Unknown 02/24/2025 6:34 AM EDT 02/24/2025 10:44 AM EDT us Venus Mayberry MD LAB BLOOD ORDERABLES Final Resul t Performing Organization Address City/[facility]/ZIP Co de Phone Number [facility] [address] [place] [address], [place] [phone] * (ABNORMAL) Vitamin D 25 hydroxy (02/24/2025 6:34 AM EDT) Pathologist [facility] Vit D, 25-Hydroxy 29.9(L) 30.0 - 80.0 ng/mL LAB CHEMISTRY METHOD 02/24/2025 1:12 PM EDT [facility] Blood Venous blood specimen / Unknown Venipuncture / Unknown 02/24/2025 6:34 AM EDT 02/24/2025 10:44 AM EDT us Venus Mayberry MD LAB BLOOD ORDERABLES Final Resul t Performing Organization Address [facility] Co de Phone Number [facility] [address] [place] [address], * Thyroid stimulating hormone (02/24/2025 6:34 AM EDT) [facility] TSH 1.44 0.40 - 4.00 mcIU/mL LAB CHEMISTRY METHOD 02/24/2025 1:13 PM EDT [facility] Blood Venous blood specimen / Unknown Venipuncture / Unknown 02/24/2025 6:34 AM EDT 02/24/2025 10:44 AM EDT us Venus Mayberry MD LAB BLOOD ORDERABLES Final Resul t Performing Organization Address [facility] de Phone Number [facility] [address] [place] [address], [place] [phone] * Hemoglobin A1c (02/24/2025 6:34 AM EDT) [facility] Hemoglobin A1C 5.9 <6.5 % LAB CHEMISTRY METHOD 02/24/2025 9:29 PM EDT [facility] Mean Bld Glu Estim. 123 mg/dL LAB CHEMISTRY METHOD 02/24/2025 9:29 PM EDT [facility] Blood Venous blood specimen / Unknown Venipuncture / Unknown 02/24/2025 6:34 AM EDT 02/24/2025 10:44 AM EDT us Venus Mayberry MD LAB BLOOD ORDERABLES Final Resul t [facility] [address] [place] [address], [place] [phone] * (ABNORMAL) Comprehensive metabolic panel (02/24/2025 6:34 AM EDT) Sodium 142 133 - 145 mmol/L LAB CHEMISTRY METHOD 02/24/2025 12:24 PM EDT [facility] Potassium 4.1 [...] METHOD 02/24/2025 12:24 PM [facility] eGFR 53(L) >=60 mL/min/1. 73m2 LAB CHEMISTRY METHOD 02/24/2025 12:24 PM [facility] Comment:Calculation based on the Chronic Kidney Disease Epidemiology Collaboration (CKD-EPI) equation refit without adjustment for race. BUN/Creatinine Ratio 29.4 LAB CHEMISTRY METHOD 02/24/2025 12:24 PM [facility] Calcium 10.5 8.5 - 10.5 mg/dL LAB CHEMISTRY METHOD 02/24/2025 12:24 PM EDT [facility] AST (SGOT) 31 10 - 42 unit/L LAB CHEMISTRY METHOD 02/24/2025 12:24 PM EDT [facility] ALT (SGPT) 36 10 - 60 unit/L LAB CHEMISTRY METHOD 02/24/2025 12:24 PM EDT [facility] Alkaline Phosphatase 82 42 - 121 unit/L LAB CHEMISTRY METHOD 02/24/2025 12:24 PM EDT [facility] Total Protein 6.8 6.0 - 8.0 g/dL LAB CHEMISTRY [facility] Albumin 3.1(L) 3.2 - 5.0 g/dL LAB CHEMISTRY METHOD 02/24/2025 12:24 PM EDT [facility] Total Bilirubin 0.4 0.0 - 1.4 mg/dL LAB CHEMISTRY METHOD 02/24/2025 12:24 PM EDT [facility] Blood Venous blood specimen / Unknown Venipuncture / Unknown 02/24/2025 6:34 AM EDT 02/24/2025 10:44 AM EDT us Venus Mayberry MD LAB BLOOD ORDERABLES Final Resul t [facility] [address] [place] [address], * (ABNORMAL) Complete blood count (02/24/2025 6:34 AM EDT) WBC 6.0 4.8 - 10.8 K/mcL LAB HEMETOLOGY METHOD 02/24/2025 1:12 PM EDT [facility] RBC 4.80 3.80 - 4.80 M/mcL LAB HEMETOLOGY METHOD 02/24/2025 1:12 PM [facility] Hemoglobin 14.3 11.5 - 16.0 g/dL LAB HEMETOLOGY METHOD 02/24/2025 1:12 PM [facility] Hematocrit 45.6 35.0 - 47.0 % LAB HEMETOLOGY METHOD 02/24/2025 1:12 PM [facility] MCV 94.2 79.0 - 98.0 FL LAB HEMETOLOGY METHOD 02/24/2025 1:12 PM [facility] MCH 29.5 27.0 - 32.0 pcg LAB HEMETOLOGY METHOD 02/24/2025 1:12 PM [facility] MCHC 31.4(L) 32.0 - 37.0 g/dL LAB HEMETOLOGY METHOD 02/24/2025 1:12 PM [facility] RDW 14.7 11.0 - 15.0 % LAB HEMETOLOGY METHOD 02/24/2025 1:12 PM [facility] Platelets 154 130 - 400 K/mcL LAB HEMETOLOGY METHOD 02/24/2025 1:12 PM [facility] MPV 11.7(H) 7.0 - 11.0 FL LAB HEMETOLOGY METHOD 02/24/2025 1:12 PM [facility] NRBC 0.0 <1.0 % LAB HEMETOLOGY METHOD 02/24/2025 1:12 PM [facility] NRBC Absolute 0.00 <0.10 K/mcL LAB HEMETOLOGY METHOD 02/24/2025 1:12 PM [facility] Blood Venous blood specimen / Unknown Venipuncture / Unknown 02/24/2025 6:34 AM EDT 02/24/2025 10:44 AM EDT Venus Mayberry MD LAB BLOOD ORDERABLES Final [facility]ul t [facility] [address] [place] [address], documented in this encounter Visit Diagnoses Diagnosis Essential (primary) hypertension Unspecified essential hypertension Type 2 diabetes mellitus without complications (CMS/HCC V24, CMS/HCC V28) documented in this encounter Care Teams Computator Relationship Specialty Start Date End Date Tony Arreola MD [address] [place] [address], [phone] PCP - General Family Medicine 12/14/24 documented as of this encounter
--- OUTSIDE RECORDS SUMMARY | 2025-10-07 15:00 | XMS_ITS | Encounter Summary ---
Author Organization [employer] Address [address] [facility] 7t [place] [address] Care Team Providers Care Pipeline Dispatch Operator Name Role Phone Myah Singh MD Primary Care Provider [phone] Reason for Visit * Reason Comments Med Refill Encounter Details Date Type Department Care Team (Late st Contact Info) Description 10/22/2024 Refill [facility] [address] [place], [place] [phone] Myah Singh MD [address] [place], [place] [phone] Allergic rhinitis, unspecified seasonality, unspecified trigger Social [...] documented as of this encounter Care Teams Pipeline Dispatch Operator Relationship Specialty Start Date End Date Myah Singh MD [address] [place] [address] PCP - General Family Medicine 11/08/12 [facility] 12/31/24 07/29/25 documented as of this encounter
--- OUTSIDE RECORDS SUMMARY | 2025-10-07 15:00 | XMS_ITS | Encounter Summary ---
Author Organization [employer] Address [address] [facility] 7t [place] [address] Care Team Providers Care Campaign Advisor Name Role Phone Myah Singh MD Primary Care Provider [phone] Reason for Visit * Reason Comments Med Refill Encounter Details Date Type Department Care Team (Late st Contact Info) Description 05/22/2024 Refill [facility] & PEDS [address] [place], [place] [phone] Myah Singh MD [address] [place], [place] [phone] Social History Tobacco Use Types Packs/Day Years [...] documented as of this encounter Care Teams Campaign Advisor Relationship Specialty Start Date End Date Myah Singh MD [address] [place] [address] PCP - General Family Medicine 11/08/12 [facility] 12/31/24 07/29/25 documented as of this encounter
== END 2025-10-07 15:40 | disposition home or self-care (01) ==
PROVIDERS: Visit Provider Orthopaedic Surgery
DX: S52.501A Unspecified fracture of the lower end of right radius, initial encounter for closed fracture (principal); R20.0 Anesthesia of skin; E11.9 Type 2 diabetes mellitus without complications; F03.90 Unspecified dementia, unspecified severity, without behavioral disturbance, psychotic disturbance, mood disturbance, and anxiety; R29.6 Repeated falls
CPT/HCPCS: 99024

== ENCOUNTER → 2025-10-07 13:20 | Outpatient (BNV) | payer OTHER, SELFPAY | PROVIDERS: Visit Provider Radiology Diagnostic Ultrasound | DX: S52.571D Other intraarticular fracture of lower end of right radius, subsequent encounter for closed fracture with routine healing (principal) | CPT/HCPCS: 73110 ==

== ENCOUNTER 2025-10-07 13:32 | Outpatient (REF) | payer OTHER, SELFPAY ==
--- NOTE | ~2025-10-07 | XR_ITS ---
EXAMINATION: XR WRIST, RIGHT CLINICAL INFORMATION: M25.531 - Pain in right wrist COMPARISON: X-ray 09/09/2025 TECHNIQUE: PA, lateral, and oblique views of the right wrist. FINDINGS: Bone mineralization is decreased. Comminuted intra-articular mildly displaced distal radial fracture is redemonstrated, stable in alignment. Decreased conspicuity of the fracture planes, callus formation is seen. No new acute fractures. XR/XR wrist RT min 3V IMPRESSION: Healing changes in the comminuted intra-articular distal radial fracture. Electronically signed by: Oliver Mcdonnell MD 10/08/2025 08:46 AM MABLE
--- OUTSIDE RECORDS SUMMARY | 2025-10-09 16:50 | XMS_ITS | Encounter Summary ---
Author Organization [employer] Address [address] [place] [address] Care Team Providers Care Tumble Tailstock Turret Lathe Operator Name Role Phone Tony Arreola MD Primary Care Provider [phone] Encounter Details Date Type Department Care Team (Late st Contact Info) Description 12/28/2024 Lab Requisition [facility] - Main Lab [address] [facility] [place] [address] Tony Arreola MD [address] [facility] [address] [place], [phone] Weakness; Unspecified dementia, unspecified severity, without [...] V28) documented in this encounter Care Teams Tumble Tailstock Turret Lathe Operator Relationship Specialty Start Date End Date Tony Arreola MD [address] [facility] [address] [place], [address] PCP - General Family Medicine 12/14/24 documented as of this encounter
--- OUTSIDE RECORDS SUMMARY | 2025-10-09 16:50 | XMS_ITS | Data Portability ---
Author Organization [employer] [facility] Address [address] [place] [address] Care Team Providers Care Airport Refueling Handler Name Role Phone [facility] Referring [...] recorded. Lab cmp, whole blood + [facility], [address] [place] [address], [place], [phone] 10:38:51 culture, urine GILA BEND [facility] (Centralized Electronic Ordering - All Locations), Patient Can Go To The Location Of Their Choice, [address] 05:01:48 Referral None recorded. Procedures None recorded. [...] 4625 Kenia Hernandez MD Main - instED [address] [place] [phone] 09/10/2022 16:51:17 09/12/2022 13:08:31 Right upper quadrant pain [id number] R10.11 Health Concerns Section Related Observation LastModified by Organization Detai ls LastModified Time None Recorded Concern Status LastModified by Organization Details LastModified Time None Recorded Advance Directives Directive None Recorded Payers Insurance Date Sequence Insurance Name Policy Number Policy Gonzalez Covered Member ID Gonzalez Member ID Guarantor Name 01/21/2024 1 [facility] - DOS PRIOR TO 2023 - DUAL ELIGIBLE (MEDICARE REPLACEMENT/ADV ANTAGE - HMO) Sienna Mendez [id number] Sienna Mendez 01/21/2024 1 [facility] - DOS ON OR AFTER 2023 - DUAL ELIGIBLE - LONGTERM OPTIONS AND ONE CARE (MEDICARE REPLACEMENT/ADV ANTAGE - HMO) Sienna Mendez [id number] Sienna Mendez Notes Date Note Type Note [...] and assists coordinate all visitsher number is [phone], member uses this number as her Primary contact. Member is an 87 yo female with old PR, osteoarthritis, thrombocytopenia and HTN hrt & CKD and Modereate Dementia. Pleasantly confused. Supportive family. This RNCP recommends Female Providers if possible. Can the results be faxed to [facility] at [phone] Singh if possible? ...................... ...................... ...................... ...................... ...................... ...................... ......... CRC Nursing Assessment: Comments: CRC RN did not require any additional information to process this visit. Spoke with daughter who agrees to visit for 09/10> would like to be seen early in the day if possible [facility] HPI:chronic kidney disease, dementia, HTN, CAD with acute on chronic progressive behavior changes. eating normally, voiding normally, drinking normally, no vomiting, no diarrhea, no fevers, cough. No one else has been sick at home. No changes the family can identify in terms of schedule. No reports of worse unsteadiness on her feet or falls.Granddaughter reports that PMH includes cirrhosis Kenia Tilhou, MD [address] [facility],[address], [place], [address], [facility] 09/10/2022 17:40:46 OBGyn Episode No OBEpisode recorded.
--- OUTSIDE RECORDS SUMMARY | 2025-10-09 16:50 | XMS_ITS | Clinical Summary ---
Author Organization [facility] Address [address] [address] Care Team Providers Care Supervisor Frame Assembly Name Role Phone Unavailable Primary Care Provider [...] -Pt has an upcoming appt with her technical services assistant History of cerebrovascular accident 01/07/2023 Overview (01/23/2023): Last Assessment & Plan: -around 2009 previous medical record -TIA in 2015 -Continue working on secondary prevention / risk factor management History of non-ST segment elevation myocardial i nfarction 01/07/2023 Overview (01/23/2023): Last Assessment & Plan: -Oct 2015 -[place] with [facility], upcoming appt -Continue risk factor mangement [...] Risk: CKD, age, NSTEMI, Hx CVA/TIA, DM2 -Hammer Heater: Previously [facility], pt has a new appt on 01/23/23 [...] [facility] - Continue mirabegron as prescribed Unspecified [...] to 49 Years) Discontinued 02/23/2015, 10/04/2001 Insurance [facility] ([id number]) [place] [id number] [facility] ([id number])
--- OUTSIDE RECORDS SUMMARY | 2025-10-09 16:50 | XMS_ITS | Patient Health Record ---
Author Organization [facility] Address [address] [place] [address] Care Team Providers Care Certified Registered Nurse Anesthetist Name Role Phone Samantha GARCIA, Myah Primary Care Provider Cali Bailey [phone] Allergies Allergen (clinical drug ingredient) Drug/Non Drug [...] Notes Problem Gastroesophageal reflux disease without esophagitis (047896552) Gastroesophageal reflux disease without esophagitis (K21.9) Active confirmed Problem Elevated liver enzymes level (400754274) Elevated liver enzymes (R74.8) Active confirmed Problem Constipation (69149417) Constipation, unspecified constipation type (K59.00) Active confirmed Plan Of Treatment Pending Test Test Name Order Date LIVER PROFILE 04/06/2016 Insurance Providers Payer Name Payer Address Payer Phone Subscriber Number Group Number Insured Name Patient Relationship to Insured Coverage Start Date Coverage End Date [facility] [address] [place] [address] [id number] ZITA PAPPAS Self - patient is the insured MEDICARE OF [place] [address] [place] [address] [phone] [id number] ZITA PAPPAS Self - patient is the insured Medical (General) History Medical History History ICD Code GERD--UPPER ENDOSCOPY & COLO NOSCOPY IN 2007--Large HH with tiny area of Polanco's esophagus, no dysplasia; normal colonoscopy DEPRESSION HYPERTENSION HISTORY OF STROKE Kidney stones Denies [place],DM,lung disease,renal disease minor stroke and heart attack [...]
--- OUTSIDE RECORDS SUMMARY | 2025-10-09 16:50 | XMS_ITS | Encounter Summary ---
Author Organization [facility] Address [address] [place] [address] Care Team Providers Care Product Manager Name Role Phone Tony Arreola MD Primary Care Provider [phone] Encounter Details Date Type Department Care Team (Late st Contact Info) Description 12/14/2024 Lab Requisition [facility] - Main Lab [address] [place] [address] Tony Arreola MD [address] [facility] [address] [place], [address] Weakness; Unspecified dementia, unspecified severity, without [...] mmol/L LAB CHEMISTRY METHOD 12/16/2024 1:55 PM [facility] Potassium 4.1 3.5 - 5.5 mmol/L LAB CHEMISTRY METHOD 12/16/2024 1:55 PM [facility] Chloride 113(H) 96 - 110 mmol/L LAB CHEMISTRY METHOD 12/16/2024 1:55 PM [facility] CO2 28 21 - 32 mmol/L LAB CHEMISTRY METHOD 12/16/2024 1:55 PM [facility] Anion Gap 5 3 - 11 LAB CHEMISTRY METHOD 12/16/2024 1:55 PM [facility] Glucose 88 70 - 100 mg/dL LAB CHEMISTRY METHOD 12/16/2024 1:55 PM [facility] BUN 25 5 - 25 mg/dL LAB CHEMISTRY METHOD 12/16/2024 1:55 PM [facility] Creatinine 1.26(H) 0.50 - 1.10 mg/dL LAB CHEMISTRY METHOD 12/16/2024 1:55 PM [facility] eGFR 41(L) >=60 mL/min/1. 73m2 LAB CHEMISTRY METHOD 12/16/2024 1:55 PM [facility] Comment:Calculation based on the Chronic Kidney Disease Epidemiology Collaboration (CKD-EPI) equation refit without adjustment for race. BUN/Creatinine Ratio 19.8 LAB CHEMISTRY METHOD 12/16/2024 1:55 PM [facility] Calcium 9.3 8.5 - 10.5 mg/dL LAB CHEMISTRY METHOD 12/16/2024 1:55 PM [facility] Blood Venous blood specimen / Unknown Venipuncture / Unknown 12/16/2024 7:20 AM EST 12/16/2024 11:32 AM EST us Tony Arreola MD LAB BLOOD ORDERABLES Final Resul t [facility] [address] [place] [address], [place] [phone] * (ABNORMAL) Complete blood count (12/16/2024 7:20 AM EST) [facility] WBC 5.4 4.8 - 10.8 K/mcL LAB HEMETOLOGY METHOD 12/16/2024 12:51 PM [facility] RBC 4.60 3.80 - 4.80 M/mcL LAB HEMETOLOGY METHOD 12/16/2024 12:51 PM [facility] Hemoglobin 13.4 11.5 - 16.0 g/dL LAB HEMETOLOGY METHOD 12/16/2024 12:51 PM [facility] Hematocrit 43.8 35.0 - 47.0 % LAB HEMETOLOGY METHOD 12/16/2024 12:51 PM [facility] MCV 95.8 79.0 - 98.0 FL LAB HEMETOLOGY METHOD 12/16/2024 12:51 PM [facility] MCH 29.3 27.0 - 32.0 pcg LAB HEMETOLOGY METHOD 12/16/2024 12:51 PM [facility] MCHC 30.6(L) 32.0 - 37.0 g/dL LAB HEMETOLOGY METHOD 12/16/2024 12:51 PM [facility] RDW 14.9 11.0 - 15.0 % LAB HEMETOLOGY METHOD 12/16/2024 12:51 PM [facility] Platelets 135 130 - 400 K/mcL LAB HEMETOLOGY METHOD 12/16/2024 12:51 PM [facility] MPV 12.3(H) 7.0 - 11.0 FL LAB HEMETOLOGY METHOD 12/16/2024 12:51 PM [facility] NRBC 0.0 <1.0 % LAB HEMETOLOGY METHOD 12/16/2024 12:51 PM [facility] LAB NRBC Absolute 0.00 <0.10 K/mcL LAB HEMETOLOGY METHOD 12/16/2024 12:51 PM EST [facility] Blood Venous blood specimen / Unknown Venipuncture / Unknown 12/16/2024 7:20 AM EST 12/16/2024 11:32 AM EST us Tony Arreola MD LAB BLOOD ORDERABLES Final Resul t [facility] ([facility]) [facility] [address] [place] [address], documented in this encounter Visit Diagnoses Diagnosis Weakness Other malaise and fatigue Unspecified dementia, unspecified severity, without behavioral disturbance, psychotic disturbance, mood disturbance, and anxiety (CMS/HCC V24, CMS/HCC V28) documented in this encounter Care Teams Product Manager Relationship Specialty Start Date End Date Tony Arreola MD [address] [place] [address] [address] [place], [phone] PCP - General Family Medicine 12/14/24 documented as of this encounter
--- OUTSIDE RECORDS SUMMARY | 2025-10-09 16:50 | XMS_ITS | Clinical Summary ---
Author Organization [address] [facility] Address [address] [place] [address] Phone Care Team Providers Care Magnetic Healer Name Role Phone Tony Arreola MD Primary Care Provider [phone] Social History Tobacco Use Types Packs/Day Years [...] t [facility] [address] [place] [address], * (ABNORMAL) Comprehensive metabolic panel (02/24/2025 6:34 [...] mg/dL LAB CHEMISTRY METHOD [facility] e[facility] 53(L) >=60 mL/min/1. [...] 6:34 AM EDT 02/24/2025 10:44 AM EDT Vensu Mayberry MD LAB BLOOD ORDERABLES Final Resul t [facility] [address] [place] [address], from Last 3 Months or Most Recently Relevant to Health Maintenance Insurance [facility] MEDICARE Member Subscriber Plan / Payer (Ef fective 2019-Present) Name:Sienna Mendez Relation to Subscriber:Self Name:Sienna Mendez Payer ID:[id number] Group ID:[id number] Type:Not on file Address: [address] [place] [id number] Care Teams Magnetic Healer Relationship Specialty Start Date End Date Tony Arerola MD [address] [place] [address] [address] [place], [phone] PCP - General Family Medicine 12/14/24
--- OUTSIDE RECORDS SUMMARY | 2025-10-09 16:50 | XMS_ITS | Clinical Summary ---
Author Organization [employer] Address [address] [place] [address] 7t [place] [address] Care Team Providers Care Welder Tack Name Role Phone Myah Singh MD Primary [...] EDT): -Oct 2015 -Previously following with [facility] Cardiology, upcoming appt -Continue risk factor mangement Assessment & Plan (01/07/2023 4:34 PM EST): -Oct 2015 -Previously following with [facility] Cardiology, upcoming appt -Continue risk factor mangement [...] Mild aortic valve regurgitation. -Seen by senior network architect, Dr. Garcia in [facility], on 07/27/23, since she is not a [...] Mild aortic valve regurgitation. -Seen by senior network architect, Dr. Garcia in [facility], on 07/27/23, since she is not a [...] Mild aortic valve regurgitation. -Seen by senior network architect, Dr. Garcia in [facility], on 07/27/23, since she is not a [...] has an upcoming appt with her senior network architect Assessment & Plan (01/07/2023 5:17 PM EST): - Most recent TTE 10/14/22: There is mild calcification of the aortic valve. There is moderate aortic valve stenosis. The peak aortic gradient is 33 mmHg.The mean gradient is 16 mmHg. There is mild aortic valve regurgitation. -Pt has loud murmur consistent with aortic stenosis -NSTEMI in 2015 -Pt has an upcoming appt with her senior network architect Anemia 01/07/2023 Assessment & Plan (01/07/2023 5:24 PM EST): - anemia of chronic disease (CKD, cirrhosis) - continue ferrous sulfate - check lab Diabetes mellitus, type 2 12/28/2022 Overview (04/07/2025): Frequent utis from jardiance Assessment & Plan (05/06/2025 11:29 AM EDT): Blood sugars are in range (90-110)without jardance, pt grandaughter and PRODUCTION METAL SPRAYER deny any swelling, sob, orthopnea edema or [...] (01/17/2025 5:56 AM EST): -Following with [facility] Sleep medicine clinic, last seen in January [...] monitor periodically Osteopenia 01/07/2013 Anxiety 12/10/2012 Dementia ([facility]/HCC) 12/10/2012 Assessment & Plan (01/17/2025 5:58 AM [...] Risk: CKD, age, NSTEMI, Hx CVA/TIA, DM2 -Shop Tailor Apprentice: Previously [facility] pt has a new appt on 01/23/23 [...] Risk: CKD, age, NSTEMI, Hx CVA/TIA, DM2 -Shop Tailor Apprentice: Previously [facility] pt has a new appt on 01/23/23 [...] Risk: CKD, age, NSTEMI, Hx CVA/TIA, DM2 -Shop Tailor Apprentice: [facility] appt on 01/23/23 (Grade [...] Risk: CKD, age, NSTEMI, Hx CVA/TIA, DM2 -Shop Tailor Apprentice: Previously [facility] pt has a new appt on 01/23/23 [...] Risk: CKD, age, NSTEMI, Hx CVA/TIA, DM2 -Shop Tailor Apprentice: Previously [facility], pt has a new appt on 01/23/23 [...] Assessment & Plan (01/17/2025 6:08 AM EST): -Building Drafter: Dr. Martinez -Avoid nephrotoxic drugs and use renal dosing. -Recheck renal function today -On Jardiance, at low-dose, 10mg daily. Caution with UTI Assessment & Plan (02/04/2024 1:13 PM EDT): -Building Drafter: Dr. Martinez -Baseline: 09/26/22 BUN 29; SCr 1.2, eGFR 43, AST 12, ALT 19, AP 91 -Avoid nephrotoxic drugs and use renal dosing. -Recheck renal function today -On Jardiance, at low-dose, 10mg daily. Assessment & Plan (09/10/2023 4:32 PM EDT): -Building Drafter: Dr. Martinez, last seen in 2016 or 2017. Per caregiver, pt was discharged due to stability -Baseline: 09/26/22 BUN 29; SCr 1.2, eGFR 43, AST 12, ALT 19, AP 91 -Avoid nephrotoxic drugs and use renal dosing. -Recheck renal function today -On Jardiance, at low-dose, 10mg daily. Assessment & Plan (05/08/2023 11:04 AM EDT): -Building Drafter: Dr. Martinez, last seen in 2016 or 2017. Per caregiver, pt was discharged due to stability -Baseline: 09/26/22 BUN 29; SCr 1.2, eGFR 43, AST 12, ALT 19, AP 91 -Avoid nephrotoxic drugs and use renal dosing. -Recheck renal function today -On Jardiance, at low-dose, 10mg daily. Assessment & Plan (01/07/2023 4:54 PM EST): -Building Drafter: Dr. Martinez, last seen in 2017 or [...] Type Department Care Team Description 08/09/2025 Refill [facility] [address] [place] [address] Myah Singh MD 08/07/2025 Orders Only GENERIC EXTERNAL DATA DEPARTMENT Provider, Generic External Data 08/04/2025 Refill [facility] [address] [place] [address] Myah Singh MD Type 2 diabetes mellitus with stage 3 chronic kidney disease, without long-term current use of insulin, unspecified whether stage 3a or 3b CKD ([facility]) 07/21/2025 Refill [facility] [address] [place], [place] [phone] Liliana Sears MD 07/21/2025 Refill [facility] [address] [place], [place] [phone] Myah Singh MD Allergic rhinitis, unspecified seasonality, unspecified trigger 07/10/2025 Telephone [facility] [address] [place], [place] [phone] Myah Singh MD Durable Medical Equipment (DME: [...] Whole Blood 90 60 - 115 mg/dL [facility] Comment:METER #: [id number] 08/07/2025 12:2 0 PM EDT 08/07/2025 4:35 PM EDT us Generic External Data Provider LAB BLOOD ORDERAB LES Final Result [facility] [address] [place] [phone] * SARS-CoV-2 RNA, Influenza A/B, and RSV RNA, Ql NAAT (08/07/2025 8:48 AM EDT) Pathologist [facility] Influenza A PCR NEGATIVE Negative [facility] Influenza B PCR NEGATIVE Negative [facility] Resp Syncy Virus RNA Qual PCR NEGATIVE Negative [facility] SARS COV2 PCR NEGATIVE Negative [facility] Comment:All test results mus t [...] use by authorized laboratories.Testing performed on the [employer] GeneXpert utilizingreal-time RT-PCR.All SARS CoV2 and positive influenza A/B results arereported to [facility]. 08/07/2025 8:48 AM EDT 08/07/2025 8:51 AM EDT Generic External Data Provider LAB MICROBIOLOGY - GENERAL ORDERABLES Final Result [facility] [address] [place] [address] [phone] * Lipid Panel with Reflex to Direct LDL (01/22/2024 12:20 PM EST) Triglycerides 130 <150 mg/dL [facility] Comment:Desirable Triglyceri de: less than 150 mg/dLBorderline High Triglyceride 150-199 mg/dLHigh Triglyceride: 200-499 mg/dLVery High Triglyceride: greater than or equal to 5OO mg/dL Cholesterol 109 <200 mg/dL [facility] Comment:Desirable Cholestero l: less than 200 mg/dLBorderline High Cholesterol: 200-239 mg/dLHigh Cholesterol: greater than 239 mg/dL LDL Cholesterol Calculated 41 <100 mg/dL [facility] Comment:Desirable LDL: less than 100 mg/dLNear Optimal/Above Optimal LDL: 110- 129 mg/dLBorderline High LDL: 130-159 mg/dLHigh LDL: 160-189 mg/dLVery High LDL: greater than or equal to 190 mg/dL HDL Cholesterol 42 >40 mg/dL [facility] Comment:Desirable HDL: great er than 40 mg/dL Note: This HDL assay may give artificially low results in patients with liver disease. Blood 01/22/2024 12:2 0 PM EST 01/22/2024 1:11 PM EST Myah Singh MD LAB BLOOD ORDERABLES Final Resul t [facility] [address] [place] [address] [phone] * (ABNORMAL) POCT glycosylated hemoglobin (Hgb A1c) (09/11/2023 10:29 AM EDT) Hemoglobin A1C 6.2(A) 4.0 - 6.0 % QC Media Lot # [id number] Lot# Expiration Date Blood Capillary blood specimen / Unknown 09/11/2023 10:29 AM EDT Myah Singh MD POINT OF CARE TEST ENTER/EDIT OR DERABLES Final Result from Last 3 Months or Most Recently Relevant to Health Maintenance Insurance [facility] [employer] OPTIONS (O D-SNP) [place] [id number] Care Teams Welder Tack Relationship Specialty Start Date End Date Myah Singh MD [address] [place] [address] [place] [address] PCP - General Family Medicine 11/08/12
--- OUTSIDE RECORDS SUMMARY | 2025-10-09 16:50 | XMS_ITS | Encounter Summary ---
Author Organization [facility] Address [address] [facility] [address] [place] [address] Phone Care Team Providers Care Recycling Operator Name Role Phone Unavailable Primary Care Provider Unavailabl e Reason for Visit * Reason Comments Med Refill Encounter Details Date Type Department Care Team ([facility] st Contact Info) Description 12/10/2021 Refill [facility] [address] [facility] [address] [place] [phone] Chino Martinez MD [address] [facility] [address] [place] [phone] Social History Tobacco Use Types Packs/Day Years [...]
--- OUTSIDE RECORDS SUMMARY | 2025-10-09 16:50 | XMS_ITS | Encounter Summary ---
Author Organization [employer] Address [address] [facility] 7t [place] [address] Care Team Providers Care Bundle Shaker Name Role Phone Myah Singh MD Primary Care Provider Encounter Details Date Type Department Care Team (Late st Contact Info) Description 01/30/2023 Telephone [facility] MEDICINE [address] [place], [place] [phone] Myah Singh MD [address] [place], [place] [phone] Social History Tobacco Use Types Packs/Day Years [...] on filedocumented in this encounter Care Teams Bundle Shaker Relationship Specialty Start Date End Date Myah Singh MD [address] [place], [place] [phone] PCP - General Family Medicine 11/08/12 [facility] 12/31/24 07/29/25 documented as of this encounter
--- OUTSIDE RECORDS SUMMARY | 2025-10-09 16:50 | XMS_ITS | Encounter Summary ---
Author Organization [email or web address] Address [address] [place] [address] Care Team Providers Care Rod Puller Name Role Phone Tony Arreola MD Primary Care Provider [phone] Encounter Details Date Type Department Care Team (Late st Contact Info) Description 12/21/2024 Lab Requisition [facility] - Main Lab [address] [place] [address] Tony Arreola MD [address] [place] [address] [address] [place], [phone] Weakness; Unspecified dementia, unspecified severity, without [...] mmol/L LAB CHEMISTRY METHOD 12/23/2024 12:53 PM [facility] Potassium 4.2 3.5 - 5.5 mmol/L LAB CHEMISTRY METHOD 12/23/2024 12:53 PM [facility] Chloride 111(H) 96 - 110 mmol/L LAB CHEMISTRY METHOD 12/23/2024 12:53 PM [facility] CO2 28 21 - 32 mmol/L LAB CHEMISTRY METHOD 12/23/2024 12:53 PM [facility] Anion Gap 5 3 - 11 LAB CHEMISTRY METHOD 12/23/2024 12:53 PM [facility] Glucose 84 70 - 100 mg/dL LAB CHEMISTRY METHOD 12/23/2024 12:53 PM [facility] BUN 22 5 - 25 mg/dL LAB CHEMISTRY METHOD 12/23/2024 12:53 PM [facility] Creatinine 1.25(H) 0.50 - 1.10 mg/dL LAB CHEMISTRY METHOD 12/23/2024 12:53 PM [facility] eGFR 42(L) >=60 mL/min/1. 73m2 LAB CHEMISTRY METHOD 12/23/2024 12:53 PM [facility] Comment:Calculation based on the Chronic Kidney Disease Epidemiology Collaboration (CKD-EPI) equation refit without adjustment for race. BUN/Creatinine Ratio 17.6 LAB CHEMISTRY METHOD 12/23/2024 12:53 PM [facility] Calcium 9.3 8.5 - 10.5 mg/dL LAB CHEMISTRY METHOD 12/23/2024 12:53 PM [facility] Blood Venous blood specimen / Unknown Venipuncture / Unknown 12/23/2024 6:50 AM EST 12/23/2024 10:55 AM EST us Tony Arreola MD LAB BLOOD ORDERABLES Final Resul t [facility] [address] [place] [address], * (ABNORMAL) Complete blood count (12/23/2024 6:50 AM EST) [facility] WBC 6.0 4.8 - 10.8 K/mcL LAB HEMETOLOGY METHOD 12/23/2024 12:49 PM [facility] RBC 4.70 3.80 - 4.80 M/mcL LAB HEMETOLOGY METHOD 12/23/2024 12:49 PM [facility] Hemoglobin 13.4 11.5 - 16.0 g/dL LAB HEMETOLOGY METHOD 12/23/2024 12:49 PM [facility] Hematocrit 43.6 35.0 - 47.0 % LAB HEMETOLOGY METHOD 12/23/2024 12:49 PM [facility] MCV 93.6 79.0 - 98.0 FL LAB HEMETOLOGY METHOD 12/23/2024 12:49 PM [facility] MCH 28.8 27.0 - 32.0 pcg LAB HEMETOLOGY METHOD 12/23/2024 12:49 PM [facility] MCHC 30.7(L) 32.0 - 37.0 g/dL LAB HEMETOLOGY METHOD 12/23/2024 12:49 PM [facility] RDW 14.8 11.0 - 15.0 % LAB HEMETOLOGY METHOD 12/23/2024 12:49 PM [facility] Platelets 142 130 - 400 K/mcL LAB HEMETOLOGY METHOD 12/23/2024 12:49 PM [facility] MPV 12.0(H) 7.0 - 11.0 FL LAB HEMETOLOGY METHOD 12/23/2024 12:49 PM [facility] NRBC 0.0 <1.0 % LAB HEMETOLOGY METHOD 12/23/2024 12:49 PM [facility] NRBC Absolute 0.00 <0.10 K/mcL LAB HEMETOLOGY METHOD 12/23/2024 12:49 PM EST [facility] Blood Venous blood specimen / Unknown Venipuncture / Unknown 12/23/2024 6:50 AM EST 12/23/2024 10:55 AM EST Tony Arreola MD LAB BLOOD ORDERABLES Final Resul t [facility] [address] [place] [address], documented in this encounter Visit Diagnoses Diagnosis Weakness Other malaise and fatigue Unspecified dementia, unspecified severity, without behavioral disturbance, psychotic disturbance, mood disturbance, and anxiety (CMS/HCC V24, CMS/HCC V28) documented in this encounter Care Teams Rod Puller Relationship Specialty Start Date End Date Tony Arreola MD [address] [place] [address], [phone] PCP - General Family Medicine 12/14/24 documented as of this encounter
--- OUTSIDE RECORDS SUMMARY | 2025-10-09 16:51 | XMS_ITS | Encounter Summary ---
Author Organization [employer] Address [address] [place] [address] Care Team Providers Care Colleter Name Role Phone Tony Arreola MD Primary Care Provider [phone] Encounter Details Date Type Department Care Team (Late st Contact Info) Description 12/06/2024 Lab Requisition [facility] - Main Lab [address] [place] [address] Tony Arreola MD [address] [facility] [address] [place], [phone] Weakness; Unspecified dementia, unspecified severity, without [...] MD LAB BLOOD ORDERABLES Final Resul t [facility] [address] [place] [address], [place] [phone] * (ABNORMAL) Complete blood count (12/09/2024 7:13 AM EST) [facility] Signature WBC 6.9 4.8 - 10.8 [...] LAB HEMETOLOGY METHOD 12/09/2024 12:37 PM EST [facility] Blood Venous blood specimen / Unknown Venipuncture / Unknown 12/09/2024 7:13 AM EST 12/09/2024 11:17 AM EST us Tony Arreola MD LAB BLOOD ORDERABLES Final Resul t [facility] [address] [place] [address], documented in this encounter Visit Diagnoses Diagnosis Weakness Other malaise and fatigue Unspecified dementia, unspecified severity, without behavioral disturbance, psychotic disturbance, mood disturbance, and anxiety (CMS/HCC V24, CMS/HCC V28) documented in this encounter Care Teams Colleter Relationship Specialty Start Date End Date Tony Arreola MD [address] [place] [address], [phone] PCP - General Family Medicine 12/14/24 documented as of this encounter
--- OUTSIDE RECORDS SUMMARY | 2025-10-09 16:51 | XMS_ITS | Encounter Summary ---
Author Organization [email or web address] Address [address] [facility] 7t [place] [address] Care Team Providers Care Hall Supervisor Name Role Phone Myah Singh MD Primary Care Provider [phone] Reason for Visit * Reason Comments Med Refill Encounter Details Date Type Department Care Team (Late st Contact Info) Description 11/29/2023 Refill [facility] PEDS [address] [place], [place] [phone] Myah Singh MD [address] [place], [place] [phone] Vitamin D deficiency Social History Tobacco Use [...] documented as of this encounter Care Teams Hall Supervisor Relationship Specialty Start Date End Date Myah Singh MD [address] [place] [phone] PCP - General Family Medicine 11/08/12 [facility] 12/31/24 07/29/25 documented as of this encounter
--- OUTSIDE RECORDS SUMMARY | 2025-10-09 16:51 | XMS_ITS | Encounter Summary ---
Author Organization [employer] Address [address] [facility] 7t [place] [address] Care Team Providers Care Project Management Consultant Name Role Phone Myah Singh MD Primary Care Provider [phone] Reason for Visit * Reason Comments Med Refill Encounter Details Date Type Department Care Team (Late st Contact Info) Description 10/22/2024 Refill [facility]INE [address] [place], [place] [phone] Myah Signh MD [address] [place], [place] [phone] Allergic rhinitis, unspecified seasonality, unspecified trigger Social [...] documented as of this encounter Care Teams Project Management Consultant Relationship Specialty Start Date End Date Myah Singh MD [address] [place] [address] PCP - General Family Medicine 11/08/12 [facility] 12/31/24 07/29/25 documented as of this encounter
--- OUTSIDE RECORDS SUMMARY | 2025-10-09 16:51 | XMS_ITS | Encounter Summary ---
Author Organization [employer] Address [address] [facility] 7t [place] [address] Care Team Providers Care Cell Tuber Hand Name Role Phone Myah Singh MD Primary Care Provider [phone] Reason for Visit * Reason Comments Med Refill Encounter Details Date Type Department Care Team (Late st Contact Info) Description 05/22/2024 Refill [facility] PEDS [address] [place], [place] [phone] Myah Singh MD [address] [place], [place] [phone] Social History Tobacco Use Types Packs/Day Years [...] documented as of this encounter Care Teams Cell Tuber Hand Relationship Specialty Start Date End Date Myah Singh MD [address] [place] [address] PCP - General Family Medicine 11/08/12 [facility] 12/31/24 07/29/25 documented as of this encounter
--- OUTSIDE RECORDS SUMMARY | 2025-10-09 16:51 | XMS_ITS | Encounter Summary ---
Author Organization [employer] Address [address] [place] [address] Care Team Providers Care Fishing Reel Assembler Name Role Phone Tony Arreola MD Primary Care Provider [phone] Encounter Details Date Type Department Care Team (Late st Contact Info) Description 02/24/2025 Lab Requisition [facility] - Main Lab [address] [facility] [place] [address] Venus Mayberry MD [address] [place], [place] [phone] Essential (primary) hypertension; Type 2 diabetes mellitus [...] * Vitamin B12 (02/24/2025 6:34 AM EDT) [facility] Vitamin B-12 324 250 - 900 pcg/mL LAB CHEMISTRY METHOD 02/24/2025 12:24 PM EDT [facility] Blood Venous blood specimen / Unknown Venipuncture / Unknown 02/24/2025 6:34 AM EDT 02/24/2025 10:44 AM EDT us Venus Mayberry MD LAB BLOOD ORDERABLES Final Resul t Performing Organization Address City/[facility]/ZIP Co de Phone Number [facility] [address] [place] [address], [place] [phone] * Folate (02/24/2025 6:34 AM EDT) [facility] Folate 11.3 2.8 - 17.0 ng/ml LAB CHEMISTRY METHOD 02/24/2025 12:24 PM EDT [facility] Blood Venous blood specimen / Unknown Venipuncture / Unknown 02/24/2025 6:34 AM EDT 02/24/2025 10:44 AM EDT us Venus Mayberry MD LAB BLOOD ORDERABLES Final Resul t Performing Organization Address City/[facility]/ZIP Co de Phone Number [facility] [address] [place] [address], [place] [phone] * (ABNORMAL) Vitamin D 25 hydroxy (02/24/2025 6:34 AM EDT) Pathologist [facility] Vit D, 25-Hydroxy 29.9(L) 30.0 - 80.0 ng/mL LAB CHEMISTRY METHOD 02/24/2025 1:12 PM EDT [facility] Blood Venous blood specimen / Unknown Venipuncture / Unknown 02/24/2025 6:34 AM EDT 02/24/2025 10:44 AM EDT us Venus Mayberry MD LAB BLOOD ORDERABLES Final Resul t Performing Organization Address [facility] Co de Phone Number [facility] [address] [place] [address], * Thyroid stimulating hormone (02/24/2025 6:34 AM EDT) [facility] TSH 1.44 0.40 - 4.00 mcIU/mL LAB CHEMISTRY METHOD 02/24/2025 1:13 PM EDT [facility] Blood Venous blood specimen / Unknown Venipuncture / Unknown 02/24/2025 6:34 AM EDT 02/24/2025 10:44 AM EDT us Venus Mayberry MD LAB BLOOD ORDERABLES Final Resul t Performing Organization Address [facility] de Phone Number [facility] [address] [place] [address], [place] [phone] * Hemoglobin A1c (02/24/2025 6:34 AM EDT) [facility] Hemoglobin A1C 5.9 <6.5 % LAB CHEMISTRY METHOD 02/24/2025 9:29 PM EDT [facility] Mean Bld Glu Estim. 123 mg/dL LAB CHEMISTRY METHOD 02/24/2025 9:29 PM EDT [facility] Blood Venous blood specimen / Unknown Venipuncture / Unknown 02/24/2025 6:34 AM EDT 02/24/2025 10:44 AM EDT us Venus Mayberry MD LAB BLOOD ORDERABLES Final Resul t [facility] [address] [place] [address], [place] [phone] * (ABNORMAL) Comprehensive metabolic panel (02/24/2025 6:34 AM EDT) Sodium 142 133 - 145 mmol/L LAB CHEMISTRY METHOD 02/24/2025 12:24 PM EDT [facility] Potassium 4.1 3.5 - 5.5 [...] LAB CHEMISTRY METHOD 02/24/2025 12:24 PM EDT [facility] AST (SGOT) 31 10 - 42 unit/L LAB CHEMISTRY METHOD 02/24/2025 12:24 PM EDT [facility] ALT (SGPT) 36 10 - 60 unit/L LAB CHEMISTRY METHOD 02/24/2025 12:24 PM EDT [facility] Alkaline Phosphatase 82 42 - 121 unit/L LAB CHEMISTRY METHOD 02/24/2025 12:24 PM EDT [facility] Total Protein 6.8 6.0 - 8.0 g/dL LAB CHE[facility]STRY [facility] Albumin 3.1(L) 3.2 - 5.0 g/dL LAB CHEMISTRY METHOD 02/24/2025 12:24 PM EDT [facility] Total Bilirubin 0.4 0.0 - 1.4 mg/dL LAB CHEMISTRY METHOD 02/24/2025 12:24 PM EDT [facility] Blood Venous blood specimen / Unknown Venipuncture / Unknown 02/24/2025 6:34 AM EDT 02/24/2025 10:44 AM EDT us Venus Mayberry MD LAB BLOOD ORDERABLES Final Resul t [facility] [address] [place] [address], * (ABNORMAL) Complete blood count (02/24/2025 6:34 AM EDT) WBC 6.0 4.8 - 10.8 K/mcL LAB HEMETOLOGY METHOD 02/24/2025 1:12 PM EDT [facility] RBC 4.80 3.80 - 4.80 [...] LAB BLOOD ORDERABLES Final Resul t [facility] [address] [place] [address], documented in this encounter Visit Diagnoses Diagnosis Essential (primary) hypertension Unspecified essential hypertension Type 2 diabetes mellitus without complications (CMS/HCC V24, CMS/HCC V28) documented in this encounter Care Teams Fishing Reel Assembler Relationship Specialty Start Date End Date Tony Arreola MD [address] [place] [address], [phone] PCP - General Family Medicine 12/14/24 documented as of this encounter
--- OUTSIDE RECORDS SUMMARY | 2025-10-09 16:51 | XMS_ITS | Data Portability ---
Author Organization [facility], Main Office Address [address] [facility] [place] [address] Care Team Providers Care Supervisor Modern Languages Name Role Phone [facility]) OTHER Assessment No assessment recorded. Plan [...] and Address Organization Details Recorded Time Asthma [id number] Active 2017 ANGELITA VANG [address], [address], [place], [address] , [facility] [employer] [facility] 8 15:12:32 Dementia 85268881 Active 2017 ANGELITA VANG [address], [address], [place], [address] , [facility] [employer] 8 15:12:53 Depressiv e disorder 94041893 Active 2017 ANGELITA VANG [address], [address], [place], [address] , [facility] [employer] 8 15:13:06 Coronary arteriosc lerosis 29376372 Active 2017 history of NSTEMI ANGELITA VANG [address], [address], [place], [address] , [facility] [employer] 8 15:13:24 Hyperlipi demia 13957956 Active 2017 ANGELITA VANG [address], [address], [place], [address] , [employer] [facility] 8 15:14:00 Essential hypertens ion 75349753 Active 2017 ANGELITA VANG [address], [address], [place], [address] , [facility] 8 15:14:57 History of cerebrova scular accident 826415218 Active 2017 right sided weakness ANGELITA VANG [address], [address], [place], [address] , [facility] 8 15:15:19 Influenza 9368975 Active 2017 ANGELITA VANG [address], [address], [place], [address] , [facility] 8 16:02:49 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 Active 2017 ANGELITA VANG [address], [address], [place], [address] , [facility] 8 16:05:54 Osteoporo sis 46062144 Active 2017 ANGELITA VANG [address], [address], [place], [address] , [facility] 8 16:06:06 Gastroeso phageal reflux disease 961640574 Active 2017 ISABELLE ALYSSA DATA VIRTUALIZATION CONSULTANT [address] [place] [address], [address], [place], [address] , [facility] 8 16:08:23 Asthenia 27247333 Active 2017 Thais Rocha MD [address] [place] [address], [facility] [address], [place], [address] , [facility] 8 13:54:57 Acute kidney injury 63781809 Active 2017 Thais Rocha MD [address] [place] [address], [address], [place], [address] , [employer] [facility] 8 14:30:45 Type 2 diabetes mellitus 06642141 Active 2023 Not Available [facility] 5 10:33:31 Muscle weakness 85949522 Active 2023 Not Available [facility] 5 10:33:31 Difficult y walking 654771863 Active 2023 Not Available [facility] 5 10:33:32 Dyspnea 662254915 Active 2023 Not Available [facility] 5 10:33:32 Anxiety disorder 892527964 Active 2023 Not Available [facility] 5 10:33:33 Insomnia 115509039 Active 2023 Not Available [facility] 5 10:33:34 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 51386621606 9100 Active 2023 Not Available [facility] 5 10:33:34 Cerebrova scular disease 06892346 Active 2023 Not Available [facility] 5 10:33:35 Fall Active 2023 Not Available [facility] 5 10:33:36 Allergic contact dermatiti s 228444062 Active 2023 Not Available [facility] 5 10:33:37 Diaphragm atic hernia 46008844 Active 2023 Not Available [facility] 5 10:33:38 Constipat ion 44753138 Active 2023 Not Available [facility] 5 10:33:38 Coronavir us infection 279818317 Active 2023 Not Available [facility] 5 10:33:39 Dementia associate d with another disease 111771758 Active 2023 Not Available [facility] 5 10:33:39 Chronic kidney disease stage 3 067089996 Active 2023 Not Available [facility] 5 10:33:39 Chronic kidney disease stage 3A 846424457 Active 2024 Tony Arreola MD [address], [address], [place], [address] , [facility] 5 08:58:43 Cirrhosis of liver 97937207 Active 2024 Tony Arreola MD [address], [address], [place], [address] , [facility] 5 08:58:50 Aortic valve stenosis 30878078 Active 2024 Tony Arreola MD [address], [address], [place], [address] , [facility] 5 08:59:06 Diabetes mellitus 66163022 Active 2024 Tony Arreola MD [address], [address], [place], [address] , [facility] 5 08:59:17 Delusiona l disorder 34766907 Active 2024 Not Available [facility] 5 12:34:52 Problem Notes None recorded. Medical Equipment None Reported. Allergies Allergen ID Allergen Name Allergen Category Reaction Reaction Severity Criticality Documentation Date Start Date Code Code System Note Provider Name and Address Organization Details Recorded Time 30627 Reglan medicatio n Not available Not available Not available 12/19/20242023 9230 RxNorm Not Available [facility] 5 10:33:44 9455 tetracain e medicatio n Not available Not available Not available 01/03/20182023 43847 RxNorm Not Available [facility] 5 10:33:44 9456 benzocain e medicatio n Not available Not available Not available 01/03/20182023 1399 RxNorm Not Available [facility] 5 10:33:44 9457 butamben medicatio n Not available Not available Not available 01/03/20182023 73683 RxNorm Not Available [facility] 5 10:33:44 9458 morphine medicatio n Not available Not available Not available 01/03/20182023 7052 RxNorm Not Available [facility] 5 10:33:44 9459 metoclopr amide Not available Not available Not available Not available 01/03/2018 6915 RxNorm ISABELLE SHAH, DATA VIRTUALIZATION CONSULTANT [address], [address], [place], [address], [facility] [employer] 8 15:01:21 9460 ceftazidi me anhydrous medicatio n Not available Not available Not available 01/03/20182023 67765 84 RxNorm Not Available [facility] [...] Available Not Available Not Avai lable 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 (omeprazole ) 20 mg capsule,del ayed release [...] 12/02/2024 122/57 mm[Hg] Tony Arreola MD [address], [address], [place], [address], [facility] 12/02/2024 08:50:04 Date Recorded Heart rate Respiratory rate Body temperature Oxygen saturation Oxygen saturation in Arterial blood by Pulse oximetry Systolic And Diastolic Provider Name and Address Organization Details Last Updated DateTime 5 67 /min 14 /min 97.9 [degF] 96 % 96 % 102/49 mm[Hg] HAKEEM JOHNSON NP [address], [address], [place], [address], [facility] 5 14:47:00 Date Recorded Body height Body mass index (BMI) Body weight Heart rate Respiratory rate Body temperature Oxygen saturation Oxygen saturation in Arterial blood by Pulse oximetry Systolic And Diastolic Provider Name and Address Organization Details Last Updated DateTime 5 152.4 cm 32.9 kg/m2 78140.9 6 g 72 /min 20 /min 97.3 [degF] 95 % 95 % 114/63 mm[Hg] Thais Rocha MD [address], [address], [place], [address], [facility] 5 18:57:01 Social History Question Answer Notes LastModified by Organizat ion Details LastModified Time Tobacco Smoking Status Former Smoker Thais Rocha MD [address], [address], [place], [address], [facility] 01/04/2018 14:12:51 Do You Have An [...] Do You Have A Medical Power Of Supervisor Cured Meats? Yes Information not available 01/04/2018 What Was [...] ICD10 Code Diagnosis IMO Codes Diagnosis Note [id number] ANGELITA VANG [address] [place] [address] 01/03/2018 15:00:09 01/12/2018 16:14:28 Influenza 1011649 J10.89 Flu A + in hospitalTa miflu was completedm onitor Essential hypertension 58387464 I10 lisinopril 20 mg qdlasix 20 mg qdnorvasc 5 mg qdmonitor b/p and labs Hyperlipidemia 30864834 E78.2 atorvastat in 20 mg qdmonitor labs Depressive disorder 3548 9007 F32.0 prozac 40 mg qdremeron 15 mg qdtrazodon e 50 mg qdhaldol 1 mg qdneg consult prnmonitor mood Dementia 37791742 F02.80 namenda 10 mg bidaricept 10 mg qdmonitor mood Coronary arteriosclerosis 62468293 I25.10 ASA 81 mg qdmonitor Osteoporosis 16355522 M8 1.0 calcium carbonate/ vit. D3 600/vit d bidmonitor labs Bladder mu scle dysfunction - overactive 551073347 N32.81 myrbetriq 50 mg qdincontin ent of urinemonit or History of cerebrovascular accident 124926762 Z86.73 right sided weaknessmo nitor Asthma 505391801 J45.20 zyrtec 10 mg qdmonitor resp status Gastroesop hageal reflux disease 763764964 K21.9 omeprazole 40 mg qdmonitor Asthenia 03769713 R53.1 PT/OT eval and [facility]ambul ate [facility] [address] Thais Rocha MD [facility] [address] [place] [address] rd [place] [address] 01/04/2018 13:51:14 01/12/2018 16:19:02 Asthenia 83147341 R53.1 Deconditio david after acute illness, needs PT/OT for strengthen ing and gait training. At baseline ambulates with walker. Anticipate less than 30 day stay and return home. Influenza 7710641 J10.89 Positive for influenza A in hospital, completed course of Tamiflu.Mo nitor Essential hypertension 58519702 I10 Stable on lisinopril 20 mg qd, lasix 20 mg qd and norvasc 5 mg qd.monitor BP and labs Hyperlipidemia 44446840 E78.2 Continue atorvastat in 20 mg qdmonitor chol with PCP. Depressive disorder 3548 9007 F32.0 Continue prozac 40 mg qd, remeron 15 mg qd, trazodone 50 mg qd and haldol 1 mg qd. Monitor mood and consider NEG consult Dementia 75170907 F02.80 Continue namenda 10 mg bid and aricept 10 mg qd. Expect continued decline. Provide supportive care. Coronary arteriosclerosis 11682905 I25.10 Continue ASA 81 mg qd and statin. F/U with Cardio prn Osteoporosis 14482426 M8 1.0 Continue calcium carbonate/ vit. D3 600/vit d bid Bladder mu scle dysfunction - overactive 813694203 N32.81 Continue myrbetriq 50 mg qdmonitor History of cerebrovascular accident 098727407 Z86.73 Residual right sided weakness. PT/OT as above. Follow for recurrence . Asthma 879328500 J45.20 Continue zyrtec 10 mg qdmonitor resp status Gastroesop hageal reflux disease 322518312 K21.9 No current sxs, continue omeprazole 40 mg qdmonitor Acute kidney injury 1466 9001 N17.8 Improved in hospital, not 100% nl. Will recheck today. May have baseline mild CRF. [address]70 ANGELITA VANG MICHELLE [address] [place] [address] [place] [address] 01/08/2018 13:49:05 01/12/2018 16:24:28 Cough 23688202 R05 bilateral lungs with wheezes and rhonchi throughout cough noted but non productive had flu in hospitalPP D was planted and is 30 mmchest x-ray orderedduo nebs ordered qid x3 days and prnmonitor for worsening symptoms [address] ANGELITA VANG MICAELA MICHELLE [address] [place] [address] 01/10/2018 13:57:28 01/12/2018 16:27:43 Cough 24614099 R05 continues with cough but now has yellow sputumstat es she feels betterbila teral lungs are clear nowcontinu e to monitor 26788 Tony Arreola MD [address] [address] 01/15/2018 10:39:11 01/15/2018 13:20:57 Acute low back pain 534936250 M54.5 x ray L-S spineproba ble mild left sacroillii tisPT OT eval and treattylen ol for paincontin ue to monitorcon isder SI brace 54208 ANGELITA VANG [address] [address] 01/24/2018 13:45:00 01/25/2018 11:35:41 Dementia 36412470 F02.80 namenda 10 mg bidaricept 10 mg qdfollow up with PCP Hyperlipidemia 67210438 E78.2 atorvastat in 20 mg qdfollow up with PCP Essential hypertension 90800194 I10 lisinopril 20 mg qdlasix 20 mg qdnorvasc 5 mg qdfollow up with PCP Gastroesop hageal reflux disease 441509553 K21.9 omeprazole 40 mg qdfollow up with PCP Osteoporosis 72773842 M8 1.0 calcium carbonate/ vit. D3 600/vit d bidtylenol prn pain follow up with PCP Depressive disorder 3548 9007 F32.0 prozac 40 mg qdremeron 15 mg qdtrazodon e 50 mg qdhaldol 1 mg qdfollow up with PCP Asthma 489142622 J45.20 zyrtec 10 mg qdfollow up with PCP Coronary arteriosclerosis 77039758 I25.10 ASA 81 mg qdfollow up with PCP Bladder mu scle dysfunction - overactive 365859379 N32.81 myrbetriq 50 mg qdfollow up with PCP History of cerebrovascular accident 701008522 Z86.73 right sided weaknessfo llow up with PCP [id number] Tony Arreola MD [facility] [address] [place], [place] [address] 12/02/2024 08:34:30 12/03/2024 11:00:58 Asthenia 59556227 R53.1 PT OT Eval and treatmonit or fall risk and need for increased support in community Essential hypertension 75287397 I10 lisinopril 20 mg qdnorvasc 5 mg qdmonitor bp and need to titrate Hyperlipidemia 47926842 E78.2 lipitor 20 mg qdcontinue d Depressive disorder 3548 9007 F32.0 prozac 40 mg qdremeron 15 mg qdmonitor moodsee above Dementia 97847703 F02.80 baseline dementiain voke [facility] - granddaugh tercontinu e supportive caremonito r for behaviorsp sych eval prnaricept 10 mg qdnamenda 10 mg bidof note currently on haldol qd - will await psych rec Coronary arteriosclerosis 87768133 I25.10 lipitor 20 mg qdasa 81 mg qdmonitor forupdate cards with concerns Gastroesop hageal reflux disease 906150038 K21.9 omeprazole 40 mg qdmonitor for sx relief COVID-19 097512432 U07.1 limited informatio n will request dc summary appears dx with covid now completed treatment Diabetes mellitus 316298 09 E11.9 carrying dx added to PMHjardian ce 10 mg qdmonitor blood glucose prn Aortic valve stenosis 60 911098 I35.0 limited informatio n availabler equest notes from PCP Cirrhosis of liver K74.69 limited informatio n availabler equest notes from PCP Chronic ki dney disease stage 3A 977732270 N18.31 monitor renal functionav oid nephrotoxi c meds as ablenephro consult prn 597390 HAKEEM JOHNSON NP [facility] [address] [place] [address] 12/09/2024 14:46:28 12/11/2024 08:32:16 Asthenia 94840086 R53.1 PT OT Eval and treatmonit or fall risk and need for increased support in community Dementia 84366203 F02.80 baseline dementiain voke HCP - granddaugh tercontinu e supportive caremonito r for behaviorsp sych eval prnaricept 10 mg qdnamenda 10 mg bidof note currently on haldol qd - will await psych rec COVID-19 399376382 U07.1 limited informatio n appears dx with covid now completed treatmentm onitor for sequelae Essential hypertension 12319395 I10 BP soft the past week or so.CBC today stable, chem pendingMai ntain fluidsCurr ently on:lisinop ril 20 mg qdnorvasc 5 mg qd - reduce to 2.5 mg qdmonitor bp and need to titrate Hyperlipidemia 04100990 E78.2 Continue lipitor 20 mg qdConsider stopping, ? benefit vs, risk in frail elder Depressive disorder 0408 9007 F32.0 prozac 40 mg qdremeron 15 mg qdmonitor moodsee above Coronary arteriosclerosis 82168258 I25.10 Continue:l ipitor 20 mg qdasa 81 mg qdmeds for BP controlmon itor VS, CP statusupda te cards with concerns Gastroesop hageal reflux disease 406437147 K21.9 Continue omeprazole 40 mg qdmonitor for sx relief Diabetes mellitus 949236 09 E11.9 carrying dx added to PMHjardian ce 10 mg qdmonitor blood glucose - bid x 7 days, then re-eval.ch yovany A1C prn Aortic valve stenosis 60 481010 I35.0 limited informatio n availabler equest notes from PCP Cirrhosis of liver K74.69 limited informatio n availabler equest notes from PCP Chronic ki dney disease stage 3A 056816588 N18.31 monitor renal functionav oid nephrotoxi c meds as ablenephro consult prn [id number] MD RICARDA Engle [address] [place] [address] 12/19/2024 18:31:17 12/20/2024 16:13:52 Diabetes mellitus 54076327 E11.9 With low sugars since here.Will change fingerstic ks to fasting on Mon & and prn (compromis e with granddaugh ter from my preference of M/W/F).Con tinue Jardiance 10 mg qd. [id number] FLO LEE, SHAHZAD-C RICARDA [address] [place] [address] 12/24/2024 09:08:15 12/31/2024 08:39:05 Diabetes mellitus 32349676 E11.9 With low sugars since here.[place] nue Jardiance 10 mg qd.monitor with VNAconside r decrease in jardiance if BS remains < 100 given age of 89 Asthenia 60049069 R53.1 continue PT OTworking on doing stairsfami ly very supportive VNA services in place per Dementia 90177563 F02.80 baseline dementiain voke HCP - granddabreanna teraricept 10 mg qdnamenda 10 mg bidhaldol once daily COVID-19 583925955 U07.1 resolved Essential hypertension 10504707 I10 improved with reduced dose of amlodipine lisinopril 20 mg qdnorvasc 2.5 mg qdmonitor bp and consider decrease outptpermi ssive BP goals for frail elderly of < 160/ 90 Hyperlipidemia 53307115 E78.2 Continue lipitor 20 mg qdlipids yearly outpt Depressive disorder 6218 9007 F32.0 prozac 40 mg qdremeron 15 mg qdmonitor mood outpt Coronary arteriosclerosis 26983886 I25.10 Continue:l ipitor 20 mg qdasa 81 mg qdmeds for BP control Gastroesop hageal reflux disease 261085195 K21.9 Continue omeprazole 40 mg qdmonitor for sx relief outpt Aortic valve stenosis 60 722439 I35.0 limited informatio n availablen o CP or sob here Cirrhosis of liver 80379 007 K74.69 limited informatio n available Chronic ki dney disease stage 3A 760404397 N18.31 monitor renal function, stable 12/23 labsavoid nephrotoxi c meds as ablenephro consult prn Conjunctivitis 8058444 H 10.9 erythro ophthalmic qid x 7 daysmonito r for improvemen t [id number] MICHAEL RAMOS [facility] [address] [place] [address] 12/27/2024 09:21:35 12/31/2024 09:41:18 Diabetes mellitus 13304218 E11.9 With low sugars since here.[place] nue Jardiance 10 mg qd.monitor with VNAconside r decrease in jardiance if BS remains < 100 given age of 89f/up with pcp Asthenia 95844821 R53.1 completed STR stayable 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2 Continue lipitor 20 mg qdlipids yearly outptf/up with pcp Depressive disorder 2601 9007 F32.0 prozac 40 mg qdremeron 15 mg qdmonitor mood outptf/up with pcp Coronary arteriosclerosis 81149029 I25.10 Continue:l ipitor 20 mg qdasa 81 mg qdmeds for BP controlf/u p with pcp Gastroesop hageal reflux disease 542015867 K21.9 Continue omeprazole 40 mg qdmonitor for sx relief outptf/up with pcp Aortic valve stenosis 60 594760 I35.0 limited informatio n availablen o CP or sob heref/up with pcp Cirrhosis of liver 007 K74.69 limited informatio n availablef /up with pcp Chronic ki dney disease stage 3A 277508937 N18.31 monitor renal function, stable 12/23 labsavoid nephrotoxi c meds as ablenephro consult prnf/up with pcp Conjunctivitis 5977291 H 10.9 erythro ophthalmic qid x 7 [...] Gonzalez Member ID Guarantor Name 12/31/2024 1 [facility] - DOS ON OR AFTER 2023 - MEDICARE ADVANTAGE [place] & [place] (MEDICARE REPLACEMENT/ADV ANTAGE - PPO) Sienna Mendez [id number] Elena Hurtado 12/02/2024 1 [facility] - DOS PRIOR TO 2023 - DUAL ELIGIBLE (MEDICARE REPLACEMENT/ADV ANTAGE - HMO) Sienna Mendez [id number] Elena Hurtado 12/31/2024 2 [place] [facility] Sienna Andrea [id number] Elena Hurtado Notes Date Note Type Note [...] therapy eval and treat Tony Arreola MD [address] [place] [address], [address], [place], [address], [facility] [employer] [facility] 12/02/2024 09:20:00 12/09/2024 text/html Sienna [...] issues reported by nsg. Case discussed with [employer] MAINTENAN[employer] MILLWRIGHT, who reports she did not eat as well today compared to other days. No other concerns. VSS, BP on the soft side the past week.Labs stable, chem pending today.No BS documented PMH: dementia , crf stage 3, cirrhosis, , dm, htn, cad, gerd, hld, depression, hx CVA HAKEEM JOHNSON NP [address], [facility] [address], [place], [address], [employer] 12/09/2024 15:01:58 12/19/2024 text/html I am asked to see this 89 yo armenian speaking woman rayshawn because her granddaughter is [...] depression, and dementia. Thais Rocha MD [address], [address], [place], [address], [employer] 12/19/2024 19:10:59 12/24/2024 text/html Patient is an [...] GERD, depression, and dementia. ATIF RAMOSC [address], [address], [place], [address], [employer] 12/29/2024 16:21:25 12/27/2024 text/html Patient is an [...] and received 6 hrs per day of [employer] care. Seen today and she is medically clear for dc home with meds and services. Her PMH includes HTN, depression, hx of CVA, CAD s/p NSTEMI, cirrhosis, asthma, HLD, CKD stage 3B, GERD, depression, and dementia. ATIF RAMOSC [address], [address], [place], [address], [facility] 12/27/2024 09:38:55 OBGyn Episode No OBEpisode recorded.
--- OUTSIDE RECORDS SUMMARY | 2025-10-09 16:51 | XMS_ITS | Encounter Summary ---
Author Organization [employer] Address [address] [facility] 7[address] [place] [address] Care Team Providers Care Automation And Controls Supervisor Name Role Phone Myah Singh MD Primary Care Provider [phone] Encounter Details Date Type Department Care Team ([facility] st Contact Info) Description 03/26/2025 Telephone [facility] [address] [place], [place] [phone] Myah Singh MD [address] [place], [place] [phone] Social History Tobacco Use Types Packs/Day Years [...] documented as of this encounter Care Teams Automation And Controls Supervisor Relationship Specialty Start Date End Date Myah Singh MD [address] [place] [address] PCP - General Family Medicine 11/08/12 [facility] 12/31/24 07/29/25 documented as of this encounter
--- OUTSIDE RECORDS SUMMARY | 2025-10-09 16:51 | XMS_ITS | Encounter Summary ---
Author Organization [employer] Address [address] [place] [address] 7t [place] [address] Care Team Providers Care Mattress Maker Name Role Phone Myah Singh MD Primary Care Provider [phone] Reason for Visit * Reason Onset Date Comments Durable Medical Equipment 01/30/2023 Encounter Details Date Type Department Care Team (Late st Contact Info) Description 01/30/2023 Telephone [facility] MED[facility]INE [address] [place], [place] [phone] Myah Singh MD [address] [place], [place] [phone] Durable Medical Equipment Social History Tobacco Use [...] call me or CHACE Beltran also patient BUS DRIVER can call them as they are the vendor for more information [phone] * Telephone Encounter - Uriahchadshy Rodriguezmahad Marion - 01/30/2023 10:00 AM EST Tc from pt BUS DRIVER Jonathan stating that for the last two months pt Large Pull ups and Wipes have not been deliver Please contact jonathan at [phone] documented in this encounter Plan of Treatment Not on file documented as of this encounter Visit Diagnoses Not on filedocumented in this encounter Care Teams Mattress Maker Relationship Specialty Start Date End Date Myah Singh MD [address] [place] [address] PCP - General Family Medicine 11/08/12 [facility] 12/31/24 07/29/25 documented as of this encounter
--- OUTSIDE RECORDS SUMMARY | 2025-10-09 16:51 | XMS_ITS | Encounter Summary ---
Author Organization [employer] Address [address] [place] [address] Care Team Providers Care Carbon Setter Name Role Phone Tony Arreola MD Primary Care Provider [phone] Encounter Details Date Type Department Care Team (Late st Contact Info) Description 11/29/2024 Lab Requisition [facility] - Main Lab [address] [place] [address] Tony Arreola MD 38 [facility] [address] [place], [address] Weakness; Unspecified dementia, unspecified severity, without [...] mmol/L LAB CHEMISTRY METHOD 12/02/2024 11:14 AM [facility] Potassium 4.0 3.5 - 5.5 mmol/L LAB CHEMISTRY METHOD 12/02/2024 11:14 AM [facility] Chloride 112(H) 96 - 110 mmol/L LAB CHEMISTRY METHOD 12/02/2024 11:14 AM [facility] CO2 27 21 - 32 mmol/L LAB CHEMISTRY METHOD 12/02/2024 11:14 AM [facility] Anion Gap 5 3 - 11 LAB CHEMISTRY METHOD 12/02/2024 11:14 AM [facility] Glucose 80 70 - 100 mg/dL LAB CHEMISTRY METHOD 12/02/2024 11:14 AM [facility] BUN 28(H) 5 - 25 mg/dL LAB CHEMISTRY METHOD 12/02/2024 11:14 AM [facility] Creatinine 1.19(H) 0.50 - 1.10 mg/dL LAB CHEMISTRY METHOD 12/02/2024 11:14 AM [facility] eGFR 44(L) >=60 mL/min/1. 73m2 LAB CHEMISTRY METHOD 12/02/2024 11:14 AM [facility] Comment:Calculation based on the Chronic Kidney Disease Epidemiology Collaboration (CKD-EPI) equation refit without adjustment for race. BUN/Creatinine Ratio 23.5 LAB CHEMISTRY METHOD 12/02/2024 11:14 AM [facility] Calcium 9.3 8.5 - 10.5 mg/dL LAB CHEMISTRY METHOD 12/02/2024 11:14 AM [facility] Blood Venous blood specimen / Unknown Venipuncture / Unknown 12/02/2024 7:21 AM EST 12/02/2024 10:33 AM EST us Tony Arreola MD LAB BLOOD ORDERABLES Final Resul t [facility] [address] [place] [address], * (ABNORMAL) Complete blood count (12/02/2024 7:21 AM EST) [facility] WBC 6.8 4.8 - 10.8 K/mcL LAB HEMETOLOGY METHOD 12/02/2024 10:57 AM [facility] RBC 4.40 3.80 - 4.80 M/mcL LAB HEMETOLOGY METHOD 12/02/2024 10:57 AM [facility] Hemoglobin 12.9 11.5 - 16.0 g/dL LAB HEMETOLOGY METHOD 12/02/2024 10:57 AM [facility] Hematocrit 41.3 35.0 - 47.0 % LAB HEMETOLOGY METHOD 12/02/2024 10:57 AM [facility] MCV 93.9 79.0 - 98.0 FL LAB HEMETOLOGY METHOD 12/02/2024 10:57 AM [facility] MCH 29.3 27.0 - 32.0 pcg LAB HEMETOLOGY METHOD 12/02/2024 10:57 AM [facility] MCHC 31.2(L) 32.0 - 37.0 g/dL LAB HEMETOLOGY METHOD 12/02/2024 10:57 AM [facility] RDW 14.5 11.0 - 15.0 % LAB HEMETOLOGY METHOD 12/02/2024 10:57 AM [facility] Platelets 155 130 - 400 K/mcL LAB HEMETOLOGY METHOD 12/02/2024 10:57 AM [facility] MPV 11.6(H) 7.0 - 11.0 FL LAB HEMETOLOGY METHOD 12/02/2024 10:57 AM [facility] NRBC 0.0 <1.0 % LAB HEMETOLOGY METHOD 12/02/2024 10:57 AM [facility] NRBC Absolute 0.00 <0.10 K/mcL LAB HEMETOLOGY METHOD 12/02/2024 10:57 AM EST [facility] Blood Venous blood specimen / Unknown Venipuncture / Unknown 12/02/2024 7:21 AM EST 12/02/2024 10:33 AM EST us Tony Arreola MD LAB BLOOD ORDERABLES Final Resul t [facility] ([facility] [address] [place] [address], documented in this encounter Visit Diagnoses Diagnosis Weakness Other malaise and fatigue Unspecified dementia, unspecified severity, without behavioral disturbance, psychotic disturbance, mood disturbance, and anxiety (CMS/HCC V24, CMS/HCC V28) documented in this encounter Care Teams Carbon Setter Relationship Specialty Start Date End Date Tony Arreola MD [address] [place] [address] [address] [place], [phone] PCP - General Family Medicine 12/14/24 documented as of this encounter
== END 2025-10-07 13:33 | disposition home or self-care (01) ==
LOC: HO.HOSX 13:32
PROVIDERS: Visit Provider Orthopaedic Surgery
DX: S52.571D Other intraarticular fracture of lower end of right radius, subsequent encounter for closed fracture with routine healing (principal); E11.9 Type 2 diabetes mellitus without complications; F03.90 Unspecified dementia, unspecified severity, without behavioral disturbance, psychotic disturbance, mood disturbance, and anxiety; R29.6 Repeated falls; R20.0 Anesthesia of skin; X58.XXXD Exposure to other specified factors, subsequent encounter
CPT/HCPCS: 73110; 99212

== ENCOUNTER 2025-10-14 06:05 | Outpatient (REF) | payer OTHER, SELFPAY ==
[2025-10-14 06:09] LABS: MANUAL DIFF FLAG NO
[2025-10-14 06:46] LABS: Hematocrit 41.6 % (37.0-47.0); Hemoglobin 13.4 g/dl (12.0-16.0); Imm Gran Abs Auto 0.02 X10*3/uL (0.00-0.03); Imm Gran Pct Auto 0.3 % (0.0-0.4); Lymphocytes Absolute Auto 1.2 X10*3/uL (1.2-4.9); Mean Corpuscular HGB Conc 32.2 g/dl (31.0-35.0); Mean Corpuscular Hemoglobin 29.8 pg (27.0-33.0); Mean Corpuscular Volume 92.4 fL (80.0-98.0); NRBC Abs Auto 0.000 X10*3/uL (0.0-0.012); NRBC Pct Auto 0.0 /100WBC (0.0-0.2); Platelet Count 144 X10*3/uL (160-400); Red Blood Count 4.50 X10*6/uL (4.20-5.50); White Blood Count 6.2 X10*3/uL (4.8-10.8)
[2025-10-14 07:04] LABS: Alanine Aminotransferase 8 U/L (0-31); Albumin Level 3.6 g/dL (3.5-5.0); Alkaline Phosphatase 71 U/L (39-117); Anion Gap 11 (12-20); Aspartate Amino Transferase 21 U/L (5-31); Blood Urea Nitrogen 15 mg/dL (9-16); Calcium 9.5 mg/dL (8.4-10.2); Carbon Dioxide 26 mmol/L (22-29); Chloride 111 mmol/L (96-108); Estimated Glomerular Filt Rate > 60; Potassium 3.6 mmol/L (3.3-5.1); Sodium 144 mmol/L (135-145); Total Protein 6.4 g/dL (6.5-8.0)
== END 2025-10-14 06:06 | disposition home or self-care (01) ==
LOC: HO.MMNH1L 06:05
PROVIDERS: Visit Provider Physician Assistant Medical
DX: Z13.89 Encounter for screening for other disorder (principal)
CPT/HCPCS: 36415; 80053; 85025

== ENCOUNTER 2025-10-20 06:50 | Outpatient (REF) | payer OTHER, SELFPAY ==
[2025-10-20 06:01] LABS: MANUAL DIFF FLAG NO
[2025-10-20 06:58] LABS: Hematocrit 42.5 % (37.0-47.0); Hemoglobin 13.3 g/dl (12.0-16.0); Imm Gran Abs Auto 0.02 X10*3/uL (0.00-0.03); Imm Gran Pct Auto 0.3 % (0.0-0.4); Lymphocytes Absolute Auto 1.0 X10*3/uL (1.2-4.9); Mean Corpuscular HGB Conc 31.3 g/dl (31.0-35.0); Mean Corpuscular Hemoglobin 29.2 pg (27.0-33.0); Mean Corpuscular Volume 93.4 fL (80.0-98.0); NRBC Abs Auto 0.000 X10*3/uL (0.0-0.012); NRBC Pct Auto 0.0 /100WBC (0.0-0.2); Platelet Count 140 X10*3/uL (160-400); Red Blood Count 4.55 X10*6/uL (4.20-5.50); White Blood Count 7.6 X10*3/uL (4.8-10.8)
[2025-10-20 06:59] LABS: Anion Gap 11 (12-20); Blood Urea Nitrogen 23 mg/dL (9-16); Calcium 9.6 mg/dL (8.4-10.2); Carbon Dioxide 24 mmol/L (22-29); Chloride 112 mmol/L (96-108); Estimated Glomerular Filt Rate > 60; Potassium 4.1 mmol/L (3.3-5.1); Sodium 143 mmol/L (135-145)
--- OUTSIDE RECORDS SUMMARY | 2025-10-20 07:06 | XMS_ITS | Encounter Summary ---
Author Organization [employer] Address [address] [facility] 7t [place] [address] Care Team Providers Care Special Education Instructor Name Role Phone Myah Singh MD Primary Care Provider [phone] Encounter Details Date Type Department Care Team ([facility] st Contact Info) Description 03/26/2025 Telephone [facility] [address] [place], [place] [phone] Myah Singh MD [address] [place], [place] [phone] Social History Tobacco Use Types Packs/Day Years [...] documented as of this encounter Care Teams Special Education Instructor Relationship Specialty Start Date End Date Myah Singh MD [address] [place] [address] PCP - General Family Medicine 11/08/12 [facility] 12/31/24 07/29/25 documented as of this encounter
--- OUTSIDE RECORDS SUMMARY | 2025-10-20 07:06 | XMS_ITS | Encounter Summary ---
Author Organization [employer] Address 75 [facility] 7t [place] [address] Care Team Providers Care Business Mgr Name Role Phone Myah Singh MD Primary Care Provider [phone] Reason for Visit * Reason Comments Med Refill Encounter Details Date Type Department Care Team (Late st Contact Info) Description 11/29/2023 Refill [facility] [address] [place], [place] [phone] Myah Singh MD [address] [place], [place] [phone] Vitamin D deficiency Social History Tobacco Use [...] documented as of this encounter Care Teams Business Mgr Relationship Specialty Start Date End Date Myah Singh MD [address] [place] [address] PCP - General Family Medicine 11/08/12 [facility] 12/31/24 07/29/25 documented as of this encounter
--- OUTSIDE RECORDS SUMMARY | 2025-10-20 07:06 | XMS_ITS | Encounter Summary ---
Author Organization [facility] Address [address] [facility] 200 [place] [address] Phone Care Team Providers Care Fuel Agent Name Role Phone Unavailable Primary Care Provider Unavailabl e Reason for Visit * Reason Comments Med Refill Encounter Details Date Type Department Care Team ([facility] st Contact Info) Description 12/10/2021 Refill [facility] [address] [facility] 200 [place] [phone] Chino Martinez MD [address] [facility] 204 [place] [phone] Social History Tobacco Use Types Packs/Day Years [...]
--- OUTSIDE RECORDS SUMMARY | 2025-10-20 07:06 | XMS_ITS | Patient Health Record ---
Author Organization [facility] Address [address] [place] [address] Care Team Providers Care Sanitary Engineering Teacher Name Role Phone Samantha GARCIA, Myah Primary Care Provider Cali Bailey [phone] Allergies Allergen (clinical drug ingredient) Drug/Non Drug Allergy documented on EMR Reaction Allergy Type Onset Date Status benzocaine / butamben / tetracaine Cetacaine Unknown Drug Allergy Active morphine Morphine Sulfate Unknown Drug Allergy Active Reason For Referral No Information Medications Medication SIG (Take, Route, Frequency, Duration) Notes Start Date End Date Status Amlodipine & Diet Manage Prod Active Oyst-Izaiah Active Aspir-81 Active VESIcare Active Fluoxetine & Diet Manage Prod Active Norvasc Active oxyBUTYnin Active lipitor Active MiraLax 1 Powder 1 capful in 8 ounces of water Orally QD-BID; Duration: 30 days 08/30/2013 Active Lisinopril 20 MG Tablet 1 tablet Orally Once a day; Duration: 90 days 09/15/2015 Active Omeprazole 40 MG Unspecified 1 capsule Orally Once a day; Duration: 30 Active traZODone HCl Active Enalapril Maleate Ac tive Social History Social History Additional Details Category Social Info Options Details Miscellaneous: Marital status: single Occupation: retired Section Notes: Nonsmoker > 10 yrs; no alcoh ol Nonsmoker > 10 yrs; no alcoh ol Problems Problem Type SNOMED Code ICD Code Onset Dates Problem Status W/U Status Risk Notes Problem Gastroesophageal reflux disease without esophagitis (152817874) Gastroesophageal reflux disease without esophagitis (K21.9) Active confirmed Problem Elevated liver enzymes level (441833241) Elevated liver enzymes (R74.8) Active confirmed Problem Constipation (07957844) Constipation, unspecified constipation type (K59.00) Active confirmed Plan Of Treatment Pending Test Test Name Order Date LIVER PROFILE 04/06/2016 Insurance Providers Payer Name Payer Address Payer Phone Subscriber Number Group Number Insured Name Patient Relationship to Insured Coverage Start Date Coverage End Date [facility] [address] [place] [phone] [id number] ZITA PAPPAS Self - patient is the insured MEDICARE OF [place] [address] [place] [address] [id number] ZITA PAPPAS Self - patient is the insured Medical (General) History Medical History History ICD Code GERD--UPPER ENDOSCOPY & COLO NOSCOPY IN 2007--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
--- OUTSIDE RECORDS SUMMARY | 2025-10-20 07:06 | XMS_ITS | Encounter Summary ---
Author Organization [facility] Address [address] [place] [address] Care Team Providers Care Engineering Lecturer Name Role Phone Tony Arreola MD Primary Care Provider [phone] Encounter Details Date Type Department Care Team (Late st Contact Info) Description 12/14/2024 Lab Requisition [facility] - Main Lab [address] [place] [address] Tony Arreola MD 38 [facility] [address] [place], [address] Weakness; Unspecified dementia, unspecified severity, without [...] mmol/L LAB CHEMISTRY METHOD 12/16/2024 1:55 PM [facility] Potassium 4.1 3.5 - 5.5 mmol/L LAB CHEMISTRY METHOD 12/16/2024 1:55 PM [facility] Chloride 113(H) 96 - 110 mmol/L LAB CHEMISTRY METHOD 12/16/2024 1:55 PM [facility] CO2 28 21 - 32 mmol/L LAB CHEMISTRY METHOD 12/16/2024 1:55 PM [facility] Anion Gap 5 3 - 11 LAB CHEMISTRY METHOD 12/16/2024 1:55 PM [facility] Glucose 88 70 - 100 mg/dL LAB CHEMISTRY METHOD 12/16/2024 1:55 PM [facility] BUN 25 5 - 25 mg/dL LAB CHEMISTRY METHOD 12/16/2024 1:55 PM [facility] Creatinine 1.26(H) 0.50 - 1.10 mg/dL LAB CHEMISTRY METHOD 12/16/2024 1:55 PM [facility] eGFR 41(L) >=60 mL/min/1. 73m2 LAB CHEMISTRY METHOD 12/16/2024 1:55 PM [facility] Comment:Calculation based on the Chronic Kidney Disease Epidemiology Collaboration (CKD-EPI) equation refit without adjustment for race. BUN/Creatinine Ratio 19.8 LAB CHEMISTRY METHOD 12/16/2024 1:55 PM [facility] Calcium 9.3 8.5 - 10.5 mg/dL LAB CHEMISTRY METHOD 12/16/2024 1:55 PM [facility] Blood Venous blood specimen / Unknown Venipuncture / Unknown 12/16/2024 7:20 AM EST 12/16/2024 11:32 AM EST us Tony Arreola MD LAB BLOOD ORDERABLES Final Resul t [facility] [address] [place] [address], [place] [phone] * (ABNORMAL) Complete blood count (12/16/2024 7:20 AM EST) [facility] WBC 5.4 4.8 - 10.8 K/mcL LAB HEMETOLOGY METHOD 12/16/2024 12:51 PM [facility] RBC 4.60 3.80 - 4.80 M/mcL LAB HEMETOLOGY METHOD 12/16/2024 12:51 PM [facility] Hemoglobin 13.4 11.5 - 16.0 g/dL LAB HEMETOLOGY METHOD 12/16/2024 12:51 PM [facility] Hematocrit 43.8 35.0 - 47.0 % LAB HEMETOLOGY METHOD 12/16/2024 12:51 PM [facility] MCV 95.8 79.0 - 98.0 FL LAB HEMETOLOGY METHOD 12/16/2024 12:51 PM [facility] MCH 29.3 27.0 - 32.0 pcg LAB HEMETOLOGY METHOD 12/16/2024 12:51 PM [facility] MCHC 30.6(L) 32.0 - 37.0 g/dL LAB HEMETOLOGY METHOD 12/16/2024 12:51 PM [facility] RDW 14.9 11.0 - 15.0 % LAB HEMETOLOGY METHOD 12/16/2024 12:51 PM [facility] Platelets 135 130 - 400 K/mcL LAB HEMETOLOGY METHOD 12/16/2024 12:51 PM [facility] MPV 12.3(H) 7.0 - 11.0 FL LAB HEMETOLOGY METHOD 12/16/2024 12:51 PM [facility] NRBC 0.0 <1.0 % LAB HEMETOLOGY METHOD 12/16/2024 12:51 PM [facility] NRBC Absolute 0.00 <0.10 K/mcL LAB HEMETOLOGY METHOD 12/16/2024 12:51 PM EST [facility] Blood Venous blood specimen / Unknown Venipuncture / Unknown 12/16/2024 7:20 AM EST 12/16/2024 11:32 AM EST us Tony Arreola MD LAB BLOOD ORDERABLES Final Resul t [facility]) [facility] [address] [place] [address], documented in this encounter Visit Diagnoses Diagnosis Weakness Other malaise and fatigue Unspecified dementia, unspecified severity, without behavioral disturbance, psychotic disturbance, mood disturbance, and anxiety (CMS/HCC V24, CMS/HCC V28) documented in this encounter Care Teams Engineering Lecturer Relationship Specialty Start Date End Date Tony Arreola MD [address] [place] [address] [address] [place], [phone] PCP - General Family Medicine 12/14/24 documented as of this encounter
--- OUTSIDE RECORDS SUMMARY | 2025-10-20 07:06 | XMS_ITS | Clinical Summary ---
Author Organization 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, upcoming appt -Continue [...] Risk: CKD, age, NSTEMI, Hx CVA/TIA, DM2 -Scientist Engineer: Previously [facility], pt has a new [...] to 50 Years) Discontinued 02/23/2015, 10/04/2001 Insurance [facility] ([id number]) [place] [id number] [facility] ([id number])
--- OUTSIDE RECORDS SUMMARY | 2025-10-20 07:06 | XMS_ITS | Encounter Summary ---
Author Organization [employer] Address [address] [facility] 7t [place] [address] Care Team Providers Care Sample Tester Name Role Phone Myah Singh MD Primary Care Provider [phone] Reason for Visit * Reason Comments Med Refill Encounter Details Date Type Department Care Team (Late st Contact Info) Description 10/22/[address] [facility]INE [address] [place], [place] [phone] Myah Singh MD [address] [place], [place] [phone] Allergic rhinitis, unspecified seasonality, unspecified trigger Social [...] documented as of this encounter Care Teams Sample Tester Relationship Specialty Start Date End Date Myah Singh MD [address] [place] [address] PCP - General Family Medicine 11/08/12 [facility] [place] 12/31/24 07/29/25 documented as of this encounter
--- OUTSIDE RECORDS SUMMARY | 2025-10-20 07:06 | XMS_ITS | Encounter Summary ---
Author Organization [employer] Address [address] [place] [address] Care Team Providers Care Retail Department Supervisor Name Role Phone Tony Arreola MD Primary Care Provider [phone] Encounter Details Date Type Department Care Team (Late st Contact Info) Description 12/21/2024 Lab Requisition [facility] - Main Lab [address] [place] [address] Tony Arreola MD 38 [facility] [address] [place], [address] Weakness; Unspecified dementia, unspecified severity, without [...] mmol/L LAB CHEMISTRY METHOD 12/23/2024 12:53 PM [facility] Potassium 4.2 3.5 - 5.5 mmol/L LAB CHEMISTRY METHOD 12/23/2024 12:53 PM [facility] Chloride 111(H) 96 - 110 mmol/L LAB CHEMISTRY METHOD 12/23/2024 12:53 PM [facility] CO2 28 21 - 32 mmol/L LAB CHEMISTRY METHOD 12/23/2024 12:53 PM [facility] Anion Gap 5 3 - 11 LAB CHEMISTRY METHOD 12/23/2024 12:53 PM [facility] Glucose 84 70 - 100 mg/dL LAB CHEMISTRY METHOD 12/23/2024 12:53 PM [facility] BUN 22 5 - 25 mg/dL LAB CHEMISTRY METHOD 12/23/2024 12:53 PM [facility] Creatinine 1.25(H) 0.50 - 1.10 mg/dL LAB CHEMISTRY METHOD 12/23/2024 12:53 PM [facility] eGFR 42(L) >=60 mL/min/1. 73m2 LAB CHEMISTRY METHOD 12/23/2024 12:53 PM [facility] Comment:Calculation based on the Chronic Kidney Disease Epidemiology Collaboration (CKD-EPI) equation refit without adjustment for race. BUN/Creatinine Ratio 17.6 LAB CHEMISTRY METHOD 12/23/2024 12:53 PM [facility] Calcium 9.3 8.5 - 10.5 mg/dL LAB CHEMISTRY METHOD 12/23/2024 12:53 PM [facility] Blood Venous blood specimen / Unknown Venipuncture / Unknown 12/23/2024 6:50 AM EST 12/23/2024 10:55 AM EST us Tony Arreola MD LAB BLOOD ORDERABLES Final Resul t [facility] [address] [place] [address], * (ABNORMAL) Complete blood count (12/23/2024 6:50 AM EST) [facility] WBC 6.0 4.8 - 10.8 K/mcL LAB HEMETOLOGY METHOD 12/23/2024 12:49 PM [facility] RBC 4.70 3.80 - 4.80 M/mcL LAB HEMETOLOGY METHOD 12/23/2024 12:49 PM [facility] Hemoglobin 13.4 11.5 - 16.0 g/dL LAB HEMETOLOGY METHOD 12/23/2024 12:49 PM [facility] Hematocrit 43.6 35.0 - 47.0 % LAB HEMETOLOGY METHOD 12/23/2024 12:49 PM [facility] MCV 93.6 79.0 - 98.0 FL LAB HEMETOLOGY METHOD 12/23/2024 12:49 PM [facility] MCH 28.8 27.0 - 32.0 pcg LAB HEMETOLOGY METHOD 12/23/2024 12:49 PM [facility] MCHC 30.7(L) 32.0 - 37.0 g/dL LAB HEMETOLOGY METHOD 12/23/2024 12:49 PM [facility] RDW 14.8 11.0 - 15.0 % LAB HEMETOLOGY METHOD 12/23/2024 12:49 PM [facility] Platelets 142 130 - 400 K/mcL LAB HEMETOLOGY METHOD 12/23/2024 12:49 PM [facility] MPV 12.0(H) 7.0 - 11.0 FL LAB HEMETOLOGY METHOD 12/23/2024 12:49 PM [facility] NRBC 0.0 <1.0 % LAB HEMETOLOGY METHOD 12/23/2024 12:49 PM [facility] NRBC Absolute 0.00 <0.10 K/mcL LAB HEMETOLOGY METHOD 12/23/2024 12:49 PM EST [facility] Blood Venous blood specimen / Unknown Venipuncture / Unknown 12/23/2024 6:50 AM EST 12/23/2024 10:55 AM EST Tony Arreola MD LAB BLOOD ORDERABLES Final Resul t [facility] [address] [place] [address], documented in this encounter Visit Diagnoses Diagnosis Weakness Other malaise and fatigue Unspecified dementia, unspecified severity, without behavioral disturbance, psychotic disturbance, mood disturbance, and anxiety (CMS/HCC V24, CMS/HCC V28) documented in this encounter Care Teams Retail Department Supervisor Relationship Specialty Start Date End Date Tony Arreola MD [address] [place] [address], [phone] PCP - General Family Medicine 12/14/24 documented as of this encounter
--- OUTSIDE RECORDS SUMMARY | 2025-10-20 07:06 | XMS_ITS | Encounter Summary ---
Author Organization [employer] Address [address] [place] [address] Care Team Providers Care Cnp Name Role Phone Tony Arreola MD Primary Care Provider [phone] Encounter Details Date Type Department Care Team (Late st Contact Info) Description 12/28/2024 Lab Requisition [facility] - Main Lab 299 [facility] [place] [address] Tony Arreola MD 38 [facility] [address] [place], [address] Weakness; Unspecified dementia, unspecified severity, without [...] V28) documented in this encounter Care Teams Cnp Relationship Specialty Start Date End Date Tony Arreola MD 38 [facility] [address] [place], [phone] PCP - General Family Medicine 12/14/24 documented as of this encounter
--- OUTSIDE RECORDS SUMMARY | 2025-10-20 07:06 | XMS_ITS | Clinical Summary ---
Author Organization 299 [facility] Address [address] [place] [address] Phone Care Team Providers Care Computed Tomography Technologist Name Role Phone Tony Arreola MD Primary Care Provider [phone] Social History Tobacco Use Types Packs/Day Years [...] t [facility] [address] [place] [address], * (ABNORMAL) Comprehensive metabolic panel (02/24/2025 6:34 [...] mg/dL LAB CHEMISTRY METHOD [facility]/24[facility]25 12[facility] eGFR 53(L) >=60 mL/min/1. [...] t [facility] [address] [place] [address], from Last 3 Months or Most Recently Relevant to Health Maintenance Insurance [facility] MEDICARE Member Subscriber Plan / Payer (Ef fective 2019-Present) Name:Sienna Mendez Relation to Subscriber:Self Name:Sienna Mendez Payer ID:[id number] Group ID:[id number] Type:Not on file Address: [address] [place] [id number] Care Teams Computed Tomography Technologist Relationship Specialty Start Date End Date Tony Arreola MD [address] [place] [address] [address] [place], [phone] PCP - General Family Medicine 12/14/24
--- OUTSIDE RECORDS SUMMARY | 2025-10-20 07:07 | XMS_ITS | Encounter Summary ---
Author Organization [employer] Address [address] [place] [address] 7t [place] [address] Care Team Providers Care Mud Jack Nozzle Worker Name Role Phone Myah Signh MD Primary Care Provider [phone] Reason for Visit * Reason Onset Date Comments Durable Medical Equipment 01/30/2023 Encounter Details Date Type Department Care Team ([facility] st Contact Info) Description 01/30/2023 Telephone [facility] MEDICINE [address] [place], [place] [phone] Myah Singh MD [address] [place], [place] [phone] Durable Medical Equipment Social History Tobacco Use [...] call me or CHACE Beltran also patient [employer]IC[employer]AX CONSULTANT can call them as they are the vendor for more information [phone] * Telephone Encounter - Uriahchadshy Rodriguezmahad Marion - 01/30/2023 10:00 AM EST Tc from pt LIC[employer] TAX CONSULTANT Jonathan stating that for the last two months pt Large Pull ups and Wipes have not been deliver Please contact jonathan at [phone] documented in this encounter Plan of Treatment Not on file documented as of this encounter Visit Diagnoses Not on filedocumented in this encounter Care Teams Mud Jack Nozzle Worker Relationship Specialty Start Date End Date Myah Singh MD [address] [place] [address] PCP - General Family Medicine 11/08/12 [facility] 12/31/24 07/29/25 documented as of this encounter
--- OUTSIDE RECORDS SUMMARY | 2025-10-20 07:07 | XMS_ITS | Encounter Summary ---
Author Organization [employer] Parents Address [address] [place] [address] Care Team Providers Care Line Camera Operator Name Role Phone Tony Arreola MD Primary Care Provider [phone] Encounter Details Date Type Department Care Team (Late st Contact Info) Description 02/24/2025 Lab Requisition [facility] - Main Lab [address] [facility] [place] [address] Venus Mayberry MD [address] [place], [place] [phone] Essential (primary) hypertension; Type 2 diabetes mellitus [...] ORDERABLES Final Resul t Performing Organization Address City/[facility]/ZIP Co de Phone Number [facility] [address] [place] [address], [place] [phone] * Folate (02/24/2025 6:34 AM EDT) [facility] Folate 11.3 2.8 - 17.0 ng/ml LAB CHEMISTRY METHOD 02/24/2025 12:24 PM EDT [facility] Blood Venous blood specimen / Unknown Venipuncture / Unknown 02/24/2025 6:34 AM EDT 02/24/2025 10:44 AM EDT us Venus Mayberry MD LAB BLOOD ORDERABLES Final Resul t Performing Organization Address City/[facility]/ZIP Co de Phone Number [facility] [address] [place] [address], [place] [phone] * (ABNORMAL) Vitamin D 25 hydroxy (02/24/2025 [...] ORDERABLES Final Resul t Performing Organization Address [facility] Co de Phone Number [facility] [address] [place] [address], * Thyroid stimulating hormone (02/24/2025 6:34 AM EDT) [facility] TSH 1.44 0.40 - 4.00 mcIU/mL LAB CHEMISTRY METHOD 02/24/2025 1:13 PM EDT [facility] Blood Venous blood specimen / Unknown Venipuncture / Unknown 02/24/2025 6:34 AM EDT 02/24/2025 10:44 AM EDT us Venus Mayberry MD LAB BLOOD ORDERABLES Final Resul t Performing Organization Address [facility] de Phone Number [facility] [address] [place] [address], [place] [phone] * Hemoglobin A1c (02/24/2025 6:34 AM EDT) [...] t [facility] [address] [place] [address], [place] [phone] * (ABNORMAL) Comprehensive metabolic panel (02/24/2025 6:34 [...] METHOD 02/24/2025 12:24 PM [facility] eGFR 53(L) >=60 mL/min/1. 73m2 [...] g/dL LAB CHEMISTRY [facility] Albumin 3.1(L) 3.2 - [...] Resul t [facility] [address] [place] [address], * (ABNORMAL) Complete blood count (02/24/2025 6:34 AM EDT) WBC 6.0 4.8 - 10.8 K/mcL LAB HEMETOLOGY METHOD 02/24/2025 1:12 PM EDT [facility] RBC 4.80 3.80 - 4.80 M/mcL LAB HEMETOLOGY METHOD 02/24/2025 1:12 PM [facility] Hemoglobin 14.3 11.5 - 16.0 g/dL LAB HEMETOLOGY METHOD 02/24/2025 1:12 PM [facility] Hematocrit 45.6 35.0 - 47.0 % LAB HEMETOLOGY METHOD 02/24/2025 1:12 PM [facility] MCV 94.2 79.0 - 98.0 FL LAB HEMETOLOGY METHOD 02/24/2025 1:12 PM [facility] MCH 29.5 27.0 - 32.0 pcg LAB HEMETOLOGY METHOD 02/24/2025 1:12 PM [facility] MCHC 31.4(L) 32.0 - 37.0 g/dL LAB HEMETOLOGY METHOD 02/24/2025 1:12 PM [facility] RDW 14.7 11.0 - 15.0 % LAB HEMETOLOGY METHOD 02/24/2025 1:12 PM [facility] Platelets 154 130 - 400 K/mcL LAB HEMETOLOGY METHOD 02/24/2025 1:12 PM [facility] MPV 11.7(H) 7.0 - 11.0 FL LAB HEMETOLOGY METHOD 02/24/2025 1:12 PM [facility] NRBC 0.0 <1.0 % LAB HEMETOLOGY METHOD 02/24/2025 1:12 PM [facility] NRBC Absolute 0.00 <0.10 K/mcL LAB HEMETOLOGY METHOD 02/24/2025 1:12 PM [facility] Blood Venous blood specimen / Unknown Venipuncture / Unknown 02/24/2025 6:34 AM EDT 02/24/2025 10:44 AM EDT Venus Mayberry MD LAB BLOOD ORDERABLES Final Resul t [facility] [address] [place] [address], documented in this encounter Visit Diagnoses Diagnosis Essential (primary) hypertension Unspecified essential hypertension Type 2 diabetes mellitus without complications (CMS/HCC V24, CMS/HCC V28) documented in this encounter Care Teams Line Camera Operator Relationship Specialty Start Date End Date Tony Arreola MD [address] [place] [address], [phone] PCP - General Family Medicine 12/14/24 documented as of this encounter
--- OUTSIDE RECORDS SUMMARY | 2025-10-20 07:07 | XMS_ITS | Data Portability ---
Author Organization [employer] [facility], [facility] Address [address] [place] [phone] Care Team Providers Care Pop Singer Name Role Phone [facility] Referring Provider [phone] Assessment Encounter Date Assessment Date Assessment LastModified [...] whole blood + [facility], [address] [place] [address], [place], [phone] 10:38:51 culture, urine JUD [facility] (Centralized Electronic Ordering - All Locations), Patient Can Go To The Location Of Their Choice, [address] 05:01:48 Referral None recorded. Procedures None recorded. [...] Vitals Date Recorded Respiratory rate Oxygen saturation Body temperature Heart rate Body temperature Oxygen saturation Respiratory rate Heart rate Systolic And Diastolic Systolic And Diastolic Provider Name and Address Organization Details Last Updated DateTime 2 20 /min 94 % 98 [degF] 84 /min 98 [degF] 94 % 20 /min 84 /min 101/63 [...] 4625 Kenia Hernandez MD Main - instED [address] [place] [phone] 09/10/2022 16:51:17 09/12/2022 13:08:31 Right upper quadrant pain [id number] R10.11 Health Concerns Section Related Observation LastModified by Organization Detai ls LastModified Time None Recorded Concern Status LastModified by Organization Details LastModified Time None Recorded Advance Directives Directive None Recorded Payers Insurance Date Sequence Insurance Name Policy Number Policy Gonzalez Covered Member ID Gonzalez Member ID Guarantor Name 01/21/2024 1 [facility] - DOS PRIOR TO 2023 - DUAL ELIGIBLE (MEDICARE REPLACEMENT/ADV ANTAGE - HMO) Sienna Mendez [id number] Sienna Mendez 01/21/2024 1 [facility] - DOS ON OR AFTER 2023 - DUAL ELIGIBLE - CORRECTION OPTIONS AND ONE CARE (MEDICARE REPLACEMENT/ADV ANTAGE - HMO) Sienna Mendez [id number] Sienna Mendez Notes Date Note Type Note [...] and assists coordinate all visitsher number is [phone], member uses this number as her Primary contact. Member is an 87 yo female with old [place], osteoarthritis, thrombocytopenia and HTN hrt & CKD and Modereate Dementia. Pleasantly confused. Supportive family. This RNCP recommends Female Providers if possible. Can the results be faxed to [facility] at [phone] Singh if possible? ...................... ...................... ...................... ...................... ...................... ...................... ......... CRC Nursing Assessment: Comments: CRC RN did not require any additional information to process this visit. Spoke with daughter who agrees to visit for 09/10> would like to be seen early in the day if possible [facility] HPI:chronic kidney disease, dementia, HTN, CAD with acute on chronic progressive behavior changes. eating normally, voiding normally, drinking normally, no vomiting, no diarrhea, no fevers, cough. No one else has been sick at home. No changes the family can identify in terms of schedule. No reports of worse unsteadiness on her feet or falls.Granddaughter reports that PMH includes cirrhosis Kenia Hernandez MD [address] [facility],[address], [place], [address], [place] [employer] 09/10/2022 17:40:46 OBGyn Episode No OBEpisode recorded.
--- OUTSIDE RECORDS SUMMARY | 2025-10-20 07:07 | XMS_ITS | Encounter Summary ---
Author Organization [employer] Address [address] [facility] [address] [place] [address] Care Team Providers Care Architectural Design Lecturer Name Role Phone Myah Singh MD Primary Care Provider Encounter Details Date Type Department Care Team (Late st Contact Info) Description 01/30/[address] [facility] MEDICINE [address] [place], [place] [phone] Myah Singh MD [address] [place], [place] [phone] Social History Tobacco Use Types Packs/Day Years [...] on filedocumented in this encounter Care Teams Architectural Design Lecturer Relationship Specialty Start Date End Date Myah Singh MD [address] [place], [place] [phone] PCP - General Family Medicine 11/08/12 [facility] 12/31/24 07/29/25 documented as of this encounter
--- OUTSIDE RECORDS SUMMARY | 2025-10-20 07:07 | XMS_ITS | Encounter Summary ---
Author Organization [facility] Address [address] [place] [address] Care Team Providers Care Looper Operator Name Role Phone Tony Arreola MD Primary Care Provider [phone] Encounter Details Date Type Department Care Team (Late st Contact Info) Description 12/06/2024 Lab Requisition [facility] - Main Lab [address] [place] [address] Tony Arreola MD [address] [facility] [address] [place], [phone] Weakness; Unspecified dementia, unspecified severity, without [...] Resul t [facility] [address] [place] [address], [place] [phone] * (ABNORMAL) Complete blood count (12/09/2024 7:13 [...] Resul t [facility] [address] [place] [address], documented in this encounter Visit Diagnoses Diagnosis Weakness Other malaise and fatigue Unspecified dementia, unspecified severity, without behavioral disturbance, psychotic disturbance, mood disturbance, and anxiety (CMS/HCC V24, CMS/HCC V28) documented in this encounter Care Teams Looper Operator Relationship Specialty Start Date End Date Tony Arreola MD [address] [place] [address], [phone] PCP - General Family Medicine 12/14/24 documented as of this encounter
--- OUTSIDE RECORDS SUMMARY | 2025-10-20 07:07 | XMS_ITS | Clinical Summary ---
Author Organization [employer] Address [address] [facility] [address] [place] [address] Care Team Providers Care Boat Deckhand Name Role Phone Myah Singh MD Primary Care Provider [phone] Allergies Active Allergy Reactions Criticality Noted Date [...] mouth Once per day. 12/10/19 22 Active Calcium + Vitamin D3 600-5 MG-MCG [...] ONCE PER DAY. 90 tablet 1 5 4:32 PM EST 05/29/20 25 Active amLODIPine (Norvasc) 5 MG [...] whether stage 3a or 3b CKD ([facility]) TEST BLOOD SUGAR DAILY AND NEEDED 100 each 10 5 11:03 AM EST 08/05/20 25 Active Alcohol Swabs (Ultra-Care Alcohol Prep Pads) 70 % pads USE DIRECTED TO CLEAN ARE PRIOR TO FINGER STICK 100 each 11 10/14/20 25 Active cetirizine (ZyrTEC) 5 MG tablet TAKE 1 TABLET (5 MG) BY MOUTH IN THE MORNING. 30 tablet 1 10/15/20 25 Active Alcohol Swabs (Ultra-Care Alcohol Prep Pads) 70 % pads USE DIRECTED TO CLEAN ARE PRIOR TO FINGER STICK 100 each 4 04/02/20 25 025 Discontinued cetirizine (ZyrTEC) 5 MG tablet TAKE 1 TABLET (5 MG) BY MOUTH IN THE MORNING. 30 tablet 1 08/11/20 25 025 Discontinued Active Problems Problem Noted [...] PM EDT): -Oct 2015 -Previously following with [facility] Cardiology, upcoming appt -Continue risk factor mangement Assessment & Plan (01/07/2023 4:34 PM EST): -Oct 2015 -Previously following with [facility] Cardiology, upcoming appt [...] cm2. Mild aortic valve regurgitation. -Seen by inspector conveyor line, Dr. Garcia in [facility], on 07/27/23, since [...] cm2. Mild aortic valve regurgitation. -Seen by inspector conveyor line, Dr. Garcia in [facility], on 07/27/23, since [...] cm2. Mild aortic valve regurgitation. -Seen by inspector conveyor line, Dr. Garcia in [facility], on 07/27/23, since [...] -Pt has an upcoming appt with her inspector conveyor line Assessment & Plan (01/07/2023 5:17 PM EST): - Most recent TTE 10/14/22: There is mild calcification of the aortic valve. There is moderate aortic valve stenosis. The peak aortic gradient is 33 mmHg.The mean gradient is 16 mmHg. There is mild aortic valve regurgitation. -Pt has loud murmur consistent with aortic stenosis -NSTEMI in 2014 -Pt has an upcoming appt with her inspector conveyor line Anemia 01/07/2023 Assessment & Plan (01/07/2023 5:24 PM EST): - anemia of chronic disease (CKD, cirrhosis) - continue ferrous sulfate - check lab Diabetes mellitus, type 2 12/28/2022 Overview (04/07/2025): Frequent utis from jardiance Assessment & Plan (05/06/2025 11:29 AM EDT): Blood sugars are in range (90-110)without jardance, pt grandaughter and [employer] deny any swelling, sob, orthopnea edema or [...] AM EDT): -previously eavluated by Dr. Ld IKNG. Last seen in 2015. Impression was due [...] Plan (01/17/2025 5:56 AM EST): -Following with [facility] Sleep medicine clinic, [...] 05/21/2015 Severe major depression with psychotic features ([facility]) 02/23/2015 Assessment & Plan (01/17/2025 6:11 AM EST): - continue fluoxetine, trazodone, and mirtazapine as prescribed by psychiatrist. Thrombocytopenia 03/27/2013 Assessment & Plan (01/17/2025 6:10 AM EST): - in a setting of cirrhosis, compensated - monitor periodically Osteopenia 01/07/2013 Anxiety 12/10/2012 Dementia ([facility]) 12/10/2012 Assessment & Plan (01/17/2025 5:58 AM [...] Risk: CKD, age, NSTEMI, Hx CVA/TIA, DM2 -Conservation Officer: Previously [facility] pt has a [...] Risk: CKD, age, NSTEMI, Hx CVA/TIA, DM2 -Conservation Officer: Previously [facility] pt has a [...] Risk: CKD, age, NSTEMI, Hx CVA/TIA, DM2 -Conservation Officer: Previously [facility] pt has a [...] Risk: CKD, age, NSTEMI, Hx CVA/TIA, DM2 -Conservation Officer: Previously [facility] pt has a [...] Risk: CKD, age, NSTEMI, Hx CVA/TIA, DM2 -Conservation Officer: Previously [facility], pt has a [...] use - Followed by [facility], last seen in Jun 2024 - Treatment Hx: Tried oxybutynin, which was discontinued due to anticholinergic effect. Gemtesa was prohibitory expensive - Continue mirabegron as prescribed, advised to have drug holiday from mirabegron, resume when pt's symptoms worsen Assessment & Plan (02/04/2024 1:12 PM EDT): - in a setting of dementia, DM2, and SGLT-2 inhibitor use - Followed by [facility], last seen in November 2023 - Treatment Hx: Tried oxybutynin, which was discontinued due to anticholinergic effect. Gemtesa was not approved - Continue mirabegron as prescribed, advised to have drug holiday from mirabegron, resume when pt's symptoms worsen Assessment & Plan (09/10/2023 4:55 PM EDT): - in a setting of dementia, DM2, and SGLT-2 inhibitor use - Followed by [facility], last seen on 05/31/23. - Continue mirabegron as prescribed, advised to have drug holiday from mirabegron, resume when pt's symptoms worsen Assessment & Plan (05/08/2023 11:04 AM EDT): - in a setting of dementia, DM2, and SGLT-2 inhibitor use - Followed by Dr. Vallecillo, [facility] - Continue mirabegron as prescribed Assessment & Plan (01/07/2023 4:51 PM EST): - in a setting of dementia, DM2, and SGLT-2 inhibitor use - Followed by Dr. Vallecillo, [facility] - Continue mirabegron as prescribed Recurrent urinary [...] Assessment & Plan (01/17/2025 6:08 AM EST): -Move Coordinator: Dr. Martinez -Avoid nephrotoxic drugs and use renal dosing. -Recheck renal function today -On Jardiance, at low-dose, 10mg daily. Caution with UTI Assessment & Plan (02/04/2024 1:13 PM EDT): -Move Coordinator: Dr. Martinez -Baseline: 09/26/22 BUN 29; SCr 1.2, eGFR 43, AST 12, ALT 19, AP 91 -Avoid nephrotoxic drugs and use renal dosing. -Recheck renal function today -On Jardiance, at low-dose, 10mg daily. Assessment & Plan (09/10/2023 4:32 PM EDT): -Move Coordinator: Dr. Martinez, last seen in 2016 or 2018. Per caregiver, pt was discharged due to stability -Baseline: 09/26/22 BUN 29; SCr 1.2, eGFR 43, AST 12, ALT 19, AP 91 -Avoid nephrotoxic drugs and use renal dosing. -Recheck renal function today -On Jardiance, at low-dose, 10mg daily. Assessment & Plan (05/08/2023 11:04 AM EDT): -Move Coordinator: Dr. Martinez, last seen in 2017 or 2018. Per caregiver, pt was discharged due to stability -Baseline: 09/26/22 BUN 29; SCr 1.2, eGFR 43, AST 12, ALT 19, AP 91 -Avoid nephrotoxic drugs and use renal dosing. -Recheck renal function today -On Jardiance, at low-dose, 10mg daily. Assessment & Plan (01/07/2023 4:54 PM EST): -Move Coordinator: Dr. Martinez, last seen in 2017 or [...] Encounters Date Type Department Care Team Description 10/14/2025 Refill [facility] MEDICINE [address] [place] [address] Myah Singh MD 10/13/2025 Refill C MEDICINE [address] [place] [address] Myah Singh MD 08/09/2025 Refill [facility] MEDICINE [address] [place] [address] Myah Singh MD 08/07/2025 Orders Only GENERIC EXTERNAL DATA DEPARTMENT Provider, Generic External Data 08/04/2025 Refill [facility] MEDICINE [address] [place] [address] Myah Singh MD Type 2 diabetes mellitus with stage 3 chronic kidney disease, without long-term current use of insulin, unspecified whether stage 3a or 3b CKD ([facility]) 07/21/2025 Refill [facility] MEDICINE [address] [place], [place] [phone] Liliana Sears MD 07/21/2025 Refill [facility] MEDICINE [address] [place], [place] [phone] Myah Singh MD Allergic rhinitis, unspecified seasonality, unspecified trigger from Last 3 Months Immunizations Immunization Administration [...] Additional history exists Diabetes: Hemoglobin A1C 08/26/2025 03/2 025, 09/11/2023, 12/29/2022, Additional history exists Tobacco [...] or 3b CKD ([facility]) Dyslipidemia POCT GLYCOSYLATED HEMOGLOBIN (HGB A1C) Routine 09/11/2023 10:29 AM EDT Type 2 diabetes mellitus with stage 3 chronic kidney disease, without long-term current use of insulin, unspecified whether stage 3a or 3b CKD ([facility]) from Last 3 Months or Most Recently Relevant to Health Maintenance Results * Glucose, Whole Blood (08/07/2025 12:20 PM EDT) Glucose, Whole Blood 90 60 - 115 mg/dL [facility] Comment:METER #: [id number] 08/07/2025 12:2 0 PM EDT 08/07/2025 4:35 PM EDT Generic External Data Provider LAB BLOOD ORDERAB LES Final Result Performing Organization Address [facility] Co de Phone Number [facility] [address] [place] [phone] * SARS-CoV-2 RNA, Influenza A/B, and RSV RNA, Ql NAAT (08/07/2025 8:48 AM EDT) Influenza A PCR NEGATIVE Negative [facility] Influenza B PCR NEGATIVE Negative [facility] Resp Syncy Virus RNA Qual PCR NEGATIVE Negative [facility] SARS COV2 PCR NEGATIVE Negative [facility] Comment:All test results mus t [...] use by authorized laboratories.Testing performed on the [employer] GeneXpert utilizingreal-time RT-PCR.All SARS CoV2 and positive influenza A/B results arereported to [facility]. 08/07/2025 8:48 AM EDT 08/07/2025 8:51 AM EDT Generic External Data Provider LAB MICROBIOLOGY - GENERAL ORDERABLES Final Result Performing Organization Address [facility] Co de Phone Number [facility] [address] [place] [phone] [phone] * Lipid Panel with Reflex to Direct LDL (01/22/2024 12:20 PM EST) Triglycerides 130 <150 mg/dL [facility] Comment:Desirable Triglyceri de: less than 150 mg/dLBorderline High Triglyceride 150-199 mg/dLHigh Triglyceride: 200-499 mg/dLVery High Triglyceride: greater than or equal to 5OO mg/dL Cholesterol 109 <200 mg/dL [facility] Comment:Desirable Cholestero l: less than 200 mg/dLBorderline High Cholesterol: 200-239 mg/dLHigh Cholesterol: greater than 239 mg/dL LDL Cholesterol Calculated 41 <100 mg/dL [facility] Comment:Desirable LDL: less than 100 mg/dLNear Optimal/Above Optimal LDL: 110- 129 mg/dLBorderline High LDL: 130-159 mg/dLHigh LDL: 160-189 mg/dLVery High LDL: greater than or equal to 190 mg/dL HDL Cholesterol 42 >40 mg/dL [facility] Comment:Desirable HDL: great er than 40 mg/dL Note: This HDL assay may give artificially low results in patients with liver disease. Blood 01/22/2024 12:2 0 PM EST 01/22/2024 1:11 PM EST Myah Singh MD LAB BLOOD ORDERABLES Final Resul t [facility] [address] [place] [phone] * (ABNORMAL) POCT glycosylated hemoglobin (Hgb A1c) (09/11/2023 10:29 AM EDT) Hemoglobin A1C 6.2(A) 4.0 - 6.0 % QC Media Lot # [id number] Lot# Expiration Date Blood Capillary blood specimen / Unknown 09/11/2023 10:29 AM EDT Myah Singh MD POINT OF CARE TEST ENTER/EDIT OR DERABLES Final Result from Last 3 Months or Most Recently Relevant to Health Maintenance Insurance * Guarantor: Sienna Mendez Account Type Relation to Patient Date of Phone Billing Address Personal/Family Self 1935 [phone] [place] [address] [facility] LONG TERM OPTIONS (O D-SNP) * Guarantor: Sienna Mendez Account Type Relation to Patient Date of Phone Billing Address Personal/Family Self [phone] [place] [address] Care Teams Boat Deckhand Relationship Specialty Start Date End Date Myah Singh MD [address] [place] [address] [place] [address] PCP - General Family Medicine 11/08/12
--- OUTSIDE RECORDS SUMMARY | 2025-10-20 07:07 | XMS_ITS | Encounter Summary ---
Author Organization [employer] Address [address] [facility] [address] [place] [address] Care Team Providers Care Hall Cleaner Name Role Phone Myah Singh MD Primary Care Provider [phone] Reason for Visit * Reason Comments Med Refill Encounter Details Date Type Department Care Team (Late st Contact Info) Description 10/14/2025 Refill [facility] MEDICINE [address] [place], [place] [phone] Myah Singh MD [address] [place], [place] [phone] Social History Tobacco Use Types Packs/Day Years [...] as of this encounter Care Teams Hall Cleaner Relationship Specialty Start Date End Date Myah Singh MD [address] [place] [address] PCP - General Family Medicine 11/08/12 documented as of this encounter
--- OUTSIDE RECORDS SUMMARY | 2025-10-20 07:07 | XMS_ITS | Encounter Summary ---
Author Organization [facility] Address [address] [place] [address] Care Team Providers Care Ultimate Hoops Scoreboard Operator Name Role Phone Tony Arreola MD Primary Care Provider [phone] Encounter Details Date Type Department Care Team (Late st Contact Info) Description 11/29/2024 Lab Requisition [facility] - Main Lab [address] [place] [address] Tony Arreola MD [address] [facility] [address] [place], [address] Weakness; Unspecified dementia, unspecified severity, without [...] [facility] [address] [place] [address], * (ABNORMAL) Complete blood count (12/02/2024 7:21 AM EST) [facility] WBC 6.8 4.8 - 10.8 [...] LAB HEMETOLOGY METHOD 12/02/2024 10:57 AM EST [facility] LAB Blood Venous blood specimen / Unknown Venipuncture / Unknown 12/02/2024 7:21 AM EST 12/02/2024 10:33 AM EST us Tony Arreola MD LAB BLOOD ORDERABLES Final Resul t [facility] ([facility]) [facility] [address] [place] [address], documented in this encounter Visit Diagnoses Diagnosis Weakness Other malaise and fatigue Unspecified dementia, unspecified severity, without behavioral disturbance, psychotic disturbance, mood disturbance, and anxiety (CMS/HCC V24, CMS/HCC V28) documented in this encounter Care Teams Ultimate Hoops Scoreboard Operator Relationship Specialty Start Date End Date Tony Arreola MD [address] [place] [address] [address] [place], [address] PCP - General Family Medicine 12/14/24 documented as of this encounter
--- OUTSIDE RECORDS SUMMARY | 2025-10-20 07:07 | XMS_ITS | Encounter Summary ---
Author Organization [employer] Address [address] [facility] 7t [place] [address] Care Team Providers Care Paper Cutter Operator Name Role Phone Myah Singh MD Primary Care Provider [phone] Reason for Visit * Reason Comments Med Refill Encounter Details Date Type Department Care Team (Late st Contact Info) Description 05/22/2024 Refill [facility] [address] [place], [place] [phone] Myah Singh MD [address] [place], [place] [phone] Social History Tobacco Use Types Packs/Day Years [...] documented as of this encounter Care Teams Paper Cutter Operator Relationship Specialty Start Date End Date Myah Singh MD [address] [place] [address] PCP - General Family Medicine 11/08/12 [facility] 12/31/24 07/29/25 documented as of this encounter
--- OUTSIDE RECORDS SUMMARY | 2025-10-20 07:07 | XMS_ITS | Data Portability ---
Author Organization [facility], Main Office Address [address] [facility], [address] [place] [address] Care Team Providers Care Manager Assisted Living Name Role Phone [facility] OTHER Assessment No assessment recorded. Plan of [...] and Address Organization Details Recorded Time Asthma 303250202 Active 2017 ANGELITA VANG [address] [facility], [address], [place], [address] , [facility] [employer] [facility] 8 15:12:32 Dementia 59886918 Active 2017 ANGELITA VANG [address] [facility], [address], [place], [address] , [facility] [employer] 8 15:12:53 Depressiv e disorder 47103712 Active 2017 ANGELITA VANG [address] [facility], [address], [place], [address] , [facility] [employer] 8 15:13:06 Coronary arteriosc lerosis 89025416 Active 2017 history of NSTEMI ANGELITA VANG [address] [facility], [address], [place], [address] , [facility] [employer] 8 15:13:24 Hyperlipi demia 70343203 Active 2017 ANGELITA VANG [address] [facility], [address], [place], [address] , [employer] [facility] 8 15:14:00 Essential hypertens ion 54581362 Active 2017 ANGELITA VANG [address] [facility], [address], [place], [address] , [employer] [facility] 8 15:14:57 History of cerebrova scular accident 328912541 Active 2017 right sided weakness ANGELITA VANG [address] [facility], [address], [place], [address] , [employer] [facility] 8 15:15:19 Influenza 1589391 Active 2017 ANGELITA VANG [address] 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, [address], [place], [address] , [employer] [facility] 8 16:05:54 Osteoporo sis 54943114 Active 2017 ANGELITA VANG [address] [facility], [address], [place], [address] , [employer] [facility] 8 16:06:06 Gastroeso phageal reflux disease 566271501 Active 2017 ISABELLE ALYSSA DURAL MECHANIC [address] [place] [address], [address], [place], [address] , [employer] [facility] 8 16:08:23 Asthenia 43763754 Active 2017 Thais Rocha MD [address] [place] [address], [facility] [address], [place], [address] , [employer] [facility] 8 13:54:57 Acute kidney injury 74680195 Active 2017 Thais Rocha MD [address] [place] [address], [address], [place], [address] , [facility] 8 14:30:45 Type 2 diabetes mellitus 80097750 Active 2023 Not Available [facility] 5 10:33:31 Muscle weakness 80946034 Active 2023 Not Available [facility] 5 10:33:31 Difficult y walking 717770840 Active 2023 Not Available [facility] 5 10:33:32 Dyspnea 593064284 Active 2023 Not Available [facility] 5 10:33:32 Anxiety disorder 691604063 Active 2023 Not Available [facility] 5 10:33:33 Insomnia 511669998 Active 2023 Not Available [facility] 5 10:33:34 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 20471221301 9100 Active 2023 Not Available [facility] 5 10:33:34 Cerebrova scular disease 48694143 Active 2023 Not Available [facility] 5 10:33:35 Fall Active 2023 Not Available [facility] 5 10:33:36 Allergic contact dermatiti s 895645934 Active 2023 Not Available [facility] 5 10:33:37 Diaphragm atic hernia 38899964 Active 2023 Not Available [facility] 5 10:33:38 Constipat ion 80953575 Active 2023 Not Available [facility] 5 10:33:38 Coronavir us infection 194000170 Active 2023 Not Available [facility] 5 10:33:39 Dementia associate d with another disease 648325182 Active 2023 Not Available [facility] 5 10:33:39 Chronic kidney disease stage 3 086295770 Active 2023 Not Available [facility] 5 10:33:39 Chronic kidney disease stage 3A 146967982 Active 2024 Tony Arreola MD [address] [facility], [address], [place], [address] , [facility] 5 08:58:43 Cirrhosis of liver 35034892 Active 2024 Tony Arreola MD [address] [facility], [address], [place], [address] , [facility] 5 08:58:50 Aortic valve stenosis 25600518 Active 2024 Tony Arreola MD [address] [facility], [address], [place], [address] , [facility] [employer] 5 08:59:06 Diabetes mellitus 39264375 Active 2024 Tony Arreola MD [address] [facility], [address], [place], [address] , [facility] [employer] 5 08:59:17 Delusiona l disorder 93351822 Active 2024 Not Available [facility] 5 12:34:52 Problem Notes None recorded. Medical Equipment None Reported. Allergies Allergen ID Allergen Name Allergen Category Reaction Reaction Severity Criticality Documentation Date Start Date Code Code System Note Provider Name and Address Organization Details Recorded Time 42574 Reglan medicatio n Not available Not available Not available 12/19/20242023 9230 RxNorm Not Available [facility] 5 10:33:44 9455 tetracain e medicatio n Not available Not available Not available 01/03/20182023 01519 RxNorm Not Available [facility] 5 10:33:44 9456 benzocain e medicatio n Not available Not available Not available 01/03/20182023 1399 RxNorm Not Available [facility] 5 10:33:44 9457 butamben medicatio n Not available Not available Not available 01/03/20182023 04997 RxNorm Not Available [facility] 5 10:33:44 9458 morphine medicatio n Not available Not available Not available 01/03/20182023 7052 RxNorm Not Available [facility] 5 10:33:44 9459 metoclopr amide Not available Not available Not available Not available 01/03/2018 6915 RxNorm ISABELLE SHAH, DURAL MECHANIC [address] [facility], [address], [place], [address], [facility] [employer] 8 15:01:21 9460 ceftazidi me anhydrous medicatio n Not available Not available Not available 01/03/20182023 60102 84 RxNorm Not Available [facility] [...] Available Not Available Not Avai lable Acid Retail Loss Prevention Specialist (omeprazole ) 20 mg capsule,del ayed release [...] 12/02/2024 122/57 mm[Hg] Tony Arreola MD [address] [facility], [address], [place], [address], [employer] [facility] 12/02/2024 08:50:04 Date Recorded Heart rate Respiratory rate Body temperature Oxygen saturation Systolic And Diastolic Provider Name and Address Organization Details Last Updated DateTime 5 67 /min 14 /min 97.9 [degF] 96 % 102/49 mm[Hg] HAKEEM JOHNSON NP [address] [facility], [address], [place], [address], [employer] [facility] 5 14:47:00 Date Recorded Body height Body mass index (BMI) Body weight Heart rate Respiratory rate Body temperature Oxygen saturation Systolic And Diastolic Provider Name and Address Organization Details Last Updated DateTime 5 152.4 cm 32.9 kg/m2 11843.9 6 g 72 /min 20 /min 97.3 [degF] 95 % 114/63 mm[Hg] Thais Rocha MD [address] [facility], [address], [place], [address], [employer] [facility] 5 18:57:01 Social History Question Answer Notes LastModified by Organizat ion Details LastModified Time Tobacco Smoking Status Former Smoker Thais Rocha MD [address] [facility], [address], [place], [address], [employer] [facility] 01/04/2018 14:12:51 Do You Have An [...] Do You Have A Medical Power Of General Scrap Worker? Yes Information not available 01/04/2018 What Was [...] ICD10 Code Diagnosis IMO Codes Diagnosis Note 50302 ANGELITA VANG MICHELLE [address] [place] [address] 01/03/2018 15:00:09 01/12/2018 16:14:28 Influenza 2871075 J10.89 [facility] Essential hypertension 40974817 I10 lisinopril 20 mg qdlasix 20 mg qdnorvasc 5 mg qdmonitor b/p and labs Hyperlipidemia 54274806 E78.2 atorvastat in 20 mg qdmonitor labs Depressive disorder 3548 9007 F32.0 prozac 40 mg qdremeron 15 mg qdtrazodon e 50 mg qdhaldol 1 mg qdneg consult prnmonitor mood Dementia 55092835 F02.80 namenda 10 mg bidaricept 10 mg qdmonitor mood Coronary arteriosclerosis 41076615 I25.10 ASA 81 mg qdmonitor Osteoporosis 96845478 M8 1.0 calcium carbonate/ vit. D3 600/vit d bidmonitor labs Bladder mu scle dysfunction - overactive 043846914 N32.81 myrbetriq 50 mg qdincontin ent of urinemonit or History of cerebrovascular accident 606118745 Z86.73 right sided weaknessmo nitor Asthma 737313299 J45.20 zyrtec 10 mg qdmonitor resp status Gastroesop hageal reflux disease 413135411 K21.9 omeprazole 40 mg qdmonitor Asthenia 16814461 R53.1 PT/OT eval and [facility]ambul [facility] [address] Thais Rocha MD [address] [place] [address] 01/04/2018 13:51:14 01/12/2018 16:19:02 Asthenia 95610413 R53.1 Decondrenetta david after acute illness, needs PT/OT for strengthen ing and gait training. At baseline ambulates with walker. Anticipate less than 30 day stay and return home. Influenza 1784155 J10.89 Positive for influenza A in hospital, completed course of Tamiflu.Mo nitor Essential hypertension 30125117 I10 Stable on lisinopril 20 mg qd, lasix 20 mg qd and norvasc 5 mg qd.monitor BP and labs Hyperlipidemia 51065054 E78.2 Continue atorvastat in 20 mg qdmonitor chol with PCP. Depressive disorder 3548 9007 F32.0 Continue prozac 40 mg qd, remeron 15 mg qd, trazodone 50 mg qd and haldol 1 mg qd. Monitor mood and consider NEG consult Dementia 93037677 F02.80 Continue namenda 10 mg bid and aricept 10 mg qd. Expect continued decline. Provide supportive care. Coronary arteriosclerosis 49128451 I25.10 Continue ASA 81 mg qd and statin. F/U with Cardio prn Osteoporosis 99767035 M8 1.0 Continue calcium carbonate/ vit. D3 600/vit d bid Bladder mu scle dysfunction - overactive 724701295 N32.81 Continue myrbetriq 50 mg qdmonitor History of cerebrovascular accident 122828346 Z86.73 Residual right sided weakness. PT/OT as above. Follow for recurrence . Asthma 445610386 J45.20 Continue zyrtec 10 mg qdmonitor resp status Gastroesop hageal reflux disease 967127545 K21.9 No current sxs, continue omeprazole 40 mg qdmonitor Acute kidney injury 1466 9001 N17.8 Improved in hospital, not 100% nl. Will recheck today. May have baseline mild CRF. 568[address] ANGELITA VANG [facility] MICHELLE [address] [place] [address] [place] [address] 01/08/2018 13:49:05 01/12/2018 16:24:28 Cough 84935233 R05 bilateral lungs with wheezes and rhonchi throughout cough noted but non productive had flu in hospitalPP D was planted and is 30 mmchest x-ray orderedduo nebs ordered qid x3 days and prnmonitor for worsening symptoms 654[address] ANGELITA VANG [facility] MICHELLE [address] [place] [address] 01/10/2018 13:57:28 01/12/2018 16:27:43 Cough 73688915 R05 continues with cough but now has yellow sputumstat es she feels betterbila teral lungs are clear nowcontinu e to monitor 64788 Tony Arreola MD [address] [address] 01/15/2018 10:39:11 01/15/2018 13:20:57 Acute low back pain 968388889 M54.5 x ray L-S spineproba ble mild left sacroillii tisPT OT eval and treattylen ol for paincontin ue to monitorcon isder SI brace 89646 ANGELITA VANG [facility] MICHEL[address] [address] 01/24/2018 13:45:00 01/25/2018 11:35:41 Dementia 27266782 F02.80 namenda 10 mg bidaricept 10 mg qdfollow up with PCP Hyperlipidemia 67700174 E78.2 atorvastat in 20 mg qdfollow up with PCP Essential hypertension 19723428 I10 lisinopril 20 mg qdlasix 20 mg qdnorvasc 5 mg qdfollow up with PCP Gastroesop hageal reflux disease 719668197 K21.9 omeprazole 40 mg qdfollow up with PCP Osteoporosis 13253504 M8 1.0 calcium carbonate/ vit. D3 600/vit d bidtylenol prn pain follow up with PCP Depressive disorder 3548 9007 F32.0 prozac 40 mg qdremeron 15 mg qdtrazodon e 50 mg qdhaldol 1 mg qdfollow up with PCP Asthma 424024730 J45.20 zyrtec 10 mg qdfollow up with PCP Coronary arteriosclerosis 44214566 I25.10 ASA 81 mg qdfollow up with PCP Bladder mu scle dysfunction - overactive 272942772 N32.81 myrbetriq 50 mg qdfollow up with PCP History of cerebrovascular accident 806042550 Z86.73 right sided weaknessfo llow up with PCP [id number] Tony Arreola MD [facility] [address] [place] [address] 12/02/2024 08:34:30 12/03/2024 11:00:58 Asthenia 04294562 R53.1 PT OT Eval and treatmonit or fall risk and need for increased support in community Essential hypertension 07017820 I10 lisinopril 20 mg qdnorvasc 5 mg qdmonitor bp and need to titrate Hyperlipidemia 99505301 E78.2 lipitor 20 mg qdcontinue d Depressive disorder 3548 9007 F32.0 prozac 40 mg qdremeron 15 mg qdmonitor moodsee above Dementia 66357225 F02.80 baseline dementiain voke [facility] - granddaugh tercontinu e supportive caremonito r for behaviorsp sych eval prnaricept 10 mg qdnamenda 10 mg bidof note currently on haldol qd - will await psych rec Coronary arteriosclerosis 92866877 I25.10 lipitor 20 mg qdasa 81 mg qdmonitor forupdate cards with concerns Gastroesop hageal reflux disease 182337190 K21.9 omeprazole 40 mg qdmonitor for sx relief COVID-19 922410609 U07.1 limited informatio n will request dc summary appears dx with covid now completed treatment Diabetes mellitus 978816 09 E11.9 carrying dx added to PMHjardian ce 10 mg qdmonitor blood glucose prn Aortic valve stenosis 60 193417 I35.0 limited informatio n availabler equest notes from PCP Cirrhosis of liver 007 K74.69 limited informatio n availabler equest notes from PCP Chronic ki dney disease stage 3A 365591844 N18.31 monitor renal functionav oid nephrotoxi c meds as ablenephro consult prn [id number] HAKEEM JOHNSON, SHAHZAD [facility] [address] [place] [address] 12/09/2024 14:46:28 12/11/2024 08:32:16 Asthenia 42469717 R53.1 PT OT Eval and treatmonit or fall risk and need for increased support in community Dementia 69649419 F02.80 baseline dementiain voke HCP - granddaugh tercontinu e supportive caremonito r for behaviorsp sych eval prnaricept 10 mg qdnamenda 10 mg bidof note currently on haldol qd - will await psych rec COVID-19 112699685 U07.1 limited informatio n appears dx with covid now completed treatmentm onitor for sequelae Essential hypertension 75777558 I10 BP soft the past week or so.CBC today stable, chem pendingMai ntain fluidsCurr ently on:lisinop ril 20 mg qdnorvasc 5 mg qd - reduce to 2.5 mg qdmonitor bp and need to titrate Hyperlipidemia 82448056 E78.2 Continue lipitor 20 mg qdConsider stopping, ? benefit vs, risk in frail elder Depressive disorder 3548 9007 F32.0 prozac 40 mg qdremeron 15 mg qdmonitor moodsee above Coronary arteriosclerosis 32950040 I25.10 Continue:l ipitor 20 mg qdasa 81 mg qdmeds for BP controlmon itor VS, CP statusupda te cards with concerns Gastroesop hageal reflux disease 661782699 K21.9 Continue omeprazole 40 mg qdmonitor for sx relief Diabetes mellitus 445489 09 E11.9 carrying dx added to PMHjardian ce 10 mg qdmonitor blood glucose - bid x 7 days, then re-eval.ch yovany A1C prn Aortic valve stenosis 60 937638 I35.0 limited informatio n availabler equest notes from PCP Cirrhosis of liver 007 K74.69 limited informatio n availabler equest notes from PCP Chronic dney disease stage 3A 251715830 N18.31 monitor renal functionav oid nephrotoxi c meds as ablenephro consult prn [id number] Thais Rocha MD [facility] [address] [place] [address] 12/19/2024 18:31:17 12/20/2024 16:13:52 Diabetes mellitus 64163639 E11.9 With low sugars since here.Will change fingerstic ks to fasting on Mon & thurs and prn (compromis e with granddaugh ter from my preference of M/W/F).Con tinue Jardiance 10 mg qd. 410600 FLO LEE, SHAHZAD-C RICARDA [address] [place] [address] 12/24/2024 09:08:15 12/31/2024 08:39:05 Diabetes mellitus 74863577 E11.9 With low sugars since here.Myra nue Jardiance 10 mg qd.monitor with VNAconside r decrease in jardiance if BS remains < 100 given age of 89 Asthenia 64326652 R53.1 continue PT OTworking on doing stairsfami ly very supportive VNA services in place per Dementia 05378494 F02.80 baseline dementiain voke HCP - granddaugh teraricept 10 mg qdnamenda 10 mg bidhaldol once daily COVID-19 266509312 U07.1 resolved Essential hypertension 92043150 I10 improved with reduced dose of amlodipine lisinopril 20 mg qdnorvasc 2.5 mg qdmonitor bp and consider decrease outptpermi ssive BP goals for frail elderly of < 160/ 90 Hyperlipidemia 61935826 E78.2 Continue lipitor 20 mg qdlipids yearly outpt Depressive disorder 3548 9007 F32.0 prozac 40 mg qdremeron 15 mg qdmonitor mood outpt Coronary arteriosclerosis 19150196 I25.10 Continue:l ipitor 20 mg qdasa 81 mg qdmeds for BP control Gastroesop hageal reflux disease 995823491 K21.9 Continue omeprazole 40 mg qdmonitor for sx relief outpt Aortic valve stenosis 60 304577 I35.0 limited informatio n availablen o CP or sob here Cirrhosis of liver 007 K74.69 limited informatio n available Chronic ki dney disease stage 3A 367678230 N18.31 monitor renal function, stable 12/23 labsavoid nephrotoxi c meds as ablenephro consult prn Conjunctivitis 5199981 H 10.9 erythro ophthalmic qid x 7 daysmonito r for improvemen t [id number] MICHAEL RAMOS [facility] [address] [place] [address] 12/27/2024 09:21:35 12/31/2024 09:41:18 Diabetes mellitus 61040337 E11.9 With low sugars since here.Myra nue Jardiance 10 mg qd.monitor with VNAconside r decrease in jardiance if BS remains < 100 given age of 89f/up with pcp Asthenia 77040952 R53.1 completed STR stayable to do stairshas ENVIRONMENTAL EMERGENCIES ASSISTANT 6 hr/day at homefamily very supportive VNA services in place per SWf/up with pcp Dementia 82489609 F02.80 baseline dementiain [facility] tercontinu e supportive care with TELEVISION PRODUCER 6 hr per day at homearicep t 10 mg qdnamenda 10 mg bidhaldol once dailyf/up with pcp COVID-19 310169826 U07.1 resolvedf/ up with pcp Essential hypertension 26501962 I10 improved with reduced dose of amlodipine lisinopril 20 mg qdnorvasc 2.5 mg qdmonitor bp and consider decrease outptpermi ssive BP goals for frail elderly of < 160/ 89f/up with pcp Hyperlipidemia 97768574 E78.2 Continue lipitor 20 mg qdlipids yearly outptf/up with pcp Depressive disorder 3548 9007 F32.0 prozac 40 mg qdremeron 15 mg qdmonitor mood outptf/up with pcp Coronary arteriosclerosis 32581918 I25.10 Continue:l ipitor 20 mg qdasa 81 mg qdmeds for BP controlf/u p with pcp Gastroesop hageal reflux disease 698754347 K21.9 Continue omeprazole 40 mg qdmonitor for sx relief outptf/up with pcp Aortic valve stenosis 60 180852 I35.0 limited informatio n availablen o CP or sob heref/up with pcp Cirrhosis of liver 90176 007 K74.69 limited informatio n availablef /up with pcp Chronic ki dney disease stage 3A 599666402 N18.31 monitor renal function, stable 12/23 labsavoid nephrotoxi c meds as ablenephro consult prnf/up with pcp Conjunctivitis 5515898 H 10.9 erythro ophthalmic qid x 7 [...] Gonzalez Member ID Guarantor Name 12/31/2024 1 [facility] - DOS ON OR AFTER 2023 - MEDICARE ADVANTAGE [place] (MEDICARE REPLACEMENT/ADV ANTAGE - PPO) Sienna Andrea [id number] Elena Hurtado 12/02/2024 1 [facility] - DOS PRIOR TO 2023 - DUAL ELIGIBLE (MEDICARE REPLACEMENT/ADV ANTAGE - HMO) Sienna Mendez [id number] Elena Hurtado 12/31/2024 2 [place] [facility] Sienna Andrea [id number] Elena Hurtado Notes Date Note Type Note [...] therapy eval and treat Tony Arreola MD [address] [place] [address], [address], [place], [address], [facility] [employer] 12/02/2024 09:20:00 12/09/2024 text/html Sienna is seen [...] issues reported by nsg. Case discussed with ENVIRONMENTAL EMERGENCIES ASSISTANT, who reports she did not eat as well today compared to other days. No other concerns. VSS, BP on the soft side the past week.Labs stable, chem pending today.No BS documented PMH: dementia , crf stage 3, cirrhosis, , dm, htn, cad, gerd, hld, depression, hx CVA HAKEEM JOHNSON NP [address] [facility], [address], [place], [address], [employer] 12/09/2024 15:01:58 12/19/2024 text/html I am asked to see this 89 yo ukrainian speaking woman rayshawn because her granddaughter is [...] depression, and dementia. Thais Rocha MD [address] [facility], [address], [place], [address], [employer] 12/19/2024 19:10:59 12/24/2024 text/html Patient is an [...] GERD, depression, and dementia. MICHAEL RAMOS [address] [facility], [address], [place], [address], [employer] 12/29/2024 16:21:25 12/27/2024 text/html Patient is an [...] and received 6 hrs per day of ENVIRONMENTAL EMERGENCIES ASSISTANT care. Seen today and she is medically clear for dc home with meds and services. Her PMH includes HTN, depression, hx of CVA, CAD s/p NSTEMI, cirrhosis, asthma, HLD, CKD stage 3B, GERD, depression, and dementia. MICHAEL RAMOS [address] [facility], [address], [place], [address], [employer] 12/27/2024 09:38:55 OBGyn Episode No OBEpisode recorded.
== END 2025-10-20 06:51 | disposition home or self-care (01) ==
LOC: HO.MMNH1L 06:50
PROVIDERS: Visit Provider Physician Assistant Medical
DX: Z13.89 Encounter for screening for other disorder (principal)
CPT/HCPCS: 36415; 80048; 85025

== ENCOUNTER 2025-10-27 08:51 | Outpatient (REF) | payer OTHER, SELFPAY ==
[2025-10-27 07:33] LABS: MANUAL DIFF FLAG NO
[2025-10-27 08:03] LABS: Hematocrit 39.4 % (37.0-47.0); Hemoglobin 12.6 g/dl (12.0-16.0); Imm Gran Abs Auto 0.01 X10*3/uL (0.00-0.03); Imm Gran Pct Auto 0.2 % (0.0-0.4); Lymphocytes Absolute Auto 1.2 X10*3/uL (1.2-4.9); Mean Corpuscular HGB Conc 32.0 g/dl (31.0-35.0); Mean Corpuscular Hemoglobin 29.6 pg (27.0-33.0); Mean Corpuscular Volume 92.5 fL (80.0-98.0); NRBC Abs Auto 0.000 X10*3/uL (0.0-0.012); NRBC Pct Auto 0.0 /100WBC (0.0-0.2); Platelet Count 137 X10*3/uL (160-400); Red Blood Count 4.26 X10*6/uL (4.20-5.50); White Blood Count 5.6 X10*3/uL (4.8-10.8)
[2025-10-27 08:58] LABS: Alanine Aminotransferase 10 U/L (0-31); Albumin Level 3.4 g/dL (3.5-5.0); Alkaline Phosphatase 68 U/L (39-117); Anion Gap 12 (12-20); Aspartate Amino Transferase 28 U/L (5-31); Blood Urea Nitrogen 21 mg/dL (9-16); Calcium 9.3 mg/dL (8.4-10.2); Carbon Dioxide 25 mmol/L (22-29); Chloride 112 mmol/L (96-108); Estimated Glomerular Filt Rate 60; Potassium 4.0 mmol/L (3.3-5.1); Sodium 145 mmol/L (135-145); Total Protein 6.4 g/dL (6.5-8.0)
--- OUTSIDE RECORDS SUMMARY | 2025-10-27 09:56 | XMS_ITS | Encounter Summary ---
Author Organization [employer] Address [address] [place] [address] Care Team Providers Care Case Fitter Name Role Phone Tony Arreola MD Primary Care Provider [phone] Encounter Details Date Type Department Care Team (Late st Contact Info) Description 12/21/2024 Lab Requisition [facility] - Main Lab [address] [place] [address] Tony Arreola MD 38 [facility] [address] [place], [phone] Weakness; Unspecified dementia, unspecified severity, without [...] mmol/L LAB CHEMISTRY METHOD 12/23/2024 12:53 PM [facility] Potassium 4.2 3.5 - 5.5 mmol/L LAB CHEMISTRY METHOD 12/23/2024 12:53 PM [facility] Chloride 111(H) 96 - 110 mmol/L LAB CHEMISTRY METHOD 12/23/2024 12:53 PM [facility] CO2 28 21 - 32 mmol/L LAB CHEMISTRY METHOD 12/23/2024 12:53 PM [facility] Anion Gap 5 3 - 11 LAB CHEMISTRY METHOD 12/23/2024 12:53 PM [facility] Glucose 84 70 - 100 mg/dL LAB CHEMISTRY METHOD 12/23/2024 12:53 PM [facility] BUN 22 5 - 25 mg/dL LAB CHEMISTRY METHOD 12/23/2024 12:53 PM [facility] Creatinine 1.25(H) 0.50 - 1.10 mg/dL LAB CHEMISTRY METHOD 12/23/2024 12:53 PM [facility] eGFR 42(L) >=60 mL/min/1. 73m2 LAB CHEMISTRY METHOD 12/23/2024 12:53 PM [facility] Comment:Calculation based on the Chronic Kidney Disease Epidemiology Collaboration (CKD-EPI) equation refit without adjustment for race. BUN/Creatinine Ratio 17.6 LAB CHEMISTRY METHOD 12/23/2024 12:53 PM [facility] Calcium 9.3 8.5 - 10.5 mg/dL LAB CHEMISTRY METHOD 12/23/2024 12:53 PM [facility] Blood Venous blood specimen / Unknown Venipuncture / Unknown 12/23/2024 6:50 AM EST 12/23/2024 10:55 AM EST us Tony Arreola MD LAB BLOOD ORDERABLES Final Resul t [facility] [address] [place] [address], * (ABNORMAL) Complete blood count (12/23/2024 6:50 AM EST) [facility] WBC 6.0 4.8 - 10.8 K/mcL LAB HEMETOLOGY METHOD 12/23/2024 12:49 PM [facility] RBC 4.70 3.80 - 4.80 M/mcL LAB HEMETOLOGY METHOD 12/23/2024 12:49 PM [facility] Hemoglobin 13.4 11.5 - 16.0 g/dL LAB HEMETOLOGY METHOD 12/23/2024 12:49 PM [facility] Hematocrit 43.6 35.0 - 47.0 % LAB HEMETOLOGY METHOD 12/23/2024 12:49 PM [facility] MCV 93.6 79.0 - 98.0 FL LAB HEMETOLOGY METHOD 12/23/2024 12:49 PM [facility] MCH 28.8 27.0 - 32.0 pcg LAB HEMETOLOGY METHOD 12/23/2024 12:49 PM [facility] MCHC 30.7(L) 32.0 - 37.0 g/dL LAB HEMETOLOGY METHOD 12/23/2024 12:49 PM [facility] RDW 14.8 11.0 - 15.0 % LAB HEMETOLOGY METHOD 12/23/2024 12:49 PM [facility] Platelets 142 130 - 400 K/mcL LAB HEMETOLOGY METHOD 12/23/2024 12:49 PM [facility] MPV 12.0(H) 7.0 - 11.0 FL LAB HEMETOLOGY METHOD 12/23/2024 12:49 PM [facility] NRBC 0.0 <1.0 % LAB HEMETOLOGY METHOD 12/23/2024 12:49 PM [facility] NRBC Absolute 0.00 <0.10 K/mcL LAB HEMETOLOGY METHOD 12/23/2024 12:49 PM EST [facility] Blood Venous blood specimen / Unknown Venipuncture / Unknown 12/23/2024 6:50 AM EST 12/23/2024 10:55 AM EST Tony Arreola MD LAB BLOOD ORDERABLES Final Resul t [facility] [address] [place] [address], documented in this encounter Visit Diagnoses Diagnosis Weakness Other malaise and fatigue Unspecified dementia, unspecified severity, without behavioral disturbance, psychotic disturbance, mood disturbance, and anxiety (CMS/HCC V24, CMS/HCC V28) documented in this encounter Care Teams Case Fitter Relationship Specialty Start Date End Date Tony Arreola MD [address] [place] [address], [phone] PCP - General Family Medicine 12/14/24 documented as of this encounter
--- OUTSIDE RECORDS SUMMARY | 2025-10-27 09:56 | XMS_ITS | Encounter Summary ---
Author Organization [employer] Address [address] [facility] 7t [place] [address] Care Team Providers Care Sweeper Driver Name Role Phone Myah Singh MD Primary Care Provider [phone] Encounter Details Date Type Department Care Team (Late st Contact Info) Description 01/30/2023 Telephone [facility] MEDICINE [address] [place], [place] [phone] Myah Singh MD [address] [place], [place] [phone] Social History Tobacco Use Types Packs/Day Years [...] on filedocumented in this encounter Care Teams Sweeper Driver Relationship Specialty Start Date End Date Myah Singh MD [address] [place], [place] [phone] PCP - General Family Medicine 11/08/12 [facility] 12/31/24 07/29/25 documented as of this encounter
--- OUTSIDE RECORDS SUMMARY | 2025-10-27 09:56 | XMS_ITS | Encounter Summary ---
Author Organization [employer] Address 75 [facility] 7t [place] [address] Care Team Providers Care Director Of Student Affairs Name Role Phone Myah Singh MD Primary Care Provider [phone] Reason for Visit * Reason Comments Med Refill Encounter Details Date Type Department Care Team (Late st Contact Info) Description 05/22/2024 Refill [facility] MED & PEDS [address] [place], [place] [phone] Myah Singh MD [address] [place], [place] [phone] Social History Tobacco Use Types Packs/Day Years [...] documented as of this encounter Care Teams Director Of Student Affairs Relationship Specialty Start Date End Date Myah Singh MD [address] [place] [address] PCP - General Family Medicine 11/08/12 [facility] 12/31/24 07/29/25 documented as of this encounter
--- OUTSIDE RECORDS SUMMARY | 2025-10-27 09:56 | XMS_ITS | Encounter Summary ---
Author Organization [employer] Address 75 [facility] 7t [place] [address] Care Team Providers Care Match Up Worker Name Role Phone Myah Singh MD Primary Care Provider Encounter Details Date Type Department Care Team ([facility] st Contact Info) Description 03/26/2025 Telephone [facility] MEDICINE [address] [place], [place] [phone] Myah Singh MD [address] [place], [place] [phone] Social History Tobacco Use Types Packs/Day Years [...] documented as of this encounter Care Teams Match Up Worker Relationship Specialty Start Date End Date Myah Singh MD [address] [place] [phone] PCP - General Family Medicine 11/08/12 [facility] 12/31/24 07/29/25 documented as of this encounter
--- OUTSIDE RECORDS SUMMARY | 2025-10-27 09:56 | XMS_ITS | Clinical Summary ---
Author Organization [employer] Address 75 [facility] 7t [place] [address] Care Team Providers Care Rn Occupational Name Role Phone Myah Singh MD Primary Care Provider [phone] Allergies Active Allergy Reactions Criticality Noted Date [...] IN THE EVENING 30 tablet 3 5 12:47 PM EST 07/22/20 25 Active aspirin (Aspirin Low Dose) 81 MG EC tablet TAKE 1 TABLET BY MOUTH IN THE MORNING. 30 tablet 3 07/22/20 25 Active FREESTYLE LITE test stripIndication s:Type 2 diabetes mellitus with stage 3 chronic kidney disease, without long-term current use of insulin, unspecified whether stage 3a or 3b CKD ([facility]) TEST BLOOD SUGAR DAILY AND NEEDED 100 each 10 5 11:03 AM EST 08/05/20 25 Active Alcohol Swabs (Ultra-Care Alcohol Prep Pads) 70 % pads USE DIRECTED TO CLEAN ARE PRIOR TO FINGER STICK 100 each 11 5 12:47 PM EST 10/14/20 25 Active cetirizine (ZyrTEC) 5 MG [...] PM EDT): -Oct 2015 -Previously following with [facility], upcoming appt -Continue risk factor mangement Assessment & Plan (01/07/2023 4:34 PM EST): -Oct 2015 -Previously following with [facility], upcoming appt -Continue risk factor mangement [...] cm2. Mild aortic valve regurgitation. -Seen by cab driver, Dr. Garcia in [facility], on 07/27/23, since she is not a [...] cm2. Mild aortic valve regurgitation. -Seen by cab driver, Dr. Garcia in [facility], on 07/27/23, since she is not a [...] cm2. Mild aortic valve regurgitation. -Seen by cab driver, Dr. Garcia in [facility], on 07/27/23, since she is not a [...] -Pt has an upcoming appt with her cab driver Assessment & Plan (01/07/2023 5:17 PM EST): - Most recent TTE 10/14/22: There is mild calcification of the aortic valve. There is moderate aortic valve stenosis. The peak aortic gradient is 33 mmHg.The mean gradient is 16 mmHg. There is mild aortic valve regurgitation. -Pt has loud murmur consistent with aortic stenosis -NSTEMI in 2014 -Pt has an upcoming appt with her cab driver Anemia 01/07/2023 Assessment & Plan (01/07/2023 5:24 PM EST): - anemia of chronic disease (CKD, cirrhosis) - continue ferrous sulfate - check lab Diabetes mellitus, type 2 12/28/2022 Overview (04/07/2025): Frequent utis from jardiance Assessment & Plan (05/06/2025 11:29 AM EDT): Blood sugars are in range (90-110)without jardance, pt grandaughter and DIAGNOSTIC TECH deny any swelling, sob, orthopnea edema or [...] Plan (01/07/2023 5:06 PM EST): - Dx 2022 - Hgb A1C 6.0% on 12/28/22 - [...] Plan (01/17/2025 5:56 AM EST): -Following with [facility] Sleep medicine clinic, last seen in January [...] 05/21/2015 Severe major depression with psychotic features ([facility]/HCC) 02/23/2015 Assessment & Plan (01/17/2025 6:11 AM EST): - continue fluoxetine, trazodone, and mirtazapine as prescribed by psychiatrist. Thrombocytopenia 03/27/2013 Assessment & Plan (01/17/2025 6:10 AM EST): - in a setting of cirrhosis, compensated - monitor periodically Osteopenia 01/07/2013 Anxiety 12/10/2012 Dementia ([facility]) 12/10/2012 Assessment & Plan (01/17/2025 5:58 AM EST): -multifactorial: Alzeheimer's; Hx CVA and TIA; hx COVID; depression / anxiety -following with Dr. Estevez, neurologist, last seen in Dec 2021, and psychiatrist Dr. Diaz -continue current medications prescribed by both neurologist and psychiatrist -it seems like patient was seeing psychiatrist while staying in the senior care -work on risk factor management -reviewed safety [...] Risk: CKD, age, NSTEMI, Hx CVA/TIA, DM2 -Pharmaceutical Compounding Supervisor: Previously [facility], pt has a new appt on 01/23/23 [...] Risk: CKD, age, NSTEMI, Hx CVA/TIA, DM2 -Pharmaceutical Compounding Supervisor: Previously [facility] pt has a new appt on 01/23/23 [...] Risk: CKD, age, NSTEMI, Hx CVA/TIA, DM2 -Pharmaceutical Compounding Supervisor: Previously [facility] pt has a new appt on 01/23/23 [...] Risk: CKD, age, NSTEMI, Hx CVA/TIA, DM2 -Pharmaceutical Compounding Supervisor: Previously [facility] pt has a new appt on 01/23/23 [...] Risk: CKD, age, NSTEMI, Hx CVA/TIA, DM2 -Pharmaceutical Compounding Supervisor: Previously [facility], pt has a new appt on 01/23/23 [...] use - Followed by [facility], last seen in Jun 2024 - Treatment Hx: Tried oxybutynin, which was discontinued due to anticholinergic effect. Gemtesa was prohibitory expensive - Continue mirabegron as prescribed, advised to have drug holiday from mirabegron, resume when pt's symptoms worsen Assessment & Plan (02/04/2024 1:12 PM EDT): - in a setting of dementia, DM2, and SGLT-2 inhibitor use - Followed by [facility], last seen in November 2023 - Treatment Hx: Tried oxybutynin, which was discontinued due to anticholinergic effect. Gemtesa was not approved - Continue mirabegron as prescribed, advised to have drug holiday from mirabegron, resume when pt's symptoms worsen Assessment & Plan (09/10/2023 4:55 PM EDT): - in a setting of dementia, DM2, and SGLT-2 inhibitor use - Followed by [facility], last seen on 05/31/23. - Continue mirabegron as prescribed, advised to have drug holiday from mirabegron, resume when pt's symptoms worsen Assessment & Plan (05/08/2023 11:04 AM EDT): - in a setting of dementia, DM2, and SGLT-2 inhibitor use - Followed by Dr. Vallecillo, [facility] - Continue mirabegron as prescribed Assessment & Plan (01/07/2023 4:51 PM EST): - in a setting of dementia, DM2, and SGLT-2 inhibitor use - Followed by Dr. Vallecillo, [facility] - Continue mirabegron as prescribed Recurrent [...] SGLT-2 inhibitor Stage 3 chronic kidney disease ([facility]) 013 Assessment & Plan (05/06/2025 11:30 AM EDT): Monitor as jardiance was discontinued to due frequent complicated utis requiring rehab stays which contribute to deconditioning, Assessment & Plan (01/17/2025 6:08 AM EST): -Wardrobe Assistant: Dr. Martinez -Avoid nephrotoxic drugs and use renal dosing. -Recheck renal function today -On Jardiance, at low-dose, 10mg daily. Caution with UTI Assessment & Plan (02/04/2024 1:13 PM EDT): -Wardrobe Assistant: Dr. Martinez -Baseline: 09/26/22 BUN 29; SCr 1.2, eGFR 43, AST 12, ALT 19, AP 91 -Avoid nephrotoxic drugs and use renal dosing. -Recheck renal function today -On Jardiance, at low-dose, 10mg daily. Assessment & Plan (09/10/2023 4:32 PM EDT): -Wardrobe Assistant: Dr. Martinez, last seen in 2017 or 2018. Per caregiver, pt was discharged due to stability -Baseline: 09/26/22 BUN 29; SCr 1.2, eGFR 43, AST 12, ALT 19, AP 91 -Avoid nephrotoxic drugs and use renal dosing. -Recheck renal function today -On Jardiance, at low-dose, 10mg daily. Assessment & Plan (05/08/2023 11:04 AM EDT): -Wardrobe Assistant: Dr. Martinez, last seen in 2017 or 2018. Per caregiver, pt was discharged due to stability -Baseline: 09/26/22 BUN 29; SCr 1.2, eGFR 43, AST 12, ALT 19, AP 91 -Avoid nephrotoxic drugs and use renal dosing. -Recheck renal function today -On Jardiance, at low-dose, 10mg daily. Assessment & Plan (01/07/2023 4:54 PM EST): -Wardrobe Assistant: Dr. Martinez, last seen in 2016 or [...] Type Department Care Team Description 10/14/2025 Refill [facility] MEDICINE [address] [place] [address] Myah Singh MD 10/13/2025 Refill [facility] MEDICINE [address] [place] [address] Myah Singh MD 08/09/2025 Refill [facility] MEDICINE [address] [place] [address] Myah Singh MD 08/07/2025 Orders Only GENERIC EXTERNAL DATA DEPARTMENT Provider, Generic External Data 08/04/2025 Refill [facility] MEDICINE [address] [place] [address] Myah Singh MD Type 2 diabetes mellitus with stage 3 chronic kidney disease, without long-term current use of insulin, unspecified whether stage 3a or 3b CKD ([facility]) from Last 3 Months Immunizations Immunization Administration [...] Whole Blood 90 60 - 115 mg/dL [facility] Comment:METER #: [id number] 08/07/2025 12:2 0 PM EDT 08/07/2025 4:35 PM EDT us Generic External Data Provider LAB BLOOD ORDERAB LES Final Result [facility] [address] [place] [address] [place] [phone] * SARS-CoV-2 RNA, Influenza A/B, and RSV RNA, Ql NAAT (08/07/2025 8:48 AM EDT) Influenza A PCR NEGATIVE Negative [facility] Influenza B PCR NEGATIVE Negative [facility] Resp Syncy Virus RNA Qual PCR NEGATIVE Negative [facility] SARS COV2 PCR NEGATIVE Negative [facility] Comment:All test results mus t [...] use by authorized laboratories.Testing performed on the [employer] GeneXpert utilizingreal-time RT-PCR.All SARS CoV2 and positive influenza A/B results arereported to [facility]. 08/07/2025 8:48 AM EDT 08/07/2025 8:51 AM EDT us Generic External Data Provider LAB MICROBIOLOGY - GENERAL ORDERABLES Final Result [facility] [address] [place] [phone] * Lipid Panel with Reflex to Direct LDL (01/22/2024 12:20 PM EST) Triglycerides 130 <150 mg/dL [facility] Comment:Desirable Triglyceri de: less than 150 mg/dLBorderline High Triglyceride 150-199 mg/dLHigh Triglyceride: 200-499 mg/dLVery High Triglyceride: greater than or equal to 5OO mg/dL Cholesterol 109 <200 mg/dL [facility] Comment:Desirable Cholestero l: less than 200 mg/dLBorderline High Cholesterol: 200-239 mg/dLHigh Cholesterol: greater than 239 mg/dL LDL Cholesterol Calculated 41 <100 mg/dL [facility] Comment:Desirable LDL: less than 100 mg/dLNear Optimal/Above Optimal LDL: 110- 129 mg/dLBorderline High LDL: 130-159 mg/dLHigh LDL: 160-189 mg/dLVery High LDL: greater than or equal to 190 mg/dL HDL Cholesterol 42 >40 mg/dL [facility] Comment:Desirable HDL: great er than 40 mg/dL Note: This HDL assay may give artificially low results in patients with liver disease. Blood 01/22/2024 12:2 0 PM EST 01/22/2024 1:11 PM EST Myah Singh MD LAB BLOOD ORDERABLES Final Resul t [facility] [address] [place] [phone] [phone] * (ABNORMAL) POCT glycosylated hemoglobin (Hgb A1c) (09/11/2023 10:29 AM EDT) Hemoglobin A1C 6.2(A) 4.0 - 6.0 % QC Media Lot # [id number] Lot# Expiration Date Blood Capillary blood specimen / Unknown 09/11/2023 10:29 AM EDT Myah Singh MD POINT OF CARE TEST ENTER/EDIT OR DERABLES Final Result from Last 3 Months or Most Recently Relevant to Health Maintenance Insurance [facility] LONG TERM OPTIONS (O D-SNP) Care Teams Rn Occupational Relationship Specialty Start Date End Date Myah Singh MD [address] [place] [address] [place] [address] PCP - General Family Medicine 11/08/12
--- OUTSIDE RECORDS SUMMARY | 2025-10-27 09:56 | XMS_ITS | Encounter Summary ---
Author Organization [employer] Address 75 [facility] 7t [place] [address] Care Team Providers Care Loan Originator Name Role Phone Myah Singh MD Primary Care Provider [phone] Reason for Visit * Reason Comments Med Refill Encounter Details Date Type Department Care Team (Late st Contact Info) Description 10/22/[address] [facility] MEDICINE [address] [place], [place] [phone] Myah Singh MD [address] [place], [place] [phone] Allergic rhinitis, unspecified seasonality, unspecified trigger Social [...] documented as of this encounter Care Teams Loan Originator Relationship Specialty Start Date End Date Myah Singh MD [address] [place] [address] PCP - General Family Medicine 11/08/12 [facility] 12/31/24 07/29/25 documented as of this encounter
--- OUTSIDE RECORDS SUMMARY | 2025-10-27 09:56 | XMS_ITS | Encounter Summary ---
Author Organization [employer] Address [address] [place] [address] Care Team Providers Care Printing Technician Name Role Phone Tony Arreola MD Primary Care Provider [phone] Encounter Details Date Type Department Care Team (Late st Contact Info) Description 02/24/2025 Lab Requisition [facility] - Main Lab [address] [facility] [place] [address] Venus Mayberry MD [address] [place], [place] [phone] Essential (primary) hypertension; Type 2 diabetes mellitus [...] * Vitamin B12 (02/24/2025 6:34 AM EDT) [facility] Vitamin B-12 324 250 - 900 pcg/mL LAB CHEMISTRY METHOD 02/24/2025 12:24 PM EDT [facility] Blood Venous blood specimen / Unknown Venipuncture / Unknown 02/24/2025 6:34 AM EDT 02/24/2025 10:44 AM EDT us Venus Mayberry MD LAB BLOOD ORDERABLES Final Resul t Performing Organization Address City/[facility]/ZIP Co de Phone Number [facility] [address] [place] [address], [place] [phone] * Folate (02/24/2025 6:34 AM EDT) [facility] Folate 11.3 2.8 - 17.0 ng/ml LAB CHEMISTRY METHOD 02/24/2025 12:24 PM EDT [facility] Blood Venous blood specimen / Unknown Venipuncture / Unknown 02/24/2025 6:34 AM EDT 02/24/2025 10:44 AM EDT us Venus Mayberry MD LAB BLOOD ORDERABLES Final Resul t Performing Organization Address City/[facility]/ZIP Co de Phone Number [facility] [address] [place] [address], [place] [phone] * (ABNORMAL) Vitamin D 25 hydroxy (02/24/2025 [...] t Performing Organization Address [facility] Co de Phone Number [facility] [address] [place] [address], * Thyroid stimulating hormone (02/24/2025 6:34 AM EDT) [facility] TSH 1.44 0.40 - 4.00 mcIU/mL LAB CHEMISTRY METHOD 02/24/2025 1:13 PM EDT [facility] Blood Venous blood specimen / Unknown Venipuncture / Unknown 02/24/2025 6:34 AM EDT 02/24/2025 10:44 AM EDT us Venus Mayberry MD LAB BLOOD ORDERABLES Final Resul t Performing Organization Address [facility] de Phone Number [facility] [address] [place] [address], [place] [phone] * Hemoglobin A1c (02/24/2025 6:34 AM EDT) [facility] Hemoglobin A1C 5.9 <6.5 % LAB [...] t [facility] [address] [place] [address], [place] [phone] * (ABNORMAL) Comprehensive metabolic panel (02/24/2025 6:34 [...] 02/24/2025 12:24 PM [facility] eGFR 53(L) >=60 mL/min/1. [...] Resul t [facility] [address] [place] [address], * (ABNORMAL) Complete blood count (02/24/2025 6:34 AM EDT) WBC 6.0 4.8 - 10.8 K/mcL LAB HEMETOLOGY METHOD 02/24/2025 1:12 PM EDT [facility] RBC 4.80 3.80 - 4.80 M/mcL LAB HEMETOLOGY METHOD 02/24/2025 1:12 PM [facility] Hemoglobin 14.3 11.5 - 16.0 g/dL LAB HEMETOLOGY METHOD 02/24/2025 1:12 PM [facility] Hematocrit 45.6 35.0 - 47.0 % LAB HEMETOLOGY METHOD 02/24/2025 1:12 PM [facility] MCV 94.2 79.0 - 98.0 FL LAB HEMETOLOGY METHOD 02/24/2025 1:12 PM [facility] MCH 29.5 27.0 - 32.0 pcg LAB HEMETOLOGY METHOD 02/24/2025 1:12 PM [facility] MCHC 31.4(L) 32.0 - 37.0 g/dL LAB HEMETOLOGY METHOD 02/24/2025 1:12 PM [facility] RDW 14.7 11.0 - 15.0 % LAB HEMETOLOGY METHOD 02/24/2025 1:12 PM [facility] Platelets 154 130 - 400 K/mcL LAB HEMETOLOGY METHOD 02/24/2025 1:12 PM [facility] MPV 11.7(H) 7.0 - 11.0 FL LAB HEMETOLOGY METHOD 02/24/2025 1:12 PM [facility] NRBC 0.0 <1.0 % LAB HEMETOLOGY METHOD 02/24/2025 1:12 PM [facility] NRBC Absolute 0.00 <0.10 K/mcL LAB HEMETOLOGY METHOD 02/24/2025 1:12 PM [facility] Blood Venous blood specimen / Unknown Venipuncture / Unknown 02/24/2025 6:34 AM EDT 02/24/2025 10:44 AM EDT Venus Mayberry MD LAB BLOOD ORDERABLES Final Resul t [facility] [address] [place] [address], documented in this encounter Visit Diagnoses Diagnosis Essential (primary) hypertension Unspecified essential hypertension Type 2 diabetes mellitus without complications (CMS/HCC V24, CMS/HCC V28) documented in this encounter Care Teams Printing Technician Relationship Specialty Start Date End Date Tony Arreola MD [address] [place] [address], [phone] PCP - General Family Medicine 12/14/24 documented as of this encounter
--- OUTSIDE RECORDS SUMMARY | 2025-10-27 09:56 | XMS_ITS | Clinical Summary ---
Author Organization [facility] Facility Address [address] [address] Care Team Providers Care Student Assistance Counselor Name Role Phone Unavailable Primary Care Provider [...] -Pt has an upcoming appt with her draw frame operator History of cerebrovascular accident 01/07/2023 Overview (01/23/2023): Last Assessment & Plan: -around 2009 previous medical record -TIA in 2015 -Continue working on secondary prevention / risk factor management History of non-ST segment elevation myocardial i nfarction 01/07/2023 Overview (01/23/2023): Last Assessment & Plan: -Oct 2015 -[facility] [...] Risk: CKD, age, NSTEMI, Hx CVA/TIA, DM2 -Drain Tiler: Previously [facility] – [...] to 50 Years) Discontinued 02/23/2015, 10/04/2001 Insurance [facility] ([id number]) [place] [id number] [facility] ([id number])
--- OUTSIDE RECORDS SUMMARY | 2025-10-27 09:56 | XMS_ITS | Encounter Summary ---
Author Organization [employer] Address [address] [place] [address] Care Team Providers Care Pressurizer Name Role Phone Tony Arreola MD Primary Care Provider [phone] Encounter Details Date Type Department Care Team (Late st Contact Info) Description 12/06/2024 Lab Requisition [facility] - Main Lab [address] [place] [address] Tony Arreola MD [address] [facility] [address] [place], [address] Weakness; Unspecified dementia, unspecified severity, without [...] MD LAB BLOOD ORDERABLES Final Resul t [facility] [address] [place] [address], [place] [phone] * (ABNORMAL) Complete blood count (12/09/2024 7:13 AM EST) [facility] Signature WBC 6.9 4.8 - [...] LAB HEMETOLOGY METHOD 12/09/2024 12:37 PM EST [facility] Blood Venous blood specimen / Unknown Venipuncture / Unknown 12/09/2024 7:13 AM EST 12/09/2024 11:17 AM EST us Tony Arreola MD LAB BLOOD ORDERABLES Final Resul t [facility] [address] [place] [address], documented in this encounter Visit Diagnoses Diagnosis Weakness Other malaise and fatigue Unspecified dementia, unspecified severity, without behavioral disturbance, psychotic disturbance, mood disturbance, and anxiety (CMS/HCC V24, CMS/HCC V28) documented in this encounter Care Teams Pressurizer Relationship Specialty Start Date End Date Tony Arreola MD [address] [place] [address], [phone] PCP - General Family Medicine 12/14/24 documented as of this encounter
--- OUTSIDE RECORDS SUMMARY | 2025-10-27 09:56 | XMS_ITS | Encounter Summary ---
Author Organization [facility] Address [address] [place] [address] Care Team Providers Care Ventilation Worker Name Role Phone Tony Arreola MD Primary Care Provider [phone] Encounter Details Date Type Department Care Team (Late st Contact Info) Description 12/28/2024 Lab Requisition [facility] - Main Lab [address] [facility] [place] [address] Tony Arreola MD 38 [facility] [address] [place], [address] Weakness; Unspecified dementia, unspecified severity, without [...] V28) documented in this encounter Care Teams Ventilation Worker Relationship Specialty Start Date End Date Tony Arreola MD 38 [facility] [address] [place], [phone] PCP - General Family Medicine 12/14/24 documented as of this encounter
--- OUTSIDE RECORDS SUMMARY | 2025-10-27 09:56 | XMS_ITS | Clinical Summary ---
Author Organization [facility] Address [address] [place] [address] Phone Care Team Providers Care Mattress Weaver Name Role Phone Tony Arreola MD Primary Care Provider [phone] Social History Tobacco Use Types Packs/Day Years [...] LAB CHEMISTRY METHOD 02/24/2025 9:29 PM EDT [facility] Mean Bld Glu Estim. 123 mg/dL LAB CHEMISTRY METHOD 02/24/2025 9:29 PM EDT [facility] Blood Venous blood specimen / Unknown Venipuncture / Unknown 02/24/2025 6:34 AM EDT 02/24/2025 10:44 AM EDT Venus Mayberry MD LAB BLOOD ORDERABLES Final Resul t [facility] [address] [place] [address], * (ABNORMAL) Comprehensive metabolic panel (02/24/2025 6:34 AM EDT) Sodium 142 133 - 145 mmol/L LAB CHEMISTRY METHOD 02/24/2025 12:24 PM EDT [facility] Potassium 4.1 3.5 - 5.5 mmol/L LAB CHEMISTRY METHOD 02/24/2025 12:24 PM [facility] Chloride 108 96 - 110 mmol/L LAB CHEMISTRY METHOD 02/24/2025 12:24 PM [facility] CO2 28 21 - 32 mmol/L LAB CHEMISTRY METHOD 02/24/2025 12:24 PM [facility] Anion Gap 6 3 - 11 LAB CHEMISTRY METHOD 02/24/2025 12:24 PM [facility] Glucose 91 70 - 100 mg/dL LAB CHEMISTRY METHOD 02/24/2025 12:24 PM [facility] BUN 30(H) 5 - 25 mg/dL LAB CHEMISTRY METHOD 02/24/2025 12:24 PM [facility] Creatinine 1.02 0.50 - 1.10 mg/dL LAB CHEMISTRY METHOD [facility] eGFR 53(L) >=60 mL/min/1. 73m2 LAB CHEMISTRY METHOD 02/24/2025 12:24 PM [facility] Comment:Calculation based on the Chronic Kidney Disease Epidemiology Collaboration (CKD-EPI) equation refit without adjustment for race. BUN/Creatinine Ratio 29.4 LAB CHEMISTRY METHOD 02/24/2025 12:24 PM [facility] Calcium 10.5 8.5 - 10.5 mg/dL LAB CHEMISTRY METHOD 02/24/2025 12:24 PM [facility] AST (SGOT) 31 10 - 42 unit/L LAB CHEMISTRY METHOD 02/24/2025 12:24 PM EDT [facility] ALT (SGPT) 36 10 - 60 unit/L LAB CHEMISTRY METHOD 02/24/2025 12:24 PM EDT [facility] Alkaline Phosphatase 82 42 - 121 unit/L LAB CHEMISTRY METHOD 02/24/2025 12:24 PM EDT [facility] Total Protein 6.8 6.0 - 8.0 g/dL LAB CHEMISTRY METHOD 02/24/2025 12:24 PM EDT [facility] Albumin 3.1(L) 3.2 - 5.0 g/dL LAB CHEMISTRY METHOD 02/24/2025 12:24 PM EDT [facility] Total Bilirubin 0.4 0.0 - 1.4 mg/dL LAB CHEMISTRY METHOD 02/24/2025 12:24 PM EDT [facility] Blood Venous blood specimen / Unknown Venipuncture / Unknown 02/24/2025 6:34 AM EDT 02/24/2025 10:44 AM EDT Venus Mayberry MD LAB BLOOD ORDERABLES Final Resul t [facility] [address] [place] [address], from Last 3 Months or Most Recently Relevant to Health Maintenance Insurance [facility] Member Subscriber Plan / Payer (Ef fective 2019-Present) Name:Sienna Mendez Relation to Subscriber:Self Name:Sienna Mendez Payer ID:[id number] Group ID:[id number] Type:Not on file Address: [address] [place] [id number] Care Teams Mattress Weaver Relationship Specialty Start Date End Date Tony Arreola MD [address] [place] [address] [address] [place], [phone] PCP - General Family Medicine 12/14/24
--- OUTSIDE RECORDS SUMMARY | 2025-10-27 09:56 | XMS_ITS | Encounter Summary ---
Author Organization [facility] Address [address] [facility] [address] [place] [address] Phone Care Team Providers Care Patient Registration Rep Name Role Phone Unavailable Primary Care Provider Unavailabl e Reason for Visit * Reason Comments Med Refill Encounter Details Date Type Department Care Team ([facility] st Contact Info) Description 12/10/2021 Refill [facility] [address] [facility] [address] [place] [phone] Chino Martinez MD [address] [facility] [address] [place] [phone] Social History Tobacco Use Types Packs/Day Years [...]
--- OUTSIDE RECORDS SUMMARY | 2025-10-27 09:56 | XMS_ITS | Encounter Summary ---
Author Organization [employer] Address [address] [place] [address] Care Team Providers Care Transport Pilot Name Role Phone Tony Arreola MD Primary Care Provider [phone] Encounter Details Date Type Department Care Team (Late st Contact Info) Description 11/29/2024 Lab Requisition [facility] - Main Lab [address] [place] [address] Tony Arreola MD 38 [facility] [address] [place], [address] Weakness; Unspecified dementia, unspecified severity, without [...] Resul t [facility] [address] [place] [address], * (ABNORMAL) Complete blood count (12/02/2024 7:21 AM EST) [facility] WBC 6.8 4.8 - 10.8 K/mcL LAB [...] BLOOD ORDERABLES Final Resul t [facility] [address] [place] [address], documented in this encounter Visit Diagnoses Diagnosis Weakness Other malaise and fatigue Unspecified dementia, unspecified severity, without behavioral disturbance, psychotic disturbance, mood disturbance, and anxiety (CMS/HCC V24, CMS/HCC V28) documented in this encounter Care Teams Transport Pilot Relationship Specialty Start Date End Date Tony Arreola MD [address] [place] [address] [address] [place], [phone] PCP - General Family Medicine 12/14/24 documented as of this encounter
--- OUTSIDE RECORDS SUMMARY | 2025-10-27 09:56 | XMS_ITS | Encounter Summary ---
Author Organization [employer] Address [address] [facility] 7[address] [place] [address] Care Team Providers Care Student Development Coordinator Name Role Phone Myah Singh MD Primary Care Provider [phone] Reason for Visit * Reason Comments Med Refill Encounter Details Date Type Department Care Team (Late st Contact Info) Description 11/29/[address] [facility] [address] [place], [place] [phone] Myah Singh MD [address] [place], [place] [phone] Vitamin D deficiency Social History Tobacco Use [...] documented as of this encounter Care Teams Student Development Coordinator Relationship Specialty Start Date End Date Myah Singh MD [address] [place] [address] PCP - General Family Medicine 11/08/12 [facility] 12/31/24 07/29/25 documented as of this encounter
--- OUTSIDE RECORDS SUMMARY | 2025-10-27 09:56 | XMS_ITS | Encounter Summary ---
Author Organization [employer] Address [address] [place] [address] 7[address] [place] [address] Care Team Providers Care Choke Reamer Name Role Phone Myah Singh MD Primary Care Provider [phone] Reason for Visit * Reason Onset Date Comments Durable Medical Equipment 01/30/2023 Encounter Details Date Type Department Care Team ([facility] st Contact Info) Description 01/30/2023 Telephone [facility] [address] [place], [place] [phone] Myah Singh MD [address] [place], [place] [phone] Durable Medical Equipment Social History Tobacco Use [...] call me or CHACE Beltran also patient RESIDENTIAL GAS HEAT TECHNICIAN can call them as they are the vendor for more information [phone] * Telephone Encounter - Uriahrociorashel Rodriguezmahad Marion - 01/30/2023 10:00 AM EST Tc from pt RESIDENTIAL GAS HEAT TECHNICIAN Jonathan stating that for the last two months pt Large Pull ups and Wipes have not been deliver Please contact jonathan at [phone] documented in this encounter Plan of Treatment Not on file documented as of this encounter Visit Diagnoses Not on filedocumented in this encounter Care Teams Choke Reamer Relationship Specialty Start Date End Date Myah Singh MD [address] [place] [address] PCP - General Family Medicine 11/08/12 [facility] 12/31/24 07/29/25 documented as of this encounter
--- OUTSIDE RECORDS SUMMARY | 2025-10-27 09:56 | XMS_ITS | Encounter Summary ---
Author Organization [facility] Address [address] [place] [address] Care Team Providers Care Roller Turner Name Role Phone Tony Arreola MD Primary Care Provider [phone] Encounter Details Date Type Department Care Team (Late st Contact Info) Description 12/14/2024 Lab Requisition [facility] - Main Lab [address] [place] [address] Tony Arreola MD 38 [facility] [address] [place], [address] Weakness; Unspecified dementia, unspecified severity, without [...] mmol/L LAB CHEMISTRY METHOD 12/16/2024 1:55 PM [facility] Potassium 4.1 3.5 - 5.5 mmol/L LAB CHEMISTRY METHOD 12/16/2024 1:55 PM [facility] Chloride 113(H) 96 - 110 mmol/L LAB CHEMISTRY METHOD 12/16/2024 1:55 PM [facility] CO2 28 21 - 32 mmol/L LAB CHEMISTRY METHOD 12/16/2024 1:55 PM [facility] Anion Gap 5 3 - 11 LAB CHEMISTRY METHOD 12/16/2024 1:55 PM [facility] Glucose 88 70 - 100 mg/dL LAB CHEMISTRY METHOD 12/16/2024 1:55 PM [facility] BUN 25 5 - 25 mg/dL LAB CHEMISTRY METHOD 12/16/2024 1:55 PM [facility] Creatinine 1.26(H) 0.50 - 1.10 mg/dL LAB CHEMISTRY METHOD 12/16/2024 1:55 PM [facility] eGFR 41(L) >=60 mL/min/1. 73m2 LAB CHEMISTRY METHOD 12/16/2024 1:55 PM [facility] Comment:Calculation based on the Chronic Kidney Disease Epidemiology Collaboration (CKD-EPI) equation refit without adjustment for race. BUN/Creatinine Ratio 19.8 LAB CHEMISTRY METHOD 12/16/2024 1:55 PM [facility] Calcium 9.3 8.5 - 10.5 mg/dL LAB CHEMISTRY METHOD 12/16/2024 1:55 PM [facility] Blood Venous blood specimen / Unknown Venipuncture / Unknown 12/16/2024 7:20 AM EST 12/16/2024 11:32 AM EST us Tony Arreola MD LAB BLOOD ORDERABLES Final Resul t [facility] [address] [place] [address], [place] [phone] * (ABNORMAL) Complete blood count (12/16/2024 7:20 AM EST) [facility] WBC 5.4 4.8 - 10.8 K/mcL LAB HEMETOLOGY METHOD 12/16/2024 12:51 PM [facility] RBC 4.60 3.80 - 4.80 M/mcL LAB HEMETOLOGY METHOD 12/16/2024 12:51 PM [facility] Hemoglobin 13.4 11.5 - 16.0 g/dL LAB HEMETOLOGY METHOD 12/16/2024 12:51 PM [facility] Hematocrit 43.8 35.0 - 47.0 % LAB HEMETOLOGY METHOD 12/16/2024 12:51 PM [facility] MCV 95.8 79.0 - 98.0 FL LAB HEMETOLOGY METHOD 12/16/2024 12:51 PM [facility] MCH 29.3 27.0 - 32.0 pcg LAB HEMETOLOGY METHOD 12/16/2024 12:51 PM [facility] MCHC 30.6(L) 32.0 - 37.0 g/dL LAB HEMETOLOGY METHOD 12/16/2024 12:51 PM [facility] RDW 14.9 11.0 - 15.0 % LAB HEMETOLOGY METHOD 12/16/2024 12:51 PM [facility] Platelets 135 130 - 400 K/mcL LAB HEMETOLOGY METHOD 12/16/2024 12:51 PM [facility] MPV 12.3(H) 7.0 - 11.0 FL LAB HEMETOLOGY METHOD 12/16/2024 12:51 PM [facility] NRBC 0.0 <1.0 % LAB HEMETOLOGY METHOD 12/16/2024 12:51 PM [facility] NRBC Absolute 0.00 <0.10 K/mcL LAB HEMETOLOGY METHOD 12/16/2024 12:[address] [facility] Blood Venous blood specimen / Unknown Venipuncture / Unknown 12/16/2024 7:20 AM EST 12/16/2024 11:32 AM EST us Tony Arreola MD LAB BLOOD ORDERABLES Final Resul t [facility] [address] [place] [address], documented in this encounter Visit Diagnoses Diagnosis Weakness Other malaise and fatigue Unspecified dementia, unspecified severity, without behavioral disturbance, psychotic disturbance, mood disturbance, and anxiety (CMS/HCC V24, CMS/HCC V28) documented in this encounter Care Teams Roller Turner Relationship Specialty Start Date End Date Tony Arreola MD [address] [place] [address] [address] [place], [phone] PCP - General Family Medicine 12/14/24 documented as of this encounter
== END 2025-10-27 08:52 | disposition home or self-care (01) ==
LOC: HO.MMNH1L 08:51
PROVIDERS: Visit Provider Physician Assistant Medical
DX: Z13.89 Encounter for screening for other disorder (principal)
CPT/HCPCS: 36415; 80053; 85025

== ENCOUNTER 2025-11-22 17:06 | Emergency (ER) | payer OTHER, SELFPAY ==
--- OUTSIDE RECORDS SUMMARY | 2025-11-18 09:30 | XMS_ITS | Encounter Summary ---
Author Organization [employer] Address [address] [place] [address] [address] [place] [address] Care Team Providers Care Customs Import Specialist Name Role Phone Myah Singh MD Primary Care Provider [phone] Reason for Referral * Consultation (Urgent) - Authorized Specialty Diagnoses / Procedures Referred By Jessica burton Referred To Contact Podiatry Diagnoses Type 2 diabetes mellitus with stage 3 chronic kidney disease, without long-term current use of insulin, unspecified whether stage 3a or 3b CKD (HCC) Myah Singh MD [address] [place] [address] Phone: tel: fax: Chino Levi DPM [address] [place] [id number] Phone: tel: fax: Referral ID Status Reason Start Date Expiration Date Visits Requested Visits Authorized [id number] Authorized Specialty Services Required 11/18/2026 1 1 Encounter Details Date Type Department Care Team (Late st Contact Info) Description 11/18/2025 9:30 AM EST Telemedicine [facility] [address] [place], [place] [phone] Myah Singh MD [address] [place], [place] [phone] Dyslipidemia (Primary Dx); Type 2 diabetes mellitus with stage 3 chronic kidney disease, without long-term current use of insulin, unspecified whether stage 3a or 3b CKD (HCC); Primary hypertension; Hepatic cirrhosis, unspecified hepatic cirrhosis type, unspecified whether ascites present (HCC); Stage 3b chronic kidney disease (CMS/HCC) (HCC); Recurrent urinary tract infection; Overactive bladder; Mixed stress and urge urinary incontinence; Anemia in other chronic diseases classified elsewhere; Alzheimer disease (HCC); Moderate vascular dementia, unspecified whether behavioral, psychotic, or mood disturbance or anxiety (CMS/HCC) (HCC); History of CVA (cerebrovascular accident); Moderate persistent asthma without complication; Obstructive sleep apnea syndrome; Thrombocytopenia (CMS/HCC); Gastroesophageal reflux disease, unspecified whether esophagitis present; Allergic rhinitis, unspecified seasonality, unspecified trigger Social [...] the past 12 months, has t he Venuu, gas, oil or water Guidefitter threatened to shut off services in your home? No 09/10/2023 Depression Answer Date Recorded Patient Health Questionnaire-2 Score 0 05/08/2023 Comments Unknown Sex and Gender Information Value Date Recorded Sex Assigned at Female 09/26/2022 10:14 AM EDT Legal Sex Female 10:14 AM EDT Gender Identity Female 09/26/2022 10:14 AM EDT Sexual Orientation Straight 09/26/2022 10 :14 AM EDT documented as of this encounter Progress Notes * Mayh Singh MD - 11/18/2025 9:30 AM EST Subjective Sienna Mendez is a 89 y.o. female who has hypertension, DONAVAN, CKD3, OAB, mixed UI, recurrent UTI, cirrhosis, type 2 diabetes mellitus, and dementia, and patient presents for follow up of chronic conditions / televisit. Background: Problem List[1] Our last encounter was 01/22/2024. Interval history: She had several falls. Seen in ED in February and July 2025. Most recent fall was in July 2025, in which she sustained right wrist fracture. She has been followed by [facility] Ortho, Dr Madsen. Most recently seen on 10/07/2025. Healing well. She had recurrent UTIs. January 2025 urine culture grew E. Coli, resistant to cipro, and was prescribed Augmentin. Most recent documented UTI is in Jul 2025. Urine culture grew E. Coli, resistant to cipro. She was prescribed TMP/SMX. Seen by neurologist, [facility], on 08/08/2025 for dementia follow up. Continue memantine 10 mg bid, donepezil 10 mg daily and haloperidol 1 mg at bedtime. Today: Her granddaughter, Elena, is with the patient at home. Recently returned from the short-term rehab. Since her return, she has experienced changes in her right foot, specifically noting that the entire toenail has become progressively darker. She reportedthat the nail was bothering her but did not complain of pain. She has not seen any doctors since leaving the rehab. Recently had [facility] visit for symptoms suggestive of UTI. She was prescribed antibiotic. Patient wears pull-ups. Caregivers has not noticed any changes in urination, urine color, or odor at this time. She has also had issues with her eyes, describing one side as droopy and noting discharge present upon waking in the morning. Elena states she has been sick, having asthma exacerbations, and is not confident about bringingpatient to the walk-in clinic. Vitals taken by Elena at home: BP 127/83; HR 78; BG 102 Review of Systems Constitutional: Positive for activity change. Negative for appetite change and fever. Eyes: Positive for redness. Respiratory: Negative for shortness of breath. Cardiovascular: Negative for chest pain. Skin: Positive for wound. Objective There were no vitals filed for this visit. Physical Exam Results: Lab Results Component Value Date NA 144 10/02/2024 K 4.1 10/02/2024 CL 108 10/02/2024 CO2 26 10/02/2024 BUN 15 10/02/2024 CREATININE 1.11 10/02/2024 CRCLCALCPH 36.9 10/02/2024 EGFR 46 10/02/2024 GLUCOSE 90 08/07/2025 TOTALBILIRUB 0.4 10/02/2024 AST 25 10/02/2024 ALT 22 10/02/2024 TOTPROTEIN 6.7 10/02/2024 ALB 3.4 (L) 10/02/2024 ALP 82 10/02/2024 Lab Results Component Value Date TRIG 130 01/22/2024 CHOL 109 01/22/2024 LDLCHOLCAL 41 01/22/2024 HDL 42 01/22/2024 Lab Results Component Value Date HGBA1C 6.2 (A) 09/11/2023 MICROALBUR 14.0 01/24/2024 CREATUR 182.06 01/24/2024 MICROALBCREU 7.6 01/24/2024 Lab Results Component Value Date WBC 5.1 10/02/2024 HGB 13.8 10/02/2024 HCT 42.9 10/02/2024 PLT 141 (L) 10/02/2024 MCV 90.9 10/02/2024 Dark discoloration of right toenail: - Darkening of the right toenail noted, progressive in nature. No pain reported. Evaluation required to rule out underlying pathology. - [facility] Referral to brake repairer railroad discussed; noted that podiatry appointments may be delayed. Ocular discharge and eyelid drooping: - Eyelid drooping and morning ocular discharge present. Further evaluation required. - Requested in-home evaluation by the [facility] service. Medication refill: - Need for medication refill acknowledged. - Medication refill to be provided. Urinary symptoms and urology follow-up: - Urinary symptoms discussed; overactive bladder mentioned. Urology follow-up required. - fiction and nonfiction prose writer to check and schedule next urology appointment. Doctor to assist in coordinating urology follow-up. Assessment/Plan Problem List Items Addressed This Visit Asthma -Continue montelukast -Continue albuterol HFA prn Relevant Medications montelukast (Singulair) 10 MG tablet cetirizine (ZyrTEC) 5 MG tablet Ventolin HFA 108 (90 Base) MCG/ACT inhaler Cirrhosis of liver (CMS/HCC) (HCC) -previously eavluated by GI, Dr. Jaffe. Last seen in 2015. Impression was due to fatty liver disease. Follow up prn. -Most recent US: 10/25/22 Heterogeneous liver parenchyma with a nodular contour suggesting cirrhosis; Nonobstructive 2.7 cm calculus in the upper pole of the right kidney; Simple left renal cysts forwhich no imaging follow-up is recommended. -Most recent abd imaging was CT in Jun 2024 which showed chronic liver disease / cirrhosis. -Avoid hepatotoxic drugs. -Work on weight management Relevant Medications omeprazole (PriLOSEC) [address] capsule docusate sodium (Colace) 100 MG capsule Dementia (CMS/HCC) (HCC) -multifactorial: Alzeheimer's; Hx CVA and TIA; hx COVID; depression / anxiety -following with Dr. Estevez, neurologist, last seen in Dec 2021, and psychiatrist Dr. Diaz -continue current medications prescribed by both neurologist and psychiatrist -it seems like patient was seeing psychiatrist while staying in the longterm -work on risk factor management -reviewed safety -continue providing adequate home care support Dyslipidemia - Primary -Last Lipid Profile: Dec 2023 -Continue atorvastatin 20 mg at bedtime -Continue working on lifestyle modifications -Update lab Relevant Medications atorvastatin (Lipitor) 20 MG tablet Other Relevant Orders Lipid Panel with Reflex to Direct LDL Gastroesophageal reflux disease - continue famotidine and omeprazole Relevant Medications amLODIPine (Norvasc) 5 MG tablet omeprazole (PriLOSEC) [address] capsule Ascorbic Acid (vitamin C) 500 MG tablet ferrous sulfate 325 (65 Fe) MG EC tablet Hypertension -Goal BP < 130/80 per ACC/AHA guideline (Treatment threshold >= 130/80 ) -BP at goal -ASCVD Risk: CKD, age, NSTEMI, Hx CVA/TIA, DM2 -Etymology Teacher: Previously [facility], pt has a new appt on 01/23/23 (Grade II-III/Vl systolic murmur) -10/14/22 TTE Normal LV function with EF 60-65%, moderate aortic stenosis -Continue working on lifestyle modifications. -Continue lisinopril 20 mg daily. (Caution with ) -Continue amlodipine 5 mg daily. (Caution with ) -Follow up in 3-6 mo, sooner if any problem arises Relevant Medications lisinopril 20 MG tablet amLODIPine (Norvasc) 5 MG tablet Other Relevant Orders Albumin, Random Urine W/Creatinine Comprehensive Metabolic Panel Obstructive sleep apnea syndrome -Following with [facility] Sleep medicine clinic, last seen in January 2024. -05/19/16 Sleep study; Nasal mask of medium size with pressure 7 cm H2O was recommended. -07/03/23 Sleep study showed severe DONAAVN. Recommended CPAP with pressure 10 cm H2O -Recommended to improve adherence and follow up with sleep medicine clinic Overactive bladder - in a setting of dementia, DM2, and SGLT-2 inhibitor use - Followed by [facility], last seen in Jun 2024 - Treatment Hx: Tried oxybutynin, which was discontinued due to anticholinergic effect. Gemtesa wasprohibitory expensive - Continue mirabegron as prescribed, advised to have drug holiday from mirabegron, resume when pt'ssymptoms worsen Relevant Medications ferrous sulfate 325 (65 Fe) MG EC tablet Recurrent urinary tract infection - Followed by Dr. Vallecillo, last seen in Jun 2024 - most recent documented UTI in Jul 2025. Urine culture grew E. Coli resistant to cipro. Prescribed TMP/SMX in ED. - caregiver states patient was diagnosed and treated for UTI in this month, Oct 2025 (urine cultureis not available) - Continue adequate hydration - On SGLT-2 inhibitor, empagliflozin, continue with caution - She had Diagnosis of recurrent UTI prior to starting SGLT2i. No increased UTI frequency since initiation of SGLT2i. Relevant Medications ferrous sulfate 325 (65 Fe) MG EC tablet Stage 3 chronic kidney disease (CMS/HCC) ([facility]) -Billiard Table Assembler: Dr. Martinez -Avoid nephrotoxic drugs and use renal dosing. -Recheck renal function today -Held empagliflozin briefly when she had UTI in January 2025, but resumed, currently taking at low-dose, 10mg daily. Relevant Medications atorvastatin (Lipitor) 20 MG tablet lisinopril 20 MG tablet amLODIPine (Norvasc) 5 MG tablet ferrous sulfate 325 (65 Fe) MG EC tablet Thrombocytopenia (CMS/HCC) - in a setting of cirrhosis, compensated - monitor periodically Relevant Orders CBC auto differential Diabetes mellitus, type 2 (HCC) - Dx 2021 - Hgb A1C 6.2% on 09/11/23, 6.0% on 12/28/22 - Continue working on lifestyle modifications - Continue checking glucose: Freestyle Lite gluocemeter - Continue empagliflozin with caution; consider discontinuing if patient's UTI frequency worsens. - Microalbumin test: difficulty giving urine due to OAB - Lipid profile: 12/29/22 TC 103; TG 89; HDL 43; LDL 43 - Diabetic eye exam: - Foot exam: 05/08/23 Relevant Medications atorvastatin (Lipitor) 20 MG tablet lisinopril 20 MG tablet empagliflozin (Jardiance) 10 MG Other Relevant Orders Vitamin B12 (Cobalamin) and Folate Panel, Serum Albumin, Random Urine W/Creatinine Hemoglobin A1c Lipid Panel with Reflex to Direct LDL Referral to Podiatry History of CVA (cerebrovascular accident) -around 2009 previous medical record -TIA in 2014 -Continue working on secondary prevention / risk factor management Relevant Medications atorvastatin (Lipitor) 20 MG tablet lisinopril 20 MG tablet amLODIPine (Norvasc) 5 MG tablet Alzheimer disease (HCC) -Neurologist: Dr. Estevez, last seen in Jul 2025 -Evaluated with EEG slow wave in 2014 and normal in 2015 -Head CT showed atrophy of brain and microvascular disease -Continue donepezil -Continue memantine Mixed stress and urge urinary incontinence - Pt has OAB, DM2, and dementia - She is on diuretics and SGLT-2 inhibitor. - Followed by urologist, last seen in Jun 2024 - Continue mirabegron - Continue using briefs. Relevant Medications ferrous sulfate 325 (65 Fe) MG EC tablet Anemia - anemia of chronic disease (CKD, cirrhosis) - continue ferrous sulfate - check lab Relevant Medications Ascorbic Acid (vitamin C) 500 MG tablet ferrous sulfate 325 (65 Fe) MG EC tablet docusate sodium (Colace) 100 MG capsule Other Relevant Orders TSH with Reflex to Free T4 CBC auto differential Other Visit Diagnoses Allergic rhinitis, unspecified seasonality, unspecified trigger Relevant Medications montelukast (Singulair) 10 MG tablet cetirizine (ZyrTEC) 5 MG tablet Allergies[2] Current Outpatient Medications Medication Instructions Alcohol Swabs (Ultra-Care Alcohol Prep Pads) 70 % pads USE DIRECTED TO CLEAN ARE PRIOR TO FINGERSTICK amLODIPine (NORVASC) 5 mg, Oral, Daily Ascorbic Acid (vitamin C) 500 MG tablet TAKE 1 BY ORAL ROUTE ONCE A DAY aspirin (Aspirin Low Dose) 81 MG EC tablet TAKE 1 TABLET BY MOUTH IN THE MORNING. atorvastatin (Lipitor) 20 MG tablet TAKE 1 TABLET BY MOUTH AT BEDTIME Blood Glucose Monitoring Suppl (FreeStyle Lite) w/Device kit TEST 1 TIMES BY INTRADERMAL ROUTE EVERY MORNING AND NEEDED Calcium + Vitamin D3 600-5 MG-MCG tablet 1 tablet, Oral, 2 times daily cetirizine (ZYRTEC) 5 mg, Oral, Daily docusate sodium (COLACE) 100 mg, Oral, 2 times daily PRN donepezil (Aricept) 10 MG tablet TAKE 1 TABLET BY MOUTH EVERY DAY AFTER MEALS empagliflozin (JARDIANCE) 10 mg, Oral, Daily erythromycin (Romycin) 5 MG/GM ophthalmic ointment Both Eyes, Nightly, Apply Amount per Dose: 0.5 inch (~1 cm) per dose. ferrous sulfate 325 (65 Fe) MG EC tablet TAKE 1 TABLET BY ORAL ROUTE EVERY OTHER DAY FLUoxetine (PROZAC) 40 mg, Oral, Daily fluticasone (Flonase) 50 MCG/ACT nasal spray INSTILL 1 SPRAY INTO EACH NOSTRIL EVERY MORNING FREESTYLE LITE test strip TEST BLOOD SUGAR DAILY AND NEEDED haloperidol (HALDOL) 1 mg, Daily hydrocortisone 1 % lotion No dose, route, or frequency recorded. Ketotifen Fumarate 0.035 % solution 1 drop, Ophthalmic, 2 times daily Lancets (Safety Lancet 30G/Pressure Act) misc INJECT 1 BY INTO MACHINE ROUTE EVERY DAY lisinopril 20 mg, Oral, Daily memantine (NAMENDA) 10 mg, Oral, 2 times daily mirtazapine (REMERON) 15 mg, Oral, Nightly montelukast (Singulair) 10 MG tablet TAKE 1 TABLET BY ORAL ROUTE EVERY DAY IN THE EVENING Myrbetriq 50 MG 24 hr tablet No dose, route, or frequency recorded. omeprazole (PriLOSEC) [address] capsule take 1 capsule (40MG) by oral route every day before a meal traZODone (Desyrel) 50 MG tablet No dose, route, or frequency recorded. Ventolin HFA 108 (90 Base) MCG/ACT inhaler 2 puffs, Inhalation, Every 4 hours PRN Follow-up: 2-3 mo or sooner if any problem arises. This note was drafted using Ambient (AI) technology. The patient/patient's guardian has been informed and has consented to the use of this technology [1] Patient Active Problem List Diagnosis Anxiety Asthma Cirrhosis of liver (CMS/HCC) ([facility]) Dementia ([facility]/HCC) ([facility]) Depressive disorder Dyslipidemia Gastroesophageal reflux disease Hiatal hernia Hypertension Kidney stone Obstructive sleep apnea syndrome Osteoarthritis Osteopenia Overactive bladder Recurrent urinary tract infection Severe major depression with psychotic features ([facility]/HCC) ([facility]) Stage 3 chronic kidney disease ([facility]/HCC) ([facility]) Thrombocytopenia ([facility]) Diabetes mellitus, type 2 ([facility]) History of CVA (cerebrovascular accident) History of non-ST elevation myocardial infarction (NSTEMI) Obesity Alzheimer disease ([facility]) Mixed stress and urge urinary incontinence Aortic stenosis Anemia Conjunctivitis of both eyes [2] Allergies Allergen Reactions Benzocaine [place]en Ceftazidime Metoclopramide Morphine Other reaction(s): unspecified Tetracaine documented in this encounter Miscellaneous Notes * Assessment & Plan Note - Myah Singh MD - 11/18/2025 10:33 PM ESTAssociated Problem(s): Dementia ([facility]) ([facility]) -multifactorial: Alzeheimer's; Hx CVA and TIA; hx COVID; depression / anxiety -following with Dr. Estevez, neurologist, last seen in Dec 2021, and psychiatrist Dr. Diaz -continue current medications prescribed by both neurologist and psychiatrist -it seems like patient was seeing psychiatrist while staying in the longterm -work on risk factor management -reviewed safety -continue providing adequate home care support * Assessment & Plan Note - Myah Singh MD - 11/18/2025 10:33 PM ESTAssociated Problem(s): History of CVA (cerebrovascular accident) -around 2009 previous medical record -TIA in 2015 -Continue working on secondary prevention / risk factor management * Assessment & Plan Note - Myah Singh MD - 11/18/2025 10:33 PM ESTAssociated Problem(s): Asthma -Continue montelukast -Continue albuterol HFA prn * Assessment & Plan Note - Myah Singh MD - 11/18/2025 10:33 PM ESTAssociated Problem(s): Obstructive sleep apnea syndrome -Following with [facility] Sleep medicine clinic, last seen in January 2024. -05/19/16 Sleep study; Nasal mask of medium size with pressure 7 cm H2O was recommended. -07/03/23 Sleep study showed severe DONAVAN. Recommended CPAP with pressure 10 cm H2O -Recommended to improve adherence and follow up with sleep medicine clinic * Assessment & Plan Note - Myah Singh MD - 11/18/2025 10:32 PM ESTAssociated Problem(s): Alzheimer disease (HCC) -Neurologist: Dr. Estevez, last seen in Jul 2025 -Evaluated with EEG slow wave in 2014 and normal in 2015 -Head CT showed atrophy of brain and microvascular disease -Continue donepezil -Continue memantine * Assessment & Plan Note - Myah Singh MD - 11/18/2025 10:32 PM ESTAssociated Problem(s): Anemia - anemia of chronic disease (CKD, cirrhosis) - continue ferrous sulfate - check lab * Assessment & Plan Note - Myah Singh MD - 11/18/2025 10:30 PM ESTAssociated Problem(s): Stage 3 chronic kidney disease (CMS/HCC) (HCC) -Billiard Table Assembler: Dr. Martinez -Avoid nephrotoxic drugs and use renal dosing. -Recheck renal function today -Held empagliflozin briefly when she had UTI in January 2025, but resumed, currently taking at low-dose, 10mg daily. * Assessment & Plan Note - Myah Singh MD - 11/18/2025 10:29 PM ESTAssociated Problem(s): Recurrent urinary tract infection - Followed by Dr. Vallecillo, last seen in Jun 2024 - most recent documented UTI in Jul 2025. Urine culture grew E. Coli resistant to cipro. Prescribed TMP/SMX in ED. - caregiver states patient was diagnosed and treated for UTI in this month, Oct 2025 (urine cultureis not available) - Continue adequate hydration - On SGLT-2 inhibitor, empagliflozin, continue with caution - She had Diagnosis of recurrent UTI prior to starting SGLT2i. No increased UTI frequency since initiation of SGLT2i. * Assessment & Plan Note - Myah Singh MD - 11/18/2025 10:27 PM ESTAssociated Problem(s): Overactive bladder - in a setting of dementia, DM2, and SGLT-2 inhibitor use - Followed by [facility], last seen in Jun 2024 - Treatment Hx: Tried oxybutynin, which was discontinued due to anticholinergic effect. Gemtesa wasprohibitory expensive - Continue mirabegron as prescribed, advised to have drug holiday from mirabegron, resume when pt'ssymptoms worsen * Assessment & Plan Note - Myah Singh MD - 11/18/2025 10:27 PM ESTAssociated Problem(s): Mixed stress and urge urinary incontinence - Pt has OAB, DM2, and dementia - She is on diuretics and SGLT-2 inhibitor. - Followed by urologist, last seen in Jun 2024 - Continue mirabegron - Continue using briefs. * Assessment & Plan Note - Myah Singh MD - 11/18/2025 10:27 PM ESTAssociated Problem(s): Gastroesophageal reflux disease - continue famotidine and omeprazole * Assessment & Plan Note - Myah Singh MD - 11/18/2025 10:27 PM ESTAssociated Problem(s): Cirrhosis of liver (CMS/HCC) (HCC) -previously eavluated by GIDr. Jaffe. Last seen in 2015. Impression was due to fatty liver disease. Follow up prn. -Most recent US: 10/25/22 Heterogeneous liver parenchyma with a nodular contour suggesting cirrhosis; Nonobstructive 2.7 cm calculus in the upper pole of the right kidney; Simple left renal cysts forwhich no imaging follow-up is recommended. -Most recent abd imaging was CT in Jun 2024 which showed chronic liver disease / cirrhosis. -Avoid hepatotoxic drugs. -Work on weight management * Assessment & Plan Note - Myah Singh MD - 11/18/2025 10:26 PM ESTAssociated Problem(s): Diabetes mellitus, type 2 (HCC) - Dx 2021 - Hgb A1C 6.2% on 09/11/23, 6.0% on 12/28/22 - Continue working on lifestyle modifications - Continue checking glucose: Freestyle Lite gluocemeter - Continue empagliflozin with caution; consider discontinuing if patient's UTI frequency worsens. - Microalbumin test: difficulty giving urine due to OAB - Lipid profile: 12/29/22 TC 103; TG 89; HDL 43; LDL 43 - Diabetic eye exam: - Foot exam: 05/08/23 * Assessment & Plan Note - Myah Singh MD - 11/18/2025 10:26 PM ESTAssociated Problem(s): Thrombocytopenia (CMS/HCC) - in a setting of cirrhosis, compensated - monitor periodically * Assessment & Plan Note - Myah Singh MD - 11/18/2025 10:25 PM ESTAssociated Problem(s): Hypertension -Goal BP < 130/80 per ACC/AHA guideline (Treatment threshold >= 130/80 ) -BP at goal -ASCVD Risk: CKD, age, NSTEMI, Hx CVA/TIA, DM2 -Etymology Teacher: Previously [facility], pt has a new appt on 01/23/23 (Grade II-III/Vl systolic murmur) -10/14/22 TTE Normal LV function with EF 60-65%, moderate aortic stenosis -Continue working on lifestyle modifications. -Continue lisinopril 20 mg daily. (Caution with ) -Continue amlodipine 5 mg daily. (Caution with ) -Follow up in 3-6 mo, sooner if any problem arises * Assessment & Plan Note - Myah Singh MD - 11/18/2025 10:25 PM ESTAssociated Problem(s): Dyslipidemia -Last Lipid Profile: Dec 2023 -Continue atorvastatin 20 mg at bedtime -Continue working on lifestyle modifications -Update lab documented in this encounter Plan of Treatment Scheduled Orders Name Type Priority Associated Diagnoses Orde r Schedule Vitamin B12 (Cobalamin) and Folate Panel, Serum Lab Routine Type 2 diabetes mellitus with stage 3 chronic kidney disease, without long-term current use of insulin, unspecified whether stage 3a or 3b CKD (HCC) Expected: 11/18/2025 (Approximate), Expires: 11/18/2026 Albumin, Random Urine W/Creatinine Lab Routine Type 2 diabetes mellitus with stage 3 chronic kidney disease, without long-term current use of insulin, unspecified whether stage 3a or 3b CKD (HCC) Primary hypertension Expected: 11/18/2025 (Approximate), Expires: 11/18/2026 Hemoglobin A1c Lab Routine Type 2 diabetes mellitus with stage 3 chronic kidney disease, without long-term current use of insulin, unspecified whether stage 3a or 3b CKD (HCC) Expected: 11/18/2025 (Approximate), Expires: 11/18/2026 Comprehensive Metabolic Panel Lab Routine Primary hypertension Expected: 11/18/2025 (Approximate), Expires: 11/18/2026 Lipid Panel with Reflex to Direct LDL Lab Routine Dyslipidemia Type 2 diabetes mellitus with stage 3 chronic kidney disease, without long-term current use of insulin, unspecified whether stage 3a or 3b CKD (HCC) Expected: 11/18/2025 (Approximate), Expires: 11/18/2026 TSH with Reflex to Free T4 Lab Routine Anemia in other chronic diseases classified elsewhere Expected: 11/18/2025 (Approximate), Expires: 11/18/2026 CBC auto differential Lab Routine Anemia in other chronic diseases classified elsewhere Thrombocytopenia (CMS/HCC) Expected: 11/18/2025 (Approximate), Expires: 11/18/2026 Scheduled Referrals Name Type Priority Associated Diagnoses Orde r Schedule Referral to Podiatry Outpatient Referral Urgent Type 2 diabetes mellitus with stage 3 chronic kidney disease, without long-term current use of insulin, unspecified whether stage 3a or 3b CKD (HCC) Expected: 11/18/2025 (Approximate), Expires: 11/18/2026 documented as of this encounter Goals Goal Patient Goal Type Associated Problems Recent Progress Patient-Stated? Author Help patients manage their type 2 diabetes Care Plan Help patients manage their type 2 diabetes No Tobin Desir Weekly blood pressure task Care Plan Weekly blood pressure task No Tobin Desir Help patients manage their type 2 diabetes Care Plan Help patients manage their type 2 diabetes No Tobin Desir Patient has chronic kidney disease Care Plan Patient has chronic kidney disease No Tobin Desir Weekly blood pressure task Care Plan Weekly blood pressure task No Tobin Desir Patient has chronic kidney disease Care Plan Patient has chronic kidney disease No Tobin Desir Weekly blood pressure task Care Plan Weekly blood pressure task No Allyn Nur MA Weekly blood pressure task Care Plan Weekly blood pressure task No Allyn Nur [place] Patient has chronic kidney disease Care Plan Patient has chronic kidney disease No Allyn Nur [place] Patient has chronic kidney disease Care Plan Patient has chronic kidney disease No Allyn Nur MA Weekly blood pressure task Care Plan Weekly blood pressure task No Allyn Nur [place] Weekly blood pressure task Care Plan Weekly blood pressure task No Allyn Nur [place] Patient has chronic kidney disease Care Plan Patient has chronic kidney disease No Allyn Nur [place] Patient has chronic kidney disease Care Plan Patient has chronic kidney disease No Allyn Nur [place] Weekly blood pressure task Care Plan Weekly blood pressure task No Ariadne Hernandez RN Weekly blood pressure task Care Plan Weekly blood pressure task No Ariadne Hernandez RN Patient has chronic kidney disease Care Plan Patient has chronic kidney disease No Ariadne Hernandez RN Patient has chronic kidney disease Care Plan Patient has chronic kidney disease No Ariadne Hernandez RN documented as of this encounter Visit Diagnoses Diagnosis Dyslipidemia- Primary Other and unspecified hyperlipidemia Type 2 diabetes mellitus with stage 3 chronic kidney disease, without long-term current use of insulin, unspecified whether stage 3a or 3b CKD (HCC) Primary hypertension Unspecified essential hypertension Hepatic cirrhosis, unspecified hepatic cirrhosis type, unspecified whether ascites present (HCC) Stage 3b chronic kidney disease (CMS/HCC) (HCC) Recurrent urinary tract infection Urinary tract infection, site not specified Overactive bladder 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 Mixed incontinence urge and stress (male)(female) Anemia in other chronic diseases classified elsewhere Alzheimer disease (HCC) Alzheimer's disease Moderate vascular dementia, unspecified whether behavioral, psychotic, or mood disturbance or anxiety (CMS/[facility]) (HCC) History of CVA (cerebrovascular accident) Transient ischemic attack (TIA), and cerebral infarction without residual deficits Moderate persistent asthma without complication Obstructive sleep apnea syndrome Obstructive sleep apnea (adult) (pediatric) Thrombocytopenia ([facility]) Unspecified thrombocytopenia Gastroesophageal reflux disease, unspecified whether esophagitis present Allergic rhinitis, unspecified seasonality, unspecified trigger documented in this encounter Additional Health Concerns Active Problems Noted Date Diagnosed Date Help patients manage their type 2 diabetes 10/30 Weekly blood pressure task 10/30/2025 Help patients manage their type 2 diabetes 10/30 Patient has chronic kidney disease 10/30/2025 Weekly blood pressure task 10/30/2025 Patient has chronic kidney disease 10/30/2025 Weekly blood pressure task 11/17/2025 Weekly blood pressure task 11/17/2025 Patient has chronic kidney disease 11/17/2025 Patient has chronic kidney disease 11/17/2025 Weekly blood pressure task 11/17/2025 Weekly blood pressure task 11/17/2025 Patient has chronic kidney disease 11/17/2025 Patient has chronic kidney disease 11/17/2025 Weekly blood pressure task 11/18/2025 Weekly blood pressure task 11/18/2025 Patient has chronic kidney disease 11/18/2025 Patient has chronic kidney disease 11/18/2025 Assessment Noted Time PHQ-9 Depression Total Score: 0 05/08/20 10:25 AM EDT documented as of this encounter Care Teams Customs Import Specialist Relationship Specialty Start Date End Date Myah Singh MD [address] [place] [address] PCP - General Family Medicine 11/08/12 [facility] 10/31/25 documented as of this encounter
--- NOTE | ~2025-11-22 | XR_ITS ---
CLINICAL HISTORY: trauma 3 views lumbar spine Comparison: None provided Findings: Exaggerated lordotic curvature of the lumbar spine. Moderate osteopenia. No significant degenerative change. No fracture or dislocation. [id number] atherosclerotic disease of the abdominal aorta. IMPRESSION: 1. Exaggerated lordotic curvature of the lumbar spine. 2. Moderate osteopenia. 3. [id number] atherosclerotic disease of the abdominal aorta. 4. No acute osseous injury. This document has been electronically signed by: Gabe Linares MD on 11/22/2025 19:11:41
--- NOTE | ~2025-11-22 | XR_ITS ---
CLINICAL HISTORY: trauma 4 views sacrum and coccyx Comparison: None provided Findings Moderate osteopenia. No significant degenerative change. No erosions. No fracture or dislocation. Mild calcified atherosclerotic disease of the abdominal aorta. IMPRESSION: 1. Moderate osteopenia. 2. No acute osseous injury. This document has been electronically signed by: Gabe Linares MD on 11/22/2025 19:11:28
[2025-11-22 17:19] VITALS: BP 130/78; PULSE 72; RESP 18; TEMP 36.9; O2SAT 96; BMI 31.9
[2025-11-22 17:27] VITALS: BP 130/78; PULSE 68
--- OUTSIDE RECORDS SUMMARY | 2025-11-22 17:52 | XMS_ITS | Encounter Summary ---
Author Organization [employer] Address [address] [facility] 7[address] [place] [address] Care Team Providers Care Chief Executive Officer Name Role Phone Myah Singh MD Primary Care Provider [phone] Reason for Visit * Reason Comments Med Refill Encounter Details Date Type Department Care Team (Late st Contact Info) Description 11/29/2023 Refill [facility] [address] [place], [place] [phone] Myah Singh MD [address] [place], [place] [phone] Vitamin D deficiency Social History Tobacco Use [...] as of this encounter Care Teams Chief Executive Officer Relationship Specialty Start Date End Date Myah Singh MD [address] [place] [id number] PCP - General Family Medicine 11/08/12 [facility] 12/31/24 07/29/25 [facility] 10/31/25 documented as of this encounter
--- OUTSIDE RECORDS SUMMARY | 2025-11-22 17:52 | XMS_ITS | Continuity of Care Document ---
Author Organization [employer] [facility] Address [address] [place] [address] Care Team Providers Care Mathematical Engineer Name Role Phone HIM CCA OTHER Assessment Encounter Date Assessment Date Assessment LastModified by Organization Details LastModified Time 11/18/2025 11/18/2025 I have reviewed and agree with the assessment and plan as documented by the organizational effectiveness director. I provided real-time medical direction for this encounter and was immediately available to provide additional phone-based assistance as needed. History as noted in EMR and by organizational effectiveness director. I would add / emphasize: Patient seen for multiple complaints after recent hospitalization and rehab stay. Had recent PCP visit but family did not relay all complaints at that time per report. Baseline dementia so family is at bedside and providing history. Specifically family is concerned about: Ongoing UTI sxs: overall improved though not completely resolved. Cx w/ >100K CFU Ecoli sensitive to macrobid which was rxd x 5 days, just received another 5 day course which seems reasonable to complete given persistent symptoms and positive cx. Afebrile w/ no flank / CVA TTP so doubt pyelo. R eyelid swelling / erythema: No apparent discomfort per family but no improvement w/ course of erythromycin ointment. Advised d/c ointment and recommend follow up with ophtho or PCP for eye eval. R 3rd digit subungual hematoma. Not causing apparent discomfort or impacting baseline mobility per family. May benefit from Xray for completeness to assess for fracture but I do not believe this warrants transport to the ED at this time. IN summary: advised continuing ABX as prescribed. And patient would benefit from assistance w/ establishing close follow up likely with PCP for in - person eye eval and consideration of radiographs of foot. pallfather Not available 11/19/2025 15:10:00 Plan of Treatment Reminders Order Date Submit [...] Abnormal Flag Note LastModifiedBy Organization Detail LastModifiedTime 11/12/2011/16/2025 URINE CULTU RE, ROUTI NE urine culture, routine Final report abnormal Not Available [facility] ([facility]) [address] [place], [address], 11/16/2025 12:05:29 11/12/2011/16/2025 URINE CULTU RE, ROUTI NE result 1 Escher ichia coli abnormal Great er than 100,0 00 colon y formi ng units per mL Not Available [facility] ([facility]) [address] [place], [address], 11/16/2025 12:05:29 11/12/20 25 11/16/2025 URINE CULTU RE, ROUTI NE antimicrobia l susceptibili ty Commen t S = Susce ptibl e; I = Inter media te; R = Resis tant P = Posit olivia; N = Negat olivia MICS are expre ssed in micro grams per mL Antib iotic RSLT# 1 RSLT# 2 RSLT# 3 RSLT# 4 Amoxi cilli n/Cla vulan ic Acid S Ampic illin S Cefaz michael S Cefep lilian S Cefox itin S Cefpo doxim e S Ceftr iaxon e S Cipro floxa marifer R Ertap enem S Genta micin S Levof loxac in S Merop enem S Nitro furan toin S Piper acill in/Ta zobac lora S Tetra cycli ne S Tobra mycin S Trime thopr im/Dang lfa S Not Available [facility] ([facility]) [address] [place], [address], 11/16/2025 12:05:29 Result Notes None recorded. Medical Equipment None Reported. Allergies Allergen ID Allergen Name Allergen Category Reaction Reaction Severity Criticality Documentation Date Start Date Code Code System Note Provider Name and Address Organization Details Recorded Time benzocain e / butamben / tetracain e medicatio n Not available Not available Not available 11/11/2025 16750 7 RxNorm Not Available [employer] - prod 18:42:47 83207 morphine medicatio n Not available Not available Not available 11/11/2025 7052 RxNorm Not Available [facility] - production 5 11:57:09 19621 Reglan medicatio n Not available Not available Not available 11/11/2025 9230 [facility] 30883 tetracain e medicatio n Not available Not available Not available 11/11/2025 63863 RxNorm Not Available [facility] - production 11:01:54 86495 benzocain e medicatio n Not available Not available Not available 11/11/2025 1399 Rx[facility] Available [facility] 11:01:54 51242 butamben medicatio n Not available Not available Not available 11/11/20252023 14690 RxNorm Not Available [employer] - prod 18:42:48 87639 metoclopr amide Not available Not available Not available Not available 11/11/2025 6915 Rx[facility] Not Available [facility] 11:01:54 78999 ceftazidi me anhydrous medicatio n Not available Not available Not available 11/11/2025 32780 84 RxNorm [facility] Available [facility] 11:01:54 01232 tetracycl ine medicatio n Not available Not available Not available 11/12/2025 66198 RxNorm Not Available [facility] 11:57:09 14566 dobutamin e medicatio n Not available Not available Not available 11/12/2025 3616 RxNorm Not Available [facility] 11:57:09 Medications Name Sig Start Date Stop Date [...] Not Available Not Available No t Available Macrobid 100 mg capsule Take 1 capsule by oral route for 5 days. 2024 active Not Available Not Available Not Avai lable hydrocortiso ne 1 % topical cream active [...] Available No t Available Vitals Date Recorded Body temperature Body height Oxygen saturation Respiratory rate Heart rate Body weight Systolic And Diastolic Provider Name and Address Organization Details Last Updated DateTime 5 98.1 [degF] 160.02 cm 94 % 18 /min 83 /min 84025.8 88 g 99/68 mm[Hg] Not Available [facility] - production 14:53:22 Social History None recorded. Functional Status None recorded. Mental Status None recorded. Family History Nothing Reported. Medical History No medical history recorded. Gynecological HistoryNo gynecological history recorded. Obstetrics History GPAL:G 0 P 0 0 0 0 Past Encounters Encounter ID Performer Location Encounter Start Date Encounter Closed Date Diagnosis/Indication Diagnosis SNOMED-CT Code Diagnosis ICD10 Code Diagnosis IMO Codes Diagnosis Note [id number] MARISSA MAURICE MD [facility] [address] [address] 11/11/2025 18:42:11 11/11/2025 21:30:48 Malodorous urine 339211190 R82.90 [id number] Remigio Juan MD [facility] [address] [address] 11/12/2025 12:58:07 11/12/2025 16:34:43 Urinary tract infectious disease 12809829 N39.0 [id number] Tahir Trotter MD [facility] [address] [address] 11/18/2025 14:53:10 11/19/2025 17:53:59 Multiple symptoms 49893353 R68.89 [id number] Health Concerns Section Related Observation LastModified by Organization Detai ls LastModified Time None Recorded Concern Status LastModified by Organization Details LastModified Time None Recorded Payers Encounter Date Sequence Insurance Name Policy Number Policy Gonzalez Covered Member ID Gonzalez Member ID Guarantor Name 11/18/2025 1 [facility] - DOS ON OR AFTER 2023 - DUAL ELIGIBLE - NURSING HOME OPTIONS AND ONE C[employer] (MEDICARE REPLACEMENT/ADV ANTAGE - HMO) Sienna Mendez [id number] Sienna Mendez Notes Date Note Type Note Provider Name and Address Organization Details Recorded Time 11/18/2025 text/html HPI: Patient had telehealth appointment today with PCP Dr. Singh. Per provider: just discharged from the long term recently and now has right eye swelling and dark discoloration of her right 5th toes. It is getting darker. Patient has dementia and does not say much. Her caregiver is having a difficulty breathing due to asthma exacerbation. ................... ................... ................... ................... ................... ................... ................... ........ [facility] Nurse Triage Notes (Natty Jin): Chief Complaints: Breathing Problems, Eye Complaint, Wound Care PMH: Congestive Heart Failure, Coronary Artery Disease, Hypertension, Hyperlipidemia, Chronic Kidney Disease, Diabetes Mellitus Type 2, Asthma, Dementia (e.g., Alzheimer's Disease), Cirrhosis, Stroke PMH Reviewed at 11/18/2025 - : (ET) Allergies Reviewed at 11/18/2025 - : (ET) Comments: Reviewed HPI. ................... ................... ................... ................... ................... ................... ................... ........ Casing Finisher And Stuffer Note From Promise Siddiqui: Sent to a call for a pt with right eyelid swelling. [facility] arrives on scene, pt is alert and confused at baseline, airway is patent. Pt has dementia, and ambulates with a walker. Family states pt was evaluated last week for a UTI and right eyelid swelling. Pt was prescribed Macrobid (finished yesterday), but family just picked up another prescription for Macrobid (x5 days) that was prescribed yesterday. Family states pt's UTI symptoms have decreased, but have not resolved. Family has been using Erythromycin ointment on right eye with no change. Family also expresses concern about pain at pt's tailbone (from a fall in rehab) and darkening of 3rd digit toenail on right foot since coming home from rehab on 10/29. Family states pt has not received x-rays of tailbone or toe. Pt had telehealth visit with PCP today, but tailbone was not discussed. BP:99/68, P:83, RR:18, SpO2:94% RA, T:98.1; Head: unremarkable; Lung sounds: clear bilaterally; Abdomen: soft, non-tender, no distention: Back: midline sacral tenderness, no deformities noted; Extremities: 3rd digit toenail-right foot: toenail-dark, no tenderness or abnormalities of skin noted; [facility] consulted and family is advised to admnister Macrobid as prescribed, stop erythromycin for eye and f/u with parking control officer, and [facility] will send note regarding x-rays. Family advised to follow up with PCP about x-rays as well. Red flags discussed. Family has no further questions. ................... ................... ................... ................... ................... ................... ................... ........ [facility] Consulted: Tahir Trotter ................... ................... ................... ................... ................... ................... ................... ........ Disposition: Fulfilled Tahir Trotter MD [address] [facility],[address] [facility], [place], [address], [employer] 11/19/2025 15:10:11 OBGyn Episode No OBEpisode recorded.
--- OUTSIDE RECORDS SUMMARY | 2025-11-22 17:52 | XMS_ITS | Continuity of Care Document ---
Author Name [facility] Address [address] [place] [address] Organization Unknown Address [address] [place] [address] Medications No known medications Problems No known problems
--- OUTSIDE RECORDS SUMMARY | 2025-11-22 17:52 | XMS_ITS | Clinical Summary ---
Author Organization [facility] Facility Address [address] [address] Care Team Providers Care Senior It Recruiter Name Role Phone Unavailable Primary Care Provider [...] -Pt has an upcoming appt with her emissions testing technician History of cerebrovascular accident 01/07/2023 Overview (01/23/2023): Last Assessment & Plan: -around 2009 previous medical record -TIA in 2015 -Continue working on secondary prevention / risk factor management History of non-ST segment elevation myocardial i nfarction 01/07/2023 Overview (01/23/2023): Last Assessment & Plan: -Oct 2015 -Previously following with [facility], upcoming appt -Continue risk factor mangement [...] Risk: CKD, age, NSTEMI, Hx CVA/TIA, DM2 -Railroad Engineer: Previously [facility], pt has a new appt on 01/23/23 [...] Followed by Dr. Vallecillo, [facility] - Continue mirabegron as prescribed Unspecified [...] to 49 Years) Discontinued 02/23/2015, 10/04/2001 Insurance [facility] ([id number]) JOJO HICKEY [id number] [facility] ([id number])
--- OUTSIDE RECORDS SUMMARY | 2025-11-22 17:53 | XMS_ITS | Encounter Summary ---
Author Organization [employer] Address [address] [place] [address] Care Team Providers Care Club Attendant Name Role Phone Tony Arreola MD Primary Care Provider [phone] Encounter Details Date Type Department Care Team (Late st Contact Info) Description 12/21/2024 Lab Requisition [facility] [address] [place] [address] Tony Arreola MD [address] [facility] [address] [place], [address] Weakness; Unspecified dementia, unspecified severity, without [...] mmol/L LAB CHEMISTRY METHOD 12/23/2024 12:53 PM [facility] Potassium 4.2 3.5 - 5.5 mmol/L LAB CHEMISTRY METHOD 12/23/2024 12:53 PM [facility] Chloride 111(H) 96 - 110 mmol/L LAB CHEMISTRY METHOD 12/23/2024 12:53 PM [facility] CO2 28 21 - 32 mmol/L LAB CHEMISTRY METHOD 12/23/2024 12:53 PM [facility] Anion Gap 5 3 - 11 LAB CHEMISTRY METHOD 12/23/2024 12:53 PM [facility] Glucose 84 70 - 100 mg/dL LAB CHEMISTRY METHOD 12/23/2024 12:53 PM [facility] BUN 22 5 - 25 mg/dL LAB CHEMISTRY METHOD 12/23/2024 12:53 PM [facility] Creatinine 1.25(H) 0.50 - 1.10 mg/dL LAB CHEMISTRY METHOD 12/23/2024 12:53 PM [facility] eGFR 42(L) >=60 mL/min/1. 73m2 LAB CHEMISTRY METHOD 12/23/2024 12:53 PM [facility] Comment:Calculation based on the Chronic Kidney Disease Epidemiology Collaboration (CKD-EPI) equation refit without adjustment for race. BUN/Creatinine Ratio 17.6 LAB CHEMISTRY METHOD 12/23/2024 12:53 PM [facility] Calcium 9.3 8.5 - 10.5 mg/dL LAB CHEMISTRY METHOD 12/23/2024 12:53 PM [facility] Blood Venous blood specimen / Unknown Venipuncture / Unknown 12/23/2024 6:50 AM EST 12/23/2024 10:55 AM EST us Tony Arreola MD LAB BLOOD ORDERABLES Final Resul t [facility] [address] [place] [address], * (ABNORMAL) Complete blood count (12/23/2024 6:50 AM EST) [facility] WBC 6.0 4.8 - 10.8 K/mcL LAB HEMETOLOGY METHOD 12/23/2024 12:49 PM [facility] RBC 4.70 3.80 - 4.80 M/mcL LAB HEMETOLOGY METHOD 12/23/2024 12:49 PM [facility] Hemoglobin 13.4 11.5 - 16.0 g/dL LAB HEMETOLOGY METHOD 12/23/2024 12:49 PM [facility] Hematocrit 43.6 35.0 - 47.0 % LAB HEMETOLOGY METHOD 12/23/2024 12:49 PM [facility] MCV 93.6 79.0 - 98.0 FL LAB HEMETOLOGY METHOD 12/23/2024 12:49 PM [facility] MCH 28.8 27.0 - 32.0 pcg LAB HEMETOLOGY METHOD 12/23/2024 12:49 PM [facility] MCHC 30.7(L) 32.0 - 37.0 g/dL LAB HEMETOLOGY METHOD 12/23/2024 12:49 PM [facility] RDW 14.8 11.0 - 15.0 % LAB HEMETOLOGY METHOD 12/23/2024 12:49 PM [facility] Platelets 142 130 - 400 K/mcL LAB HEMETOLOGY METHOD 12/23/2024 12:49 PM [facility] MPV 12.0(H) 7.0 - 11.0 FL LAB HEMETOLOGY METHOD 12/23/2024 12:49 PM [facility] NRBC 0.0 <1.0 % LAB HEMETOLOGY METHOD 12/23/2024 12:49 PM [facility] NRBC Absolute 0.00 <0.10 K/mcL LAB HEMETOLOGY METHOD 12/23/2024 12:49 PM EST [facility] Blood Venous blood specimen / Unknown Venipuncture / Unknown 12/23/2024 6:50 AM EST 12/23/2024 10:55 AM EST Tony Arreola MD LAB BLOOD ORDERABLES Final Resul t [facility] [address] [place] [address], documented in this encounter Visit Diagnoses Diagnosis Weakness Other malaise and fatigue Unspecified dementia, unspecified severity, without behavioral disturbance, psychotic disturbance, mood disturbance, and anxiety (CMS/HCC V24, CMS/HCC V28) documented in this encounter Care Teams Club Attendant Relationship Specialty Start Date End Date Tony Arreola MD [address] [place] [address], [phone] PCP - General Family Medicine 12/14/24 documented as of this encounter
--- OUTSIDE RECORDS SUMMARY | 2025-11-22 17:53 | XMS_ITS | Encounter Summary ---
Author Organization [employer] Address [address] [facility] [address] [place] [address] Care Team Providers Care Supervisor Name Role Phone Myah Singh MD Primary Care Provider [phone] Encounter Details Date Type Department Care Team (Late st Contact Info) Description 01/30/2023 Telephone [facility] [address] [place], [place] [phone] Myah Singh MD [address] [place], [place] [phone] Social History Tobacco Use Types Packs/Day Years [...] on filedocumented in this encounter Care Teams Supervisor Relationship Specialty Start Date End Date Myah Singh MD [address] [place], [place] [phone] PCP - General Family Medicine 11/08/12 [facility] 12/31/24 07/29/25 [facility] 10/31/25 documented as of this encounter
--- OUTSIDE RECORDS SUMMARY | 2025-11-22 17:53 | XMS_ITS | Continuity of Care Document ---
Author Organization [facility] [place] [facility], [facility] Address [address] [place] [address] Care Team Providers Care Technical Sales Support Specialist Name Role Phone HIM CCA OTHER Assessment Encounter Date Assessment Date Assessment LastModified by Organization Details LastModified Time 11/12/2025 11/12/2025 I have reviewed and agree with the assessment and plan as documented by the maintenance foreman. I provided real time medical direction for this encounter and was immediately available to provide additional phone based assistance as needed. History as noted by maintenance foreman. Pt with history of Congestive Heart Failure, Coronary Artery Disease, Hypertension, Hyperlipidemia, Chronic Kidney Disease, Diabetes Mellitus Type 2, Asthma. Pt and family report that pt has had UTIs in past and for the last 3 days has had UTI symptoms with pt reporting that it feels uncomfortable when she urinates and she has had flank pain. She has also had increased fatigue. No hematuria, nausea, vomiting, fevers or chills. Pt has been eating and drinking normally. Urine dip: positive for nitrite and leukocytes. Impression: Pt with 3 days of symptoms of uncomplicated UTI. No fevers or vomiting. No abdominal or CVA tenderness. Pt appears well with normal vitals and exam. Urine dip is c/w UTI and UCx will be sent to [facility]. Pt medicated with macrobid 100mg po now and I prescribe macrobid 100mg bid x5 days. Pt and family told to f/u with [facility] if her symptoms are not feeling improved after 2-3 days and to seek medical attention right away with any worsening or new symptoms, which are reviewed with them. btils Not available 11/12/2025 14:54:57 Plan of Treatment Reminders Order Date Submit Date Provider Last Modified By Organization Details Last Modified Time Details Appointments None recorded. Lab urinalysi s, dipstick 2024 025 [facility], [address] [place], [address] 15:13:32 culture, urine 2024 025 [facility] (Centralized Electronic Ordering - All Locations), Patient Can Go To The Location Of Their Choice, [id number] 12:06:22 Referral None recorded. Procedures None recorded. Surgeries None recorded. Imaging None recorded. Medication Orders [facility]robid 100 mg capsule 2024 025 [facility] [address] [place] [address], [id number], 13:15:29 Macrobid 100 mg capsule 2024 025 [id number], [address] [facility], [place], [address], 13:08:56 Patient TargetsNo targets recorded. Patient InstructionsNo instructions recorded. Reason for Referral None Reported. Results Created Date Observation Date Name Description Value Unit Range Abnormal Flag Note LastModifiedBy Organization Detail LastModifiedTime 11/12/2011/16/2025 URINE CULTU RE, LUCIANO NE urine culture, routine Final report abnormal Not Available [facility] [address] [place], [address], 11/16/2025 12:05:29 11/12/2011/16/2025 URINE CULTU RELUCIANO NE result 1 Escher ichia coli abnormal Great er than 100,0 00 colon y formi ng units per mL Not Available [facility] [address] [place], [address], 11/16/2025 12:05:29 11/12/2011/16/2025 URINE CULTU RE, NEMESIOI NE antimicrobia l susceptibili ty Commen t [...] thopr im/Dang lfa S Not Available [facility] [address] [facility], [place], [address], 11/16/2025 12:05:29 Result Notes None recorded. Medical Equipment None Reported. Allergies Allergen ID Allergen Name Allergen Category Reaction Reaction Severity Criticality Documentation Date Start Date Code Code System Note Provider Name and Address Organization Details Recorded Time benzocain e / butamben / tetracain e medicatio n Not available Not available Not available 11/11/2025 43389 7 RxNorm Not Available [employer] - prod 18:42:47 63344 morphine medicatio n Not available Not available Not available 11/11/2025 7052 RxNorm Not Available [facility] - production 11:57:09 74078 Reglan medicatio n Not available Not available Not available 11/11/2025 9230 RxNorm Not Available [facility] - production 11:01:54 72870 tetracain e medicatio n Not available Not available Not available 11/11/2025 18760 RxNorm Not Available [facility] - production 11:01:54 87550 benzocain e medicatio n Not available Not available Not available 11/11/2025 1399 RxNorm Not Available [facility] - production 11:01:54 02893 butamben medicatio n Not available Not available Not available 11/11/20252023 72709 RxNorm Not Available [employer] - prod 12/16/202 5 18:42:48 39404 metoclopr amide Not available Not available Not available Not available 11/11/2025 6915 RxNorm Not Available [facility] 11:01:54 56908 ceftazidi me anhydrous medicatio n Not available Not available Not available 11/11/2025 62944 84 RxNorm Not Available [facility] 11:01:54 27194 tetracycl ine medicatio n Not available Not available Not available 11/12/2025 05690 RxNorm Not Available [facility] 11:57:09 00766 dobutamin e medicatio n Not available Not available Not available 11/12/2025 3616 RxNorm Not Available [facility] 11:57:09 Medications Name Sig Start Date Stop [...] Available No t Available Vitals Date Recorded Heart rate Respiratory rate Oxygen saturation Body temperature Systolic And Diastolic Provider Name and Address Organization Details Last Updated DateTime 5 94 /min 18 /min 96 % 98.4 [degF] 142/80 mm[Hg] Not Available [employer] - production 5 12:58:12 Social History None recorded. Functional Status None recorded. Mental Status None recorded. Family History Nothing Reported. Medical History No medical history recorded. Gynecological HistoryNo gynecological history recorded. Obstetrics History GPAL:G 0 P 0 0 0 0 Past Encounters Encounter ID Performer Location Encounter Start Date Encounter Closed Date Diagnosis/Indication Diagnosis SNOMED-CT Code Diagnosis ICD10 Code Diagnosis IMO Codes Diagnosis Note [id number] MARISSA MAURICE MD [facility] ED Medical [address] [address] 11/11/2025 18:42:11 11/11/2025 21:30:48 Malodorous urine 470753280 R82.90 [id number] Remigio Juan MD Main-[facility] ED Medical [facility] [address] [place] [address] 11/12/2025 12:58:07 11/12/2025 16:34:43 Urinary tract infectious disease 09106679 N39.0 [id number] Health Concerns Section Related Observation LastModified by Organization Detai ls LastModified Time None Recorded Concern Status LastModified by Organization Details LastModified Time None Recorded Payers Encounter Date Sequence Insurance Name Policy Number Policy Gonzalez Covered Member ID Gonzalez Member ID Guarantor Name 11/12/2025 1 [facility] - DOS ON OR AFTER 2023 - DUAL ELIGIBLE - PENITENTIARY OPTIONS AND ONE CARE (MEDICARE REPLACEMENT/ADV ANTAGE - HMO) Sienna Mendez [id number] iSenna Mendez Notes Date Note Type Note Provider Name and Address Organization Details Recorded Time 11/12/2025 text/html ROS as noted in the HPI This was a supervised home visit with maintenance foreman Mariano Garcia. CRC Nurse Triage Notes (Maricruz Rendon): Reason For Request: collected urine sample Patient Reports: Frequent and increased urination with flank pain; Painful urination with or without feverDenies: Unable to void greater than 5 hours Erection that will not go away after 2 hours Fall or trauma that results in urinary incontinence in the setting of pain Fall or injury that results in incontinence in the absence of pain Lower back pain either unilateral or bilateral, unable to void, painful urination -hematuria Painful urination Inability to fully empty bladder Chief Complaints: Urinary SymptomsPMH: Congestive Heart Failure, Coronary Artery Disease, Hypertension, Hyperlipidemia, Chronic Kidney Disease, Diabetes Mellitus Type 2, AsthmaPMH Reviewed at 11/12/2025 - 11:57 (ET)Allergies Reviewed at 11/12/2025 - 11:57 (ET)Comments: 89 y.o female complains of Urinary SymptomsSeen by [facility] on 11/11/25 unable to collect a urine sample atthat time.11/12/25 1153 visit processed for urine collection. Granddaughter was able to obtain /a urine sample. no changes from yesterday. I provided information on the mobile health provider response time and advised the patient and/or caregiver to monitor reported signs and symptoms. I discussed the warning signs of when to seek emergency care. Oil Processing Technician Organization Information for Mariano Garcia Legal Name: [employer]. A ddress: [address] [place] [address], USMedical Director: Loco Denton [facility] [id number] Oil Processing Technician POC Test Results from Mariano Garcia Urine Dipstick (12:47:46)Urine leukocytes: 70 +-LEUUrine nitrites: +NITUrine urobilinogen: 0.2 3.5UROUrine protein: 15 +- 0.15PROUrine pH: 5.0pHUrine blood: -BLOUrine specific gravity: 1.025SGUrine ketones: 5 +- 0.5KETUrine bilirubin: 1 + 17BILUrine glucose: -GLUAttachments uploaded as part of this test result can be found under Documents section. ................... ................... ................... ................... ................... ................... ................... ........ Oil Processing Technician Note From Mariano Garcia: Encountered patient supine and conscious with family present. Family reports patient has been experiencing 3 or 4 days of urinary discomfort and retention, accompanied by increased fatigue; All she does is sleep these past few days. When prompted patient denies chest pain, shortness of breath and fevers. Family expresses today's visit is a repeat from 11/11/25 where patient was unable to produce urine. Patient able to urinate today, urinalysis dip performed; values uploaded via [employer]. Culture retrieved for [facility] [employer] delivery. Skin warm, dry and of appropriate color for ethnicity. Head and neck, free of trauma and edema. -JVD. Breath sounds present, clear and equal bilaterally in the apexes but exhibits rales in the bases bilaterally; [facility] notified. Abdomen is soft, non-tender and non-distended. Extremities free of trauma and edema. [facility] Contacted: states they will treat patient for suspected UTI based on presentation and urinalysis results. 100mg PO Macrobid administered after medication rights were reconciled with family. [facility] states they will send a prescription for further treatment to a pharmacy of patients choice. Patient and family were encouraged to monitor for worsening symptoms, chest pain, shortness of breath or fevers and was encouraged to seek further medical attention, including 911, if said symptoms were to develop. Patient and family verbalize understanding of the plan and state they are comfortable with patient remaining home today. [facility] Lab Orders: urinalysis, dipstick: Performed culture, urine: Performed ................... ................... ................... ................... ................... ................... ................... ........ [facility] Consulted: Remigio Juan ................... ................... ................... ................... ................... ................... ................... ........ Disposition: Bam Juan MD [address] [facility],[address], [place], [address], [email or web address] 11/12/2025 14:55:22 OBGyn Episode No OBEpisode recorded.
--- OUTSIDE RECORDS SUMMARY | 2025-11-22 17:53 | XMS_ITS | Patient Health Record ---
Author Organization [facility] Address [address] [place] [address] Care Team Providers Care Reverse Unit Operator Name Role Phone Samantha GARCIA, Myah Primary Care Provider Cali Bailey [phone] Allergies Allergen (clinical drug ingredient) Drug/Non Drug [...] Notes Problem Gastroesophageal reflux disease without esophagitis (856589084) Gastroesophageal reflux disease without esophagitis (K21.9) Active confirmed Problem Elevated liver enzymes level (022129176) Elevated liver enzymes (R74.8) Active confirmed Problem Constipation (44264675) Constipation, unspecified constipation type (K59.00) Active confirmed Plan Of Treatment Pending Test Test Name Order Date LIVER PROFILE 04/06/2016 Insurance Providers Payer Name Payer Address Payer Phone Subscriber Number Group Number Insured Name Patient Relationship to Insured Coverage Start Date Coverage End Date [facility] [address] [place] [phone] [id number] ZITA PAPPAS Self - patient is the insured MEDICARE OF [place] [address] [place] [address] [id number] ZITA PAPPAS Self - patient is the insured Medical (General) History Medical History History ICD Code GERD--UPPER ENDOSCOPY & COLO NOSCOPY IN 2007--Large HH with tiny area of Polanco's esophagus, no dysplasia; normal colonoscopy DEPRESSION HYPERTENSION HISTORY OF STROKE Kidney stones Denies [place],DM,lung disease,renal disease minor stroke and heart attack [...]
--- OUTSIDE RECORDS SUMMARY | 2025-11-22 17:53 | XMS_ITS | Encounter Summary ---
Author Organization [employer] Address [address] [facility] [address] [place] [address] Care Team Providers Care Laundry Or Dry Cleaners Counter Clerk Name Role Phone Myah Singh MD Primary Care Provider [phone] Encounter Details Date Type Department Care Team ([facility] st Contact Info) Description 03/26/2025 Telephone [facility] [address] [place], [place] [phone] Myah Singh MD [address] [place], [place] [phone] Social History Tobacco Use Types Packs/Day Years [...] documented as of this encounter Care Teams Laundry Or Dry Cleaners Counter Clerk Relationship Specialty Start Date End Date Myah Singh MD [address] [place] [address] PCP - General Family Medicine 11/08/12 [facility] 12/31/24 07/29/25 [facility] 10/31/25 documented as of this encounter
--- OUTSIDE RECORDS SUMMARY | 2025-11-22 17:53 | XMS_ITS | Encounter Summary ---
Author Organization [employer] Address [address] [place] [address] Care Team Providers Care Corrective Therapy Aide Teacher Name Role Phone Tony Arreola MD Primary Care Provider [phone] Encounter Details Date Type Department Care Team (Late st Contact Info) Description 02/24/2025 Lab Requisition [facility] Main Lab [address] [facility] [place] [address] Venus Mayberry MD [address] [place], [place] [id number] Essential (primary) hypertension; Type 2 diabetes mellitus [...] * Vitamin B12 (02/24/2025 6:34 AM EDT) [facility] Vitamin B-12 324 250 - 900 pcg/mL LAB CHEMISTRY METHOD 02/24/2025 12:24 PM EDT [facility] Blood Venous blood specimen / Unknown Venipuncture / Unknown 02/24/2025 6:34 AM EDT 02/24/2025 10:44 AM EDT us Venus Mayberry MD LAB BLOOD ORDERABLES Final Resul t Performing Organization Address City/[facility]/ZIP Co de Phone Number [facility] [address] [place] [address], [place] [phone] * Folate (02/24/2025 6:34 AM EDT) [facility] Folate 11.3 2.8 - 17.0 ng/ml LAB CHEMISTRY METHOD 02/24/2025 12:24 PM EDT [facility] Blood Venous blood specimen / Unknown Venipuncture / Unknown 02/24/2025 6:34 AM EDT 02/24/2025 10:44 AM EDT us Venus Mayberry MD LAB BLOOD ORDERABLES Final Resul t Performing Organization Address City/[facility]/ZIP Co de Phone Number [facility] [address] [place] [address], [place] [phone] * (ABNORMAL) Vitamin D 25 hydroxy (02/24/2025 6:34 AM EDT) Pathologist [facility] Vit D, 25-Hydroxy 29.9(L) 30.0 - 80.0 ng/mL LAB CHEMISTRY METHOD 02/24/2025 1:12 PM EDT [facility] Blood Venous blood specimen / Unknown Venipuncture / Unknown 02/24/2025 6:34 AM EDT 02/24/2025 10:44 AM EDT us Venus Mayberry MD LAB BLOOD ORDERABLES Final Resul t Performing Organization Address [facility] Co de Phone Number [facility] [address] [place] [address], * Thyroid stimulating hormone (02/24/2025 6:34 AM EDT) [facility] TSH 1.44 0.40 - 4.00 mcIU/mL LAB CHEMISTRY METHOD 02/24/2025 1:13 PM EDT [facility] Blood Venous blood specimen / Unknown Venipuncture / Unknown 02/24/2025 6:34 AM EDT 02/24/2025 10:44 AM EDT us Venus Mayberry MD LAB BLOOD ORDERABLES Final Resul t Performing Organization Address [facility] de Phone Number [facility] [address] [place] [address], [place] [phone] * Hemoglobin A1c (02/24/2025 6:34 AM EDT) [facility] Hemoglobin A1C 5.9 <6.5 % LAB CHEMISTRY METHOD 02/24/2025 9:29 PM EDT [facility] Mean Bld Glu Estim. 123 mg/dL LAB CHEMISTRY METHOD 02/24/2025 9:29 PM EDT [facility] Blood Venous blood specimen / Unknown Venipuncture / Unknown 02/24/2025 6:34 AM EDT 02/24/2025 10:44 AM EDT us Venus Mayberry MD LAB BLOOD ORDERABLES Final Resul t [facility] [address] [place] [address], [place] [phone] * (ABNORMAL) Comprehensive metabolic panel (02/24/2025 6:34 AM EDT) Sodium 142 133 - 145 mmol/L LAB CHEMISTRY METHOD 02/24/2025 12:24 PM EDT [facility] Potassium 4.1 3.5 - 5.5 mmol/L LAB CHEMISTRY METHOD 02/24/2025 12:24 PM [facility] Chloride 108 96 - 110 mmol/L LAB CHEMISTRY METHOD 02/24/2025 12:24 PM [facility] CO2 28 21 - 32 mmol/L LAB CHEMISTRY METHOD 02/24/2025 12:24 PM [facility] Anion Gap 6 3 - 11 LAB CHEMISTRY METHOD 02/24/2025 12:24 PM [facility] Glucose 91 70 - 100 mg/dL LAB CHEMISTRY METHOD 02/24/2025 12:24 PM [facility] BUN 30(H) 5 - 25 mg/dL LAB CHEMISTRY METHOD 02/24/2025 12:24 PM [facility] Creatinine 1.02 0.50 - 1.10 mg/dL LAB CHEMISTRY METHOD 02/24/2025 12:24 PM [facility] eGFR 53(L) >=60 mL/min/1. 73m2 LAB CHEMISTRY METHOD 02/24/2025 12:24 PM [facility] Comment:Calculation based on the Chronic Kidney Disease Epidemiology Collaboration (CKD-EPI) equation refit without adjustment for race. BUN/Creatinine Ratio 29.4 LAB CHEMISTRY METHOD 02/24/2025 12:24 PM [facility] Calcium 10.5 8.5 - 10.5 mg/dL LAB CHEMISTRY METHOD 02/24/2025 12:24 PM EDT [facility] AST (SGOT) 31 10 - 42 unit/L LAB CHEMISTRY METHOD 02/24/2025 12:24 PM EDT [facility] ALT (SGPT) 36 10 - 60 unit/L LAB CHEMISTRY METHOD 02/24/2025 12:24 PM EDT [facility] Alkaline Phosphatase 82 42 - 121 unit/L LAB CHEMISTRY METHOD 02/24/2025 12:24 PM EDT [facility] Total Protein 6.8 6.0 - 8.0 g/dL LAB CHEMISTRY METHOD 02/24[facility]2025 [facility] Albumin 3.1(L) 3.2 - 5.0 g/dL LAB CHEMISTRY METHOD 02/24/2025 12:24 PM EDT [facility] Total Bilirubin 0.4 0.0 - 1.4 mg/dL LAB CHEMISTRY METHOD 02/24/2025 12:24 PM EDT [facility] Blood Venous blood specimen / Unknown Venipuncture / Unknown 02/24/2025 6:34 AM EDT 02/24/2025 10:44 AM EDT us Venus Mayberry MD LAB BLOOD ORDERABLES Final Resul t [facility] [address] [place] [address], * (ABNORMAL) Complete blood count (02/24/2025 6:34 AM EDT) WBC 6.0 4.8 - 10.8 K/mcL LAB HEMETOLOGY METHOD 02/24/2025 1:12 PM EDT [facility] RBC 4.80 3.80 - 4.80 M/mcL LAB HEMETOLOGY METHOD 02/24/2025 1:12 PM [facility] Hemoglobin 14.3 11.5 - 16.0 g/dL LAB HEMETOLOGY METHOD 02/24/2025 1:12 PM [facility] Hematocrit 45.6 35.0 - 47.0 % LAB HEMETOLOGY METHOD 02/24/2025 1:12 PM [facility] MCV 94.2 79.0 - 98.0 FL LAB HEMETOLOGY METHOD 02/24/2025 1:12 PM [facility] MCH 29.5 27.0 - 32.0 pcg LAB HEMETOLOGY METHOD 02/24/2025 1:12 PM [facility] MCHC 31.4(L) 32.0 - 37.0 g/dL LAB HEMETOLOGY METHOD 02/24/2025 1:12 PM [facility] RDW 14.7 11.0 - 15.0 % LAB HEMETOLOGY METHOD 02/24/2025 1:12 PM [facility] Platelets 154 130 - 400 K/mcL LAB HEMETOLOGY METHOD 02/24/2025 1:12 PM [facility] MPV 11.7(H) 7.0 - 11.0 FL LAB HEMETOLOGY METHOD 02/24/2025 1:12 PM [facility] NRBC 0.0 <1.0 % LAB HEMETOLOGY METHOD 02/24/2025 1:12 PM [facility] NRBC Absolute 0.00 <0.10 K/mcL LAB HEMETOLOGY METHOD 02/24/2025 1:12 PM [facility] Blood Venous blood specimen / Unknown Venipuncture / Unknown 02/24/2025 6:34 AM EDT 02/24/2025 10:44 AM EDT Venus Mayberry MD LAB BLOOD ORDERABLES Final Resul t [facility] [address] [place] [address], documented in this encounter Visit Diagnoses Diagnosis Essential (primary) hypertension Unspecified essential hypertension Type 2 diabetes mellitus without complications (CMS/HCC V24, CMS/HCC V28) documented in this encounter Care Teams Corrective Therapy Aide Teacher Relationship Specialty Start Date End Date Tony Arreola MD [address] [place] [address], [phone] PCP - General Family Medicine 12/14/24 documented as of this encounter
--- OUTSIDE RECORDS SUMMARY | 2025-11-22 17:53 | XMS_ITS | Encounter Summary ---
Author Organization [employer] Address [address] [facility] [address] [place] [address] Care Team Providers Care Wholesale And Retail Merchant Name Role Phone Myah Singh MD Primary Care Provider [phone] Encounter Details Date Type Department Care Team (Latest Contact Info) Description 11/18/2025 Travel Social History Tobacco Use Types Packs/Day Years [...] on file documented as of this encounter Goals Goal [...] Plan Weekly blood pressure task No Ariadne Hernandez, FACUNDO Patient has chronic kidney disease Care Plan Patient has chronic kidney disease No Ariadne Hernandez RN Patient has chronic kidney disease Care Plan Patient has chronic kidney disease No Ariadne Hernandez RN documented as of this encounter Visit Diagnoses Not on filedocumented in this encounter Additional Health Concerns Active [...] documented as of this encounter Care Teams Wholesale And Retail Merchant Relationship Specialty Start Date End Date Myah Singh MD [address] [place] [address] PCP - General Family Medicine 11/08/12 [facility] 10/31/25 documented as of this encounter
--- OUTSIDE RECORDS SUMMARY | 2025-11-22 17:53 | XMS_ITS | Continuity of Care Document ---
Author Name [facility], Medical Address [address] [place] [address] Organization Unknown Address [address] [place] [address] Medications No known medications Problems No known problems
--- OUTSIDE RECORDS SUMMARY | 2025-11-22 17:53 | XMS_ITS | Encounter Summary ---
Author Organization [employer] Address [address] [place] [address] Care Team Providers Care Web Worker Name Role Phone Tony Arreola MD Primary Care Provider [phone] Encounter Details Date Type Department Care Team (Late st Contact Info) Description 12/06/2024 Lab Requisition [facility] - Main Lab [address] [place] [address] Tony Arreola MD [address] [facility] [address] [place], [address] Weakness; Unspecified dementia, unspecified severity, without [...] Resul t [facility] [address] [place] [address], [place] [phone] * (ABNORMAL) Complete blood count (12/09/2024 7:13 AM EST) [facility] Signature WBC 6.9 4.8 - 10.8 [...] LAB HEMETOLOGY METHOD 12/09/2024 12:37 PM EST [facility] Blood Venous blood specimen / Unknown Venipuncture / Unknown 12/09/2024 7:13 AM EST 12/09/2024 11:17 AM EST us Tony Arreola MD LAB BLOOD ORDERABLES Final Resul t [facility] [address] [place] [address], documented in this encounter Visit Diagnoses Diagnosis Weakness Other malaise and fatigue Unspecified dementia, unspecified severity, without behavioral disturbance, psychotic disturbance, mood disturbance, and anxiety (CMS/HCC V24, CMS/HCC V28) documented in this encounter Care Teams Web Worker Relationship Specialty Start Date End Date Tony Arreola MD [address] [place] [address], [address] PCP - General Family Medicine 12/14/24 documented as of this encounter
--- OUTSIDE RECORDS SUMMARY | 2025-11-22 17:53 | XMS_ITS | Encounter Summary ---
Author Organization [facility] Address [address] [facility] [address] [place] [address] Phone Care Team Providers Care Central Station Operator Name Role Phone Unavailable Primary Care Provider Unavailabl e Reason for Visit * Reason Comments Med Refill Encounter Details Date Type Department Care Team ([facility] st Contact Info) Description 12/10/2021 Refill [facility] [address] [facility] [address] [place] [address] Chino Martinez MD [address] [facility] [address] [place] [phone] Social History Tobacco Use Types Packs/Day Years [...]
--- OUTSIDE RECORDS SUMMARY | 2025-11-22 17:53 | XMS_ITS | Continuity of Care Document ---
Author Name [facility], Medical Address [address] [place] [address] Organization Unknown Address [address] [place] [address] Medications No known medications Problems No known problems
--- OUTSIDE RECORDS SUMMARY | 2025-11-22 17:53 | XMS_ITS | Data Portability ---
Author Organization [facility], Main Office Address [address] [facility] [place] [address] Care Team Providers Care Starch Crab Name Role Phone [facility] OTHER Assessment No assessment recorded. Plan [...] and Address Organization Details Recorded Time Asthma 306612548 Active 2017 ANGELITA VANG [address] [facility], [address], [place], [address] , [facility] [employer] [facility] 8 15:12:32 Dementia 85583398 Active 2017 ANGELITA VANG [address] [facility], [address], [place], [address] , [facility] [employer] 8 15:12:53 Depressiv e disorder 65436053 Active 2017 ANGELITA VANG [address] [facility], [address], [place], [address] , [facility] 8 15:13:06 Coronary arteriosc lerosis 06261721 Active 2017 history of NSTEMI ANGELITA VANG [address] [facility], [address], [place], [address] , [facility] 8 15:13:24 Hyperlipi demia 14633640 Active 2017 ANGELITA VANG [address] [facility], [address], [place], [address] , [facility] 8 15:14:00 Essential hypertens ion 71581513 Active 2017 ANGELITA VANG [address] [facility], [address], [place], [address] , [facility] 8 15:14:57 History of cerebrova scular accident 051417313 Active 2017 right sided weakness ANGELITA VANG [address] [facility], [address], [place], [address] , [facility] 8 15:15:19 Influenza 5150747 Active 2017 ANGELITA VANG [address] 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, [address], [place], [address] , [facility] 8 16:05:54 Osteoporo sis 39147575 Active 2017 ANGELITA VANG [address] [facility], [address], [place], [address] , [facility] 8 16:06:06 Gastroeso phageal reflux disease 471715627 Active 2017 ISABELLE ALYSSA SEC ACCOUNTANT [address] [place] [address], [address], [place], [address] , [facility] 8 16:08:23 Asthenia 35016679 Active 2017 Thais Rocha MD [address] [place] [address], [facility] [address], [place], [address] , [facility] 8 13:54:57 Acute kidney injury 03992820 Active 2017 Thais Rocha MD [address] [place] [address], [address], [place], [address] , [employer] 8 14:30:45 Type 2 diabetes mellitus 04111525 Active 2023 Not Available [facility] 5 10:33:31 Muscle weakness 19043944 Active 2023 Not Available [facility] 5 10:33:31 Difficult y walking 684307011 Active 2023 Not Available [facility] 5 10:33:32 Dyspnea 514065794 Active 2023 Not Available [facility] 5 10:33:32 Anxiety disorder 864480429 Active 2023 Not Available [facility] 5 10:33:33 Insomnia 156235348 Active 2023 Not Available [facility] 5 10:33:34 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 35057421925 9100 Active 2023 Not Available [facility] 5 10:33:34 Cerebrova scular disease 50420637 Active 2023 Not Available [facility] 5 10:33:35 Fall Active 2023 Not Available [facility] 5 10:33:36 Allergic contact dermatiti s 722703413 Active 2023 Not Available [facility] 5 10:33:37 Diaphragm atic hernia 40278822 Active 2023 Not Available [facility] 5 10:33:38 Constipat ion 10521761 Active 2023 Not Available [facility] 5 10:33:38 Coronavir us infection 711630186 Active 2023 Not Available [facility] 5 10:33:39 Dementia associate d with another disease 690976306 Active 2023 Not Available [facility] 5 10:33:39 Chronic kidney disease stage 3 381817940 Active 2023 Not Available [facility] 5 10:33:39 Chronic kidney disease stage 3A 465575043 Active 2024 Tony Arreola MD [address] [facility], [address], [place], [address] , [email or web address] 5 08:58:43 Cirrhosis of liver 64042808 Active 2024 Tony Arreola MD [address] [facility], [address], [place], [address] , [email or web address] 5 08:58:50 Aortic valve stenosis 93141881 Active 2024 Tony Arreola MD [address] [facility], [address], [place], [address] , [facility] [email or web address] 5 08:59:06 Diabetes mellitus 23288115 Active 2024 Tony Arreola MD [address] [facility], [address], [place], [address] , [facility] [email or web address] 5 08:59:17 Delusiona l disorder 80638963 Active 2024 Not Available [facility] 5 12:34:52 Problem Notes None recorded. Medical Equipment None Reported. Allergies Allergen ID Allergen Name Allergen Category Reaction Reaction Severity Criticality Documentation Date Start Date Code Code System Note Provider Name and Address Organization Details Recorded Time 03741 Reglan medicatio n Not available Not available Not available 12/19/20242023 9230 RxNorm Not Available [facility] 5 10:33:44 9455 tetracain e medicatio n Not available Not available Not available 01/03/20182023 90644 RxNorm Not Available [facility] 5 10:33:44 9456 benzocain e medicatio n Not available Not available Not available 01/03/20182023 1399 RxNorm Not Available [facility] 5 10:33:44 9457 butamben medicatio n Not available Not available Not available 01/03/20182023 57448 RxNorm Not Available [facility] 5 10:33:44 9458 morphine medicatio n Not available Not available Not available 01/03/20182023 7052 RxNorm Not Available [facility] 5 10:33:44 9459 metoclopr amide Not available Not available Not available Not available 01/03/2018 6915 RxNorm ISABELLE SHAH, SEC ACCOUNTANT [address] [facility], [address], [place], [address], [facility] 8 15:01:21 9460 ceftazidi me anhydrous medicatio n Not available Not available Not available 01/03/20182023 28248 84 RxNorm Not Available [facility] [...] Available Not Available Not Avai lable Acid Assistant Media Planner (omeprazole ) 20 mg capsule,del ayed release [...] 12/02/2024 122/57 mm[Hg] Tony Arreola MD [address] [facility], [address], [place], [address], [facility] 12/02/2024 08:50:04 Date Recorded Heart rate Respiratory rate Body temperature Oxygen saturation Systolic And Diastolic Provider Name and Address Organization Details Last Updated DateTime 5 67 /min 14 /min 97.9 [degF] 96 % 102/49 mm[Hg] HAKEEM JOHNSON NP [address] [facility], [address], [place], [address], [facility] 5 14:47:00 Date Recorded Body height Body mass index (BMI) Body weight Heart rate Respiratory rate Body temperature Oxygen saturation Systolic And Diastolic Provider Name and Address Organization Details Last Updated DateTime 5 152.4 cm 32.9 kg/m2 87420.9 6 g 72 /min 20 /min 97.3 [degF] 95 % 114/63 mm[Hg] Thais Rocha MD [address] [facility], [address], [place], [address], [facility] 5 18:57:01 Social History Question Answer Notes LastModified by Organizat ion Details LastModified Time Tobacco Smoking Status Former Smoker Thais Rocha MD [address] [facility], [address], [place], [address], [facility] 01/04/2018 14:12:51 Do You Have An [...] Do You Have A Medical Power Of Device Sales Consultant? Yes Information not available 01/04/2018 What Was [...] ICD10 Code Diagnosis IMO Codes Diagnosis Note 94887 ANGELITA VANG MICHELLE [address] [facility] [place] [address] 01/03/2018 15:00:09 01/12/2018 16:14:28 Influenza 9410648 J10.89 [facility] Essential hypertension 10657410 I10 lisinopril 20 mg qdlasix 20 mg qdnorvasc 5 mg qdmonitor b/p and labs Hyperlipidemia 08083407 E78.2 atorvastat in 20 mg qdmonitor labs Depressive disorder 3548 9007 F32.0 prozac 40 mg qdremeron 15 mg qdtrazodon e 50 mg qdhaldol 1 mg qdneg consult prnmonitor mood Dementia 42936566 F02.80 namenda 10 mg bidaricept 10 mg qdmonitor mood Coronary arteriosclerosis 73095647 I25.10 ASA 81 mg qdmonitor Osteoporosis 45761974 M8 1.0 calcium carbonate/ vit. D3 600/vit d bidmonitor labs Bladder mu scle dysfunction - overactive 339868755 N32.81 myrbetriq 50 mg qdincontin ent of urinemonit or History of cerebrovascular accident 284221698 Z86.73 right sided weaknessmo nitor Asthma 870260627 J45.20 zyrtec 10 mg qdmonitor resp status Gastroesop hageal reflux disease 537956099 K21.9 omeprazole 40 mg qdmonitor Asthenia 76174153 R53.1 PT/OT eval and [facility]ul [facility] [address] Thais Rocha MD [address] [place] [address] 01/04/2018 13:51:14 01/12/2018 16:19:02 Asthenia 59850930 R53.1 Decondrenetta david after acute illness, needs PT/OT for strengthen ing and gait training. At baseline ambulates with walker. Anticipate less than 30 day stay and return home. Influenza 8507570 J10.89 Positive for influenza A in hospital, completed course of Tamiflu.Mo nitor Essential hypertension 04674310 I10 Stable on lisinopril 20 mg qd, lasix 20 mg qd and norvasc 5 mg qd.monitor BP and labs Hyperlipidemia 68998936 E78.2 Continue atorvastat in 20 mg qdmonitor chol with PCP. Depressive disorder 3548 9007 F32.0 Continue prozac 40 mg qd, remeron 15 mg qd, trazodone 50 mg qd and haldol 1 mg qd. Monitor mood and consider NEG consult Dementia 55698752 F02.80 Continue namenda 10 mg bid and aricept 10 mg qd. Expect continued decline. Provide supportive care. Coronary arteriosclerosis 38484733 I25.10 Continue ASA 81 mg qd and statin. F/U with Cardio prn Osteoporosis 58409899 M8 1.0 Continue calcium carbonate/ vit. D3 600/vit d bid Bladder mu scle dysfunction - overactive 406532506 N32.81 Continue myrbetriq 50 mg qdmonitor History of cerebrovascular accident 450022717 Z86.73 Residual right sided weakness. PT/OT as above. Follow for recurrence . Asthma 324592655 J45.20 Continue zyrtec 10 mg qdmonitor resp status Gastroesop hageal reflux disease 789759358 K21.9 No current sxs, continue omeprazole 40 mg qdmonitor Acute kidney injury 1466 9001 N17.8 Improved in hospital, not 100% nl. Will recheck today. May have baseline mild CRF. 45173 ANGELITA VANG [facility] MICHELLE [address] [place] [address] [place] [address] 01/08/2018 13:49:05 01/12/2018 16:24:28 Cough 92291178 R05 bilateral lungs with wheezes and rhonchi throughout cough noted but non productive had flu in hospitalPP D was planted and is 30 mmchest x-ray orderedduo nebs ordered qid x3 days and prnmonitor for worsening symptoms 05512 ANGELITA VANG [facility] MICHELLE [address] [place] [address] 01/10/2018 13:57:28 01/12/2018 16:27:43 Cough 15004209 R05 continues with cough but now has yellow sputumstat es she feels betterbila teral lungs are clear nowcontinu e to monitor [address]30 Tony Arreola MD [address] [address] 01/15/2018 10:39:11 01/15/2018 13:20:57 Acute low back pain 942920244 M54.5 x ray L-S spineproba ble mild left sacroillii tisPT OT eval and treattylen ol for paincontin ue to monitorcon isder SI brace 42131 ANGELITA VANG [facility] [address] [address] 01/24/2018 13:45:00 01/25/2018 11:35:41 Dementia 47060642 F02.80 namenda 10 mg bidaricept 10 mg qdfollow up with PCP Hyperlipidemia 25800785 E78.2 atorvastat in 20 mg qdfollow up with PCP Essential hypertension 77702451 I10 lisinopril 20 mg qdlasix 20 mg qdnorvasc 5 mg qdfollow up with PCP Gastroesop hageal reflux disease 640097156 K21.9 omeprazole 40 mg qdfollow up with PCP Osteoporosis 86802978 M8 1.0 calcium carbonate/ vit. D3 600/vit d bidtylenol prn pain follow up with PCP Depressive disorder 3548 9007 F32.0 prozac 40 mg qdremeron 15 mg qdtrazodon e 50 mg qdhaldol 1 mg qdfollow up with PCP Asthma 220495408 J45.20 zyrtec 10 mg qdfollow up with PCP Coronary arteriosclerosis 04017972 I25.10 ASA 81 mg qdfollow up with PCP Bladder mu scle dysfunction - overactive 697703904 N32.81 myrbetriq 50 mg qdfollow up with PCP History of cerebrovascular accident 065181636 Z86.73 right sided weaknessfo llow up with PCP [id number] Tony Arreola MD [facility] [address] [place] [address] 12/02/2024 08:34:30 12/03/2024 11:00:58 Asthenia 28845634 R53.1 PT OT Eval and treatmonit or fall risk and need for increased support in community Essential hypertension 43953887 I10 lisinopril 20 mg qdnorvasc 5 mg qdmonitor bp and need to titrate Hyperlipidemia 45995770 E78.2 lipitor 20 mg qdcontinue d Depressive disorder 3548 9007 F32.0 prozac 40 mg qdremeron 15 mg qdmonitor moodsee above Dementia 78023197 F02.80 baseline dementiain voke [facility] - granddaugh tercontinu e supportive caremonito r for behaviorsp sych eval prnaricept 10 mg qdnamenda 10 mg bidof note currently on haldol qd - will await psych rec Coronary arteriosclerosis 51584685 I25.10 lipitor 20 mg qdasa 81 mg qdmonitor forupdate cards with concerns Gastroesop hageal reflux disease 311318900 K21.9 omeprazole 40 mg qdmonitor for sx relief COVID-19 603915363 U07.1 limited informatio n will request dc summary appears dx with covid now completed treatment Diabetes mellitus 269460 09 E11.9 carrying dx added to PMHjardian ce 10 mg qdmonitor blood glucose prn Aortic valve stenosis 60 750778 I35.0 limited informatio n availabler equest notes from PCP Cirrhosis of liver 007 K74.69 limited informatio n availabler equest notes from PCP Chronic ki dney disease stage 3A 083555091 N18.31 monitor renal functionav oid nephrotoxi c meds as ablenephro consult prn [id number] HAKEEM JOHNSON, SHAHZAD [facility] [address] [place] [address] 12/09/2024 14:46:28 12/11/2024 08:32:16 Asthenia 94836762 R53.1 PT OT Eval and treatmonit or fall risk and need for increased support in community Dementia 47081380 F02.80 baseline dementiain voke HCP - granddaugh tercontinu e supportive caremonito r for behaviorsp sych eval prnaricept 10 mg qdnamenda 10 mg bidof note currently on haldol qd - will await psych rec COVID-19 266243000 U07.1 limited informatio n appears dx with covid now completed treatmentm onitor for sequelae Essential hypertension 08403992 I10 BP soft the past week or so.CBC today stable, chem pendingMai ntain fluidsCurr ently on:lisinop ril 20 mg qdnorvasc 5 mg qd - reduce to 2.5 mg qdmonitor bp and need to titrate Hyperlipidemia 81094806 E78.2 Continue lipitor 20 mg qdConsider stopping, ? benefit vs, risk in frail elder Depressive disorder 3548 9007 F32.0 prozac 40 mg qdremeron 15 mg qdmonitor moodsee above Coronary arteriosclerosis 97396014 I25.10 Continue:l ipitor 20 mg qdasa 81 mg qdmeds for BP controlmon itor VS, CP statusupda te cards with concerns Gastroesop hageal reflux disease 615085000 K21.9 Continue omeprazole 40 mg qdmonitor for sx relief Diabetes mellitus 286625 09 E11.9 carrying dx added to PMHjardian ce 10 mg qdmonitor blood glucose - bid x 7 days, then re-eval.ch yovany A1C prn Aortic valve stenosis 60 852465 I35.0 limited informatio n availabler equest notes from PCP Cirrhosis of liver 007 K74.69 limited informatio n availabler equest notes from PCP Chronic dney disease stage 3A 370773074 N18.31 monitor renal functionav oid nephrotoxi c meds as ablenephro consult prn [id number] Thais Rocha MD [facility] [address] [place] [address] 12/19/2024 18:31:17 12/20/2024 16:13:52 Diabetes mellitus 96434539 E11.9 With low sugars since here.Will change fingerstic ks to fasting on Mon & thurs and prn (compromis e with granddaugh ter from my preference of M/W/F).Con tinue Jardiance 10 mg qd. [id number] FLO LEE, SHAHZAD-C RICARDA [address] [place] [address] 12/24/2024 09:08:15 12/31/2024 08:39:05 Diabetes mellitus 90143929 E11.9 With low sugars since here.[place] nue Jardiance 10 mg qd.monitor with VNAconside r decrease in jardiance if BS remains < 100 given age of 89 Asthenia 98589032 R53.1 continue PT OTworking on doing stairsfami ly very supportive VNA services in place per Dementia 64991775 F02.80 baseline dementiain voke HCP - granddaugh teraricept 10 mg qdnamenda 10 mg bidhaldol once daily COVID-19 680459314 U07.1 resolved Essential hypertension 47056084 I10 improved with reduced dose of amlodipine lisinopril 20 mg qdnorvasc 2.5 mg qdmonitor bp and consider decrease outptpermi ssive BP goals for frail elderly of < 160/ 90 Hyperlipidemia 56463077 E78.2 Continue lipitor 20 mg qdlipids yearly outpt Depressive disorder 3548 9007 F32.0 prozac 40 mg qdremeron 15 mg qdmonitor mood outpt Coronary arteriosclerosis 53164846 I25.10 Continue:l ipitor 20 mg qdasa 81 mg qdmeds for BP control Gastroesop hageal reflux disease 937324419 K21.9 Continue omeprazole 40 mg qdmonitor for sx relief outpt Aortic valve stenosis 60 374179 I35.0 limited informatio n availablen o CP or sob here Cirrhosis of liver 007 K74.69 limited informatio n available Chronic ki dney disease stage 3A 766129362 N18.31 monitor renal function, stable 12/23 labsavoid nephrotoxi c meds as ablenephro consult prn Conjunctivitis 5387232 H 10.9 erythro ophthalmic qid x 7 daysmonito r for improvemen t [id number] MICHAEL RAMOS [facility] [address] [place] [address] 12/27/2024 09:21:35 12/31/2024 09:41:18 Diabetes mellitus 75435933 E11.9 With low sugars since here.[place] nue Jardiance 10 mg qd.monitor with VNAconside r decrease in jardiance if BS remains < 100 given age of 89f/up with pcp Asthenia 23062050 R53.1 completed STR stayable to do 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 very supportive VNA services in place per SWf/up with pcp Dementia 39718189 F02.80 baseline dementiain [facility] tercontinu e supportive care with SOLUTIONS DEVELOPER 6 hr per day at homearicep t 10 mg qdnamenda 10 mg bidhaldol once dailyf/up with pcp COVID-19 541363427 U07.1 resolvedf/ up with pcp Essential hypertension 52397270 I10 improved with reduced dose of amlodipine lisinopril 20 mg qdnorvasc 2.5 mg qdmonitor bp and consider decrease outptpermi ssive BP goals for frail elderly of < 160/ 89f/up with pcp Hyperlipidemia 88117838 E78.2 Continue lipitor 20 mg qdlipids yearly outptf/up with pcp Depressive disorder 3548 9007 F32.0 prozac 40 mg qdremeron 15 mg qdmonitor mood outptf/up with pcp Coronary arteriosclerosis 00778704 I25.10 Continue:l ipitor 20 mg qdasa 81 mg qdmeds for BP controlf/u p with pcp Gastroesop hageal reflux disease 232341284 K21.9 Continue omeprazole 40 mg qdmonitor for sx relief outptf/up with pcp Aortic valve stenosis 60 737072 I35.0 limited informatio n availablen o CP or sob heref/up with pcp Cirrhosis of liver 28868 007 K74.69 limited informatio n availablef /up with pcp Chronic ki dney disease stage 3A 836201004 N18.31 monitor renal function, stable 12/23 labsavoid nephrotoxi c meds as ablenephro consult prnf/up with pcp Conjunctivitis 8211196 H 10.9 erythro ophthalmic qid x 7 [...] Gonzalez Member ID Guarantor Name 12/31/2024 1 [facility] - DOS ON OR AFTER 2023 - MEDICARE ADVANTAGE [place] (MEDICARE REPLACEMENT/ADV ANTAGE - PPO) Sienna Andrea [id number] Elena Hurtado 12/02/2024 1 [facility] - DOS PRIOR TO 2023 - DUAL ELIGIBLE (MEDICARE REPLACEMENT/ADV ANTAGE - HMO) Sienna Mendez [id number] Elena Hurtado 12/31/2024 2 [place] [facility] Sienna Andrea [id number] Elena Hurtado Notes Date Note Type Note [...] therapy eval and treat Tony Arreola MD [address] [place] [address], [address], [place], [address], [facility] 12/02/2024 09:20:00 12/09/2024 text/html Sienna is seen [...] issues reported by nsg. Case discussed with TYPE CASTING MACHINE OPERATOR, who reports she did not eat as well today compared to other days. No other concerns. VSS, BP on the soft side the past week.Labs stable, chem pending today.No BS documented PMH: dementia , crf stage 3, cirrhosis, , dm, htn, cad, gerd, hld, depression, hx CVA HAKEEM JOHNSON NP [address] [facility], [address], [place], [address], [facility] 12/09/2024 15:01:58 12/19/2024 text/html I am asked to see this 89 yo slovenian speaking woman rayshawn because her granddaughter is [...] depression, and dementia. Thais Rocha MD [address] [facility], [address], [place], [address], [facility] 12/19/2024 19:10:59 12/24/2024 text/html Patient is an [...] GERD, depression, and dementia. MICHAEL RAMOS [address] [facility], [address], [place], [address], [employer] 12/29/2024 16:21:25 12/27/2024 text/html Patient is an [...] and received 6 hrs per day of TYPE CASTING MACHINE OPERATOR care. Seen today and she is medically clear for dc home with meds and services. Her PMH includes HTN, depression, hx of CVA, CAD s/p NSTEMI, cirrhosis, asthma, HLD, CKD stage 3B, GERD, depression, and dementia. MICHAEL RAMOS [address] [facility], [address], [place], [address], [facility] 12/27/2024 09:38:55 OBGyn Episode No OBEpisode recorded.
--- OUTSIDE RECORDS SUMMARY | 2025-11-22 17:53 | XMS_ITS | Encounter Summary ---
Author Organization [facility] Address [address] [place] [address] Encounters * CPT with Medical [facility] at [facility] [employer] on 2025-11-12 { reasonForRequest : lower back pain, lethargic,. , patientReports :&q uot; , denies :[ Chavez Flash, circumferential chavez , Chavez reported with black tissue to the area , Open skin area after a fall with uncontrolled bleeding& quot;, Abscess/infection with streaking noted, presence of fever or without ], chiefComplaints : Confusion, Weakness , pmh : Congestive Heart Failure, Coronary Artery Disease , allergies : No Known Drug Allergies , otherAllergies : , painAssessment : , visitOutcome : &quot ;, additionalComments : 89 y.o female complains of Confusion, Weakness\n\n[facility]NA calling in to place a referral on patients behalf per nieces request\nPatient with increased weakness, lethargy and increased back/body pain\nPatient not transfering or walking as usual, using her wheelchair more\nDuring [facility]NA visit patient was still in bed\nHer lung sounds were clear, no edema, unknown diuretic use\nNo concern for neuro deficits per VNA\nPer niece she is prone to UTI, VNA unsure of thereare any symptoms\nBP 117/52, HR 68, o2 RA 94-95\nFamily would like her evaluated\n\n\nI provided information on the mobile health provider response time and advised the patient and/or caregiver to monitor reported signs and symptoms. I discussed the warning signs of when to seek emergency care.&quot ;} [facility] responds to the listed address for an 89 yof w/ confusion and weakness. Upon arrival on scene, pt is found laying reclined supine in a recliner in the small apartment where she lives alone. She is conscious and alert and watches [facility] enter her home. She stares intently atMIH and is not in acute distress. Pt is Polish speaking only and family is on scene to provide hx and translation. Pt tells [facility] she feels bad, but she is unable to verbalize what she means other than she has pain in her body and she is cold. She denies dizziness/light headedness, cp, sob, nausea, abd pain, or coughs, but has some back pain and shoulder pain. Family reports pt has two sales store checker that are w/ her as well as a son and granddaughter (present on scene), but pt primarily lives alone. According to granddaughter, pt has been c/o a lot of back pain to the point she moans all night long and they ordered a new mattress for her, that has not arrived yet. Family says she is currently at her baseline of mentation and no confusion is endorsed at this time. Also, no signs of stroke have been noted including facial droop, loss of coordination, and slurred speech. Family says pt had a UTI a cou ple of months ago and she presented similarly at that time and they want to rule it out today. Pt wears briefs and when changed, the odor has been very strong. No dark color or red/jackson/pink color are noted in the urine. Family says it is difficult to get pt to drink fluids. Ddx: UTI, dehydration, URI [facility] obtains vital signs and pt is assessed. She is afebrile, normotensive, and not hypoxic. Head isatraumatic and normocephalic. Sclera are clear and extraocular movements are intact. Pt has a sty on the lower lid of the R eye that is currently being treated. Conjunctiva in the L eye is pale and flat and oral mucosa appears somewhat pale and the tongue is coated white and has a furrow down the center. No swollen glands are noted. Lung sounds are clear to auscultation and abdomen is soft and nontender. No calf tenderness is present, pedal pulses are strong and regular, and CMS is intact. No peripheral edema is noted. Pt is swabbed for COVID/flu and results show negative. Pt is provided a hat and castile soap for clean catch of urine. She is able to stand under her own power and walks w/ her walker to the bathroom. Granddaughter assists her to clean to catch urine, but catch is not successful. Pt tells granddaughter her tailbone is hurting. Visual inspection of the sacrococcygeal area reveals pink and healthy skin w/ good capillary return. [facility] contacts [facility] and discusses the above. Granddaughter is sure she can collect urine before pt goes to bed tonight, so [facility] discusses leaving soap and urine cup and a revisit tomorrow. [facility] authorizes [facility] to leave the necessary supplies and willleave a note for a revisit tomorrow. Pt is left in stable condition in the presence of family. [facility] is clear. Report completed by Jose A De Dios [id number]. ORAL_MEDICATION, POC_BLOODWORK, URINE_DIPSTICK, WOUND_CARE, CULTURE_URINE Written by Medical [facility] on 2025-11-12
--- OUTSIDE RECORDS SUMMARY | 2025-11-22 17:53 | XMS_ITS | Encounter Summary ---
Author Organization [email or web address] Address [address] [place] [address] Care Team Providers Care Test Data Developer Name Role Phone Tony Arreola MD Primary Care Provider [phone] Encounter Details Date Type Department Care Team (Late st Contact Info) Description 12/28/[address] [facility] - Main Lab [address] [facility] [place] [address] Tony Arreola MD [address] [facility] [address] [place], [phone] Weakness; Unspecified dementia, unspecified severity, without [...] V28) documented in this encounter Care Teams Test Data Developer Relationship Specialty Start Date End Date Tony Arreola MD [address] [facility] [address] [place], [phone] PCP - General Family Medicine 12/14/24 documented as of this encounter
--- OUTSIDE RECORDS SUMMARY | 2025-11-22 17:53 | XMS_ITS | Encounter Summary ---
Author Organization [employer] Address [address] [place] [address] [address] [place] [address] Care Team Providers Care Gravity Prospecting Observer Name Role Phone Myah Singh MD Primary Care Provider [phone] Reason for Visit * Reason Onset Date Comments Durable Medical Equipment 01/30/2023 Encounter Details Date Type Department Care Team ([facility] st Contact Info) Description 01/30/2023 Telephone [facility] [address] [place], [place] [phone] Myah Singh MD [address] [place], [place] [phone] Durable Medical Equipment Social History Tobacco Use [...] call me or CHACE Beltran also patient FINANCIAL SERVICE REPRESENTATIVE can call them as they are the vendor for more information [phone] * Telephone Encounter - Uriahchadshy Rodriguezmahad Marion - 01/30/2023 10:00 AM EST Tc from pt FINANCIAL SERVICE REPRESENTATIVE Jonathan stating that for the last two months pt Large Pull ups and Wipes have not been deliver Please contact jonathan at [phone] documented in this encounter Plan of Treatment Not on file documented as of this encounter Visit Diagnoses Not on filedocumented in this encounter Care Teams Gravity Prospecting Observer Relationship Specialty Start Date End Date Myah Singh MD [address] [place] [id number] PCP - General Family Medicine 11/08/12 [facility] 12/31/24 07/29/25 [facility] 10/31/25 documented as of this encounter
--- OUTSIDE RECORDS SUMMARY | 2025-11-22 17:53 | XMS_ITS | Encounter Summary ---
Author Organization [employer] Address [address] [place] [address] Care Team Providers Care Flower Picker Name Role Phone Tony Arreola MD Primary Care Provider [phone] Encounter Details Date Type Department Care Team (Late st Contact Info) Description 11/29/2024 Lab Requisition [facility] - Main Lab [address] [place] [address] Tony Arreola MD [address] [facility] [address] [place], [phone] Weakness; Unspecified dementia, unspecified severity, without [...] mmol/L LAB CHEMISTRY METHOD 12/02/2024 11:14 AM [facility] Potassium 4.0 3.5 - 5.5 mmol/L LAB CHEMISTRY METHOD 12/02/2024 11:14 AM [facility] Chloride 112(H) 96 - 110 mmol/L LAB CHEMISTRY METHOD 12/02/2024 11:14 AM [facility] CO2 27 21 - 32 mmol/L LAB CHEMISTRY METHOD 12/02/2024 11:14 AM [facility] Anion Gap 5 3 - 11 LAB CHEMISTRY METHOD 12/02/2024 11:14 AM [facility] Glucose 80 70 - 100 mg/dL LAB CHEMISTRY METHOD 12/02/2024 11:14 AM [facility] BUN 28(H) 5 - 25 mg/dL LAB CHEMISTRY METHOD 12/02/2024 11:14 AM [facility] Creatinine 1.19(H) 0.50 - 1.10 mg/dL LAB CHEMISTRY METHOD 12/02/2024 11:14 AM [facility] eGFR 44(L) >=60 mL/min/1. 73m2 LAB CHEMISTRY METHOD 12/02/2024 11:14 AM [facility] Comment:Calculation based on the Chronic Kidney Disease Epidemiology Collaboration (CKD-EPI) equation refit without adjustment for race. BUN/Creatinine Ratio 23.5 LAB CHEMISTRY METHOD 12/02/2024 11:14 AM [facility] Calcium 9.3 8.5 - 10.5 mg/dL LAB CHEMISTRY METHOD 12/02/2024 11:14 AM [facility] Blood Venous blood specimen / Unknown Venipuncture / Unknown 12/02/2024 7:21 AM EST 12/02/2024 10:33 AM EST us Tony Arreola MD LAB BLOOD ORDERABLES Final Resul t [facility] [address] [place] [address], * (ABNORMAL) Complete blood count (12/02/2024 7:21 AM EST) [facility] WBC 6.8 4.8 - 10.8 K/mcL LAB HEMETOLOGY METHOD 12/02/2024 10:57 AM [facility] RBC 4.40 3.80 - 4.80 M/mcL LAB HEMETOLOGY METHOD 12/02/2024 10:57 AM [facility] Hemoglobin 12.9 11.5 - 16.0 g/dL LAB HEMETOLOGY METHOD 12/02/2024 10:57 AM [facility] Hematocrit 41.3 35.0 - 47.0 % LAB HEMETOLOGY METHOD 12/02/2024 10:57 AM [facility] MCV 93.9 79.0 - 98.0 FL LAB HEMETOLOGY METHOD 12/02/2024 10:57 AM [facility] MCH 29.3 27.0 - 32.0 pcg LAB HEMETOLOGY METHOD 12/02/2024 10:57 AM [facility] MCHC 31.2(L) 32.0 - 37.0 g/dL LAB HEMETOLOGY METHOD 12/02/2024 10:57 AM [facility] RDW 14.5 11.0 - 15.0 % LAB HEMETOLOGY METHOD 12/02/2024 10:57 AM [facility] Platelets 155 130 - 400 K/mcL LAB HEMETOLOGY METHOD 12/02/2024 10:57 AM [facility] MPV 11.6(H) 7.0 - 11.0 FL LAB HEMETOLOGY METHOD 12/02/2024 10:57 AM [facility] NRBC 0.0 <1.0 % LAB HEMETOLOGY METHOD 12/02/2024 10:57 AM [facility] NRBC Absolute 0.00 <0.10 K/mcL LAB HEMETOLOGY METHOD 12/02/2024 10:[address] [facility] Blood Venous blood specimen / Unknown Venipuncture / Unknown 12/02/2024 7:21 AM EST 12/02/2024 10:33 AM EST us Tony Arreola MD LAB BLOOD ORDERABLES Final Resul t [facility] [address] [place] [address], documented in this encounter Visit Diagnoses Diagnosis Weakness Other malaise and fatigue Unspecified dementia, unspecified severity, without behavioral disturbance, psychotic disturbance, mood disturbance, and anxiety (CMS/HCC V24, CMS/HCC V28) documented in this encounter Care Teams Flower Picker Relationship Specialty Start Date End Date Tony Arreola MD [address] [place] [address] [address] [place], [phone] PCP - General Family Medicine 12/14/24 documented as of this encounter
--- OUTSIDE RECORDS SUMMARY | 2025-11-22 17:53 | XMS_ITS | Encounter Summary ---
Author Organization [facility] Address [address] [facility] [address] [place] [address] Encounters * CPT with Medical instED at [place] on 2025-11-12 { reasonForRequest : collected urine sample , patientReports : Frequent and increased urination with flank pain; Painful urination with or without fever , denies :[ Unable to void greater than 5 hours , Erection that will not go away a fter 2 hours , Fall or trauma that results in urinary incontinence in the setting of pain", Fall or injury that results in incontinence in the absence of pain , Lower back pain either unilateral or bilateral, unable to void, painful urination -hematuria , Painful urination , Inability to fully empty bladder ], chiefComplaints : Urinary Symptoms , pmh : Congestive Heart Failure, Coronary Artery Disease, Hypertension, Hyperlipidemia, Chronic Kidney Disease, Diabetes Mellitus Type 2, Asthma , allergies : Reglan, Tetracycline, Morphine, Ceftazidime, Dobutamine, Benzocaine , oth erAllergies : , painAssessment : , visitOutcome :&quo t; , additionalComments : 89 y.o female complains of Urinary Symptoms\nSeen by I nsted on 11/11/25 unable to collect a urine sample atthat time. \n101/13/25 1153 visit processed forurine collection. Granddaughter was able to obtain /a urine sample. no changes from yesterday. \n\nI provided information on the mobile health provider response time and advised the patient and/or caregiver to monitor reported signs and symptoms. I discussed the warning signs of when to seek emergency care. } Encountered patient supine and conscious with family [...] today, urinalysis dip performed; values uploaded via [employer]. Culture retrieved for [facility] delivery. Skin warm, dry and of appropriate color for ethnicity. Head and neck, free of trauma and edema. -JVD. Breath sounds present, clear and equal bilaterally in the apexes but exhibits rales in the bases bilaterally; [facility] notified. Abdomen is soft, non-tender and non-distended. Extremities free of traumaand edema. [facility] Contacted: states they will treat patient for suspected UTI based on presentation and urinalysis results. 100mg PO Macrobid administered after medication rights were reconciled with family. [facility] states they will send a prescription for [...] are comfortable with patient remaining home today. ORAL_MEDICATION, EKG, POC_BLOODWORK, GLUCOSE Written by Medical instED on 2025-11-12
--- OUTSIDE RECORDS SUMMARY | 2025-11-22 17:53 | XMS_ITS | Encounter Summary ---
Author Organization [employer] Address [address] [facility] 7[address] [place] [address] Care Team Providers Care Crystal Gazer Name Role Phone Myah Singh MD Primary Care Provider [phone] Reason for Visit * Reason Comments Med Refill Encounter Details Date Type Department Care Team (Late st Contact Info) Description 05/22/2024 Refill [facility] [address] [place], [place] [phone] Myah Singh MD [address] [place], [place] [phone] Social History Tobacco Use Types Packs/Day Years [...] documented as of this encounter Care Teams Crystal Gazer Relationship Specialty Start Date End Date Myah Singh MD [address] [place] [address] PCP - General Family Medicine 11/08/12 [facility] 12/31/24 07/29/25 [facility] 10/31/25 documented as of this encounter
--- OUTSIDE RECORDS SUMMARY | 2025-11-22 17:53 | XMS_ITS | Clinical Summary ---
Author Organization [employer] Address [address] [place] [address] [address] [place] [address] Care Team Providers Care Vinegar Maker Name Role Phone Myah Singh MD Primary Care Provider [phone] Allergies Active Allergy Reactions Criticality Noted Date Comments Benzocaine 06/25/2014 Butamben 06/25/2014 Ceftazidime 01/03/2018 Metoclopramide 01/03/2018 Morphine Other reaction(s): unspecified Tetracaine 06/25/2014 Medications Blood Glucose Monitoring Suppl (FreeStyle Lite) w/Device kit TEST 1 TIMES BY INTRADERMAL ROUTE EVERY MORNING AND NEEDED 09/21/20 22 Active donepezil (Aricept) 10 MG tablet TAKE 1 TABLET BY MOUTH EVERY DAY AFTER MEALS 11/08/20 22 Active FLUoxetine (PROzac) 40 MG capsule Take 40 mg by mouth in the morning. 09/12/20 22 Active hydrocortisone 1 % lotion 09/06/20 22 Active memantine (Namenda) 10 MG tablet Take 10 mg by mouth 2 times daily. 11/07/20 22 Active Myrbetriq 50 MG 24 hr tablet 10/21/20 22 Active mirtazapine (Remeron) 15 MG tablet Take 15 mg by mouth at bedtime. 06/23/20 22 Active traZODone (Desyrel) 50 MG tablet 11/14/20 22 Active fluticasone (Flonase) 50 MCG/ACT nasal spray INSTILL 1 SPRAY INTO EACH NOSTRIL EVERY MORNING 16 g 1 12/18/19 24 Active erythromycin (Romycin) 5 MG/GM ophthalmic ointment Apply to both eyes at bedtime. Apply Amount per Dose: 0.5 inch (~1 cm) per dose. 3.5 g 01/17/20 25 Active Ketotifen Fumarate 0.035 % solution Administer 1 drop into affected eye(s) 2 times daily. 10 mL 1 01/17/20 25 Active haloperidol (Haldol) 2 MG/ML solution Take 1 mg by mouth Once per day. 12/10/19 22 Active Calcium + Vitamin D3 600-5 MG-MCG tablet TAKE 1 TABLET BY MOUTH 2 TIMES DAILY. 60 tablet 11 04/08/20 25 Active Lancets (Safety Lancet 30G/Pressure Act) miscIndications :Type 2 diabetes mellitus with other specified complication, without long-term current use of insulin ([facility]) INJECT 1 BY INTO MACHINE ROUTE EVERY DAY 100 each 10 04/29/20 25 Active aspirin (Aspirin Low Dose) 81 MG EC tablet TAKE 1 TABLET BY MOUTH IN THE MORNING. 30 tablet 3 5 10:53 AM EST 07/22/20 25 Active FREESTYLE LITE test stripIndication s:Type 2 diabetes mellitus with stage 3 chronic kidney disease, without long-term current use of insulin, unspecified whether stage 3a or 3b CKD ([facility]) TEST BLOOD SUGAR DAILY AND NEEDED 100 each 10 5 11:03 AM EST 08/05/20 25 Active Alcohol Swabs (Ultra-Care Alcohol Prep Pads) 70 % pads USE DIRECTED TO CLEAN ARE PRIOR TO FINGER STICK 100 each 5 12:47 PM EST 10/14/20 25 Active montelukast (Singulair) 10 MG tabletIndicatio ns:Allergic rhinitis, unspecified seasonality, unspecified trigger TAKE 1 TABLET BY ORAL ROUTE EVERY DAY IN THE EVENING 90 tablet 3 11/18/20 25 Active cetirizine (ZyrTEC) 5 MG tablet Take 1 tablet (5 mg) by mouth Once per day. 90 tablet 3 11/18/20 25 Active atorvastatin (Lipitor) 20 MG tabletIndicatio ns:Dyslipidemia TAKE 1 TABLET BY MOUTH AT BEDTIME 90 tablet 3 11/18/20 25 Active lisinopril 20 MG tabletIndicatio ns:Primary hypertension Take 1 tablet (20 mg) by mouth Once per day. 90 tablet 3 11/18/20 25 Active amLODIPine (Norvasc) 5 MG tablet Take 1 tablet (5 mg) by mouth Once per day. 90 tablet 3 11/18/20 Active omeprazole (PriLOSEC) [address] capsuleIndicati ons:Gastroesoph ageal reflux disease, unspecified whether esophagitis present take 1 capsule (40MG) by oral route every day before a meal 90 capsule 3 11/18/20 Active empagliflozin (Jardiance) 10 MG Take 1 tablet (10 mg) by mouth Once per day. 90 tablet 3 11/18/20 25 2025 Active Ascorbic Acid (vitamin C) 500 MG tablet TAKE 1 BY ORAL ROUTE ONCE A DAY 90 tablet 3 11/18/20 Active ferrous sulfate 325 (65 Fe) MG EC tablet TAKE 1 TABLET BY ORAL ROUTE EVERY OTHER DAY 90 tablet 3 11/18/20 Active docusate sodium (Colace) 100 MG capsule Take 1 capsule (100 mg) by mouth if needed in the morning and at bedtime for constipation. 180 capsule 3 11/18/20 Active Ventolin HFA 108 (90 Base) MCG/ACT inhaler Inhale 2 puffs every 4 (four) hours if needed for wheezing. 18 g 11/18/20 25 Active Ventolin HFA 108 (90 Base) MCG/ACT inhaler INHALE 2 PUFFS EVERY 6 HOURS NEEDED FOR SHORTNESS OF BREATH OR WHEEZING 09/16/20 22 2024 Discontinued(R eorder (will not trigger notification to Pharmacy)) famotidine (Pepcid) 40 MG tablet Take 40 mg by mouth in the morning. 09/15/20 22 2024 Discontinued(M ed list cleanup (will not trigger notification to Pharmacy)) furosemide (Lasix) 20 MG tablet 11/07/20 22 2024 Discontinued(M ed list cleanup (will not trigger notification to Pharmacy)) omeprazole (PriLOSEC) [address] capsuleIndicati ons:Gastroesoph ageal reflux disease, unspecified whether esophagitis present TAKE 1 CAPSULE (40MG) BY ORAL ROUTE EVERY DAY BEFORE A MEAL 30 capsule 01/06/20 25 2024 Discontinued(R eorder (will not trigger notification to Pharmacy)) atorvastatin (Lipitor) 20 MG tabletIndicatio ns:Dyslipidemia TAKE 1 TABLET BY MOUTH AT BEDTIME 30 tablet 10 01/07/20 25 2024 Discontinued(R eorder (will not trigger notification to Pharmacy)) ferrous sulfate 325 (65 Fe) MG EC tablet TAKE 1 TABLET BY ORAL ROUTE EVERY OTHER DAY 90 tablet 3 5 10:53 AM EST 01/14/20 25 2024 Discontinued(R eorder (will not trigger notification to Pharmacy)) docusate sodium (Colace) 100 MG capsule TAKE 1 TABLET BY ORAL ROUTE 2 TIMES EVERY DAY 60 capsule 9 03/11/20 25 2024 Discontinued(R eorder (will not trigger notification to Pharmacy)) Ascorbic Acid (vitamin C) 500 MG tablet TAKE 1 BY ORAL ROUTE 2 TIMES EVERY DAY 60 tablet 11 04/08/20 25 2024 Discontinued(R eorder (will not trigger notification to Pharmacy)) lisinopril 20 MG tabletIndicatio ns:Primary hypertension TAKE 1 TABLET (20 MG) BY MOUTH ONCE PER DAY. 90 tablet 1 5 4:32 PM EST 05/29/202024 Discontinued(R eorder (will not trigger notification to Pharmacy)) amLODIPine (Norvasc) 5 MG tablet TAKE 1 TABLET BY MOUTH EVERY DAY 30 tablet 3 07/22/20 25 2024 Discontinued(R eorder (will not trigger notification to Pharmacy)) montelukast (Singulair) 10 MG tabletIndicatio ns:Allergic rhinitis, unspecified seasonality, unspecified trigger TAKE 1 TABLET BY ORAL ROUTE EVERY DAY IN THE EVENING 30 tablet 3 5 12:47 PM EST 07/22/20 25 2024 Discontinued(R eorder (will not trigger notification to Pharmacy)) cetirizine (ZyrTEC) 5 MG tablet TAKE 1 TABLET (5 MG) BY MOUTH IN THE MORNING. 30 tablet 1 5 2:55 PM EST 10/15/20 25 2024 Discontinued(R eorder (will not trigger notification [...] CVA (cerebrovascular accident) 2022 Assessment & Plan (11/18/2025 10:33 PM EST): -around 2009 previous medical record -TIA in 2014 -Continue working on secondary prevention / risk factor management Assessment & Plan (01/17/2025 6:10 AM EST): [...] modifications Alzheimer disease 01/07/2023 Assessment & Plan (11/18/2025 10:32 PM EST): -Neurologist: Dr. Estevez, last seen in Jul 2025 -Evaluated with EEG slow wave in 2014 and normal in 2015 -Head CT showed atrophy of brain and microvascular disease -Continue donepezil -Continue memantine Assessment & Plan (01/14/2025 10:01 AM EST): [...] urge urinary incontinence 01/07 Assessment & Plan (11/18/2025 10:27 PM EST): - Pt has OAB, DM2, and dementia - She is on diuretics and SGLT-2 inhibitor. - Followed by urologist, last seen in Jun 2024 - Continue mirabegron - Continue using briefs. Assessment & Plan (01/14/2025 10:03 AM EST): [...] cm2. Mild aortic valve regurgitation. -[facility] guard [facility] cm2. Mild aortic valve regurgitation. -Se[facility] by guard captain, [facility] [...] cm2. Mild aortic valve regurgitation. -Seen by guard captain, [facility] in [facility] [...] -Pt has an upcoming appt with her guard captain Assessment & Plan (01/07/2023 5:17 PM EST): - Most recent TTE 10/14/22: There is mild calcification of the aortic valve. There is moderate aortic valve stenosis. The peak aortic gradient is 33 mmHg.The mean gradient is 16 mmHg. There is mild aortic valve regurgitation. -Pt has loud murmur consistent with aortic stenosis -NSTEMI in 2015 -Pt has an upcoming appt with her guard captain Anemia 01/07/2023 Assessment & Plan (11/18/2025 10:32 PM EST): - anemia of chronic disease (CKD, cirrhosis) - continue ferrous sulfate - check lab Assessment & Plan (01/07/2023 5:24 PM EST): - anemia of chronic disease (CKD, cirrhosis) - continue ferrous sulfate - check lab Diabetes mellitus, type 2 12/28/2022 Overview (04/07/2025): Frequent utis from jardiance Assessment & Plan (11/18/2025 10:47 PM EST): - Dx 2021 - Hgb [...] - Foot exam: 05/08/23 Assessment & Plan (05/06/2025 11:29 AM EDT): Blood sugars are in range (90-110)without jardance, pt grandaughter and STAFF DEVELOPMENT NURSE deny any swelling, sob, orthopnea edema or [...] Foot exam: Asthma 09/27/2017 Assessment & Plan (11/18/2025 10:33 PM EST): -Continue montelukast -Continue albuterol HFA prn Assessment & Plan (01/07/2023 5:24 PM EST): -Continue montelukast -Continue albuterol HFA prn Dyslipidemia 09/27/2017 Assessment & Plan (11/18/2025 10:25 PM EST): -Last Lipid Profile: Dec 2023 -Continue atorvastatin 20 mg at bedtime -Continue working on lifestyle modifications -Update lab Assessment & Plan (01/17/2025 6:10 AM EST): [...] of liver (CMS/HCC) 08/08/2016 Assessment & Plan (11/18/2025 10:27 PM EST): -previously eavluated by Dr. Ld [...] -Work on weight management Assessment & Plan (01/17/2025 6:07 AM EST): [...] sleep apnea syndrome 08/08/2016 Assessment & Plan (11/18/2025 10:33 PM EST): -Following with [facility], last seen in January 2024. -05/19/16 Sleep study; Nasal mask of medium size with pressure 7 cm H2O was recommended. -07/03/23 Sleep study showed severe DONAVAN. Recommended CPAP with pressure 10 cm H2O -Recommended to improve adherence and follow up with sleep medicine clinic Assessment & Plan (01/17/2025 5:56 AM EST): [...] by psychiatrist. Thrombocytopenia 03/27/2013 Assessment & Plan (11/18/2025 10:26 PM EST): - in a setting of cirrhosis, compensated - monitor periodically Assessment & Plan (01/17/2025 6:10 AM EST): - in a setting of cirrhosis, compensated - monitor periodically Osteopenia 01/07/2013 Anxiety 12/10/2012 Dementia ([facility]/HCC) 12/10/2012 Assessment & Plan (11/18/2025 10:33 PM EST): -multifactorial: Alzeheimer's; Hx CVA and [...] adequate home care support Assessment & Plan (01/17/2025 5:58 AM EST): [...] Gastroesophageal reflux disease 12/10/2012 Assessment & Plan (11/18/2025 10:27 PM EST): - continue famotidine and omeprazole Assessment & Plan (01/07/2023 5:06 PM EST): - continue famotidine and omeprazole Hypertension 12/10/2012 Assessment & Plan (11/18/2025 10:25 PM EST): -Goal BP < 130/80 per ACC/AHA guideline (Treatment threshold >= 130/80 ) -BP at goal -ASCVD Risk: CKD, age, NSTEMI, Hx CVA/TIA, DM2 -Coper Hand: Previously [facility] if any problem arises Assessment & Plan (01/17/2025 6:02 AM EST): -Goal BP < 140/90 per JNC-8 and < 130/80 per ACC/AHA guideline (Treatment threshold >= 130/80 ) -BP at goal -ASCVD Risk: CKD, age, NSTEMI, Hx CVA/TIA, DM2 -Coper Hand: Previously [facility] [...] Risk: CKD, age, NSTEMI, Hx CVA/TIA, DM2 -Coper Hand: Previously [facility] [...] Risk: CKD, age, NSTEMI, Hx CVA/TIA, DM2 -Coper Hand: Previously [facility] [...] Risk: CKD, age, NSTEMI, Hx CVA/TIA, DM2 -Coper Hand: Previously [facility] [...] Risk: CKD, age, NSTEMI, Hx CVA/TIA, DM2 -Coper Hand: Previously [facility] [...] 12/10/2012 Overactive bladder 12/10/2012 Assessment & Plan (11/18/2025 10:27 PM EST): - in a setting of dementia, DM2, and SGLT-2 inhibitor use - Followed by [facility], last seen in Jun 2024 - Treatment Hx: Tried oxybutynin, which was discontinued due to anticholinergic effect. Gemtesa was prohibitory expensive - Continue mirabegron as prescribed, advised to have drug holiday from mirabegron, resume when pt's symptoms worsen Assessment & Plan (01/14/2025 9:55 AM EST): - in a setting of dementia, DM2, and SGLT-2 inhibitor use - Followed by [facility], last seen in Jun 2024 - Treatment Hx: Tried oxybutynin, which was discontinued due to anticholinergic effect. Gemtesa was prohibitory expensive - Continue mirabegron as prescribed, advised to have drug holiday from mirabegron, resume when pt's symptoms worsen Assessment & Plan (02/04/2024 1:12 PM EDT): - in a setting of dementia, DM2, and SGLT-2 inhibitor use - Followed by [facility], last seen in November 2023 - Treatment Hx: Tried oxybutynin, which was discontinued due to anticholinergic effect. Gemtesa was not approved - Continue mirabegron as prescribed, advised to have drug holiday from mirabegron, resume when pt's symptoms worsen Assessment & Plan (09/10/2023 4:55 PM EDT): - in a setting of dementia, DM2, and SGLT-2 inhibitor use - Followed by [facility], last seen on 05/31/23. - Continue mirabegron as prescribed, advised to have drug holiday from mirabegron, resume when pt's symptoms worsen Assessment & Plan (05/08/2023 11:04 AM EDT): - in a setting of dementia, DM2, and SGLT-2 inhibitor use - Followed by Dr. Vallecillo, [facility] - Continue mirabegron as prescribed Assessment & Plan (01/07/2023 4:51 PM EST): - in a setting of dementia, DM2, and SGLT-2 inhibitor use - Followed by Dr. Vallecillo, [facility] - Continue mirabegron as prescribed Recurrent urinary tract infection 12/10/2012 Assessment & Plan (11/18/2025 10:36 PM EST): - Followed by Dr. Vallecillo, last seen in Jun 2024 - most recent documented UTI in Jul 2025. Urine culture grew E. Coli resistant to cipro. Prescribed TMP/SMX in ED. - caregiver states patient was diagnosed and treated for UTI in this month, Oct 2025 (urine culture is not available) - Continue adequate hydration - On SGLT-2 inhibitor, empagliflozin, continue with caution - She had Diagnosis of recurrent UTI prior to starting SGLT2i. No increased UTI frequency since initiation of SGLT2i. Assessment & Plan (01/14/2025 9:55 AM EST): [...] SGLT-2 inhibitor Stage 3 chronic kidney disease (CMS/[facility]) 013 Assessment & Plan (11/18/2025 10:35 PM EST): -Toll Ticket Clerk: Dr. Martinez -Avoid nephrotoxic drugs and use renal dosing. -Recheck renal function today -Held empagliflozin briefly when she had UTI in January 2025, but resumed, currently taking at low-dose, 10mg daily. Assessment & Plan (05/06/2025 11:30 AM EDT): Monitor as jardiance was discontinued to due frequent complicated utis requiring rehab stays which contribute to deconditioning, Assessment & Plan (01/17/2025 6:08 AM EST): -Toll Ticket Clerk: Dr. Martinez -Avoid nephrotoxic drugs and use renal dosing. -Recheck renal function today -On Jardiance, at low-dose, 10mg daily. Caution with UTI Assessment & Plan (02/04/2024 1:13 PM EDT): -Toll Ticket Clerk: Dr. Martinez -Baseline: 09/26/22 BUN 29; SCr 1.2, eGFR 43, AST 12, ALT 19, AP 91 -Avoid nephrotoxic drugs and use renal dosing. -Recheck renal function today -On Jardiance, at low-dose, 10mg daily. Assessment & Plan (09/10/2023 4:32 PM EDT): -Toll Ticket Clerk: Dr. Martinez, last seen in 2017 or 2018. Per caregiver, pt was discharged due to stability -Baseline: 09/26/22 BUN 29; SCr 1.2, eGFR 43, AST 12, ALT 19, AP 91 -Avoid nephrotoxic drugs and use renal dosing. -Recheck renal function today -On Jardiance, at low-dose, 10mg daily. Assessment & Plan (05/08/2023 11:04 AM EDT): -Toll Ticket Clerk: Dr. Martinez, last seen in 2016 or 2017. Per caregiver, pt was discharged due to stability -Baseline: 09/26/22 BUN 29; SCr 1.2, eGFR 43, AST 12, ALT 19, AP 91 -Avoid nephrotoxic drugs and use renal dosing. -Recheck renal function today -On Jardiance, at low-dose, 10mg daily. Assessment & Plan (01/07/2023 4:54 PM EST): -Toll Ticket Clerk: Dr. Martinez, last seen in 2017 or 2017. Per caregiver, pt was discharged [...] Encounters Date Type Department Care Team Description 11/18/2025 9:30 AM EST Telemedicine [address] [address] Myah Singh MD Dyslipidemia (Primary Dx); Type 2 diabetes mellitus [...] present; Allergic rhinitis, unspecified seasonality, unspecified trigger 11/18/2025 Travel 11/17/[address] [address] Myah Singh MD 11/17/[address] [address] Myah Singh MD chart prep 10/30/2025 Telephone [facility] [address] [place], [place] [phone] Myah Singh MD fyi 10/14/2025 Refill [facility] [address] [place], [place] [phone] Myah Singh MD 10/13/2025 Refill [facility] [address] [place], [place] [phone] Myah Singh MD from Last 3 Months Immunizations Immunization Administration Dates Next Due Influenza High-dose Quadriva lent Preservative Free 09/11/2023,10/03/2022,09/22/2021 Influenza injectable quadriv alent IIV4 with preservative 09/27/2017,08/18/2015 Influenza injectable quadriv alent preservative free 12/22/2016 Influenza, High Dose Seasona l, Preservative Free 12/23/2024,12/09/2019,08/23/2018 Influenza, IIV3, injectable 10/21/2014, 1 Influenza, Split (incl. meghan fied surface antigen) 10/27/2015,09/27/2013,12/10/2012 Influenza, Unspecified 10/03/2022,2020,10/21/2014,08/22 Pfizer Covid-19 Vaccine 12+ [...] on patient's age to complete this topic Goals Goal Patient Goal Type Associated Problems [...] chronic kidney disease No Ariadne Hernandez RN Weekly blood pressure task Care Plan Weekly blood pressure task No Ana Luisa Aquino Weekly blood pressure task Care Plan Weekly blood pressure task No Ana Luisa Aquino Patient has chronic kidney disease Care Plan Patient has chronic kidney disease No Ana Luisa Aquino Patient has chronic kidney disease Care Plan Patient has chronic kidney disease No Marcie Aquinoa Weekly blood pressure task Care Plan Weekly blood pressure task No Marcie Aquinoa Weekly blood pressure task Care Plan Weekly blood pressure task No Marcie Aquinoa Patient has chronic kidney disease Care Plan Patient has chronic kidney disease No Ana Luisa Aquino Patient has chronic kidney disease Care Plan Patient has chronic kidney disease No Ana Luisa Aquino Procedures Procedure Name Priority Date/Time Associated Diagnosis [...] 12:20 PM EST) Triglycerides 130 <150 mg/dL [facility] Comment:Desirable Triglyceri de: less than 150 mg/dLBorderline High Triglyceride 150-199 mg/dLHigh Triglyceride: 200-499 mg/dLVery High Triglyceride: greater than or equal to 5OO mg/dL Cholesterol 109 <200 mg/dL [facility] Comment:Desirable Cholestero l: less than 200 mg/dLBorderline High Cholesterol: 200-239 mg/dLHigh Cholesterol: greater than 239 mg/dL LDL Cholesterol Calculated 41 <100 mg/dL [facility] Comment:Desirable LDL: less than 100 mg/dLNear Optimal/Above Optimal LDL: 110- 129 mg/dLBorderline High LDL: 130-159 mg/dLHigh LDL: 160-189 mg/dLVery High LDL: greater than or equal to 190 mg/dL HDL Cholesterol 42 >40 mg/dL [facility] Comment:Desirable HDL: great er than 40 mg/dL Note: This HDL assay may give artificially low results in patients with liver disease. Blood 01/22/2024 12:2 0 PM EST 01/22/2024 1:11 PM EST us Myah Singh MD LAB BLOOD ORDERABLES Final Resul t [facility] [address] [place] [phone] * (ABNORMAL) POCT glycosylated hemoglobin (Hgb A1c) (09/11/2023 10:29 AM EDT) Hemoglobin A1C 6.2(A) 4.0 - 6.0 % QC Media Lot # [id number] Lot# Expiration Date Blood Capillary blood specimen / Unknown 09/11/2023 10:29 AM EDT Myah Singh MD POINT OF CARE TEST ENTER/EDIT OR DERABLES Final Result from Last 3 Months or Most Recently Relevant to Health Maintenance Additional Health Concerns Active Problems Noted Date [...] 11/18/2025 Patient has chronic kidney disease 11/18/2025 Weekly blood pressure task 11/19/2025 Weekly blood pressure task 11/19/2025 Patient has chronic kidney disease 11/19/2025 Patient has chronic kidney disease 11/19/2025 Weekly blood pressure task 11/19/2025 Weekly blood pressure task 11/19/2025 Patient has chronic kidney disease 11/19/2025 Patient has chronic kidney disease 11/19/[address] [facility] [employer] (HMO D-SNP) [place] [id number] Care Teams Vinegar Maker Relationship Specialty Start Date End Date Myah Singh MD [address] [place] [address] [place] [address] PCP - General Family Medicine 11/08/12 [facility] 10/31/25
--- OUTSIDE RECORDS SUMMARY | 2025-11-22 17:53 | XMS_ITS | Encounter Summary ---
Author Organization [facility] Address [address] [place] [address] Care Team Providers Care Deputy Director Of Finance Name Role Phone Tony Arreola MD Primary Care Provider [phone] Encounter Details Date Type Department Care Team (Late st Contact Info) Description 12/14/2024 Lab Requisition [facility] - Main Lab [address] [place] [address] Tony Arreola MD [address] [facility] [address] [place], [address] Weakness; Unspecified dementia, unspecified severity, without [...] mmol/L LAB CHEMISTRY METHOD 12/16/2024 1:55 PM [facility] Potassium 4.1 3.5 - 5.5 mmol/L LAB CHEMISTRY METHOD 12/16/2024 1:55 PM [facility] Chloride 113(H) 96 - 110 mmol/L LAB CHEMISTRY METHOD 12/16/2024 1:55 PM [facility] CO2 28 21 - 32 mmol/L LAB CHEMISTRY METHOD 12/16/2024 1:55 PM [facility] Anion Gap 5 3 - 11 LAB CHEMISTRY METHOD 12/16/2024 1:55 PM [facility] Glucose 88 70 - 100 mg/dL LAB CHEMISTRY METHOD 12/16/2024 1:55 PM [facility] BUN 25 5 - 25 mg/dL LAB CHEMISTRY METHOD 12/16/2024 1:55 PM [facility] Creatinine 1.26(H) 0.50 - 1.10 mg/dL LAB CHEMISTRY METHOD 12/16/2024 1:55 PM [facility] eGFR 41(L) >=60 mL/min/1. 73m2 LAB CHEMISTRY METHOD 12/16/2024 1:55 PM [facility] Comment:Calculation based on the Chronic Kidney Disease Epidemiology Collaboration (CKD-EPI) equation refit without adjustment for race. BUN/Creatinine Ratio 19.8 LAB CHEMISTRY METHOD 12/16/2024 1:55 PM [facility] Calcium 9.3 8.5 - 10.5 mg/dL LAB CHEMISTRY METHOD 12/16/2024 1:55 PM [facility] Blood Venous blood specimen / Unknown Venipuncture / Unknown 12/16/2024 7:20 AM EST 12/16/2024 11:32 AM EST us Tony Arreola MD LAB BLOOD ORDERABLES Final Resul t [facility] [address] [place] [address], [place] [phone] * (ABNORMAL) Complete blood count (12/16/2024 7:20 AM EST) [facility] WBC 5.4 4.8 - 10.8 K/mcL LAB HEMETOLOGY METHOD 12/16/2024 12:51 PM [facility] RBC 4.60 3.80 - 4.80 M/mcL LAB HEMETOLOGY METHOD 12/16/2024 12:51 PM [facility] Hemoglobin 13.4 11.5 - 16.0 g/dL LAB HEMETOLOGY METHOD 12/16/2024 12:51 PM [facility] Hematocrit 43.8 35.0 - 47.0 % LAB HEMETOLOGY METHOD 12/16/2024 12:51 PM [facility] MCV 95.8 79.0 - 98.0 FL LAB HEMETOLOGY METHOD 12/16/2024 12:51 PM [facility] MCH 29.3 27.0 - 32.0 pcg LAB HEMETOLOGY METHOD 12/16/2024 12:51 PM [facility] MCHC 30.6(L) 32.0 - 37.0 g/dL LAB HEMETOLOGY METHOD 12/16/2024 12:51 PM [facility] RDW 14.9 11.0 - 15.0 % LAB HEMETOLOGY METHOD 12/16/2024 12:51 PM [facility] Platelets 135 130 - 400 K/mcL LAB HEMETOLOGY METHOD 12/16/2024 12:51 PM [facility] MPV 12.3(H) 7.0 - 11.0 FL LAB HEMETOLOGY METHOD 12/16/2024 12:51 PM [facility] NRBC 0.0 <1.0 % LAB HEMETOLOGY METHOD 12/16/2024 12:51 PM [facility] NRBC Absolute 0.00 <0.10 K/mcL LAB HEMETOLOGY METHOD 12/16/2024 12:51 PM EST [facility] Blood Venous blood specimen / Unknown Venipuncture / Unknown 12/16/2024 7:20 AM EST 12/16/2024 11:32 AM EST us Tony Arreola MD LAB BLOOD ORDERABLES Final Resul t [facility] [address] [place] [address], documented in this encounter Visit Diagnoses Diagnosis Weakness Other malaise and fatigue Unspecified dementia, unspecified severity, without behavioral disturbance, psychotic disturbance, mood disturbance, and anxiety (CMS/HCC V24, CMS/HCC V28) documented in this encounter Care Teams Deputy Director Of Finance Relationship Specialty Start Date End Date Tony Arreola MD [address] [place] [address] [address] [place], [phone] PCP - General Family Medicine 12/14/24 documented as of this encounter
--- OUTSIDE RECORDS SUMMARY | 2025-11-22 17:53 | XMS_ITS | Encounter Summary ---
Author Organization [employer] Address [address] [facility] 7[address] [place] [address] Care Team Providers Care Manager Community Development Name Role Phone Myah Singh MD Primary Care Provider [phone] Reason for Visit * Reason Comments Med Refill Encounter Details Date Type Department Care Team (Late st Contact Info) Description 11/17/2025 Refill [facility] MEDICINE [address] [place], [place] [phone] Myah Singh MD [address] [place], [place] [phone] Social History Tobacco Use Types Packs/Day Years [...] encounter Miscellaneous Notes * Telephone Encounter - Ariadne Hernandez RN - 11/18/2025 10:51 AM EST [facility] requested as below. * Telephone Encounter - Ariadne Hernandez RN - 11/18/2025 10:31 AM EST ----- Message from Myah Singh MD sent at 11/18/2025 10:12 AM EST ----- During televisit today, patient's caregiver states patient was just discharged from the assisted recently and now has right eye swelling and dark discoloration of her right 5th toes. It is getting darker. Patient has dementia and does not say much. Her caregiver is having a difficulty breathingdue to asthma exacerbation. Please call [facility] service to evaluate patient at home. Thank you. documented in this encounter Plan of Treatment [...] chronic kidney disease No Allyn Nur MA documented as of this encounter Visit Diagnoses [...] 11/17/2025 Patient has chronic kidney disease 11/17/2025 Assessment Noted Time PHQ-9 Depression Total Score: 0 05/08/20 23 10:25 AM EDT documented as of this encounter Care Teams Manager Community Development Relationship Specialty Start Date End Date Myah Singh MD [address] [place] [id number] PCP - General Family Medicine 11/08/12 [facility] 10/31/25 documented as of this encounter
--- OUTSIDE RECORDS SUMMARY | 2025-11-22 17:53 | XMS_ITS | Continuity of Care Document ---
Author Organization [employer] [facility] Address [address] [place] [address] Care Team Providers Care Shingle Inspector Name Role Phone HIM CCA OTHER Assessment Encounter Date Assessment Date Assessment LastModified by Organization Details LastModified Time 11/11/2025 11/11/2025 Ms. Mendez is a 89 yo F with Congestive Heart Failure, Coronary Artery Disease whose family is calling today about some confusion. Per patient and medic, patient is having some back pain. Has been more confused per family, so they were worried she has a UTI. Has been moaning at night. f eels bad but no actual back pain. No actual wound or decubitus ulcer that was visualized with the medic. Missed catching a urine in the hat, but family will try again later. No cough/cold sx. No leg pain or calf tenderness. No chest pain or SOB. Family thought it could be a UTI because she's baseline incontinent and patient wears a brief. Also has been more malodorous. No falls or head strikes. Given that she's unable to give a urine sample today, will need a repeat visit tomorrow, was unable to give urine sample. I did place orders for POC UA and Ucx. Would advise that if still sx, may need in person eval. Still being treated with topical erythromycin ointment for stye, no conjunctival injection, sx somewhat improving. And then has had less of an appetite, so consider BMP tomorrow, if still minimal intake. I provided real -time medical direction via phone for this encounter, and was available for additional phone based assistance as needed. I have reviewed and agree with the Assessment and Plan as documented by the Manager Disaster Recovery. We discussed the diagnostic uncertainty of home visits and the risk associated with this. In this case the patient and I felt this to be an acceptable and reasonable amount of risk given the benefit of avoiding an ED visit. The patient given the opportunity to ask questions. Follow up with primary care was recommended, as needed. Advised if develops CP/severe SOB/turning blue/uncontrolle d n/v/d or black/bloody emesis or stool/ AMS/ syncope/ high fever unresponsive to APAP to call 911- verbalized understanding of instruction. [email or web address] Not available 11/11/2025 20:09:38 Plan of Treatment Reminders Order Date Submit Date Provider Last Modified By Organization Details Last Modified Time Details Appointments None recorded. Lab urinalysis , dipstick 2024 025 [facility], [address] [place] [address], [id number] 20:43:32 culture, urine 2024 025 [email or web address] [facility] (Centralized Electronic Ordering - All Locations), Patient Can Go To The Location Of Their Choice, [address] 09:36:38 Referral None recorded. Procedures None recorded. Surgeries [...] Name and Address Organization Details Recorded Time 82964 benzocain e / butamben / tetracain e medicatio n Not available Not available Not available 11/11/2025 53580 7 RxNorm Not Available [employer] - External Data Service - prod 18:42:47 55549 morphine medicatio n Not available Not available Not available 11/11/2025 7052 RxNorm Not Available [facility] - production 11:57:09 08500 Reglan medicatio n Not available Not available Not available 11/11/2025 9230 RxNorm Not Available [facility] - production 11:01:54 74996 tetracain e medicatio n Not available Not available Not available 11/11/2025 44420 RxNorm Not Available [facility] - production 5 11:01:54 61786 benzocain e medicatio n Not available Not available Not available 11/11/2025 1399 RxNorm Not Available [facility] - production 5 11:01:54 02051 butamben medicatio n Not available Not available Not available 11/11/20252023 24257 RxNorm Not Available [facility] - External Data Service - prod 18:42:48 09098 metoclopr amide Not available Not available Not available Not available 11/11/2025 6915 RxNorm Not Available [facility] - production 11:01:54 14354 ceftazidi me anhydrous medicatio n Not available Not available Not available 11/11/2025 69460 84 RxNorm Not Available [facility] 5 11:01:54 14831 tetracycl ine medicatio n Not available Not available Not available 11/12/2025 66702 RxNorm Not Available [facility] 5 11:57:09 58065 dobutamin e medicatio n Not available Not available Not available 11/12/2025 3616 RxNorm Not Available [facility] 5 11:57:09 Medications Name Sig Start Date [...] Vitals Date Recorded Respiratory rate Oxygen saturation Heart rate Body height Body weight Body temperature Systolic And Diastolic Provider Name and Address Organization Details Last Updated DateTime 5 16 /min 96 % 64 /min 160.02 cm 11925.4 8 g 98.1 [degF] 128/66 mm[Hg] Not Available [facility] - production 18:42:19 Social History None recorded. Functional Status None recorded. Mental Status None recorded. Family History Nothing Reported. Medical History No medical history recorded. Gynecological HistoryNo gynecological history recorded. Obstetrics History GPAL:G 0 P 0 0 0 0 Past Encounters Encounter ID Performer Location Encounter Start Date Encounter Closed Date Diagnosis/Indication Diagnosis SNOMED-CT Code Diagnosis ICD10 Code Diagnosis IMO Codes Diagnosis Note [id number] CARLENE MAURICE MD [facility] ED Medical [facility] [address] [place] [address] 11/11/2025 18:42:11 11/11/2025 21:30:48 Malodorous urine 415420158 R82.90 [id number] Health Concerns Section Related Observation LastModified by Organization Detai ls LastModified Time None Recorded Concern Status LastModified by Organization Details LastModified Time None Recorded Payers Encounter Date Sequence Insurance Name Policy Number Policy Gonzalez Covered Member ID Gonzalez Member ID Guarantor Name 11/11/2025 1 [facility] - DOS ON OR AFTER 2023 - DUAL ELIGIBLE - [employer] OPTIONS AND ONE C[employer] (MEDICARE REPLACEMENT/ADV ANTAGE - HMO) Sienna Mendez [id number] Sienna Mendez Notes Date Note Type Note Provider Name and Address Organization Details Recorded Time 11/11/2025 text/html ROS as noted in the [facility] Nurse Triage Notes (Juhi Saavedra): Reason For Request: lower back pain, lethargic,.Denies: Chavez Flash, circumferential chavez Chavez reported with black tissue to the area Open skin area after a fall with uncontrolled bleeding Abscess/infection with streaking noted, presence of fever or without Chief Complaints: Confusion, WeaknessPMH: Congestive Heart Failure, Coronary Artery DiseasePMH Reviewed at 11/11/2025 - 11:21 (ET)Allergies Reviewed at 11/11/2025 - 11:21 (ET)Comments: 89 y.o female complains of Confusion, Weakness VNA calling in to place a referral on patients behalf per nieces requestPatient with increased weakness, lethargy and increased back/body painPatient not transfering or walking as usual, using her wheelchair moreDuring VNA visit patient was still in bedHer lung sounds were clear, no edema, unknown diuretic useNo concern for neuro deficits per VNAPer niece she is prone to UTI, VNA unsure of there are any symptomsBP 117/52, HR 68, o2 RA 94-95Family would like her evaluated I provided information on the mobile health provider response time and advised the patient and/or caregiver to monitor reported signs and symptoms. I discussed the warning signs of when to seek emergency care. Manager Disaster Recovery Organization Information for Carolina De Dios Legal Name: [employer]. A ddress: [address] [place] [address], Medical Director: Loco Denton [facility] No.: [id number] Manager Disaster Recovery POC Test Results from Carolina De Dios Rapid COVID antigen (18:37:42)COVID: -Attachments uploaded as part of this test result can be found under Documents section. Rapid influenza antigen (18:37:43)Flu: - ..................... ..................... ..................... ..................... ..................... ..................... ............... Manager Disaster Recovery Note From Carolina De Dios: MS12 responds to the listed address for an 89 yof w/ confusion and weakness. Upon arrival on scene, pt is found laying reclined supine in a recliner in the small apartment where she lives alone. She is conscious and alert and watches [facility] enter her home. She stares intently at [facility] and is not in acute distress. Pt is Bengali speaking only and family is on scene to provide hx and translation. Pt tells [facility] she feels bad, but she is unable to verbalize what she means other than she has pain in her body and she is cold. She denies dizziness/light headedness, cp, sob, nausea, abd pain, or coughs, but has some back pain and shoulder pain. 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 Pt wears briefs and when changed, the odor has been very strong. No dark color or red/jackson/pink color are noted in the urine. Family says it is difficult to get pt to drink fluids. Ddx: UTI, dehydration, URI [facility] obtains vital signs and pt is assessed. She is afebrile, normotensive, and not hypoxic. Head is atraumatic and normocephalic. Sclera are clear and extraocular [...] and healthy skin w/ good capillary return. [facility] contacts [facility] and discusses the above. Granddaughter is sure she can collect urine before pt goes to bed tonight, so [facility] discusses leaving soap and urine cup and a revisit tomorrow. [facility] authorizes [facility] to leave the necessary supplies and will leave a note for a revisit tomorrow. Pt is left in stable condition in the presence of family. [facility] is clear. Report completed by Jose A De Dios [id number]. [facility] Lab Orders: urinalysis, dipstick: Not Performed Comment: Sample not collected culture, urine: Not Performed Comment: Sample not collected ..................... ..................... ..................... ..................... ..................... ..................... ............... [facility] Consulted: Carlene Maurice ..................... ..................... ..................... ..................... ..................... ..................... ............... Disposition: Fulfilled CARLENE MAURICE MD [address] [place] [address],[address], [place], [address], [employer] 11/11/2025 20:09:47 OBGyn Episode No OBEpisode recorded.
--- OUTSIDE RECORDS SUMMARY | 2025-11-22 17:53 | XMS_ITS | Clinical Summary ---
Author Organization [address] [facility] Address [address] [place] [address] Phone Care Team Providers Care Digital Advertising Analyst Name Role Phone Tony Arreola MD Primary Care Provider [phone] Social History Tobacco Use Types Packs/Day Years [...] LAB CHEMISTRY METHOD 02/24/2025 9:[address] [facility] Mean Bld Glu Estim. 123 mg/dL LAB CHEMISTRY METHOD 02/24/2025 9:[address] [facility] Blood Venous blood specimen / Unknown Venipuncture / Unknown 02/24/2025 6:34 AM EDT 02/24/2025 10:44 AM EDT Venus Mayberry MD LAB BLOOD ORDERABLES Final Resul t [facility] [address] [place] [address], * (ABNORMAL) Comprehensive metabolic panel (02/24/2025 6:34 AM EDT) Sodium 142 133 - 145 mmol/L LAB CHEMISTRY METHOD 02/24/2025 12:[address] [facility] Potassium 4.1 3.5 - 5.5 [...] mg/dL LAB CHEMISTRY [facility] eGFR 53(L) >=60 [...] LAB CHEMISTRY METHOD 02/24/2025 12:[address] [facility] ALT (SGPT) 36 10 - 60 unit/L LAB CHEMISTRY METHOD 02/24/2025 12:[address] [facility] Alkaline Phosphatase 82 42 - 121 unit/L LAB CHEMISTRY METHOD 02/24/2025 12:[address] [facility] Total Protein 6.8 6.0 - 8.0 g/dL LAB CHEMISTRY METHOD 02/24/2025 12:[address] [facility] Albumin 3.1(L) 3.2 - 5.0 g/dL LAB CHEMISTRY METHOD 02/24/2025 12:[address] [facility] Total Bilirubin 0.4 0.0 - 1.4 mg/dL LAB CHEMISTRY METHOD 02/24/2025 12:[address] [facility] Blood Venous blood specimen / Unknown Venipuncture / Unknown 02/24/2025 6:34 AM EDT 02/24/2025 10:44 AM EDT Venus Mayberry MD LAB BLOOD ORDERABLES Final Resul t [facility] [address] [place] [address], from Last 3 Months or Most Recently Relevant to Health Maintenance Insurance [facility] MEDICARE Member Subscriber Plan / Payer (Ef fective 2019-Present) Name:Sienna Mendez Relation to Subscriber:Self Name:Sienna Mendez Payer ID:[id number] Group ID:[id number] Type:Not on file Address: [address] [place] [id number] Care Teams Digital Advertising Analyst Relationship Specialty Start Date End Date Tony Arreola MD [address] [place] [address] [address] [place], [phone] PCP - General Family Medicine 12/14/24
--- OUTSIDE RECORDS SUMMARY | 2025-11-22 17:53 | XMS_ITS | Encounter Summary ---
Author Organization [employer] Address [address] [facility] 7t [place] [address] Care Team Providers Care Tamper Operator Name Role Phone Myah Singh MD Primary Care Provider [phone] Reason for Visit * Reason Comments Med Refill Encounter Details Date Type Department Care Team (Late st Contact Info) Description 10/22/2024 Refill [facility] MEDICINE [address] [place], [place] [phone] Myah Singh MD [address] [place], [place] [phone] Allergic rhinitis, unspecified seasonality, unspecified trigger Social [...] documented as of this encounter Care Teams Tamper Operator Relationship Specialty Start Date End Date Myah Singh MD [address] [place] [address] PCP - General Family Medicine 11/08/12 [facility] 12/31/24 07/29/25 [facility] 10/31/25 documented as of this encounter
--- OUTSIDE RECORDS SUMMARY | 2025-11-22 17:53 | XMS_ITS | Data Portability ---
Author Organization [employer], [facility] Address [address] [place] [address] Care Team Providers Care Cash Room Clerk Name Role Phone HIM CCA OTHER Assessment Encounter Date Assessment Date Assessment LastModified by Organization Details LastModified Time 09/10/2022 09/10/2022 87y F with CKD 3 , HTN, dementia presenting for r/o UTI iso [...] call us back or present to ER. [facility] Not available 09/10/2022 17:39:51 11/11/2025 11/11/2025 Ms. Mendez is a 89 [...] Assessment and Plan as documented by the Apparel Pattern Maker. We discussed the diagnostic uncertainty of home visits and the risk associated with this. In this case the patient and I felt this to be an acceptable and reasonable amount of risk given the benefit of avoiding an ED visit. The patient given the opportunity to ask questions. Follow up with primary care was recommended, as needed. Advised if develops CP/severe SOB/turning blue/uncontrolled n/v/d or black/bloody emesis or stool/ AMS/ syncope/ high fever unresponsive to APAP to call 911- verbalized understanding of instruction. [email or web address] Not available 11/11/2025 20:09:38 11/12/2025 11/12/2025 I have reviewed and agree with the assessment and plan as documented by the corduroy cutting supervisor. I provided real time medical direction for this encounter and was immediately available to provide additional phone based assistance as needed. History as noted by corduroy cutting supervisor. Pt with history of Congestive Heart Failure, [...] with them. [email or web address] Not available 11/12/2025 14:54:57 11/18/2025 11/18/2025 I have reviewed and agree with the assessment and plan as documented by the corduroy cutting supervisor. I provided real-time medical direction for this encounter and was immediately available to provide additional phone-based assistance as needed. History as noted in EMR and by corduroy cutting supervisor. I would add / emphasize: Patient seen [...] recorded. Lab urinalysi s, dipstick 2024 025 [facility], [address] [place], [address] 15:13:32 culture, urine 2024 025 TETON [facility] (Centralized Electronic Ordering - All Locations), Patient Can Go To The Location Of Their Choice, [address] 12/19/202 5 12:06:22 urinalysi s, dipstick 2024 025 [facility], [address] [place] [address], [address] 20:43:32 culture, urine 2024 025 [email or web address] [facility] (Centralized Electronic Ordering - All Locations), Patient Can Go To The Location Of Their Choice, [address] 09:36:38 cmp, whole blood + waqar 2021 [facility], [address] [place] [address], [id number] 10:38:51 culture, urine 2021 TETON [facility] (Centralized Electronic Ordering - All Locations), Patient Can Go To The Location Of Their Choice, [address] 3 05:01:48 Referral None recorded. Procedures None recorded. Surgeries None recorded. Imaging None recorded. Medication Orders Macrobid 100 mg capsule 2024 025 [facility], [address] [place] [address], [id number], 13:15:29 Macrobid 100 mg capsule 2024 025 [id number], [address] [place], [address], 13:08:56 Patient TargetsNo targets recorded. Patient InstructionsNo instructions recorded. Reason for Referral None Reported. Results Created Date Observation Date Name Description Value Unit Range Abnormal Flag Note LastModifiedBy Organization Detail LastModifiedTime 11/12/2011/16/2025 URINE CULTU LUCIANO LINTON urine culture, routine Final report abnormal Not Available [facility] ([facility]) [address] [facility], [place], [address], 11/16/2025 12:05:29 11/12/20 25 11/16/2025 URINE CULTU RE, ROUTI NE result 1 Escher ichia coli abnormal Great er than 100,0 00 colon y formi ng units per mL Not Available [facility] ([facility]) [address] [facility], [place], [address], 11/16/2025 12:05:29 11/12/20 25 11/16/2025 URINE CULTU [...] thopr im/Dang lfa S Not Available [facility] ([facility]) [address] [facility], [place], [address], 11/16/2025 12:05:29 Result Notes None recorded. Medical Equipment None Reported. Allergies Allergen ID Allergen Name Allergen Category Reaction Reaction Severity Criticality Documentation Date Start Date Code Code System Note Provider Name and Address Organization Details Recorded Time benzocain e / butamben / tetracain e medicatio n Not available Not available Not available 11/11/2025 90378 7 RxNorm Not Available michael - External Data Service - prod 18:42:47 57831 morphine medicatio n Not available Not available Not available 11/11/2025 7052 RxNorm Not Available [facility] - production 11:57:09 66485 Reglan medicatio n Not available Not available Not available 11/11/2025 9230 RxNorm Not Available [facility] - production 11:01:54 04604 tetracain e medicatio n Not available Not available Not available 11/11/2025 79695 RxNorm Not Available [facility] - production 5 11:01:54 77159 benzocain e medicatio n Not available Not available Not available 11/11/2025 1399 RxNorm Not Available [facility] - production 5 11:01:54 78570 butamben medicatio n Not available Not available Not available 11/11/20252023 73508 RxNorm Not Available procious - [employer] Data [employer] - prod 18:42:48 84200 metoclopr amide Not available Not available Not available Not available 11/11/2025 6915 RxNorm Not Available [facility] 5 11:01:54 89686 ceftazidi me anhydrous medicatio n Not available Not available Not available 11/11/2025 56405 84 RxNorm Not Available [facility] 5 11:01:54 14760 tetracycl ine medicatio n Not available Not available Not available 11/12/2025 31237 RxNorm Not Available [facility] - production 5 11:57:09 73197 dobutamin e medicatio n Not available Not available Not available 11/12/2025 3616 RxNorm Not Available [facility] 5 11:57:09 Medications Name Sig Start Date [...] /min 101/63 mm[Hg] 101/63 mm[Hg] Not Available [employer] - production 2 17:29:05 Date Recorded Respiratory rate Oxygen saturation Heart rate Body height Body weight Body temperature Systolic And Diastolic Provider Name and Address Organization Details Last Updated DateTime 5 16 /min 96 % 64 /min 160.02 cm 75342.4 8 g 98.1 [degF] 128/66 mm[Hg] Not Available [employer] [employer] 5 18:42:19 Date Recorded Heart rate Respiratory rate Oxygen saturation Body temperature Systolic And Diastolic Provider Name and Address Organization Details Last Updated DateTime 5 94 /min 18 /min 96 % 98.4 [degF] 142/80 mm[Hg] Not Available [employer] 5 12:58:12 Date Recorded Body temperature Body height Oxygen saturation Respiratory rate Heart rate Body weight Systolic And Diastolic Provider Name and Address Organization Details Last Updated DateTime 5 98.1 [degF] 160.02 cm 94 % 18 /min 83 /min 27845.8 88 g 99/68 mm[Hg] Not Available [employer] 5 14:53:22 Social History None recorded. Functional Status [...] 4625 Kenia Hernandez MD Main - [facility] [address] [place] [phone] 09/10/2022 16:51:17 09/12/2022 13:08:31 Right upper quadrant pain 711676869 R10.11 22411 MARISSA ELI MD Main-inst ED Medical [address] [address] 11/11/2025 18:42:11 11/11/2025 21:30:48 Malodorous urine [id number] R82.90 [id number] 89739 Remigio Juan MD [facility] ED Medical [facility] [address] [place] [address] 11/12/2025 12:58:07 11/12/2025 16:34:43 Urinary tract infectious disease 99681723 N39.0 [id number] Tahir Trotter MD [facility] Medical [facility] [address] [place] [address] 11/18/2025 14:53:10 11/19/2025 17:53:59 Multiple symptoms 69600948 R68.89 [id number] Health Concerns Section Related Observation LastModified by Organization Detai ls LastModified Time None Recorded Concern Status LastModified by Organization Details LastModified Time None Recorded Advance Directives Directive None Recorded Payers Insurance Date Sequence Insurance Name Policy Number Policy Gonzalez Covered Member ID Gonzalez Member ID Guarantor Name 01/21/2024 1 [facility] - DOS PRIOR TO 2023 - DUAL ELIGIBLE (MEDICARE REPLACEMENT/ADV ANTAGE - HMO) Sienna Mendez [id number] Sienna Mendez 11/19/2025 1 [facility] - DOS ON OR AFTER 2023 - DUAL ELIGIBLE - LONGTERM OPTIONS AND ONE CARE (MEDICARE REPLACEMENT/ADV ANTAGE - HMO) Sienna Mendez [id number] Sienna L Mendez Notes Date Note Type Note Provider [...] and assists coordinate all visitsher number is [phone], member uses this number as her Primary contact. Member is an 87 yo female with old VA, osteoarthritis, thrombocytopenia and HTN hrt & CKD and Modereate Dementia. Pleasantly confused. Supportive family. This RNCP recommends Female Providers if possible. Can the results be faxed to [facility] at [phone] Singh if possible? ...................... ...................... ...................... ...................... ...................... ...................... ......... CRC Nursing Assessment: Comments: CRC RN did not require any additional information to process this visit. Spoke with daughter who agrees to visit for 09/10> would like to be seen early in the day if possible [facility] HPI:chronic kidney disease, dementia, HTN, CAD with acute on chronic progressive behavior changes. eating normally, voiding normally, drinking normally, no vomiting, no diarrhea, no fevers, cough. No one else has been sick at home. No changes the family can identify in terms of schedule. No reports of worse unsteadiness on her feet or falls.Granddaughter reports that PMH includes cirrhosis Kenia Hernandez MD [address] [facility],[address] [facility], [place], [address], [employer] 09/10/2022 17:40:46 11/11/2025 text/html ROS as noted in the HPI CRC Nurse Triage Notes (Juhi Saavedra): Reason [...] signs of when to seek emergency care. Apparel Pattern Maker Organization Information for [facility] IM[facility]ica[facility]son Legal Name: [address] A ddress: [address] [place] [address], Medical Director: Loco Denton [facility] No.: [id number] Apparel Pattern Maker POC Test Results from [facility] Rapid COVID antigen (18:37:42)COVID: -Attachments uploaded as part of this test result can be found under Documents section. Rapid influenza antigen (18:37:43)Flu: - ...................... ...................... ...................... ...................... ...................... ...................... ......... Apparel Pattern Maker Note From Stacey De Diosyuli: SC12 responds to the listed address for an 89 yof w/ confusion and weakness. Upon arrival on scene, pt is found laying reclined supine in a recliner in the small apartment where she lives alone. She is conscious and alert and watches [facility] enter her home. She stares intently at [facility] and is not in acute distress. Pt is Japanese speaking only and family is on scene to provide hx and translation. Pt tells [facility] she feels bad, but she is unable to verbalize what she means other than she has pain in her body and she is cold. She denies dizziness/light headedness, cp, sob, nausea, abd pain, or coughs, but has some back pain and shoulder pain. Family reports pt has two donkey engine firer/fireman that are w/ her as well as [...] to drink fluids. Ddx: UTI, dehydration, URI [facility] obtains vital signs and pt is assessed. [...] and healthy skin w/ good capillary return. [facility] contacts [facility] and discusses the above. Granddaughter is sure she can collect urine before pt goes to bed tonight, so [facility] discusses leaving soap and urine cup and a revisit tomorrow. [facility] authorizes [facility] to leave the necessary supplies and will leave a note for a revisit tomorrow. Pt is left in stable condition in the presence of family. MIH is clear. Report completed by Jose A De Dios [id number]. [facility] Lab Orders: urinalysis, dipstick: Not Performed Comment: Sample not collected culture, urine: Not Performed Comment: Sample not collected ...................... ...................... ...................... ...................... ...................... ...................... ......... [facility] Consulted: Marissa Eli ...................... ...................... ...................... ...................... ...................... ...................... ......... Disposition: Fulfilled MARISSA ELI MD [address] [place] [address],[address], [place], [address], [employer] 11/11/2025 20:09:47 11/12/2025 text/html ROS as noted in the HPI This was a supervised home visit with corduroy cutting supervisor Mariano Garcia. CRC Nurse Triage Notes (Maricruz [...] signs of when to seek emergency care. Apparel Pattern Maker Organization Information for [employer] Mariano Christie Donato Legal Name: [employer], [facility]. A ddress: [address] [place] [address], USMedical Director: Loco Denton [facility] No.: [id number] Apparel Pattern Maker POC Test Results from [employer] Mariano Christie WILLAMS Urine Dipstick (12:47:46)Urine leukocytes: 70 +-LEUUrine nitrites: +NITUrine urobilinogen: 0.2 3.5UROUrine protein: 15 +- 0.15PROUrine pH: 5.0pHUrine blood: -BLOUrine specific gravity: 1.025SGUrine ketones: 5 +- 0.5KETUrine bilirubin: 1 + 17BILUrine glucose: -GLUAttachments uploaded as part of this test result can be found under Documents section. ...................... ...................... ...................... ...................... ...................... ...................... ......... Apparel Pattern Maker Note From Mariano Garcia: Encountered patient supine [...] today, urinalysis dip performed; values uploaded via [employer]front[employer]k. Culture retrieved for [facility] delivery. Skin warm, dry and of appropriate color for ethnicity. Head and neck, free of trauma and edema. -JVD. Breath sounds present, clear and equal bilaterally in the apexes but exhibits rales in the bases bilaterally; [facility] notified. Abdomen is soft, non-tender and non-distended. Extremities free of trauma and edema. [facility] Contacted: states they will treat patient for suspected UTI based on presentation and urinalysis results. 100mg PO Macrobid administered after medication rights were reconciled with family. [facility] states they will send a prescription for [...] are comfortable with patient remaining home today. [facility] Lab Orders: urinalysis, dipstick: Performed culture, urine: Performed ...................... ...................... ...................... ...................... ...................... ...................... ......... [facility] Consulted: Remigio Juan ...................... ...................... ...................... ...................... ...................... ...................... ......... Disposition: Bam Juan MD [address] [place] [address],[address], [place], [address], [employer] 11/12/2025 14:55:22 11/18/2025 text/html HPI: Patient had telehealth appointment today with PCP Dr. Singh. Per provider: just discharged from the half-way recently and now has right eye swelling and dark discoloration of her right 5th toes. It is getting darker. Patient has dementia and does not say much. Her caregiver is having a difficulty breathing due to asthma exacerbation. ...................... ...................... ...................... ...................... ...................... ...................... ......... CRC Nurse Triage Notes (aNtty Jin): Chief Complaints: Breathing Problems, Eye Complaint, Wound Care PMH: Congestive Heart Failure, Coronary Artery Disease, Hypertension, Hyperlipidemia, Chronic Kidney Disease, Diabetes Mellitus Type 2, Asthma, Dementia (e.g., Alzheimer's Disease), Cirrhosis, Stroke PMH Reviewed at 11/18/2025 - 11:01 (ET) Allergies Reviewed at 11/18/2025 - (ET) Comments: Reviewed HPI. ...................... ...................... ...................... ...................... ...................... ...................... ......... Apparel Pattern Maker Note From Promise Siddiqui: Sent to a [...] no tenderness or abnormalities of skin noted; [facility] consulted and family is advised to admnister Macrobid as prescribed, stop erythromycin for eye and f/u with house registry rn, and [facility] will send note regarding x-rays. Family advised to follow up with PCP about x-rays as well. Red flags discussed. Family has no further questions. ...................... ...................... ...................... ...................... ...................... ...................... ......... [facility] Consulted: Tahir Trotter ...................... ...................... ...................... ...................... ...................... ...................... ......... Disposition: Fulfilled Tahir Trotter MD [address] [facility],[address], [place], [address], [employer] 11/19/2025 15:10:11 OBGyn Episode No OBEpisode recorded.
--- OUTSIDE RECORDS SUMMARY | 2025-11-22 17:53 | XMS_ITS | Encounter Summary ---
Author Organization [employer] Address [address] [facility] [address] [place] [address] Care Team Providers Care School Fundraising Director Name Role Phone Myah Singh MD Primary Care Provider Reason for Visit * Reason Onset Date Comments chart prep 11/17/2025 Encounter Details Date Type Department Care Team ([facility] st Contact Info) Description 11/17/2025 Telephone [facility] MED[facility] [address] [place], [place] [phone] Myah Singh MD [address], [place] [phone] chart prep Social History Tobacco Use Types Packs/Day Years [...] encounter Miscellaneous Notes * Telephone Encounter - Allyn Nur [place] - 11/17/2025 10:53 AM EST Chart Prep Labs: not done Images: done Screenings: Eye Exam and Foot Exam Vaccines due: Covid Due, Hep A Due, Hep B Due, Flu Due, and RSV in Pharmacy Due Referrals: Completed Overdue care gaps: A1C, Glucose, Sbirt, SDOH, PHQ9, GAD7, Disability , and Oral Health documented in this encounter Plan of Treatment [...] documented as of this encounter Care Teams School Fundraising Director Relationship Specialty Start Date End Date Myah Singh MD [address] [place] [address] PCP - General Family Medicine 11/08/12 [facility] 10/31/25 documented as of this encounter
--- NOTE | 2025-11-22 18:48 | ED.GENADULT ---
HPI - General Adult General Chief complaint: General Medical Stated complaint: Fall a month ago Time Seen by Provider: 11/22/25 17:33 Source: patient, family (granddaughter), RN notes reviewed and old records reviewed Mode of arrival: EMS Limitations: no limitations History of Present Illness ED Provider: Michela HPI narrative: 89-year-old female with a history of advanced dementia, diabetes, frequent falls, hypertension, sleep apnea, CVA, chronic kidney disease presents for evaluation of sacral pain. per the patient's granddaughter who cares for her and lives with her, the patient spent 3 months in a nursing facility and was ultimately discharged home on 10/29/2025. the patient has suffered a fall the week prior to that and was found on the ground, this is not witnessed by staff. The patient was not evaluated after the fall as she did not appear to be in any pain. The patient has had worsening pain to her buttocks and tailbone since then pain She does not sit straight up and down pain She leans to her left due to the pain. She has not had any other falls. She occasionally Tylenol for pain. No fevers, chills, cough, nausea vomiting, diarrhea Related Data Home Medications ?Medication ?Instructions ?Recorded ?Confirmed ascorbic acid (vitamin C) 500 mg 500 mg PO BID 11/27/21 08/19/25 tablet (Vitamin C) calcium 600 mg (as 1 tab PO BID 11/27/21 08/19/25 carbonate)-vitamin D3 5 mcg (200 unit) tablet (Calcium 600 + D(3)) ferrous sulfate 325 mg (65 mg 1 tab PO Q OTHER DAY 11/27/21 08/19/25 iron) tablet,delayed release mirtazapine 15 mg tablet 1 tab PO BEDTIME 11/27/21 08/19/25 amlodipine 5 mg tablet 5 mg PO DAILY 01/23/23 08/19/25 aspirin 81 mg tablet,delayed 81 mg PO DAILY 01/23/23 08/19/25 release cetirizine 5 mg tablet 5 mg PO DAILY 01/23/23 08/19/25 fluoxetine 40 mg capsule 40 mg PO BEDTIME 01/23/23 08/19/25 lisinopril 20 mg tablet 20 mg PO DAILY 01/23/23 08/19/25 montelukast 10 mg tablet 10 mg PO BEDTIME 01/23/23 08/19/25 omeprazole 40 mg capsule,delayed 40 mg PO DAILY@0630 01/23/23 08/19/25 release docusate sodium 100 mg capsule 100 mg PO BID 05/24/23 08/19/25 atorvastatin 20 mg tablet 20 mg PO DAILY 07/27/23 08/19/25 mirabegron 50 mg tablet,extended 50 mg PO DAILY 07/10/24 08/19/25 release 24 hr (Myrbetriq) trazodone 50 mg tablet 50 mg PO BEDTIME 11/21/24 08/19/25 Previous Rx's ?Medication ?Instructions ?Recorded sulfamethoxazole 800 1 tab PO BID 5 days #10 tabs 08/06/25 mg-trimethoprim 160 mg tablet (Bactrim DS) walker #1 ea 08/13/25 donepezil 10 mg tablet 10 mg PO DAILY 30 days #30 tabs 08/19/25 haloperidol lactate 2 mg/mL oral 1 mg (0.5 mL) PO BEDTIME 30 days 08/19/25 concentrate #15 mL memantine 10 mg tablet 10 mg PO BID #60 tabs 08/19/25 acetaminophen 500 mg tablet 500 mg PO QID PRN pain #30 tabs 11/22/25 tramadol 50 mg tablet 50 mg PO Q6H PRN pain #12 tabs 11/22/25 Allergies Allergy/AdvReac Type Severity Reaction Status Date / Time ceftazidime (Ceftazidime) Allergy Mild UNKNOWN Verified 11/22/25 17:26 benzocaine (Benzocaine) Allergy Unknown UNKNOWN Verified 11/22/25 17:26 butamben (From Cetacaine) Allergy Unknown UNKNOWN Verified 11/22/25 17:26 metoclopramide (From Reglan) Allergy Unknown UNKNOWN Verified 11/22/25 17:26 morphine (Morphine) Allergy Unknown SWELLING Verified 11/22/25 17:26 tetracaine (From Cetacaine) Allergy Unknown UNKNOWN Verified 11/22/25 17:26 Review of Systems Constitutional: Constitutional: Denies body ache(s), Denies chills, Denies fever(s) and Denies headache(s) Eyes: Eyes: Denies blurry vision ENT: Denies vertigo, Denies dizziness and Denies headache(s) Cardiovascular: Cardiovascular: Denies chest pain Respiratory: Respiratory: Denies cough Gastrointestinal: Gastrointestinal: Denies nausea Musculoskeletal: Musculoskeletal: Reports back pain Integumentary/Breasts: Skin/Breast: Denies rash Neurologic: Denies vertigo, Denies dizziness and Denies headache(s) [facility] Past Medical History Medical History (Updated 11/22/25 @ 19:35 by Srinath Abernathy) Sepsis Cirrhosis of liver DONAVAN (obstructive sleep apnea) Diabetes Allergic dermatitis Hives CVA (cerebral vascular accident) Non-alcoholic micronodular cirrhosis of liver CKD (chronic kidney disease) Dementia Hypertension Surgical History Hx of cholecystectomy No pertinent past surgical history Family History Family History Father No problems noted. Mother No problems noted. Social History Social History Household Members: Unknown / Unable to assess Housing: Unknown / Unable to assess Do you presently have visiting nurse or other home services: No Alcohol intake: current Alcohol intake frequency: does not drink Patient Tobacco Use Status: Former Tobacco user Second Hand Smoke Exposure: No Advance Directives: Yes Advance Directives on File: Yes Advance Directives Date on File: 12/07/21 Do you have a plan to hurt others: No Plan service: No Physical Exam ED Vital Signs: Vital Signs - 24 hr 11/22/25 17:19 Temperature 98.4 F Pulse Rate 72 Respiratory Rate 18 Blood Pressure 130/78 Pulse Oximetry 96 Oxygen Delivery Method Room Air BMI result Body Mass Index 31.9 Const General: comfortable, no acute distress, alert and awake Nutritional Appearance: well nourished [facility] Head: Yes normocephalic and Yes atraumatic Eyes Eyelids: Yes eyelids normal Conjunctivae: conjunctivae normal Sclerae: sclerae normal Corneas: corneas normal Pupils: Equal, round and reactive pupils present EOM: EOMs intact bilaterally Neck Neck: Yes full ROM Resp Effort & Inspection: normal respiratory effort, able to speak in complete sentences and not labored Cardio Rate: regular rate Rhythm: regular rhythm GI Inspection: No distended Palpation (GI): Soft to palpation, not firm, nontender, no guarding and not rigid Back/Spine/Pelvis Other: there was no obvious deformity to the lumbar sacral region. No evidence of pilonidal abscess or cyst. No erythema or edema. The patient is tender to palpation of the lumbosacral region of the cost step-offs or deformities. Skin General skin exam: elasticity normal Neuro Cranial nerves: Yes Equal, round and reactive pupils present and Yes Bilaterally intact EOM present Cognition (Neuro): normal cognition Extrem Other: Moving all extremities well without any obvious deformities Course Reevaluation(s) Reevaluation #1: the patient's x-rays did not show any evidence of fracture. Incidentally was moderate constipation. The patient has had 2 bowel movements today per the patient's granddaughter in his on a stool softener already. I discussed possible rehab placement with the patient's family and they are adamant the patient will be discharged back home. We will treat her pain with Tylenol and tramadol. I discussed possible increased constipation with tramadol. However she was given a dose in the ER and appeared to do quite well with the and was resting comfortably. She will follow up with outpatient providers. I discussed a possible gel cushion or doughnut to help with the sacral pain while sitting Time: 19:32 Medications Administered Discontinued Medications Generic Name Dose Route Start Last Admin Trade Name Thai PRN Reason Stop Dose Admin Acetaminophen 975 mg 11/22/25 17:58 11/22/25 18:43 Acetaminophen 325 Mg Tablet PO 11/22/25 17:59 975 mg ONCE ONE Administration Tramadol HCl 25 mg 11/22/25 17:58 11/22/25 18:43 Tramadol Hcl 50 Mg Tablet PO 11/22/25 17:59 25 mg ONCE ONE Administration Medical Decision Making Medical Decision Making MDM Narrative: 89-year-old female presents for evaluation of sacral pain. The patient has been having worsening pain over last month since the fall at a rehab facility. She is unwilling to sit straight up and down due to the pain. she is moving both her extremities in his able to stand without difficulty. She has no abdominal pain, nausea vomiting or diarrhea. She has not had any fevers or chills. the patient's family is trying to get imaging of the area to evaluate for a fractured tailbone. They tried to do it as an outpatient but we are unable to do so. we had an x-ray of the lumbar spine and sacrum. There was no evidence of abscess or pilonidal cyst causing her pain. Differential Diagnosis Differential Diagnoses: The differential diagnosis associated with the presentation includes Contusion Coccyx pain Fractured sacrum Pilonidal abscess Discharge Plan Discharge Clinical Impression: Pain in sacrum Patient Disposition: Home, Self-Care Instructions: Sacroiliitis (ED) Additional Instructions: your x-rays did not show any obvious fractures. you may want to try a gel cushion or inflatable donut to help carbon sit comfortably Incidentally was moderate constipation. Continue your bowel regimen for stool softeners. You may use Tylenol for pain pain Use tramadol for more severe, breakthrough pain. This may make you drowsy, do not drink alcohol or drive after taking it follow-up with your primary doctor, return for new or worsening symptoms Prescriptions: New acetaminophen 500 mg tablet 500 mg PO QID PRN (Reason: pain) Qty: 30 0RF tramadol 50 mg tablet 50 mg PO Q6H PRN (Reason: pain) Qty: 12 0RF No Action calcium carbonate-vitamin D3 [Calcium 600 + D(3)] 600 mg-5 mcg (200 unit) tablet 1 tab PO BID ascorbic acid (vitamin C) [Vitamin C] 500 mg tablet 500 mg PO BID mirtazapine 15 mg tablet 1 tab PO BEDTIME ferrous sulfate 325 mg (65 mg iron) tablet,delayed release (DR/EC) 1 tab PO Q OTHER DAY fluoxetine 40 mg capsule 40 mg PO BEDTIME montelukast 10 mg tablet 10 mg PO BEDTIME lisinopril 20 mg tablet 20 mg PO DAILY amlodipine 5 mg tablet 5 mg PO DAILY aspirin 81 mg tablet,delayed release (DR/EC) 81 mg PO DAILY cetirizine 5 mg tablet 5 mg PO DAILY omeprazole 40 mg capsule,delayed release(DR/EC) 40 mg PO DAILY@0630 sulfamethoxazole-trimethoprim [Bactrim DS] 800-160 mg tablet 1 tab PO BID 5 Days Qty: 10 0RF mirabegron [Myrbetriq] 50 mg tablet extended release 24 hr 50 mg PO DAILY trazodone 50 mg tablet 50 mg PO BEDTIME docusate sodium 100 mg capsule 100 mg PO BID atorvastatin 20 mg tablet 20 mg PO DAILY (DME) armin Misc See Rx Instructions .MEDSUPPLY Qty: 1 0RF Rx Instructions: Forearm bearing walker memantine 10 mg tablet 10 mg PO BID Qty: 60 8RF haloperidol lactate 2 mg/mL concentrate 1 mg PO BEDTIME 30 Days Qty: 15 5RF donepezil 10 mg tablet 10 mg PO DAILY 30 Days Qty: 30 8RF Print Language: Kinyarwanda
--- OUTSIDE RECORDS SUMMARY | 2025-12-28 19:00 | XMS_ITS | Clinical Summary ---
Author Organization Unknown Care Team Providers Care Safety Belt Installer Name Role Phone TERELL GARCIA, TU Unavailable Unavailable NARINDER LOREDO, PATRICE Unavailable Unavailable Payers Payer Name Policy Type Policy Number Effective Date Expira tion Date [facility] [id number] MEDICAID [facility] [id number] MEDICARE - [facility] - [place] [id number] Problems Condition Name Condition Details Condition Category Status Onset Date Resolution Date Last Treatment Date Treating Clinician Comments MAJOR DEPRESSIVE DISORDER, RECURRENT, UNSPECIFIED Active 08-08 00:00: 00 UNSP FRACTURE OF THE LOWER END OF RIGHT RADIUS, INIT Active 08-08 00:00: 00 DEM IN OTHER DIS CLASSD ELSWHR, UNSP SEV, WITH MOOD DISTRB Active 2024-11 00:00: 00 ESSENTIAL (PRIMARY) HYPERTENSION Active 2024-11 00:00: 00 TYPE 2 DIABETES MELLITUS W DIABETIC CHRONIC KIDNEY DISEASE Active 2024-11 00:00: 00 CHRONIC KIDNEY DISEASE, UNSPECIFIED Active 2024-11 00:00: 00 Allergies, Adverse Reactions, Alerts Allergy Name Allergy Type Status Severity Reaction(s) Onset Date Inactive Date Treating Clinician Comments TETRACAINE Propensity to adverse reactions Active 2024-11 20:00: 37 METOCLOPRAMI DE Propensity to adverse reactions Active 2024-11 20:01: 08 CEFTAZIDIME Propensity to adverse reactions Active 2024-11 20:02: 04 MORPHINE Propensity to adverse reactions Active 2024-11 20:02: 18 BUTAMBEN Propensity to adverse reactions Active 2024-11 20:02: 35 BENZOCAINE Propensity to adverse reactions Active 2024-11 20:03: 12 Medications Ordered Medication Name Filled Medication Name Start Date Stop Date Current Medication? Ordering Clinician Indication Dosage Frequency Signature (SIG) Comments Components aspirin 81 mg tablet 2024-11 00:00: 00 Yes [id number] 1 tablet DAILY 1 tablet DAILY (route: oral) Med Classific ation: Hematolog ical Agents cetirizine 5 mg tablet 2024-11 00:00: 00 Yes [id number] 1 tablet DAILY 1 tablet DAILY (route: oral) Med Classific ation: Respirato ry Therapy Agents memantine 10 mg tablet 2024-11 00:00: 00 Yes [id number] 1 tablet 2 TIMES DAILY 1 tablet 2 TIMES DAILY (route: oral) Med Classific ation: Cognitive Disorder Therapy omeprazole 40 mg capsule,del ayed release 2024-11 00:00: 00 Yes [id number] 40 mg DAILY 40 mg DAILY (route: oral) Med Classific ation: Gastroint estinal Therapy Agents OneVite Calcium-D3 600 mg-5 mcg (200 unit) tablet 2024-11 00:00: 00 Yes [id number] 1 tablet 2 TIMES DAILY 1 tablet 2 TIMES DAILY (route: oral) Med Classific ation: Electroly te Balance-N utritiona l Products Vitamin C 500 mg tablet 2024-11 00:00: 00 Yes [id number] 500 mg 2 TIMES A WEEK 500 mg 2 TIMES A WEEK (route: oral) Med Classific ation: Electroly te Balance-N utritiona l Products Aricept 10 mg tablet 2024-11 00:00: 00 Yes [id number] 1 tablet EVERY PM 1 tablet EVERY PM (route: oral) Med Classific ation: Cognitive Disorder Therapy Colace 100 mg capsule 2024-11 00:00: 00 Yes [id number] 1 capsule 2 TIMES DAILY 1 capsule 2 TIMES DAILY (route: oral) Med Classific ation: Gastroint estinal Therapy Agents montelukast 10 mg tablet 2024-11 00:00: 00 Yes [id number] 1 tablet EVERY PM 1 tablet EVERY PM (route: oral) Med Classific ation: Respirato ry Therapy Agents Immunizations Ordered Immunization Name Filled Immunization Name Date Status Comments Refusal Reason INFLUENZA, TIV (INACTIVATED) 2025-08-28 00:00:00 Vital Signs Vital Name Observation Time Observation Value Commen ts Temperature 2025-11-18 12:29:00.000 98.4 [degF] Temperature 2025-11-14 18:31:00.000 98.4 [degF] Temperature 2025-11-13 14:32:00.000 97.6 [degF] Temperature 2025-11-11 10:56:00.000 97 [degF] Temperature 2025-11-06 10:44:00.000 97.1 [degF] Temperature 2025-11-04 11:33:00.000 97 [degF] Temperature 2025-10-31 11:33:00.000 97.2 [degF] BMI (%) 2025-10-31 11:33:00.000 9 kg/m2 Height 2025-10-31 11:33:00.000 120 [in_us] Pulse 2025-11-14 18:31:00.000 68 /min Pulse 2025-11-13 14:32:00.000 68 /min Pulse 2025-11-11 10:56:00.000 70 /min Pulse 2025-11-06 10:44:00.000 74 /min Pulse 2025-11-04 11:33:00.000 74 /min Pulse 2025-10-31 11:33:00.000 86 /min Respirations 2025-11-18 12:29:00.000 18 /min Respirations 2025-11-14 18:31:00.000 18 /min Respirations 2025-11-13 14:32:00.000 18 /min Respirations 2025-11-11 10:56:00.000 18 /min Respirations 2025-11-06 10:44:00.000 16 /min Respirations 2025-11-04 11:33:00.000 18 /min Respirations 2025-10-31 11:33:00.000 18 /min Weight (lbs) 2025-10-31 11:33:00.000 188 [lb_av] Systolic Blood Pressure 2025-11-18 12:29:00.000 134 mm [Hg] Systolic Blood Pressure 2025-11-14 18:31:00.000 118 mm [Hg] Systolic Blood Pressure 2025-11-13 14:32:00.000 122 mm [Hg] Systolic Blood Pressure 2025-11-11 10:56:00.000 117 mm [Hg] Systolic Blood Pressure 2025-11-06 10:44:00.000 125 mm [Hg] Systolic Blood Pressure 2025-11-04 11:33:00.000 116 mm [Hg] Systolic Blood Pressure 2025-10-31 11:33:00.000 114 mm [Hg] Diastolic Blood Pressure 2025-11-18 12:29:00.000 88 mm [Hg] Diastolic Blood Pressure 2025-11-14 18:31:00.000 68 mm [Hg] Diastolic Blood Pressure 2025-11-13 14:32:00.000 72 mm [Hg] Diastolic Blood Pressure 2025-11-11 10:56:00.000 52 mm [Hg] Diastolic Blood Pressure 2025-11-06 10:44:00.000 71 mm [Hg] Diastolic Blood Pressure 2025-11-04 11:33:00.000 60 mm [Hg] Diastolic Blood Pressure 2025-10-31 11:33:00.000 56 mm [Hg] Plan of Treatment Planned Activity Planned Date Details Comments Future Scheduled Test SKILLED NU RSE TO EVALUATE PATIENT, IDENTIFY PRIMARY AND CO-MORBID CONDITIONS CODED PER CODING GUIDELINES, AND DEVELOP PATIENT SPECIFIC PLAN OF CARE THAT INCLUDES PATIENT GOAL FOR HOME HEALTH. PLAN OF CARE TO INCLUDE 3 PRN VISIT(S) FOR OASIS DATA COLLECTION/COMPREHENSIVE ASSESSMENT AT TIMEPOINTS PER FEDERAL REGULATIONS. THIS INCLUDES VISITS FOR EMMANUEL, RECERT, SCIC, AND/OR DC. [code = SKILLED NURSE TO EVALUATE PATIENT, IDENTIFY PRIMARY AND CO-MORBID CONDITIONS CODED PER CODING GUIDELINES, AND DEVELOP PATIENT SPECIFIC PLAN OF CARE THAT INCLUDES PATIENT GOAL FOR HOME HEALTH. PLAN OF CARE TO INCLUDE 3 PRN VISIT(S) FOR OASIS DATA COLLECTION/COMPREHENSIVE ASSESSMENT AT TIMEPOINTS PER FEDERAL REGULATIONS. THIS INCLUDES VISITS FOR EMMANUEL, RECERT, SCIC, AND/OR DC.] Future Scheduled Test SKILLED NU RSE TO O/A OF PATIENTS MENTAL/BEHAVIORAL STATUS, ASSESS VITAL SIGNS QSNV ALLOW 2 PRNS FOR MEDICATION MANAGEMENT. [code = SKILLED NURSE TO O/A OF PATIENTS MENTAL/BEHAVIORAL STATUS, ASSESS VITAL SIGNS QSNV ALLOW 2 PRNS FOR MEDICATION MANAGEMENT.] Future Scheduled Test SKILLED NU RSE FOR O/A OF GENERAL HEALTH STATUS OF PAIN, CARDIAC, RESPIRATORY, GASTROINTESTINAL, GENITOURINARY, SKIN, NEUROLOGIC, ENDOCRINE SYSTEMS TO IDENTIFY CHANGES ASSOCIATED WITH EXACERBATION FOR EARLY INTERVENTION OF COMPLICATIONS QSNV [code = SKILLED NURSE FOR O/A OF GENERAL HEALTH STATUS OF PAIN, CARDIAC, RESPIRATORY, GASTROINTESTINAL, GENITOURINARY, SKIN, NEUROLOGIC, ENDOCRINE SYSTEMS TO IDENTIFY CHANGES ASSOCIATED WITH EXACERBATION FOR EARLY INTERVENTION OF COMPLICATIONS QSNV] Future Scheduled Test SKILLED NU RSE FOR O/A AND SKILLED TEACHING RELATED TO MANAGEMENT OF DEPRESSIVE SYMPTOMS AND/OR DEPRESSION. SN TO REPORT SIGNIFICANT CHANGE IN DEPRESSIVE SYMPTOMS TO CLINICAL PROVIDER FOR EARLY INTERVENTION. [code = SKILLED NURSE FOR O/A AND SKILLED TEACHING RELATED TO MANAGEMENT OF DEPRESSIVE SYMPTOMS AND/OR DEPRESSION. SN TO REPORT SIGNIFICANT CHANGE IN DEPRESSIVE SYMPTOMS TO CLINICAL PROVIDER FOR EARLY INTERVENTION.] Future Scheduled Test SKILLED NU RSE FOR O/A AND TEACHING OF DIABETIC MANAGEMENT INCLUDING BLOOD SUGAR MONITORING/USE OF GLUCOMETER, DIABETIC DIET, LOWER EXTREMITY SKIN INSPECTION, PROPER SKIN/FOOT CARE, AND SIGNS AND SYMPTOMS HYPO/HYPERGLYCEMIA TO REPORT. [code = SKILLED NURSE FOR O/A AND TEACHING OF DIABETIC MANAGEMENT INCLUDING BLOOD SUGAR MONITORING/USE OF GLUCOMETER, DIABETIC DIET, LOWER EXTREMITY SKIN INSPECTION, PROPER SKIN/FOOT CARE, AND SIGNS AND SYMPTOMS HYPO/HYPERGLYCEMIA TO REPORT.] Future Scheduled Test SKILLED NU RSE FOR O/A, TEACHING, AND MANAGEMENT OF HTN [code = SKILLED NURSE FOR O/A, TEACHING, AND MANAGEMENT OF HTN] Future Scheduled Test SKILLED NU RSE TO PROVIDE TEACHING ON SIGNS AND SYMPTOMS AND MANAGEMENT OF HYPERTENSION. [code = SKILLED NURSE TO PROVIDE TEACHING ON SIGNS AND SYMPTOMS AND MANAGEMENT OF HYPERTENSION.] Future Scheduled Test SKILLED NU RSE TO PERFORM HOME SAFETY AND FALL ASSESSMENT AND PROVIDE INSTRUCTION TO IMPLEMENT HOME SAFETY AND FALL PREVENTION STRATEGIES. [code = SKILLED NURSE TO PERFORM HOME SAFETY AND FALL ASSESSMENT AND PROVIDE INSTRUCTION TO IMPLEMENT HOME SAFETY AND FALL PREVENTION STRATEGIES.] Future Scheduled Test SKILLED NU RSE FOR OBSERVATION AND ASSESSMENT OF PATIENT S PAIN LEVEL AND EFFECTIVENESS OF PAIN MANAGEMENT REGIMEN. SKILLED NURSE TO INSTRUCT PATIENT/CAREGIVER REGARDING PHARMACOLOGIC AND NON-PHARMACOLOGIC PAIN CONTROL MEASURES. SKILLED NURSE TO REPORT TO PHYSICIAN IF PAIN IS UNCONTROLLED WITH CURRENT PAIN MANAGEMENT REGIMEN. [code = SKILLED NURSE FOR OBSERVATION AND ASSESSMENT OF PATIENT S PAIN LEVEL AND EFFECTIVENESS OF PAIN MANAGEMENT REGIMEN. SKILLED NURSE TO INSTRUCT PATIENT/CAREGIVER REGARDING PHARMACOLOGIC AND NON-PHARMACOLOGIC PAIN CONTROL MEASURES. SKILLED NURSE TO REPORT TO PHYSICIAN IF PAIN IS UNCONTROLLED WITH CURRENT PAIN MANAGEMENT REGIMEN.] Future Scheduled Test SKILLED NU RSE TO ASSESS PATIENT'S SKIN INTEGRITY AND INSTRUCT PATIENT/CAREGIVER ON MEASURES TO PREVENT PRESSURE ULCERS. [code = SKILLED NURSE TO ASSESS PATIENT'S SKIN INTEGRITY AND INSTRUCT PATIENT/CAREGIVER ON MEASURES TO PREVENT PRESSURE ULCERS.] Future Scheduled Test PHYSICAL T HERAPIST TO EVALUATE PATIENT FOR EVALUATION [code = PHYSICAL THERAPIST TO EVALUATE PATIENT FOR EVALUATION] Future Scheduled Test OCCUPATION AL THERAPIST TO EVALUATE PATIENT FOR EVALUATION [code = OCCUPATIONAL THERAPIST TO EVALUATE PATIENT FOR EVALUATION] Future Scheduled Test SKILLED NU RSE TO PROVIDE TEACHING/REINFORCEMENT RELATED TO URINARY INCONTINENCE. [code = SKILLED NURSE TO PROVIDE TEACHING/REINFORCEMENT RELATED TO URINARY INCONTINENCE.] Future Scheduled Test SKILLED NU RSE FOR O/A, TEACHING RELATED TO CONSTIPATION EXACERBATION OF DISEASE PROCESS. [code = SKILLED NURSE FOR O/A, TEACHING RELATED TO CONSTIPATION EXACERBATION OF DISEASE PROCESS.] Future Scheduled Test PATIENT MCCRAY S A RISK OF HOSPITALIZATION AND ED USE. SKILLED NURSE TO ESTABLISH SUPPORT MEASURES TO MINIMIZE RISK OF HOSPITALIZATION AND ED USE, AND INSTRUCT PATIENT/CAREGIVER ON METHODS TO REDUCE AVOIDABLE HOSPITALIZATION AND ED USE. [code = PATIENT HAS A RISK OF HOSPITALIZATION AND ED USE. SKILLED NURSE TO ESTABLISH SUPPORT MEASURES TO MINIMIZE RISK OF HOSPITALIZATION AND ED USE, AND INSTRUCT PATIENT/CAREGIVER ON METHODS TO REDUCE AVOIDABLE HOSPITALIZATION AND ED USE.] Future Scheduled Test SKILLED NU RSE TO REVIEW PATIENT MEDICATIONS. INSTRUCT PATIENT/CAREGIVER ON MONITORING OF EFFECTIVENESS, ADVERSE DRUG REACTIONS, SIDE EFFECTS OF ALL MEDICATIONS (PRESCRIPTION/-OTC), AND HOW AND WHEN TO REPORT PROBLEMS. [code = SKILLED NURSE TO REVIEW PATIENT MEDICATIONS. INSTRUCT PATIENT/CAREGIVER ON MONITORING OF EFFECTIVENESS, ADVERSE DRUG REACTIONS, SIDE EFFECTS OF ALL MEDICATIONS (PRESCRIPTION/-OTC), AND HOW AND WHEN TO REPORT PROBLEMS.] Future Scheduled Test SKILLED NU RSE TO ASSESS PATIENT S PSYCHOSOCIAL STATUS TO IDENTIFY POTENTIAL ISSUES THAT MAY COMPLICATE THE PROVISION OF THE PLAN OF CARE INCLUDING THE PATIENT S ABILITY TO ACCESS COMMUNITY RESOURCES AND PSYCHOSOCIAL SUPPORT SERVICES. [code = SKILLED NURSE TO ASSESS PATIENT S PSYCHOSOCIAL STATUS TO IDENTIFY POTENTIAL ISSUES THAT MAY COMPLICATE THE PROVISION OF THE PLAN OF CARE INCLUDING THE PATIENT S ABILITY TO ACCESS COMMUNITY RESOURCES AND PSYCHOSOCIAL SUPPORT SERVICES.] Future Scheduled Test SN TO INST RUCT CAREGIVER ON MANAGEMENT OF DEMENTIA UTILIZING THE [facility] SPECIALTY PROGRAM. [code = SN TO INSTRUCT CAREGIVER ON MANAGEMENT OF DEMENTIA UTILIZING THE [facility] SPECIAL[facility] PROGRAM.] Future Scheduled Test SKILLED NU RSE TO PROVIDE INSTRUCTION TO PATIENT/CAREGIVER RELATED TO DISCHARGE PLANNING. [code = SKILLED NURSE TO PROVIDE INSTRUCTION TO PATIENT/CAREGIVER RELATED TO DISCHARGE PLANNING.] Future Scheduled Test SKILLED NU RSE FOR O/A AND TEACHING OF DIABETIC MANAGEMENT INCLUDING SPECIFY DIABETIC DIET, LOWER EXTREMITY SKIN INSPECTION, PROPER SKIN/FOOT CARE, SIGNS AND SYMPTOMS HYPO/HYPERGLYCEMIA TO REPORT AND METHODS TO MANAGE. PHYSICIAN TO MONITOR A1C WITH VISITS AND ADJUST MEDICATIONS ACCORDINGLY DUE TO BLOOD SUGARS NOT BEING MONITORED IN THE HOME. [code = SKILLED NURSE FOR O/A AND TEACHING OF DIABETIC MANAGEMENT INCLUDING SPECIFY DIABETIC DIET, LOWER EXTREMITY SKIN INSPECTION, PROPER SKIN/FOOT CARE, SIGNS AND SYMPTOMS HYPO/HYPERGLYCEMIA TO REPORT AND METHODS TO MANAGE. PHYSICIAN TO MONITOR A1C WITH VISITS AND ADJUST MEDICATIONS ACCORDINGLY DUE TO BLOOD SUGARS NOT BEING MONITORED IN THE HOME.] Goal Patient Goal - P T IS UNABLE TO ESTABLISH GOAL Goal Provider Goal - A PLAN OF CARE WILL BE ESTABLISHED THAT MEETS PATIENT'S LONG TERM NEEDS AND INCLUDES PATIENT GOAL FOR HOME HEALTH. Goal Provider Goal - ALTERED MENTAL/BEHAVIORAL STATUS WILL BE IDENTIFIED PROMPTLY AND INTERVENTION INITIATED QUICKLY TO MINIMIZE ASSOCIATED RISKS THROUGHOUT CERTIFICATION PERIOD. Goal Provider Goal - CHANGE IN GENERAL HEALTH STATUS WILL BE IDENTIFIED AND REPORTED TO PHYSICIAN FOR PROMPT INTERVENTION TO MINIMIZE ASSOCIATED RISKS THROUGHOUT CERTIFICATION PERIOD. Goal Provider Goal - PATIENT WILL REMAIN SAFE WITHOUT DECOMPENSATION IN DEPRESSIVE CONDITION, WHILE MAINTAINING OPTIMAL LEVEL OF MENTAL HEALTH AND WELL BEING THROUGHOUT CERTIFICATION PERIOD. Goal Provider Goal - PATIENT/CAREGIVER WILL VERBALIZE/DEMONSTRATE KNOWLEDGE OF DIABETIC MANAGEMENT. CHANGES IN DIABETIC STATUS WILL BE IDENTIFIED AND REPORTED TO PHYSICIAN FOR PROMPT INTERVENTION THROUGHOUT THE CERTIFICATION PERIOD. Goal Provider Goal - PATIENT/CAREGIVER WILL VERBALIZE/DEMONSTRATE MANAGEMENT OF HTN CARDIAC DISEASE PROCESS AND EXACERBATIONS WILL BE IDENTIFIED AND PROMPTLY REPORTED THROUGHOUT THE CERTIFICATION PERIOD. Goal Provider Goal - PATIENT/CAREGIVER WILL VERBALIZE SIGNS AND SYMPTOMS OF HYPERTENSION AND WILL BE ABLE TO DEMONSTRATE ABILITY TO MANAGE EXACERBATION BY END OF THE EPISODE. Goal Provider Goal - PATIENT/CAREGIVER WILL VERBALIZE/DEMONSTRATE EFFECTIVE HOME SAFETY AND FALL PREVENTION STRATEGIES THROUGHOUT CERTIFICATION PERIOD. Goal Provider Goal - PATIENT/CAREGIVER WILL DEMONSTRATE UNDERSTANDING OF PHARMACOLOGIC AND NONPHARMACOLOGIC PAIN CONTROL MEASURES AND PATIENT WILL HAVE IMPROVEMENT IN PAIN INTERFERING WITH ACTIVITY EVIDENCED BY PAIN AT A LEVEL THAT IS ACCEPTABLE TO THE PATIENT AND PAIN LEVEL WITHIN ESTABLISHED PARAMETERS BY END OF CERTIFICATION PERIOD. Goal Provider Goal - PATIENT/CAREGIVER WILL VERBALIZE UNDERSTANDING OF PRESSURE ULCER PREVENTION BY END OF THE EPISODE. Goal Provider Goal - A PHYSICAL THERAPY EVALUATION TO BE COMPLETED WITH RECOMMENDATIONS AND/OR WRITTEN PLAN OF TREATMENT ESTABLISHED FOR PHYSICIAN S SIGNATURE. Goal Provider Goal - OCCUPATIONAL THERAPY EVALUATION TO BE COMPLETED WITH RECOMMENDATIONS AND WRITTEN PLAN OF TREATMENT ESTABLISHED FOR THE PHYSICIAN S SIGNATURE. Goal Provider Goal - PATIENT / CAREGIVER WILL VERBALIZE UNDERSTANDING OF EFFECTS OF URINARY INCONTINENCE BY THE END OF THE CERTIFICATION PERIOD. Goal Provider Goal - EXACERBATIONS OF CONSTIPATION GASTROINTESTINAL DISEASE WILL BE PROMPTLY IDENTIFIED AND INTERVENTIONS IMPLEMENTED TO MINIMIZE RISKS TO PATIENT BY END OF EPISODE. Goal Provider Goal - PATIENT WILL HAVE SUPPORT MEASURES ESTABLISHED TO PREVENT HOSPITALIZATION AND ED USE AND PATIENT/CAREGIVER WILL VERBALIZE/DEMONSTRATE METHODS TO REDUCE AVOIDABLE HOSPITALIZATION AND ED USE BY END OF EPISODE. Goal Provider Goal - PATIENT/CAREGIVER WILL VERBALIZE UNDERSTANDING OF EDUCATION PROVIDED ON MEDICATIONS BY THE END OF THE CERTIFICATION PERIOD. Goal Provider Goal - PSYCHOSOCIAL NEEDS WILL BE IDENTIFIED AND PLAN IMPLEMENTED TO MINIMIZE RISK THROUGHOUT CERTIFICATION PERIOD. Goal Provider Goal - CAREGIVER WILL DEMONSTRATE MANAGEMENT AND UNDERSTANDING OF DEMENTIA A RESULT OF PARTICIPATION IN THE [facility] CARE SPECIALTY PROGRAM. Goal Provider Goal - PATIENT/CAREGIVER WILL VERBALIZE UNDERSTANDING OF DISCHARGE PLANNING INSTRUCTIONS BY DATE OF DISCHARGE. Goal Provider Goal - PATIENT/CAREGIVER WILL VERBALIZE/DEMONSTRATE KNOWLEDGE OF DIABETIC MANAGEMENT. CHANGES IN DIABETIC STATUS WILL BE IDENTIFIED AND REPORTED TO PHYSICIAN FOR PROMPT INTERVENTION THROUGHOUT THE CERTIFICATION PERIOD. Encounters Start Date/Time End Date/Time Encounter Type Admission Type Attending [facility] Care Department Encounter ID Discharge Date Discharge Status Discharge Condition Discharge Reason Percent Goals Met 2025-10-31 00:00:00 2025-12-29 00:00:00 Outpatient NEW ADMISSION PATRICE BARCENAS [facility] [id number] 4.35
== END 2025-11-22 20:17 | disposition home or self-care (01) ==
PROVIDERS: Emergency Provider Student in an Organized Health Care Education/Training Program; PCP Family Medicine
DX: M53.3 Sacrococcygeal disorders, not elsewhere classified (principal); R29.6 Repeated falls; Z91.81 History of falling; E11.22 Type 2 diabetes mellitus with diabetic chronic kidney disease; I12.9 Hypertensive chronic kidney disease with stage 1 through stage 4 chronic kidney disease, or unspecified chronic kidney disease; N18.9 Chronic kidney disease, unspecified; G30.9 Alzheimer's disease, unspecified; Z87.891 Personal history of nicotine dependence; Z79.899 Other long term (current) drug therapy; Z86.73 Personal history of transient ischemic attack (TIA), and cerebral infarction without residual deficits
CPT/HCPCS: 72100; 72220; 99282; 99283

== ENCOUNTER → 2025-11-22 17:57 | Outpatient (BNV) | payer OTHER, SELFPAY | PROVIDERS: Emergency Provider Student in an Organized Health Care Education/Training Program; PCP Family Medicine; Visit Provider Radiology Diagnostic Radiology | DX: Z04.3 Encounter for examination and observation following other accident (principal); I70.0 Atherosclerosis of aorta; M85.88 Other specified disorders of bone density and structure, other site | CPT/HCPCS: 72100; 72220 ==